=== PATIENT | female | born 1985 | race African-American/Black ===

== ENCOUNTER 2023-05-13 11:22 | Outpatient (OUT) | payer OTHER, SELFPAY ==
[2023-05-13 12:17] LABS: Estimated Average Glucose 189 mg/dL; Glycohemoglobin A1C 8.2 % (4.5-6.2)
== END 2023-05-13 11:23 ==
PROVIDERS: PCP Obstetrics & Gynecology; Visit Provider Obstetrics & Gynecology
DX: E11.628 Type 2 diabetes mellitus with other skin complications (principal)
CPT/HCPCS: 36415; 83036

== ENCOUNTER 2023-08-21 10:51 | Outpatient (OUT) | payer OTHER, SELFPAY ==
[2023-08-21 12:33] LABS: Hematocrit 37.4 % (36.0-48.0); Hemoglobin 12.4 g/dL (12.0-16.0); Mean Corpuscular HGB Conc 33.2 g/dL (29.9-35.2); Mean Corpuscular Volume 90.3 fL (81.0-99.0); Mean Platelet Volume 9.6 fL (9.5-13.5); Platelet Count 376 10^3/uL (150-450); Red Blood Count 4.14 10^6/uL (4.20-5.40); Red Cell Distribution Width 13.2 % (11.0-15.0); White Blood Count 11.2 10^3/uL (4.0-11.0)
[2023-08-21 12:39] LABS: Partial Thromboplastin Time 28.8 sec (22.3-36.2); Prothrombin Time 9.6 sec (9.0-11.6)
[2023-08-21 12:45] LABS: INR <0.93
[2023-08-21 12:52] LABS: Eosinophils Absolute Manual 0.11 10^3/uL (0.00-0.70); Monocytes Absolute Manual 0.89 10^3/uL (0.30-0.80); Segmented Neut Absolute Manual 6.16 10^3/uL (1.4-6.5)
[2023-08-21 12:53] LABS: Basophils Abs Manual 0.22 10^3/uL (0.00-0.10)
[2023-08-21 14:01] LABS: Estimated Average Glucose 177 mg/dL; Glycohemoglobin A1C 7.8 % (4.5-6.2)
[2023-08-21 14:11] LABS: Alanine Aminotransferase 25 U/L (14-59); Albumin Globulin Ratio 0.8; Albumin Level 3.4 g/dL (3.4-5.0); Alkaline Phosphatase 83 U/L (46-116); Anion Gap 16.6; Aspartate Amino Transferase 12 U/L (15-37); BUN Creatinine Ratio 18.8; Bilirubin Direct <0.1 mg/dL (0.0-0.2); Bilirubin Total <0.1 mg/dL (0.2-1.0); Carbon Dioxide 21.4 mmol/L (21.0-32.0); Chloride 103 mmol/L (98-107); Estimated GFR (African America >60 (>=60); Estimated GFR (Non-African Ame >60 (>=60); Globulin 4.1 g/dL; Glucose 140 mg/dL (74-106); Sodium 137 mmol/L (136-145); Total Protein 7.5 g/dL (6.4-8.2)
== END 2023-08-21 10:52 | disposition home or self-care (01) ==
PROVIDERS: PCP Physician Assistant; Visit Provider Obstetrics & Gynecology
DX: Z01.812 Encounter for preprocedural laboratory examination (principal); N92.1 Excessive and frequent menstruation with irregular cycle; R10.2 Pelvic and perineal pain; Z98.890 Other specified postprocedural states
CPT/HCPCS: 80048; 80076; 83036; 85027; 85610; 85730; 86850; 86900; 86901

== ENCOUNTER 2023-08-28 06:02 | Day surgery (SDC) | payer OTHER, SELFPAY ==
[2023-08-21 11:42] VITALS: BP 125/85; PULSE 87; RESP 16; TEMP 36.2; O2SAT 100; BMI 37.8
[2023-08-28] VITALS (21 sets, daily range): BP systolic 122–175; BP diastolic 67–140; PULSE 85–107; RESP 13–29; TEMP 36.2–37.1; O2SAT 92–98; BMI 36.1
[2023-08-28 06:14] LABS: Hematocrit 37.7 % (36.0-48.0); Hemoglobin 12.8 g/dL (12.0-16.0); Mean Corpuscular Volume 88.5 fL (81.0-99.0); Mean Platelet Volume 9.5 fL (9.5-13.5); Platelet Count 392 10^3/uL (150-450); Red Blood Count 4.26 10^6/uL (4.20-5.40); Red Cell Distribution Width 13.1 % (11.0-15.0); White Blood Count 11.3 10^3/uL (4.0-11.0)
[2023-08-28 06:26] LABS: Lymphocytes Absolute Manual 3.27 10^3/uL (1.20-3.80); Monocytes Absolute Manual 0.22 10^3/uL (0.30-0.80); Segmented Neut Absolute Manual 6.78 10^3/uL (1.4-6.5)
[2023-08-28 06:34] LABS: HCG Quantitative <1 mIU/mL
[2023-08-28 06:39] LABS: Glucometer 184 mg/dL (74-106)
[2023-08-28] MEDS: LACTATED RINGER'S SOLUTION 1,000 ML 50 ML IV (06:44)
[2023-08-28] MEDS: CEFAZOLIN SODIUM/DEXTROSE,ISO 2 GM/50 ML PIGGYBACK IV ×3 (07:28→19:59)
[2023-08-28] MEDS: LACTATED RINGER'S SOLUTION 1,000 ML 1000 ML IV (09:55)
--- NOTE | 2023-08-28 09:57 | P.ON_ITS ---
Brief Operative Note Date of procedure: 08/28/23 Pre-op diagnosis: menorrhagia, dysmenorrhea, dyspareunia, pelvic pain Post-op diagnosis: same as pre-op Procedure: NAME OF PROCEDURE: ? Robotic assisted laparoscopic hysterectomy with cystoscopy, bilateral salpingectomy PROCEDURE:? The patient was taken back to the operating room, where she was prepped and draped in the normal sterile fashion after being placed in the dorsal lithotomy position.? Patient?s anesthesia was found to be adequate.? Surgical timeout was performed using two patient identifiers.? SCDs were on and in place.? Two grams of Ancef were given prior to the surgery.? Sterile Weiss catheter was inserted.? Standard size VCare was secured to the uterine cervix and the surgeon changed gloves.? Attention then was turned to the patient's abdomen, where a supraumbilical incision was then made.? Two S retractors were used to identify the patient?s fascia.? The fascia was then tented up using Jorge clamps and the patient?s fascia was incised sharply.? Patient?s abdomen was identified and entered bluntly.? The patient had the trocar placed and a pneumoperitoneum was obtained.? Approximately 4 liters of CO2 gas was used.? The camera was then placed through the trocar.? At this time, two robot trocars were placed in the patient?s left and right side, two hand widths from the midline, and this was placed under direct visualization.? The patient?s tube on the right side was tented up and the vessel sealer was then used to come across the mesosalpinx, and this was carried down to the uterine ovarian ligament.? The vessel sealer was carried down serially to the broad ligament, to the area of the bladder flap, which was then created anteriorly, and the uterine arteries were skeletonized and sealed using the vessel sealer.? The colpotomy was made using the monopolar cautery on cut, and this was carried circumferentially, posteriorly to anteriorly, until the uterus was amputated.? The specimen was then removed intact through the vagina, without difficulty.? The vagina was then closed using two running V-Loc in a non-lock fashion.? The robot was undocked.? The abdomen was desufflated.? The skin defects were closed using 4-0 Vicryl.? Please note, the fascia was closed using 0 Vicryl.? Sponge, lap and needle counts were correct x2.? Patient was taken to recovery room in stable condition.? The patient was awakened by Anesthesia first.? Patient tolerated procedure well.?Please note cystoscopy was performed,with intact bladder and efflux from both ureters Anesthesia: ERIK Surgeon: Rigoberto Montano Dental Laboratory Manager: eYlena Duffy Estimated blood loss (mL): 200 Pathology: other (uterus and tubes) Condition: stable Disposition: PACU
--- NOTE | 2023-08-28 10:28 | PC.NURSE ---
Patient is snoring has to go to the bathtoom but refuses bedpan.
[2023-08-28] MEDS: HYDROMORPHONE HCL 0.5 MG/0.5 ML SYRINGE IV (10:32)
--- NOTE | 2023-08-28 10:45 | PC.NURSE ---
Anesthesia Dr. Valladares has checked on patient due to high blood pressure and is aware it remains high
--- NOTE | 2023-08-28 10:51 | PC.NURSE ---
147/10 best blood pressure so far post operation slowly inproving.
--- NOTE | 2023-08-28 12:07 | P.CN_ITS ---
Patient seen and examined. Reviewed chart, medical histroy and case d/w NELLIE Saenz. Agree with her treatment plan, documentation. Admitted for obs after hysterectomy. Drowsy and complaining of mild post op pain. BP erratic immediately post op but now fairly reasonable. She is Trulicity and Januvia for T2 DM. Will keep her on sliding scale insulin only. Hydralazine IV as needed for SBP > 160 Exam NAD, morbidly obese. CTA b/l , poor inspiratory effort. Neuro: AAOX 3, drowsy from anesthesia. non focal T2 DM : SSI while inpatient. Hold oral meds. Post op HTN : monitor, Hydralazine as needed. s/p hysterectomy: as per Primary team Consult Note: HPI Data of Consult Consult date: 08/28/23 (566) Requesting Physician: Rigoberto Montano DO Primary Care Provider: Asa Marques Consult Narrative Reason for consult: Post op medical management Narrative: This is a 38-year-old female patient with a past medical history as outlined below who was admitted to observation postoperatively by Dr. Montano after a robotic hysterectomy. We have been consulted for medical management of her diabetes and other chronic medical conditions. The patient is currently resting in bed having just returned from using the commode. She reports moderate abdominal discomfort, but otherwise denies chest pain, shortness of breath, nausea and vomiting or any other acute concerns. She is awake but somewhat somnolent postanesthesia. Vital signs are stable and she is on 1 L nasal cannula with nursing attempting to titrate O2 supplementation off postoperatively. cc:: CC: Rigoberto Montano DO Review of Systems ROS Status of ROS 10 or more systems reviewed and unremarkable except as noted in history and below [facility] Medical History (Updated 08/28/23 @ 13:59 by Letty Sanders NP) Bipolar disorder ?F31.9 - Bipolar disorder, unspecified (ICD-10) Carpal tunnel syndrome ?G56.00 - Carpal tunnel syndrome, unspecified upper limb (ICD-10) Diabetes ?E11.9 - Type 2 diabetes mellitus without complications (ICD-10) Fibromyalgia ?M79.7 - Fibromyalgia (ICD-10) GERD (gastroesophageal reflux disease) ?K21.9 - Gastro-esophageal reflux disease without esophagitis (ICD-10) High cholesterol ?E78.00 - Pure hypercholesterolemia, unspecified (ICD-10) Peripheral edema ?R60.9 - Edema, unspecified (ICD-10) Surgical History (Updated 08/28/23 @ 13:38 by Letty Sanders NP) History of cholecystectomy ?Z90.49 - Acquired absence of other specified parts of digestive tract (ICD- 10) History of colonoscopy ?Z98.890 - Other specified postprocedural states (ICD-10) History of dilation and curettage ?Z98.890 - Other specified postprocedural states (ICD-10) History of esophagogastroduodenoscopy (EGD) ?Z98.890 - Other specified postprocedural states (ICD-10) History of foot surgery ?Z98.890 - Other specified postprocedural states (ICD-10) History of laparoscopy ?Z98.890 - Other specified postprocedural states (ICD-10) History of tubal ligation ?Z98.51 - Tubal ligation status (ICD-10) Family History Other Family history of Alzheimer's disease Family history of COPD (chronic obstructive pulmonary disease) Family history of DVT Family history of Parkinson disease Family history of bleeding or clotting disorder Family history of brain cancer Family history of breast cancer Family history of diabetes mellitus Family history of heart disease Family history of hypertension Family history of lung cancer Social History Within the past year, how often did you have a drink containing alcohol: never Score interpretation: A score less than 3 is consistent with normal alcohol consumption. Smoking status: Current every day smoker What tobacco products do you use: cigarettes Pack-years instructions: Please document either packs per day or cigarettes per day in order for pack years to calculate correctly. If using both packs per day and cigarettes per day, please make sure that they denote the same thing. If they differ, pack- years will calculate based on packs per day. 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 Highest level of school completed/degree received: 9th grade Meds Home Medications and Allergies Home Medications Medication Instructions Recorded Confirmed Type acetaminophen 325 mg capsule 325 mg PO QID 08/21/23 08/28/23 History (Tylenol) albuterol sulfate 90 mcg/actuation 2 puff inhalation Q4H PRN 08/21/23 08/28/23 History aerosol inhaler bronchospasm atorvastatin 10 mg tablet 10 mg PO .evening 08/21/23 08/28/23 History dulaglutide 1.5 mg/0.5 mL 1.5 mg subcut QWEEK 08/21/23 08/28/23 History subcutaneous pen injector (Trulicity) fremanezumab-vfrm 225 mg/1.5 mL 225 mg subcut .monthly 08/21/23 08/28/23 History subcutaneous auto-injector (Ajovy) furosemide 20 mg tablet 20 mg PO QAM 08/21/23 08/28/23 History lidocaine 5 % topical patch 1 patch transdermal Q24H PRN back 08/21/23 08/28/23 History pain megestrol 20 mg tablet 20 mg PO .morning 08/21/23 08/28/23 History montelukast 10 mg tablet 10 mg PO .evening 08/21/23 08/28/23 History norethindrone (contraceptive) 0.35 0.35 mg PO DAILY 08/21/23 08/21/23 History mg tablet (Jencycla) omeprazole 40 mg capsule,delayed 40 mg PO BID 08/21/23 08/28/23 History release potassium chloride 20 mEq 20 meq PO DAILY 08/21/23 08/28/23 History tablet,extended release(part/cryst) risperidone 1 mg tablet 1 mg PO BID 08/21/23 08/28/23 History sitagliptin phosphate 25 mg tablet 25 mg PO DAILY 08/21/23 08/28/23 History (Januvia) sulfamethoxazole 400 1 tab PO BID 08/21/23 08/28/23 History mg-trimethoprim 80 mg tablet (Bactrim) Allergies Allergy/AdvReac Type Severity Reaction Status Date / Time ketorolac Allergy Intermediate Hives Verified 08/21/23 11:22 prednisone AdvReac Severe Irritable Verified 08/21/23 11:33 tramadol [From Ultram] AdvReac Severe Palpitation Verified 08/21/23 11:33 s Exam Constitutional Vital Signs, click to edit/add: Last Vital Signs Temp 98.4 F 08/28/23 11:10 Pulse 100 H 08/28/23 11:10 Resp 20 08/28/23 11:10 BP 122/67 08/28/23 11:10 Pulse Ox 94 L 08/28/23 11:10 O2 Del Method Room Air 08/28/23 11:10 O2 Flow Rate 3 08/28/23 11:02 Common normals: no apparent distress, oriented x3, alert and well nourished General appearance: cooperative Orientation/consciousness: Yes awake HENMT Common normals: normocephalic, head/scalp atraumatic, hearing grossly normal bilaterally, external ears normal, external nose normal and moist oral mucous membranes Head and scalp: normocephalic and atraumatic Face and sinus: normal facial exam Nose: external nose normal External ear: external ears normal Eye Common normals: PERRL, EOMs intact bilaterally, conjunctivae normal and no scleral icterus General eye: normal appearance of both eyes Alignment: alignment normal Eyelid: eyelids normal Conjunctiva: conjunctiva(e) normal Pupil: PERRL Neck & C-Spine Common normals: full ROM, supple and no JVD Chest Common normals: inspection of chest normal Chest: symmetrical chest wall rise Respiratory Common normals: normal respiratory effort, no retractions, no use of accessory muscles and clear to auscultation bilaterally Effort & inspection: able to speak in complete sentences Auscultation: clear to auscultation bilaterally Cardio Common normals: no JVD, regular rate, regular rhythm, S1 normal heart sound, S2 normal heart sound, no gallops, no clicks, no rub and peripheral pulses 2+ throughout Rate: regular rate Rhythm: regular rhythm Heart sounds: S1 normal, S2 normal and murmur (HSM 2/6) Peripheral pulses: pulses 2+ throughout GI Common normals: soft to palpation, no hepatosplenomegaly, no masses and no bruits Auscultation: hypoactive bowel sounds Palpation: soft, tender (Diffuse post-op tenderness) and no hepatosplenomegaly Bladder/kidney exam: bladder normal to palpation Bimanual exam- vagina & uterus: bladder normal to palpation Extremity Common normals: normal capillary refill General: normal exam except as noted and edema (Trace bilat insteps); no clubbing and no cyanosis Neuro [place] Coma Scale: GCS not evaluated Common normals: oriented x3, CN's II-XII intact bilaterally, moves all extremities, no focal motor deficits and no sensory deficits noted Sensorium/orientation: awake and alert Speech: speech normal Motor exam: strength 5/5 throughout Psych Common normals: mental status grossly normal, thought process normal, affect normal and activity/motor behavior normal Thought process: normal thought process Results Labs Labs: Short CBC 08/28/23 Range/Units 06:09 WBC 11.3 H (4.0-11.0) 10^3/uL Hgb 12.8 (12.0-16.0) g/dL Hct 37.7 (36.0-48.0) % Plt Count 392 (150-450) 10^3/uL Pulse Oximetry Attestation: I have reviewed the pertinent pulse oximetry results. Assessment and Plan Assessment and Plan (1) S/P hysterectomy: Assessment and Plan: ACUTE * Robotic assisted hysterectomy per Dr Montano earlier today * All post op orders including IVF, pain control, DVT prophylaxis, wound care deferred to the [facility] service * We have been consulted for medical management of the pt's chronic medical conditions * The pt is medically stable * If the pt is able to be weaned off of O2 supplementation and can urinate post operatively, she is medically stable for d/c once OK with the surgical team (2) Bipolar disorder: Assessment and Plan: CHRONIC * Continue home Risperidone BID and PRN Temazepam (3) Diabetes: Assessment and Plan: CHRONIC * Continue home Trulicity if injection is due while the pt is still in the hospital * ACHS glucometer checks w/ low dose SSI for glucose correction * CC diet, 1800kcal (4) GERD (gastroesophageal reflux disease): Assessment and Plan: CHRONIC * Continue home PPI (5) Peripheral edema: Assessment and Plan: CHRONIC * No known hx of CHF but pt takes lasix daily * Pt currently appears mildly dry in the post op setting * Hold home lasix and supplemental KCL replacement for now - plan to resume at d/c
[2023-08-28] MEDS: LACTATED RINGER'S SOLUTION 1,000 ML 125 ML IV ×2 (13:21→20:10)
[2023-08-28] MEDS: OMEPRAZOLE 40 MG CAPSULE.DR PO (15:02)
[2023-08-28] MEDS: OXYCODONE HCL/ACETAMINOPHEN 5MG/325MG 2 TAB PO ×2 (15:02→21:20)
[2023-08-28 17:29] LABS: Glucometer 291 mg/dL (74-106)
[2023-08-28] MEDS: INSULIN ASPART 300 UNIT/3 ML PEN SUBQ (17:31)
--- NOTE | 2023-08-28 20:22 | PC.NURSE ---
Pt refused all pm meds except for cefazolin, singulair and PRN pain meds. Pt agreed to have blood sugar checked but did not want any insulin coverage. Educated patient on importance of medications and insulin coverage if needed. Pt stated she will take all meds when she goes home tomorrow.
[2023-08-28] MEDS: MONTELUKAST SODIUM 10 MG TABLET PO (21:20)
[2023-08-28 21:33] LABS: Glucometer 232 mg/dL (74-106)
[2023-08-29 03:52] VITALS: O2SAT 100
[2023-08-29] MEDS: OXYCODONE HCL/ACETAMINOPHEN 5MG/325MG 2 TAB PO (04:28)
[2023-08-29 04:50] LABS: Basophils Percent Auto 0.2 % (0.2-2.0); Eosinophils Percent Auto 0.1 % (0.9-7.0); Hematocrit 33.8 % (36.0-48.0); Hemoglobin 11.2 g/dL (12.0-16.0); Immature Granulocytes Abs Auto 0.06 10^3/uL (0.00-0.03); Immature Granulocytes Pct Auto 0.4 % (0.0-0.5); Lymphocytes Absolute Auto 3.4 10^3/uL (1.2-3.8); Lymphocytes Percent Auto 21.8 % (20.5-60.0); Mean Corpuscular HGB Conc 33.1 g/dL (29.9-35.2); Mean Corpuscular Hemoglobin 29.6 pg (26.7-34.0); Mean Corpuscular Volume 89.4 fL (81.0-99.0); Mean Platelet Volume 9.8 fL (9.5-13.5); Monocytes Absolute Auto 0.8 10^3/uL (0.3-0.8); Monocytes Percent Auto 5.3 % (1.7-12.0); Neutrophils Absolute Auto 11.2 10^3/uL (1.4-6.5); Neutrophils Percent Auto 72.2 % (43.0-75.0); Platelet Count 341 10^3/uL (150-450); Red Blood Count 3.78 10^6/uL (4.20-5.40); Red Cell Distribution Width 12.7 % (11.0-15.0); White Blood Count 15.5 10^3/uL (4.0-11.0)
[2023-08-29 05:15] VITALS: BP 146/85; PULSE 95; RESP 18; TEMP 36.9; O2SAT 95
== END 2023-08-29 06:50 | disposition home or self-care (01) ==
LOC: SURGOUT 09:27 → MS 11:07
PROVIDERS: PCP Physician Assistant; Visit Provider Obstetrics & Gynecology
PROC: (CPT 00840; principal; 2023-08-28 07:30)
DX: N92.1 Excessive and frequent menstruation with irregular cycle (principal); R10.2 Pelvic and perineal pain; Z98.890 Other specified postprocedural states; F41.9 Anxiety disorder, unspecified; J45.909 Unspecified asthma, uncomplicated; F31.9 Bipolar disorder, unspecified; E11.42 Type 2 diabetes mellitus with diabetic polyneuropathy; E78.00 Pure hypercholesterolemia, unspecified; M79.7 Fibromyalgia; Z79.84 Long term (current) use of oral hypoglycemic drugs; Z79.899 Other long term (current) drug therapy; I10 Essential (primary) hypertension; E07.9 Disorder of thyroid, unspecified; F17.210 Nicotine dependence, cigarettes, uncomplicated; Z90.49 Acquired absence of other specified parts of digestive tract; Z98.51 Tubal ligation status; N93.9 Abnormal uterine and vaginal bleeding, unspecified; Z68.36 Body mass index [BMI] 36.0-36.9, adult; Z79.85 Long-term (current) use of injectable non-insulin antidiabetic drugs; E66.01 Morbid (severe) obesity due to excess calories; R60.0 Localized edema; N94.6 Dysmenorrhea, unspecified; N94.10 Unspecified dyspareunia; N80.03 Adenomyosis of the uterus; D25.9 Leiomyoma of uterus, unspecified
CPT/HCPCS: 00840; 58571; 36415; 82948; 84702; 85025; 85027; 88307; 94667; 94761; J1170; J2704

== ENCOUNTER 2024-07-02 08:29 | Outpatient (OUT) | payer OTHER, SELFPAY ==
--- NOTE | 2024-07-02 08:48 | ECG_ITS ---
[facility] Test Date: 2024-07-02 Pat Name: GARY VIGIL Department: Room: - Gender: Female Safety Aide: : 1985 Requested By: OMERO REAL Order Number: [id number] Reading MD: JESUS BAUGH Measurements Intervals [place] Rate: 73 P: 67 [place]: 176 QRS: 55 QRSD: 89 T: -18 QT: 362 QTc: 400 Interpretive Statements SINUS RHYTHM Chronic ST/T wave changes inferiorly Compared to ECG 08/05/2020 09:08:18 No significant change Electronically Signed On 07-02-2024 21:17:20 EDT by JESUS BAUGH
--- NOTE | 2024-07-02 09:36 | PM.PRESUREVA ---
History of Present Illness History of Present Illness Chief complaint: dermoid cyst Narrative: Patient presents for preadmission testing. The patient states she had a hysterectomy done in August last year, but has been having abdominal pain ever since. She had a pelvic ultrasound which demonstrated a right ovarian cyst. The patient states her episodes of pain wax and wane, and today she is not having any discomfort. Review of Systems ROS Narrative REVIEW OF SYSTEMS: Negative except as stated in HPI, ten or more systems reviewed. Constitutional: No fever, chills, weakness ENT: No sore throat or epistaxis Cardiovascular: No edema, chest pain, palpitations, or activity intolerance Respiratory: No shortness of breath, cough, or wheezing Musculoskeletal: No joint pain or swelling Genitourinary: No dysuria or hematuria Neurological: No numbness, tingling, weakness, or headache Psychiatric: No mood changes [facility] Medical History (Updated 07/02/24 @ 09:43 by Afshan Toscano NP) Neuropathy ?G62.9 - Polyneuropathy, unspecified (ICD-10) IBS (irritable bowel syndrome) ?K58.9 - Irritable bowel syndrome without diarrhea (ICD-10) Hypercholesteremia ?E78.00 - Pure hypercholesterolemia, unspecified (ICD-10) Migraine ?G43.909 - Migraine, unspecified, not intractable, without status migrainosus (ICD-10) Depression ?F32.A - Depression, unspecified (ICD-10) Anxiety ?F41.9 - Anxiety disorder, unspecified (ICD-10) Anemia ?D64.9 - Anemia, unspecified (ICD-10) Pelvic pain ?R10.2 - Pelvic and perineal pain (ICD-10) Dermoid cyst of right ovary (04/2024) ?D27.0 - Benign neoplasm of right ovary (ICD-10) Dermoid cyst ?D36.9 - Benign neoplasm, unspecified site (ICD-10) Hypokalemia ?E87.6 - Hypokalemia (ICD-10) Hypertension ?I10 - Essential (primary) hypertension (ICD-10) Dyspnea on exertion ?R06.09 - Other forms of dyspnea (ICD-10) Peripheral edema ?R60.9 - Edema, unspecified (ICD-10) Bipolar disorder ?F31.9 - Bipolar disorder, unspecified (ICD-10) Fibromyalgia ?M79.7 - Fibromyalgia (ICD-10) Carpal tunnel syndrome ?G56.00 - Carpal tunnel syndrome, unspecified upper limb (ICD-10) GERD (gastroesophageal reflux disease) ?K21.9 - Gastro-esophageal reflux disease without esophagitis (ICD-10) High cholesterol ?E78.00 - Pure hypercholesterolemia, unspecified (ICD-10) Diabetes ?E11.9 - Type 2 diabetes mellitus without complications (ICD-10) Surgical History (Updated 07/02/24 @ 09:22 by Afshan Toscano NP) H/O foot surgery (05/01/24) ?Z98.890 - Other specified postprocedural states (ICD-10) History of hysterectomy (08/28/23) ?Z90.710 - Acquired absence of both cervix and uterus (ICD-10) History of laparoscopy ?Z98.890 - Other specified postprocedural states (ICD-10) History of tubal ligation ?Z98.51 - Tubal ligation status (ICD-10) History of dilation and curettage ?Z98.890 - Other specified postprocedural states (ICD-10) History of foot surgery ?Z98.890 - Other specified postprocedural states (ICD-10) History of esophagogastroduodenoscopy (EGD) ?Z98.890 - Other specified postprocedural states (ICD-10) History of colonoscopy ?Z98.890 - Other specified postprocedural states (ICD-10) History of cholecystectomy ?Z90.49 - Acquired absence of other specified parts of digestive tract (ICD-10) Family History Other Family history of Alzheimer's disease Family history of COPD (chronic obstructive pulmonary disease) Family history of DVT Family history of Parkinson disease Family history of bleeding or clotting disorder Family history of brain cancer Family history of breast cancer Family history of diabetes mellitus Family history of heart disease Family history of hypertension Family history of lung cancer Social History Within the past year, how often did you have a drink containing alcohol: never Score interpretation: A score less than 3 is consistent with normal alcohol consumption. 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 Highest level of school completed/degree received: 9th grade Meds Home Medications and Allergies Home Medications ?Medication ?Instructions ?Recorded ?Confirmed ?Type acetaminophen 325 mg capsule 325 mg PO QID 08/21/23 07/02/24 History (Tylenol) albuterol sulfate 90 mcg/actuation 2 puff inhalation Q4H PRN 08/21/23 07/02/24 History aerosol inhaler bronchospasm atorvastatin 10 mg tablet 10 mg PO .evening 08/21/23 07/02/24 History fremanezumab-vfrm 225 mg/1.5 mL 225 mg subcut .monthly 08/21/23 07/02/24 History subcutaneous auto-injector (Ajovy) furosemide 20 mg tablet 20 mg PO QAM 08/21/23 07/02/24 History lidocaine 5 % topical patch 1 patch transdermal Q24H PRN back 08/21/23 07/02/24 History pain montelukast 10 mg tablet 10 mg PO .evening 08/21/23 07/02/24 History omeprazole 40 mg capsule,delayed 40 mg PO BID 08/21/23 07/02/24 History release potassium chloride 20 mEq 20 meq PO DAILY 08/21/23 07/02/24 History tablet,extended release(part/cryst) risperidone 1 mg tablet 1 mg PO BID 08/21/23 07/02/24 History cariprazine 3 mg capsule (Vraylar) 3 mg PO QPM 07/02/24 07/02/24 History duloxetine 60 mg capsule,delayed 60 mg PO QPM 07/02/24 07/02/24 History release fluticasone propionate 110 2 inh inhalation BID 07/02/24 07/02/24 History mcg/actuation HFA aerosol inhaler loratadine 10 mg tablet 10 mg PO DAILY 07/02/24 07/02/24 History semaglutide 0.25 mg or 0.5 mg (2 0.5 mg subcut QWEEK 07/02/24 07/02/24 History mg/3 mL) subcutaneous pen injector (Ozempic) sitagliptin phosphate 100 mg 100 mg PO DAILY 07/02/24 07/02/24 History tablet (Januvia) spironolactone 50 mg tablet 50 mg PO DAILY 07/02/24 07/02/24 History Allergies Allergy/AdvReac Type Severity Reaction Status Date / Time ketorolac Allergy Intermediate Hives Verified 07/02/24 09:12 prednisone AdvReac Severe Irritable Verified 07/02/24 09:12 tramadol [From Ultram] AdvReac Severe Palpitation Verified 07/02/24 09:12 s Exam Narrative Exam Narrative: Constitutional: Awake, alert, comfortable, well-appearing, nontoxic, interactive, vital signs as charted Head: Normocephalic, atraumatic Neck: Supple, normal appearance, normal range of motion, no meningeal signs, no lymphadenopathy Respiratory: No respiratory distress, breath sounds clear Cardiovascular: Regular rate and rhythm, strong and regular heart tones Abdomen: Nontender, normal bowel sounds, soft, no CVA tenderness Musculoskeletal: Normal gait, no swelling or edema Skin: No rashes or induration, no lesions, only visible skin inspected Neuro: No neurological deficits, normal sensation Psychiatric: Oriented ?3, normal affect Assessment and Plan Assessment and Plan (1) Dermoid cyst of right ovary: Onset Date: 04/2024 (2) Pelvic pain: Plan Robot assisted diagnostic laparoscopy, right oophorectomy, possible SACHIN, possible FOE, exploratory laparotomy, possible bilateral oophorectomy, cystoscopy, ureteral stent placement scheduled with Dr. Montano and Dr. Gonzalez July 16, 2024.
[2024-07-02 10:58] LABS: Anion Gap 17.1; BUN Creatinine Ratio 11.6; Calcium 9.1 mg/dL (8.5-10.1); Carbon Dioxide 20.2 mmol/L (21.0-32.0); Chloride 103 mmol/L (98-107); Estimated GFR (African America >60 (>=60); Estimated GFR (Non-African Ame >60 (>=60); Glucose 231 mg/dL (74-106); Potassium 3.3 mmol/L (3.5-5.1); Sodium 137 mmol/L (136-145)
== END 2024-07-02 08:30 | disposition home or self-care (01) ==
PROVIDERS: Visit Provider Obstetrics & Gynecology
DX: Z01.810 Encounter for preprocedural cardiovascular examination (principal); Z01.812 Encounter for preprocedural laboratory examination; Z01.818 Encounter for other preprocedural examination; D36.9 Benign neoplasm, unspecified site; R10.2 Pelvic and perineal pain
CPT/HCPCS: 36415; 80048; 93005; G0463

== ENCOUNTER 2024-07-16 06:06 | Day surgery (SDC) | payer OTHER, SELFPAY ==
[2024-07-02 09:32] VITALS: BP 127/80; PULSE 78; TEMP 36.1; O2SAT 100; BMI 36.5
[2024-07-16] VITALS (16 sets, daily range): BP systolic 122–149; BP diastolic 80–104; PULSE 80–93; TEMP 35.7–36.4; O2SAT 91–100; BMI 36.5
--- OUTSIDE RECORDS SUMMARY | 2024-07-16 06:13 | XMS_ITS | CCD ---
Author Organization [facility] Care Team Providers Care Wood Processing Worker Name Role Phone NON STAFF Primary Care Provider DO Robert Singh Emergency Provider IVONE Marques Primary Care Provider IVONE Andrews Emergency Provider Corrina Escalona MD, Jamia Bueno Unavailable Angelo, [facility]- Radha Seay Emergency Provider IVONE Marques Attending Provider [phone] MD Aleksandr Viera Attending Provider IVONE Marques Primary Care Provider DO Mk Parker Emergency Provider IVONE Marques Primary Care Provider Rigoberto Montano Attending Provider Corrina Escalona MD, [facility] Unavailable CASIE Rondon Emergency Provider IVONE Marques Attending Provider IVONE Andrews Emergency Provider IVONE Marques Primary Care Provider MD lAeksandr Viera Attending Provider IVONE Marques Primary Care Provider CASIE Laguna Emergency Provider IVONE Marques Primary Care Provider [facility], DO Isidoro M Emergency Provider [phone] IVONE Marques Primary Care Provider CASIE Laguna Emergency Provider Tuva, DO Isidoro M Emergency Provider Rigoberto Montano Attending Provider IVONE Marques Primary Care Provider [facility], DO Isidoro M Emergency Provider [phone] [facility] Provider DO Aron Trevino Emergency Provider Ga Moran Unavailable Unavailable Unavailable IVONE Marques Primary Care Provider [facility], DO Chaudhry M Emergency Provider [facility]oberto Montano [facility] Emergency Provider DO Aron Trevino Emergency Provider MD Krystal Keller Attending Provider Joe Meek Attending Unavailable Krystal Koehler Attending Unavailable Krystal Koehler Referring Unavailable FAMILY, HEALTH SERVICES Primary Care Unavaila ble ADDIE ., DR JAMIL Attending Unavailable ADDIE ., DR JAMIL Admitting Unavailable ADDIE ., DR JAMIL Consulting Unavailable FAMILY, HEALTH SERVICES Primary Care Unavaila ble ADDIE ., DR JAMIL Attending Unavailable ADDIE ., DR JAMIL Admitting Unavailable ADDIE ., DR JAMIL Admitting Unavailable FAMILY, HEALTH SERVICES Primary Care Unavaila ble ADDIE ., DR JAMIL Attending Unavailable ADDIE ., DR JAMIL Consulting Unavailable ADDIE ., DR JAMIL Consulting Unavailable FAMILY, HEALTH SERVICES Primary Care Unavaila ble ADDIE ., DR JAMIL Attending Unavailable ADDIE ., DR JAMIL Admitting Unavailable ADDIE ., DR JAMIL Consulting Unavailable FAMILY, HEALTH SERVICES Primary Care Unavaila ble ADDIE ., DR JAMIL Attending Unavailable ADDIE ., DR JAMIL Admitting Unavailable ADDIE ., DR JAMIL Admitting Unavailable MISC, DR SIFUENTES Primary Care Unavailable ADDIE ., DR JAMIL Attending Unavailable ADDIE ., DR JAMIL Admitting Unavailable MISC, DR SIFUENTES Primary Care Unavailable ADDIE ., DR JAMIL Attending Unavailable ADDIE ., DR JAMIL Admitting Unavailable ADDIE ., DR JAMIL Attending Unavailable MISC, DR SIFUENTES Primary Care Unavailable ADDIE ., DR JAMIL Attending Unavailable ADDIE ., DR JAMIL Admitting Unavailable FAMILY, HEALTH SERVICES Primary Care Unavaila ble FAMILY, HEALTH SERVICES Primary Care Unavaila ble GA MARQUES Consulting Unavailable SHELLI, GA Attending Unavailable GA MARQUES Admitting Unavailable ADDIE ., DR JAMIL Admitting Unavailable MISC, DR SIFUENTES Primary Care Unavailable ADDIE ., DR JAMIL Attending Unavailable ADDIE ., DR JAMIL Consulting Unavailable IVONE Marques Primary Care Provider IVONE Andrews Emergency Provider [phone] Rodo, Dr. Rice Attending Unavailable Rodo, Dr. Rice Referring Unavailable Koehler, Dr. Rice Attending Unavailable Koehler, Dr. Rice Attending Unavailable Koehler, Dr. Rice Attending Unavailable CASIE Rondon Emergency Provider IVONE Marques Primary Care Provider CASIE Rondon Emergency Provider DO Isidoro Moya Emergency Provider Jamia Johansen MD Unavailable [phone] IVONE Marques Primary Care Provider CASIE Rondon Emergency Provider [phone] IVONE Marques Attending Provider [phone] Ga Marques PA-C Primary Care Provider Rigoberto Montano DO Unavailable [phone] Rigoberto Montano Attending Provider NO FAMILY, PHYSICIAN Primary Care Provider Unava ilable IVONE Andrews Miquel J Emergency Provider [phone] NO FAMILY, PHYSICIAN Primary Care Provider Unava ilable Rigoberto Montano Attending Provider NON STAFF Primary Care Provider Unavailjenni e Ga Marques Primary Care Unavailable Miquel Andrews Admitting Unavailable Miquel Andrews Attending Unavailable Ga Marques Primary Care Unavailable Isidoro Moya Admitting Unavailable Isidoro Moya Attending Unavailable Hanane Rondon Admitting Unavailable Ga Marques Primary Care Unavailable SafdamioneHanane Attending Unavailable Safdamione, Hanane N Admitting Unavailable Ga Marques Primary Care Unavailable Alcon, Hanane Mathews Attending Unavailable Miquel Andrews Attending Unavailable Miquel Andrews Admitting Unavailable NO FAMILY, PHYSICIAN Primary Care Unavailable Ga Marques Attending Unavailable Ga Marques Admitting Unavailable Ga Marques Primary Care Unavailable NO FAMILY, PHYSICIAN Primary Care Unavailable Rigoberto Montano Attending Unavailable Rigoberto Montano Admitting Unavailable Rigoberto Montano Admitting Unavailable NON STAFF Primary Care Unavailable Rigoberto Montano Attending Unavailable Ga Marques Primary Care Unavailable Miquel Andrews Admitting Unavailable Miquel Andrews Attending Unavailable ARMIN CARBAJAL Primary Care Unavailable RIGOBERTO MONTANO Attending Unavailable ADDIE, RIGOBERTO Attending Unavailable RIGOBERTO MONTANO Attending Unavailable RIGOBERTO MONTANO Attending Unavailable KRYSTAL KOEHLER Attending Unavailable GA MARQUES Primary Care Unavailable KRYSTAL KOEHLER Attending Unavailable KRYSTAL KOEHLER Referring Unavailable GA MARQUES Primary Care Unavailable EULALIA FUENTES Attending Unavailable EULALIA FUENTES Referring Unavailable EULALIA FUENTES Attending Unavailable EULALIA FUENTES Attending Unavailable SELF Referring Unavailable EULALIA FUENTES Attending Unavailable EULALIA FUENTES Referring Unavailable EULALIA FUENTES Attending Unavailable KAVITHA CANTOR Referring Unavailable EULALIA FUENTES Attending Unavailable SELF Referring Unavailable EULALIA FUENTES Attending Unavailable SELF Referring Unavailable EULALIA FUENTES Attending Unavailable EULALIA FUENTES Referring Unavailable SEVERIANO VIRK Referring Unavailable EULALIA FUENTES Attending Unavailable Allergies Allergy Classification Reported Allergen(s) Allergy Type Date of Onset Reaction(s) Facility Corticosteroids (2 sources) predniSONE Drug Allergy 1 Other: See Comments [facility] NSAIDs (2 sources) Ketorolac Drug Allergy 0 Hives [facility] Opioid Agonists (2 sources) traMADol Drug Allergy 0 Other: See Comments [facility] (20 sources) Ketorolac; Translations: [ketorolac] Drug Allergy 0 Hives [facility] (20 sources) predniSONE; Translations: [prednisone] Drug Allergy 1 Other: See Comments, Hives, Other, Unknown [facility] (20 sources) traMADol; Translations: [tramadol] Drug Allergy 0 Other: See Comments, Anaphylaxis, Other, Unknown [facility] (1 source) Ketorolac Drug Allergy [facility] Medications Current Medications Medication Drug Class(es) Dates Sig (Normalized) Sig (Original) acetaminophen 500 mg oral tablet (20 sources) Start: 10-23-2023 take 500 mg by mouth every six hours Acetaminophen Active 500 MG PO Q6H October 23, 2023 1:00am Start: 01-09-2022 take 2 tablets by mo uth every eight hours acetaminophen (TYLENOL) 500 mg tablet take 2 tablets by mouth every 8 hours if needed 0 01/09/2022 Active Comment on above: take 2 tablets by mo uth every 8 hours if needed acetaminophen 325 mg / oxyCODONE hydrochloride 5 mg oral tablet (1 source) Opioid Agonist Start: 05-01-20 24 End: 05-06-20 24 take 1 tablet by mouth every six hours as needed for pain oxyCODONE-acetaminop hen (PERCOCET) 5-325 mg tablet Indications: pain Take 1 tablet by mouth every 6 hours as needed for pain for up to 5 days. 20 tablet 0 05/01/2024 05/06/2024 Active amitriptyline hydrochloride 50 mg oral tablet (20 sources) Tricyclic Antidepressant Start: 10-16-20 21 take 1 tablet by mouth once daily at bedtime amitriptyline (ELAVIL) 50 mg tablet Take 50 mg by mouth daily at bedtime. 0 10/16/2021 Active Comment on above: Take 50 mg by mouth daily at bedtime. atorvastatin (13 sources) HMG-CoA Reductase Inhibitor atorvastatin calcium (ATORVASTATIN ORAL) Take by mouth once daily. 0 Active cariprazine 4.5 mg oral capsule (20 sources) Atypical Antipsychotic Start: 10-17-20 21 take 1 capsule by mouth once daily VRAYLAR 4.5 mg capsule take 1 take by mouth once daily 0 10/17/2021 Active Comment on above: take 1 take by mouth once daily cefadroxil 500 mg oral capsule (3 sources) Cephalosporin Antibacterial Start: 03-17-20 End: 03-24-20 take 1 capsule by mouth twice daily cefADROxil (DURICEF) 500 mg capsule Take 1 capsule by mouth two times a day for 7 days. 14 capsule 0 03/17/2024 03/24/2024 Active cephalexin 500 mg oral capsule (20 sources) Cephalosporin Antibacterial Start: 10-23-20 take 500 mg by mouth three times daily Cephalexin Active 500 MG PO Three times daily 14 06October 23, 2023 1:00am Start: 07-01-2023 End: 10-23-2023 take 500 mg by mouth every eight hours Cephalexin Discontinued 500 MG PO Q8H 30 July 01, 2023 12:00am October 23, 2023 8:16pm Start: 08-03-2022 End: 01-04-2023 take 500 mg by mouth every eight hours Cephalexin Discontinued 500 MG PO Q8H 30 August 03, 2022 12:00am January 04, 2023 2:35pm citalopram 20 mg oral tablet (20 sources) Serotonin Reuptake Inhibitor Start: 10-16-2021 take 1 tablet by mouth once daily at bedtime citalopram (CELEXA) 20 mg tablet Take 20 mg by mouth daily at bedtime. 0 10/16/2021 Active Comment on above: Take 20 mg by mouth daily at bedtime. clindamycin 150 mg oral capsule (20 sources) Lincosamide Antibacterial Start: 04-05-2024 take 300 mg by mouth every six hours Clindamycin Hcl Active 300 MG PO Q6H 80 April 05, 2024 12:00am Start: 02-20-2022 End: 03-08-2022 take 300 mg by mouth every six hours Clindamycin Hcl Discontinued 300 MG PO Q6H 80 February 20, 2022 12:00am March 08, 2022 10:50am doxycycline hyclate 100 mg oral tablet (20 sources) Tetracycline-class Drug Start: 01-09-2022 take 1 tablet by mouth twice daily doxycycline (VIBRA-TABS) 100 mg tablet take 1 tablet by mouth twice a day for 10 days 0 01/09/2022 Active Comment on above: take 1 tablet by rach th twice a day for 10 days 0.5 ml dulaglutide 3 mg/ml auto-injector (20 sources) GLP-1 Receptor Agonist Start: 10-23-2023 dulaglutide (TRULICITY) 1.5 mg/0.5 mL pen injector Inject 1.5 mg subcutaneously. 0 10/23/2023 Active inject 1.5 mg by sub cutaneous injection every week dulaglutide (Trulicity) 1.5 mg/0.5 mL pe n injector injection Inject 1.5 mg under the skin 1 (one) time per week. Active inject 1 [IU] by sub cutaneous injection every week Trulicity 1.5 MG/0.5ML Subcutaneous Solution Pen-injector INJECT 1 UNIT Weekly Quantity: 0 Refills: 0 Ordered: 11-Feb-2023 DO Active 24 hr etodolac 500 mg extended release oral tablet (20 sources) Nonsteroidal Anti-inflammatory Drug Start: 10-20-2021 take 1 tablet by mouth once daily as needed for pain etodolac (LODINE-XL) 500 mg 24 hr tablet take 1 tablet by mouth once daily NEEDED FOR PAIN with food 0 10/20/2021 Active Comment on above: take 1 tablet by rach once daily NEEDED FOR PAIN with food 120 actuat fluticasone propionate 0.11 mg/actuat metered dose inhaler (20 sources) Corticosteroid Start: 01-11-2022 take 2 puff(s) by mouth twice daily FLOVENT HFA 110 mcg/actuation inhaler inhale 2 puffs by mouth and INTO THE LUNGS twice a day 0 01/11/2022 Active Start: 01-10-2022 take 1 spray(s) nasa l route twice daily fluticasone (FLONASE) 50 mcg/actuation nasal spray instill 1 spray into each nostril twice a day 0 01/10/2022 Active take 1 puff(s) by mo [facility] twice daily fluticasone (Flovent HFA) 110 mcg/actuation inhaler Inhale 1 puff 2 times a day. Rinse mouth with water after use to reduce aftertaste and incidence of candidiasis. Do not swallow. Active take 2 puff(s) by in halation twice daily Flovent HFA 110 MCG/ACT Inhalation Aerosol INHALE 2 PUFFS TWICE DAILY. Quantity: 0 Refills: 0 Ordered: 11-Feb-2023 DO Active Comment on above: inhale 2 puffs by mo [facility] and INTO THE LUNGS twice a day instill 1 spray into each nostril twice a day 1.5 ml fremanezumab-vfrm 150 mg/ml prefilled syringe (20 sources) Start: 03-08-2022 Fremanezumab-Vfrm (Ajovy Autoinjector) 225 mg/1.5 mL auto-injector Active MG SUBCUT March 08, 2022 10:50am Start: 03-08-2022 Fremanezumab-V frm (Ajovy Autoinjector) 225 mg/1.5 mL auto-injector Active 225 MG SUBCUT every month March 08, 2022 12:00am Start: 01-24-2022 AJOVY AUTOINJE CTOR 225 mg/1.5 mL auto-injector inject subcutaneously as directed 0 01/24/2022 Active fremanezumab (Aj ovy Autoinjector) 225 mg/1.5 mL auto-injector Inject 1 Pen (225 mg) under the skin every 30 (thirty) days. Active Ajovy 225 MG/1.5 ML Subcutaneous Solution Auto-injector once monthly Quantity: 0 Refills: 0 Ordered: 11-Feb-2023 DO Active Comment on above: inject subcutaneousl y as directed furosemide 20 mg oral tablet (20 sources) Loop Diuretic Start: 3 End: take 1 tablet by mouth once daily furosemide (Lasix) 20 mg tablet Indications: Primary hypertension Take 1 tablet (20 mg) by mouth once daily. 90 tablet 3 03/23/2024 03/23/2025 Active Start: 03-08-2022 Furosemide Act johnny MG TABLET March 08, 2022 10:50am Start: 01-10-2022 take 1 tablet by rach th once daily furosemide (LASIX) 40 mg tablet take 1 tablet by mouth once daily if needed for SWELLING 0 01/10/2022 Active Comment on above: take 1 tablet by rach th once daily if needed for SWELLING loratadine 10 mg oral tablet (20 sources) Start: 01-11-2022 take 1 tablet by mouth once daily loratadine (CLARITIN) 10 mg tablet Take 10 mg by mouth once daily. 0 01/11/2022 Active take 1 tablet by mouth once leti y loratadine (Claritin Reditabs) 10 mg disintegrating tablet Take 1 tablet (10 mg) by mouth once daily. Active take 1 capsule by mouth once ayah ly Claritin 10 MG Oral Capsule TAKE 1 CAPSULE Daily Quantity: 0 Refills: 0 Ordered: 11-Feb-2023 DO Active Comment on above: Take 10 mg by mouth once daily. metFORMIN hydrochloride 1000 mg oral tablet (20 sources) Biguanide Start: 03-08-2022 Metformin Active MG TABLET March 08, 2022 10:50am Start: 01-09-2022 End: 01-03-2024 take 1000 mg by mouth twice daily Metformin Discontinued 1000 MG PO Twice daily March 08, 2022 12:00am October 23, 2023 8:16pm take 1 tablet by rach th once daily metFORMIN HCl - 1000 MG Oral Tablet TAKE 1 TABLET EVERY 12 HOURS DAILY. Quantity: 0 Refills: 0 Ordered: 11-Feb-2023 DO Active Comment on above: Take 1,000 mg by rach th twice daily with meals. montelukast 10 mg oral tablet (20 sources) Leukotriene Receptor Antagonist Start: 03-08-2022 Montelukast Active MG TABLET March 08, 2022 10:50am Start: 04-13-2020 montelukast (S INGULAIR) 10 mg tablet Take 10 mg by mouth. 0 04/13/2020 Active Comment on above: Take 10 mg by mouth. mupirocin 0.02 mg/mg topical ointment (20 sources) RNA Synthetase Inhibitor Antibacterial Start: 4 mupirocin (BACTROBAN) 2 % ointment Apply 1 application to affected area two times a day. 22 g 3 05/20/2024 Active Comment on above: Apply 1 application to affected area two times a day. naproxen 500 mg oral tablet (20 sources) Nonsteroidal Anti-inflammatory Drug Start: 3 take 1 tablet by mouth twice daily Naproxen (Naprosyn) 500 mg tablet Active 500 MG PO Twice daily October 23, 2023 1:00am Start: 09-21-2022 End: 01-13-2023 take 1 tablet by mouth twice daily Naproxen (Naprosyn) 500 mg tablet Discontinued 500 MG PO Twice daily September 21, 2022 12:00am January 13, 2023 2:48am Start: 06-29-2022 End: 09-13-2022 take 1 tablet by mouth twice daily Naproxen (Naprosyn) 500 mg tablet Discontinued 500 MG PO Twice daily June 29, 2022 12:00am September 13, 2022 9:21am Start: 03-08-2022 End: 05-11-2022 take 500 mg by mouth twice daily at mealtime Naproxen Discontinued 500 MG PO Twice daily March 08, 2022 12:00am May 11, 2022 10:31am administer with food or milk omeprazole 20 mg delayed release oral capsule (20 sources) Proton Pump Inhibitor Start: 10-16-2021 take 1 capsule by mouth once daily omeprazole (PRILOSEC) 20 mg capsule Take 20 mg by mouth once daily. 0 10/16/2021 Active take 1 tablet by rach th once daily before mealtime omeprazole OTC (PriLOSEC OTC) 20 mg EC tablet Take 1 tablet (20 mg) by mouth once daily in the morning. Take before meals. Do not crush, chew, or split. Active Comment on above: Take 20 mg by mouth once daily. microencapsulated potassium chloride 20 meq extended release oral tablet (20 sources) Start: 01-10-2022 End: 03-23-2025 potassium chloride ER (K-DUR, KLOR-CON) 20 mEq tablet Take 20 mEq by mouth. 0 01/10/2022 Active take 1 tablet by mouth once leti y Potassium Chloride ER 20 MEQ Oral Tablet Extended Release Take 1 tablet daily Quantity: 90 Refills: 3 Ordered: 11-Feb-2023 DO Active Comment on above: Take 20 mEq by mouth . prazosin 5 mg oral capsule (20 sources) alpha-Adrenergic Emmett Start: 10-16-2021 take 1 capsule by mouth once daily prazosin (MINIPRESS) 5 mg cap Take 5 mg by mouth once daily. 0 10/16/2021 Active Comment on above: Take 5 mg by mouth o nce daily. rizatriptan 5 mg oral tablet (20 sources) Serotonin-1b and Serotonin-1d Receptor Agonist Start: 03-08-2022 Rizatriptan Active MG TABLET March 08, 2022 10:50am Start: 02-07-2022 rizatriptan (M AXALT) 5 mg tablet take 1 tablet by mouth AT ONSET OF HEADACHE MAY TAKE A SECOND TAB... (REFER TO PRESCRIPTION NOTES). 0 02/07/2022 Active rizatriptan (Max alt) 5 mg tablet Take 1 tablet (5 mg) by mouth 1 time if needed for migraine. May repeat in 2 hours if unresolved. Do not exceed 30 mg in 24 hours. Active Comment on above: take 1 tablet by rach th AT ONSET OF HEADACHE MAY TAKE A SECOND TAB... (REFER TO PRESCRIPTION NOTES). rOPINIRole 1 mg oral tablet (6 sources) Nonergot Dopamine Agonist take 1 tablet by mouth three times daily rOPINIRole (Requip) 1 mg tablet Take 1 tablet (1 mg) by mouth 3 times a day. Active take 2 tablets by mouth at bedti me rOPINIRole HCl - 1 MG Oral Tablet TAKE 2 TABLETS AT BEDTIME. Quantity: 0 Refills: 0 Ordered: 11-Feb-2023 DO Active semaglutide (Ozempic) 0.25 mg or 0.5 mg (2 mg/3 mL) pen injector (1 source) Start: 03-23-2024 End: 03-23-2025 semaglutide (Ozempic) 0.25 mg or 0.5 mg (2 mg/3 mL) pen injector Indications: Diabetes mellitus type II, non insulin dependent (Multi) , Hyperlipidemia, unspecified hyperlipidemia type Inject 0.5 mg under the skin every 7 days. 0.2 mL 1 03/23/2024 03/23/2025 Active SITagliptin (14 sources) Dipeptidyl Peptidase 4 Inhibitor take 1 tablet by mouth once daily SITagliptin phosphate (Januvia) 100 mg tablet Take 1 tablet (100 mg) by mouth once daily. Active sitagliptin phos phate (JANUVIA ORAL) Take by mouth once daily. 0 Active spironolactone 50 mg oral tablet (20 sources) Aldosterone Antagonist Start: 02-11-2023 End: 03-23-2025 spironolactone (ALDACTONE) 50 mg tablet Take 50 mg by mouth. 0 02/11/2023 Active traZODone hydrochloride 300 mg oral tablet (20 sources) Serotonin Reuptake Inhibitor Start: 10-16-2021 take 1 tablet by mouth once daily traZODone HCl 300 mg tablet Take 300 mg by mouth once daily. 0 10/16/2021 Active End: 03-23-2024 take 1 tablet by mouth once daily at bedtime traZODone (Desyrel) 100 mg tablet Take 1 tablet (100 mg) by mouth once daily at bedtime. 03/23/2024 Discontinued (Therapy completed) take 2 tablets by mo [facility] at bedtime traZODone HCl - 100 MG Oral Tablet TAKE 2 TABLETS AT BEDTIME. Quantity: 0 Refills: 0 Ordered: 11-Feb-2023 DO Active Comment on above: Take 300 mg by mouth once daily. Completed/Discontinued Medications Medication Drug Class(es) Dates Sig (Normalized) Sig (Original) acetaminophen 325 mg / HYDROcodone bitartrate 5 mg oral tablet (20 sources) Opioid Agonist Start: 05-23-2023 End: 10-23-2023 take 1 tablet by mouth every six hours Hydrocodone-Acetami nophen Discontinued 1 TAB PO Q6H 8 3 July 01, 2023 October 23, 2023 8:16pm Start: 05-21-2022 End: 09-13-2022 take 1 tablet by mouth every six hours Hydrocodone-Acetaminophen Discontinued 1 TAB PO Q6H 28 7 May 21, 2022 September 13, 2022 9:21am Start: 02-20-2022 End: 03-08-2022 take 1 tablet by mouth every six hours Hydrocodone-Acetaminophen Discontinued 1 TAB PO Q6H 12 3 February 20, 2022 March 08, 2022 10:50am [id number] actuat albuterol 0.09 mg/actuat metered dose inhaler (20 sources) beta2-Adrenergic Agonist Start: 02-07-2022 End: 03-20-2024 take 2 puff(s) by mouth every four hours VENTOLIN HFA 90 mcg/actuation inhaler inhale 2 puffs by mouth and INTO THE LUNGS every 4 hours if needed 0 02/07/2022 03/20/2024 Discontinued (Course of therapy completed) Start: 03-24-2020 take 2 puff(s) by in halation every six hours as needed albuterol HFA (PROVENTIL HFA, VENTOLIN HFA) 90 mcg/actuation inhaler Inhale 2 Puffs as instructed every 6 hours as needed. 0 03/24/2020 Active take 2 puff(s) by in halation every four hours albuterol 90 mcg/actuation aerosol powdr breath activated inhaler Inhale 2 puffs every 4 hours. Active take 1 puff(s) by in halation every four hours as needed Albuterol Sulfate HFA 108 (90 Base) MCG/ACT Inhalation Aerosol Solution INHALE 1 PUFF EVERY 4 HOURS NEEDED. Quantity: 0 Refills: 0 Ordered: 11-Feb-2023 DO Active Comment on above: inhale 2 puffs by mo ut and INTO THE LUNGS every 4 hours if needed Inhale 2 Puffs as in structed every 6 hours as needed. biotin 10 mg oral capsule (6 sources) Start: 11-29-19 End: 01-03-20 take 1 capsule by mouth once daily Biotin 10,000 mcg cap Take 1 capsule by mouth once daily. 0 11/29/2020 01/03/2024 Discontinued (Course of therapy completed) Comment on above: Take 1 capsule by mo [facility] once daily. cholecalciferol 1.25 mg oral capsule (6 sources) Vitamin D Start: 03-06-20 End: 01-03-20 24 cholecalciferol, Vitamin D3, (VITAMIN D3) 1,250 mcg (50,000 unit) cap capsule One capsule weekly for 8 weeks then q.month 0 03/06/2021 01/03/2024 Discontinued (Course of therapy completed) Comment on above: One capsule weekly f or 8 weeks then q.month cyclobenzaprine hydrochloride 10 mg oral tablet (20 sources) Muscle Relaxant Start: 03-08-20 End: 10-23-20 23 take 10 mg by mouth three times daily Cyclobenzaprine Discontinued 10 MG PO Three times daily March 08, 2022 12:00am October 23, 2023 8:16pm FLOWFLEX COVID-19 AG HOME TEST kit (16 sources) Start: 01-10-20 End: 03-20-20 24 FLOWFLEX COVID-19 AG HOME TEST kit Start: 01-10-2022 FLOWFLEX COVID -19 AG HOME TEST kit ibuprofen 800 mg oral tablet (14 sources) Nonsteroidal Anti-inflammatory Drug Start: 11-30-2022 End: 01-13-2023 take 800 mg by mouth three times daily Ibuprofen Discontinued 800 MG PO Three times daily November 30, 2022 1:00am January 13, 2023 2:48am lidocaine 0.05 mg/mg medicated patch (20 sources) Antiarrhythmic, Amide Local Anesthetic Start: 01-13-2023 End: 10-23-2023 apply 1 dose topically once daily Lidocaine (Lidoderm) 5 % adhesive patch,medicated Discontinued 1 PATCH TOPICAL Daily January 13, 2023 3:34am October 23, 2023 8:16pm leave on most painful area for up to 12 hrs Start: 06-24-2020 apply 1 dose transde rmal route every twenty-four hours lidocaine (SALONPAS) 4 % patch Apply 1 Patch as directed q 24 HR. 0 06/24/2020 Active Comment on above: Apply 1 Patch as dir ected q 24 HR. meloxicam 15 mg oral tablet (20 sources) Nonsteroidal Anti-inflammatory Drug Start: End: take 1 tablet by mouth once daily meloxicam (MOBIC) 15 mg tablet Take 15 mg by mouth once daily. 0 10/16/2021 03/20/2024 Discontinued (Course of therapy completed) End: 03-23-2024 take 1 capsule by mouth once daily meloxicam submicronized 5 mg capsule Take 5 mg by mouth once daily. 03/23/2024 Discontinued (Therapy completed) Comment on above: Take 15 mg by mouth once daily. norethindrone 0.35 mg oral tablet (20 sources) Start: End: take 0.35 mg by mouth once daily Norethindrone (Contraceptive) Discontinued 0.35 MG PO Daily May 11, 2022 12:00am October 23, 2023 8:16pm pregabalin 75 mg oral capsule (16 sources) Start: End: take 1 capsule by mouth twice daily pregabalin (LYRICA) 75 mg capsule Take 75 mg by mouth twice daily. 0 10/16/2021 03/20/2024 Discontinued (Course of therapy completed) Comment on above: Take 75 mg by mouth twice daily. 24 hr propranolol hydrochloride 80 mg extended release oral capsule (16 sources) beta-Adrenergic Emmett Start: End: take 1 capsule by mouth every twenty-four hours propranolol ER (INDERAL LA) 80 mg 24 hr capsule Take 80 mg by mouth. 0 02/27/2020 03/20/2024 Discontinued (Course of therapy completed) Comment on above: Take 80 mg by mouth. risperiDONE 1 mg oral tablet (16 sources) Atypical Antipsychotic Start: End: take 1 tablet by mouth twice daily risperiDONE (RISPERDAL) 1 mg tablet Take 1 mg by mouth twice daily. 0 10/16/2021 03/20/2024 Discontinued (Course of therapy completed) Comment on above: Take 1 mg by mouth t wice daily. sulfamethoxazole 800 mg / trimethoprim 160 mg oral tablet (20 sources) Dihydrofolate Reductase Inhibitor Antibacterial, Sulfonamide Antimicrobial Start: End: take 1 tablet by mouth twice daily Sulfamethoxazole-Tri methoprim (Bactrim Ds) 800-160 mg tablet Discontinued 1 TAB PO Twice daily 13 09August 20, 2023 12:00am October 23, 2023 8:17pm Start: 07-01-2023 End: 10-23-2023 take 1 tablet by mouth every twelve hours Sulfamethoxazole-Trimethoprim (Bactrim D s) 800-160 mg tablet Discontinued 1 TAB PO Q12H 13 09July 01, 2023 12:00am October 23, 2023 8:17pm Start: 08-03-2022 End: 09-13-2022 take 1 tablet by mouth every twelve hours Sulfamethoxazole-Trimethoprim (Bactrim D s) 800-160 mg tablet Discontinued 1 TAB PO Q12H 13 09August 03, 2022 12:00am September 13, 2022 9:22am Start: 01-10-2022 End: 03-08-2022 take 1 tablet by mouth twice daily Sulfamethoxazole-Trimethoprim (Bactrim D s) 800-160 mg tablet Discontinued 1 TAB PO Twice daily January 10, 2022 1:00am March 08, 2022 10:50am SUMAtriptan 100 mg oral tablet (20 sources) Serotonin-1b and Serotonin-1d Receptor Agonist Start: 03-08-2022 End: 05-11-2022 Sumatriptan Succinate Discontinued MG PO March 08, 2022 12:00am May 11, 2022 10:20am Start: 01-02-2022 take 1 tablet by rach th once daily SUMAtriptan (IMITREX) 100 mg tablet take 1 tablet by mouth if needed to ABORT MIGRAINE once daily 30 DAY SUPPLY 0 01/02/2022 Active Comment on above: take 1 tablet by rach th if needed to ABORT MIGRAINE once daily 30 DAY SUPPLY tiZANidine 4 mg oral tablet (16 sources) Central alpha-2 Adrenergic Agonist Start: 10-16-20 End: 03-20-20 take 1 tablet by mouth once daily tiZANidine (ZANAFLEX) 4 mg tablet take 1 tablet by mouth AT 8PM EVERY NIGHT 0 10/16/2021 03/20/2024 Discontinued (Course of therapy completed) Comment on above: take 1 tablet by rach th AT 8PM EVERY NIGHT triamcinolone acetonide 1 mg/ml topical cream (20 sources) Corticosteroid Start: 11-30-19 End: 10-23-20 Triamcinolone Acetonide Discontinued 1 APPLIC TOPICAL Daily November 30, 2022 1:00am October 23, 2023 8:17pm Start: 06-01-2020 triamcinolone acetonide (NASACORT AQ) 55 mcg nasal inhaler Use 2 Sprays in the nose. 0 06/01/2020 Active Comment on above: Use 2 Sprays in the nose. verapamil hydrochloride 180 mg extended release oral tablet (16 sources) Calcium Channel Emmett Start: End: take 1 tablet by mouth once daily verapamil SR (CALAN SR, ISOPTIN SR) 180 mg CR tablet Take 180 mg by mouth once daily. 0 10/21/2021 03/20/2024 Discontinued (Course of therapy completed) Comment on above: Take 180 mg by mouth once daily. Problems Active Problems Problem Classification Problem Date Documented Da te Episodic/Chronic Allergic reactions (14 sources) Eczema; Translations: [Dermatitis, unspecified] 11-30-2022 Episodic Asthma (20 sources) Mild intermittent asthma; Translations: [Mild intermittent asthma, uncomplicated] Onset: 1 02-12-2022 Chronic Deficiency and other anemia (7 sources) Anemia; Translations: [Anemia, unspecified] Onset: 4 03-23-2024 Episodic Diabetes mellitus with complications (20 sources) Disorder of nervous system due to type 2 diabetes mellitus; Translations: [Type 2 diabetes mellitus with other diabetic neurological complication] Onset: 1 Chronic Diabetes mellitus without complication (20 sources) Type 2 diabetes mellitus; Translations: [Type 2 diabetes mellitus without complications] Onset: 1 02-12-2022 Chronic Disorders of lipid metabolism (20 sources) Hyperlipidemia; Translations: [Hyperlipidemia, unspecified] Onset: 1 02-12-2022 Chronic Esophageal disorders (20 sources) Gastroesophageal reflux disease without esophagitis; Translations: [Gastro-esophageal reflux disease without esophagitis] Onset: 1 02-12-2022 Chronic Essential hypertension (9 sources) Essential hypertension; Translations: [Unspecified essential hypertension] Onset: 4 03-23-2024 Chronic Fluid and electrolyte disorders (15 sources) Acute hypokalemia; Translations: [Hypokalemia] 01-13-2023 Episodic Headache; including migraine (20 sources) Migraine; Translations: [Migraine, unspecified, without mention of intractable migraine without mention of status migrainosus] Onset: 4 03-20-2024 Chronic Inflammatory diseases of female pelvic organs (1 source) Inflammatory disease of cervix uteri; Translations: [INFLAMMATORY DISEASE CERVIX UTERI] Onset: 3 Episodic Menstrual disorders (20 sources) Menorrhagia; Translations: [Excessive and frequent menstruation with regular cycle] Onset: 1 02-12-2022 Chronic Mood disorders (5 sources) Bipolar disorder, most recent episode depression; Translations: [Bipolar I disorder, most recent episode (or current) depressed, unspecified] Chronic Nonspecific chest pain (20 sources) Chest wall pain; Translations: [Other chest pain] Onset: 3 09-21-2022 Episodic Other aftercare (2 sources) Treatment changed; Translations: [Other fci (current) drug therapy] Onset: 4 03-23-2024 Episodic Other connective tissue disease (14 sources) Flexor tenosynovitis of finger; Translations: [Synovitis and tenosynovitis, unspecified] 11-30-2022 Episodic Other female genital disorders (1 source) Abnormal uterine and vaginal bleeding, unspecified; Translations: [ABNORMAL UTERINE VAGINAL BLEED UNS] Onset: 3 Chronic Other female genital disorders (1 source) Other specified conditions associated with female genital organs and menstrual cycle; Translations: [Other specified conditions associated with female genital organs and menstrual cycle] Onset: 4 Episodic Other gastrointestinal disorders (20 sources) Irritable bowel syndrome; Translations: [Irritable bowel syndrome without diarrhea] Onset: 1 02-12-2022 Chronic Other lower respiratory disease (5 sources) Dyspnea on exertion; Translations: [Shortness of breath] Episodic Other lower respiratory disease (1 source) Dyspnea; Translations: [Shortness of breath] Onset: 4 12-30-2023 Episodic Other nervous system disorders (20 sources) Left tarsal tunnel syndrome; Translations: [Tarsal tunnel syndrome, left lower limb] Onset: 1 02-12-2022 Chronic Other nervous system disorders (20 sources) Neuropathy of lower limb; Translations: [Unspecified mononeuropathy of left lower limb] Onset: 2 Chronic Other nervous system disorders (20 sources) Difficulty walking; Translations: [Difficulty in walking, not elsewhere classified] Onset: 2 Chronic Other nervous system disorders (1 source) Difficulty in walking, not elsewhere classified; Translations: [Difficulty walking] Onset: 2 Chronic Other nervous system disorders (20 sources) Postoperative pain ; Translations: [Other acute postprocedural pain] 05-26-2022 Episodic Other nervous system disorders (19 sources) H/O: Disorder; Translations: [Personal history of other diseases of the nervous system and sense organs] 06-29-2022 Episodic Other non-traumatic joint disorders (19 sources) Pain in wrist; Translations: [Pain in left wrist] 06-29-2022 Episodic Other nutritional; endocrine; and metabolic disorders (20 sources) Body mass index 30+ - obesity; Translations: [Body mass index (BMI) 39.0-39.9, adult] Onset: 1 02-12-2022 Chronic Other nutritional; endocrine; and metabolic disorders (5 sources) Obesity; Translations: [Obesity, unspecified] Chronic Other nutritional; endocrine; and metabolic disorders (14 sources) Severe obesity; Translations: [Morbid (severe) obesity due to excess calories] Onset: 4 03-20-2024 Chronic Other nutritional; endocrine; and metabolic disorders (2 sources) Body mass index (BMI) 38.0-38.9, adult; Translations: [Body mass index (BMI) 38.0-38.9, adult] Onset: 4 Chronic Other nutritional; endocrine; and metabolic disorders (1 source) Body mass index (BMI) 39.0-39.9, adult; Translations: [BMI 39.0-39.9,adult] Onset: 2 Chronic Other screening for suspected conditions (not mental disorders or infectious disease) (14 sources) Electrocardiogram abnormal; Translations: [Nonspecific abnormal electrocardiogram [ECG] [EKG]] Onset: 3 Episodic Other skin disorders (11 sources) Sebaceous cyst of skin; Translations: [Sebaceous cyst] 01-04-2023 Episodic Other skin disorders (2 sources) Ingrowing toenail; Translations: [Ingrowing nail] 02-03-2024 Episodic Otitis media and related conditions (20 sources) Acute right otitis media; Translations: [Otitis media, unspecified, right ear] 02-20-2022 Episodic Ovarian cyst (4 sources) Cyst of ovary; Translations: [Unspecified ovarian cyst, unspecified side] 10-23-2023 Episodic Residual codes; unclassified (20 sources) Obstructive sleep apnea of adult; Translations: [Obstructive sleep apnea (adult) (pediatric)] Onset: 1 02-12-2022 Chronic Residual codes; unclassified (20 sources) Hypersomnia; Translations: [Other hypersomnia] Onset: 0 02-12-2022 Chronic Residual codes; unclassified (5 sources) Edema of lower extremity; Translations: [Edema] Episodic Residual codes; unclassified (1 source) Other specified postprocedural states; Translations: [OTH SPECIFIED POSTPROCEDURAL STATES] Onset: 3 Episodic Residual codes; unclassified (4 sources) Postoperative state; Translations: [Other specified postprocedural states] 05-07-2024 Episodic Skin and subcutaneous tissue infections (20 sources) Infected face; Translations: [Local infection of the skin and subcutaneous tissue, unspecified] Onset: 3 02-20-2022 Episodic Sprains and strains (20 sources) Low back strain; Translations: [Strain of muscle, fascia and tendon of lower back, initial encounter] 03-08-2022 Episodic Substance-related disorders (20 sources) Nicotine dependence; Translations: [Nicotine dependence, cigarettes, uncomplicated] Onset: 1 02-12-2022 Chronic Comment on above: 11-25; Unclassified (1 source) Encounter for screening mammogram for malignant neoplasm of breast; Translations: [Encounter for screening mammogram for malignant neoplasm of breast] Onset: 3 Unclassified (1 source) Cutaneous abscess of right lower limb; Translations: [Cutaneous abscess of right lower limb] Onset: 3 Unclassified (1 source) Contusion of right thigh, initial encounter; Translations: [Contusion of right thigh, initial encounter] Onset: 3 Urinary tract infections (4 sources) Urinary tract infectious disease; Translations: [Urinary tract infection, site not specified] 10-23-2023 Episodic Past or Other Problems Problem Classification Problem Date Documented Date Episodic/Chronic Abdominal pain (20 sources) Pain in female pelvis; Translations: [Pelvic and perineal pain] Onset: 11-01-2021 02-12-2022 Episodic Acquired foot deformities (20 sources) Abduction deformity of foot; Translations: [Valgus deformity, not elsewhere classified, left ankle] Onset: 11-01-2023 11-01-2023 Episodic Cancer of cervix (1 source) Low grade squamous intraepithelial lesion on cytologic smear of cervix (LGSIL); Translations: [LGSIL ON CYTOLOGIC SMEAR OF CERVIX] Onset: 12-06-2022 Episodic Complication of device; implant or graft (20 sources) Pain due to internal prosthetic device; Translations: [Pain due to internal orthopedic prosthetic devices, implants and grafts, initial encounter] Onset: 02-03-2021 02-12-2022 Episodic Deficiency and other anemia (3 sources) Anemia, unspecified; Translations: [ANEMIA UNSPECIFIED] Onset: 12-30-2022 Episodic Diabetes mellitus without complication (20 sources) Impaired fasting glycemia; Translations: [Impaired fasting glucose] Onset: 11-23-2020 02-12-2022 Episodic Immunizations and screening for infectious disease (20 sources) Patient encounter status; Translations: [Encounter for screening for human papillomavirus (HPV)] Onset: 10-28-2021 02-12-2022 Episodic Other aftercare (20 sources) Long-term current use of oral hypoglycemic medication; Translations: [terminal clerk (current) use of oral hypoglycemic drugs] Onset: 11-01-2021 02-12-2022 Episodic Other aftercare (2 sources) Other fci (current) drug therapy; Translations: [Other fci (current) drug therapy] Onset: 03-23-2024 Episodic Other circulatory disease (20 sources) Other specified symptoms and signs involving the circulatory and respiratory systems; Translations: [Other symptoms involving cardiovascular system] Onset: 01-06-2021 02-12-2022 Episodic Other connective tissue disease (20 sources) Fibromyalgia; Translations: [Fibromyalgia] Onset: 02-10-2021 02-12-2022 Episodic Other connective tissue disease (20 sources) Pain in left foot; Translations: [Pain in left foot] Onset: 02-03-2021 02-12-2022 Episodic Other connective tissue disease (20 sources) Pain in right foot; Translations: [Pain in right foot] Onset: 02-03-2021 02-12-2022 Episodic Other connective tissue disease (20 sources) Neuralgia of nerve of left lower limb; Translations: [Neuralgia and neuritis, unspecified] Onset: 04-30-2022 Episodic Other connective tissue disease (20 sources) Pain in both feet; Translations: [Pain in right foot] Onset: 01-22-2024 Episodic Other connective tissue disease (1 source) Pain in left foot; Translations: [Pain in left foot] Onset: 02-12-2022 Episodic Other hematologic conditions (20 sources) ESR raised; Translations: [Elevated erythrocyte sedimentation rate] Onset: 11-30-2020 02-12-2022 Episodic Other lower respiratory disease (4 sources) Shortness of breath; Translations: [Shortness of breath] Onset: 03-01-2023 Episodic Other nervous system disorders (20 sources) Acute postoperative pain; Translations: [Other acute postprocedural pain] Onset: 11-25-2020 02-12-2022 Episodic Other non-traumatic joint disorders (20 sources) Chronic ankle pain; Translations: [Pain in left ankle and joints of left foot] Onset: 07-09-2022 Episodic Other skin disorders (20 sources) Keratosis; Translations: [Epidermal thickening, unspecified] Onset: 04-30-2022 Episodic Other skin disorders (20 sources) Abnormality of nail of toe; Translations: [Other nail disorders] Onset: 07-09-2022 Episodic Other skin disorders (1 source) Scar conditions and fibrosis of skin; Translations: [Painful scar] Onset: 11-01-2023 Episodic Residual codes; unclassified (20 sources) Disorder of digestive tract; Translations: [Acquired absence of other specified parts of digestive tract] Onset: 02-03-2021 02-12-2022 Episodic Residual codes; unclassified (20 sources) Postprocedural state finding; Translations: [Other specified postprocedural states] Onset: 04-03-2021 02-12-2022 Episodic Residual codes; unclassified (20 sources) History of operative procedure on foot; Translations: [Other specified postprocedural states] Onset: 04-30-2022 Episodic Residual codes; unclassified (20 sources) Painful scar; Translations: [Pain, unspecified] Onset: 11-01-2023 11-01-2023 Episodic Residual codes; unclassified (1 source) Pain, unspecified; Translations: [Painful scar] Onset: 11-01-2023 Episodic Superficial injury; contusion (11 sources) Contusion of thigh; Translations: [Contusion of unspecified thigh, initial encounter] Onset: 05-23-2023 05-23-2023 Episodic Thyroid disorders (20 sources) Disorder of thyroid gland; Translations: [Disorder of thyroid, unspecified] Onset: 11-01-2021 02-12-2022 Episodic Unclassified (7 sources) Abdominal abscess; Translations: [Abdominal abscess] 07-01-2023 Results Test Name Value Interpretation Reference Range Facility [facility] 07-10-2024 NANCY Telephone (LOORR) GARY VIGIL ([id number]) 1985 F Date Time Provider Department 07/10/24 EULALIA FUENTES During your visit today, we recorded the following information about you: Heavenly Dao 07/10/2024 4:19 PM Signed Type of form: Short-term Disability Form received via fax When form is completed, Form has been forwarded to Dr. Fuentes's mail slot at [facility] check-out Heavenly Olya Grubbs [place], CHRIS 07/13/2024 9:30 AM Signed Patient calls once again States HR hasn't received paperwork and she will have to return to work STD was supposed to have her OFF Work till Jul 27 Paperwork needs to be submitted Prior to Please advise Margie Pa OCCA 07/13/2024 10:32 AM Signed Called patient and rescheduled her post op appointment. Completed her paperwork and will be faxing it now. Conformation will be scanned into patients chart. Allergies As of Date: 07/10/2024 Noted Allergy Reaction KETOROLAC 06/01/2020 4 - Hives PREDNISONE 06/28/2021 14 - Other: See Comments TRAMADOL 06/01/2020 14 - Other: See Comments Date Reviewed: 06/23/2024 Reviewed by: Margie Pa OCCA - Fully Assessed Reason for Visit: Disability [Other] Prescriptions as of 07/13/2024 - mupirocin (BACTROBAN) 2 % ointment Apply 1 application to affected area two times a day. - dulaglutide (TRULICITY) 1.5 mg/0.5 mL pen injector Inject 1.5 mg subcutaneously. - spironolactone (ALDACTONE) 50 mg tablet Take 50 mg by mouth. - atorvastatin calcium (ATORVASTATIN ORAL) Take by mouth once daily. - sitagliptin phosphate (JANUVIA ORAL) Take by mouth once daily. - mupirocin (BACTROBAN) 2 % ointment Apply 1 application to affected area two times a day. - acetaminophen (TYLENOL) 500 mg tablet take 2 tablets by mouth every 8 hours if needed - albuterol HFA (PROVENTIL HFA, VENTOLIN HFA) 90 mcg/actuation inhaler Inhale 2 Puffs as instructed every 6 hours as needed. - amitriptyline (ELAVIL) 50 mg tablet Take 50 mg by mouth daily at bedtime. - ONETOUCH ULTRA TEST test strip twice daily. TEST TWICE DAILY - VRAYLAR 4.5 mg capsule take 1 take by mouth once daily - citalopram (CELEXA) 20 mg tablet Take 20 mg by mouth daily at bedtime. - doxycycline (VIBRA-TABS) 100 mg tablet take 1 tablet by mouth twice a day for 10 days - etodolac (LODINE-XL) 500 mg 24 hr tablet take 1 tablet by mouth once daily NEEDED FOR PAIN with food - FLOVENT HFA 110 mcg/actuation inhaler inhale 2 puffs by mouth and INTO THE LUNGS twice a day - fluticasone (FLONASE) 50 mcg/actuation nasal spray instill 1 spray into each nostril twice a day - furosemide (LASIX) 40 mg tablet take 1 tablet by mouth once daily if needed for SWELLING - AJOVY AUTOINJECTOR 225 mg/1.5 mL auto-injector inject subcutaneously as directed - loratadine (CLARITIN) 10 mg tablet Take 10 mg by mouth once daily. - lidocaine (SALONPAS) 4 % patch Apply 1 Patch as directed q 24 HR. - montelukast (SINGULAIR) 10 mg tablet Take 10 mg by mouth. - omeprazole (PRILOSEC) 20 mg capsule Take 20 mg by mouth once daily. - potassium chloride ER (K-DUR, KLOR-CON) 20 mEq tablet Take 20 mEq by mouth. - prazosin (MINIPRESS) 5 mg cap Take 5 mg by mouth once daily. - rizatriptan (MAXALT) 5 mg tablet take 1 tablet by mouth AT ONSET OF HEADACHE MAY TAKE A SECOND TAB... (REFER TO PRESCRIPTION NOTES). - SUMAtriptan (IMITREX) 100 mg tablet take 1 tablet by mouth if needed to ABORT MIGRAINE once daily 30 DAY SUPPLY - traZODone HCl 300 mg tablet Take 300 mg by mouth once daily. - triamcinolone acetonide (NASACORT AQ) 55 mcg nasal inhaler Use 2 Sprays in the nose. Problem List As Of Date 07/10/2024 Noted Resolved Acquired absence of other specified parts of di*02/03/2021 Disorder of thyroid, unspecified [E07.9] 11/01/2021 ESR raised [R70.0] 11/30/2020 Encounter for screening for human papillomaviru*11/08/2021 Encounter for screening for malignant neoplasm *11/02/2021 Excessive and frequent menstruation with regula*10/27/2021 Hyperlipidemia, unspecified [E78.5] 02/03/2021 Gastro-esophageal reflux disease without esopha*11/01/2021 Irritable bowel syndrome without diarrhea [K58.*11/01/2021 Impaired fasting glucose [R73.01] 11/23/2020 Cigarette nicotine dependence without complicat*11/01/2021 terminal 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 Normal [facility] CNOVon 06-23-2024 CNOV Office Visit (PDAVON ) GARY VIGIL ([id number]) 1985 F Date Time Provider Department 06/23/24 11:30 AM EULALIA FUENTES During your visit today, we recorded the following information about you: Eulalia Fuentes DPM 06/23/2024 1:47 PM Signed This 39 year old female presents today for post-op visit. Gayr Vigil Date of service: June 23, 2024 Patient presents with: Left Foot - Established Patient, Post Op Pain Scales: Verbal (Numeric Rating or Visual Analog Scale) Pain Level: 10 Pain Location: Foot-Left Description: Aching, Cramping, Cutting, Incision, Numbness, Pressure, Sharp, Shooting, Sore, Spasm, Stabbing, Tenderness, Throbbing, Tightness, Tingling Duration Amount of Time: 6 Duration Units: Weeks (post op) Frequency: Continuous Intervention/Comfort measure: Medication, Reposition, Relaxation Comments: She is here for a 6 week post op of the left foot. Surgery performed on 05/01/24. HPI: Patient presents for postop follow up. Denies nausea, vomiting, fever, chills, sweats, shortness of breath. No new complaints. Pain controlled. Some difficulty walking O: Pleasant No acute distress Neuo Exam: Normal neurological exam, gross epicritic sensation intact Vascular Exam: Normal vascular exam, palpable pluses with brisk capillary fill Calf soft non tender, no evidence of Deep Venous Thrombosis. Hyperkeratosis plantar foot and medial great toe Surgical incisions healed A: Progressing well post operative Hyperkeratosis Post operative pain P: In order to perform a complete physical exam, hyperkeratosis removed with #15 scalpel blade was performed. This incidental service is integral to the evaluation and management visit in order to appropriately manage and treat the patient (for their complaint or for this visit). Continue protective measures. Return to the office as scheduled or sooner should problems arise. Call if any problems arise prior to next visit. Dispensed silipos silicone digital pad for great toe Recommend emollients CeraVe topical cream emollient twice daily or equivalent I gave out my personal mobile telephone number [phone] to call at anytime if needed. Instructed that if I am not available should contact the application security specialist shank skinner or go to the emergency room. Social : daughter is getting Aug 21 Eulalia Fuentes DPM Referring Provider: SELF [[id number]] Allergies As of Date: 06/23/2024 Noted Allergy Reaction KETOROLAC 06/01/2020 4 - Hives PREDNISONE 06/28/2021 14 - Other: See Comments TRAMADOL 06/01/2020 14 - Other: See Comments Date Reviewed: 06/23/2024 Reviewed by: Margie Pa OCCA - Fully Assessed Reason for Visit: Established Patient [175] Post Op [174] Primary Visit Diagnosis:Post-operative state [Z98.890] Prescriptions as of 06/23/2024 - mupirocin (BACTROBAN) 2 % ointment Apply 1 application to affected area two times a day. - dulaglutide (TRULICITY) 1.5 mg/0.5 mL pen injector Inject 1.5 mg subcutaneously. - spironolactone (ALDACTONE) 50 mg tablet Take 50 mg by mouth. - atorvastatin calcium (ATORVASTATIN ORAL) Take by mouth once daily. - sitagliptin phosphate (JANUVIA ORAL) Take by mouth once daily. - mupirocin (BACTROBAN) 2 % ointment Apply 1 application to affected area two times a day. - acetaminophen (TYLENOL) 500 mg tablet take 2 tablets by mouth every 8 hours if needed - albuterol HFA (PROVENTIL HFA, VENTOLIN HFA) 90 mcg/actuation inhaler Inhale 2 Puffs as instructed every 6 hours as needed. - amitriptyline (ELAVIL) 50 mg tablet Take 50 mg by mouth daily at bedtime. - Three RingsTOUCH ULTRA TEST test strip twice daily. TEST TWICE DAILY - VRAYLAR 4.5 mg capsule take 1 take by mouth once daily - citalopram (CELEXA) 20 mg tablet Take 20 mg by mouth daily at bedtime. - doxycycline (VIBRA-TABS) 100 mg tablet take 1 tablet by mouth twice a day for 10 days - etodolac (LODINE-XL) 500 mg 24 hr tablet take 1 tablet by mouth once daily NEEDED FOR PAIN with food - FLOVENT HFA 110 mcg/actuation inhaler inhale 2 puffs by mouth and INTO THE LUNGS twice a day - fluticasone (FLONASE) 50 mcg/actuation nasal spray instill 1 spray into each nostril twice a day - furosemide (LASIX) 40 mg tablet take 1 tablet by mouth once daily if needed for SWELLING - AJOVY AUTOINJECTOR 225 mg/1.5 mL auto-injector inject subcutaneously as directed - loratadine (CLARITIN) 10 mg tablet Take 10 mg by mouth once daily. - lidocaine (SALONPAS) 4 % patch Apply 1 Patch as directed q 24 HR. - montelukast (SINGULAIR) 10 mg tablet Take 10 mg by mouth. - omeprazole (PRILOSEC) 20 mg capsule Take 20 mg by mouth once daily. - potassium chloride ER (K-DUR, KLOR-CON) 20 mEq tablet Take 20 mEq by mouth. - prazosin (MINIPRESS) 5 mg cap Take 5 mg by mouth once daily. - rizatriptan (MAXALT) 5 mg tablet take 1 tablet by (more content not included)... Normal [facility]05[facility] GARY VIGIL ([id number]) 1985 F Date Time Provider Department 06/05/24 EULALIA FUENTES During your visit today, we recorded the following information about you: Alma Jimenez, RN 06/05/2024 1:31 PM Signed -Pt Verified by Name and Date of -pt calling to report has 'knot' under left pinkie toe that is sore to touch. Pt just noticed recently. -pt has OV 06/08/24 and will discuss with provider. -pt also thought she was able to do VV.--please advise when pt seen on 06/08/24. Margie Pa OCCA 06/05/2024 2:00 PM Signed Called and left a voicemail switched appointment to virtual. Allergies As of Date: 06/05/2024 Noted Allergy Reaction KETOROLAC 06/01/2020 4 - Hives PREDNISONE 06/28/2021 14 - Other: See Comments TRAMADOL 06/01/2020 14 - Other: See Comments Date Reviewed: 05/20/2024 Reviewed by: Margie Pa OCCA - Fully Assessed Reason for Visit: Patient Update [1234] Prescriptions as of 06/05/2024 - mupirocin (BACTROBAN) 2 % ointment Apply 1 application to affected area two times a day. - dulaglutide (TRULICITY) 1.5 mg/0.5 mL pen injector Inject 1.5 mg subcutaneously. - spironolactone (ALDACTONE) 50 mg tablet Take 50 mg by mouth. - atorvastatin calcium (ATORVASTATIN ORAL) Take by mouth once daily. - sitagliptin phosphate (JANUVIA ORAL) Take by mouth once daily. - mupirocin (BACTROBAN) 2 % ointment Apply 1 application to affected area two times a day. - acetaminophen (TYLENOL) 500 mg tablet take 2 tablets by mouth every 8 hours if needed - albuterol HFA (PROVENTIL HFA, VENTOLIN HFA) 90 mcg/actuation inhaler Inhale 2 Puffs as instructed every 6 hours as needed. - amitriptyline (ELAVIL) 50 mg tablet Take 50 mg by mouth daily at bedtime. - Green Is Good ULTRA TEST test strip twice daily. TEST TWICE DAILY - VRAYLAR 4.5 mg capsule take 1 take by mouth once daily - citalopram (CELEXA) 20 mg tablet Take 20 mg by mouth daily at bedtime. - doxycycline (VIBRA-TABS) 100 mg tablet take 1 tablet by mouth twice a day for 10 days - etodolac (LODINE-XL) 500 mg 24 hr tablet take 1 tablet by mouth once daily NEEDED FOR PAIN with food - FLOVENT HFA 110 mcg/actuation inhaler inhale 2 puffs by mouth and INTO THE LUNGS twice a day - fluticasone (FLONASE) 50 mcg/actuation nasal spray instill 1 spray into each nostril twice a day - furosemide (LASIX) 40 mg tablet take 1 tablet by mouth once daily if needed for SWELLING - AJOVY AUTOINJECTOR 225 mg/1.5 mL auto-injector inject subcutaneously as directed - loratadine (CLARITIN) 10 mg tablet Take 10 mg by mouth once daily. - lidocaine (SALONPAS) 4 % patch Apply 1 Patch as directed q 24 HR. - montelukast (SINGULAIR) 10 mg tablet Take 10 mg by mouth. - omeprazole (PRILOSEC) 20 mg capsule Take 20 mg by mouth once daily. - potassium chloride ER (K-DUR, KLOR-CON) 20 mEq tablet Take 20 mEq by mouth. - prazosin (MINIPRESS) 5 mg cap Take 5 mg by mouth once daily. - rizatriptan (MAXALT) 5 mg tablet take 1 tablet by mouth AT ONSET OF HEADACHE MAY TAKE A SECOND TAB... (REFER TO PRESCRIPTION NOTES). - SUMAtriptan (IMITREX) 100 mg tablet take 1 tablet by mouth if needed to ABORT MIGRAINE once daily 30 DAY SUPPLY - traZODone HCl 300 mg tablet Take 300 mg by mouth once daily. - triamcinolone acetonide (NASACORT AQ) 55 mcg nasal inhaler Use 2 Sprays in the nose. Problem List As Of Date 06/05/2024 Noted Resolved Acquired absence of other specified parts of di*02/03/2021 Disorder of thyroid, unspecified [E07.9] 11/01/2021 ESR raised [R70.0] 11/30/2020 Encounter for screening for human papillomaviru*11/08/2021 Encounter for screening for malignant neoplasm *11/02/2021 Excessive and frequent menstruation with regula*10/27/2021 Hyperlipidemia, unspecified [E78.5] 02/03/2021 Gastro-esophageal reflux disease without esopha*11/01/2021 Irritable bowel syndrome without diarrhea [K58.*11/01/2021 Impaired fasting glucose [R73.01] 11/23/2020 Cigarette nicotine dependence without complicat*11/01/2021 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*11/01/2021 Other specified postprocedural states [Z98.890] 04/03/2021 Other specified symptoms and signs involving th*01/06/2021 BMI 39.0-39.9,adult [Z68.39] 02/10/2021 Contact with and (suspected) exposure to covid-*10/28/2021 Fibromyalgia [M79.7] 02/10/2021 Type 2 diabetes mellitus with diabetic polyneur*02/03/2021 Mild intermittent asthma without complication [*11/01/2021 Combined pelvic and perineal pain in female [R1*11/01/2021 Type 2 diabetes mellitus (HCC) [E11.9] 01/04/2021 Tubal ligation status [Z98.51] 11/01/2021 Obstructive sleep apnea of adult [G47.33] 12/05/2020 Acute postoperative pain [G89.18] 11/25/2020 Other hypersomnia [G47.19] 11/15/2020 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 Normal [facility] CNOVon 05-20-2024 CNOV Office Visit (LOORRM ) GARY VIGIL ([id number]) 1985 F Date Time Provider Department 05/20/24 11:30 AM EULALIA FUENTES During your visit today, we recorded the following information about you: Eulalia Fuentes DPM 05/20/2024 4:15 PM Signed This 38 year old female presents today for post-op visit. Gary Vigil Date of service: May 20, 2024 Patient presents with: Left Foot - Established Patient, Post Op Pain Scales: Verbal (Numeric Rating or Visual Analog Scale) Pain Level: 10 Pain Location: Foot-Left Description: Aching, Cramping, Dressing Change, Incision, Itching, Numbness, Pressure, Sharp, Shooting, Sore, Stabbing, Throbbing, Tightness, Wound Duration Amount of Time: 3 Duration Units: Weeks Frequency: Continuous Intervention/Comfort measure: Medication, Pillow support Comments: She is here for a 3 week post op of the left foot. Surgery performed on 05/01/24. HPI: Patient presents for postop follow up. Denies nausea, vomiting, fever, chills, sweats, shortness of breath. No new complaints. Difficulty walking due to plantar incisions Post operative pain O: Pleasant No acute distress Neuo Exam: Normal neurological exam, gross epicritic sensation intact Vascular Exam: Normal vascular exam, palpable pluses with brisk capillary fill Calf soft non tender, no evidence of Deep Venous Thrombosis. Surgical site without signs of infection, no dehisence. Incisions well coapted. No pain out of proportion. Some hypertrophic skin A: Progressing well post op P: remaining sutures removed. Continue protective measures. Return to the office as scheduled or sooner should problems arise. Call if any problems arise prior to next visit. Rx Bactroban (mupirocin) topical ointment for next few weeks to reduce belinda Staphylococcus aureus colonization inflammation , reduce scar I gave out my personal mobile telephone number [phone] to call at anytime if needed. Instructed that if I am not available should contact the application security specialist shank skinner or go to the emergency room. Recommend off work for now due to delayed healing, post operative pain Diabetes related delayed healing Eulalia Fuentes DPM Referring Provider: SELF [200] Allergies As of Date: 05/20/2024 Noted Allergy Reaction KETOROLAC 06/01/2020 4 - Hives PREDNISONE 06/28/2021 14 - Other: See Comments TRAMADOL 06/01/2020 14 - Other: See Comments Date Reviewed: 05/20/2024 Reviewed by: Margie Pa OCCA - Fully Assessed Reason for Visit: Established Patient [175] Post Op [174] Primary Visit Diagnosis:Post-operative state [Z98.890] Order(s):mupirocin (BACTROBAN) 2 % ointmentApply 1 application to affected area two times a day.Disp: 22 gRfl: 3 Prescriptions as of 05/20/2024 - mupirocin (BACTROBAN) 2 % ointment Apply 1 application to affected area two times a day. - dulaglutide (TRULICITY) 1.5 mg/0.5 mL pen injector Inject 1.5 mg subcutaneously. - spironolactone (ALDACTONE) 50 mg tablet Take 50 mg by mouth. - atorvastatin calcium (ATORVASTATIN ORAL) Take by mouth once daily. - sitagliptin phosphate (JANUVIA ORAL) Take by mouth once daily. - mupirocin (BACTROBAN) 2 % ointment Apply 1 application to affected area two times a day. - acetaminophen (TYLENOL) 500 mg tablet take 2 tablets by mouth every 8 hours if needed - albuterol HFA (PROVENTIL HFA, VENTOLIN HFA) 90 mcg/actuation inhaler Inhale 2 Puffs as instructed every 6 hours as needed. - amitriptyline (ELAVIL) 50 mg tablet Take 50 mg by mouth daily at bedtime. - ONETOUCH ULTRA TEST test strip twice daily. TEST TWICE DAILY - VRAYLAR 4.5 mg capsule take 1 take by mouth once daily - citalopram (CELEXA) 20 mg tablet Take 20 mg by mouth daily at bedtime. - doxycycline (VIBRA-TABS) 100 mg tablet take 1 tablet by mouth twice a day for 10 days - etodolac (LODINE-XL) 500 mg 24 hr tablet take 1 tablet by mouth once daily NEEDED FOR PAIN with food - FLOVENT HFA 110 mcg/actuation inhaler inhale 2 puffs by mouth and INTO THE LUNGS twice a day - fluticasone (FLONASE) 50 mcg/actuation nasal spray instill 1 spray into each nostril twice a day - furosemide (LASIX) 40 mg tablet take 1 tablet by mouth once daily if needed for SWELLING - AJOVY AUTOINJECTOR 225 mg/1.5 mL auto-injector inject subcutaneously as directed - loratadine (CLARITIN) 10 mg tablet Take 10 mg by mouth once daily. - lidocaine (SALONPAS) 4 % patch Apply 1 Patch as directed q 24 HR. - montelukast (SINGULAIR) 10 mg tablet Take 10 mg by mouth. - omeprazole (PRILOSEC) 20 mg capsule Take 20 mg by mouth once daily. - potassium chloride ER (K-DUR, KLOR-CON) 20 mEq tablet Take 20 mEq by mouth. - prazosin (MINIPRESS) 5 mg cap Take 5 mg by mouth once daily. - rizatriptan (MAXALT) 5 mg tablet take 1 tablet by mouth AT ONSET OF HEADACHE MAY TAKE A SECOND TAB... (REFER (more content not included)... [facility] GARY VIGIL ([id number]) 1985 F Date Time Provider Department 05/11/24 EULALIA FUENTES During your visit today, we recorded the following information about you: Betsy Doty RN 05/11/2024 3:55 PM Signed Pt calls 6- foot surgery noted C/o Left foot swelling since 05-07 appt Has elevated all day / every day with some relief and returns after ambulation Hot to touch - great toe and next toe hot to touch Stuck together Toes numb/ tingling since two days ago Pain is throbbing for the past two days Red at stiches- 1.5 area Warm to touch like rest skin Denies fever Called office and office will transfer call to Dr Fuentes Call transferred to ortho to assist with above Margie Pa OCCA 05/12/2024 10:06 AM Signed spoke with the patient on the phone and provided guidance and treatment options. Instructed patient to go to the emergency room if symptoms worse and she is schedule to be seen by the provider next week. Allergies As of Date: 05/11/2024 Noted Allergy Reaction KETOROLAC 06/01/2020 4 - Hives PREDNISONE 06/28/2021 14 - Other: See Comments TRAMADOL 06/01/2020 14 - Other: See Comments Date Reviewed: 05/07/2024 Reviewed by: Margie Pa OCCA - Fully Assessed Prescriptions as of 05/12/2024 - dulaglutide (TRULICITY) 1.5 mg/0.5 mL pen injector Inject 1.5 mg subcutaneously. - spironolactone (ALDACTONE) 50 mg tablet Take 50 mg by mouth. - atorvastatin calcium (ATORVASTATIN ORAL) Take by mouth once daily. - sitagliptin phosphate (JANUVIA ORAL) Take by mouth once daily. - mupirocin (BACTROBAN) 2 % ointment Apply 1 application to affected area two times a day. - acetaminophen (TYLENOL) 500 mg tablet take 2 tablets by mouth every 8 hours if needed - albuterol HFA (PROVENTIL HFA, VENTOLIN HFA) 90 mcg/actuation inhaler Inhale 2 Puffs as instructed every 6 hours as needed. - amitriptyline (ELAVIL) 50 mg tablet Take 50 mg by mouth daily at bedtime. - ONETOUCH ULTRA TEST test strip twice daily. TEST TWICE DAILY - VRAYLAR 4.5 mg capsule take 1 take by mouth once daily - citalopram (CELEXA) 20 mg tablet Take 20 mg by mouth daily at bedtime. - doxycycline (VIBRA-TABS) 100 mg tablet take 1 tablet by mouth twice a day for 10 days - etodolac (LODINE-XL) 500 mg 24 hr tablet take 1 tablet by mouth once daily NEEDED FOR PAIN with food - FLOVENT HFA 110 mcg/actuation inhaler inhale 2 puffs by mouth and INTO THE LUNGS twice a day - fluticasone (FLONASE) 50 mcg/actuation nasal spray instill 1 spray into each nostril twice a day - furosemide (LASIX) 40 mg tablet take 1 tablet by mouth once daily if needed for SWELLING - AJOVY AUTOINJECTOR 225 mg/1.5 mL auto-injector inject subcutaneously as directed - loratadine (CLARITIN) 10 mg tablet Take 10 mg by mouth once daily. - lidocaine (SALONPAS) 4 % patch Apply 1 Patch as directed q 24 HR. - montelukast (SINGULAIR) 10 mg tablet Take 10 mg by mouth. - omeprazole (PRILOSEC) 20 mg capsule Take 20 mg by mouth once daily. - potassium chloride ER (K-DUR, KLOR-CON) 20 mEq tablet Take 20 mEq by mouth. - prazosin (MINIPRESS) 5 mg cap Take 5 mg by mouth once daily. - rizatriptan (MAXALT) 5 mg tablet take 1 tablet by mouth AT ONSET OF HEADACHE MAY TAKE A SECOND TAB... (REFER TO PRESCRIPTION NOTES). - SUMAtriptan (IMITREX) 100 mg tablet take 1 tablet by mouth if needed to ABORT MIGRAINE once daily 30 DAY SUPPLY - traZODone HCl 300 mg tablet Take 300 mg by mouth once daily. - triamcinolone acetonide (NASACORT AQ) 55 mcg nasal inhaler Use 2 Sprays in the nose. Problem List As Of Date 05/11/2024 Noted Resolved Acquired absence of other specified parts of di*02/03/2021 Disorder of thyroid, unspecified [E07.9] 11/01/2021 ESR raised [R70.0] 11/30/2020 Encounter for screening for human papillomaviru*11/08/2021 Encounter for screening for malignant neoplasm *11/02/2021 Excessive and frequent menstruation with regula*10/27/2021 Hyperlipidemia, unspecified [E78.5] 02/03/2021 Gastro-esophageal reflux disease without esopha*11/01/2021 Irritable bowel syndrome without diarrhea [K58.*11/01/2021 Impaired fasting glucose [R73.01] 11/23/2020 Cigarette nicotine dependence without complicat*11/01/2021 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 Normal [facility] CNOVon 05-07-2024 CNOV Office Visit (YANE ) GARY VIGIL ([id number]) 1985 F Date Time Provider Department 05/07/24 10:15 AM EULALIA FUENTES During your visit today, we recorded the following information about you: Eulalia Fuentes DPM 05/07/2024 11:01 PM Signed This 38 year old female presents today for post-op visit. Gary Vigil Date of service: May 07, 2024 Patient presents with: Left Foot - Established Patient, Post Op Pain Scales: Verbal (Numeric Rating or Visual Analog Scale) Pain Level: 10 Pain Location: Foot-Left Description: Aching, Incision, Itching, Numbness, Sharp, Shooting, Sore, Stabbing, Throbbing, Tightness, Tingling Duration Amount of Time: 1 Duration Units: Weeks (post op) Frequency: Continuous Intervention/Comfort measure: Pillow support, Medication Comments: She is here for a 1 week post op of the left foot. Surgery performed on 05/01/24. HPI: Patient presents for postop follow up. Denies nausea, vomiting, fever, chills, sweats, shortness of breath. No new complaints. Pain controlled. O: Pleasant No acute distress Neuo Exam: Normal neurological exam, gross epicritic sensation intact Vascular Exam: Normal vascular exam, palpable pluses with brisk capillary fill Calf soft non tender, no evidence of Deep Venous Thrombosis. Surgical site without signs of infection, no dehisence. Incisions well coapted. No pain out of proportion. A: Progressing well post op P: some of the prolene sutures removed. Continue protective measures. Return to the office as scheduled or sooner should problems arise. Call if any problems arise prior to next visit. NWB (Non Weight Bearing) recommended I gave out my personal mobile telephone number [phone] to call at anytime if needed. Instructed that if I am not available should contact the application security specialist shank skinner or go to the emergency room. Eulalia Fuentes DPM Referring Provider: SELF [200] Allergies As of Date: 05/07/2024 Noted Allergy Reaction KETOROLAC 06/01/2020 4 - Hives PREDNISONE 06/28/2021 14 - Other: See Comments TRAMADOL 06/01/2020 14 - Other: See Comments Date Reviewed: 05/07/2024 Reviewed by: Margie Pa OCCA - Fully Assessed Reason for Visit: Established Patient [175] Post Op [174] Primary Visit Diagnosis:Post-operative state [Z98.890] Prescriptions as of 05/07/2024 - dulaglutide (TRULICITY) 1.5 mg/0.5 mL pen injector Inject 1.5 mg subcutaneously. - spironolactone (ALDACTONE) 50 mg tablet Take 50 mg by mouth. - atorvastatin calcium (ATORVASTATIN ORAL) Take by mouth once daily. - sitagliptin phosphate (JANUVIA ORAL) Take by mouth once daily. - mupirocin (BACTROBAN) 2 % ointment Apply 1 application to affected area two times a day. - acetaminophen (TYLENOL) 500 mg tablet take 2 tablets by mouth every 8 hours if needed - albuterol HFA (PROVENTIL HFA, VENTOLIN HFA) 90 mcg/actuation inhaler Inhale 2 Puffs as instructed every 6 hours as needed. - amitriptyline (ELAVIL) 50 mg tablet Take 50 mg by mouth daily at bedtime. - Green Is Good ULTRA TEST test strip twice daily. TEST TWICE DAILY - VRAYLAR 4.5 mg capsule take 1 take by mouth once daily - citalopram (CELEXA) 20 mg tablet Take 20 mg by mouth daily at bedtime. - doxycycline (VIBRA-TABS) 100 mg tablet take 1 tablet by mouth twice a day for 10 days - etodolac (LODINE-XL) 500 mg 24 hr tablet take 1 tablet by mouth once daily NEEDED FOR PAIN with food - FLOVENT HFA 110 mcg/actuation inhaler inhale 2 puffs by mouth and INTO THE LUNGS twice a day - fluticasone (FLONASE) 50 mcg/actuation nasal spray instill 1 spray into each nostril twice a day - furosemide (LASIX) 40 mg tablet take 1 tablet by mouth once daily if needed for SWELLING - AJOVY AUTOINJECTOR 225 mg/1.5 mL auto-injector inject subcutaneously as directed - loratadine (CLARITIN) 10 mg tablet Take 10 mg by mouth once daily. - lidocaine (SALONPAS) 4 % patch Apply 1 Patch as directed q 24 HR. - montelukast (SINGULAIR) 10 mg tablet Take 10 mg by mouth. - omeprazole (PRILOSEC) 20 mg capsule Take 20 mg by mouth once daily. - potassium chloride ER (K-DUR, KLOR-CON) 20 mEq tablet Take 20 mEq by mouth. - prazosin (MINIPRESS) 5 mg cap Take 5 mg by mouth once daily. - rizatriptan (MAXALT) 5 mg tablet take 1 tablet by mouth AT ONSET OF HEADACHE MAY TAKE A SECOND TAB... (REFER TO PRESCRIPTION NOTES). - SUMAtriptan (IMITREX) 100 mg tablet take 1 tablet by mouth if needed to ABORT MIGRAINE once daily 30 DAY SUPPLY - traZODone HCl 300 mg tablet Take 300 mg by mouth once daily. - triamcinolone acetonide (NASACORT AQ) 55 mcg nasal inhaler Use 2 Sprays in the nose. Problem List As Of Date 05/07/2024 Noted Resolved Acquired absence of other specified parts of di*02/03/2021 Disorder of thyroid, unspecified [E07.9] 11/01/2021 ESR raised [R70.0] 11/30/2020 Encounter for (more content not included)... Normal [facility] 05-05-2024 CNPN Telephone (LOORR) GARY VIGIL ([id number]) 1985 F Date Time Provider Department 05/05/24 EULALIA FUENTES During your visit today, we recorded the following information about you: Jael Fernandez 05/05/2024 2:27 PM Aydin Cody is calling Eulalia Fuentes DPM today to request [facility] Paperwork to be updated and sent to her employer. Patient states her original surgery was cancelled and needs this done AGUS. Patient states she just had the surgery on 05/01/24. Patient has been identified by name and birthdate. Duration of symptoms: N/A Person calling: self Call patient at: on cell [phone] (home) [phone] (cell) Was an appointment scheduled: No Closing statement: Results or non-symptom based questions: Thank you for calling [facility], your call will be returned within the next business day. Jael EspinoMargie Gallagher OCCA 05/05/2024 3:16 PM Signed Called and spoke with patient new paperwork was suppose to be faxed over to the [place] office yesterday. Informed patient I will be in [place] tomorrow and will keep and eye out for the paperwork to be completed and sent out as soon as possible. Informed her we are allocated 7-10 business days to complete the forms. Margie Pa OCCA 05/06/2024 9:38 AM Addendum Paperwork received completed and faxed. Will be scanned into patients chart. Jael Fernandez 06/08/2024 9:10 AM Signed Patient states her employer is asking for FMLA paperwork for last office visit to be refaxed to her employer. Please advise patient. Margie Pa OCCA 06/08/2024 1:56 PM Signed Called and informed patient we have not received new paperwork. Will send the old documents and request new forms to complete an extension. Kathy Mcginnis, RN 06/10/2024 8:52 AM Signed Pt called and is requesting a call from Margie regarding her FMLA paperwork. Per patient, the new paperwork has already been sent and it needs to be sent to her work by Saturday. Pt requesting to be called at [phone] for an update. Margie Pa OCCA 06/10/2024 10:45 AM Signed Paperwork was re completed and faxed. Fax confirmation received 06/10/24 at 8:10. Will be scanned into patients chart. Patient was notified. Patient states they still said they never received the paperwork. Requested an alternative fax number patient did not have one to provide. Reassured patient it was faxed and we have confirmation it went through so if they still say they do not have it we can refax it or patient can pick it up to hand deliver. Srinivas Hugh Jael 07/09/2024 1:24 PM Signed Patient states her employer faxed over more paperwork and patient asking if office received paperwork and if this can be completed and faxed back? Please advise [phone]. Margie Pa OCCA 07/14/2024 10:36 AM Signed Spoke to patient. Paperwork faxed. Confirmation will be uploaded into patients chart. Allergies As of Date: 05/05/2024 Noted Allergy Reaction KETOROLAC 06/01/2020 4 - Hives PREDNISONE 06/28/2021 14 - Other: See Comments TRAMADOL 06/01/2020 14 - Other: See Comments Date Reviewed: 05/01/2024 Reviewed by: Judy Mills, RN - Fully Assessed Reason for Visit: [facility] Paperwork [[id number]] Prescriptions as of 07/14/2024 - mupirocin (BACTROBAN) 2 % ointment Apply 1 application to affected area two times a day. - dulaglutide (TRULICITY) 1.5 mg/0.5 mL pen injector Inject 1.5 mg subcutaneously. - spironolactone (ALDACTONE) 50 mg tablet Take 50 mg by mouth. - atorvastatin calcium (ATORVASTATIN ORAL) Take by mouth once daily. - sitagliptin phosphate (JANUVIA ORAL) Take by mouth once daily. - mupirocin (BACTROBAN) 2 % ointment Apply 1 application to affected area two times a day. - acetaminophen (TYLENOL) 500 mg tablet take 2 tablets by mouth every 8 hours if needed - albuterol HFA (PROVENTIL HFA, VENTOLIN HFA) 90 mcg/actuation inhaler Inhale 2 Puffs as instructed every 6 hours as needed. - amitriptyline (ELAVIL) 50 mg tablet Take 50 mg by mouth daily at bedtime. - Three RingsTOUCH ULTRA TEST test strip twice daily. TEST TWICE DAILY - VRAYLAR 4.5 mg capsule take 1 take by mouth once daily - citalopram (CELEXA) 20 mg tablet Take 20 mg by mouth daily at bedtime. - doxycycline (VIBRA-TABS) 100 mg tablet take 1 tablet by mouth twice a day for 10 days - etodolac (LODINE-XL) 500 mg 24 hr tablet take 1 tablet by mouth once daily NEEDED FOR PAIN with food - FLOVENT HFA 110 mcg/actuation inhaler inhale 2 puffs by mouth and INTO THE LUNGS twice a day - fluticasone (FLONASE) 50 mcg/actuation nasal spray instill 1 spray into each nostril twice a day - furosemide (LASIX) 40 mg tablet take 1 tablet by mouth once daily if needed for SWELLING - AJOVY AUTOINJECTOR 225 mg/1.5 mL auto-injector inject subcutaneously as directed - loratadine (CLARITIN) 10 mg tablet Take 10 mg by (more content not included)... [facility] ANES POSTPROC EVALon 024 ANES POSTPROC EVAL HNO ID: [id number] Author: SEJAL LAI MD Service: Anesthesiology Author Type: Anesthesiologist Type: Anesthesia Postprocedure Evaluation Filed: 05/01/2024 13:45 Note Text: POST ANESTHESIA EVALUATION NOTE : 1985 Procedure Summary Date: 05/01/24 Room / Location: [address] Anesthesia Start: 35 Anesthesia Stop: 839 Procedure: EXCISION BENIGN CYST/MASS LESION LOWER EXTREMITY < 0.5CM (Left: Foot) Diagnosis: History of foot surgery DM (diabetes mellitus), 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 (History of foot surgery [Z98.890]) (DM (diabetes mellitus), type 2 with neurological complications (HCC) [E11.49]) (Painful scar [R52, L90.5]) (Hyperkeratosis [L85.9]) Surgeons: Eulalia Fuentes DPM Responsible Provider: Sejal Lai MD Anesthesia Type: general ASA Status: 3 Anesthesia Type: general Airway Type: LMA Last Vitals Vitals Value Taken Time BP 154/79 05/01/24 0923 Temp 36.4 ?C (97.5 ?F) 05/01/24 0836 HR SpO2 89 05/01/24 0836 Resp 16 05/01/24 0920 SpO2 99 % 05/01/24 0930 Vitals shown include unfiled device data. Post Anesthesia Patient Status Patient Evaluation: PACU. PACU/ICU Patient Condition: stable. Anticipated Disposition: phase 2 then home. Neurological Status: aware and responsive. Pulmonary Status: breathing comfortably on room air Airway Control: returned to baseline unsupported. Cardiovascular Status: stable. Pain Management: clinically adequate - multimodal analgesia pain management approach Postoperative Hydration: acceptable. Intraoperative Events: no significant anesthesia events Post Operative Nausea/Vomiting Status: no significant post operative nausea or vomiting Recommendation: continue current plan of care and further care per PACU/ICU/floor team. Anesthesia Observations No Documentation SIGNATURE: Sejal Lai MD PATIENT NAME: Gary Vigil DATE: May 01, 2024 TIME: 1:44 PM CSN: [id number] [facility] ANES PRE-OPon 05-01-2024 ANES PRE-OP HNO ID: [id number] Author: SEJAL LAI MD Service: Anesthesiology Author Type: Anesthesiologist Type: Anesthesia Preprocedure Evaluation Filed: 05/01/2024 06:58 Note Text: ANESTHESIOLOGY DAY OF SURGERY NOTE : 1985 Procedure Information Date/Time: 05/01/24729 Procedure: EXCISION BENIGN CYST/MASS LESION LOWER EXTREMITY < 0.5CM (Left: Foot) Location: [facility] LR[facility] / [facility] Surgeons: Eulalia Fuentes DPM Estimated body mass index is 36.65 kg/m? as calculated from the following: Height as of 03/20/24: 167.6 cm (5' 6 ). Weight as of 03/20/24: 103 kg (227 lb 1.2 oz). Most recent hematocrit and potassium results: No results found for this basename: HCT,HEMATOCRIT,K,POTASSIUM Relevant Problems ANESTHESIA (+) Obstructive sleep apnea of adult CARDIO (+) Migraines ENDO (+) Type 2 diabetes mellitus (HCC) (+) Type 2 diabetes mellitus with diabetic polyneuropathy (HCC) GI (+) Gastro-esophageal reflux disease without esophagitis NEURO-PSYCH (+) Migraines PULMONARY (+) Mild intermittent asthma without complication (+) Obstructive sleep apnea of adult The patient is compliant with C-PAP for KADEN. She states that she has cut down to smoking 2 ppd. I - PHYSICAL EVALUATION AIRWAY Patient intubated: No. Tracheostomy tube not present Mallampati: II. TM distance: >3 FB. Neck ROM: full ROM without neurological symptoms. Mouth opening: adequate. Short neck: no. Thick neck: no DENTAL Dental findings: teeth intact. II - ANESTHESIA PLAN ASA Score: 3 Anesthetic Plan: general Airway type: LMA The patient is a current smoker. NPO Status: adequate Beta Emmett Monitoring Plan Monitoring plan: standard ASA. Post Procedure Analgesic Plan Postoperative analgesic plan: parenteral or oral opioids and multimodal analgesia. Informed Consent Anesthetic risks, benefits, alternatives, personnel and consent discussed: yes. Patient / Responsible [employer] Party agrees to proceed: yes Patient / Surrogate agrees to blood products: blood products not planned Significant changes in the patient condition since the History and Physical, not otherwise documented in primary service progress note: no. Potential Anesthesia issues that may suggest increased risk of complications or contraindication to planned procedure: none. Vitals Value Taken Time BP 151/89 05/01/24 0653 Pulse 95 06/07/24 0653 Resp 16 05/01/2453 Temp 36.7 ?C (98 ?F) 05/01/24652 SpO2 100 % 05/01/24652 Facility-Administered Medications as of 05/01/2024 Medication Dose Route Frequency lidocaine (PF) 10 mg/mL (1 %) 1-2 mg injection (XYLOCAINE) 0.1-0.2 mL INTRADERMAL PRN lactated ringers iv infusion 5-30 mL/hr INTRAVENOUS CONTINUOUS NaCl 0.9% iv flush bag 20 mL INTRAVENOUS PRN ceFAZolin 2 g in dextrose (iso-osmotic) 50 mL (ANCEF,KEFZOL) 2 g INTRAVENOUS Pre-Op Once acetaminophen 1,000 mg tab(s) (TYLENOL) 1,000 mg ORAL Pre-Op Once promethazine 12.5 mg tab(s) (PHENERGAN) 12.5 mg ORAL Pre-Op Once Outpatient Medications as of 05/01/2024 Medication Sig dulaglutide (TRULICITY) 1.5 mg/0.5 mL pen injector Inject 1.5 mg subcutaneously. spironolactone (ALDACTONE) 50 mg tablet Take 50 mg by mouth. mupirocin (BACTROBAN) 2 % ointment Apply 1 application to affected area two times a day. acetaminophen (TYLENOL) 500 mg tablet take 2 tablets by mouth every 8 hours if needed albuterol HFA (PROVENTIL HFA, VENTOLIN HFA) 90 mcg/actuation inhaler Inhale 2 Puffs as instructed every 6 hours as needed. amitriptyline (ELAVIL) 50 mg tablet Take 50 mg by mouth daily at bedtime. ONETOUCH ULTRA TEST test strip twice daily. TEST TWICE DAILY VRAYLAR 4.5 mg capsule take 1 take by mouth once daily citalopram (CELEXA) 20 mg tablet Take 20 mg by mouth daily at bedtime. doxycycline (VIBRA-TABS) 100 mg tablet take 1 tablet by mouth twice a day for 10 days etodolac (LODINE-XL) 500 mg 24 hr tablet take 1 tablet by mouth once daily NEEDED FOR PAIN with food FLOVENT HFA 110 mcg/actuation inhaler inhale 2 puffs by mouth and INTO THE LUNGS twice a day fluticasone (FLONASE) 50 mcg/actuation nasal spray instill 1 spray into each nostril twice a day furosemide (LASIX) 40 mg tablet take 1 tablet by mouth once daily if needed for SWELLING AJOVY AUTOINJECTOR 225 mg/1.5 mL auto-injector inject subcutaneously as directed loratadine (CLARITIN) 10 mg tablet Take 10 mg by mouth once daily. lidocaine (SALONPAS) 4 % patch Apply 1 Patch as directed q 24 HR. montelukast (SINGULAIR) 10 mg tablet Take 10 mg by mouth. omeprazole (PRILOSEC) 20 mg capsule Take 20 mg by mouth once daily. potassium chloride ER (K-DUR, KLOR-CON) 20 mEq tablet Take 20 mEq by mouth. prazosin (MINIPRESS) 5 mg cap Take 5 mg by mouth once daily. rizatriptan (MAXALT) 5 mg tablet take 1 tablet by mouth AT ONSET OF HEADACHE MAY TAKE A SECOND TAB... (REFER TO PRESCRIPTION NOTES). SUMAtriptan (IMITREX) 100 mg tablet take 1 tablet by mouth if needed (more content not included)... [facility] BRIEF OP NOTon 05-01-2024 BRIEF OP NOT HNO ID: [id number] Author: EULALIA FUENTES DPM Service: Podiatry Author Type: Physician Type: Brief Op Note Filed: 05/01/2024 08:32 Note Text: BRIEF OPERATIVE / PROCEDURE NOTE LOG ID: [id number] SURGERY/PROCEDURE DATE: 05/01/2024 INCISION/PROCEDURE START TIME: 8:00 AM INCISION CLOSE/PROCEDURE END TIME: 8:26 AM SURGEON(S)/PROCEDURALIST(S) AND BIOMETRIC TECHNICIAN(S): Surgeon(s) and Role: * Eulalia Fuentes DPM - Primary No Additional Staff SURGERY/PROCEDURE(S): LEFT FOOT Partial excision bone proximal phalanx great toe Excision plantar lateral hyperkeratotic hypertrophic scar ANESTHESIA: General FINDINGS: consistent with prominence of bone great toe , hypertrophic scar ESTIMATED BLOOD LOSS: minimal SPECIMENS: soft tissue plantar lateral LEFT FOOT scar COMPLICATIONS: None CLOSURE TECHNIQUE: Primary PRE-OP/PRE-PROCEDURE DIAGNOSIS: LEFT great toe prominence of bone exostosis with hyperkeratosis , Painful Hypertrophic scar plantar lateral LEFT FOOT POST-OP/POST-PROCEDURE DIAGNOSIS: Same as Preop SIGNATURE: Eulalia Fuentes DPM PATIENT NAME: Gary Vigil DATE: May 01, 2024 TIME: 8:29 AM [facility] OPERATIVE NOon 05-01-2024 OPERATIVE NO HNO ID: [id number] Author: EULALIA FUENTES DPM Service: Podiatry Author Type: Physician Type: Operative Report Filed: 05/01/2024 12:58 Note Text: OPERATIVE/PROCEDURE REPORT LOG ID: [id number] SURGERY/PROCEDURE DATE: 05/01/2024 INCISION/PROCEDURE START TIME: 8:00 AM INCISION CLOSE/PROCEDURE END TIME: 8:26 AM SURGEON(S)/PROCEDURALIST(S) AND BIOMETRIC TECHNICIAN(S): Surgeon(s) and Role: * Eulalia Fuentes DPM - Primary No Additional Staff SURGERY/PROCEDURE(S): LEFT FOOT Partial excision bone plantar proximal phalanx great toe Excision hypertrophic scar plantar lateral LEFT forefoot 4cm x 0.75cm ANESTHESIA: General SURGERY/PROCEDURE DETAILS: The patient was identified in the preoperative holding area. The correct operative site was marked and the consent was confirmed. A multidisciplinary huddle was completed to ensure preparedness for the upcoming procedure. The patient was brought to the operating room by anesthesia staff. All monitors were applied per anesthesia. All dependent bony prominences were carefully padded. After induction with general anesthesia the skin was formally prepped with Hibiclens scrub and the patient was draped in the standard sterile fashion. A local field block was performed to the LEFT foot utilizing approximately 19ccs of a 1:1 mix of 2% Lidocaine plain and 0.5% Marcaine plain. In addition 3ml of a 2:1 Lidocaine 2% plain and Dexamethasone Sodium Phosphate 4mg/ml was administered to reduce post operative inflammation and pain. Prophylaxis was obtained with IV antibiotic administered within 30 minutes prior to the incision. A multidisciplinary timeout was called to confirm the patient's name and date of , procedure to be performed, correct operative site and laterality, all necessary equipment in the room, proper radiographic images, and delivery of perioperative antibiotics/medications. Attention was directed to the left great toe. Prominence of bone was palpable on the plantar medial aspect of the distal proximal phalanx. There was an associated deep hyperkeratosis at this level. 1 cm incision was made with a #15 scalpel blade the medial aspect of the great toe just superior to the weightbearing surface. Soft tissue spread a mosquito hemostat. Great care was taken to prevent injury to underlying structures. Pastoral tissue was incised with 15 blade and reflected with periosteal elevator. Prominent underlying bone was reduced with a rotating bur. Wounds irrigated with sterile saline. This appeared to adequately reduce the prominence of bone and deformity. The wound was closed with 3-0 Prolene. Residual hyperkeratosis was shaved with #15 scalpel blade and removed. Attention then directed to lobulated hypertrophic scar on the plantar lateral aspect of the left foot at the plantar fourth intermetatarsal space. Local hypertrophic scar and hyperkeratosis identified. Utilizing #15 scalpel blade a 4 cm x 0.75 cm maximum width incision was performed ellipsing the hypertrophic scar and associated hyperkeratotic tissue. Dissection was carried deep into the subcutaneous tissue. Several minute dermal sensory nerves were identified these were carefully distracted and severed sharply. Wounds thoroughly irrigated soft tissue specimen which included hypertrophic skin and scar tissue along with subcutaneous tissue was removed from surgical field and sent to pathology for gross and micro exam. Wounds irrigated. Skin closed with 2-0 and 3-0 Prolene suture placed in such a fashion as to remove tension from the wound with retention sutures and meticulously placed horizontal and simple sutures to reapposed the dermis. Wound closure was further supplemented with Monocryl suture. Excellent apposition of skin margins appear to be achieved. All wounds were dressed with Betadine soaked Adaptic sterile fluff dressings Kerlix roll soft roll and gentle application of Dinesh wrap. Patient tolerated anesthesia procedure very well transferred to PACU with all vital signs stable brisk cap refill time noted to all toes.. PRE-OP/PRE-PROCEDURE DIAGNOSIS: LEFT FOOT exostosis great toe , hyperkeratosis , painful hypertrophic scar plantar lateral LEFT forefoot POST-OP/POST-PROCEDURE DIAGNOSIS: Same as Preop ESTIMATED BLOOD LOSS: minimal SPECIMENS: soft tissue scar LEFT FOOT IMPLANTABLE DEVICES: NONE DRAINS: None COMPLICATIONS: None CLOSURE TECHNIQUE: Primary PARTICIPATION IN SURGERY/PROCEDURE: I/primary surgeon/proceduralist performed the procedure with assistance. SIGNATURE: Eulalia Fuentes DPM PATIENT NAME: Gary Vigil DATE: May 01, 2024 TIME: 8:32 AM [facility] SURGICAL PATHOLOGYon 024 CASE REPORT [facility] Comment on above: Order Comment: Speci men Type: TISSUE SPECIMENOrdering Facility: [facility] Address: [address] [place] [address] Result Comment: Surg [facility] Pathology Report Case: [id number] Authorizing Provider: Eulalia Fuentes DPM Collected: 05/01/2024 08:12 AM Ordering Location: Ambulatory Surgery Received: 05/01/2024 12:46 PM Pathologist: Eulalia Ram MD Specimen: Soft Tissue, Mass, Biopsy, scar plantar left foot Performed By: #### S ####[facility] LABCLIA [id number] [address] [place] CLINICAL HISTORY Normal [facility] Comment on above: Order Comment: Speci men Type: TISSUE SPECIMENOrdering Facility: [facility] Address: [address] [place] [address] Result Comment: Pre- op diagnosis: History of foot surgery [Z98.890] DM (diabetes mellitus), type 2 with neurological complications (HCC) [E11.49] Painful scar [R52, L90.5] Hyperkeratosis [L85.9] Performed By: #### S ####[facility] LABCLIA [id number] [address] [place] FINAL DIAGNOSIS [facility] Comment on above: Order Comment: Speci men Type: TISSUE SPECIMENOrdering Facility: [facility] Address: [address] [place] [address] Result Comment: Soft tissue, left plantar foot, excision: - Hyperkeratosis and dermal fibrosis, consistent with scar. Performed By: #### S ####[facility] LABCLIA [id number] [address] [place] FINAL PERFORMING LAB Normal [facility] Comment on above: Order Comment: Speci men Type: TISSUE SPECIMENOrdering Facility: [facility] Address: [address] [place] [address] Result Comment: Diag nostic interpretation performed at [facility], [address] [place] [address] CLIA# [id number] Tucking Machine Operator: Sarthak Perez M.D. Performed By: #### S ####[facility] [id number] [address] STATES [facility] GROSS DESCRIPTION Normal [facility] Comment on above: Order Comment: Speci men Type: TISSUE SPECIMENOrdering Facility: [facility] Address: [address] [place] [address] Result Comment: A. S oft Tissue, Mass, Biopsy In formalin labeled as scar plantar left foot is an ellipse of granular bulging skin and tissue measuring 3.5 x 1.2 x 1.2 cm. On the skin surface is an ulcerative area measuring 0.5 x 0.5 cm. Sectioning reveals mcmullen-yellow firm cut surfaces with mcmullen-white areas of discoloration. [employer] Automatic sections are submitted in [address] [facility] May 04, 2024 11:50 AM [place] [address] Performed By: #### S ####[facility] [id number] [address] [place] HISTORY PHYSICALon HISTORY PHYSICAL HNO ID: [id number] Author: MC GONZALES APRN.CLINICAL PARTNER Service: ? Author Type: Nurse Practitioner Type: H&P Filed: 05/01/2024 07:09 Note Text: HISTORY AND PHYSICAL EXAMINATION SERVICE DATE: 05/01/2024 SERVICE TIME: 7:08 AM PRIMARY CARE PHYSICIAN: No primary care provider on file. REASON FOR VISIT: Gary Vigil is a 38 year old female who is scheduled for EXCISION BENIGN CYST/MASS LESION LOWER EXTREMITY < 0.5CM Left at the request of Dr. Fuentes for consultation. My final recommendation will be communicated back to the requesting physician by way of shared medical record or letter. 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 (Current) Use of Oral Hypoglycemic Drugs Other Specified Postprocedural States Other Specified Symptoms and Signs Involving The Circulatory and Respiratory Systems Bmi 39.0-39.9,Adult Contact With and (Suspected) Exposure to Covid-19 Fibromyalgia Type 2 Diabetes Mellitus With Diabetic Polyneuropathy ([facility]) Mild Intermittent Asthma Without Complication Combined Pelvic and Perineal Pain in Female Type 2 Diabetes Mellitus ([facility]) Tubal Ligation Status Obstructive Sleep Apnea of Adult Acute Postoperative Pain Other Hypersomnia Pain Due to Internal Orthopedic Prosthetic Devices, Implants and Grafts, Initial Encounter ([facility]) Pain in Left Foot Pain in Right Foot Tarsal Tunnel Syndrome of Left Side Diabetes Mellitus Type 2 With Neurological Manifestations ([facility]) History of Foot Surgery Hyperkeratosis Neuritis of Left Lower Extremity Neuralgia of Left Lower Extremity Chronic Pain of Left Ankle Acquired Dysmorphic Toenail Difficulty Walking Painful Scar Eversion Deformity of Foot, Left Pain in Both Feet Migraines Class 2 Severe Obesity Due to Excess Calories With Serious Comorbidity and Body Mass Index (Bmi) of 36.0 to 36.9 in Adult ([facility]) Subjective CHIEF COMPLAINT: Left foot pain HPI: 38 year old female with left foot pain that has been ongoing for 20 years. No past medical history on file. PAST SURGICAL HISTORY Procedure Laterality Date LIGATE FALLOPIAN TUBE PAST SURGICAL HISTORY OF Foot sx x2 TOTAL ABDOM HYSTERECTOMY No family history on file. SOCIAL HISTORY: Social History Tobacco Use Smoking status: Every Day Types: Cigarettes Start date: 1999 Smokeless tobacco: Never Tobacco comments: Patient states she was formerly smoking 6 packs per day until 2020. Has cut down to 1.5-2 packs per day now. Substance Use Topics Alcohol use: Not Currently Drug use: Not Currently Prior to Admission medications as of 04/27/24 1208 Medication Sig Last Dose Taking dulaglutide (TRULICITY) 1.5 mg/0.5 mL pen injector Inject 1.5 mg subcutaneously. Unknown Yes spironolactone (ALDACTONE) 50 mg tablet Take 50 mg by mouth. Unknown Yes atorvastatin calcium (ATORVASTATIN ORAL) Take by mouth once daily. Unknown Yes mupirocin (BACTROBAN) 2 % ointment Apply 1 application to affected area two times a day. Unknown Yes acetaminophen (TYLENOL) 500 mg tablet take 2 tablets by mouth every 8 hours if needed 03/30/2024 Yes albuterol HFA (PROVENTIL HFA, VENTOLIN HFA) 90 mcg/actuation inhaler Inhale 2 Puffs as instructed every 6 hours as needed. 03/30/2024 Yes amitriptyline (ELAVIL) 50 mg tablet Take 50 mg by mouth daily at bedtime. 03/30/2024 Yes ONETOUCH ULTRA TEST test strip twice daily. TEST TWICE DAILY Unknown Yes VRAYLAR 4.5 mg capsule take 1 take by mouth once daily Unknown Yes citalopram (CELEXA) 20 mg tablet Take 20 mg by mouth daily at bedtime. Unknown Yes doxycycline (VIBRA-TABS) 100 mg tablet take 1 tablet by mouth twice a day for 10 days Unknown Yes etodolac (LODINE-XL) 500 mg 24 hr tablet take 1 tablet by mouth once daily NEEDED FOR PAIN with food Unknown Yes FLOVENT HFA 110 mcg/actuation inhaler inhale 2 puffs by mouth and INTO THE LUNGS twice a day Unknown Yes fluticasone (FLONASE) 50 mcg/actuation nasal spray instill 1 spray into each nostril twice a day Unknown Yes furosemide (LASIX) 40 mg tablet take 1 tablet by mouth once daily if needed for SWELLING Unknown Yes AJOVY AUTOINJECTOR 225 mg/1.5 mL auto-injector inject subcutaneously as directed 03/30/2024 Yes loratadine (CLARITIN) 10 mg tablet Take 10 mg by mouth once daily. Unknown Yes lidocaine (SALONPAS) 4 % patch Apply 1 Patch as directed q 24 HR. Unknown Yes montelukast (SINGULAIR) 10 mg tablet Take 10 mg by mouth. Unknown Yes omeprazole (PRILOSEC) 20 mg capsu (more content not included)... [facility] CNOVon 04-27-2024 CNOV Office Visit (LOORRM ) GARY VIGIL ([id number]) 1985 F Date Time Provider Department 04/27/24 11:45 AM EULALIA FUENTES During your visit today, we recorded the following information about you: Eulalia Fuentes DPM 04/27/2024 2:17 PM Signed Patient Visit for Gary Vigil 1985 38 year old female Date of Service: April 27, 2024 SUBJECTIVE: Chief Complaint: Patient presents with: Left Foot - Established Patient, Pre-Op Visit /Pain Scales: Verbal (Numeric Rating or Visual Analog Scale) Pain Level: 9 Pain Location: Foot-Left Description: Aching, Pressure, Sharp, Sore, Stabbing, Stabbing/Not Incision Duration Amount of Time: 8 Duration Units: Weeks Frequency: Continuous Intervention/Comfort measure: Medication, Massage, Pillow support Comments: She is here for a pre op of the left foot surgery. 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 No past medical history on file. Current Outpatient Medications Medication Sig dulaglutide (TRULICITY) 1.5 mg/0.5 mL pen injector Inject 1.5 mg subcutaneously. spironolactone (ALDACTONE) 50 mg tablet Take 50 mg by mouth. atorvastatin calcium (ATORVASTATIN ORAL) Take by mouth once daily. sitagliptin phosphate (JANUVIA ORAL) Take by mouth once daily. mupirocin (BACTROBAN) 2 % ointment Apply 1 application to affected area two times a day. acetaminophen (TYLENOL) 500 mg tablet take 2 tablets by mouth every 8 hours if needed albuterol HFA (PROVENTIL HFA, VENTOLIN HFA) 90 mcg/actuation inhaler Inhale 2 Puffs as instructed every 6 hours as needed. amitriptyline (ELAVIL) 50 mg tablet Take 50 mg by mouth daily at bedtime. ONETOUCH ULTRA TEST test strip twice daily. TEST TWICE DAILY VRAYLAR 4.5 mg capsule take 1 take by mouth once daily citalopram (CELEXA) 20 mg tablet Take 20 mg by mouth daily at bedtime. doxycycline (VIBRA-TABS) 100 mg tablet take 1 tablet by mouth twice a day for 10 days etodolac (LODINE-XL) 500 mg 24 hr tablet take 1 tablet by mouth once daily NEEDED FOR PAIN with food FLOVENT HFA 110 mcg/actuation inhaler inhale 2 puffs by mouth and INTO THE LUNGS twice a day fluticasone (FLONASE) 50 mcg/actuation nasal spray instill 1 spray into each nostril twice a day furosemide (LASIX) 40 mg tablet take 1 tablet by mouth once daily if needed for SWELLING AJOVY AUTOINJECTOR 225 mg/1.5 mL auto-injector inject subcutaneously as directed loratadine (CLARITIN) 10 mg tablet Take 10 mg by mouth once daily. lidocaine (SALONPAS) 4 % patch Apply 1 Patch as directed q 24 HR. montelukast (SINGULAIR) 10 mg tablet Take 10 mg by mouth. omeprazole (PRILOSEC) 20 mg capsule Take 20 mg by mouth once daily. potassium chloride ER (K-DUR, KLOR-CON) 20 mEq tablet Take 20 mEq by mouth. prazosin (MINIPRESS) 5 mg cap Take 5 mg by mouth once daily. rizatriptan (MAXALT) 5 mg tablet take 1 tablet by mouth AT ONSET OF HEADACHE MAY TAKE A SECOND TAB... (REFER TO PRESCRIPTION NOTES). SUMAtriptan (IMITREX) 100 mg tablet take 1 tablet by mouth if needed to ABORT MIGRAINE once daily 30 DAY SUPPLY traZODone HCl 300 mg tablet Take 300 mg by mouth once daily. triamcinolone acetonide (NASACORT AQ) 55 mcg nasal inhaler Use 2 Sprays in the nose. No current facility-administered medications for this visit. ALLERGIES Allergen Reactions Ketorolac Hives Prednisone Other: See Comments Tramadol Other: See Comments PAST SURGICAL HISTORY Procedure Laterality Date LIGATE FALLOPIAN TUBE PAST SURGICAL HISTORY OF Foot sx x2 TOTAL ABDOM HYSTERECTOMY No family history on file. Social History Tobacco Use Smoking status: Every Day Types: Cigarettes Start date: 1999 Smokeless tobacco: Never Tobacco comments: Patient states she was formerly smoking 6 packs per day until 2020. Has cut down to 1.5-2 packs per day now. Substance Use Topics Alcohol use: Not Currently Drug use: Not Currently Tobacco Use: Not on file REVIEW OF SYSTEMS: The remainder of the ROS was reviewed with the patient and is negative except as noted. OBJECTIVE: General: Pleasant in no acute distress Lower extremity exam: Vascular exam: Normal vascular exam, palpable pluses with brisk capillary fill Neurological exam: Unchanged from previous exam Dermatological exam: LEFT FOOT Hyperkeratosis plantar lateral fourth inter metatarsal space with hypertrophic scar Hyperkeratosis and prominence of bone plantar medial LEFT great toe Ortho: Pes plano valgus deformity LEFT Depressed arch height with weight bearing LABS: Most recent labs reviewed LABORATORY STUDIES: Recent Labs 03/20/24 (more content not included)... Normal [facility] US pelvic completeon 024 US pelvic complete [facility] [place] [address] [place], [place] [id number] Ultrasound Report Signed Patient: Gary Vigil MR#: [id number] : 1985 Acct:[id number] Age/Sex: 38 / F ADM Date: 04/24/24 Loc: Room: Type: [facility] Attending Dr: Rigoberto Montano Ordering Provider: Rigoberto Montano Date of Service: 04/24/24 US/US transvaginal: R10.2 ([id number]) US/US pelvic complete: R10.2 Copies to: Rigoberto Montano Pelvic ultrasound. Reason for exam: Right ovarian abnormality, pelvic pain Comparison: Pelvic ultrasound 01/25/2024 Technique: Transabdominal imaging of the uterus and ovaries was performed. Transvaginal imaging of the uterus and ovaries was also obtained. Additional spectral Doppler analysis of the ovaries was also obtained. Findings: Uterus has been removed. Right ovary measures 4.7 x 3.2 x 3.5 cm. Left ovary measures 2.7 x 2.1 x 2.5 cm. Once again demonstrated is a dermoid involving the left ovary grossly unchanged from the prior study measuring 3.9 cm in greatest dimension. Normal arterial and venous Doppler waveforms are noted. US/US transvaginal Impression: Stable dermoid left ovary measuring 3.9 cm in greatest dimension. Impression dictated by: Raymon Ruelas Jr., D.O.04/24/2024 1:29 PM Dictation Location: [place] [address] Tech: Yelena Barrera Transcribed By: DESHAWN 04/24/24 1329 Dictated By: Raymon Ruelas Jr, DO 04/24/24 1322 Signed By: 04/24/24 1329 Normal [facility] Jorge 04-14-2024 NANCY Telephone ([place]OR[place]) GARY VIGIL ([id number]) 1985 F Date Time Provider Department 04/14/24 [facility] [place] [facility] [place] During your visit today, we recorded the following information about you: Elodia Cobb LPN 04/14/2024 8:52 AM Signed Patient had recent [facility] appt, 03/20. Per Elyse Bowden CNP, does not need to come in today and with be DOS update. Called and spoke with patient. She still has instructions given at [facility] appt. No changes to medications or recent illnesses to report. Reviewed instructions with patient and is aware that she is not to take trulicity within one week of procedure. Elodia Cobb LPN April 14, 2024 8:51 AM Allergies As of Date: 04/14/2024 Noted Allergy Reaction KETOROLAC 06/01/2020 4 - Hives PREDNISONE 06/28/2021 14 - Other: See Comments TRAMADOL 06/01/2020 14 - Other: See Comments Date Reviewed: 03/20/2024 Reviewed by: Severiano Virk APRN.CLINICAL PARTNER - Fully Assessed Prescriptions as of 04/14/2024 - dulaglutide (TRULICITY) 1.5 mg/0.5 mL pen injector Inject 1.5 mg subcutaneously. - spironolactone (ALDACTONE) 50 mg tablet Take 50 mg by mouth. - atorvastatin calcium (ATORVASTATIN ORAL) Take by mouth once daily. - sitagliptin phosphate (JANUVIA ORAL) Take by mouth once daily. - mupirocin (BACTROBAN) 2 % ointment Apply 1 application to affected area two times a day. - acetaminophen (TYLENOL) 500 mg tablet take 2 tablets by mouth every 8 hours if needed - albuterol HFA (PROVENTIL HFA, VENTOLIN HFA) 90 mcg/actuation inhaler Inhale 2 Puffs as instructed every 6 hours as needed. - amitriptyline (ELAVIL) 50 mg tablet Take 50 mg by mouth daily at bedtime. - ONETOUCH ULTRA TEST test strip twice daily. TEST TWICE DAILY - VRAYLAR 4.5 mg capsule take 1 take by mouth once daily - citalopram (CELEXA) 20 mg tablet Take 20 mg by mouth daily at bedtime. - doxycycline (VIBRA-TABS) 100 mg tablet take 1 tablet by mouth twice a day for 10 days - etodolac (LODINE-XL) 500 mg 24 hr tablet take 1 tablet by mouth once daily NEEDED FOR PAIN with food - FLOVENT HFA 110 mcg/actuation inhaler inhale 2 puffs by mouth and INTO THE LUNGS twice a day - fluticasone (FLONASE) 50 mcg/actuation nasal spray instill 1 spray into each nostril twice a day - furosemide (LASIX) 40 mg tablet take 1 tablet by mouth once daily if needed for SWELLING - PhoneGuardOVY AUTOINJECTOR 225 mg/1.5 mL auto-injector inject subcutaneously as directed - loratadine (CLARITIN) 10 mg tablet Take 10 mg by mouth once daily. - lidocaine (SALONPAS) 4 % patch Apply 1 Patch as directed q 24 HR. - montelukast (SINGULAIR) 10 mg tablet Take 10 mg by mouth. - omeprazole (PRILOSEC) 20 mg capsule Take 20 mg by mouth once daily. - potassium chloride ER (K-DUR, KLOR-CON) 20 mEq tablet Take 20 mEq by mouth. - prazosin (MINIPRESS) 5 mg cap Take 5 mg by mouth once daily. - rizatriptan (MAXALT) 5 mg tablet take 1 tablet by mouth AT ONSET OF HEADACHE MAY TAKE A SECOND TAB... (REFER TO PRESCRIPTION NOTES). - SUMAtriptan (IMITREX) 100 mg tablet take 1 tablet by mouth if needed to ABORT MIGRAINE once daily 30 DAY SUPPLY - traZODone HCl 300 mg tablet Take 300 mg by mouth once daily. - triamcinolone acetonide (NASACORT AQ) 55 mcg nasal inhaler Use 2 Sprays in the nose. Problem List As Of Date 04/14/2024 Noted Resolved Acquired absence of other specified parts of di*02/03/2021 Disorder of thyroid, unspecified [E07.9] 11/01/2021 ESR raised [R70.0] 11/30/2020 Encounter for screening for human papillomaviru*11/08/2021 Encounter for screening for malignant neoplasm *11/02/2021 Excessive and frequent menstruation with regula*10/27/2021 Hyperlipidemia, unspecified [E78.5] 02/03/2021 Gastro-esophageal reflux disease without esopha*11/01/2021 Irritable bowel syndrome without diarrhea [K58.*11/01/2021 Impaired fasting glucose [R73.01] 11/23/2020 Cigarette nicotine dependence without complicat*11/01/2021 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*11/01/2021 Other specified postprocedural states [Z98.890] 04/03/2021 Other specified symptoms and signs involving th*01/06/2021 BMI 39.0-39.9,adult [Z68.39] 02/10/2021 Contact with and (suspected) exposure to covid-*10/28/2021 Fibromyalgia [M79.7] 02/10/2021 Type 2 diabetes mellitus with diabetic polyneur*02/03/2021 Mild intermittent asthma without complication [*11/01/2021 Combined pelvic and perineal pain in female [R1*11/01/2021 Type 2 diabetes mellitus (HCC) [E11.9] 01/04/2021 Tubal ligation status [Z98.51] 11/01/2021 Obstructive sleep apnea of adult [G47.33] 12/05/2020 Acute postoperative pain [G89.18] 11/25/2020 Other hypersomnia [G47.19] 11/15/2020 Pain due to internal orthopedic prosthetic evangelist*02/03/2021 Pain in left foot [M79.672] 02/03/2021 Pain in right foot [M79.671] 02/03/2021 Tarsal tunnel syndrome of left side [G57.52] 02/03/2021 Diabetes (more content not included)... Normal [facility] Jorge 04-06-2024 CNPN Telephone (P[place]) GARY VIGIL ([id number]) 1985 F Date Time Provider Department 04/06/24 EULALIA FUENTES During your visit today, we recorded the following information about you: Nina Bernal, RN 04/06/2024 3:36 PM Signed The pt is calling, she just wanted to let you know that she went to [facility] yesterday and she has an infected right toe and is currently being treated with Clindamycin 300 mg 1 pill by mouth every 6 hours for 10 days. Pt is scheduled for surgery on her left foot on 04/10, She also wants to know if you can tell her what you will be doing during the surgery, she was under the impression she was having the callous removed and having an arch implant, she wants to make sure this is still the case. You may call her back at the number listed in contacts and may leave any message. Sugar Gibbs 04/08/2024 9:[address] Fuentes and Margie, I spoke to patient and she is rescheduled for surgery on 05/01/24, and has an appointment to see you in clinic on 04/27/24. Patient would like a call as soon as possible. She is quite upset that the surgery being performed is not for her arch, as she believed that was the whole purpose of the surgery and is counting on that. She is also upset about the toe infection and said this is something that is ongoing and you knew about it, so doesn't understand why her surgery for this Saturday had to be rescheduled. Thank you, Margie Hanson OCCA 04/09/2024 11:54 AM Signed Called patient and left a voicemail of why her surgery was rescheduled. Informed her will see her on 04/27/24 to go over everything prior to surgery. Allergies As of Date: 04/06/2024 Noted Allergy Reaction KETOROLAC 06/01/2020 4 - Hives PREDNISONE 06/28/2021 14 - Other: See Comments TRAMADOL 06/01/2020 14 - Other: See Comments Date Reviewed: 03/20/2024 Reviewed by: Severiano Virk APRN.CNP - Fully Assessed Reason for Visit: surgery question and infected toe [Other] Prescriptions as of 04/09/2024 - dulaglutide (TRULICITY) 1.5 mg/0.5 mL pen injector Inject 1.5 mg subcutaneously. - spironolactone (ALDACTONE) 50 mg tablet Take 50 mg by mouth. - atorvastatin calcium (ATORVASTATIN ORAL) Take by mouth once daily. - sitagliptin phosphate (JANUVIA ORAL) Take by mouth once daily. - mupirocin (BACTROBAN) 2 % ointment Apply 1 application to affected area two times a day. - acetaminophen (TYLENOL) 500 mg tablet take 2 tablets by mouth every 8 hours if needed - albuterol HFA (PROVENTIL HFA, VENTOLIN HFA) 90 mcg/actuation inhaler Inhale 2 Puffs as instructed every 6 hours as needed. - amitriptyline (ELAVIL) 50 mg tablet Take 50 mg by mouth daily at bedtime. - Three RingsTOUCH ULTRA TEST test strip twice daily. TEST TWICE DAILY - VRAYLAR 4.5 mg capsule take 1 take by mouth once daily - citalopram (CELEXA) 20 mg tablet Take 20 mg by mouth daily at bedtime. - doxycycline (VIBRA-TABS) 100 mg tablet take 1 tablet by mouth twice a day for 10 days - etodolac (LODINE-XL) 500 mg 24 hr tablet take 1 tablet by mouth once daily NEEDED FOR PAIN with food - FLOVENT HFA 110 mcg/actuation inhaler inhale 2 puffs by mouth and INTO THE LUNGS twice a day - fluticasone (FLONASE) 50 mcg/actuation nasal spray instill 1 spray into each nostril twice a day - furosemide (LASIX) 40 mg tablet take 1 tablet by mouth once daily if needed for SWELLING - AJOVY AUTOINJECTOR 225 mg/1.5 mL auto-injector inject subcutaneously as directed - loratadine (CLARITIN) 10 mg tablet Take 10 mg by mouth once daily. - lidocaine (SALONPAS) 4 % patch Apply 1 Patch as directed q 24 HR. - montelukast (SINGULAIR) 10 mg tablet Take 10 mg by mouth. - omeprazole (PRILOSEC) 20 mg capsule Take 20 mg by mouth once daily. - potassium chloride ER (K-DUR, KLOR-CON) 20 mEq tablet Take 20 mEq by mouth. - prazosin (MINIPRESS) 5 mg cap Take 5 mg by mouth once daily. - rizatriptan (MAXALT) 5 mg tablet take 1 tablet by mouth AT ONSET OF HEADACHE MAY TAKE A SECOND TAB... (REFER TO PRESCRIPTION NOTES). - SUMAtriptan (IMITREX) 100 mg tablet take 1 tablet by mouth if needed to ABORT MIGRAINE once daily 30 DAY SUPPLY - traZODone HCl 300 mg tablet Take 300 mg by mouth once daily. - triamcinolone acetonide (NASACORT AQ) 55 mcg nasal inhaler Use 2 Sprays in the nose. Problem List As Of Date 04/06/2024 Noted Resolved Acquired absence of other specified parts of di*02/03/2021 Disorder of thyroid, unspecified [E07.9] 11/01/2021 ESR raised [R70.0] 11/30/2020 Encounter for screening for human papillomaviru*11/08/2021 Encounter for screening for malignant neoplasm *11/02/2021 Excessive and frequent menstruation with regula*10/27/2021 Hyperlipidemia, unspecified [E78.5] 02/03/2021 Gastro-esophageal reflux disease without esopha*11/01/2021 Irritable bowel syndrome without diarrhea [K58.* (more content not included)... Normal [facility] Jorge 03-24-2024 NANCY Telephone (LOORRM) GARY VIGIL ([id number]) 1985 F Date Time Provider Department 03/24/24 EULALIA FUENTES During your visit today, we recorded the following information about you: Lissette Saleh 03/24/2024 9:47 AM Signed Type of form: FMLA Form received via fax When form is completed, Fax form to Form has been forwarded to [facility] Lissette Johnson 03/24/2024 9:49 AM Signed Faxed FMLA form to [employer] [phone] Received fax confirmation Spoke with patient Will have scanned into records. Allergies As of Date: 03/24/2024 Noted Allergy Reaction KETOROLAC 06/01/2020 4 - Hives PREDNISONE 06/28/2021 14 - Other: See Comments TRAMADOL 06/01/2020 14 - Other: See Comments Date Reviewed: 03/20/2024 Reviewed by: Severiano Virk APRN.CLINICAL PARTNER - Fully Assessed Prescriptions as of 03/24/2024 - dulaglutide (TRULICITY) 1.5 mg/0.5 mL pen injector Inject 1.5 mg subcutaneously. - spironolactone (ALDACTONE) 50 mg tablet Take 50 mg by mouth. - atorvastatin calcium (ATORVASTATIN ORAL) Take by mouth once daily. - sitagliptin phosphate (JANUVIA ORAL) Take by mouth once daily. - cefADROxil (DURICEF) 500 mg capsule Take 1 capsule by mouth two times a day for 7 days. - mupirocin (BACTROBAN) 2 % ointment Apply 1 application to affected area two times a day. - acetaminophen (TYLENOL) 500 mg tablet take 2 tablets by mouth every 8 hours if needed - albuterol HFA (PROVENTIL HFA, VENTOLIN HFA) 90 mcg/actuation inhaler Inhale 2 Puffs as instructed every 6 hours as needed. - amitriptyline (ELAVIL) 50 mg tablet Take 50 mg by mouth daily at bedtime. - ONETOUCH ULTRA TEST test strip twice daily. TEST TWICE DAILY - VRAYLAR 4.5 mg capsule take 1 take by mouth once daily - citalopram (CELEXA) 20 mg tablet Take 20 mg by mouth daily at bedtime. - doxycycline (VIBRA-TABS) 100 mg tablet take 1 tablet by mouth twice a day for 10 days - etodolac (LODINE-XL) 500 mg 24 hr tablet take 1 tablet by mouth once daily NEEDED FOR PAIN with food - FLOVENT HFA 110 mcg/actuation inhaler inhale 2 puffs by mouth and INTO THE LUNGS twice a day - fluticasone (FLONASE) 50 mcg/actuation nasal spray instill 1 spray into each nostril twice a day - furosemide (LASIX) 40 mg tablet take 1 tablet by mouth once daily if needed for SWELLING - AJOVY AUTOINJECTOR 225 mg/1.5 mL auto-injector inject subcutaneously as directed - loratadine (CLARITIN) 10 mg tablet Take 10 mg by mouth once daily. - lidocaine (SALONPAS) 4 % patch Apply 1 Patch as directed q 24 HR. - montelukast (SINGULAIR) 10 mg tablet Take 10 mg by mouth. - omeprazole (PRILOSEC) 20 mg capsule Take 20 mg by mouth once daily. - potassium chloride ER (K-DUR, KLOR-CON) 20 mEq tablet Take 20 mEq by mouth. - prazosin (MINIPRESS) 5 mg cap Take 5 mg by mouth once daily. - rizatriptan (MAXALT) 5 mg tablet take 1 tablet by mouth AT ONSET OF HEADACHE MAY TAKE A SECOND TAB... (REFER TO PRESCRIPTION NOTES). - SUMAtriptan (IMITREX) 100 mg tablet take 1 tablet by mouth if needed to ABORT MIGRAINE once daily 30 DAY SUPPLY - traZODone HCl 300 mg tablet Take 300 mg by mouth once daily. - triamcinolone acetonide (NASACORT AQ) 55 mcg nasal inhaler Use 2 Sprays in the nose. Problem List As Of Date 03/24/2024 Noted Resolved Acquired absence of other specified parts of di*02/03/2021 Disorder of thyroid, unspecified [E07.9] 11/01/2021 ESR raised [R70.0] 11/30/2020 Encounter for screening for human papillomaviru*11/08/2021 Encounter for screening for malignant neoplasm *11/02/2021 Excessive and frequent menstruation with regula*10/27/2021 Hyperlipidemia, unspecified [E78.5] 02/03/2021 Gastro-esophageal reflux disease without esopha*11/01/2021 Irritable bowel syndrome without diarrhea [K58.*11/01/2021 Impaired fasting glucose [R73.01] 11/23/2020 Cigarette nicotine dependence without complicat*11/01/2021 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*11/01/2021 Other specified postprocedural states [Z98.890] 04/03/2021 Other specified symptoms and signs involving th*01/06/2021 BMI 39.0-39.9,adult [Z68.39] 02/10/2021 Contact with and (suspected) exposure to covid-*10/28/2021 Fibromyalgia [M79.7] 02/10/2021 Type 2 diabetes mellitus with diabetic polyneur*02/03/2021 Mild intermittent asthma without complication [*11/01/2021 Combined pelvic and perineal pain in female [R1*11/01/2021 Type 2 diabetes mellitus (HCC) [E11.9] 01/04/2021 Tubal ligation status [Z98.51] 11/01/2021 Obstructive sleep apnea of adult [G47.33] 12/05/2020 Acute postoperative pain [G89.18] 11/25/2020 Other hypersomnia [G47.19] 11/15/2020 Pain due to internal orthopedic prosthetic evangelist*02/03/2021 Pain in left foot [M79.672] 02/03/2021 Pain in right foot [M79.671] 02/03/2021 Tarsal tunnel syndrome of left side [G57.52] 02/03/2021 Diabetes mellitus type 2 wi (more content not included)... Normal [facility] HISTORY PHYSICALon HISTORY PHYSICAL HNO ID: [id number] Author: SEVERIANO VIRK APRN.CLINICAL PARTNER Service: ? Author Type: Nurse Practitioner Type: H&P Filed: 03/23/2024 08:18 Note Text: HISTORY AND PHYSICAL EXAMINATION SERVICE DATE: 03/20/2024 SERVICE TIME: 10:03 AM PRIMARY CARE PHYSICIAN: No primary care provider on file. REASON FOR VISIT: Gary Vigil is a 38 year old female who is scheduled for Left - EXCISION BENIGN CYST/MASS LESION LOWER EXTREMITY < 0.5CM at the request of Dr. Eulalia Fuentes for consultation. My final recommendation will be communicated back to the requesting physician by way of shared medical record or letter. Assessment Patient has the following medical conditions which may affect farhat-operative course: Hyperlipidemia, unspecified Assessment: On Statin Follows with PCP Type 2 diabetes mellitus ([facility]) Assessment: On Trulicity (Sundays) to hold 7 days prior to procedure On Novuvia Follows with Family health services To get HGB A1C today Fibromyalgia Assessment: Controlled with Tylenol Migraines Assessment: Kali Monthly- Next Dose 03/24 Has rescue medication if needed Cigarette nicotine dependence without complication Assessment: Smokes 1.5-2 PPD Cut back from 6 PPD in 2020 Mild intermittent asthma without complication Assessment: Stable Albuterol if needed Follows with Family health services Obstructive sleep apnea of adult Assessment: Not currently using CPAP as hers was recalled and she has not gotten a new one yet Gastro-esophageal reflux disease without esophagitis Assessment: Controlled with PPI Class 2 severe obesity due to excess calories with serious comorbidity and body mass index (BMI) of 36.0 to 36.9 in adult ([facility]) Assessment: Body mass index is 36.65 kg/m?. [place] Activity Status Index: METS: Do moderate work around the house, such as vacuuming, sweeping floors, or carrying in groceries (3.50 METs) Climb a flight of stairs or walk up a hill (5.50 METs) DASI Score: 9 Patient denies any chest pain or undue shortness of breath with the above physical activity. ANESTHESIA FINDINGS: Intubation History: No history of difficult intubation Significant Anesthesia Considerations: none Airway History: No history of difficult airway I - PHYSICAL EVALUATION AIRWAY Patient intubated: No. Tracheostomy tube not present Mallampati: II. TM distance: >3 FB. Neck ROM: full ROM without neurological symptoms. Mouth opening: adequate. Short neck: no. Thick neck: no Lip Bite Test: II Microretrognathia/Micronagth ia/Recessed Chin: No DENTAL Dental findings: teeth intact. Prepared for surgery: This patient is optimally prepared for surgery CONSULTS: Patient does not require consults for optimization at this time. The Following Tests/Procedures Have Been Initiated: Labs not indicated per [facility] protocol, EKG not indicated per [facility] protocol Planned Anesthetic: Per anesthesia choice Subjective CHIEF COMPLAINT: Left foot pain HPI: 38 year old year old presents to [facility] for evaluation. Patient Has had foot pain > 20 years. Hx of foot sx x2. Has elected for surgical intervention. History reviewed. No pertinent past medical history. PAST SURGICAL HISTORY Procedure Laterality Date LIGATE FALLOPIAN TUBE PAST SURGICAL HISTORY OF Foot sx x2 TOTAL ABDOM HYSTERECTOMY History reviewed. No pertinent family history. SOCIAL HISTORY: Social History Tobacco Use Smoking status: Every Day Types: Cigarettes Start date: 1999 Smokeless tobacco: Never Tobacco comments: Patient states she was formerly smoking 6 packs per day until 2020. Has cut down to 1.5-2 packs per day now. Substance Use Topics Alcohol use: Not Currently Drug use: Not Currently Prior to Admission medications as of 03/20/24 1026 Medication Sig Last Dose Taking dulaglutide (TRULICITY) 1.5 mg/0.5 mL pen injector Inject 1.5 mg subcutaneously. Yes spironolactone (ALDACTONE) 50 mg tablet Take 50 mg by mouth. Yes atorvastatin calcium (ATORVASTATIN ORAL) Take by mouth once daily. Yes sitagliptin phosphate (JANUVIA ORAL) Take by mouth once daily. Yes cefADROxil (DURICEF) 500 mg capsule Take 1 capsule by mouth two times a day for 7 days. Yes mupirocin (BACTROBAN) 2 % ointment Apply 1 application to affected area two times a day. Yes acetaminophen (TYLENOL) 500 mg tablet take 2 tablets by mouth every 8 hours if needed Yes albuterol HFA (PROVENTIL HFA, VENTOLIN HFA) 90 mcg/actuation inhaler Inhale 2 Puffs as instructed every 6 hours as needed. Yes amitriptyline (ELAVIL) 50 mg tablet Take 50 mg by mouth daily at bedtime. Yes ONETOUCH ULTRA TEST test strip twice daily. TEST TWICE DAILY Yes VRAYLAR 4.5 mg capsule take 1 take by mouth once daily Yes citalopram (CELEXA) 20 mg tablet Take 20 mg by mouth daily at bedtime. Yes doxycycline (VIBRA-TABS) 100 mg tablet take 1 tablet by mouth twice a day for 10 days Yes etodolac (LODINE-XL) 500 mg 24 hr tablet take 1 tablet by mouth (more content not included)... Normal [facility] HbA1c (Bld)on 03-20-2024 Average glucose Estimated from glycated hemoglobin (Bld) [Mass/Vol] 189 mg/dL [facility] Comment on above: eAG: (Estimated aver age glucose) is a calculated value from HgbA1c and is patient service representative of the average blood glucose level in the last 2-3 month period. HbA1c (Bld) [Mass fraction] 8.2 % High 4.3 - 5.6 % [facility] Comment on above: [place] Diabetes As sociation guidelines indicate that patients with HgbA1c in the range 5.7-6.4% are at increased risk for development of diabetes, and intervention by lifestyle modification may be beneficial. HgbA1c greater or equal to 6.5% is considered diagnostic of diabetes. Interpretation and review of laboratory results Abnormal [facility] Average glucose Estimated from glycated hemoglobin (Bld) [Mass/Vol] 189 mg/dL Normal [facility] Comment on above: Order Comment: Marah randhawa Type: BLOOD SPECIMENOrdering Facility: [facility] Address: [address] [place] [address] Result Comment: eAG: (Estimated average glucose) is a calculated value from HgbA1c and is patient service representative of the average blood glucose level in the last 2-3 month period. Performed By: #### 5 5454-3 ####[facility] LABCLIA [id number] [place] [address] [place] [facility] HbA1c (Bld) [Mass fraction] 8.2 % High 4.3-5.6 [facility] Comment on above: Order Comment: Marah randhawa Type: BLOOD SPECIMENOrdering Facility: [facility] Address: [address] [place] [address] Result Comment: [place] Diabetes Association guidelines indicate that patients with HgbA1c in the range 5.7-6.4% are at increased risk for development of diabetes, and intervention by lifestyle modification may be beneficial. HgbA1c greater or equal to 6.5% is considered diagnostic of diabetes. Performed By: #### 5 5454-3 ####[facility] LABCLIA [id number] [place] [address] [facility] [id number] 03-17-2024 [id number] O ID: [id number] Author: SAMARA GRECO, PT, DPT Service: ? Author Type: Physical Therapist Type: [id number] Filed: 03/17/2024 15:42 Note Text: [facility] Physical Therapy Plan of Care Certification Patient Name: Gary Vigil : 1985 [facility] #: [id number] Date: 03/11/2024 To: Eulalia Fuentes DPM From Therapist: Samara Greco PT, DPT RE: Patient Certification/ Recertification Your review, approval and electronic signature are required in order to comply with Payor: [facility] MEDICAID / Plan: [facility] MEDICAID / Product Type: Medicaid / regulations. The identified Physical Therapy PLAN OF CARE for the patient is as follows: E11.42 Type 2 diabetes mellitus with diabetic polyneuropathy, unspecified whether fci insulin use (HCC) Z68.39 BMI 39.0-39.9,adult R26.2 Difficulty walking M21.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, left R52, L90.5 Painful scar PLAN OF CARE: Assessment: Gary Vigil presents pre-operatively for upcoming L ankle and foot reconstruction surgery 04/10/24 that interferes with walking, stair negotiation, physical activities . She presents with impairments in balance, gait, overall function, range of motion, and strength. PROMIS? (Patient-Reported Outcomes Measurement Information System) scores were reviewed and identified as a rehabilitation concern. Prognosis for therapy is Good due to: current objective clinical presentation . Reviewed gait training through B axillary crutches with NWB restrictions. Reviewed stair training and crutch fitting. Encouraged consistent practice to aid in confidence post-operatively. She will benefit from skilled therapy services to meet the goals established for this plan of care as noted below. Patient's symptoms are predicted to improve appropriately with physical therapy. Pt has no comorbidities or personal factors that will affect their course of recovery. Evaluation required low decision making. Goals for Episode of Care: created on 03/11/24 through 03/11/24 Patient will demonstrate proper technique for bed mobility based on expected procedure and precautions. (met) Patient will demonstrate proper sit to stand transfer technique with front wheeled walker. (met) Patient will demonstrate proper gait sequence with B axillary crutches or most appropriate assistive device. (met) Patient will demonstrate safe stair negotiation with most appropriate assistive device to simulate home setup. (met) Patient will demonstrate knowledge of ice and elevation and all applicable precautions. (met) Patient Goals: to learn how to walk after surgery Planned Interventions, Frequency, and Duration: Current Frequency: Discontinue Therapy Services Duration: 1 visit Total Number of Visits Planned: 1 Planned Treatment Interventions: Therapeutic exercise (56674), Neuromuscular re-education (03921), Manual therapy (43182), Therapeutic activities (02295), Self-fci management (27920), Patient/Family/Caregiver Education, Body Mechanics Training, Gait Training (57158) PLAN FOR NEXT VISIT: Discharge pre-operatively. Provided handouts with HEP regarding education components today. Patient demonstrates good understanding of plan of care and treatment. The above goals and plan of care were discussed and agreed upon by patient/family. For further details regarding this patient refer to the Physical Therapy electronically documented visit dated 03/11/2024. Provider Attestation I have reviewed the treatment plan for SAW Valdez# [id number] for the period of 03/11/24 -- 05/10/24, established on 03/11/2024. Signature certifies the need for therapy services. Normal [facility] Jorge 03-17-2024 CNPN Telephone (ORQ) GARY VIGIL ([id number]) 1985 F Date Time Provider Department 03/17/24 EULALIA FUENTES During your visit today, we recorded the following information about you: Darcie Henriquez 03/17/2024 12:37 PM Signed Gary is calling Eulalia Fuentes DPM today to request a knee scooter for after procedure. Pt also asking if office has submitted her SACH[employer]/ FMLA paperwork? Pt lastly wanting provider to know that one toe nail is healing nicely the other two still look to be infected. Pt states she will send photo in when able. Patient has been identified by name and birthdate. Duration of symptoms: N/A Person calling: self Call patient at: at home [phone] (home) [phone] (cell) Was an appointment scheduled: No Closing statement: Results or non-symptom based questions: Thank you for calling [facility], your call will be returned within the next business day. Eulalia Albert DPM 03/17/2024 1:47 PM Signed I discussed with the patient local topical wound care Recommend clean with sterile normal saline wound wash Use Honey (MEDIHONEY, HONEY,) 100 % paste topical Rx Cefadroxil (DURICEF) 500 mg capsule If not improved recommend follow up and further work up All questions were answered. Eulalia Fuentes DPM Allergies As of Date: 03/17/2024 Noted Allergy Reaction KETOROLAC 06/01/2020 4 - Hives PREDNISONE 06/28/2021 14 - Other: See Comments TRAMADOL 06/01/2020 14 - Other: See Comments Date Reviewed: 03/09/2024 Reviewed by: Margie Pa OCCA - Fully Assessed Reason for Visit: Patient Update [4774] Patient Question [3636] Order(s):cefADROxil (DURICEF) 500 mg capsuleTake 1 capsule by mouth two times a day for 7 days.Disp: 14 capsuleRfl: 0 Prescriptions as of 03/17/2024 - cefADROxil (DURICEF) 500 mg capsule Take 1 capsule by mouth two times a day for 7 days. - mupirocin (BACTROBAN) 2 % ointment Apply 1 application to affected area two times a day. - acetaminophen (TYLENOL) 500 mg tablet take 2 tablets by mouth every 8 hours if needed - VENTOLIN HFA 90 mcg/actuation inhaler inhale 2 puffs by mouth and INTO THE LUNGS every 4 hours if needed - albuterol HFA (PROVENTIL HFA, VENTOLIN HFA) 90 mcg/actuation inhaler Inhale 2 Puffs as instructed every 6 hours as needed. - amitriptyline (ELAVIL) 50 mg tablet Take 50 mg by mouth daily at bedtime. - ONETOUCH ULTRA TEST test strip twice daily. TEST TWICE DAILY - VRAYLAR 4.5 mg capsule take 1 take by mouth once daily - citalopram (CELEXA) 20 mg tablet Take 20 mg by mouth daily at bedtime. - FLOWFLEX COVID-19 AG HOME TEST kit - doxycycline (VIBRA-TABS) 100 mg tablet take 1 tablet by mouth twice a day for 10 days - etodolac (LODINE-XL) 500 mg 24 hr tablet take 1 tablet by mouth once daily NEEDED FOR PAIN with food - FLOVENT HFA 110 mcg/actuation inhaler inhale 2 puffs by mouth and INTO THE LUNGS twice a day - fluticasone (FLONASE) 50 mcg/actuation nasal spray instill 1 spray into each nostril twice a day - furosemide (LASIX) 40 mg tablet take 1 tablet by mouth once daily if needed for SWELLING - AJOVY AUTOINJECTOR 225 mg/1.5 mL auto-injector inject subcutaneously as directed - loratadine (CLARITIN) 10 mg tablet Take 10 mg by mouth once daily. - lidocaine (SALONPAS) 4 % patch Apply 1 Patch as directed q 24 HR. - meloxicam (MOBIC) 15 mg tablet Take 15 mg by mouth once daily. - montelukast (SINGULAIR) 10 mg tablet Take 10 mg by mouth. - omeprazole (PRILOSEC) 20 mg capsule Take 20 mg by mouth once daily. - potassium chloride ER (K-DUR, KLOR-CON) 20 mEq tablet Take 20 mEq by mouth. - prazosin (MINIPRESS) 5 mg cap Take 5 mg by mouth once daily. - pregabalin (LYRICA) 75 mg capsule Take 75 mg by mouth twice daily. - propranolol ER (INDERAL LA) 80 mg 24 hr capsule Take 80 mg by mouth. - risperiDONE (RISPERDAL) 1 mg tablet Take 1 mg by mouth twice daily. - rizatriptan (MAXALT) 5 mg tablet take 1 tablet by mouth AT ONSET OF HEADACHE MAY TAKE A SECOND TAB... (REFER TO PRESCRIPTION NOTES). - SUMAtriptan (IMITREX) 100 mg tablet take 1 tablet by mouth if needed to ABORT MIGRAINE once daily 30 DAY SUPPLY - tiZANidine (ZANAFLEX) 4 mg tablet take 1 tablet by mouth AT 8PM EVERY NIGHT - traZODone HCl 300 mg tablet Take 300 mg by mouth once daily. - triamcinolone acetonide (NASACORT AQ) 55 mcg nasal inhaler Use 2 Sprays in the nose. - verapamil SR (CALAN SR, ISOPTIN SR) 180 mg CR tablet Take 180 mg by mouth once daily. Problem List As Of Date 03/17/2024 Noted Resolved Acquired absence of other specified parts of di*02/03/2021 Disorder of thyroid, unspecified [E07.9] 11/01/2021 ESR raised [R70.0] 11/30/2020 Encounter for screening for human papillomaviru*11/08/2021 Encounter for screening for malignant neoplasm *11/02/2021 Excessive and frequent menstruation with regula*10/27/2021 (more content not included)... Normal [facility] CNTHERAPYon 03-11-2024 CNTHERAPY OT/PT/Speech Visit ( LOPTRM) GARY VIGIL ([id number]) 1985 F Date Time Provider Department 03/11/24 9:15 AM SAMARA GRECO Date Time Provider Department Center 03/11/2024 9:15 AM [id number] GRECO Reason for Visit: PT Eval [747] Patient Education [91] PT Discharge [752] Visit Diagnoses:Type 2 diabetes mellitus with diabetic polyneuropathy, unspecified whether fci insulin use (HCC) [E11.42] BMI 39.0-39.9,adult [Z68.39] Difficulty walking [R26.2] Eversion deformity of foot, left [M21.072] Painful scar [R52, L90.5] Allergies As of Date: 03/11/2024 Noted Allergy Reaction KETOROLAC 06/01/2020 4 - Hives PREDNISONE 06/28/2021 14 - Other: See Comments TRAMADOL 06/01/2020 14 - Other: See Comments Date Reviewed: 03/09/2024 Reviewed by: Margie Pa OCCA - Fully Assessed Prescriptions as of 03/17/2024 - cefADROxil (DURICEF) 500 mg capsule Take 1 capsule by mouth two times a day for 7 days. - mupirocin (BACTROBAN) 2 % ointment Apply 1 application to affected area two times a day. - acetaminophen (TYLENOL) 500 mg tablet take 2 tablets by mouth every 8 hours if needed - VENTOLIN HFA 90 mcg/actuation inhaler inhale 2 puffs by mouth and INTO THE LUNGS every 4 hours if needed - albuterol HFA (PROVENTIL HFA, VENTOLIN HFA) 90 mcg/actuation inhaler Inhale 2 Puffs as instructed every 6 hours as needed. - amitriptyline (ELAVIL) 50 mg tablet Take 50 mg by mouth daily at bedtime. - Green Is Good ULTRA TEST test strip twice daily. TEST TWICE DAILY - VRAYLAR 4.5 mg capsule take 1 take by mouth once daily - citalopram (CELEXA) 20 mg tablet Take 20 mg by mouth daily at bedtime. - FLOWFLEX COVID-19 AG HOME TEST kit - doxycycline (VIBRA-TABS) 100 mg tablet take 1 tablet by mouth twice a day for 10 days - etodolac (LODINE-XL) 500 mg 24 hr tablet take 1 tablet by mouth once daily NEEDED FOR PAIN with food - FLOVENT HFA 110 mcg/actuation inhaler inhale 2 puffs by mouth and INTO THE LUNGS twice a day - fluticasone (FLONASE) 50 mcg/actuation nasal spray instill 1 spray into each nostril twice a day - furosemide (LASIX) 40 mg tablet take 1 tablet by mouth once daily if needed for SWELLING - [employer] AUTOINJECTOR 225 mg/1.5 mL auto-injector inject subcutaneously as directed - loratadine (CLARITIN) 10 mg tablet Take 10 mg by mouth once daily. - lidocaine (SALONPAS) 4 % patch Apply 1 Patch as directed q 24 HR. - meloxicam (MOBIC) 15 mg tablet Take 15 mg by mouth once daily. - montelukast (SINGULAIR) 10 mg tablet Take 10 mg by mouth. - omeprazole (PRILOSEC) 20 mg capsule Take 20 mg by mouth once daily. - potassium chloride ER (K-DUR, KLOR-CON) 20 mEq tablet Take 20 mEq by mouth. - prazosin (MINIPRESS) 5 mg cap Take 5 mg by mouth once daily. - pregabalin (LYRICA) 75 mg capsule Take 75 mg by mouth twice daily. - propranolol ER (INDERAL LA) 80 mg 24 hr capsule Take 80 mg by mouth. - risperiDONE (RISPERDAL) 1 mg tablet Take 1 mg by mouth twice daily. - rizatriptan (MAXALT) 5 mg tablet take 1 tablet by mouth AT ONSET OF HEADACHE MAY TAKE A SECOND TAB... (REFER TO PRESCRIPTION NOTES). - SUMAtriptan (IMITREX) 100 mg tablet take 1 tablet by mouth if needed to ABORT MIGRAINE once daily 30 DAY SUPPLY - tiZANidine (ZANAFLEX) 4 mg tablet take 1 tablet by mouth AT 8PM EVERY NIGHT - traZODone HCl 300 mg tablet Take 300 mg by mouth once daily. - triamcinolone acetonide (NASACORT AQ) 55 mcg nasal inhaler Use 2 Sprays in the nose. - verapamil SR (CALAN SR, ISOPTIN SR) 180 mg CR tablet Take 180 mg by mouth once daily. Physical Fitness Trainer: Addendum Therapy (PT/OT/Speech/Resp) ID: [id number] 03/11/2024 9:34 AM Author: SAMARA GRECO Signed by SAMARA GRECO PT, DPT on 03/11/2024 at 9:34 AM * * * This document replaces document [id number] * * * Document text: Program_ID:[id number] Access Code: [email or web address] URL: [email or web address] Date: 03-11-2024 Prepared By: Samara Greco Program Notes Patient Education - Walking with Crutches: Non Weight-Bearing - Going Up and Down Stairs With Crutches ([id number]) - cc Gait Training Crutches Non Weight Bearing NWB - cc Gait Safety Crutch Fitting Sizing Normal [facility] THERAPY NTon 03-11-2024 THERAPY NT HNO ID: [id number] Author: SAMARA GRECO, PT, DPT Service: ? Author Type: Physical Therapist Type: Therapy (PT/OT/Speech/Resp) Filed: 03/11/2024 09:16 Note Text: Program_ID:[id number] Access Code: [email or web address] URL: [email or web address] Date: 03-11-2024 Prepared By: Samara Greco Program Notes Patient Education - Walking with Crutches: Non Weight-Bearing - Going Up and Down Stairs With Crutches ([id number]) - cc Gait Training Crutches Non Weight Bearing NWB Normal [facility] CNOVon 03-09-2024 CNOV Office Visit (LOORRM ) GARY VIGIL ([id number]) 1985 F Date Time Provider Department 03/09/24 8:00 AM EULALIA FUENTES During your visit today, we recorded the following information about you: Eulalia Fuentes DPM 03/09/2024 1:20 PM Signed Patient Visit for Gary Vigil 1985 38 year old female SUBJECTIVE: Chief Complaint: Patient presents with: Left Foot - Ingrown Toenail, Established Patient Right Foot - Ingrown Toenail, Established Patient Pain Scales: Verbal (Numeric Rating or Visual Analog Scale) Pain Level: 10 Pain Location: Foot-Left Description: Aching, Burning, Cramping, Cutting, Pressure, Sharp, Shooting, Sore, Stabbing, Throbbing, Tingling, Wound Duration Amount of Time: 10 Duration Units: Weeks Frequency: Continuous Intervention/Comfort measure: Medication, Massage, Support surface Comments: She is here for bilateral foot ingrown toe nail procedures. Additional HPI: Here today for ingrown toenail bilateral great toe medial and lateral border nail , RIGHT medial border nail third toe Additional Modifying factor: What makes better / worse: Chronic symptoms since teenager per patient PCP: No primary care provider on file. No past medical history on file. Current Outpatient Medications Medication Sig mupirocin (BACTROBAN) 2 % ointment Apply 1 application to affected area two times a day. acetaminophen (TYLENOL) 500 mg tablet take 2 tablets by mouth every 8 hours if needed VENTOLIN HFA 90 mcg/actuation inhaler inhale 2 puffs by mouth and INTO THE LUNGS every 4 hours if needed albuterol HFA (PROVENTIL HFA, VENTOLIN HFA) 90 mcg/actuation inhaler Inhale 2 Puffs as instructed every 6 hours as needed. amitriptyline (ELAVIL) 50 mg tablet Take 50 mg by mouth daily at bedtime. Green Is Good ULTRA TEST test strip twice daily. TEST TWICE DAILY VRAYLAR 4.5 mg capsule take 1 take by mouth once daily citalopram (CELEXA) 20 mg tablet Take 20 mg by mouth daily at bedtime. FLOWFLEX COVID-19 AG HOME TEST kit doxycycline (VIBRA-TABS) 100 mg tablet take 1 tablet by mouth twice a day for 10 days etodolac (LODINE-XL) 500 mg 24 hr tablet take 1 tablet by mouth once daily NEEDED FOR PAIN with food FLOVENT HFA 110 mcg/actuation inhaler inhale 2 puffs by mouth and INTO THE LUNGS twice a day fluticasone (FLONASE) 50 mcg/actuation nasal spray instill 1 spray into each nostril twice a day furosemide (LASIX) 40 mg tablet take 1 tablet by mouth once daily if needed for SWELLING AJOVY AUTOINJECTOR 225 mg/1.5 mL auto-injector inject subcutaneously as directed loratadine (CLARITIN) 10 mg tablet Take 10 mg by mouth once daily. lidocaine (SALONPAS) 4 % patch Apply 1 Patch as directed q 24 HR. meloxicam (MOBIC) 15 mg tablet Take 15 mg by mouth once daily. montelukast (SINGULAIR) 10 mg tablet Take 10 mg by mouth. omeprazole (PRILOSEC) 20 mg capsule Take 20 mg by mouth once daily. potassium chloride ER (K-DUR, KLOR-CON) 20 mEq tablet Take 20 mEq by mouth. prazosin (MINIPRESS) 5 mg cap Take 5 mg by mouth once daily. pregabalin (LYRICA) 75 mg capsule Take 75 mg by mouth twice daily. propranolol ER (INDERAL LA) 80 mg 24 hr capsule Take 80 mg by mouth. risperiDONE (RISPERDAL) 1 mg tablet Take 1 mg by mouth twice daily. rizatriptan (MAXALT) 5 mg tablet take 1 tablet by mouth AT ONSET OF HEADACHE MAY TAKE A SECOND TAB... (REFER TO PRESCRIPTION NOTES). SUMAtriptan (IMITREX) 100 mg tablet take 1 tablet by mouth if needed to ABORT MIGRAINE once daily 30 DAY SUPPLY tiZANidine (ZANAFLEX) 4 mg tablet take 1 tablet by mouth AT 8PM EVERY NIGHT traZODone HCl 300 mg tablet Take 300 mg by mouth once daily. triamcinolone acetonide (NASACORT AQ) 55 mcg nasal inhaler Use 2 Sprays in the nose. verapamil SR (CALAN SR, ISOPTIN SR) 180 mg CR tablet Take 180 mg by mouth once daily. No current facility-administered medications for this visit. ALLERGIES Allergen Reactions Ketorolac Hives Prednisone Other: See Comments Tramadol Other: See Comments No past surgical history on file. No family history on file. Tobacco Use: Not on file REVIEW OF SYSTEMS: The remainder of the ROS was reviewed with the patient and is negative except as noted. OBJECTIVE: General: Pleasant in no acute distress Lower extremity exam: Vascular exam: Normal vascular exam, palpable pluses with brisk capillary fill Neurological exam: Unchanged from previous exam Dermatological exam: Bilateral great toe ingrown toenail medial and lateral border nail Ingrown toenail medial border nail third toenail Dystrophic toenails especially second toenail RIGHT FOOT Other Normal exam without rashes or lesions of skin. No evidence of evidence of petechiae, purpura, telangiectasia Musculoskeletal exam: Unchanged from previous exam LABS: Most recent labs reviewed LABORATORY STUDIES: No results for input(s): HB , (more content not included)... [facility] Jorge 02-04-2024 [facility] Tele[facility] (LOORRM) GARY VIGIL ([id number]) 1985 F Date Time Provider Department 02/04/24 EULALIA FUENTES During your visit today, we recorded the following information about you: Lissette Saleh 02/04/2024 9:11 AM Signed Spoke with patient and scheduled surgery with Dr. Fuentes on 04/10/24. Patient stated she needed to be in the hospital for 24hrs. I explained to patient that [place] was an outpatient surgery center and advised her to discuss with Dr. Fuentes. Gave patient direct phone numbers. [phone] or [phone] Lissette Saleh 02/05/2024 9:40 AM Signed Patient was scheduled for NWB PT and I notified her that Dr. Fuentes stated that her procedure did not require and overnight stay. Sugar Gibbs 04/08/2024 9:01 AM Signed Left voice message for patient stating that Dr. Fuentes received her message about the active toe infection that she currently has, and because of this, her surgery for this 04/10/24, must be cancelled and rescheduled to a later date. I also let her know that Dr. Fuentes will need to see her in the office prior to surgery to make sure her current infection has cleared. I also let her know that Dr. Fuentes will discuss the surgical procedure he has planned with her at that time, as she wrote to him that she understands she is having an arch implant, and Dr. Fuentes's response to that was she is not scheduled for an arch repair. I provided my direct number in surgery scheduling and asked that she call me back when she can [phone]. Sugar Gibbs 04/08/2024 9:29 AM Signed Spoke to patient and she is rescheduled for surgery of left foot with Dr. Fuentes for 05/01/24. She is scheduled to see him in clinic on 04/27/24 so he may evaluate the toe infection and make sure it is healed. I will send a message to Dr. Fuentes and Margie asking that they call the patient as soon as possible, because she thought this surgery was to correct her arch issue, and per Dr. Fuentes, this is not an arch surgery. Allergies As of Date: 02/04/2024 Noted Allergy Reaction KETOROLAC 06/01/2020 4 - Hives PREDNISONE 06/28/2021 14 - Other: See Comments TRAMADOL 06/01/2020 14 - Other: See Comments Date Reviewed: 02/03/2024 Reviewed by: Margie Pa OCCA - Fully Assessed Reason for Visit: Surgical Followup [104] Prescriptions as of 04/08/2024 - dulaglutide (TRULICITY) 1.5 mg/0.5 mL pen injector Inject 1.5 mg subcutaneously. - spironolactone (ALDACTONE) 50 mg tablet Take 50 mg by mouth. - atorvastatin calcium (ATORVASTATIN ORAL) Take by mouth once daily. - sitagliptin phosphate (JANUVIA ORAL) Take by mouth once daily. - mupirocin (BACTROBAN) 2 % ointment Apply 1 application to affected area two times a day. - acetaminophen (TYLENOL) 500 mg tablet take 2 tablets by mouth every 8 hours if needed - albuterol HFA (PROVENTIL HFA, VENTOLIN HFA) 90 mcg/actuation inhaler Inhale 2 Puffs as instructed every 6 hours as needed. - amitriptyline (ELAVIL) 50 mg tablet Take 50 mg by mouth daily at bedtime. - ONETOUCH ULTRA TEST test strip twice daily. TEST TWICE DAILY - VRAYLAR 4.5 mg capsule take 1 take by mouth once daily - citalopram (CELEXA) 20 mg tablet Take 20 mg by mouth daily at bedtime. - doxycycline (VIBRA-TABS) 100 mg tablet take 1 tablet by mouth twice a day for 10 days - etodolac (LODINE-XL) 500 mg 24 hr tablet take 1 tablet by mouth once daily NEEDED FOR PAIN with food - FLOVENT HFA 110 mcg/actuation inhaler inhale 2 puffs by mouth and INTO THE LUNGS twice a day - fluticasone (FLONASE) 50 mcg/actuation nasal spray instill 1 spray into each nostril twice a day - furosemide (LASIX) 40 mg tablet take 1 tablet by mouth once daily if needed for SWELLING - AJOVY AUTOINJECTOR 225 mg/1.5 mL auto-injector inject subcutaneously as directed - loratadine (CLARITIN) 10 mg tablet Take 10 mg by mouth once daily. - lidocaine (SALONPAS) 4 % patch Apply 1 Patch as directed q 24 HR. - montelukast (SINGULAIR) 10 mg tablet Take 10 mg by mouth. - omeprazole (PRILOSEC) 20 mg capsule Take 20 mg by mouth once daily. - potassium chloride ER (K-DUR, KLOR-CON) 20 mEq tablet Take 20 mEq by mouth. - prazosin (MINIPRESS) 5 mg cap Take 5 mg by mouth once daily. - rizatriptan (MAXALT) 5 mg tablet take 1 tablet by mouth AT ONSET OF HEADACHE MAY TAKE A SECOND TAB... (REFER TO PRESCRIPTION NOTES). - SUMAtriptan (IMITREX) 100 mg tablet take 1 tablet by mouth if needed to ABORT MIGRAINE once daily 30 DAY SUPPLY - traZODone HCl 300 mg tablet Take 300 mg by mouth once daily. - triamcinolone acetonide (NASACORT AQ) 55 mcg nasal inhaler Use 2 Sprays in the nose. Problem List As Of Date 02/04/2024 Noted Resolved Acquired absence of other specified parts of di*02/03/2021 Disorder of thyroid, unspecified [E07.9] 11/01/2021 ESR raised [R70.0] 11/30/2020 Encounter for screening for human papillo (more content not included)... Normal [facility] CNOVon 02-03-2024 CNOV Office Visit (LOORRM ) GARY VIGIL ([id number]) 1985 F Date Time Provider Department 02/03/24 11:00 AM EULALIA FUENTES During your visit today, we recorded the following information about you: Eulalia Fuentes DPM 02/03/2024 2:11 PM Signed Patient Visit for Gary Vigil 1985 38 year old female Date of Service: February 03, 2024 SUBJECTIVE: Chief Complaint: Patient presents with: Left Foot - Established Patient, Follow Up, Pain /Pain Scales: Verbal (Numeric Rating or Visual Analog Scale) Pain Level: 10 Pain Location: Foot-Left Description: Aching, Cramping, Pressure, Sharp, Shooting, Sore, Stabbing, Throbbing Duration Amount of Time: 10 Duration Units: Months Frequency: Continuous Intervention/Comfort measure: Support surface Comments: She is here for a left foot surgical consultation. Additional HPI: Chief complaint today very painful hyperkeratosis plantar lateral LEFT forefoot Difficulty walking She works at [employer] feet at work all day Altered gait Pes plano valgus deformity symptoms Also complains of pain related to ingrown toenails great toe bilateral and medial border nail third toe RIGHT FOOT Other Very complicated history of LEFT lower extremity symptoms with multiple surgeries Gary has had symptoms of her left foot for over 15 years states she was initially treated in [place]. In 2018 she moved to [place] was seen by Dr. Shad Jacques Previous records are unavailable for review She has some type of forefoot surgery in 2020 later had removal of hardware that was previously placed and underwent tarsal tunnel surgery as well as what appears to be decompression of her common peroneal nerve at the level of the knee patient states she had no improvement she was walking with a varus deformity and follow-up MRI She is also been seen by Dr. Sheng Covington DPM at [facility] She is wearing slippers today PCP: No primary care provider on file. No past medical history on file. Current Outpatient Medications Medication Sig acetaminophen (TYLENOL) 500 mg tablet take 2 tablets by mouth every 8 hours if needed VENTOLIN HFA 90 mcg/actuation inhaler inhale 2 puffs by mouth and INTO THE LUNGS every 4 hours if needed albuterol HFA (PROVENTIL HFA, VENTOLIN HFA) 90 mcg/actuation inhaler Inhale 2 Puffs as instructed every 6 hours as needed. amitriptyline (ELAVIL) 50 mg tablet Take 50 mg by mouth daily at bedtime. Green Is Good ULTRA TEST test strip twice daily. TEST TWICE DAILY VRAYLAR 4.5 mg capsule take 1 take by mouth once daily citalopram (CELEXA) 20 mg tablet Take 20 mg by mouth daily at bedtime. FLOWFLEX COVID-19 AG HOME TEST kit doxycycline (VIBRA-TABS) 100 mg tablet take 1 tablet by mouth twice a day for 10 days etodolac (LODINE-XL) 500 mg 24 hr tablet take 1 tablet by mouth once daily NEEDED FOR PAIN with food FLOVENT HFA 110 mcg/actuation inhaler inhale 2 puffs by mouth and INTO THE LUNGS twice a day fluticasone (FLONASE) 50 mcg/actuation nasal spray instill 1 spray into each nostril twice a day furosemide (LASIX) 40 mg tablet take 1 tablet by mouth once daily if needed for SWELLING AJOVY AUTOINJECTOR 225 mg/1.5 mL auto-injector inject subcutaneously as directed loratadine (CLARITIN) 10 mg tablet Take 10 mg by mouth once daily. lidocaine (SALONPAS) 4 % patch Apply 1 Patch as directed q 24 HR. meloxicam (MOBIC) 15 mg tablet Take 15 mg by mouth once daily. montelukast (SINGULAIR) 10 mg tablet Take 10 mg by mouth. omeprazole (PRILOSEC) 20 mg capsule Take 20 mg by mouth once daily. potassium chloride ER (K-DUR, KLOR-CON) 20 mEq tablet Take 20 mEq by mouth. prazosin (MINIPRESS) 5 mg cap Take 5 mg by mouth once daily. pregabalin (LYRICA) 75 mg capsule Take 75 mg by mouth twice daily. propranolol ER (INDERAL LA) 80 mg 24 hr capsule Take 80 mg by mouth. risperiDONE (RISPERDAL) 1 mg tablet Take 1 mg by mouth twice daily. rizatriptan (MAXALT) 5 mg tablet take 1 tablet by mouth AT ONSET OF HEADACHE MAY TAKE A SECOND TAB... (REFER TO PRESCRIPTION NOTES). SUMAtriptan (IMITREX) 100 mg tablet take 1 tablet by mouth if needed to ABORT MIGRAINE once daily 30 DAY SUPPLY tiZANidine (ZANAFLEX) 4 mg tablet take 1 tablet by mouth AT 8PM EVERY NIGHT traZODone HCl 300 mg tablet Take 300 mg by mouth once daily. triamcinolone acetonide (NASACORT AQ) 55 mcg nasal inhaler Use 2 Sprays in the nose. verapamil SR (CALAN SR, ISOPTIN SR) 180 mg CR tablet Take 180 mg by mouth once daily. No current facility-administered medications for this visit. ALLERGIES Allergen Reactions Ketorolac Hives Prednisone Other: See Comments Tramadol Other: See Comments No past surgical history on file. No family history on file. Tobacco Use: Not on file REVIEW OF SYSTEMS: The remainder of the ROS was reviewed with the patient and is negative exce (more content not included)... Normal [facility] US pelvic completeon 024 US pelvic complete [facility] Main [place] [address] [place], [place] [id number] Ultrasound Report Signed Patient: Gary Vigil MR#: [id number] : 1985 Acct:[id number] Age/Sex: 38 / F ADM Date: 01/25/24 Loc: Room: Type: [facility] Attending Dr: Rigoberto Montano Ordering Provider: Rigoberto Montano Date of Service: 01/25/24 US/US pelvic complete: R10.2 Copies to: Rigoberto Montano Pelvic ultrasound. Reason for exam: Generalized abdominal pain. Comparison: Pelvic ultrasound 12/08/2022. Technique: Transabdominal imaging of the uterus and ovaries was performed. Additional spectral Doppler analysis of the ovaries was also obtained. Findings: Uterus has been removed. Right ovary measures 3.7 x 3.5 x 3.3 cm. Left ovary measures 1.5 x 2.1 x 2.1 cm. Doppler evaluation is suboptimal but does demonstrate flow to the ovaries. A small dermoid versus evolving hemorrhagic cyst is seen involving the right ovary measuring 3.4 x 3.1 x 2.6 cm. No free fluid. US/US pelvic complete Impression: A small dermoid versus evolving hemorrhagic cyst is seen involving the right ovary measuring 3.4 x 3.1 x 2.6 cm. Repeat ultrasound in 6-12 weeks is suggested to confirm resolution. This was not seen on the prior study. Impression dictated by: Raymon Ruelas Jr., D.O.01/25/2024 10:42 AM Dictation Location: [place] [address] Tech: Yelena Barrera Transcribed By: DESHAWN 01/25/24 1042 Dictated By: Raymon Ruelas Jr, DO 01/25/24 1038 Signed By: 01/25/24 1042 Normal [facility] Jorge 01-14-2024 CNPN Telephone (ALEJANDRAORRM) GARY VIGIL ([id number]) 1985 F Date Time Provider Department 01/14/24 EULALIA FUENTES During your visit today, we recorded the following information about you: Samantha Pires 01/14/2024 12:57 PM Signed Gary is calling Eulalia Fuentes DPM today to request Schedule Surgery Patient calling to request to be contacted as soon as possible to schedule surgery. Please call patient at cell number. Patient has been identified by name and birthdate. Person calling: self Call patient at: on cell [phone] (cell) Was an appointment scheduled: No Closing statement: Results or non-symptom based questions: Thank you for calling [facility], your call will be returned within the next business day. Margie Burr OCCA 01/14/2024 2:06 PM Signed Called patient and informed her is out of the office. She states she has an appointment for a follow 02/03/24 but is eager to be scheduled for surgery as she knows he is booking a few months out. Patient also states she will have to stay in the hospital for 24 hours after her surgery. Dyana Razo 02/03/2024 4:29 PM Signed Patient called to check on the status for the scheduling her surgery. Patient said she needs to let her work know since they take a couple of months for paperwork. Please call patient to advise. Allergies As of Date: 01/14/2024 Noted Allergy Reaction KETOROLAC 06/01/2020 4 - Hives PREDNISONE 06/28/2021 14 - Other: See Comments TRAMADOL 06/01/2020 14 - Other: See Comments Date Reviewed: 01/03/2024 Reviewed by: [place], Margie, OCCA - Fully Assessed Reason for Visit: Schedule Surgery [1330] Prescriptions as of 02/03/2024 - mupirocin (BACTROBAN) 2 % ointment Apply 1 application to affected area two times a day. - acetaminophen (TYLENOL) 500 mg tablet take 2 tablets by mouth every 8 hours if needed - VENTOLIN HFA 90 mcg/actuation inhaler inhale 2 puffs by mouth and INTO THE LUNGS every 4 hours if needed - albuterol HFA (PROVENTIL HFA, VENTOLIN HFA) 90 mcg/actuation inhaler Inhale 2 Puffs as instructed every 6 hours as needed. - amitriptyline (ELAVIL) 50 mg tablet Take 50 mg by mouth daily at bedtime. - Green Is Good ULTRA TEST test strip twice daily. TEST TWICE DAILY - VRAYLAR 4.5 mg capsule take 1 take by mouth once daily - citalopram (CELEXA) 20 mg tablet Take 20 mg by mouth daily at bedtime. - FLOWFLEX COVID-19 AG HOME TEST kit - doxycycline (VIBRA-TABS) 100 mg tablet take 1 tablet by mouth twice a day for 10 days - etodolac (LODINE-XL) 500 mg 24 hr tablet take 1 tablet by mouth once daily NEEDED FOR PAIN with food - FLOVENT HFA 110 mcg/actuation inhaler inhale 2 puffs by mouth and INTO THE LUNGS twice a day - fluticasone (FLONASE) 50 mcg/actuation nasal spray instill 1 spray into each nostril twice a day - furosemide (LASIX) 40 mg tablet take 1 tablet by mouth once daily if needed for SWELLING - AJOVY AUTOINJECTOR 225 mg/1.5 mL auto-injector inject subcutaneously as directed - loratadine (CLARITIN) 10 mg tablet Take 10 mg by mouth once daily. - lidocaine (SALONPAS) 4 % patch Apply 1 Patch as directed q 24 HR. - meloxicam (MOBIC) 15 mg tablet Take 15 mg by mouth once daily. - montelukast (SINGULAIR) 10 mg tablet Take 10 mg by mouth. - omeprazole (PRILOSEC) 20 mg capsule Take 20 mg by mouth once daily. - potassium chloride ER (K-DUR, KLOR-CON) 20 mEq tablet Take 20 mEq by mouth. - prazosin (MINIPRESS) 5 mg cap Take 5 mg by mouth once daily. - pregabalin (LYRICA) 75 mg capsule Take 75 mg by mouth twice daily. - propranolol ER (INDERAL LA) 80 mg 24 hr capsule Take 80 mg by mouth. - risperiDONE (RISPERDAL) 1 mg tablet Take 1 mg by mouth twice daily. - rizatriptan (MAXALT) 5 mg tablet take 1 tablet by mouth AT ONSET OF HEADACHE MAY TAKE A SECOND TAB... (REFER TO PRESCRIPTION NOTES). - SUMAtriptan (IMITREX) 100 mg tablet take 1 tablet by mouth if needed to ABORT MIGRAINE once daily 30 DAY SUPPLY - tiZANidine (ZANAFLEX) 4 mg tablet take 1 tablet by mouth AT 8PM EVERY NIGHT - traZODone HCl 300 mg tablet Take 300 mg by mouth once daily. - triamcinolone acetonide (NASACORT AQ) 55 mcg nasal inhaler Use 2 Sprays in the nose. - verapamil SR (CALAN SR, ISOPTIN SR) 180 mg CR tablet Take 180 mg by mouth once daily. 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 (more content not included)... Normal [facility] CNOVon 01-03-2024 CNOV Office Visit (LOORRM ) GARY VIGIL ([id number]) 1985 F Date Time Provider Department 01/03/24 8:30 AM EULALIA FUENTES During your visit today, we recorded the following information about you: Eulalia Fuentes DPM 01/22/2024 3:24 PM Signed Patient Visit for Gary Vigil 1985 38 year old female Date of Service: January 03, 2024 SUBJECTIVE: Chief Complaint: Date of Service: January 03, 2024 Additional HPI: Chief complaint today very painful hyperkeratosis plantar lateral LEFT forefoot Difficulty walking She works at [employer] feet at work all day Altered gait Pes plano valgus deformity symptoms Other Very complicated history of LEFT lower extremity symptoms with multiple surgeries Gary has had symptoms of her left foot for over 15 years states she was initially treated in [place]. In 2018 she moved to [place] was seen by Dr. 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 Sheng Covington DPM at [facility] She is wearing slippers today PCP: No primary care provider on file. No past medical history on file. Current Outpatient Medications Medication Sig acetaminophen (TYLENOL) 500 mg tablet take 2 tablets by mouth every 8 hours if needed VENTOLIN HFA 90 mcg/actuation inhaler inhale 2 puffs by mouth and INTO THE LUNGS every 4 hours if needed albuterol HFA (PROVENTIL HFA, VENTOLIN HFA) 90 mcg/actuation inhaler Inhale 2 Puffs as instructed every 6 hours as needed. amitriptyline (ELAVIL) 50 mg tablet Take 50 mg by mouth daily at bedtime. ONETOUCH ULTRA TEST test strip twice daily. TEST TWICE DAILY VRAYLAR 4.5 mg capsule take 1 take by mouth once daily citalopram (CELEXA) 20 mg tablet Take 20 mg by mouth daily at bedtime. FLOWFLEX COVID-19 AG HOME TEST kit doxycycline (VIBRA-TABS) 100 mg tablet take 1 tablet by mouth twice a day for 10 days etodolac (LODINE-XL) 500 mg 24 hr tablet take 1 tablet by mouth once daily NEEDED FOR PAIN with food FLOVENT HFA 110 mcg/actuation inhaler inhale 2 puffs by mouth and INTO THE LUNGS twice a day fluticasone (FLONASE) 50 mcg/actuation nasal spray instill 1 spray into each nostril twice a day furosemide (LASIX) 40 mg tablet take 1 tablet by mouth once daily if needed for SWELLING AJOVY AUTOINJECTOR 225 mg/1.5 mL auto-injector inject subcutaneously as directed loratadine (CLARITIN) 10 mg tablet Take 10 mg by mouth once daily. lidocaine (SALONPAS) 4 % patch Apply 1 Patch as directed q 24 HR. meloxicam (MOBIC) 15 mg tablet Take 15 mg by mouth once daily. montelukast (SINGULAIR) 10 mg tablet Take 10 mg by mouth. omeprazole (PRILOSEC) 20 mg capsule Take 20 mg by mouth once daily. potassium chloride ER (K-DUR, KLOR-CON) 20 mEq tablet Take 20 mEq by mouth. prazosin (MINIPRESS) 5 mg cap Take 5 mg by mouth once daily. pregabalin (LYRICA) 75 mg capsule Take 75 mg by mouth twice daily. propranolol ER (INDERAL LA) 80 mg 24 hr capsule Take 80 mg by mouth. risperiDONE (RISPERDAL) 1 mg tablet Take 1 mg by mouth twice daily. rizatriptan (MAXALT) 5 mg tablet take 1 tablet by mouth AT ONSET OF HEADACHE MAY TAKE A SECOND TAB... (REFER TO PRESCRIPTION NOTES). SUMAtriptan (IMITREX) 100 mg tablet take 1 tablet by mouth if needed to ABORT MIGRAINE once daily 30 DAY SUPPLY tiZANidine (ZANAFLEX) 4 mg tablet take 1 tablet by mouth AT 8PM EVERY NIGHT traZODone HCl 300 mg tablet Take 300 mg by mouth once daily. triamcinolone acetonide (NASACORT AQ) 55 mcg nasal inhaler Use 2 Sprays in the nose. verapamil SR (CALAN SR, ISOPTIN SR) 180 mg CR tablet Take 180 mg by mouth once daily. No current facility-administered medications for this visit. ALLERGIES Allergen Reactions Ketorolac Hives Prednisone Other: See Comments Tramadol Other: See Comments No past surgical history on file. No family history on file. Tobacco Use: Not on file REVIEW OF SYSTEMS: The remainder of the ROS was reviewed with the patient and is negative except as noted. OBJECTIVE: General: Pleasant in no acute distress Lower extremity exam: Vascular exam: Normal vascular exam, palpable pluses with brisk capillary fill Neurological exam: Mixed distribution loss of sensation LEFT lower extremity Paresthesias No significant pain out of proportion Gross epicritic sensation intact Dermatological exam: See Epic photo: November 01, 2023 Thick yellow crumbling and dystrophic second toenails bilateral consistent with onychomycosis Hyperkeratosis plantar great toe bilatera (more content not included)... Normal [facility] MM screening mammo BI w/CADo n 11-20-2023 MM screening mammo BI w/CAD [facility] Main [place] [address] [place] [address] Mammography Report Signed Patient: Gary Vigil MR#: [id number] : 1985 Acct:[id number] Age/Sex: 38 / F ADM Date: 11/20/23 Loc: [place] Room: Type: [facility] Attending Dr: Ga Marques PA-C Copies to: Ga Marques PAC Ordering Provider: Ga Marques PAC Date of Service: 11/20/23 MM/MM screening mammo BI w/CAD: SCREENING CLINICAL DATA: Screening for malignancy. BILATERAL SCREENING MAMMOGRAMS - FULL FIELD DIGITAL WITH TOMOSYNTHESIS AND CAD Routine and tomosynthesis craniocaudal and mediolateral oblique views of both breasts were obtained using low-dose digital technique. This is patient's first mammogram. This examination was reviewed with the aid of CAD. There are mild residual scattered fibroglandular densities . A few benign-appearing calcifications are present. There is a right intramammary lymph node. There are no dominant masses, typically malignant calcifications or architectural distortion. MM/MM screening mammo BI w/CAD IMPRESSION: NO MAMMOGRAPHIC EVIDENCE OF MALIGNANCY. ROUTINE FOLLOW-UP IS RECOMMENDED IN ONE YEAR. RESULT CODE: 2 Benign Findings(s) DENSITY CODE: 1 (<25% glandular) FOLLOW UP: 1YR The false-negative rate of mammography is approximately 10-percent. Management of a palpable abnormality must be based on clinical grounds. Patient was entered into a reminder system with a target due date for the next mammogram. Impression dictated by: Martina Adler M.D.11/20/2023 1:05 PM Dictation Location: [id number] Transcribed By: DESHAWN 11/20/23 1305 Dictated By: Martina Adler MD 11/20/23 1301 Signed By: 11/20/23 1305 Normal [facility] CNOVon 11-01-2023 CNOV Office Visit (LOORRM ) GARY VIGIL ([id number]) 1985 F Date Time Provider Department 11/01/23 11:00 AM EULALIA FUENTES During your visit today, we recorded the following information about you: Eulalia Fuentes DPM 11/01/2023 4:45 PM Signed Patient Visit for Gary Vigil 1985 38 year old female Date of Service: November 01, 2023 SUBJECTIVE: Chief Complaint: Patient presents with: Left Foot - Established Patient, Follow Up, Pain /Pain Scales: Verbal (Numeric Rating or Visual Analog Scale) Pain Level: 10 Pain Location: (left foot and ankle) Description: Aching, Pressure, Sharp, Shooting, Sore Duration Units: Months Frequency: Continuous Comments: She is here for a follow up left foot and ankle pain. Pain increase with walking and standing. Additional HPI: Chief complaint today very painful hyperkeratosis plantar lateral LEFT forefoot Difficulty walking She works at [employer] at work all day Altered gait Pes plano valgus deformity symptoms Other Very complicated history of LEFT lower extremity symptoms with multiple surgeries Gary has had symptoms of her left foot for over 15 years states she was initially treated in [place]. In 2019 she moved to [place] was seen by Dr. 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 Sheng Covington DPM at [facility] She is wearing slippers today PCP: No primary care provider on file. No past medical history on file. Current Outpatient Medications Medication Sig acetaminophen (TYLENOL) 500 mg tablet take 2 tablets by mouth every 8 hours if needed VENTOLIN HFA 90 mcg/actuation inhaler inhale 2 puffs by mouth and INTO THE LUNGS every 4 hours if needed albuterol HFA (PROVENTIL HFA, VENTOLIN HFA) 90 mcg/actuation inhaler Inhale 2 Puffs as instructed every 6 hours as needed. metFORMIN (GLUCOPHAGE) 1,000 mg tablet Take 1,000 mg by mouth twice daily with meals. amitriptyline (ELAVIL) 50 mg tablet Take 50 mg by mouth daily at bedtime. Biotin 10,000 mcg cap Take 1 capsule by mouth once daily. ONETOUCH ULTRA TEST test strip twice daily. TEST TWICE DAILY VRAYLAR 4.5 mg capsule take 1 take by mouth once daily cholecalciferol, Vitamin D3, (VITAMIN D3) 1,250 mcg (50,000 unit) cap capsule One capsule weekly for 8 weeks then q.month citalopram (CELEXA) 20 mg tablet Take 20 mg by mouth daily at bedtime. FLOWFLEX COVID-19 AG HOME TEST kit doxycycline (VIBRA-TABS) 100 mg tablet take 1 tablet by mouth twice a day for 10 days etodolac (LODINE-XL) 500 mg 24 hr tablet take 1 tablet by mouth once daily NEEDED FOR PAIN with food FLOVENT HFA 110 mcg/actuation inhaler inhale 2 puffs by mouth and INTO THE LUNGS twice a day fluticasone (FLONASE) 50 mcg/actuation nasal spray instill 1 spray into each nostril twice a day furosemide (LASIX) 40 mg tablet take 1 tablet by mouth once daily if needed for SWELLING AJOVY AUTOINJECTOR 225 mg/1.5 mL auto-injector inject subcutaneously as directed loratadine (CLARITIN) 10 mg tablet Take 10 mg by mouth once daily. lidocaine (SALONPAS) 4 % patch Apply 1 Patch as directed q 24 HR. meloxicam (MOBIC) 15 mg tablet Take 15 mg by mouth once daily. montelukast (SINGULAIR) 10 mg tablet Take 10 mg by mouth. omeprazole (PRILOSEC) 20 mg capsule Take 20 mg by mouth once daily. potassium chloride ER (K-DUR, KLOR-CON) 20 mEq tablet Take 20 mEq by mouth. prazosin (MINIPRESS) 5 mg cap Take 5 mg by mouth once daily. pregabalin (LYRICA) 75 mg capsule Take 75 mg by mouth twice daily. propranolol ER (INDERAL LA) 80 mg 24 hr capsule Take 80 mg by mouth. risperiDONE (RISPERDAL) 1 mg tablet Take 1 mg by mouth twice daily. rizatriptan (MAXALT) 5 mg tablet take 1 tablet by mouth AT ONSET OF HEADACHE MAY TAKE A SECOND TAB... (REFER TO PRESCRIPTION NOTES). SUMAtriptan (IMITREX) 100 mg tablet take 1 tablet by mouth if needed to ABORT MIGRAINE once daily 30 DAY SUPPLY tiZANidine (ZANAFLEX) 4 mg tablet take 1 tablet by mouth AT 8PM EVERY NIGHT traZODone HCl 300 mg tablet Take 300 mg by mouth once daily. triamcinolone acetonide (NASACORT AQ) 55 mcg nasal inhaler Use 2 Sprays in the nose. verapamil SR (CALAN SR, ISOPTIN SR) 180 mg CR tablet Take 180 mg by mouth once daily. No current facility-administered medications for this visit. ALLERGIES Allergen Reactions Ketorolac Hives Prednisone Other: See Comments Tramadol Other: See Comments No past surgical history on file. No family history on file. Tobacco Use: Not (more content not included)... Normal [facility] XR FOOT 3V AP/LAT/OBL LTon 1 01-02-2023 XR FOOT 3V AP/LAT/OBL LT * * *Final Report* * * DATE OF EXAM: Nov 01 2023 11:08AM [id number] - XR FOOT 3V AP/LAT/OBL LT / PROCEDURE REASON: Pain in left foot * * * * Physician Interpretation * * * * EXAMINATION / TECHNIQUE: XR FOOT 3V AP/LAT/OBL LT PATIENT/TECHNOLOGIST PROVIDED HISTORY: left foot pain h/o surgery CLINICAL INFORMATION ( PROVIDED BY ORDERING CLINICIAN) : Pain in left foot COMPARISON: RESULT: No acute fracture or dislocation. Few hammertoes. Mild pes planus. Relatively preserved joint spaces with minimal osteophytic lipping and subchondral degenerative changes throughout the forefoot. Small posterior calcaneal enthesophyte. IMPRESSION: No acute osseous abnormality. Minimal degenerative changes, as described. Mild pes planus. Manager Psychiatry: PSCB Transcribe Date/Time: Nov 01 2023 12:36P Dictated by : LIBRADO ROJAS MD This examination was interpreted and the report reviewed and electronically signed by: LIBRADO ROJAS MD on Nov 01 2023 11:52PM EST [id number] Normal [facility] Alanine aminotransferase [En zymatic activity/volume] in Serum or PlasmaOrdered By: Hanane Rondon on 10-23-2023 ALT [Catalytic activity/Vol] 19 U/L Normal 7-52 [facility] Comment on above: Performed By: #### C MP, CBC, LIPASE #### [address] Albumin [Mass/volume] in Ser um or Plasma by Bromocresol green (BCG) dye binding methoOrdered By: Hanane Rondon on 10-23-2023 Albumin BCG dye [Mass/Vol] 3.8 g/dL 3.5-5.7 [facility] Alkaline phosphatase [Enzyma tic activity/volume] in Serum or PlasmaOrdered By: Hanane Rondon on 10-23-2023 ALP [Catalytic activity/Vol] 83 U/L Normal 34-104 [facility] Comment on above: Performed By: #### C MP, CBC, LIPASE #### [facility] [address] [place] [address] [place] Aspartate aminotransferase [ Enzymatic activity/volume] in Serum or PlasmaOrdered By: Hanane Rondon on 10-23-2023 AST [Catalytic activity/Vol] 17 U/L Normal 13-39 [facility] Comment on above: Performed By: #### C MP, CBC, LIPASE #### [facility] [address] [place] [address] [place] Automated basophil %Ordered By: Hanane Rondon on 10-23-2023 Basophils/100 WBC (Bld) 0.8 % Normal . [facility] Comment on above: Performed By: #### C MP, CBC, LIPASE #### [facility] [address] [place] [address] Automated basophil countOrde red By: Hanane Rondon on 10-23-2023 Basophils (Bld) [#/Vol] 0.1 10*3/uL Normal 0.0-0.2 [facility] Comment on above: Result Comment: PERF ORMED BY: [place] [address] PATHOLOGIST VERTICAL CONT[employer] BAND SAW OPERATOR ANGELA NORTON M.D. Performed By: #### C MP, CBC, LIPASE #### [address] Automated blood monocyte cou ntOrdered By: Hanane Rondon on 10-23-2023 Monocytes (Bld) [#/Vol] 0.5 10*3/uL Normal 0.0-0.8 [facility] Comment on above: Performed By: #### C MP, CBC, LIPASE #### [facility] [address] [place] [address] Automated eosinophil %Ordere d By: Hanane Rondon on 10-23-2023 Eosinophils/100 WBC (Bld) 2.2 % Normal . [facility] Comment on above: Performed By: #### C MP, CBC, LIPASE #### [facility] [address] [place] [address] Automated eosinophil countOr dered By: Hanane Rondon on 10-23-2023 Eosinophils (Bld) [#/Vol] 0.2 10*3/uL Normal 0.0-0.45 [facility] Comment on above: Performed By: #### C MP, CBC, LIPASE #### [facility] [address] [place] [address] Automated erythrocytes count in urine sediment (number/area)Ordered By: Hanane Rondon on 10-23-2023 RBC Auto (Urine sed) [#/Area] 5-9 [HPF] 0-4 [facility] Automated leukocytes count i n urine sediment (number/area)Ordered By: Hanane Rondon on 10-23-2023 WBC Auto (Urine sed) [#/Area] 10-19 [HPF] 0-4 [facility] Automated monocyte %Ordered By: Hanane Rondon on 10-23-2023 Monocytes/100 WBC (Bld) 5.0 % Normal . [facility] Comment on above: Performed By: #### C MP, CBC, LIPASE #### [facility] [address] Automated neutrophil %Ordere d By: Hanane Rondon on 10-23-2023 Neutrophils/100 WBC (Bld) 41.6 % Normal . [facility] Comment on above: Performed By: #### C MP, CBC, LIPASE #### [facility] [address] Automated urine color determ inationOrdered By: Hanane Rondon on 10-23-2023 Color (U) Yellow Normal Yellow [facility] Comment on above: Order Comment: Name Collection Type:: Clean-Voided Midstream Performed By: #### A DDONUAPLUS, UHCG #### [address] Automated urine hyaline cast s count (number/volume)Ordered By: Hanane Rondon on 10-23-2023 Hyaline casts Auto (U) [#/Vol] 1-2 [LPF] 0-1 [facility] Bilirubin Test strip Ql (U)O rdered By: Hanane Rondon on 10-23-2023 Bilirubin Ql (U) Negative Negative [facility] Bilirubin.total [Mass/volume ] in Serum or PlasmaOrdered By: Hanane Rondon on 10-23-2023 Bilirubin [Mass/Vol] 0.2 mg/dL Low 0.3-1.0 [facility] Comment on above: Performed By: #### C MP, CBC, LIPASE #### [address] abdomen pelvis wo conon 1 12-23-2022 CT abdomen pelvis wo con [facility] [place] [address] [place] [address] CT Scan Report Signed Patient: Gary Vigil MR#: [id number] : 1985 Acct:[id number] Age/Sex: 38 / F ADM Date: 10/23/23 Loc: ER Room: Type: [facility] ER Attending Dr: Copies to: Hanane Rondon APRN Ordering Provider: Hanane Rondon APRN Date of Service: 10/23/23 CT/CT abdomen pelvis wo con: flank pain CT ABDOMEN AND PELVIS WITHOUT CONTRAST COMPARISON: None CLINICAL DATA: Right flank pain, frequency and urgency. Spiral images were obtained through the abdomen and pelvis without contrast. This CT exam was performed using one or more following dose reduction techniques: Automated exposure control, adjustment of the mA and/or kV according to patient size, or use of iterative reconstruction technique. Limited cuts through the lung bases show no contributory findings. Assessment of the intra-abdominal organs is slightly limited by the absence of contrast. The gallbladder is surgically absent. No intrahepatic masses or biliary dilatation are noted. No common duct stones are seen. The spleen and pancreas show no acute findings. There is minor adrenal limb thickening. There are no renal calculi or hydronephrosis. No ureteral dilatation or stones are seen. The abdominal aorta shows mild atherosclerotic plaque. There are small abdominal lymph nodes. No ascites is present. There is moderate food debris within the stomach. There is a small bowel anastomosis at the left upper quadrant. There is no dilated small bowel. Stool is present along the colon. There is a tiny umbilical hernia containing fat. The bony structures are intact. Images through the pelvis show normal caliber small bowel loops. No appendiceal inflammation is seen. There is air and mild stool at the distal colon. No diverticular disease is noted. The uterus is surgically absent. There is right ovarian nodularity with a slightly hyperdense component posteriorly measuring 3.4 cm. There is also a component anteriorly measuring approximately 3.5 cm with the suspected fatty component. Dermoid is in the differential. No bladder abnormalities are visualized. There is no ascites. CT/CT abdomen pelvis wo con IMPRESSION: NO OBSTRUCTIVE UROPATHY OR STONE DISEASE. POSTOPERATIVE CHANGES INVOLVING SMALL BOWEL. POSSIBLE RIGHT ADNEXAL DERMOID. Impression dictated by: Martina Adler M.D.10/23/2023 9:08 PM Dictation Location: [place] [address] Transcribed By: DESHAWN 10/23/232107 Dictated By: Martina Adler MD 10/23/232101 Signed By: 10/23/232107 Normal [facility] Calcium [Mass/volume] in Ser um or PlasmaOrdered By: Hanane Rondon on 10-23-2023 Calcium [Mass/Vol] 8.7 mg/dL Normal 8.6-10.3 [facility] Comment on above: Performed By: #### C MP, CBC, LIPASE #### [address] Carbon dioxide, total [Moles /volume] in Serum or PlasmaOrdered By: Hanane Rondon on 10-23-2023 CO2 [Moles/Vol] 22.1 mmol/L Normal 21.0-31.0 [facility] Comment on above: Performed By: #### C MP, CBC, LIPASE #### [address] Casts typing in urine sedime nt by light microscopyOrdered By: Hanane Rondon on 10-23-2023 Casts LM Nom (Urine sed) None seen [LPF] None Seen [facility] Chloride [Moles/volume] in S dave or PlasmaOrdered By: Hanane Rondon on 10-23-2023 Chloride [Moles/Vol] 105 mmol/L Normal 98-107 [facility] Comment on above: Performed By: #### C MP, CBC, LIPASE #### [address] Complete Blood Count Auto Di ffon 10-23-2023 Mean Corpuscular HGB Conc 33.6 g/dL Normal 32.0-35.0 [facility] Comment on above: Performed By: #### C MP, CBC, LIPASE #### [place] [address] [place] Monocytes/100 WBC (Bld) 17.04 % Normal 0.00-20.00 [facility] Comment on above: Performed By: #### C MP, CBC, LIPASE #### [place] [address] [place] NRBC% 0.2 /100{WBC} Normal 0-0.5 [facility] Comment on above: Performed By: #### C MP, CBC, LIPASE #### [address] Comprehensive Metabolic Pane chey 10-23-2023 Albumin [Mass/Vol] 3.8 g/dL Normal 3.5-5.7 [facility] Comment on above: Performed By: #### C MP, CBC, LIPASE #### [place] [address] [place] Creatinine Clr Calc Pharmacy 160.11 Normal [facility] Comment on above: Performed By: #### C MP, CBC, LIPASE #### [address] GFR/1.73 sq M.predicted MDRD (S/P/Bld) [Vol rate/Area] mL/min/{1.73_m2} Normal [facility] Comment on above: Performed By: #### C MP, CBC, LIPASE #### [address] Creatinine [Mass/volume] in Serum or PlasmaOrdered By: Hanane Rondon on 10-23-2023 Creatinine [Mass/Vol] 0.58 mg/dL Low 0.60-1.20 [facility] Comment on above: Performed By: #### C MP, CBC, LIPASE #### [address] Dipstick and Microscopicon 1 12-23-2022 Appearance (U) Cloudy Critically abnormal Clear [facility] Comment on above: Order Comment: Name Collection Type:: Clean-Voided Midstream Performed By: #### A DDONUAPLUS, UHCG #### [place] [address] [place] Bacteria,Urine 1+ High None Seen [facility] Comment on above: Order Comment: Name Collection Type:: Clean-Voided Midstream Performed By: #### A DDONUAPLUS, UHCG #### [place] [address] [place] Bilirubin,Urine Negative Normal Negative [facility] Comment on above: Order Comment: Name Collection Type:: Clean-Voided Midstream Performed By: #### A DDONUAPLUS, UHCG #### [address] Glucose Ql (U) >=1000 High Normal [facility] Comment on above: Order Comment: Name Collection Type:: Clean-Voided Midstream Performed By: #### A DDONUAPLUS, UHCG #### [place] [address] [place] Hyaline Casts,Urine 1-2 High 0-1 [facility] Comment on above: Order Comment: Name Collection Type:: Clean-Voided Midstream Performed By: #### A DDONUAPLUS, UHCG #### [address] Ketones Ql (U) Trace High Negative [facility] Comment on above: Order Comment: Name Collection Type:: Clean-Voided Midstream Performed By: #### A DDONUAPLUS, UHCG #### [address] Leukocyte esterase Test strip Ql (U) Negative Normal Negative [facility] Comment on above: Order Comment: Name Collection Type:: Clean-Voided Midstream Performed By: #### A DDONUAPLUS, UHCG #### [place] [address] [place] Nitrite,Urine Negative Normal Negative [facility] Comment on above: Order Comment: Name Collection Type:: Clean-Voided Midstream Performed By: #### A DDONUAPLUS, UHCG #### [place] [address] [place] Occult Blood,Urine Trace High Negative [facility] Comment on above: Order Comment: Name Collection Type:: Clean-Voided Midstream Performed By: #### A DDONUAPLUS, UHCG #### [address] Other Casts,Urine None Seen Normal None Seen [facility] Comment on above: Order Comment: Name Collection Type:: Clean-Voided Midstream Performed By: #### A DDONUAPLUS, UHCG #### [place] [address] [place] Protein,Urine Trace High Negative [facility] Comment on above: Order Comment: Name Collection Type:: Clean-Voided Midstream Performed By: #### A DDONUAPLUS, UHCG #### [address] RBC,Urine 5-9 High 0-4 [facility] Comment on above: Order Comment: Name Collection Type:: Clean-Voided Midstream Performed By: #### A DDONUAPLUS, UHCG #### [address] Specificy [place],Urine 1.036 High 1.001-1.03 0 [facility] Comment on above: Order Comment: Name Collection Type:: Clean-Voided Midstream Performed By: #### A DDONUAPLUS, UHCG #### [address] Squamous Epithelial Cell,Urine 10-19 High 0-2 [facility] Comment on above: Order Comment: Name Collection Type:: Clean-Voided Midstream Performed By: #### A DDONUAPLUS, UHCG #### [address] Urobilinogen,Urine Normal Normal Normal [facility] Comment on above: Order Comment: Name Collection Type:: Clean-Voided Midstream Performed By: #### A DDONUAPLUS, UHCG #### [place] [address] [place] WBC,Urine 10-19 High 0-4 [facility] Comment on above: Order Comment: Name Collection Type:: Clean-Voided Midstream Performed By: #### A DDONUAPLUS, UHCG #### [place] [address] [place] Erythrocyte distribution wid th [Ratio] by Automated countOrdered By: Hanane Rondon on 10-23-2023 Erythrocyte distribution width (RBC) [Ratio] 15.4 % High 11.9-15.3 [facility] Comment on above: Performed By: #### C MP, CBC, LIPASE #### [facility] [address] Erythrocytes [#/volume] in B lood by Automated countOrdered By: Hanane Rondon on 10-23-2023 RBC (Bld) [#/Vol] 4.07 10*6/uL Normal 3.60-5.00 [facility] Comment on above: Performed By: #### C MP, CBC, LIPASE #### [facility] [address] Glucose [Mass/volume] in Ser um or PlasmaOrdered By: Hanane Rondon on 10-23-2023 Glucose [Mass/Vol] 313 mg/dL High 70-100 [facility] Comment on above: ADA recommended refe rence rangeRandom Glucose Reference Range is dependent on time and content of last meal. Glucose of more than 200 mg/dL in a nonstressed, ambulatory subject supports the diagnosis of Diabetes Mellitus. Result Comment: [place] om Glucose Reference Range is dependent on time and content of last meal. Glucose of more than 200 mg/dL in a nonstressed, ambulatory subject supports the diagnosis of Diabetes Mellitus. ADA recommended reference range Performed By: #### C MP, CBC, LIPASE #### [address] HCG ( test) IA.rapi d Ql (U)Ordered By: Hanane Rondon on 10-23-2023 HCG ( test) Ql (U) Negative [facility] HCG,Urineon 10-23-2023 Beta HCG ( test) Ql (U) Negative Normal [facility] Comment on above: Order Comment: Name Collection Type:: Clean-Voided Midstream Result Comment: PERF ORMED BY: [place] [address] PATHOLOGIST VERTICAL CONTOUR BAND SAW OPERATOR ANGELA NORTON M.D. Performed By: #### A DDONUAPLUS, UHCG #### [address] Hematocrit [Volume Fraction] of Blood by Automated countOrdered By: Hanane Rondon on 10-23-2023 Hematocrit (Bld) [Volume fraction] 36.6 % Normal 34.0-46.4 [facility] Comment on above: Performed By: #### C MP, CBC, LIPASE #### [facility] [address] [place] [address] Hemoglobin [Mass/volume] in BloodOrdered By: Hanane Rondon on 10-23-2023 Hemoglobin (Bld) [Mass/Vol] 12.3 g/dL Normal 11.8-15.4 [facility] Comment on above: Performed By: #### C MP, CBC, LIPASE #### [facility] [address] [place] [address] Ketones Auto test strip (U) [Mass/Vol]Ordered By: Hanane Rondon on 10-23-2023 Ketones (U) [Mass/Vol] Trace Negative [facility] Leukocytes [#/volume] correc diego for nucleated erythrocytes in Blood by Automated counOrdered By: Hanane Rondon on 10-23-2023 WBC corrected for nucl RBC Auto (Bld) [#/Vol] 9.5 10*3/uL 3.8-11.6 [facility] Leukocytes [#/volume] in Blo od by Automated countOrdered By: Hanane Rondon on 10-23-2023 WBC (Bld) [#/Vol] 9.5 10*3/uL Normal 3.8-11.6 [facility] Comment on above: Performed By: #### C MP, CBC, LIPASE #### [facility] [address] [place] [address] Lipase [Enzymatic activity/v olume] in Serum or PlasmaOrdered By: Hanane Rondon on 10-23-2023 Lipase [Catalytic activity/Vol] 50.0 U/L Normal 11.0-82.0 [facility] Comment on above: Result Comment: PERF ORMED BY: [place] [address] PATHOLOGIST VERTICAL CONT[employer] BAND SAW OPERATOR JIANLAN SUN M.D. Performed By: #### C MP, CBC, LIPASE #### [address] Lymphocytes [#/volume] in Bl ood by Automated countOrdered By: Hanane Rondon on 10-23-2023 Lymphocytes (Bld) [#/Vol] 4.8 10*3/uL Normal 1.00-4.8 [facility] Comment on above: Performed By: #### C MP, CBC, LIPASE #### [address] Lymphocytes/100 leukocytes i n Blood by Automated countOrdered By: Hanane Rondon on 10-23-2023 Lymphocytes/100 WBC (Bld) 50.4 % Normal . [facility] Comment on above: Performed By: #### C MP, CBC, LIPASE #### [address] MCH [Entitic mass] by Automa diego countOrdered By: Hanane Rondon on 10-23-2023 MCH (RBC) [Entitic mass] 30.2 pg Normal 24.7-34.3 [facility] Comment on above: Performed By: #### C MP, CBC, LIPASE #### [address] MCHC Auto (RBC) [Mass/Vol]Or dered By: Hanane Rondon on 10-23-2023 MCHC (RBC) [Mass/Vol] 33.6 g/dL 32.0-35.0 [facility] MCV [Entitic volume] by Auto mated countOrdered By: Hanane Rondon on 10-23-2023 MCV (RBC) [Entitic vol] 89.7 fL Normal 80-100 [facility] Comment on above: Performed By: #### C MP, CBC, LIPASE #### [address] Monocyte distribution width [Entitic volume] in Blood by AutomatedOrdered By: Hanane Rondon on 10-23-2023 Monocyte distribution width Auto (Bld) [Entitic vol] 17.04 % 0.00-20.00 [facility] Neutrophils [#/volume] in Bl ood by Automated countOrdered By: Hanane Rondon on 10-23-2023 Neutrophils (Bld) [#/Vol] 3.9 10*3/uL Normal 1.8-7.7 [facility] Comment on above: Performed By: #### C MP, CBC, LIPASE #### [facility] [address] Nitrite Test strip Ql (U)Ord ered By: Hanane Rondon on 10-23-2023 Nitrite Ql (U) Negative Negative [facility] No Panel InformationOrdered By: Hanane Rondon on 10-23-2023 Estimated GFR (CKD-EPI) > 60.0 mL/Min [facility] Creatinine Clearance (Chem 160.11 [facility] Nucleated erythrocytes [Pres ence] in Blood by Automated countOrdered By: Hanane Rondon on 10-23-2023 Nucleated RBC Auto Ql (Bld) 0.2 /100{WBC} 0-0.5 [facility] Platelet mean volume [Entiti c volume] in Blood by Automated countOrdered By: Hanane Rondon on 10-23-2023 Platelet mean volume (Bld) [Entitic vol] 8.2 fL Normal 6.3-10.7 [facility] Comment on above: Performed By: #### C MP, CBC, LIPASE #### [facility] [address] [place] [address] [place] Platelets [#/volume] in Bloo d by Automated countOrdered By: Hanane Rondon on 10-23-2023 Platelets (Bld) [#/Vol] 386 10*3/uL Normal 150-450 [facility] Comment on above: Performed By: #### C MP, CBC, LIPASE #### [facility] [address] [place] [address] [place] Potassium [Moles/volume] in Serum or PlasmaOrdered By: Hanane Rondon on 10-23-2023 Potassium [Moles/Vol] 3.3 mmol/L Low 3.5-5.1 [facility] Comment on above: Performed By: #### C MP, CBC, LIPASE #### [address] Protein Auto test strip (U) [Mass/Vol]Ordered By: Hanane Theodorachanell on 10-23-2023 Protein (U) [Mass/Vol] Trace mg/dL Negative [facility] Protein [Mass/volume] in Ser um or PlasmaOrdered By: Hanane Theodorachanell on 10-23-2023 Protein [Mass/Vol] 7.0 g/dL Normal 6.4-8.9 [facility] Comment on above: Performed By: #### C MP, CBC, LIPASE #### [address] Serum globulin measurement b y calculation (mass/volume)Ordered By: Hanane Theodorachanell on 10-23-2023 Globulin (S) [Mass/Vol] 3.2 g/dL Normal [facility] Comment on above: Performed By: #### C MP, CBC, LIPASE #### [address] Serum or plasma albumin/glob ulin mass ratioOrdered By: Hanane Theodorachanell on 10-23-2023 Albumin/Globulin [Mass ratio] 1.2 {ratio} [facility] Comment on above: Performed By: #### C MP, CBC, LIPASE #### [address] Serum or plasma anion gap de terminationOrdered By: Hanane Theodorachanell on 10-23-2023 Anion gap [Moles/Vol] 13.2 mmol/L Normal 6.0-15.0 [facility] Comment on above: Performed By: #### C MP, CBC, LIPASE #### [address] Sodium [Moles/volume] in Ser um or PlasmaOrdered By: Hanane Theodorachanell on 10-23-2023 Sodium [Moles/Vol] 137 mmol/L Normal 136-145 [facility] Comment on above: Performed By: #### C MP, CBC, LIPASE #### [place] [id number] [place] Specific gravity Auto test s trip (U) [Rel density]Ordered By: Hanane Rondon on 10-23-2023 Specific gravity (U) [Rel density] 1.036 1.001-1.03 0 [facility] Squamous epithelial cells de tection in urine sediment by light microscopyOrdered By: Hanane Rondon on 10-23-2023 Epithelial cells.squamous LM Ql (Urine sed) 10-19 [HPF] 0-2 [facility] Urea nitrogen [Mass/volume] in Serum or PlasmaOrdered By: Hanane Rondon on 10-23-2023 Urea nitrogen [Mass/Vol] 10 mg/dL Normal 7-25 [facility] Comment on above: Performed By: #### C MP, CBC, LIPASE #### [facility] [address] [place] [address] Urine bacteria detection by automated methodOrdered By: Haanne Rondon on 10-23-2023 Bacteria Auto Ql (U) 1+ None Seen [facility] Urine clarity by refractomet ry automatedOrdered By: Hanane Rondon on 10-23-2023 Clarity Refractometry automated (U) Cloudy Clear [facility] Urine glucose measurement by automated test strip (mass/volume)Ordered By: Hanane Rondon on 10-23-2023 Glucose Auto test strip (U) [Mass/Vol] >=1000 mg/dL Normal [facility] Urine hemoglobin detection b y automated test stripOrdered By: Hanane Rondon on 10-23-2023 Hemoglobin Auto test strip Ql (U) Trace Negative [facility] Urine leukocyte esterase det ection by automated test stripOrdered By: Hanane Rondon on 10-23-2023 Leukocyte esterase Auto test strip Ql (U) Negative Negative [facility] Urine pH measurement by auto mated test stripOrdered By: Hanane Rondon on 10-23-2023 pH (U) 5.5 [pH] Normal 5.0-9.0 [facility] Comment on above: Order Comment: Name Collection Type:: Clean-Voided Midstream Performed By: #### A DDONUAPLUS, UHCG #### [facility] [address] [place] [address] [facility] Urobilinogen Auto test strip (U) [Mass/Vol]Ordered By: Hanane Rondon on 10-23-2023 Urobilinogen (U) [Mass/Vol] Normal mg/dL Normal [facility] XR femur BIon 05-24-2023 XR femur BI [facility] [place] [address] [place] [address] XRay Report Signed Patient: Gary Vigil MR#: [id number] : 1985 Acct:[id number] Age/Sex: 38 / F ADM Date: 05/23/23 Loc: ER Room: Type: [facility] ER Attending Dr: Copies to: Miquel Andrews PA-C Ordering Provider: iMquel Andrews PA-C Date of Service: 05/23/23 XR/XR femur BI: Extremity Injury, Lower Bilateral femur series, 2 views each Reason for exam: Ramp fell on to thighs. Bilateral pain right side is worse. COMPARISON: None. FINDINGS: Right femur demonstrates no focal soft tissue abnormality. No acute bony process is seen. Joint spaces appear maintained. Left femur demonstrate no focal soft tissue abnormality. No acute bony process is seen. Joint spaces appear maintained. XR/XR femur BI Impression: No acute bony process. Impression dictated by: Raymon Ruelas Jr., DJeyOJey05/24/2023 8:30 AM Dictation Location: [place] [address] Transcribed By: [facility] 05/24/23829 Dictated By: Raymon Ruelas Jr, DO 05/24/2328 Signed By: 05/24/23829 Normal [facility] CBC AUTO DIFFon 03-25-2023 BASO # 0.0 103/ul Normal 0.0-0.1 [facility] Comment on above: Performed By: #### P T, PTT #### [facility] [address] [place] [address] [address] Tati Reilly Basophils/100 WBC (Bld) 0.4 % Normal 0.2-2.0 [facility] Comment on above: Performed By: #### P T, PTT #### [facility] [address] [place] [address] Dr. Tati Reilly EO # 0.1 103/ul Normal 0.0-0.7 [facility] Comment on above: Performed By: #### P T, PTT #### [facility] [address] [place] [address] Dr. Tati Reilly Eosinophils/100 WBC (Bld) 1.5 % Normal 0.9-7.0 [facility] [facility] Comment on above: Performed By: #### P T, PTT #### [facility] [address] [place] [address] Dr. Tati Reilly Erythrocyte distribution width (RBC) [Ratio] 14.4 % Normal 11.0-15.0 [facility] Comment on above: Performed By: #### P T, PTT #### [facility] [address] [place] [address] Dr. Tati Reilly Hematocrit (Bld) [Volume fraction] 38.9 % Normal 36.0-48.0 [facility] Comment on above: Performed By: #### P T, PTT #### [facility] [address] [place] [address] Dr. Tati Reilly Hemoglobin (Bld) [Mass/Vol] 12.9 g/dL Normal 12.0-16.0 [facility] Comment on above: Performed By: #### P T, PTT #### [facility] [address] [place] [address] Dr. Tati Reilly IG # 0.03 10e3/ul Normal 0.00-0.03 [facility] Comment on above: Performed By: #### P T, PTT #### [facility] [address] [place] [address] Dr. Tati Reilly IG % 0.3 % Normal 0.0-0.5 [facility] Comment on above: Performed By: #### P T, PTT #### [facility] [address] [place] [address] Dr. Tati Reilly LYMPH # 4.3 103/ul Critically high 1.2-3.8 [facility] Comment on above: Performed By: #### P T, PTT #### [facility] [address] [place] [address] Dr. Tati Reilly Lymphocytes/100 WBC (Bld) 45.7 % Normal 20.5-60.0 [facility] Comment on above: Performed By: #### P T, PTT #### [facility] [address] [place] [address] Dr. Tati Reilly MANUAL DIFF REQ NO Normal [facility] Comment on above: Performed By: #### P T, PTT #### [facility] [address] [place] [address] Dr. Tati Reilly MCH (RBC) [Entitic mass] 28.9 pg Normal 26.7-34.0 [facility] Comment on above: Performed By: #### P T, PTT #### [facility] [address] [place] [address] Dr. Tati Reilly MCHC (RBC) [Mass/Vol] 33.2 g/dL Normal 29.9-35.2 [facility] Comment on above: Performed By: #### P T, PTT #### [facility] [address] [place] [address] Dr. Tati Reilly MCV (RBC) [Entitic vol] 87.0 fL Normal 81.0-99.0 [facility] Comment on above: Performed By: #### P T, PTT #### [facility] [address] [place] [address] Dr. Tati Reilly MONO # 0.4 103/ul Normal 0.3-0.8 [facility] Comment on above: Performed By: #### P T, PTT #### [facility] [address] [place] [address] Dr. Tati Reilly Monocytes/100 WBC (Bld) 4.6 % Normal 1.7-12.0 [facility] Comment on above: Performed By: #### P T, PTT #### [facility] [address] [place] [address] Dr. Tati Reilly NEUT # 4.5 103/ul Normal 1.4-6.5 [facility] Comment on above: Performed By: #### P T, PTT #### [facility] [address] [address] [address] Tati Reilly Neutrophils/100 WBC (Bld) 47.5 % Normal 43.0-75.0 [facility] Comment on above: Performed By: #### P T, PTT #### [facility] [address] [place] [address] Dr. Tati Reilly Platelet mean volume (Bld) [Entitic vol] 9.8 fL Normal 9.5-13.5 [facility] Comment on above: Performed By: #### P T, PTT #### [facility] [address] [place] [address] Dr. Tati Reilly PLT 405 103/ul Normal 150-450 [facility] Comment on above: Performed By: #### P T, PTT #### [facility] [address] [place] [address] Dr. Tati Reilly RBC 4.47 106/ul Normal 4.20-5.40 [facility] Comment on above: Performed By: #### P T, PTT #### [facility] [address] [place] [address] Dr. Tati Reilly WBC 9.4 103/ul Normal 4.0-11.0 [facility] Comment on above: Performed By: #### P T, PTT #### [facility] [address] [place] [address] Dr. Tati Reilly GLYCOHEMOGLOBIN A1Con 2022 ADA RECOMMENDATION SEE BELOW Normal [facility] Comment on above: Result Comment: ADA RECOMMENDED LIMIT 4.0 - 6.0 ADA THERAPEUTIC TARGET < 7.0 ACTION SUGGESTED > 7.0 Performed By: #### A 1C #### [facility] [address] [place] [address] Dr. Tati Reilly Glucose [Mass/Vol] 177 mg/dL Normal [facility] Comment on above: Performed By: #### A 1C #### [facility] [address] [place] [address] Dr. Tati Reilly HbA1c (Bld) [Mass fraction] 7.8 % Critically high 4.5-6.2 [facility] Comment on above: Performed By: #### A 1C #### [facility] [address] [address] [address] Tati Reilly LIPID PROFILEon 03-25-2023 CHOL-HDL RATIO NORM SEE BELOW Normal [facility] Comment on above: Result Comment: 3.3 - 4.4 LOW RISK 4.4 - 7.1 AVERAGE RISK 7.1 - 11.0 MODERATE RISK >11.0 HIGH RISK Performed By: #### L IPID, CMP #### [facility] [address] [address] [address] Tati Reilly Cholesterol [Mass/Vol] 188 mg/dL Normal <=200 [facility] Comment on above: Performed By: #### L IPID, CMP #### [facility] [address] [address] [address] Tati Reilly Cholesterol in HDL [Mass/Vol] 33 mg/dL Critically low 40-60 [facility] Comment on above: Performed By: #### L IPID, CMP #### [facility] [address] [address] [address] Tati Reilly Cholesterol in LDL [Mass/Vol] 140.4 mg/dL Normal [facility] Comment on above: Performed By: #### L IPID, CMP #### [facility] [address] [address] [address] Tati Reilly Cholesterol.total/Cho lesterol in HDL [Mass ratio] 5.7 {ratio} Normal [facility] Comment on above: Performed By: #### L IPID, CMP #### [facility] [address] [address] [address] Tati Reilly HDL NORMAL > or = 60 mg/dl - LO W CARDIOVASCULAR RISK <40 mg/dl - HIGH CARDIOVASCULAR RISK Normal [facility] Comment on above: Performed By: #### L IPID, CMP #### [facility] [address] [address] [address] Ttai Reilly LDL CALC NORMAL SEE BELOW Normal [facility] Comment on above: Result Comment: <100 mg/dl OPTIMAL 100 - 129 mg/dl NEAR OR ABOVE OPTIMAL 130 - 159 mg/dl BORDERLINE HIGH 160 - 189 mg/dl HIGH >190 mg/dl VERY HIGH Performed By: #### L IPID, CMP #### [facility] [address] [place] [address] Dr. Tati Reilly Triglyceride [Mass/Vol] 73 mg/dL Normal <=150 [facility] Comment on above: Performed By: #### L IPID, CMP #### [facility] [address] [address] [address] Tati Reilly VLDL CALC 14.6 mg/dL Normal [facility] Comment on above: Performed By: #### L IPID, CMP #### [facility] [address] [address] [address] Tati Reilly LIVER PROFILEon 03-25-2023 ALP [Catalytic activity/Vol] 79 U/L Normal 46-116 [facility] Comment on above: Performed By: #### L IVER #### [facility] [address] [place] [address] Dr. Tati Reilly ALT [Catalytic activity/Vol] 26 U/L Normal 14-59 [facility] Comment on above: Performed By: #### L IVER #### [facility] [address] [place] [address] Dr. Tati Reilly AST [Catalytic activity/Vol] 12 U/L Critically low 15-37 [facility] Comment on above: Performed By: #### L IVER #### [facility] [address] [place] [address] Dr. Tati Reilly BILI, CONJUGATED 0.1 mg/dL Normal 0.0-0.2 [facility] Comment on above: Performed By: #### L IVER #### [facility] [address] [place] [address] Dr. Tati Reilly Bilirubin [Mass/Vol] 0.2 mg/dL Normal 0.2-1.0 [facility] Comment on above: Performed By: #### L IVER #### [facility] [address] [place] [address] Dr. Tati Reilly PROF 14(COMP METB)on 05-01-2 023 Albumin [Mass/Vol] 3.5 g/dL Normal 3.4-5.0 [facility] Comment on above: Performed By: #### L IPID, CMP #### [facility] [address] [place] [address] Dr. Tati Reilly Performed By: #### L IVER #### [facility] [address] [place] [address] Dr. Tati Reilly Albumin/Globulin [Mass ratio] 0.7 {ratio} Normal [facility] Comment on above: Performed By: #### L IPID, CMP #### [facility] [address] [place] [address] Dr. Tati Reilly Performed By: #### L IVER #### [facility] [address] [place] [address] Dr. Tati Reilly ALP [Catalytic activity/Vol] 77 U/L Normal 46-116 [facility] Comment on above: Performed By: #### L IPID, CMP #### [facility] [address] [place] [address] Dr. Tati Reilly ALT [Catalytic activity/Vol] 27 U/L Normal 14-59 [facility] Comment on above: Performed By: #### L IPID, CMP #### [facility] [address] [place] [address] Dr. Tati Reilly Anion gap [Moles/Vol] 12.6 mmol/L Normal [facility] Comment on above: Performed By: #### L IPID, CMP #### [facility] [address] [place] [address] Dr. Tati Reilly AST [Catalytic activity/Vol] 11 U/L Critically low 15-37 [facility] Comment on above: Performed By: #### L IPID, CMP #### [facility] [address] [place] [address] Dr. Tati Reilly Bilirubin [Mass/Vol] 0.1 mg/dL Critically low 0.2-1.0 [facility] Comment on above: Performed By: #### L IPID, CMP #### [facility] [address] [place] [address] Dr. Tati Reilly Calcium [Mass/Vol] 9.3 mg/dL Normal 8.5-10.1 [facility] Comment on above: Performed By: #### L IPID, CMP #### [facility] [address] [place] [address] Dr. Tati Reilly Chloride [Moles/Vol] 105 mmol/L Normal 98-107 [facility] Comment on above: Performed By: #### L IPID, CMP #### [facility] [address] [place] [address] Dr. Tati Reilly CO2 [Moles/Vol] 22.3 mmol/L Normal 21.0-32.0 [facility] Comment on above: Performed By: #### L IPID, CMP #### [facility] [address] [place] [address] Dr. Tati Reilly Creatinine [Mass/Vol] 0.58 mg/dL Normal 0.55-1.02 [facility] Comment on above: Performed By: #### L IPID, CMP #### [facility] [address] [place] [address] Dr. Tati Reilly EGFR-AF BANGLADESHI >60 Normal >=60 [facility] Comment on above: Performed By: #### L IPID, CMP #### [facility] [address] [place] [address] Dr. Tati Reilly EGFR-NON AF BANGLADESHI >60 Normal >=60 [facility] Comment on above: Performed By: #### L IPID, CMP #### [facility] [address] [place] [address] Dr. Tati Reilly Globulin (S) [Mass/Vol] 4.8 g/dL Normal [facility] Comment on above: Performed By: #### L IPID, CMP #### [facility] [address] [place] [address] Dr. Tati Reilly Performed By: #### L IVER #### [facility] [address] [place] [address] Dr. Tati Reilly Glucose [Mass/Vol] 142 mg/dL Critically high 74-106 T [facility] Comment on above: Performed By: #### L IPID, CMP #### [facility] [address] [address] [address] Tati Reilly Potassium [Moles/Vol] 3.9 mmol/L Normal 3.5-5.1 [facility] Comment on above: Performed By: #### L IPID, CMP #### [facility] [address] [address] [address] Tati Reilly Protein [Mass/Vol] 8.3 g/dL Critically high 6.4-8.2 T [facility] Comment on above: Performed By: #### L IPID, CMP #### [facility] [address] [place] [address] Dr. Tati Reilly Performed By: #### L IVER #### [facility] [address] [place] [address] Dr. Tati Reilly Sodium [Moles/Vol] 136 mmol/L Normal 136-145 [facility] Comment on above: Performed By: #### L IPID, CMP #### [facility] [address] [address] [address] Tati Reilly Urea nitrogen [Mass/Vol] 10.0 mg/dL Normal 7.0-18.0 [facility] Comment on above: Performed By: #### L IPID, CMP #### [facility] [address] [place] [address] Dr. Tati Reilly Urea nitrogen/Creatinine [Mass ratio] 17.2 mg/mg Normal [facility] Comment on above: Performed By: #### L IPID, CMP #### [facility] [address] [place] [address] Dr. Tati Reilly PROTIMEon 03-25-2023 INR Coag (PPP) [Relative time] {INR} Normal [facility] Comment on above: Performed By: #### P T, PTT #### [facility] [address] [place] [address] Dr. Tati Reilly INR GUIDELINES SEE BELOW Normal [facility] Comment on above: Result Comment: KRISHNA RED INR: 2.0 - 3.0 CONDITIONS NOT LISTED BELOW 2.5 - 3.5 FOR PROSTHETIC HEART VALVE REPLACEMENT 2.5 - 3.5 RECURRENT THROMBOSIS Performed By: #### P T, PTT #### [facility] [address] [place] [address] Dr. Tati Reilly PT Coag (PPP) [Time] 9.8 s Normal 9.0-11.6 [facility] Comment on above: Performed By: #### P T, PTT #### [facility] [address] [place], [place] [id number] Dr. Tati Reilly PTTon 03-25-2023 aPTT Coag (Bld) [Time] 31.0 s Normal 22.3-36.2 [facility] Comment on above: Performed By: #### P T, PTT #### [facility] [address] [place] [address] Dr. Tati Reilly [facility] CARDIAC STRESS/REST INJE CTIONon 03-01-2023 [facility] CARDIAC STRESS/REST INJECTION Patient Name: GARY VIGIL STUDY: MYOCARDIAL PERFUSION STRESS TEST WITH EXERCISE Performing facility: [facility], [address] [place] [address], [address], [address] Provider: [facility] Koehler [facility], [facility] PCP: Dr. Alfonso MARQUES Supervising provider: Joe Meek MD INDICATION: R94.31: Abnormal EKG R07.89: Chest discomfort R06.02: Shortness of breath on exertion Pre-operative risk assessment for Hysterectomy scheduled at [place] on 04/12/23. HISTORY: Gender: F; Age: 37 y/o ; Height: 0 cm; Weight: 0 kg. High Cholesterol; Diabetes; Family HX CAD; Abnormal EKG; Chest Pain; SOB; Edema, Asthma Currently smoking. COMPARISON: No comparison. ACCESSION NUMBER(S): [id number]; [id number]; [id number] ORDERING CLINICIAN: KRYSTAL KOEHLER TECHNIQUE: TWO DAY protocol. Stress injection: Date:03/01/23, 33.5 mCi of Myoview IV at peak exercise. Rest injection: Date: 03/15/23, 33.4 mCi of Myoview IV at rest. Imaging was performed by gated tomographic technique. STRESS TEST DATA: Resting heart rate was 84 BPM. Resting blood pressure was 140/84 mmHg. The patient exercised using a Flash exercise protocol. 3:57 minutes exercised. 86 % of MPHR achieved for age. 5.8 METS achieved. Maximum heart rate was 157 BPM. Maximum blood pressure was 184/58 mmHg. DTS 3. TEST TERMINATED DUE TO: Dyspnea FINDINGS: STRESS TEST RESULTS: Resting electrocardiogram revealed normal sinus rhythm with nonspecific ST-T changes. The patient had no significant ECG changes with maximal stress. The patient did not have chest pains/symptoms during the procedure. There was a normal recovery phase. There were no significant dysrhythmias. IMAGING RESULTS: Image quality was fair. Rest and stress tomographic images were reviewed and revealed normal perfusion without evidence of ischemia, myocardial infarction, or left ventricular dilatation with stress. Overall left ventricular systolic function appeared to be normal without regional wall motion abnormalities. LV ejection fraction was 72 %. TID is 0.86 and is normal. There were no evidence of attenuation artifact. IMPRESSION: Normal exercise Myoview cardiac perfusion stress test. No evidence of ischemia or myocardial infarction by perfusion imaging. Normal left ventricular systolic function, ejection fraction 72%. No exercise provoked significant ischemic ECG changes or chest pain symptoms. Poor exercise tolerance. Patient was able to exercise for close to 4 minutes of the Flash protocol.. Electronically signed by: OJE MEEK MD Normal [facility] No Panel Informationon 03-01 Normal [place] [place] [address] DO Work Phone: Echocardiogramon 02-21-[address], [address] [place] [address] TRANSTHORACIC ECHOCARDIOGRAM REPORT Patient Name: GARY Nix [id number] Jonah Rodriguez MD Physician: Study Date: 02/21/2023 Referring KRYSTAL KOEHLER Physician: MRN/PID: [id number] PCP: Shay hadley Accession/Order#: [id number] [facility] Location: Date of : 1985 Fellow: Gender: F Nurse: Wendy Brown RN Admit Date: Newspaper Journalist: Smita Rincon RDCS, RVT Height: 167.64 cm CC Report to: Rigoberto Montano Weight: 104.33 kg Study Type: Echocardiogram BSA: 2.12 m2 Diagnosis/ICD: R07.89-Other chest pain; R94.31-Abnormal electrocardiogram [ECG] [EKG] Indication: Diabetes, Edema, HTN, POC-Hysterectomy with Dr. Erika Montano 04/03/2023, Tobacco Abuse, Bipolar Disorder, [place], Morbid Obesity, Hypokalemia, Anemia, Shortness of Breath Procedure/CPT: Echo Complete w Full [id number] Study Detail: The following Echo studies were performed: 2D, M-Mode, Doppler and color flow. Optison used as a contrast agent for endocardial border definition. Total contrast used for this procedure was 0.7 mL via IV push. PHYSICIAN INTERPRETATION: Left Ventricle: Left ventricular systolic function is normal, with an estimated ejection fraction of 60-65%. There are no regional wall motion abnormalities. The left ventricular cavity size is normal. Spectral Doppler shows a normal pattern of left ventricular diastolic filling. Left Atrium: The left atrium is normal in size. Right Ventricle: The right ventricle is normal in size. There is normal right ventricular global systolic function. Right Atrium: The right atrium is normal in size. Aortic Valve: The aortic valve is trileaflet. There is evidence of mildly elevated transaortic gradients consistent with sclerosis of the aortic valve. There is no evidence of aortic valve regurgitation. The peak instantaneous gradient of the aortic valve is 12.7 mmHg. The mean gradient of the aortic valve is 6.0 mmHg. Mitral Valve: The mitral valve is normal in structure. There is no evidence of mitral valve regurgitation. Tricuspid Valve: The tricuspid valve is structurally normal. No evidence of tricuspid regurgitation. Pulmonic Valve: The pulmonic valve is structurally normal. There is no indication of pulmonic valve regurgitation. Pericardium: There is no pericardial effusion noted. Aorta: The aortic root is normal. CONCLUSIONS: 1. Left ventricular systolic function is normal with a 60-65% estimated ejection fraction. 2. Aortic valve sclerosis. QUANTITATIVE DATA SUMMARY: 2D MEASUREMENTS: Normal Ranges: Ao Root d: 2.80 cm (2.0-3.7cm) LAs: 3.30 cm (2.7-4.0cm) RVIDd: 2.90 cm (0.9-3.6cm) IVSd: 1.10 cm (0.6-1.1cm) LVPWd: 0.90 cm (0.6-1.1cm) LVIDd: 4.60 cm (3.9-5.9cm) LVIDs: 2.40 cm LV Mass Index: 74.8 g/m2 LV % FS 47.8 % LV SYSTOLIC FUNCTION BY 2D PLANIMETRY (MOD): Normal Ranges: EF-A4C View: 62.9 % (>=55%) LV DIASTOLIC FUNCTION: Normal Ranges: MV Peak E: 1.13 m/s (0.7-1.2 m/s) MV Peak A: 0.78 m/s (0.42-0.7 m/s) E/A Ratio: 1.45 (1.0-2.2) MV lateral e' 0.11 m/s MV medial e' 0.09 m/s E/e' Ratio: 10.30 (<8.0) MITRAL VALVE: Normal Ranges: MV Vmax: 1.19 m/s (<=1.3m/s) MV peak P.7 mmHg (<5mmHg) MV mean P.0 mmHg (<48mmHg) AORTIC VALVE: Normal Ranges: AoV Vmax: 1.78 m/s (<=1.7m/s) AoV Peak P.7 mmHg (<20mmHg) AoV Mean P.0 mmHg (1.7-11.5mmHg) LVOT Max Jas: 1.02 m/s (<=1.1m/s) AoV VTI: 29.60 cm (18-25cm) LVOT VTI: 21.80 cm LVOT Diameter: 2.10 cm (1.8-2.4cm) AoV Area, VTI: 2.55 cm2 (2.5-5.5cm2) AoV Area,Vmax: 1.98 cm2 (2.5-4.5cm2) AoV Dimensionless Index: 0.74 PULMONIC VALVE: Normal Ranges: PV Max Jas: 0.8 m/s (0.6-0.9m/s) PV Max P.7 mmHg [id number] Jonah Rodriguez MD Electronically signed on 02/24/2023 at 2:03:49 PM Final Normal [facility] Calcium [Mass/volume] in Ser um or PlasmaOrdered By: Krystal Koehler on 02-18-2023 Calcium [Mass/Vol] 10.0 mg/dL 8.6-10.3 [facility] Carbon dioxide, total [Moles /volume] in Serum or PlasmaOrdered By: Krystal Koehler on 02-18-2023 CO2 [Moles/Vol] 23.9 mmol/L 21.0-31.0 [facility] Chloride [Moles/volume] in S dave or PlasmaOrdered By: Krystal Koehler on 02-18-2023 Chloride [Moles/Vol] 103 mmol/L 98-107 [facility] Creatinine [Mass/volume] in Serum or PlasmaOrdered By: Krystal Koehler on 02-18-2023 Creatinine [Mass/Vol] 0.63 mg/dL 0.60-1.20 [facility] Glucose [Mass/volume] in Ser um or PlasmaOrdered By: Krystal Koehler on 02-18-2023 Glucose [Mass/Vol] 155 mg/dL 70-100 [facility] Comment on above: ADA recommended refe rence rangeRandom Glucose Reference Range is dependent on time and content of last meal. Glucose of more than 200 mg/dL in a nonstressed, ambulatory subject supports the diagnosis of Diabetes Mellitus. Laboratory - Chemistry and C hemistry - challengeOrdered By: Krystal Koehler on 02-18-2023 GFR/1.73 sq M.predicted MDRD (S/P/Bld) [Vol rate/Area] mL/min/{1.73_m2} [facility] No Panel InformationOrdered By: Krystal Koehler on 02-18-2023 Pharmacy Creatinine Clearance (Chem N/A [facility] No Panel Informationon 02-18 > 60.0 Normal -[facility] [employer] 250 DO Work Phone: 14.2\S\14.2 Normal 6.0-15.0 [facility] [employer] 250 DO Work Phone: 10.0\S\10.0 Normal 8.6-10.3 [facility] [employer] 250 DO Work Phone: Comment on above: PERFORMED BY:[facility] [place] [id number] MEDICAL DIRECTORANGELA NORTON M.D. 23.9\S\23.9 Normal 21.0-31.0 [facility] 250 DO Work Phone: 103\S\103 Normal 98-107 [facility]-Mike [place] 250 DO Work Phone: 4.1\S\4.1 Normal 3.5-5.1 [facility]-Mike [place] 250 DO Work Phone: [phone] 137\S\137 Normal 136-145 [facility]-Mike [address] 250 DO Work Phone: [phone] 0.63\S\0.63 Normal 0.60-1.20 [facility] HeartSamra [address] 250 DO Work Phone: 13\S\13 Normal 7-25 [facility] HeartSamra garibay 250 DO Work Phone: [phone] 155\S\155 above high threshold 70-100 [facility] [address] 250 DO Work Phone: Comment on above: Random Glucose Refer ence Range is dependent on time and content of last meal. Glucose of more than 200 mg/dL in a nonstressed, ambulatory subject supports the diagnosis of Diabetes Mellitus. ADA recommended reference range Potassium [Moles/volume] in Serum or PlasmaOrdered By: Krystal Koehler on 02-18-2023 Potassium [Moles/Vol] 4.1 mmol/L 3.5-5.1 [facility] Serum or plasma anion gap de terminationOrdered By: Krystal Koehler on 02-18-2023 Anion gap [Moles/Vol] 14.2 mmol/L 6.0-15.0 [facility] Sodium [Moles/volume] in Ser um or PlasmaOrdered By: Krystal Koehler on 02-18-2023 Sodium [Moles/Vol] 137 mmol/L 136-145 [facility] Urea nitrogen [Mass/volume] in Serum or PlasmaOrdered By: Krystal Koehler on 02-18-2023 Urea nitrogen [Mass/Vol] 13 mg/dL 7- [facility] Office Visit (Cardiology)on 02-11-2023 Follow-up visit Diagnoses/Problems Assessed Abnormal EKG (794.31) (R94.31) Chest discomfort (786.59) (R07.89) Primary hypertension (401.9) (I10) Diabetes mellitus (250.00) (E11.9) Bipolar depression (296.50) (F31.9) Asthma (493.90) (J45.909) Migraine (346.90) (G43.909) Current smoker (305.1) (F17.200) 1-1 1/2 Hypokalemia (276.8) (E87.6) Class 2 obesity with body mass index (BMI) of 37.0 to 37.9 in adult (278.00,V85.37) (E66.9,Z68.37) Anemia (285.9) (D64.9) Lower extremity edema (782.3) (R60.0) Shortness of breath on exertion (786.05) (R06.02) Preoperative clearance (V72.84) (Z01.818) Orders Abnormal EKG, Chest discomfort Echocardiogram; Status:Hold For - Scheduling; Requested for:11Feb2023; Abnormal EKG, Chest discomfort, Shortness of breath on exertion NM Cardiac Stress/Rest Nuclear Med Order; Status:Hold For - Scheduling; Requested for:11Feb2023; Radiologist to Determine Optimal Study : Y What are the patient's signs and symptoms? : chest pain, abn ekg , ext sob Chest discomfort, Primary hypertension IO EKG Electrocardiogram- 12 Lead; Status:Complete; Done: 11Feb2023 Class 2 obesity with body mass index (BMI) of 37.0 to 37.9 in adult Healthy Weight Tips; Status:Complete; Done: 11Feb2023 Some eating tips that can help you lose weight.; Status:Complete; Done: 11Feb2023 Hypokalemia, Lower extremity edema, Primary hypertension Start: Furosemide 20 MG Oral Tablet; TAKE 1 TABLET DAILY DIRECTED Start: Spironolactone 50 MG Oral Tablet; TAKE 1 TABLET DAILY Lower extremity edema, Primary hypertension Basic Metabolic Panel; Status:Active; Requested for:18Feb2023; SocHx: Current smoker Stop: Furosemide 40 MG Oral Tablet You need to quit smoking.; Status:Complete; Done: [id number] Tobacco Use Screening; Status:Complete; Done: 11Feb2023 You need to stop smoking. Though it is not easy, more than half of all adult smokers have quit. We encourage you to write down all the reasons you should quit smoking and set a quit date for yourself. Ask us how we can help. You may also call 2-[employer] for free resources and assistance.; Status:Complete; Done: 11Feb2023 Patient Instructions Please bring all medicines, vitamins, and herbal supplements with you when you come to the office. Prescriptions will not be filled unless you are compliant with your follow up appointments or have a follow up appointment scheduled as per instruction of your physician. Refills should be requested at the time of your visit. Echo, cardiolyte stress Follow-up after testing completed Chief Complaint GARY VIGIL is being seen for a consultation for pre-operative clearance. History of Present Illness Patient is a 37-year-old female who is being seen in cardiology consultation regarding chest pain and shortness of breath. She has multiple cardiac risk factors. As the interview progressed, she tells us that she is here for preoperative cardiac risk assessment prior to hysterectomy for menorrhagia, she apparently had an ablation recently. Anesthesiologist saw abnormalities in her EKG and hence requested cardiology evaluation. She reports exertional shortness of breath functional class II. Activities such as going up a flight of stairs make her short of breath. She denies any orthopnea PND excessive snoring, she has lower extremity edema which is treated with diuretics, and has iatrogenic hypokalemia. I have reviewed details pertaining to her ER visit in December 2022 with chest pain. At that time her potassium was 3.0. She says that the chest discomfort is a pressure/tightness that comes and goes without provocation. It is not always related to activity, it is not related to meals, does not radiate to the neck arm or jaw, and does not wake her up from sleep at night. She denies palpitations lightheadedness presyncope syncope or falls. Her EKG is abnormal, unchanged compared to the previous EKG from December 2022. Laboratory data from the ER in December 2022 showed hemoglobin of 11.2 hematocrit 34.3 MCV 88.5 RDW 15.8 platelets 380 INR 1.0 sodium 134 potassium 3.0 GFR greater than 60 glucose 222 troponin less than 3 BNP 22 D-dimer less than 200 Assessment: 1. Hypertension 2. Hyperlipidemia 3. Diabetes mellitus 4. Nicotine dependence 5. Increased BMI 6. ER visit with chest discomfort December 2022 7. Abnormal EKG 8. Irregular menstrual period's, she denies being 9. Hypokalemia related to excessive potassium loss due to diuretics, she says that she needs the diuretics in order to prevent lower extremity edema 10. History of cholecystectomy 11. Hyperglycemia 12. Normocytic anemia 13. Migraine headaches It is recommended that she undergo further testing to evaluate her symptoms and also as preoperative cardiac risk assessment prior to hysterectomy. Recommendations: 1. Proceed with echocardiogram, treadmill perfusion imaging study, may switch to Lexiscan as needed. Due to baseline EKG abnormalities, perfusion (more content not included)... Normal [place] Tobacco Screening.on 023 Adult depression screening assessment No [facility] [employer] 250 DO Work Phone: Fall risk assessment c) Not medically indicated [facility] [employer] 250 DO Work Phone: Tobacco use status [facility] b) No [facility] [employer] 250 DO Work Phone: Activated partial thrombopla stin time (aPTT) in platelet poor plasma by coagulation aOrdered By: Aron Trevino on 01-13-2023 aPTT Coag (PPP) [Time] 34.2 s 25.1-36.5 [facility] Basophils Auto (Bld) [#/Vol] Ordered By: Aron Trevino on 01-13-2023 Basophils (Bld) [#/Vol] 0.1 10*3/uL 0.0-0.2 [facility] Basophils/100 WBC Auto (Bld) Ordered By: Aron Trevino on 01-13-2023 Basophils/100 WBC (Bld) 0.8 % . [facility] Creatine kinase.MB [Mass/vol ume] in Serum or PlasmaOrdered By: Aron Trevino on 01-13-2023 CK.MB [Mass/Vol] 1.3 ng/mL 0.6-6.3 [facility] Creatinine and Glomerular fi ltration rate.predicted panel (S/P/Bld)Ordered By: Aron Trevino on 01-13-2023 Creatinine [Mass/Vol] 0.66 mg/dL 0.44-1.03 [facility] Eosinophils Auto (Bld) [#/Vo l]Ordered By: Aron Trevino on 01-13-2023 Eosinophils (Bld) [#/Vol] 0.2 10*3/uL 0.0-0.45 [facility] Eosinophils/100 WBC Auto (Bl d)Ordered By: Aron Trevino on 01-13-2023 Eosinophils/100 WBC (Bld) 1.6 % . [facility] Erythrocyte distribution wid th Auto (RBC) [Ratio]Ordered By: Aron Trevino on 01-13-2023 Erythrocyte distribution width (RBC) [Ratio] 15.8 % 11.9-15.3 [facility] Estimated glomerular filtrat ion rate (GFR) non- AmericanOrdered By: Aron Trevino on 01-13-2023 GFR/1.73 sq M.predicted among non-blacks MDRD (S/P/Bld) [Vol rate/Area] > 60 mL/Min [facility] Hematocrit Auto (Bld) [Volum e fraction]Ordered By: Aron Trevino on 01-13-2023 Hematocrit (Bld) [Volume fraction] 34.3 % 34.0-46.4 [facility] Hemoglobin [Mass/volume] in BloodOrdered By: Aron Trevino on 01-13-2023 Hemoglobin (Bld) [Mass/Vol] 11.2 g/dL 11.8-15.4 [facility] - Chemistry and C hemistry - challengeOrdered By: Aron Trevino on 01-13-2023 Natriuretic peptide B (Bld) [Mass/Vol] 22.0 pg/mL 5-100 [facility] - CoagulationOrde red By: Aron Trevino on 01-13-2023 PT Coag (PPP) [Time] 11.4 s 9.0-12.9 [facility] Leukocytes [#/volume] correc diego for nucleated erythrocytes in Blood by Automated counOrdered By: Aron Trevino on 01-13-2023 WBC corrected for nucl RBC Auto (Bld) [#/Vol] 12.4 10*3/uL 3.8-11.6 [facility] Lymphocytes Auto (Bld) [#/Vo l]Ordered By: Aron Trevino on 01-13-2023 Lymphocytes (Bld) [#/Vol] 5.1 10*3/uL 1.00-4.8 [facility] Lymphocytes/100 WBC Auto (Bl d)Ordered By: Aron Trevino on 01-13-2023 Lymphocytes/100 WBC (Bld) 41.4 % . [facility] MCH Auto (RBC) [Entitic mass ]Ordered By: Aron Trevino on 01-13-2023 MCH (RBC) [Entitic mass] 29.0 pg 24.7-34.3 [facility] MCHC Auto (RBC) [Mass/Vol]Or dered By: Aron Trevino on 01-13-2023 MCHC (RBC) [Mass/Vol] 32.7 g/dL 32.0-35.0 [facility] MCV Auto (RBC) [Entitic vol] Ordered By: Aron Trevino on 01-13-2023 MCV (RBC) [Entitic vol] 88.5 fL 80-100 [facility] Monocyte distribution width [Entitic volume] in Blood by AutomatedOrdered By: Aron Trevino on 01-13-2023 Monocyte distribution width Auto (Bld) [Entitic vol] 18.05 % 0.00-20.00 [facility] Monocytes Auto (Bld) [#/Vol] Ordered By: Aron Trevino on 01-13-2023 Monocytes (Bld) [#/Vol] 0.6 10*3/uL 0.0-0.8 [facility] Monocytes/100 WBC Auto (Bld) Ordered By: Aron Trevino on 01-13-2023 Monocytes/100 WBC (Bld) 5.2 % . [facility] Neutrophils Auto (Bld) [#/Vo l]Ordered By: Aron Trevino on 01-13-2023 Neutrophils (Bld) [#/Vol] 6.3 10*3/uL 1.8-7.7 [facility] Neutrophils/100 WBC Auto (Bl d)Ordered By: Aron Trevino on 01-13-2023 Neutrophils/100 WBC (Bld) 51.0 % . [facility] No Panel InformationOrdered By: Aron Trevino on 01-13-2023 D-Dimer Quantitative (PE/DVT) < 200 ng/mL 0-243 [facility] Comment on above: The reference range for D-dimer is <243 ng/mL D-dimer units.D-dimer results must be used in conjunction with a clinicalpretest probability (PTP) assessment model for deep veinthrombosis (DVT) and pulmonary embolism (PE). Results <230ng/mL d-dimer units can be used as a negative predictor inpatients with low or moderate probability for DVT/PE.Results above the exclusion threshold of 230 ng/ml D-dimerunits for DVT/PE may indicate the need for furtherdiagnostic testing.D-Dimer can be increased in hospitalized patients due toco-morbid conditions. Estimated GFR () > 60 mL/Min [facility] Comment on above: GFR estimated refere nce range: According to KDOQI guidelines, <60 ml/min/1.73m2 is sufficient to diagnose a patient with chronic kidney disease. Pharmacy Creatinine Clearance (Chem 137.66 [facility] Nucleated erythrocytes [Pres ence] in Blood by Automated countOrdered By: Aron Trevino on 01-13-2023 Nucleated RBC Auto Ql (Bld) 0.1 /100{WBC} 0-0.5 [facility] Platelet mean volume Auto (B ld) [Entitic vol]Ordered By: Aron Trevino on 01-13-2023 Platelet mean volume (Bld) [Entitic vol] 7.4 fL 6.3-10.7 [facility] Platelet poor plasma interna tional normalized ratio (INR) by coagulation assay (relatOrdered By: Aron Trevino on 01-13-2023 INR Coag (PPP) [Relative time] 1.0 {INR} [facility] Comment on above: INR Therapeutic Rang e A) Pre- and Peroperative OAT started two weeks before surgery. NOT HIP SURGERY: 1.5 - 2.5 HIP SURGERY: 2 - 3B) Primary and secondary prevention of venous THROMBOSIS: 2 - 3C) Active venous thrombosis, pulmonary embolismand prevention of recurrent venous thrombosis: 2 - 3D) Prevention of arterial thromboembolismincluding patients with mechanical heart valves: 3 - 4.5 Platelets Auto (Bld) [#/Vol] Ordered By: Aron Trevino on 01-13-2023 Platelets (Bld) [#/Vol] 380 10*3/uL 150-450 [facility] RBC Auto (Bld) [#/Vol]Ordere d By: Aron Trevino on 01-13-2023 RBC (Bld) [#/Vol] 3.88 10*6/uL 3.60-5.00 [facility] Serum or plasma anion gap de terminationOrdered By: Aron Trevino on 01-13-2023 Anion gap [Moles/Vol] 11.4 mmol/L 6.0-15.0 [facility] Serum or plasma calcium buzz urement (mass/volume)Ordered By: Aron Trevino on 01-13-2023 Calcium [Mass/Vol] 8.7 mg/dL 8.2-10.2 [facility] Serum or plasma chloride celestino surement (moles/volume)Ordered By: Aron Trevino on 01-13-2023 Chloride [Moles/Vol] 104 mmol/L 95-114 [facility] Serum or plasma creatine kin ase MB (CKMB)/total creatine kinase (CK) ratio by calculaOrdered By: Aron Trevino on 01-13-2023 CK.MB Calc [Catalytic fraction] TNP [facility] Comment on above: Test not performed Serum or plasma glucose buzz urement (mass/volume)Ordered By: Aron Trevino on 01-13-2023 Glucose [Mass/Vol] 222 mg/dL 70-100 [facility] Comment on above: ADA recommended refe rence rangeRandom Glucose Reference Range is dependent on time and content of last meal. Glucose of more than 200 mg/dL in a nonstressed, ambulatory subject supports the diagnosis of Diabetes Mellitus. Serum or plasma potassium me asurement (moles/volume)Ordered By: Aron Trevino on 01-13-2023 Potassium [Moles/Vol] 3.0 mmol/L 3.5-5.1 [facility] Serum or plasma sodium measu rement (moles/volume)Ordered By: Aron Trevino on 01-13-2023 Sodium [Moles/Vol] 134 mmol/L 136-146 [facility] Serum or plasma total carbon dioxide measurement (moles/volume)Ordered By: Aron Trevino on 01-13-2023 CO2 [Moles/Vol] 21.6 mmol/L 22.0-30.0 [facility] Serum or plasma urea nitroge n measurement (mass/volume)Ordered By: Aron Trevino on 01-13-2023 Urea nitrogen [Mass/Vol] 5 mg/dL 9-23 [facility] Troponin I.cardiac [Mass/vol ume] in Serum or Plasma by High sensitivity methodOrdered By: Aron Trevino on 01-13-2023 Troponin I.cardiac High sensitivity method [Mass/Vol] < 3 pg/mL 0-15 [facility] WBC Auto (Bld) [#/Vol]Ordere d By: Aron Trevino on 01-13-2023 WBC (Bld) [#/Vol] 12.4 10*3/uL 3.8-11.6 [facility] CBC AUTO DIFFon 12-28-2022 BASO # 0.0 103/ul Normal 0.0-0.1 [facility] Comment on above: Performed By: #### P T, PTT #### [facility] [address] [address] [address] Tati Reilly Basophils/100 WBC (Bld) 0.3 % Normal 0.2-2.0 [facility] Comment on above: Performed By: #### P T, PTT #### [facility] [address] [address] [address] Tati Reilly EO # 0.1 103/ul Normal 0.0-0.7 [facility] Comment on above: Performed By: #### P T, PTT #### [facility] [address] [place] [address] Dr. Tati Reilly Eosinophils/100 WBC (Bld) 1.9 % Normal 0.9-7.0 [facility] Comment on above: Performed By: #### P T, PTT #### [facility] [address] [place] [address] Dr. Tati Reilly Erythrocyte distribution width (RBC) [Ratio] 14.3 % Normal 11.0-15.0 [facility] Comment on above: Performed By: #### P T, PTT #### [facility] [address] [place] [address] Dr. Tati Reilly Hematocrit (Bld) [Volume fraction] 32.8 % Critically low 36.0-48.0 [facility] Comment on above: Performed By: #### P T, PTT #### [facility] [address] [place] [address] Dr. Tati Reilly Hemoglobin (Bld) [Mass/Vol] 12.1 g/dL Normal 12.0-16.0 [facility] Comment on above: Performed By: #### P T, PTT #### [facility] [address] [place] [address] Dr. Tati Reilly IG # 0.01 10e3/ul Normal 0.00-0.03 [facility] Comment on above: Performed By: #### P T, PTT #### [facility] [address] [place] [address] Dr. Tati Reilly IG % 0.1 % Normal 0.0-0.5 [facility] Comment on above: Performed By: #### P T, PTT #### [facility] [address] [place] [address] Dr. Tati Reilly LYMPH # 2.7 103/ul Normal 1.2-3.8 [facility] Comment on above: Performed By: #### P T, PTT #### [facility] [address] [place] [address] Dr. Tati Reilly Lymphocytes/100 WBC (Bld) 39.6 % Normal 20.5-60.0 [facility] Comment on above: Performed By: #### P T, PTT #### [facility] [address] [place] [address] Dr. Tati Reilly MANUAL DIFF REQ NO Normal [facility] Comment on above: Performed By: #### P T, PTT #### [facility] [address] [place] [address] Dr. Tati Reilly MCH (RBC) [Entitic mass] 29.4 pg Normal 26.7-34.0 [facility] Comment on above: Performed By: #### P T, PTT #### [facility] [address] [place] [address] Dr. Tati Reilly MCHC (RBC) [Mass/Vol] 36.9 g/dL Critically high 29.9-35.2 [facility] Comment on above: Performed By: #### P T, PTT #### [facility] [address] [place] [address] Dr. Tati Reilly MCV (RBC) [Entitic vol] 79.6 fL Critically low 81.0-99.0 [facility] Comment on above: Performed By: #### P T, PTT #### [facility] [address] [place] [address] Dr. Tati Reilly MONO # 0.3 103/ul Normal 0.3-0.8 [facility] Comment on above: Performed By: #### P T, PTT #### [facility] [address] [place] [address] Dr. Tati Reilly Monocytes/100 WBC (Bld) 4.6 % Normal 1.7-12.0 [facility] Comment on above: Performed By: #### P T, PTT #### [facility] [address] [place] [address] Dr. Tati Reilly NEUT # 3.6 103/ul Normal 1.4-6.5 [facility] Comment on above: Performed By: #### P T, PTT #### [facility] [address] [place] [address] Dr. Tati Reilly Neutrophils/100 WBC (Bld) 53.5 % Normal 43.0-75.0 [facility] Comment on above: Performed By: #### P T, PTT #### [facility] [address] [place] [address] Dr. Tati Reilly Platelet mean volume (Bld) [Entitic vol] 8.8 fL Critically low 9.5-13.5 [facility] Comment on above: Performed By: #### P T, PTT #### [facility] [address] [place] [address] Dr. aTti Reilly PLT 357 103/ul Normal 150-450 [facility] Comment on above: Performed By: #### P T, PTT #### [facility] [address] [place] [address] Dr. Tati Reilly RBC 4.12 106/ul Critically low 4.20-5.40 [facility] Comment on above: Performed By: #### P T, PTT #### [facility] [address] [place] [address] Dr. Tati Reilly WBC 6.7 103/ul Normal 4.0-11.0 [facility] Comment on above: Performed By: #### P T, PTT #### [facility] [address] [place] [address] Dr. Tati Reilly LIVER PROFILEon 12-28-2022 Albumin [Mass/Vol] 3.5 g/dL Normal 3.4-5.0 [facility] Comment on above: Performed By: #### L IVER, BMP #### [facility] [address] [place] [address] Dr. Tati Reilly Albumin/Globulin [Mass ratio] 0.9 {ratio} Normal [facility] Comment on above: Performed By: #### L IVER, BMP #### [facility] [address] [place] [address] Dr. Tati Reilly ALP [Catalytic activity/Vol] 77 U/L Normal 46-116 [facility] Comment on above: Performed By: #### L IVER, BMP #### [facility] [address] [place] [address] Dr. Tati Reilly ALT [Catalytic activity/Vol] 22 U/L Normal 14-59 [facility] Comment on above: Performed By: #### L IVER, BMP #### [facility] [address] [place] [address] Dr. Tati Reilly AST [Catalytic activity/Vol] 18 U/L Normal 15-37 [facility] Comment on above: Performed By: #### L IVER, BMP #### [facility] [address] [place] [address] Dr. Tati Reilly BILI, CONJUGATED 0.1 mg/dL Normal 0.0-0.2 [facility] Comment on above: Performed By: #### L IVER, BMP #### [facility] [address] [place] [address] Dr. Tati Reilly Bilirubin [Mass/Vol] 0.2 mg/dL Normal 0.2-1.0 [facility] Comment on above: Performed By: #### L IVER, BMP #### [facility] [address] [place] [address] Dr. Tati Reilly Globulin (S) [Mass/Vol] 3.9 g/dL Normal [facility] Comment on above: Performed By: #### L IVER, BMP #### [facility] [address] [place] [address] Dr. Tati Reilly Protein [Mass/Vol] 7.4 g/dL Normal 6.4-8.2 [facility] Comment on above: Performed By: #### L IVER, BMP #### [facility] [address] [place] [address] Dr. Tati Reilly PROF CHEM 8 (BAS METB)on Anion gap [Moles/Vol] 14.4 mmol/L Normal [facility] Comment on above: Performed By: #### L IVER, BMP #### [facility] [address] [place] [address] Dr. Tati Reilly Calcium [Mass/Vol] 8.8 mg/dL Normal 8.5-10.1 [facility] Comment on above: Performed By: #### L IVER, BMP #### [facility] [address] [address] [address] Tati Reilly Chloride [Moles/Vol] 103 mmol/L Normal 98-107 [facility] Comment on above: Performed By: #### Bri GAITAN, BMP #### [facility] [address] [place] [address] Dr. Tati Reilly CO2 [Moles/Vol] 24.6 mmol/L Normal 21.0-32.0 [facility] Comment on above: Performed By: #### L KANDY, BMP #### [facility] [address] [place] [address] Dr. Tati Reilly Creatinine [Mass/Vol] 0.61 mg/dL Normal 0.55-1.02 [facility] Comment on above: Performed By: #### Bri GAITAN, BMP #### [facility] [address] [place] [address] Dr. Tati Reilly EGFR-AF BANGLADESHI >60 Normal >=60 [facility] Comment on above: Performed By: #### Bri GAITAN, BMP #### [facility] [address] [place] [address] Dr. Tati Reilly EGFR-NON AF BANGLADESHI >60 Normal >=60 [facility] Comment on above: Performed By: #### Bri GAITAN, BMP #### [facility] [address] [place] [address] Dr. Tati Reilly Glucose [Mass/Vol] 173 mg/dL Critically high 74-106 T [facility] Comment on above: Performed By: #### Bri GAITAN, BMP #### [facility] [address] [place] [address] Dr. Tati Reilly Potassium [Moles/Vol] 3.0 mmol/L Critically low 3.5-5.1 [facility] Comment on above: Performed By: #### L KANDY, BMP #### [facility] [address] [place] [address] Dr. Tati Reilly Sodium [Moles/Vol] 139 mmol/L Normal 136-145 [facility] Comment on above: Performed By: #### L KANDY, BMP #### [facility] [address] [place] [address] Dr. Tati Reilly Urea nitrogen [Mass/Vol] 7.0 mg/dL Normal 7.0-18.0 [facility] Comment on above: Performed By: #### L KANDY, BMP #### [facility] [address] [place] [address] Dr. Tati Reilly Urea nitrogen/Creatinine [Mass ratio] 11.5 mg/mg Normal [facility] Comment on above: Performed By: #### L KANDY, BMP #### [facility] [address] [place] [address] Dr. Tati Reilly PROTIMEon 12-28-2022 INR Coag (PPP) [Relative time] 0.97 {INR} Normal [facility] Comment on above: Performed By: #### P TT, PT #### [facility] [address] [place] [address] Dr. Tati Reilly INR GUIDELINES SEE BELOW Normal [facility] Comment on above: Result Comment: KRISHNA RED INR: 2.0 - 3.0 CONDITIONS NOT LISTED BELOW 2.5 - 3.5 FOR PROSTHETIC HEART VALVE REPLACEMENT 2.5 - 3.5 RECURRENT THROMBOSIS Performed By: #### P TT, PT #### [facility] [address] [place] [address] Dr. Tati Reilly PT Coag (PPP) [Time] 10.3 s Normal 9.0-11.6 [facility] Comment on above: Performed By: #### P TT, PT #### [facility] [address] [place] [address] Dr. Tati Reilly PTTon 12-28-2022 aPTT Coag (Bld) [Time] 29.1 s Normal 22.3-36.2 [facility] Comment on above: Performed By: #### P TT, PT #### [facility] [address] [place] [address] Dr. Tati Reilly Activated partial thrombopla stin time (aPTT) in platelet poor plasma by coagulation aOrdered By: Rigoberto Montano on 12-08-2022 aPTT Coag (PPP) [Time] 33.3 s 25.1-36.5 [facility] Basophils Auto (Bld) [#/Vol] Ordered By: Rigoberto Montano on 12-08-2022 Basophils (Bld) [#/Vol] 0.1 10*3/uL 0.0-0.2 [facility] Basophils/100 WBC Auto (Bld) Ordered By: Rigoberto Montano on 12-08-2022 Basophils/100 WBC (Bld) 0.8 % . [facility] Eosinophils Auto (Bld) [#/Vo l]Ordered By: Rigoberto Montano on 12-08-2022 Eosinophils (Bld) [#/Vol] 0.2 10*3/uL 0.0-0.45 [facility] Eosinophils/100 WBC Auto (Bl d)Ordered By: Rigoberto Montano on 12-08-2022 Eosinophils/100 WBC (Bld) 2.4 % . [facility] Erythrocyte distribution wid th Auto (RBC) [Ratio]Ordered By: Rigoberto Montano on 12-08-2022 Erythrocyte distribution width (RBC) [Ratio] 16.1 % 11.9-15.3 [facility] Hematocrit Auto (Bld) [Volum e fraction]Ordered By: Rigoberto Montano on 12-08-2022 Hematocrit (Bld) [Volume fraction] 34.8 % 34.0-46.4 [facility] Hemoglobin [Mass/volume] in BloodOrdered By: Rigoberto Montano on 12-08-2022 Hemoglobin (Bld) [Mass/Vol] 11.5 g/dL 11.8-15.4 [facility] - CoagulationOrde red By: Rigoberto Montano on 12-08-2022 PT Coag (PPP) [Time] 11.4 s 9.0-12.9 [facility] Leukocytes [#/volume] correc diego for nucleated erythrocytes in Blood by Automated counOrdered By: Rigoberto Montano on 12-08-2022 WBC corrected for nucl RBC Auto (Bld) [#/Vol] 9.8 10*3/uL 3.8-11.6 [facility] Lymphocytes Auto (Bld) [#/Vo l]Ordered By: Rigoberto Montano on 01-14-2023 Lymphocytes (Bld) [#/Vol] 3.7 10*3/uL 1.00-4.8 [facility] Lymphocytes/100 WBC Auto (Bl d)Ordered By: Rigoberto Montano on 12-08-2022 Lymphocytes/100 WBC (Bld) 38.1 % . [facility] MCH Auto (RBC) [Entitic mass ]Ordered By: Rigoberto Montano on 12-08-2022 MCH (RBC) [Entitic mass] 29.2 pg 24.7-34.3 [facility] MCHC Auto (RBC) [Mass/Vol]Or dered By: Rigoberto Montano on 12-08-2022 MCHC (RBC) [Mass/Vol] 33.0 g/dL 32.0-35.0 [facility] MCV Auto (RBC) [Entitic vol] Ordered By: Rigoberto Montano on 12-08-2022 MCV (RBC) [Entitic vol] 88.4 fL 80-100 [facility] Monocytes Auto (Bld) [#/Vol] Ordered By: Rigoberto Montano on 12-08-2022 Monocytes (Bld) [#/Vol] 0.5 10*3/uL 0.0-0.8 [facility] Monocytes/100 WBC Auto (Bld) Ordered By: Rigoberto Montano on 12-08-2022 Monocytes/100 WBC (Bld) 5.3 % . [facility] Neutrophils Auto (Bld) [#/Vo l]Ordered By: Rigoberto Montano on 12-08-2022 Neutrophils (Bld) [#/Vol] 5.2 10*3/uL 1.8-7.7 [facility] Neutrophils/100 WBC Auto (Bl d)Ordered By: Rigoberto Montano on 12-08-2022 Neutrophils/100 WBC (Bld) 53.4 % . [facility] Nucleated erythrocytes [Pres ence] in Blood by Automated countOrdered By: Rigoberto Montano on 12-08-2022 Nucleated RBC Auto Ql (Bld) 0.1 /100{WBC} 0-0.5 [facility] Platelet mean volume Auto (B ld) [Entitic vol]Ordered By: Rigoberto Montano on 12-08-2022 Platelet mean volume (Bld) [Entitic vol] 8.0 fL 6.3-10.7 [facility] Platelet poor plasma interna tional normalized ratio (INR) by coagulation assay (relatOrdered By: Rigoberto Montano on 12-08-2022 INR Coag (PPP) [Relative time] 1.0 {INR} [facility] Comment on above: INR Therapeutic Rang e A) Pre- and Peroperative OAT started two weeks before surgery. NOT HIP SURGERY: 1.5 - 2.5 HIP SURGERY: 2 - 3B) Primary and secondary prevention of venous THROMBOSIS: 2 - 3C) Active venous thrombosis, pulmonary embolismand prevention of recurrent venous thrombosis: 2 - 3D) Prevention of arterial thromboembolismincluding patients with mechanical heart valves: 3 - 4.5 Platelets Auto (Bld) [#/Vol] Ordered By: Rigoberto Montano on 12-08-2022 Platelets (Bld) [#/Vol] 362 10*3/uL 150-450 [facility] RBC Auto (Bld) [#/Vol]Ordere d By: Rigoberto Montano on 12-08-2022 RBC (Bld) [#/Vol] 3.94 10*6/uL 3.60-5.00 [facility] TSH DL <= 0.005 mIU/L QnOrde red By: Rigoberto Montano on 12-08-2022 TSH Qn 1.43 m[IU]/L 0.45-5.33 [facility] Thyroxine (T4) free [Mass/vo lume] in Serum or PlasmaOrdered By: Rigoberto Montano on 12-08-2022 Free T4 [Mass/Vol] 0.75 ng/dL 0.61-1.12 [facility] WBC Auto (Bld) [#/Vol]Ordere d By: Rigoberto Montano on 12-08-2022 WBC (Bld) [#/Vol] 9.8 10*3/uL 3.8-11.6 [facility] Pap IG,rfx Aptima HPV all pt hon 12-07-2022 . . Normal [facility] Comment on above: Performed By: #### P T, PTT #### [facility] [address] [address] [address] Tati Reilly DIAGNOSIS: Comment Normal [facility] Comment on above: Result Comment: NEGA TIVE FOR INTRAEPITHELIAL LESION OR MALIGNANCY. PREDOMINANCE OF COCCOBACILLI CONSISTENT WITH SHIFT IN VAGINAL PATRIC IS PRESENT. Performed By: #### P T, PTT #### [facility] [address] [place] [address] Dr. Tati Reilly Methodology: Comment Normal [facility] Comment on above: Result Comment: This liquid based ThinPrep(R) pap test was screened with the use of an image guided system. Performed By: #### P T, PTT #### [facility] [address] [place] [address] Dr. Tati Reilly Note: Comment Normal [facility] Comment on above: Result Comment: The Pap smear is a screening test designed to aid in the detection of premalignant and malignant conditions of the uterine cervix. It is not a diagnostic procedure and should not be used as the sole means of detecting cervical cancer. Both false-positive and false-negative reports do occur. . Performed By: #### P T, PTT #### [facility] [address] [place] [address] Dr. Tati Reilly Performed by: Comment Normal [facility] Comment on above: Result Comment: Mary Ellen Valerio, Carton Filler (ASCP) Performed By: #### P T, PTT #### [facility] [address] [place] [address] Dr. Tati Reilly Reflex Criteria: Comment Normal [facility] Comment on above: Result Comment: The HPV DNA reflex criteria were not met with this specimen result therefore, no HPV testing was performed. . Performed By: #### P T, PTT #### [facility] [address] [address] [address] Tati Reilly Specimen adequacy: Comment Normal [facility] Comment on above: Result Comment: Sati sfactory for evaluation. Endocervical and/or squamous metaplastic cells (endocervical component) are present. Performed By: #### P T, PTT #### [facility] [address] [place] [address] Dr. Tati Reilly Glucose mean value [Mass/vol ume] in Blood Estimated from glycated hemoglobinOrdered By: Rigoberto Montano on 12-01-2022 Average glucose Estimated from glycated hemoglobin (Bld) [Mass/Vol] 140 mg/dL [facility] Hemoglobin A1c percentageOrd ered By: Rigoberto Montano on 12-01-2022 HbA1c (Bld) [Mass fraction] 6.5 % 4.3-5.6 [facility] Comment on above: Increased risk for d iabetes: 5.7 - 6.4diabetes: >6.4glycemic control for adults with diabetes: <7.0 Activated partial thrombopla stin time (aPTT) in platelet poor plasma by coagulation aOrdered By: Hanane Rondon on 09-21-2022 aPTT Coag (PPP) [Time] 34.9 s 25.1-36.5 [facility] Anisocytosis LM Ql (Bld)Orde red By: Hanane Rondon on 09-21-2022 Anisocytosis Ql (Bld) Slight [facility] Basophils Auto (Bld) [#/Vol] Ordered By: Hanane Rondon on 09-21-2022 Basophils (Bld) [#/Vol] 0.1 10*3/uL 0.0-0.2 [facility] Basophils/100 WBC Auto (Bld) Ordered By: Hnaane Rondon on 09-21-2022 Basophils/100 WBC (Bld) 1.1 % . [facility] Creatine kinase [Enzymatic a ctivity/volume] in Serum or PlasmaOrdered By: Hanane Rondon on 09-21-2022 CK [Catalytic activity/Vol] 82 U/L 22-269 [facility] Creatinine and Glomerular fi ltration rate.predicted panel (S/P/Bld)Ordered By: Hanane Rondon on 09-21-2022 Creatinine [Mass/Vol] 0.63 mg/dL 0.44-1.03 [facility] Eosinophils Auto (Bld) [#/Vo l]Ordered By: Hanane Rondon on 09-21-2022 Eosinophils (Bld) [#/Vol] 0.2 10*3/uL 0.0-0.45 [facility] Eosinophils/100 WBC Auto (Bl d)Ordered By: Hanane Rondon on 09-21-2022 Eosinophils/100 WBC (Bld) 2.3 % . [facility] Erythrocyte distribution wid th Auto (RBC) [Ratio]Ordered By: Hanane Rondon on 09-21-2022 Erythrocyte distribution width (RBC) [Ratio] 15.4 % 11.9-15.3 [facility] Estimated glomerular filtrat ion rate (GFR) non- AmericanOrdered By: Hanane Rondon on 09-21-2022 GFR/1.73 sq M.predicted among non-blacks MDRD (S/P/Bld) [Vol rate/Area] > 60 mL/Min [facility] Hematocrit Auto (Bld) [Volum e fraction]Ordered By: Hanane Rondon on 09-21-2022 Hematocrit (Bld) [Volume fraction] 34.8 % 34.0-46.4 [facility] Hemoglobin [Mass/volume] in BloodOrdered By: Hanane Rondon on 09-21-2022 Hemoglobin (Bld) [Mass/Vol] 11.4 g/dL 11.8-15.4 [facility] - Chemistry and C hemistry - challengeOrdered By: Hanane Rondon on 09-21-2022 Natriuretic peptide B (Bld) [Mass/Vol] 5.0 pg/mL 5-100 [facility] - CoagulationOrde red By: Hanane Rondon on 09-21-2022 PT Coag (PPP) [Time] 11.6 s 9.0-12.9 [facility] - Hematology and Cell countsOrdered By: Hanane Rondon on 09-21-2022 Nucleated RBC/100 WBC (Bld) [Ratio] 0.1 % 0-0.5 [facility] Leukocytes [#/volume] in Blo od by Automated countOrdered By: Hanane Rondon on 09-21-2022 WBC (Bld) [#/Vol] 9.5 10*3/uL 4.5-11.0 [facility] Lymphocytes Auto (Bld) [#/Vo l]Ordered By: Hanane Rondon on 09-21-2022 Lymphocytes (Bld) [#/Vol] 4.1 10*3/uL 1.00-4.8 [facility] Lymphocytes/100 WBC Auto (Bl d)Ordered By: Hanane Rondon on 09-21-2022 Lymphocytes/100 WBC (Bld) 43.0 % . [facility] MCH Auto (RBC) [Entitic mass ]Ordered By: Hanane Rondon on 09-21-2022 MCH (RBC) [Entitic mass] 28.8 pg 24.7-34.3 [facility] MCHC Auto (RBC) [Mass/Vol]Or dered By: Hanane Rondon on 09-21-2022 MCHC (RBC) [Mass/Vol] 32.6 g/dL 32.0-35.0 [facility] MCV Auto (RBC) [Entitic vol] Ordered By: Hanane Rondon on 09-21-2022 MCV (RBC) [Entitic vol] 88.1 fL 80-100 [facility] Monocytes Auto (Bld) [#/Vol] Ordered By: Hanane Rondon on 09-21-2022 Monocytes (Bld) [#/Vol] 0.6 10*3/uL 0.0-0.8 [facility] Monocytes/100 WBC Auto (Bld) Ordered By: Hanane Rondon on 09-21-2022 Monocytes/100 WBC (Bld) 6.1 % . [facility] Neutrophils Auto (Bld) [#/Vo l]Ordered By: Hanane Rondon on 09-21-2022 Neutrophils (Bld) [#/Vol] 4.5 10*3/uL 1.8-7.7 [facility] Neutrophils/100 WBC Auto (Bl d)Ordered By: Hanane Rondon on 09-21-2022 Neutrophils/100 WBC (Bld) 47.5 % . [facility] No Panel InformationOrdered By: Hanane Rondon on 09-21-2022 Estimated GFR () > 60 mL/Min [facility] Comment on above: GFR estimated refere nce range: According to KDOQI guidelines, <60 ml/min/1.73m2 is sufficient to diagnose a patient with chronic kidney disease. Pharmacy Creatinine Clearance (Chem 145.43 [facility] Platelet adequacy [Presence] in Blood by Light microscopyOrdered By: Hanane Rondon on 09-21-2022 Platelets LM Ql (Bld) Normal Normal [facility] Platelet mean volume Auto (B ld) [Entitic vol]Ordered By: Hanane Rondon on 09-21-2022 Platelet mean volume (Bld) [Entitic vol] 8.3 fL 6.3-10.7 [facility] Platelet morphology finding [Identifier] in BloodOrdered By: Hanane Rondon on 09-21-2022 Platelet morphology finding Nom (Bld) Normal Normal [facility] Platelet poor plasma interna tional normalized ratio (INR) by coagulation assay (relatOrdered By: Hanane Rondon on 09-21-2022 INR Coag (PPP) [Relative time] 1.0 {INR} [facility] Comment on above: INR Therapeutic Rang e A) Pre- and Peroperative OAT started two weeks before surgery. NOT HIP SURGERY: 1.5 - 2.5 HIP SURGERY: 2 - 3B) Primary and secondary prevention of venous THROMBOSIS: 2 - 3C) Active venous thrombosis, pulmonary embolismand prevention of recurrent venous thrombosis: 2 - 3D) Prevention of arterial thromboembolismincluding patients with mechanical heart valves: 3 - 4.5 Platelets Auto (Bld) [#/Vol] Ordered By: Hanane Rondon on 09-21-2022 Platelets (Bld) [#/Vol] 393 10*3/uL 150-450 [facility] RBC Auto (Bld) [#/Vol]Ordere d By: Hanane Rondon on 09-21-2022 RBC (Bld) [#/Vol] 3.95 10*6/uL 3.60-5.00 [facility] RBC morphologyOrdered By: Dane Rondon on 09-21-2022 RBC morphology finding Nom (Bld) N/A [facility] Serum or plasma anion gap de terminationOrdered By: Hanane Rondon on 09-21-2022 Anion gap [Moles/Vol] 13.2 mmol/L 6.0-15.0 [facility] Serum or plasma calcium buzz urement (mass/volume)Ordered By: Hanane Rondon on 09-21-2022 Calcium [Mass/Vol] 9.1 mg/dL 8.2-10.2 [facility] Serum or plasma chloride celestino surement (moles/volume)Ordered By: Hanane Rondon on 09-21-2022 Chloride [Moles/Vol] 103 mmol/L 95-114 [facility] Serum or plasma creatine kin ase MB (CKMB)/total creatine kinase (CK) ratio by calculaOrdered By: Hanane Rondon on 09-21-2022 CK.MB Calc [Catalytic fraction] 1.2 % 0.00-2.50 [facility] Serum or plasma creatine kin ase MB measurement (mass/volume)Ordered By: Hanane Rondon on 09-21-2022 CK.MB [Mass/Vol] 1.0 ng/mL 0.6-6.3 [facility] Serum or plasma glucose buzz urement (mass/volume)Ordered By: Hanane Rondon on 09-21-2022 Glucose [Mass/Vol] 148 mg/dL 70-100 [facility] Comment on above: ADA recommended refe rence rangeRandom Glucose Reference Range is dependent on time and content of last meal. Glucose of more than 200 mg/dL in a nonstressed, ambulatory subject supports the diagnosis of Diabetes Mellitus. Serum or plasma potassium me asurement (moles/volume)Ordered By: Hanane Rondon on 09-21-2022 Potassium [Moles/Vol] 3.2 mmol/L 3.5-5.1 [facility] Serum or plasma sodium measu rement (moles/volume)Ordered By: Hanane Rondon on 09-21-2022 Sodium [Moles/Vol] 136 mmol/L 136-146 [facility] Serum or plasma total carbon dioxide measurement (moles/volume)Ordered By: Hanane Rondon on 09-21-2022 CO2 [Moles/Vol] 23.0 mmol/L 22.0-30.0 [facility] Serum or plasma urea nitroge n measurement (mass/volume)Ordered By: Hanane Rondon on 09-21-2022 Urea nitrogen [Mass/Vol] 9 mg/dL 9-23 [facility] Troponin I.cardiac [Mass/vol ume] in Serum or Plasma by High sensitivity methodOrdered By: Hanane Rondon on 09-21-2022 Troponin I.cardiac High sensitivity method [Mass/Vol] < 3 pg/mL 0-15 [facility] Urine culture routineOrdered By: Ga Marques on 08-17-2022 Bacteria identified Cx Nom (U) 2 Days [facility] Automated erythrocytes count in urine sediment (number/area)Ordered By: Ga Marques on 08-15-2022 RBC Auto (Urine sed) [#/Area] 3-4 [HPF] 0-4 [facility] Automated leukocytes count i n urine sediment (number/area)Ordered By: Ga Marques on 08-15-2022 WBC Auto (Urine sed) [#/Area] 3-4 [HPF] 0-4 [facility] Automated urine hyaline cast s count (number/volume)Ordered By: Ga Marques on 08-15-2022 Hyaline casts Auto (U) [#/Vol] None seen [LPF] 0-1 [facility] Bilirubin Test strip Ql (U)O rdered By: Ga Marques on 08-15-2022 Bilirubin Ql (U) Negative Negative [facility] Casts typing in urine sedime nt by light microscopyOrdered By: Ga Marques on 08-15-2022 Casts LM Nom (Urine sed) None seen [LPF] None Seen [facility] Color Auto (U)Ordered By: Loreta Marques on 08-15-2022 Color (U) Yellow Yellow [facility] Ketones Auto test strip (U) [Mass/Vol]Ordered By: Ga Marques on 08-15-2022 Ketones (U) [Mass/Vol] Trace Negative [facility] Nitrite Test strip Ql (U)Ord ered By: Ga Marques on 08-15-2022 Nitrite Ql (U) Negative Negative [facility] Protein Auto test strip (U) [Mass/Vol]Ordered By: Ga Marques on 08-15-2022 Protein (U) [Mass/Vol] Trace mg/dL Negative [facility] Specific gravity Auto test s trip (U) [Rel density]Ordered By: Ga Marques on 08-15-2022 Specific gravity (U) [Rel density] 1.025 1.001-1.03 0 [facility] Squamous epithelial cells de tection in urine sediment by light microscopyOrdered By: Ga Marques on 08-15-2022 Epithelial cells.squamous LM Ql (Urine sed) 5-9 [HPF] 0-2 [facility] Urine bacteria detection by automated methodOrdered By: Ga Marques on 08-15-2022 Bacteria Auto Ql (U) None seen None Seen [facility] Urine clarity by refractomet ry automatedOrdered By: Ga Marques on 08-15-2022 Clarity Refractometry automated (U) Clear Clear [facility] Urine glucose measurement by automated test strip (mass/volume)Ordered By: Ga Marques on 08-15-2022 Glucose Auto test strip (U) [Mass/Vol] Normal mg/dL Normal [facility] Urine hemoglobin detection b y automated test stripOrdered By: Ga Marques on 08-15-2022 Hemoglobin Auto test strip Ql (U) Negative Negative [facility] Urine leukocyte esterase det ection by automated test stripOrdered By: Ga Marques on 08-15-2022 Leukocyte esterase Auto test strip Ql (U) Negative Negative [facility] Urobilinogen Auto test strip (U) [Mass/Vol]Ordered By: Ga Marques on 08-15-2022 Urobilinogen (U) [Mass/Vol] Normal mg/dL Normal [facility] pH Auto test strip (U)Ordere d By: Ga Marques on 08-15-2022 pH (U) 5.5 [pH] 5.0-9.0 [facility] Albumin [Mass/volume] in Ser um or PlasmaOrdered By: Ga Marques on 07-21-2022 Albumin [Mass/Vol] 3.3 g/dL 3.2-5.5 [facility] Basophils Auto (Bld) [#/Vol] Ordered By: Ga Marques on 07-21-2022 Basophils (Bld) [#/Vol] 0.1 10*3/uL 0.0-0.2 [facility] Basophils/100 WBC Auto (Bld) Ordered By: Ga Marques on 07-21-2022 Basophils/100 WBC (Bld) 0.8 % . [facility] Blood hemoglobin measurement (mass/volume)Ordered By: Ga Marques on 07-21-2022 Hemoglobin (Bld) [Mass/Vol] 12.5 g/dL 11.8-15.4 [facility] Blood leukocytes automated c ount (number/volume)Ordered By: Ga Marques on 07-21-2022 WBC (Bld) [#/Vol] 9.3 10*3/uL 4.5-11.0 [facility] Cholesterol [Mass/volume] in Serum or PlasmaOrdered By: Ga Marques on 07-21-2022 Cholesterol [Mass/Vol] 189 mg/dL 140-200 [facility] Comment on above: Chol less than 200 m g/dl low risk Chol 201-239 mg/dl borderline risk Chol 240 mg/dl and greater high risk Chol less than 200 m g/dl low riskChol 201-239 mg/dl borderline riskChol 240 mg/dl and greater high risk Cholesterol in LDL Calc [Mas s/Vol]Ordered By: Ga Marques on 07-21-2022 Cholesterol in LDL [Mass/Vol] 143 mg/dL 0-100 [facility] Comment on above: LDL ATP III CLASSIFI CATION LDL less than 100 mg/dL Optimal LDL 100-129 mg/dL Near or above optimal LDL 130-159 mg/dL Borderline high LDL 160-189 mg/dL High LDL greater than 189 mg/dL Very high LDL ATP III CLASSIFI CATIONLDL less than 100 mg/dL OptimalLDL 100-129 mg/dL Near or above optimalLDL 130-159 mg/dL Borderline highLDL 160-189 mg/dL HighLDL greater than 189 mg/dL Very high Cholesterol in VLDL Calc [Ma ss/Vol]Ordered By: Ga Marques on 07-21-2022 Cholesterol in VLDL [Mass/Vol] 15 mg/dL [facility] Creatinine and Glomerular fi ltration rate.predicted panel (S/P/Bld)Ordered By: Ga Marques on 07-21-2022 Creatinine [Mass/Vol] 0.58 mg/dL 0.44-1.03 [facility] Eosinophils Auto (Bld) [#/Vo l]Ordered By: Ga Marques on 07-21-2022 Eosinophils (Bld) [#/Vol] 0.2 10*3/uL 0.0-0.45 [facility] Eosinophils/100 WBC Auto (Bl d)Ordered By: Ga Marques on 07-21-2022 Eosinophils/100 WBC (Bld) 2.1 % . [facility] Erythrocyte distribution wid th Auto (RBC) [Ratio]Ordered By: Ga Marques on 07-21-2022 Erythrocyte distribution width (RBC) [Ratio] 14.7 % 11.9-15.3 [facility] Estimated glomerular filtrat ion rate (GFR) non- AmericanOrdered By: Ga Marques on 07-21-2022 GFR/1.73 sq M.predicted among non-blacks MDRD (S/P/Bld) [Vol rate/Area] > 60 mL/Min [facility] Globulin Calc (S) [Mass/Vol] Ordered By: Ga Marques on 07-21-2022 Globulin (S) [Mass/Vol] 3.4 g/dL [facility] Hematocrit Auto (Bld) [Volum e fraction]Ordered By: Ga Marques on 07-21-2022 Hematocrit (Bld) [Volume fraction] 38.0 % 34.0-46.4 [facility] - Hematology and Cell countsOrdered By: Ga Marques on 07-21-2022 Nucleated RBC/100 WBC (Bld) [Ratio] 0.1 % 0-0.5 [facility] Lymphocytes Auto (Bld) [#/Vo l]Ordered By: Ga Marques on 07-21-2022 Lymphocytes (Bld) [#/Vol] 4.3 10*3/uL 1.00-4.8 [facility] Lymphocytes/100 WBC Auto (Bl d)Ordered By: Ga Marques on 07-21-2022 Lymphocytes/100 WBC (Bld) 46.6 % . [facility] MCH Auto (RBC) [Entitic mass ]Ordered By: Ga Marques on 07-21-2022 MCH (RBC) [Entitic mass] 29.3 pg 24.7-34.3 [facility] MCHC Auto (RBC) [Mass/Vol]Or dered By: Ga Marques on 07-21-2022 MCHC (RBC) [Mass/Vol] 32.9 g/dL 32.0-35.0 [facility] MCV Auto (RBC) [Entitic vol] Ordered By: Ga Marqeus on 07-21-2022 MCV (RBC) [Entitic vol] 89.1 fL 80-100 [facility] Monocytes Auto (Bld) [#/Vol] Ordered By: Ga Marques on 07-21-2022 Monocytes (Bld) [#/Vol] 0.6 10*3/uL 0.0-0.8 [facility] Monocytes/100 WBC Auto (Bld) Ordered By: Ga Marques on 07-21-2022 Monocytes/100 WBC (Bld) 6.1 % . [facility] Neutrophils Auto (Bld) [#/Vo l]Ordered By: Ga Marques on 07-21-2022 Neutrophils (Bld) [#/Vol] 4.1 10*3/uL 1.8-7.7 [facility] Neutrophils/100 WBC Auto (Bl d)Ordered By: Ga Marques on 07-21-2022 Neutrophils/100 WBC (Bld) 44.4 % . [facility] No Panel InformationOrdered By: Ga Marques on 07-21-2022 Estimated GFR () > 60 mL/Min [facility] Comment on above: GFR estimated refere nce range: According to KDOQI guidelines, <60 ml/min/1.73m2 is sufficient to diagnose a patient with chronic kidney disease. Pharmacy Creatinine Clearance (Chem N/A [facility] Platelet mean volume Auto (B ld) [Entitic vol]Ordered By: Ga Marques on 07-21-2022 Platelet mean volume (Bld) [Entitic vol] 8.3 fL 6.3-10.7 [facility] Platelets Auto (Bld) [#/Vol] Ordered By: Ga Marques on 07-21-2022 Platelets (Bld) [#/Vol] 414 10*3/uL 150-450 [facility] Protein [Mass/volume] in Ser um or PlasmaOrdered By: Ga Marques on 07-21-2022 Protein [Mass/Vol] 6.7 g/dL 6.1-7.9 [facility] RBC Auto (Bld) [#/Vol]Ordere d By: Ga Marques on 07-21-2022 RBC (Bld) [#/Vol] 4.27 10*6/uL 3.60-5.00 [facility] Serum or plasma alanine olivarez otransferase measurement without P-5'-P (enzymatic activiOrdered By: Ga Marques on 07-21-2022 ALT No additional P-5'-P [Catalytic activity/Vol] 20 U/L 10-60 [facility] Serum or plasma albumin/glob ulin mass ratioOrdered By: Ga Marques on 07-21-2022 Albumin/Globulin [Mass ratio] 1.0 {ratio} [facility] Serum or plasma alkaline luci sphatase measurement (enzymatic activity/volume)Ordered By: Ga Marques on 07-21-2022 ALP [Catalytic activity/Vol] 69 U/L 32-92 [facility] Serum or plasma aspartate am inotransferase measurement (enzymatic activity/volume)Ordered By: Ga Marques on 07-21-2022 AST [Catalytic activity/Vol] 20 U/L 10-42 [facility] Serum or plasma calcium bzuz urement (mass/volume)Ordered By: Ga Marques on 07-21-2022 Calcium [Mass/Vol] 8.8 mg/dL 8.2-10.2 [facility] Serum or plasma chloride celestino surement (moles/volume)Ordered By: Ga Marques on 07-21-2022 Chloride [Moles/Vol] 107 mmol/L 95-114 [facility] Serum or plasma glucose buzz urement (mass/volume)Ordered By: Ga Marques on 07-21-2022 Glucose [Mass/Vol] 95 mg/dL 70-100 [facility] Comment on above: ADA recommended refe rence range Random Glucose Reference Range is dependent on time and content of last meal. Glucose of more than 200 mg/dL in a nonstressed, ambulatory subject supports the diagnosis of Diabetes Mellitus. ADA recommended refe rence rangeRandom Glucose Reference Range is dependent on time and content of last meal. Glucose of more than 200 mg/dL in a nonstressed, ambulatory subject supports the diagnosis of Diabetes Mellitus. Serum or plasma high density lipoprotein (HDL) cholesterol measurementOrdered By: Ga Marques on 07-21-2022 Cholesterol in HDL [Mass/Vol] 31 mg/dL 35-85 [facility] Comment on above: HDL CHOL ATP-III CLA SSIFICATION Cardiovascular Risk HDL > or equal to 60 mg/dL LOW HDL < 40 mg/dL HIGH HDL CHOL ATP-III CLA SSIFICATION Cardiovascular RiskHDL > or equal to 60 mg/dL LOWHDL < 40 mg/dL HIGH Serum or plasma potassium me asurement (moles/volume)Ordered By: Ga Marques on 07-21-2022 Potassium [Moles/Vol] 3.2 mmol/L 3.5-5.1 [facility] Serum or plasma sodium measu rement (moles/volume)Ordered By: Ga Marques on 07-21-2022 Sodium [Moles/Vol] 139 mmol/L 136-146 [facility] Serum or plasma total biliru bin measurement (mass/volume)Ordered By: Ga Marques on 07-21-2022 Bilirubin [Mass/Vol] 0.3 mg/dL 0.3-1.2 [facility] Serum or plasma total carbon dioxide measurement (moles/volume)Ordered By: Ga Marques on 07-21-2022 CO2 [Moles/Vol] 23.3 mmol/L 22.0-30.0 [facility] Serum or plasma total choles terol/high density lipoprotein (HDL) cholesterol mass ratOrdered By: Ga Marques on 07-21-2022 Cholesterol.total/Cho lesterol in HDL [Mass ratio] 6.1 {ratio} <5.0 [facility] Serum or plasma urea nitroge n measurement (mass/volume)Ordered By: Ga Marques on 07-21-2022 Urea nitrogen [Mass/Vol] 5 mg/dL 9-23 [facility] TSH DL <= 0.005 mIU/L QnOrde red By: Ga Marques on 07-21-2022 TSH Qn 1.11 m[IU]/L 0.45-5.33 [facility] Triglyceride [Mass/volume] i n Serum or PlasmaOrdered By: Ga Marques on 07-21-2022 Triglyceride [Mass/Vol] 77 mg/dL 35-149 [facility] Comment on above: TRIG ATP III CLASSIF ICATION TRIG less than 150 mg/dL Normal TRIG 150-199 mg/dL Borderline high TRIG 200-500 mg/dL High TRIG greater than 500 mg/dL Very high Standard traceable to the Center for Disease Conrtrol and Prevention (CDC) test method. TRIG ATP III CLASSIF ICATIONTRIG less than 150 mg/dL NormalTRIG 150-199 mg/dL Borderline highTRIG 200-500 mg/dL High TRIG greater than 500 mg/dL Very highStandard traceable to the Center for Disease Conrtrol and Prevention (CDC) test method. Glucose mean value [Mass/vol ume] in Blood Estimated from glycated hemoglobinOrdered By: Rigoberto Montano on 06-15-2022 Average glucose Estimated from glycated hemoglobin (Bld) [Mass/Vol] 200 mg/dL [facility] Hemoglobin A1c percentageOrd ered By: Rigoberto Montano on 06-15-2022 HbA1c (Bld) [Mass fraction] 8.6 % 4.3-5.6 [facility] Comment on above: Increased risk for d iabetes: 5.7 - 6.4 diabetes: >6.4 glycemic control for adults with diabetes: <7.0 Increased risk for d iabetes: 5.7 - 6.4diabetes: >6.4glycemic control for adults with diabetes: <7.0 Glucose Glucometer (BldC) [M ass/Vol]Ordered By: Aleksandr Viera on 05-21-2022 Glucose [Mass/Vol] 129 mg/dL [facility] Comment on above: Random Glucose Refer ence Range is dependent on time and content of last meal. Glucose of more than 200 mg/dL in a nonstressed, ambulatory subject supports the diagnosis of Diabetes Mellitus. HCG ( test) IA.rapi d Ql (U)Ordered By: Prateek Lee on 05-21-2022 HCG ( test) Ql (U) Negative [facility] COVID-19 Positive/NegativeOr dered By: Aleksandr Viera on 05-17-2022 SARS-CoV-2 (COVID-19) N gene CODY+probe Ql (Resp) Negative Negative [facility] Comment on above: Testing for SARS-CoV -2 by RT-PCR This test was developed and its performance characteristics determined by [employer] ([email or web address]) and validated at the [facility]. This test has not been FDA cleared or approved. This test has been authorized by FDA under an Emergency Use Authorization (EUA). This test has been validated in accordance with the FDA's Guidance Document (Policy for Diagnostics Testing in Laboratories Certified to Perform High Complexity Testing under CLIA prior to Emergency Use Authorization for Coronavirus Disease-2019 during the Public Health Emergency) issued on February 25, 2020. This test is only authorized for the duration of time the declaration that circumstances exist justifying the authorization of the emergency use of in vitro diagnostic tests for detection of SARS-CoV-2 virus and/or diagnosis of COVID-19 infection under section 564(b)(1) of the Act, 21 U.S.C. 360bbb-3(b)(1), unless the authorization is terminated or revoked sooner. Basophils Auto (Bld) [#/Vol] Ordered By: Aleksandr Viera on 05-11-2022 Basophils (Bld) [#/Vol] 0.0 10*3/uL 0.0-0.2 [facility] Basophils/100 WBC Auto (Bld) Ordered By: Aleksandr Viera on 05-11-2022 Basophils/100 WBC (Bld) 0.7 % . [facility] Blood hemoglobin measurement (mass/volume)Ordered By: Aleksandr Viera on 05-11-2022 Hemoglobin (Bld) [Mass/Vol] 12.1 g/dL 11.8-15.4 [facility] Blood leukocytes automated c ount (number/volume)Ordered By: Aleksandr Viera on 05-11-2022 WBC (Bld) [#/Vol] 6.8 10*3/uL 4.5-11.0 [facility] Creatinine and Glomerular fi ltration rate.predicted panel (S/P/Bld)Ordered By: Aleksandr Viera on 05-11-2022 Creatinine [Mass/Vol] 0.62 mg/dL 0.44-1.03 [facility] Eosinophils Auto (Bld) [#/Vo l]Ordered By: Aleksandr Viera on 05-11-2022 Eosinophils (Bld) [#/Vol] 0.2 10*3/uL 0.0-0.45 [facility] Eosinophils/100 WBC Auto (Bl d)Ordered By: Aleksandr Viera on 05-11-2022 Eosinophils/100 WBC (Bld) 2.4 % . [facility] Erythrocyte distribution wid th Auto (RBC) [Ratio]Ordered By: Aleksandr Viera on 05-11-2022 Erythrocyte distribution width (RBC) [Ratio] 15.5 % 11.9-15.3 [facility] Estimated glomerular filtrat ion rate (GFR) non- AmericanOrdered By: Aleksandr Viera on 05-11-2022 GFR/1.73 sq M.predicted among non-blacks MDRD (S/P/Bld) [Vol rate/Area] > 60 mL/Min [facility] Hematocrit Auto (Bld) [Volum e fraction]Ordered By: Aleksandr Viera on 05-11-2022 Hematocrit (Bld) [Volume fraction] 36.4 % 34.0-46.4 [facility] Laboratory - Hematology and Cell countsOrdered By: Aleksandr Viera on 05-11-2022 Nucleated RBC/100 WBC (Bld) [Ratio] 0.1 % 0-0.5 [facility] Lymphocytes Auto (Bld) [#/Vo l]Ordered By: Aleksandr Viera on 05-11-2022 Lymphocytes (Bld) [#/Vol] 2.8 10*3/uL 1.00-4.8 [facility] Lymphocytes/100 WBC Auto (Bl d)Ordered By: Aleksandr Viera on 05-11-2022 Lymphocytes/100 WBC (Bld) 41.9 % . [facility] MCH Auto (RBC) [Entitic mass ]Ordered By: Aleksandr Viera on 05-11-2022 MCH (RBC) [Entitic mass] 29.5 pg 24.7-34.3 [facility] MCHC Auto (RBC) [Mass/Vol]Or dered By: Aleksandr Viera on 05-11-2022 MCHC (RBC) [Mass/Vol] 33.2 g/dL 32.0-35.0 [facility] MCV Auto (RBC) [Entitic vol] Ordered By: Aleksandr Viera on 05-11-2022 MCV (RBC) [Entitic vol] 88.8 fL 80-100 [facility] Monocytes Auto (Bld) [#/Vol] Ordered By: Aleksandr Viera on 05-11-2022 Monocytes (Bld) [#/Vol] 0.5 10*3/uL 0.0-0.8 [facility] Monocytes/100 WBC Auto (Bld) Ordered By: Aleksandr Viera on 05-11-2022 Monocytes/100 WBC (Bld) 7.7 % . [facility] Neutrophils Auto (Bld) [#/Vo l]Ordered By: Aleksandr Viera on 05-11-2022 Neutrophils (Bld) [#/Vol] 3.2 10*3/uL 1.8-7.7 [facility] Neutrophils/100 WBC Auto (Bl d)Ordered By: Aleksandr Viera on 05-11-2022 Neutrophils/100 WBC (Bld) 47.3 % . [facility] No Panel InformationOrdered By: Aleksandr Viera on 05-11-2022 Estimated GFR () > 60 mL/Min [facility] Comment on above: GFR estimated refere nce range: According to KDOQI guidelines, <60 ml/min/1.73m2 is sufficient to diagnose a patient with chronic kidney disease. Pharmacy Creatinine Clearance (Chem N/A [facility] Platelet mean volume Auto (B ld) [Entitic vol]Ordered By: Aleksandr Viera on 05-11-2022 Platelet mean volume (Bld) [Entitic vol] 8.2 fL 6.3-10.7 [facility] Platelets Auto (Bld) [#/Vol] Ordered By: Aleksandr Viera on 05-11-2022 Platelets (Bld) [#/Vol] 408 10*3/uL 150-450 [facility] RBC Auto (Bld) [#/Vol]Ordere d By: Aleksandr Viera on 05-11-2022 RBC (Bld) [#/Vol] 4.10 10*6/uL 3.60-5.00 [facility] Serum or plasma calcium buzz urement (mass/volume)Ordered By: Aleksandr Viera on 05-11-2022 Calcium [Mass/Vol] 9.4 mg/dL 8.2-10.2 [facility] Serum or plasma chloride celestino surement (moles/volume)Ordered By: Aleksandr Viera on 05-11-2022 Chloride [Moles/Vol] 104 mmol/L 95-114 [facility] Serum or plasma glucose buzz urement (mass/volume)Ordered By: Aleksandr Viera on 05-11-2022 Glucose [Mass/Vol] 148 mg/dL 70-100 [facility] Comment on above: ADA recommended refe rence range Random Glucose Reference Range is dependent on time and content of last meal. Glucose of more than 200 mg/dL in a nonstressed, ambulatory subject supports the diagnosis of Diabetes Mellitus. Serum or plasma potassium me asurement (moles/volume)Ordered By: Aleksandr Viera on 05-11-2022 Potassium [Moles/Vol] 4.0 mmol/L 3.5-5.1 [facility] Serum or plasma sodium measu rement (moles/volume)Ordered By: Aleksandr Viera on 05-11-2022 Sodium [Moles/Vol] 136 mmol/L 136-146 [facility] Serum or plasma total carbon dioxide measurement (moles/volume)Ordered By: Aleksandr Viera on 05-11-2022 CO2 [Moles/Vol] 19.6 mmol/L 22.0-30.0 [facility] Serum or plasma urea nitroge n measurement (mass/volume)Ordered By: Aleksandr Viera on 05-11-2022 Urea nitrogen [Mass/Vol] 5 mg/dL 08-17 [facility] Albumin [Mass/volume] in Ser um or PlasmaOrdered By: Ga Marques on 03-17-2022 Albumin [Mass/Vol] 3.4 g/dL 3.2-5.5 [facility] Basophils Auto (Bld) [#/Vol] Ordered By: Ga Marques on 03-17-2022 Basophils (Bld) [#/Vol] 0.2 10*3/uL 0.0-0.2 [facility] Basophils/100 WBC Auto (Bld) Ordered By: Ga Marques on 03-17-2022 Basophils/100 WBC (Bld) 1.6 % [facility] Blood hemoglobin measurement (mass/volume)Ordered By: Ga Marques on 03-17-2022 Hemoglobin (Bld) [Mass/Vol] 12.7 g/dL 11.8-15.4 [facility] Blood leukocytes automated c ount (number/volume)Ordered By: Ga Marques on 03-17-2022 WBC (Bld) [#/Vol] 10.9 10*3/uL 4.5-11.0 [facility] Cholesterol [Mass/volume] in Serum or PlasmaOrdered By: Ga Marques on 03-17-2022 Cholesterol [Mass/Vol] 194 mg/dL 140-200 [facility] Comment on above: Chol less than 200 m g/dl low riskChol 201-239 mg/dl borderline riskChol 240 mg/dl and greater high risk Chol less than 200 m g/dl low risk Chol 201-239 mg/dl borderline risk Chol 240 mg/dl and greater high risk Cholesterol in LDL Calc [Mas s/Vol]Ordered By: Ga Marques on 03-17-2022 Cholesterol in LDL [Mass/Vol] 132 mg/dL 0-100 [facility] Comment on above: LDL ATP III CLASSIFI CATIONLDL less than 100 mg/dL OptimalLDL 100-129 mg/dL Near or above optimalLDL 130-159 mg/dL Borderline highLDL 160-189 mg/dL HighLDL greater than 189 mg/dL Very high LDL ATP III CLASSIFI CATION LDL less than 100 mg/dL Optimal LDL 100-129 mg/dL Near or above optimal LDL 130-159 mg/dL Borderline high LDL 160-189 mg/dL High LDL greater than 189 mg/dL Very high Cholesterol in VLDL Calc [Ma ss/Vol]Ordered By: Ga Marques on 03-17-2022 Cholesterol in VLDL [Mass/Vol] 16 mg/dL [facility] Creatinine [Mass/volume] in UrineOrdered By: Ga Marques on 03-17-2022 Creatinine (U) [Mass/Vol] 122.2 mg/dL [facility] Comment on above: No reference range e stablished Creatinine and Glomerular fi ltration rate.predicted panel (S/P/Bld)Ordered By: Ga Marques on 03-17-2022 Creatinine [Mass/Vol] 0.59 mg/dL 0.44-1.03 [facility] Eosinophils Auto (Bld) [#/Vo l]Ordered By: Ga Marques on 03-17-2022 Eosinophils (Bld) [#/Vol] 0.2 10*3/uL 0.0-0.45 [facility] Eosinophils/100 WBC Auto (Bl d)Ordered By: Ga Marques on 03-17-2022 Eosinophils/100 WBC (Bld) 1.5 % [facility] Erythrocyte distribution wid th Auto (RBC) [Ratio]Ordered By: Ga Marques on 03-17-2022 Erythrocyte distribution width (RBC) [Ratio] 16.0 % 11.9-15.3 [facility] Estimated glomerular filtrat ion rate (GFR) non- AmericanOrdered By: Ga Marques on 03-17-2022 GFR/1.73 sq M.predicted among non-blacks MDRD (S/P/Bld) [Vol rate/Area] > 60 mL/Min [facility] Globulin Calc (S) [Mass/Vol] Ordered By: Ga Marques on 03-17-2022 Globulin (S) [Mass/Vol] 3.5 g/dL [facility] Glucose mean value [Mass/vol ume] in Blood Estimated from glycated hemoglobinOrdered By: Ga Marques on 03-17-2022 Average glucose Estimated from glycated hemoglobin (Bld) [Mass/Vol] 163 mg/dL [facility] Hematocrit Auto (Bld) [Volum e fraction]Ordered By: Ga Marques on 03-17-2022 Hematocrit (Bld) [Volume fraction] 38.4 % 34.0-46.4 [facility] Hemoglobin A1c percentageOrd ered By: Ga Marques on 03-17-2022 HbA1c (Bld) [Mass fraction] 7.3 % 4.3-5.6 [facility] Comment on above: Increased risk for d iabetes: 5.7 - 6.4 diabetes: >6.4 glycemic control for adults with diabetes: <7.0 Laboratory - Hematology and Cell countsOrdered By: Ga Marques on 03-17-2022 Nucleated RBC/100 WBC (Bld) [Ratio] 0.1 % 0-0.5 [facility] Lymphocytes Auto (Bld) [#/Vo l]Ordered By: Ga Marques on 03-17-2022 Lymphocytes (Bld) [#/Vol] 3.2 10*3/uL 1.00-4.8 [facility] Lymphocytes/100 WBC Auto (Bl d)Ordered By: Ga Marques on 03-17-2022 Lymphocytes/100 WBC (Bld) 29.6 % [facility] MCH Auto (RBC) [Entitic mass ]Ordered By: Ga Marques on 03-17-2022 MCH (RBC) [Entitic mass] 29.4 pg 24.7-34.3 [facility] MCHC Auto (RBC) [Mass/Vol]Or dered By: Ga Marques on 03-17-2022 MCHC (RBC) [Mass/Vol] 33.0 g/dL 32.0-35.0 [facility] MCV Auto (RBC) [Entitic vol] Ordered By: Ga Marques on 03-17-2022 MCV (RBC) [Entitic vol] 89.0 fL 80-100 [facility] Monocytes Auto (Bld) [#/Vol] Ordered By: Ga Marques on 03-17-2022 Monocytes (Bld) [#/Vol] 0.3 10*3/uL 0.0-0.8 [facility] Monocytes/100 WBC Auto (Bld) Ordered By: Ga Marques on 03-17-2022 Monocytes/100 WBC (Bld) 2.8 % [facility] Neutrophils Auto (Bld) [#/Vo l]Ordered By: Ga Marques on 03-17-2022 Neutrophils (Bld) [#/Vol] 7.0 10*3/uL 1.8-7.7 [facility] Neutrophils/100 WBC Auto (Bl d)Ordered By: Ga Marques on 03-17-2022 Neutrophils/100 WBC (Bld) 64.5 % [facility] No Panel InformationOrdered By: Ga Marques on 03-17-2022 Estimated GFR () > 60 mL/Min [facility] Comment on above: GFR estimated refere nce range: According to KDOQI guidelines, <60 ml/min/1.73m2 is sufficient to diagnose a patient with chronic kidney disease. Pharmacy Creatinine Clearance (Chem N/A [facility] Platelet mean volume Auto (B ld) [Entitic vol]Ordered By: Ga Marques on 03-17-2022 Platelet mean volume (Bld) [Entitic vol] 8.0 fL 6.3-10.7 [facility] Platelets Auto (Bld) [#/Vol] Ordered By: Ga Marques on 03-17-2022 Platelets (Bld) [#/Vol] 416 10*3/uL 150-450 [facility] Protein [Mass/volume] in Ser um or PlasmaOrdered By: Ga Marques on 03-17-2022 Protein [Mass/Vol] 6.9 g/dL 6.1-7.9 [facility] RBC Auto (Bld) [#/Vol]Ordere d By: Ga Marques on 03-17-2022 RBC (Bld) [#/Vol] 4.32 10*6/uL 3.60-5.00 [facility] Serum or plasma alanine olivarez otransferase measurement without P-5'-P (enzymatic activiOrdered By: Ga Marques on 03-17-2022 ALT No additional P-5'-P [Catalytic activity/Vol] 27 U/L 10-60 [facility] Serum or plasma albumin/glob ulin mass ratioOrdered By: Ga Marques on 03-17-2022 Albumin/Globulin [Mass ratio] 1.0 {ratio} [facility] Serum or plasma alkaline luci sphatase measurement (enzymatic activity/volume)Ordered By: Ga Marques on 03-17-2022 ALP [Catalytic activity/Vol] 78 U/L 32-92 [facility] Serum or plasma aspartate am inotransferase measurement (enzymatic activity/volume)Ordered By: Ga Marques on 03-17-2022 AST [Catalytic activity/Vol] 24 U/L 10-42 [facility] Serum or plasma calcium buzz urement (mass/volume)Ordered By: Ga Marques on 03-17-2022 Calcium [Mass/Vol] 8.7 mg/dL 8.2-10.2 [facility] Serum or plasma chloride celestino surement (moles/volume)Ordered By: Ga Marques on 03-17-2022 Chloride [Moles/Vol] 103 mmol/L 95-114 [facility] Serum or plasma glucose buzz urement (mass/volume)Ordered By: Ga Marques on 03-17-2022 Glucose [Mass/Vol] 139 mg/dL 70-100 [facility] Comment on above: ADA recommended refe rence rangeRandom Glucose Reference Range is dependent on time and content of last meal. Glucose of more than 200 mg/dL in a nonstressed, ambulatory subject supports the diagnosis of Diabetes Mellitus. ADA recommended refe rence range Random Glucose Reference Range is dependent on time and content of last meal. Glucose of more than 200 mg/dL in a nonstressed, ambulatory subject supports the diagnosis of Diabetes Mellitus. Serum or plasma high density lipoprotein (HDL) cholesterol measurementOrdered By: Ga Marques on 03-17-2022 Cholesterol in HDL [Mass/Vol] 45 mg/dL 35-85 [facility] Comment on above: HDL CHOL ATP-III CLA SSIFICATION Cardiovascular RiskHDL > or equal to 60 mg/dL LOWHDL < 40 mg/dL HIGH HDL CHOL ATP-III CLA SSIFICATION Cardiovascular Risk HDL > or equal to 60 mg/dL LOW HDL < 40 mg/dL HIGH Serum or plasma potassium me asurement (moles/volume)Ordered By: Ga Marques on 03-17-2022 Potassium [Moles/Vol] 3.5 mmol/L 3.5-5.1 [facility] Serum or plasma sodium measu rement (moles/volume)Ordered By: Ga Marques on 03-17-2022 Sodium [Moles/Vol] 135 mmol/L 136-146 [facility] Serum or plasma total biliru bin measurement (mass/volume)Ordered By: Ga Marques on 03-17-2022 Bilirubin [Mass/Vol] 0.4 mg/dL 0.3-1.2 [facility] Serum or plasma total carbon dioxide measurement (moles/volume)Ordered By: Ga Marques on 03-17-2022 CO2 [Moles/Vol] 20.7 mmol/L 22.0-30.0 [facility] Serum or plasma total choles terol/high density lipoprotein (HDL) cholesterol mass ratOrdered By: Ga Marques on 03-17-2022 Cholesterol.total/Cho lesterol in HDL [Mass ratio] 4.3 {ratio} [facility] Serum or plasma urea nitroge n measurement (mass/volume)Ordered By: Ga Marques on 03-17-2022 Urea nitrogen [Mass/Vol] 8 mg/dL 08-17 [facility] TSH DL <= 0.005 mIU/L QnOrde red By: Ga Marques on 03-17-2022 TSH Qn 1.19 m[IU]/L 0.45-5.33 [facility] Triglyceride [Mass/volume] i n Serum or PlasmaOrdered By: Ga Marques on 03-17-2022 Triglyceride [Mass/Vol] 84 mg/dL 35-149 [facility] Comment on above: TRIG ATP III CLASSIF ICATIONTRIG less than 150 mg/dL NormalTRIG 150-199 mg/dL Borderline highTRIG 200-500 mg/dL High TRIG greater than 500 mg/dL Very highStandard traceable to the Center for Disease Conrtrol and Prevention (CDC) test method. TRIG ATP III CLASSIF ICATION TRIG less than 150 mg/dL Normal TRIG 150-199 mg/dL Borderline high TRIG 200-500 mg/dL High TRIG greater than 500 mg/dL Very high Standard traceable to the Center for Disease Conrtrol and Prevention (CDC) test method. Urine microalbumin measureme nt with detection limit of 20 mg/L or less (mass/volume)Ordered By: Ga Marques on 03-17-2022 Albumin DL <= 20 mg/L (U) [Mass/Vol] 11.7 mg/dL 0.0-1.8 [facility] Urine microalbumin/creatinin e mass ratioOrdered By: Ga Marques on 03-17-2022 Albumin/Creatinine DL <= 20 mg/L (U) [Mass ratio] 95.0 mg/g 0.0-30.0 [facility] Comment on above: 30-300 mg/g indicate s an increased risk for diabetic nephropathy. Greater than 300 mg/g is consistent with clinical nephropathy. (Am. J. Kidney Disease 1995, 25:107) Vital Signs Date Time Vital Sign Value Performing Clinician Facility 04-05-2024 20:42-0400 Body height 165.1 cm PHYSICIAN NO [facility] 04-05-2024 20:42-0400 Body temperature 98 [degF] PHYSICIAN NO [facility] 04-05-2024 20:42-0400 Body weight 105.5 kg PHYSICIAN NO [facility] 04-05-2024 20:42-0400 Diastolic blood pressure 84 mm[Hg] PHYSICIAN NO [facility] 04-05-2024 20:42-0400 Heart rate 82 /min PHYSICIAN NO [facility] 04-05-2024 20:42-0400 Respiratory rate 18 /min PHYSICIAN NO [facility] 04-05-2024 20:42-0400 SaO2% (BldA) [Mass fraction] 99 % PHYSICIAN NO [facility] 04-05-2024 20:42-0400 Systolic blood pressure 126 mm[Hg] PHYSICIAN NO [facility] 03-23-2024 08:58-0400 Body height 165.1 cm Krystal Koehler MD Work Phone: [facility] 03-23-2024 08:58-0400 Body mass index (BMI) [Ratio] 38.61 kg/m2 Krystal Koehler MD Work Phone: [facility] 03-23-2024 08:58-0400 Body weight 105.23 kg Krystal Koehler MD Work Phone: [facility] 03-23-2024 08:58-0400 Diastolic blood pressure 72 mm[Hg] Krystal Koehler MD Work Phone: [facility] 03-23-2024 08:58-0400 Heart rate 82 /min Krytsal Koehler MD Work Phone: [facility] 03-23-2024 08:58-0400 Systolic blood pressure 112 mm[Hg] Krystal Koehler MD Work Phone: [facility] 03-20-2024 10:09-0400 Body height 167.6 cm Pacc 2 Work Phone: [facility] 03-20-2024 10:09-0400 Body mass index (BMI) [Ratio] 36.65 kg/m2 Pacc 2 Work Phone: [facility] 03-20-2024 10:09-0400 Body temperature 97.3 [degF] Pacc 2 Work Phone: [facility] 03-20-2024 10:09-0400 Body weight 103 kg Pacc 2 Work Phone: [facility] 03-20-2024 10:09-0400 Diastolic blood pressure 79 mm[Hg] Pacc 2 Work Phone: [facility] 03-20-2024 10:09-0400 Heart rate 97 /min Pacc 2 Work Phone: [facility] 03-20-2024 10:09-0400 Respiratory rate 16 /min Pacc 2 Work Phone: [facility] 03-20-2024 10:09-0400 SaO2% (BldA) [Mass fraction] 99 % Pacc 2 Work Phone: [facility] 03-20-2024 10:09-0400 Systolic blood pressure 127 mm[Hg] Pacc 2 Work Phone: [facility] 10-23-2023 21:18-0500 Diastolic blood pressure 76 mm[Hg] IVONE Marques Work Phone: [facility] 10-23-2023 21:18-0500 Heart rate 80 /min IVONE Marques Work Phone: [facility] 10-23-2023 21:18-0500 Respiratory rate 16 /min IVONE Marques Work Phone: [facility] 10-23-2023 21:18-0500 SaO2% (BldA) [Mass fraction] 99 % IVONE Marques Work Phone: [facility] 10-23-2023 21:18-0500 Systolic blood pressure 131 mm[Hg] IVONE Marques Work Phone: [facility] 10-23-2023 17:23-0500 Body height 167.64 cm IVONE Marques Work Phone: [facility] 10-23-2023 17:23-0500 Body temperature 98.2 [degF] IVONE Marques Work Phone: [facility] 10-23-2023 17:23-0500 Body weight 107.7 kg IVONE Marques Work Phone: [facility] 10-23-2023 15:07-0500 Body height 165.1 cm PA-C Ga Marques Work Phone: [facility] 10-23-2023 15:07-0500 Body temperature 97.8 [degF] PA-C Ga Marques Work Phone: [facility] 10-23-2023 15:07-0500 Body weight 106.65 kg PA-C Ga Marques Work Phone: [facility] 10-23-2023 15:07-0500 Diastolic blood pressure 84 mm[Hg] PA-C Ga Marques Work Phone: [facility] 10-23-2023 15:07-0500 Heart rate 84 /min CORIE-C Ga Marques Work Phone: [facility] 10-23-2023 15:07-0500 Respiratory rate 22 /min YOUNGC Ga Marques Work Phone: [facility] 10-23-2023 15:07-0500 SaO2% (BldA) [Mass fraction] 100 % PA-C Ga Marques Work Phone: [facility] 10-23-2023 15:07-0500 Systolic blood pressure 155 mm[Hg] PA-Johanna Marques Work Phone: [facility] 08-20-2023 12:55-0400 Body height 165.1 cm CORIE-Johanna Marques Work Phone: [facility] 08-20-2023 12:55-0400 Body temperature 98.5 [degF] PA-C Ga Marques Work Phone: [facility] 08-20-2023 12:55-0400 Body weight 101.2 kg IVONE Marques Work Phone: [facility] 08-20-2023 12:55-0400 Diastolic blood pressure 87 mm[Hg] PA-Johanna Marques Work Phone: [facility] 08-20-2023 12:55-0400 Heart rate 86 /min PAJosé Marques Work Phone: [facility] 08-20-2023 12:55-0400 Respiratory rate 20 /min IVONE Marques Work Phone: [facility] 08-20-2023 12:55-0400 SaO2% (BldA) [Mass fraction] 99 % PA-Johanna Marques Work Phone: [facility] 08-20-2023 12:55-0400 Systolic blood pressure 138 mm[Hg] PA-Johanna Marques Work Phone: [facility] 07-01-2023 18:06-0400 Body height 165.1 cm IVONE Marques Work Phone: [facility] 07-01-2023 18:06-0400 Body temperature 98.1 [degF] IVONE Marques Work Phone: [facility] 07-01-2023 18:06-0400 Body weight 102.15 kg IVONE Marques Work Phone: [facility] 07-01-2023 18:06-0400 Diastolic blood pressure 90 mm[Hg] IVONE Marques Work Phone: [facility] 07-01-2023 18:06-0400 Heart rate 96 /min IVONE Marques Work Phone: [facility] 07-01-2023 18:06-0400 Respiratory rate 18 /min IVONE Marques Work Phone: [facility] 07-01-2023 18:06-0400 SaO2% (BldA) [Mass fraction] 95 % IVONE Marques Work Phone: [facility] 07-01-2023 18:06-0400 Systolic blood pressure 142 mm[Hg] IVONE Marques Work Phone: [facility] 05-23-2023 21:28-0400 Body height 165.1 cm IVONE Marques Work Phone: [facility] 05-23-2023 21:28-0400 Body temperature 98.5 [degF] IVONE Marques Work Phone: [facility] 05-23-2023 21:28-0400 Body weight 102.7 kg IVONE Marques Work Phone: [facility] 05-23-2023 21:28-0400 Diastolic blood pressure 75 mm[Hg] IVONE Marques Work Phone: [facility] 05-23-2023 21:28-0400 Heart rate 96 /min IVONE Marques Work Phone: [facility] 05-23-2023 21:28-0400 Respiratory rate 20 /min IVONE Marques Work Phone: [facility] 05-23-2023 21:28-0400 SaO2% (BldA) [Mass fraction] 97 % IVONE Marques Work Phone: [facility] 05-23-2023 21:28-0400 Systolic blood pressure 139 mm[Hg] IVONE Marques Work Phone: [facility] 03-01-2023 10:00-0400 72 1 Ga Marques Work Phone: [facility] [address] [place] Work Phone: Comment on above: [place] [id number] 02-21-2023 14:30-0400 65 1 Ga Marques Work Phone: [facility] [address] [place] Work Phone: Comment on above: [id number] 02-11-2023 09:46-0400 Diastolic blood pressure 70 mm[Hg] Ga Marques Work Phone: [facility] [address] [place] Work Phone: 02-11-2023 09:46-0400 Systolic blood pressure 108 mm[Hg] Ga Marques Work Phone: [facility] [address] [place] Work Phone: 02-11-2023 09:45-0400 Body height 167.64 cm Ga Marques Work Phone: [facility] [address] [place] Work Phone: 02-11-2023 09:45-0400 Body mass index (BMI) [Ratio] 37.12 kg/m2 Ga Marques Work Phone: [facility] [address] Work Phone: 02-11-2023 09:45-0400 Body surface area Derived from formula 2.12 m2 Ga Marques Work Phone: [facility] [address] [place] Work Phone: 02-11-2023 09:45-0400 Body weight 104.33 kg Ga Marques Work Phone: [facility] [address] Work Phone: 02-11-2023 09:45-0400 Diastolic blood pressure 78 mm[Hg] Ga Marques Work Phone: [facility] [address] [place] Work Phone: 02-11-2023 09:45-0400 Heart rate 76 /min Ga Marques Work Phone: [facility] [address] Work Phone: 02-11-2023 09:45-0400 Systolic blood pressure 116 mm[Hg] Ga Marques Work Phone: [facility] [address] [place] Work Phone: 01-13-2023 03:00-0500 Diastolic blood pressure 79 mm[Hg] IVONE Marques Work Phone: [facility] 01-13-2023 03:00-0500 Heart rate 87 /min IVONE Marques Work Phone: [facility] 01-13-2023 03:00-0500 Respiratory rate 19 /min PA-C Ga Marques Work Phone: [facility] 01-13-2023 03:00-0500 SaO2% (BldA) [Mass fraction] 99 % PA-Johanna Marques Work Phone: [facility] 01-13-2023 03:00-0500 Systolic blood pressure 149 mm[Hg] PA-Johanna Marques Work Phone: [facility] 01-13-2023 01:05-0500 Body height 165.1 cm PA-C Ga Marques Work Phone: [facility] 01-13-2023 01:05-0500 Body temperature 98.3 [degF] CORIE-Johanna Marques Work Phone: [facility] 01-13-2023 01:05-0500 Body weight 105 kg CORIE-Johanna Marques Work Phone: [facility] 01-04-2023 13:35-0500 Body height 165.1 cm PA-Johanna Marques Work Phone: [facility] 01-04-2023 13:35-0500 Body temperature 98.3 [degF] CORIE-Johanna Marques Work Phone: [facility] 01-04-2023 13:35-0500 Body weight 104 kg IVONE Marques Work Phone: [facility] 01-04-2023 13:35-0500 Diastolic blood pressure 76 mm[Hg] PA-Johanna Marques Work Phone: [facility] 01-04-2023 13:35-0500 Heart rate 95 /min IVONE Marques Work Phone: [facility] 01-04-2023 13:35-0500 Respiratory rate 22 /min PAJosé Marques Work Phone: [facility] 01-04-2023 13:35-0500 SaO2% (BldA) [Mass fraction] 98 % IVONE Marques Work Phone: [facility] 01-04-2023 13:35-0500 Systolic blood pressure 141 mm[Hg] IVONE Marques Work Phone: [facility] 11-30-2022 02:15-0500 Body height 165.1 cm IVONE Marques Work Phone: [facility] 11-30-2022 02:15-0500 Body weight 104.05 kg CORIE-Johanna Marques Work Phone: [facility] 11-30-2022 02:14-0500 Body temperature 98.5 [degF] IVONE Marques Work Phone: [facility] 11-30-2022 02:14-0500 Diastolic blood pressure 88 mm[Hg] IVONE Marques Work Phone: [facility] 11-30-2022 02:14-0500 Heart rate 95 /min IVONE Marques Work Phone: [facility] 11-30-2022 02:14-0500 Respiratory rate 20 /min IVONE Marques Work Phone: [facility] 11-30-2022 02:14-0500 SaO2% (BldA) [Mass fraction] 99 % IVONE Marques Work Phone: [facility] 11-30-2022 02:14-0500 Systolic blood pressure 157 mm[Hg] IVONE Marques Work Phone: [facility] 09-21-2022 17:16-0400 Diastolic blood pressure 77 mm[Hg] IVONE Marques Work Phone: [facility] 09-21-2022 17:16-0400 Heart rate 72 /min IVONE Marques Work Phone: [facility] 09-21-2022 17:16-0400 Respiratory rate 18 /min IVONE Marques Work Phone: [facility] 09-21-2022 17:16-0400 SaO2% (BldA) [Mass fraction] 100 % IVONE Marques Work Phone: [facility] 09-21-2022 17:16-0400 Systolic blood pressure 126 mm[Hg] IVONE Marques Work Phone: [facility] 09-21-2022 15:58-0400 Body height 165.1 cm IVONE Marques Work Phone: [facility] 09-21-2022 15:58-0400 Body temperature 99.3 [degF] IVONE Marques Work Phone: [facility] 09-21-2022 15:58-0400 Body weight 106.59 kg IVONE Marques Work Phone: [facility] 09-13-2022 09:17-0400 Body height 167.64 cm IVONE Marques Work Phone: [facility] 09-13-2022 09:17-0400 Body temperature 98.6 [degF] IVONE Marques Work Phone: [facility] 09-13-2022 09:17-0400 Body weight 108.2 kg IVONE Marques Work Phone: [facility] 09-13-2022 09:17-0400 Diastolic blood pressure 92 mm[Hg] IVONE Marques Work Phone: [facility] 09-13-2022 09:17-0400 Heart rate 85 /min IVONE Marques Work Phone: [facility] 09-13-2022 09:17-0400 Respiratory rate 18 /min IVONE Marques Work Phone: [facility] 09-13-2022 09:17-0400 SaO2% (BldA) [Mass fraction] 99 % IVONE Marques Work Phone: [facility] 09-13-2022 09:17-0400 Systolic blood pressure 141 mm[Hg] PA-Johanna Marques Work Phone: [facility] 08-03-2022 19:16-0400 Body height 165.1 cm IVONE Marques Work Phone: [facility] 08-03-2022 19:16-0400 Body temperature 98.5 [degF] IVONE Marques Work Phone: [facility] 08-03-2022 19:16-0400 Body weight 109.25 kg PA-Johanna Marques Work Phone: [facility] 08-03-2022 19:16-0400 Diastolic blood pressure 83 mm[Hg] CORIE-Johanna Marques Work Phone: [facility] 08-03-2022 19:16-0400 Heart rate 80 /min IVONE Marques Work Phone: [facility] 08-03-2022 19:16-0400 Respiratory rate 18 /min IVONE Marques Work Phone: [facility] 08-03-2022 19:16-0400 SaO2% (BldA) [Mass fraction] 98 % IVONE Marques Work Phone: [facility] 08-03-2022 19:16-0400 Systolic blood pressure 131 mm[Hg] IVONE Marques Work Phone: [facility] 06-29-2022 19:16-0400 Body height 165.1 cm IVONE Marques Work Phone: [facility] 06-29-2022 19:16-0400 Body temperature 99.5 [degF] IVONE Marques Work Phone: [facility] 06-29-2022 19:16-0400 Body weight 108.8 kg IVONE Marques Work Phone: [facility] 06-29-2022 19:16-0400 Diastolic blood pressure 90 mm[Hg] IVONE Marques Work Phone: [facility] 06-29-2022 19:16-0400 Heart rate 81 /min IVONE Marques Work Phone: [facility] 06-29-2022 19:16-0400 Respiratory rate 18 /min PA-Johanna Marques Work Phone: [facility] 06-29-2022 19:16-0400 SaO2% (BldA) [Mass fraction] 100 % PA-Johanna Marques Work Phone: [facility] 06-29-2022 19:16-0400 Systolic blood pressure 134 mm[Hg] CORIE-Johanna Marques Work Phone: [facility] 05-26-2022 23:21-0400 Heart rate 82 /min IVONE Marques Work Phone: [facility] 05-26-2022 23:21-0400 Respiratory rate 18 /min PAJosé Marques Work Phone: [facility] 05-26-2022 23:21-0400 SaO2% (BldA) [Mass fraction] 99 % IVONE Marques Work Phone: [facility] 05-26-2022 21:17-0400 Body height 167.64 cm IVONE Marques Work Phone: [facility] 05-26-2022 21:17-0400 Body mass index (BMI) [Ratio] 39.5 kg/m2 IVONE Marques Work Phone: [facility] 05-26-2022 21:17-0400 Body temperature 99.2 [degF] IVONE Marques Work Phone: [facility] 05-26-2022 21:17-0400 Body weight 111.13 kg IVONE Marques Work Phone: [facility] 05-26-2022 21:17-0400 Diastolic blood pressure 105 mm[Hg] CORIE-Johanna Marques Work Phone: [facility] 05-26-2022 21:17-0400 Systolic blood pressure 155 mm[Hg] IVONE Marques Work Phone: [facility] 05-21-2022 14:45-0400 Diastolic blood pressure 90 mm[Hg] IVONE Marques Work Phone: [facility] 05-21-2022 14:45-0400 Heart rate 98 /min IVONE Marques Work Phone: [facility] 05-21-2022 14:45-0400 Respiratory rate 20 /min IVONE Marques Work Phone: [facility] 05-21-2022 14:45-0400 SaO2% (BldA) [Mass fraction] 96 % IVONE Marques Work Phone: [facility] 05-21-2022 14:45-0400 Systolic blood pressure 148 mm[Hg] IVONE Marques Work Phone: [facility] 05-21-2022 13:06-0400 Body height 167.64 cm IVONE Marques Work Phone: [facility] 05-21-2022 13:06-0400 Body mass index (BMI) [Ratio] 39.2 kg/m2 IVONE Marques Work Phone: [facility] 05-21-2022 13:06-0400 Body weight 110.4 kg IVONE Marques Work Phone: [facility] 05-21-2022 12:10-0400 Body temperature 98 [degF] IVONE Marques Work Phone: [facility] 03-08-2022 10:54-0400 Body temperature 98.6 [degF] [facility] 03-08-2022 10:54-0400 Diastolic blood pressure 79 mm[Hg] [facility] 03-08-2022 10:54-0400 Heart rate 86 /min [facility] 03-08-2022 10:54-0400 Respiratory rate 18 /min [facility] 03-08-2022 10:54-0400 SaO2% (BldA) [Mass fraction] 97 % [facility] 03-08-2022 10:54-0400 Systolic blood pressure 124 mm[Hg] [facility] 03-08-2022 10:48-0400 Body height 165.1 cm [facility] 03-08-2022 10:48-0400 Body mass index (BMI) [Ratio] 39.7 kg/m2 [facility] 03-08-2022 10:48-0400 Body weight 108.4 kg [facility] 02-20-2022 20:40-0400 Body temperature 98.1 [degF] [facility] 02-20-2022 20:40-0400 Diastolic blood pressure 75 mm[Hg] [facility] 02-20-2022 20:40-0400 Heart rate 87 /min [facility] 02-20-2022 20:40-0400 Respiratory rate 18 /min [facility] 02-20-2022 20:40-0400 SaO2% (BldA) [Mass fraction] 98 % [facility] 02-20-2022 20:40-0400 Systolic blood pressure 131 mm[Hg] [facility] 02-20-2022 20:38-0400 Body height 165.1 cm [facility] 02-20-2022 20:38-0400 Body mass index (BMI) [Ratio] 40.2 kg/m2 [facility] 02-20-2022 20:38-0400 Body weight 109.76 kg [facility] 01-09-2022 23:43-0500 Body height 165.1 cm [facility] 01-09-2022 23:43-0500 Body mass index (BMI) [Ratio] 39.6 kg/m2 [facility] 01-09-2022 23:43-0500 Body temperature 98 [degF] [facility] 01-09-2022 23:43-0500 Body weight 107.95 kg [facility] 01-09-2022 23:43-0500 Diastolic blood pressure 88 mm[Hg] [facility] 01-09-2022 23:43-0500 Heart rate 91 /min [facility] 01-09-2022 23:43-0500 Respiratory rate 18 /min [facility] 01-09-2022 23:43-0500 SaO2% (BldA) [Mass fraction] 100 % [facility] 01-09-2022 23:43-0500 Systolic blood pressure 153 mm[Hg] [facility] Encounters Encounter Date Encounter Type Care Provider Facility Start: 07-10-2024 Telephone encounter Eulalia Fuentes DPM Work Phone: Orthopaedics Comment on above: Disability Start: 07-06-2024 End: 07-06-2024 ambulatory [facility] Start: 07-06-2024 End: 07-06-2024 Encounter for preprocedural cardiovascular examination [facility] Start: 06-23-2024 End: 06-23-2024 ambulatory SELF Facility:[facility] Start: 06-23-2024 End: 06-23-2024 Patient encounter procedure Eulalia Fuentes DPM Work Phone: Podiatry Comment on above: Post-operative state (Primary Dx) Start: 06-11-2024 End: 06-11-2024 ambulatory RIGOBERTO MONTANO Not Available Start: 06-08-2024 End: 06-08-2024 ambulatory Eulalia Ruby DPM Work Phone: Orthopaedics Comment on above: Post-operative state (Primary Dx) Start: 06-08-2024 End: 06-08-2024 Telemedicine consultation with patient Eulalia Fuentes DPM Work Phone: Orthopaedics Start: 06-05-2024 Telephone encounter Eulalia Fuentes DPM Work Phone: Orthopaedics Comment on above: Patient Update Start: 05-26-2024 ambulatory ARMIN Eddy y:SARAH Patterson Start: 05-20-2024 End: 05-20-2024 ambulatory EULALIA FUENTES Facility:[facility] Start: 05-20-2024 End: 05-20-2024 Patient encounter procedure Eulalia Fuentes DPM Work Phone: Orthopaedics Comment on above: Post-operative state (Primary Dx) Start: 05-19-2024 End: 05-19-2024 ambulatory RIGOBERTO MONTANO Not Available Start: 05-11-2024 Telephone encounter Eulalia Fuentes DPM Work Phone: Orthopaedics Start: 05-07-2024 End: 05-07-2024 ambulatory EULALIA FUENTES Facility:[facility] Start: 05-07-2024 End: 05-07-2024 Patient encounter procedure Eulalia Ruby DPM Work Phone: Orthopaedics Comment on above: Post-operative state (Primary Dx) Start: 05-05-2024 Telephone encounter Eulalia Fuentes DPM Work Phone: Orthopaedics Comment on above: FMLA Paperwork Start: 04-27-2024 End: 04-27-2024 ambulatory EULALIA FUENTES Facility:[facility] Start: 04-27-2024 End: 04-27-2024 Patient encounter procedure Eulalia Ruby DPM Work Phone: Orthopaedics Comment on above: Difficulty walking ( Primary Dx); Right foot pain; Painful scar; Neuritis of left lower extremity; Fibromyalgia Start: 04-24-2024 End: 04-24-2024 Patient encounter procedure PHYSICIAN NO [facility]Ul[facility] [place] Work Phone: Start: 04-24-2024 End: 04-24-2024 ambulatory PHYSICIAN NO [facility] Work Phone: Start: 04-14-2024 Telephone encounter Pacc Lizzy n 1 Work Phone: Pre Anesthesia Start: 04-06-2024 Telephone encounter Eulalia Fuentes DPM Work Phone: Podiatry Comment on above: surgery question and infected toe Start: 04-05-2024 End: 04-05-2024 Emergency department patient visit PHYSICIAN NO [facility]-Emergency Room Work Phone: Start: 03-24-2024 Telephone encounter Eulalia Fuentes DPM Work Phone: Orthopaedics Start: 03-23-2024 End: 03-23-2024 Office outpatient visit 25 minutes Krystal Koehler MD Work Phone: [facility] Comment on above: Medication course ch anged (Primary Dx); Diabetes mellitus type II, non insulin dependent (Multi); Anemia, unspecified type; Primary hypertension; BMI 38.0-38.9,adult; Smoker; Hyperlipidemia, unspecified hyperlipidemia type Start: 03-23-2024 End: 03-23-2024 ambulatory [facility] Start: 03-20-2024 End: 03-20-2024 Admission to establishment [facility] [place] [facility] Work Phone: Pre Anesthesia Start: 03-20-2024 End: 03-20-2024 ambulatory [place] Facility:[facility] Start: 03-20-2024 End: 03-20-2024 Anesthesia consultation [facility] 2 Work Phone: Pre Anesthesia Comment on above: Pre-op evaluation (P rimary Dx); Hyperlipidemia, unspecified hyperlipidemia type; Type 2 diabetes mellitus with other specified complication, without long-term current use of insulin ([facility]); Fibromyalgia; Migraine without status migrainosus, not intractable, unspecified migraine type; Cigarette nicotine dependence without complication; Mild intermittent asthma without complication; Obstructive sleep apnea of adult; Gastro-esophageal reflux disease without esophagitis; Class 2 severe obesity due to excess calories with serious comorbidity and body mass index (BMI) of 36.0 to 36.9 in adult ([facility]) Start: 03-20-2024 Encounter for other preprocedural examination EULALIA FUENTES [facility] Start: 03-20-2024 End: 03-20-2024 Preprocedural examination done [facility] [place] 2 Work Phone: [facility] Work Phone: Start: 03-17-2024 ambulatory Eulalia Fuentes DPM Work Phone: Orthopaedics Comment on above: My toes look infecte d Start: 03-17-2024 Telephone encounter Eulalia Fuentes DPM Work Phone: [facility] Comment on above: Patient Update; Kelsie ent Question Start: 03-11-2024 End: 03-11-2024 ambulatory Samara Greco PT, DPT Work Phone: [facility] Comment on above: Type 2 diabetes karol itus with diabetic polyneuropathy, unspecified whether fci insulin use (HCC); BMI 39.0-39.9,adult; Difficulty walking; Eversion deformity of foot, left; Painful scar Start: 03-09-2024 End: 03-09-2024 ambulatory EULALIA FUENTES Facility:[facility] Start: 03-09-2024 End: 03-09-2024 Patient encounter procedure Eulalia Fuentes DPM Work Phone: Orthopaedics Comment on above: Ingrown toenail (Ivonne rola Dx); Pain in both feet; Acquired dysmorphic toenail; History of foot surgery; Diabetes mellitus type 2 with neurological manifestations (HCC); BMI 39.0-39.9,adult; Fibromyalgia; Eversion deformity of foot, left Start: 02-04-2024 ambulatory Eulalia Fuentes DPM Work Phone: Orthopaedics Start: 02-04-2024 Telephone encounter Eulalia Fuentes DPM Work Phone: Orthopaedics Comment on above: Surgical Followup Start: 02-03-2024 End: 02-03-2024 ambulatory EULALIA FUENTES Facility:[facility] Start: 02-03-2024 End: 02-03-2024 Patient encounter procedure Eulalia Fuentes DPM Work Phone: Orthopaedics Comment on above: Ingrown toenail (Ivonne rola Dx); History of foot surgery; Diabetes mellitus type 2 with neurological manifestations (HCC); Painful scar; Acquired dysmorphic toenail; Eversion deformity of foot, left; Hyperkeratosis Start: 01-25-2024 End: 01-25-2024 Patient encounter procedure PHYSICIAN NO FAMILY [facility]trasound [facility] [place] Work Phone: Start: 01-25-2024 End: 01-25-2024 ambulatory PHYSICIAN NO [facility] Facility:[facility] Start: 01-14-2024 Telephone encounter Eulalia Fuentes DPM Work Phone: Orthopaedics Comment on above: Schedule Surgery Start: 01-03-2024 End: 01-03-2024 ambulatory EULALIA FUENTES Facility:[facility] Start: 01-03-2024 End: 01-03-2024 Patient encounter procedure Eulalia Fuentes NAHIDMyles Work Phone: Orthopaedics Comment on above: History of foot surg dave (Primary Dx); Eversion deformity of foot, left; Hyperkeratosis; Neuritis of left lower extremity; Diabetes mellitus type 2 with neurological manifestations (HCC); Difficulty walking; Painful scar; Pain in both feet; Neuralgia of left lower extremity; Chronic pain of left ankle; Acquired dysmorphic toenail Start: 11-20-2023 End: 11-20-2023 Patient encounter procedure IVONE Marques Work Phone: [facility] Work Phone: Start: 11-20-2023 End: 11-20-2023 ambulatory IVONE Marques Work Phone: [facility] Work Phone: Start: 11-01-2023 End: 11-01-2023 ambulatory Julianna Pollard RT(R) Radiology Comment on above: Radiology XR Start: 11-01-2023 End: 11-01-2023 Patient encounter procedure uJlianna Pollard RT(R) [facility] [place] Comment on above: Eversion deformity o f foot, left (Primary Dx); Hyperkeratosis; Neuritis of left lower extremity; History of foot surgery; Diabetes mellitus type 2 with neurological manifestations (HCC); Difficulty walking; Painful scar Start: 10-30-2023 End: 10-30-2023 ambulatory RIGOBERTO ADDIE Not Available Start: 10-23-2023 End: 10-23-2023 Emergency department patient visit IVONE Marques Work Phone: [facility] Work Phone: Start: 10-23-2023 End: 10-23-2023 Emergency department patient visit IVONE Marques Work Phone: [facility] Work Phone: Start: 10-09-2023 End: 10-09-2023 ambulatory RIGOBERTO ADDIE Not Available Start: 08-20-2023 End: 08-20-2023 Emergency department patient visit IVONE Ga Marques Work Phone: [facility] Work Phone: Start: 07-01-2023 End: 07-01-2023 Emergency department patient visit IVONE Marques Work Phone: [facility] Work Phone: Start: 05-23-2023 End: 05-23-2023 Emergency department patient visit IVONE Marques Work Phone: [facility] Work Phone: Start: 03-28-2023 Encounter for preprocedural laboratory examination GA MARQUES [facility] Start: 03-25-2023 End: 03-26-2023 Encounter for preprocedural laboratory examination [facility] Facility: Start: 03-25-2023 End: 03-26-2023 ambulatory [facility] Facility: Start: 03-15-2023 Chart Update Ga Marques Work Phone: [facility] [address] DO Work Phone: Start: 03-15-[address] Krystal Paulino ty:[id number] Start: 03-01-2023 Patient encounter procedure Ga Marques Work Phone: [facility] [address] [place] Work Phone: Start: 03-01-[address] Krystal Paulino ty:[id number] Start: 02-21-2023 Patient encounter procedure Ga Marques Work Phone: [facility] [address] [place] Work Phone: Start: 02-21-[address] Krystal Paulino ty:[id number] Start: 02-18-2023 Chart Update Ga Marques Work Phone: [facility] 250 DO Work Phone: Start: 02-18-2023 End: 02-18-2023 ambulatory IVONE Marques Work Phone: [facility] Work Phone: Start: 02-18-2023 End: 02-18-2023 Patient encounter procedure IVONE Marquse Work Phone: [facility] [place] Work Phone: Start: 02-12-2023 ECHO, Provider: IRASEMA CHANEY ULTRASOUND 01,[id number], Status: Pen, Time: 10:45 AM Ga Marques Work Phone: [facility]-[place] 250 DO Work Phone: Start: 02-11-2023 Office consultation new/estab patient 60 min Ga Marques Work Phone: [facility]-[place] 250 DO Work Phone: Start: 02-11-2023 ambulatory Krystal Koehler Facility:[id number] Start: 02-07-2023 ambulatory Joe Meek Faci lity:[id number] Start: 01-13-2023 End: 01-13-2023 Emergency department patient visit IVONE Marques Work Phone: [facility] Work Phone: Start: 01-04-2023 ambulatory [facility] Facility:[facility] Start: 01-04-2023 End: 01-04-2023 Emergency department patient visit IVONE Marques Work Phone: [facility] Work Phone: Start: 01-02-[address] RIGOBERTO MONTANO . Facili ty:H1 Start: 12-28-2022 End: 12-29-[address] RIGOBERTO MONTANO . Facility: Start: 12-13-[address] RIGOBERTO MONTANO . Facili ty:H1 Start: 12-08-2022 End: 12-08-2022 ambulatory IVONE Marques Work Phone: [facility] Work Phone: Start: 12-08-2022 End: 12-08-2022 Patient encounter procedure IVONE Marques Work Phone: [facility] [place] Work Phone: Start: 12-04-2022 End: 12-04-[address] RIGOBERTO MONTANO . Facility:H1 Start: 12-01-2022 End: 12-01-2022 ambulatory IVONE Marques Work Phone: [facility] Work Phone: Start: 12-01-2022 End: 12-01-2022 Patient encounter procedure IVONE Marques Work Phone: [facility] [place] Work Phone: Start: 11-30-2022 End: 11-30-2022 Emergency department patient visit IVONE Marques Work Phone: [facility] Work Phone: Start: 10-04-[address] RIGOBERTO MONTANO . Facili ty:H1 Start: 09-21-2022 End: 09-21-2022 Emergency department patient visit IVONE Marques Work Phone: [facility] Start: 09-13-2022 End: 09-13-2022 Emergency department patient visit IVONE Marques Work Phone: [facility] Start: 08-15-2022 End: 08-15-2022 Patient encounter procedure IVONE Marques Work Phone: [facility] [place] Start: 08-03-2022 End: 08-03-2022 Emergency department patient visit IVONE Marques Work Phone: [facility] Start: 07-21-2022 End: 07-21-2022 Patient encounter procedure IVONE Marques Work Phone: [facility] Start: 07-09-2022 End: 07-09-2022 Patient encounter procedure Eulalia Fuentes DPM Work Phone: Orthopaedics Comment on above: Pain in both feet (P rimary Dx); Hyperkeratosis; Neuritis of left lower extremity; Neuralgia of left lower extremity; History of foot surgery; Diabetes mellitus type 2 with neurological manifestations (HCC); Chronic pain of left ankle; Acquired dysmorphic toenail; Difficulty walking Start: 06-29-2022 End: 06-29-2022 Emergency department patient visit IVONE Marques Work Phone: [facility]gency [facility] Start: 06-15-[address] RIGOBERTO MONTANO . Facili ty:H1 Start: 06-15-2022 End: 06-15-2022 Patient encounter procedure IVONE Marques Work Phone: [facility] Start: 05-26-2022 End: 05-26-2022 Emergency department patient visit IVONE Marques Work Phone: [facility]gency [facility] Start: 05-21-2022 End: 05-21-2022 Admission to same day surgery center IVONE Marques Work Phone: [facility] Start: 05-17-2022 End: 05-17-2022 Patient encounter procedure IVONE Marquse Work Phone: [facility]-Pre-Surgical Testing Start: 05-11-2022 End: 05-11-2022 Patient encounter procedure IVONE Marques Work Phone: [facility] Start: 04-30-2022 End: 04-30-2022 Patient encounter procedure Eulalia Fuentes DPM Work Phone: Orthopaedics Comment on above: Hyperkeratosis (Prim conor Dx); Neuritis of left lower extremity; Neuralgia of left lower extremity; History of foot surgery; Diabetes mellitus type 2 with neurological manifestations (HCC) Start: 03-17-2022 End: 03-17-2022 Patient encounter procedure [facility] Start: 03-08-2022 End: 03-08-2022 Emergency department patient visit [facility] Start: 02-23-2022 Telephone encounter Eulalia Fuentes DPMyles Work Phone: [address] [place] [address] Comment on above: Patient Question Start: 02-20-2022 End: 02-20-2022 Emergency department patient visit [facility] Start: 01-09-2022 End: 01-10-2022 Emergency department patient visit [facility] Preoperative state Ga mathews Work Phone: -[facility] 250 DO Work Phone: Procedures Date Procedure Procedure Detail Performing Clinician Start: 04-24-2024 Pelvic echography PHYSI JARED NO FAMILY Start: 04-24-2024 Transvaginal echography PHYSICIAN NO FAMILY Start: 01-25-2024 Pelvic echography PHYSI JARED NO FAMILY Start: 11-20-2023 Screening mammograph y of bilateral breasts PA-Johanna Marques Work Phone: Start: 10-23-2023 CT of abdomen and pe lvis without contrast PA-Johanna Marques Work Phone: Start: 05-23-2023 Plain X-ray of bilat eral femurs PA-Jhoanna Marques Work Phone: Start: 02-21-2023 Echocardiography Ga Marques Work Phone: Start: 01-13-2023 Plain chest X-ray CORIE-Johanna Marques Work Phone: Start: 12-08-2022 Pelvic echography PA-Johanna Marques Work Phone: Start: 11-30-2022 Plain X-ray of left hand PA-Johanna Marques Work Phone: Start: 09-21-2022 Plain chest X-ray PA-C Ga Marques Work Phone: Start: 09-13-2022 Plain X-ray of left shoulder PA-Johanna Marques Work Phone: Start: 06-29-2022 Plain X-ray of left wrist PA-Johanna Marques Work Phone: Start: 05-21-2022 OR Wound Debridement/I&D/Hydradenit is (Right) IVONE Marques Work Phone: Start: 03-08-2022 X-ray of lumbar spin e, four or more views Start: 11-01-2021 H/O: tubal ligation Tubal liga tion status Eulalia Fuentes DPM Work Phone: Excision of neoplasm Ga Marques Work Phone: Ligation of fallopian tube T homaspencer Rice Shelli Work Phone: Operation on gallbladder Tho sandra Rice Shelli Work Phone: Operative procedure on foot Ga Marques Work Phone: Procedure on abdomen Ga Marques Work Phone: Urine culture IVONE Storey Work Phone: NEGATED: Highlighted row has not occurred! Colonoscopy Ga Marques Work Phone: Plan of Treatment Date Care Activity Detail Author Start: 2033 Zoster Vaccines (1 o f 2) Zoster Vaccines (1 of 2) [facility] Start: 02-08-2032 DTaP/Tdap/Td Vaccine s (2 - Td or Tdap) DTaP/Tdap/Td Vaccines (2 - Td or Tdap) [facility] Start: 02-08-2032 Urine microalbumin profile DTaP,Tdap,Td Vaccine (2 - Td or Tdap) [facility] Start: 07-26-2024 Influenza vaccination C [place] Start: 07-13-2024 End: 07-13-2024 Patient encounter procedure Orthopaedics Comment on above: Post op 12 wks left foot, SX 05/01/24 Start: 07-06-2024 End: 07-06-2024 Patient encounter procedure 07/06/2024 10:00 AM EDT Office Visit [facility] [address] [facility] [address] [place] [address] Krystal Koehler MD [address] [facility] [address] [place] [address] [facility] Start: 06-29-2024 End: 06-29-2024 Patient encounter procedure 06/29/2024 1:15 PM EDT Office Visit Orthopaedics [address] [place] [address] Eulalia Fuentes DPM [address] [facility] [place] [address] Post Op 12 wks Left foot Sx 04/10/24 Orthopaedics Comment on above: Post Op 12 wks Left foot Sx 04/10/24 Start: 06-19-2024 Hemoglobin A1c measurement [facility] Start: 06-17-2024 End: 06-17-2024 Patient encounter procedure 06/17/2024 9:45 AM EDT Office Visit Orthopaedics [address] [facility] [place] [address] Eulalia Fuentes DPM [address] [place] [address] Post op 6 wks left foot, SX 05/01/24 Orthopaedics Comment on above: Post op 6 wks left f oot, SX 05/01/24 Start: 06-08-2024 End: 06-08-2024 Patient encounter procedure 06/08/2024 11:30 AM EDT Office Visit Orthopaedics [address] [facility] [place] [address] Eulalia Fuentes DPM [address] [place] [address] Post op 6 wks left foot, SX 05/01/24 Orthopaedics Comment on above: Post op 6 wks left f oot, SX 05/01/24 Start: 06-08-2024 End: 06-08-2024 ambulatory 06/08/2024 8:15 AM EDT [facility] Orthopaedics [address] [facility] [place] [address] Eulalia Fuentes DPM [address] [facility] [place] [address] Post op 6 wks left foot, SX 05/01/24 Orthopaedics Comment on above: Post op 6 wks left f oot, SX 05/01/24 Start: 06-08-2024 End: 06-08-2024 Patient encounter procedure 06/08/2024 8:15 AM EDT Office Visit Orthopaedics [address] [place] [address] Eulalia Fuentes DPM [address] [place] [address] Post op 6 wks left foot, SX 05/01/24 Orthopaedics Comment on above: Post op 6 wks left f oot, SX 05/01/24 Start: 05-21-2024 End: 05-21-2024 Patient encounter procedure 05/21/2024 1:15 PM EDT Office Visit Orthopaedics [address] [place] [address] Eulalia Fuentes DPM [address] [place] [address] Post Op 6 wks Left foot Sx 04/10/24 Orthopaedics Comment on above: Post Op 6 wks Left f oot Sx 04/10/24 Start: 05-20-2024 End: 05-20-2024 Patient encounter procedure 05/20/2024 11:30 AM EDT Office Visit Orthopaedics [address] [place] [address] Eulalia Fuentes DPM [address] [place] [address] Post op 3 wks left foot, SX 05/01/24 Orthopaedics Comment on above: Post op 3 wks left f oot, SX 05/01/24 Start: 05-07-2024 End: 05-07-2024 Patient encounter procedure 05/07/2024 10:15 AM EDT Office Visit Orthopaedics [address] [place] [address] Eulalia Fuentes DPM [address] [place] [address] Post op left foot, SX 05/01/24 Orthopaedics Comment on above: Post op left foot, S X 05/01/24 Start: 05-04-2024 End: 05-04-2024 Patient encounter procedure 05/04/2024 1:15 PM EDT Office Visit [facility]opaedics [address] [facility] [place] [address] Eulalia Fuentes DPM [address] [place] [address] Post Op 3 wks Left foot Sx 04/10/24 Orthopaedics Comment on above: Post Op 3 wks Left f oot Sx 04/10/24 Start: 05-01-2024 End: 05-01-2024 Admission to same day surgery center 05/01/2024 7:30 AM EDT - 05/01/2024 9:10 AM EDT Surgery Ambulatory Surgery [address] [facility] [place] [address] Eulalia Fuentes DPM [address] [place] [address] EXCISION BENIGN CYST/MASS LESION LOWER EXTREMITY < 0.5CM Ambulatory Surgery Comment on above: EXCISION BENIGN CYST /MASS LESION LOWER EXTREMITY < 0.5CM Start: 05-01-2024 End: 05-01-2024 Exc b9 lesion mrgn xcp sk tg t/a/l 0.5 cm/< EXCISION BENIGN CYST/MASS LESION LOWER EXTREMITY < 0.5CM History of foot surgery DM (diabetes mellitus), 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 05/01/2024 7:30 AM EDT [facility] Start: 05-01-2024 Subsequent hospital visit by physician 05/01/2024 7:30 AM EDT Hospital Encounter Ambulatory Surgery [address] [place] [address] Eulalia Fuentes DPM [address] [place] [address] History of foot surgery [Z98.890] Ambulatory Surgery Comment on above: History of foot surg dave [Z98.890] Start: 05-01-2024 End: 05-01-2024 Patient encounter procedure 05/01/2024 7:00 AM EDT Office Visit [facility] Testing [address] [facility] [address] Ruby- update Pre Admission Testing Comment on above: Ruby- update Start: 04-27-2024 End: 04-27-2024 Patient encounter procedure 04/27/2024 11:45 AM EDT Office Visit Orthopaedics [address] [place] [address] Eulalia Fuentes DPM [address] [place] [address] Pre-op per JOSSY Castellon on 05/01/24 Orthopaedics Comment on above: Pre-op per JOSSY Castellon on 05/01/24 Start: 04-15-2024 End: 04-15-2024 Patient encounter procedure 04/15/2024 1:30 PM EDT Office Visit Orthopaedics [address] [place] [address] Eulalia Fuentes DPM [address] [place] [address] Post Op Left foot Sx 04/10/24 Orthopaedics Comment on above: Post Op Left foot Sx 04/10/24 Start: 04-10-2024 End: 04-10-2024 Admission to same day surgery center 04/10/2024 2:20 PM EDT - 04/10/2024 4:05 PM EDT Surgery Ambulatory Surgery [address] [place] [address] Eulalia Fuentes DPM [address] [place] [address] EXCISION BENIGN CYST/MASS LESION LOWER EXTREMITY < 0.5CM Ambulatory Surgery Comment on above: EXCISION BENIGN CYST /MASS LESION LOWER EXTREMITY < 0.5CM Start: 04-10-2024 End: 04-10-2024 Exc b9 lesion mrgn xcp sk tg t/a/l 0.5 cm/< EXCISION BENIGN CYST/MASS LESION LOWER EXTREMITY < 0.5CM History of foot surgery DM (diabetes mellitus), 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 04/10/2024 2:20 PM EDT [facility] Start: 04-10-2024 Subsequent hospital visit by physician 04/10/2024 2:20 PM EDT Hospital Encounter Ambulatory Surgery [address] [facility] [place] [address] Eulalia Fuentes DPM [address] [facility] [place] [address] History of foot surgery [Z98.890] Ambulatory Surgery Comment on above: History of foot surg dave [Z98.890] Start: 03-23-2024 End: 03-23-2025 Lipid 1996 panel - Serum or Plasma Lipid Panel Lab Routine Diabetes mellitus type II, non insulin dependent (Multi) Hyperlipidemia, unspecified hyperlipidemia type Expected: 03/23/2024 (Approximate), Expires: 03/23/2025 [facility] Service Area Work Phone: Comment on above: Expected: 03/23/2024 (Approximate), Expires: 03/23/2025 Start: 03-20-2024 End: 03-20-2024 Anesthesia consultation 03/20/2024 10:20 AM EDT PAT Pre Anesthesia [address] [facility] [place] [address] 2, Pacc [place] [address] [facility] [place] [address] Pacc Left foot Sx 04/10/24 Pre Anesthesia Comment on above: Pacc Left foot Sx Start: 11-25-2023 Behavioral Health Screening Behavioral Health Screening [facility] Start: 11-25-2023 Depression Assessment Depression Ass essment [facility] Start: 07-26-2023 COVID-19 Vaccine ( season) COVID-19 Vaccine () [facility] Start: 07-26-2023 Covid-19 Vaccine ( season) Covid-19 Vaccine ( season) [facility] Start: 07-26-2023 Influenza vaccination Influenza Vacc ine (#1) [facility] Start: 05-23-2023 Plain X-ray of bilateral femurs XR femur BI [facility] Start: 05-23-2023 XR Femur - bilateral Views [facility] Start: 2023 Mammography Mammogram Screening [facility] Start: 2023 Screening for malignant neoplasm of breast [facility] Start: 04-15-2023 FUV, Provider: Krystal Koehler, Status: Pen, Time: 11:00 AM FUV, Provider: Krystal Koehler, Status: Pen, Time: 11:00 AM -[facility] 250 DO Work Phone: Start: 04-12-2023 Evaluation and management of inpatient Inpatient Encounter Facility: Start: 04-09-2023 ambulatory Ambulatory Facility:H 1 Start: 03-11-2023 FUV, Provider: Krystal Koehler, Status: Pen, Time: 11:00 AM FUV, Provider: Krystal Koehler, Status: Pen, Time: 11:00 AM -[facility] 250 DO Work Phone: Start: 03-04-2023 REST ONLY, Provider: TITUS [facility]VI NUCLEAR 01,[id number], Status: Pen, Time: 8:30 AM REST ONLY, Provider: [facility] NUCLEAR 01,[id number], Status: Pen, Time: 8:30 AM MP-[facility] 250 DO Work Phone: Start: 03-01-2023 STRESSNUC2, Provider : TITUS [facility] NUCLEAR 01,[id number], Status: Pen, Time: 10:00 AM STRESSNUC2, Provider: [facility] NUCLEAR 01,[id number], Status: Pen, Time: 10:00 AM [facility] 250 DO Work Phone: Start: 02-21-2023 ECHO, Provider: T[facility] ULTRASOUND 01,[id number], Status: Pen, Time: 2:30 PM ECHO, Provider: T[facility] ULTRASOUND 01,[id number], Status: Pen, Time: 2:30 PM -[facility] 250 DO Work Phone: Start: 01-13-2023 Plain chest X-ray XR chest 1V portab le [facility] Start: 01-13-2023 XR Chest Single view Fi [facility] Start: 11-30-2022 Plain X-ray of left hand XR hand LT min 3V* [facility] Start: 11-30-2022 XR Hand - left GE 3 Views [facility] Start: 11-25-2022 Depression Assessment Depression Ass essment [facility] Start: 07-26-2022 Influenza vaccination [facility] [place] Start: 07-21-2022 End: 07-21-2022 Patient encounter procedure Departed Clinical [facility] [place] Start: 07-10-2022 COVID-19 VACCINE (3 - Booster for Pfizer series) COVID-19 VACCINE (3 - Booster for Pfizer series) [facility] Start: 05-21-2022 [facility] Work Phone: Start: 05-21-2022 [facility] Work Phone: Start: 2013 HPV TESTING HPV TESTING [facility] Start: 2013 Screening for malignant neoplasm of cervix HPV Testing [facility] Start: 2004 PAP TESTING PAP TESTING [facility] Start: 2004 Screening for malignant neoplasm of cervix [facility] Start: 2002 HEPATITIS B (1 of 3 - Risk 3-dose series) HEPATITIS B (1 of 3 - Risk 3-dose series) [facility] Start: 2002 Hepatitis B Vaccine (1 of 3 - 19+ 3-dose series) Hepatitis B Vaccine (1 of 3 - 19+ 3-dose series) [facility] Start: 2002 Hepatitis B Vaccines (1 of 3 - 19+ 3-dose series) Hepatitis B Vaccines (1 of 3 - 19+ 3-dose series) [facility] Start: 2002 Urine microalbumin profile DTAP,TDAP,TD (1 - Tdap) [facility] Start: 2002 Urine screening for protein Diabetes: Urine Protein Screening [facility] Start: 2001 ANNUAL PCP TEAM CHRONIC DISEASE VISIT ANNUAL PCP TEAM CHRONIC DISEASE VISIT [facility] Start: 2001 Anxiety Screening Anxiety Screening [facility] Start: 2001 Depression Screening Depression Scre ening [facility] Start: 2001 Hepatitis B surface antibody level LDL CHOLESTEROL [facility] Start: 2001 HEPATITIS C [facility] Start: 2001 Hepatitis C screening Hepatitis C [facility] Start: 2001 HIV SCREENING HIV SCREENING [facility] Start: 2001 HIV screening HIV Screening [facility] Start: 2001 SPIROMETRY SPIROMETRY [facility] Start: 1999 ONE PNEUMOVAX PRIOR TO AGE 65 ONE PNEUMOVAX PRIOR TO AGE 65 [facility] Start: 1996 Varicella vaccination Varicell a Vaccines (1 of 2 - 13+ 2-dose series) [facility] Start: 1995 Adult depression screening assessment DEPRESSION SCREENING [facility] Start: 1993 3 comp foot exam completed DIABETIC FOOT EXAM [facility] Start: 1993 Diabetic foot examination [facility] Start: 1993 Glaucoma screening [facility] Start: 1993 Hepatitis B screening URINE AL BUMIN:CREATININE RATIO [facility] Start: 1993 Hepatitis C antibody , confirmatory test DILATED RETINAL EXAM [facility] Start: 1989 PNEUMOCOCCAL (1 - PCV) PNEUMOCOCCAL (1 - PCV) [facility] Start: 1989 Pneumococcal vaccination [facility] Start: 1989 Pneumococcal Vaccine : Pediatrics (0 to 5 Years) and At-Risk Patients (6 to 64 Years) (1 of 2 - PCV) Pneumococcal Vaccine: Pediatrics (0 to 5 Years) and At-Risk Patients (6 to 64 Years) (1 of 2 - PCV) [facility] Start: 1988 Hemoglobin A1c measurement HbA1C [facility] Start: 1988 Hemoglobin A1c/Hemoglobin.total in Blood HBA1C [facility] Start: 1984 MMR Vaccines (1 of 1 - Standard series) MMR Vaccines (1 of 1 - Standard series) [facility] Start: 1983 HEPATITIS B (1 of 3 - 3-dose series) HEPATITIS B (1 of 3 - 3-dose series) [facility] Start: 1983 Hepatitis B Vaccine (1 of 3 - 3-dose series) Hepatitis B Vaccine (1 of 3 - 3-dose series) [facility] Start: 1983 HIV screening HIV Screening [facility] Start: 1983 Lipid panel Lipid Panel [facility] Start: 1983 [facility] Bacteria identified in Urine by Culture [facility] Glucose measurement estimated from glycated hemoglobin [facility] Work Phone: Hemoglobin A1c/Hemoglobin.total in Blood [facility] Work Phone: Patient Education [facility] Work Phone: Patient referral [facility] Work Phone: [facility] Immunizations Immunization Date Immunization Notes Care Provider Fa cili 02-07-2022 Comirnaty 30 MCG/0.3 ML Intramuscular Suspension Ga Marques Work [facility] DO Work Phone: 02-07-2022 tetanus toxoid, redu elmer diphtheria toxoid, and acellular pertussis vaccine, adsorbed Ga Mraques Work Phone: [facility] Work Phone: 01-17-2022 Comirnaty 30 MCG/0.3 ML Intramuscular Suspension Ga Marques Work Phone: [facility] DO Work Phone: 02-07-2021 COVID-19 mRNA, Comir janine (Pfizer) IVONE Marques Work Phone: [facility] 01-17-2021 COVID-19 mRNA, Comir janine (Pfizer) IVONE Marques Work Phone: [facility] Payers Date Payer Category Payer Unknown [id number] 2021 Unknown 2020 Medicaid [employer] [id number] 2020-Present [phone] [address] [place] [address] Medicaid [id number] 2020 Medicaid [id number]. [id number] 1983 Unknown [id number] 2.16840.1.683948.3.579.2.356 1983 Unknown [id number] 2.16840.1.638101.3.579.2.356 1983 Unknown [id number] 2.16840.1.578118.3.579.2.356 1983 Unknown [id number] 2.840.1.295505.3.579.2.593 1983 Unknown [id number] 2.840.1.141560.3.579.2.593 1983 Unknown [id number] 2.840.1.719374.3.579.2.593 1983 Unknown [id number] 2.16840.1.029033.3.579.2.593 1983 Unknown [id number] 2.840.1.515873.3.579.2.593 1983 Unknown [id number] 2.16840.1.696171.3.579.2.593 1983 Unknown [id number] 2.16840.1.566651.3.579.2.593 1983 Unknown [id number] 2.16840.1.852748.3.579.2.593 1983 Unknown [id number] 2.16840.1.825501.3.579.2.593 1983 Unknown [id number] 2.16840.1.191032.3.579.2.593 1983 Unknown [id number] 2.16.840.1.280544.3.579.2.593 1983 Unknown [id number] 2.16.840.1.484781.3.579.2.1068 1983 Unknown [id number] 2.16.840.1.268547.3.579.2.8 1983 Unknown [id number] 2.16.840.1.380895.3.579.2.1068 1983 Unknown [id number] 2.16840.1.657235.3.579.2.1068 1983 Unknown [id number] 2.16840.1.046205.3.579.2.9 1983 Unknown [id number] 2.840.1.049279.3.579.2.9 1983 Unknown [id number] 2.16840.1.285352.3.579.2.9 1983 Unknown [id number] 2.16840.1.352962.3.579.2.9 1983 Unknown [id number] 2.16840.1.343820.3.579.2.4 1983 Unknown [id number] 2.840.1.944577.3.579.2.1244 1959 Medicaid [id number] Self-pay [id number] 1959 Unknown [id number] Unknown [id number] 2.16840.1.566522.3.579.2.531 Unknown [id number] 2.840.1.342096.3.579.2.531 Unknown [id number] 2.16.840.1.766303.3.579.2.531 Unknown [id number] 2.16.840.1.104368.3.579.2.531 Unknown [id number] 2.16.840.1.261899.3.579.2.531 Unknown [id number] 2.16.840.1.110564.3.579.2.531 Unknown [id number] 2.16.840.1.216916.3.579.2.531 Unknown [id number] 2.16.840.1.613449.3.579.2.531 Unknown [id number] 2.16.840.1.223778.3.579.2.531 Social History Date Type Detail Facility Start: 02-20-2022 End: 04-05-2024 Tobacco smoking status DCIS Smoker (finding) [facility] Start: 1985 Sex Assigned At Female F [facility] Tobacco smoking stat us [facility] Tobacco smoking consumption unknown [facility] Start: 1985 Sex Assigned At Not on file [facility] [place] Start: 02-02-2022 End: 03-23-2024 Exposure to SARS-CoV-2 (event) Not sure [facility] Start: 10-25-2023 End: 11-01-2023 No alcohol use No alcohol use [facility] Comment on above: 11-25; Start: 10-25-2023 End: 11-01-2023 Patient Health Questionnaire 2 item (PHQ-2) [Reported] [facility] Adult Depression Screening Assessment 3 [facility] Start: 11-25-1999 End: 03-20-2024 Tobacco smoking status DCIS Smokes tobacco daily [facility] Start: 11-25-1999 History of tobacco use Cigarette Smo ker [facility] Start: 03-20-2024 Tobacco use and exposure Smoke less tobacco non-user [facility] Start: 03-20-2024 Alcohol intake Ex-drinker (finding) [facility] Start: 03-20-2024 Tobacco Comment Patient states she was formerly smoking 6 packs per day until 2020. Has cut down to 1.5-2 packs per day now. 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 MAXWELL T TWICE DAILY [id number] Start: 10-16-2021 Comment on above: twice daily. TEST TW ICE DAILY Goals Date Patient Goal Desired Activity /State Clinical Notes 03-06-2022 to 07-10-2024 Telephone Encounter - Heavenly Dao - 07/10/2024 4:17 PM EDTTelephone Encounter - Heavenly Dao - 07/10/2024 4:17 PM EDTCEulalia benítez DPM - 06/23/2024 1:45 PM EDTPatient Instructions Note Date & Type Note Facility 07-10-2024 Telephone encounter Note Type of form: Short-term Disability Form received via fax When form is completed, Form has been forwarded to Dr. Fuentes's mail slot at [employer] [facility] check-out Heavenlyshanta Grubbs [facility] 07-10-2024 Miscellaneous Notes Type of form: Short-term Disability Form received via fax When form is completed, Form has been forwarded to Dr. Fuentes's mail slot at [employer] [facility] check-out Heavenly Dobson Grubbs documented in this encounter [facility] 06-23-2024 Note HNO ID: [id number] Author: EULALIA FUENTES DPM Service: ? Author Type: Physician Type: Progress Notes Filed: 06/23/2024 13:47 Note Text: This 39 year old female presents today for post-op visit. Gary Vigil Date of service: June 23, 2024 Patient presents with: Left Foot - Established Patient, Post Op Pain Scales: Verbal (Numeric Rating or Visual Analog Scale) Pain Level: 10 Pain Location: Foot-Left Description: Aching, Cramping, Cutting, Incision, Numbness, Pressure, Sharp, Shooting, Sore, Spasm, Stabbing, Tenderness, Throbbing, Tightness, Tingling Duration Amount of Time: 6 Duration Units: Weeks (post op) Frequency: Continuous Intervention/Comfort measure: Medication, Reposition, Relaxation Comments: She is here for a 6 week post op of the left foot. Surgery performed on 05/01/24. HPI: Patient presents for postop follow up. Denies nausea, vomiting, fever, chills, sweats, shortness of breath. No new complaints. Pain controlled. Some difficulty walking O: Pleasant No acute distress Neuo Exam: Normal neurological exam, gross epicritic sensation intact Vascular Exam: Normal vascular exam, palpable pluses with brisk capillary fill Calf soft non tender, no evidence of Deep Venous Thrombosis. Hyperkeratosis plantar foot and medial great toe Surgical incisions healed A: Progressing well post operative Hyperkeratosis Post operative pain P: In order to perform a complete physical exam, hyperkeratosis removed with #15 scalpel blade was performed. This incidental service is integral to the evaluation and management visit in order to appropriately manage and treat the patient (for their complaint or for this visit). Continue protective measures. Return to the office as scheduled or sooner should problems arise. Call if any problems arise prior to next visit. Dispensed silipos silicone digital pad for great toe Recommend emollients CeraVe topical cream emollient twice daily or equivalent I gave out my personal mobile telephone number [phone] to call at anytime if needed. Instructed that if I am not available should contact the application security specialist shank skinner or go to the emergency room. Social : daughter is getting Aug 21 Eulalia Fuentes DPM [facility] 06-23-2024 History of Presen t illness Narrative This 39 year old female presents today for post-op visit. Gary Vigil Date of service: June 23, 2024 Patient presents with: Left Foot - Established Patient, Post Op Pain Scales: Verbal (Numeric Rating or Visual Analog Scale) Pain Level: 10 Pain Location: Foot-Left Description: Aching, Cramping, Cutting, Incision, Numbness, Pressure, Sharp, Shooting, Sore, Spasm, Stabbing, Tenderness, Throbbing, Tightness, Tingling Duration Amount of Time: 6 Duration Units: Weeks (post op) Frequency: Continuous Intervention/Comfort measure: Medication, Reposition, Relaxation Comments: She is here for a 6 week post op of the left foot. Surgery performed on 05/01/24. HPI: Patient presents for postop follow up. Denies nausea, vomiting, fever, chills, sweats, shortness of breath. No new complaints. Pain controlled. Some difficulty walking O: Pleasant No acute distress Neuo Exam: Normal neurological exam, gross epicritic sensation intact Vascular Exam: Normal vascular exam, palpable pluses with brisk capillary fill Calf soft non tender, no evidence of Deep Venous Thrombosis. Hyperkeratosis plantar foot and medial great toe Surgical incisions healed A: Progressing well post operative Hyperkeratosis Post operative pain P: In order to perform a complete physical exam, hyperkeratosis removed with #15 scalpel blade was performed. This incidental service is integral to the evaluation and management visit in order to appropriately manage and treat the patient (for their complaint or for this visit). Continue protective measures. Return to the office as scheduled or sooner should problems arise. Call if any problems arise prior to next visit. Dispensed silipos silicone digital pad for great toe Recommend emollients CeraVe topical cream emollient twice daily or equivalent I gave out my personal mobile telephone number [phone] to call at anytime if needed. Instructed that if I am not available should contact the application security specialist shank skinner or go to the emergency room. Social : daughter is getting Aug 21 Eulalia Fuentes DPM documented in this encounter [facility] 06-08-2024 Note HNO ID: [id number] Author: EULALIA FUENTES DPM Service: ? Author Type: Physician Type: Progress Notes Filed: 06/08/2024 15:48 Note Text: Technical difficulty with virtual visit today. Virtual visit converted to telephone call. Follow up call to patient Still having symptoms plantar foot at site of surgery She will come in for in person visit as soon as possible. Eulalia Fuentes DPM [facility] 06-08-2024 History of Presen t illness Narrative Technical difficulty with virtual visit today. Virtual visit converted to telephone call. Follow up call to patient Still having symptoms plantar foot at site of surgery She will come in for in person visit as soon as possible. Eulalia Fuentes DPM documented in this encounter [facility] 06-05-2024 Telephone encounter Note Called and left a voicemail switched appointment to virtual. [facility] 06-05-2024 Miscellaneous Notes Called and left a voicemail switched appointment to virtual. -Pt Verified by Name and Date of -pt calling to report has 'knot' under left pinkie toe that is sore to touch. Pt just noticed recently. -pt has OV 06/08/24 and will discuss with provider. -pt also thought she was able to do VV.--please advise when pt seen on 06/08/24. documented in this encounter [facility] 06-05-2024 Telephone encounter Note -Pt Verified by Name and Date of -pt calling to report has 'knot' under left pinkie toe that is sore to touch. Pt just noticed recently. -pt has OV 06/08/24 and will discuss with provider. -pt also thought she was able to do VV.--please advise when pt seen on 06/08/24. [facility] 05-20-2024 Note HNO ID: [id number] Author: EULALIA FUENTES DPM Service: ? Author Type: Physician Type: Progress Notes Filed: 05/20/2024 16:15 Note Text: This 38 year old female presents today for post-op visit. Gary Vigil Date of service: May 20, 2024 Patient presents with: Left Foot - Established Patient, Post Op Pain Scales: Verbal (Numeric Rating or Visual Analog Scale) Pain Level: 10 Pain Location: Foot-Left Description: Aching, Cramping, Dressing Change, Incision, Itching, Numbness, Pressure, Sharp, Shooting, Sore, Stabbing, Throbbing, Tightness, Wound Duration Amount of Time: 3 Duration Units: Weeks Frequency: Continuous Intervention/Comfort measure: Medication, Pillow support Comments: She is here for a 3 week post op of the left foot. Surgery performed on 05/01/24. HPI: Patient presents for postop follow up. Denies nausea, vomiting, fever, chills, sweats, shortness of breath. No new complaints. Difficulty walking due to plantar incisions Post operative pain O: Pleasant No acute distress Neuo Exam: Normal neurological exam, gross epicritic sensation intact Vascular Exam: Normal vascular exam, palpable pluses with brisk capillary fill Calf soft non tender, no evidence of Deep Venous Thrombosis. Surgical site without signs of infection, no dehisence. Incisions well coapted. No pain out of proportion. Some hypertrophic skin A: Progressing well post op P: remaining sutures removed. Continue protective measures. Return to the office as scheduled or sooner should problems arise. Call if any problems arise prior to next visit. Rx Bactroban (mupirocin) topical ointment for next few weeks to reduce belinda Staphylococcus aureus colonization inflammation , reduce scar I gave out my personal mobile telephone number [phone] to call at anytime if needed. Instructed that if I am not available should contact the application security specialist shank skinner or go to the emergency room. Recommend off work for now due to delayed healing, post operative pain Diabetes related delayed healing Eulalia Fuentes DPM [facility] 05-20-2024 History of Presen t illness Narrative This 38 year old female presents today for post-op visit. Gary Vigil Date of service: May 20, 2024 Patient presents with: Left Foot - Established Patient, Post Op Pain Scales: Verbal (Numeric Rating or Visual Analog Scale) Pain Level: 10 Pain Location: Foot-Left Description: Aching, Cramping, Dressing Change, Incision, Itching, Numbness, Pressure, Sharp, Shooting, Sore, Stabbing, Throbbing, Tightness, Wound Duration Amount of Time: 3 Duration Units: Weeks Frequency: Continuous Intervention/Comfort measure: Medication, Pillow support Comments: She is here for a 3 week post op of the left foot. Surgery performed on 05/01/24. HPI: Patient presents for postop follow up. Denies nausea, vomiting, fever, chills, sweats, shortness of breath. No new complaints. Difficulty walking due to plantar incisions Post operative pain O: Pleasant No acute distress Neuo Exam: Normal neurological exam, gross epicritic sensation intact Vascular Exam: Normal vascular exam, palpable pluses with brisk capillary fill Calf soft non tender, no evidence of Deep Venous Thrombosis. Surgical site without signs of infection, no dehisence. Incisions well coapted. No pain out of proportion. Some hypertrophic skin A: Progressing well post op P: remaining sutures removed. Continue protective measures. Return to the office as scheduled or sooner should problems arise. Call if any problems arise prior to next visit. Rx Bactroban (mupirocin) topical ointment for next few weeks to reduce belinda Staphylococcus aureus colonization inflammation , reduce scar I gave out my personal mobile telephone number [phone] to call at anytime if needed. Instructed that if I am not available should contact the application security specialist shank skinner or go to the emergency room. Recommend off work for now due to delayed healing, post operative pain Diabetes related delayed healing Eulalia Fuentes DPM documented in this encounter [facility] 05-12-2024 Telephone encounter Note spoke with the patient on the phone and provided guidance and treatment options. Instructed patient to go to the emergency room if symptoms worse and she is schedule to be seen by the provider next week. [facility] 05-12-2024 Miscellaneous Notes spoke with the patient on the phone and provided guidance and treatment options. Instructed patient to go to the emergency room if symptoms worse and she is schedule to be seen by the provider next week. Pt calls -7 foot surgery noted C/o Left foot swelling since 05-07 appt Has elevated all day / every day with some relief and returns after ambulation Hot to touch - great toe and next toe hot to touch Stuck together Toes numb/ tingling since two days ago Pain is throbbing for the past two days Red at stiches- 1.5 area Warm to touch like rest skin Denies fever Called office and office will transfer call to Dr Fuentes Call transferred to ortho to assist with above documented in this encounter [facility] 05-11-2024 Telephone encounter Note Pt calls - foot surgery noted C/o Left foot swelling since 05-07 appt Has elevated all day / every day with some relief and returns after ambulation Hot to touch - great toe and next toe hot to touch Stuck together Toes numb/ tingling since two days ago Pain is throbbing for the past two days Red at stiches- 1.5 area Warm to touch like rest skin Denies fever Called office and office will transfer call to Dr Fuentes Call transferred to ortho to assist with above [facility] 05-07-2024 Note HNO ID: [id number] Author: EULALIA FUENTES DPM Service: ? Author Type: Physician Type: Progress Notes Filed: 05/07/2024 23:01 Note Text: This 38 year old female presents today for post-op visit. Gary Vigil Date of service: May 07, 2024 Patient presents with: Left Foot - Established Patient, Post Op Pain Scales: Verbal (Numeric Rating or Visual Analog Scale) Pain Level: 10 Pain Location: Foot-Left Description: Aching, Incision, Itching, Numbness, Sharp, Shooting, Sore, Stabbing, Throbbing, Tightness, Tingling Duration Amount of Time: 1 Duration Units: Weeks (post op) Frequency: Continuous Intervention/Comfort measure: Pillow support, Medication Comments: She is here for a 1 week post op of the left foot. Surgery performed on 05/01/24. HPI: Patient presents for postop follow up. Denies nausea, vomiting, fever, chills, sweats, shortness of breath. No new complaints. Pain controlled. O: Pleasant No acute distress Neuo Exam: Normal neurological exam, gross epicritic sensation intact Vascular Exam: Normal vascular exam, palpable pluses with brisk capillary fill Calf soft non tender, no evidence of Deep Venous Thrombosis. Surgical site without signs of infection, no dehisence. Incisions well coapted. No pain out of proportion. A: Progressing well post op P: some of the prolene sutures removed. Continue protective measures. Return to the office as scheduled or sooner should problems arise. Call if any problems arise prior to next visit. NWB (Non Weight Bearing) recommended I gave out my personal mobile telephone number [phone] to call at anytime if needed. Instructed that if I am not available should contact the application security specialist shank skinner or go to the emergency room. Eulalia Fuentes DPM [facility] 05-07-2024 History of Presen t illness Narrative This 38 year old female presents today for post-op visit. Gary Vigil Date of service: May 07, 2024 Patient presents with: Left Foot - Established Patient, Post Op Pain Scales: Verbal (Numeric Rating or Visual Analog Scale) Pain Level: 10 Pain Location: Foot-Left Description: Aching, Incision, Itching, Numbness, Sharp, Shooting, Sore, Stabbing, Throbbing, Tightness, Tingling Duration Amount of Time: 1 Duration Units: Weeks (post op) Frequency: Continuous Intervention/Comfort measure: Pillow support, Medication Comments: She is here for a 1 week post op of the left foot. Surgery performed on 05/01/24. HPI: Patient presents for postop follow up. Denies nausea, vomiting, fever, chills, sweats, shortness of breath. No new complaints. Pain controlled. O: Pleasant No acute distress Neuo Exam: Normal neurological exam, gross epicritic sensation intact Vascular Exam: Normal vascular exam, palpable pluses with brisk capillary fill Calf soft non tender, no evidence of Deep Venous Thrombosis. Surgical site without signs of infection, no dehisence. Incisions well coapted. No pain out of proportion. A: Progressing well post op P: some of the prolene sutures removed. Continue protective measures. Return to the office as scheduled or sooner should problems arise. Call if any problems arise prior to next visit. NWB (Non Weight Bearing) recommended I gave out my personal mobile telephone number [phone] to call at anytime if needed. Instructed that if I am not available should contact the application security specialist shank skinner or go to the emergency room. Eulalia Fuentes DPM documented in this encounter [facility] 05-05-2024 Telephone encounter Note Called and spoke with patient new paperwork was suppose to be faxed over to the [place] office yesterday. Informed patient I will be in [place] tomorrow and will keep and eye out for the paperwork to be completed and sent out as soon as possible. Informed her we are allocated 7-10 business days to complete the forms. [facility] 05-05-2024 Miscellaneous Notes Called and spoke with patient new paperwork was suppose to be faxed over to the [place] office yesterday. Informed patient I will be in [place] tomorrow and will keep and eye out for the paperwork to be completed and sent out as soon as possible. Informed her we are allocated 7-10 business days to complete the forms. Nandinistity is calling Eulalia Fuentes DPM today to request [facility] Paperwork to be updated and sent to her employer. Patient states her original surgery was cancelled and needs this done AGUS. Patient states she just had the surgery on 05/01/24. Patient has been identified by name and birthdate. Duration of symptoms: N/A Person calling: self Call patient at: on cell [phone] (home) [phone] (cell) Was an appointment scheduled: No Closing statement: Results or non-symptom based questions: Thank you for calling [facility], your call will be returned within the next business day. Jael Espino Pss documented in this encounter [facility] 05-05-2024 Telephone encounter Note Gary is calling Eulalia Fuentes DPM today to request [facility] Paperwork to be updated and sent to her employer. Patient states her original surgery was cancelled and needs this done AGUS. Patient states she just had the surgery on 05/01/24. Patient has been identified by name and birthdate. Duration of symptoms: N/A Person calling: self Call patient at: on cell [phone] (home) [phone] (cell) Was an appointment scheduled: No Closing statement: Results or non-symptom based questions: Thank you for calling [facility], your call will be returned within the next business day. Jael Espino Pss [facility] 05-01-2024 Note HNO ID: [id number] Author: SEJAL LAI MD Service: Anesthesiology Author Type: Anesthesiologist Type: Anesthesia Procedure Notes Filed: 05/01/2024 13:44 Note Text: ANESTHESIOLOGY PROCEDURE NOTE Airway General Information Procedure Start Time/Medication Administration: 05/01/2024 7:42 AM Procedure End Time: 05/01/2024 7:42 AM Patient location during procedure: OR Staffing Anesthesiologist: Sejal Lai MD FLIGHT OPERATIONS COORDINATOR: Angus Crenshaw APRN.FLIGHT OPERATIONS COORDINATOR Performed by: DERICK Indications and Patient Condition Indications for airway management: anesthesia Preoxygenated: yes anesthesia circuit Patient position: sniffing Method: asleep Difficult Mask: No Final Airway Details Final airway type: supraglottic airway Number of attempts at approach: 1 Final Supraglottic Airway: IGEL Size 4 Seal Adequate: yes Airway not difficult SIGNATURE: Angus Crenshaw APRN.CRNA PATIENT NAME: Gary Vigil DATE: May 01, 2024 TIME: 7:45 AM CSN: [id number] [facility] 04-27-2024 Note HNO ID: [id number] Author: EULALIA FUENTES DPM Service: ? Author Type: Physician Type: Progress Notes Filed: 04/27/2024 14:17 Note Text: Patient Visit for Gary Vigil 1985 38 year old female Date of Service: April 27, 2024 SUBJECTIVE: Chief Complaint: Patient presents with: Left Foot - Established Patient, Pre-Op Visit /Pain Scales: Verbal (Numeric Rating or Visual Analog Scale) Pain Level: 9 Pain Location: Foot-Left Description: Aching, Pressure, Sharp, Sore, Stabbing, Stabbing/Not Incision Duration Amount of Time: 8 Duration Units: Weeks Frequency: Continuous Intervention/Comfort measure: Medication, Massage, Pillow support Comments: She is here for a pre op of the left foot surgery. 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 No past medical history on file. Current Outpatient Medications Medication Sig dulaglutide (TRULICITY) 1.5 mg/0.5 mL pen injector Inject 1.5 mg subcutaneously. spironolactone (ALDACTONE) 50 mg tablet Take 50 mg by mouth. atorvastatin calcium (ATORVASTATIN ORAL) Take by mouth once daily. sitagliptin phosphate (JANUVIA ORAL) Take by mouth once daily. mupirocin (BACTROBAN) 2 % ointment Apply 1 application to affected area two times a day. acetaminophen (TYLENOL) 500 mg tablet take 2 tablets by mouth every 8 hours if needed albuterol HFA (PROVENTIL HFA, VENTOLIN HFA) 90 mcg/actuation inhaler Inhale 2 Puffs as instructed every 6 hours as needed. amitriptyline (ELAVIL) 50 mg tablet Take 50 mg by mouth daily at bedtime. Green Is Good ULTRA TEST test strip twice daily. TEST TWICE DAILY VRAYLAR 4.5 mg capsule take 1 take by mouth once daily citalopram (CELEXA) 20 mg tablet Take 20 mg by mouth daily at bedtime. doxycycline (VIBRA-TABS) 100 mg tablet take 1 tablet by mouth twice a day for 10 days etodolac (LODINE-XL) 500 mg 24 hr tablet take 1 tablet by mouth once daily NEEDED FOR PAIN with food FLOVENT HFA 110 mcg/actuation inhaler inhale 2 puffs by mouth and INTO THE LUNGS twice a day fluticasone (FLONASE) 50 mcg/actuation nasal spray instill 1 spray into each nostril twice a day furosemide (LASIX) 40 mg tablet take 1 tablet by mouth once daily if needed for SWELLING AJOVY AUTOINJECTOR 225 mg/1.5 mL auto-injector inject subcutaneously as directed loratadine (CLARITIN) 10 mg tablet Take 10 mg by mouth once daily. lidocaine (SALONPAS) 4 % patch Apply 1 Patch as directed q 24 HR. montelukast (SINGULAIR) 10 mg tablet Take 10 mg by mouth. omeprazole (PRILOSEC) 20 mg capsule Take 20 mg by mouth once daily. potassium chloride ER (K-DUR, KLOR-CON) 20 mEq tablet Take 20 mEq by mouth. prazosin (MINIPRESS) 5 mg cap Take 5 mg by mouth once daily. rizatriptan (MAXALT) 5 mg tablet take 1 tablet by mouth AT ONSET OF HEADACHE MAY TAKE A SECOND TAB... (REFER TO PRESCRIPTION NOTES). SUMAtriptan (IMITREX) 100 mg tablet take 1 tablet by mouth if needed to ABORT MIGRAINE once daily 30 DAY SUPPLY traZODone HCl 300 mg tablet Take 300 mg by mouth once daily. triamcinolone acetonide (NASACORT AQ) 55 mcg nasal inhaler Use 2 Sprays in the nose. No current facility-administered medications for this visit. ALLERGIES Allergen Reactions Ketorolac Hives Prednisone Other: See Comments Tramadol Other: See Comments PAST SURGICAL HISTORY Procedure Laterality Date LIGATE FALLOPIAN TUBE PAST SURGICAL HISTORY OF Foot sx x2 TOTAL ABDOM HYSTERECTOMY No family history on file. Social History Tobacco Use Smoking status: Every Day Types: Cigarettes Start date: 1999 Smokeless tobacco: Never Tobacco comments: Patient states she was formerly smoking 6 packs per day until 2020. Has cut down to 1.5-2 packs per day now. Substance Use Topics Alcohol use: Not Currently Drug use: Not Currently Tobacco Use: Not on file REVIEW OF SYSTEMS: The remainder of the ROS was reviewed with the patient and is negative except as noted. OBJECTIVE: General: Pleasant in no acute distress Lower extremity exam: Vascular exam: Normal vascular exam, palpable pluses with brisk capillary fill Neurological exam: Unchanged from previous exam Dermatological exam: LEFT FOOT Hyperkeratosis plantar lateral fourth inter metatarsal space with hypertrophic scar Hyperkeratosis and prominence of bone plantar medial LEFT great toe Ortho: Pes plano valgus deformity LEFT Depressed arch height with weight bearing LABS: Most recent labs reviewed LABORATORY STUDIES: Recent Labs 03/20/24 1053 HBA1C 8.2* ASSESSMENT: R26.2 Difficulty walking (primary encounter diagnosis) M79.671 Right foot pain R52, L90.5 Painful scar G57.92 Neuritis of left lower extremity (more content not included)... [facility] 04-27-2024 History of Presen t illness Narrative Patient Visit for Gary Vigil 1985 38 year old female Date of Service: April 27, 2024 SUBJECTIVE: Chief Complaint: Patient presents with: Left Foot - Established Patient, Pre-Op Visit /Pain Scales: Verbal (Numeric Rating or Visual Analog Scale) Pain Level: 9 Pain Location: Foot-Left Description: Aching, Pressure, Sharp, Sore, Stabbing, Stabbing/Not Incision Duration Amount of Time: 8 Duration Units: Weeks Frequency: Continuous Intervention/Comfort measure: Medication, Massage, Pillow support Comments: She is here for a pre op of the left foot surgery. 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 No past medical history on file. Current Outpatient Medications Medication Sig dulaglutide (TRULICITY) 1.5 mg/0.5 mL pen injector Inject 1.5 mg subcutaneously. spironolactone (ALDACTONE) 50 mg tablet Take 50 mg by mouth. atorvastatin calcium (ATORVASTATIN ORAL) Take by mouth once daily. sitagliptin phosphate (JANUVIA ORAL) Take by mouth once daily. mupirocin (BACTROBAN) 2 % ointment Apply 1 application to affected area two times a day. acetaminophen (TYLENOL) 500 mg tablet take 2 tablets by mouth every 8 hours if needed albuterol HFA (PROVENTIL HFA, VENTOLIN HFA) 90 mcg/actuation inhaler Inhale 2 Puffs as instructed every 6 hours as needed. amitriptyline (ELAVIL) 50 mg tablet Take 50 mg by mouth daily at bedtime. Three RingsTOUCH ULTRA TEST test strip twice daily. TEST TWICE DAILY VRAYLAR 4.5 mg capsule take 1 take by mouth once daily citalopram (CELEXA) 20 mg tablet Take 20 mg by mouth daily at bedtime. doxycycline (VIBRA-TABS) 100 mg tablet take 1 tablet by mouth twice a day for 10 days etodolac (LODINE-XL) 500 mg 24 hr tablet take 1 tablet by mouth once daily NEEDED FOR PAIN with food FLOVENT HFA 110 mcg/actuation inhaler inhale 2 puffs by mouth and INTO THE LUNGS twice a day fluticasone (FLONASE) 50 mcg/actuation nasal spray instill 1 spray into each nostril twice a day furosemide (LASIX) 40 mg tablet take 1 tablet by mouth once daily if needed for SWELLING AJOVY AUTOINJECTOR 225 mg/1.5 mL auto-injector inject subcutaneously as directed loratadine (CLARITIN) 10 mg tablet Take 10 mg by mouth once daily. lidocaine (SALONPAS) 4 % patch Apply 1 Patch as directed q 24 HR. montelukast (SINGULAIR) 10 mg tablet Take 10 mg by mouth. omeprazole (PRILOSEC) 20 mg capsule Take 20 mg by mouth once daily. potassium chloride ER (K-DUR, KLOR-CON) 20 mEq tablet Take 20 mEq by mouth. prazosin (MINIPRESS) 5 mg cap Take 5 mg by mouth once daily. rizatriptan (MAXALT) 5 mg tablet take 1 tablet by mouth AT ONSET OF HEADACHE MAY TAKE A SECOND TAB... (REFER TO PRESCRIPTION NOTES). SUMAtriptan (IMITREX) 100 mg tablet take 1 tablet by mouth if needed to ABORT MIGRAINE once daily 30 DAY SUPPLY traZODone HCl 300 mg tablet Take 300 mg by mouth once daily. triamcinolone acetonide (NASACORT AQ) 55 mcg nasal inhaler Use 2 Sprays in the nose. No current facility-administered medications for this visit. ALLERGIES Allergen Reactions Ketorolac Hives Prednisone Other: See Comments Tramadol Other: See Comments PAST SURGICAL HISTORY Procedure Laterality Date LIGATE FALLOPIAN TUBE PAST SURGICAL HISTORY OF Foot sx x2 TOTAL ABDOM HYSTERECTOMY No family history on file. Social History Tobacco Use Smoking status: Every Day Types: Cigarettes Start date: 1999 Smokeless tobacco: Never Tobacco comments: Patient states she was formerly smoking 6 packs per day until 2020. Has cut down to 1.5-2 packs per day now. Substance Use Topics Alcohol use: Not Currently Drug use: Not Currently Tobacco Use: Not on file REVIEW OF SYSTEMS: The remainder of the ROS was reviewed with the patient and is negative except as noted. OBJECTIVE: General: Pleasant in no acute distress Lower extremity exam: Vascular exam: Normal vascular exam, palpable pluses with brisk capillary fill Neurological exam: Unchanged from previous exam Dermatological exam: LEFT FOOT Hyperkeratosis plantar lateral fourth inter metatarsal space with hypertrophic scar Hyperkeratosis and prominence of bone plantar medial LEFT great toe Ortho: Pes plano valgus deformity LEFT Depressed arch height with weight bearing LABS: Most recent labs reviewed LABORATORY STUDIES: Recent Labs 03/20/24 1053 HBA1C 8.2* ASSESSMENT: R26.2 Difficulty walking (primary encounter diagnosis) M79.671 Right foot pain R52, L90.5 Painful scar G57.92 Neuritis of left lower extremity M79.7 Fibromyalgia PLAN: Explained to the patient etiology and treatment plan. Treatment options discussed at length Risks Benefits Alternatives relative to procedure discussed regarding excision painful scar plantar fourth inter metatarsal space LEFT FOOT and partial excision bone plantar medial great toe Patient understands the need for NWB (Non Weight Bearing) post operative All questions were answered. Gary Vgiil appeared to be well informed. Greater than 50% of the visit was spent face to face counseling and/or coordinating care for the patient. Eulalia Fuentes DPM documented in this encounter [facility] 04-14-2024 Telephone encounter Note Patient had recent [facility] appt, 03/20. Per Elyse Bowden CNP, does not need to come in today and with be DOS update. Called and spoke with patient. She still has instructions given at [facility] appt. No changes to medications or recent illnesses to report. Reviewed instructions with patient and is aware that she is not to take trulicity within one week of procedure. Elodia Cobb LPN April 14, 2024 8:51 AM [facility] 04-14-2024 Miscellaneous Notes Patient had recent [facility] appt, 03/20. Per Elyse Bowden CNP, does not need to come in today and with be DOS update. Called and spoke with patient. She still has instructions given at [facility] appt. No changes to medications or recent illnesses to report. Reviewed instructions with patient and is aware that she is not to take trulicity within one week of procedure. Elodia Cobb LPN April 14, 2024 8:51 AM documented in this encounter [facility] 04-08-[address] Kline, I spoke to patient and she is rescheduled for surgery on 05/01/24, and has an appointment to see you in clinic on 04/27/24. Patient would like a call as soon as possible. She is quite upset that the surgery being performed is not for her arch, as she believed that was the whole purpose of the surgery and is counting on that. She is also upset about the toe infection and said this is something that is ongoing and you knew about it, so doesn't understand why her surgery for this Saturday had to be rescheduled. Thank you, Sugar [facility] Work Phone: 04-08-[address] Kline, I spoke to patient and she is rescheduled for surgery on 05/01/24, and has an appointment to see you in clinic on 04/27/24. Patient would like a call as soon as possible. She is quite upset that the surgery being performed is not for her arch, as she believed that was the whole purpose of the surgery and is counting on that. She is also upset about the toe infection and said this is something that is ongoing and you knew about it, so doesn't understand why her surgery for this Saturday had to be rescheduled. Thank you, Sugar The pt is calling, she just wanted to let you know that she went to [facility] ED yesterday and she has an infected right toe and is currently being treated with Clindamycin 300 mg 1 pill by mouth every 6 hours for 10 days. Pt is scheduled for surgery on her left foot on 04/10, She also wants to know if you can tell her what you will be doing during the surgery, she was under the impression she was having the callous removed and having an arch implant, she wants to make sure this is still the case. You may call her back at the number listed in contacts and may leave any message. documented in this encounter [facility] 04-06-2024 Telephone encounter Note The pt is calling, she just wanted to let you know that she went to [facility] ED yesterday and she has an infected right toe and is currently being treated with Clindamycin 300 mg 1 pill by mouth every 6 hours for 10 days. Pt is scheduled for surgery on her left foot on 04/10, She also wants to know if you can tell her what you will be doing during the surgery, she was under the impression she was having the callous removed and having an arch implant, she wants to make sure this is still the case. You may call her back at the number listed in contacts and may leave any message. [facility] 03-24-2024 Telephone encounter Note Faxed FMLA form to [employer] [phone] Received fax confirmation Spoke with patient Will have scanned into records. [facility] 03-24-2024 Miscellaneous Notes Faxed FMLA form to [employer] [phone] Received fax confirmation Spoke with patient Will have scanned into records. Type of form: FMLA Form received via fax When form is completed, Fax form to Form has been forwarded to [facility] Lissette Saleh documented in this encounter [facility] 03-24-2024 Telephone encounter Note Type of form: FMLA Form received via fax When form is completed, Fax form to Form has been forwarded to [facility] Lissette Saleh [facility] 03-23-2024 History of Presen t illness Narrative This is a 1 year visit in patient with multiple risk factors as noted below. Interestingly at the last office visit I had suggested as needed follow-up. She presented at that time for preoperative cardiac risk assessment. Subjective : Interval review of systems is negative for chest discomfort pressure tightness heaviness palpitations lightheadedness orthopnea paroxysmal nocturnal dyspnea dependent edema or claudication TIA or CVA type symptoms or bleeding diathesis No symptoms of hypoglycemia Reports that recent hemoglobin A1c is 8.5. No symptoms of hypoglycemia. Anticipating foot surgery in the near future. Underwent hysterectomy since last visit without untoward effects Has been losing weight, however Trulicity is out of stock. Requesting any medicine that can help with weight loss History so Far : 1. Hypertension 2. Hyperlipidemia 3. Diabetes mellitus 4. Nicotine dependence 5. Increased BMI 6. ER visit with chest discomfort December 2022 7. Abnormal EKG 8. Irregular menstrual period's, she denies being 9. Hypokalemia related to excessive potassium loss due to diuretics, she says that she needs the diuretics in order to prevent lower extremity edema 10. History of cholecystectomy 11. Hyperglycemia 12. Normocytic anemia 13. Migraine headaches 14. Treadmill stress perfusion study February 2023-5.8 METS, 86% age-predicted maximum heart rate, maximum blood pressure 184/58 [place] treadmill score of 3 test terminated due to dyspnea LVEF 72% normal perfusion transient ischemic dilatation 0.86 15. Echocardiogram January 2023-LVEF 60 to 65% left atrial diameter 3.3 cm left ventricular end-systolic diameter 2.4 cm, no pericardial effusion Objective Wt Readings from Last 3 Encounters: 03/23/24 105 kg (232 lb) 04/15/23 102 kg (224 lb) 02/11/23 104 kg (230 lb) Vitals: 03/23/24 0858 BP: 112/72 BP Location: Right arm Patient Position: Sitting Pulse: 82 Weight: 105 kg (232 lb) Height: 1.651 m (5' 5 ) Physical Exam: GENERAL APPEARANCE: in no acute distress. CHEST: Symmetric and non-tender. INTEGUMENT: Skin warm and dry HEENT: No gross abnormalities identified.No pallor or scleral icterus. NECK: Supple, no JVD, no bruit. NEURO/PSHCY: Alert and oriented x3; appropriate behavior and responses and responses LUNGS: Clear to auscultation bilaterally; normal respiratory effort. HEART: Rate and rhythm regular with no evident murmur; no gallop appreciated. ABDOMEN: Soft, non tender. MUSCULOSKELETAL: No gross deformities. EXTREMITIES: Warm There is no edema noted. Meds: Current Outpatient Medications Medication Instructions Ajovy Autoinjector 225 mg, subcutaneous, Every 30 days albuterol 180 mcg, inhalation, Every 4 hours cariprazine (VRAYLAR) 4.5 mg, oral, Daily citalopram (CELEXA) 20 mg, oral, Daily fluticasone (Flovent HFA) 110 mcg/actuation inhaler 1 puff, inhalation, 2 times daily RT, Rinse mouth with water after use to reduce aftertaste and incidence of candidiasis. Do not swallow. furosemide (LASIX) 20 mg, oral, Daily loratadine (CLARITIN REDITABS) 10 mg, oral, Daily omeprazole OTC (PRILOSEC OTC) 20 mg, oral, Daily before breakfast, Do not crush, chew, or split. Ozempic 0.5 mg, subcutaneous, Every 7 days potassium chloride CR 20 mEq ER tablet 20 mEq, oral, Daily, Do not crush or chew. rizatriptan (MAXALT) 5 mg, oral, Once as needed, May repeat in 2 hours if unresolved. Do not exceed 30 mg in 24 hours. rOPINIRole (REQUIP) 1 mg, oral, 3 times daily SITagliptin phosphate (JANUVIA) 100 mg, oral, Daily spironolactone (ALDACTONE) 50 mg, oral, Daily Trulicity 1.5 mg, subcutaneous, Once Weekly Allergies Allergen Reactions Tramadol Anaphylaxis, Other and Unknown Other Reaction(s): Comments: Heart Stops Ketorolac Hives Other Reaction(s): Dermatitis Comments: Hives Prednisone Hives, Other and Unknown Other Reaction(s): angry rage LABS: Lab Results Component Value Date HGBA1C 8.2 (H) 03/20/2024 I have reviewed CBC and comprehensive profile from February 2024. Did not see lipid profile. Patient Active Problem List Diagnosis Date Noted BMI 38.0-38.9,adult 03/23/2024 Smoker 03/23/2024 Hyperlipidemia 03/23/2024 Abnormal EKG 12/30/2023 Anemia 12/30/2023 Diabetes mellitus type II, non insulin dependent (Multi) 12/30/2023 Shortness of breath 12/30/2023 Primary hypertension 12/30/2023 Migraine 12/30/2023 Assessment: 1. Diabetes mellitus type II, non insulin dependent (Multi) semaglutide (Ozempic) 0.25 mg or 0.5 mg (2 mg/3 mL) pen injector Lipid Panel 2. Anemia, unspecified type 3. Primary hypertension Follow Up In Cardiology furosemide (Lasix) 20 mg tablet potassium chloride CR 20 mEq ER tablet spironolactone (Aldactone) 50 mg tablet 4. BMI 38.0-38.9,adult 5. Smoker 6. Hyperlipidemia, unspecified hyperlipidemia type semaglutide (Ozempic) 0.25 mg or 0.5 mg (2 mg/3 mL) pen injector Lipid Panel Clinical decision makin. I prescribed Ozempic 0.25 mg subcutaneously once a week for 4 weeks and then 0.5 mg subcutaneously per week. 2. Lipid profile in the near future 3. Heart healthy lifestyle encouraged 4. Follow-up in 3 to 4 months sooner if interval problems arise 5. If Ozempic is not covered on her insurance, then I would add Jardiance or Farxiga if any of those are covered. 6. Consider metformin. Follow up : 3 months Provider Attestation - Scribe documentation All medical record entries made by the Scribe were at my direction and personally dictated by me. I have reviewed the chart and agree that the record accurately reflects my personal performance of the history, physical exam, discussion and plan. Scribe Attestation By signing my name below, I, Gillian Finley LPN attest that this documentation has been prepared under the direction and in the presence of Krystal Koehler MD. documented in this encounter [facility] Work Phone: 03-23-2024 Instructions Malia Valdivia LPN - 03/23/2024 9:00 AM EDT Please bring all medicines, vitamins, and herbal supplements with you when you come to the office. Prescriptions will not be filled unless you are compliant with your follow up appointments or have a follow up appointment scheduled as per instruction of your physician. Refills should be requested at the time of your visit. documented in this encounter [facility] Work Phone: 03-20-2024 History and physical note Images from the original note were not included. HISTORY AND PHYSICAL EXAMINATION SERVICE DATE: 03/20/2024 SERVICE TIME: 10:03 AM PRIMARY CARE PHYSICIAN: No primary care provider on file. REASON FOR VISIT: Gary Vigil is a 38 year old female who is scheduled for Left - EXCISION BENIGN CYST/MASS LESION LOWER EXTREMITY < 0.5CM at the request of Dr. Eulalia Fuentes for consultation. My final recommendation will be communicated back to the requesting physician by way of shared medical record or letter. Assessment Patient has the following medical conditions which may affect farhat-operative course: Hyperlipidemia, unspecified Assessment: On Statin Follows with PCP Type 2 diabetes mellitus (HCC) Assessment: On Trulicity (Sundays) to hold 7 days prior to procedure On Follows with [facility] services To get HGB A1C today Fibromyalgia Assessment: Controlled with Tylenol Migraines Assessment: Ajovy Monthly- Next Dose 03/24 Has rescue medication if needed Cigarette nicotine dependence without complication Assessment: Smokes 1.5-2 PPD Cut back from 6 PPD in 2020 Mild intermittent asthma without complication Assessment: Stable Albuterol if needed Follows with [facility] services Obstructive sleep apnea of adult Assessment: Not currently using CPAP as hers was recalled and she has not gotten a new one yet Gastro-esophageal reflux disease without esophagitis Assessment: Controlled with PPI Class 2 severe obesity due to excess calories with serious comorbidity and body mass index (BMI) of 36.0 to 36.9 in adult ([facility]) Assessment: Body mass index is 36.65 kg/m . [place] Activity Status Index: METS: Do moderate work around the house, such as vacuuming, sweeping floors, or carrying in groceries (3.50 METs) Climb a flight of stairs or walk up a hill (5.50 METs) DASI Score: 9 Patient denies any chest pain or undue shortness of breath with the above physical activity. ANESTHESIA FINDINGS: Intubation History: No history of difficult intubation Significant Anesthesia Considerations: none Airway History: No history of difficult airway I - PHYSICAL EVALUATION AIRWAY Patient intubated: No. Tracheostomy tube not present Mallampati: II. TM distance: >3 FB. Neck ROM: full ROM without neurological symptoms. Mouth opening: adequate. Short neck: no. Thick neck: no Lip Bite Test: II Microretrognathia/Micronagthia/ Recessed Chin: No DENTAL Dental findings: teeth intact. Prepared for surgery: This patient is optimally prepared for surgery Pending A1C result CONSULTS: Patient does not require consults for optimization at this time. The Following Tests/Procedures Have Been Initiated: Labs not indicated per [facility] protocol, EKG not indicated per [facility] protocol Planned Anesthetic: Per anesthesia choice Subjective CHIEF COMPLAINT: Left foot pain HPI: 38 year old year old presents to [facility] for evaluation. Patient Has had foot pain > 20 years. Hx of foot sx x2. Has elected for surgical intervention. History reviewed. No pertinent past medical history. PAST SURGICAL HISTORY Procedure Laterality Date LIGATE FALLOPIAN TUBE PAST SURGICAL HISTORY OF Foot sx x2 TOTAL ABDOM HYSTERECTOMY History reviewed. No pertinent family history. SOCIAL HISTORY: Social History Tobacco Use Smoking status: Every Day Types: Cigarettes Start date: 1999 Smokeless tobacco: Never Tobacco comments: Patient states she was formerly smoking 6 packs per day until 2020. Has cut down to 1.5-2 packs per day now. Substance Use Topics Alcohol use: Not Currently Drug use: Not Currently Prior to Admission medications as of 03/20/24 1026 Medication Sig Last Dose Taking dulaglutide (TRULICITY) 1.5 mg/0.5 mL pen injector Inject 1.5 mg subcutaneously. Yes spironolactone (ALDACTONE) 50 mg tablet Take 50 mg by mouth. Yes atorvastatin calcium (ATORVASTATIN ORAL) Take by mouth once daily. Yes sitagliptin phosphate (JANUVIA ORAL) Take by mouth once daily. Yes cefADROxil (DURICEF) 500 mg capsule Take 1 capsule by mouth two times a day for 7 days. Yes mupirocin (BACTROBAN) 2 % ointment Apply 1 application to affected area two times a day. Yes acetaminophen (TYLENOL) 500 mg tablet take 2 tablets by mouth every 8 hours if needed Yes albuterol HFA (PROVENTIL HFA, VENTOLIN HFA) 90 mcg/actuation inhaler Inhale 2 Puffs as instructed every 6 hours as needed. Yes amitriptyline (ELAVIL) 50 mg tablet Take 50 mg by mouth daily at bedtime. Yes ONETOUCH ULTRA TEST test strip twice daily. TEST TWICE DAILY Yes VRAYLAR 4.5 mg capsule take 1 take by mouth once daily Yes citalopram (CELEXA) 20 mg tablet Take 20 mg by mouth daily at bedtime. Yes doxycycline (VIBRA-TABS) 100 mg tablet take 1 tablet by mouth twice a day for 10 days Yes etodolac (LODINE-XL) 500 mg 24 hr tablet take 1 tablet by mouth once daily NEEDED FOR PAIN with food Yes FLOVENT HFA 110 mcg/actuation inhaler inhale 2 puffs by mouth and INTO THE LUNGS twice a day Yes fluticasone (FLONASE) 50 mcg/actuation nasal spray instill 1 spray into each nostril twice a day Yes furosemide (LASIX) 40 mg tablet take 1 tablet by mouth once daily if needed for SWELLING Yes AJOVY AUTOINJECTOR 225 mg/1.5 mL auto-injector inject subcutaneously as directed Yes loratadine (CLARITIN) 10 mg tablet Take 10 mg by mouth once daily. Yes lidocaine (SALONPAS) 4 % patch Apply 1 Patch as directed q 24 HR. Yes montelukast (SINGULAIR) 10 mg tablet Take 10 mg by mouth. Yes omeprazole (PRILOSEC) 20 mg capsule Take 20 mg by mouth once daily. Yes potassium chloride ER (K-DUR, KLOR-CON) 20 mEq tablet Take 20 mEq by mouth. Yes prazosin (MINIPRESS) 5 mg cap Take 5 mg by mouth once daily. Yes rizatriptan (MAXALT) 5 mg tablet take 1 tablet by mouth AT ONSET OF HEADACHE MAY TAKE A SECOND TAB... (REFER TO PRESCRIPTION NOTES). Yes SUMAtriptan (IMITREX) 100 mg tablet take 1 tablet by mouth if needed to ABORT MIGRAINE once daily 30 DAY SUPPLY Yes traZODone HCl 300 mg tablet Take 300 mg by mouth once daily. Yes triamcinolone acetonide (NASACORT AQ) 55 mcg nasal inhaler Use 2 Sprays in the nose. Yes No medication comments found. ALLERGIES Allergen Reactions Ketorolac Hives Prednisone Other: See Comments Tramadol Other: See Comments Covid Immunization Dates Overdue - Covid-19 Vaccine ( season) Overdue since 07/26/2023 02/07/2022 Imm Admin: COVID-19 original vaccine, age 12+ yr, monovalent ([employer] [facility]) 01/17/2022 Imm Admin: COVID-19 original vaccine, age 12+ yr, monovalent ([employer] [facility]) 02/07/2021 Outside Immunization: COVID-19 mRNA, Comirnaty ([employer]) 01/17/2021 Outside Immunization: COVID-19 mRNA, Comirnaty ([employer]) REVIEW OF SYSTEMS: PAIN ASSESSMENT: Pain Pain Level: 8 Pain Location: Foot-Left Description: Aching, Sharp Duration Units: Years Frequency: Continuous Intervention/Comfort measure: Medication, Positioning General: No weight loss, malaise or fevers. Neuro: No history of TIA's, stroke, THREADING MACHINE OPERATOR tumor, impaired sensorium, hemiplegia, paraplegia or quadraplegia. No neurological symptoms or problems. 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 : Denies, No LMP recorded. Patient has had a hysterectomy. Endocrine: +Trulicity and Januvia DM2 Hematology: No history of bleeding or clotting disorder. Pt is not taking anti-coagulation or platelet medications. No history of hematological symptoms or problems. Oncology: No history of CA metastasis, chemo within 30 days, or radiotherapy within 90 days. Has not lost 10% of body wt in 6 months. No history of oncological symptoms or problems. Psych: Anxiety, Depression, Bipolar disorder Musculoskeletal: Back pain and Joint pain +Fibromyalgia Skin: Negative for lesions, rash and itching. Objective PHYSICAL EXAM: VITALS: BP 127/79 Pulse 97 Temp (Src) 97.3 (Temporal) Resp 16 Ht 5' 6 (1.68m) Wt 227 lb 1.2 oz (103.0kg) SpO2 99% BMI 36.67 kg/(m^2). General: Alert and oriented Skin: Normal color, no rash, no lesions. HEENT: EOM, pupils equal, round and reactive. Cardiovascular: Normal S1 & S2, no rubs, murmurs or gallops. No JVD. Pulse regular. Lungs: Normal breath sounds, no wheezes or crackles. Abdomen: Soft, non-tender, no rigidity. Extremities: No deformity, no edema or tenderness, no joint swelling or clubbing. Neurological: Normal cognition and motor skills. Pulses: Carotid and radial pulses normal +2. Diagnostic tests reviewed for today's visit: No new labs or tests Instructions Given to Patient: Instructions located in the after visit summary. Patient given verbal and written preop instructions and voices comprehension and compliance. SIGNATURE: Severiano Virk APRN.CNP PATIENT NAME: Gary Vigil DATE: 03/20/2024 TIME: 10:18 AM [facility] 03-20-2024 History and physical note Images from the original note were not included. HISTORY AND PHYSICAL EXAMINATION SERVICE DATE: 03/20/2024 SERVICE TIME: 10:03 AM PRIMARY CARE PHYSICIAN: No primary care provider on file. REASON FOR VISIT: Gary Vigil is a 38 year old female who is scheduled for Left - EXCISION BENIGN CYST/MASS LESION LOWER EXTREMITY < 0.5CM at the request of Dr. Eulalia uFentes for consultation. My final recommendation will be communicated back to the requesting physician by way of shared medical record or letter. Assessment Patient has the following medical conditions which may affect farhat-operative course: Hyperlipidemia, unspecified Assessment: On Statin Follows with PCP Type 2 diabetes mellitus (HCC) Assessment: On Trulicity (Sundays) to hold 7 days prior to procedure On Novuvia Follows with Family health services To get HGB A1C today Fibromyalgia Assessment: Controlled with Tylenol Migraines Assessment: Ajovy Monthly- Next Dose 03/24 Has rescue medication if needed Cigarette nicotine dependence without complication Assessment: Smokes 1.5-2 PPD Cut back from 6 PPD in 2020 Mild intermittent asthma without complication Assessment: Stable Albuterol if needed Follows with Family health services Obstructive sleep apnea of adult Assessment: Not currently using CPAP as hers was recalled and she has not gotten a new one yet Gastro-esophageal reflux disease without esophagitis Assessment: Controlled with PPI Class 2 severe obesity due to excess calories with serious comorbidity and body mass index (BMI) of 36.0 to 36.9 in adult ([facility]) Assessment: Body mass index is 36.65 kg/m . [place] Activity Status Index: METS: Do moderate work around the house, such as vacuuming, sweeping floors, or carrying in groceries (3.50 METs) Climb a flight of stairs or walk up a hill (5.50 METs) DASI Score: 9 Patient denies any chest pain or undue shortness of breath with the above physical activity. ANESTHESIA FINDINGS: Intubation History: No history of difficult intubation Significant Anesthesia Considerations: none Airway History: No history of difficult airway I - PHYSICAL EVALUATION AIRWAY Patient intubated: No. Tracheostomy tube not present Mallampati: II. TM distance: >3 FB. Neck ROM: full ROM without neurological symptoms. Mouth opening: adequate. Short neck: no. Thick neck: no Lip Bite Test: II Microretrognathia/Micronagthia/ Recessed Chin: No DENTAL Dental findings: teeth intact. Prepared for surgery: This patient is optimally prepared for surgery Pending A1C result CONSULTS: Patient does not require consults for optimization at this time. The Following Tests/Procedures Have Been Initiated: Labs not indicated per [facility] protocol, EKG not indicated per [facility] protocol Planned Anesthetic: Per anesthesia choice Subjective CHIEF COMPLAINT: Left foot pain HPI: 38 year old year old presents to [facility] for evaluation. Patient Has had foot pain > 20 years. Hx of foot sx x2. Has elected for surgical intervention. History reviewed. No pertinent past medical history. PAST SURGICAL HISTORY Procedure Laterality Date LIGATE FALLOPIAN TUBE PAST SURGICAL HISTORY OF Foot sx x2 TOTAL ABDOM HYSTERECTOMY History reviewed. No pertinent family history. SOCIAL HISTORY: Social History Tobacco Use Smoking status: Every Day Types: Cigarettes Start date: 1999 Smokeless tobacco: Never Tobacco comments: Patient states she was formerly smoking 6 packs per day until 2020. Has cut down to 1.5-2 packs per day now. Substance Use Topics Alcohol use: Not Currently Drug use: Not Currently Prior to Admission medications as of 03/20/24 1026 Medication Sig Last Dose Taking dulaglutide (TRULICITY) 1.5 mg/0.5 mL pen injector Inject 1.5 mg subcutaneously. Yes spironolactone (ALDACTONE) 50 mg tablet Take 50 mg by mouth. Yes atorvastatin calcium (ATORVASTATIN ORAL) Take by mouth once daily. Yes sitagliptin phosphate (JANUVIA ORAL) Take by mouth once daily. Yes cefADROxil (DURICEF) 500 mg capsule Take 1 capsule by mouth two times a day for 7 days. Yes mupirocin (BACTROBAN) 2 % ointment Apply 1 application to affected area two times a day. Yes acetaminophen (TYLENOL) 500 mg tablet take 2 tablets by mouth every 8 hours if needed Yes albuterol HFA (PROVENTIL HFA, VENTOLIN HFA) 90 mcg/actuation inhaler Inhale 2 Puffs as instructed every 6 hours as needed. Yes amitriptyline (ELAVIL) 50 mg tablet Take 50 mg by mouth daily at bedtime. Yes ONETOUCH ULTRA TEST test strip twice daily. TEST TWICE DAILY Yes VRAYLAR 4.5 mg capsule take 1 take by mouth once daily Yes citalopram (CELEXA) 20 mg tablet Take 20 mg by mouth daily at bedtime. Yes doxycycline (VIBRA-TABS) 100 mg tablet take 1 tablet by mouth twice a day for 10 days Yes etodolac (LODINE-XL) 500 mg 24 hr tablet take 1 tablet by mouth once daily NEEDED FOR PAIN with food Yes FLOVENT HFA 110 mcg/actuation inhaler inhale 2 puffs by mouth and INTO THE LUNGS twice a day Yes fluticasone (FLONASE) 50 mcg/actuation nasal spray instill 1 spray into each nostril twice a day Yes furosemide (LASIX) 40 mg tablet take 1 tablet by mouth once daily if needed for SWELLING Yes AJOVY AUTOINJECTOR 225 mg/1.5 mL auto-injector inject subcutaneously as directed Yes loratadine (CLARITIN) 10 mg tablet Take 10 mg by mouth once daily. Yes lidocaine (SALONPAS) 4 % patch Apply 1 Patch as directed q 24 HR. Yes montelukast (SINGULAIR) 10 mg tablet Take 10 mg by mouth. Yes omeprazole (PRILOSEC) 20 mg capsule Take 20 mg by mouth once daily. Yes potassium chloride ER (K-DUR, KLOR-CON) 20 mEq tablet Take 20 mEq by mouth. Yes prazosin (MINIPRESS) 5 mg cap Take 5 mg by mouth once daily. Yes rizatriptan (MAXALT) 5 mg tablet take 1 tablet by mouth AT ONSET OF HEADACHE MAY TAKE A SECOND TAB... (REFER TO PRESCRIPTION NOTES). Yes SUMAtriptan (IMITREX) 100 mg tablet take 1 tablet by mouth if needed to ABORT MIGRAINE once daily 30 DAY SUPPLY Yes traZODone HCl 300 mg tablet Take 300 mg by mouth once daily. Yes triamcinolone acetonide (NASACORT AQ) 55 mcg nasal inhaler Use 2 Sprays in the nose. Yes No medication comments found. ALLERGIES Allergen Reactions Ketorolac Hives Prednisone Other: See Comments Tramadol Other: See Comments Covid Immunization Dates Overdue - Covid-19 Vaccine ( season) Overdue since 07/26/2023 02/07/2022 Imm Admin: COVID-19 original vaccine, age 12+ yr, monovalent ([employer] - [facility]) 01/17/2022 Imm Admin: COVID-19 original vaccine, age 12+ yr, monovalent ([employer] [facility]) 02/07/2021 Outside Immunization: COVID-19 mRNA, Comirnaty (Pf[employer]) 01/17/2021 Outside Immunization: COVID-19 mRNA, Comirnaty ([employer]) REVIEW OF SYSTEMS: PAIN ASSESSMENT: Pain Pain Level: 8 Pain Location: Foot-Left Description: Aching, Sharp Duration Units: Years Frequency: Continuous Intervention/Comfort measure: Medication, Positioning General: No weight loss, malaise or fevers. Neuro: No history of TIA's, stroke, THREADING MACHINE OPERATOR tumor, impaired sensorium, hemiplegia, paraplegia or quadraplegia. No neurological symptoms or problems. 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 : Denies, No LMP recorded. Patient has had a hysterectomy. Endocrine: +Trulicity and Januvia DM2 Hematology: No history of bleeding or clotting disorder. Pt is not taking anti-coagulation or platelet medications. No history of hematological symptoms or problems. Oncology: No history of CA metastasis, chemo within 30 days, or radiotherapy within 90 days. Has not lost 10% of body wt in 6 months. No history of oncological symptoms or problems. Psych: Anxiety, Depression, Bipolar disorder Musculoskeletal: Back pain and Joint pain +Fibromyalgia Skin: Negative for lesions, rash and itching. Objective PHYSICAL EXAM: VITALS: BP 127/79 Pulse 97 Temp (Src) 97.3 (Temporal) Resp 16 Ht 5' 6 (1.68m) Wt 227 lb 1.2 oz (103.0kg) SpO2 99% BMI 36.67 kg/(m^2). General: Alert and oriented Skin: Normal color, no rash, no lesions. HEENT: EOM, pupils equal, round and reactive. Cardiovascular: Normal S1 & S2, no rubs, murmurs or gallops. No JVD. Pulse regular. Lungs: Normal breath sounds, no wheezes or crackles. Abdomen: Soft, non-tender, no rigidity. Extremities: No deformity, no edema or tenderness, no joint swelling or clubbing. Neurological: Normal cognition and motor skills. Pulses: Carotid and radial pulses normal +2. Diagnostic tests reviewed for today's visit: No new labs or tests Instructions Given to Patient: Instructions located in the after visit summary. Patient given verbal and written preop instructions and voices comprehension and compliance. SIGNATURE: Severiano Virk APRN.CNP PATIENT NAME: Gary Vigil DATE: 03/20/2024 TIME: 10:18 AM documented in this encounter [facility] 03-19-2024 Instructions Severiano Virk APRN.CNP - 03/19/2024 1:16 PM EDT PATIENT PREOPERATIVE INSTRUCTIONS You Surgeon has scheduled you for your procedure at this surgery center: [facility]: [phone] --[address] [address]. Please read below carefully for your personalized instructions. Dietary Restrictions: - No solid food after midnight. - You may have 12 ounces of clear liquids (water, clear juices such as apple juice or gatorade, carbonated beverages, clear tea, black coffee, jello) until 2 hours before scheduled arrival at facility. Medications: Unless instructed differently below, stay on all of your medications until your surgery. Approved medications to take the morning of surgery with a sip of water: None since all medication is taken at night Preoperative Instructions for Patient's with Diabetes Mellitus/ Prediabetes Oral/ Injectable Medication Instructions - Januvia/Sitagliptin- - HOLD DAY OF SURGERY Dulaglutide (Trulicity) - please HOLD 7 DAYS PRIOR TO SURGERY LAST DOSE PRIOR TO PROCEDURE WILL BE: 03/29/2024 If you start any new medications after today's visit, please contact the surgeon's office. Blood Thinning Medications: - Stop NSAIDS (Ibuprofen, Advil, Aleve, Motrin, Celebrex, Mobic, etc.) 7 days before surgery, as directed by your surgeon. - Stop Aspirin 7 days before surgery, as directed by your surgeon. - Stop Vitamin E, ALL multi-vitamins, herbals and dietary supplements 7 days before surgery. - You may take Tylenol (Acetaminophen) or any of your pain medications that do not contain aspirin or NSAIDS as needed. Important Reminders: - If you are prescribed inhalers for breathing, continue using them. - Candy, mints, and tobacco products are NOT permitted the morning of surgery. - Hearing aids, dentures and glasses may be worn the morning of surgery. - NO jewelry, body piercings, makeup, hairpins or contacts are to be worn the day of surgery. If you develop symptoms such as a fever, cold, or flu, or have other changes to your health within TWO DAYS of scheduled surgery or the morning of surgery, please contact the surgery center above. Personal Belongings: -Please have photo ID and insurance cards. -If you do not have a copy of advance directives on file with us, please bring a copy with you on the day of surgery. - Leave ALL valuables and money at home or with family members. For Outpatient Procedures: - YOU MUST HAVE A RESPONSIBLE PEANUT CLEANER TAKE YOU HOME. A GEOSPATIAL DEVELOPER OR ICE CREAM CHEF CANNOT BE MADE A RESPONSIBLE PEANUT CLEANER. - We recommend that a responsible person stays with you overnight to take care of you. - You cannot stay in a hotel alone after outpatient surgery. You will not be permitted to have your surgery, if you do not have someone to take care of you. Arrival Time for Surgery: - The Surgery Center or hospital where you are having surgery will call the afternoon before surgery (or Saturday for Saturday surgery) with a scheduled arrival time. - If you have not heard by 4 pm, please contact the surgery center above. Please be aware that emergency situations arise, which may delay or change your surgical time. If this happens, we will notify you as soon as possible and regret any inconvenience. If you already have an Advance Directive, please fax a copy to [phone] or email to for it to be added to your chart. If you do not have an Advance Directive, you can find the appropriate form and more information at [email or web address]. We recommend that you complete the Advance Directive form found on the website and bring it with you the day of your surgery. It can be witnessed and scanned into your chart that day. Severiano Virk APRN.LILLY documented in this encounter [facility] 03-17-2024 Telephone encounter Note I discussed with the patient local topical wound care Recommend clean with sterile normal saline wound wash Use Honey (MEDIHONEY, HONEY,) 100 % paste topical Rx Cefadroxil (DURICEF) 500 mg capsule If not improved recommend follow up and further work up All questions were answered. Eulalia Fuentes DPM [facility] 03-17-2024 Miscellaneous Notes I discussed with the patient local topical wound care Recommend clean with sterile normal saline wound wash Use Honey (MEDIHONEY, HONEY,) 100 % paste topical Rx Cefadroxil (DURICEF) 500 mg capsule If not improved recommend follow up and further work up All questions were answered. Eulalia Fuentes DPM Gary is calling Eulalia Fuentes DPM today to request a knee scooter for after procedure. Pt also asking if office has submitted her SACHIN/ FMLA paperwork? Pt lastly wanting provider to know that one toe nail is healing nicely the other two still look to be infected. Pt states she will send photo in when able. Patient has been identified by name and birthdate. Duration of symptoms: N/A Person calling: self Call patient at: at home [phone] (home) [phone] (cell) Was an appointment scheduled: No Closing statement: Results or non-symptom based questions: Thank you for calling [facility], your call will be returned within the next business day. Darcie Henriquez documented in this encounter [facility] 03-17-2024 Telephone encounter Note Gary is calling Eulalia Fuentes DPM today to request a knee scooter for after procedure. Pt also asking if office has submitted her SACHIN/ FMLA paperwork? Pt lastly wanting provider to know that one toe nail is healing nicely the other two still look to be infected. Pt states she will send photo in when able. Patient has been identified by name and birthdate. Duration of symptoms: N/A Person calling: self Call patient at: at home [phone] (home) [phone] (cell) Was an appointment scheduled: No Closing statement: Results or non-symptom based questions: Thank you for calling [facility], your call will be returned within the next business day. Darcie Henriquez [facility] 03-11-2024 History of Presen t illness Narrative Program_ID:[id number] Access Code: [email or web address] URL: [email or web address] Date: 03-11-2024 Prepared By: Samara Greco Program Notes Patient Education - Walking with Crutches: Non Weight-Bearing - Going Up and Down Stairs With Crutches ([id number]) - cc Gait Training Crutches Non Weight Bearing NWB - cc Gait Safety Crutch Fitting Sizing Images from the original note were not included. Episode Visit Count: 1 Therapist That Will Accept/Oversee The Plan Of Care: Samara Greco Start of Care Date: 03/11/24 Onset Date: 03/11/20 Plan of Care Certification Date: 03/11/24 Next Certification Due Date: 05/10/24 Patient Identified by Name and Date of : Yes REHABILITATION AND SPORTS THERAPY PHYSICAL THERAPY EVALUATION PLAN OF CARE: Assessment: Gary Vigil presents pre-operatively for upcoming L ankle and foot reconstruction surgery 04/10/24 that interferes with walking, stair negotiation, physical activities . She presents with impairments in balance, gait, overall function, range of motion, and strength. PROMIS (Patient-Reported Outcomes Measurement Information System) scores were reviewed and identified as a rehabilitation concern. Prognosis for therapy is Good due to: current objective clinical presentation . Reviewed gait training through B axillary crutches with NWB restrictions. Reviewed stair training and crutch fitting. Encouraged consistent practice to aid in confidence post-operatively. She will benefit from skilled therapy services to meet the goals established for this plan of care as noted below. Patient's symptoms are predicted to improve appropriately with physical therapy. Pt has no comorbidities or personal factors that will affect their course of recovery. Evaluation required low decision making. Goals for Episode of Care: created on 03/11/24 through 03/11/24 Patient will demonstrate proper technique for bed mobility based on expected procedure and precautions. (met) Patient will demonstrate proper sit to stand transfer technique with front wheeled walker. (met) Patient will demonstrate proper gait sequence with B axillary crutches or most appropriate assistive device. (met) Patient will demonstrate safe stair negotiation with most appropriate assistive device to simulate home setup. (met) Patient will demonstrate knowledge of ice and elevation and all applicable precautions. (met) Patient Goals: to learn how to walk after surgery Planned Interventions, Frequency, and Duration: Current Frequency: Discontinue Therapy Services Duration: 1 visit Total Number of Visits Planned: 1 Planned Treatment Interventions: Therapeutic exercise (02684), Neuromuscular re-education (52269), Manual therapy (87072), Therapeutic activities (77681), Self-fci management (05555), Patient/Family/Caregiver Education, Body Mechanics Training, Gait Training (90741) PLAN FOR NEXT VISIT: Discharge pre-operatively. Provided handouts with HEP regarding education components today. Patient demonstrates good understanding of plan of care and treatment. The above goals and plan of care were discussed and agreed upon by patient/family. SUBJECTIVE: Pt presents today pre-operatively for ankle surgery on 04/07/24. She did have ankle surgery in 2019. She will be nonweightbearing initially following surgery. 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 Fuentes's office regarding script for equipment. Currently does not own any.) Intake Information: Prescription present Previous Treatment: None Falls Interview: No positive findings with falls interview Pain: Pain Pain Level: 7 Pain Location: Foot - Left Post Treatment Pain Post Treatment Pain Level: No Change PROMIS Scales 03/09/2024 03/02/2024 01/31/2024 Higher is Better Phys Func - Score 41 (mild dysfunction) 40 (mild dysfunction) Phys Func - Percentile 18 16 Self-Eff Symptom - Score 44 (Average) Self-Eff Symptom - Percentile 27 T-scores: mean of general population = 50. 5 points is clinically meaningfully difference Percentiles provide an indication of how the patient's score ranks in relation to the general population. Higher percentile rankings indicate better function/quality of life. 50th percentile is the average of the general population and indicates half of respondents had a worse score. OBJECTIVE MEASURES WITH LEVEL OF FUNCTION: LE AROM R Ankle Dorsiflexion: 10 Degrees R Ankle Plantar Flexion: 60 Degrees R Ankle Inversion: 35 R Ankle Eversion: 10 L Ankle Dorsiflexion: 10 Degrees L Ankle Plantar Flexion: 60 Degrees L Ankle Inversion: 35 L Ankle Eversion: 10 LE Strength R Hip Extension: 4/5 R Hip Flexion (L2): 4+/5 R Hip ABduction: 4/5 R Knee Extension (L3): 5/5 R Knee Flexion: 4+/5 R Ankle Dorsiflexion (L4): 4/5 R Ankle Plantar Flexion: 4/5 R Ankle Inversion: 4/5 R Ankle Eversion: 4/5 L Hip Extension: 4/5 L Hip Flexion (L2): 4/5 L Hip ABduction: 4/5 L Knee Extension (L3): 4/5 L Knee Flexion: 3+/5 L Ankle Dorsiflexion (L4): 4/5 L Ankle Plantar Flexion: 4/5 L Ankle Inversion: 4/5 L Ankle Eversion: 4/5 Gait Gait Observation: hip ER stance, WBOS, decreased heel strike and pushoff with ER stance Balance Static Standing Balance: Single Leg Stance Single Leg Stance: L: 3 seconds; R: 5 seconds Education: TREATMENT: PT Treatment Interventions: Gait Training, Self-Chcf Management Evaluation Evaluation Gait Training: Assistive Device: crutches, NWB Stair Training: ambulating NWB with crutches 1: gait practice ambulating NWB with B axillary crutches 2: discussed and reviewed appropriate AD setup Skilled Intervention: Facilitated proper gait cycle with the use of verbal and visual cues for correction of gait deviations identified in the objective section above. Skilled judgment used to assess selection, proper sizing, and proper use of assistive device. Education provided to patient regarding the proper sequence for stair negotiation. Provided written instruction for home program to facilitate proper performance and compliance. Self-Chcf Management: 1: reviewed precautions and NWB restrictions, home and AD setups Skilled Intervention: Skilled judgment in the selection of proper modification for activity of daily living/home management based on clinical presentation, deficits, and needs. Provided written instruction for activities of daily living techniques to facilitate proper performance and compliance. Reviewed patient specific diagnosis in relation to activities of daily living/home management. Billing * Evaluation Low Complexity: 1 Unit Self-Care/Home Management Treatment Minutes: 5 Gait Training Treatment Minutes: 20 Skilled Treatment Time Minutes (timed and untimed codes): 38 Total Session Time (minutes): 38 Session Start Time : 911 Session Stop Time : 0950 Samara Greco PT, DPT documented in this encounter [facility] 03-11-2024 Note HNO ID: [id number] Author: SAMARA GRECO PT, DPT Service: ? Author Type: Physical Therapist Type: Progress Notes Filed: 03/11/2024 09:54 Note Text: Episode Visit Count: 1 Therapist That Will Accept/Oversee The Plan Of Care: Samara Greco Start of Care Date: 03/11/24 Onset Date: 03/11/20 Plan of Care Certification Date: 03/11/24 Next Certification Due Date: 05/10/24 Patient Identified by Name and Date of : Yes REHABILITATION AND SPORTS THERAPY PHYSICAL THERAPY EVALUATION PLAN OF CARE: Assessment: Gary Vigil presents pre-operatively for upcoming L ankle and foot reconstruction surgery 04/10/24 that interferes with walking, stair negotiation, physical activities . She presents with impairments in balance, gait, overall function, range of motion, and strength. PROMIS? (Patient-Reported Outcomes Measurement Information System) scores were reviewed and identified as a rehabilitation concern. Prognosis for therapy is Good due to: current objective clinical presentation . Reviewed gait training through B axillary crutches with NWB restrictions. Reviewed stair training and crutch fitting. Encouraged consistent practice to aid in confidence post-operatively. She will benefit from skilled therapy services to meet the goals established for this plan of care as noted below. Patient's symptoms are predicted to improve appropriately with physical therapy. Pt has no comorbidities or personal factors that will affect their course of recovery. Evaluation required low decision making. Goals for Episode of Care: created on 03/11/24 through 03/11/24 Patient will demonstrate proper technique for bed mobility based on expected procedure and precautions. (met) Patient will demonstrate proper sit to stand transfer technique with front wheeled walker. (met) Patient will demonstrate proper gait sequence with B axillary crutches or most appropriate assistive device. (met) Patient will demonstrate safe stair negotiation with most appropriate assistive device to simulate home setup. (met) Patient will demonstrate knowledge of ice and elevation and all applicable precautions. (met) Patient Goals: to learn how to walk after surgery Planned Interventions, Frequency, and Duration: Current Frequency: Discontinue Therapy Services Duration: 1 visit Total Number of Visits Planned: 1 Planned Treatment Interventions: Therapeutic exercise (86956), Neuromuscular re-education (19325), Manual therapy (12968), Therapeutic activities (44866), Self-fci management (24418), Patient/Family/Caregiver Education, Body Mechanics Training, Gait Training (94776) PLAN FOR NEXT VISIT: Discharge pre-operatively. Provided handouts with HEP regarding education components today. Patient demonstrates good understanding of plan of care and treatment. The above goals and plan of care were discussed and agreed upon by patient/family. SUBJECTIVE: Pt presents today pre-operatively for ankle surgery on 04/07/24. She did have ankle surgery in 2019. She will be nonweightbearing initially following surgery. 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 Fuentes's office regarding script for equipment. Currently does not own any.) Intake Information: Prescription present Previous Treatment: None Falls Interview: No positive findings with falls interview Pain: Pain Pain Level: 7 Pain Location: Foot - Left Post Treatment Pain Post Treatment Pain Level: No Change PROMIS Scales 03/09/2024 03/02/2024 01/31/2024 Higher is Better Phys Func - Score 41 (mild dysfunction) 40 (mild dysfunction) Phys Func - Percentile 18 16 Self-Eff Symptom - Score 44 (Average) Self-Eff Symptom - Percentile 27 T-scores: mean of general population = 50. 5 points is clinically meaningfully difference Percentiles provide an indication of how the patient's score ranks in relation to the general population. Higher percentile rankings indicate better function/quality of life. 50th percentile is the average of the general population and indicates half of respondent (more content not included)... [facility] 03-09-2024 Note HNO ID: [id number] Author: EULALIA FUENTES DPM Service: ? Author Type: Physician Type: Progress Notes Filed: 03/09/2024 13:20 Note Text: Patient Visit for Gary Vigil 1985 38 year old female SUBJECTIVE: Chief Complaint: Patient presents with: Left Foot - Ingrown Toenail, Established Patient Right Foot - Ingrown Toenail, Established Patient Pain Scales: Verbal (Numeric Rating or Visual Analog Scale) Pain Level: 10 Pain Location: Foot-Left Description: Aching, Burning, Cramping, Cutting, Pressure, Sharp, Shooting, Sore, Stabbing, Throbbing, Tingling, Wound Duration Amount of Time: 10 Duration Units: Weeks Frequency: Continuous Intervention/Comfort measure: Medication, Massage, Support surface Comments: She is here for bilateral foot ingrown toe nail procedures. Additional HPI: Here today for ingrown toenail bilateral great toe medial and lateral border nail , RIGHT medial border nail third toe Additional Modifying factor: What makes better / worse: Chronic symptoms since teenager per patient PCP: No primary care provider on file. No past medical history on file. Current Outpatient Medications Medication Sig mupirocin (BACTROBAN) 2 % ointment Apply 1 application to affected area two times a day. acetaminophen (TYLENOL) 500 mg tablet take 2 tablets by mouth every 8 hours if needed VENTOLIN HFA 90 mcg/actuation inhaler inhale 2 puffs by mouth and INTO THE LUNGS every 4 hours if needed albuterol HFA (PROVENTIL HFA, VENTOLIN HFA) 90 mcg/actuation inhaler Inhale 2 Puffs as instructed every 6 hours as needed. amitriptyline (ELAVIL) 50 mg tablet Take 50 mg by mouth daily at bedtime. ONETOUCH ULTRA TEST test strip twice daily. TEST TWICE DAILY VRAYLAR 4.5 mg capsule take 1 take by mouth once daily citalopram (CELEXA) 20 mg tablet Take 20 mg by mouth daily at bedtime. FLOWFLEX COVID-19 AG HOME TEST kit doxycycline (VIBRA-TABS) 100 mg tablet take 1 tablet by mouth twice a day for 10 days etodolac (LODINE-XL) 500 mg 24 hr tablet take 1 tablet by mouth once daily NEEDED FOR PAIN with food FLOVENT HFA 110 mcg/actuation inhaler inhale 2 puffs by mouth and INTO THE LUNGS twice a day fluticasone (FLONASE) 50 mcg/actuation nasal spray instill 1 spray into each nostril twice a day furosemide (LASIX) 40 mg tablet take 1 tablet by mouth once daily if needed for SWELLING AJOVY AUTOINJECTOR 225 mg/1.5 mL auto-injector inject subcutaneously as directed loratadine (CLARITIN) 10 mg tablet Take 10 mg by mouth once daily. lidocaine (SALONPAS) 4 % patch Apply 1 Patch as directed q 24 HR. meloxicam (MOBIC) 15 mg tablet Take 15 mg by mouth once daily. montelukast (SINGULAIR) 10 mg tablet Take 10 mg by mouth. omeprazole (PRILOSEC) 20 mg capsule Take 20 mg by mouth once daily. potassium chloride ER (K-DUR, KLOR-CON) 20 mEq tablet Take 20 mEq by mouth. prazosin (MINIPRESS) 5 mg cap Take 5 mg by mouth once daily. pregabalin (LYRICA) 75 mg capsule Take 75 mg by mouth twice daily. propranolol ER (INDERAL LA) 80 mg 24 hr capsule Take 80 mg by mouth. risperiDONE (RISPERDAL) 1 mg tablet Take 1 mg by mouth twice daily. rizatriptan (MAXALT) 5 mg tablet take 1 tablet by mouth AT ONSET OF HEADACHE MAY TAKE A SECOND TAB... (REFER TO PRESCRIPTION NOTES). SUMAtriptan (IMITREX) 100 mg tablet take 1 tablet by mouth if needed to ABORT MIGRAINE once daily 30 DAY SUPPLY tiZANidine (ZANAFLEX) 4 mg tablet take 1 tablet by mouth AT 8PM EVERY NIGHT traZODone HCl 300 mg tablet Take 300 mg by mouth once daily. triamcinolone acetonide (NASACORT AQ) 55 mcg nasal inhaler Use 2 Sprays in the nose. verapamil SR (CALAN SR, ISOPTIN SR) 180 mg CR tablet Take 180 mg by mouth once daily. No current facility-administered medications for this visit. ALLERGIES Allergen Reactions Ketorolac Hives Prednisone Other: See Comments Tramadol Other: See Comments No past surgical history on file. No family history on file. Tobacco Use: Not on file REVIEW OF SYSTEMS: The remainder of the ROS was reviewed with the patient and is negative except as noted. OBJECTIVE: General: Pleasant in no acute distress Lower extremity exam: Vascular exam: Normal vascular exam, palpable pluses with brisk capillary fill Neurological exam: Unchanged from previous exam Dermatological exam: Bilateral great toe ingrown toenail medial and lateral border nail Ingrown toenail medial border nail third toenail Dystrophic toenails especially second toenail RIGHT FOOT Other Normal exam without rashes or lesions of skin. No evidence of evidence of petechiae, purpura, telangiectasia Musculoskeletal exam: Unchanged from previous exam LABS: Most recent labs reviewed LABORATORY STUDIES: No results for input(s): HB , WBC , PLT , WSR , CRP , CCPABG , RF , INR , CREATININE , ALB , PROT , URICACID , HBA1C , VITD25 in the last 19998 hours. ASSESSMENT: L60.0 Ingrown toenail (primary en (more content not included)... [facility] 03-09-2024 History of Presen t illness Narrative Patient Visit for Gary Vigil 1985 38 year old female SUBJECTIVE: Chief Complaint: Patient presents with: Left Foot - Ingrown Toenail, Established Patient Right Foot - Ingrown Toenail, Established Patient Pain Scales: Verbal (Numeric Rating or Visual Analog Scale) Pain Level: 10 Pain Location: Foot-Left Description: Aching, Burning, Cramping, Cutting, Pressure, Sharp, Shooting, Sore, Stabbing, Throbbing, Tingling, Wound Duration Amount of Time: 10 Duration Units: Weeks Frequency: Continuous Intervention/Comfort measure: Medication, Massage, Support surface Comments: She is here for bilateral foot ingrown toe nail procedures. Additional HPI: Here today for ingrown toenail bilateral great toe medial and lateral border nail , RIGHT medial border nail third toe Additional Modifying factor: What makes better / worse: Chronic symptoms since teenager per patient PCP: No primary care provider on file. No past medical history on file. Current Outpatient Medications Medication Sig mupirocin (BACTROBAN) 2 % ointment Apply 1 application to affected area two times a day. acetaminophen (TYLENOL) 500 mg tablet take 2 tablets by mouth every 8 hours if needed VENTOLIN HFA 90 mcg/actuation inhaler inhale 2 puffs by mouth and INTO THE LUNGS every 4 hours if needed albuterol HFA (PROVENTIL HFA, VENTOLIN HFA) 90 mcg/actuation inhaler Inhale 2 Puffs as instructed every 6 hours as needed. amitriptyline (ELAVIL) 50 mg tablet Take 50 mg by mouth daily at bedtime. ONETOUCH ULTRA TEST test strip twice daily. TEST TWICE DAILY VRAYLAR 4.5 mg capsule take 1 take by mouth once daily citalopram (CELEXA) 20 mg tablet Take 20 mg by mouth daily at bedtime. FLOWFLEX COVID-19 AG HOME TEST kit doxycycline (VIBRA-TABS) 100 mg tablet take 1 tablet by mouth twice a day for 10 days etodolac (LODINE-XL) 500 mg 24 hr tablet take 1 tablet by mouth once daily NEEDED FOR PAIN with food FLOVENT HFA 110 mcg/actuation inhaler inhale 2 puffs by mouth and INTO THE LUNGS twice a day fluticasone (FLONASE) 50 mcg/actuation nasal spray instill 1 spray into each nostril twice a day furosemide (LASIX) 40 mg tablet take 1 tablet by mouth once daily if needed for SWELLING [employer]OV[employer]OINJECTOR 225 mg/1.5 mL auto-injector inject subcutaneously as directed loratadine (CLARITIN) 10 mg tablet Take 10 mg by mouth once daily. lidocaine (SALONPAS) 4 % patch Apply 1 Patch as directed q 24 HR. meloxicam (MOBIC) 15 mg tablet Take 15 mg by mouth once daily. montelukast (SINGULAIR) 10 mg tablet Take 10 mg by mouth. omeprazole (PRILOSEC) 20 mg capsule Take 20 mg by mouth once daily. potassium chloride ER (K-DUR, KLOR-CON) 20 mEq tablet Take 20 mEq by mouth. prazosin (MINIPRESS) 5 mg cap Take 5 mg by mouth once daily. pregabalin (LYRICA) 75 mg capsule Take 75 mg by mouth twice daily. propranolol ER (INDERAL LA) 80 mg 24 hr capsule Take 80 mg by mouth. risperiDONE (RISPERDAL) 1 mg tablet Take 1 mg by mouth twice daily. rizatriptan (MAXALT) 5 mg tablet take 1 tablet by mouth AT ONSET OF HEADACHE MAY TAKE A SECOND TAB... (REFER TO PRESCRIPTION NOTES). SUMAtriptan (IMITREX) 100 mg tablet take 1 tablet by mouth if needed to ABORT MIGRAINE once daily 30 DAY SUPPLY tiZANidine (ZANAFLEX) 4 mg tablet take 1 tablet by mouth AT 8PM EVERY NIGHT traZODone HCl 300 mg tablet Take 300 mg by mouth once daily. triamcinolone acetonide (NASACORT AQ) 55 mcg nasal inhaler Use 2 Sprays in the nose. verapamil SR (CALAN SR, ISOPTIN SR) 180 mg CR tablet Take 180 mg by mouth once daily. No current facility-administered medications for this visit. ALLERGIES Allergen Reactions Ketorolac Hives Prednisone Other: See Comments Tramadol Other: See Comments No past surgical history on file. No family history on file. Tobacco Use: Not on file REVIEW OF SYSTEMS: The remainder of the ROS was reviewed with the patient and is negative except as noted. OBJECTIVE: General: Pleasant in no acute distress Lower extremity exam: Vascular exam: Normal vascular exam, palpable pluses with brisk capillary fill Neurological exam: Unchanged from previous exam Dermatological exam: Bilateral great toe ingrown toenail medial and lateral border nail Ingrown toenail medial border nail third toenail Dystrophic toenails especially second toenail RIGHT FOOT Other Normal exam without rashes or lesions of skin. No evidence of evidence of petechiae, purpura, telangiectasia Musculoskeletal exam: Unchanged from previous exam LABS: Most recent labs reviewed LABORATORY STUDIES: No results for input(s): HB , WBC , PLT , WSR , CRP , CCPABG , RF , INR , CREATININE , ALB , PROT , URICACID , HBA1C , VITD25 in the last 12496 hours. 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 After a discussion of the options, the patient elects to proceed with a total permanent partial nail procedure today under local digital block. Planned procedure discussed with the patient at length including risks benefits and alternatives relative to procedure. All questions were answered. Patient requests to proceed and gave verbal consent. A digital block was performed to offending toes using a total of 10ccs of 2% Lidocaine plain. After a betadine prep, a digital tourniquet was applied. Attention was directed to the LEFT great toenail , RIGHT great toenail , lateral border nail third toenail where the patient has noted complaints. A blunt elevator was used to free the nail from the underlying nail bed. The offending nail borders were then surgically excised. A curette was used further remove any additional local nail plate spicules. The nail matrix was also debrided with a currette. Surrounding hypertrophic dermal tissue was removed with a tissue nipper. A phenol swab was applied to the nail matrix area and nail border for 3 applications of 30 seconds each toenail border. The tourniquet was released and capillary refill returned to the digit immediately. Irrigation was then performed using copious amounts of sterile saline. Wound dressed with sterile normal saline dressing and Coban self-adherent wrap Home going instructions were dispensed. Patient is to RTC: 2 weeks. All questions were answered. Gary Vigil appeared to be well informed. Greater than 50% of the visit was spent face to face counseling and/or coordinating care for the patient. Eulalia Fuentes DPM documented in this encounter [facility] 02-04-2024 Note HNO ID: [id number] Author: EULALIA FUENTES DPM Service: ? Author Type: Physician Type: Progress Notes Filed: 02/04/2024 17:18 Note Text: Patient called Requests overnight stay Not indicated at this time - should be out patient Recommend physical therapy for NWB (Non Weight Bearing) gait training Order placed Eulalia Fuentes DPM [facility] 02-04-2024 History of Presen t illness Narrative Patient called Requests overnight stay \ Not indicated at this time - should be out patient Recommend physical therapy for NWB (Non Weight Bearing) gait training Order placed Eulalia Fuentes DPM documented in this encounter [facility] 02-04-2024 Miscellaneous Notes Spoke with patient and scheduled surgery with Dr. Fuentes on 04/10/24. Patient stated she needed to be in the hospital for 24hrs. I explained to patient that [place] was an outpatient surgery center and advised her to discuss with Dr. Fuentes. Gave patient direct phone numbers. [phone] or [phone] documented in this encounter [facility] 02-03-2024 Note HNO ID: [id number] Author: EULALIA FUENTES DPM Service: ? Author Type: Physician Type: Progress Notes Filed: 02/03/2024 14:11 Note Text: Patient Visit for Gary Vigil 1985 38 year old female Date of Service: February 03, 2024 SUBJECTIVE: Chief Complaint: Patient presents with: Left Foot - Established Patient, Follow Up, Pain /Pain Scales: Verbal (Numeric Rating or Visual Analog Scale) Pain Level: 10 Pain Location: Foot-Left Description: Aching, Cramping, Pressure, Sharp, Shooting, Sore, Stabbing, Throbbing Duration Amount of Time: 10 Duration Units: Months Frequency: Continuous Intervention/Comfort measure: Support surface Comments: She is here for a left foot surgical consultation. Additional HPI: Chief complaint today very painful hyperkeratosis plantar lateral LEFT forefoot Difficulty walking She works at [employer] on feet at work all day Altered gait Pes plano valgus deformity symptoms Also complains of pain related to ingrown toenails great toe bilateral and medial border nail third toe RIGHT FOOT Other Very complicated history of LEFT lower extremity symptoms with multiple surgeries Gary has had symptoms of her left foot for over 15 years states she was initially treated in [place]. In 2018 she moved to [place] was seen by Dr. Shad Jacques Previous records are unavailable for review She has some type of forefoot surgery in 2020 later had removal of hardware that was previously placed and underwent tarsal tunnel surgery as well as what appears to be decompression of her common peroneal nerve at the level of the knee patient states she had no improvement she was walking with a varus deformity and follow-up MRI She is also been seen by Dr. Sheng Covington DPM at [facility] She is wearing slippers today PCP: No primary care provider on file. No past medical history on file. Current Outpatient Medications Medication Sig acetaminophen (TYLENOL) 500 mg tablet take 2 tablets by mouth every 8 hours if needed VENTOLIN HFA 90 mcg/actuation inhaler inhale 2 puffs by mouth and INTO THE LUNGS every 4 hours if needed albuterol HFA (PROVENTIL HFA, VENTOLIN HFA) 90 mcg/actuation inhaler Inhale 2 Puffs as instructed every 6 hours as needed. amitriptyline (ELAVIL) 50 mg tablet Take 50 mg by mouth daily at bedtime. Three RingsTOUCH ULTRA TEST test strip twice daily. TEST TWICE DAILY VRAYLAR 4.5 mg capsule take 1 take by mouth once daily citalopram (CELEXA) 20 mg tablet Take 20 mg by mouth daily at bedtime. FLOWFLEX COVID-19 AG HOME TEST kit doxycycline (VIBRA-TABS) 100 mg tablet take 1 tablet by mouth twice a day for 10 days etodolac (LODINE-XL) 500 mg 24 hr tablet take 1 tablet by mouth once daily NEEDED FOR PAIN with food FLOVENT HFA 110 mcg/actuation inhaler inhale 2 puffs by mouth and INTO THE LUNGS twice a day fluticasone (FLONASE) 50 mcg/actuation nasal spray instill 1 spray into each nostril twice a day furosemide (LASIX) 40 mg tablet take 1 tablet by mouth once daily if needed for SWELLING [employer]OV[employer]OINJECTOR 225 mg/1.5 mL auto-injector inject subcutaneously as directed loratadine (CLARITIN) 10 mg tablet Take 10 mg by mouth once daily. lidocaine (SALONPAS) 4 % patch Apply 1 Patch as directed q 24 HR. meloxicam (MOBIC) 15 mg tablet Take 15 mg by mouth once daily. montelukast (SINGULAIR) 10 mg tablet Take 10 mg by mouth. omeprazole (PRILOSEC) 20 mg capsule Take 20 mg by mouth once daily. potassium chloride ER (K-DUR, KLOR-CON) 20 mEq tablet Take 20 mEq by mouth. prazosin (MINIPRESS) 5 mg cap Take 5 mg by mouth once daily. pregabalin (LYRICA) 75 mg capsule Take 75 mg by mouth twice daily. propranolol ER (INDERAL LA) 80 mg 24 hr capsule Take 80 mg by mouth. risperiDONE (RISPERDAL) 1 mg tablet Take 1 mg by mouth twice daily. rizatriptan (MAXALT) 5 mg tablet take 1 tablet by mouth AT ONSET OF HEADACHE MAY TAKE A SECOND TAB... (REFER TO PRESCRIPTION NOTES). SUMAtriptan (IMITREX) 100 mg tablet take 1 tablet by mouth if needed to ABORT MIGRAINE once daily 30 DAY SUPPLY tiZANidine (ZANAFLEX) 4 mg tablet take 1 tablet by mouth AT 8PM EVERY NIGHT traZODone HCl 300 mg tablet Take 300 mg by mouth once daily. triamcinolone acetonide (NASACORT AQ) 55 mcg nasal inhaler Use 2 Sprays in the nose. verapamil SR (CALAN SR, ISOPTIN SR) 180 mg CR tablet Take 180 mg by mouth once daily. No current facility-administered medications for this visit. ALLERGIES Allergen Reactions Ketorolac Hives Prednisone Other: See Comments Tramadol Other: See Comments No past surgical history on file. No family history on file. Tobacco Use: Not on file REVIEW OF SYSTEMS: The remainder of the ROS was reviewed with the patient and is negative except as noted. OBJECTIVE: General: Pleasant in no acute distress Lower extremity exam: Vascular exam: Normal vascular exam, palpable pluses with brisk capillary fill Neurological (more content not included)... [facility] 02-03-2024 History of Presen t illness Narrative Patient Visit for Gary Vigil 1985 38 year old female Date of Service: February 03, 2024 SUBJECTIVE: Chief Complaint: Patient presents with: Left Foot - Established Patient, Follow Up, Pain /Pain Scales: Verbal (Numeric Rating or Visual Analog Scale) Pain Level: 10 Pain Location: Foot-Left Description: Aching, Cramping, Pressure, Sharp, Shooting, Sore, Stabbing, Throbbing Duration Amount of Time: 10 Duration Units: Months Frequency: Continuous Intervention/Comfort measure: Support surface Comments: She is here for a left foot surgical consultation. Additional HPI: Chief complaint today very painful hyperkeratosis plantar lateral LEFT forefoot Difficulty walking She works at [employer] at work all day Altered gait Pes plano valgus deformity symptoms Also complains of pain related to ingrown toenails great toe bilateral and medial border nail third toe RIGHT FOOT Other Very complicated history of LEFT lower extremity symptoms with multiple surgeries Gary has had symptoms of her left foot for over 15 years states she was initially treated in [place]. In 2018 she moved to [place] was seen by Dr. Shad Jacques Previous records are unavailable for review She has some type of forefoot surgery in 2020 later had removal of hardware that was previously placed and underwent tarsal tunnel surgery as well as what appears to be decompression of her common peroneal nerve at the level of the knee patient states she had no improvement she was walking with a varus deformity and follow-up MRI She is also been seen by Dr. Sheng Covington DPM at [facility] She is wearing slippers today PCP: No primary care provider on file. No past medical history on file. Current Outpatient Medications Medication Sig acetaminophen (TYLENOL) 500 mg tablet take 2 tablets by mouth every 8 hours if needed VENTOLIN HFA 90 mcg/actuation inhaler inhale 2 puffs by mouth and INTO THE LUNGS every 4 hours if needed albuterol HFA (PROVENTIL HFA, VENTOLIN HFA) 90 mcg/actuation inhaler Inhale 2 Puffs as instructed every 6 hours as needed. amitriptyline (ELAVIL) 50 mg tablet Take 50 mg by mouth daily at bedtime. Green Is Good ULTRA TEST test strip twice daily. TEST TWICE DAILY VRAYLAR 4.5 mg capsule take 1 take by mouth once daily citalopram (CELEXA) 20 mg tablet Take 20 mg by mouth daily at bedtime. FLOWFLEX COVID-19 AG HOME TEST kit doxycycline (VIBRA-TABS) 100 mg tablet take 1 tablet by mouth twice a day for 10 days etodolac (LODINE-XL) 500 mg 24 hr tablet take 1 tablet by mouth once daily NEEDED FOR PAIN with food FLOVENT HFA 110 mcg/actuation inhaler inhale 2 puffs by mouth and INTO THE LUNGS twice a day fluticasone (FLONASE) 50 mcg/actuation nasal spray instill 1 spray into each nostril twice a day furosemide (LASIX) 40 mg tablet take 1 tablet by mouth once daily if needed for SWELLING AJOVY AUTOINJECTOR 225 mg/1.5 mL auto-injector inject subcutaneously as directed loratadine (CLARITIN) 10 mg tablet Take 10 mg by mouth once daily. lidocaine (SALONPAS) 4 % patch Apply 1 Patch as directed q 24 HR. meloxicam (MOBIC) 15 mg tablet Take 15 mg by mouth once daily. montelukast (SINGULAIR) 10 mg tablet Take 10 mg by mouth. omeprazole (PRILOSEC) 20 mg capsule Take 20 mg by mouth once daily. potassium chloride ER (K-DUR, KLOR-CON) 20 mEq tablet Take 20 mEq by mouth. prazosin (MINIPRESS) 5 mg cap Take 5 mg by mouth once daily. pregabalin (LYRICA) 75 mg capsule Take 75 mg by mouth twice daily. propranolol ER (INDERAL LA) 80 mg 24 hr capsule Take 80 mg by mouth. risperiDONE (RISPERDAL) 1 mg tablet Take 1 mg by mouth twice daily. rizatriptan (MAXALT) 5 mg tablet take 1 tablet by mouth AT ONSET OF HEADACHE MAY TAKE A SECOND TAB... (REFER TO PRESCRIPTION NOTES). SUMAtriptan (IMITREX) 100 mg tablet take 1 tablet by mouth if needed to ABORT MIGRAINE once daily 30 DAY SUPPLY tiZANidine (ZANAFLEX) 4 mg tablet take 1 tablet by mouth AT 8PM EVERY NIGHT traZODone HCl 300 mg tablet Take 300 mg by mouth once daily. triamcinolone acetonide (NASACORT AQ) 55 mcg nasal inhaler Use 2 Sprays in the nose. verapamil SR (CALAN SR, ISOPTIN SR) 180 mg CR tablet Take 180 mg by mouth once daily. No current facility-administered medications for this visit. ALLERGIES Allergen Reactions Ketorolac Hives Prednisone Other: See Comments Tramadol Other: See Comments No past surgical history on file. No family history on file. Tobacco Use: Not on file REVIEW OF SYSTEMS: The remainder of the ROS was reviewed with the patient and is negative except as noted. OBJECTIVE: General: Pleasant in no acute distress Lower extremity exam: Vascular exam: Normal vascular exam, palpable pluses with brisk capillary fill Neurological exam: Mixed distribution loss of sensation LEFT lower extremity Paresthesias No significant pain out of proportion Gross epicritic sensation intact Dermatological exam: See Epic photo: November 01, 2023 / similar to photo recurrent unchanged Tenderness to palpation at site of hyperkeratosis plantar lateral LEFT FOOT Deep Hyperkeratosis plantar fourth metatarsal head area with evidence of previous surgical scars significant tenderness to palpation Well healed scars from previous surgery forefoot and near common peroneal nerve LEFT near fibular neck Other Normal exam without rashes or lesions of skin. 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 Hyperkeratosis plantar great toe and lateral LEFT forefoot removed with scalpel blade In order to perform a complete physical exam, limited shaving of above areas area was performed. This incidental service is integral to the evaluation and management visit in order to appropriately manage and treat the patient (for their complaint or for this visit). 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 Gary Vigil appeared to be well informed. Greater than 50% of the visit was spent face to face counseling and/or coordinating care for the patient. Eulalia Fuentes DPM documented in this encounter [facility] 01-14-2024 Miscellaneous Notes Called patient and informed her is out of the office. She states she has an appointment for a follow 02/03/24 but is eager to be scheduled for surgery as she knows he is booking a few months out. Patient also states she will have to stay in the hospital for 24 hours after her surgery. Gary is calling Eulalia Fuentes DPM today to request Schedule Surgery Patient calling to request to be contacted as soon as possible to schedule surgery. Please call patient at cell number. Patient has been identified by name and birthdate. Person calling: self Call patient at: on cell [phone] (cell) Was an appointment scheduled: No Closing statement: Results or non-symptom based questions: Thank you for calling [facility], your call will be returned within the next business day. Samantha Pires documented in this encounter [facility] 01-03-2024 Note HNO ID: [id number] Author: EULALIA FUENTES DPM Service: ? Author Type: Physician Type: Progress Notes Filed: 01/22/2024 15:24 Note Text: Patient Visit for Gary Mathews Vigil 1985 38 year old female Date of Service: January 03, 2024 SUBJECTIVE: Chief Complaint: Date of Service: January 03, 2024 Additional HPI: Chief complaint today very painful hyperkeratosis plantar lateral LEFT forefoot Difficulty walking She works at [employer] at work all day Altered gait Pes plano valgus deformity symptoms Other Very complicated history of LEFT lower extremity symptoms with multiple surgeries Gary has had symptoms of her left foot for over 15 years states she was initially treated in [place]. In 2018 she moved to [place] was seen by Dr. Shad Jacques Previous records are unavailable for review She has some type of forefoot surgery in 2020 later had removal of hardware that was previously placed and underwent tarsal tunnel surgery as well as what appears to be decompression of her common peroneal nerve at the level of the knee patient states she had no improvement she was walking with a varus deformity and follow-up MRI She is also been seen by Dr. Sheng Covington DPM at [facility] She is wearing slippers today PCP: No primary care provider on file. No past medical history on file. Current Outpatient Medications Medication Sig acetaminophen (TYLENOL) 500 mg tablet take 2 tablets by mouth every 8 hours if needed VENTOLIN HFA 90 mcg/actuation inhaler inhale 2 puffs by mouth and INTO THE LUNGS every 4 hours if needed albuterol HFA (PROVENTIL HFA, VENTOLIN HFA) 90 mcg/actuation inhaler Inhale 2 Puffs as instructed every 6 hours as needed. amitriptyline (ELAVIL) 50 mg tablet Take 50 mg by mouth daily at bedtime. ONETOUCH ULTRA TEST test strip twice daily. TEST TWICE DAILY VRAYLAR 4.5 mg capsule take 1 take by mouth once daily citalopram (CELEXA) 20 mg tablet Take 20 mg by mouth daily at bedtime. FLOWFLEX COVID-19 AG HOME TEST kit doxycycline (VIBRA-TABS) 100 mg tablet take 1 tablet by mouth twice a day for 10 days etodolac (LODINE-XL) 500 mg 24 hr tablet take 1 tablet by mouth once daily NEEDED FOR PAIN with food FLOVENT HFA 110 mcg/actuation inhaler inhale 2 puffs by mouth and INTO THE LUNGS twice a day fluticasone (FLONASE) 50 mcg/actuation nasal spray instill 1 spray into each nostril twice a day furosemide (LASIX) 40 mg tablet take 1 tablet by mouth once daily if needed for SWELLING [employer]OVY AUTOINJECTOR 225 mg/1.5 mL auto-injector inject subcutaneously as directed loratadine (CLARITIN) 10 mg tablet Take 10 mg by mouth once daily. lidocaine (SALONPAS) 4 % patch Apply 1 Patch as directed q 24 HR. meloxicam (MOBIC) 15 mg tablet Take 15 mg by mouth once daily. montelukast (SINGULAIR) 10 mg tablet Take 10 mg by mouth. omeprazole (PRILOSEC) 20 mg capsule Take 20 mg by mouth once daily. potassium chloride ER (K-DUR, KLOR-CON) 20 mEq tablet Take 20 mEq by mouth. prazosin (MINIPRESS) 5 mg cap Take 5 mg by mouth once daily. pregabalin (LYRICA) 75 mg capsule Take 75 mg by mouth twice daily. propranolol ER (INDERAL LA) 80 mg 24 hr capsule Take 80 mg by mouth. risperiDONE (RISPERDAL) 1 mg tablet Take 1 mg by mouth twice daily. rizatriptan (MAXALT) 5 mg tablet take 1 tablet by mouth AT ONSET OF HEADACHE MAY TAKE A SECOND TAB... (REFER TO PRESCRIPTION NOTES). SUMAtriptan (IMITREX) 100 mg tablet take 1 tablet by mouth if needed to ABORT MIGRAINE once daily 30 DAY SUPPLY tiZANidine (ZANAFLEX) 4 mg tablet take 1 tablet by mouth AT 8PM EVERY NIGHT traZODone HCl 300 mg tablet Take 300 mg by mouth once daily. triamcinolone acetonide (NASACORT AQ) 55 mcg nasal inhaler Use 2 Sprays in the nose. verapamil SR (CALAN SR, ISOPTIN SR) 180 mg CR tablet Take 180 mg by mouth once daily. No current facility-administered medications for this visit. ALLERGIES Allergen Reactions Ketorolac Hives Prednisone Other: See Comments Tramadol Other: See Comments No past surgical history on file. No family history on file. Tobacco Use: Not on file REVIEW OF SYSTEMS: The remainder of the ROS was reviewed with the patient and is negative except as noted. OBJECTIVE: General: Pleasant in no acute distress Lower extremity exam: Vascular exam: Normal vascular exam, palpable pluses with brisk capillary fill Neurological exam: Mixed distribution loss of sensation LEFT lower extremity Paresthesias No significant pain out of proportion Gross epicritic sensation intact Dermatological exam: See Epic photo: November 01, 2023 Thick yellow crumbling and dystrophic second toenails bilateral consistent with onychomycosis Hyperkeratosis plantar great toe bilateral with tenderness to palpation Deep Hyperkeratosis plantar fourth metatarsal head area with evidence of previous surgical scars significant tenderness to palpation Well healed scars (more content not included)... [facility] 01-03-2024 History of Presen t illness Narrative Patient Visit for Gary Vigil 1985 38 year old female Date of Service: January 03, 2024 SUBJECTIVE: Chief Complaint: Date of Service: January 03, 2024 Additional HPI: Chief complaint today very painful hyperkeratosis plantar lateral LEFT forefoot Difficulty walking She works at [employer] at work all day Altered gait Pes plano valgus deformity symptoms Other Very complicated history of LEFT lower extremity symptoms with multiple surgeries Gary has had symptoms of her left foot for over 15 years states she was initially treated in [place]. In 2018 she moved to [place] was seen by Dr. 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 Sheng Covington DPM at [facility] She is wearing slippers today PCP: No primary care provider on file. No past medical history on file. Current Outpatient Medications Medication Sig acetaminophen (TYLENOL) 500 mg tablet take 2 tablets by mouth every 8 hours if needed VENTOLIN HFA 90 mcg/actuation inhaler inhale 2 puffs by mouth and INTO THE LUNGS every 4 hours if needed albuterol HFA (PROVENTIL HFA, VENTOLIN HFA) 90 mcg/actuation inhaler Inhale 2 Puffs as instructed every 6 hours as needed. amitriptyline (ELAVIL) 50 mg tablet Take 50 mg by mouth daily at bedtime. Green Is Good ULTRA TEST test strip twice daily. TEST TWICE DAILY VRAYLAR 4.5 mg capsule take 1 take by mouth once daily citalopram (CELEXA) 20 mg tablet Take 20 mg by mouth daily at bedtime. FLOWFLEX COVID-19 AG HOME TEST kit doxycycline (VIBRA-TABS) 100 mg tablet take 1 tablet by mouth twice a day for 10 days etodolac (LODINE-XL) 500 mg 24 hr tablet take 1 tablet by mouth once daily NEEDED FOR PAIN with food FLOVENT HFA 110 mcg/actuation inhaler inhale 2 puffs by mouth and INTO THE LUNGS twice a day fluticasone (FLONASE) 50 mcg/actuation nasal spray instill 1 spray into each nostril twice a day furosemide (LASIX) 40 mg tablet take 1 tablet by mouth once daily if needed for SWELLING [employer]OV[employer]OINJECTOR 225 mg/1.5 mL auto-injector inject subcutaneously as directed loratadine (CLARITIN) 10 mg tablet Take 10 mg by mouth once daily. lidocaine (SALONPAS) 4 % patch Apply 1 Patch as directed q 24 HR. meloxicam (MOBIC) 15 mg tablet Take 15 mg by mouth once daily. montelukast (SINGULAIR) 10 mg tablet Take 10 mg by mouth. omeprazole (PRILOSEC) 20 mg capsule Take 20 mg by mouth once daily. potassium chloride ER (K-DUR, KLOR-CON) 20 mEq tablet Take 20 mEq by mouth. prazosin (MINIPRESS) 5 mg cap Take 5 mg by mouth once daily. pregabalin (LYRICA) 75 mg capsule Take 75 mg by mouth twice daily. propranolol ER (INDERAL LA) 80 mg 24 hr capsule Take 80 mg by mouth. risperiDONE (RISPERDAL) 1 mg tablet Take 1 mg by mouth twice daily. rizatriptan (MAXALT) 5 mg tablet take 1 tablet by mouth AT ONSET OF HEADACHE MAY TAKE A SECOND TAB... (REFER TO PRESCRIPTION NOTES). SUMAtriptan (IMITREX) 100 mg tablet take 1 tablet by mouth if needed to ABORT MIGRAINE once daily 30 DAY SUPPLY tiZANidine (ZANAFLEX) 4 mg tablet take 1 tablet by mouth AT 8PM EVERY NIGHT traZODone HCl 300 mg tablet Take 300 mg by mouth once daily. triamcinolone acetonide (NASACORT AQ) 55 mcg nasal inhaler Use 2 Sprays in the nose. verapamil SR (CALAN SR, ISOPTIN SR) 180 mg CR tablet Take 180 mg by mouth once daily. No current facility-administered medications for this visit. ALLERGIES Allergen Reactions Ketorolac Hives Prednisone Other: See Comments Tramadol Other: See Comments No past surgical history on file. No family history on file. Tobacco Use: Not on file REVIEW OF SYSTEMS: The remainder of the ROS was reviewed with the patient and is negative except as noted. OBJECTIVE: General: Pleasant in no acute distress Lower extremity exam: Vascular exam: Normal vascular exam, palpable pluses with brisk capillary fill Neurological exam: Mixed distribution loss of sensation LEFT lower extremity Paresthesias No significant pain out of proportion Gross epicritic sensation intact Dermatological exam: See Epic photo: November 01, 2023 Thick yellow crumbling and dystrophic second toenails bilateral consistent with onychomycosis Hyperkeratosis plantar great toe bilateral with tenderness to palpation Deep Hyperkeratosis plantar fourth metatarsal head area with evidence of previous surgical scars significant tenderness to palpation Well healed scars from previous surgery forefoot and near common peroneal nerve LEFT near fibular neck Other Normal exam without rashes or lesions of skin. 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 Hyperkeratosis plantar great toe and lateral LEFT forefoot removed with scalpel blade In order to perform a complete physical exam, limited shaving of above areas area was performed. This incidental service is integral to the evaluation and management visit in order to appropriately manage and treat the patient (for their complaint or for this visit). Also hyperkeratosis great toe RIGHT FOOT medial CeraVe topical diabetic cream emollient twice daily recommended Or equivalent All questions were answered. Gary Vigil appeared to be well informed. Greater than 50% of the visit was spent face to face counseling and/or coordinating care for the patient. Eulalia Fuentes DPM documented in this encounter [facility] 11-01-2023 Note HNO ID: [id number] Author: Eulalia Fuentes DPM Service: ? Author Type: Physician Type: Progress Notes Filed: 11/01/2023 4:45 PM Note Text: Patient Visit for Gary Vigil 1985 38 year old female Date of Service: November 01, 2023 SUBJECTIVE: Chief Complaint: Patient presents with: Left Foot - Established Patient, Follow Up, Pain /Pain Scales: Verbal (Numeric Rating or Visual Analog Scale) Pain Level: 10 Pain Location: (left foot and ankle) Description: Aching, Pressure, Sharp, Shooting, Sore Duration Units: Months Frequency: Continuous Comments: She is here for a follow up left foot and ankle pain. Pain increase with walking and standing. Additional HPI: Chief complaint today very painful hyperkeratosis plantar lateral LEFT forefoot Difficulty walking She works at [employer] at work all day Altered gait Pes plano valgus deformity symptoms Other Very complicated history of LEFT lower extremity symptoms with multiple surgeries Gary has had symptoms of her left foot for over 15 years states she was initially treated in [place]. In 2018 she moved to [place] was seen by Dr. 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 Sheng Covington DPM at [facility] She is wearing slippers today PCP: No primary care provider on file. No past medical history on file. Current Outpatient Medications Medication Sig acetaminophen (TYLENOL) 500 mg tablet take 2 tablets by mouth every 8 hours if needed VENTOLIN HFA 90 mcg/actuation inhaler inhale 2 puffs by mouth and INTO THE LUNGS every 4 hours if needed albuterol HFA (PROVENTIL HFA, VENTOLIN HFA) 90 mcg/actuation inhaler Inhale 2 Puffs as instructed every 6 hours as needed. metFORMIN (GLUCOPHAGE) 1,000 mg tablet Take 1,000 mg by mouth twice daily with meals. amitriptyline (ELAVIL) 50 mg tablet Take 50 mg by mouth daily at bedtime. Biotin 10,000 mcg cap Take 1 capsule by mouth once daily. ONETOUCH ULTRA TEST test strip twice daily. TEST TWICE DAILY VRAYLAR 4.5 mg capsule take 1 take by mouth once daily cholecalciferol, Vitamin D3, (VITAMIN D3) 1,250 mcg (50,000 unit) cap capsule One capsule weekly for 8 weeks then q.month citalopram (CELEXA) 20 mg tablet Take 20 mg by mouth daily at bedtime. FLOWFLEX COVID-19 AG HOME TEST kit doxycycline (VIBRA-TABS) 100 mg tablet take 1 tablet by mouth twice a day for 10 days etodolac (LODINE-XL) 500 mg 24 hr tablet take 1 tablet by mouth once daily NEEDED FOR PAIN with food FLOVENT HFA 110 mcg/actuation inhaler inhale 2 puffs by mouth and INTO THE LUNGS twice a day fluticasone (FLONASE) 50 mcg/actuation nasal spray instill 1 spray into each nostril twice a day furosemide (LASIX) 40 mg tablet take 1 tablet by mouth once daily if needed for SWELLING [employer]OV[employer]OINJECTOR 225 mg/1.5 mL auto-injector inject subcutaneously as directed loratadine (CLARITIN) 10 mg tablet Take 10 mg by mouth once daily. lidocaine (SALONPAS) 4 % patch Apply 1 Patch as directed q 24 HR. meloxicam (MOBIC) 15 mg tablet Take 15 mg by mouth once daily. montelukast (SINGULAIR) 10 mg tablet Take 10 mg by mouth. omeprazole (PRILOSEC) 20 mg capsule Take 20 mg by mouth once daily. potassium chloride ER (K-DUR, KLOR-CON) 20 mEq tablet Take 20 mEq by mouth. prazosin (MINIPRESS) 5 mg cap Take 5 mg by mouth once daily. pregabalin (LYRICA) 75 mg capsule Take 75 mg by mouth twice daily. propranolol ER (INDERAL LA) 80 mg 24 hr capsule Take 80 mg by mouth. risperiDONE (RISPERDAL) 1 mg tablet Take 1 mg by mouth twice daily. rizatriptan (MAXALT) 5 mg tablet take 1 tablet by mouth AT ONSET OF HEADACHE MAY TAKE A SECOND TAB... (REFER TO PRESCRIPTION NOTES). SUMAtriptan (IMITREX) 100 mg tablet take 1 tablet by mouth if needed to ABORT MIGRAINE once daily 30 DAY SUPPLY tiZANidine (ZANAFLEX) 4 mg tablet take 1 tablet by mouth AT 8PM EVERY NIGHT traZODone HCl 300 mg tablet Take 300 mg by mouth once daily. triamcinolone acetonide (NASACORT AQ) 55 mcg nasal inhaler Use 2 Sprays in the nose. verapamil SR (CALAN SR, ISOPTIN SR) 180 mg CR tablet Take 180 mg by mouth once daily. No current facility-administered medications for this visit. ALLERGIES Allergen Reactions Ketorolac Hives Prednisone Other: See Comments Tramadol Other: See Comments No past surgical history on file. No family history on file. Tobacco Use: Not on file REVIEW OF SYSTEMS: The remainder of the ROS was reviewed with the patient and is negative except as noted. GENERAL: denies fever or chills CARDIOVASCULAR: Denies cur (more content not included)... [facility] 11-01-2023 History of Presen t illness Narrative Patient Visit for Gary Vigil 1985 38 year old female Date of Service: November 01, 2023 SUBJECTIVE: Chief Complaint: Patient presents with: Left Foot - Established Patient, Follow Up, Pain /Pain Scales: Verbal (Numeric Rating or Visual Analog Scale) Pain Level: 10 Pain Location: (left foot and ankle) Description: Aching, Pressure, Sharp, Shooting, Sore Duration Units: Months Frequency: Continuous Comments: She is here for a follow up left foot and ankle pain. Pain increase with walking and standing. Additional HPI: Chief complaint today very painful hyperkeratosis plantar lateral LEFT forefoot Difficulty walking She works at [employer] at work all day Altered gait Pes plano valgus deformity symptoms Other Very complicated history of LEFT lower extremity symptoms with multiple surgeries Gary has had symptoms of her left foot for over 15 years states she was initially treated in [place]. In 2018 she moved to [place] was seen by Dr. 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 Sheng Covington DPM at [facility] She is wearing slippers today PCP: No primary care provider on file. No past medical history on file. Current Outpatient Medications Medication Sig acetaminophen (TYLENOL) 500 mg tablet take 2 tablets by mouth every 8 hours if needed VENTOLIN HFA 90 mcg/actuation inhaler inhale 2 puffs by mouth and INTO THE LUNGS every 4 hours if needed albuterol HFA (PROVENTIL HFA, VENTOLIN HFA) 90 mcg/actuation inhaler Inhale 2 Puffs as instructed every 6 hours as needed. metFORMIN (GLUCOPHAGE) 1,000 mg tablet Take 1,000 mg by mouth twice daily with meals. amitriptyline (ELAVIL) 50 mg tablet Take 50 mg by mouth daily at bedtime. Biotin 10,000 mcg cap Take 1 capsule by mouth once daily. Three RingsTOUCH ULTRA TEST test strip twice daily. TEST TWICE DAILY VRAYLAR 4.5 mg capsule take 1 take by mouth once daily cholecalciferol, Vitamin D3, (VITAMIN D3) 1,250 mcg (50,000 unit) cap capsule One capsule weekly for 8 weeks then q.month citalopram (CELEXA) 20 mg tablet Take 20 mg by mouth daily at bedtime. FLOWFLEX COVID-19 AG HOME TEST kit doxycycline (VIBRA-TABS) 100 mg tablet take 1 tablet by mouth twice a day for 10 days etodolac (LODINE-XL) 500 mg 24 hr tablet take 1 tablet by mouth once daily NEEDED FOR PAIN with food FLOVENT HFA 110 mcg/actuation inhaler inhale 2 puffs by mouth and INTO THE LUNGS twice a day fluticasone (FLONASE) 50 mcg/actuation nasal spray instill 1 spray into each nostril twice a day furosemide (LASIX) 40 mg tablet take 1 tablet by mouth once daily if needed for SWELLING [employer]OV[employer]OINJECTOR 225 mg/1.5 mL auto-injector inject subcutaneously as directed loratadine (CLARITIN) 10 mg tablet Take 10 mg by mouth once daily. lidocaine (SALONPAS) 4 % patch Apply 1 Patch as directed q 24 HR. meloxicam (MOBIC) 15 mg tablet Take 15 mg by mouth once daily. montelukast (SINGULAIR) 10 mg tablet Take 10 mg by mouth. omeprazole (PRILOSEC) 20 mg capsule Take 20 mg by mouth once daily. potassium chloride ER (K-DUR, KLOR-CON) 20 mEq tablet Take 20 mEq by mouth. prazosin (MINIPRESS) 5 mg cap Take 5 mg by mouth once daily. pregabalin (LYRICA) 75 mg capsule Take 75 mg by mouth twice daily. propranolol ER (INDERAL LA) 80 mg 24 hr capsule Take 80 mg by mouth. risperiDONE (RISPERDAL) 1 mg tablet Take 1 mg by mouth twice daily. rizatriptan (MAXALT) 5 mg tablet take 1 tablet by mouth AT ONSET OF HEADACHE MAY TAKE A SECOND TAB... (REFER TO PRESCRIPTION NOTES). SUMAtriptan (IMITREX) 100 mg tablet take 1 tablet by mouth if needed to ABORT MIGRAINE once daily 30 DAY SUPPLY tiZANidine (ZANAFLEX) 4 mg tablet take 1 tablet by mouth AT 8PM EVERY NIGHT traZODone HCl 300 mg tablet Take 300 mg by mouth once daily. triamcinolone acetonide (NASACORT AQ) 55 mcg nasal inhaler Use 2 Sprays in the nose. verapamil SR (CALAN SR, ISOPTIN SR) 180 mg CR tablet Take 180 mg by mouth once daily. No current facility-administered medications for this visit. ALLERGIES Allergen Reactions Ketorolac Hives Prednisone Other: See Comments Tramadol Other: See Comments No past surgical history on file. No family history on file. Tobacco Use: Not on file REVIEW OF SYSTEMS: The remainder of the ROS was reviewed with the patient and is negative except as noted. GENERAL: denies fever or chills CARDIOVASCULAR: Denies current chest pain or SOB (shortness of breath) OBJECTIVE: General: Pleasant in no acute distress Lower extremity exam: Vascular exam: Normal vascular exam, palpable pluses with brisk capillary fill Neurological exam: Mixed distribution loss of sensation LEFT lower extremity Paresthesias No significant pain out of proportion Gross epicritic sensation intact Dermatological exam: See Epic photo uploaded today: November 01, 2023 Thick yellow crumbling and dystrophic second toenails bilateral consistent with onychomycosis Hyperkeratosis plantar great toe bilateral with tenderness to palpation Deep Hyperkeratosis plantar fourth metatarsal head area with evidence of previous surgical scars significant tenderness to palpation Well healed scars from previous surgery forefoot and near common peroneal nerve LEFT near fibular neck Other Normal exam without rashes or lesions of skin. No evidence of evidence of petechiae, purpura, telangiectasia Musculoskeletal exam: Depressed arch height with weight bearing Gross overall Manual muscle strength evaluation relatively intact RIGHT lower extremity with pes plano valgus deformity Gross range of motion appears to be intact to ankle and foot Gross overall Manual muscle strength evaluation relatively intact LABS: Most recent labs reviewed LABORATORY STUDIES: No results for input(s): HB , WBC , PLT , WSR , CRP , CCPABG , RF , INR , CREATININE , ALB , PROT , URICACID , HBA1C , VITD25 in the last 75501 hours. 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 Hyperkeratosis plantar great toe and lateral LEFT forefoot removed with scalpel blade In order to perform a complete physical exam, limited shaving of above areas area was performed. This incidental service is integral to the evaluation and management visit in order to appropriately manage and treat the patient (for their complaint or for this visit). CeraVe topical diabetic cream emollient twice daily recommended Or equivalent Fitted and dispensed [place] accommodative orthosis today. Patient was asked to actively ambulate in the orthosis and demonstrated today that symptoms were significantly improved with the use of the orthosis. Size 4 All questions were answered. Gary Vigil appeared to be well informed. Greater than 50% of the visit was spent face to face counseling and/or coordinating care for the patient. Eulalia Fuentes DPM documented in this encounter [facility] 11-01-2023 Note HNO ID: [id number] Author: Julianna Pollard RT(Joseph) Service: ? Author Type: Technologist Type: Progress Notes Filed: 11/01/2023 11:07 AM Note Text: Radiology Service Progress Note PATIENT NAME: Gary Vigil DATE OF SERVICE: November 01, 2023 TIME: 11:07 AM PATIENT IDENTITY VERIFICATION COMPLETED USING TWO (2) IDENTIFIERS: Name and Date of confirmed by patient verbally. FALL SCREENING: Has the patient had 2 falls in the last year or 1 fall with injury or currently using an Ambulatory Assistive Device (Walker, Cane, Wheelchair, Crutches, etc.)? No PATIENT GENDER DATA: Female. status: : No status: N/A PATIENT RELEVANT IMPLANT DATA REVIEWED: Not Applicable RADIOLOGY DEPARTMENT: General X-ray: Exam(s) Completed: Lower Extremity X-Ray(s): Foot, Left and Wt. Bearing PERIPHERAL IV DATA: Not applicable SIGNED BY: RT Gi(R) November 01, 2023 11:07 AM [facility] 11-01-2023 History of Presen t illness Narrative Radiology Service Progress Note PATIENT NAME: Gary Vigil DATE OF SERVICE: November 01, 2023 TIME: 11:07 AM PATIENT IDENTITY VERIFICATION COMPLETED USING TWO (2) IDENTIFIERS: Name and Date of confirmed by patient verbally. FALL SCREENING: Has the patient had 2 falls in the last year or 1 fall with injury or currently using an Ambulatory Assistive Device (Walker, Cane, Wheelchair, Crutches, etc.)? No PATIENT GENDER DATA: Female. status: : No status: N/A PATIENT RELEVANT IMPLANT DATA REVIEWED: Not Applicable RADIOLOGY DEPARTMENT: General X-ray: Exam(s) Completed: Lower Extremity X-Ray(s): Foot, Left and Wt. Bearing PERIPHERAL IV DATA: Not applicable SIGNED BY: RT Gi(R) November 01, 2023 11:07 AM documented in this encounter [facility] 07-09-2022 History of Presen t illness Narrative Patient Visit for Gary Vigil 1985 37 year old female July 09, 2022 SUBJECTIVE: Chief Complaint: Patient presents with: Left Ankle - Established Patient, Pain, Swelling Left Foot - Established Patient, Pain, Swelling /Pain Scales: Verbal (Numeric Rating or Visual Analog Scale) Pain Level: 10 Pain Location: (Left ankle and foot) Description: Aching, Burning, Sharp, Throbbing Duration Amount of Time: 5 Duration Units: Months Frequency: Intermittent Intervention/Comfort measure: Relaxation Comments: She is here for a follow up of left foot and ankle pain and swelling. No known injury. Pain increases with walking and standing. 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 In 2018 she moved to [place] was seen by Dr. 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 Sheng Covington DPM at [facility] PCP: No primary care provider on file. No past medical history on file. Current Outpatient Medications Medication Sig acetaminophen (TYLENOL) 500 mg tablet take 2 tablets by mouth every 8 hours if needed VENTOLIN HFA 90 mcg/actuation inhaler inhale 2 puffs by mouth and INTO THE LUNGS every 4 hours if needed albuterol HFA (PROVENTIL HFA, VENTOLIN HFA) 90 mcg/actuation inhaler Inhale 2 Puffs as instructed every 6 hours as needed. metFORMIN (GLUCOPHAGE) 1,000 mg tablet Take 1,000 mg by mouth twice daily with meals. amitriptyline (ELAVIL) 50 mg tablet Take 50 mg by mouth daily at bedtime. Biotin 10,000 mcg cap Take 1 capsule by mouth once daily. ONETOUCH ULTRA TEST test strip twice daily. TEST TWICE DAILY VRAYLAR 4.5 mg capsule take 1 take by mouth once daily cholecalciferol, Vitamin D3, (VITAMIN D3) 1,250 mcg (50,000 unit) cap capsule One capsule weekly for 8 weeks then q.month citalopram (CELEXA) 20 mg tablet Take 20 mg by mouth daily at bedtime. FLOWFLEX COVID-19 AG HOME TEST kit doxycycline (VIBRA-TABS) 100 mg tablet take 1 tablet by mouth twice a day for 10 days etodolac (LODINE-XL) 500 mg 24 hr tablet take 1 tablet by mouth once daily NEEDED FOR PAIN with food FLOVENT HFA 110 mcg/actuation inhaler inhale 2 puffs by mouth and INTO THE LUNGS twice a day fluticasone (FLONASE) 50 mcg/actuation nasal spray instill 1 spray into each nostril twice a day furosemide (LASIX) 40 mg tablet take 1 tablet by mouth once daily if needed for SWELLING AJOVY AUTOINJECTOR 225 mg/1.5 mL auto-injector inject subcutaneously as directed loratadine (CLARITIN) 10 mg tablet Take 10 mg by mouth once daily. lidocaine (SALONPAS) 4 % patch Apply 1 Patch as directed q 24 HR. meloxicam (MOBIC) 15 mg tablet Take 15 mg by mouth once daily. montelukast (SINGULAIR) 10 mg tablet Take 10 mg by mouth. omeprazole (PRILOSEC) 20 mg capsule Take 20 mg by mouth once daily. potassium chloride ER (K-DUR, KLOR-CON) 20 mEq tablet Take 20 mEq by mouth. prazosin (MINIPRESS) 5 mg cap Take 5 mg by mouth once daily. pregabalin (LYRICA) 75 mg capsule Take 75 mg by mouth twice daily. propranolol ER (INDERAL LA) 80 mg 24 hr capsule Take 80 mg by mouth. risperiDONE (RISPERDAL) 1 mg tablet Take 1 mg by mouth twice daily. rizatriptan (MAXALT) 5 mg tablet take 1 tablet by mouth AT ONSET OF HEADACHE MAY TAKE A SECOND TAB... (REFER TO PRESCRIPTION NOTES). SUMAtriptan (IMITREX) 100 mg tablet take 1 tablet by mouth if needed to ABORT MIGRAINE once daily 30 DAY SUPPLY tiZANidine (ZANAFLEX) 4 mg tablet take 1 tablet by mouth AT 8PM EVERY NIGHT traZODone HCl 300 mg tablet Take 300 mg by mouth once daily. triamcinolone acetonide (NASACORT AQ) 55 mcg nasal inhaler Use 2 Sprays in the nose. verapamil SR (CALAN SR, ISOPTIN SR) 180 mg CR tablet Take 180 mg by mouth once daily. No current facility-administered medications for this visit. ALLERGIES Allergen Reactions Ketorolac Hives Prednisone Other: See Comments Tramadol Other: See Comments No past surgical history on file. No family history on file. Tobacco Use: Not on file REVIEW OF SYSTEMS: The remainder of the ROS was reviewed with the patient and is negative except as noted. GENERAL: denies fever or chills CARDIOVASCULAR: Denies current chest pain or SOB (shortness of breath) OBJECTIVE: General: Pleasant in no acute distress Lower extremity exam: Vascular exam: Normal vascular exam, palpable pluses with brisk capillary fill Neurological exam: Mixed distribution loss of sensation LEFT lower extremity Paresthesias No significant pain out of proportion Gross epicritic sensation intact Dermatological exam: Thick yellow crumbling and dystrophic second toenails bilateral consistent with onychomycosis Hyperkeratosis plantar great toe bilateral with tenderness to palpation Hyperkeratosis plantar fourth metatarsal head area with evidence of previous surgical scars Well healed scars from previous surgery forefoot and near common peroneal nerve LEFT near fibular neck Other Normal exam without rashes or lesions of skin. No evidence of evidence of petechiae, purpura, telangiectasia Musculoskeletal exam: Patient tends to hold her left foot and ankle into varus position although can be reduced to normal she states is quite uncomfortable Altered gait due to Antalgic gait Gross overall Manual muscle strength evaluation relatively intact RIGHT lower extremity with pes plano valgus deformity Gross range of motion appears to be intact to ankle and foot Gross overall Manual muscle strength evaluation relatively intact LABS: Most recent labs reviewed LABORATORY STUDIES: No results for input(s): HB, WBC, PLT, WSR, CRP, CCPABG, RF, INR, CREATININE, ALB, PROT, URICACID, HBA1C, VITD25 in the last 66292 hours. ASSESSMENT: M79.671, M79.672 Pain in both feet (primary encounter diagnosis) L85.9 Hyperkeratosis G57.92 Neuritis of left lower extremity M79.2 Neuralgia of left lower extremity Z98.890 History of foot surgery E11.49 Diabetes mellitus type 2 with neurological manifestations (HCC) M25.572, G89.29 Chronic pain of left ankle L60.8 Acquired dysmorphic toenail R26.2 Difficulty walking PLAN: Explained to the patient etiology and treatment plan. Hyperkeratosis plantar great toe and lateral LEFT forefoot removed with #15 scalpel blade In order to perform a complete physical exam, limited shaving of above areas area was performed. This incidental service is integral to the evaluation and management visit in order to appropriately manage and treat the patient (for their complaint or for this visit). CeraVe topical diabetic cream emollient twice daily recommended Or equivalent I discussed with the patient silicone Silipos type sole socks Additional Silipos silicone padding fitted and dispensed to use on toes, instructed on use and warned of risks of ulceration, irritation and potential vascular compromise. Additional Padding for fourth metatarsal head Refer to orthotics prosthetics for custom molded Foot Orthosis [facility] [phone] [facility] [phone] [facility] phone : [phone] Medically necessary for custom molded Foot Orthosis Type of brace or insert requested: Multilaminate custom molded Foot Orthosis How it will help with ADL (activities of daily living) : custom molded Foot Orthosis will provide mechanical support and assist with ambulation and ADL (activities of daily living) specifically will help patient to community ambulate Increase function Decrease pain Length of time needed for durable medical equipment device : Medically necessary Duration of Need for custom molded Foot Orthosis : LIFETIME Diagnosis codes that support the medically necessity of brace: M79.671, M79.672 Pain in both feet (primary encounter diagnosis) L85.9 Hyperkeratosis G57.92 Neuritis of left lower extremity M79.2 Neuralgia of left lower extremity Z98.890 History of foot surgery 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 Gary Vigil appeared to be well informed. Greater than 50% of the visit was spent face to face counseling and/or coordinating care for the patient. Eulalia Fuentes DPM documented in this encounter [facility] 04-30-2022 History of Presen t illness Narrative Patient Visit for Gary Vigil 1985 36 year old female SUBJECTIVE: Chief Complaint: Patient presents with: Left Foot - Established Patient, Follow Up, Pain Left Ankle - Established Patient, Follow Up, Pain Right Foot - Established Patient, Follow Up, Pain Pain Scales: Verbal (Numeric Rating or Visual Analog Scale) Pain Location: (Bilateral Foot) Additional HPI: Very complicated history of LEFT lower extremity symptoms with multiple surgeries Gary has had symptoms of her left foot for over 15 years states she was initially treated in [place]. In 2018 she moved to [place] was seen by Dr. Shad Jacques Previous records are unavailable for review She has some type of forefoot surgery in 2020 later had removal of hardware that was previously placed and underwent tarsal tunnel surgery as well as what appears to be decompression of her common peroneal nerve at the level of the knee patient states she had no improvement she was walking with a varus deformity and follow-up MRI She is also been seen by Dr. 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 No past medical history on file. Current Outpatient Medications Medication Sig acetaminophen (TYLENOL) 500 mg tablet take 2 tablets by mouth every 8 hours if needed VENTOLIN HFA 90 mcg/actuation inhaler inhale 2 puffs by mouth and INTO THE LUNGS every 4 hours if needed albuterol HFA (PROVENTIL HFA, VENTOLIN HFA) 90 mcg/actuation inhaler Inhale 2 Puffs as instructed every 6 hours as needed. metFORMIN (GLUCOPHAGE) 1,000 mg tablet Take 1,000 mg by mouth twice daily with meals. amitriptyline (ELAVIL) 50 mg tablet Take 50 mg by mouth daily at bedtime. Biotin 10,000 mcg cap Take 1 capsule by mouth once daily. ONETOUCH ULTRA TEST test strip twice daily. TEST TWICE DAILY VRAYLAR 4.5 mg capsule take 1 take by mouth once daily cholecalciferol, Vitamin D3, (VITAMIN D3) 1,250 mcg (50,000 unit) cap capsule One capsule weekly for 8 weeks then q.month citalopram (CELEXA) 20 mg tablet Take 20 mg by mouth daily at bedtime. FLOWFLEX COVID-19 AG HOME TEST kit doxycycline (VIBRA-TABS) 100 mg tablet take 1 tablet by mouth twice a day for 10 days etodolac (LODINE-XL) 500 mg 24 hr tablet take 1 tablet by mouth once daily NEEDED FOR PAIN with food FLOVENT HFA 110 mcg/actuation inhaler inhale 2 puffs by mouth and INTO THE LUNGS twice a day fluticasone (FLONASE) 50 mcg/actuation nasal spray instill 1 spray into each nostril twice a day furosemide (LASIX) 40 mg tablet take 1 tablet by mouth once daily if needed for SWELLING AJOVY AUTOINJECTOR 225 mg/1.5 mL auto-injector inject subcutaneously as directed loratadine (CLARITIN) 10 mg tablet Take 10 mg by mouth once daily. lidocaine (SALONPAS) 4 % patch Apply 1 Patch as directed q 24 HR. meloxicam (MOBIC) 15 mg tablet Take 15 mg by mouth once daily. montelukast (SINGULAIR) 10 mg tablet Take 10 mg by mouth. omeprazole (PRILOSEC) 20 mg capsule Take 20 mg by mouth once daily. potassium chloride ER (K-DUR, KLOR-CON) 20 mEq tablet Take 20 mEq by mouth. prazosin (MINIPRESS) 5 mg cap Take 5 mg by mouth once daily. pregabalin (LYRICA) 75 mg capsule Take 75 mg by mouth twice daily. propranolol ER (INDERAL LA) 80 mg 24 hr capsule Take 80 mg by mouth. risperiDONE (RISPERDAL) 1 mg tablet Take 1 mg by mouth twice daily. rizatriptan (MAXALT) 5 mg tablet take 1 tablet by mouth AT ONSET OF HEADACHE MAY TAKE A SECOND TAB... (REFER TO PRESCRIPTION NOTES). SUMAtriptan (IMITREX) 100 mg tablet take 1 tablet by mouth if needed to ABORT MIGRAINE once daily 30 DAY SUPPLY tiZANidine (ZANAFLEX) 4 mg tablet take 1 tablet by mouth AT 8PM EVERY NIGHT traZODone HCl 300 mg tablet Take 300 mg by mouth once daily. triamcinolone acetonide (NASACORT AQ) 55 mcg nasal inhaler Use 2 Sprays in the nose. verapamil SR (CALAN SR, ISOPTIN SR) 180 mg CR tablet Take 180 mg by mouth once daily. No current facility-administered medications for this visit. ALLERGIES Allergen Reactions Ketorolac Hives Prednisone Other: See Comments Tramadol Other: See Comments No past surgical history on file. No family history on file. Social History Tobacco Use Smoking status: Not on file Smokeless tobacco: Not on file Substance Use Topics Alcohol use: Not on file Drug use: Not on file Tobacco Use: Not on file REVIEW OF SYSTEMS: The remainder of the ROS was reviewed with the patient and is negative except as noted. GENERAL: denies fever or chills CARDIOVASCULAR: Denies current chest pain or SOB (shortness of breath) OBJECTIVE: General: Pleasant in no acute distress Lower extremity exam: Vascular exam: Normal vascular exam, palpable pluses with brisk capillary fill Neurological exam: Mixed distribution loss of sensation LEFT lower extremity Paresthesias No significant pain out of proportion Dermatological exam: Hyperkeratosis plantar great toe bilateral with tenderness to palpation Hyperkeratosis plantar fourth metatarsal head area with evidence of previous surgical scar Well healed scars from previous surgery forefoot and near common peroneal nerve LEFT near fibular neck Other Normal exam without rashes or lesions of skin. No evidence of evidence of petechiae, purpura, telangiectasia Musculoskeletal exam: Patient tends to hold her left foot and ankle into varus position although can be reduced to normal she states is quite uncomfortable Altered gait due to Antalgic gait Gross overall Manual muscle strength evaluation relatively intact RIGHT lower extremity with mild pes plano valgus deformity Gross range of motion appears to be intact to ankle and foot Gross overall Manual muscle strength evaluation relatively intact LABS: Most recent labs reviewed LABORATORY STUDIES: No results for input(s): HB, WBC, PLT, WSR, CRP, CCPABG, RF, INR, CREATININE, ALB, PROT, URICACID, HBA1C, VITD25 in the last 84186 hours. 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 Previous records of previous surgeries reviewed today Hyperkeratosis plantar great toe and lateral LEFT forefoot removed with #15 scalpel blade In order to perform a complete physical exam, limited shaving of above areas area was performed. This incidental service is integral to the evaluation and management visit in order to appropriately manage and treat the patient (for their complaint or for this visit). CeraVe topical diabetic cream emollient twice daily recommended Or equivalent Silipos silicone padding fitted and dispensed to use on toes, instructed on use and warned of risks of ulceration, irritation and potential vascular compromise. Additional Padding for fourth metatarsal head All questions were answered. Gary Vigil appeared to be well informed. Greater than 50% of the visit was spent face to face counseling and/or coordinating care for the patient. Eulalia Fuentes DPM documented in this encounter [facility] 03-06-2022 Miscellaneous Notes Left a message. We have received the paperwork at the [place] office and it will be here when Dr Fuentes returns to the office. Patient calling to see if [facility] ever sent over her records. Please call patient to inform. [phone] documented in this encounter [facility] Evaluation note No assessment inform ation available [facility] Work Phone: Evaluation note Diagnosis Hyperkeratosis- Primary Acquired keratoderma Neuritis of left lower extremity Neuralgia of left lower extremity History of foot surgery Personal history of surgery to other organs Diabetes mellitus type 2 with neurological manifestations (HCC) Type II or unspecified type diabetes mellitus with neurological manifestations, not stated as uncontrolled [facility] Pain in both feet- Primary Pain in limb Hyperkeratosis Acquired keratoderma Neuritis of left lower extremity Neuralgia of left lower extremity History of foot surgery Personal history of surgery to other organs Diabetes mellitus type 2 with neurological manifestations (HCC) Type II or unspecified type diabetes mellitus with neurological manifestations, not stated as uncontrolled Chronic pain of left ankle Acquired dysmorphic toenail Other specified disease of nail Difficulty walking Difficulty in walking [facility] Eversion deformity of foot, left- Primary Hyperkeratosis Acquired keratoderma Neuritis of left lower extremity History of foot surgery Personal history of surgery to other organs Diabetes mellitus type 2 with neurological manifestations (HCC) Type II or unspecified type diabetes mellitus with neurological manifestations, not stated as uncontrolled Difficulty walking Difficulty in walking Painful scar Scar condition and fibrosis of skin [facility] History of foot surgery- Primary Personal history of surgery to other organs Eversion deformity of foot, left Hyperkeratosis Acquired keratoderma Neuritis of left lower extremity Diabetes mellitus type 2 with neurological manifestations (HCC) Type II or unspecified type diabetes mellitus with neurological manifestations, not stated as uncontrolled Difficulty walking Difficulty in walking Painful scar Scar condition and fibrosis of skin Pain in both feet Pain in limb Neuralgia of left lower extremity Chronic pain of left ankle Acquired dysmorphic toenail Other specified disease of nail [facility] Diagnosis Ingrown toenail- Primary Ingrowing nail History of foot surgery Personal history of surgery to other organs Diabetes mellitus type 2 with neurological manifestations (HCC) Type II or unspecified type diabetes mellitus with neurological manifestations, not stated as uncontrolled Painful scar Scar condition and fibrosis of skin Acquired dysmorphic toenail Other specified disease of nail Eversion deformity of foot, left Hyperkeratosis Acquired keratoderma [facility] Diagnosis History of foot surgery- Primary Personal history of surgery to other organs DM (diabetes mellitus), type 2 with neurological complications (HCC) Type II or unspecified type diabetes mellitus with neurological manifestations, not stated as uncontrolled Painful scar Scar condition and fibrosis of skin Hyperkeratosis Acquired keratoderma History of foot surgery Personal history of surgery to other organs DM (diabetes mellitus), type 2 with neurological complications (HCC) Type II or unspecified type diabetes mellitus with neurological manifestations, not stated as uncontrolled Painful scar Scar condition and fibrosis of skin Hyperkeratosis Acquired keratoderma [facility] Diagnosis Type 2 diabetes mellitus with diabetic polyneuropathy, unspecified whether terminal manager insulin use (HCC)- Primary BMI 39.0-39.9,adult Body Mass Index 39.0-39.9, adult Difficulty walking Difficulty in walking Eversion deformity of foot, left Painful scar Scar condition and fibrosis of skin History of foot surgery Personal history of surgery to other organs DM (diabetes mellitus), type 2 with neurological complications (HCC) Type II or unspecified type diabetes mellitus with neurological manifestations, not stated as uncontrolled Painful scar Scar condition and fibrosis of skin Hyperkeratosis Acquired keratoderma [facility] Diagnosis Ingrown toenail- Primary Ingrowing nail Pain in both feet Pain in limb Acquired dysmorphic toenail Other specified disease of nail History of foot surgery Personal history of surgery to other organs Diabetes mellitus type 2 with neurological manifestations (HCC) Type II or unspecified type diabetes mellitus with neurological manifestations, not stated as uncontrolled BMI 39.0-39.9,adult Body Mass Index 39.0-39.9, adult Fibromyalgia Mylagia and myositis, unspecified Eversion deformity of foot, left History of foot surgery Personal history of surgery to other organs DM (diabetes mellitus), type 2 with neurological complications (HCC) Type II or unspecified type diabetes mellitus with neurological manifestations, not stated as uncontrolled Painful scar Scar condition and fibrosis of skin Hyperkeratosis Acquired keratoderma [facility] Diagnosis Type 2 diabetes mellitus with diabetic polyneuropathy, unspecified whether terminal manager insulin use (HCC) BMI 39.0-39.9,adult Body Mass Index 39.0-39.9, adult Difficulty walking Difficulty in walking Eversion deformity of foot, left Painful scar Scar condition and fibrosis of skin History of foot surgery Personal history of surgery to other organs DM (diabetes mellitus), type 2 with neurological complications (HCC) Type II or unspecified type diabetes mellitus with neurological manifestations, not stated as uncontrolled Painful scar Scar condition and fibrosis of skin Hyperkeratosis Acquired keratoderma [facility] Diagnosis Pre-op evaluation- Primary Preoperative examination, unspecified Hyperlipidemia, unspecified hyperlipidemia type Type 2 diabetes mellitus with other specified complication, without long-term current use of insulin ([facility]) Fibromyalgia Mylagia and myositis, unspecified Migraine without status migrainosus, not intractable, unspecified migraine type Cigarette nicotine dependence without complication Tobacco use disorder Mild intermittent asthma without complication Unspecified asthma Obstructive sleep apnea of adult Obstructive sleep apnea (adult) (pediatric) Gastro-esophageal reflux disease without esophagitis Esophageal reflux Class 2 severe obesity due to excess calories with serious comorbidity and body mass index (BMI) of 36.0 to 36.9 in adult ([facility]) History of foot surgery Personal history of surgery to other organs DM (diabetes mellitus), type 2 with neurological complications (HCC) Type II or unspecified type diabetes mellitus with neurological manifestations, not stated as uncontrolled Painful scar Scar condition and fibrosis of skin Hyperkeratosis Acquired keratoderma * Assessment & Plan Note - Severiano Virk APRN.CNP - 03/20/2024 10:47 AM EDT Associated Problem(s): Class 2 severe obesity due to excess calories with serious comorbidity and body mass index (BMI) of 36.0 to 36.9 in adult ([facility]) Assessment: Body mass index is 36.65 kg/m . * Assessment & Plan Note - Severiano Virk APRN.CNP - 03/20/2024 10:45 AM EDT Associated Problem(s): Gastro-esophageal reflux disease without esophagitis Assessment: Controlled with PPI * Assessment & Plan Note - Severiano Virk APRN.CNP - 03/20/2024 10:44 AM EDT Associated Problem(s): Obstructive sleep apnea of adult Assessment: Not currently using CPAP as hers was recalled and she has not gotten a new one yet * Assessment & Plan Note - Severiano Virk APRN.CNP - 03/20/2024 10:44 AM EDT Associated Problem(s): Mild intermittent asthma without complication Assessment: Stable Albuterol if needed Follows with Family health services * Assessment & Plan Note - Severiano Virk APRN.CNP - 03/20/2024 10:43 AM EDT Associated Problem(s): Cigarette nicotine dependence without complication Assessment: Smokes 1.5-2 PPD Cut back from 6 PPD in 2020 * Assessment & Plan Note - Severiano Virk APRN.CNP - 03/20/2024 10:42 AM EDT Associated Problem(s): Migraines Assessment: Ajovy Monthly- Next Dose 03/24 Has rescue medication if needed * Assessment & Plan Note - Severiano Virk APRN.CNP - 03/20/2024 10:42 AM EDT Associated Problem(s): Fibromyalgia Assessment: Controlled with Tylenol * Assessment & Plan Note - Severiano Virk APRN.CNP - 03/20/2024 10:40 AM EDT Associated Problem(s): Type 2 diabetes mellitus (HCC) Assessment: On Trulicity (Sundays) to hold 7 days prior to procedure On Januvia Follows with Family health services To get HGB A1C today * Assessment & Plan Note - Severiano Virk APRN.CNP - 03/20/2024 10:28 AM EDT Associated Problem(s): Hyperlipidemia, unspecified Assessment: On Statin Follows with PCP [facility] Diagnosis Medication course changed- Primary Diabetes mellitus type II, non insulin dependent (Multi) Type II or unspecified type diabetes mellitus without mention of complication, not stated as uncontrolled Anemia, unspecified type Primary hypertension Unspecified essential hypertension BMI 38.0-38.9,adult Smoker Tobacco use disorder Hyperlipidemia, unspecified hyperlipidemia type documented in this encounter [facility] Work Phone: Evaluation note* Diagnosis Difficulty walking- Primary Difficulty in walking Right foot pain Pain in limb Painful scar Scar condition and fibrosis of skin Neuritis of left lower extremity Fibromyalgia Mylagia and myositis, unspecified History of foot surgery Personal history of surgery to other organs DM (diabetes mellitus), type 2 with neurological complications (HCC) Type II or unspecified type diabetes mellitus with neurological manifestations, not stated as uncontrolled Painful scar Scar condition and fibrosis of skin Hyperkeratosis Acquired keratoderma [facility]* Diagnosis Post-operative state- Primary Other postprocedural status [facility] Diagnosis Post-operative state- Primary Other postprocedural status [facility] Hospital Discharge instructions Additional Instructions Ice to sore areas May take the naproxen twice a day for pain take with food May take the muscle relaxer cyclobenzaprine up to 3 times a day as needed for pain may make you sleepy Gentle stretching Follow-up with your family doctor for recheck as neededN[facility] Work Phone: [facility] instructions[facility] Work Phone: Hospital Discharge instructions Additional Instructions Follow-up with your surgeon Return to the ED if develop worsening symptoms or concernsNationwide [facility] Work Phone: Hospital Discharge instructions Additional Instructions Avoid smoking Rest Tylenol or Naprosyn if needed for pain Warm compresses to area affected Avoid heavy lifting for the next 2 days Return here if any problems persist or worsen including increased chest pain, shortness of breath, or any other concerns as needed discussedNationwide Children'S Hospital Work Phone: Hospital Discharge instructions Additional Instructions Take [id number] ibuprofen or Tylenol for discomfort May apply warm compresses however that does not usually help sebaceous cyst Follow-up with dermatology for removal of the cyst Return to the ER if suddenly red warm pustule or any other concernsNationwide [facility] Hospital Work Phone: Hospital Discharge instructions Additional Instructions Use the Lidoderm pain patch as prescribed for your chest pain. Take Tylenol as needed for chest pain. Follow-up with your PCP for reevaluation in 5 to 7 days regarding your chest pain and also your abnormal EKG possible need for further outpatient cardiac testing.[facility] Work Phone: Hospital Discharge instructions Additional Instructions Warm compresses several times a day Take antibiotic as instructed until gone Avoid picking, poking, popping area affected Good hand hygiene Return here if any problems persist or worsenNationwide Children'[facility] Hospital Work Phone: Hospital Discharge instructions Additional Instructions Push fluids Rest Tylenol if needed for pain Apply warm compresses to your abdomen is uncomfortable Take antibiotic as instructed until gone Follow-up with your [facility]NNation[facility] Work Phone: Chief Complaint and Reason for Visit Chief Complaint bump under rt arm pi t rt side facial/mouth pain Chief Complaint bump under rt arm pi t rt side facial/mouth pain Lower back injury_[employer] Chief Complaint bump under rt arm pi t rt side facial/mouth pain Lower back injury_[employer] E11.9 Chief Complaint rt side facial/mouth pain Lower back injury_[employer] E11.9 Right Axillary Abscess Chief Complaint rt side facial/mouth pain Lower back injury_[employer] E11.9 Right Axillary Abscess Right Axillary Abscess Chief Complaint rt side facial/mouth pain Lower back injury_[employer] E11.9 Right Axillary Abscess Right Axillary Abscess Right Axillary Abscess Chief Complaint Lower back injury_[employer] E11.9 Right Axillary Abscess Right Axillary Abscess Right Axillary Abscess post surgical issues Chief Complaint Right Axillary Absce ss Right Axillary Abscess Right Axillary Abscess post surgical issues E11.9 Chief Complaint Right Axillary Absce ss Right Axillary Abscess Right Axillary Abscess post surgical issues E11.9 L Wrist Swelling, NKI E11.9 Chief Complaint Right Axillary Absce ss Right Axillary Abscess Right Axillary Abscess post surgical issues E11.9 L Wrist Swelling, NKI E11.9 poss abcess under lt arm Chief Complaint Right Axillary Absce ss post surgical issues E11.9 L Wrist Swelling, NKI E11.9 poss abcess under lt arm labs Chief Complaint E11.9 L Wrist Swelling, NKI E11.9 poss abcess under lt arm labs left arm pain Chief Complaint L Wrist Swelling, NK I E11.9 poss abcess under lt arm labs left arm pain chest pain Chief Complaint left arm pain chest pain left thumb inkury/rash Chief Complaint left arm pain chest pain left thumb inkury/rash E11.628 Chief Complaint left arm pain chest pain left thumb inkury/rash E11.628 r10.2;N92.1;Pre-surgical testing Chief Complaint left thumb inkury/ra sh E11.628 r10.2;N92.1;Pre-surgical testing lump on neck Chief Complaint left thumb inkury/ra sh E11.628 r10.2;N92.1;Pre-surgical testing lump on neck Chest pain Chief Complaint left thumb inkury/ra sh E11.628 r10.2;N92.1;Pre-surgical testing lump on neck Chest pain i10 r60.0 Chief Complaint Bilat leg injury Chief Complaint Bilat leg injury 2 lumps on her stomach Chief Complaint Bilat leg injury 2 lumps on her stomach personal Chief Complaint personal lower abd apin Chief Complaint personal lower abd apin abd pain Chief Complaint lower abd apin abd pain Z12.31 Chief Complaint r10.2 n94.89 R foot pain Chief Complaint R foot pain r10.2 n94.89 Advance Directives No Advanced Directives Records Found Advance Directive Response Recorded Date/ Time Advance Directives No July 3:09pm Advance Directive Response Recorded Date/ Time Advance Directives No July 2:09pm Family History No Family History Records Found Relationship Condition Age at Onset Recorded Date/T belgica Not Specified Diabetes mellitus Unknown Hypertension Unknown Hyperlipidemia Unknown Chronic obstructive pulmonary disease Unk nown Asthma Unknown Unknown Family Member Name Dates Details Family history of cardiac di sorder: Mother(V17.49, Z82.49) Status:Active Family history of hypertensi on: Mother(V17.49, Z82.49) Status:Active Family history of diabetes m ellitus: Mother(V18.0, Z83.3) Status:Active Family history of hyperlipid emia: Mother(V18.19, Z83.438) Status:Active Unknown Family Member Name Dates Details Family history of cardiac di sorder: Mother(V17.49, Z82.49) Status:Active Family history of hypertensi on: Mother(V17.49, Z82.49) Status:Active Family history of diabetes m ellitus: Mother(V18.0, Z83.3) Status:Active Family history of hyperlipid emia: Mother(V18.19, Z83.438) Status:Active Unknown Family Member Name Dates Details Family history of cardiac di sorder: Mother(V17.49, Z82.49) Status:Active Family history of hypertensi on: Mother(V17.49, Z82.49) Status:Active Family history of diabetes m ellitus: Mother(V18.0, Z83.3) Status:Active Family history of hyperlipid emia: Mother(V18.19, Z83.438) Status:Active Unknown Family Member Name Dates Details Family history of hyperlipid emia: Mother(V18.19, Z83.438) Status:Active Family history of diabetes m ellitus: Mother(V18.0, Z83.3) Status:Active Family history of hypertensi on: Mother(V17.49, Z82.49) Status:Active Family history of cardiac di sorder: Mother(V17.49, Z82.49) Status:Active Unknown Family Member Name Dates Details Family history of cardiac di sorder: Mother(V17.49, Z82.49) Status:Active Family history of hypertensi on: Mother(V17.49, Z82.49) Status:Active Family history of diabetes m ellitus: Mother(V18.0, Z83.3) Status:Active Family history of hyperlipid emia: Mother(V18.19, Z83.438) Status:Active Summary Purpose Reason for Referral Specialty Diagnoses / Procedures Referred By Amnaac t Referred To Contact [facility] Diagnoses Type 2 diabetes mellitus with diabetic polyneuropathy, unspecified whether terminal manager insulin use (HCC) BMI 39.0-39.9,adult Difficulty walking Eversion deformity of foot, left Painful scar Procedures CONSULT TO PHYSICAL THERAPY PHYSICAL THERAPY EVALUATION HIGH COMPLEX 45 MINS Eulalia Fuentes DPM [address] [place] [address] [facility] [place] [address] [place] [address] Referral ID Status Reason Start Date Expiration Date Visits Requested Visits Authorized [id number] Pending Review Auto-Generat ed Referral 02/04/2024 02/03/2025 1 1 Specialty Diagnoses / Procedures Referred By Kristy mcpherson Referred To Contact Diagnoses Primary hypertension Krystal Koehler MD [address] [place] [id number] Referral ID Status Reason Start Date Expiration Date V isits Requested Visits Authorized [id number] Pending Review 1 1 Specialty Diagnoses / Procedures Referred By Kristy t Referred To Contact Diagnoses Diabetes mellitus type II, non insulin dependent (Multi) Hyperlipidemia, unspecified hyperlipidemia type Krystal Koehler MD [address] [place] [id number] Referral ID Status Reason Start Date Expiration Date V isits Requested Visits Authorized [id number] Pending Review 1 1 Specialty Diagnoses / Procedures Referred By Kristy t Referred To Contact Cardiology Diagnoses Primary hypertension Procedures Follow Up In Cardiology Krystal Koehler MD [address] [address] Krystal Koehler MD [address] [place] [address] [address] [place] [address] Referral ID Status Reason Start Date Expiration Date V isits Requested Visits Authorized [id number] Authorized 03/23/2024 03/23/2025 1 1 Additional Source Comments Care Teams (unrecognized sec tion and content) Team Status: Active Member Role Status Dates Ga Marques PA-C Primary Care Provider Activ e Team Status: Inactive Member Role Status Dates Ga Marques PA-C Primary Care Provider Activ e Aron Trevino DO Emergency Provider Active Team Status: Inactive Member Role Status Dates Ga Marques PA-C Primary Care Provider Activ e Isidoro Moya DO Emergency Provider Active Team Status: Inactive Member Role Status Dates Ga Marques PA-C Primary Care Provider Activ e Rigoberto Montano Attending Provider Active Team Status: Inactive Member Role Status Dates Ga Marques PA-C Primary Care Provider Activ e Radha Stephens , [facility]- Emergency Provider Active Team Status: Inactive Member Role Status Dates Ga Marques PA-C Primary Care Provider Activ e Krystal Koehler MD Attending Provider Active Team Status: Inactive Member Role Status Dates Ga Marques PA-C Primary Care Provider Activ e Miquel Andrews PA-C Emergency Provider Active Team Status: Inactive Member Role Status Dates NON STAFF Primary Care Provider Active Robert Vazquez DO Emergency Provider Active Wood Processing Worker Relationship Specialty Start Date End Date O Jamia Escalona MD [address] [place] [address] Referring BEAUTY CULTURIST 01/12/20 Team Status: Inactive Member Role Status Dates Ga Marques PA-C Primary Care Provider, Atte nding Provider Active Wood Processing Worker Relationship Specialty Start Date End Date Jamia Johansen MD [address] [place] [address] Referring BEAUTY CULTURIST 01/12/20 Team Status: Inactive Member Role Status Dates Ga Marques PA-C Primary Care Provider Activ e Aleksandr Viera MD Attending Provider Active Team Status: Inactive Member Role Status Dates Ga Marques PA-C Primary Care Provider Activ e Mk Parker , DO Emergency Provider Active Wood Processing Worker Relationship Specialty Start Date End Date O Jamia Escalona MD Referring BEAUTY CULTURIST 01/12/20 Team Status: Inactive Member Role Status Dates Ga Marques PA-C Primary Care Provider Activ e Hanane Rondon , POINTER HELPER Emergency Provider Active Team Status: Inactive Member Role Status Dates Ga Marques PA-C Primary Care Provider Activ e Be Laguna , POINTER HELPER Emergency Provider Active Wood Processing Worker Relationship Specialty Start Date End Date O Jamia Escalona MD Referring BEAUTY CULTURIST 01/12/20 Wood Processing Worker Relationship Specialty Start Date End Date O Jamia Escalona MD Referring BEAUTY CULTURIST 01/12/20 Wood Processing Worker Relationship Specialty Start Date End Date O Jamia Escalona MD Referring Nonprofit Manager 01/12/20 Wood Processing Worker Relationship Specialty Start Date End Date O Jamia Escalona MD Referring Nonprofit Manager 01/12/20 Wood Processing Worker Relationship Specialty Start Date End Date O Jamia Escalona MD Referring Nonprofit Manager 01/12/20 Wood Processing Worker Relationship Specialty Start Date End Date O Jamia Escalona MD Referring Nonprofit Manager 01/12/20 Wood Processing Worker Relationship Specialty Start Date End Date O Jamia Escalona MD Referring Nonprofit Manager 01/12/20 Wood Processing Worker Relationship Specialty Start Date End Date O Jamia Escalona MD Referring Nonprofit Manager 01/12/20 Wood Processing Worker Relationship Specialty Start Date End Date O Jamia Escalona MD Referring Nonprofit Manager 01/12/20 Wood Processing Worker Relationship Specialty Start Date End Date O Jamia Escalona MD Referring Nonprofit Manager 01/12/20 Wood Processing Worker Relationship Specialty Start Date End Date O Jamia Escalona MD Referring Nonprofit Manager 01/12/20 Wood Processing Worker Relationship Specialty Start Date End Date Ga Marques PA-C [address] [place] [address] PCP - General 02/11/23 Rigoberto Montano DO [address] [facility] [address], [place] [address] Referring Physician Obstetrics and Gynecology 03/23/24 Wood Processing Worker Relationship Specialty Start Date End Date O Jamia Escalona MD Referring Nonprofit Manager 01/12/20 Team Status: Active Member Role Status Dates PHYSICIAN NO FAMILY Primary Care Provider Active Team Status: Inactive Member Role Status Dates Rigoberto Montano Attending Provider Active Start: [place] [facility] 2023 End: January 25, 2024 PHYSICIAN NO FAMILY Primary Care Provider Active Start: January 25, 2024 End: January 25, 2024 Team Status: Inactive Member Role Status Dates PHYSICIAN NO FAMILY Primary Care Provider Active Start: April 05, 2024 End: April 05, 2024 Miquel Andrews PA-C Emergency Provider Active Start: April 05, 2024 End: April 05, 2024 Wood Processing Worker Relationship Specialty Start Date End Date O Jamia Escalona MD Referring Nonprofit Manager 01/12/20 Team Status: Active Member Role Status Dates NON STAFF Primary Care Provider Active Team Status: Inactive Member Role Status Dates Rigoberto Montano Attending Provider Active Start: [place] 2023 End: April 24, 2024 NON STAFF Primary Care Provider Active Start: April 24, 2024 End: April 24, 2024 Wood Processing Worker Relationship Specialty Start Date End Date O Jamia Escalona MD Referring Nonprofit Manager 01/12/20 Wood Processing Worker Relationship Specialty Start Date End Date O Jamia Escalona MD Referring Nonprofit Manager 01/12/20 Wood Processing Worker Relationship Specialty Start Date End Date O Jamia Escalona MD Referring Nonprofit Manager 01/12/20 Wood Processing Worker Relationship Specialty Start Date End Date O Jamia Escalona MD Referring Nonprofit Manager 01/12/20 Goals (unrecognized section and content) Goals may be documented in a n alternate sectionGoals may be documented in an alternate sectionGoals may be documented in an alternate sectionGoals may be documented in an alternate sectionGoals may be documented in an alternate sectionGoals may be documented in an alternate sectionGoals may be documented in an alternate sectionGoals may be documented in an alternate sectionGoals may be documented in an alternate sectionGoals may be documented in an alternate sectionGoals may be documented in an alternate sectionGoals may be documented in an alternate sectionGoals may be documented in an alternate sectionGoals may be documented in an alternate sectionGoals may be documented in an alternate sectionGoals may be documented in an alternate sectionGoals may be documented in an alternate sectionGoals may be documented in an alternate sectionGoals may be documented in an alternate sectionGoals may be documented in an alternate sectionGoals may be documented in an alternate section Source Comments (unrecognize d section and content) In the event this informatio n is protected by the Federal Confidentiality of Alcohol and Drug Abuse Patient Records regulations: The Federal rules restrict any use of the information to criminally investigate or prosecute any alcohol or drug abuse patient.[facility] the event this information is protected by the Federal Confidentiality of Alcohol and Drug Abuse Patient Records regulations: The Federal rules restrict any use of the information to criminally investigate or prosecute any alcohol or drug abuse patient.[facility] HospitalIn the event this information is protected by the Federal Confidentiality of Alcohol and Drug Abuse Patient Records regulations: The Federal rules restrict any use of the information to criminally investigate or prosecute any alcohol or drug abuse patient.[facility] Hospital[facility] the event this information is protected by the Federal Confidentiality of Alcohol and Drug Abuse Patient Records regulations: The Federal rules restrict any use of the information to criminally investigate or prosecute any alcohol or drug abuse patient.[facility] HospitalIn the event this information is protected by the Federal Confidentiality of Alcohol and Drug Abuse Patient Records regulations: The Federal rules restrict any use of the information to criminally investigate or prosecute any alcohol or drug abuse patient.[facility] Hospital[facility] the event this information is protected by the Federal Confidentiality of Alcohol and Drug Abuse Patient Records regulations: The Federal rules restrict any use of the information to criminally investigate or prosecute any alcohol or drug abuse patient.[facility] HospitalIn the event this information is protected by the Federal Confidentiality of Alcohol and Drug Abuse Patient Records regulations: The Federal rules restrict any use of the information to criminally investigate or prosecute any alcohol or drug abuse patient.[facility] HospitalIn the event this information is protected by the Federal Confidentiality of Alcohol and Drug Abuse Patient Records regulations: The Federal rules restrict any use of the information to criminally investigate or prosecute any alcohol or drug abuse patient.[facility] HospitalIn the event this information is protected by the Federal Confidentiality of Alcohol and Drug Abuse Patient Records regulations: The Federal rules restrict any use of the information to criminally investigate or prosecute any alcohol or drug abuse patient.[facility] HospitalIn the event this information is protected by the Federal Confidentiality of Alcohol and Drug Abuse Patient Records regulations: The Federal rules restrict any use of the information to criminally investigate or prosecute any alcohol or drug abuse patient.[facility] HospitalIn the event this information is protected by the Federal Confidentiality of Alcohol and Drug Abuse Patient Records regulations: The Federal rules restrict any use of the information to criminally investigate or prosecute any alcohol or drug abuse patient.[facility] HospitalIn the event this information is protected by the Federal Confidentiality of Alcohol and Drug Abuse Patient Records regulations: The Federal rules restrict any use of the information to criminally investigate or prosecute any alcohol or drug abuse patient.[facility] HospitalIn the event this information is protected by the Federal Confidentiality of Alcohol and Drug Abuse Patient Records regulations: The Federal rules restrict any use of the information to criminally investigate or prosecute any alcohol or drug abuse patient.[facility] HospitalIn the event this information is protected by the Federal Confidentiality of Alcohol and Drug Abuse Patient Records regulations: The Federal rules restrict any use of the information to criminally investigate or prosecute any alcohol or drug abuse patient.[facility] HospitalIn the event this information is protected by the Federal Confidentiality of Alcohol and Drug Abuse Patient Records regulations: The Federal rules restrict any use of the information to criminally investigate or prosecute any alcohol or drug abuse patient.[facility] HospitalIn the event this information is protected by the Federal Confidentiality of Alcohol and Drug Abuse Patient Records regulations: The Federal rules restrict any use of the information to criminally investigate or prosecute any alcohol or drug abuse patient.[facility] HospitalIn the event this information is protected by the Federal Confidentiality of Alcohol and Drug Abuse Patient Records regulations: The Federal rules restrict any use of the information to criminally investigate or prosecute any alcohol or drug abuse patient.[facility] HospitalIn the event this information is protected by the Federal Confidentiality of Alcohol and Drug Abuse Patient Records regulations: The Federal rules restrict any use of the information to criminally investigate or prosecute any alcohol or drug abuse patient.[facility] HospitalIn the event this information is protected by the Federal Confidentiality of Alcohol and Drug Abuse Patient Records regulations: The Federal rules restrict any use of the information to criminally investigate or prosecute any alcohol or drug abuse patient.[facility] HospitalIn the event this information is protected by the Federal Confidentiality of Alcohol and Drug Abuse Patient Records regulations: The Federal rules restrict any use of the information to criminally investigate or prosecute any alcohol or drug abuse patient.[facility] HospitalIn the event this information is protected by the Federal Confidentiality of Alcohol and Drug Abuse Patient Records regulations: The Federal rules restrict any use of the information to criminally investigate or prosecute any alcohol or drug abuse patient.[facility] HospitalIn the event this information is protected by the Federal Confidentiality of Alcohol and Drug Abuse Patient Records regulations: The Federal rules restrict any use of the information to criminally investigate or prosecute any alcohol or drug abuse patient.[facility] HospitalIn the event this information is protected by the Federal Confidentiality of Alcohol and Drug Abuse Patient Records regulations: The Federal rules restrict any use of the information to criminally investigate or prosecute any alcohol or drug abuse patient.[facility] HospitalIn the event this information is protected by the Federal Confidentiality of Alcohol and Drug Abuse Patient Records regulations: The Federal rules restrict any use of the information to criminally investigate or prosecute any alcohol or drug abuse patient.[facility] HospitalIn the event this information is protected by the Federal Confidentiality of Alcohol and Drug Abuse Patient Records regulations: The Federal rules restrict any use of the information to criminally investigate or prosecute any alcohol or drug abuse patient.[facility] HospitalIn the event this information is protected by the Federal Confidentiality of Alcohol and Drug Abuse Patient Records regulations: The Federal rules restrict any use of the information to criminally investigate or prosecute any alcohol or drug abuse patient.[facility] HospitalIn the event this information is protected by the Federal Confidentiality of Alcohol and Drug Abuse Patient Records regulations: The Federal rules restrict any use of the information to criminally investigate or prosecute any alcohol or drug abuse patient.[facility] HospitalIn the event this information is protected by the Federal Confidentiality of Alcohol and Drug Abuse Patient Records regulations: The Federal rules restrict any use of the information to criminally investigate or prosecute any alcohol or drug abuse patient.[facility] Reason for Visit (unrecogniz ed section and content) Reason Comments Patient Question Reason Comments Established Patient Follow Up Pain Reason Comments Established Patient Pain Swelling Reason Comments Radiology XR Reason Comments Schedule Surgery Reason Comments Surgical Followup Reason Comments Ingrown Toenail Established Patient Reason Comments PT Eval Patient Education PT Discharge Specialty Diagnoses / Procedures Referred By Kristy mcpherson Referred To Contact [facility] Diagnoses Type 2 diabetes mellitus with diabetic polyneuropathy, unspecified whether terminal manager insulin use (HCC) BMI 39.0-39.9,adult Difficulty walking Eversion deformity of foot, left Painful scar Procedures CONSULT TO PHYSICAL THERAPY PHYSICAL THERAPY EVALUATION HIGH COMPLEX 45 MINS Eulalia Fuentes DPM [address] [place] [address] [facility] [place] [address] Referral ID Status Reason Start Date Expiration Date V isits Requested Visits Authorized [id number] Closed Auto-Generate d Referral 11/25/2023 11/24/2024 1 1 Reason Comments Patient Update Patient Question Reason Comments Anesthesia Consult Reason Comments Annual Exam Reason Comments surgery question and infected toe Reason Comments Established Patient Pre-Op Visit Reason Comments FMLA Paperwork Reason Comments Established Patient Post Op Reason Comments Patient Update Reason Comments Post Op Reason Comments Disability INFORMATION SOURCE (unrecogn ized section and content) DATE CREATED AUTHOR 02/12/2023 [employer] DATE CREATED AUTHOR AUTHOR'S ORGANIZ ATION 03/19/2023 [facility] DATE CREATED AUTHOR AUTHOR'S ORGANIZ ATION 03/29/2023 [facility] DATE CREATED AUTHOR AUTHOR'S ORGANIZ ATION 06/14/2023 [facility] DATE CREATED AUTHOR AUTHOR'S ORGANIZ ATION 05/06/2024 [facility] DATE CREATED AUTHOR AUTHOR'S ORGANIZ ATION 05/27/2024 [facility] DATE CREATED AUTHOR AUTHOR'S ORGANIZ ATION 06/15/2024 [facility] DATE CREATED AUTHOR AUTHOR'S ORGANIZ ATION 07/07/2024 [facility] DATE CREATED AUTHOR AUTHOR'S ORGANIZ ATION 07/15/2024 [facility] FOR RECORDS PERTAINING TO PATIENTS WHO ARE OR HAVE BEEN ENROLLED IN A CHEMICAL DEPENDENCY/SUBSTANCEABUSE PROGRAM, SOME INFORMATION MAY BE OMITTED. This clinical summary was aggregated from multiple sources. Caution should be exercised in using it in the provision of clinical care. This summary normalizes information from multiple sources, and as a consequence, information in this document may materially change the coding, format and clinical context of patient data. In addition, data may be omitted in some cases. CLINICAL DECISIONS SHOULD BE BASED ON THE PRIMARY CLINICAL RECORDS. [facility] provides no warranty or guarantee of the accuracy or completeness of information in this document.
[2024-07-16 06:41] LABS: Basophils Absolute Auto 0.1 10^3/uL (0.0-0.1); Basophils Percent Auto 0.5 % (0.2-2.0); Eosinophils Absolute Auto 0.2 10^3/uL (0.0-0.7); Eosinophils Percent Auto 1.5 % (0.9-7.0); Immature Granulocytes Abs Auto 0.03 10^3/uL (0.00-0.03); Immature Granulocytes Pct Auto 0.2 % (0.0-0.5); Lymphocytes Absolute Auto 4.3 10^3/uL (1.2-3.8); Lymphocytes Percent Auto 34.8 % (20.5-60.0); Mean Corpuscular HGB Conc 33.3 g/dL (29.9-35.2); Mean Corpuscular Hemoglobin 30.2 pg (26.7-34.0); Mean Corpuscular Volume 90.7 fL (81.0-99.0); Mean Platelet Volume 10.2 fL (9.5-13.5); Monocytes Absolute Auto 0.7 10^3/uL (0.3-0.8); Monocytes Percent Auto 5.9 % (1.7-12.0); Neutrophils Percent Auto 57.1 % (43.0-75.0); Platelet Count 366 10^3/uL (150-450); Red Cell Distribution Width 13.4 % (11.0-15.0); White Blood Count 12.2 10^3/uL (4.0-11.0)
[2024-07-16] MEDS: LACTATED RINGER'S SOLUTION 1,000 ML 50 ML IV (07:01)
--- NOTE | 2024-07-16 08:30 | P.ON_ITS ---
Brief Operative Note Date of procedure: 07/16/24 Pre-op diagnosis general: pelvic pain, rt ovarian cyst, omental adhesions Post-op diagnosis: same as pre-op Procedure: NAME OF PROCEDURE: robotic assisted rt oopherectomy and lysis of omental adhesions PROCEDURE: The patient was taken back to the Operating Room where she was given general anesthesia without difficulty. She was then prepped and draped in the normal sterile fashion after being placed in a dorsal lithotomy position. A wet sponge stick was placed into the patient's vagina. Attention was then turned to the patient's abdomen, where a scalpel was used to make a small infraumbilical incision. The S retractors were then used to dissect the underlying layers until the fascia could be seen. The fascia was then grasped with Jorge clamps and tented up. A knife was then used to make a small incision to the fascia. The muscle was identified, at that time two sutures of #0 Vicryl on a GI needle was then used and placed through the fascia. the peritoneum was then identified and entered bluntly. The 10-4 Irma was then placed into the patient's abdomen. This was confirmed with direct visualization of the bowel, using the laparoscope. The patient's abdomen was then insufflated using approximately 4 liters of CO2 gas. Survey of the patient's abdomen demonstrated ovaries were normal in appearance as well as both tubes and uterus. A second and third rt and lt lateral robotic ports which were 8 mm in size, was then placed after the skin incision was made under direct visualization . the robotic arms were engaged. The patient's rt ovary was identified and was appeared to be torsed, normal appearing lt ovary that was attached to epicloic fat, absent uterus. the vessel sealer was used to perform rt oopherectomy. excellent hemostasis, lysis of omental adhesions from the anterior abdominal wall, The endocatch was used to remove the ovary from the abdomen throught the port Excellent hemostasis was noted. The lateral ports were then moved under direct visualization with excellent hemostasis. All instruments were removed from the patient's abdomen. The fascia was closed using the #0 Vicryl on GI needle. The skin was closed using 4-0 Vicryl subcuticularly. All instruments were removed from the patient's vagina as well. The patient was taken out of the dorsal lithotomy position and placed in the supine position and taken to recovery in stable condition. Sponge, lap and needle counts were correct x2. Anesthesia: ERIK Surgeon: Rigoberto Montano Sample Maker Original: Meena Roa Estimated blood loss (mL): 5 Pathology: other (rt ovary) Condition: stable Disposition: PACU
[2024-07-16] MEDS: CLINDAMYCIN PHOS 900 MG/50 ML D5W PREMIX 100 MG IV (08:51)
[2024-07-16] MEDS: HYDROMORPHONE HCL 0.5 MG/0.5 ML SYRINGE IV ×2 (09:17→09:31)
[2024-07-16] MEDS: HYDROCODONE/ACET 5-325 MG TABLET 1 TAB PO (09:45)
== END 2024-07-16 11:02 | disposition home or self-care (01) ==
PROVIDERS: Visit Provider Obstetrics & Gynecology
PROC: (CPT 840; principal; 2024-07-16 07:30)
DX: D27.0 Benign neoplasm of right ovary (principal); R10.2 Pelvic and perineal pain; K66.0 Peritoneal adhesions (postprocedural) (postinfection); Z90.710 Acquired absence of both cervix and uterus; Z98.51 Tubal ligation status; Z90.49 Acquired absence of other specified parts of digestive tract; F17.210 Nicotine dependence, cigarettes, uncomplicated; J45.909 Unspecified asthma, uncomplicated; E11.9 Type 2 diabetes mellitus without complications; M79.7 Fibromyalgia; I25.10 Atherosclerotic heart disease of native coronary artery without angina pectoris; I10 Essential (primary) hypertension; E78.00 Pure hypercholesterolemia, unspecified; N28.9 Disorder of kidney and ureter, unspecified; Z79.85 Long-term (current) use of injectable non-insulin antidiabetic drugs; K21.9 Gastro-esophageal reflux disease without esophagitis
CPT/HCPCS: 58661; 36415; 85025; 88305; J0131; J0736; J1100; J1170; J2001; J2250; J2405; J2704; J3010

== ENCOUNTER 2025-05-24 22:16 | Outpatient (REF) | payer OTHER, SELFPAY ==
--- OUTSIDE RECORDS SUMMARY | 2025-05-24 22:38 | XMS_ITS | CCD ---
Author Organization [facility] Care Team Providers Care Ecology Professor Name Role Phone NON STAFF Primary Care Provider DO Robert Singh Emergency Provider IVONE Marques Primary Care Provider IVONE Andrews Emergency Provider [phone] Corrina Escalona MD, Jamia Bueno Unavailable [phone] Angelo, [facility]- Radha Seay Emergency Provider IVONE Marques Attending Provider [phone] MD Aleksandr Viera Attending Provider IVONE Marques Primary Care Provider DO Mk Parker Emergency Provider [phone] IVONE Marques Primary Care Provider Rigoberto Montano Attending Provider [phone] Corrina Escalona MD, [facility] Unavailable [phone] CASIE Rondon Emergency Provider IVONE Marques Attending Provider IVONE Andrews Emergency Provider IVONE Marques Primary Care Provider MD Aleksandr Viera Attending Provider IVONE Marques Primary Care Provider CASIE Laguna Emergency Provider IVONE Marques Primary Care Provider [facility], DO Isidoro M Emergency Provider IVONE Marques Primary Care Provider CASIE Laguna Emergency Provider [phone] Tude, DO Isidoro M Emergency Provider Rigoberto Montano Attending Provider IVONE Marques Primary Care Provider [facility], DO Isidoro M Emergency Provider [phone] [facility] Provider DO Aron Trevino Emergency Provider Ga Moran Unavailable Unavailable Unavailable IVONE Marques Primary Care Provider [facility], DO Chaudhry M Emergency Provider [phone] Rigoberto Montano Attending [facility] Radha E Emergency Provider DO Aron Trevino Emergency Provider MD Krystal Keller Attending Provider [phone] Joe Meek Attending Unavailable Krystal Koehler Attending Unavailable Krystal Koehler Referring Unavailable FAMILY, HEALTH SERVICES Primary Care Unavaila ble DUSTY ., DR FRANKLIN Attending Unavailable DUSTY ., DR FRANKLIN Admitting Unavailable DUSTY ., DR FRANKLIN Consulting Unavailable FAMILY, HEALTH SERVICES Primary Care Unavaila ble DUSTY ., DR FRANKLIN Attending Unavailable DUSTY ., DR FRANKLIN Admitting Unavailable DUSTY ., DR FRANKLIN Admitting Unavailable FAMILY, HEALTH SERVICES Primary Care Unavaila ble DUSTY ., DR FRANKLIN Attending Unavailable DUSTY ., DR FRANKLIN Consulting Unavailable DUSTY ., DR FRANKLIN Consulting Unavailable FAMILY, HEALTH SERVICES Primary Care Unavaila ble DUSTY ., DR FRANKLIN Attending Unavailable DUSTY ., DR FRANKLIN Admitting Unavailable DUSTY ., DR FRANKLIN Consulting Unavailable FAMILY, HEALTH SERVICES Primary Care Unavaila ble DUSTY ., DR FRANKLIN Attending Unavailable DUSTY ., DR FRANKLIN Admitting Unavailable DUSTY ., DR FRANKLIN Admitting Unavailable MISC, DR SIFUENTES Primary Care Unavailable DUSTY ., DR FRANKLIN Attending Unavailable DUSTY ., DR FRANKLIN Admitting Unavailable MISC, DR SIFUENTES Primary Care Unavailable DUSTY ., DR FRANKLIN Attending Unavailable DUSTY ., DR FRANKLIN Admitting Unavailable DUSTY ., DR FRANKLIN Attending Unavailable MISC, DR SIFUENTES Primary Care Unavailable DUSTY ., DR FRANKLIN Attending Unavailable DUSTY ., DR FRANKLIN Admitting Unavailable FAMILY, HEALTH SERVICES Primary Care Unavaila ble FAMILY, HEALTH SERVICES Primary Care Unavaila ble GA MARQUES Consulting Unavailable SHELLI, GA Attending Unavailable GA MARQUES Admitting Unavailable DUSTY ., DR FRANKLIN Admitting Unavailable MISC, DR SIFUENTES Primary Care Unavailable DUSTY ., DR FRANKLIN Attending Unavailable DUSTY ., DR FRANKLIN Consulting Unavailable IVONE Marques Primary Care Provider IVONE Andrews Emergency Provider [phone] Rodo, Dr. Rice Attending Unavailable Rodo, Dr. Rice Referring Unavailable Koehler, Dr. Rice Attending Unavailable Koehler, Dr. Rice Attending Unavailable Koehler, Dr. Rice Attending Unavailable CASIE Rondon Emergency Provider IVONE Marques Primary Care Provider CASIE Rondon Emergency Provider DO Isidoro Moya Emergency Provider [phone] Jamia Johansen MD Unavailable IVONE Marques Primary Care Provider CASIE Rondon Emergency Provider IVONE Marques Attending Provider Ga Marques PA-C Primary Care Provider Rigoberto Montano DO Unavailable Rigoberto Montano Attending Provider NO FAMILY, PHYSICIAN Primary Care Provider Unava ilable IVONE Andrews Emergency Provider NO FAMILY, PHYSICIAN Primary Care Provider Unava ilable Rigoberto Montano Attending Provider NON STAFF Primary Care Provider Unavailabl e SUKHKATINAARMIN JESSICA Primary Care Unavailable DustyDO Franklin Attending Provider Rigoberto Montano DO Attending Provider NON STAFF Primary Care Provider Unavailabl e Mk Parker DO Emergency Provider Unavailable Primary Care Provider Unavailabl e SEVERIANO VIRK Referring Unavailable GINA, EULALIA Attending Unavailable GINA, EULALIA Attending Unavailable GINA, EULALIA Attending Unavailable GINA, EULALIA Attending Unavailable SELF Referring Unavailable GINA, EULALIA Attending Unavailable GINA, EULALIA Attending Unavailable GINA, EULALIA Attending Unavailable GINA, EULALIA Attending Unavailable SELF Referring Unavailable GINA, EULALIA Attending Unavailable GINA, EULALIA Referring Unavailable GINA, EULALIA Attending Unavailable GINA, EULALIA Attending Unavailable GINA, EULALIA Attending Unavailable GINA, EULALIA Referring Unavailable DustyRigoberto owen DO Sejal Unavailable NON STAFF Primary Care Provider UnavailEulalia Marshall MD Emergency Provider [phone] Be Laguna APRN Emergency Provider Miquel Andrews PA-C Emergency Provider NON STAFF Primary Care Provider Unavailabl e NO FAMILY, PHYSICIAN Primary Care Provider Unava ilable Ga Bolanos MD Emergency Provider Aron Trevino DO Emergency Provider Unavai KRYSTAL Castro Attending Unavailable KRYSTAL KOEHLER Referring Unavailable GA MARQUES Primary Care Unavailable KRYSTAL KOEHLER Attending Unavailable KRYSTAL KOEHLER Referring Unavailable Momo York PA-C Emergency Provider Lynn Montano DOy Unavailable RIGOBERTO MONTANO Attending Unavailable RIGOBERTO MONTANO Attending Unavailable RIGOBERTO MONTANO Attending Unavailable IRIS SAMSON Attending Unavailable Ga Bolanos Jr Attending Unavailable NO FAMILY, PHYSICIAN Primary Care Unavailable Ga Bolanos Jr Admitting Unavailable NO FAMILY, PHYSICIAN Primary Care Unavailable Aron Trevino Admitting Unavailable Aron Trevino Attending Unavailable NO FAMILY, PHYSICIAN Primary Care Unavailable Momo York Attending Unavailable Momo York Admitting Unavailable NON STAFF Primary Care Unavailable Mk Parker Admitting Unavailable Mk Parker Attending Unavailable Eulalia Cobb Admitting Unavailable Eulalia Cobb Attending Unavailable NON STAFF Primary Care Unavailable NON STAFF Primary Care Unavailable Be Laguna Admitting Unavailable Be Laguna Attending Unavailable Rigoberto Montano Admitting Unavailable Rigoberto Montano Attending Unavailable NO FAMILY, PHYSICIAN Primary Care Unavailable Rosita Joseph Admitting Unavailable Rosita Joseph Attending Unavailable Miquel Andrews Admitting Unavailable Miquel Andrews Attending Unavailable NON STAFF Primary Care Unavailable Allergies Allergy Classification Reported Allergen(s) Allergy Type Date of Onset Reaction(s) Facility Corticosteroids (2 sources) predniSONE Drug Allergy 1 Other: See Comments [facility] NSAIDs (2 sources) Ketorolac Drug Allergy 0 [facility] Opioid Agonists (2 sources) traMADol Drug Allergy 0 Other: See Comments [facility] (20 sources) Ketorolac; Translations: [KETOROLAC] Drug Allergy 0 [facility] (20 sources) predniSONE; Translations: [prednisone] Drug Allergy 1 Other: [facility], [facility] Comment on above: MAKES ME CRAZY (20 sources) traMADol; Translations: [tramadol] Drug Allergy 0 Other: See Comments, Anaphylaxis, Other, [facility] Comment on above: STOPS HEART (1 source) Ketorolac Drug Allergy [facility] Medications Current Medications Medication Drug Class(es) Dates Sig (Normalized) Sig (Original) acetaminophen 500 mg oral tablet (20 sources) Start: 02-10-2025 take 2 tablets by mouth three times daily Acetaminophen 500 mg tablet Active 1000 MG PO Three times daily February 10, 2025 12:00am Start: 06-06-2023 End: 11-22-2024 Acetaminophen Extra Strength 500 MG tablet 06/06/2023 Active Start: 01-09-2022 take 2 tablets by mo ut every eight hours acetaminophen (TYLENOL) 500 mg tablet take 2 tablets by mouth every 8 hours if needed 01/09/2022 Active Comment on above: take 2 tablets by mo uth every 8 hours if needed acetaminophen 325 mg / HYDROcodone bitartrate 5 mg oral tablet (20 sources) Opioid Agonist Start: 04-15-2025 take 1 tablet by mouth every four to six hours as needed for pain Hydrocodone-Acet aminophen 5-325 mg tablet Active 1 TAB PO EVERY 4-6 HOURS as needed for pain 7 3 April 15, 2025 Start: 02-10-2025 take 1 tablet by rach every six hours as needed for pain Hydrocodone-Acetaminophen 5-325 mg table t Active 1 - 2 TAB PO Q6H as needed for pain 15 3 March 20, 2025 Start: 05-23-2023 End: 10-23-2023 take 1 tablet by mouth every six hours as needed for pain Hydrocodone-Acetaminophen 5-325 mg table t Discontinued 1 TAB PO Q6H as needed for pain 8 3 July 01, 2023 October 23, 2023 8:16pm Start: 05-21-2022 End: 09-13-2022 take 1 tablet by mouth every six hours as needed for pain Hydrocodone-Acetaminophen 5-325 mg table t Discontinued 1 TAB PO Q6H as needed for pain 28 7 May 21, 2022 September 13, 2022 9:21am Start: 02-20-2022 End: 03-08-2022 take 1 tablet by mouth every six hours as needed for pain Hydrocodone-Acetaminophen 5-325 mg table t Discontinued 1 TAB PO Q6H as needed for pain 12 3 February 20, 2022 March 08, 2022 10:50am acetaminophen 325 mg / oxyCODONE hydrochloride 5 mg oral tablet (1 source) Opioid Agonist Start: 05-01-2024 End: 05-06-2024 take 1 tablet by mouth every six hours as needed for pain oxyCODONE-acetaminophen (PERCOCET) 5-325 mg tablet Indications: pain Take 1 tablet by mouth every 6 hours as needed for pain for up to 5 days. 20 tablet 0 05/01/2024 05/06/2024 Active [id number] 200 actuat albuterol 0.09 mg/actuat metered dose inhaler (20 sources) beta2-Adrene rgic Agonist Start: 06-02-2023 Ventolin HFA 108 (90 Base) MCG/ACT inhaler 06/02/2023 Active Start: 02-07-2022 End: 03-20-2024 take 2 puff(s) [...] as instructed every 6 hours as needed. 03/24/2020 Active take 2 puff(s) by in [...] on above: inhale 2 puffs by mo uth and INTO THE LUNGS every 4 hours if needed Inhale 2 Puffs as in structed every 6 hours as needed. amitriptyline hydrochloride 50 mg oral tablet (20 sources) Tricyclic Antidepressant Start: 10-16-20 take 1 tablet by mouth once daily at bedtime amitriptyline (ELAVIL) 50 mg tablet Take 50 mg by mouth daily at bedtime. 10/16/2021 Active Comment on above: Take 50 mg by mouth daily at bedtime. amoxicillin 875 mg / clavulanate 125 mg oral tablet (3 sources) Penicillin-class Antibacterial Start: 03-20-20 take 1 tablet by mouth twice daily Amoxicillin-Pot Clavulanate 875-125 mg tablet Active 1 TAB PO Twice daily 14 March 20, 2025 12:00am atorvastatin (20 sources) HMG-CoA Reductase Inhibitor atorvastatin calcium (ATORVASTATIN ORAL) Take by mouth once daily. Active atorvastatin sudhir cium (ATORVASTATIN ORAL) Take by mouth once daily. 0 Active Boric Acid 600 MG suppository (3 sources) Start: 05-06-2025 Boric Acid 600 MG suppository Indications: Yeast infection Insert 600 mg into the vagina Daily 14 suppository 05/06/2025 Active cariprazine 4.5 mg oral capsule (20 sources) Atypical Antipsychotic Start: 10-17-2021 take 1 capsule by mouth once daily VRAYLAR 4.5 mg capsule take 1 take by mouth once daily 10/17/2021 Active Comment on above: take 1 take by mouth once daily cefadroxil 500 mg oral capsule (3 sources) Cephalosporin Antibacterial Start: 03-17-2024 End: 03-24-2024 take 1 capsule by mouth twice daily cefADROxil (DURICEF) 500 mg capsule Take 1 capsule by mouth two times a day for 7 days. 14 capsule 0 03/17/2024 03/24/2024 Active cephalexin 500 mg oral capsule (20 sources) Cephalosporin Antibacterial Start: 04-15-2025 take 2 capsules by mouth twice daily Cephalexin 500 mg capsule Active 1000 MG PO Twice daily 21 06April 15, 2025 12:00am Start: 10-23-2023 End: 11-22-2024 take 1 capsule by mouth three times daily Cephalexin 500 mg capsule Discontinued 500 MG PO Three times daily 14 06October 23, 2023 1:00am November 22, 2024 1:52pm Start: 07-01-2023 End: 10-23-2023 take 1 capsule by mouth every eight hours Cephalexin 500 mg capsule Discontinued 500 MG PO Q8H 30 July 01, 2023 12:00am October 23, 2023 8:16pm Start: 08-03-2022 End: 01-04-2023 take 1 capsule by mouth every eight hours Cephalexin 500 mg capsule Discontinued 500 MG PO Q8H 30 August 03, 2022 12:00am January 04, 2023 2:35pm cetirizine hydrochloride 10 mg oral tablet (4 sources) Histamine-1 Receptor Antagonist Start: 02-10-2025 take 1 tablet by mouth once daily Cetirizine (All Day Allergy (Cetirizine)) 10 mg tablet Active 10 MG PO Daily February 10, 2025 12:00am citalopram 20 mg oral tablet (20 sources) Serotonin Reuptake Inhibitor Start: 10-16-2021 take 1 tablet by mouth once daily at bedtime citalopram (CELEXA) 20 mg tablet Take 20 mg by mouth daily at bedtime. 10/16/2021 Active Comment on above: Take 20 mg by mouth daily at bedtime. clindamycin 300 mg oral capsule (20 sources) Lincosamide Antibacterial Start: 04-15-2025 take 1 capsule by mouth every eight hours Clindamycin Hcl 300 mg capsule Active 300 MG PO Every 8 hours 14 06April 15, 2025 12:00am Start: 04-05-2024 End: 11-22-2024 take 2 capsules by mouth every six hours Clindamycin Hcl 150 mg capsule Discontinued 300 MG PO Q6H 80 April 05, 2024 12:00am November 22, 2024 1:52pm Start: 04-05-2024 take 300 mg by mouth every six hours Clindamycin Hcl Active 300 MG PO Q6H 80 April 05, 2024 12:00am Start: 02-20-2022 End: 03-08-2022 take 2 capsules by mouth every six hours Clindamycin Hcl 150 mg capsule Discontinued 300 MG PO Q6H 80 February 20, 2022 12:00am March 08, 2022 10:50am Start: 02-20-2022 End: 03-08-2022 take 300 mg by mouth every six hours Clindamycin Hcl Discontinued 300 MG PO Q6H 80 February 20, 2022 12:00am March 08, 2022 10:50am cyclobenzaprine hydrochloride 10 mg oral tablet (20 sources) Muscle Relaxant Start: 10-04-2022 take 1 tablet by mouth twice daily cyclobenzaprine (Flexeril) 10 MG tablet take 1 tablet by mouth twice a day if needed for 15 DAYS 10/04/2022 Active Start: 03-08-2022 End: 10-23-2023 take 1 tablet by mouth three times daily as needed for muscle spasms Cyclobenzaprine 10 mg tablet Discontinued 10 MG PO Three times daily as needed for muscle spasm March 08, 2022 12:00am October 23, 2023 8:16pm doxycycline hyclate 100 mg oral capsule (20 sources) Tetracycline-class Drug Start: 03-20-2025 take 1 capsule by mouth twice daily Doxycycline Hyclate 100 mg capsule Active 100 MG PO Twice daily 14 March 20, 2025 12:00am Start: 01-09-2022 take 1 tablet by rach th twice daily doxycycline (VIBRA-TABS) 100 mg tablet take 1 tablet by mouth twice a day for 10 days 01/09/2022 Active Comment on above: take 1 tablet by rach th twice a day for 10 days empagliflozin 25 mg oral tablet (8 sources) Sodium-Glucose Cotransporter 2 Inhibitor Start: 11-22-20 take 1 tablet by mouth once daily Empagliflozin (Jardiance) 25 mg tablet Active 25 MG PO Daily November 22, 2024 1:00am 24 hr etodolac 500 mg extended release oral tablet (20 sources) Nonsteroidal Anti-inflammatory Drug Start: 10-20-20 take 1 tablet by mouth once daily as needed for pain etodolac (LODINE-XL) 500 mg 24 hr tablet take 1 tablet by mouth once daily NEEDED FOR PAIN with food 10/20/2021 Active Comment on above: take 1 tablet by rach th once daily NEEDED FOR PAIN with food fluconazole 150 mg oral tablet (2 sources) Azole Antifungal Start: 05-03-20 End: 05-03-20 take 1 tablet by mouth once, then take 1 tablet by mouth once fluconazole (Diflucan) 150 MG tablet Indications: Yeast infection Take 1 tablet (150 mg) by mouth 1 (one) time for 1 dose This is a 1 time dose, take single tablet by mouth. 1 tablet 1 05/03/2025 05/03/2025 Active 120 actuat fluticasone propionate 0.11 mg/actuat metered dose inhaler (20 sources) Corticosteroid Start: 01-11-20 take 2 puff(s) by mouth twice daily FLOVENT HFA 110 mcg/actuation inhaler inhale 2 puffs by mouth and INTO THE LUNGS twice a day 01/11/2022 Active Start: 01-10-2022 take 1 spray(s) nasa l route twice daily fluticasone (FLONASE) 50 mcg/actuation nasal spray instill 1 spray into each nostril twice a day 01/10/2022 Active take 1 puff(s) by mo uth twice daily fluticasone (Flovent HFA) 110 mcg/actuation [...] on above: inhale 2 puffs by mo [facility] and INTO THE LUNGS twice a day instill 1 spray into each nostril twice a day 1.5 ml fremanezumab-vfrm 150 mg/ml auto-injector (20 sources) Start: 03-08-2022 Fremanezumab-Vfrm (Ajovy Autoinjector) 225 mg/1.5 mL auto-injector Active MG SUBCUT March 08, 2022 10:50am Start: 03-08-2022 End: 02-10-2025 Fremanezumab-Vfrm (Ajovy Aut oinjector) 225 mg/1.5 mL auto-injector Discontinued 225 MG SUBCUT every month March 08, 2022 12:00am February 10, 2025 2:58pm Start: 01-24-2022 Ajovy 225 MG/1 .5ML auto-injector 06/02/2023 Active fremanezumab (Aj ovy Autoinjector) 225 mg/1.5 mL auto-injector Inject 1 Pen (225 mg) under the skin every 30 (thirty) days. Active Ajovy 225 MG/1.5 ML Subcutaneous Solution Auto-injector once monthly Quantity: 0 Refills: 0 Ordered: 11-Feb-2023 DO Active Comment on above: inject subcutaneousl y as directed furosemide 20 mg oral tablet (20 sources) Loop Diuretic Start: 02-11-2023 End: 01-11-2026 furosemide (Lasix) 20 MG tablet 06/02/2023 Active Start: 03-08-2022 Furosemide Act johnny MG TABLET March 08, 2022 10:50am Start: 01-10-2022 take 1 tablet by rach th once daily Furosemide 40 mg tablet Active 40 MG PO Daily March 08, 2022 12:00am Comment on above: take 1 tablet by rach th once daily if needed for SWELLING lidocaine 0.05 mg/mg medicated patch (20 sources) Antiarrhythmic, Amide Local Anesthetic Start: 02-10-2025 apply 1 dose topically every twenty-four hours Lidocaine 5 % adhesive patch,medicated Active 1 PATCH TOPICAL Q24H February 10, 2025 12:00am leave on most painful area for up to 12 hrs Start: 01-13-2023 End: 10-23-2023 apply 1 dose topically once daily as needed for pain Lidocaine (Lidoderm) 5 % adhesive patch,medicated Discontinued 1 PATCH TOPICAL Daily as needed for chest pain January 13, 2023 3:34am October 23, 2023 8:16pm leave on most painful area for up to 12 hrs Start: 06-24-2020 apply 1 dose transde rmal route every twenty-four hours lidocaine (SALONPAS) 4 % patch Apply 1 Patch as directed q 24 HR. 06/24/2020 Active Comment on above: Apply 1 Patch as dir ected q 24 HR. loratadine 10 mg oral tablet (20 sources) Start: 01-11-2022 take 1 tablet by mouth once daily loratadine (CLARITIN) 10 mg tablet Take 10 mg by mouth once daily. 01/11/2022 Active take 1 tablet by mouth once leti y loratadine (Claritin Reditabs) 10 mg disintegrating tablet Dissolve 1 tablet (10 mg) in the mouth once daily. Active take 1 capsule by mouth once ayah ly Claritin 10 MG Oral Capsule TAKE 1 CAPSULE Daily Quantity: 0 Refills: 0 Ordered: 11-Feb-2023 DO Active Comment on above: Take 10 mg by mouth once daily. metFORMIN hydrochloride 1000 mg oral tablet (20 sources) Biguanide Start: 03-08-2022 Metformin Active MG TABLET March 08, 2022 10:50am Start: 01-09-2022 End: 01-03-2024 take 1 tablet by mouth twice daily Metformin 1,000 mg tablet Discontinued 1000 MG PO Twice daily March 08, 2022 12:00am October 23, 2023 8:16pm take 1 tablet by rach th once daily metFORMIN HCl - 1000 MG Oral Tablet TAKE 1 TABLET EVERY 12 HOURS DAILY. Quantity: 0 Refills: 0 Ordered: 11-Feb-2023 DO Active Comment on above: Take 1,000 mg by rach th twice daily with meals. methocarbamol 750 mg oral tablet (4 sources) Muscle Relaxant Start: 02-11-20 take 1 tablet by mouth three times daily Methocarbamol 750 mg tablet Active 750 MG PO Three times daily February 10, 2025 12:00am montelukast 10 mg oral tablet (20 sources) Leukotriene Receptor Antagonist Start: 03-08-20 Montelukast Active MG TABLET March 08, 2022 10:50am Start: 04-13-2020 take 1 tablet by rach th in the morning montelukast (Singulair) 10 MG tablet Take 10 mg by mouth in the morning. 04/04/2023 Active Comment on above: Take 10 mg by mouth. mupirocin 0.02 mg/mg topical ointment (20 sources) RNA Synthetase Inhibitor Antibacterial Start: 4 mupirocin (BACTROBAN) 2 % ointment Apply 1 application to affected area two times a day. 22 g 3 05/20/2024 Active Comment on above: Apply 1 application to affected area two times a day. omeprazole 20 mg delayed release oral capsule (20 sources) Proton Pump Inhibitor Start: 1 take 1 capsule by mouth once daily omeprazole (PRILOSEC) 20 mg capsule Take 20 mg by mouth once daily. 10/16/2021 Active omeprazole (PriL OSEC) [address] capsule 1 (one) time each day at the same time. Active take 1 tablet by rach th once daily before mealtime omeprazole OTC (PriLOSEC OTC) 20 mg EC tablet Take 1 tablet (20 mg) by mouth once daily in the morning. Take before meals. Do not crush, chew, or split. Active Comment on above: Take 20 mg by mouth once daily. Ozempic 0.25 mg or 0.5 mg (2 mg/3 mL) pen injector (1 source) Start: 4 End: 4 inject 0.5 mg by subcutaneous injection every week Ozempic 0.25 mg or 0.5 mg (2 mg/3 mL) pen injector Indications: Diabetes mellitus type II, non insulin dependent (Multi) , Hyperlipidemia, unspecified hyperlipidemia type DIAL AND INJECT UNDER THE SKIN 0.5 MG WEEKLY 3 mL 3 05/21/2024 07/06/2024 Discontinued Ozempic, 0.25 or 0.5 MG/DOSE, 2 MG/3ML solution pen-injector (10 sources) Start: 4 inject 0.5 mg by subcutaneous injection every week Ozempic, 0.25 or 0.5 MG/DOSE, 2 MG/3ML solution pen-injector Inject 0.5 mg under the skin once a week 03/23/2024 Active Start: 03-23-2024 End: 03-23-2025 inject 0.5 mg by subcutaneous injection every week Ozempic, 0.25 or 0.5 MG/DOSE, 2 MG/3ML solution pen-injector Inject 0.5 mg under the skin once a week 03/23/2024 03/23/2025 Active microencapsulated potassium chloride 20 meq extended release oral tablet (20 sources) Start: 03-15-2023 take 1 tablet by mouth three times daily at mealtime potassium chloride CR (Klor-Con M20) 20 MEQ ER tablet take 1 tablet by mouth three times a day with food 03/15/2023 Active Start: 01-10-2022 End: 03-23-2025 take 1 tablet by mouth once daily Potassium Chloride 20 mEq tablet,ER particles/crystals Active 20 MEQ PO Daily March 08, 2022 12:00am take 1 tablet by rach once daily Potassium Chloride ER 20 MEQ Oral Tablet Extended Release Take 1 tablet daily Quantity: 90 Refills: 3 Ordered: 11-Feb-2023 DO Active Comment on above: Take 20 mEq by mouth . prazosin 5 mg oral capsule (20 sources) alpha-Adrenergic Emmett Start: 10-16-2021 take 1 capsule by mouth once daily prazosin (MINIPRESS) 5 mg cap Take 5 mg by mouth once daily. 10/16/2021 Active Comment on above: Take 5 mg by mouth o nce daily. rizatriptan 5 mg oral tablet (20 sources) Serotonin-1b and Serotonin-1d Receptor Agonist Start: 03-08-2022 Rizatriptan Active MG TABLET March 08, 2022 10:50am Start: 02-07-2022 End: 11-22-2024 Rizatriptan 5 mg tablet Disc ontinued 5 MG PO As Directed as needed for Migraine Headache March 08, 2022 12:00am November 22, 2024 1:52pm rizatriptan (Max alt) 5 mg tablet Take 1 tablet (5 mg) by mouth 1 time if needed for migraine. May repeat in 2 hours if unresolved. Do not exceed 30 mg in 24 hours. Active Comment on above: take 1 tablet by rach th AT ONSET OF HEADACHE MAY TAKE A SECOND TAB... (REFER TO PRESCRIPTION NOTES). rOPINIRole 1 mg oral tablet (8 sources) Nonergot Dopamine Agonist take 1 tablet by mouth three times daily rOPINIRole (Requip) 1 mg tablet Take 1 tablet (1 mg) by mouth 3 times a day. Active take 2 tablets by mouth at bedti me rOPINIRole HCl - 1 MG Oral Tablet TAKE 2 TABLETS AT BEDTIME. Quantity: 0 Refills: 0 Ordered: 11-Feb-2023 DO Active 0.25 mg, 0.5 mg dose 1.5 ml semaglutide 1.34 mg/ml pen injector (1 source) semaglutide (Oze [facility]) 0.25 mg or 0.5 mg(2 mg/1.5 mL) pen injector Inject under the skin 1 (one) time per week. Active Semaglutide (4 sources) Start: 11-22-2024 inject 1 mg by subcutaneous injection once Semaglutide (Ozempic) 1 mg/dose (4 mg/3 mL) pen injector Active 1 MG SUBCUT .week November 22, 2024 1:00am semaglutide (Ozempic) 0.25 mg or 0.5 mg (2 mg/3 mL) pen injector (2 sources) Start: 07-12-2024 End: 11-01-2024 semaglutide (Ozempic) 0.25 mg or 0.5 mg (2 mg/3 mL) pen injector Indications: Diabetes mellitus type II, non insulin dependent (Multi) Inject 1 mg under the skin 1 (one) time per week. 6 mL 3 07/12/2024 11/01/2024 Active Start: 03-23-2024 End: 03-23-2025 semaglutide (Ozempic) 0.25 m g or 0.5 mg (2 mg/3 mL) pen injector Indications: Diabetes mellitus type II, non insulin dependent (Multi) , Hyperlipidemia, unspecified hyperlipidemia type Inject 0.5 mg under the skin every 7 days. 0.2 mL 1 03/23/2024 03/23/2025 Active semaglutide (OZEMPIC) 1 mg/dose (4 mg/3 mL) pen (3 sources) Start: 10-05-2024 inject 1 mg by subcutaneous injection every week semaglutide (OZEMPIC) 1 mg/dose (4 mg/3 mL) pen Inject 1 mg subcutaneously one time a week. 10/05/2024 Active SITagliptin 100 mg oral tablet (20 sources) Dipeptidyl Peptidase 4 Inhibitor Start: 11-22-2024 take 1 tablet by mouth once daily Sitagliptin Phosphate (Januvia) 100 mg tablet Active 100 MG PO Daily November 22, 2024 1:00am sitagliptin phos phate (JANUVIA ORAL) Take by mouth once daily. Active sitagliptin phos phate (JANUVIA ORAL) Take by mouth once daily. 0 Active spironolactone 50 mg oral tablet (20 sources) Aldosterone Antagonist Start: 02-11-2023 End: 01-11-2026 take 1 tablet by mouth once daily Spironolactone 50 mg tablet Active 50 MG PO Daily October 23, 2023 1:00am terconazole 4 mg/ml vaginal cream (3 sources) Azole Antifungal Start: 05-03-2025 End: 05-10-2025 terconazole (Terazol 7) 0.4 % vaginal cream Indications: Yeast infection Insert 1 applicator into the vagina at bedtime for 7 days 45 g 1 05/03/2025 05/10/2025 Active traZODone hydrochloride 300 mg oral tablet (20 sources) Serotonin Reuptake Inhibitor Start: 10-16-2021 take 1 tablet by mouth once daily traZODone HCl 300 mg tablet Take 300 mg by mouth once daily. 10/16/2021 Active End: 03-23-2024 take 1 tablet by mouth once daily at bedtime traZODone (Desyrel) 100 mg tablet Take 1 tablet (100 mg) by mouth once daily at bedtime. 03/23/2024 Discontinued (Therapy completed) take 2 tablets by [facility] [place] at bedtime traZODone HCl - 100 MG Oral Tablet TAKE 2 TABLETS AT BEDTIME. Quantity: 0 Refills: 0 Ordered: 11-Feb-2023 DO Active Comment on above: Take 300 mg by mouth once daily. Completed/Discontinued Medications Medication Drug Class(es) Dates Sig (Normalized) Sig (Original) biotin 10 mg oral capsule (6 sources) Start: 11-29-2020 End: 01-03-2024 take 1 capsule by mouth once daily Biotin 10,000 mcg cap Take 1 capsule by mouth once daily. 0 11/29/2020 01/03/2024 Discontinued (Course of therapy completed) Comment on above: Take 1 capsule by [place] once daily. cholecalciferol 1.25 mg oral capsule (6 sources) Vitamin D Start: 03-06-2021 End: 01-03-2024 cholecalciferol, Vitamin D3, (VITAMIN D3) 1,250 mcg (50,000 unit) cap capsule One capsule weekly for 8 weeks then q.month 0 03/06/2021 01/03/2024 Discontinued (Course of therapy completed) Comment on above: One capsule weekly f or 8 weeks then q.month 0.5 ml dulaglutide 3 mg/ml auto-injector (20 sources) GLP-1 Receptor Agonist Start: 10-23-2023 End: 10-05-2024 dulaglutide (TRULICITY) 1.5 mg/0.5 mL pen injector Inject 1.5 mg subcutaneously. 10/23/2023 10/05/2024 Discontinued (Course of therapy completed) inject 1.5 mg by sub cutaneous injection every week dulaglutide (Trulicity) 1.5 mg/0.5 mL pe n injector injection Inject 1.5 mg under the skin 1 (one) time per week. Active inject 1 [IU] by sub cutaneous injection every week Trulicity 1.5 MG/0.5ML Subcutaneous Solution Pen-injector INJECT 1 UNIT Weekly Quantity: 0 Refills: 0 Ordered: 11-Feb-2023 DO Active FLOWFLEX COVID-[address] kit (16 sources) Start: 01-10-2022 End: 03-20-2024 FLOWFLEX COVID-[address] kit Start: 01-10-2022 FLOWFLEX COVID -19 AG HOME TEST kit ibuprofen 800 mg oral tablet (20 sources) Nonsteroidal Anti-inflammatory Drug Start: 11-30-2022 End: 01-13-2023 take 1 tablet by mouth three times daily as needed for pain Ibuprofen 800 mg tablet Discontinued 800 MG PO Three times daily as needed for Pain November 30, 2022 1:00am January 13, 2023 2:48am meloxicam 15 mg oral tablet (20 sources) Nonsteroidal Anti-inflammatory Drug Start: 10-16-2021 End: 03-20-2024 take 1 tablet by mouth once daily meloxicam (MOBIC) 15 mg tablet Take 15 mg by mouth once daily. 0 10/16/2021 03/20/2024 Discontinued (Course of therapy completed) End: 03-23-2024 take 1 capsule by mouth once daily meloxicam submicronized 5 mg capsule Take 5 mg by mouth once daily. 03/23/2024 Discontinued (Therapy completed) Comment on above: Take 15 mg by mouth once daily. naproxen 500 mg oral tablet (20 sources) Nonsteroidal Anti-inflammatory Drug Start: End: take 1 tablet by mouth twice daily Naproxen (Naprosyn) 500 mg tablet Discontinued 500 MG PO Twice daily November 22, 2024 1:00am February 10, 2025 2:58pm Start: 09-21-2022 End: 01-13-2023 take 1 tablet by mouth twice daily as needed for pain Naproxen (Naprosyn) 500 mg tablet Discontinued 500 MG PO Twice daily as needed for pain September 21, 2022 12:00am January 13, 2023 2:48am Start: 06-29-2022 End: 09-13-2022 take 1 tablet by mouth twice daily as needed for pain Naproxen (Naprosyn) 500 mg tablet Discontinued 500 MG PO Twice daily as needed for pain June 29, 2022 12:00am September 13, 2022 9:21am Start: 03-08-2022 End: 05-11-2022 take 1 tablet by mouth twice daily as needed for pain Naproxen 500 mg tablet Discontinued 500 MG PO Twice daily as needed for pain March 08, 2022 12:00am May 11, 2022 10:31am administer with food or milk norethindrone 0.35 mg oral tablet (20 sources) Start: 05-11-2022 End: 03-23-2024 take 1 tablet by mouth once daily Norethindrone (Contraceptive) 0.35 mg tablet Discontinued 0.35 MG PO Daily May 11, 2022 12:00am October 23, 2023 8:16pm pregabalin 75 mg oral capsule (16 sources) Start: 10-16-2021 End: 03-20-2024 take 1 capsule by mouth twice daily pregabalin (LYRICA) 75 mg capsule Take 75 mg by mouth twice daily. 0 10/16/2021 03/20/2024 Discontinued (Course of therapy completed) Comment on above: Take 75 mg by mouth twice daily. 24 hr propranolol hydrochloride 80 mg extended release oral capsule (16 sources) beta-Adrenergic Emmett Start: 02-27-2020 End: 03-20-2024 take 1 capsule by mouth every twenty-four hours propranolol ER (INDERAL LA) 80 mg 24 hr capsule Take 80 mg by mouth. 0 02/27/2020 03/20/2024 Discontinued (Course of therapy completed) Comment on above: Take 80 mg by mouth. risperiDONE 1 mg oral tablet (16 sources) Atypical Antipsychotic Start: 10-16-2021 End: 03-20-2024 take 1 tablet by mouth twice daily risperiDONE (RISPERDAL) 1 mg tablet Take 1 mg by mouth twice daily. 0 10/16/2021 03/20/2024 Discontinued (Course of therapy completed) Comment on above: Take 1 mg by mouth t wice daily. semaglutide, weight loss, (WEGOVY) 0.25 mg/0.5 mL pen injector (1 source) Start: 07-23-2024 End: 01-23-2025 semaglutide, weight loss, (WEGOVY) 0.25 mg/0.5 mL pen injector Indications: Diabetes mellitus type II, non insulin dependent (Multi) , BMI 38.0-38.9,adult Inject 0.25 mg under the skin every 7 days. 6 mL 1 07/23/2024 01/23/2025 Discontinued (Therapy completed) sulfamethoxazole 800 mg / trimethoprim 160 mg oral tablet (20 sources) Dihydrofolate Reductase Inhibitor Antibacterial, Sulfonamide Antimicrobial Start: 11-17-2024 End: 02-10-2025 take 1 tablet by mouth twice daily Sulfamethoxazole-Tr imethoprim (Bactrim Ds) 800-160 mg tablet Discontinued 1 TAB PO Twice daily November 17, 2024 1:00am February 10, 2025 2:59pm Start: 08-20-2023 End: 10-23-2023 take 1 tablet by mouth twice daily Sulfamethoxazole-Trimethoprim (Bactrim D s) 800-160 mg tablet Discontinued 1 TAB PO Twice daily 13 09August 20, 2023 12:00am October 23, 2023 8:17pm Start: 07-01-2023 End: 10-23-2023 take 1 tablet by mouth every twelve hours Sulfamethoxazole-Trimethoprim (Bactrim D s) 800-160 mg tablet Discontinued 1 TAB PO Q12H 20 July 01, 2023 12:00am October 23, 2023 8:17pm Start: 08-03-2022 End: 09-13-2022 take 1 tablet by mouth every twelve hours Sulfamethoxazole-Trimethoprim (Bactrim D s) 800-160 mg tablet Discontinued 1 TAB PO Q12H 20 August 03, 2022 12:00am September 13, 2022 9:22am [...] 12:00am May 11, 2022 10:20am Start: 01-02-2022 End: 05-11-2022 Sumatriptan Succinate 100 mg tablet Discontinued MG PO March 08, 2022 12:00am May 11, 2022 10:20am Comment on above: take 1 tablet by rach if needed to ABORT MIGRAINE once daily [...] Corticosteroid Start: 11-30-19 End: 10-23-20 Triamcinolone Acetonide 0.1 % cream Discontinued 1 APPLIC TOPICAL Daily November 30, 2022 1:00am October 23, 2023 8:17pm Start: 06-01-2020 triamcinolone acetonide (NASACORT AQ) 55 mcg nasal inhaler Use 2 Sprays in the nose. 06/01/2020 Active Comment on above: Use 2 Sprays in the nose. verapamil hydrochloride 180 mg extended release oral tablet (16 sources) Calcium Channel Emmett Start: 1 End: 4 take 1 tablet by mouth once daily verapamil SR (CALAN SR, ISOPTIN SR) 180 mg CR tablet Take 180 mg by mouth once daily. 0 10/21/2021 03/20/2024 Discontinued (Course of therapy completed) Comment on above: Take 180 mg by mouth once daily. Problems Active Problems Problem Classification Problem Date Documented Da te Episodic/Chronic Allergic reactions (20 sources) Eczema; Translations: [Dermatitis, unspecified] 11-30-2022 Episodic Asthma (20 sources) Mild intermittent asthma; Translations: [Mild intermittent asthma, uncomplicated] Onset: 1 02-12-2022 Chronic Deficiency and other anemia (1 source) Anemia, unspecified; Translations: [ANEMIA UNSPECIFIED] Onset: 3 Episodic Diabetes mellitus with complications (20 sources) [...] esophagitis] Onset: 1 02-12-2022 Chronic Essential hypertension (14 sources) Essential hypertension; Translations: [Unspecified essential hypertension] Onset: 4 03-23-2024 Chronic Fluid and electrolyte disorders (20 sources) Acute hypokalemia; Translations: [Hypokalemia] Onset: 5 01-13-2023 Episodic Headache; including migraine (20 sources) Migraine; Translations: [Migraine, unspecified, without mention of intractable migraine without mention of status migrainosus] Onset: 4 03-20-2024 Chronic Immunizations and screening for infectious disease (20 sources) Patient encounter status; Translations: [Encounter for screening for human papillomavirus (HPV)] Onset: 1 Resolved: 5 02-12-2022 Episodic Inflammatory diseases of female pelvic organs (1 source) Inflammatory disease of cervix uteri; Translations: [INFLAMMATORY DISEASE CERVIX UTERI] Onset: 3 Episodic Menstrual disorders (20 sources) Menorrhagia; Translations: [Excessive and frequent menstruation with regular cycle] Onset: 1 02-12-2022 Chronic Mood disorders (5 sources) Bipolar disorder, most recent episode depression; Translations: [Bipolar I disorder, most recent episode (or current) depressed, unspecified] Chronic Mycoses (2 sources) Mycosis; Translations: [Candidiasis, unspecified] 05-03-2025 Episodic Nonmalignant breast conditions (2 sources) Breast tenderness; Translations: [Mastodynia] 05-24-2025 Episodic Nonspecific chest pain (20 sources) Chest wall pain; Translations: [Other chest pain] Onset: 3 09-21-2022 Episodic Osteoarthritis (4 sources) Disorder of joint of foot; Translations: [Primary osteoarthritis, unspecified ankle and foot] 11-30-2024 Chronic Other aftercare (2 sources) Abscess; Translations: [Encounter for follow-up examination after completed treatment for conditions other than malignant neoplasm] 03-23-2025 Episodic Other aftercare (1 source) Encounter for change or removal of surgical wound dressing; Translations: [Encounter for change or removal of surgical wound dressing] Onset: 5 Episodic Other connective tissue disease (20 sources) Pain in both feet; Translations: [Pain in right foot] Onset: 4 Episodic Other connective tissue disease (20 sources) Flexor tenosynovitis of finger; Translations: [Synovitis and tenosynovitis, unspecified] 11-30-2022 Episodic Other female genital disorders (1 source) Abnormal uterine and vaginal bleeding, unspecified; Translations: [ABNORMAL UTERINE VAGINAL BLEED UNS] Onset: 3 Chronic Other gastrointestinal disorders (20 sources) Irritable bowel syndrome; Translations: [Irritable bowel syndrome without diarrhea] Onset: 1 02-12-2022 Chronic Other lower respiratory disease (5 sources) Dyspnea on exertion; Translations: [Shortness of breath] Episodic Other nervous system disorders (20 sources) [...] Chronic Other nervous system disorders (20 sources) Acute postoperative pain; Translations: [Other acute postprocedural pain] Onset: 1 02-12-2022 Episodic Other nervous system disorders (20 sources) Postoperative pain ; Translations: [Other acute postprocedural pain] 05-26-2022 Episodic Other nervous system disorders (20 sources) H/O: Disorder; Translations: [Personal history of other diseases of the nervous system and sense organs] 06-29-2022 Episodic Other non-traumatic joint disorders (20 sources) Pain in wrist; Translations: [Pain in left wrist] 06-29-2022 Episodic Other nutritional; endocrine; and metabolic disorders (20 sources) Body mass index 30+ - obesity; Translations: [Body mass index (BMI) 39.0-39.9, adult] Onset: 1 02-12-2022 Chronic Other nutritional; endocrine; and metabolic disorders (5 sources) Obesity; Translations: [Obesity, unspecified] Chronic Other nutritional; endocrine; and metabolic disorders (20 sources) Severe obesity; Translations: [Morbid (severe) obesity due to excess calories] Onset: 4 03-20-2024 Chronic Other nutritional; endocrine; and metabolic disorders (1 source) Body mass index (BMI) 39.0-39.9, adult; Translations: [BMI 39.0-39.9,adult] Onset: 2 Chronic Other nutritional; endocrine; and metabolic disorders (2 sources) Body mass index (BMI) 33.0-33.9, adult; Translations: [Body mass index (BMI) 33.0-33.9, adult] Onset: 5 Chronic Other skin disorders (20 sources) Keratosis; Translations: [Epidermal thickening, unspecified] Onset: 2 Episodic Other skin disorders (20 sources) Abnormality of nail of toe; Translations: [Other nail disorders] Onset: 2 Episodic Other skin disorders (17 sources) Sebaceous cyst of skin; Translations: [Sebaceous cyst] 01-04-2023 Episodic Other skin disorders (2 sources) Ingrowing toenail; Translations: [Ingrowing nail] 02-03-2024 Episodic Other skin disorders (3 sources) Hidradenitis suppurativa; Translations: [Hidradenitis suppurativa] 03-20-2025 Episodic Otitis media and related conditions (20 sources) Acute right otitis media; Translations: [Otitis media, unspecified, right ear] 02-20-2022 Episodic Ovarian cyst (10 sources) Cyst of ovary; Translations: [Unspecified ovarian cyst, unspecified side] 10-23-2023 Episodic Peritonitis and intestinal abscess (4 sources) Abdominal abscess 07-09-2023 Episodic Residual codes; unclassified (20 sources) Obstructive [...] STATES] Onset: 3 Episodic Residual codes; unclassified (6 sources) Postoperative state; Translations: [Other specified postprocedural states] 05-07-2024 Episodic Residual codes; unclassified (5 sources) Dependent edema; Translations: [Edema, unspecified] 10-03-2024 Episodic Skin and subcutaneous tissue infections (20 sources) Infected face; Translations: [Local infection of the skin and subcutaneous tissue, unspecified] Onset: 02-20-2022 Episodic Sprains and strains (20 sources) Low back strain; Translations: [Strain of muscle, fascia and tendon of lower back, initial encounter] 03-08-2022 Episodic Substance-related disorders (20 sources) Nicotine dependence; Translations: [Nicotine dependence, cigarettes, uncomplicated] Onset: 02-12-2022 Chronic Comment on above: 11-25; Superficial injury; contusion (20 sources) Contusion of thigh; Translations: [Contusion of unspecified thigh, initial encounter] 05-23-2023 Episodic Urinary tract infections (10 sources) Urinary tract infectious disease; Translations: [Urinary [...] 02-03-2021 02-12-2022 Episodic Deficiency and other anemia (9 sources) Anemia; Translations: [Anemia, unspecified] Onset: 12-30-2023 03-23-2024 Episodic Diabetes mellitus without complication (20 sources) Impaired fasting glycemia; Translations: [Impaired fasting glucose] Onset: 11-23-2020 02-12-2022 Episodic Other aftercare (20 sources) Long-term current use of oral hypoglycemic medication; Translations: [long term acute care registered nurse (current) use of oral hypoglycemic drugs] Onset: 11-01-2021 02-12-2022 Episodic Other aftercare (5 sources) Treatment changed; Translations: [Other long goods drier (current) drug therapy] Onset: 03-23-2024 03-23-2024 Episodic Other aftercare (2 sources) Surgical follow-up; Translations: [Encounter for follow-up examination after completed treatment for conditions other than malignant neoplasm] 07-30-2024 Episodic Other aftercare (2 sources) Other [facility]p (current) drug therapy; Translations: [Other [facility]p (current) drug therapy] Onset: 03-23-2024 Episodic Other [...] Onset: 04-30-2022 Episodic Other connective tissue disease (1 source) Pain in right foot; Translations: [Pain in right foot] Onset: 11-22-2024 Episodic Other hematologic conditions (20 sources) ESR raised; Translations: [Elevated erythrocyte sedimentation rate] Onset: 11-30-2020 02-12-2022 Episodic Other lower respiratory disease (4 sources) Shortness of breath; Translations: [Shortness of breath] Onset: 03-01-2023 Episodic Other lower respiratory disease (3 sources) Dyspnea; Translations: [Shortness of breath] Onset: 12-30-2023 12-30-2023 Episodic Other non-traumatic joint disorders (20 sources) Chronic ankle pain; Translations: [Pain in left ankle and joints of left foot] Onset: 07-09-2022 Episodic Other screening for suspected conditions (not mental disorders or infectious disease) (16 sources) Electrocardiogram abnormal; Translations: [Nonspecific abnormal electrocardiogram [ECG] [EKG]] Onset: 12-04-2022 Episodic Other skin disorders (1 source) Scar [...] unspecified; Translations: [Painful scar] Onset: 11-01-2023 Episodic Residual codes; unclassified (1 source) Localized edema; Translations: [Localized edema] Onset: 10-03-2024 Episodic Thyroid disorders (20 sources) Disorder of thyroid gland; Translations: [Disorder of thyroid, unspecified] Onset: 11-01-2021 02-12-2022 Episodic Unclassified (9 sources) Abdominal abscess; Translations: [Abdominal abscess] 07-01-2023 Unclassified (2 sources) Onset: 07-06-2024 07-06-2024 Results Test Name Value Interpretation Reference Range Facility A1C with Estimated Average G donna 05-06-2025 Glucose [Mass/Vol] 137 mg/dL Normal [facility] Comment on above: Order Comment: DR JOSE JOSEPH Result Comment: PERF ORMED BY: [facility] [address] [place] [address] PATHOLOGIST OLIVE BRINE TESTER ARIE AZEVEDO M.D. Performed By: #### A 1C [facility] ####[facility] [place] [address] [facility] HbA1c (Bld) [Mass fraction] 6.4 % High 4.3-5.6 [facility] Comment on above: Order Comment: DR KR ISTINA JAHAIRA Result Comment: Incr eased risk for diabetes: 5.7 - 6.4 diabetes: >6.4 glycemic control for adults with diabetes: <7.0 Performed By: #### A 1C [facility] ####[facility] [id number] [place] [address] [facility] RECURRENT VAGINITIS (HTRX)on 05-06-2025 ATOPOBIUM VAGINAE 0 [facility] Healthcare ATOPOBIUM VAGINAE Not detected [facility] 2,3 (BACTERIAL VAGINOSIS ASSOCIATED BACTERIA 2, 3); MOBILUNCUS SPP 0 [facility] BVAB 2,3 (BACTERIAL VAGINOSIS ASSOCIATED BACTERIA 2, 3); MOBILUNCUS SPP Not detected [facility] Healthcare SERENITY ALBICANS, PARAPSILOSIS, TROPICALIS 0 [facility] SERENITY ALBICANS, PARAPSILOSIS, TROPICALIS Not detected [facility] SERENITY GLABRATA 26.172 Abnormal [facility] SERENITY GLABRATA Detected Abnormal [facility] SERENITY KRUSEI 0 [facility] SERENITY KRUSEI Not detected [facility] CHLAMYDIA TRACHOMATIS 0 [facility] CHLAMYDIA TRACHOMATIS Not detected N [facility] ERMB, C; MEFA 14.817 Abnormal [facility] ERMB, C; MEFA Detected Abnormal [facility] GARDNERELLA VAGINALIS 26.857 Abnormal [facility] GARDNERELLA VAGINALIS Detected Abnormal [facility] Interpretation and review of laboratory results Abnormal [facility] MEGASPHAERA (TYPES 1, 2) 0 [facility] MEGASPHAERA (TYPES 1, 2) Not detected [facility] MYCOPLASMA GENITALIUM 0 [facility] MYCOPLASMA GENITALIUM Not detected N S [facility] NEISSERIA GONORRHOEAE 0 [facility] NEISSERIA GONORRHOEAE Not detected N [facility] TET B, TET M 15.141 Abnormal [facility] TET B, TET M Detected Abnormal [facility] TRICHOMONAS VAGINALIS 17.644 Abnormal [facility] TRICHOMONAS VAGINALIS Detected Abnormal [facility] Urinalysis macro (dipstick) panel (U)on 05-03-2025 Bilirubin, UA Negative Negative - 4(70) +++ mg/dL [facility] Blood, UA Negative Negative - 50 Slade/mcL [facility] Clarity, UA Clear [facility] Color, UA Yellow [facility] Glucose, UA Negative Negative - 2000(110) ++++ mg/dL [facility] Interpretation and review of laboratory results Normal [facility] Ketones, UA Negative Negative - 160(16) ++++ mg/dL [facility] Leukocytes, UA Negative Negative - 500+++ Sadie/mcL [facility] Nitrite, UA Negative Negative - Positive [facility] pH, UA 7 5 - 9 [facility] Protein, UA Negative Negative - 2000(20) ++++ mg/dL [facility] Spec Grav, UA 1.015 1 - 1.03 [facility] Urobilinogen, UA 0.2 0.2 - 12 mg/dL [facility] Alanine aminotransferase [En zymatic activity/volume] in Serum or PlasmaOrdered By: Miquel Andrews on 02-10-2025 ALT [Catalytic activity/Vol] Alanine aminotransferase [Enzymatic activity/volume] in Serum or Plasma 7-52 [facility] Albumin [Mass/volume] in Ser um or Plasma by Bromocresol green (BCG) dye binding methoOrdered By: Miquel Andrews on 02-10-2025 Albumin BCG dye [Mass/Vol] Albumin [Mass/volume] in Serum or Plasma by Bromocresol green (BCG) dye binding metho 3.5-5.7 [facility] Alkaline phosphatase [Enzyma tic activity/volume] in Serum or PlasmaOrdered By: Miquel Andrews on 02-10-2025 ALP [Catalytic activity/Vol] Alkaline phosphatase [Enzymatic activity/volume] in Serum or Plasma 34-104 [facility] Appearance of UrineOrdered B y: Miquel Andrews on 02-10-2025 Appearance (U) Urine appearance Clear [facility] Aspartate aminotransferase [ Enzymatic activity/volume] in Serum or PlasmaOrdered By: Miquel Andrews on 02-10-2025 AST [Catalytic activity/Vol] Aspartate aminotransferase [Enzymatic activity/volume] in Serum or Plasma Low 13-39 [facility] Bacteria [Presence] in Urine by AutomatedOrdered By: Miquel Andrews on 02-10-2025 Bacteria Auto Ql (U) Bacteria [Presence] in Urine by Automated None Seen [facility] Basophils Auto (Bld) [#/Vol] Ordered By: Miquel Andrews on 02-10-2025 Basophils (Bld) [#/Vol] Automated basophil count 0.0-0.2 [facility] Basophils/100 WBC Auto (Bld) Ordered By: Miquel Andrews on 02-10-2025 Basophils/100 WBC (Bld) Automated basophil % . [facility] Bilirubin Test strip Ql (U)O rdered By: Miquel Andrews on 02-10-2025 Bilirubin Ql (U) Bilirubin.total [Pre sence] in Urine by Test strip Negative [facility] Bilirubin.total [Mass/volume ] in Serum or PlasmaOrdered By: Miquel Andrews on 02-10-2025 Bilirubin [Mass/Vol] Bilirubin.total [Mass/volume] in Serum or Plasma 0.3-1.[address] [facility] [address] abdomen pelvis wo conon 0 02-10-2025 CT abdomen pelvis wo con [facility] [place] [place] [address] CT Scan Report Signed Patient: Gary Vigil MR#: [id number] : 1985 Acct:[id number] Age/Sex: 39 / F ADM Date: 02/10/25 Loc: ER Room: Type: PRE ER Attending Dr: Copies to: Miquel Andrews PA-C Ordering Provider: Miquel Andrews PA-C Date of Service: 02/10/25 CT/CT abdomen pelvis wo con: right side pain CT ABDOMEN AND PELVIS WITHOUT INTRAVENOUS CONTRAST: CLINICAL HISTORY: Right-sided abdominal pain COMPARISON: 10/23/2023 TECHNIQUE: Spiral images were obtained through the abdomen and pelvis without intravenous contrast. This CT exam was performed using one or more following dose reduction techniques: Automated exposure control, adjustment of the mA and/or kV according to patient size, or use of iterative reconstruction technique. FINDINGS: Lung Bases: [Minor atelectasis.] Organs:Gallbladder absent. Otherwise liver, spleen, adrenal glands, kidneys, pancreas unremarkable.[ GI: Postsurgical changes left upper quadrant small bowel loops. No evidence of bowel obstruction. Mild colonic diverticulosis. No CT findings acute appendicitis.[ Pelvis:[Bladder is mostly collapsed. Uterus absent. No adnexal mass.] Peritoneum/Retroperitoneum:M ild to moderate aortic vascular disease. Aorta is not aneurysmal. No facet up. No free air or free fluid.[ Abd wall/Bones:Postsurgical changes ventral abdominal wall. No suspicious osseous lesion.[Degenerative changes involving the facet joints. CT/CT abdomen pelvis wo con IMPRESSION: Negative acute inflammatory process or bowel obstruction Impression dictated by: Jan Maddox M.D.02/10/2025 3:41 PM Dictation Location: [place] [address] Transcribed By: DESHAWN 02/10/25 1541 Dictated By: Jan Maddox MD 02/10/25 1538 Signed By: 02/10/25 1541 Normal [facility] Calcium [Mass/volume] in Ser um or PlasmaOrdered By: Miquel Andrews on 02-10-2025 Calcium [Mass/Vol] Calcium [Mass/volume ] in Serum or Plasma 8.6-10.3 [facility] Carbon dioxide, total [Moles /volume] in Serum or PlasmaOrdered By: Miquel Andrews on 02-10-2025 CO2 [Moles/Vol] Carbon dioxide, tota l [Moles/volume] in Serum or Plasma 21.0-31.0 [facility] Chloride [Moles/volume] in S dave or PlasmaOrdered By: Miquel Andrews on 02-10-2025 Chloride [Moles/Vol] Chloride [Moles/vol ume] in Serum or Plasma 98-107 [facility] Color Auto (U)Ordered By: Tarik Andrews on 02-10-2025 Color (U) Color of Urine by Auto [facility] Blood Count Auto Di ffon 02-10-2025 Basophils (Bld) [#/Vol] 0.1 10*3/uL Normal 0.0-0.2 [facility] Comment on above: Result Comment: PERF ORMED BY: [place] [address] PATHOLOGIST OLIVE BRINE TESTER RICARDO CHAU M.D. Performed By: #### C MP, CBC #### [facility] [address] [place] [address] [place] Basophils/100 WBC (Bld) 1.3 % Normal . [facility] Comment on above: Performed By: #### C MP, CBC #### [facility] [address] [place] [address] [place] Eosinophils (Bld) [#/Vol] 0.1 10*3/uL Normal 0.0-0.45 [facility] Comment on above: Performed By: #### C MP, CBC #### [address] Eosinophils/100 WBC (Bld) 0.9 % Normal . [facility] Comment on above: Performed By: #### C MP, CBC #### [address] Erythrocyte distribution width (RBC) [Ratio] 15.2 % Normal 11.9-15.3 [facility] Comment on above: Performed By: #### C MP, CBC #### [address] Hematocrit (Bld) [Volume fraction] 38.8 % Normal 34.0-46.4 [facility] Comment on above: Performed By: #### C MP, CBC #### [address] Hemoglobin (Bld) [Mass/Vol] 13.2 g/dL Normal 11.8-15.4 [facility] Comment on above: Performed By: #### C MP, CBC #### [address] Lymphocytes (Bld) [#/Vol] 4.0 10*3/uL Normal 1.00-4.8 [facility] Comment on above: Performed By: #### C MP, CBC #### [place] [address] [place] Lymphocytes/100 WBC (Bld) 41.5 % Normal . [facility] Comment on above: Performed By: #### C MP, CBC #### [place] [address] [place] MCH (RBC) [Entitic mass] 30.5 pg Normal 24.7-34.3 [facility] Comment on above: Performed By: #### C MP, CBC #### [address] MCV (RBC) [Entitic vol] 89.7 fL Normal 80-100 [facility] Comment on above: Performed By: #### C MP, CBC #### [facility] [address] Mean Corpuscular HGB Conc 34.0 g/dL Normal 32.0-35.0 [facility] Comment on above: Performed By: #### C MP, CBC #### [place] [address] [place] Monocytes (Bld) [#/Vol] 0.5 10*3/uL Normal 0.0-0.8 [facility] Comment on above: Performed By: #### C MP, CBC #### [place] [address] [place] Monocytes/100 WBC (Bld) 19.83 % Normal 0.00-20.00 [facility] Comment on above: Performed By: #### C MP, CBC #### [place] [address] [place] Monocytes/100 WBC (Bld) 5.2 % Normal . [facility] Comment on above: Performed By: #### C MP, CBC #### [place] [address] [place] Neutrophils (Bld) [#/Vol] 4.9 10*3/uL Normal 1.8-7.7 [facility] Comment on above: Performed By: #### C MP, CBC #### [place] [address] [place] Neutrophils/100 WBC (Bld) 51.1 % Normal . [facility] Comment on above: Performed By: #### C MP, CBC #### [place] [address] [place] NRBC% 0.1 /100{WBC} Normal 0-0.5 [facility] Comment on above: Performed By: #### C MP, CBC #### [address] Platelet mean volume (Bld) [Entitic vol] 8.3 fL Normal 6.3-10.7 [facility] Comment on above: Performed By: #### C MP, CBC #### [address] Platelets (Bld) [#/Vol] 324 10*3/uL Normal 150-450 [facility] Comment on above: Performed By: #### C MP, CBC #### [address] RBC (Bld) [#/Vol] 4.32 10*6/uL Normal 3.60-5.00 [facility] Comment on above: Performed By: #### C MP, CBC #### [address] WBC (Bld) [#/Vol] 9.7 10*3/uL Normal 3.8-11.6 [facility] Comment on above: Performed By: #### C MP, CBC #### [address] Comprehensive Metabolic Pane benjamin 02-10-2025 Albumin [Mass/Vol] 3.9 g/dL Normal 3.5-5.7 [facility] Comment on above: Performed By: #### C MP, CBC #### [address] Albumin/Globulin [Mass ratio] 1.1 {ratio} Normal [facility] Comment on above: Performed By: #### C MP, CBC #### [address] ALP [Catalytic activity/Vol] 71 U/L Normal 34-104 [facility] Comment on above: Performed By: #### C MP, CBC #### [address] ALT [Catalytic activity/Vol] 9 U/L Normal 7-52 [facility] Comment on above: Performed By: #### C MP, CBC #### [address] Anion gap [Moles/Vol] 10.2 mmol/L Normal 6.0-15.[address] [facility] Comment on above: Performed By: #### C MP, CBC #### [address] AST [Catalytic activity/Vol] 10 U/L Low 13-39 [facility] Comment on above: Performed By: #### C MP, CBC #### [address] Bilirubin [Mass/Vol] 0.4 mg/dL Normal 0.3-1.0 [facility] Comment on above: Performed By: #### C MP, CBC #### [address] Calcium [Mass/Vol] 8.7 mg/dL Normal 8.6-10.3 [facility] Comment on above: Performed By: #### C MP, CBC #### [address] Chloride [Moles/Vol] 107 mmol/L Normal 98-107 [facility] Comment on above: Performed By: #### C MP, CBC #### [address] CO2 [Moles/Vol] 25.1 mmol/L Normal 21.0-31.0 [facility] Comment on above: Performed By: #### C MP, CBC #### [address] Creatinine [Mass/Vol] 0.60 mg/dL Normal 0.60-1.20 [facility] Comment on above: Performed By: #### C MP, CBC #### [address] Creatinine Clr Calc Pharmacy 139.08 Normal [facility] Comment on above: Result Comment: PERF ORMED BY: [place] [address] PATHOLOGIST OLIVE BRINE TESTER RICARDO CHAU M.D. Performed By: #### C MP, CBC #### [place] [address] [place] GFR/1.73 sq M.predicted MDRD (S/P/Bld) [Vol rate/Area] mL/min/{1.73_m2} Normal [facility] Comment on above: Performed By: #### C MP, CBC #### [facility] [address] Globulin (S) [Mass/Vol] 3.4 g/dL Normal [facility] Comment on above: Performed By: #### C MP, CBC #### [address] Glucose [Mass/Vol] 91 mg/dL Normal 70-100 [facility] Comment on above: Result Comment: [facility] Glucose Reference Range is dependent on time and content of last meal. Glucose of more than 200 mg/dL in a nonstressed, ambulatory subject supports the diagnosis of Diabetes Mellitus. ADA recommended reference range Performed By: #### C MP, CBC #### [address] Potassium [Moles/Vol] 3.3 mmol/L Low 3.5-5.1 [facility] Comment on above: Performed By: #### C MP, CBC #### [address] Protein [Mass/Vol] 7.3 g/dL Normal 6.4-8.9 [facility] Comment on above: Performed By: #### C MP, CBC #### [place] [id number] [place] Sodium [Moles/Vol] 139 mmol/L Normal 136-145 [facility] Comment on above: Performed By: #### C MP, CBC #### [place] [address] [place] Urea nitrogen [Mass/Vol] 6 mg/dL Low 7-25 [facility] Comment on above: Performed By: #### C MP, CBC #### [place] [address] [place] Creatinine [Mass/volume] in Serum or PlasmaOrdered By: Miquel Andrews on 02-10-2025 Creatinine [Mass/Vol] Creatinine [Mass/v olume] in Serum or Plasma 0.60-1.20 [facility] Dipstick and Microscopicon 0 02-10-2025 Appearance (U) Clear Normal Clear [facility] Comment on above: Order Comment: Name Collection Type:: Voided Performed By: #### A DDONUAPLUS ####[address] [address] [facility] Bacteria,Urine Rare Normal None Seen [facility] Comment on above: Order Comment: Name Collection Type:: Voided Performed By: #### A DDONUAPLUS ####[address] [address] [facility] Bilirubin,Urine Negative Normal Negative [facility] Comment on above: Order Comment: Name Collection Type:: Voided Performed By: #### A DDONUAPLUS ####[address] [address] [facility] Color (U) Yellow Normal Yellow [facility] Comment on above: Order Comment: Name Collection Type:: Voided Performed By: #### A DDONUAPLUS ####[address] [address] [facility] Glucose Ql (U) >= High Normal [facility] Comment on above: Order Comment: Name Collection Type:: Voided Performed By: #### A DDONUAPLUS ####[address] [address] [facility] Hyaline Casts,Urine None Normal 0-8 [facility] Comment on above: Order Comment: Name Collection Type:: Voided Performed By: #### A DDONUAPLUS ####[address] [address] [facility] Ketones Ql (U) Negative Normal Negative [facility] Comment on above: Order Comment: Name Collection Type:: Voided Performed By: #### A DDONUAPLUS ####[address] [address] [facility] Leukocyte esterase Test strip Ql (U) Negative Normal Negative [facility] Comment on above: Order Comment: Name Collection Type:: Voided Performed By: #### A DDONUAPLUS ####[address] [address] [facility] Mucus,Urine Rare Normal [facility] Comment on above: Order Comment: Name Collection Type:: Voided Result Comment: PERF ORMED BY: [address] [place] [address] PATHOLOGIST OLIVE BRINE TESTER RICARDO CHAU M.D. Performed By: #### A DDONUAPLUS ####[place] [id number] [facility] Nitrite,Urine Negative Normal Negative [facility] Comment on above: Order Comment: Name Collection Type:: Voided Performed By: #### A DDONUAPLUS ####[place] [id number] [facility] Occult Blood,Urine Trace High Negative [facility] Comment on above: Order Comment: Name Collection Type:: Voided Result Comment: PERF ORMED BY: [address] [place] [address] PATHOLOGIST OLIVE BRINE TESTER RICARDO CHAU M.D. Performed By: #### A DDONUAPLUS ####[address] [address] [facility] pH (U) 6.0 [pH] Normal 5.0-9.0 [facility] Comment on above: Order Comment: Name Collection Type:: Voided Performed By: #### A DDONUAPLUS ####[address] [address] [facility] Protein,Urine Trace High Negative [facility] Comment on above: Order Comment: Name Collection Type:: Voided Performed By: #### A DDONUAPLUS ####[address] [address] [facility] RBC,Urine 5-9 High 0-4 [facility] Comment on above: Order Comment: Name Collection Type:: Voided Performed By: #### A DDONUAPLUS ####[address] [address] [facility] Specificy Silver,Urine 1.044 High 1.001-1.03 0 [facility] Comment on above: Order Comment: Name Collection Type:: Voided Performed By: #### A DDONUAPLUS ####[facility] [id number] [address] Squamous Epithelial Cell,Urine 5-9 High 0-2 [facility] Comment on above: Order Comment: Name Collection Type:: Voided Performed By: #### A DDONUAPLUS ####[facility] [address] [address] Urobilinogen,Urine Normal Normal Normal [facility] Comment on above: Order Comment: Name Collection Type:: Voided Performed By: #### A DDONUAPLUS ####[place] [address] WBC,Urine 3-4 Normal 0-4 [facility] Comment on above: Order Comment: Name Collection Type:: Voided Performed By: #### A DDONUAPLUS ####[address] Eosinophils Auto (Bld) [#/Vo l]Ordered By: Miquel Andrews on 02-10-2025 Eosinophils (Bld) [#/Vol] Automated eosinophil count 0.0-0.45 [facility] Eosinophils/100 WBC Auto (Bl d)Ordered By: Miquel Andrews on 02-10-2025 Eosinophils/100 WBC (Bld) Automated eosinophil % . [facility] Epithelial cells.squamous [# /area] in Urine sediment by Automated countOrdered By: Miquel Andrews on 02-10-2025 Epithelial cells.squamous Auto (Urine sed) [#/Area] Epithelial cells.squamous [#/area] in Urine sediment by Automated count High 0-2 [facility] Erythrocyte distribution wid th Auto (RBC) [Ratio]Ordered By: Miquel Andrews on 02-10-2025 Erythrocyte distribution width (RBC) [Ratio] Erythrocyte distribution width [Ratio] by Automated count 11.9-15.3 [facility] Erythrocytes [#/area] in Uri ne sediment by Automated countOrdered By: Miquel Andrews on 02-10-2025 RBC Auto (Urine sed) [#/Area] Erythrocytes [#/area] in Urine sediment by Automated count High 0-4 [facility] Globulin Calc (S) [Mass/Vol] Ordered By: Miquel Andrews on 02-10-2025 Globulin (S) [Mass/Vol] Serum globulin measurement by calculation (mass/volume) [facility] Glucose [Mass/volume] in Ser um or PlasmaOrdered By: Miquel Andrews on 02-10-2025 Glucose [Mass/Vol] Glucose [Mass/volume ] in Serum or Plasma 70-100 [facility] Comment on above: ADA recommended refe rence rangeRandom Glucose Reference Range is dependent on time and content of last meal. Glucose of more than 200 mg/dL in a nonstressed, ambulatory subject supports the diagnosis of Diabetes Mellitus. Glucose [Mass/volume] in Uri ne by Test stripOrdered By: Miquel Andrews on 02-10-2025 Glucose Test strip (U) [Mass/Vol] Glucose [Mass/volume] in Urine by Test strip High Normal [facility] Hematocrit Auto (Bld) [Volum e fraction]Ordered By: Miquel Andrews on 02-10-2025 Hematocrit (Bld) [Volume fraction] Hematocrit [Volume Fraction] of Blood by Automated count 34.0-46.4 [facility] Hemoglobin Test strip Ql (U) Ordered By: Miquel Andrews on 02-10-2025 Hemoglobin Ql (U) Hemoglobin [Presence ] in Urine by Test strip High Negative [facility] Hemoglobin [Mass/volume] in BloodOrdered By: Miquel Andrews 02-10-2025 Hemoglobin (Bld) [Mass/Vol] Hemoglobin [Mass/volume] in Blood 11.8-15.4 [facility] Hyaline casts [#/area] in Ur ine sediment by Automated countOrdered By: Miquel Andrews 02-10-2025 Hyaline casts Auto (Urine sed) [#/Area] Hyaline casts [#/area] in Urine sediment by Automated count 0-8 [facility] Ketones Test strip Ql (U)Ord ered By: Miquel Andrews on 02-10-2025 Ketones Ql (U) Ketones [Presence] i n Urine by Test strip Negative [facility] Leukocyte esterase [Presence ] in Urine by Test stripOrdered By: Miquel Andrews on 02-10-2025 Leukocyte esterase Test strip Ql (U) Leukocyte esterase [Presence] in Urine by Test strip Negative [facility] Leukocytes [#/area] in Urine sediment by Automated countOrdered By: Miquel Andrews on 02-10-2025 WBC Auto (Urine sed) [#/Area] Leukocytes [#/area] in Urine sediment by Automated count 0-4 [facility] Leukocytes [#/volume] correc diego for nucleated erythrocytes in Blood by Automated counOrdered By: Miquel Andrews on 02-10-2025 WBC corrected for nucl RBC Auto (Bld) [#/Vol] Leukocytes [#/volume] corrected for nucleated erythrocytes in Blood by Automated coun 3.8-11.6 [facility] Lymphocytes Auto (Bld) [#/Vo l]Ordered By: Miquel Andrews on 02-10-2025 Lymphocytes (Bld) [#/Vol] Lymphocytes [#/volume] in Blood by Automated count 1.00-4.8 [facility] Lymphocytes/100 WBC Auto (Bl d)Ordered By: Miquel Andrews on 02-10-2025 Lymphocytes/100 WBC (Bld) Lymphocytes/100 leukocytes in Blood by Automated count . [facility] MCH Auto (RBC) [Entitic mass ]Ordered By: Miquel Andrews on 02-10-2025 MCH (RBC) [Entitic mass] MCH [Entitic mass] by Automated count 24.7-34.3 [facility] MCHC Auto (RBC) [Mass/Vol]Or dered By: Miquel Andrews on 02-10-2025 MCHC (RBC) [Mass/Vol] MCHC [Mass/volume] by Automated count 32.0-35.0 [facility] MCV Auto (RBC) [Entitic vol] Ordered By: Miquel Andrews on 02-10-2025 MCV (RBC) [Entitic vol] MCV [Entitic volume] by Automated count 80-100 [facility] Monocyte distribution width [Entitic volume] in Blood by AutomatedOrdered By: Miquel Andrews on 02-10-2025 Monocyte distribution width Auto (Bld) [Entitic vol] Monocyte distribution width [Entitic volume] in Blood by Automated 0.00-20.00 [facility] Monocytes Auto (Bld) [#/Vol] Ordered By: Miquel Andrews on 02-10-2025 Monocytes (Bld) [#/Vol] Automated blood monocyte count 0.0-0.8 [facility] Monocytes/100 WBC Auto (Bld) Ordered By: Miquel Andrews on 02-10-2025 Monocytes/100 WBC (Bld) Automated monocyte % . [facility] Mucus [Presence] in Urine by AutomatedOrdered By: Miquel Andrews on 02-10-2025 Mucus Auto Ql (U) Mucus [Presence] in Urine by Automated [facility] Neutrophils Auto (Bld) [#/Vo l]Ordered By: Miquel Andrews on 02-10-2025 Neutrophils (Bld) [#/Vol] Neutrophils [#/volume] in Blood by Automated count 1.8-7.7 [facility] Neutrophils/100 WBC Auto (Bl d)Ordered By: Miquel Andrews on 02-10-2025 Neutrophils/100 WBC (Bld) Automated neutrophil % . [facility] Nitrite Test strip Ql (U)Ord ered By: Miquel Andrews on 02-10-2025 Nitrite Ql (U) Nitrite [Presence] i n Urine by Test strip Negative [facility] No Panel InformationOrdered By: Miquel Andrews on 02-10-2025 Estimated GFR (CKD-EPI) > 60.0 mL/Min [facility] Creatinine Clearance (Chem 139.08 [facility] Nucleated erythrocytes [Pres ence] in Blood by Automated countOrdered By: Miquel Andrews on 02-10-2025 Nucleated RBC Auto Ql (Bld) Nucleated erythrocytes [Presence] in Blood by Automated count 0-0.5 [facility] Platelet mean volume Auto (B ld) [Entitic vol]Ordered By: Miquel Andrews on 02-10-2025 Platelet mean volume (Bld) [Entitic vol] Platelet mean volume [Entitic volume] in Blood by Automated count 6.3-10.7 [facility] Platelets Auto (Bld) [#/Vol] Ordered By: Miquel Andrews on 02-10-2025 Platelets (Bld) [#/Vol] Platelets [#/volume] in Blood by Automated count 150-450 [facility] Potassium [Moles/volume] in Serum or PlasmaOrdered By: Miquel Andrews on 02-10-2025 Potassium [Moles/Vol] Potassium [Moles/v olume] in Serum or Plasma Low 3.5-5.1 [facility] Protein Test strip (U) [Mass /Vol]Ordered By: Miquel Andrews on 02-10-2025 Protein (U) [Mass/Vol] Protein [Mass/volume] in Urine by Test strip High Negative [facility] Protein [Mass/volume] in Ser um or PlasmaOrdered By: Miquel Andrews on 02-10-2025 Protein [Mass/Vol] Protein [Mass/volume ] in Serum or Plasma 6.4-8.9 [facility] RBC Auto (Bld) [#/Vol]Ordere d By: Miquel Andrews on 02-10-2025 RBC (Bld) [#/Vol] Erythrocytes [#/volu me] in Blood by Automated count 3.60-5.00 [facility] Serum or plasma albumin/glob ulin mass ratioOrdered By: Miquel Andrews on 02-10-2025 Albumin/Globulin [Mass ratio] Serum or plasma albumin/globulin mass ratio [facility] Serum or plasma anion gap de terminationOrdered By: Miquel Andrews on 02-10-2025 Anion gap [Moles/Vol] Serum or plasma an ion gap determination 6.0-15.0 [facility] Sodium [Moles/volume] in Ser um or PlasmaOrdered By: Miquel Andrews on 02-10-2025 Sodium [Moles/Vol] Sodium [Moles/volume ] in Serum or Plasma 136-145 [facility] Specific gravity Test strip (U) [Rel density]Ordered By: Miquel Andrews on 02-10-2025 Specific gravity (U) [Rel density] Specific gravity of Urine by Test strip High 1.001-1.03 0 [facility] Urea nitrogen [Mass/volume] in Serum or PlasmaOrdered By: Miquel Andrews on 02-10-2025 Urea nitrogen [Mass/Vol] Urea nitrogen [Mass/volume] in Serum or Plasma Low 7-25 [facility] Urobilinogen Test strip (U) [Mass/Vol]Ordered By: Miquel Andrews on 02-10-2025 Urobilinogen (U) [Mass/Vol] Urobilinogen [Mass/volume] in Urine by Test strip Normal [facility] WBC Auto (Bld) [#/Vol]Ordere d By: Miquel Andrews on 02-10-2025 WBC (Bld) [#/Vol] Leukocytes [#/volume ] in Blood by Automated count 3.8-11.6 [facility] pH Test strip (U)Ordered By: Miquel Andrews on 02-10-2025 pH (U) pH of Urine by Test strip 5.0-9.0 [facility] CNOVon 01-04-2025 CNOV Office Visit (LOORRM ) GARY VIGIL ([id number]) 1985 F Date Time Provider Department 01/04/25 9:30 AM EULALIA FUENTES During your visit today, we recorded the following information about you: Eulalia Fuentes DPM 01/04/2025 10:38 AM Signed Patient Visit for Gary Vigil 1985 39 year old female Date of Service: January 04, 2025 SUBJECTIVE: Chief Complaint: Patient presents with: Left Foot - Established Patient, Follow Up, Pain Left Ankle - New, Pain, Established Patient /Pain Scales: Verbal (Numeric Rating or Visual Analog Scale) Pain Level: 10 Pain Location: (left foot and ankle) Description: Aching, Burning, Cramping, Numbness, Pressure, Sharp, Shooting, Sore, Stabbing, Tenderness, Tightness Duration Units: Years Frequency: Continuous Intervention/Comfort measure: Relaxation, Massage Comments: She is here for a follow up of left foot and ankle pain. No new or recent injury. Pain increases with activity. Additional HPI: Painful hyperkeratosis plantar lateral LEFT FOOT Medial great toe bilateral Dystrophic toenails especially third toe LEFT FOOT and second toe RIGHT FOOT with pain PCP: No primary care provider on file. No past medical history on file. Current Outpatient Medications Medication Sig semaglutide (OZEMPIC) 1 mg/dose (4 mg/3 mL) pen Inject 1 mg subcutaneously one time a week. empagliflozin (JARDIANCE) 25 mg tablet Take 25 mg by mouth daily with breakfast. mupirocin (BACTROBAN) 2 % ointment Apply 1 application to affected area two times a day. spironolactone (ALDACTONE) 50 mg tablet Take 50 [...] Currently Drug use: Not Currently Tobacco Use: Types: Cigarettes REVIEW OF SYSTEMS: The remainder of the ROS was reviewed with the patient and is negative except as noted. OBJECTIVE: General: Pleasant in no acute distress Lower extremity exam: Vascular exam: Normal vascular exam, palpable pluses with brisk capillary fill Neurological exam: Unchanged No pain out of proportion Dermatological exam: Hyperkeratosis plantar medial LEFT great toe with tenderness to palpation Hyperkeratosis plantar lateral LE (more content not included)... Normal [facility] CNOVon 12-04-2024 CNOV Office Visit (ALEJANDRAORRM ) GARY VIGIL ([id number]) 1985 F Date Time Provider Department 12/04/24 11:00 AM EULALIA FUENTES During your visit today, we recorded the following information about you: Eulalia Fuentes DPM 12/04/2024 12:01 PM Signed Patient Visit for Gary Vigil 1985 39 year old female Date of Service: December 04, 2024 SUBJECTIVE: Chief Complaint: Patient presents with: Left Foot - Established Patient, Follow Up, Pain Right Foot - Established Patient, Follow Up, Pain /Pain Scales: Verbal (Numeric Rating or Visual Analog Scale) Pain Level: 10 Pain Location: Foot-Left Description: Aching, Burning, Contraction, Cramping, Crushing, Numbness, Raw, Sharp, Shooting, Sore, Spasm, Stabbing, Stiffness, Throbbing, Tingling Duration Amount of Time: 24 Duration Units: Months Frequency: Continuous Intervention/Comfort measure: Pillow support Comments: She is here for a follow up of bilateral foot callouses. Surgery performed 05/01/24. Additional HPI: Painful hyperkeratosis plantar lateral LEFT FOOT Medial great toe bilateral Dystrophic toenails She brought in a CD X-ray of feet from [facility] PCP: No primary care provider on file. No past medical history on file. Current Outpatient Medications Medication Sig semaglutide (OZEMPIC) 1 mg/dose (4 mg/3 mL) pen Inject 1 mg subcutaneously one time a week. empagliflozin (JARDIANCE) 25 mg tablet Take 25 mg by mouth daily with breakfast. mupirocin (BACTROBAN) 2 % ointment Apply 1 application to affected area two times a day. spironolactone (ALDACTONE) 50 mg tablet Take 50 [...] Currently Drug use: Not Currently Tobacco Use: Types: Cigarettes REVIEW OF SYSTEMS: The remainder of the ROS was reviewed with the patient and is negative except as noted. OBJECTIVE: General: Pleasant in no acute distress Lower extremity exam: Vascular exam: Normal vascular exam, palpable pluses with brisk capillary fill Neurological exam: Unchanged No pain out of proportion Dermatological exam: Hyperkeratosis plantar medial LEFT great toe with tenderness to palpation Hy (more content not included)... Normal [facility] XR foot RT min 3V*on 024 XR foot RT min 3V* [facility] Main [place] [address] [place] [address] XRay Report Signed Patient: Gary Vigil MR#: [id number] : 1985 Acct:[id number] Age/Sex: 39 / F ADM Date: 11/22/24 Loc: ER Room: Type: [facility] ER Attending Dr: Copies to: Be Laguna APRN Ordering Provider: Be Laguna APRN Date of Service: 11/22/24 XR/XR foot RT min 3V*: Extremity Injury, Lower 3 views right foot plain film COMPARISON:None HISTORY: Right lateral foot pain ACUTE FINDINGS: None DEGENERATIVE CHANGE: Unremarkable SOFT TISSUE FINDINGS: Unremarkable JOINT EFFUSION: None POSTOP CHANGES: None BONE MINERALIZATION: Adequate XR/XR foot RT min 3V* IMPRESSION: No acute findings. Impression dictated by: Michael Montalvo M.D.11/22/2024 1:56 PM Dictation Location[facility] Transcribed By: [facility] 11/22/24 [facility]6 Dictated By: Michael Montalvo DO 11/22/24 1353 Signed By: 11/22/24 [facility] Normal [facility] CNCOon 10-05-2024 CNCO Letter Text Normal [facility] CNOVon 10-05-2024 CNOV Office Visit (LOORRM ) GARY VIGIL ([id number]) 1985 F Date Time Provider Department 10/05/24 1:00 PM EULALIA FUENTESORRMyles During your visit today, we recorded the following information about you: Eulalia Fuentes DPM 10/05/2024 1:40 PM Signed Patient Visit for Gary Vigil 1985 39 year old female Date of Service: October 05, 2024 SUBJECTIVE: Chief Complaint: Patient presents with: Left Foot - Established Patient, Post Op /Pain Scales: Verbal (Numeric Rating or Visual Analog Scale) Pain Level: 8 Pain Location: Foot-Left Description: Aching, Sharp, Sore, Throbbing, Numbness Duration Amount of Time: 5 Duration Units: Months Frequency: Continuous Comments: She is here for a follow up of the left foot. Surgery performed on 05/01/24. Additional HPI: LEFT plantar foot pain Recurrent hyperkeratosis Pain 1st metatarsal phalangeal joint Pain plantar hallux interphalangeal joint Worse with activity Pain with standing PCP: No primary care provider on file. No past medical history on file. Current Outpatient Medications Medication Sig semaglutide (OZEMPIC) 1 mg/dose (4 mg/3 mL) pen Inject 1 mg subcutaneously one time a week. empagliflozin (JARDIANCE) 25 mg tablet Take 25 mg by mouth daily with breakfast. mupirocin (BACTROBAN) 2 % ointment Apply 1 application to affected area two times a day. spironolactone (ALDACTONE) 50 mg tablet Take 50 [...] Currently Drug use: Not Currently Tobacco Use: Types: Cigarettes REVIEW OF SYSTEMS: The remainder of the ROS was reviewed with the patient and is negative except as noted. OBJECTIVE: General: Pleasant in no acute distress Lower extremity exam: Vascular exam: Normal vascular exam, palpable pluses with brisk capillary fill Neurological exam: Unchanged No pain out of proportion Dermatological exam: Hyperkeratosis plantar medial LEFT great toe with tenderness to palpation Hyperkeratosis plantar lateral LEFT forefoot with tenderness to palpation Other Normal exam without rashes or lesions of skin. No evidence of evidence of petechiae, purpura, telangiectasia Musculoskeletal e (more content not included)... Normal [facility] X-ray reportOrdered By: Evaristo Easley on 10-04-2024 Study report [facility] Main [address] [address] XRay Report Signed Patient: Gary Vigil MR#: [id number] : 1985 Acct:[id number] Age/Sex: 39 / F ADM Date: 4 Loc: ER Room: Type: [facility] ER Attending Dr: Copies to: Mk Parker DO~ Ordering Provider: Mk Parker DO Date of Service: 10/03/24 XR/XR chest 1V portable: Extremity Problem, Nontraumatic XR chest 1V portable 10/03/2024 10:54 PM SIGNS AND SYMPTOMS: Bilateral lower extremity swelling with shortness breath PROTOCOL: Frontal radiograph the chest COMPARISON: 01/13/2023 FINDINGS: The trachea is midline. The heart and mediastinal structures are within normal limits. The lung parenchyma is clear. The bony thorax is intact. XR/XR chest 1V portable IMPRESSION: No acute cardiopulmonary pathology. Impression dictated by: Evaristo Easley M.D.10/04/2024 11:15 AM Dictation Location: [place] [address] Transcribed By: [facility] 10/04/241114 Dictated By: Evaristo Easley II, MD 10/04/241113 Signed By: 10/04/241114 [facility] Work Phone: XR chest 1V portableon 10-04 XR chest 1V portable [facility] Main [address] [address] XRay Report Signed Patient: Gary Vigil MR#: [id number] : 1985 Acct:[id number] Age/Sex: 39 / F ADM Date: 10/03/24 Loc: ER Room: Type: [facility] ER Attending Dr: Copies to: Mk Parker DO Ordering Provider: Mk Parker DO Date of Service: 10/03/24 XR/XR chest 1V portable: Extremity Problem, Nontraumatic XR chest 1V portable 10/03/2024 10:54 PM SIGNS AND SYMPTOMS: Bilateral lower extremity swelling with shortness breath PROTOCOL: Frontal radiograph the chest COMPARISON: 01/13/2023 FINDINGS: The trachea is midline. The heart and mediastinal structures are within normal limits. The lung parenchyma is clear. The bony thorax is intact. XR/XR chest 1V portable IMPRESSION: No acute cardiopulmonary pathology. Impression dictated by: Evaristo Easley M.D.10/04/2024 11:15 AM Dictation Location: [facility]- Transcribed By: [facility] 10/04/24 1115 Dictated By: Evaristo Easley II, MD 10/04/24 1114 Signed By: 10/04/24 1115 Normal [facility] Alanine aminotransferase [En zymatic activity/volume] in Serum or PlasmaOrdered By: Mk Parker on 10-03-2024 ALT [Catalytic activity/Vol] Alanine aminotransferase [Enzymatic activity/volume] in Serum or Plasma 7-52 [facility] Albumin [Mass/volume] in Ser um or Plasma by Bromocresol green (BCG) dye binding methoOrdered By: Mk Parker on 10-03-2024 Albumin BCG dye [Mass/Vol] Albumin [Mass/volume] in Serum or Plasma by Bromocresol green (BCG) dye binding metho 3.5-5.7 [facility] Alkaline phosphatase [Enzyma tic activity/volume] in Serum or PlasmaOrdered By: Mk Parker on 10-03-2024 ALP [Catalytic activity/Vol] Alkaline phosphatase [Enzymatic activity/volume] in Serum or Plasma 34-104 [facility] Aspartate aminotransferase [ Enzymatic activity/volume] in Serum or PlasmaOrdered By: Mk Parker on 10-03-2024 AST [Catalytic activity/Vol] Aspartate aminotransferase [Enzymatic activity/volume] in Serum or Plasma Low 13-39 [facility] B-Type Natriuretic Peptideon 10-03-2024 Natriuretic peptide B (Bld) [Mass/Vol] 10.0 pg/mL Normal 5-100 [facility] Comment on above: Result Comment: PERF ORMED BY: [place] [address] PATHOLOGIST OLIVE BRINE TESTER ANGELA NORTON M.D. Performed By: #### H S TROP, CBC, PT, CK, BMP, HEPATIC, BNP #### [address] Basic Metabolic Panelon Anion gap [Moles/Vol] 12.6 mmol/L Normal 6.0-15.0 [facility] Comment on above: Performed By: #### H S TROP, CBC, PT, CK, BMP, HEPATIC, BNP #### [address] Calcium [Mass/Vol] 9.3 mg/dL Normal 8.6-10.3 [facility] Comment on above: Performed By: #### H S TROP, CBC, PT, CK, BMP, HEPATIC, BNP #### [address] Chloride [Moles/Vol] 106 mmol/L Normal 98-107 [facility] Comment on above: Performed By: #### H S TROP, CBC, PT, CK, BMP, HEPATIC, BNP #### [address] CO2 [Moles/Vol] 22.7 mmol/L Normal 21.0-31.0 [facility] Comment on above: Performed By: #### H S TROP, CBC, PT, CK, BMP, HEPATIC, BNP #### [address] Creatinine [Mass/Vol] 0.50 mg/dL Low 0.60-1.20 [facility] Comment on above: Performed By: #### H S TROP, CBC, PT, CK, BMP, HEPATIC, BNP #### [place] [address] [place] Creatinine Clr Calc Pharmacy 180.64 Normal [facility] Comment on above: Result Comment: PERF ORMED BY: [place] [address] PATHOLOGIST OLIVE BRINE TESTER ANGELA NORTON M.D. Performed By: #### H S TROP, CBC, PT, CK, BMP, HEPATIC, BNP #### [place] [address] [place] GFR/1.73 sq M.predicted MDRD (S/P/Bld) [Vol rate/Area] mL/min/{1.73_m2} Normal [facility] Comment on above: Performed By: #### H S TROP, CBC, PT, CK, BMP, HEPATIC, BNP #### [address] Glucose [Mass/Vol] 133 mg/dL High 70-100 [facility] Comment on above: Result Comment: [place] Glucose Reference Range is dependent on time and content of last meal. Glucose of more than 200 mg/dL in a nonstressed, ambulatory subject supports the diagnosis of Diabetes Mellitus. ADA recommended reference range Performed By: #### H S TROP, CBC, PT, CK, BMP, HEPATIC, BNP #### [address] Potassium [Moles/Vol] 3.3 mmol/L Low 3.5-5.1 [facility] Comment on above: Performed By: #### H S TROP, CBC, PT, CK, BMP, HEPATIC, BNP #### [place] [address] [place] Sodium [Moles/Vol] 138 mmol/L Normal 136-145 [facility] Comment on above: Performed By: #### H S TROP, CBC, PT, CK, BMP, HEPATIC, BNP #### [place] [address] [place] Urea nitrogen [Mass/Vol] 12 mg/dL Normal 7-25 [facility] Comment on above: Performed By: #### H S TROP, CBC, PT, CK, BMP, HEPATIC, BNP #### [facility] [address] Basophils Auto (Bld) [#/Vol] Ordered By: Mk Parker on 10-03-2024 Basophils (Bld) [#/Vol] Automated basophil count 0.0-0.2 [facility] Basophils/100 WBC Auto (Bld) Ordered By: Mk Parker on 10-03-2024 Basophils/100 WBC (Bld) Automated basophil % . [facility] Bilirubin.direct [Mass/volum e] in Serum or PlasmaOrdered By: Mk Parker on 10-03-2024 Bilirubin.direct [Mass/Vol] Bilirubin.direct [Mass/volume] in Serum or Plasma Low 0.03-0.18 [facility] Comment on above: If the DBIL is less than 0.1, IBIL is not able to becalculated. Bilirubin.total [Mass/volume ] in Serum or PlasmaOrdered By: Mk Parker on 10-03-2024 Bilirubin [Mass/Vol] Bilirubin.total [Mass/volume] in Serum or Plasma Low 0.3-1.0 [facility] Calcium [Mass/volume] in Ser um or PlasmaOrdered By: Mk Parker on 10-03-2024 Calcium [Mass/Vol] Calcium [Mass/volume ] in Serum or Plasma 8.6-10.3 [facility] Carbon dioxide, total [Moles /volume] in Serum or PlasmaOrdered By: Mk Parker on 10-03-2024 CO2 [Moles/Vol] Carbon dioxide, tota l [Moles/volume] in Serum or Plasma 21.0-31.0 [facility] Chloride [Moles/volume] in S dave or PlasmaOrdered By: Mk Parker on 10-03-2024 Chloride [Moles/Vol] Chloride [Moles/vol ume] in Serum or Plasma 98-107 [facility] Complete Blood Count Auto Di ffon 10-03-2024 Basophils (Bld) [#/Vol] 0.1 10*3/uL Normal 0.0-0.2 [facility] Comment on above: Result Comment: PERF ORMED BY: [place] [address] PATHOLOGIST OLIVE BRINE TESTER ANGELA NORTON M.D. Performed By: #### H S TROP, CBC, PT, CK, BMP, HEPATIC, BNP #### [address] Basophils/100 WBC (Bld) 1.3 % Normal . [facility] Comment on above: Performed By: #### H S TROP, CBC, PT, CK, BMP, HEPATIC, BNP #### [address] Eosinophils (Bld) [#/Vol] 0.2 10*3/uL Normal 0.0-0.45 [facility] Comment on above: Performed By: #### H S TROP, CBC, PT, CK, BMP, HEPATIC, BNP #### [address] Eosinophils/100 WBC (Bld) 1.8 % Normal . [facility] Comment on above: Performed By: #### H S TROP, CBC, PT, CK, BMP, HEPATIC, BNP #### [address] Erythrocyte distribution width (RBC) [Ratio] 13.6 % Normal 11.9-15.3 [facility] Comment on above: Performed By: #### H S TROP, CBC, PT, CK, BMP, HEPATIC, BNP #### [address] Hematocrit (Bld) [Volume fraction] 37.1 % Normal 34.0-46.4 [facility] Comment on above: Performed By: #### H S TROP, CBC, PT, CK, BMP, HEPATIC, BNP #### [address] Hemoglobin (Bld) [Mass/Vol] 12.7 g/dL Normal 11.8-15.4 [facility] Comment on above: Performed By: #### H S TROP, CBC, PT, CK, BMP, HEPATIC, BNP #### [address] Lymphocytes (Bld) [#/Vol] 5.7 10*3/uL High 1.00-4.8 [facility] Comment on above: Performed By: #### H S TROP, CBC, PT, CK, BMP, HEPATIC, BNP #### [address] Lymphocytes/100 WBC (Bld) 47.3 % Normal . [facility] Comment on above: Performed By: #### H S TROP, CBC, PT, CK, BMP, HEPATIC, BNP #### [address] MCH (RBC) [Entitic mass] 30.8 pg Normal 24.7-34.3 [facility] Comment on above: Performed By: #### H S TROP, CBC, PT, CK, BMP, HEPATIC, BNP #### [address] MCV (RBC) [Entitic vol] 89.9 fL Normal 80-100 [facility] Comment on above: Performed By: #### H S TROP, CBC, PT, CK, BMP, HEPATIC, BNP #### [address] Mean Corpuscular HGB Conc 34.2 g/dL Normal 32.0-35.0 [facility] Comment on above: Performed By: #### H S TROP, CBC, PT, CK, BMP, HEPATIC, BNP #### [address] Monocytes (Bld) [#/Vol] 0.5 10*3/uL Normal 0.0-0.8 [facility] Comment on above: Performed By: #### H S TROP, CBC, PT, CK, BMP, HEPATIC, BNP #### [address] Monocytes/100 WBC (Bld) 18.55 % Normal 0.00-20.00 [facility] Comment on above: Performed By: #### H S TROP, CBC, PT, CK, BMP, HEPATIC, BNP #### [address] Monocytes/100 WBC (Bld) 4.5 % Normal . [facility] Comment on above: Performed By: #### H S TROP, CBC, PT, CK, BMP, HEPATIC, BNP #### [address] Neutrophils (Bld) [#/Vol] 5.4 10*3/uL Normal 1.8-7.7 [facility] Comment on above: Performed By: #### H S TROP, CBC, PT, CK, BMP, HEPATIC, BNP #### [address] Neutrophils/100 WBC (Bld) 45.1 % Normal . [facility] Comment on above: Performed By: #### H S TROP, CBC, PT, CK, BMP, HEPATIC, BNP #### [address] NRBC% 0.1 /100{WBC} Normal 0-0.5 [facility] Comment on above: Performed By: #### H S TROP, CBC, PT, CK, BMP, HEPATIC, BNP #### [address] Platelet mean volume (Bld) [Entitic vol] 8.3 fL Normal 6.3-10.7 [facility] Comment on above: Performed By: #### H S TROP, CBC, PT, CK, BMP, HEPATIC, BNP #### [address] Platelets (Bld) [#/Vol] 348 10*3/uL Normal 150-450 [facility] Comment on above: Performed By: #### H S TROP, CBC, PT, CK, BMP, HEPATIC, BNP #### [address] RBC (Bld) [#/Vol] 4.12 10*6/uL Normal 3.60-5.00 [facility] Comment on above: Performed By: #### H S TROP, CBC, PT, CK, BMP, HEPATIC, BNP #### [facility] [address] WBC (Bld) [#/Vol] 12.0 10*3/uL High 3.8-11.6 [facility] Comment on above: Performed By: #### H S TROP, CBC, PT, CK, BMP, HEPATIC, BNP #### [facility] [address] [place] [id number] [place] Creatine Kinaseon 10-03-2024 CK [Catalytic activity/Vol] 79 U/L Normal 30-223 [facility] Comment on above: Performed By: #### H S TROP, CBC, PT, CK, BMP, HEPATIC, BNP ####[facility] [id number] Creatine kinase [Enzymatic a ctivity/volume] in Serum or PlasmaOrdered By: Mk Parker on 10-03-2024 CK [Catalytic activity/Vol] Creatine kinase [Enzymatic activity/volume] in Serum or Plasma 30-223 [facility] Creatinine [Mass/volume] in Serum or PlasmaOrdered By: Mk Parker on 10-03-2024 Creatinine [Mass/Vol] Creatinine [Mass/v olume] in Serum or Plasma Low 0.60-1.20 [facility] ECG 12 lead ECGon 10-03-2024 ECG 12 lead ECG [facility] [place] [address] Electrocardiograph Report Signed Patient: Gary Vigil MR#: [id number] : 1985 Acct:[id number] Age/Sex: 39 / F ADM Date: 10/03/24 Loc: ER Room: Type: [facility] ER Attending Dr: Ordering Provider: Mk Parker DO Date of Service: 10/03/2408/18/2253 ECG/ECG 12 lead ECG: Extremity Problem, Nontraumatic Copies to: Test Reason : Blood Pressure : */* mmHG Vent. Rate : 77 BPM Atrial Rate : 77 BPM P-R Int : 182 ms QRS Dur : 82 ms QT Int : 356 ms P-R-T Axes : 58 54 -21 degrees QTcB Int : 402 ms Normal sinus rhythm T wave abnormality, consider inferior ischemia Abnormal ECG When compared with ECG of 13-Jan-2023 01:03, No significant change was found Confirmed by JOE MEEK MD ([id number]) on 10/05/2024 7:15:08 PM Referred By: Electronically Signed By: JOE MEEK MD Transcribed By: [facility] Signed By Joe Meek MD 1 12/05/23 1915 Normal [facility] Eosinophils Auto (Bld) [#/Vo l]Ordered By: Mk Parker on 10-03-2024 Eosinophils (Bld) [#/Vol] Automated eosinophil count 0.0-0.45 [facility] Eosinophils/100 WBC Auto (Bl d)Ordered By: Mk Parker on 10-03-2024 Eosinophils/100 WBC (Bld) Automated eosinophil % . [facility] Erythrocyte distribution wid th Auto (RBC) [Ratio]Ordered By: Mk Parker on 10-03-2024 Erythrocyte distribution width (RBC) [Ratio] Erythrocyte distribution width [Ratio] by Automated count 11.9-15.3 [facility] Globulin Calc (S) [Mass/Vol] Ordered By: Mk Parker on 10-03-2024 Globulin (S) [Mass/Vol] Serum globulin measurement by calculation (mass/volume) [facility] Glucose [Mass/volume] in Ser um or PlasmaOrdered By: Mk Parker on 10-03-2024 Glucose [Mass/Vol] Glucose [Mass/volume ] in Serum or Plasma High 70-100 [facility] Comment on above: ADA recommended refe rence rangeRandom Glucose Reference Range is dependent on time and content of last meal. Glucose of more than 200 mg/dL in a nonstressed, ambulatory subject supports the diagnosis of Diabetes Mellitus. Hematocrit Auto (Bld) [Volum e fraction]Ordered By: Mk Parker on 10-03-2024 Hematocrit (Bld) [Volume fraction] Hematocrit [Volume Fraction] of Blood by Automated count 34.0-46.4 [facility] Hemoglobin [Mass/volume] in BloodOrdered By: Mk Parker on 10-03-2024 Hemoglobin (Bld) [Mass/Vol] Hemoglobin [Mass/volume] in Blood 11.8-15.4 [facility] Hepatic Panelon 10-03-2024 Albumin [Mass/Vol] 4.0 g/dL Normal 3.5-5.7 [facility] Comment on above: Performed By: #### H S TROP, CBC, PT, CK, BMP, HEPATIC, BNP #### [facility] [address] Albumin/Globulin [Mass ratio] 1.3 {ratio} Normal [facility] Comment on above: Performed By: #### H S TROP, CBC, PT, CK, BMP, HEPATIC, BNP #### [address] ALP [Catalytic activity/Vol] 69 U/L Normal 34-104 [facility] Comment on above: Performed By: #### H S TROP, CBC, PT, CK, BMP, HEPATIC, BNP #### [address] ALT [Catalytic activity/Vol] 10 U/L Normal 7-52 [facility] Comment on above: Performed By: #### H S TROP, CBC, PT, CK, BMP, HEPATIC, BNP #### [address] AST [Catalytic activity/Vol] 11 U/L Low 13-39 [facility] Comment on above: Performed By: #### H S TROP, CBC, PT, CK, BMP, HEPATIC, BNP #### [place] [address] [place] Bilirubin [Mass/Vol] 0.2 mg/dL Low 0.3-1.0 [facility] Comment on above: Performed By: #### H S TROP, CBC, PT, CK, BMP, HEPATIC, BNP #### [place] [address] [place] Bilirubin,Indirect 0.2 mg/dL Normal [facility] Comment on above: Performed By: #### H S TROP, CBC, PT, CK, BMP, HEPATIC, BNP #### [address] Bilirubin.indirect [Mass/Vol] 0.00 mg/dL Low 0.03-0.18 [facility] Comment on above: Result Comment: If t he DBIL is less than 0.1, IBIL is not able to be calculated. Performed By: #### H S TROP, CBC, PT, CK, BMP, HEPATIC, BNP #### [facility] [address] Globulin (S) [Mass/Vol] 3.1 g/dL Normal [facility] Comment on above: Performed By: #### H S TROP, CBC, PT, CK, BMP, HEPATIC, BNP #### [facility] [address] Protein [Mass/Vol] 7.1 g/dL Normal 6.4-8.9 [facility] Comment on above: Performed By: #### H S TROP, CBC, PT, CK, BMP, HEPATIC, BNP #### [facility] [address] INR in Platelet poor plasma by Coagulation assayOrdered By: Mk Parker on 10-03-2024 INR Coag (PPP) [Relative time] INR in Platelet poor plasma by Coagulation assay [facility] Comment on above: INR Therapeutic Rang [...] with mechanical heart valves: 3 - 4.5 Leukocytes [#/volume] correc diego for nucleated erythrocytes in Blood by Automated counOrdered By: Mk Parker on 10-03-2024 WBC corrected for nucl RBC Auto (Bld) [#/Vol] Leukocytes [#/volume] corrected for nucleated erythrocytes in Blood by Automated coun High 3.8-11.6 [facility] Lymphocytes Auto (Bld) [#/Vo l]Ordered By: Mk Parker on 10-03-2024 Lymphocytes (Bld) [#/Vol] Lymphocytes [#/volume] in Blood by Automated count High 1.00-4.8 [facility] Lymphocytes/100 WBC Auto (Bl d)Ordered By: Mk Parker on 10-03-2024 Lymphocytes/100 WBC (Bld) Lymphocytes/100 leukocytes in Blood by Automated count . [facility] MCH Auto (RBC) [Entitic mass ]Ordered By: Mk Parker on 10-03-2024 MCH (RBC) [Entitic mass] MCH [Entitic mass] by Automated count 24.7-34.3 [facility] MCHC Auto (RBC) [Mass/Vol]Or dered By: Mk Parker on 10-03-2024 MCHC (RBC) [Mass/Vol] MCHC [Mass/volume] by Automated count 32.0-35.0 [facility] MCV Auto (RBC) [Entitic vol] Ordered By: Mk Parker on 10-03-2024 MCV (RBC) [Entitic vol] MCV [Entitic volume] by Automated count 80-100 [facility] Monocyte distribution width [Entitic volume] in Blood by AutomatedOrdered By: Mk Parker on 10-03-2024 Monocyte distribution width Auto (Bld) [Entitic vol] Monocyte distribution width [Entitic volume] in Blood by Automated 0.00-20.00 [facility] Monocytes Auto (Bld) [#/Vol] Ordered By: Mk Parker on 10-03-2024 Monocytes (Bld) [#/Vol] Automated blood monocyte count 0.0-0.8 [facility] Monocytes/100 WBC Auto (Bld) Ordered By: Mk Parker on 10-03-2024 Monocytes/100 WBC (Bld) Automated monocyte % . [facility] Natriuretic peptide B [Mass/ Vol]Ordered By: Mk Parker on 10-03-2024 Natriuretic peptide B (Bld) [Mass/Vol] BNP ser/plas 5-100 [facility] Neutrophils Auto (Bld) [#/Vo l]Ordered By: Mk Parker on 10-03-2024 Neutrophils (Bld) [#/Vol] Neutrophils [#/volume] in Blood by Automated count 1.8-7.7 [facility] Neutrophils/100 WBC Auto (Bl d)Ordered By: Mk Parker on 10-03-2024 Neutrophils/100 WBC (Bld) Automated neutrophil % . [facility] No Panel InformationOrdered By: Mk Parker on 10-03-2024 Estimated GFR (CKD-EPI) > 60.0 mL/Min [facility] Creatinine Clearance (Chem 180.64 [facility] Nucleated erythrocytes [Pres ence] in Blood by Automated countOrdered By: Mk Parker on 10-03-2024 Nucleated RBC Auto Ql (Bld) Nucleated erythrocytes [Presence] in Blood by Automated count 0-0.5 [facility] Platelet mean volume Auto (B ld) [Entitic vol]Ordered By: Mk Parker on 10-03-2024 Platelet mean volume (Bld) [Entitic vol] Platelet mean volume [Entitic volume] in Blood by Automated count 6.3-10.7 [facility] Platelets Auto (Bld) [#/Vol] Ordered By: Mk Parker on 10-03-2024 Platelets (Bld) [#/Vol] Platelets [#/volume] in Blood by Automated count 150-450 [facility] Potassium [Moles/volume] in Serum or PlasmaOrdered By: Mk Parker on 10-03-2024 Potassium [Moles/Vol] Potassium [Moles/v olume] in Serum or Plasma Low 3.5-5.1 [facility] Protein [Mass/volume] in Ser um or PlasmaOrdered By: Mk Parker on 10-03-2024 Protein [Mass/Vol] Protein [Mass/volume ] in Serum or Plasma 6.4-8.9 [facility] Prothrombin Time INRon 10-03 INR Coag (PPP) [Relative time] 1.0 {INR} Normal [facility] Comment on above: Result Comment: INR Therapeutic Range A) Pre- and Peroperative OAT started two weeks before surgery. NOT HIP SURGERY: 1.5 - 2.5 HIP SURGERY: 2 - 3 B) Primary and secondary prevention of venous THROMBOSIS: 2 - 3 C) Active venous thrombosis, pulmonary embolism and prevention of recurrent venous thrombosis: 2 - 3 D) Prevention of arterial thromboembolism including patients with mechanical heart valves: 3 - 4.5 PERFORMED BY: [place] [address] [place] [address] PATHOLOGIST OLIVE BRINE TESTER ANGELA NORTON M.D. Performed By: #### H S TROP, CBC, PT, CK, BMP, HEPATIC, BNP ####[facility] [address] [place] [address] [facility] PT Coag (PPP) [Time] 11.6 s Normal 9.0-12.9 [facility] Comment on above: Result Comment: A he matocrit value greater than 55% may lead to inaccurate results in coagulation testing. Patients having hematocrit values >55% require a special collection tube for coagulation studies. Please contact the laboratory at [phone] for redraw instructions. Performed By: #### H S TROP, CBC, PT, CK, BMP, HEPATIC, BNP ####[facility] [address] [place] [address] [facility] Prothrombin time (PT)Ordered By: Mk Parker on 10-03-2024 PT Coag (PPP) [Time] Prothrombin time (PT) 9.0- 12.9 [facility] Comment on above: A hematocrit value g reater than 55% may lead to inaccurate results in coagulation testing. Patients having hematocrit values >55% require a special collection tube for coagulation studies. Please contact the laboratory at [phone] for redraw instructions. RBC Auto (Bld) [#/Vol]Ordere d By: Mk Parker on 10-03-2024 RBC (Bld) [#/Vol] Erythrocytes [#/volu me] in Blood by Automated count 3.60-5.00 [facility] Serum or plasma albumin/glob ulin mass ratioOrdered By: Mk Parker on 10-03-2024 Albumin/Globulin [Mass ratio] Serum or plasma albumin/globulin mass ratio [facility] Serum or plasma anion gap de terminationOrdered By: Mk Parker on 10-03-2024 Anion gap [Moles/Vol] Serum or plasma an ion gap determination 6.0-15.0 [facility] Serum or plasma non-glucuron idated bilirubin measurement (mass/volume)Ordered By: Mk Parker on 10-03-2024 Bilirubin.indirect [Mass/Vol] Serum or plasma non-glucuronidated bilirubin measurement (mass/volume) [facility] Sodium [Moles/volume] in Ser um or PlasmaOrdered By: Mk Parker on 10-03-2024 Sodium [Moles/Vol] Sodium [Moles/volume ] in Serum or Plasma 136-145 [facility] Troponin I High Sensitivityo n 10-03-2024 Troponin I High Sensitivity 4.4 pg/mL Normal 0.0-15.0 [facility] Comment on above: Result Comment: PERF ORMED BY: [facility] [address] [place] [id number] PATHOLOGIST OLIVE BRINE TESTER ANGELA NORTON M.D. Performed By: #### H S TROP, CBC, PT, CK, BMP, HEPATIC, BNP ####[facility] [address] Troponin I.cardiac [Mass/vol ume] in Serum or Plasma by Detection limit <= 0.01 ng/Ordered By: Mk Parker on 10-03-2024 Troponin I.cardiac DL <= 0.01 ng/mL [Mass/Vol] Troponin I.cardiac [Mass/volume] in Serum or Plasma by Detection limit <= 0.01 ng/ 0.0-15.0 [facility] Urea nitrogen [Mass/volume] in Serum or PlasmaOrdered By: Mk Parker on 10-03-2024 Urea nitrogen [Mass/Vol] Urea nitrogen [Mass/volume] in Serum or Plasma 7-25 [facility] WBC Auto (Bld) [#/Vol]Ordere d By: Mk Parker on 10-03-2024 WBC (Bld) [#/Vol] Leukocytes [#/volume ] in Blood by Automated count High 3.8-11.6 [facility] CNCOon 08-31-2024 CNCO Letter Text Normal [facility] CNOVon 08-31-2024 CNOV Office Visit (LOORRM ) GARY VIGIL ([id number]) 1985 F Date Time Provider Department 08/31/24 10:00 AM EULALIA FUENTESORRMyles During your visit today, we recorded the following information about you: Eulalia Fuentes DPM 08/31/2024 10:46 AM Signed Patient Visit for Gary Vigil 1985 39 year old female SUBJECTIVE: Chief Complaint: Patient presents with: Left Foot - Established Patient, Post Op Pain Scales: Verbal (Numeric Rating or Visual Analog Scale) Pain Level: 9 Pain Location: Foot-Left Description: Aching, Cramping, Incision, Numbness, Pressure, Sharp, Shooting, Sore, Spasm, Stabbing, Stiffness, Throbbing Duration Amount of Time: 12 Duration Units: Weeks (post op) Frequency: Continuous Intervention/Comfort measure: Relaxation, Massage, Pillow support, Positioning Comments: She is here for a 12 week post op of the left foot. Surgery performed on 05/01/24. Additional HPI: LEFT plantar foot pain Recurrent hyperkeratosis Pain 1st metatarsal phalangeal joint Pain plantar hallux interphalangeal joint Worse with activity Pain with standing PCP: No primary care provider on file. No past medical history on file. Current Outpatient Medications Medication Sig mupirocin (BACTROBAN) 2 % ointment Apply 1 application to affected area two times a day. dulaglutide (TRULICITY) 1.5 mg/0.5 mL pen injector [...] Currently Drug use: Not Currently Tobacco Use: Types: Cigarettes REVIEW OF SYSTEMS: The remainder of the ROS was reviewed with the patient and is negative except as noted. OBJECTIVE: General: Pleasant in no acute distress Lower extremity exam: Vascular exam: Normal vascular exam, palpable pluses with brisk capillary fill Neurological exam: Unchanged No pain out of proportion Dermatological exam: Hyperkeratosis plantar medial LEFT great toe with tenderness to palpation Hyperkeratosis plantar lateral LEFT forefoot with tenderness to palpation Other Normal exam without rashes or lesions of skin. No evidence of evidence of petechiae, purpura, t (more content not included)... Normal [facility]20[facility] GARY VIGIL ([id number]) 1985 F Date Time Provider Department 08/07/24 EULALIA FUENTES During your visit today, we recorded the following information about you: Heavenly Dao 08/07/2024 8:54 AM Signed Type of form: Short-term Disability Form received via walk in When form is completed, Form has been forwarded to handing off form directly to Margie Grubbs Allergies As of Date: 08/07/2024 Noted Allergy Reaction KETOROLAC 06/01/2020 4 - Hives PREDNISONE 06/28/2021 14 - Other: See Comments TRAMADOL 06/01/2020 14 - Other: See Comments Date Reviewed: 07/22/2024 Reviewed by: Margie Pa OCCA - Fully Assessed Reason for Visit: [facility] Paperwork [0182] Prescriptions as of 08/07/2024 - mupirocin (BACTROBAN) 2 % ointment Apply [...] mg by mouth daily at bedtime. - [employer] ULTRA TEST test strip twice daily. TEST [...] the nose. 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 Normal [facility] CNPNon 07-30-2024 CNPN Telephone (LOORRM) GARY VIGIL ([id number]) 1985 F Date Time Provider Department 07/30/24 EULALIA FUENTES During your visit today, we recorded the following information about you: Sera Bynum 07/30/2024 2:43 PM Aydin Cody is calling Eulalia Fuentes DPM today with concern regarding dropping off paperwork tomorrow to office AND have it filled out right away States this is Medical paperwork for her current workplace Please advise [phone] Patient has been identified by name and birthdate. Duration of symptoms: N/A Person calling: self Call patient at: on cell [phone] (home) [phone] (cell) Was an appointment scheduled: No Closing statement: Results or non-symptom based questions: Thank you for calling [facility], your call will be returned within the next business day. Marley Dahl 08/03/2024 10:29 AM Signed Patient calling again, advising that she is faxing in paperwork today that she needs filled out for her workplace [employer]. She is including the return fax # with that as well. She is also requesting most recent office notes from 07/22 to be faxed to [place]. Please advise Yelena Momin 08/03/2024 3:00 PM Signed Patient is calling again asking if you received the fax she sent today as mentioned below. Patient is asking for a call back today as she has not heard back since early last week. Please advise. Margie Pa OCCA 08/03/2024 4:54 PM Signed Called and informed patient we have not received a new fax from [employer]. She informed me they sent one 2 days ago and she sent one from her local library today. Informed patient I will reach out and see if this paperwork was obtained. Margie Pa OCCA 08/03/2024 4:59 PM Signed Form was obtained in [place]. It is being scanned into the chart and will be completed and faxed out tomorrow. 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 [email or web address] Margie Pa OCCA 08/06/2024 2:12 PM Signed Paperwork sent Allergies As of Date: 07/30/2024 Noted Allergy Reaction KETOROLAC 06/01/2020 4 - Hives PREDNISONE 06/28/2021 14 - Other: See Comments TRAMADOL 06/01/2020 14 - Other: See Comments Date Reviewed: 07/22/2024 Reviewed by: Margie Pa OCCA - Fully Assessed Reason for Visit: Patient Question [1477] Prescriptions as of 08/06/2024 - mupirocin (BACTROBAN) 2 % ointment Apply [...] once daily if needed for [employer] - [employer] 225 mg/1.5 mL auto-injector inject subcutaneously [...] 1 tablet by mouth if needed to (more content not included)... Normal [facility] CNOVon 07-22-2024 CNOV Office Visit (LOORRM ) GARY VIGIL ([id number]) 1985 F Date Time Provider Department 07/22/24 11:45 AM EULALIA FUENTESORRMyles During your visit today, we recorded the following information about you: Eulalia Fuentes DPM 07/22/2024 11:51 AM Signed Gary Vigil 1985 July 22, 2024 HPI: Patient presents for postop follow up. Still having pain at site of hyperkeratosis plantar medial great toe and plantar forefoot Perception of numbness and tingling great toe O: Neurovascular status is grossly intact. Surgical site well healed. Calf soft non tender, no evidence of Deep Venous Thrombosis. Toes in good alignment. No pain with ROM (Range of Motion) joints. Manual muscle strength evaluation intact Hyperkeratosis plantar lateral forefoot and medial great toe with tenderness to palpation A: Progressing well post op P: In order to perform a complete physical exam, Utilizing a #15 scalpel blade hyperkeratosis reduction was performed. This incidental service is integral to the evaluation and management visit in order to appropriately manage and treat the patient (for their complaint or for this visit). Bi laminent PPT insoles custom fabricated and dispensed Home care education and instructions discussed CeraVe topical cream emollient twice daily or equivalent Follow up 1 month Eulalia Fuentes DPM Allergies As of Date: 07/22/2024 Noted Allergy Reaction KETOROLAC 06/01/2020 4 - Hives PREDNISONE 06/28/2021 14 - Other: See Comments TRAMADOL 06/01/2020 14 - Other: See Comments Date Reviewed: 07/22/2024 Reviewed by: Margie Pa OCCA - Fully Assessed Reason for Visit: Established Patient [175] Post Op [174] Primary Visit Diagnosis:Post-operative state [Z98.890] Prescriptions as of 07/22/2024 - mupirocin (BACTROBAN) 2 % ointment Apply [...] mg by mouth daily at bedtime. - [employer] ULTRA TEST test strip twice daily. TEST [...] the nose. 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 Normal [facility] ALL CBC WITH AUTO DIFFon BASOPHILS ABSOLUTE AUTO 0.1 [facility] Basophils/100 WBC (Bld) 0.5 % 0.2 - 2.0 % [facility] Eosinophils/100 WBC (Bld) 1.5 % 0.9 - 7.0 % [facility] Erythrocyte distribution width (RBC) [Ratio] 13.4 % 11.0 - 15.0 % [facility] Hematocrit (Bld) [Volume fraction] 39.0 % 36.0 - 48.0 % [facility] Hemoglobin (Bld) [Mass/Vol] 13.0 g/dL 12.0 - 16.0 g/dL [facility] IMMATURE GRANULOCYTES ABS AUTO 0.03 [facility] Immature granulocytes/100 WBC (Bld) 0.2 % 0.0 - 0.5 % [facility] Interpretation and review of laboratory results Abnormal [facility] LYMPHOCYTES ABSOLUTE AUTO 4.3 High [facility] Lymphocytes/100 WBC (Bld) 34.8 % 20.5 - 60.0 % [facility] MCH (RBC) [Entitic mass] 30.2 pg 26.7 - 34.0 pg [facility] MCHC (RBC) [Mass/Vol] 33.3 g/dL 29.9 - 35.2 g/dL [facility] MCV (RBC) [Entitic vol] 90.7 fL 81.0 - 99.0 fL [facility] MONOCYTES ABSOLUTE AUTO 0.7 [facility] Monocytes/100 WBC (Bld) 5.9 % 1.7 - 12.0 % [facility] NEUTROPHILS ABSOLUTE AUTO 7.0 High [facility] Neutrophils/100 WBC (Bld) 57.1 % 43.0 - 75.0 % [facility] Platelet mean volume (Bld) [Entitic vol] 10.2 fL 9.5 - 13.5 fL [facility] EO # 0.2 [facility] PLT [address] [facility] RBC 4.30 [facility] WBC 12.2 High [facility] Bejnamin 07-16-2024 L Specimen: [id number] R eceived: 07/16/24 Status: HILARY Shane Num: [id number] Spec Type: Surgical Subm Dr: Rigoberto Montano Tissues: A Ovary - Cyst, Non-Neoplastic (OVARY, DERMOID CYST) Procedures: HE/3, Gross/Micro L4 Age/ Patient Sex Location Account Attending Physician Gary Vigil 39/F [place] [id number] Rigoberto Montano SPEC NUM: [id number] RECD: 07/16/24 [facility] [id number] ZHENG: 07/16/[address]: Rigoberto Montano ENTERED: 07/16/24 [facility] DR: SPEC TYPE: Surgical DEPT: GRISEL GELLER ENTERED BY: [id number] RECV BY: [id number] ORDERED: HE/3, Gross/Micro L4 ORDERED: HE/3, Gross/Micro L4 Pathological Diagnosis Ovarian cyst, excision: Mature cystic teratoma (dermoid cyst). Clinical Information Pelvic pain, dermoid cyst path pending Gross Description The specimen was received in formalin with the patient's name and ovary, dermoid cyst is a disrupted pink ovary measuring 4.5 x 3.3 x 2.5 cm. The exterior surface is mcmullen-pink nodular the specimen is serially sectioned revealing multiple cystic structures ranging in size from 0.1 to 3.0 cm in greatest dimension. The largest cyst is filled with a white cystic debris, fatty tissue, calcified material and hair. Director Of Pupil Personnel Program sections are submitted in cassettes A1-A3. CPT Codes 68088 -------- -------- Specimen: [id number] Received: 07/16/24 Status: HILARY Shane Num: [id number] Spec Type: Surgical Subm Dr: Rigoberto Montano Tissues: A Ovary - Cyst, Non-Neoplastic (OVARY, DERMOID CYST) Procedures: HE/3, Gross/Micro L4 -------- Patient: Gary Vigil [id number] (Continued) -------- Signed (signature on file) Ricardo Chau MD 07/21/24 1413 Normal [facility] CNPMary 07-10-2024 CNPN Telephone (LOORR) GARY VIGIL ([id number]) 1985 F Date Time Provider Department 07/10/24 EULALIA FUENTES During your visit today, we recorded the following information about you: Heavenly Dao 07/10/2024 4:19 PM Signed Type of form: Short-term Disability Form received via fax When form is completed, Form has been forwarded to Dr. Fuentes's mail slot at [facility] check-out [place], CHRIS 07/13/2024 9:30 AM Signed Patient calls [...] Conformation will be scanned into patients chart. Sera Bynum 07/31/2024 9:36 AM Signed Patient states Libby never received std paperwork for 07/22 Please advise Margie Pa OCCA 08/03/2024 5:03 PM Signed Called and spoke to patient. Paperwork is obtained and will be completed and sent out tomorrow. Allergies As of Date: 07/10/2024 Noted Allergy Reaction KETOROLAC 06/01/2020 4 - Hives PREDNISONE 06/28/2021 14 - Other: See Comments TRAMADOL 06/01/2020 14 - Other: See Comments Date Reviewed: 06/23/2024 Reviewed by: Margie Pa OCCA - Fully Assessed Reason for Visit: Disability [Other] Prescriptions as of 08/03/2024 - mupirocin (BACTROBAN) 2 % ointment Apply [...] [R73.01] 11/23/2020 Cigarette nicotine dependence without complicat*11/01/2021 jail (current) use of oral hypoglycemic dr*11/01/2021 Other specified postprocedural states [Z98.890] 04/03/2021 Other specified symptoms and signs involving th*01/06/2021 BMI 39.0-39.9,adult [Z68.39] 02/10/2021 Contact with and (suspected) exposure to covid-*10/28/2021 Fibromyalgia (more content not included)... Normal [facility] CNOVon 06-23-2024 CNOV Office Visit (PDAVON ) GARY VIGIL ([id number]) 1985 F Date Time Provider Department 06/23/24 [...] gave out my personal mobile telephone number [phone] to call at anytime if needed. Instructed that if I am not available should contact the reconciling clerk supervisor pairing and inspecting or go to the emergency room. Social [...] tablet by (more content not included)... 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 Normal [facility] CNOVon 05-20-2024 CNOV Office Visit (LOORRM ) GARY VIGIL ([id number]) 1985 F Date Time Provider Department 05/20/24 11:30 AM EULALIA FUENTES During your visit today, we recorded the following information about you: Eulalia uFentes DPM 05/20/2024 4:15 PM Signed This 40 [...] gave out my personal mobile telephone number [phone] to call at anytime if needed. Instructed that if I am not available should contact the reconciling clerk supervisor pairing and inspecting or go to the emergency room. Recommend [...] mg by mouth daily at bedtime. - [employer] ULTRA TEST test strip twice daily. TEST [...] TAB... (REFER (more content not included)... Normal [facility] CNPNon 05-11-2024 CNPN Telephone (LOORR) GARY VIGIL ([id number]) 1985 F Date Time Provider Department 05/11/24 EULALIA FUENTES During your visit today, we recorded the following information about you: Betsy Doty, RN 05/11/2024 3:55 PM Signed Pt calls - foot surgery noted C/o [...] mg by mouth daily at bedtime. - [employer] ULTRA TEST test strip twice daily. TEST [...] [R73.01] 11/23/2020 Cigarette nicotine dependence without complicat*11/01/2021 jail (current) use of oral hypoglycemic dr*11/01/2021 Other [...] 11/01/2021 O (more content not included)... Normal [facility] CNOVon 05-07-2024 CNOV Office Visit ([facility] ) GARY VIGIL ([id number]) 1985 F Date Time Provider Department 05/07/24 [...] gave out my personal mobile telephone number [phone] to call at anytime if needed. Instructed that if I am not available should contact the reconciling clerk supervisor pairing and inspecting or go to the emergency room. Eulalia [...] Encounter for (more content not included)... [facility] Tele[facility] (ALEJANDRAORR) GARY VIGIL ([id number]) 1985 F Date Time Provider Department 05/05/24 EULALIA FUENTES During your visit today, we recorded the following information about you: Srinivas Jael Reese 05/05/2024 2:27 PM Adyin Cody is calling Eulalia Fuentes DPM today to request [facility] Paperwork to be updated and sent to her employer. Patient states her original surgery was cancelled and needs this done AGUS. Patient states she just had the surgery on 05/01/24. Patient has been identified by name and birthdate. Duration of symptoms: N/A Person calling: self Call patient at: on cell [phone] (home) [phone] (cell) Was an appointment scheduled: No Closing statement: Results or non-symptom based questions: Thank you for calling [facility], your call will be returned within the next business day. Margie Guzman OCCA 05/05/2024 3:16 PM Signed Called and spoke with patient new paperwork was suppose to be faxed over to the [place] office yesterday. Informed patient I will be in [place] tomorrow and will keep and eye out for the paperwork to be completed and sent out as soon as possible. Informed her we are allocated 7-10 business days to complete the forms. Margie Pa OCCA 05/06/2024 9:38 AM Addendum Paperwork received completed and faxed. Will be scanned into patients chart. Jael Fernandez 06/08/2024 9:10 AM Signed Patient states her employer is asking for [place] paperwork for last office visit to be refaxed to her employer. Please advise patient. Margie Pa OCCA 06/08/2024 1:56 PM Signed Called and informed patient we have not received new paperwork. Will send the old documents and request new forms to complete an extension. Kathy Mcginnis, RN 06/10/2024 8:52 AM Signed Pt called and is requesting a call from Margie regarding her [facility] paperwork. Per patient, the new paperwork has already been sent and it needs to be sent to her work by Saturday. Pt requesting to be called at [phone] for an update. Margie Pa OCCA 06/10/2024 [...] be completed and faxed back? Please advise [phone]. Margie Pa OCCA 07/14/2024 10:36 AM Signed Spoke to patient. Paperwork faxed. Confirmation will be uploaded into patients chart. Allergies As of Date: 05/05/2024 Noted Allergy Reaction KETOROLAC 06/01/2020 4 - Hives PREDNISONE 06/28/2021 14 - Other: See Comments TRAMADOL 06/01/2020 14 - Other: See Comments Date Reviewed: 05/01/2024 Reviewed by: Judy Mills RN - Fully Assessed Reason for Visit: [facility] Paperwork [5] Prescriptions as of 07/14/2024 - mupirocin (BACTROBAN) [...] mg by (more content not included)... Normal [facility] ANES POSTPROC EVALon 024 ANES POSTPROC EVAL HNO ID: [id number] Author: SEJAL LAI MD Service: Anesthesiology Author Type: Anesthesiologist Type: Anesthesia Postprocedure Evaluation Filed: 05/01/2024 13:45 Note Text: POST ANESTHESIA EVALUATION NOTE : 1985 Procedure Summary Date: 05/01/24 Room / Location: [address] Anesthesia Start: 734 Anesthesia Stop: 839 Procedure: EXCISION BENIGN CYST/MASS [...] May 01, 2024 TIME: 1:44 PM CSN: [id number] Normal [facility] ANES PRE-OPon 05-01-2024 ANES PRE-OP HNO ID: [id number] Author: SEJAL LAI MD Service: Anesthesiology Author Type: Anesthesiologist Type: Anesthesia Preprocedure Evaluation Filed: 05/01/2024 06:58 Note Text: ANESTHESIOLOGY DAY OF SURGERY NOTE : 1985 Procedure Information Date/Time: 05/01/24729 Procedure: EXCISION BENIGN CYST/MASS LESION LOWER EXTREMITY < 0.5CM (Left: Foot) Location: [place] [address] / [facility] Surgeons: Eulalia Fuentes DPM Estimated body mass [...] and consent discussed: yes. Patient / Responsible Republican agrees to proceed: yes Patient / Surrogate agrees to blood products: blood products not planned Significant changes in the patient condition since the History and Physical, not otherwise documented in primary service progress note: no. Potential Anesthesia issues that may suggest increased risk of complications or contraindication to planned procedure: none. Vitals Value Taken Time BP 151/89 05/01/24652 Pulse 95 05/01/24652 Resp 16 05/01/24652 Temp 36.7 ?C (98 ?F) 05/01/24652 SpO2 [...] if needed (more content not included)... Normal [facility] BRIEF OP NOTon 05-01-2024 BRIEF OP NOT HNO ID: [id number] Author: EULALIA FUENTES DPM Service: Podiatry Author Type: Physician Type: Brief Op Note Filed: 05/01/2024 08:32 Note Text: BRIEF OPERATIVE / PROCEDURE NOTE LOG ID: [id number] SURGERY/PROCEDURE DATE: 05/01/2024 INCISION/PROCEDURE START TIME: 8:00 AM INCISION CLOSE/PROCEDURE END TIME: 8:26 AM SURGEON(S)/PROCEDURALIST(S) AND DRAWSTRING KNOTTER(S): Surgeon(s) and Role: * Eulalia Fuentes DPM [...] May 01, 2024 TIME: 8:29 AM Normal [facility] OPERATIVE NOon 05-01-2024 OPERATIVE NO HNO ID: [id number] Author: EULALIA FUENTES DPM Service: Podiatry Author Type: Physician Type: Operative Report Filed: 05/01/2024 12:58 Note Text: OPERATIVE/PROCEDURE REPORT LOG ID: [id number] SURGERY/PROCEDURE DATE: 05/01/2024 INCISION/PROCEDURE START TIME: 8:00 AM INCISION CLOSE/PROCEDURE END TIME: 8:26 AM SURGEON(S)/PROCEDURALIST(S) AND DRAWSTRING KNOTTER(S): Surgeon(s) and Role: * Eulalia Fuentes DPM [...] surgeon/proceduralist performed the procedure with assistance. SIGNATURE: Euallia Fuentes DPM PATIENT NAME: Gary Vigil DATE: May 01, 2024 TIME: 8:32 AM Normal [facility] SURGICAL PATHOLOGYon 024 CASE REPORT Normal [facility] Comment on above: Order Comment: Marah randhawa Type: TISSUE SPECIMENOrdering Facility: [facility] Address: [address] [place] [address] Result Comment: Surg [facility] Pathology Report Case: [id number] Authorizing Provider: Eulalia Fuentes DPM Collected: 05/01/2024 08:12 AM Ordering Location: Ambulatory Surgery Received: 05/01/2024 12:46 PM Pathologist: Eulalia Ram MD Specimen: Soft Tissue, Mass, Biopsy, scar plantar left foot Performed By: #### S ####[facility] LABCLIA [id number] [address] [place] CLINICAL HISTORY Normal [facility] Comment on above: Order Comment: Marah randhawa Type: TISSUE SPECIMENOrdering Facility: [facility] Address: [address] [place] [address] Result Comment: Pre- op diagnosis: History of foot surgery [Z98.890] DM (diabetes mellitus), type 2 with neurological complications (HCC) [E11.49] Painful scar [R52, L90.5] Hyperkeratosis [L85.9] Performed By: #### S ####[facility] LABIA [id number] [address] [place] FINAL DIAGNOSIS Normal [facility] Comment on above: Order Comment: Marah randhawa Type: TISSUE SPECIMENOrdering Facility: [facility] Address: [address] [place] [address] Result Comment: Soft tissue, left plantar foot, excision: - Hyperkeratosis and dermal fibrosis, consistent with scar. Performed By: #### S ####[facility] LABCLIA [id number] [address] OF [facility] FINAL PERFORMING LAB Normal [facility] Comment on above: Order Comment: Speci men Type: TISSUE SPECIMENOrdering Facility: [facility] Address: [address] [place] [address] Result Comment: Diag nostic interpretation performed at [facility], [address] [place] [address] CLIA# [id number] Help Desk Engineer: Sarthak Perez M.D. Performed By: #### S ####[facility] LABIA [id number] [address] OF [facility] GROSS DESCRIPTION Normal [facility] Comment on above: Order Comment: Speci men Type: TISSUE SPECIMENOrdering Facility: [facility] Address: [address] [place] [address] Result Comment: A. S oft Tissue, Mass, Biopsy In formalin labeled as scar plantar left foot is an ellipse of granular bulging skin and tissue measuring 3.5 x 1.2 x 1.2 cm. On the skin surface is an ulcerative area measuring 0.5 x 0.5 cm. Sectioning reveals mcmullen-yellow firm cut surfaces with mcmullen-white areas of discoloration. Director Of Pupil Personnel Program sections are submitted in 1 cassette. ML May 04, 2024 11:50 AM Gross examination performed at [facility], [address] [place] [address] Performed By: #### S ####[facility] LABIA [id number] [address] [place] HISTORY PHYSICALon HISTORY PHYSICAL HNO ID: [id number] Author: MC GONZALES APRN.PRODUCTION SUPERVISOR Service: ? 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 Other Specified Postprocedural States Other Specified Symptoms and Signs Involving The Circulatory and Respiratory Systems Bmi 39.0-39.9,Adult Contact With and (Suspected) Exposure to Covid-19 Fibromyalgia Type 2 Diabetes Mellitus With Diabetic Polyneuropathy ([facility]) Mild Intermittent Asthma Without Complication Combined Pelvic and Perineal Pain in Female Type 2 Diabetes Mellitus ([facility]) Tubal Ligation Status Obstructive Sleep Apnea of Adult Acute Postoperative Pain Other Hypersomnia Pain Due to Internal Orthopedic Prosthetic Devices, Implants and Grafts, Initial Encounter ([facility]) Pain in Left Foot Pain in Right Foot Tarsal Tunnel Syndrome of Left Side Diabetes Mellitus Type 2 With Neurological Manifestations ([facility]) History of Foot Surgery Hyperkeratosis Neuritis of Left Lower Extremity Neuralgia of Left Lower Extremity Chronic Pain of Left Ankle Acquired Dysmorphic Toenail Difficulty Walking Painful Scar Eversion Deformity of Foot, Left Pain in Both Feet Migraines Class 2 Severe Obesity Due to Excess Calories With Serious Comorbidity and Body Mass Index (Bmi) of 36.0 to 36.9 in Adult ([facility]) Subjective CHIEF COMPLAINT: Left foot pain HPI: [...] mg capsu (more content not included)... Normal [facility] CNOVon 04-27-2024 CNOV Office Visit (LOORRM ) GARY VIGIL ([id number]) 1985 F Date Time Provider Department 04/27/24 [...] 50 mg by mouth daily at bedtime. [employer] LabsTOUCH ULTRA TEST test strip twice daily. TEST [...] Labs 03/20/24 (more content not included)... 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 Normal [facility] CNPNon 04-06-2024 CNPN Telephone (PDAVON) GARY VIGIL ([id number]) 1985 F Date Time Provider Department 04/06/24 EULALIA FUENTES PDAVON During your visit today, we recorded the following information about you: Nina Bernal, CHRIS 04/06/2024 3:36 PM Signed The pt is calling, she just wanted to let you know that she went to [facility] ED yesterday and she has an infected [...] in contacts and may leave any message. SaiSoumyan 04/08/2024 9:[address] Fuentes and [...] Date Reviewed: 03/20/2024 Reviewed by: Severiano Virk APRN.PRODUCTION SUPERVISOR - Fully Assessed Reason for Visit: surgery [...] diarrhea [K58.* (more content not included)... [facility] (LOORRM) GARY VIGIL ([id number]) 1985 F Date Time Provider Department 03/24/24 EULALIA FUENTES During your visit today, we recorded the following information about you: Lissette Saleh 03/24/2024 9:47 AM Signed Type of form: FMLA Form received via fax When form is completed, Fax form to Form has been forwarded to [facility] Lissette Johnson 03/24/2024 9:49 AM Signed Faxed FMLA form to [employer] [phone] Received fax confirmation Spoke with patient Will have scanned into records. Allergies As of Date: 03/24/2024 Noted Allergy Reaction KETOROLAC 06/01/2020 4 - Hives PREDNISONE 06/28/2021 14 - Other: See Comments TRAMADOL 06/01/2020 14 - Other: See Comments Date Reviewed: 03/20/2024 Reviewed by: Severiano Virk APRN.PRODUCTION SUPERVISOR - Fully Assessed Prescriptions as of 03/24/2024 [...] mg by mouth daily at bedtime. - [employer] ULTRA TEST test strip twice daily. TEST [...] once daily if needed for SWELLING - [employer] AUTOINJECTOR 225 mg/1.5 mL auto-injector inject subcutaneously [...] [R73.01] 11/23/2020 Cigarette nicotine dependence without complicat*11/01/2021 jail (current) use of oral hypoglycemic dr*11/01/2021 Other [...] 2 wi (more content not included)... Normal [facility] HISTORY PHYSICALon HISTORY PHYSICAL HNO ID: [id number] Author: SEVERIANO VIRK APRN.LILLY Service: ? Author Type: Nurse Practitioner Type: [...] days prior to procedure On Follows with Family health services To get [...] (BMI) of 36.0 to 36.9 in adult ([facility]) Assessment: Body mass index is 36.65 kg/m?. [...] by mouth (more content not included)... Normal [facility] HbA1c (Bld)on 03-20-2024 Average glucose Estimated from glycated hemoglobin (Bld) [Mass/Vol] 189 mg/dL [facility] Comment on above: eAG: (Estimated aver age glucose) is a calculated value from HgbA1c and is brand representative of the average blood glucose level in the last 2-3 month period. HbA1c (Bld) [Mass fraction] 8.2 % High 4.3 - 5.6 % [facility] Comment on above: [place] Diabetes As sociation guidelines indicate that patients with HgbA1c in the range 5.7-6.4% are at increased risk for development of diabetes, and intervention by lifestyle modification may be beneficial. HgbA1c greater or equal to 6.5% is considered diagnostic of diabetes. Interpretation and review of laboratory results Abnormal [facility] Average glucose Estimated from glycated hemoglobin (Bld) [Mass/Vol] 189 mg/dL Normal [facility] Comment on above: Order Comment: Speci men Type: BLOOD SPECIMENOrdering Facility: [facility] Address: [address] [place] [address] Result Comment: eAG: (Estimated average glucose) is a calculated value from HgbA1c and is brand representative of the average blood glucose level in the last 2-3 month period. Performed By: #### 5 5454-3 ####[facility] LABCLIA [id number] [facility] [id number] [place] [address] [place] HbA1c (Bld) [Mass fraction] 8.2 % High 4.3-5.6 [facility] Comment on above: Order Comment: Speci men Type: BLOOD SPECIMENOrdering Facility: [facility] Address: [address] [place] [address] Result Comment: [place] Diabetes Association guidelines indicate that patients with HgbA1c in the range 5.7-6.4% are at increased risk for development of diabetes, and intervention by lifestyle modification may be beneficial. HgbA1c greater or equal to 6.5% is considered diagnostic of diabetes. Performed By: #### 5 5454-3 ####[facility] LABCLIA [id number] [facility] [id number] [id number] [facility] [id number] 03-17-2024 [id number] HNO ID: [id number] Author: SAMARA GRECO PT, NAHIDT Service: ? Author Type: Physical Therapist Type: [id number] Filed: 03/17/2024 15:42 Note Text: [facility] Physical Therapy Plan of Care Certification Patient Name: Gary Vigil : 1985 CCF #: [id number] Date: 03/11/2024 To: Eulalia Fuentes DPM From Therapist: Samara Greco PT, DPT RE: Patient Certification/ Recertification Your review, approval and electronic signature are required in order to comply with Payor: [facility] MEDICAID / Plan: [facility] MEDICAID / Product Type: Medicaid / regulations. The identified Physical Therapy PLAN OF CARE for the patient is as follows: E11.42 Type 2 diabetes mellitus with diabetic polyneuropathy, unspecified whether mcfp insulin use (HCC) Z68.39 BMI 39.0-39.9,adult R26.2 [...] Planned: 1 Planned Treatment Interventions: Therapeutic exercise (07434), Neuromuscular re-education (66664), Manual therapy (85684), Therapeutic activities (28872), Self-prison management (55123), Patient/Family/Caregiver Education, Body Mechanics Training, Gait Training (41561) PLAN FOR NEXT VISIT: Discharge pre-operatively. Provided handouts with HEP regarding education components today. Patient demonstrates good understanding of plan of care and treatment. The above goals and plan of care were discussed and agreed upon by patient/family. For further details regarding this patient refer to the Physical Therapy electronically documented visit dated 03/11/2024. Provider Attestation I have reviewed the treatment plan for Nandiniroxann Angeles Vigil, CCF# [id number] for the period of 03/11/24 -- 05/10/24, established on 03/11/2024. Signature certifies the need for therapy services. Normal [facility] Jorge 03-17-2024 LILLYN Telephone (ORQ) GARY VIGIL ([id number]) 1985 F Date Time Provider Department 03/17/24 EULALIA FUENTES ORFrida During your visit today, we recorded the [...] calling: self Call patient at: at home [phone] (home) [phone] (cell) Was an appointment scheduled: No Closing statement: Results or non-symptom based questions: Thank you for calling [facility], your call will be returned within [...] Fully Assessed Reason for Visit: Patient Update [2924] Patient Question [4137] Order(s):cefADROxil (DURICEF) 500 mg capsuleTake 1 capsule [...] mg by mouth daily at bedtime. - [employer] ULTRA TEST test strip twice daily. TEST [...] with regula*10/27/2021 (more content not included)... Normal [facility] CNTHERAPYon 03-11-2024 CNTHERAPY OT/PT/Speech Visit ( LOPTRM) GARY VIGIL ([id number]) 1985 F Date Time Provider Department 03/11/24 9:15 AM SAMARA GRECO LOPTRM Date Time Provider Department Center 03/11/2024 9:15 AM [id number] Reason for Visit: PT Eval [747] Patient Education [91] PT Discharge [752] Visit Diagnoses:Type 2 diabetes mellitus with diabetic polyneuropathy, unspecified whether mcfp insulin use (HCC) [E11.42] BMI 39.0-39.9,adult [Z68.39] [...] Take 180 mg by mouth once daily. Sales Representative Meats: Addendum Therapy (PT/OT/Speech/Resp) ID: [id number] 03/11/2024 9:34 AM Author: SAMARA GRECO Signed by SAMARA GRECO PT, DPT on 03/11/2024 at 9:34 AM * * * This document replaces document [id number] * * * Document text: Program_ID:[id number] Access Code: [email or web address] URL: [email or web address] Date: 03-11-2024 Prepared By: Samara Greco Program Notes Patient Education - Walking with Crutches: Non Weight-Bearing - Going Up and Down Stairs With Crutches (Zvd-Jubwns-Gowkwri) - cc Gait Training Crutches Non Weight Bearing NWB - cc Gait Safety Crutch Fitting Sizing Normal [facility] THERAPY NTon 03-11-2024 THERAPY NT HNO ID: [id number] Author: SAMARA GRECO, PT, DPT Service: ? Author Type: Physical Therapist Type: Therapy (PT/OT/Speech/Resp) Filed: 03/11/2024 09:16 Note Text: Program_ID:[id number] Access Code: [email or web address] URL: [email or web address] Date: 03-11-2024 Prepared By: Samara Greco Program Notes Patient Education - Walking with Crutches: Non Weight-Bearing - Going Up and Down Stairs With Crutches (Oks-Mzdfmy-Ftkedpr) - cc Gait Training Crutches Non Weight Bearing NWB Normal [facility] CNOVon 03-09-2024 CNOV Office Visit (LOORRM ) GARY VIGIL ([id number]) 1985 F Date Time Provider Department 03/09/24 [...] 50 mg by mouth daily at bedtime. [employer] ULTRA TEST test strip twice daily. TEST [...] HB , (more content not included)... Normal [facility] Jorge 02-04-2024 NANCY Telephone (ALEJANDRAORR) GARY VIGIL ([id number]) 1985 F Date Time Provider Department 02/04/24 EULALIA FUENTES During your visit today, we recorded the following information about you: Lissette Saleh 02/04/2024 9:11 AM Signed Spoke with patient and scheduled surgery with Dr. Fuentes on 04/10/24. Patient stated she needed to be in the hospital for 24hrs. I explained to patient that [place] was an outpatient surgery center and advised her to discuss with Dr. Fuentes. Gave patient direct phone numbers. [phone] or [phone] Lissette Saleh 02/05/2024 9:40 AM Signed Patient [...] she call me back when she can [phone]. Sugar Gibbs 04/08/2024 9:29 AM Signed Spoke [...] once daily if needed for SWELLING - [employer] AUTOINJECTOR 225 mg/1.5 mL auto-injector inject subcutaneously [...] human papillo (more content not included)... Normal [facility] CNOVon 02-03-2024 CNOV Office Visit (LOORRM ) GARY VIGIL ([id number]) 1985 F Date Time Provider Department 02/03/24 [...] LEFT forefoot Difficulty walking She works at [employer] on feet at work all day Altered gait Pes plano valgus deformity symptoms Also complains of pain related to ingrown toenails great toe bilateral and medial border nail third toe RIGHT FOOT Other Very complicated history of LEFT lower extremity symptoms with multiple surgeries Gary has had symptoms of her left foot for over 15 years states she was initially treated in [place]. In 2018 she moved to [place] was seen by Dr. Shad Jacques Previous [...] seen by Dr. Sheng Covington DPM at [facility] She is wearing slippers today PCP: No [...] 50 mg by mouth daily at bedtime. [employer] ULTRA TEST test strip twice daily. TEST [...] negative exce (more content not included)... [facility] NANCY [facility] (ALEJANDRAORRM) GARY VIGIL ([id number]) 1985 F Date Time Provider Department 01/14/24 EULALIA FUENTES During your visit today, we recorded the following information about you: ZiebachSamantha 01/14/2024 12:57 PM Signed Gary is calling Eulalia E Gina, DPM today to request Schedule Surgery Patient calling to request to be contacted as soon as possible to schedule surgery. Please call patient at cell number. Patient has been identified by name and birthdate. Person calling: self Call patient at: on cell [phone] (cell) Was an appointment scheduled: No Closing statement: Results or non-symptom based questions: Thank you for calling [facility], your call will be returned within [...] See Comments Date Reviewed: 01/03/2024 Reviewed by: Margie Pa OCCA - Fully [...] diarrhea [K58. (more content not included)... Normal [facility] XR Foot - left AP and Latera l and obliqueon 11-01-2023 IMPRESSION: No acute osseous abnormality. Minimal degenerative changes, as described. Mild pes planus. Concert [facility] Lecture [employer] Manager: ANTOLIN Transcribe Date/Time: Nov 01 2023 12:36P Dictated by : LIBRADO ROJAS MD This examination was interpreted and the report reviewed and electronically signed by: LIBRADO ROJAS MD on Nov 01 2023 11:52PM [facility] DIVISION OF RADIOLOGY * * *Final Report* * * DATE [...] throughout the forefoot. Small posterior calcaneal enthesophyte. DIVISION OF RADIOLOGY Provider, [facility] Shannen Mata - 11/01/2023 * * *Final Report* * * DATE [...] throughout the forefoot. Small posterior calcaneal enthesophyte. IMPRESSION IMPRESSION: No acute osseous abnormality. Minimal degenerative changes, as described. Mild pes planus. [facility] Lecture [facility] Manager: PSCB Transcribe Date/Time: Nov 01 2023 12:36P Dictated by : LIBRADO ROJAS MD This examination was interpreted and the report reviewed and electronically signed by: LIBRADO ROJAS MD on Nov 01 2023 11:52PM EST [facility] Radiology Study observation (narrative) [facility] XR Foot - left AP and Latera l and obliqueOrdered By: Ccf Provider on 11-01-2023 [facility] Alanine aminotransferase [En zymatic activity/volume] in Serum or PlasmaOrdered By: Hanane Rondon on 10-23-2023 ALT [Catalytic activity/Vol] 19 U/L 7-52 [facility] Albumin [Mass/volume] in Ser um or Plasma by Bromocresol green (BCG) dye binding methoOrdered By: Hanane Rondon on 10-23-2023 Albumin BCG dye [Mass/Vol] 3.8 g/dL 3.5-5.7 [facility] Alkaline phosphatase [Enzyma tic activity/volume] in Serum or PlasmaOrdered By: Hanane Rondon on 10-23-2023 ALP [Catalytic activity/Vol] 83 U/L 34-104 [facility] Aspartate aminotransferase [ Enzymatic activity/volume] in Serum or PlasmaOrdered By: Hanane Rondon on 10-23-2023 AST [Catalytic activity/Vol] 17 U/L 13-39 [facility] Automated erythrocytes count in urine sediment (number/area)Ordered By: Hanane Rondon on 10-23-2023 RBC Auto (Urine sed) [#/Area] 5-9 [HPF] 0-4 [facility] Automated leukocytes count i n urine sediment (number/area)Ordered By: Hanane Rondon on 10-23-2023 WBC Auto (Urine sed) [#/Area] 10-19 [HPF] 0-4 [facility] Automated urine hyaline cast s count (number/volume)Ordered By: Hanane Rondon on 10-23-2023 Hyaline casts Auto (U) [#/Vol] 1-2 [LPF] 0-1 [facility] Basophils Auto (Bld) [#/Vol] Ordered By: Hanane Safargeena on 10-23-2023 Basophils (Bld) [#/Vol] 0.1 10*3/uL 0.0-0.2 [facility] Basophils/100 WBC Auto (Bld) Ordered By: Hanane [facility] on 10-23-2023 Basophils/100 WBC (Bld) 0.8 % . [facility] Bilirubin Test strip Ql (U)O rdered By: Hanane Rondon on 10-23-2023 Bilirubin Ql (U) Negative Negative [facility] Bilirubin.total [Mass/volume ] in Serum or PlasmaOrdered By: Hanane Rondon on 10-23-2023 Bilirubin [Mass/Vol] 0.2 mg/dL 0.3-1.0 [facility] Calcium [Mass/volume] in Ser um or PlasmaOrdered By: Hanane Yipargeena on 10-23-2023 Calcium [Mass/Vol] 8.7 mg/dL 8.6-10.3 [facility] Carbon dioxide, total [Moles /volume] in Serum or PlasmaOrdered By: Hanane Rondon on 10-23-2023 CO2 [Moles/Vol] 22.1 mmol/L 21.0-31.0 [facility] Casts typing in urine sedime nt by light microscopyOrdered By: Hanane Rondon on 10-23-2023 Casts LM Nom (Urine sed) None seen [LPF] None Seen [facility] Chloride [Moles/volume] in S dave or PlasmaOrdered By: Hanane Rondon on 10-23-2023 Chloride [Moles/Vol] 105 mmol/L 98-107 [facility] Color Auto (U)Ordered By: Co abdiazizrhina Rondon on 10-23-2023 Color (U) Yellow Yellow [facility] Creatinine [Mass/volume] in Serum or PlasmaOrdered By: Hanane Rondon on 10-23-2023 Creatinine [Mass/Vol] 0.58 mg/dL 0.60-1.20 [facility] Eosinophils Auto (Bld) [#/Vo l]Ordered By: Hanane Rondon on 10-23-2023 Eosinophils (Bld) [#/Vol] 0.2 10*3/uL 0.0-0.45 [facility] Eosinophils/100 WBC Auto (Bl d)Ordered By: Hanane Rondon on 10-23-2023 Eosinophils/100 WBC (Bld) 2.2 % . [facility] Erythrocyte distribution wid th Auto (RBC) [Ratio]Ordered By: Hanane Rondon on 10-23-2023 Erythrocyte distribution width (RBC) [Ratio] 15.4 % 11.9-15.3 [facility] Globulin Calc (S) [Mass/Vol] Ordered By: Hanane Rondon on 10-23-2023 Globulin (S) [Mass/Vol] 3.2 g/dL [facility] Glucose [Mass/volume] in Ser um or PlasmaOrdered By: Hanane Rondon on 10-23-2023 Glucose [Mass/Vol] 313 mg/dL 70-100 [facility] Comment on above: ADA recommended refe rence rangeRandom Glucose Reference Range is dependent on time and content of last meal. Glucose of more than 200 mg/dL in a nonstressed, ambulatory subject supports the diagnosis of Diabetes Mellitus. HCG ( test) IA.rapi d Ql (U)Ordered By: Hanane Rondon on 10-23-2023 HCG ( test) Ql (U) Negative [facility] Hematocrit Auto (Bld) [Volum e fraction]Ordered By: Hanane Rondon on 10-23-2023 Hematocrit (Bld) [Volume fraction] 36.6 % 34.0-46.4 [facility] Hemoglobin [Mass/volume] in BloodOrdered By: Hanane Rondon on 10-23-2023 Hemoglobin (Bld) [Mass/Vol] 12.3 g/dL 11.8-15.4 [facility] Ketones Auto test strip (U) [Mass/Vol]Ordered By: Hanane Rondon on 10-23-2023 Ketones (U) [Mass/Vol] Trace Negative [facility] Leukocytes [#/volume] correc diego for nucleated erythrocytes in Blood by Automated counOrdered By: Hanane Rondon on 10-23-2023 WBC corrected for nucl RBC Auto (Bld) [#/Vol] 9.5 10*3/uL 3.8-11.6 [facility] Lipase [Enzymatic activity/v olume] in Serum or PlasmaOrdered By: Hanane Rnodon on 10-23-2023 Lipase [Catalytic activity/Vol] 50.0 U/L 11.0-82.0 [facility] Lymphocytes Auto (Bld) [#/Vo l]Ordered By: Hanane Rodnon on 10-23-2023 Lymphocytes (Bld) [#/Vol] 4.8 10*3/uL 1.00-4.8 [facility] Lymphocytes/100 WBC Auto (Bl d)Ordered By: Hanane Rondon on 10-23-2023 Lymphocytes/100 WBC (Bld) 50.4 % . [facility] MCH Auto (RBC) [Entitic mass ]Ordered By: Hanane Rondon on 10-23-2023 MCH (RBC) [Entitic mass] 30.2 pg 24.7-34.3 [facility] MCHC Auto (RBC) [Mass/Vol]Or dered By: Hanane Rondon on 10-23-2023 MCHC (RBC) [Mass/Vol] 33.6 g/dL 32.0-35.0 [facility] MCV Auto (RBC) [Entitic vol] Ordered By: Hanane Rondon on 10-23-2023 MCV (RBC) [Entitic vol] 89.7 fL 80-100 [facility] Monocyte distribution width [Entitic volume] in Blood by AutomatedOrdered By: Hanane Rondon on 10-23-2023 Monocyte distribution width Auto (Bld) [Entitic vol] 17.04 % 0.00-20.00 [facility] Monocytes Auto (Bld) [#/Vol] Ordered By: Hanane Rondon on 10-23-2023 Monocytes (Bld) [#/Vol] 0.5 10*3/uL 0.0-0.8 [facility] Monocytes/100 WBC Auto (Bld) Ordered By: Hanane Rondon on 10-23-2023 Monocytes/100 WBC (Bld) 5.0 % . [facility] Neutrophils Auto (Bld) [#/Vo l]Ordered By: Hanane Rondon on 10-23-2023 Neutrophils (Bld) [#/Vol] 3.9 10*3/uL 1.8-7.7 [facility] Neutrophils/100 WBC Auto (Bl d)Ordered By: Hanane Rondon on 10-23-2023 Neutrophils/100 WBC (Bld) 41.6 % . [facility] Nitrite Test strip Ql (U)Ord ered By: Hanane Rondon on 10-23-2023 Nitrite Ql (U) Negative Negative [facility] No Panel InformationOrdered By: Hanane Rondon on 10-23-2023 Estimated GFR (CKD-EPI) > 60.0 mL/Min [facility] Creatinine Clearance (Chem 160.11 [facility] Nucleated erythrocytes [Pres ence] in Blood by Automated countOrdered By: Hanane Rondon on 10-23-2023 Nucleated RBC Auto Ql (Bld) 0.2 /100{WBC} 0-0.5 [facility] Platelet mean volume Auto (B ld) [Entitic vol]Ordered By: Hanane Rondon on 10-23-2023 Platelet mean volume (Bld) [Entitic vol] 8.2 fL 6.3-10.7 [facility] Platelets Auto (Bld) [#/Vol] Ordered By: Hanane Rondon on 10-23-2023 Platelets (Bld) [#/Vol] 386 10*3/uL 150-450 [facility] Potassium [Moles/volume] in Serum or PlasmaOrdered By: Hanane Rondon on 10-23-2023 Potassium [Moles/Vol] 3.3 mmol/L 3.5-5.1 [facility] Protein Auto test strip (U) [Mass/Vol]Ordered By: Hanane Rondon on 10-23-2023 Protein (U) [Mass/Vol] Trace mg/dL Negative [facility] Protein [Mass/volume] in Ser um or PlasmaOrdered By: Hanane Rondon on 10-23-2023 Protein [Mass/Vol] 7.0 g/dL 6.4-8.9 [facility] RBC Auto (Bld) [#/Vol]Ordere d By: Hanane Rondon on 10-23-2023 RBC (Bld) [#/Vol] 4.07 10*6/uL 3.60-5.00 [facility] Serum or plasma albumin/glob ulin mass ratioOrdered By: Hanane Rondon on 10-23-2023 Albumin/Globulin [Mass ratio] 1.2 {ratio} [facility] Serum or plasma anion gap de terminationOrdered By: Hanane Rondon on 10-23-2023 Anion gap [Moles/Vol] 13.2 mmol/L 6.0-15.0 [facility] Sodium [Moles/volume] in Ser um or PlasmaOrdered By: Hanane Rondon on 10-23-2023 Sodium [Moles/Vol] 137 mmol/L 136-145 [facility] Specific gravity Auto test s trip (U) [Rel density]Ordered By: Hanane Rondon on 10-23-2023 Specific gravity (U) [Rel density] 1.036 1.001-1.03 0 [facility] Squamous epithelial cells de tection in urine sediment by light microscopyOrdered By: Hanane Rondon on 10-23-2023 Epithelial cells.squamous LM Ql (Urine sed) 10-19 [HPF] 0-2 [facility] Urea nitrogen [Mass/volume] in Serum or PlasmaOrdered By: Hanane Rondon on 10-23-2023 Urea nitrogen [Mass/Vol] 10 mg/dL 7-25 [facility] Urine bacteria detection by automated methodOrdered By: Hanane Rondon on 10-23-2023 Bacteria Auto Ql (U) 1+ None Seen [facility] Urine clarity by refractomet ry automatedOrdered By: Hanane Rondon on 10-23-2023 Clarity Refractometry automated (U) Cloudy Clear [facility] Urine glucose measurement by automated test strip (mass/volume)Ordered By: Hanane Rondon on 10-23-2023 Glucose Auto test strip (U) [Mass/Vol] >=1000 mg/dL Normal [facility] Urine hemoglobin detection b y automated test stripOrdered By: Hanane Rondon on 10-23-2023 Hemoglobin Auto test strip Ql (U) Trace Negative [facility] Urine leukocyte esterase det ection by automated test stripOrdered By: Hanane Rondon on 10-23-2023 Leukocyte esterase Auto test strip Ql (U) Negative Negative [facility] Urobilinogen Auto test strip (U) [Mass/Vol]Ordered By: Hanane Rondon on 10-23-2023 Urobilinogen (U) [Mass/Vol] Normal mg/dL Normal [facility] WBC Auto (Bld) [#/Vol]Ordere d By: Hanane Rondon on 10-23-2023 WBC (Bld) [#/Vol] 9.5 10*3/uL 3.8-11.6 [facility] pH Auto test strip (U)Ordere d By: Hanane Rondon on 10-23-2023 pH (U) 5.5 [pH] 5.0-9.0 [facility] CBC AUTO DIFFon 03-25-2023 BASO # 0.0 103/ul Normal 0.0-0.[address] [facility] Comment on above: Performed By: #### P T, PTT #### [facility] [address] [address] [address] Tati Reilly Basophils/100 WBC (Bld) 0.4 % Normal 0.2-2.0 [facility] Comment on above: Performed By: #### P T, PTT #### [facility] [address] [address] [address] Tati Reilly EO # 0.1 103/ul Normal 0.0-0.[address] [facility] Comment on above: Performed By: #### P T, PTT #### [facility] [address] [place] [address] Dr. Tati Reilly Eosinophils/100 WBC (Bld) 1.5 % Normal 0.9-7.[address] [facility] Comment on above: Performed By: #### P T, PTT #### [facility] [address] [place] [address] Dr. Tati Reilly Erythrocyte distribution width (RBC) [Ratio] 14.4 % Normal 11.0-15.[address] [facility] Comment on above: Performed By: #### P T, PTT #### [facility] [address] [place] [address] Dr. Tati Reilly Hematocrit (Bld) [Volume fraction] 38.9 % Normal 36.0-48.[address] [facility] Comment on above: Performed By: #### P T, PTT #### [facility] [address] [place] [address] Dr. Tati Reilly Hemoglobin (Bld) [Mass/Vol] 12.9 g/dL Normal 12.0-16.[address] [facility] Comment on above: Performed By: #### P T, PTT #### [facility] [address] [place] [address] Dr. Tati Reilly IG # 0.03 10e3/ul Normal 0.00-0.[address] [facility] Comment on above: Performed By: #### P T, PTT #### [facility] [address] [place] [address] Dr. Tati Reilly IG % 0.3 % Normal 0.0-0.5 [facility] Comment on above: Performed By: #### P T, PTT #### [facility] [address] [place] [address] Dr. Tati Reilly LYMPH # 4.3 103/ul Critically high 1.2-3.[address] [facility] Comment on above: Performed By: #### P T, PTT #### [facility] [address] [place] [address] Dr. Tati Reilly Lymphocytes/100 WBC (Bld) 45.7 % Normal 20.5-60.[address] [facility] Comment on above: Performed By: #### P T, PTT #### [facility] [address] [place] [address] Dr. Tati Reilly MANUAL DIFF REQ NO Normal [facility] Comment on above: Performed By: #### P T, PTT #### [facility] [address] [place] [address] Dr. Tati Reilly MCH (RBC) [Entitic mass] 28.9 pg Normal 26.7-34.[address] [facility] Comment on above: Performed By: #### P T, PTT #### [facility] [address] [place] [address] Dr. Tati Reilly MCHC (RBC) [Mass/Vol] 33.2 g/dL Normal 29.9-35.[address] [facility] Comment on above: Performed By: #### P T, PTT #### [facility] [address] [place] [address] Dr. Tati Reilly MCV (RBC) [Entitic vol] 87.0 fL Normal 81.0-99.[address] [facility] Comment on above: Performed By: #### P T, PTT #### [facility] [address] [place] [address] Dr. Ttai Reilly MONO # 0.4 103/ul Normal 0.3-0.[address] [facility] Comment on above: Performed By: #### P T, PTT #### [facility] [address] [place] [address] Dr. Tati Reilly Monocytes/100 WBC (Bld) 4.6 % Normal 1.7-12.[address] [facility] Comment on above: Performed By: #### P T, PTT #### [facility] [address] [place] [address] Dr. Tati Reilly NEUT # 4.5 103/ul Normal 1.4-6.[address] [facility] Comment on above: Performed By: #### P T, PTT #### [facility] [address] [place] [address] Dr. Tati Reilly Neutrophils/100 WBC (Bld) 47.5 % Normal 43.0-75.[address] [facility] Comment on above: Performed By: #### P T, PTT #### [facility] [address] [address] [address] Tati Reilyl Platelet mean volume (Bld) [Entitic vol] 9.8 fL Normal 9.5-13.[address] [facility] Comment on above: Performed By: #### P T, PTT #### [facility] [address] [address] [address] Tati Reilly PLT 405 103/ul Normal 150-450 [facility] Comment on above: Performed By: #### P T, PTT #### [facility] [address] [address] [address] Tati Reilly RBC 4.47 106/ul Normal 4.20-5.[address] [facility] Comment on above: Performed By: #### P T, PTT #### [facility] [address] [place] [address] Dr. Tati Reilly WBC 9.4 103/ul Normal 4.0-11.[address] [facility] Comment on above: Performed By: #### P T, PTT #### [facility] [address] [address] [address] Tati Reilly GLYCOHEMOGLOBIN A1Con 2022 ADA RECOMMENDATION SEE BELOW Normal [facility] Comment on above: Result Comment: ADA RECOMMENDED LIMIT 4.0 - 6.0 ADA THERAPEUTIC TARGET < 7.0 ACTION SUGGESTED > 7.0 Performed By: #### A 1C #### [facility] [address] [address] [address] Tati Reilly Glucose [Mass/Vol] 177 mg/dL Normal [facility] Comment on above: Performed By: #### A 1C #### [facility] [address] [address] [address] Tati Reilly HbA1c (Bld) [Mass fraction] 7.8 % Critically high 4.5-6.[address] [facility] Comment on above: Performed By: #### A 1C #### [facility] [address] [place] [address] Dr. Tati Reilly LIPID PROFILEon 03-25-2023 CHOL-HDL RATIO NORM SEE BELOW Normal [facility] Comment on above: Result Comment: 3.3 - 4.4 LOW RISK 4.4 - 7.1 AVERAGE RISK 7.1 - 11.0 MODERATE RISK >11.0 HIGH RISK Performed By: #### L IPID, CMP #### [facility] [address] [address] [address] Tati Reilly Cholesterol [Mass/Vol] 188 mg/dL Normal <=200 [facility] Comment on above: Performed By: #### L IPID, CMP #### [facility] [address] [address] [address] Tati Reilly Cholesterol in HDL [Mass/Vol] 33 mg/dL Critically low 40-[address] [facility] Comment on above: Performed By: #### L IPID, CMP #### [facility] [address] [place] [address] Dr. Tati Reilly Cholesterol in LDL [Mass/Vol] 140.4 mg/dL Normal [facility] Comment on above: Performed By: #### L IPID, CMP #### [facility] [address] [address] [address] Tati Reilly Cholesterol.total/Cho lesterol in HDL [Mass ratio] 5.7 {ratio} Normal [facility] Comment on above: Performed By: #### L IPID, CMP #### [facility] [address] [place] [address] Dr. Tati Reilly HDL NORMAL > or = 60 mg/dl - LO W CARDIOVASCULAR RISK <40 mg/dl - HIGH CARDIOVASCULAR RISK Normal [facility] Comment on above: Performed By: #### L IPID, CMP #### [facility] [address] [address] [address] Tati Reilly LDL CALC NORMAL SEE BELOW Normal [facility] Comment on above: Result Comment: <100 mg/dl OPTIMAL 100 - 129 mg/dl NEAR OR ABOVE OPTIMAL 130 - 159 mg/dl BORDERLINE HIGH 160 - 189 mg/dl HIGH >190 mg/dl VERY HIGH Performed By: #### L IPID, CMP #### [facility] [address] [address] [address] Tati Reilly Triglyceride [Mass/Vol] 73 mg/dL Normal <=150 [facility] Comment on above: Performed By: #### L IPID, CMP #### [facility] [address] [place] [address] Dr. Tati Reilly VLDL CALC 14.6 mg/dL Normal [facility] Comment on above: Performed By: #### L IPID, CMP #### [facility] [address] [place] [address] Dr. Tati Reilly LIVER PROFILEon 03-25-2023 ALP [Catalytic activity/Vol] 79 U/L Normal 46-[address] [facility] Comment on above: Performed By: #### L IVER #### [facility] [address] [place] [address] Dr. Tati Reilly ALT [Catalytic activity/Vol] 26 U/L Normal 14-[address] [facility] Comment on above: Performed By: #### L IVER #### [facility] [address] [place] [address] Dr. Tati Reilly AST [Catalytic activity/Vol] 12 U/L Critically low 15-[address] [facility] Comment on above: Performed By: #### L IVER #### [facility] [address] [place] [address] Dr. Tati Reilly BILI, CONJUGATED 0.1 mg/dL Normal 0.0-0.[address] [facility] Comment on above: Performed By: #### L IVER #### [facility] [address] [place] [address] Dr. Tati Reilly Bilirubin [Mass/Vol] 0.2 mg/dL Normal 0.2-1.[address] [facility] Comment on above: Performed By: #### L IVER #### [facility] [address] [place] [address] Dr. Tati Reilly PROF 14(COMP METB)on 023 Albumin [Mass/Vol] 3.5 g/dL Normal 3.4-5.[address] [facility] Comment on above: Performed By: #### L IPID, CMP #### [facility] [address] [place] [address] Dr. Tati Reilly Performed By: #### L IVER #### [facility] [address] [address] [address] Tati Reilly Albumin/Globulin [Mass ratio] 0.7 {ratio} Normal [facility] Comment on above: Performed By: #### L IPID, CMP #### [facility] [address] [place] [address] Dr. Tati Reilly Performed By: #### L IVER #### [facility] [address] [place] [address] Dr. Tati Reilly ALP [Catalytic activity/Vol] 77 U/L Normal 46-[address] [facility] Comment on above: Performed By: #### L IPID, CMP #### [facility] [address] [place] [address] Dr. Tati Reilly ALT [Catalytic activity/Vol] 27 U/L Normal 14-[address] [facility] Comment on above: Performed By: #### L IPID, CMP #### [facility] [address] [place] [address] Dr. Tati Reilly Anion gap [Moles/Vol] 12.6 mmol/L Normal [facility] Comment on above: Performed By: #### L IPID, CMP #### [facility] [address] [place] [address] Dr. Tati Reilly AST [Catalytic activity/Vol] 11 U/L Critically low 15-[address] [facility] Comment on above: Performed By: #### L IPID, CMP #### [facility] [address] [place] [address] Dr. Tati Reilly Bilirubin [Mass/Vol] 0.1 mg/dL Critically low 0.2-1.[address] [facility] Comment on above: Performed By: #### L IPID, CMP #### [facility] [address] [place] [address] Dr. Tati Reilly Calcium [Mass/Vol] 9.3 mg/dL Normal 8.5-10.[address] [facility] Comment on above: Performed By: #### L IPID, CMP #### [facility] [address] [address] [address] Tati Reilly Chloride [Moles/Vol] 105 mmol/L Normal 98-[address] [facility] Comment on above: Performed By: #### L IPID, CMP #### [facility] [address] [place] [address] Dr. Tati Reilly CO2 [Moles/Vol] 22.3 mmol/L Normal 21.0-32.[address] [facility] Comment on above: Performed By: #### L IPID, CMP #### [facility] [address] [address] [address] Tati Reilly Creatinine [Mass/Vol] 0.58 mg/dL Normal 0.55-1.[address] [facility] Comment on above: Performed By: #### L IPID, CMP #### [facility] [address] [place] [address] Dr. Tati Reilly EGFR-AF SWEDISH >60 Normal >=[address] [facility] Comment on above: Performed By: #### L IPID, CMP #### [facility] [address] [place] [address] Dr. Tati Reilly EGFR-NON AF SWEDISH >60 Normal >=[address] [facility] Comment on above: Performed By: #### L IPID, CMP #### [facility] [address] [place] [address] Dr. Tati Reilly Globulin (S) [Mass/Vol] 4.8 g/dL Normal [facility] Comment on above: Performed By: #### L IPID, CMP #### [facility] [address] [place] [address] Dr. Tati Reilly Performed By: #### L IVER #### [facility] [address] [address] [address] Tati Reilly Glucose [Mass/Vol] 142 mg/dL Critically high 74-106 [facility] Comment on above: Performed By: #### L IPID, CMP #### [facility] [address] [place] [address] Dr. Tati Reilly Potassium [Moles/Vol] 3.9 mmol/L Normal 3.5-5.[address] [facility] Comment on above: Performed By: #### L IPID, CMP #### [facility] [address] [place] [address] Dr. Tati Reilly Protein [Mass/Vol] 8.3 g/dL Critically high 6.4-8.2 [facility] Comment on above: Performed By: #### L IPID, CMP #### [facility] [address] [place] [address] Dr. Tati Reilly Performed By: #### L IVER #### [facility] [address] [place] [address] Dr. Tati Reilly Sodium [Moles/Vol] 136 mmol/L Normal 136-[address] [facility] Comment on above: Performed By: #### L IPID, CMP #### [facility] [address] [place] [address] Dr. Tati Reilly Urea nitrogen [Mass/Vol] 10.0 mg/dL Normal 7.0-18.[address] [facility] Comment on above: Performed By: #### L IPID, CMP #### [facility] [address] [place] [address] Dr. Tati Reilly Urea nitrogen/Creatinine [Mass ratio] 17.2 mg/mg Normal [facility] Comment on above: Performed By: #### L IPID, CMP #### [facility] [address] [place] [address] Dr. Tati Reilly PROTIMEon 03-25-2023 INR Coag (PPP) [Relative time] {INR} Normal [facility] Comment on above: Performed By: #### P T, PTT #### [facility] [address] [place] [address] Dr. Ttai Reilly INR GUIDELINES SEE BELOW Normal [facility] Comment on above: Result Comment: KRISHNA RED INR: 2.0 - 3.0 CONDITIONS NOT LISTED BELOW 2.5 - 3.5 FOR PROSTHETIC HEART VALVE REPLACEMENT 2.5 - 3.5 RECURRENT THROMBOSIS Performed By: #### P T, PTT #### [facility] [address] [place] [address] Dr. Tati Reilly PT Coag (PPP) [Time] 9.8 s Normal 9.0-11.[address] [facility] Comment on above: Performed By: #### P T, PTT #### [facility] [address] [place], [place] [address] Dr. Tati Reilly PTTon 03-25-2023 aPTT Coag (Bld) [Time] 31.0 s Normal 22.3-36.[address] [facility] Comment on above: Performed By: #### P T, PTT #### [facility] [address] [place], [place] [address] Dr. Tati Reilly [facility] CARDIAC STRESS/REST INJE CTIONon 03-01-2023 [facility] CARDIAC STRESS/REST INJECTION Patient Name: GARY VIGIL STUDY: MYOCARDIAL PERFUSION STRESS TEST WITH EXERCISE Performing facility: [facility], [address] [place] [address], [address], [address] Provider: Krystal Koehler MD, FACC PCP: Dr. Alfonso MARQUES Supervising provider: Joe Meek MD INDICATION: R94.31: Abnormal EKG R07.89: Chest discomfort R06.02: Shortness of breath on exertion Pre-operative risk assessment for Hysterectomy scheduled at [facility] on 04/12/23. HISTORY: Gender: F; Age: 37 y/o ; Height: 0 cm; Weight: 0 kg. High Cholesterol; Diabetes; Family HX CAD; Abnormal EKG; Chest Pain; SOB; Edema, Asthma Currently smoking. COMPARISON: No comparison. ACCESSION NUMBER(S): [id number]; [id number]; [id number] ORDERING CLINICIAN: KRYSTAL KOEHLER TECHNIQUE: TWO DAY [...] of the Flash protocol.. Electronically signed by: JOE MEEK MD Normal [facility] No Panel Informationon 03-01 Normal [address] [address] DO Work Phone: Echocardiogramon 02-21-[address], [address] [place] [address] TRANSTHORACIC ECHOCARDIOGRAM REPORT Patient Name: GARY Nix [id number] Jonah Rodriguez MD Physician: Study Date: 02/21/2023 Referring KRYSTAL KOEHLER Physician: MRN/PID: [id number] PCP: Shay hadley Accession/Order#: [id number] [facility] Location: Date of : 1985 Fellow: Gender: F Nurse: Wendy Brown RN Admit Date: Pier Master: Smita Rincon RDCS, T Height: 167.64 cm CC Report to: Rigoberto Morenoo Weight: 104.33 kg Study Type: Echocardiogram BSA: 2.12 m2 Diagnosis/ICD: R07.89-Other chest pain; R94.31-Abnormal electrocardiogram [ECG] [EKG] Indication: Diabetes, Edema, HTN, POC-Hysterectomy with Dr. Erika Montano 04/03/2023, Tobacco Abuse, Bipolar Disorder, [place], Morbid Obesity, Hypokalemia, Anemia, Shortness of Breath Procedure/CPT: Echo Complete w Full [id number] Study Detail: The following Echo studies were [...] 0.8 m/s (0.6-0.9m/s) PV Max P.7 mmHg [id number] Jonah Rodriguez MD Electronically signed on 02/24/2023 at 2:03:49 PM Final Normal [facility] Calcium [Mass/volume] in Ser um or PlasmaOrdered By: Krystal Koehler on 02-18-2023 Calcium [Mass/Vol] 10.0 mg/dL 8.6-10.3 [facility] Carbon dioxide, total [Moles /volume] in Serum or PlasmaOrdered By: Krystal Koehler on 02-18-2023 CO2 [Moles/Vol] 23.9 mmol/L 21.0-31.0 [facility] Chloride [Moles/volume] in S dave or PlasmaOrdered By: Krystal Koehler on 02-18-2023 Chloride [Moles/Vol] 103 mmol/L 98-107 [facility] Creatinine [Mass/volume] in Serum or PlasmaOrdered By: Krystal Koehler on 02-18-2023 Creatinine [Mass/Vol] 0.63 mg/dL 0.60-1.20 [facility] Glucose [Mass/volume] in Ser um or PlasmaOrdered By: Krystal Koehler on 02-18-2023 Glucose [Mass/Vol] 155 mg/dL 70-100 [facility] Comment on above: ADA recommended refe rence rangeRandom Glucose Reference Range is dependent on time and content of last meal. Glucose of more than 200 mg/dL in a nonstressed, ambulatory subject supports the diagnosis of Diabetes Mellitus. Laboratory - Chemistry and C hemistry - challengeOrdered By: Krystal Koehler on 02-18-2023 GFR/1.73 sq M.predicted MDRD (S/P/Bld) [Vol rate/Area] mL/min/{1.73_m2} [facility] No Panel InformationOrdered By: Krystal Koehler on 02-18-2023 Pharmacy Creatinine Clearance (Chem N/A [facility] No Panel Informationon 02-18 > 60.0 Normal [facility] [place] [address] DO Work Phone: 14.2\S\14.2 Normal 6.0-15.0 [facility] 250 DO Work Phone: 10.0\S\10.0 Normal 8.6-10.3 [facility] [place] 250 DO Work Phone: Comment on above: PERFORMED BY:[address] [address] [address] [place], [place] [id number] MEDICAL DIRECTORANGELA NORTON M.D. 23.9\S\23.9 Normal 21.0-31.0 -[facility] [place] 250 DO Work Phone: 103\S\103 Normal 98-107 -[facility] [place] 250 DO Work Phone: 4.1\S\4.1 Normal 3.5-5.1 -[facility] ve[place] 250 DO Work Phone: 137\S\137 Normal 136-145 [facility] garibay 250 DO Work Phone: 0.63\S\0.63 Normal 0.60-1.20 [facility] [place] 250 DO Work Phone: 13\S\13 Normal 7-25 -[facility] [place] 250 DO Work Phone: 155\S\155 above high threshold 70-100 [facility] [place] 250 DO Work Phone: Comment on above: Random Glucose Refer ence Range is dependent on time and content of last meal. Glucose of more than 200 mg/dL in a nonstressed, ambulatory subject supports the diagnosis of Diabetes Mellitus. ADA recommended reference range Potassium [Moles/volume] in Serum or PlasmaOrdered By: Krystal Koehler on 02-18-2023 Potassium [Moles/Vol] 4.1 mmol/L 3.5-5.1 [facility] Serum or plasma anion gap de terminationOrdered By: Krystal Koehler on 02-18-2023 Anion gap [Moles/Vol] 14.2 mmol/L 6.0-15.0 [facility] Sodium [Moles/volume] in Ser um or PlasmaOrdered By: Krystal Koehler on 02-18-2023 Sodium [Moles/Vol] 137 mmol/L 136-145 [facility] Urea nitrogen [Mass/volume] in Serum or PlasmaOrdered By: Krystal Koehler on 02-18-2023 Urea nitrogen [Mass/Vol] 13 mg/dL 7-25 [facility] Office Visit (Cardiology)on 02-11-2023 Follow-up visit [...] You need to quit smoking.; Status:Complete; Done: [id number] Tobacco Use Screening; Status:Complete; Done: [id number] You need to stop smoking. Though it is not easy, more than half of all adult smokers have quit. We encourage you to write down all the reasons you should quit smoking and set a quit date for yourself. Ask us how we can help. You may also call 4-800-UOET-NOW for free resources and assistance.; Status:Complete; Done: [id number] Patient Instructions Please bring all medicines, vitamins, [...] abnormalities, perfusion (more content not included)... Normal [facility] Tobacco Screening.on 023 Adult depression screening assessment No [facility] [employer] 250 DO Work Phone: Fall risk assessment c) Not medically indicated [facility] [employer] 250 DO Work Phone: Tobacco use status [facility] b) No [facility] [place] 250 DO Work Phone: Activated partial thrombopla stin time (aPTT) in platelet poor plasma by coagulation aOrdered By: Aron Trevino on 01-13-2023 aPTT Coag (PPP) [Time] 34.2 s 25.1-36.5 [facility] Basophils Auto (Bld) [#/Vol] Ordered By: Aron Trevino on 01-13-2023 Basophils (Bld) [#/Vol] 0.1 10*3/uL 0.0-0.2 [facility] Basophils/100 WBC Auto (Bld) Ordered By: Aron Trevino on 01-13-2023 Basophils/100 WBC (Bld) 0.8 % . [facility] Creatine kinase.MB [Mass/vol ume] in Serum or PlasmaOrdered By: Aron Trevino on 01-13-2023 CK.MB [Mass/Vol] 1.3 ng/mL 0.6-6.3 [facility] Creatinine and Glomerular fi ltration rate.predicted panel (S/P/Bld)Ordered By: Aron Trevino on 01-13-2023 Creatinine [Mass/Vol] 0.66 mg/dL 0.44-1.03 [facility] Eosinophils Auto (Bld) [#/Vo l]Ordered By: Aron Trevino on 01-13-2023 Eosinophils (Bld) [#/Vol] 0.2 10*3/uL 0.0-0.45 [facility] Eosinophils/100 WBC Auto (Bl d)Ordered By: Aron Trevino on 01-13-2023 Eosinophils/100 WBC (Bld) 1.6 % . [facility] Erythrocyte distribution wid th Auto (RBC) [Ratio]Ordered By: Aron Trevino on 01-13-2023 Erythrocyte distribution width (RBC) [Ratio] 15.8 % 11.9-15.3 [facility] Estimated glomerular filtrat ion rate (GFR) non- AmericanOrdered By: Aron Trevino on 01-13-2023 GFR/1.73 sq M.predicted among non-blacks MDRD (S/P/Bld) [Vol rate/Area] > 60 mL/Min [facility] Hematocrit Auto (Bld) [Volum e fraction]Ordered By: Aron Trevino on 01-13-2023 Hematocrit (Bld) [Volume fraction] 34.3 % 34.0-46.4 [facility] Hemoglobin [Mass/volume] in BloodOrdered By: Aron Trevino on 01-13-2023 Hemoglobin (Bld) [Mass/Vol] 11.2 g/dL 11.8-15.4 [facility] - Chemistry and C hemistry - challengeOrdered By: Aron Trevino on 01-13-2023 Natriuretic peptide B (Bld) [Mass/Vol] 22.0 pg/mL 5-100 [facility] - CoagulationOrde red By: Aron Trevino on 01-13-2023 PT Coag (PPP) [Time] 11.4 s 9.0-12.9 [facility] Leukocytes [#/volume] correc diego for nucleated erythrocytes in Blood by Automated counOrdered By: Aron Trevino on 01-13-2023 WBC corrected for nucl RBC Auto (Bld) [#/Vol] 12.4 10*3/uL 3.8-11.6 [facility] Lymphocytes Auto (Bld) [#/Vo l]Ordered By: Aron Trevino on 01-13-2023 Lymphocytes (Bld) [#/Vol] 5.1 10*3/uL 1.00-4.8 [facility] Lymphocytes/100 WBC Auto (Bl d)Ordered By: Aron Trevino on 01-13-2023 Lymphocytes/100 WBC (Bld) 41.4 % . [facility] MCH Auto (RBC) [Entitic mass ]Ordered By: Aron Trevino on 01-13-2023 MCH (RBC) [Entitic mass] 29.0 pg 24.7-34.3 [facility] MCHC Auto (RBC) [Mass/Vol]Or dered By: Aron Trevino on 01-13-2023 MCHC (RBC) [Mass/Vol] 32.7 g/dL 32.0-35.0 [facility] MCV Auto (RBC) [Entitic vol] Ordered By: Aron Trevino on 01-13-2023 MCV (RBC) [Entitic vol] 88.5 fL 80-100 [facility] Monocyte distribution width [Entitic volume] in Blood by AutomatedOrdered By: Aron Trevino on 01-13-2023 Monocyte distribution width Auto (Bld) [Entitic vol] 18.05 % 0.00-20.00 [facility] Monocytes Auto (Bld) [#/Vol] Ordered By: Aron Trevino on 01-13-2023 Monocytes (Bld) [#/Vol] 0.6 10*3/uL 0.0-0.8 [facility] Monocytes/100 WBC Auto (Bld) Ordered By: Aron Trevino on 01-13-2023 Monocytes/100 WBC (Bld) 5.2 % . [facility] Neutrophils Auto (Bld) [#/Vo l]Ordered By: Aron Trevino on 01-13-2023 Neutrophils (Bld) [#/Vol] 6.3 10*3/uL 1.8-7.7 [facility] Neutrophils/100 WBC Auto (Bl d)Ordered By: Aron Trevino on 01-13-2023 Neutrophils/100 WBC (Bld) 51.0 % . [facility] No Panel InformationOrdered By: Aron Trevino on 01-13-2023 D-Dimer Quantitative (PE/DVT) < 200 ng/mL 0-243 [facility] Comment on above: The reference range [...] conditions. Estimated GFR () > 60 mL/Min [facility] Comment on above: GFR estimated refere nce range: According to KDOQI guidelines, <60 ml/min/1.73m2 is sufficient to diagnose a patient with chronic kidney disease. Pharmacy Creatinine Clearance (Chem 137.66 [facility] Nucleated erythrocytes [Pres ence] in Blood by Automated countOrdered By: Aron Trevino on 01-13-2023 Nucleated RBC Auto Ql (Bld) 0.1 /100{WBC} 0-0.5 [facility] Platelet mean volume Auto (B ld) [Entitic vol]Ordered By: Aron Trevino on 01-13-2023 Platelet mean volume (Bld) [Entitic vol] 7.4 fL 6.3-10.7 [facility] Platelet poor plasma interna tional normalized ratio (INR) by coagulation assay (relatOrdered By: Aron Trevino on 01-13-2023 INR Coag (PPP) [Relative time] 1.0 {INR} [facility] Comment on above: INR Therapeutic Rang [...] 01-13-2023 Platelets (Bld) [#/Vol] 380 10*3/uL 150-450 [facility] RBC Auto (Bld) [#/Vol]Ordere d By: Aron Trevino on 01-13-2023 RBC (Bld) [#/Vol] 3.88 10*6/uL 3.60-5.00 [facility] Serum or plasma anion gap de terminationOrdered By: Aron Trevino on 01-13-2023 Anion gap [Moles/Vol] 11.4 mmol/L 6.0-15.0 [facility] Serum or plasma calcium buzz urement (mass/volume)Ordered By: Aron Trevino on 01-13-2023 Calcium [Mass/Vol] 8.7 mg/dL 8.2-10.2 [facility] Serum or plasma chloride celestino surement (moles/volume)Ordered By: Aron Trevino on 01-13-2023 Chloride [Moles/Vol] 104 mmol/L 95-114 [facility] Serum or plasma creatine kin ase MB (CKMB)/total creatine kinase (CK) ratio by calculaOrdered By: Aron Trevino on 01-13-2023 CK.MB Calc [Catalytic fraction] TNP [facility] Comment on above: Test not performed Serum or plasma glucose buzz urement (mass/volume)Ordered By: Aron Trevino on 01-13-2023 Glucose [Mass/Vol] 222 mg/dL 70-100 [facility] Comment on above: ADA recommended refe rence rangeRandom Glucose Reference Range is dependent on time and content of last meal. Glucose of more than 200 mg/dL in a nonstressed, ambulatory subject supports the diagnosis of Diabetes Mellitus. Serum or plasma potassium me asurement (moles/volume)Ordered By: Aron Trevino on 01-13-2023 Potassium [Moles/Vol] 3.0 mmol/L 3.5-5.1 [facility] Serum or plasma sodium measu rement (moles/volume)Ordered By: Aron Trevino on 01-13-2023 Sodium [Moles/Vol] 134 mmol/L 136-146 [facility] Serum or plasma total carbon dioxide measurement (moles/volume)Ordered By: Aron Trevino on 01-13-2023 CO2 [Moles/Vol] 21.6 mmol/L 22.0-30.0 [facility] Serum or plasma urea nitroge n measurement (mass/volume)Ordered By: Aron Trevino on 01-13-2023 Urea nitrogen [Mass/Vol] 5 mg/dL 9- [facility] Troponin I.cardiac [Mass/vol ume] in Serum or Plasma by High sensitivity methodOrdered By: Aron Trevino on 01-13-2023 Troponin I.cardiac High sensitivity method [Mass/Vol] < 3 pg/mL 0-15 [facility] WBC Auto (Bld) [#/Vol]Ordere d By: Aron Trevino on 01-13-2023 WBC (Bld) [#/Vol] 12.4 10*3/uL 3.8-11.6 [facility] CBC AUTO DIFFon 12-28-2022 BASO # 0.0 103/ul Normal 0.0-0.[address] [facility] Comment on above: Performed By: #### P T, PTT #### [facility] [address] [address] [address] Tati Reilly Basophils/100 WBC (Bld) 0.3 % Normal 0.2-2.0 [facility] Comment on above: Performed By: #### P T, PTT #### [facility] [address] [address] [address] Tati Reilly EO # 0.1 103/ul Normal 0.0-0.7 [facility] Comment on above: Performed By: #### P T, PTT #### [facility] [address] [address] [address] Tati Reilly Eosinophils/100 WBC (Bld) 1.9 % Normal 0.9-7.[address] [facility] Comment on above: Performed By: #### P T, PTT #### [facility] [address] [place] [address] Dr. Tati Reilly Erythrocyte distribution width (RBC) [Ratio] 14.3 % Normal 11.0-15.[address] [facility] Comment on above: Performed By: #### P T, PTT #### [facility] [address] [place] [address] Dr. Tati Reilly Hematocrit (Bld) [Volume fraction] 32.8 % Critically low 36.0-48.[address] [facility] Comment on above: Performed By: #### P T, PTT #### [facility] [address] [place] [address] Dr. Tati Reilly Hemoglobin (Bld) [Mass/Vol] 12.1 g/dL Normal 12.0-16.[address] [facility] Comment on above: Performed By: #### P T, PTT #### [facility] [address] [place] [address] Dr. Tati Reilly IG # 0.01 10e3/ul Normal 0.00-0.[address] [facility] Comment on above: Performed By: #### P T, PTT #### [facility] [address] [place] [address] Dr. Tati Reilly IG % 0.1 % Normal 0.0-0.[address] [facility] Comment on above: Performed By: #### P T, PTT #### [facility] [address] [place] [address] Dr. Tati Reilly LYMPH # 2.7 103/ul Normal 1.2-3.8 [facility] Comment on above: Performed By: #### P T, PTT #### [facility] [address] [place] [address] Dr. Tati Reilly Lymphocytes/100 WBC (Bld) 39.6 % Normal 20.5-60.[address] [facility] Comment on above: Performed By: #### P T, PTT #### [facility] [address] [place] [address] Dr. Tati Reilly MANUAL DIFF REQ NO Normal [facility] Comment on above: Performed By: #### P T, PTT #### [facility] [address] [place] [address] Dr. Tati Reilly MCH (RBC) [Entitic mass] 29.4 pg Normal 26.7-34.[address] [facility] Comment on above: Performed By: #### P T, PTT #### [facility] [address] [place] [address] Dr. Tati Reilly MCHC (RBC) [Mass/Vol] 36.9 g/dL Critically high 29.9-35.[address] [facility] Comment on above: Performed By: #### P T, PTT #### [facility] [address] [place] [address] Dr. Tati Reilly MCV (RBC) [Entitic vol] 79.6 fL Critically low 81.0-99.[address] [facility] Comment on above: Performed By: #### P T, PTT #### [facility] [address] [place] [address] Dr. Tati Reilly MONO # 0.3 103/ul Normal 0.3-0.8 [facility] Comment on above: Performed By: #### P T, PTT #### [facility] [address] [place] [address] Dr. Tati Reilly Monocytes/100 WBC (Bld) 4.6 % Normal 1.7-12.[address] [facility] Comment on above: Performed By: #### P T, PTT #### [facility] [address] [place] [address] Dr. Tati Reilly NEUT # 3.6 103/ul Normal 1.4-6.5 [facility] Comment on above: Performed By: #### P T, PTT #### [facility] [address] [place] [address] Dr. Tati Reilly Neutrophils/100 WBC (Bld) 53.5 % Normal 43.0-75.0 [facility] Comment on above: Performed By: #### P T, PTT #### [facility] [address] [place] [address] Dr. Tati Reilly Platelet mean volume (Bld) [Entitic vol] 8.8 fL Critically low 9.5-13.[address] [facility] Comment on above: Performed By: #### P T, PTT #### [facility] [address] [place] [address] Dr. Tati Reilly PLT 357 103/ul Normal 150-450 [facility] Comment on above: Performed By: #### P T, PTT #### [facility] [address] [place] [address] Dr. Tati Reilly RBC 4.12 106/ul Critically low 4.20-5.40 [facility] Comment on above: Performed By: #### P T, PTT #### [facility] [address] [place] [address] Dr. Tati Reilly WBC 6.7 103/ul Normal 4.0-11.[address] [facility] Comment on above: Performed By: #### P T, PTT #### [facility] [address] [place] [address] Dr. Tati Reilly LIVER PROFILEon 12-28-2022 Albumin [Mass/Vol] 3.5 g/dL Normal 3.4-5.[address] [facility] Comment on above: Performed By: #### L IVMANDIE, BMP #### [facility] [address] [place] [address] Dr. Tati Reilly Albumin/Globulin [Mass ratio] 0.9 {ratio} Normal [facility] Comment on above: Performed By: #### L IVMANDIE, BMP #### [facility] [address] [place] [address] Dr. Tati Reilly ALP [Catalytic activity/Vol] 77 U/L Normal 46-116 [facility] Comment on above: Performed By: #### L IVMANDIE, BMP #### [facility] [address] [place] [address] Dr. Tati Reilly ALT [Catalytic activity/Vol] 22 U/L Normal 14-59 [facility] Comment on above: Performed By: #### L IVMANDIE, BMP #### [facility] [address] [place] [address] Dr. Tati Reilly AST [Catalytic activity/Vol] 18 U/L Normal 15-[address] [facility] Comment on above: Performed By: #### L IVMANDIE, BMP #### [facility] [address] [place] [address] Dr. Tati Reilly BILI, CONJUGATED 0.1 mg/dL Normal 0.0-0.[address] [facility] Comment on above: Performed By: #### L IVMANDIE, BMP #### [facility] [address] [place] [address] Dr. Tati Reilly Bilirubin [Mass/Vol] 0.2 mg/dL Normal 0.2-1.[address] [facility] Comment on above: Performed By: #### L IVMANDIE, BMP #### [facility] [address] [place] [address] Dr. Tati Reilly Globulin (S) [Mass/Vol] 3.9 g/dL Normal [facility] Comment on above: Performed By: #### L IVMANDIE, BMP #### [facility] [address] [place] [address] Dr. Tati Reilly Protein [Mass/Vol] 7.4 g/dL Normal 6.4-8.[address] [facility] Comment on above: Performed By: #### L KANDY, BMP #### [facility] [address] [place] [address] Dr. Tati Reilly PROF CHEM 8 (BAS METB)on Anion gap [Moles/Vol] 14.4 mmol/L Normal [facility] Comment on above: Performed By: #### L IVMANDIE, BMP #### [facility] [address] [place] [address] Dr. Tati Reilly Calcium [Mass/Vol] 8.8 mg/dL Normal 8.5-10.1 [facility] Comment on above: Performed By: #### L IVMANDIE, BMP #### [facility] [address] [place] [address] Dr. Tati Reilly Chloride [Moles/Vol] 103 mmol/L Normal 98-[address] [facility] Comment on above: Performed By: #### L IVMANDIE, BMP #### [facility] [address] [address] [address] Tati Reilly CO2 [Moles/Vol] 24.6 mmol/L Normal 21.0-32.[address] [facility] Comment on above: Performed By: #### L IVER, BMP #### [facility] [address] [address] [address] Tati Reilly Creatinine [Mass/Vol] 0.61 mg/dL Normal 0.55-1.[address] [facility] Comment on above: Performed By: #### L IVER, BMP #### [facility] [address] [address] [address] Tati Reilly EGFR-AF SWEDISH >60 Normal >=[address] [facility] Comment on above: Performed By: #### L IVER, BMP #### [facility] [address] [place] [address] Dr. Tati Reilly EGFR-NON AF SWEDISH >60 Normal >=[address] [facility] Comment on above: Performed By: #### L IVER, BMP #### [facility] [address] [place] [address] Dr. Tati Reilly Glucose [Mass/Vol] 173 mg/dL Critically high 74-106 [facility] Comment on above: Performed By: #### L IVER, BMP #### [facility] [address] [address] [address] Tati Reilly Potassium [Moles/Vol] 3.0 mmol/L Critically low 3.5-5.[address] [facility] Comment on above: Performed By: #### L IVER, BMP #### [facility] [address] [address] [address] Tati Reilly Sodium [Moles/Vol] 139 mmol/L Normal 136-[address] [facility] Comment on above: Performed By: #### L IVER, BMP #### [facility] [address] [address] [address] Tati Reilly Urea nitrogen [Mass/Vol] 7.0 mg/dL Normal 7.0-18.[address] [facility] Comment on above: Performed By: #### L IVER, BMP #### [facility] [address] [place] [address] Dr. Tati Reilly Urea nitrogen/Creatinine [Mass ratio] 11.5 mg/mg Normal [facility] Comment on above: Performed By: #### Bri GAITAN BMP #### [facility] [address] [place] [address] Dr. Tati Reilly PROTIMEon 12-28-2022 INR Coag (PPP) [Relative time] 0.97 {INR} Normal [facility] Comment on above: Performed By: #### P TT, PT #### [facility] [address] [place] [address] Dr. Tati Reilly INR GUIDELINES SEE BELOW Normal [facility] Comment on above: Result Comment: KRISHNA RED INR: 2.0 - 3.0 CONDITIONS NOT LISTED BELOW 2.5 - 3.5 FOR PROSTHETIC HEART VALVE REPLACEMENT 2.5 - 3.5 RECURRENT THROMBOSIS Performed By: #### P TT, PT #### [facility] [address] [place] [address] Dr. Tati Reilly PT Coag (PPP) [Time] 10.3 s Normal 9.0-11.6 [facility] Comment on above: Performed By: #### P TT, PT #### [facility] [address] [place] [address] Dr. Tati Reilly PTTon 12-28-2022 aPTT Coag (Bld) [Time] 29.1 s Normal 22.3-36.[address] [facility] Comment on above: Performed By: #### P TT, PT #### [facility] [address] [place] [address] Dr. Tati Reilly Activated partial thrombopla stin time (aPTT) in platelet poor plasma by coagulation aOrdered By: Rigoberto Montano on 12-08-2022 aPTT Coag (PPP) [Time] 33.3 s 25.1-36.5 [facility] Basophils Auto (Bld) [#/Vol] Ordered By: Rigoberto Montano on 12-08-2022 Basophils (Bld) [#/Vol] 0.1 10*3/uL 0.0-0.2 [facility] Basophils/100 WBC Auto (Bld) Ordered By: Rigoberto Montano on 12-08-2022 Basophils/100 WBC (Bld) 0.8 % . [facility] Eosinophils Auto (Bld) [#/Vo l]Ordered By: Rigoberto Montano on 12-08-2022 Eosinophils (Bld) [#/Vol] 0.2 10*3/uL 0.0-0.45 [facility] Eosinophils/100 WBC Auto (Bl d)Ordered By: Rigoberto Montano on 12-08-2022 Eosinophils/100 WBC (Bld) 2.4 % . [facility] Erythrocyte distribution wid th Auto (RBC) [Ratio]Ordered By: Rigoberto Montano on 12-08-2022 Erythrocyte distribution width (RBC) [Ratio] 16.1 % 11.9-15.3 [facility] Hematocrit Auto (Bld) [Volum e fraction]Ordered By: Rigoberto Montano on 12-08-2022 Hematocrit (Bld) [Volume fraction] 34.8 % 34.0-46.4 [facility] Hemoglobin [Mass/volume] in BloodOrdered By: Rigoberto Montano on 12-08-2022 Hemoglobin (Bld) [Mass/Vol] 11.5 g/dL 11.8-15.4 [facility] - CoagulationOrde red By: Rigoberto Montano on 12-08-2022 PT Coag (PPP) [Time] 11.4 s 9.0-12.9 [facility] Leukocytes [#/volume] correc diego for nucleated erythrocytes in Blood by Automated counOrdered By: Rigoberto Montano on 12-08-2022 WBC corrected for nucl RBC Auto (Bld) [#/Vol] 9.8 10*3/uL 3.8-11.6 [facility] Lymphocytes Auto (Bld) [#/Vo l]Ordered By: Rigoberto Montano on 12-08-2022 Lymphocytes (Bld) [#/Vol] 3.7 10*3/uL 1.00-4.8 [facility] Lymphocytes/100 WBC Auto (Bl d)Ordered By: Rigoberto Montano on 01-14-2023 Lymphocytes/100 WBC (Bld) 38.1 % . [facility] MCH Auto (RBC) [Entitic mass ]Ordered By: Rigoberto Montano on 12-08-2022 MCH (RBC) [Entitic mass] 29.2 pg 24.7-34.3 [facility] MCHC Auto (RBC) [Mass/Vol]Or dered By: Rigoberto Montano on 12-08-2022 MCHC (RBC) [Mass/Vol] 33.0 g/dL 32.0-35.0 [facility] MCV Auto (RBC) [Entitic vol] Ordered By: Rigoberto Montano on 12-08-2022 MCV (RBC) [Entitic vol] 88.4 fL 80-100 [facility] Monocytes Auto (Bld) [#/Vol] Ordered By: Rigoberto Montano on 12-08-2022 Monocytes (Bld) [#/Vol] 0.5 10*3/uL 0.0-0.8 [facility] Monocytes/100 WBC Auto (Bld) Ordered By: Rigoberto Montano on 12-08-2022 Monocytes/100 WBC (Bld) 5.3 % . [facility] Neutrophils Auto (Bld) [#/Vo l]Ordered By: Rigoberto Montano on 12-08-2022 Neutrophils (Bld) [#/Vol] 5.2 10*3/uL 1.8-7.7 [facility] Neutrophils/100 WBC Auto (Bl d)Ordered By: Rigoberto Montano on 12-08-2022 Neutrophils/100 WBC (Bld) 53.4 % . [facility] Nucleated erythrocytes [Pres ence] in Blood by Automated countOrdered By: Rigoberto Montano on 12-08-2022 Nucleated RBC Auto Ql (Bld) 0.1 /100{WBC} 0-0.5 [facility] Platelet mean volume Auto (B ld) [Entitic vol]Ordered By: Rigoberto Montano on 12-08-2022 Platelet mean volume (Bld) [Entitic vol] 8.0 fL 6.3-10.7 [facility] Platelet poor plasma interna tional normalized ratio (INR) by coagulation assay (relatOrdered By: Rigoberto Montano on 12-08-2022 INR Coag (PPP) [Relative time] 1.0 {INR} [facility] Comment on above: INR Therapeutic Rang [...] 12-08-2022 Platelets (Bld) [#/Vol] 362 10*3/uL 150-450 [facility] RBC Auto (Bld) [#/Vol]Ordere d By: Rigoberto Montano on 12-08-2022 RBC (Bld) [#/Vol] 3.94 10*6/uL 3.60-5.00 [facility] TSH DL <= 0.005 mIU/L QnOrde red By: Rigoberto Montano on 12-08-2022 TSH Qn 1.43 m[IU]/L 0.45-5.33 [facility] Thyroxine (T4) free [Mass/vo lume] in Serum or PlasmaOrdered By: Rigoberto Montano on 12-08-2022 Free T4 [Mass/Vol] 0.75 ng/dL 0.61-1.12 [facility] WBC Auto (Bld) [#/Vol]Ordere d By: Rigoberto Montano on 12-08-2022 WBC (Bld) [#/Vol] 9.8 10*3/uL 3.8-11.6 [facility] Pap IG,rfx Aptima HPV all pt hon 12-07-2022 . . Normal [facility] Comment on above: Performed By: #### P T, PTT #### [facility] [address] [place], [place] [address] Dr. Tati Reilly DIAGNOSIS: Comment Normal [facility] Comment on above: Result Comment: NEGA TIVE FOR INTRAEPITHELIAL LESION OR MALIGNANCY. PREDOMINANCE OF COCCOBACILLI CONSISTENT WITH SHIFT IN VAGINAL PATRIC IS PRESENT. Performed By: #### P T, PTT #### [facility] [address] [place] [address] Dr. Tati Reilly Methodology: Comment [facility] Comment on above: Result Comment: This liquid based ThinPrep(R) pap test was screened with the use of an image guided system. Performed By: #### P T, PTT #### [facility] [address] [place] [address] Dr. Tati Reilly Note: Comment Normal [facility] Comment on above: Result Comment: The Pap smear is a screening test designed to aid in the detection of premalignant and malignant conditions of the uterine cervix. It is not a diagnostic procedure and should not be used as the sole means of detecting cervical cancer. Both false-positive and false-negative reports do occur. . Performed By: #### P T, PTT #### [facility] [address] [place] [address] Dr. Tati Reilly Performed by: Comment Normal [facility] Comment on above: Result Comment: Mary Ellen Valerio, Boat Pilot (ASCP) Performed By: #### P T, PTT #### [facility] [address] [place] [address] Dr. Tati Reilly Reflex Criteria: Comment [facility] Comment on above: Result Comment: The HPV DNA reflex criteria were not met with this specimen result therefore, no HPV testing was performed. . Performed By: #### P T, PTT #### [facility] [address] [place] [address] Dr. Tati Reilly Specimen adequacy: Comment Normal [facility] Comment on above: Result Comment: Sati sfactory for evaluation. Endocervical and/or squamous metaplastic cells (endocervical component) are present. Performed By: #### P T, PTT #### [facility] [address] [place] [address] Dr. Tati Reilly Glucose mean value [Mass/vol ume] in Blood Estimated from glycated hemoglobinOrdered By: Rigoberto Montano on 12-01-2022 Average glucose Estimated from glycated hemoglobin (Bld) [Mass/Vol] 140 mg/dL [facility] Hemoglobin A1c percentageOrd ered By: Rigoberto Montano on 12-01-2022 HbA1c (Bld) [Mass fraction] 6.5 % 4.3-5.6 [facility] Comment on above: Increased risk for d iabetes: 5.7 - 6.4diabetes: >6.4glycemic control for adults with diabetes: <7.0 Activated partial thrombopla stin time (aPTT) in platelet poor plasma by coagulation aOrdered By: Hanane Rondon on 09-21-2022 aPTT Coag (PPP) [Time] 34.9 s 25.1-36.5 [facility] Anisocytosis LM Ql (Bld)Orde red By: Hanane Rondon on 09-21-2022 Anisocytosis Ql (Bld) Slight [facility] Basophils Auto (Bld) [#/Vol] Ordered By: Hanane Rondon on 09-21-2022 Basophils (Bld) [#/Vol] 0.1 10*3/uL 0.0-0.2 [facility] Basophils/100 WBC Auto (Bld) Ordered By: Hanane Rondon on 09-21-2022 Basophils/100 WBC (Bld) 1.1 % . [facility] Creatine kinase [Enzymatic a ctivity/volume] in Serum or PlasmaOrdered By: Hanane Rondon on 09-21-2022 CK [Catalytic activity/Vol] 82 U/L 22-269 [facility] Creatinine and Glomerular fi ltration rate.predicted panel (S/P/Bld)Ordered By: Hanane Rondon on 09-21-2022 Creatinine [Mass/Vol] 0.63 mg/dL 0.44-1.03 [facility] Eosinophils Auto (Bld) [#/Vo l]Ordered By: Hanane Rondon on 09-21-2022 Eosinophils (Bld) [#/Vol] 0.2 10*3/uL 0.0-0.45 [facility] Eosinophils/100 WBC Auto (Bl d)Ordered By: Hanane Rondon on 09-21-2022 Eosinophils/100 WBC (Bld) 2.3 % . [facility] Erythrocyte distribution wid th Auto (RBC) [Ratio]Ordered By: Hanane Rondon on 09-21-2022 Erythrocyte distribution width (RBC) [Ratio] 15.4 % 11.9-15.3 [facility] Estimated glomerular filtrat ion rate (GFR) non- AmericanOrdered By: Hanane Rondon on 09-21-2022 GFR/1.73 sq M.predicted among non-blacks MDRD (S/P/Bld) [Vol rate/Area] > 60 mL/Min [facility] Hematocrit Auto (Bld) [Volum e fraction]Ordered By: Hanane Rondon on 09-21-2022 Hematocrit (Bld) [Volume fraction] 34.8 % 34.0-46.4 [facility] Hemoglobin [Mass/volume] in BloodOrdered By: Hanane Rondon on 09-21-2022 Hemoglobin (Bld) [Mass/Vol] 11.4 g/dL 11.8-15.4 [facility] - Chemistry and C hemistry - challengeOrdered By: Hanane Rondon on 09-21-2022 Natriuretic peptide B (Bld) [Mass/Vol] 5.0 pg/mL 5-100 [facility] - CoagulationOrde red By: Hanane Rondon on 09-21-2022 PT Coag (PPP) [Time] 11.6 s 9.0-12.9 [facility] - Hematology and Cell countsOrdered By: Hanane Rondon on 09-21-2022 Nucleated RBC/100 WBC (Bld) [Ratio] 0.1 % 0-0.5 [facility] Leukocytes [#/volume] in Blo od by Automated countOrdered By: Hanane Rondon on 09-21-2022 WBC (Bld) [#/Vol] 9.5 10*3/uL 4.5-11.0 [facility] Lymphocytes Auto (Bld) [#/Vo l]Ordered By: Hanaen Rondon on 09-21-2022 Lymphocytes (Bld) [#/Vol] 4.1 10*3/uL 1.00-4.8 [facility] Lymphocytes/100 WBC Auto (Bl d)Ordered By: Hanane Rondon on 09-21-2022 Lymphocytes/100 WBC (Bld) 43.0 % . [facility] MCH Auto (RBC) [Entitic mass ]Ordered By: Hanane Rondon on 09-21-2022 MCH (RBC) [Entitic mass] 28.8 pg 24.7-34.3 [facility] MCHC Auto (RBC) [Mass/Vol]Or dered By: Hanane Rondon on 09-21-2022 MCHC (RBC) [Mass/Vol] 32.6 g/dL 32.0-35.0 [facility] MCV Auto (RBC) [Entitic vol] Ordered By: Hanane Rondon on 09-21-2022 MCV (RBC) [Entitic vol] 88.1 fL 80-100 [facility] Monocytes Auto (Bld) [#/Vol] Ordered By: Hanane Rondon on 09-21-2022 Monocytes (Bld) [#/Vol] 0.6 10*3/uL 0.0-0.8 [facility] Monocytes/100 WBC Auto (Bld) Ordered By: Hanane Rondon on 09-21-2022 Monocytes/100 WBC (Bld) 6.1 % . [facility] Neutrophils Auto (Bld) [#/Vo l]Ordered By: Hanane Rondon on 09-21-2022 Neutrophils (Bld) [#/Vol] 4.5 10*3/uL 1.8-7.7 [facility] Neutrophils/100 WBC Auto (Bl d)Ordered By: Hanane Rondon on 09-21-2022 Neutrophils/100 WBC (Bld) 47.5 % . [facility] No Panel InformationOrdered By: Hanane Rondon on 09-21-2022 Estimated GFR () > 60 mL/Min [facility] Comment on above: GFR estimated refere nce range: According to KDOQI guidelines, <60 ml/min/1.73m2 is sufficient to diagnose a patient with chronic kidney disease. Pharmacy Creatinine Clearance (Chem 145.43 [facility] Platelet adequacy [Presence] in Blood by Light microscopyOrdered By: Hanane Rondon on 09-21-2022 Platelets LM Ql (Bld) Normal Normal [facility] Platelet mean volume Auto (B ld) [Entitic vol]Ordered By: Hanane Rondon on 09-21-2022 Platelet mean volume (Bld) [Entitic vol] 8.3 fL 6.3-10.7 [facility] Platelet morphology finding [Identifier] in BloodOrdered By: Hanane Rondon on 09-21-2022 Platelet morphology finding Nom (Bld) Normal Normal [facility] Platelet poor plasma interna tional normalized ratio (INR) by coagulation assay (relatOrdered By: Hanane Rondon on 09-21-2022 INR Coag (PPP) [Relative time] 1.0 {INR} [facility] Comment on above: INR Therapeutic Rang [...] 09-21-2022 Platelets (Bld) [#/Vol] 393 10*3/uL 150-450 [facility] RBC Auto (Bld) [#/Vol]Ordere d By: Hanane Rondon on 09-21-2022 RBC (Bld) [#/Vol] 3.95 10*6/uL 3.60-5.00 [facility] RBC morphologyOrdered By: Dane Rondon on 09-21-2022 RBC morphology finding Nom (Bld) N/A [facility] Serum or plasma anion gap de terminationOrdered By: Hanane Rondon on 09-21-2022 Anion gap [Moles/Vol] 13.2 mmol/L 6.0-15.0 [facility] Serum or plasma calcium buzz urement (mass/volume)Ordered By: Hanane Rondon on 09-21-2022 Calcium [Mass/Vol] 9.1 mg/dL 8.2-10.2 [facility] Serum or plasma chloride celestino surement (moles/volume)Ordered By: Hanane Rondon on 09-21-2022 Chloride [Moles/Vol] 103 mmol/L 95-114 [facility] Serum or plasma creatine kin ase MB (CKMB)/total creatine kinase (CK) ratio by calculaOrdered By: Hanane Rondon on 09-21-2022 CK.MB Calc [Catalytic fraction] 1.2 % 0.00-2.50 [facility] Serum or plasma creatine kin ase MB measurement (mass/volume)Ordered By: Hanane Rondon on 09-21-2022 CK.MB [Mass/Vol] 1.0 ng/mL 0.6-6.3 [facility] Serum or plasma glucose buzz urement (mass/volume)Ordered By: Hanane Rondon on 09-21-2022 Glucose [Mass/Vol] 148 mg/dL 70-100 [facility] Comment on above: ADA recommended refe rence rangeRandom Glucose Reference Range is dependent on time and content of last meal. Glucose of more than 200 mg/dL in a nonstressed, ambulatory subject supports the diagnosis of Diabetes Mellitus. Serum or plasma potassium me asurement (moles/volume)Ordered By: Hanane Rondon on 09-21-2022 Potassium [Moles/Vol] 3.2 mmol/L 3.5-5.1 [facility] Serum or plasma sodium measu rement (moles/volume)Ordered By: Hanane Rondon on 09-21-2022 Sodium [Moles/Vol] 136 mmol/L 136-146 [facility] Serum or plasma total carbon dioxide measurement (moles/volume)Ordered By: Hanane Rondon on 09-21-2022 CO2 [Moles/Vol] 23.0 mmol/L 22.0-30.0 [facility] Serum or plasma urea nitroge n measurement (mass/volume)Ordered By: Hanane Rondon 09-21-2022 Urea nitrogen [Mass/Vol] 9 mg/dL 08-17 [facility] Troponin I.cardiac [Mass/vol ume] in Serum or Plasma by High sensitivity methodOrdered By: Hanane Rondon 09-21-2022 Troponin I.cardiac High sensitivity method [Mass/Vol] < 3 pg/mL 0-15 [facility] Urine culture routineOrdered By: Ga Marques on 08-17-2022 Bacteria identified Cx Nom (U) 2 Days [facility] Automated erythrocytes count in urine sediment (number/area)Ordered By: Ga Marques on 08-15-2022 RBC Auto (Urine sed) [#/Area] 3-4 [HPF] 0-4 [facility] Automated leukocytes count i n urine sediment (number/area)Ordered By: Ga Marques on 08-15-2022 WBC Auto (Urine sed) [#/Area] 3-4 [HPF] 0-4 [facility] Automated urine hyaline cast s count (number/volume)Ordered By: Ga Marques on 08-15-2022 Hyaline casts Auto (U) [#/Vol] None seen [LPF] 0-1 [facility] Bilirubin Test strip Ql (U)O rdered By: Ga Marques on 08-15-2022 Bilirubin Ql (U) Negative Negative [facility] Casts typing in urine sedime nt by light microscopyOrdered By: Ga Marques on 08-15-2022 Casts LM Nom (Urine sed) None seen [LPF] None Seen [facility] Color Auto (U)Ordered By: Loreta Marques on 08-15-2022 Color (U) Yellow Yellow [facility] Ketones Auto test strip (U) [Mass/Vol]Ordered By: Ga Marques on 08-15-2022 Ketones (U) [Mass/Vol] Trace Negative [facility] Nitrite Test strip Ql (U)Ord ered By: Ga Marques on 08-15-2022 Nitrite Ql (U) Negative Negative [facility] Protein Auto test strip (U) [Mass/Vol]Ordered By: Ga Marques on 08-15-2022 Protein (U) [Mass/Vol] Trace mg/dL Negative [facility] Specific gravity Auto test s trip (U) [Rel density]Ordered By: Ga Marques on 08-15-2022 Specific gravity (U) [Rel density] 1.025 1.001-1.03 0 [facility] Squamous epithelial cells de tection in urine sediment by light microscopyOrdered By: Ga Marques on 08-15-2022 Epithelial cells.squamous LM Ql (Urine sed) 5-9 [HPF] 0-2 [facility] Urine bacteria detection by automated methodOrdered By: Ga Marques on 08-15-2022 Bacteria Auto Ql (U) None seen None Seen [facility] Urine clarity by refractomet ry automatedOrdered By: Ga Marques on 08-15-2022 Clarity Refractometry automated (U) Clear Clear [facility] Urine glucose measurement by automated test strip (mass/volume)Ordered By: Ga Marques on 08-15-2022 Glucose Auto test strip (U) [Mass/Vol] Normal mg/dL Normal [facility] Urine hemoglobin detection b y automated test stripOrdered By: Ga Marques on 08-15-2022 Hemoglobin Auto test strip Ql (U) Negative Negative [facility] Urine leukocyte esterase det ection by automated test stripOrdered By: Ga Marques on 08-15-2022 Leukocyte esterase Auto test strip Ql (U) Negative Negative [facility] Urobilinogen Auto test strip (U) [Mass/Vol]Ordered By: Ga Marques on 08-15-2022 Urobilinogen (U) [Mass/Vol] Normal mg/dL Normal [facility] pH Auto test strip (U)Ordere d By: Ga Marques on 08-15-2022 pH (U) 5.5 [pH] 5.0-9.0 [facility] Albumin [Mass/volume] in Ser um or PlasmaOrdered By: Ga Marques on 07-21-2022 Albumin [Mass/Vol] 3.3 g/dL 3.2-5.5 [facility] Basophils Auto (Bld) [#/Vol] Ordered By: Ga Marques on 07-21-2022 Basophils (Bld) [#/Vol] 0.1 10*3/uL 0.0-0.2 [facility] Basophils/100 WBC Auto (Bld) Ordered By: Ga Marques on 07-21-2022 Basophils/100 WBC (Bld) 0.8 % . [facility] Blood hemoglobin measurement (mass/volume)Ordered By: Ga Marques on 07-21-2022 Hemoglobin (Bld) [Mass/Vol] 12.5 g/dL 11.8-15.4 [facility] Blood leukocytes automated c ount (number/volume)Ordered By: Ga Marques on 07-21-2022 WBC (Bld) [#/Vol] 9.3 10*3/uL 4.5-11.0 [facility] Cholesterol [Mass/volume] in Serum or PlasmaOrdered By: Ga Marques on 07-21-2022 Cholesterol [Mass/Vol] 189 mg/dL 140-200 [facility] Comment on above: Chol less than 200 m g/dl low risk Chol 201-239 mg/dl borderline risk Chol 240 mg/dl and greater high risk Chol less than 200 m g/dl low riskChol 201-239 mg/dl borderline riskChol 240 mg/dl and greater high risk Cholesterol in LDL Calc [Mas s/Vol]Ordered By: Ga Marques on 07-21-2022 Cholesterol in LDL [Mass/Vol] 143 mg/dL 0-100 [facility] Comment on above: LDL ATP III [...] 07-21-2022 Cholesterol in VLDL [Mass/Vol] 15 mg/dL [facility] Creatinine and Glomerular fi ltration rate.predicted panel (S/P/Bld)Ordered By: Ga Marques on 07-21-2022 Creatinine [Mass/Vol] 0.58 mg/dL 0.44-1.03 [facility] Eosinophils Auto (Bld) [#/Vo l]Ordered By: Ga Marques on 07-21-2022 Eosinophils (Bld) [#/Vol] 0.2 10*3/uL 0.0-0.45 [facility] Eosinophils/100 WBC Auto (Bl d)Ordered By: aG Marques on 07-21-2022 Eosinophils/100 WBC (Bld) 2.1 % . [facility] [facility] Erythrocyte distribution wid th Auto (RBC) [Ratio]Ordered By: Ga Marques on 07-21-2022 Erythrocyte distribution width (RBC) [Ratio] 14.7 % 11.9-15.3 [facility] Estimated glomerular filtrat ion rate (GFR) non- AmericanOrdered By: Ga Marques on 07-21-2022 GFR/1.73 sq M.predicted among non-blacks MDRD (S/P/Bld) [Vol rate/Area] > 60 mL/Min [facility] Globulin Calc (S) [Mass/Vol] Ordered By: Ga Marques on 07-21-2022 Globulin (S) [Mass/Vol] 3.4 g/dL [facility] Hematocrit Auto (Bld) [Volum e fraction]Ordered By: Ga Marques on 07-21-2022 Hematocrit (Bld) [Volume fraction] 38.0 % 34.0-46.4 [facility] Laboratory - Hematology and Cell countsOrdered By: Ga Marques on 07-21-2022 Nucleated RBC/100 WBC (Bld) [Ratio] 0.1 % 0-0.5 [facility] Lymphocytes Auto (Bld) [#/Vo l]Ordered By: Ga Marques on 07-21-2022 Lymphocytes (Bld) [#/Vol] 4.3 10*3/uL 1.00-4.8 [facility] Lymphocytes/100 WBC Auto (Bl d)Ordered By: Ga Marques on 07-21-2022 Lymphocytes/100 WBC (Bld) 46.6 % . [facility] MCH Auto (RBC) [Entitic mass ]Ordered By: Ga Marques on 07-21-2022 MCH (RBC) [Entitic mass] 29.3 pg 24.7-34.3 [facility] MCHC Auto (RBC) [Mass/Vol]Or dered By: Ga Marques on 07-21-2022 MCHC (RBC) [Mass/Vol] 32.9 g/dL 32.0-35.0 [facility] MCV Auto (RBC) [Entitic vol] Ordered By: Ga Marques on 07-21-2022 MCV (RBC) [Entitic vol] 89.1 fL 80-100 [facility] Monocytes Auto (Bld) [#/Vol] Ordered By: Ga Marques on 07-21-2022 Monocytes (Bld) [#/Vol] 0.6 10*3/uL 0.0-0.8 [facility] Monocytes/100 WBC Auto (Bld) Ordered By: Ga Marques on 07-21-2022 Monocytes/100 WBC (Bld) 6.1 % . [facility] Neutrophils Auto (Bld) [#/Vo l]Ordered By: Ga Marques on 07-21-2022 Neutrophils (Bld) [#/Vol] 4.1 10*3/uL 1.8-7.7 [facility] Neutrophils/100 WBC Auto (Bl d)Ordered By: Ga Marques on 07-21-2022 Neutrophils/100 WBC (Bld) 44.4 % . [facility] No Panel InformationOrdered By: Ga Marques on 07-21-2022 Estimated GFR () > 60 mL/Min [facility] Comment on above: GFR estimated refere nce range: According to KDOQI guidelines, <60 ml/min/1.73m2 is sufficient to diagnose a patient with chronic kidney disease. Pharmacy Creatinine Clearance (Chem N/A [facility] Platelet mean volume Auto (B ld) [Entitic vol]Ordered By: Ga Marques on 07-21-2022 Platelet mean volume (Bld) [Entitic vol] 8.3 fL 6.3-10.7 [facility] Platelets Auto (Bld) [#/Vol] Ordered By: Ga Marques on 07-21-2022 Platelets (Bld) [#/Vol] 414 10*3/uL 150-450 [facility] Protein [Mass/volume] in Ser um or PlasmaOrdered By: Ga Marques on 07-21-2022 Protein [Mass/Vol] 6.7 g/dL 6.1-7.9 [facility] RBC Auto (Bld) [#/Vol]Ordere d By: Ga Marques on 07-21-2022 RBC (Bld) [#/Vol] 4.27 10*6/uL 3.60-5.00 [facility] Serum or plasma alanine olivarez otransferase measurement without P-5'-P (enzymatic activiOrdered By: Ga Marques on 07-21-2022 ALT No additional P-5'-P [Catalytic activity/Vol] 20 U/L 10-60 [facility] Serum or plasma albumin/glob ulin mass ratioOrdered By: Ga Marques on 07-21-2022 Albumin/Globulin [Mass ratio] 1.0 {ratio} [facility] Serum or plasma alkaline luci sphatase measurement (enzymatic activity/volume)Ordered By: Ga Marques on 07-21-2022 ALP [Catalytic activity/Vol] 69 U/L 32-92 [facility] Serum or plasma aspartate am inotransferase measurement (enzymatic activity/volume)Ordered By: Ga Marques on 07-21-2022 AST [Catalytic activity/Vol] 20 U/L 10-42 [facility] Serum or plasma calcium buzz urement (mass/volume)Ordered By: Ga Marques on 07-21-2022 Calcium [Mass/Vol] 8.8 mg/dL 8.2-10.2 [facility] Serum or plasma chloride celestino surement (moles/volume)Ordered By: Ga Marques on 07-21-2022 Chloride [Moles/Vol] 107 mmol/L 95-114 [facility] Serum or plasma glucose buzz urement (mass/volume)Ordered By: Ga Marques on 07-21-2022 Glucose [Mass/Vol] 95 mg/dL 70-100 [facility] Comment on above: ADA recommended refe rence [...] Cholesterol in HDL [Mass/Vol] 31 mg/dL 35-85 [facility] Comment on above: HDL CHOL ATP-III CLA SSIFICATION Cardiovascular Risk HDL > or equal to 60 mg/dL LOW HDL < 40 mg/dL HIGH HDL CHOL ATP-III CLA SSIFICATION Cardiovascular RiskHDL > or equal to 60 mg/dL LOWHDL < 40 mg/dL HIGH Serum or plasma potassium me asurement (moles/volume)Ordered By: Ga Marques on 07-21-2022 Potassium [Moles/Vol] 3.2 mmol/L 3.5-5.1 [facility] Serum or plasma sodium measu rement (moles/volume)Ordered By: Ga Marques on 07-21-2022 Sodium [Moles/Vol] 139 mmol/L 136-146 [facility] Serum or plasma total biliru bin measurement (mass/volume)Ordered By: Ga Marques on 07-21-2022 Bilirubin [Mass/Vol] 0.3 mg/dL 0.3-1.2 [facility] Serum or plasma total carbon dioxide measurement (moles/volume)Ordered By: Ga Marques on 07-21-2022 CO2 [Moles/Vol] 23.3 mmol/L 22.0-30.0 [facility] Serum or plasma total choles terol/high density lipoprotein (HDL) cholesterol mass ratOrdered By: Ga Marques on 07-21-2022 Cholesterol.total/Cho lesterol in HDL [Mass ratio] 6.1 {ratio} <5.0 [facility] Serum or plasma urea nitroge n measurement (mass/volume)Ordered By: Ga Marques on 07-21-2022 Urea nitrogen [Mass/Vol] 5 mg/dL 9-23 [facility] TSH DL <= 0.005 mIU/L QnOrde red By: Ga Marques on 07-21-2022 TSH Qn 1.11 m[IU]/L 0.45-5.33 [facility] Triglyceride [Mass/volume] i n Serum or PlasmaOrdered By: Ga Marques on 07-21-2022 Triglyceride [Mass/Vol] 77 mg/dL 35-149 [facility] Comment on above: TRIG ATP III [...] from glycated hemoglobin (Bld) [Mass/Vol] 200 mg/dL [facility] Hemoglobin A1c percentageOrd ered By: Rigoberto Montano on 06-15-2022 HbA1c (Bld) [Mass fraction] 8.6 % 4.3-5.6 [facility] Comment on above: Increased risk for d iabetes: 5.7 - 6.4 diabetes: >6.4 glycemic control for adults with diabetes: <7.0 Increased risk for d iabetes: 5.7 - 6.4diabetes: >6.4glycemic control for adults with diabetes: <7.0 Glucose Glucometer (BldC) [M ass/Vol]Ordered By: Aleksandr Viera on 05-21-2022 Glucose [Mass/Vol] 129 mg/dL [facility] Comment on above: Random Glucose Refer ence Range is dependent on time and content of last meal. Glucose of more than 200 mg/dL in a nonstressed, ambulatory subject supports the diagnosis of Diabetes Mellitus. HCG ( test) IA.rapi d Ql (U)Ordered By: Prateek Lee on 05-21-2022 HCG ( test) Ql (U) Negative [facility] COVID-19 Positive/NegativeOr dered By: Aleksandr Viera on 05-17-2022 SARS-CoV-2 (COVID-19) N gene CODY+probe Ql (Resp) Negative Negative [facility] Comment on above: Testing for SARS-CoV -2 by RT-PCR This test was developed and its performance characteristics determined by [employer] and validated at the [facility]. This test has not been FDA [...] 05-11-2022 Basophils (Bld) [#/Vol] 0.0 10*3/uL 0.0-0.2 [facility] Basophils/100 WBC Auto (Bld) Ordered By: Aleksandr Viera on 05-11-2022 Basophils/100 WBC (Bld) 0.7 % . [facility] Blood hemoglobin measurement (mass/volume)Ordered By: Aleksandr Viera on 05-11-2022 Hemoglobin (Bld) [Mass/Vol] 12.1 g/dL 11.8-15.4 [facility] Blood leukocytes automated c ount (number/volume)Ordered By: Aleksandr Viera on 05-11-2022 WBC (Bld) [#/Vol] 6.8 10*3/uL 4.5-11.0 [facility] Creatinine and Glomerular fi ltration rate.predicted panel (S/P/Bld)Ordered By: Aleksandr Viera on 05-11-2022 Creatinine [Mass/Vol] 0.62 mg/dL 0.44-1.03 [facility] Eosinophils Auto (Bld) [#/Vo l]Ordered By: Aleksandr Viera on 05-11-2022 Eosinophils (Bld) [#/Vol] 0.2 10*3/uL 0.0-0.45 [facility] Eosinophils/100 WBC Auto (Bl d)Ordered By: Aleksandr Viera on 05-11-2022 Eosinophils/100 WBC (Bld) 2.4 % . [facility] Erythrocyte distribution wid th Auto (RBC) [Ratio]Ordered By: Aleksandr Viera on 05-11-2022 Erythrocyte distribution width (RBC) [Ratio] 15.5 % 11.9-15.3 [facility] Estimated glomerular filtrat ion rate (GFR) non- AmericanOrdered By: Aleksandr Viera on 05-11-2022 GFR/1.73 sq M.predicted among non-blacks MDRD (S/P/Bld) [Vol rate/Area] > 60 mL/Min [facility] Hematocrit Auto (Bld) [Volum e fraction]Ordered By: Aleksandr Viera on 05-11-2022 Hematocrit (Bld) [Volume fraction] 36.4 % 34.0-46.4 [facility] Laboratory - Hematology and Cell countsOrdered By: Aleksandr Viera on 05-11-2022 Nucleated RBC/100 WBC (Bld) [Ratio] 0.1 % 0-0.5 [facility] Lymphocytes Auto (Bld) [#/Vo l]Ordered By: Aleksandr Viera on 05-11-2022 Lymphocytes (Bld) [#/Vol] 2.8 10*3/uL 1.00-4.8 [facility] Lymphocytes/100 WBC Auto (Bl d)Ordered By: Aleksandr Viera on 05-11-2022 Lymphocytes/100 WBC (Bld) 41.9 % . [facility] MCH Auto (RBC) [Entitic mass ]Ordered By: Aleksandr Viera on 05-11-2022 MCH (RBC) [Entitic mass] 29.5 pg 24.7-34.3 [facility] MCHC Auto (RBC) [Mass/Vol]Or dered By: Aleksandr Viera on 05-11-2022 MCHC (RBC) [Mass/Vol] 33.2 g/dL 32.0-35.0 [facility] MCV Auto (RBC) [Entitic vol] Ordered By: Aleksandr Viera on 05-11-2022 MCV (RBC) [Entitic vol] 88.8 fL 80-100 [facility] Monocytes Auto (Bld) [#/Vol] Ordered By: Aleksandr Viera on 05-11-2022 Monocytes (Bld) [#/Vol] 0.5 10*3/uL 0.0-0.8 [facility] Monocytes/100 WBC Auto (Bld) Ordered By: Aleksandr Viera on 05-11-2022 Monocytes/100 WBC (Bld) 7.7 % . [facility] Neutrophils Auto (Bld) [#/Vo l]Ordered By: Aleksandr Viera on 05-11-2022 Neutrophils (Bld) [#/Vol] 3.2 10*3/uL 1.8-7.7 [facility] Neutrophils/100 WBC Auto (Bl d)Ordered By: Aleksandr Viera on 05-11-2022 Neutrophils/100 WBC (Bld) 47.3 % . [facility] No Panel InformationOrdered By: Aleksandr Viera on 05-11-2022 Estimated GFR () > 60 mL/Min [facility] Comment on above: GFR estimated refere nce range: According to KDOQI guidelines, <60 ml/min/1.73m2 is sufficient to diagnose a patient with chronic kidney disease. Pharmacy Creatinine Clearance (Chem N/A [facility] Platelet mean volume Auto (B ld) [Entitic vol]Ordered By: Aleksandr Viera on 05-11-2022 Platelet mean volume (Bld) [Entitic vol] 8.2 fL 6.3-10.7 [facility] Platelets Auto (Bld) [#/Vol] Ordered By: Aleksandr Viera on 05-11-2022 Platelets (Bld) [#/Vol] 408 10*3/uL 150-450 [facility] RBC Auto (Bld) [#/Vol]Ordere d By: Aleksandr Viera on 05-11-2022 RBC (Bld) [#/Vol] 4.10 10*6/uL 3.60-5.00 [facility] Serum or plasma calcium buzz urement (mass/volume)Ordered By: Aleksandr Viera on 05-11-2022 Calcium [Mass/Vol] 9.4 mg/dL 8.2-10.2 [facility] Serum or plasma chloride celestino surement (moles/volume)Ordered By: Aleksandr Viera on 05-11-2022 Chloride [Moles/Vol] 104 mmol/L 95-114 [facility] Serum or plasma glucose buzz urement (mass/volume)Ordered By: Aleksandr Viera on 05-11-2022 Glucose [Mass/Vol] 148 mg/dL 70-100 [facility] Comment on above: ADA recommended refe rence range Random Glucose Reference Range is dependent on time and content of last meal. Glucose of more than 200 mg/dL in a nonstressed, ambulatory subject supports the diagnosis of Diabetes Mellitus. Serum or plasma potassium me asurement (moles/volume)Ordered By: Aleksandr Viera on 05-11-2022 Potassium [Moles/Vol] 4.0 mmol/L 3.5-5.1 [facility] Serum or plasma sodium measu rement (moles/volume)Ordered By: Aleksandr Viera on 05-11-2022 Sodium [Moles/Vol] 136 mmol/L 136-146 [facility] Serum or plasma total carbon dioxide measurement (moles/volume)Ordered By: Aleksandr Viera on 05-11-2022 CO2 [Moles/Vol] 19.6 mmol/L 22.0-30.0 [facility] Serum or plasma urea nitroge n measurement (mass/volume)Ordered By: Aleksandr Viera on 05-11-2022 Urea nitrogen [Mass/Vol] 5 mg/dL 08-17 [facility] Albumin [Mass/volume] in Ser um or PlasmaOrdered By: Ga Marques on 03-17-2022 Albumin [Mass/Vol] 3.4 g/dL 3.2-5.5 [facility] Basophils Auto (Bld) [#/Vol] Ordered By: Ga Marques on 03-17-2022 Basophils (Bld) [#/Vol] 0.2 10*3/uL 0.0-0.2 [facility] Basophils/100 WBC Auto (Bld) Ordered By: Ga Marques on 03-17-2022 Basophils/100 WBC (Bld) 1.6 % [facility] Blood hemoglobin measurement (mass/volume)Ordered By: Ga Marques on 03-17-2022 Hemoglobin (Bld) [Mass/Vol] 12.7 g/dL 11.8-15.4 [facility] Blood leukocytes automated c ount (number/volume)Ordered By: Ga Marques on 03-17-2022 WBC (Bld) [#/Vol] 10.9 10*3/uL 4.5-11.0 [facility] Cholesterol [Mass/volume] in Serum or PlasmaOrdered By: Ga Marques on 03-17-2022 Cholesterol [Mass/Vol] 194 mg/dL 140-200 [facility] Comment on above: Chol less than 200 m g/dl low riskChol 201-239 mg/dl borderline riskChol 240 mg/dl and greater high risk Chol less than 200 m g/dl low risk Chol 201-239 mg/dl borderline risk Chol 240 mg/dl and greater high risk Cholesterol in LDL Calc [Mas s/Vol]Ordered By: Ga Marques on 03-17-2022 Cholesterol in LDL [Mass/Vol] 132 mg/dL 0-100 [facility] Comment on above: LDL ATP III [...] 03-17-2022 Cholesterol in VLDL [Mass/Vol] 16 mg/dL [facility] Creatinine [Mass/volume] in UrineOrdered By: Ga Marques on 03-17-2022 Creatinine (U) [Mass/Vol] 122.2 mg/dL [facility] Comment on above: No reference range e stablished Creatinine and Glomerular fi ltration rate.predicted panel (S/P/Bld)Ordered By: Ga Marques on 03-17-2022 Creatinine [Mass/Vol] 0.59 mg/dL 0.44-1.03 [facility] Eosinophils Auto (Bld) [#/Vo l]Ordered By: Ga Marques on 03-17-2022 Eosinophils (Bld) [#/Vol] 0.2 10*3/uL 0.0-0.45 [facility] Eosinophils/100 WBC Auto (Bl d)Ordered By: Ga Marques on 03-17-2022 Eosinophils/100 WBC (Bld) 1.5 % [facility] Erythrocyte distribution wid th Auto (RBC) [Ratio]Ordered By: Ga Marques on 03-17-2022 Erythrocyte distribution width (RBC) [Ratio] 16.0 % 11.9-15.3 [facility] Estimated glomerular filtrat ion rate (GFR) non- AmericanOrdered By: Ga Marques on 03-17-2022 GFR/1.73 sq M.predicted among non-blacks MDRD (S/P/Bld) [Vol rate/Area] > 60 mL/Min [facility] Globulin Calc (S) [Mass/Vol] Ordered By: Ga Marques on 03-17-2022 Globulin (S) [Mass/Vol] 3.5 g/dL [facility] Glucose mean value [Mass/vol ume] in Blood Estimated from glycated hemoglobinOrdered By: Ga Marques on 03-17-2022 Average glucose Estimated from glycated hemoglobin (Bld) [Mass/Vol] 163 mg/dL [facility] Hematocrit Auto (Bld) [Volum e fraction]Ordered By: Ga Marques on 03-17-2022 Hematocrit (Bld) [Volume fraction] 38.4 % 34.0-46.4 [facility] Hemoglobin A1c percentageOrd ered By: Ga Marques on 03-17-2022 HbA1c (Bld) [Mass fraction] 7.3 % 4.3-5.6 [facility] Comment on above: Increased risk for d iabetes: 5.7 - 6.4 diabetes: >6.4 glycemic control for adults with diabetes: <7.0 Laboratory - Hematology and Cell countsOrdered By: Ga Marques on 03-17-2022 Nucleated RBC/100 WBC (Bld) [Ratio] 0.1 % 0-0.5 [facility] Lymphocytes Auto (Bld) [#/Vo l]Ordered By: Ga Marques on 03-17-2022 Lymphocytes (Bld) [#/Vol] 3.2 10*3/uL 1.00-4.8 [facility] Lymphocytes/100 WBC Auto (Bl d)Ordered By: Ga Marques on 03-17-2022 Lymphocytes/100 WBC (Bld) 29.6 % [facility] MCH Auto (RBC) [Entitic mass ]Ordered By: Ga Marques on 03-17-2022 MCH (RBC) [Entitic mass] 29.4 pg 24.7-34.3 [facility] MCHC Auto (RBC) [Mass/Vol]Or dered By: Ga Marques on 03-17-2022 MCHC (RBC) [Mass/Vol] 33.0 g/dL 32.0-35.0 [facility] MCV Auto (RBC) [Entitic vol] Ordered By: Ga Marques on 03-17-2022 MCV (RBC) [Entitic vol] 89.0 fL 80-100 [facility] Monocytes Auto (Bld) [#/Vol] Ordered By: Ga Marques on 03-17-2022 Monocytes (Bld) [#/Vol] 0.3 10*3/uL 0.0-0.8 [facility] Monocytes/100 WBC Auto (Bld) Ordered By: Ga Marques on 03-17-2022 Monocytes/100 WBC (Bld) 2.8 % [facility] Neutrophils Auto (Bld) [#/Vo l]Ordered By: Ga Marques on 03-17-2022 Neutrophils (Bld) [#/Vol] 7.0 10*3/uL 1.8-7.7 [facility] Neutrophils/100 WBC Auto (Bl d)Ordered By: Ga Marques on 03-17-2022 Neutrophils/100 WBC (Bld) 64.5 % [facility] No Panel InformationOrdered By: Ga Marques on 03-17-2022 Estimated GFR () > 60 mL/Min [facility] Comment on above: GFR estimated refere nce range: According to KDOQI guidelines, <60 ml/min/1.73m2 is sufficient to diagnose a patient with chronic kidney disease. Pharmacy Creatinine Clearance (Chem N/A [facility] Platelet mean volume Auto (B ld) [Entitic vol]Ordered By: Ga Marques on 03-17-2022 Platelet mean volume (Bld) [Entitic vol] 8.0 fL 6.3-10.7 [facility] Platelets Auto (Bld) [#/Vol] Ordered By: Ga Marques on 03-17-2022 Platelets (Bld) [#/Vol] 416 10*3/uL 150-450 [facility] Protein [Mass/volume] in Ser um or PlasmaOrdered By: Ga Marques on 03-17-2022 Protein [Mass/Vol] 6.9 g/dL 6.1-7.9 [facility] RBC Auto (Bld) [#/Vol]Ordere d By: Ga Marques on 03-17-2022 RBC (Bld) [#/Vol] 4.32 10*6/uL 3.60-5.00 [facility] Serum or plasma alanine olivarez otransferase measurement without P-5'-P (enzymatic activiOrdered By: Ga Marques on 03-17-2022 ALT No additional P-5'-P [Catalytic activity/Vol] 27 U/L 10-60 [facility] Serum or plasma albumin/glob ulin mass ratioOrdered By: Ga Marques on 03-17-2022 Albumin/Globulin [Mass ratio] 1.0 {ratio} [facility] Serum or plasma alkaline luci sphatase measurement (enzymatic activity/volume)Ordered By: Ga Marques on 03-17-2022 ALP [Catalytic activity/Vol] 78 U/L 32-92 [facility] Serum or plasma aspartate am inotransferase measurement (enzymatic activity/volume)Ordered By: Ga Marques on 03-17-2022 AST [Catalytic activity/Vol] 24 U/L 10-42 [facility] Serum or plasma calcium buzz urement (mass/volume)Ordered By: Ga Marques on 03-17-2022 Calcium [Mass/Vol] 8.7 mg/dL 8.2-10.2 [facility] Serum or plasma chloride celestino surement (moles/volume)Ordered By: Ga Marques on 03-17-2022 Chloride [Moles/Vol] 103 mmol/L 95-114 [facility] Serum or plasma glucose buzz urement (mass/volume)Ordered By: Ga Marques on 03-17-2022 Glucose [Mass/Vol] 139 mg/dL 70-100 [facility] Comment on above: ADA recommended refe rence [...] Cholesterol in HDL [Mass/Vol] 45 mg/dL 35-85 [facility] Comment on above: HDL CHOL ATP-III CLA SSIFICATION Cardiovascular RiskHDL > or equal to 60 mg/dL LOWHDL < 40 mg/dL HIGH HDL CHOL ATP-III CLA SSIFICATION Cardiovascular Risk HDL > or equal to 60 mg/dL LOW HDL < 40 mg/dL HIGH Serum or plasma potassium me asurement (moles/volume)Ordered By: Ga Marques on 03-17-2022 Potassium [Moles/Vol] 3.5 mmol/L 3.5-5.1 [facility] Serum or plasma sodium measu rement (moles/volume)Ordered By: Ga Marques on 03-17-2022 Sodium [Moles/Vol] 135 mmol/L 136-146 [facility] Serum or plasma total biliru bin measurement (mass/volume)Ordered By: Ga Marques on 03-17-2022 Bilirubin [Mass/Vol] 0.4 mg/dL 0.3-1.2 [facility] Serum or plasma total carbon dioxide measurement (moles/volume)Ordered By: Ga Marques on 03-17-2022 CO2 [Moles/Vol] 20.7 mmol/L 22.0-30.0 [facility] Serum or plasma total choles terol/high density lipoprotein (HDL) cholesterol mass ratOrdered By: Ga Marques on 03-17-2022 Cholesterol.total/Cho lesterol in HDL [Mass ratio] 4.3 {ratio} [facility] Serum or plasma urea nitroge n measurement (mass/volume)Ordered By: Ga Marques on 03-17-2022 Urea nitrogen [Mass/Vol] 8 mg/dL 9-23 [facility] TSH DL <= 0.005 mIU/L QnOrde red By: Ga Marques on 03-17-2022 TSH Qn 1.19 m[IU]/L 0.45-5.33 [facility] Triglyceride [Mass/volume] i n Serum or PlasmaOrdered By: Ga Marques on 03-17-2022 Triglyceride [Mass/Vol] 84 mg/dL 35-149 [facility] Comment on above: TRIG ATP III [...] 20 mg/L (U) [Mass/Vol] 11.7 mg/dL 0.0-1.8 [facility] Urine microalbumin/creatinin e mass ratioOrdered By: Ga Marques on 03-17-2022 Albumin/Creatinine DL <= 20 mg/L (U) [Mass ratio] 95.0 mg/g 0.0-30.0 [facility] Comment on above: 30-300 mg/g indicate s an increased risk for diabetic nephropathy. Greater than 300 mg/g is consistent with clinical nephropathy. (Am. J. Kidney Disease 1995, 25:107) Vital Signs Date Time Vital Sign Value Performing Clinician Facility 05-24-2025 11:08-0400 Body mass index (BMI) [Ratio] 32.2 kg/m2 Iris FONTENOT Work Phone: [facility] 05-24-2025 11:08-0400 Body weight 90.49 kg Iris FONTENOT Work Phone: [facility] 05-24-2025 11:08-0400 Diastolic blood pressure 82 mm[Hg] Iris FONTENOT Work Phone: [facility] 05-24-2025 11:08-0400 Systolic blood pressure 112 mm[Hg] Iris FONTENOT Work Phone: [facility] 05-03-2025 11:38-0400 Body mass index (BMI) [Ratio] 32.44 kg/m2 Rigoberto Montano DO Work Phone: [facility] 05-03-2025 11:38-0400 Body weight 91.17 kg Rigoberto Dusty DO Work Phone: [facility] 05-03-2025 11:38-0400 Diastolic blood pressure 74 mm[Hg] Rigoberto Dusty DO Work Phone: [facility] 05-03-2025 11:38-0400 Systolic blood pressure 118 mm[Hg] Rigoberto Dusty DO Work Phone: [facility] 04-15-2025 12:13-0400 Body height 165.1 cm [facility] 04-15-2025 12:13-0400 Body weight 92.6 kg [facility] 04-15-2025 12:11-0400 Body temperature 98.4 [degF] [facility] 04-15-2025 12:11-0400 Diastolic blood pressure 90 mm[Hg] [facility] 04-15-2025 12:11-0400 Heart rate 83 /min [facility] 04-15-2025 12:11-0400 Respiratory rate 18 /min [facility] 04-15-2025 12:11-0400 SaO2% (BldA) [Mass fraction] 100 % [facility] 04-15-2025 12:11-0400 Systolic blood pressure 147 mm[Hg] [facility] 03-23-2025 08:24-0400 Body temperature 97.9 [degF] [facility] 03-23-2025 08:24-0400 Diastolic blood pressure 70 mm[Hg] [facility] 03-23-2025 08:24-0400 Heart rate 80 /min [facility] 03-23-2025 08:24-0400 Respiratory rate 16 /min [facility] 03-23-2025 08:24-0400 SaO2% (BldA) [Mass fraction] 99 % [facility] 03-23-2025 08:24-0400 Systolic blood pressure 133 mm[Hg] [facility] 03-20-2025 02:33-0400 Diastolic blood pressure 66 mm[Hg] [facility] 03-20-2025 02:33-0400 Heart rate 86 /min [facility] 03-20-2025 02:33-0400 Respiratory rate 20 /min [facility] 03-20-2025 02:33-0400 SaO2% (BldA) [Mass fraction] 99 % [facility] 03-20-2025 02:33-0400 Systolic blood pressure 128 mm[Hg] [facility] 03-20-2025 00:28-0400 Body height 167.64 cm [facility] 03-20-2025 00:28-0400 Body temperature 98.2 [degF] [facility] 03-20-2025 00:28-0400 Body weight 90 kg [facility] 02-10-2025 14:07-0400 Body height 165.1 cm [facility] 02-10-2025 14:07-0400 Body temperature 98.7 [degF] [facility] 02-10-2025 14:07-0400 Body weight 93 kg [facility] 02-10-2025 14:07-0400 Diastolic blood pressure 82 mm[Hg] [facility] 02-10-2025 14:07-0400 Heart rate 89 /min [facility] 02-10-2025 14:07-0400 Respiratory rate 18 /min [facility] 02-10-2025 14:07-0400 SaO2% (BldA) [Mass fraction] 100 % [facility] 02-10-2025 14:07-0400 Systolic blood pressure 132 mm[Hg] [facility] 01-11-2025 09:38-0500 Body height 167.6 cm Krystal Koehler MD Work Phone: [facility] 01-11-2025 09:38-0500 Body mass index (BMI) [Ratio] 33.57 kg/m2 Krystal Koehler MD Work Phone: [facility] 01-11-2025 09:38-0500 Body weight 94.35 kg Krystal Koehler MD Work Phone: [facility] 01-11-2025 09:38-0500 Diastolic blood pressure 84 mm[Hg] Krystal Koehler MD Work Phone: [facility] 01-11-2025 09:38-0500 Heart rate 84 /min Krystal Koehler MD Work Phone: [facility] 01-11-2025 09:38-0500 Systolic blood pressure 118 mm[Hg] Krystal Koehler MD Work Phone: [facility] 11-22-2024 13:01-0500 Body temperature 98.4 [degF] [facility] 11-22-2024 13:01-0500 Diastolic blood pressure 87 mm[Hg] [facility] 11-22-2024 13:01-0500 Heart rate 93 /min [facility] 11-22-2024 13:01-0500 Respiratory rate 20 /min [facility] 11-22-2024 13:01-0500 SaO2% (BldA) [Mass fraction] 99 % [facility] 11-22-2024 13:01-0500 Systolic blood pressure 136 mm[Hg] [facility] 11-22-2024 12:51-0500 Body height 166.37 cm [facility] 11-22-2024 12:51-0500 Body weight 99 kg [facility] 11-17-2024 00:47-0500 Body height 165.1 cm [facility] 11-17-2024 00:47-0500 Body temperature 97.9 [degF] [facility] 11-17-2024 00:47-0500 Body weight 100.1 kg [facility] 11-17-2024 00:47-0500 Diastolic blood pressure 80 mm[Hg] [facility] 11-17-2024 00:47-0500 Heart rate 80 /min [facility] 11-17-2024 00:47-0500 Respiratory rate 18 /min [facility] 11-17-2024 00:47-0500 SaO2% (BldA) [Mass fraction] 100 % [facility] 11-17-2024 00:47-0500 Systolic blood pressure 132 mm[Hg] [facility] 10-04-2024 00:30-0500 Diastolic blood pressure 73 mm[Hg] Rigoberto Dusty DO Work Phone: [facility] 10-04-2024 00:30-0500 Heart rate 81 /min Rigoberto Dusty DO Work Phone: [facility] 10-04-2024 00:30-0500 Respiratory rate 18 /min Rigoberto Dusty DO Work Phone: [facility] 10-04-2024 00:30-0500 SaO2% (BldA) [Mass fraction] 98 % Rigoberto Dusty DO Work Phone: [facility] 10-04-2024 00:30-0500 Systolic blood pressure 121 mm[Hg] Rigoberto Dusty DO Work Phone: [facility] 10-03-2024 22:50-0500 Body height 167.64 cm Rigoberto Dusty DO Work Phone: [facility] 10-03-2024 22:50-0500 Body temperature 98.5 [degF] Rigoberto Dusty DO Work Phone: [facility] 10-03-2024 22:50-0500 Body weight 104.25 kg Rigoberto Dusty DO Work Phone: [facility] 07-30-2024 11:24-0400 Body mass index (BMI) [Ratio] 37.57 kg/m2 Iris FONTENOT Work Phone: [facility] 07-30-2024 11:24-0400 Body weight 105.6 kg Iris FONTENOT Work Phone: [facility] 07-30-2024 11:24-0400 Diastolic blood pressure 82 mm[Hg] Iris FONTENOT Work Phone: [facility] 07-30-2024 11:24-0400 Systolic blood pressure 120 mm[Hg] Iris FONTENOT Work Phone: [facility] 07-06-2024 10:08-0400 Body height 167.6 cm Krystal Koehler MD Work Phone: [facility] 07-06-2024 10:08-0400 Body mass index (BMI) [Ratio] 36.15 kg/m2 Krystal Koehler MD Work Phone: [facility] 07-06-2024 10:08-0400 Body weight 101.61 kg Krystal Koehler MD Work Phone: [facility] 07-06-2024 10:08-0400 Diastolic blood pressure 72 mm[Hg] Krystal Koehler MD Work Phone: [facility] 07-06-2024 10:08-0400 Heart rate 80 /min Krystal Koehler MD Work Phone: [facility] 07-06-2024 10:08-0400 Systolic blood pressure 120 mm[Hg] Krystal Koehler MD Work Phone: [facility] 04-05-2024 20:42-0400 Body height 165.1 cm PHYSICIAN NO [facility] 04-05-2024 20:42-0400 Body temperature 98 [degF] PHYSICIAN NO [facility] 04-05-2024 20:42-0400 Body weight 105.5 kg PHYSICIAN NO [facility] 04-05-2024 20:42-0400 Diastolic blood pressure 84 mm[Hg] PHYSICIAN NO [facility] 04-05-2024 20:42-0400 Heart rate 82 /min PHYSICIAN NO [facility] 04-05-2024 20:42-0400 Respiratory rate 18 /min PHYSICIAN NO [facility] 04-05-2024 20:42-0400 SaO2% (BldA) [Mass fraction] 99 % PHYSICIAN NO [facility] 04-05-2024 20:42-0400 Systolic blood pressure 126 mm[Hg] PHYSICIAN NO [facility] 03-23-2024 08:58-0400 Body height 165.1 cm Krystal Koehler MD Work Phone: [facility] 03-23-2024 08:58-0400 Body mass index (BMI) [Ratio] 38.61 kg/m2 Krystal Koehler MD Work Phone: [facility] 03-23-2024 08:58-0400 Body weight 105.23 kg Krystal Koehler MD Work Phone: [facility] 03-23-2024 08:58-0400 Diastolic blood pressure 72 mm[Hg] Krystal Koehler MD Work Phone: [facility] 03-23-2024 08:58-0400 Heart rate 82 /min Krystal Koehler MD Work Phone: [facility] 03-23-2024 08:58-0400 Systolic blood pressure 112 mm[Hg] Krystal Koehler MD Work Phone: [facility] 03-20-2024 10:09-0400 Body height 167.6 cm Pacc 2 Work Phone: [facility] 03-20-2024 10:09-0400 Body mass index (BMI) [Ratio] 36.65 kg/m2 Pacc 2 Work Phone: [facility] 03-20-2024 10:09-0400 Body temperature 97.3 [degF] Pacc 2 Work Phone: [facility] 03-20-2024 10:09-0400 Body weight 103 kg Pacc 2 Work Phone: [facility] 03-20-2024 10:09-0400 Diastolic blood pressure 79 mm[Hg] Pacc 2 Work Phone: [facility] 03-20-2024 10:09-0400 Heart rate 97 /min Pacc 2 Work Phone: [facility] 03-20-2024 10:09-0400 Respiratory rate 16 /min Pacc 2 Work Phone: [facility] 03-20-2024 10:09-0400 SaO2% (BldA) [Mass fraction] 99 % Pacc 2 Work Phone: [facility] 03-20-2024 10:09-0400 Systolic blood pressure 127 mm[Hg] Pacc 2 Work Phone: [facility] 10-23-2023 21:18-0500 Diastolic blood pressure 76 mm[Hg] IVONE Marques Work Phone: [facility] 10-23-2023 21:18-0500 Heart rate 80 /min IVONE Marques Work Phone: [facility] 10-23-2023 21:18-0500 Respiratory rate 16 /min IVONE Marques Work Phone: [facility] 10-23-2023 21:18-0500 SaO2% (BldA) [Mass fraction] 99 % IVONE Marques Work Phone: [facility] 10-23-2023 21:18-0500 Systolic blood pressure 131 mm[Hg] IVONE Marques Work Phone: [facility] 10-23-2023 17:23-0500 Body height 167.64 cm IVONE Marques Work Phone: [facility] 10-23-2023 17:23-0500 Body temperature 98.2 [degF] IVONE Marques Work Phone: [facility] 10-23-2023 17:23-0500 Body weight 107.7 kg IVONE Marques Work Phone: [facility] 10-23-2023 15:07-0500 Body height 165.1 cm IVONE Marques Work Phone: [facility] 10-23-2023 15:07-0500 Body temperature 97.8 [degF] IVONE Marques Work Phone: [facility] 10-23-2023 15:07-0500 Body weight 106.65 kg PA-C Ga Marques Work Phone: [facility] 10-23-2023 15:07-0500 Diastolic blood pressure 84 mm[Hg] PA-Johanna Marques Work Phone: [facility] 10-23-2023 15:07-0500 Heart rate 84 /min CORIE-Johanna Marques Work Phone: [facility] 10-23-2023 15:07-0500 Respiratory rate 22 /min PA-C Ga Marques Work Phone: [facility] 10-23-2023 15:07-0500 SaO2% (BldA) [Mass fraction] 100 % IVONE Marques Work Phone: [facility] 10-23-2023 15:07-0500 Systolic blood pressure 155 mm[Hg] CORIE-Johanna Marques Work Phone: [facility] 08-20-2023 12:55-0400 Body height 165.1 cm PA-Johanna Marques Work Phone: [facility] 08-20-2023 12:55-0400 Body temperature 98.5 [degF] IVONE Marques Work Phone: [facility] 08-20-2023 12:55-0400 Body weight 101.2 kg IVONE Marques Work Phone: [facility] 08-20-2023 12:55-0400 Diastolic blood pressure 87 mm[Hg] CORIE-Johanna Marques Work Phone: [facility] 08-20-2023 12:55-0400 Heart rate 86 /min IVONE Marques Work Phone: [facility] 08-20-2023 12:55-0400 Respiratory rate 20 /min IVONE Marques Work Phone: [facility] 08-20-2023 12:55-0400 SaO2% (BldA) [Mass fraction] 99 % PA-C Ga Marques Work Phone: [facility] 08-20-2023 12:55-0400 Systolic blood pressure 138 mm[Hg] PA-C Ga Marques Work Phone: [facility] 07-01-2023 18:06-0400 Body height 165.1 cm PA-Johanna Marques Work Phone: [facility] 07-01-2023 18:06-0400 Body temperature 98.1 [degF] PA-C Ga Marques Work Phone: [facility] 07-01-2023 18:06-0400 Body weight 102.15 kg PA-Johanna Marques Work Phone: [facility] 07-01-2023 18:06-0400 Diastolic blood pressure 90 mm[Hg] PA-Johanna Marques Work Phone: [facility] 07-01-2023 18:06-0400 Heart rate 96 /min PA-Johanna Marques Work Phone: [facility] 07-01-2023 18:06-0400 Respiratory rate 18 /min CORIE-Johanna Marques Work Phone: [facility] 07-01-2023 18:06-0400 SaO2% (BldA) [Mass fraction] 95 % PA-Johanna Marques Work Phone: [facility] 07-01-2023 18:06-0400 Systolic blood pressure 142 mm[Hg] PA-Johanna Marques Work Phone: [facility] 05-23-2023 21:28-0400 Body height 165.1 cm IVONE Marques Work Phone: [facility] 05-23-2023 21:28-0400 Body temperature 98.5 [degF] CORIE-C Ga Marques Work Phone: [facility] 05-23-2023 21:28-0400 Body weight 102.7 kg IVONE Marques Work Phone: [facility] 05-23-2023 21:28-0400 Diastolic blood pressure 75 mm[Hg] IVONE Marques Work Phone: [facility] 05-23-2023 21:28-0400 Heart rate 96 /min IVONE Marques Work Phone: [facility] 05-23-2023 21:28-0400 Respiratory rate 20 /min IVONE Marques Work Phone: [facility] 05-23-2023 21:28-0400 SaO2% (BldA) [Mass fraction] 97 % IVONE Marques Work Phone: [facility] 05-23-2023 21:28-0400 Systolic blood pressure 139 mm[Hg] IVONE Marques Work Phone: [facility] 03-01-2023 10:00-0400 72 1 Ga Marques Work Phone: [facility] [address] [place] Work Phone: Comment on above: [id number] 02-21-2023 14:30-0400 65 1 Ga Marques Work Phone: [facility] [address] [place] Work Phone: Comment on above: [id number] 02-11-2023 09:46-0400 Diastolic blood pressure 70 mm[Hg] Ga Marques Work Phone: [facility] [address] [place] Work Phone: 02-11-2023 09:46-0400 Systolic blood pressure 108 mm[Hg] Ga Marques Work Phone: [facility] [address] DO Work Phone: 02-11-2023 09:45-0400 Body height 167.64 cm Ga Marques Work Phone: [facility] [address] DO Work Phone: 02-11-2023 09:45-0400 Body mass index (BMI) [Ratio] 37.12 kg/m2 Ga Marques Work Phone: [facility] [address] DO Work Phone: 02-11-2023 09:45-0400 Body surface area Derived from formula 2.12 m2 Ga Marques Work Phone: [facility] [address] DO Work Phone: 02-11-2023 09:45-0400 Body weight 104.33 kg Ga Marques Work Phone: [facility] [address] DO Work Phone: 02-11-2023 09:45-0400 Diastolic blood pressure 78 mm[Hg] Ga Marques Work Phone: [facility] [address] DO Work Phone: 02-11-2023 09:45-0400 Heart rate 76 /min Ga Marques Work Phone: [facility] [address] DO Work Phone: 02-11-2023 09:45-0400 Systolic blood pressure 116 mm[Hg] Ga Marques Work Phone: [facility] [address] DO Work Phone: 01-13-2023 03:00-0500 Diastolic blood pressure 79 mm[Hg] IVONE Marques Work Phone: [facility] 01-13-2023 03:00-0500 Heart rate 87 /min PAJosé Marques Work Phone: [facility] 01-13-2023 03:00-0500 Respiratory rate 19 /min IVONE Marques Work Phone: [facility] 01-13-2023 03:00-0500 SaO2% (BldA) [Mass fraction] 99 % IVONE Marques Work Phone: [facility] 01-13-2023 03:00-0500 Systolic blood pressure 149 mm[Hg] PA-Johanna Marques Work Phone: [facility] 01-13-2023 01:05-0500 Body height 165.1 cm IVONE Marques Work Phone: [facility] 01-13-2023 01:05-0500 Body temperature 98.3 [degF] CORIE-Johanna Marques Work Phone: [facility] 01-13-2023 01:05-0500 Body weight 105 kg PA-Johanna Marques Work Phone: [facility] 01-04-2023 13:35-0500 Body height 165.1 cm PAJosé Marques Work Phone: [facility] 01-04-2023 13:35-0500 Body temperature 98.3 [degF] CORIE-Johanna Marques Work Phone: [facility] 01-04-2023 13:35-0500 Body weight 104 kg PA-Johanna Marques Work Phone: [facility] 01-04-2023 13:35-0500 Diastolic blood pressure 76 mm[Hg] IVONE Marques Work Phone: [facility] 01-04-2023 13:35-0500 Heart rate 95 /min IVONE Marques Work Phone: [facility] 01-04-2023 13:35-0500 Respiratory rate 22 /min IVONE Marques Work Phone: [facility] 01-04-2023 13:35-0500 SaO2% (BldA) [Mass fraction] 98 % IVONE Marques Work Phone: [facility] 01-04-2023 13:35-0500 Systolic blood pressure 141 mm[Hg] IVONE Marques Work Phone: [facility] 11-30-2022 02:15-0500 Body height 165.1 cm IVONE Marques Work Phone: [facility] 11-30-2022 02:15-0500 Body weight 104.05 kg IVONE Marques Work Phone: [facility] 11-30-2022 02:14-0500 Body temperature 98.5 [degF] IVONE Marques Work Phone: [facility] 11-30-2022 02:14-0500 Diastolic blood pressure 88 mm[Hg] CORIE-Johanna Marques Work Phone: [facility] 11-30-2022 02:14-0500 Heart rate 95 /min IVONE Marques Work Phone: [facility] 11-30-2022 02:14-0500 Respiratory rate 20 /min IVONE Marques Work Phone: [facility] 11-30-2022 02:14-0500 SaO2% (BldA) [Mass fraction] 99 % PAJosé Marques Work Phone: [facility] 11-30-2022 02:14-0500 Systolic blood pressure 157 mm[Hg] CORIE-Johanna Marques Work Phone: [facility] 09-21-2022 17:16-0400 Diastolic blood pressure 77 mm[Hg] IVONE Marques Work Phone: [facility] 09-21-2022 17:16-0400 Heart rate 72 /min IVONE Marques Work Phone: [facility] 09-21-2022 17:16-0400 Respiratory rate 18 /min IVONE Marques Work Phone: [facility] 09-21-2022 17:16-0400 SaO2% (BldA) [Mass fraction] 100 % IVONE Marques Work Phone: [facility] 09-21-2022 17:16-0400 Systolic blood pressure 126 mm[Hg] CORIE-Johanna Marques Work Phone: [facility] 09-21-2022 15:58-0400 Body height 165.1 cm PA-C Ga Marques Work Phone: [facility] 09-21-2022 15:58-0400 Body temperature 99.3 [degF] PA-Johanna Marques Work Phone: [facility] 09-21-2022 15:58-0400 Body weight 106.59 kg PA-C Ga Marques Work Phone: [facility] 09-13-2022 09:17-0400 Body height 167.64 cm PA-C Ga Marques Work Phone: [facility] 09-13-2022 09:17-0400 Body temperature 98.6 [degF] CORIE-Johanna Marques Work Phone: [facility] 09-13-2022 09:17-0400 Body weight 108.2 kg PA-Johanna Marques Work Phone: [facility] 09-13-2022 09:17-0400 Diastolic blood pressure 92 mm[Hg] PA-Johanna Marques Work Phone: [facility] 09-13-2022 09:17-0400 Heart rate 85 /min IVONE Marques Work Phone: [facility] 09-13-2022 09:17-0400 Respiratory rate 18 /min IVONE Marques Work Phone: [facility] 09-13-2022 09:17-0400 SaO2% (BldA) [Mass fraction] 99 % CORIE-Johanna Marques Work Phone: [facility] 09-13-2022 09:17-0400 Systolic blood pressure 141 mm[Hg] IVONE Marques Work Phone: [facility] 08-03-2022 19:16-0400 Body height 165.1 cm PAJosé Marques Work Phone: [facility] 08-03-2022 19:16-0400 Body temperature 98.5 [degF] PA-C Ga Marques Work Phone: [facility] 08-03-2022 19:16-0400 Body weight 109.25 kg PA-C Ga Marques Work Phone: [facility] 08-03-2022 19:16-0400 Diastolic blood pressure 83 mm[Hg] PA-C Ga Marques Work Phone: [facility] 08-03-2022 19:16-0400 Heart rate 80 /min PA-C Ga Marques Work Phone: [facility] 08-03-2022 19:16-0400 Respiratory rate 18 /min PA-C Ga Marques Work Phone: [facility] 08-03-2022 19:16-0400 SaO2% (BldA) [Mass fraction] 98 % PA-C Ga Marques Work Phone: [facility] 08-03-2022 19:16-0400 Systolic blood pressure 131 mm[Hg] PA-C Ga Marques Work Phone: [facility] 06-29-2022 19:16-0400 Body height 165.1 cm PA-C Ga Marques Work Phone: [facility] 06-29-2022 19:16-0400 Body temperature 99.5 [degF] CORIE-C Ga Marques Work Phone: [facility] 06-29-2022 19:16-0400 Body weight 108.8 kg PA-C Ga Marques Work Phone: [facility] 06-29-2022 19:16-0400 Diastolic blood pressure 90 mm[Hg] PA-C Ga Marques Work Phone: [facility] 06-29-2022 19:16-0400 Heart rate 81 /min CORIE-Johanna Marques Work Phone: [facility] 06-29-2022 19:16-0400 Respiratory rate 18 /min PA-C Ga Marques Work Phone: [facility] 06-29-2022 19:16-0400 SaO2% (BldA) [Mass fraction] 100 % IVONE Marques Work Phone: [facility] 06-29-2022 19:16-0400 Systolic blood pressure 134 mm[Hg] IVONE Marques Work Phone: [facility] 05-26-2022 23:21-0400 Heart rate 82 /min IVONE Marques Work Phone: [facility] 05-26-2022 23:21-0400 Respiratory rate 18 /min IVONE Marques Work Phone: [facility] 05-26-2022 23:21-0400 SaO2% (BldA) [Mass fraction] 99 % IVONE Marques Work Phone: [facility] 05-26-2022 21:17-0400 Body height 167.64 cm IVONE Marques Work Phone: [facility] 05-26-2022 21:17-0400 Body mass index (BMI) [Ratio] 39.5 kg/m2 IVONE Marques Work Phone: [facility] 05-26-2022 21:17-0400 Body temperature 99.2 [degF] IVONE Marques Work Phone: [facility] 05-26-2022 21:17-0400 Body weight 111.13 kg IVONE Marques Work Phone: [facility] 05-26-2022 21:17-0400 Diastolic blood pressure 105 mm[Hg] IVONE Marques Work Phone: [facility] 05-26-2022 21:17-0400 Systolic blood pressure 155 mm[Hg] IVONE Marques Work Phone: [facility] 05-21-2022 14:45-0400 Diastolic blood pressure 90 mm[Hg] IVONE Marques Work Phone: [facility] 05-21-2022 14:45-0400 Heart rate 98 /min IVONE Marques Work Phone: [facility] 05-21-2022 14:45-0400 Respiratory rate 20 /min IVONE Marques Work Phone: [facility] 05-21-2022 14:45-0400 SaO2% (BldA) [Mass fraction] 96 % IVONE Marques Work Phone: [facility] 05-21-2022 14:45-0400 Systolic blood pressure 148 mm[Hg] IVONE Marques Work Phone: [facility] 05-21-2022 13:06-0400 Body height 167.64 cm IVONE Marques Work Phone: [facility] 05-21-2022 13:06-0400 Body mass index (BMI) [Ratio] 39.2 kg/m2 IVONE Marques Work Phone: [facility] 05-21-2022 13:06-0400 Body weight 110.4 kg IVONE Marques Work Phone: [facility] 05-21-2022 12:10-0400 Body temperature 98 [degF] IVONE Marques Work Phone: [facility] 03-08-2022 10:54-0400 Body temperature 98.6 [degF] [facility] 03-08-2022 10:54-0400 Diastolic blood pressure 79 mm[Hg] [facility] 03-08-2022 10:54-0400 Heart rate 86 /min [facility] 03-08-2022 10:54-0400 Respiratory rate 18 /min [facility] 03-08-2022 10:54-0400 SaO2% (BldA) [Mass fraction] 97 % [facility] 03-08-2022 10:54-0400 Systolic blood pressure 124 mm[Hg] [facility] 03-08-2022 10:48-0400 Body height 165.1 cm [facility] 03-08-2022 10:48-0400 Body mass index (BMI) [Ratio] 39.7 kg/m2 [facility] 03-08-2022 10:48-0400 Body weight 108.4 kg [facility] 02-20-2022 20:40-0400 Body temperature 98.1 [degF] [facility] 02-20-2022 20:40-0400 Diastolic blood pressure 75 mm[Hg] [facility] 02-20-2022 20:40-0400 Heart rate 87 /min [facility] 02-20-2022 20:40-0400 Respiratory rate 18 /min [facility] 02-20-2022 20:40-0400 SaO2% (BldA) [Mass fraction] 98 % [facility] 02-20-2022 20:40-0400 Systolic blood pressure 131 mm[Hg] [facility] 02-20-2022 20:38-0400 Body height 165.1 cm [facility] 02-20-2022 20:38-0400 Body mass index (BMI) [Ratio] 40.2 kg/m2 [facility] 02-20-2022 20:38-0400 Body weight 109.76 kg [facility] 01-09-2022 23:43-0500 Body height 165.1 cm [facility] 01-09-2022 23:43-0500 Body mass index (BMI) [Ratio] 39.6 kg/m2 [facility] 01-09-2022 23:43-0500 Body temperature 98 [degF] [facility] 01-09-2022 23:43-0500 Body weight 107.95 kg [facility] 01-09-2022 23:43-0500 Diastolic blood pressure 88 mm[Hg] [facility] 01-09-2022 23:43-0500 Heart rate 91 /min [facility] 01-09-2022 23:43-0500 Respiratory rate 18 /min [facility] 01-09-2022 23:43-0500 SaO2% (BldA) [Mass fraction] 100 % [facility] 01-09-2022 23:43-0500 Systolic blood pressure 153 mm[Hg] [facility] Encounters Encounter Date Encounter Type Care Provider Facility Start: 05-24-2025 End: 05-24-2025 Bamboo flowsheet Iris FONTENOT Work Phone: [facility] Start: 05-24-2025 End: 05-24-2025 Bamboo flowsheet Iris FONTENOT Work Phone: [facility] Start: 05-24-2025 End: 05-24-2025 Patient encounter procedure Iris FONTENOT Work Phone: [facility] Start: 05-24-2025 End: 05-24-2025 Periodic preventive med est patient 40-64yrs Iris FONTENOT Work Phone: [facility] Comment on above: Breast tenderness in female (Primary Dx); Well woman exam with routine gynecological exam; Encounter for screening mammogram for malignant neoplasm of breast Start: 05-06-2025 End: 05-06-2025 ambulatory PHYSICIAN NO FAMILY Facility:[facility] Start: 05-03-2025 End: 05-03-2025 Bamboo flowsheet Rigoberto Dusty DO Work Phone: [facility] Start: 05-03-2025 End: 05-06-2025 Bamboo flowsheet Rigoberto Dusty DO Work Phone: [facility] Start: 05-03-2025 End: 05-06-2025 External Result Encounter Rigoberto Dusty DO Work Phone: [facility] External Department Unsolicited Start: 05-03-2025 End: 05-03-2025 Office outpatient visit 15 minutes Rigoberto Dusty DO Work Phone: [facility] Comment on above: Type 2 diabetes karol itus with other skin complications (Primary Dx); Pelvic pain in female; Yeast infection Start: 05-03-2025 End: 05-03-2025 ambulatory RIGOBERTO DUSTY Not Available Start: 04-15-2025 End: 04-15-2025 Emergency department patient visit [facility] Work Phone: Start: 03-23-2025 End: 03-23-2025 Emergency department patient visit [facility] Work Phone: Start: 03-20-2025 End: 03-20-2025 Emergency department patient visit [facility] Work Phone: Start: 02-10-2025 End: 02-10-2025 Emergency department patient visit [facility] Work Phone: Start: 01-11-2025 End: 01-11-2025 Office outpatient visit 25 minutes Krystal Koehler MD Work Phone: [facility] Comment on above: Primary hypertension ; Diabetes mellitus type II, non insulin dependent (Multi); Mixed hyperlipidemia; Hypokalemia; BMI 33.0-33.9,adult; Smoker Start: 01-11-2025 End: 01-11-2025 ambulatory [facility] Start: 01-04-2025 End: 01-04-2025 ambulatory [facility] Facility:[facility] Start: 01-04-2025 End: 01-04-2025 Patient encounter procedure Eulalia Fuentes DPM Work Phone: Orthopaedics Comment on above: DM (diabetes mellitu s), type 2 with neurological complications (HCC) (Primary Dx); Hyperkeratosis; Pain in both feet; Eversion deformity of foot, left; Acquired dysmorphic toenail Start: 12-04-2024 End: 12-04-2024 ambulatory EULALIA FUENTES Facility:[facility] Start: 12-04-2024 End: 12-04-2024 Patient encounter procedure Eulalia Fuentes DPMyles Work Phone: Orthopaedics Comment on above: Eversion deformity o f foot, left (Primary Dx); Pain in both feet; Diabetes mellitus type 2 with neurological manifestations (HCC); Difficulty walking; Fibromyalgia; History of foot surgery; Hyperkeratosis; Chronic pain of left ankle; Neuralgia of left lower extremity; DM (diabetes mellitus), type 2 with neurological complications (HCC) Start: 11-22-2024 End: 11-22-2024 Emergency department patient visit [facility] Work Phone: Start: 11-17-2024 End: 11-17-2024 Emergency department patient visit [facility] Work Phone: Start: 10-05-2024 End: 10-05-2024 ambulatory EULALIA GINA Facility:[facility] Start: 10-05-2024 End: 10-05-2024 Patient encounter procedure Eulalia Fuentes DPM Work Phone: Orthopaedics Comment on above: Painful scar (Primar y Dx); DM (diabetes mellitus), type 2 with neurological complications (HCC); Neuralgia of left lower extremity; Chronic pain of left ankle; Hyperkeratosis; History of foot surgery; Fibromyalgia Start: 10-03-2024 End: 10-04-2024 Emergency department patient visit Rigoberto Marinalexie HILLS Work Phone: [facility] Work Phone: Start: 08-31-2024 End: 08-31-2024 ambulatory [facility] Facility:[facility] Start: 08-31-2024 End: 08-31-2024 Patient encounter procedure Eulalia Fuentes DPM Work Phone: Orthopaedics Comment on above: Left foot pain (Prim cnoor Dx); Post-operative state; Difficulty walking; Painful scar; Diabetes mellitus type 2 with neurological manifestations (HCC) Start: 08-20-2024 End: 08-20-2024 ambulatory RIGOBERTO MONTANO Not Available Start: 08-07-2024 End: 08-07-2024 Telephone encounter Eulalia Fuentes DPM Work Phone: Orthopaedics Comment on above: FMLA Paperwork Start: 07-30-2024 End: 07-30-2024 Bamboo flowsheet Iris FONTENOT Work Phone: [facility] Start: 07-30-2024 End: 07-30-2024 Bamboo flowsheet Iris FONTENOT Work Phone: [facility] Start: 07-30-2024 End: 08-03-2024 Telephone encounter Eulalia Gina DPM Work Phone: Orthopaedics Comment on above: Patient Question Start: 07-30-2024 End: 07-30-2024 Postop follow up visit related to original px Iris Mali PA Work Phone: [facility] Comment on above: Postoperative examin ation Start: 07-30-2024 End: 07-30-2024 ambulatory IRIS SAMSON Not Available Start: 07-22-2024 End: 07-22-2024 ambulatory EULALIA FUENTES Facility:[facility] Start: 07-22-2024 End: 07-22-2024 Patient encounter procedure Eulalia Fuentes DPM Work Phone: Orthopaedics Comment on above: Post-operative state (Primary Dx) Start: 07-16-2024 End: 07-16-2024 Clinisync Result Encounter Rigoberto Dusty DO Work Phone: [facility] External Department Unsolicited Start: 07-16-2024 End: 07-16-2024 Clinisync Result Encounter Rigoberto Dusty DO Work Phone: [facility] External [facility] Unsolicited Start: 07-16-2024 End: 07-16-2024 ambulatory NON STAFF [facility] Work Phone: Start: 07-16-2024 End: 07-16-2024 Departed Referred DO Rigoberto Dusty Work Phone: [facility] Start: 07-10-2024 Telephone encounter Eulalia Fuentes DPM Work Phone: Orthopaedics Comment on above: Disability Start: 07-06-2024 End: 07-06-2024 Office outpatient visit 25 minutes Krystal Koehler MD Work Phone: [facility] Comment on above: Medication course ch anged (Primary Dx); Primary hypertension; Diabetes mellitus type II, non insulin dependent (Multi); Hyperlipidemia, unspecified hyperlipidemia type; Smoker; Preop cardiovascular exam Start: 07-06-2024 End: 07-06-2024 Patient encounter status Krystal Koehler MD Work Phone: [facility] Work Phone: Start: 07-06-2024 End: 07-06-2024 ambulatory [facility] Start: 07-06-2024 End: 07-06-2024 Encounter for preprocedural cardiovascular examination [facility] Start: 06-23-2024 End: 06-23-2024 ambulatory EULALIA FUENTES Facility:[facility] Start: 06-23-2024 End: 06-23-2024 Patient encounter procedure Eulalia Fuentes DPM Work Phone: Podiatry Comment on above: Post-operative state (Primary Dx) Start: 06-11-2024 End: 06-11-2024 ambulatory RIGOBERTO DUSTY Not Available Start: 06-08-2024 End: 06-08-2024 ambulatory Eulalia Feuntes DPM Work Phone: Orthopaedics Comment on above: Post-operative state (Primary Dx) Start: 06-08-2024 End: 06-08-2024 Telemedicine consultation with patient Eulalia Fuentes DPM Work Phone: Orthopaedics Start: 06-05-2024 Telephone encounter Eulalia Fuentes DPM Work Phone: Orthopaedics Comment on above: Patient Update Start: 05-26-2024 ambulatory ARMIN LUZJOSEBren Facilit y:EU Yesenia Start: 05-20-2024 End: 05-20-2024 ambulatory EULALIA FUENTES Facility:[facility] Start: 05-20-2024 End: 05-20-2024 Patient encounter procedure Eulalia Fuentes DPM Work Phone: Orthopaedics Comment on above: Post-operative state (Primary Dx) Start: 05-19-2024 End: 05-19-2024 ambulatory RIGOBERTO DUSTY Not Available Start: 05-11-2024 Telephone encounter Eulalia Fuentes DPM Work Phone: Orthopaedics Start: 05-07-2024 End: 05-07-2024 ambulatory EULALIA FUENTES Facility:[facility] Start: 05-07-2024 End: 05-07-2024 Patient encounter procedure Eulalia Fuentes DPM Work Phone: Orthopaedics Comment on above: Post-operative state (Primary Dx) Start: 05-05-2024 Telephone encounter Eulalia Fuentes DPM Work Phone: Orthopaedics Comment on above: FMLA Paperwork Start: 04-27-2024 End: 04-27-2024 ambulatory EULALIA FUENTES Facility:[facility] Start: 04-27-2024 End: 04-27-2024 Patient encounter procedure Eulalia Fuentes DPMyles Work Phone: Orthopaedics Comment on above: Difficulty walking ( Primary Dx); Right foot pain; Painful scar; Neuritis of left lower extremity; Fibromyalgia Start: 04-24-2024 End: 04-24-2024 ambulatory PHYSICIAN NO [facility] Work Phone: Start: 04-24-2024 End: 04-24-2024 Patient encounter procedure PHYSICIAN NO [facility] [place] Work Phone: Start: 04-14-2024 Telephone encounter [facility] Lizzy mathews 1 Work Phone: Pre Anesthesia Start: 04-06-2024 Telephone encounter Eulalia Fuentes DPM Work Phone: Podiatry Comment on above: surgery question and infected toe Start: 04-05-2024 End: 04-05-2024 Emergency department patient visit PHYSICIAN NO [facility]-Emergency Room Work Phone: Start: 03-24-2024 Telephone encounter Eulalia Fuentes DPM Work Phone: Orthopaedics Start: 03-23-2024 End: 03-23-2024 Office outpatient visit 25 minutes Krystal Koehler MD Work Phone: [facility] Comment on above: Medication course ch anged (Primary Dx); Diabetes mellitus type II, non insulin dependent (Multi); Anemia, unspecified type; Primary hypertension; BMI 38.0-38.9,adult; Smoker; Hyperlipidemia, unspecified hyperlipidemia type Start: 03-20-2024 Encounter for other preprocedural examination SEVERIANO VIRK [facility] Start: 03-20-2024 End: 03-20-2024 Admission to [facility] 2 Work Phone: Pre Anesthesia Start: 03-20-2024 End: 03-20-2024 ambulatory SEVERIANO VIRK Facility:[facility] Start: 03-20-2024 End: 03-20-2024 Anesthesia consultation [facility] Be[facility]semeli Barajas Work Phone: Pre Anesthesia Comment on above: Pre-op evaluation (P rimary Dx); Hyperlipidemia, unspecified hyperlipidemia type; Type 2 diabetes mellitus with other specified complication, without long-term current use of insulin ([facility]); Fibromyalgia; Migraine without status migrainosus, not intractable, unspecified migraine type; Cigarette nicotine dependence without complication; Mild intermittent asthma without complication; Obstructive sleep apnea of adult; Gastro-esophageal reflux disease without esophagitis; Class 2 severe obesity due to excess calories with serious comorbidity and body mass index (BMI) of 36.0 to 36.9 in adult ([facility]) Start: 03-20-2024 End: 03-20-2024 Preprocedural examination done [place] [id number] Work Phone: [facility] Work Phone: Start: 03-17-2024 ambulatory Eulalia Fuentes DPM Work Phone: Orthopaedics Comment on above: My toes look infecte d Start: 03-17-2024 Telephone encounter Eulalia WHITFIELDM Work Phone: [facility] Comment on above: Patient Update; Kelsie ent Question Start: 03-11-2024 End: 03-11-2024 ambulatory Samara Greco PT, DPT Work Phone: [facility] Comment on above: Type 2 diabetes karol itus with diabetic polyneuropathy, unspecified whether mcfp insulin use ([facility]); BMI 39.0-39.9,adult; Difficulty walking; Eversion deformity of foot, left; Painful scar Start: 03-09-2024 End: 03-09-2024 ambulatory EULALIA FUENTES Facility:[facility] Start: 03-09-2024 End: 03-09-2024 Patient encounter procedure Eulalia WHITFIELDM Work Phone: Orthopaedics Comment on above: Ingrown toenail (Ivonne rola Dx); Pain in both feet; Acquired dysmorphic toenail; History of foot surgery; Diabetes mellitus type 2 with neurological manifestations (HCC); BMI 39.0-39.9,adult; Fibromyalgia; Eversion deformity of foot, left Start: 02-04-2024 ambulatory Eulalia Gina WILL Work Phone: Orthopaedics Start: 02-04-2024 Telephone encounter Eulalia Fuentes WILL Work Phone: Orthopaedics Comment on above: Surgical Followup Start: 02-03-2024 End: 02-03-2024 ambulatory EULALIA FUENTES Facility:[facility] Start: 02-03-2024 End: 02-03-2024 Patient encounter procedure Eulalia Fuentes NAHIDM Work Phone: Orthopaedics Comment on above: Ingrown toenail (Ivonne rola Dx); History of foot surgery; Diabetes mellitus type 2 with neurological manifestations (HCC); Painful scar; Acquired dysmorphic toenail; Eversion deformity of foot, left; Hyperkeratosis Start: 01-25-2024 End: 01-25-2024 Patient encounter procedure PHYSICIAN TREY DEVLIN [facility] [place] Work Phone: Start: 01-14-2024 Telephone encounter Eulalia Fuentes NAHIDM Work Phone: Orthopaedics Comment on above: Schedule Surgery Start: 01-03-2024 End: 01-03-2024 Patient encounter procedure Eulalia Fuentes NAHIDM Work Phone: Orthopaedics Comment on above: History of foot surg slade (Primary Dx); Eversion deformity of foot, left; Hyperkeratosis; Neuritis of left lower extremity; Diabetes mellitus type 2 with neurological manifestations (HCC); Difficulty walking; Painful scar; Pain in both feet; Neuralgia of left lower extremity; Chronic pain of left ankle; Acquired dysmorphic toenail Start: 11-20-2023 End: 11-20-2023 ambulatory IVONE Marques Work Phone: [facility] Work Phone: Start: 11-20-2023 End: 11-20-2023 Patient encounter procedure IVONE Marques Work Phone: [facility] Work Phone: Start: 11-01-2023 ambulatory Julianna Rice Clair mathews RT(R) Radiology Comment on above: Radiology XR Start: 11-01-2023 End: 11-01-2023 Patient encounter procedure Julianna Pollard RT(R) [facility] [place] Comment on above: Eversion deformity o f foot, left (Primary Dx); Hyperkeratosis; Neuritis of left lower extremity; History of foot surgery; Diabetes mellitus type 2 with neurological manifestations (HCC); Difficulty walking; Painful scar Start: 11-01-2023 End: 11-01-2023 Subsequent hospital visit by physician Torrie Lama Work Phone: Radiology Comment on above: Pain in left foot [M 79.672] Start: 10-23-2023 End: 10-23-2023 Emergency department patient visit IVONE Marques Work Phone: [facility] Work Phone: Start: 10-23-2023 End: 10-23-2023 Emergency department patient visit IVONE Marques Work Phone: [facility] Work Phone: Start: 08-20-2023 End: 08-20-2023 Emergency department patient visit IVONE Marques Work Phone: [facility] Work Phone: Start: 07-01-2023 End: 07-01-2023 Emergency department patient visit IVONE Marques Work Phone: [facility] Work Phone: Start: 05-23-2023 End: 05-23-2023 Emergency department patient visit IVONE Marques Work Phone: [facility] Work Phone: Start: 03-28-2023 Encounter for preprocedural laboratory examination GA MARQUES [facility] Start: 03-25-2023 End: 03-26-2023 Encounter for preprocedural laboratory examination [facility] Facility:H1 Start: 03-25-2023 End: 03-26-2023 ambulatory [facility] Facility:H1 Start: 03-15-2023 Chart Update Ga Marques Work Phone: [facility] [address] DO Work Phone: Start: 03-15-[address] Krystal Paulino ty:[id number] Start: 03-01-2023 Patient encounter procedure Ga Marques Work Phone: [facility] [address] [place] Work Phone: Start: 03-01-[address] Krystal Paulino ty:[id number] Start: 02-21-2023 Patient encounter procedure Ga Marques Work Phone: [facility] [address] [place] Work Phone: Start: 02-21-[address] Krystal Paulino ty:[id number] Start: 02-18-2023 Chart Update Ga Marques Work Phone: [facility] 250 DO Work Phone: Start: 02-18-2023 End: 02-18-2023 ambulatory IVONE Marques Work Phone: [facility] Work Phone: Start: 02-18-2023 End: 02-18-2023 Patient encounter procedure IVONE Marques Work Phone: [facility] [place] Work Phone: Start: 02-12-2023 ECHO, Provider: RADHA CHANEY ULTRASOUND 01,[id number], Status: Pen, Time: 10:45 AM Ga Marques Work Phone: [facility] 250 DO Work Phone: Start: 02-11-2023 Office consultation new/estab patient 60 min Ga Marques Work Phone: [facility] 250 DO Work Phone: Start: 02-11-2023 ambulatory Krystal Koehler Facility:1 [id number] Start: 02-07-2023 ambulatory Joe Meek Faci lity:[id number] Start: 01-13-2023 End: 01-13-2023 Emergency department patient visit IVONE Marques Work Phone: [facility] Work Phone: Start: 01-04-2023 ambulatory [facility] Facility:[facility] Start: 01-04-2023 End: 01-04-2023 Emergency department patient visit IVONE Marques Work Phone: [facility] Work Phone: Start: 01-02-[address] RIGOBERTO MONTANO . Facili ty:H1 Start: 12-28-2022 End: 12-29-[address] RIGOBERTO MONTANO . Facility:H1 Start: 12-13-[address] RIGOBERTO MONTANO . Facili ty:H1 Start: 12-08-2022 End: 12-08-2022 ambulatory IVONE Marques Work Phone: [facility] Work Phone: Start: 12-08-2022 End: 12-08-2022 Patient encounter procedure IVONE Marques Work Phone: [facility] [place] Work Phone: Start: 12-04-2022 End: 12-04-[address] RIGOBERTO MONTANO . Facility:H1 Start: 12-01-2022 End: 12-01-2022 ambulatory IVONE Marques Work Phone: [facility] Work Phone: Start: 12-01-2022 End: 12-01-2022 Patient encounter procedure IVONE Marques Work Phone: [facility] [place] Work Phone: Start: 11-30-2022 End: 11-30-2022 Emergency department patient visit IVONE Marques Work Phone: [facility] Work Phone: Start: 10-04-[address] RIGOBERTO MONTANO . Facili ty:H1 Start: 09-21-2022 End: 09-21-2022 Emergency department patient visit IVONE Marques Work Phone: [facility] Start: 09-13-2022 End: 09-13-2022 Emergency department patient visit IVONE Marques Work Phone: [facility] Start: 08-15-2022 End: 08-15-2022 Patient encounter [facility]ques [facility] Start: 08-03-2022 End: 08-03-2022 Emergency department patient visit IVONE Marques Work Phone: [facility] Start: 07-21-2022 End: 07-21-2022 Patient encounter procedure IVONE Marques [facility] Start: 07-09-2022 End: 07-09-2022 Patient encounter procedure [...] department patient visit IVONE Marques Work Phone: [facility] Start: 06-15-[address] RIGOBERTO MONTANO . Facili ty:H1 Start: 06-15-2022 End: 06-15-2022 Patient encounter procedure IVONE Marques [facility] [place] Start: 05-26-2022 End: 05-26-2022 Emergency department patient visit IVONE Marques Work Phone: [facility] Start: 05-21-2022 End: 05-21-2022 Admission to same day surgery center IVONE Marques Work Phone: [facility]gery [facility] Start: 05-17-2022 End: 05-17-2022 Patient encounter procedure IVONE Marques Work Phone: [facility]Pre-Surgical Testing Start: 05-11-2022 End: 05-11-2022 Patient encounter procedure IVONE Marques Work Phone: [facility] Start: 04-30-2022 End: 04-30-2022 Patient encounter procedure Eulalia Fuentes DPM Work Phone: Orthopaedics Comment on above: Hyperkeratosis (Prim conor Dx); Neuritis of left lower extremity; Neuralgia of left lower extremity; History of foot surgery; Diabetes mellitus type 2 with neurological manifestations (HCC) Start: 03-17-2022 End: 03-17-2022 Patient encounter procedure [facility] Start: 03-08-2022 End: 03-08-2022 Emergency department patient visit [facility] Start: 02-23-2022 Telephone encounter Eulalia Gina DPMyles Work Phone: [address] [place] [address] Comment on above: Patient Question Start: 02-20-2022 End: 02-20-2022 Emergency department patient visit [facility] Start: 01-09-2022 End: 01-10-2022 Emergency department patient visit [facility] Preoperative state Ga mathews Work Phone: -[facility] [address] DO Work Phone: Procedures Date Procedure Procedure Detail Performing Clinician Start: 05-03-2025 RECURRENT VAGINITIS (HTRX) Rigoberto Montano DO Work Phone: Start: 05-03-2025 Urnls dip stick/tabl et rgnt non-auto w/o micrscp Rigoberto Dusty DO Work Phone: Start: 02-10-2025 CT of abdomen and pe lvis without contrast Start: 11-22-2024 X-ray of right foot Start: 07-16-2024 ALL CBC WITH AUTO DIFF Rigoberto Dusty DO Work Phone: Start: 04-24-2024 Pelvic echography PHYSI JARED NO FAMILY Start: 04-24-2024 Transvaginal echography PHYSICIAN NO FAMILY Start: 01-25-2024 Pelvic echography PHYSI JARED NO FAMILY Start: 11-20-2023 Screening mammograph y of bilateral breasts PA-Johanna Marques Work Phone: Start: 11-01-2023 Radex foot complete minimum 3 views Eulalia Fuentes DPM Work Phone: Start: 10-23-2023 CT of abdomen and pe lvis without contrast PAJosé Marques Work Phone: Start: 05-23-2023 Plain X-ray of bilat eral femurs PA-Johanna Marques Work Phone: Start: 02-21-2023 Echocardiography Ga Marques Work Phone: Start: 01-13-2023 Plain chest X-ray CORIE-Johanna Marques Work Phone: Start: 12-08-2022 Pelvic echography IVONE Marques Work Phone: Start: 12-04-2022 Microscopic observat ion [Identifier] in Cervix by Cyto stain Krystal Koehler MD Work Phone: Start: 11-30-2022 Plain X-ray of left hand PA-Johanna Marques Work Phone: Start: 09-21-2022 Plain chest X-ray PA-Johanna Marques Work Phone: Start: 09-13-2022 Plain X-ray of left shoulder PAJosé Marques Work Phone: Start: 06-29-2022 Plain X-ray of left wrist PA-Johanna Marques Work Phone: Start: 05-21-2022 OR Wound Debridement/I&D/Hydradenit is (Right) IVONE Marques Work Phone: Start: 03-08-2022 X-ray of lumbar spin e, four or more views Start: 11-01-2021 H/O: tubal ligation Tubal liga tion status Eulalia Fuentes DPM Work Phone: Excision of neoplasm Ga Marques Work Phone: Ligation of fallopian tube T homas Krystal Shelli Work Phone: Operation on gallbladder Tho sandra Rice Shelli Work Phone: Operative procedure on foot Ga Marques Work Phone: Procedure on abdomen Ga Marques Work Phone: Urine culture IVONE Storey Work Phone: NEGATED: Highlighted row has not occurred! Colonoscopy Ga Krystal Shelli Work Phone: Plan of Treatment Date Care Activity Detail Author Start: 2033 Zoster Vaccines (1 o f 2) Zoster Vaccines (1 of 2) [facility] Start: 02-08-2032 DTaP/Tdap/Td Vaccine s (2 - Td or Tdap) DTaP/Tdap/Td Vaccines (2 - Td or Tdap) [facility] Start: 02-08-2032 Urine microalbumin profile DTaP,Tdap,Td Vaccine (2 - Td or Tdap) [facility] Start: 12-04-2027 Screening for malign ant neoplasm of cervix [facility] Start: 12-27-2025 End: 12-27-2025 Patient encounter procedure 12/27/2025 10:00 AM EST Office Visit [facility] [address] [facility] [address] [place] [address] Krystal Koehler MD [address] [facility] [address] [place], [place] [id number] [facility] Start: 12-04-2025 Screening for malign ant neoplasm of cervix [facility] Start: 07-26-2025 Influenza vaccination Influenz a Vaccine (Season Ended) [facility] Start: 06-01-2025 End: 06-01-2025 Patient encounter procedure 06/01/2025 10:50 AM EDT Office Visit [facility] [address] [place] [phone] Rigoberto Montano, DO [address] [place] [address] [facility] Start: 05-24-2025 End: 07-24-2026 MG Breast - bilateral Diagnostic Bilateral diagnostic mammogram Imaging Routine Breast tenderness in female Expected: 05/24/2025 (Approximate), Expires: 07/24/2026 [facility] Work Phone: Comment on above: Expected: 05/24/2025 (Approximate), Expires: 07/24/2026 Start: 05-24-2025 End: 05-24-2025 Patient encounter procedure [facility] Comment on above: Arrived Start: 05-03-2025 End: 05-03-2026 Hemoglobin A1c/Hemoglobin.total in Blood Hemoglobin A1c Lab Routine Type 2 diabetes mellitus with other skin complications Expected: 05/03/2025 (Approximate), Expires: 05/03/2026 [facility] Comment on above: Expected: 05/03/2025 (Approximate), Expires: 05/03/2026 Start: 05-03-2025 End: 11-02-2025 US Pelvis US Pelvis w/ TV Imaging Routine Pelvic pain in female Expected: 05/03/2025, Expires: 11/02/2025 [facility] Work Phone: Comment on above: Expected: 05/03/2025 , Expires: 11/02/2025 Start: 05-03-2025 End: 05-03-2025 Patient encounter procedure 05/03/2025 11:10 AM EDT Office Visit [facility] [address] [place] [phone] Rigoberto Montano, DO [address] [place], [place] [id number] Arrived [facility] Comment on above: Arrived Start: 02-08-2025 End: 02-08-2025 Patient encounter procedure 02/08/2025 9:30 AM EDT Office Visit Orthopaedics [address] [place] [address] Eulalia Fuentes DPM [address] [place] [address] Left foot follow up Orthopaedics Comment on above: Left foot follow up Start: 01-11-2025 End: 01-11-2026 Basic metabolic 2000 panel - Serum or Plasma Basic Metabolic Panel Lab Routine Primary hypertension Diabetes mellitus type II, non insulin dependent (Multi) Mixed hyperlipidemia Hypokalemia Expected: 01/11/2025, Expires: 01/11/2026 [facility] Work Phone: Comment on above: Expected: 01/11/2025 , Expires: 01/11/2026 Start: 01-11-2025 End: 01-11-2026 Comprehensive metabolic 2000 panel - Serum or Plasma Comprehensive Metabolic Panel Lab Routine Primary hypertension Diabetes mellitus type II, non insulin dependent (Multi) Mixed hyperlipidemia Hypokalemia Expected: 01/11/2025, Expires: 01/11/2026 [facility] Work Phone: Comment on above: Expected: 01/11/2025 , Expires: 01/11/2026 Start: 01-11-2025 End: 01-11-2026 Lipid 1996 panel - Serum or Plasma Lipid Panel Lab Routine Mixed hyperlipidemia Expected: 01/11/2025, Expires: 01/11/2026 [facility] Service Area Work Phone: Comment on above: Expected: 01/11/2025 , Expires: 01/11/2026 Start: 01-11-2025 End: 01-11-2025 Patient encounter procedure 01/11/2025 10:00 AM EST Office Visit [facility] [address] [facility] [address] [place] [address] Krystal Koehler MD [address] [facility] [address] [place] [address] [facility] Start: 01-04-2025 End: 01-04-2025 Patient encounter procedure 01/04/2025 9:30 AM EST Office Visit Orthopaedics [address] [place] [address] Eulalia Fuentes DPM [address] [facility] [place] [address] Left foot follow up Orthopaedics Comment on above: Left foot follow up Start: 11-30-2024 End: 11-30-2024 Patient encounter procedure 11/30/2024 9:20 AM EST Office Visit [facility] [address] [place] [id number] Rigoberto Montano DO [address] [facility] [place] [address] [facility] Start: 11-06-2024 End: 11-06-2024 Patient encounter procedure 11/06/2024 10:45 AM EST Office Visit Orthopaedics [address] [place] [address] Eulalia Fuentes DPM [address] [place] [address] Left foot follow up Orthopaedics Comment on above: Left foot follow up Start: 10-03-2024 Plain chest X-ray XR chest 1V portab [facility] Start: 10-03-2024 XR Chest Single view [facility] Start: 08-31-2024 End: 08-31-2024 Patient encounter procedure 08/31/2024 10:00 AM EDT Office Visit Orthopaedics [address] [place] [address] Eulalia Fuentes DPM [address] [place] [address] Post op 12 wks left foot, SX 05/01/24 Orthopaedics Comment on above: Post op 12 wks left foot, SX 05/01/24 Start: 07-30-2024 End: 07-30-2024 Patient encounter procedure 07/30/2024 10:40 AM EDT Office Visit [facility] [address] [place] [address] Iris Samson PA [address] [facility] [address] [place] [address] Arrived [facility] Comment on above: Arrived Start: 07-26-2024 COVID-19 Vaccine ( season) COVID-19 Vaccine ( season) [facility] Start: 07-26-2024 Covid-19 Vaccine ( season) Covid-19 Vaccine ( season) [facility] Start: 07-26-2024 Covid-19 Vaccine () Covid-19 Vaccine () [facility] Start: 07-26-2024 Influenza vaccination [facility] Start: 07-13-2024 End: 07-13-2024 Patient encounter procedure Orthopaedics Comment on above: Post op 12 wks left foot, SX 05/01/24 Start: 07-06-2024 End: 07-06-2025 Comprehensive metabolic 2000 panel - Serum or Plasma Comprehensive Metabolic Panel Lab Routine Primary hypertension Expected: 07/06/2024 (Approximate), Expires: 07/06/2025 [facility] Service Area Work Phone: Comment on above: Expected: 07/06/2024 (Approximate), Expires: 07/06/2025 Start: 07-06-2024 End: 07-06-2025 Lipid 1996 panel - Serum or Plasma Lipid Panel Lab Routine Hyperlipidemia, unspecified hyperlipidemia type Expected: 07/06/2024 (Approximate), Expires: 07/06/2025 [facility] Work Phone: Comment on above: Expected: 07/06/2024 (Approximate), Expires: 07/06/2025 Start: 07-06-2024 End: 07-06-2024 Patient encounter procedure 07/06/2024 10:00 AM EDT Office Visit [facility] [address] [place] [address] [address] [place] [address] Krystal Koehler MD [address] [facility] [address] [place] [address] [facility] Start: 06-29-2024 End: 06-29-2024 Patient encounter procedure 06/29/2024 1:15 PM EDT Office Visit Orthopaedics [address] [place] [address] Eulalia Fuentes DPM [address] [place] [address] Post Op 12 wks Left foot Sx 04/10/24 Orthopaedics Comment on above: Post Op 12 wks Left foot Sx 04/10/24 Start: 06-19-2024 Hemoglobin A1c measurement [facility] Start: 06-17-2024 End: 06-17-2024 Patient encounter procedure 06/17/2024 9:45 AM EDT Office Visit Orthopaedics [address] [place] [address] Eulalia Fuentes DPM [address] [place] [address] Post op 6 wks left foot, SX 05/01/24 Orthopaedics Comment on above: Post op 6 wks left f oot, SX 05/01/24 Start: 06-08-2024 End: 06-08-2024 Patient encounter procedure 06/08/2024 11:30 AM EDT Office Visit Orthopaedics [address] [place] [address] Eulalia Fuentes DPM [address] [place] [address] Post op 6 wks left foot, SX 05/01/24 Orthopaedics Comment on above: Post op 6 wks left f oot, SX 05/01/24 Start: 06-08-2024 End: 06-08-2024 ambulatory 06/08/2024 8:15 AM EDT [facility] Orthopaedics [address] [place] [address] Eulalia Fuentes DPM [address] [place] [address] Post op 6 wks left foot, SX 05/01/24 Orthopaedics Comment on above: Post op 6 wks left f oot, SX 05/01/24 Start: 06-08-2024 End: 06-08-2024 Patient encounter procedure 06/08/2024 8:15 AM EDT Office Visit Orthopaedics [address] [place] [address] Eulalia Fuentes DPM [address] [place] [address] Post op 6 wks left foot, SX 05/01/24 Orthopaedics Comment on above: Post op 6 wks left f oot, SX 05/01/24 Start: 05-21-2024 End: 05-21-2024 Patient encounter procedure 05/21/2024 1:15 PM EDT Office Visit Orthopaedics [address] [place] [address] Eulalia Fuentes DPM [address] [place] [address] Post Op 6 wks Left foot Sx 04/10/24 Orthopaedics Comment on above: Post Op 6 wks Left f oot Sx 04/10/24 Start: 05-20-2024 End: 05-20-2024 Patient encounter procedure 05/20/2024 11:30 AM EDT Office Visit Orthopaedics [address] [place] [address] Eulalia Fuentes DPM [address] [place] [address] Post op 3 wks left foot, SX 05/01/24 Orthopaedics Comment on above: Post op 3 wks left f oot, SX 05/01/24 Start: 05-07-2024 End: 05-07-2024 Patient encounter procedure 05/07/2024 10:15 AM EDT Office Visit Orthopaedics [address] [place] [address] Eulalia Fuentes DPM [address] [place] [address] Post op left foot, SX 05/01/24 Orthopaedics Comment on above: Post op left foot, S X 05/01/24 Start: 05-04-2024 End: 05-04-2024 Patient encounter procedure 05/04/2024 1:15 PM EDT Office Visit Orthopaedics [address] [place] [address] Eulalia Fuentes DPM [address] [place], [place] [id number] Post Op 3 wks Left foot Sx 04/10/24 Orthopaedics Comment on above: Post Op 3 wks Left f oot Sx 04/10/24 Start: 05-01-2024 End: 05-01-2024 Admission to same day surgery center 05/01/2024 7:30 AM EDT - 05/01/2024 9:10 AM EDT Surgery Ambulatory Surgery [address] [place] [address] Eulalia Fuentes DPM [address] [place] [address] EXCISION BENIGN CYST/MASS LESION LOWER EXTREMITY < [...] Painful scar Hyperkeratosis 05/01/2024 7:30 AM EDT [facility] Start: 05-01-2024 Subsequent hospital visit by physician 05/01/2024 7:30 AM EDT Hospital Encounter Ambulatory Surgery [address] [place] [address] Eulalia Fuentes DPM [address] [place] [address] History of foot surgery [Z98.890] Ambulatory Surgery Comment on above: History of foot surg slade [Z98.890] Start: 05-01-2024 End: 05-01-2024 Patient encounter procedure 05/01/2024 7:00 AM EDT Office Visit Pre Admission Testing [address] [place] [address] Gina- update Pre Admission Testing Comment on above: Gina- update Start: 04-27-2024 End: 04-27-2024 Patient encounter procedure 04/27/2024 11:45 AM EDT Office Visit Orthopaedics [address] [facility] [place] [place] [address] Eulalia Fuentes DPM [address] [facility] [place] [address] Pre-op per JOSSY Castellon on 05/01/24 Orthopaedics Comment on above: Pre-op per JOSSY Castellon on 05/01/24 Start: 04-15-2024 End: 04-15-2024 Patient encounter procedure 04/15/2024 1:30 PM EDT Office Visit Orthopaedics [address] [place] [address] Eulalia Fuentes DPM [address] [facility] [place] [address] Post Op Left foot Sx 04/10/24 Orthopaedics Comment on above: Post Op Left foot Sx 04/10/24 Start: 04-10-2024 End: 04-10-2024 Admission to same day surgery center 04/10/2024 2:20 PM EDT - 04/10/2024 4:05 PM EDT Surgery Ambulatory Surgery [address] [facility] [address] Eulalia Fuentes DPM [address] [facility] [place] [address] EXCISION BENIGN CYST/MASS LESION LOWER EXTREMITY < [...] Painful scar Hyperkeratosis 04/10/2024 2:20 PM EDT [facility] Start: 04-10-2024 Subsequent hospital visit by physician 04/10/2024 2:20 PM EDT Hospital Encounter Ambulatory Surgery [address] [place] [address] Eulalia Fuentes DPM [address] [place] [address] History of foot surgery [Z98.890] Ambulatory Surgery Comment on above: History of foot surg slade [Z98.890] Start: 03-23-2024 End: 03-23-2025 Lipid 1996 panel - Serum or Plasma Lipid Panel Lab Routine Diabetes mellitus type II, non insulin dependent (Multi) Hyperlipidemia, unspecified hyperlipidemia type Expected: 03/23/2024 (Approximate), Expires: 03/23/2025 [facility] Service Area Work Phone: Comment on above: Expected: 03/23/2024 (Approximate), Expires: 03/23/2025 Start: 03-20-2024 End: 03-20-2024 Anesthesia consultation 03/20/2024 10:20 AM EDT PAT Pre Anesthesia [address] [place] [address] 2, Pacc [place] [address] [place] [address] Pacc Left foot Sx 04/10/24 Pre Anesthesia Comment on above: Pacc Left foot Sx Start: 11-25-2023 Behavioral Health Screening Behavioral Health Screening [facility] Start: 11-25-2023 Depression Assessment Depression Ass essment [facility] Start: 07-26-2023 COVID-19 Vaccine ( season) COVID-19 Vaccine () [facility] Start: 07-26-2023 Covid-19 Vaccine () Covid-19 Vaccine (2022- season) [facility] Start: 07-26-2023 Influenza vaccination Influenza Vacc ine (#1) [facility] Start: 05-23-2023 Plain X-ray of bilateral femurs XR femur BI [facility] Start: 05-23-2023 XR Femur - bilateral Views [facility] Start: 2023 Mammography Mammogram Screening [facility] Start: 2023 Screening for malign ant neoplasm of breast [facility] Start: 04-15-2023 FUV, Provider: Krystal Koehler, Status: Pen, Time: 11:00 AM FUV, Provider: Krystal Koehler, Status: Pen, Time: 11:00 AM [facility] [place] [address] DO Work Phone: Start: 04-12-2023 Evaluation and management of inpatient Inpatient Encounter Facility: Start: 04-09-2023 ambulatory Ambulatory Facility:[facility] Start: 03-11-2023 FUV, Provider: Krystal Koehler, Status: Pen, Time: 11:00 AM FUV, Provider: Krsytal Koehler, Status: Pen, Time: 11:00 AM [facility] [place] [address] DO Work Phone: Start: 03-04-2023 REST ONLY, Provider: TITUS HHVI NUCLEAR 01,[id number], Status: Pen, Time: 8:30 AM REST ONLY, Provider: TITUS HHVI NUCLEAR 01,[id number], Status: Pen, Time: 8:30 AM [facility] [place] 250 DO Work Phone: Start: 03-01-2023 STRESSNUC2, Provider : TITUS HHVI NUCLEAR 01,[id number], Status: Pen, Time: 10:00 AM STRESSNUC2, Provider: TITUS HHVI NUCLEAR 01,[id number], Status: Pen, Time: 10:00 AM -[facility] 250 DO Work Phone: Start: 02-21-2023 ECHO, Provider: TITUS ROWEI ULTRASOUND 01,[id number], Status: Pen, Time: 2:30 PM ECHO, Provider: TITUS ROWEI ULTRASOUND 01,[id number], Status: Pen, Time: 2:30 PM -[facility] 250 DO Work Phone: Start: 01-13-2023 Plain chest X-ray XR chest 1V portab le [facility] Start: 01-13-2023 XR Chest Single view [facility] Start: 11-30-2022 Plain X-ray of left hand XR hand LT min 3V* [facility] Start: 11-30-2022 XR Hand - left GE 3 Views [facility] Start: 11-25-2022 Depression Assessment Depression Ass essment [facility] Start: 07-26-2022 Influenza vaccination C [facility] Start: 07-21-2022 End: 07-21-2022 Patient encounter procedure Departed Clinical [facility] [place] Start: 07-10-2022 COVID-19 VACCINE (3 - Booster for Pfizer series) COVID-19 VACCINE (3 - Booster for Pfizer series) [facility] Start: 05-21-2022 [facility] Work Phone: Start: 05-21-2022 [facility] Work Phone: Start: 2013 HPV TESTING HPV TESTING [facility] Start: 2013 Screening for malign ant neoplasm of cervix HPV Testing [facility] Start: 2004 PAP TESTING PAP TESTING [facility] Start: 2004 Screening for malign ant neoplasm of cervix [facility] Start: 2002 HEPATITIS B (1 of 3 - Risk 3-dose series) HEPATITIS B (1 of 3 - Risk 3-dose series) [facility] Start: 2002 Hepatitis B Vaccine (1 of 3 - 19+ 3-dose series) Hepatitis B Vaccine (1 of 3 - 19+ 3-dose series) [facility] Start: 2002 Hepatitis B Vaccines (1 of 3 - 19+ 3-dose series) Hepatitis B Vaccines (1 of 3 - 19+ 3-dose series) [facility] Start: 2002 Pneumococcal vaccination Pneumococcal Vaccine (1 of 2 - PCV) [facility] Start: 2002 Pneumococcal Vaccine : Pediatrics and At-Risk Adult Patients (1 of 2 - PCV) Pneumococcal Vaccine: Pediatrics and At-Risk Adult Patients (1 of 2 - PCV) [facility] Start: 2002 Urine microalbumin profile DTAP,TDAP,TD (1 - Tdap) [facility] Start: 2002 Urine screening for protein Diabetes: Urine Protein Screening [facility] Start: 2001 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 ANNUAL PCP TEAM CHRONIC DISEASE VISIT [facility] Start: 2001 Anxiety Screening Anxiety Screening [facility] Start: 2001 Depression Screening Depression Scre ening [facility] Start: 2001 Hepatitis B surface antibody level LDL CHOLESTEROL [facility] Start: 2001 HEPATITIS C SCREENING HEPATITIS C [facility] Start: 2001 Hepatitis C screening Hepatitis C [facility] Start: 2001 HIV SCREENING HIV SCREENING [facility] Start: 2001 HIV screening HIV Screening [facility] Start: 2001 SPIROMETRY SPIROMETRY [facility] Start: 1999 ONE PNEUMOVAX PRIOR TO AGE 65 ONE PNEUMOVAX PRIOR TO AGE 65 [facility] Start: 1996 Varicella vaccination Varicell a Vaccines (1 of 2 - 13+ 2-dose series) [facility] Start: 1995 Adult depression screening assessment DEPRESSION SCREENING [facility] Start: 1993 3 comp foot exam completed DIABETIC FOOT EXAM [facility] Start: 1993 Diabetic foot examination [facility] Start: 1993 Glaucoma screening [facility] Start: 1993 Hepatitis B screening URINE AL BUMIN:CREATININE RATIO [facility] Start: 1993 Hepatitis C antibody , confirmatory test DILATED RETINAL EXAM [facility] Start: 1989 PNEUMOCOCCAL (1 - PCV) PNEUMOCOCCAL (1 - PCV) [facility] Start: 1989 Pneumococcal vaccination [facility] Start: 1989 Pneumococcal Vaccine : Pediatrics (0 to 5 Years) and At-Risk Patients (6 to 64 Years) (1 of 2 - PCV) Pneumococcal Vaccine: Pediatrics (0 to 5 Years) and At-Risk Patients (6 to 64 Years) (1 of 2 - PCV) [facility] Start: 1988 Hemoglobin A1c measurement HbA1C [facility] Start: 1988 Hemoglobin A1c/Hemoglobin.total in Blood HBA1C [facility] Start: 1984 MMR Vaccines (1 of 1 - Standard series) MMR Vaccines (1 of 1 - Standard series) [facility] Start: 1983 HEPATITIS B (1 of 3 - 3-dose series) HEPATITIS B (1 of 3 - 3-dose series) [facility] Start: 1983 Hepatitis B Vaccine (1 of 3 - 3-dose series) Hepatitis B Vaccine (1 of 3 - 3-dose series) [facility] Start: 1983 HIV screening HIV Screening [facility] Start: 1983 Lipid panel Lipid Panel [facility] Start: 1983 Urine screening for protein Diabetes: Urine Protein Screening [facility] Start: 1983 Yearly Adult Physical Yearly Adult P hysical [facility] Bacteria identified in Urine by Culture [facility] CHLAMYDIA TRACHOMATI S (GENITO/STI) CHLAMYDIA TRACHOMATIS (GENITO/STI) Lab Routine Pelvic pain in female Ordered: 05/03/2025 [facility] [employer] Comment on above: Ordered: 05/03/2025 Glucose measurement estimated from glycated hemoglobin [facility] Work Phone: Hemoglobin A1c/Hemoglobin.total in Blood [facility] Work Phone: Neisseria gonorrhoea e DNA [Presence] in Unspecified specimen by CODY with probe detection Neisseria gonorrhea DNA probe, direct Lab Routine Pelvic pain in female Ordered: 05/03/2025 [facility] Comment on above: Ordered: 05/03/2025 Patient Education [facility] Work Phone: Patient referral [facility] Work Phone: SURESWAB(R) ADVANCED VAGINITIS PLUS, TMA SURESWAB(R) ADVANCED VAGINITIS PLUS, TMA Pathology and Cytology Routine Pelvic pain in female Ordered: 05/03/2025 [facility] [employer] Work Phone: Comment on above: Ordered: 05/03/2025 THIN PREP TIS PAP AN D HR HPV DNA THIN PREP TIS PAP AND HR HPV DNA Pathology and Cytology Routine Well woman exam with routine gynecological exam Ordered: 05/24/2025 [facility] Work Phone: Comment on above: Ordered: 05/24/2025 [facility] Immunizations Immunization Date Immunization Notes Care Provider Fa cility 02-07-2022 Comirnaty 30 MCG/0.3 ML Intramuscular Suspension Ga [facility] Work Phone: 02-07-2022 tetanus toxoid, redu elmer diphtheria toxoid, and acellular pertussis vaccine, adsorbed Ga Marques Work Phone: [facility] 01-17-2022 Comirnaty 30 MCG/0.3 ML Intramuscular Suspension Ga Marques Work [facility]: [facility] Work Phone: 02-07-2021 COVID-19 mRNA, Comirnaty (Pfizer) IVONE Marques Work Phone: [facility] 01-17-2021 COVID-19 mRNA, Comirnaty (Pfizer) IVONE Marques Work Phone: [facility] Payers Date Payer Category Payer Unknown [id number] 2021 Medicaid (Managed Care) [facility] [id number] 2021 Private Health Insurance [facility] MEDICAID [id number] 2021 Unknown 2020 Medicaid [facility] MEDIC [facility] MEDICA[facility] [id number] 2020-Present [phone] [address] [place] [address] Medicaid [id number] 2020 Medicaid [id number] [id number]. [id number] 1983 Unknown [id number] 2.16840.1.330797.3.579.2. 356 1983 Unknown [id number] 2.16840.1.191982.3.579.2. 356 1983 Unknown [id number] 2.16840.1.514549.3.579.2. 356 1983 Unknown [id number] 2.16840.1.345329.3.579.2. 593 1983 Unknown [id number] 2.16840.1.619529.3.579.2. 593 1983 Unknown [id number] 2.16840.1.042973.3.579.2. 593 1983 Unknown [id number] 2.16840.1.871728.3.579.2. 593 1983 Unknown [id number] 2.16840.1.818965.3.579.2. 593 1983 Unknown [id number] 2.840.1.968951.3.579.2. 593 1983 Unknown [id number] 2.840.1.575048.3.579.2. 593 1983 Unknown [id number] 2.840.1.628403.3.579.2. 593 1983 Unknown [id number] 2.840.1.068575.3.579.2. 593 1983 Unknown [id number] 2.840.1.438981.3.579.2. 593 1983 Unknown [id number] 840.1.946360.3.579.2. 593 1983 Unknown [id number] 01.10.840.1.153110.3.579.2. 1068 1983 Unknown [id number] 20.1.346605.3.579.2. 1068 1983 Unknown [id number] 01.10.840.1.877967.3.579.2. 106 1983 Unknown [id number] 840.1.948994.3.579.2. 1067 1983 Unknown [id number] 840.1.434665.3.579.2. 1244 1983 Unknown [id number] 840.1.084254.3.579.2. 1244 1983 Unknown [id number] 840.1.985322.3.579.2. 1258 1983 Unknown [id number] 2840.1.241710.3.579.2. 1258 1983 Unknown [id number] 2840.1.967075.3.579.2. 1259 1983 Unknown [id number] 840.1.736063.3.579.2. 1259 1983 Unknown [id number] 2.16.840.1.603232.3.579.2. 1259 1959 Medicaid [id number] 1959 Self-pay [id number] 1959 Unknown [id number] Unknown [id number] 2.16.840.1.580974.3.579.2. 531 Unknown [id number] 2.16.840.1.403247.3.579.2. 531 Unknown [id number] 2.16.840.1.680529.3.579.2. 531 Unknown [id number] 2.16.840.1.986753.3.579.2. 531 Unknown [id number] 2.16.840.1.603705.3.579.2. 531 Unknown [id number] 2.16.840.1.968845.3.579.2. 531 Unknown [id number] 2.16.840.1.973214.3.579.2. 531 Unknown [id number] 2.16.840.1.295588.3.579.2. 531 Unknown [id number] 2.16.840.1.439897.3.579.2. 531 Social History Date Type Detail Facility Start: 02-20-2022 End: 02-10-2025 Tobacco smoking status NHIS Smoker (finding) [facility] Start: 1985 Sex Assigned At Female F [facility] Tobacco smoking stat [facility] Tobacco smoking consumption unknown [facility] Start: 1983 Sex Assigned At Not on file [facility] Start: 02-02-2022 End: 01-11-2025 Exposure to SARS-CoV-2 (event) Not sure [facility] Start: 10-25-2023 End: 07-24-2024 No alcohol use No alcohol use [facility] Comment on above: 11-25; Start: 10-25-2023 End: 07-24-2024 Patient Health Questionnaire 2 item (PHQ-2) [Reported] [facility] Adult Depression Screening Assessment 3 [facility] Start: 03-20-2024 End: 05-19-2024 Tobacco smoking status NHIS Smokes tobacco daily [facility] Start: 11-25-1999 History of tobacco use Cigarette Smo ker [facility] Start: 03-20-2024 End: 05-19-2024 Tobacco use and exposure Smokeless tobacco non-user [facility] Start: 03-20-2024 Alcohol intake Ex-drinker (finding) [facility] Start: 03-20-2024 Tobacco Comment Patient states she was formerly smoking 6 packs per day until 2020. Has cut down to 1.5-2 packs per day now. [facility] Start: 03-23-2024 End: 05-24-2025 Alcoholic beverage intake Lifetime non-drinker (finding) [facility] Work Phone: Start: 10-04-2024 End: 04-15-2025 Sex Female (finding) [facility] Start: 02-06-2023 Gender identity Identifies as female gender (finding) [facility] Start: 04-16-2023 Sexual orientation Heterosexual (fin ding) [facility] Start: 01-11-2025 Tobacco smoking stat us NHIS Occasional tobacco smoker [facility] Work Phone: Start: 03-20-2025 End: 04-15-2025 Tobacco smoking status NHIS Never smoked tobacco (finding) [facility] NEGATED: Highlighted row [facility] Medical Equipment Procedure Code Equipment Code Equipment Origin al Text Equipment Identifier Dates twice daily. MAXWELL T TWICE DAILY [id number] Start: 10-16-2021 Comment on above: twice daily. TEST TW ICE DAILY Goals Date Patient Goal Desired Activity /State Clinical Notes 03-06-2022 to 05-24-2025 Rosita Joseph NP - 05/24/2025 11:00 AM Donato Joseph NP - 05/03/2025 11:10 AM Timothy Koehler MD - 01/11/2025 10:00 AM ESTPatient Eulalia Hernandez DPM - 01/04/2025 10:28 AM EST Note Date & Type Note Facility 05-24-2025 History of Presen t illness Narrative Reason for Appointment: Patient ID: Gary Vigil is a 40 y.o. female who presents for Well Women Visit Patient presents today for Annual Exam. MEDICATIONS Current Outpatient Medications Medication Instructions Acetaminophen Extra Strength 500 MG tablet Ajovy 225 MG/1.5ML auto-injector Boric Acid 600 mg, Vaginal, Daily citalopram (CeleXA) 20 MG tablet Every 24 hours cyclobenzaprine (Flexeril) 10 MG tablet take 1 tablet by mouth twice a day if needed for 15 DAYS furosemide (Lasix) 20 MG tablet montelukast (SINGULAIR) 10 mg, Oral, Daily omeprazole (PriLOSEC) [address] capsule Every 24 hours Ozempic (0.25 or 0.5 MG/DOSE) 0.5 mg, Subcutaneous, Weekly potassium chloride CR (Klor-Con M20) 20 MEQ ER tablet take 1 tablet by mouth three times a day with food Ventolin HFA 108 (90 Base) MCG/ACT inhaler ALLERGIES Allergies Allergen Reactions Tramadol Anaphylaxis and Unknown Other Reaction(s): Comments: Heart Stops Other Reaction(s): Other, Unknown Other Reaction(s): Anaphylaxis STOPS HEART Ketorolac Hives Other Reaction(s): Dermatitis Comments: Hives Other Reaction(s): Anaphylaxis Prednisone Hives and Unknown Other Reaction(s): angry rage Other Reaction(s): Agitation, extreme somnolence, Other, Unknown Other Reaction(s): Agitation, extreme somnolence MAKES ME CRAZY PROBLEMS Active Ambulatory Problems Diagnosis Date Noted No Active Ambulatory Problems Resolved Ambulatory Problems Diagnosis Date Noted No Resolved Ambulatory Problems Past Medical History: Diagnosis Date Abdominal cramping Abnormal uterine bleeding Anemia Anxiety Asthma (HCC) Bipolar disorder (HCC) Cervicitis Depression Depression Diabetes (HCC) Diabetic peripheral neuropathy associated with type 2 diabetes mellitus (HCC) Fibromyalgia H/O psychiatric care Heart disease History of high blood pressure History of migraine headaches Hypercholesterolemia Hyperkalemia Hyperlipidemia Hypertension IBS (irritable bowel syndrome) Kidney disease Liver disease Menorrhagia Mood disorder Neuritis Obesity (HHS-HCC) Smoker Thyroid disease Trichimoniasis Vaginal itching HISTORY PAST MEDICAL HISTORY SOCIAL HISTORY Past Medical History: Diagnosis Date Abdominal cramping Abnormal uterine bleeding Anemia Anxiety Asthma (HCC) Bipolar disorder (HCC) Cervicitis Depression Depression Diabetes (HCC) Diabetic peripheral neuropathy associated with type 2 diabetes mellitus (HCC) Fibromyalgia H/O psychiatric care Heart disease History of high blood pressure History of migraine headaches Hypercholesterolemia Hyperkalemia Hyperlipidemia Hypertension IBS (irritable bowel syndrome) Kidney disease Liver disease Menorrhagia Mood disorder Neuritis Obesity (HHS-HCC) Smoker Thyroid disease Trichimoniasis Vaginal itching Social History Tobacco Use Smoking status: Every Day Current packs/day: 1.50 Average packs/day: 1.5 packs/day for 23.0 years (34.5 ttl pk-yrs) Types: Cigarettes Smokeless tobacco: Never Substance Use Topics Alcohol use: Never Drug use: Never FAMILY HISTORY Family History Problem Relation Name Age of Onset Diabetes Mother Amanda Vigil Heart disease Mother Amanda Vigil Rheum arthritis Mother Amanda Vigil Asthma Mother Amanda Vigil Migraines Mother Amanda Vigil No Known Problems Sister 2 sisters No Known Problems Brother Cancer Other Family history Diabetes Other Family history Hypertension Other Family history Coronary artery disease Other Family history No Known Problems Daughter 3 daughters No Known Problems Son SURGICAL HISTORY Past Surgical History: Procedure Laterality Date ABLATION A-FIB 10/27/2021 CHEILECTOMY 07/2020 gastroc recession, dominga osteotomy 4th and bi lobe skin plasty to left plantar foot. Dr Jacques D.P.M. CHOLECYSTECTOMY 06/17/2016 CYSTOSCOPY 08/28/2023 DILATION AND CURETTAGE 2020 with hysteroscopy DILATION AND CURETTAGE 11/07/2020 diagnostic laparoscopy HYSTERECTOMY 08/28/2023 INCISE AND DRAIN ABSCESS 05/21/2022 Excision and drain of right axillary abscess- AVV LAPAROSCOPY DIAGNOSTIC / BIOPSY / ASPIRATION / LYSIS 07/16/2024 LAPAROSCOPY DIAGNOSTIC / BIOPSY / ASPIRATION / LYSIS 07/16/2024 OTHER SURGICAL HISTORY 01/2021 removal of painful hardware, peroneal nerve release to LLE Dr Jacques D.P.M. ROBOTIC ASSISTED HYSTERECTOMY 08/28/2023 SALPINGECTOMY Bilateral 08/28/2023 TUBAL LIGATION Bilateral 2010 division of fallopian tubes TUMOR REMOVAL 2016 abdominal REVIEW OF SYSTEMS Review of Systems: Review of Systems Constitutional: Negative. HENT: Negative. Eyes: Negative. Respiratory: Negative. Cardiovascular: Negative. Gastrointestinal: Negative. Genitourinary: Negative. Musculoskeletal: Negative. Skin: Negative. Neurological: Negative. All other systems reviewed and are negative. Hematological: Negative. Endocrine: Negative. Allergic/Immunologic: Negative. OBJECTIVE Objective: Physical Exam Constitutional: Appearance: Normal appearance. She is well-developed. Genitourinary: Vulva normal. Genitourinary Comments: 4'Oclock 4 cm from areola Breasts: Breasts are soft. Right: Normal. Left: Tenderness present. Cardiovascular: Rate and Rhythm: Normal rate and regular rhythm. Pulmonary: Effort: Pulmonary effort is normal. Breath sounds: Normal breath sounds. Abdominal: General: Bowel sounds are normal. There is no distension. Palpations: Abdomen is soft. Tenderness: There is no abdominal tenderness. There is no guarding or rebound. Musculoskeletal: General: No swelling. Normal range of motion. Right lower leg: No edema. Left lower leg: No edema. Neurological: Mental Status: She is alert and oriented to person, place, and time. Skin: General: Skin is warm and dry. Psychiatric: Mood and Affect: Mood normal. Behavior: Behavior normal. Vitals and nursing note reviewed. Exam conducted with a sampler radioactive waste present. Vitals: Estimated body mass index is 32.2 kg/m as calculated from the following: Height as of 06/11/24: 5' 6 . Weight as of this encounter: 199 lb 8 oz. BP: 112/82 No LMP recorded (lmp unknown). Patient has had a hysterectomy. ASSESSMENT & PLAN ICD-10-CM 1. Well woman exam with routine gynecological exam Z01.419 THIN PREP TIS PAP AND HR HPV DNA 2. Encounter for screening mammogram for malignant neoplasm of breast Z12.31 Bilateral screening mammogram Bilateral screening mammogram Annual Exam: Patient presents today for an annual exam. Patient states she is doing well and has no complaints. Pap was obtained without difficulty. Orders Placed This Encounter Procedures Bilateral screening mammogram Follow Up: Patient to return for test of cure after + STI culture. Patient is to return in one year for annual unless needed otherwise. Documented by Rosita Joseph NP on behalf of: CORIE Chu documented in this encounter [facility] 05-03-2025 History of Presen t illness Narrative Reason for Appointment: Patient ID: Gary Vigil is a 39 y.o. female who presents for Pelvic Pain (Pt present today for pelvic and lower back pain. Pt complains of having frequent yeast infections. (Itching)) Patient presents today for Acute Visit. MEDICATIONS Current Outpatient Medications Medication Instructions Acetaminophen Extra Strength 500 MG tablet Ajovy 225 MG/1.5ML auto-injector citalopram (CeleXA) 20 MG tablet Every 24 hours cyclobenzaprine (Flexeril) 10 MG tablet take 1 tablet by mouth twice a day if needed for 15 DAYS furosemide (Lasix) 20 MG tablet montelukast (SINGULAIR) 10 mg, Oral, Daily omeprazole (PriLOSEC) [address] capsule Every 24 hours Ozempic (0.25 or 0.5 MG/DOSE) 0.5 mg, Subcutaneous, Weekly potassium chloride CR (Klor-Con M20) 20 MEQ ER tablet take 1 tablet by mouth three times a day with food Ventolin HFA 108 (90 Base) MCG/ACT inhaler ALLERGIES Allergies Allergen Reactions Tramadol Anaphylaxis and Unknown Other Reaction(s): Comments: Heart Stops Other Reaction(s): Other, Unknown Other Reaction(s): Anaphylaxis STOPS HEART Ketorolac Hives Other Reaction(s): Dermatitis Comments: Hives Other Reaction(s): Anaphylaxis Prednisone Hives and Unknown Other Reaction(s): angry rage Other Reaction(s): Agitation, extreme somnolence, Other, Unknown Other Reaction(s): Agitation, extreme somnolence MAKES ME CRAZY PROBLEMS Active Ambulatory Problems Diagnosis Date Noted No Active Ambulatory Problems Resolved Ambulatory Problems Diagnosis Date Noted No Resolved Ambulatory Problems Past Medical History: Diagnosis Date Abdominal cramping Abnormal uterine bleeding Anemia Anxiety Asthma Bipolar disorder Cervicitis Depression (CMS/HCC) Depression (CMS/HCC) Diabetes (CMS/[facility]) Diabetic peripheral neuropathy associated with type 2 diabetes mellitus ([facility]/HCC) Fibromyalgia H/O psychiatric care Heart disease History of high blood pressure History of migraine headaches Hypercholesterolemia (CMS/HCC) Hyperkalemia Hyperlipidemia (CMS/HCC) Hypertension (CMS/HCC) IBS (irritable bowel syndrome) Kidney disease Liver disease Menorrhagia Mood disorder (CMS/HCC) Neuritis Obesity Smoker Thyroid disease (CMS/HCC) Trichimoniasis Vaginal itching HISTORY PAST MEDICAL HISTORY SOCIAL HISTORY Past Medical History: Diagnosis Date Abdominal cramping Abnormal uterine bleeding Anemia Anxiety Asthma Bipolar disorder Cervicitis Depression (CMS/HCC) Depression (CMS/HCC) Diabetes (CMS/HCC) Diabetic peripheral neuropathy associated with type 2 diabetes mellitus (CMS/HCC) Fibromyalgia H/O psychiatric care Heart disease History of high blood pressure History of migraine headaches Hypercholesterolemia (CMS/HCC) Hyperkalemia Hyperlipidemia (CMS/HCC) Hypertension (CMS/HCC) IBS (irritable bowel syndrome) Kidney disease Liver disease Menorrhagia Mood disorder (CMS/HCC) Neuritis Obesity Smoker Thyroid disease (CMS/HCC) Trichimoniasis Vaginal itching Social History Tobacco Use Smoking status: Every Day Current packs/day: 1.50 Average packs/day: 1.5 packs/day for 23.0 years (34.5 ttl pk-yrs) Types: Cigarettes Smokeless tobacco: Never Substance Use Topics Alcohol use: Never Drug use: Never FAMILY HISTORY Family History Problem Relation Name Age of Onset Diabetes Mother Amanda Vigil Heart disease Mother Amanda Vigil Rheum arthritis Mother Amanda Vigil Asthma Mother Amanda Vigil Migraines Mother Amanda Vigil No Known Problems Sister 2 sisters No Known Problems Brother Cancer Other Family history Diabetes Other Family history Hypertension Other Family history Coronary artery disease Other Family history No Known Problems Daughter 3 daughters No Known Problems Son SURGICAL HISTORY Past Surgical History: Procedure Laterality Date ABLATION A-FIB 10/27/2021 CHEILECTOMY 07/2020 gastroc recession, dominga osteotomy 4th and bi lobe skin plasty to left plantar foot. Dr Jacques D.P.M. CHOLECYSTECTOMY 06/17/2016 CYSTOSCOPY 08/28/2023 DILATION AND CURETTAGE 2020 with hysteroscopy DILATION AND CURETTAGE 11/07/2020 diagnostic laparoscopy HYSTERECTOMY 08/28/2023 INCISE AND DRAIN ABSCESS 05/21/2022 Excision and drain of right axillary abscess- AVV LAPAROSCOPY DIAGNOSTIC / BIOPSY / ASPIRATION / LYSIS 07/16/2024 LAPAROSCOPY DIAGNOSTIC / BIOPSY / ASPIRATION / LYSIS 07/16/2024 OTHER SURGICAL HISTORY 01/2021 removal of painful hardware, peroneal nerve release to LLE Dr Jacques D.P.M. ROBOTIC ASSISTED HYSTERECTOMY 08/28/2023 SALPINGECTOMY Bilateral 08/28/2023 TUBAL LIGATION Bilateral 2009 division of fallopian tubes TUMOR REMOVAL 2016 abdominal REVIEW OF SYSTEMS Review of Systems: Review of Systems Constitutional: Negative. HENT: Negative. Eyes: Negative. Respiratory: Negative. Cardiovascular: Negative. Gastrointestinal: Negative. Genitourinary: Positive for pelvic pain and vaginal discharge. Musculoskeletal: Negative. Skin: Negative. Neurological: Negative. All other systems reviewed and are negative. Hematological: Negative. Endocrine: Negative. Allergic/Immunologic: Negative. OBJECTIVE Objective: Physical Exam Constitutional: Appearance: Normal appearance. She is well-developed. Cardiovascular: Rate and Rhythm: Normal rate and regular rhythm. Pulmonary: Effort: Pulmonary effort is normal. Breath sounds: Normal breath sounds. Abdominal: General: Bowel sounds are normal. There is no distension. Palpations: Abdomen is soft. Tenderness: There is no abdominal tenderness. There is no guarding or rebound. Musculoskeletal: General: No swelling. Normal range of motion. Right lower leg: No edema. Left lower leg: No edema. Neurological: Mental Status: She is alert and oriented to person, place, and time. Skin: General: Skin is warm and dry. Psychiatric: Mood and Affect: Mood normal. Behavior: Behavior normal. Vitals and nursing note reviewed. Exam conducted with a sampler radioactive waste present. Vitals: Estimated body mass index is 32.44 kg/m as calculated from the following: Height as of 06/11/24: 5' 6 . Weight as of this encounter: 201 lb. BP: 118/74 No LMP recorded (lmp unknown). Patient has had a hysterectomy. ASSESSMENT & PLAN ICD-10-CM 1. Pelvic pain in female R10.2 SURESWAB(R) ADVANCED VAGINITIS PLUS, TMA CHLAMYDIA TRACHOMATIS (GENITO/STI) Neisseria gonorrhea DNA probe, direct POCT urinalysis dipstick manually resulted 2. Yeast infection B37.9 Patient with complaints of symptoms of yeast infection with discharge and itching. Patient also with complaint of intermittent pelvic pain left sided and seems cyclical which she feels is her ovary. She has a history of partial hysterectomy, but reports the pain has been so severe that it affects her daily life at times and she has even had to leave work because of the pain. Will obtain pelvic ultrasound. Given her Type II DM and recurrent yeast infections cultures were obtained today and A1C is ordered. Antifungal vaginal and oral is sent to her pharmacy. Documented by Rosita Joseph NP on behalf of: Rigoberto Dusty, DO documented in this encounter [facility] 02-10-2025 Radiology Diagnostic study note [facility] Main [place] [address] [place] [address] CT Scan Report Signed Patient: Gary Vigil MR#: [id number] : 1985 Acct:[id number] Age/Sex: 39 / F ADM Date: 5 Loc: ER Room: Type: PRE ER Attending Dr: Copies to: Miquel Andrews PA-C~ Ordering Provider: Miquel Andrews PA-C Date of Service: 02/10/25 CT/CT abdomen pelvis wo con: right side pain CT ABDOMEN AND PELVIS WITHOUT INTRAVENOUS CONTRAST: CLINICAL HISTORY: Right-sided abdominal pain COMPARISON: 10/23/2023 TECHNIQUE: Spiral images were obtained through the abdomen and pelvis without intravenous contrast. This CT exam was performed using one or more following dose reduction techniques: Automated exposure control, adjustment of the mA and/or kV according to patient size, or use of iterative reconstruction technique. FINDINGS: Lung Bases: [Minor atelectasis.] Organs:Gallbladder absent. Otherwise liver, spleen, adrenal glands, kidneys, pancreas unremarkable.[ GI: Postsurgical changes left upper quadrant small bowel loops. No evidence of bowel obstruction. Mild colonic diverticulosis. No CT findings acute appendicitis.[ Pelvis:[Bladder is mostly collapsed. Uterus absent. No adnexal mass.] Peritoneum/Retroperitoneum:Mild to moderate aortic vascular disease. Aorta is not aneurysmal. No facet up. No free air or free fluid.[ Abd wall/Bones:Postsurgical changes ventral abdominal wall. No suspicious osseous lesion.[Degenerative changes involving the facet joints. CT/CT abdomen pelvis wo con IMPRESSION: Negative acute inflammatory process or bowel obstruction Impression dictated by: Jan Maddox M.D.02/10/2025 3:41 PM Dictation Location: [place] [address] Transcribed By: [facility] 02/10/25 1545 Dictated By: Jan Maddox MD 02/10/25 1538 Signed By: 02/10/25 1545 [facility] Work Phone: 01-11-2025 History of Presen t illness Narrative This is a 6-month follow-up visit. Patient with multiple cardiac risk factors to include hypertension mixed hyperlipidemia and diabetes, migraine headaches, preserved LV systolic function, no documented coronary artery disease. I saw her initially for chest discomfort. No symptoms of hypoglycemia Subjective : Lost 16 pounds since last visit I had prescribed Wegovy. She feels great Interval review of systems is negative for chest discomfort pressure tightness heaviness palpitations lightheadedness orthopnea paroxysmal nocturnal dyspnea dependent edema or claudication TIA or CVA type symptoms or bleeding diathesis she is now on Ozempic. 12 point ROS is negative or non contributory except as noted. History so Far : 1. Hypertension 2. [...] Objective Wt Readings from Last 3 Encounters: 01/11/25 94.3 kg (208 lb) 07/06/24 102 kg (224 lb) 03/23/24 105 kg (232 lb) Vitals: 01/11/25 0938 BP: 118/84 BP Location: Left arm Patient Position: Sitting Pulse: 84 Weight: 94.3 kg (208 lb) Height: 1.676 m (5' 6 ) Physical Exam: GENERAL APPEARANCE: in no [...] Medications Medication Instructions Ajovy Autoinjector 225 mg, Every 30 days albuterol 180 mcg, Every 4 hours cariprazine (VRAYLAR) 4.5 mg, Daily citalopram (CELEXA) 20 mg, Daily empagliflozin (JARDIANCE) 25 mg, Daily fluticasone (Flovent HFA) 110 mcg/actuation inhaler 1 puff, 2 times daily RT furosemide (LASIX) 20 mg, oral, Daily loratadine (CLARITIN REDITABS) 10 mg, Daily omeprazole OTC (PRILOSEC OTC) 20 mg, Daily before breakfast potassium chloride CR 20 mEq ER tablet 20 mEq, oral, Daily, Do not crush or chew. rizatriptan (MAXALT) 5 mg, Once as needed rOPINIRole (REQUIP) 1 mg, 3 times daily semaglutide (Ozempic) 0.25 mg or 0.5 mg(2 mg/1.5 mL) pen injector Weekly semaglutide (weight loss) (WEGOVY) 0.25 mg, subcutaneous, Every 7 days SITagliptin phosphate (JANUVIA) 100 mg, Daily spironolactone (ALDACTONE) 50 mg, oral, Daily Allergies Allergen Reactions Tramadol Anaphylaxis, Other and Unknown Other Reaction(s): Comments: Heart Stops Ketorolac Hives Other Reaction(s): Dermatitis Comments: Hives Prednisone Hives, Other and Unknown Other Reaction(s): angry rage LABS: September 2024-hemoglobin 12.7 hematocrit 37 platelet count 348 sodium 138 potassium 3.3 BUN 12 creatinine 0.5 GFR greater than 60 liver enzymes normal Patient Active Problem List Diagnosis Date Noted Hypokalemia 01/11/2025 Preop cardiovascular exam 07/06/2024 BMI 33.0-33.9,adult 03/23/2024 Smoker 03/23/2024 Hyperlipidemia 03/23/2024 Medication course changed 03/23/2024 Abnormal EKG 12/30/2023 Anemia 12/30/2023 Diabetes mellitus type II, non insulin dependent (Multi) 12/30/2023 Shortness of breath 12/30/2023 Primary hypertension 12/30/2023 Migraine 12/30/2023 Assessment: 1. Primary hypertension Follow Up In Cardiology 2. Diabetes mellitus type II, non insulin dependent (Multi) 3. Mixed hyperlipidemia 4. Hypokalemia 5. BMI 33.0-33.9,adult 6. Smoker Clinical decision making: Primary hypertension-at target Losing weight on semaglutide, much more active, overall doing well, no symptoms of hypoglycemia Most recent blood work we have is from September, she remains hypokalemic Her hypokalemia is due to excessive renal loss of potassium because of diuretics. She says if he stopped diuretics she will develop significant leg edema. She is working on nicotine cessation, she tries to not smoke every day. Will continue to encourage. With continued weight loss we may be able to down titrate her cardiac medications. Will repeat valuate. Obtain basic metabolic profile and lipid profile in the near future Adding Aldactone for potassium supplementation may be needed Did not bring medications, I have reiterated to her that she needs to bring in an accurate medication list or her medications themselves at every visit. Follow up : 6 months Provider Attestation - Scribe documentation All medical record entries made by the Scribe were at my direction and personally dictated by me. I have reviewed the chart and agree that the record accurately reflects my personal performance of the history, physical exam, discussion and plan. Scribe Attestation By signing my name below, I, Gillian Roman LPN attest that this documentation has been prepared under the direction and in the presence of Krystal Koehler MD. documented in this encounter [facility] Work Phone: 01-11-2025 Instructions Malia Valdivia LPN - 01/11/2025 10:00 AM EST Please bring all medicines, vitamins, and herbal supplements with you when you come to the office. Prescriptions will not be filled unless you are compliant with your follow up appointments or have a follow up appointment scheduled as per instruction of your physician. Refills should be requested at the time of your visit. BMI was above normal measurement. Current weight: 94.3 kg (208 lb) Weight change since last visit (-) denotes wt loss -16 lbs Weight loss needed to achieve BMI 25: 53.4 Lbs Weight loss needed to achieve BMI 30: 22.5 Lbs Provided instructions on dietary changes Provided instructions on exercise. documented in this encounter [facility] Work Phone: 01-04-2025 Note HNO ID: [id number] Author: EULALIA FUENTES DPM Service: ? Author Type: Physician Type: Progress Notes Filed: 01/04/2025 10:38 Note Text: Patient Visit for Gary Vigil 1985 39 year old female Date of Service: January 04, 2025 SUBJECTIVE: Chief Complaint: Patient presents with: Left Foot - Established Patient, Follow Up, Pain Left Ankle - New, Pain, Established Patient /Pain Scales: Verbal (Numeric Rating or Visual Analog Scale) Pain Level: 10 Pain Location: (left foot and ankle) Description: Aching, Burning, Cramping, Numbness, Pressure, Sharp, Shooting, Sore, Stabbing, Tenderness, Tightness Duration Units: Years Frequency: Continuous Intervention/Comfort measure: Relaxation, Massage Comments: She is here for a follow up of left foot and ankle pain. No new or recent injury. Pain increases with activity. Additional HPI: Painful hyperkeratosis plantar lateral LEFT FOOT Medial great toe bilateral Dystrophic toenails especially third toe LEFT FOOT and second toe RIGHT FOOT with pain PCP: No primary care provider on file. No past medical history on file. Current Outpatient Medications Medication Sig semaglutide (OZEMPIC) 1 mg/dose (4 mg/3 mL) pen Inject 1 mg subcutaneously one time a week. empagliflozin (JARDIANCE) 25 mg tablet Take 25 mg by mouth daily with breakfast. mupirocin (BACTROBAN) 2 % ointment Apply 1 application to affected area two times a day. spironolactone (ALDACTONE) 50 mg tablet Take 50 mg by mouth. atorvastatin calcium (ATORVASTATIN ORAL) Take by mouth once daily. sitagliptin phosphate (NOVUVIA ORAL) Take by mouth once daily. mupirocin [...] 50 mg by mouth daily at bedtime. [employer] LabsTOUCH ULTRA TEST test strip twice daily. TEST [...] Currently Drug use: Not Currently Tobacco Use: Types: Cigarettes REVIEW OF SYSTEMS: The remainder of the ROS was reviewed with the patient and is negative except as noted. OBJECTIVE: General: Pleasant in no acute distress Lower extremity exam: Vascular exam: Normal vascular exam, palpable pluses with brisk capillary fill Neurological exam: Unchanged No pain out of proportion Dermatological exam: Hyperkeratosis plantar medial LEFT great toe with tenderness to palpation Hyperkeratosis plantar lateral LEFT forefoot with tenderness to palpation Hyperkeratosis medial RIGHT great toe with tenderness to palpation bilateral at site of multiple deep hyperkeratosis Dystrophic toenails bilate (more content not included)... [facility] 01-04-2025 History of Presen t illness Narrative Patient Visit for Gary Vigil 1985 39 year old female Date of Service: January 04, 2025 SUBJECTIVE: Chief Complaint: Patient presents with: Left Foot - Established Patient, Follow Up, Pain Left Ankle - New, Pain, Established Patient /Pain Scales: Verbal (Numeric Rating or Visual Analog Scale) Pain Level: 10 Pain Location: (left foot and ankle) Description: Aching, Burning, Cramping, Numbness, Pressure, Sharp, Shooting, Sore, Stabbing, Tenderness, Tightness Duration Units: Years Frequency: Continuous Intervention/Comfort measure: Relaxation, Massage Comments: She is here for a follow up of left foot and ankle pain. No new or recent injury. Pain increases with activity. Additional HPI: Painful hyperkeratosis plantar lateral LEFT FOOT Medial great toe bilateral Dystrophic toenails especially third toe LEFT FOOT and second toe RIGHT FOOT with pain PCP: No primary care provider on file. No past medical history on file. Current Outpatient Medications Medication Sig semaglutide (OZEMPIC) 1 mg/dose (4 mg/3 mL) pen Inject 1 mg subcutaneously one time a week. empagliflozin (JARDIANCE) 25 mg tablet Take 25 mg by mouth daily with breakfast. mupirocin (BACTROBAN) 2 % ointment Apply 1 application to affected area two times a day. spironolactone (ALDACTONE) 50 mg tablet Take 50 [...] 50 mg by mouth daily at bedtime. [employer] ULTRA TEST test strip twice daily. TEST [...] Currently Drug use: Not Currently Tobacco Use: Types: Cigarettes REVIEW OF SYSTEMS: The remainder of the ROS was reviewed with the patient and is negative except as noted. OBJECTIVE: General: Pleasant in no acute distress Lower extremity exam: Vascular exam: Normal vascular exam, palpable pluses with brisk capillary fill Neurological exam: Unchanged No pain out of proportion Dermatological exam: Hyperkeratosis plantar medial LEFT great toe with tenderness to palpation Hyperkeratosis plantar lateral LEFT forefoot with tenderness to palpation Hyperkeratosis medial RIGHT great toe with tenderness to palpation bilateral at site of multiple deep hyperkeratosis Dystrophic toenails bilateral Other Normal exam without rashes or lesions of skin. No evidence of evidence of petechiae, purpura, telangiectasia Musculoskeletal exam: LEFT FOOT Tenderness to palpation plantar hallux interphalangeal joint Limited range of motion 1st metatarsal phalangeal joint at site of previous hallux valgus surgery Depressed arch height with weight bearing Other Gross range of motion appears to be intact to ankle and foot Other Gross overall Manual muscle strength evaluation relatively intact LABS: Most recent labs reviewed LABORATORY STUDIES: Recent Labs 03/20/24 1053 HBA1C 8.2* ASSESSMENT: E11.49 DM (diabetes mellitus), type 2 with neurological complications (HCC) (primary encounter diagnosis) L85.9 Hyperkeratosis M79.671, M79.672 Pain in both feet 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 In order to perform a complete physical exam, hyperkeratosis LEFT FOOT reduced with #15 scalpel blade was performed. This incidental service is integral to the evaluation and management visit in order to appropriately manage and treat the patient (for their complaint or for this visit). Education regarding wearing appropriate shoes Recommend CeraVe topical cream emollient twice daily or equivalent She has returned to work Activity as tolerated if no or limited symptoms All questions were answered. Gary Vigil appeared to be well informed. Greater than 50% of the visit was spent face to face counseling and/or coordinating care for the patient. Eulalia Fuentes DPM documented in this encounter [facility] 12-04-2024 Note HNO ID: [id number] Author: EULALIA FUENTES DPM Service: ? Author Type: Physician Type: Progress Notes Filed: 12/04/2024 12:01 Note Text: Patient Visit for Nandiniroxann Angeles Alden 1985 39 year old female Date of Service: December 04, 2024 SUBJECTIVE: Chief Complaint: Patient presents with: Left Foot - Established Patient, Follow Up, Pain Right Foot - Established Patient, Follow Up, Pain /Pain Scales: Verbal (Numeric Rating or Visual Analog Scale) Pain Level: 10 Pain Location: Foot-Left Description: Aching, Burning, Contraction, Cramping, Crushing, Numbness, Raw, Sharp, Shooting, Sore, Spasm, Stabbing, Stiffness, Throbbing, Tingling Duration Amount of Time: 24 Duration Units: Months Frequency: Continuous Intervention/Comfort measure: Pillow support Comments: She is here for a follow up of bilateral foot callouses. Surgery performed 05/01/24. Additional HPI: Painful hyperkeratosis plantar lateral LEFT FOOT Medial great toe bilateral Dystrophic toenails She brought in a CD X-ray of feet from [facility] PCP: No primary care provider on file. No past medical history on file. Current Outpatient Medications Medication Sig semaglutide (OZEMPIC) 1 mg/dose (4 mg/3 mL) pen Inject 1 mg subcutaneously one time a week. empagliflozin (JARDIANCE) 25 mg tablet Take 25 mg by mouth daily with breakfast. mupirocin (BACTROBAN) 2 % ointment Apply 1 application to affected area two times a day. spironolactone (ALDACTONE) 50 mg tablet Take 50 [...] 50 mg by mouth daily at bedtime. [employer] ULTRA TEST test strip twice daily. TEST [...] Currently Drug use: Not Currently Tobacco Use: Types: Cigarettes REVIEW OF SYSTEMS: The remainder of the ROS was reviewed with the patient and is negative except as noted. OBJECTIVE: General: Pleasant in no acute distress Lower extremity exam: Vascular exam: Normal vascular exam, palpable pluses with brisk capillary fill Neurological exam: Unchanged No pain out of proportion Dermatological exam: Hyperkeratosis plantar medial LEFT great toe with tenderness to palpation Hyperkeratosis plantar lateral LEFT forefoot with tenderness to palpation Hyperkeratosis medial RIGHT great toe with tenderness to palpation bilateral at site of multiple deep hyperkeratosi (more content not included)... [facility] 12-04-2024 History of Presen t illness Narrative Patient Visit for Gary Vigil 1985 39 year old female Date of Service: December 04, 2024 SUBJECTIVE: Chief Complaint: Patient presents with: Left Foot - Established Patient, Follow Up, Pain Right Foot - Established Patient, Follow Up, Pain /Pain Scales: Verbal (Numeric Rating or Visual Analog Scale) Pain Level: 10 Pain Location: Foot-Left Description: Aching, Burning, Contraction, Cramping, Crushing, Numbness, Raw, Sharp, Shooting, Sore, Spasm, Stabbing, Stiffness, Throbbing, Tingling Duration Amount of Time: 24 Duration Units: Months Frequency: Continuous Intervention/Comfort measure: Pillow support Comments: She is here for a follow up of bilateral foot callouses. Surgery performed 05/01/24. Additional HPI: Painful hyperkeratosis plantar lateral LEFT FOOT Medial great toe bilateral Dystrophic toenails She brought in a CD X-ray of feet from [facility] PCP: No primary care provider on file. No past medical history on file. Current Outpatient Medications Medication Sig semaglutide (OZEMPIC) 1 mg/dose (4 mg/3 mL) pen Inject 1 mg subcutaneously one time a week. empagliflozin (JARDIANCE) 25 mg tablet Take 25 mg by mouth daily with breakfast. mupirocin (BACTROBAN) 2 % ointment Apply 1 application to affected area two times a day. spironolactone (ALDACTONE) 50 mg tablet Take 50 [...] Currently Drug use: Not Currently Tobacco Use: Types: Cigarettes REVIEW OF SYSTEMS: The remainder of the ROS was reviewed with the patient and is negative except as noted. OBJECTIVE: General: Pleasant in no acute distress Lower extremity exam: Vascular exam: Normal vascular exam, palpable pluses with brisk capillary fill Neurological exam: Unchanged No pain out of proportion Dermatological exam: Hyperkeratosis plantar medial LEFT great toe with tenderness to palpation Hyperkeratosis plantar lateral LEFT forefoot with tenderness to palpation Hyperkeratosis medial RIGHT great toe with tenderness to palpation bilateral at site of multiple deep hyperkeratosis Dystrophic toenails bilateral Other Normal exam without rashes or lesions of skin. 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 In order to perform a complete physical exam, hyperkeratosis LEFT FOOT reduced with #15 scalpel blade was performed. This incidental service is integral to the evaluation and management visit in order to appropriately manage and treat the patient (for their complaint or for this visit). Education regarding wearing appropriate shoes Recommend CeraVe topical cream emollient twice daily or equivalent She has returned to work Activity as tolerated if no or limited symptoms All questions were answered. Gary Vigil appeared to be well informed. Greater than 50% of the visit was spent face to face counseling and/or coordinating care for the patient. Eulalia Fuentes DPM documented in this encounter [facility] 10-05-2024 Note HNO ID: [id number] Author: EULALIA FUENTES DPM Service: ? Author Type: Physician Type: Progress Notes Filed: 10/05/2024 13:40 Note Text: Patient Visit for Gary Vigil 1985 39 year old female Date of Service: October 05, 2024 SUBJECTIVE: Chief Complaint: Patient presents with: Left Foot - Established Patient, Post Op /Pain Scales: Verbal (Numeric Rating or Visual Analog Scale) Pain Level: 8 Pain Location: Foot-Left Description: Aching, Sharp, Sore, Throbbing, Numbness Duration Amount of Time: 5 Duration Units: Months Frequency: Continuous Comments: She is here for a follow up of the left foot. Surgery performed on 05/01/24. Additional HPI: LEFT plantar foot pain Recurrent hyperkeratosis Pain 1st metatarsal phalangeal joint Pain plantar hallux interphalangeal joint Worse with activity Pain with standing PCP: No primary care provider on file. No past medical history on file. Current Outpatient Medications Medication Sig semaglutide (OZEMPIC) 1 mg/dose (4 mg/3 mL) pen Inject 1 mg subcutaneously one time a week. empagliflozin (JARDIANCE) 25 mg tablet Take 25 mg by mouth daily with breakfast. mupirocin (BACTROBAN) 2 % ointment Apply 1 application to affected area two times a day. spironolactone (ALDACTONE) 50 mg tablet Take 50 [...] Currently Drug use: Not Currently Tobacco Use: Types: Cigarettes REVIEW OF SYSTEMS: The remainder of the ROS was reviewed with the patient and is negative except as noted. OBJECTIVE: General: Pleasant in no acute distress Lower extremity exam: Vascular exam: Normal vascular exam, palpable pluses with brisk capillary fill Neurological exam: Unchanged No pain out of proportion Dermatological exam: Hyperkeratosis plantar medial LEFT great toe with tenderness to palpation Hyperkeratosis plantar lateral LEFT forefoot with tenderness to palpation Other Normal exam without rashes or lesions of skin. No evidence of evidence of petechiae, purpura, telangiectasia Musculoskeletal exam: LEFT FOOT Tenderness to palpation plantar hallux interphalangeal joint Limited range of motion 1st metatarsal phalangeal joint at site of previous hallux valgus surgery Depress (more content not included)... [facility] 10-05-2024 History of Presen t illness Narrative Patient Visit for Gary Vigil 1985 39 year old female Date of Service: October 05, 2024 SUBJECTIVE: Chief Complaint: Patient presents with: Left Foot - Established Patient, Post Op /Pain Scales: Verbal (Numeric Rating or Visual Analog Scale) Pain Level: 8 Pain Location: Foot-Left Description: Aching, Sharp, Sore, Throbbing, Numbness Duration Amount of Time: 5 Duration Units: Months Frequency: Continuous Comments: She is here for a follow up of the left foot. Surgery performed on 05/01/24. Additional HPI: LEFT plantar foot pain Recurrent hyperkeratosis Pain 1st metatarsal phalangeal joint Pain plantar hallux interphalangeal joint Worse with activity Pain with standing PCP: No primary care provider on file. No past medical history on file. Current Outpatient Medications Medication Sig semaglutide (OZEMPIC) 1 mg/dose (4 mg/3 mL) pen Inject 1 mg subcutaneously one time a week. empagliflozin (JARDIANCE) 25 mg tablet Take 25 mg by mouth daily with breakfast. mupirocin (BACTROBAN) 2 % ointment Apply 1 application to affected area two times a day. spironolactone (ALDACTONE) 50 mg tablet Take 50 [...] 50 mg by mouth daily at bedtime. [employer] TEST test strip twice daily. TEST TWICE [...] Currently Drug use: Not Currently Tobacco Use: Types: Cigarettes REVIEW OF SYSTEMS: The remainder of the ROS was reviewed with the patient and is negative except as noted. OBJECTIVE: General: Pleasant in no acute distress Lower extremity exam: Vascular exam: Normal vascular exam, palpable pluses with brisk capillary fill Neurological exam: Unchanged No pain out of proportion Dermatological exam: Hyperkeratosis plantar medial LEFT great toe with tenderness to palpation Hyperkeratosis plantar lateral LEFT forefoot with tenderness to palpation Other Normal exam without rashes or lesions of skin. No evidence of evidence of petechiae, purpura, telangiectasia Musculoskeletal exam: LEFT FOOT Tenderness to palpation plantar hallux interphalangeal joint Limited range of motion 1st metatarsal phalangeal joint at site of previous hallux valgus surgery Depressed arch height with weight bearing Other Gross range of motion appears to be intact to ankle and foot Other Gross overall Manual muscle strength evaluation relatively intact LABS: Most recent labs reviewed LABORATORY STUDIES: Recent Labs 03/20/24 1053 HBA1C 8.2* ASSESSMENT: R52, L90.5 Painful scar (primary encounter diagnosis) E11.49 DM (diabetes mellitus), type 2 with neurological complications ([facility]) M79.2 Neuralgia of left lower extremity M25.572, G89.29 Chronic pain of left ankle L85.9 Hyperkeratosis Z98.890 History of foot surgery M79.7 Fibromyalgia PLAN: Explained to the patient etiology and treatment plan. In order to perform a complete physical exam, hyperkeratosis LEFT FOOT reduced with #15 scalpel blade was performed. This incidental service is integral to the evaluation and management visit in order to appropriately manage and treat the patient (for their complaint or for this visit). Education regarding wearing appropriate shoes Recommend CeraVe topical cream emollient twice daily or equivalent She has returned to work Activity as tolerated if no or limited symptoms All questions were answered. Gary Vigil appeared to be well informed. Greater than 50% of the visit was spent face to face counseling and/or coordinating care for the patient. Eulalia Fuentes DPM documented in this encounter [facility] 08-31-2024 Note HNO ID: [id number] Author: EULALIA FUENTES DPM Service: ? Author Type: Physician Type: Progress Notes Filed: 08/31/2024 10:46 Note Text: Patient Visit for Gary Vigil 1985 39 year old female SUBJECTIVE: Chief Complaint: Patient presents with: Left Foot - Established Patient, Post Op Pain Scales: Verbal (Numeric Rating or Visual Analog Scale) Pain Level: 9 Pain Location: Foot-Left Description: Aching, Cramping, Incision, Numbness, Pressure, Sharp, Shooting, Sore, Spasm, Stabbing, Stiffness, Throbbing Duration Amount of Time: 12 Duration Units: Weeks (post op) Frequency: Continuous Intervention/Comfort measure: Relaxation, Massage, Pillow support, Positioning Comments: She is here for a 12 week post op of the left foot. Surgery performed on 05/01/24. Additional HPI: LEFT plantar foot pain Recurrent hyperkeratosis Pain 1st metatarsal phalangeal joint Pain plantar hallux interphalangeal joint Worse with activity Pain with standing PCP: No primary care provider on file. No past medical history on file. Current Outpatient Medications Medication Sig mupirocin (BACTROBAN) 2 % ointment Apply 1 application to affected area two times a day. dulaglutide (TRULICITY) 1.5 mg/0.5 mL pen injector [...] Currently Drug use: Not Currently Tobacco Use: Types: Cigarettes REVIEW OF SYSTEMS: The remainder of the ROS was reviewed with the patient and is negative except as noted. OBJECTIVE: General: Pleasant in no acute distress Lower extremity exam: Vascular exam: Normal vascular exam, palpable pluses with brisk capillary fill Neurological exam: Unchanged No pain out of proportion Dermatological exam: Hyperkeratosis plantar medial LEFT great toe with tenderness to palpation Hyperkeratosis plantar lateral LEFT forefoot with tenderness to palpation Other Normal exam without rashes or lesions of skin. No evidence of evidence of petechiae, purpura, telangiectasia Musculoskeletal exam: LEFT FOOT Tenderness to palpation plantar hallux interphalangeal joint Limited range of motion 1st metatarsal phalangeal joint at site of previous (more content not included)... [facility] 08-31-2024 History of Presen t illness Narrative Patient Visit for Gary Vigil 1985 39 year old female SUBJECTIVE: Chief Complaint: Patient presents with: Left Foot - Established Patient, Post Op Pain Scales: Verbal (Numeric Rating or Visual Analog Scale) Pain Level: 9 Pain Location: Foot-Left Description: Aching, Cramping, Incision, Numbness, Pressure, Sharp, Shooting, Sore, Spasm, Stabbing, Stiffness, Throbbing Duration Amount of Time: 12 Duration Units: Weeks (post op) Frequency: Continuous Intervention/Comfort measure: Relaxation, Massage, Pillow support, Positioning Comments: She is here for a 12 week post op of the left foot. Surgery performed on 05/01/24. Additional HPI: LEFT plantar foot pain Recurrent hyperkeratosis Pain 1st metatarsal phalangeal joint Pain plantar hallux interphalangeal joint Worse with activity Pain with standing PCP: No primary care provider on file. No past medical history on file. Current Outpatient Medications Medication Sig mupirocin (BACTROBAN) 2 % ointment Apply 1 application to affected area two times a day. dulaglutide (TRULICITY) 1.5 mg/0.5 mL pen injector [...] Currently Drug use: Not Currently Tobacco Use: Types: Cigarettes REVIEW OF SYSTEMS: The remainder of the ROS was reviewed with the patient and is negative except as noted. OBJECTIVE: General: Pleasant in no acute distress Lower extremity exam: Vascular exam: Normal vascular exam, palpable pluses with brisk capillary fill Neurological exam: Unchanged No pain out of proportion Dermatological exam: Hyperkeratosis plantar medial LEFT great toe with tenderness to palpation Hyperkeratosis plantar lateral LEFT forefoot with tenderness to palpation Other Normal exam without rashes or lesions of skin. No evidence of evidence of petechiae, purpura, telangiectasia Musculoskeletal exam: LEFT FOOT Tenderness to palpation plantar hallux interphalangeal joint Limited range of motion 1st metatarsal phalangeal joint at site of previous hallux valgus surgery Depressed arch height with weight bearing Other Gross range of motion appears to be intact to ankle and foot Other Gross overall Manual muscle strength evaluation relatively intact LABS: Most recent labs reviewed LABORATORY STUDIES: Recent Labs 03/20/24 1053 HBA1C 8.2* ASSESSMENT: M79.672 Left foot pain (primary encounter diagnosis) Z98.890 Post-operative state R26.2 Difficulty walking R52, L90.5 Painful scar 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 In order to perform a complete physical exam, hyperkeratosis LEFT FOOT reduced with #15 scalpel blade was performed. This incidental service is integral to the evaluation and management visit in order to appropriately manage and treat the patient (for their complaint or for this visit). Education regarding wearing appropriate shoes Return to work September 08 Activity as tolerated if no or limited symptoms All questions were answered. Gary Vigil appeared to be well informed. Greater than 50% of the visit was spent face to face counseling and/or coordinating care for the patient. Eulalia Fuentes DPM documented in this encounter [facility] 08-07-2024 Telephone encounter Note Type of form: Short-term Disability Form received via walk in When form is completed, Form has been forwarded to handing off form directly to Margie Grubbs [facility] 08-07-2024 Miscellaneous Notes Type of form: Short-term Disability Form received via walk in When form is completed, Form has been forwarded to handing off form directly to Margie Grubbs documented in this encounter [facility] 08-03-2024 Telephone encounter Note Form was obtained in [place]. It is being scanned into the chart and will be completed and faxed out tomorrow. [facility] 08-03-2024 Miscellaneous Notes Form was obtained in [place]. It is being scanned into the chart and will be completed and faxed out tomorrow. Called and informed patient we have not received a new fax from [employer]. She informed me they sent one 2 days ago and she sent one from her local library today. Informed patient I will reach out and see if this paperwork was obtained. Patient is calling again asking if you received the fax she sent today as mentioned below. Patient is asking for a call back today as she has not heard back since early last week. Please advise. Patient calling again, advising that she is faxing in paperwork today that she needs filled out for her workplace [employer]. She is including the return fax # with that as well. She is also requesting most recent office notes from 07/22 to be faxed to [employer]. Please advise Gary is calling Eulalia Fuentes DPM today with concern regarding dropping off paperwork tomorrow to office & have it filled out right away States this is Medical paperwork for her current workplace Please advise [phone] Patient has been identified by name and birthdate. Duration of symptoms: N/A Person calling: self Call patient at: on cell [phone] (home) [phone] (cell) Was an appointment scheduled: No Closing statement: Results or non-symptom based questions: Thank you for calling [facility], your call will be returned within the next business day. Sera Bynum documented in this encounter [facility] 08-03-2024 Telephone encounter Note Called and informed patient we have not received a new fax from [employer]. She informed me they sent one 2 days ago and she sent one from her local library today. Informed patient I will reach out and see if this paperwork was obtained. [facility] 08-03-2024 Telephone encounter Note Patient is calling again asking if you received the fax she sent today as mentioned below. Patient is asking for a call back today as she has not heard back since early last week. Please advise. [facility] 08-03-2024 Telephone encounter Note Patient calling again, advising that she is faxing in paperwork today that she needs filled out for her workplace [employer]. She is including the return fax # with that as well. She is also requesting most recent office notes from 07/22 to be faxed to [facility]. Please advise [facility] 07-30-2024 Telephone encounter Note Gary is calling Eulalia Fuentes DPM today with concern regarding dropping off paperwork tomorrow to office & have it filled out right away States this is Medical paperwork for her current workplace Please advise [phone] Patient has been identified by name and birthdate. Duration of symptoms: N/A Person calling: self Call patient at: on cell [phone] (home) [phone] (cell) Was an appointment scheduled: No Closing statement: Results or non-symptom based questions: Thank you for calling [facility], your call will be returned within the next business day. Sera Bynum [facility] 07-30-2024 History of Presen t illness Narrative Reason for Appointment: Patient ID: Gary Vigil is a 39 y.o. female who presents for Post-op Visit Patient presents today for 1 Week Post Op Follow Up appointment. MEDICATIONS Current Outpatient Medications Medication Instructions Acetaminophen Extra Strength 500 MG tablet Ajovy 225 MG/1.5ML auto-injector citalopram (CeleXA) 20 MG tablet Every 24 hours cyclobenzaprine (Flexeril) 10 MG tablet take 1 tablet by mouth twice a day if needed for 15 DAYS furosemide (Lasix) 20 MG tablet montelukast (SINGULAIR) 10 mg, Oral, Daily omeprazole (PriLOSEC) [address] capsule Every 24 hours Ozempic (0.25 or 0.5 MG/DOSE) 0.5 mg, Subcutaneous, Weekly potassium chloride CR (Klor-Con M20) 20 MEQ ER tablet take 1 tablet by mouth three times a day with food Ventolin HFA 108 (90 Base) MCG/ACT inhaler ALLERGIES Allergies Allergen Reactions Tramadol Anaphylaxis and Unknown Other Reaction(s): Comments: Heart Stops Ketorolac Hives Other Reaction(s): Dermatitis Comments: Hives Prednisone Hives and Unknown Other Reaction(s): angry rage PROBLEMS Active Ambulatory Problems Diagnosis Date Noted No Active Ambulatory Problems Resolved Ambulatory Problems Diagnosis Date Noted No Resolved Ambulatory Problems Past Medical History: Diagnosis Date Abdominal cramping Abnormal uterine bleeding Anemia Anxiety Asthma (CMS/HCC) Bipolar disorder ([facility]/HCC) Cervicitis Depression ([facility]/HCC) Depression (CMS/HCC) Diabetes ([facility]) Diabetic peripheral neuropathy associated with type 2 diabetes mellitus ([facility]/HCC) Fibromyalgia H/O psychiatric care Heart disease History of high blood pressure History of migraine headaches Hypercholesterolemia ([facility]/HCC) Hyperkalemia Hyperlipidemia ([facility]/HCC) Hypertension ([facility]/HCC) IBS (irritable bowel syndrome) Kidney disease Liver disease Menorrhagia Mood disorder ([facility]/HCC) Neuritis Obesity Smoker Thyroid disease ([facility]/HCC) Trichimoniasis Vaginal itching HISTORY PAST MEDICAL HISTORY SOCIAL HISTORY Past Medical History: Diagnosis Date Abdominal cramping Abnormal uterine bleeding Anemia Anxiety Asthma ([facility]/HCC) Bipolar disorder ([facility]/HCC) Cervicitis Depression ([facility]/HCC) Depression (CMS/HCC) Diabetes ([facility]/HCC) Diabetic peripheral neuropathy associated with type 2 diabetes mellitus ([facility]/HCC) Fibromyalgia H/O psychiatric care Heart disease History of high blood pressure History of migraine headaches Hypercholesterolemia ([facility]/HCC) Hyperkalemia Hyperlipidemia ([facility]/HCC) Hypertension ([facility]/HCC) IBS (irritable bowel syndrome) Kidney disease Liver disease Menorrhagia Mood disorder ([facility]/HCC) Neuritis Obesity Smoker Thyroid disease ([facility]) Trichimoniasis Vaginal itching Social History Tobacco Use Smoking status: Every Day Current packs/day: 1.50 Average packs/day: 1.5 packs/day for 23.0 years (34.5 ttl pk-yrs) Types: Cigarettes Smokeless tobacco: Never Substance Use Topics Alcohol use: Never Drug use: Never FAMILY HISTORY Family History Problem Relation Name Age of Onset Diabetes Mother Amanda Vigil Heart disease Mother Amanda Vigil Rheum arthritis Mother Amanda Vigil Asthma Mother Amanda Vigil Migraines Mother Amanda Vigil No Known Problems Sister 2 sisters No Known Problems Brother Cancer Other Family history Diabetes Other Family history Hypertension Other Family history Coronary artery disease Other Family history No Known Problems Daughter 3 daughters No Known Problems Son SURGICAL HISTORY Past Surgical History: Procedure Laterality Date ABLATION A-FIB 10/27/2021 CHEILECTOMY 07/2020 gastroc recession, dominga osteotomy 4th and bi lobe skin plasty to left plantar foot. Dr Sawyer GrjaedaP.M. CHOLECYSTECTOMY 06/17/2016 CYSTOSCOPY 08/28/2023 DILATION AND CURETTAGE 2020 with hysteroscopy DILATION AND CURETTAGE 11/07/2020 diagnostic laparoscopy HYSTERECTOMY 08/28/2023 INCISE AND DRAIN ABSCESS 05/21/2022 Excision and drain of right axillary abscess- [facility] LAPAROSCOPY DIAGNOSTIC / BIOPSY / ASPIRATION / LYSIS 07/16/2024 LAPAROSCOPY DIAGNOSTIC / BIOPSY / ASPIRATION / LYSIS 07/16/2024 OTHER SURGICAL HISTORY 01/2021 removal of painful hardware, peroneal nerve release to LLE Dr Sawyer GrajedaP.M. ROBOTIC ASSISTED HYSTERECTOMY 08/28/2023 SALPINGECTOMY Bilateral 08/28/2023 TUBAL LIGATION Bilateral 2009 division of fallopian tubes TUMOR REMOVAL 2015 abdominal REVIEW OF SYSTEMS Review of Systems: Review of Systems Constitutional: Negative. HENT: Negative. Eyes: Negative. Respiratory: Negative. Cardiovascular: Negative. Gastrointestinal: Negative. Genitourinary: Negative. Musculoskeletal: Negative. Skin: Negative. Neurological: Negative. All other systems reviewed and are negative. Hematological: Negative. Endocrine: Negative. Allergic/Immunologic: Negative. OBJECTIVE Objective: Physical Exam Constitutional: Appearance: Normal appearance. She is normal weight. HENT: Head: Normocephalic. Cardiovascular: Rate and Rhythm: Normal rate. Pulses: Normal pulses. Pulmonary: Effort: Pulmonary effort is normal. Breath sounds: Normal breath sounds. Abdominal: General: Bowel sounds are normal. Palpations: Abdomen is soft. Comments: Incisions healing well Musculoskeletal: General: Normal range of motion. Neurological: General: No focal deficit present. Mental Status: She is alert and oriented to person, place, and time. Psychiatric: Mood and Affect: Mood normal. Behavior: Behavior normal. Thought Content: Thought content normal. Judgment: Judgment normal. Vitals and nursing note reviewed. Vitals: Estimated body mass index is 37.57 kg/m as calculated from the following: Height as of 06/11/24: 5' 6 . Weight as of this encounter: 232 lb 12.8 oz. BP: 120/82 No LMP recorded (lmp unknown). Patient has had a hysterectomy. ASSESSMENT & PLAN ICD-10-CM 1. Postoperative examination Z09 Pt states she has left side post op pains/p diagnostic lap, exam benign. Pt incisions healing well, abdomen soft. We will send in deer for pain. Pathology not yet returned, we will follow up as needed Documented by CORIE Chu on behalf of: CORIE Chu documented in this encounter [facility] 07-22-2024 Note HNO ID: [id number] Author: EULALIA FUENTES DPM Service: ? Author Type: Physician Type: Progress Notes Filed: 07/22/2024 11:51 Note Text: Gary Vigil 1985 July 22, 2024 HPI: Patient presents for postop follow up. Still having pain at site of hyperkeratosis plantar medial great toe and plantar forefoot Perception of numbness and tingling great toe O: Neurovascular status is grossly intact. Surgical site well healed. Calf soft non tender, no evidence of Deep Venous Thrombosis. Toes in good alignment. No pain with ROM (Range of Motion) joints. Manual muscle strength evaluation intact Hyperkeratosis plantar lateral forefoot and medial great toe with tenderness to palpation A: Progressing well post op P: In order to perform a complete physical exam, Utilizing a #15 scalpel blade hyperkeratosis reduction was performed. This incidental service is integral to the evaluation and management visit in order to appropriately manage and treat the patient (for their complaint or for this visit). Bi laminent PPT insoles custom fabricated and dispensed Home care education and instructions discussed CeraVe topical cream emollient twice daily or equivalent Follow up 1 month Eulalia Fuentes DPM [facility] 07-22-2024 History of Presen t illness Narrative Gary Vigil 1985 July 22, 2024 HPI: Patient presents for postop follow up. Still having pain at site of hyperkeratosis plantar medial great toe and plantar forefoot Perception of numbness and tingling great toe O: Neurovascular status is grossly intact. Surgical site well healed. Calf soft non tender, no evidence of Deep Venous Thrombosis. Toes in good alignment. No pain with ROM (Range of Motion) joints. Manual muscle strength evaluation intact Hyperkeratosis plantar lateral forefoot and medial great toe with tenderness to palpation A: Progressing well post op P: In order to perform a complete physical exam, Utilizing a #15 scalpel blade hyperkeratosis reduction was performed. This incidental service is integral to the evaluation and management visit in order to appropriately manage and treat the patient (for their complaint or for this visit). Bi laminent PPT insoles custom fabricated and dispensed Home care education and instructions discussed CeraVe topical cream emollient twice daily or equivalent Follow up 1 month Eulalia Fuentes DPM documented in this encounter [facility] 07-10-2024 Telephone encounter Note Type of form: Short-term Disability Form received via fax When form is completed, Form has been forwarded to Dr. Fuentes's mail slot at [place] [employer] [facility] 07-10-2024 Miscellaneous Notes Type of form: Short-term Disability Form received via fax When form is completed, Form has been forwarded to Dr. Fuentes's mail slot at [employer] [facility] documented in this encounter [facility] 07-06-2024 History of Presen t illness Narrative Most recently seen February 2024. Subjective : Lost 10 pounds since last office visit Planning oophorectomy on the right side near future. History so Far : 1. Hypertension 2. [...] Objective Wt Readings from Last 3 Encounters: 07/06/24 102 kg (224 lb) 03/23/24 105 kg (232 lb) 04/15/23 102 kg (224 lb) Vitals: 07/06/24 1008 BP: 120/72 BP Location: Left arm Patient Position: Sitting Pulse: 80 Weight: 102 kg (224 lb) Height: 1.676 m (5' 6 ) Physical Exam: GENERAL APPEARANCE: in no [...] Do not crush, chew, or split. Ozempic 0.25 mg or 0.5 mg (2 mg/3 mL) pen injector DIAL AND INJECT UNDER THE SKIN 0.5 MG WEEKLY potassium chloride CR 20 mEq ER tablet 20 mEq, oral, Daily, Do not crush or chew. rizatriptan (MAXALT) 5 mg, oral, Once as needed, May repeat in 2 hours if unresolved. Do not exceed 30 mg in 24 hours. rOPINIRole (REQUIP) 1 mg, oral, 3 times daily SITagliptin phosphate (JANUVIA) 100 mg, oral, Daily spironolactone (ALDACTONE) 50 mg, oral, Daily Allergies Allergen Reactions Tramadol Anaphylaxis, Other and Unknown Other Reaction(s): Comments: Heart Stops Ketorolac Hives Other Reaction(s): Dermatitis Comments: Hives Prednisone Hives, Other and Unknown Other Reaction(s): angry rage LABS: Lab Results Component Value Date HGBA1C 8.2 (H) 03/20/2024 No other laboratory data available. Patient Active Problem List Diagnosis Date Noted BMI 38.0-38.9,adult 03/23/2024 Smoker 03/23/2024 Hyperlipidemia 03/23/2024 Medication course changed 03/23/2024 Abnormal EKG 12/30/2023 Anemia 12/30/2023 Diabetes mellitus type II, non insulin dependent (Multi) 12/30/2023 Shortness of breath 12/30/2023 Primary hypertension 12/30/2023 Migraine 12/30/2023 Assessment: 1. Medication course changed 2. Primary hypertension Follow Up In Cardiology 3. Diabetes mellitus type II, non insulin dependent (Multi) 4. Hyperlipidemia, unspecified hyperlipidemia type Cardiac risk for ovarian surgery is considered acceptable and may proceed as planned. Patient is losing weight on Ozempic, she would like to increase the dose, no untoward effects, overall diabetes management is per primary MD, and patient has upcoming appointment. Talked about healthy lifestyle choices. Dose of Ozempic will be increased to 1 mg subcu every week. Comprehensive profile lipid profile near future Follow up : 6 months Provider Attestation - Scribe documentation All medical record entries made by the Scribe were at my direction and personally dictated by me. I have reviewed the chart and agree that the record accurately reflects my personal performance of the history, physical exam, discussion and plan. documented in this encounter [facility] Work Phone: 07-06-2024 Instructions Marlys Mari LPN - 07/06/2024 10:00 AM EDT Please bring all medicines, vitamins, and herbal supplements with you when you come to the office. Prescriptions will not be filled unless you are compliant with your follow up appointments or have a follow up appointment scheduled as per instruction of your physician. Refills should be requested at the time of your visit. BMI was above normal measurement. Current weight: 102 kg (224 lb) Weight change since last visit (-) denotes wt loss -8 lbs Weight loss needed to achieve BMI 25: 69.4 Lbs Weight loss needed to achieve BMI 30: 38.5 Lbs Provided instructions on dietary changes Provided instructions on exercise. Gary Vigil is clear for surgery from a cardiac standpoint documented in this encounter [facility] Work Phone: 06-23-2024 Note HNO ID: [id number] Author: EULALIA FUENTES DPM Service: ? Author [...] gave out my personal mobile telephone number [phone] to call at anytime if needed. Instructed that if I am not available should contact the reconciling clerk supervisor pairing and inspecting or go to the emergency room. Social : daughter is getting Aug 21 Eulalia Fuentes DPM [facility] 06-23-2024 History of Presen t illness Narrative [...] gave out my personal mobile telephone number [phone] to call at anytime if needed. Instructed that if I am not available should contact the reconciling clerk supervisor pairing and inspecting or go to the emergency room. Social : daughter is getting Aug 21 Eulalia Fuentes DPM documented in this encounter [facility] 06-08-2024 Note HNO ID: [id number] Author: EULALIA FUENTES DPM Service: ? Author Type: Physician Type: Progress Notes Filed: 06/08/2024 15:48 Note Text: Technical difficulty with virtual visit today. Virtual visit converted to telephone call. Follow up call to patient Still having symptoms plantar foot at site of surgery She will come in for in person visit as soon as possible. Eulalia Fuentes DPM [facility] 06-08-2024 History of Presen t illness Narrative Technical difficulty with virtual visit today. Virtual visit converted to telephone call. Follow up call to patient Still having symptoms plantar foot at site of surgery She will come in for in person visit as soon as possible. Eulalia Fuentes DPM documented in this encounter [facility] 06-05-2024 Telephone encounter Note Called and left a voicemail switched appointment to virtual. [facility] 06-05-2024 Miscellaneous Notes Called and left [...] seen on 06/08/24. documented in this encounter [facility] 06-05-2024 Telephone encounter Note -Pt Verified by Name and Date of -pt calling to report has 'knot' under left pinkie toe that is sore to touch. Pt just noticed recently. -pt has OV 06/08/24 and will discuss with provider. -pt also thought she was able to do VV.--please advise when pt seen on 06/08/24. [facility] 05-20-2024 Note HNO ID: [id number] Author: EULALIA FUENTES DPM Service: ? Author [...] gave out my personal mobile telephone number [phone] to call at anytime if needed. Instructed that if I am not available should contact the reconciling clerk supervisor pairing and inspecting or go to the emergency room. Recommend off work for now due to delayed healing, post operative pain Diabetes related delayed healing Eulalia Fuentes DPM [facility] 05-20-2024 History of Presen t illness Narrative [...] gave out my personal mobile telephone number [phone] to call at anytime if needed. Instructed that if I am not available should contact the reconciling clerk supervisor pairing and inspecting or go to the emergency room. Recommend off work for now due to delayed healing, post operative pain Diabetes related delayed healing Eulalia Fuentes DPM documented in this encounter [facility] 05-12-2024 Telephone encounter Note spoke with the patient on the phone and provided guidance and treatment options. Instructed patient to go to the emergency room if symptoms worse and she is schedule to be seen by the provider next week. [facility] 05-12-2024 Miscellaneous Notes spoke with the patient on the phone and provided guidance and treatment options. Instructed patient to go to the emergency room if symptoms worse and she is schedule to be seen by the provider next week. Pt calls 6-7 foot surgery noted C/o Left foot swelling [...] assist with above documented in this encounter [facility] 05-11-2024 Telephone encounter Note Pt calls [...] transferred to ortho to assist with above [facility] 05-07-2024 Note HNO ID: [id number] Author: EULALIA FUENTES DPM Service: ? Author [...] gave out my personal mobile telephone number [phone] to call at anytime if needed. Instructed that if I am not available should contact the reconciling clerk supervisor pairing and inspecting or go to the emergency room. Eulalia Fuentes DPM [facility] 05-07-2024 History of Presen t illness Narrative [...] gave out my personal mobile telephone number [phone] to call at anytime if needed. Instructed that if I am not available should contact the reconciling clerk supervisor pairing and inspecting or go to the emergency room. Eulalia Fuentes DPM documented in this encounter [facility] 05-05-2024 Telephone encounter Note Called and spoke with patient new paperwork was suppose to be faxed over to the [place] office yesterday. Informed patient I will be in [place] tomorrow and will keep and eye out for the paperwork to be completed and sent out as soon as possible. Informed her we are allocated 7-10 business days to complete the forms. [facility] 05-05-2024 Miscellaneous Notes Called and spoke with patient new paperwork was suppose to be faxed over to the [place] office yesterday. Informed patient I will be in [place] tomorrow and will keep and eye out for the paperwork to be completed and sent out as soon as possible. Informed her we are allocated 7-10 business days to complete the forms. [facility] Eulalia Fuentes DPM today to request FMLA Paperwork to be updated and sent to her employer. Patient states her original surgery was cancelled and needs this done AGUS. Patient states she just had the surgery on 05/01/24. Patient has been identified by name and birthdate. Duration of symptoms: N/A Person calling: self Call patient at: on cell [phone] (home) [phone] (cell) Was an appointment scheduled: No Closing statement: Results or non-symptom based questions: Thank you for calling [facility], your call will be returned within the next business day. Jael Reese documented in this encounter [facility] 05-05-2024 Telephone encounter Note Gary is calling Eulalia Fuentes DPM today to request FMLA Paperwork to be updated and sent to her employer. Patient states her original surgery was cancelled and needs this done AGUS. Patient states she just had the surgery on 05/01/24. Patient has been identified by name and birthdate. Duration of symptoms: N/A Person calling: self Call patient at: on cell [phone] (home) [phone] (cell) Was an appointment scheduled: No Closing statement: Results or non-symptom based questions: Thank you for calling [facility], your call will be returned within the next business day. Jael Reese [facility] 05-01-2024 Note HNO ID: [id number] Author: SEJAL LAI MD Service: Anesthesiology Author Type: Anesthesiologist Type: Anesthesia Procedure Notes Filed: 05/01/2024 13:44 Note Text: ANESTHESIOLOGY PROCEDURE NOTE Airway General Information Procedure Start Time/Medication Administration: 05/01/2024 7:42 AM Procedure End Time: 05/01/2024 7:42 AM Patient location during procedure: OR Staffing Anesthesiologist: Sejal Lai MD ERP DEVELOPER: Angus Crenshaw APRN.ERP DEVELOPER Performed by: ERP DEVELOPER Indications and Patient Condition Indications for airway management: anesthesia Preoxygenated: yes anesthesia circuit Patient position: sniffing Method: asleep Difficult Mask: No Final Airway Details Final airway type: supraglottic airway Number of attempts at approach: 1 Final Supraglottic Airway: IGEL Size 4 Seal Adequate: yes Airway not difficult SIGNATURE: Angus Crenshaw APRN.ERP DEVELOPER PATIENT NAME: Gary Vigil DATE: May 01, 2024 TIME: 7:45 AM CSN: [id number] [facility] 04-27-2024 Note HNO ID: [id number] Author: EULALIA FUENTES DPM Service: ? Author [...] left lower extremity (more content not included)... [facility] 04-27-2024 History of Presen t illness Narrative [...] Eulalia Fuentes DPM documented in this encounter [facility] 04-14-2024 Telephone encounter Note Patient had [...] Cobb LPN April 14, 2024 8:51 AM [facility] 04-14-2024 Miscellaneous Notes Patient had recent [...] 2024 8:51 AM documented in this encounter [facility] 04-08-[address] Kline, [...] had to be rescheduled. Thank you, Sugar [facility] Work Phone: 04-08-[address] [...] let you know that she went to [facility] ED yesterday and she has an infected [...] leave any message. documented in this encounter [facility] 04-06-2024 Telephone encounter Note The pt is calling, she just wanted to let you know that she went to [facility] ED yesterday and she has an infected [...] in contacts and may leave any message. [facility] 03-24-2024 Telephone encounter Note Faxed FMLA form to [email or web address] Received fax confirmation Spoke with patient Will have scanned into records. [facility] 03-24-2024 Miscellaneous Notes Faxed FMLA form to [email or web address] Received fax confirmation Spoke with patient Will have scanned into records. Type of form: FMLA Form received via fax When form is completed, Fax form to Form has been forwarded to [facility] Lissette Saleh documented in this encounter [facility] 03-24-2024 Telephone encounter Note Type of form: FMLA Form received via fax When form is completed, Fax form to Form has been forwarded to [facility] Lissette Saleh [facility] 03-23-2024 History of Presen t illness [...] Krystal Koehler MD. documented in this encounter [facility] Work Phone: 03-23-2024 Instructions Malia Valdivia LPN [...] of your visit. documented in this encounter [facility] Work Phone: 03-20-2024 History and physical note [...] (BMI) of 36.0 to 36.9 in adult ([facility]) Assessment: Body mass index is 36.65 kg/m [...] COVID-19 original vaccine, age 12+ yr, monovalent ([employer]) 01/17/2022 Imm Admin: COVID-19 original vaccine, age 12+ yr, monovalent ([employer]) 02/07/2021 Outside Immunization: COVID-19 mRNA, Comirnaty ([employer]ida) 01/17/2021 Outside Immunization: COVID-19 mRNA, Comirnaty (Aspida) REVIEW OF SYSTEMS: PAIN ASSESSMENT: Pain Pain Level: 8 Pain Location: Foot-Left Description: Aching, Sharp Duration Units: Years Frequency: Continuous Intervention/Comfort measure: Medication, Positioning General: No weight loss, malaise or fevers. Neuro: No history of TIA's, stroke, EDUCATIONAL ADMINISTRATOR tumor, impaired sensorium, hemiplegia, paraplegia or quadraplegia. No neurological symptoms or problems. +Migraines Respiratory: Negative for Bronchitis, COPD, Current cough, Home O2 +Tobacco Use +KADEN +Asthma Cardiovascular: Negative for Recent [place], Angina, Chest Pain, PVD, DVT/PE +HLD GI: Negative for Nausea, Vomiting, Abdominal pain +GERD : Negative for dysuria, incontinence, hematuria, and hesitancy SUPERINTENDENT MENAGERIE: Negative for abnormal vaginal bleeding, abnormal vaginal [...] and voices comprehension and compliance. SIGNATURE: Severiano Vrik APRN.CNP PATIENT NAME: Gary Vigil DATE: 03/20/2024 TIME: 10:18 AM T [facility] 03-20-2024 History and physical note Images [...] days prior to procedure On Follows with Family health services To get [...] (BMI) of 36.0 to 36.9 in adult ([facility]) Assessment: Body mass index is 36.65 kg/m [...] Covid Immunization Dates Overdue - Covid-19 Vaccine (2022- season) Overdue since 07/26/2023 02/07/2022 Imm Admin: COVID-19 original vaccine, age 12+ yr, monovalent ([employer] [facility]) 01/17/2022 Imm Admin: COVID-19 original vaccine, age 12+ yr, monovalent ([employer] [facility]) 02/07/2021 Outside Immunization: COVID-19 mRNA, Comirnaty (Aspida) 01/17/2021 Outside Immunization: COVID-19 mRNA, Comirnaty (Aspida) REVIEW OF SYSTEMS: PAIN ASSESSMENT: Pain Pain Level: 8 Pain Location: Foot-Left Description: Aching, Sharp Duration Units: Years Frequency: Continuous Intervention/Comfort measure: Medication, Positioning General: No weight loss, malaise or fevers. Neuro: No history of TIA's, stroke, EDUCATIONAL ADMINISTRATOR tumor, impaired sensorium, hemiplegia, paraplegia or quadraplegia. No neurological symptoms or problems. +Migraines Respiratory: Negative for Bronchitis, COPD, Current cough, Home O2 +Tobacco Use +KADEN +Asthma Cardiovascular: Negative for Recent IL, Angina, Chest Pain, PVD, DVT/PE +HLD GI: Negative for Nausea, Vomiting, Abdominal pain +GERD : Negative for dysuria, incontinence, hematuria, and hesitancy SUPERINTENDENT MENAGERIE: Negative for abnormal vaginal bleeding, abnormal vaginal [...] TIME: 10:18 AM documented in this encounter [facility] 03-19-2024 Instructions Severiano Virk APRN.CNP - 03/19/2024 1:16 PM EDT PATIENT PREOPERATIVE INSTRUCTIONS You Surgeon has scheduled you for your procedure at this surgery center: [facility]: [phone] --[address] [place] [address]. Please read below carefully for your personalized [...] Procedures: - YOU MUST HAVE A RESPONSIBLE AUTOMOTIVE SERVICE WRITER TAKE YOU HOME. A UTILITY WORKER DRIVER OR RESORT HOST CANNOT BE MADE A RESPONSIBLE AUTOMOTIVE SERVICE WRITER. - We recommend that a responsible person [...] Advance Directive, please fax a copy to [phone] or email to for it to be [...] Severiano Virk APRN.LILLY documented in this encounter [facility] 03-17-2024 Telephone encounter Note I discussed with the patient local topical wound care Recommend clean with sterile normal saline wound wash Use Honey (MEDIHONEY, HONEY,) 100 % paste topical Rx Cefadroxil (DURICEF) 500 mg capsule If not improved recommend follow up and further work up All questions were answered. Eulalia Fuentes DPM [facility] 03-17-2024 Miscellaneous Notes I discussed with [...] calling: self Call patient at: at home [phone] (home) [phone] (cell) Was an appointment scheduled: No Closing statement: Results or non-symptom based questions: Thank you for calling [facility], your call will be returned within the next business day. Darcie Henriquez documented in this encounter [facility] 03-17-2024 Telephone encounter Note [facility] Eulalia Fuentes DPM today to [...] calling: self Call patient at: at home [phone] (home) [phone] (cell) Was an appointment scheduled: No Closing statement: Results or non-symptom based questions: Thank you for calling [facility], your call will be returned within the next business day. Darcie Henriquez [facility] 03-11-2024 History of Presen t illness Narrative Program_ID:[id number] Access Code: [email or web address] URL: [email or web address] Date: 03-11-2024 Prepared By: Samara Greco Program Notes Patient Education - Walking with Crutches: Non Weight-Bearing - Going Up and Down Stairs With Crutches (Evl-Nkrwud-Mykklpt) - cc Gait Training Crutches Non Weight [...] Planned: 1 Planned Treatment Interventions: Therapeutic exercise (88873), Neuromuscular re-education (16888), Manual therapy (27326), Therapeutic activities (82345), Self-prison management (67792), Patient/Family/Caregiver Education, Body Mechanics Training, Gait Training (55086) PLAN FOR NEXT VISIT: Discharge pre-operatively. 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 Self-Long Term Management: 1: reviewed precautions and NWB restrictions, [...] Time : 911 Session Stop Time : 949 Samara Greco PT, DPT documented in this encounter [facility] 03-11-2024 Note HNO ID: [id number] Author: SAMARA GRECO PT, DPT Service: ? [...] Planned: 1 Planned Treatment Interventions: Therapeutic exercise (53325), Neuromuscular re-education (39785), Manual therapy (49160), Therapeutic activities (84744), Self-prison management (82443), Patient/Family/Caregiver Education, Body Mechanics Training, Gait Training (96783) PLAN FOR NEXT VISIT: Discharge pre-operatively. 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 Gina's office regarding script for equipment. Currently does [...] half of respondent (more content not included)... [facility] 03-09-2024 Note HNO ID: [id number] Author: EULALIA FUENTES DPM Service: ? Author [...] 50 mg by mouth daily at bedtime. [employer] Dan[employer] LabsTOUCH ULTRA TEST test strip twice daily. TEST [...] , HBA1C , VITD25 in the last 51767 hours. ASSESSMENT: L60.0 Ingrown toenail (primary en (more content not included)... [facility] 03-09-2024 History of Presen t illness Narrative [...] , HBA1C , VITD25 in the last 19455 hours. ASSESSMENT: L60.0 Ingrown toenail (primary encounter [...] Eulalia Fuentes DPM documented in this encounter [facility] 02-04-2024 Note HNO ID: [id number] Author: EULALIA FUENTES DPM Service: ? Author Type: Physician Type: Progress Notes Filed: 02/04/2024 17:18 Note Text: Patient called Requests overnight stay Not indicated at this time - should be out patient Recommend physical therapy for NWB (Non Weight Bearing) gait training Order placed Eulalia Fuentes DPM [facility] 02-04-2024 History of Presen t illness Narrative Patient called Requests overnight stay \ Not indicated at this time - should be out patient Recommend physical therapy for NWB (Non Weight Bearing) gait training Order placed Eulalia Fuentes DPM documented in this encounter [facility] 02-04-2024 Miscellaneous Notes Spoke with patient and scheduled surgery with Dr. Fuentes on 04/10/24. Patient stated she needed to be in the hospital for 24hrs. I explained to patient that [place] was an outpatient surgery center and advised her to discuss with Dr. Fuentes. Gave patient direct phone numbers. [phone] or [phone] documented in this encounter [facility] 02-03-2024 Note HNO ID: [id number] Author: EULLAIA FUENTES DPM Service: ? Author Type: Physician [...] LEFT forefoot Difficulty walking She works at [employer] on feet at work all day Altered gait Pes plano valgus deformity symptoms Also complains of pain related to ingrown toenails great toe bilateral and medial border nail third toe RIGHT FOOT Other Very complicated history of LEFT lower extremity symptoms with multiple surgeries Gary has had symptoms of her left foot for over 15 years states she was initially treated in [place]. In 2019 she moved to [place] was seen by Dr. Shad Jacques Previous [...] seen by Dr. Sheng Covington DPM at [facility] She is wearing slippers today PCP: No [...] capillary fill Neurological (more content not included)... [facility] 02-03-2024 History of Presen t illness Narrative [...] LEFT forefoot Difficulty walking She works at [employer] on feet at work all day Altered gait Pes plano valgus deformity symptoms Also complains of pain related to ingrown toenails great toe bilateral and medial border nail third toe RIGHT FOOT Other Very complicated history of LEFT lower extremity symptoms with multiple surgeries Gary has had symptoms of her left foot for over 15 years states she was initially treated in [place]. In 2018 she moved to [place] was seen by Dr. Shad Jacques Previous [...] seen by Dr. Sheng Covington DPM at [facility] She is wearing slippers today PCP: No [...] , HBA1C , VITD25 in the last 14240 hours. ASSESSMENT: L60.0 Ingrown toenail (primary encounter [...] Excision painful scar, hyperkeratosis plantar LEFT forefoot 16786 General anesthesia 1.5 hour No special equipment [...] Eulalia Fuentes DPM documented in this encounter [facility] 01-14-2024 Miscellaneous Notes Called patient and informed her is out of the office. She states she has an appointment for a follow 02/03/24 but is eager to be scheduled for surgery as she knows he is booking a few months out. Patient also states she will have to stay in the hospital for 24 hours after her surgery. [facility] is calling Eulalia Fuentes DPM today to request Schedule Surgery Patient calling to request to be contacted as soon as possible to schedule surgery. Please call patient at cell number. Patient has been identified by name and birthdate. Person calling: self Call patient at: on cell [phone] (cell) Was an appointment scheduled: No Closing statement: Results or non-symptom based questions: Thank you for calling [facility], your call will be returned within the next business day. Samantha Pires documented in this encounter [facility] 01-03-2024 History of Presen t illness Narrative Patient Visit for Gary Vigil 1985 38 year old female Date of Service: January 03, 2024 SUBJECTIVE: Chief Complaint: Date of Service: January 03, 2024 Additional HPI: Chief complaint today very painful hyperkeratosis plantar lateral LEFT forefoot Difficulty walking She works at [employer] on feet at work all day Altered gait Pes plano valgus deformity symptoms Other Very complicated history of LEFT lower extremity symptoms with multiple surgeries Gary has had symptoms of her left foot for over 15 years states she was initially treated in [place]. In 2018 she moved to [place] was seen by Dr. Shad Jacques Previous [...] seen by Dr. Sheng Covington DPM at [facility] She is wearing slippers today PCP: No [...] , HBA1C , VITD25 in the last 60431 hours. ASSESSMENT: Z98.890 History of foot surgery [...] Eulalia Fuentes DPM documented in this encounter [facility] 11-01-2023 History of Presen t illness [...] LEFT forefoot Difficulty walking She works at [employer] on feet at work all day Altered gait Pes plano valgus deformity symptoms Other Very complicated history of LEFT lower extremity symptoms with multiple surgeries Gary has had symptoms of her left foot for over 15 years states she was initially treated in [place]. In 2018 she moved to [place] was seen by Dr. Shad Jacques Previous [...] seen by Dr. Sheng Covington DPM at [facility] She is wearing slippers today PCP: No [...] , HBA1C , VITD25 in the last 22762 hours. 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 In 2018 she moved to [place] was seen by Dr. Shad Jacques Previous [...] seen by Dr. Sheng Covington DPM at [facility] PCP: No primary care provider on file. [...] PROT, URICACID, HBA1C, VITD25 in the last 28946 hours. ASSESSMENT: M79.671, M79.672 Pain in both [...] orthotics prosthetics for custom molded Foot Orthosis [facility] orthotic [facility] prosthetic center [phone] [facility] [phone] [facility] phone : [phone] Medically necessary for custom molded Foot Orthosis [...] Diabetes mellitus type 2 with neurological manifestations ([facility]) M25.572, G89.29 Chronic pain of left ankle L60.8 Acquired dysmorphic toenail R26.2 Difficulty walking All questions were answered. Gary Vigil appeared to be well informed. Greater than 50% of the visit was spent face to face counseling and/or coordinating care for the patient. Eulalia Fuentes DPM documented in this encounter [facility] 04-30-2022 History of Presen t illness [...] years states she was initially treated in [place]. In 2018 she moved to [place] was seen by Dr. Shad Jacques Previous [...] seen by Dr. 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 ASSESSMENT: L85.9 Hyperkeratosis (primary encounter diagnosis) [...] Eulalia Fuentes DPM documented in this encounter [facility] 03-06-2022 Miscellaneous Notes Left a message. We have received the paperwork at the [place] office and it will be here when Dr Fuentes returns to the office. Patient calling to see if [facility] ever sent over her records. Please call patient to inform. [phone] documented in this encounter [facility] Evaluation note No assessment inform ation available [facility] Work Phone: Evaluation note Diagnosis Hyperkeratosis- Primary Acquired keratoderma Neuritis of left lower extremity Neuralgia of left lower extremity History of foot surgery Personal history of surgery to other organs Diabetes mellitus type 2 with neurological manifestations (HCC) Type II or unspecified type diabetes mellitus with neurological manifestations, not stated as uncontrolled [facility] Diagnosis Pain in both feet- [...] Difficulty in walking [facility]* Diagnosis Eversion deformity of foot, left- [...] fibrosis of skin [facility]* Diagnosis History of foot surgery- Primary [...] disease of nail [facility] Diagnosis Ingrown toenail- Primary Ingrowing nail [...] Hyperkeratosis Acquired keratoderma [facility]* Diagnosis History of foot surgery- Primary [...] Hyperkeratosis Acquired keratoderma documented in this encounter [facility] note* Diagnosis Type 2 diabetes mellitus with diabetic polyneuropathy, unspecified whether long goods drier insulin use (HCC)- Primary BMI 39.0-39.9,adult Body [...] Hyperkeratosis Acquired keratoderma [facility]* Diagnosis Ingrown toenail- Primary Ingrowing nail [...] Hyperkeratosis Acquired keratoderma [facility]* Diagnosis Type 2 diabetes mellitus with diabetic polyneuropathy, unspecified whether long goods drier insulin use ([facility]) BMI 39.0-39.9,adult Body Mass Index 39.0-39.9, adult [...] Hyperkeratosis Acquired keratoderma [facility]* Diagnosis Pre-op evaluation- Primary Preoperative examination, unspecified Hyperlipidemia, unspecified hyperlipidemia type Type 2 diabetes mellitus with other specified complication, without long-term current use of insulin ([facility]) Fibromyalgia Mylagia and myositis, unspecified Migraine without [...] (BMI) of 36.0 to 36.9 in adult ([facility]) History of foot surgery Personal history of surgery to other organs DM (diabetes mellitus), type 2 with neurological complications ([facility]) Type II or unspecified type diabetes mellitus with neurological manifestations, not stated as uncontrolled Painful scar Scar condition and fibrosis of skin Hyperkeratosis Acquired keratoderma * Assessment & Plan Note - Severiano Virk APRN.CNP - 03/20/2024 10:47 AM EDT Associated Problem(s): Class 2 severe obesity due to excess calories with serious comorbidity and body mass index (BMI) of 36.0 to 36.9 in adult ([facility]) Assessment: Body mass index is 36.65 kg/m [...] 10:42 AM EDT Associated Problem(s): Migraines Assessment: Kali Monthly- Next Dose 03/24 Has rescue medication if needed * Assessment & Plan Note - Severiano Virk APRN.CNP - 03/20/2024 10:42 AM EDT Associated Problem(s): Fibromyalgia Assessment: Controlled with Tylenol * Assessment & Plan Note - Severiano Virk APRN.CNP - 03/20/2024 10:40 AM EDT Associated Problem(s): Type 2 diabetes mellitus (HCC) Assessment: On Trity (Sundays) to hold 7 days prior to procedure On Januvia Follows with [facility] To get HGB A1C today * Assessment & Plan Note - Severiano Virk APRN.CNP - 03/20/2024 10:28 AM EDT Associated Problem(s): Hyperlipidemia, unspecified Assessment: On Statin Follows with PCP [facility] Diagnosis Medication course changed- Primary Diabetes mellitus type II, non insulin dependent (Multi) Type II or unspecified type diabetes mellitus without mention of complication, not stated as uncontrolled Anemia, unspecified type Primary hypertension Unspecified essential hypertension BMI 38.0-38.9,adult Smoker Tobacco use disorder Hyperlipidemia, unspecified hyperlipidemia type documented in this encounter [facility] Work Phone: Evaluation note* Diagnosis Difficulty walking- Primary Difficulty in walking Right foot pain Pain in limb Painful scar Scar condition and fibrosis of skin Neuritis of left lower extremity Fibromyalgia Mylagia and myositis, unspecified History of foot surgery Personal history of surgery to other organs DM (diabetes mellitus), type 2 with neurological complications ([facility]) Type II or unspecified type diabetes mellitus with neurological manifestations, not stated as uncontrolled Painful scar Scar condition and fibrosis of skin Hyperkeratosis Acquired keratoderma [facility]* Diagnosis Post-operative state- Primary Other postprocedural status documented [facility]* Diagnosis Post-operative state- Primary Other postprocedural status documented [facility]* Diagnosis Pre-op evaluation- Primary Preoperative examination, unspecified Hyperlipidemia, unspecified hyperlipidemia type Type 2 diabetes mellitus with other specified complication, without long-term current use of insulin (HCC) Fibromyalgia Mylagia and myositis, unspecified Migraine without [...] (BMI) of 36.0 to 36.9 in adult ([facility]) Post-operative state- Primary Other postprocedural status documented [facility]* Diagnosis Pain in left foot Pain in limb Pre-op evaluation- Primary Preoperative examination, unspecified Hyperlipidemia, unspecified hyperlipidemia type Type 2 diabetes mellitus with other specified complication, without long-term current use of insulin (HCC) Fibromyalgia Mylagia and myositis, unspecified Migraine without [...] (BMI) of 36.0 to 36.9 in adult ([facility]) documented [facility]* Diagnosis Pre-op evaluation- Primary Preoperative examination, unspecified Hyperlipidemia, unspecified hyperlipidemia type Type 2 diabetes mellitus with other specified complication, without long-term current use of insulin (HCC) Fibromyalgia Mylagia and myositis, unspecified Migraine without [...] (BMI) of 36.0 to 36.9 in adult ([facility]) Left foot pain- Primary Pain in limb Post-operative state Other postprocedural status Difficulty walking Difficulty in walking Painful scar Scar condition and fibrosis of skin Diabetes mellitus type 2 with neurological manifestations ([facility]) Type II or unspecified type diabetes mellitus with neurological manifestations, not stated as uncontrolled [facility] Diagnosis Pre-op evaluation- Primary Preoperative examination, unspecified Hyperlipidemia, unspecified hyperlipidemia type Type 2 diabetes mellitus with other specified complication, without long-term current use of insulin (HCC) Fibromyalgia Mylagia and myositis, unspecified Migraine without [...] (BMI) of 36.0 to 36.9 in adult ([facility]) Painful scar- Primary Scar condition and fibrosis of skin DM (diabetes mellitus), type 2 with neurological complications ([facility]) Type II or unspecified type diabetes mellitus with neurological manifestations, not stated as uncontrolled Neuralgia of left lower extremity Chronic pain of left ankle Hyperkeratosis Acquired keratoderma History of foot surgery Personal history of surgery to other organs Fibromyalgia Mylagia and myositis, unspecified [facility]* Diagnosis Medication course changed- Primary Primary hypertension Unspecified essential hypertension Diabetes mellitus type II, non insulin dependent (Multi) Type II or unspecified type diabetes mellitus without mention of complication, not stated as uncontrolled Hyperlipidemia, unspecified hyperlipidemia type Smoker Tobacco use disorder Preop cardiovascular exam Pre-operative cardiovascular examination documented in this encounter [facility] Work Phone: Evaluation note* Diagnosis Postoperative examination Follow-up examination, following unspecified surgery [facility]* Diagnosis Pre-op evaluation- Primary Preoperative examination, unspecified Hyperlipidemia, unspecified hyperlipidemia type Type 2 diabetes mellitus with other specified complication, without long-term current use of insulin (HCC) Fibromyalgia Mylagia and myositis, unspecified Migraine without [...] (BMI) of 36.0 to 36.9 in adult ([facility]) Eversion deformity of foot, left- Primary Pain in both feet Pain in limb Diabetes mellitus type 2 with neurological manifestations ([facility]) Type II or unspecified type diabetes mellitus with neurological manifestations, not stated as uncontrolled Difficulty walking Difficulty in walking Fibromyalgia Mylagia and myositis, unspecified History of foot surgery Personal history of surgery to other organs Hyperkeratosis Acquired keratoderma Chronic pain of left ankle Neuralgia of left lower extremity DM (diabetes mellitus), type 2 with neurological complications ([facility]) Type II or unspecified type diabetes mellitus with neurological manifestations, not stated as uncontrolled documented in this encounter [facility] note* Diagnosis Pre-op evaluation- Primary Preoperative examination, unspecified Hyperlipidemia, unspecified hyperlipidemia type Type 2 diabetes mellitus with other specified complication, without long-term current use of insulin (HCC) Fibromyalgia Mylagia and myositis, unspecified Migraine without [...] (BMI) of 36.0 to 36.9 in adult ([facility]) DM (diabetes mellitus), type 2 with neurological complications ([facility])- Primary Type II or unspecified type diabetes mellitus with neurological manifestations, not stated as uncontrolled Hyperkeratosis Acquired keratoderma Pain in both feet Pain in limb Eversion deformity of foot, left Acquired dysmorphic toenail Other specified disease of nail [facility] Primary hypertension Unspecified essential hypertension Diabetes mellitus type II, non insulin dependent (Multi) Type II or unspecified type diabetes mellitus without mention of complication, not stated as uncontrolled Mixed hyperlipidemia Hypokalemia Hypopotassemia BMI 33.0-33.9,adult Smoker Tobacco use disorder documented in this encounter [facility] Work Phone: Evaluation note* Diagnosis Type 2 diabetes mellitus with other skin complications- Primary Pelvic pain in female Unspecified symptom associated with female genital organs Yeast infection documented in this encounter [facility] HealthcareEvaluation [facility]* Diagnosis Breast tenderness in female- Primary Well woman exam with routine gynecological exam Routine gynecological examination Encounter for screening mammogram for malignant neoplasm of breast [facility] Dis[facility] instructions Additional Instructions Ice to sore areas May take the naproxen twice a day for pain take with food May take the muscle relaxer cyclobenzaprine up to 3 times a day as needed for pain may make you sleepy Gentle stretching Follow-up with your family doctor for recheck as [facility] Hospital Discharge instructions Additional Instructions Follow-up with your surgeon Return to the ED if develop worsening symptoms or concernsAk[facility] Work Phone: Hospital Discharge instructions Additional Instructions Avoid smoking Rest Tylenol or Naprosyn if needed for pain Warm compresses to area affected Avoid heavy lifting for the next 2 days Return here if any problems persist or worsen including increased chest pain, shortness of breath, or any other concerns as needed discussedAkron [facility] Work Phone: Hospital Discharge instructions Additional Instructions Take pvjf-kof-fibmqzv ibuprofen or Tylenol for discomfort May apply warm compresses however that does not usually help sebaceous cyst Follow-up with dermatology for removal of the cyst Return to the ER if suddenly red warm pustule or any other concernsAkron [facility]'S [facility] Work Phone: Hospital Discharge instructions Additional Instructions Use the Lidoderm pain patch as prescribed for your chest pain. Take Tylenol as needed for chest pain. Follow-up with your PCP for reevaluation in 5 to 7 days regarding your chest pain and also your abnormal EKG possible need for further outpatient cardiac testing.[facility] Work Phone: Hospital Discharge instructions Additional Instructions Warm compresses several times a day Take antibiotic as instructed until gone Avoid picking, poking, popping area affected Good hand hygiene Return here if any problems persist or worsenAk[facility] Work Phone: Hospital Discharge instructions Additional Instructions Push fluids Rest Tylenol if needed for pain Apply warm compresses to your abdomen is uncomfortable Take antibiotic as instructed until gone [facility] Work Phone: Hospital Discharge instructions Additional Instructions Follow-up with your primary care doctor Return to ED if develop worsening symptoms or concerns Double your dose of lasix for the next couple of days to help with your swelling, you will need to follow with your primary care doctor in the next week to monitor how your swelling is doing and your kidney functionAkron Children'S Hospital Work Phone: Hospital Discharge instructions Additional Instructions You have a loop drain in your abscess. You should gently clean around the wound and move the loop 1-2 times a day to ensure that the abscess continues to drain. The loop may be cut and removed once the drainage has resolved. This should be in 3-5 days. You may cut and remove the loop, you may see your doctor, or you may return here to have it removed. You do have some gauze packing in the smaller abscess. This will be removed when you return.[facility] Work Phone: Hospital Discharge instructions Additional Instructions Begin taking antibiotic as prescribed, it is recommended you follow-up with your primary care provider within the next 3 to 5 days for a wound evaluation. At this time there is no clear evidence of an abscess formation, if symptoms do not continue to improve with antibiotic use, it is recommended you follow-up with a general surgeon for further evaluation. It is very important that you follow up with your primary care provider in the next 2-3 days unless instructed to do otherwise. If you do not have a primary care provider, you can contact [facility] and ask about being established for primary care services. If you require specialist follow up, such as with an orthopedic physician, sales and service consultant, urologist, or other medical specialty, you should contact the specialty clinic as soon as possible to schedule a follow up appointment. If you are established with a specialist, you can contact your preferred physician for follow up. If you are not already established with the specialist you need, you may have contact information provided to you with these discharge instructions. If you are being prescribed medications, take exactly as prescribed. Antibiotics, if prescribed, should be taken until the entire course is completed. You should not have left over antibiotics. Continue to take any previously prescribed home medications unless instructed otherwise. If you are experiencing fever or mild to moderate pain, you should first take Tylenol or ibuprofen available kgxy-[id number]-[id number]. Medications, if prescribed to treat pain from the emergency department, are intended to provide relief for severe pain that is not relieved by other methods of pain relief, you should use these medications cautiously as many are known to cause sedation/sleepiness, increased risk for falls, and other effects such as constipation. If your symptoms worsen please return to the ED or if you have any other concernsOhio[facility] Work Phone: Reason for referral (narrative)* Diagnostic Procedure Only (Routine) - Closed Specialty Diagnoses / Procedures Referred By Kristy mcpherson Referred To Contact XR IMAGING Diagnoses Pain in left foot Procedures XR FOOT GENERAL 3V AP/LAT/OBL LEFT RADEX FOOT COMPLETE MINIMUM 3 VIEWS Eulalia Fuentes DPM [address] [place] [address] [place] [id number] Referral ID Status Reason Start Date Expiration Date V isits Requested Visits Authorized [id number] Closed Auto-Generate d Referral 10/28/2023 11/26/2024 1 1 [facility] for referral (narrative)* Consultation (Routine) - Authorized Specialty Diagnoses / Procedures Referred By Contjeanne mcpherson Referred To Contact Cardiology Diagnoses Primary hypertension Procedures Follow Up In Cardiology Krystal Koehler MD [address] [address] Krystal Koehler MD [address] [facility] [address] [place] [address] Referral ID Status Reason Start Date Expiration Date V isits Requested Visits Authorized [id number] Authorized 07/06/2024 07/06/2025 1 1 [facility] Work Phone: Reason for visit Narrative* Diagnostic Procedure Only (Routine) - Closed Specialty Diagnoses / Procedures Referred By Contac t Referred To Contact XR IMAGING Diagnoses Pain in left foot Procedures XR FOOT GENERAL 3V AP/LAT/OBL LEFT RADEX FOOT COMPLETE MINIMUM 3 VIEWS Eulalia Fuentes DPM [address] [place] [address] [place] [id number] Referral ID Status Reason Start Date Expiration Date V isits Requested Visits Authorized [id number] Closed Auto-Generate d Referral 10/28/2023 11/26/2024 1 1 [facility] Chief Complaint and Reason for Visit Chief Complaint bump under rt arm pi t rt side facial/mouth pain Chief Complaint bump under rt arm pi t rt side facial/mouth pain Lower back injury_[facility] [place] Chief Complaint bump under rt arm pi t rt side facial/mouth pain Lower back injury_[facility] [place] E11.9 Chief Complaint rt side facial/mouth pain Lower back injury_[facility] [place] E11.9 Right Axillary Abscess Chief Complaint rt side facial/mouth pain Lower back injury_[facility] [place] E11.9 Right Axillary Abscess Right Axillary Abscess Chief Complaint rt side facial/mouth pain Lower back injury_[facility] [place] E11.9 Right Axillary Abscess Right Axillary Abscess Right Axillary Abscess Chief Complaint Lower back injury_IC [facility] [place] E11.9 Right Axillary Abscess Right Axillary Abscess [...] Chief Complaint R foot pain r10.2 n94.89 Chief Complaint r10.2 n94.89 Unknown Chief Complaint Admit Date Unknown July 16, 2024 8: 54am both leg swelling October 03, 2024 1 0:43pm Chief Complaint Admit Date Lump L Armpit November 17, 2024 12:30am R foot pain November 22, 2024 12:41pm rt side pain February 10, 2025 1:5 7pm Chief Complaint Admit Date rt side pain February 10, 2025 1:5 7pm lump on lt arm pit, painful March 20, 2025 12:23am Chief Complaint Admit Date rt side pain February 10, 2025 1:5 7pm lump on lt arm pit, painful March 20, 2025 12:23am suture removal March 23, 2025 8:2 0am Chief Complaint Admit Date rt side pain February 10, 2025 1:5 7pm lump on lt arm pit, painful March 20, 2025 12:23am suture removal March 23, 2025 8:2 0am personal April 15, 2025 12:08 pm Advance Directives Advance Directive Response Recorded Date/ Time Advance Directives No July 3:09pm Advance Directive Response Recorded Date/ Time Advance Directives No July 2:09pm Family History Relationship Condition Age at Onset Recorded Date/T [...] history of hyperlipid emia: Mother(V18.19, Z83.438) Status:Active Relationship Condition Age at Onset Recorded Date/T belgica mother Diabetes mellitus Unknown Hypertension Unknown Hyperlipidemia Unknown Chronic obstructive pulmonary disease Unk nown Asthma Unknown Summary Purpose Reason for Referral Specialty Diagnoses / Procedures Referred By Kristy mcpherson Referred To Contact [facility] Diagnoses Type 2 diabetes mellitus with diabetic polyneuropathy, unspecified whether mcfp insulin use (HCC) BMI 39.0-39.9,adult Difficulty walking Eversion deformity of foot, left Painful scar Procedures CONSULT TO PHYSICAL THERAPY PHYSICAL THERAPY EVALUATION HIGH COMPLEX 45 MINS Eulalia Fuentes DPM [address] [place] [address] [facility] [address] [place] [address] Referral ID Status Reason Start Date Expiration Date Visits Requested Visits Authorized [id number] Pending Review Auto-Generat ed Referral 02/04/2024 02/03/2025 1 1 Specialty Diagnoses / Procedures Referred By Kristy mcpherson Referred To Contact Diagnoses Primary hypertension Krystal Koehler MD [address] [place] [id number] Referral ID Status Reason Start Date Expiration Date V isits Requested Visits Authorized [id number] Pending Review 1 1 Specialty Diagnoses / Procedures Referred By Kristy mcpherson Referred To Contact Diagnoses Diabetes mellitus type II, non insulin dependent (Multi) Hyperlipidemia, unspecified hyperlipidemia type Krystal Koehler MD [address] [address] Referral ID Status Reason Start Date Expiration Date V isits Requested Visits Authorized [id number] Pending Review 1 1 Specialty Diagnoses / Procedures Referred By Contac t Referred To Contact Cardiology Diagnoses Primary hypertension Procedures Follow Up In Cardiology Krystal Koehler MD 254 [facility] [address] [place] [address] Krystal Koehler MD 254 [facility] [address] [place] [address] Referral ID Status Reason Start Date Expiration Date V isits Requested Visits Authorized [id number] Authorized 03/23/2024 03/23/2025 1 1 Additional Source [...] Primary Care Provider Activ e Radha Stephens [facility]- Emergency Provider Active Team Status: Inactive Member [...] Active Robert Vazquez DO Emergency Provider Active Ecology Professor Relationship Specialty Start Date End Date Jamia Johansen MD [address] [place], [place] [id number] Referring AIRPORT OPERATIONS SPECIALIST 01/12/20 Team Status: Inactive Member Role Status Dates Ga Marques PA-C Primary Care Provider, Atte nding Provider Active Ecology Professor Relationship Specialty Start Date End Date Jamia Johansen MD [address] [facility] [place] [place] [id number] Referring AIRPORT OPERATIONS SPECIALIST 01/12/20 Team Status: Inactive Member Role Status Dates Ga Marques PA-C Primary Care Provider Activ geena Viera MD Attending Provider Active Team Status: Inactive Member Role Status Dates Ga Marques PA-C Primary Care Provider Activ geena Parker , DO Emergency Provider Active Ecology Professor Relationship Specialty Start Date End Date O Jamia Escalona MD Referring AIRPORT OPERATIONS SPECIALIST 01/12/20 Team Status: Inactive Member Role Status Dates Ga Marques PA-C Primary Care Provider Activ geena Rondon , CASIE Emergency Provider Active Team Status: Inactive Member Role Status Dates Ga Marques PA-C Primary Care Provider Activ geena Laguna APRN Emergency Provider Active Ecology Professor Relationship Specialty Start Date End Date O Jamia Escalona MD Referring AIRPORT OPERATIONS SPECIALIST 01/12/20 Ecology Professor Relationship Specialty Start Date End Date O Jamia Escalona MD Referring AIRPORT OPERATIONS SPECIALIST 01/12/20 Ecology Professor Relationship Specialty Start Date End Date O Jamia Escalona MD Referring Gameplay Engineer 01/12/20 Ecology Professor Relationship Specialty Start Date End Date O Jamia Escalona MD Referring Gameplay Engineer 01/12/20 Ecology Professor Relationship Specialty Start Date End Date O Jamia Escalona MD Referring Gameplay Engineer 01/12/20 Ecology Professor Relationship Specialty Start Date End Date O Jamia Escalona MD Referring Gameplay Engineer 01/12/20 Ecology Professor Relationship Specialty Start Date End Date O Jamia Escalona MD Referring Gameplay Engineer 01/12/20 Ecology Professor Relationship Specialty Start Date End Date O Jamia Escalona MD Referring Gameplay Engineer 01/12/20 Ecology Professor Relationship Specialty Start Date End Date O Jamia Escalona MD Referring Gameplay Engineer 01/12/20 Ecology Professor Relationship Specialty Start Date End Date O Jamia Escalona MD Referring Gameplay Engineer 01/12/20 Ecology Professor Relationship Specialty Start Date End Date O Jamia Escalona MD Referring Gameplay Engineer 01/12/20 Ecology Professor Relationship Specialty Start Date End Date Ga Marques PA-C [address] [place] [address] PCP - General 02/11/23 Rigoberto Montano DO [address] [place] [address] [address], [place] [address] Referring Physician Obstetrics and Gynecology 03/23/24 Ecology Professor Relationship Specialty Start Date End Date O Jamia Escalona MD Referring Gameplay Engineer 01/12/20 Team Status: Active Member Role Status Dates PHYSICIAN NO FAMILY Primary Care Provider Active Team Status: Inactive Member Role Status Dates Rigoberto Montano Attending Provider Active Start: [facility] 2023 End: January 25, 2024 PHYSICIAN NO FAMILY Primary Care Provider Active Start: January 25, 2024 End: January 25, 2024 Team Status: Inactive Member Role Status Dates PHYSICIAN NO FAMILY Primary Care Provider Active Start: April 05, 2024 End: April 05, 2024 Miquel Andrews PA-C Emergency Provider Active Start: April 05, 2024 End: April 05, 2024 Ecology Professor Relationship Specialty Start Date End Date O Jamia Escalona MD Referring Gameplay Engineer 218/20 Team Status: Active Member Role Status Dates NON STAFF Primary Care Provider Active Team Status: Inactive Member Role Status Dates Rigoberto Montano Attending Provider Active Start: [facility] 2023 End: April 24, 2024 NON STAFF Primary Care Provider Active Start: April 24, 2024 End: April 24, 2024 Ecology Professor Relationship Specialty Start Date End Date O Jamia Escalona MD Referring Gameplay Engineer 18/20 Ecology Professor Relationship Specialty Start Date End Date O Jamia Escalona MD Referring Gameplay Engineer 2/18/20 Ecology Professor Relationship Specialty Start Date End Date O Jamia Escalona MD Referring Gameplay Engineer 2/18/20 Ecology Professor Relationship Specialty Start Date End Date O Jamia Escalona MD Referring Gameplay Engineer 2/18/20 Team Status: Inactive Member Role Status Dates Rigoberto Montano DO Attending Provider Active Start : April 24, 2024 End: April 24, 2024 NON STAFF Primary Care Provider Active Start: April 24, 2024 End: April 24, 2024 Team Status: Inactive Member Role Status Dates Rigoberto Montano DO Attending Provider Active Start : July 16, 2024 End: July 16, 2024 Ecology Professor Relationship Specialty Start Date End Date O Jamia Escalona MD Referring Gameplay Engineer 01/12/20 Ecology Professor Relationship Specialty Start Date End Date O Jamia Escalona MD Referring Gameplay Engineer 01/12/20 Ecology Professor Relationship Specialty Start Date End Date O Jamia Escalona MD Referring Gameplay Engineer 01/12/20 Ecology Professor Relationship Specialty Start Date End Date O Jamia Escalona MD Referring Gameplay Engineer 01/12/20 Ecology Professor Relationship Specialty Start Date End Date O Jamia Escalona MD Referring Gameplay Engineer 01/12/20 Ecology Professor Relationship Specialty Start Date End Date O Jamia Escalona MD Referring Gameplay Engineer 01/12/20 Team Status: Inactive Member Role Status Dates NON STAFF Primary Care Provider Active Start: October 03, 2024 End: October 04, 2024 German Garcia DO RES Active Sta rt: October 03, 2024 End: October 04, 2024 Mk Parker DO Emergency Provider Active Sta rt: October 03, 2024 End: October 04, 2024 Ecology Professor Relationship Specialty Start Date End Date Rigoberto Montano DO [address] [facility] [address], [place] [address] Referring Physician Obstetrics and Gynecology 03/23/24 Ecology Professor Relationship Specialty Start Date End Date Ga Marques PA-C [address] [place] [address] Primary Care Provider Family Medicine 11/25/22 Ecology Professor Relationship Specialty Start Date End Date Ga Marques PA-C [address] [place] [address] Primary Care Provider Family Medicine 11/25/22 Ecology Professor Relationship Specialty Start Date End Date Ga Marques PA-C [address] [place] [address] Primary Care Provider Family Medicine 11/25/22 Ecology Professor Relationship Specialty Start Date End Date Jamia Johansen MD Referring Gameplay Engineer 01/12/20 Ecology Professor Relationship Specialty Start Date End Date Jamia Johansen MD Referring Gameplay Engineer 01/12/20 Ecology Professor Relationship Specialty Start Date End Date Rigoberto Montano DO [address] [facility] [address], [place] [address] Referring Physician Obstetrics and Gynecology 03/23/24 Team Status: Inactive Member Role Status Dates NON STAFF Primary Care Provider Active Start: November 17, 2024 End: November 17, 2024 Eulalia Cobb MD Emergency Provider Active Star t: November 17, 2024 End: November 17, 2024 Team Status: Inactive Member Role Status Dates NON STAFF Primary Care Provider Active Start: November 22, 2024 End: November 22, 2024 Be Laguna APRN Emergency Provider Active Start: November 22, 2024 End: November 22, 2024 Team Status: Inactive Member Role Status Dates NON STAFF Primary Care Provider Active Start: February 10, 2025 End: February 10, 2025 Miquel Andrews PA-C Emergency Provider Active Start: February 10, 2025 End: February 10, 2025 Team Status: Inactive Member Role Status Dates PHYSICIAN NO FAMILY Primary Care Provider Active Start: March 20, 2025 End: March 20, 2025 Ga Bolanos Jr, MD Emergency Provider Active Start: March 20, 2025 End: March 20, 2025 Team Status: Inactive Member Role Status Dates PHYSICIAN NO FAMILY Primary Care Provider Active Start: March 23, 2025 End: March 23, 2025 Aron Trevino DO Emergency Provider Active Start: March 23, 2025 End: March 23, 2025 Team Status: Inactive Member Role Status Dates PHYSICIAN NO FAMILY Primary Care Provider Active Start: April 15, 2025 End: April 15, 2025 Momo York PA-C Emergency Provider Active Start: April 15, 2025 End: April 15, 2025 Ecology Professor Relationship Specialty Start Date End Date Rigoberto Montano, [address] [place] [address] [facility] 11/25/24 Ga Marques PA-C [address] [place] [id number] Primary Care Provider [facility] 11/25/22 Ecology Professor Relationship Specialty Start Date End Date Rigoberto Montano, [address] [place] [address] PCP [facility] 11/25/24 Ga Marques PA-C [address] [place] [address] Primary Care Provider [facility] 11/25/22 Ecology Professor Relationship Specialty Start Date End Date Rigoberto Montano, [address] [place] [address] PCP [facility] 11/25/24 Ga Marques PA-C [address] [place] [address] [place] [id number] Primary Care Provider Family Medicine 11/25/22 Ecology Professor Relationship Specialty Start Date End Date Lynn MontanoyDO [address] [facility] [place] [address] PCP - [facility] 11/25/24 Ga Marques PA-C [address] [place] [address] Primary Care Provider Family Medicine 11/25/22 Goals (unrecognized section and content) Goals may [...] or prosecute any alcohol or drug abuse patient.[facility] the event this information is protected by the Federal Confidentiality of Alcohol and Drug Abuse Patient Records regulations: The Federal rules restrict any use of the information to criminally investigate or prosecute any alcohol or drug abuse patient.[facility] Hospital[facility] the event this information is protected by the Federal Confidentiality of Alcohol and Drug Abuse Patient Records regulations: The Federal rules restrict any use of the information to criminally investigate or prosecute any alcohol or drug abuse patient.[facility] Hospital[facility] the event this information is protected by the Federal Confidentiality of Alcohol and Drug Abuse Patient Records regulations: The Federal rules restrict any use of the information to criminally investigate or prosecute any alcohol or drug abuse patient.[facility] Hospital[facility] the event this information is protected by the Federal Confidentiality of Alcohol and Drug Abuse Patient Records regulations: The Federal rules restrict any use of the information to criminally investigate or prosecute any alcohol or drug abuse patient.[facility] Hospital[facility] the event this information is protected by the Federal Confidentiality of Alcohol and Drug Abuse Patient Records regulations: The Federal rules restrict any use of the information to criminally investigate or prosecute any alcohol or drug abuse patient.[facility] Hospital[facility] the event this information is protected by the Federal Confidentiality of Alcohol and Drug Abuse Patient Records regulations: The Federal rules restrict any use of the information to criminally investigate or prosecute any alcohol or drug abuse patient.[facility] HospitalIn the event this information is protected by the Federal Confidentiality of Alcohol and Drug Abuse Patient Records regulations: The Federal rules restrict any use of the information to criminally investigate or prosecute any alcohol or drug abuse patient.[facility] HospitalIn the event this information is protected by the Federal Confidentiality of Alcohol and Drug Abuse Patient Records regulations: The Federal rules restrict any use of the information to criminally investigate or prosecute any alcohol or drug abuse patient.[facility] HospitalIn the event this information is protected by the Federal Confidentiality of Alcohol and Drug Abuse Patient Records regulations: The Federal rules restrict any use of the information to criminally investigate or prosecute any alcohol or drug abuse patient.[facility] HospitalIn the event this information is protected by the Federal Confidentiality of Alcohol and Drug Abuse Patient Records regulations: The Federal rules restrict any use of the information to criminally investigate or prosecute any alcohol or drug abuse patient.[facility] HospitalIn the event this information is protected by the Federal Confidentiality of Alcohol and Drug Abuse Patient Records regulations: The Federal rules restrict any use of the information to criminally investigate or prosecute any alcohol or drug abuse patient.[facility] HospitalIn the event this information is protected by the Federal Confidentiality of Alcohol and Drug Abuse Patient Records regulations: The Federal rules restrict any use of the information to criminally investigate or prosecute any alcohol or drug abuse patient.[facility] HospitalIn the event this information is protected by the Federal Confidentiality of Alcohol and Drug Abuse Patient Records regulations: The Federal rules restrict any use of the information to criminally investigate or prosecute any alcohol or drug abuse patient.[facility] HospitalIn the event this information is protected by the Federal Confidentiality of Alcohol and Drug Abuse Patient Records regulations: The Federal rules restrict any use of the information to criminally investigate or prosecute any alcohol or drug abuse patient.[facility] HospitalIn the event this information is protected by the Federal Confidentiality of Alcohol and Drug Abuse Patient Records regulations: The Federal rules restrict any use of the information to criminally investigate or prosecute any alcohol or drug abuse patient.[facility] HospitalIn the event this information is protected by the Federal Confidentiality of Alcohol and Drug Abuse Patient Records regulations: The Federal rules restrict any use of the information to criminally investigate or prosecute any alcohol or drug abuse patient.[facility] HospitalIn the event this information is protected by the Federal Confidentiality of Alcohol and Drug Abuse Patient Records regulations: The Federal rules restrict any use of the information to criminally investigate or prosecute any alcohol or drug abuse patient.[facility] HospitalIn the event this information is protected by the Federal Confidentiality of Alcohol and Drug Abuse Patient Records regulations: The Federal rules restrict any use of the information to criminally investigate or prosecute any alcohol or drug abuse patient.[facility] HospitalIn the event this information is protected by the Federal Confidentiality of Alcohol and Drug Abuse Patient Records regulations: The Federal rules restrict any use of the information to criminally investigate or prosecute any alcohol or drug abuse patient.[facility] HospitalIn the event this information is protected by the Federal Confidentiality of Alcohol and Drug Abuse Patient Records regulations: The Federal rules restrict any use of the information to criminally investigate or prosecute any alcohol or drug abuse patient.[facility] HospitalIn the event this information is protected by the Federal Confidentiality of Alcohol and Drug Abuse Patient Records regulations: The Federal rules restrict any use of the information to criminally investigate or prosecute any alcohol or drug abuse patient.[facility] HospitalIn the event this information is protected by the Federal Confidentiality of Alcohol and Drug Abuse Patient Records regulations: The Federal rules restrict any use of the information to criminally investigate or prosecute any alcohol or drug abuse patient.[facility] HospitalIn the event this information is protected by the Federal Confidentiality of Alcohol and Drug Abuse Patient Records regulations: The Federal rules restrict any use of the information to criminally investigate or prosecute any alcohol or drug abuse patient.[facility] HospitalIn the event this information is protected by the Federal Confidentiality of Alcohol and Drug Abuse Patient Records regulations: The Federal rules restrict any use of the information to criminally investigate or prosecute any alcohol or drug abuse patient.[facility] HospitalIn the event this information is protected by the Federal Confidentiality of Alcohol and Drug Abuse Patient Records regulations: The Federal rules restrict any use of the information to criminally investigate or prosecute any alcohol or drug abuse patient.[facility] HospitalIn the event this information is protected by the Federal Confidentiality of Alcohol and Drug Abuse Patient Records regulations: The Federal rules restrict any use of the information to criminally investigate or prosecute any alcohol or drug abuse patient.[facility] HospitalIn the event this information is protected by the Federal Confidentiality of Alcohol and Drug Abuse Patient Records regulations: The Federal rules restrict any use of the information to criminally investigate or prosecute any alcohol or drug abuse patient.[facility] HospitalIn the event this information is protected by the Federal Confidentiality of Alcohol and Drug Abuse Patient Records regulations: The Federal rules restrict any use of the information to criminally investigate or prosecute any alcohol or drug abuse patient.[facility] HospitalIn the event this information is protected by the Federal Confidentiality of Alcohol and Drug Abuse Patient Records regulations: The Federal rules restrict any use of the information to criminally investigate or prosecute any alcohol or drug abuse patient.[facility] HospitalIn the event this information is protected by the Federal Confidentiality of Alcohol and Drug Abuse Patient Records regulations: The Federal rules restrict any use of the information to criminally investigate or prosecute any alcohol or drug abuse patient.[facility] HospitalIn the event this information is protected by the Federal Confidentiality of Alcohol and Drug Abuse Patient Records regulations: The Federal rules restrict any use of the information to criminally investigate or prosecute any alcohol or drug abuse patient.[facility] HospitalIn the event this information is protected by the Federal Confidentiality of Alcohol and Drug Abuse Patient Records regulations: The Federal rules restrict any use of the information to criminally investigate or prosecute any alcohol or drug abuse patient.[facility] HospitalIn the event this information is protected by the Federal Confidentiality of Alcohol and Drug Abuse Patient Records regulations: The Federal rules restrict any use of the information to criminally investigate or prosecute any alcohol or drug abuse patient.[facility] HospitalIn the event this information is protected by the Federal Confidentiality of Alcohol and Drug Abuse Patient Records regulations: The Federal rules restrict any use of the information to criminally investigate or prosecute any alcohol or drug abuse patient.[facility] HospitalIn the event this information is protected by the Federal Confidentiality of Alcohol and Drug Abuse Patient Records regulations: The Federal rules restrict any use of the information to criminally investigate or prosecute any alcohol or drug abuse patient.[facility] Reason for Visit (unrecogniz ed section [...] diabetes mellitus with diabetic polyneuropathy, unspecified whether mcfp insulin use (HCC) BMI 39.0-39.9,adult Difficulty walking Eversion deformity of foot, left Painful scar Procedures CONSULT TO PHYSICAL THERAPY PHYSICAL THERAPY EVALUATION HIGH COMPLEX 45 MINS Eulalia Fuentes DPM [address] [place] [address] [facility] [address] [place] [address] Referral ID Status Reason Start Date Expiration Date V isits Requested Visits Authorized [id number] Closed Auto-Generate d Referral 11/25/2023 11/24/2024 1 1 Reason Comments Patient Update Patient Question Reason Comments Anesthesia Consult Reason Comments Annual Exam Reason Comments surgery question and infected toe Reason Comments Established Patient Pre-Op Visit Reason Comments FMLA Paperwork Reason Comments Established Patient Post Op Reason Comments Patient Update Reason Comments Post Op Reason Comments Disability Reason Comments Follow-up 3-4 Specialty Diagnoses / Procedures Referred By Kristy mcpherson Referred To Contact Cardiology Diagnoses Primary hypertension Procedures Follow Up In Cardiology Krystal Koehler MD [address] [address] Krystal Koehler MD [address] [address] Referral ID Status Reason Start Date Expiration Date V isits Requested Visits Authorized [id number] Authorized 03/23/2024 03/23/2025 1 1 Reason Comments Post-op Visit Reason Comments Established Patient Follow Up Pain New Reason Comments Follow-up 6 months Specialty Diagnoses / Procedures Referred By Kristy mcpherson Referred To Contact Cardiology Diagnoses Primary hypertension Procedures Follow Up In Cardiology Krystal Koehler MD [address] [address] Phone: tel: fax: Krystal Koehler MD [address] [address] Phone: tel: fax: Referral ID Status Reason Start Date Expiration Date V isits Requested Visits Authorized [id number] Authorized 07/06/2024 07/06/2025 1 1 Reason Comments Pelvic Pain Pt present today for pelvic and lower back pain. Pt complains of having frequent yeast infections. (Itching) Reason Comments [facility] INFORMATION SOURCE (unrecogn ized section and content) DATE CREATED AUTHOR 02/12/2023 [employer] DATE CREATED AUTHOR AUTHOR'S ORGANIZ ATION 03/19/2023 [facility] DATE CREATED AUTHOR AUTHOR'S ORGANIZ ATION 03/29/2023 [facility] DATE CREATED AUTHOR AUTHOR'S ORGANIZ ATION 06/14/2023 [facility] DATE CREATED AUTHOR AUTHOR'S ORGANIZ ATION 05/27/2024 [facility] DATE CREATED AUTHOR AUTHOR'S ORGANIZ ATION 01/05/2025 [facility] DATE CREATED AUTHOR AUTHOR'S ORGANIZ ATION 03/23/2025 [facility] DATE CREATED AUTHOR AUTHOR'S ORGANIZ ATION 05/04/2025 [facility] EPIC DATE CREATED AUTHOR AUTHOR'S ORGANIZ ATION 2025 [facility] y[facility] FOR RECORDS PERTAINING TO PATIENTS WHO ARE [...] BE BASED ON THE PRIMARY CLINICAL RECORDS. [facility]. provides no warranty or guarantee of the accuracy or completeness of information in this document.
[2025-05-27 16:09] LABS: Age Gdln ACOG Testing Note (.); HPV Aptima Negative (Negative); IGP, Aptima HPV, rfx 16/18,45 Note (.)
== END 2025-05-24 22:17 | disposition home or self-care (01) ==
LOC: LAB 22:16
PROVIDERS: Visit Provider Physician Assistant
DX: Z01.419 Encounter for gynecological examination (general) (routine) without abnormal findings (principal)
CPT/HCPCS: 87624; 88175

== ENCOUNTER 2025-10-19 12:53 | Outpatient (OUT) | payer OTHER, SELFPAY ==
--- OUTSIDE RECORDS SUMMARY | 2025-10-06 17:35 | XMS_ITS | Encounter Summary ---
Author Organization [facility] Address [address] [place] [address] Phone Care Team Providers Care [employer] Polisher Operator Name Role Phone Rigoberto Montano DO Unavailable [phone] Krystal Koehler MD Unavailable Krystal Koehler MD Primary Care Provider [phone] Reason for Visit * Auth/CertSpecialtyDiagnoses / ProceduresReferred By ContactReferred To Contact Diagnoses Osteomyelitis of right foot, unspecified type (Multi) [place] [address] [place] [address] Phone: tel: fax: [facility] [address] [place] [address] Phone: tel: fax: Referral IDStatusReasonStart DateExpiration DateVisits RequestedVisits [id number] Encounter Details DateTypeDepartmentCare Team (Latest Contact Info)Emrocpbmzbq37/12/2025 5:[address] [facility] [address] [place] [address] Social History Tobacco UseTypesPacks/DayYears UsedDateSmoking Tobacco: Some DaysCigarettes Smokeless Tobacco: NeverAlcohol UseStandard Drinks/WeekCommentsNever0 (1 standard drink = 0.6 oz pure alcohol)CommentsUnknownSex and Gender InformationValueDate RecordedSex Assigned at BirthNot on fileLegal SexFemale 01/04/2023 12:55 PM ESTGender IdentityNot on fileSexual OrientationNot on file documented as of this encounter Functional Status * QuestionAnswerDate of JtkmsfvsavHkjzfhOO672/7610/07/2025 5:33 AM Zunilda Parham RNPulse6510/07/2025 5:33 AM Zunilda Parham RN * QuestionAnswerDate of AssessmentAuthorHistory of Falling, Immediate or Within 3 Ocjzyd959/12/2025 7:21 PM Eusebia Sanon RNMorse Fall Risk Score30 10/06/2025 7:21 PM Eusebia Sanon RN * QuestionAnswerDate of AssessmentAuthorBraden Scale Kmwep8862/13/2025 7:30 AM Dianne Garcia RN * DVT Score Indicates Low RiskAnswerDate of NdryfezwmaNxvbxqXxf99/12/2025 10:06 PM Marcelo Gaxiola MD * Calculated C-SSRS Risk Score (Lifetime/Recent)AnswerDate of AssessmentAuthorNo Risk Gulkbfgzt99/12/2025 5:27 PM Asa Caballero RN * [place] Suicide Severity Rating Scale (Screener/Recent Self-Report)Question AnswerDate of AssessmentAuthor1. Wish to be (Past 1 Month)No10/06/2025 5:27 PM Asa Caballero RN2. Non-Specific Active Suicidal Thoughts (Past 1 Month)No10/06/2025 5:27 PM Asa Cabalelro RN6. Suicidal Behavior (Lifetime)No10/06/2025 5:27 PM Asa Caballero RN documented as of this encounter Plan of Treatment DateTypeDepartmentCare Team (Latest Contact Info)Ttjmreoxlgv75/02/2026 10:00 AM ESTOffice Visit [facility] [address] [facility] [address] [place] [address] Krystal Koehler MD [address] [facility] [address] [place], [place] [id number] documented as of this encounter Procedures Procedure NamePriorityDate/TimeAssociated DiagnosisCommentsECG 12-LEADSTAT 10/06/2025 5:33 PM EST documented in this encounter Results * ECG 12 lead (10/06/2025 5:33 PM EST)ComponentValueRef RangeTest MethodAnalysis TimePerformed AtPathologist SignatureVentricular Kefo27UWXUQTWOngfcd Fuqi44KGT MUSEPR Etnphrwh034cgMLSBEKZ Yqiapthp81cfIWXRHQ Wxqudsro439keVYHJAYR Calculation(Bazett)445msMUSEP Jmaq55aafqngbUFOCE Mwej86lkmvtwgLIWHW [place]-9 degreesMUSEQRS Yfvai49haqkbYBGKQ Uofzj091fiIMFHF Tnlfv467uzANPBF Dasthn775tn MUSET Hpfvhs493fgWSWNETA Lxmtjtbuyb720enVPIUMyhyskav (Source)Anatomical Location / LateralityCollection Method / VolumeCollection TimeReceived Time 10/06/2025 5:32 PM EST10/07/2025 3:01 AM EST Narrative MUSE - 10/07/2025 3:01 AM EST Normal sinus rhythm Septal infarct (cited on or before 28-JUL-2025) T wave abnormality, consider inferior ischemia Abnormal ECG When compared with ECG of 28-JUL-2025 14:54, No significant change was found See ED provider note for full interpretation and clinical correlation Confirmed by Karli Chino ([id number]) on 10/07/2025 3:01:06 AM Procedure Note Karli Chino PA-C - 10/07/2025 Normal sinus rhythm Septal infarct (cited on or before 28-JUL-2025) T wave abnormality, consider inferior ischemia Abnormal ECG When compared with ECG of 28-JUL-2025 14:54, No significant change was found See ED provider note for full interpretation and clinical correlation Confirmed by Karli Chino ([id number]) on 10/07/2025 3:01:06 AM Authorizing ProviderResult TypeResult StatusHolly Viera MDECG ORDERABLES Final ResultPerforming OrganizationAddressCity/State/ZIP CodePhone Number MUSE documented in this encounter Visit Diagnoses Not on filedocumented in this encounter Additional Health Concerns AssessmentNoted TimeA fall risk assessment has been completed for the patient 07/06/2024 10:09 AM EDTdocumented as of this encounter Care Teams Team MemberRelationshipSpecialtyStart DateEnd Date Krystal Koehler MD [address] [facility] [address] [place] [address] [facility] [place] [facility]25 Krystal Koehler MD [address] [facility] [address] [place] [address] PCP - GeneralCardiology07/28/25 Rigoberto Montano DO [address] [facility] [address] [place], [place] [id number] Referring PhysicianObstetrics and Gynecology03/23/24documented as of this encounter
--- OUTSIDE RECORDS SUMMARY | 2025-10-06 17:42 | XMS_ITS | Encounter Summary ---
Author Organization [facility] Address [address] 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 Off Name Role Phone Rigoberto Montano DO Unavailable [phone] Krystal Koehler MD Unavailable Krystal Koehler MD Primary Care Provider [phone] Reason for Visit * ReasonCommentsToe Pain * Auth/CertSpecialtyDiagnoses / ProceduresReferred By ContactReferred To Contact Diagnoses Osteomyelitis of right foot, unspecified type (Multi) [place] [address] [place] [address] Phone: tel: fax: [facility] Emergency Medicine [address] [place] [address] Phone: tel: fax: Referral IDStatusReasonStart DateExpiration DateVisits RequestedVisits [id number] Encounter Details DateTypeDepartmentCare Team (Latest Contact Info)Meacyxwwlrg67/12/2025 5:42 PM EST - 10/07/2025 1:23 PM ESTHospital Encounter [facility] Emergency Medicine [address] [place] [phone] [place] [address] [facility] Department [place] [address] [place] [address] [place] [address] Yohan Burton MD MPH [address] [facility] [place] [address] [place] [address] [facility] Department [place] [address] Osteomyelitis of right foot, unspecified type (Multi) (Primary Dx); Pain in toes of both feet Discharge Disposition: Against Medical Advice Social History Tobacco UseTypesPacks/DayYears UsedDateSmoking Tobacco: Some DaysCigarettes Smokeless Tobacco: NeverAlcohol UseStandard Drinks/WeekCommentsNever0 (1 standard drink = 0.6 oz pure alcohol)CommentsUnknownSex and Gender InformationValueDate RecordedSex Assigned at BirthNot on fileLegal SexFemale 01/04/2023 12:55 PM ESTGender IdentityNot on fileSexual OrientationNot on file documented as of this encounter Last Filed Vital Signs Vital SignReadingTime TakenCommentsBlood Kahcozih663 5:33 AM EST Crwwb5584 5:33 AM LALBbzximlcfxi95.6 ??C (97.9 ??F)10/07/2025 5:33 AM ESTRespiratory Oijz787812/07/2024 5:33 AM ESTOxygen Hqdzoeotot00%10/07/2025 5:33 AM ESTInhaled Oxygen Concentration--Cpgaef42.3 kg (210 lb)10/06/2025 5:26 PM EST Umqkna319.1 cm (5' 5 )10/06/2025 5:26 PM ESTBody Mass Index34.9510/06/2025 5:26 PM ESTdocumented in this encounter Functional Status * QuestionAnswerDate of DstlanwpvwYlhwylQM257/ 5:33 AM ESTZunilda Petersen, TRAswav9466/13/2025 5:33 AM Zunilda Parham RN * QuestionAnswerDate of AssessmentAuthorHistory of Falling, Immediate or Within 3 Xyhhcm285/12/2025 7:21 PM Eusebia Sanon RNMorse Fall Risk Score30 10/06/2025 7:21 PM Eusebia Sanon RN * QuestionAnswerDate of AssessmentAuthorBraden Scale Jnlyq7881/13/2025 7:30 AM Dianne Garcia RN * DVT Score Indicates Low RiskAnswerDate of RgphoxdzzsKgzoemGqi81/12/2025 10:06 PM Marcelo Gaxiola MD * Calculated C-SSRS Risk Score (Lifetime/Recent)AnswerDate of AssessmentAuthorNo Risk Voemavklf35/12/2025 5:27 PM Asa Caballero RN * Fellows Suicide Severity Rating Scale (Screener/Recent Self-Report)Question AnswerDate of AssessmentAuthor1. Wish to be (Past 1 Month)No10/06/2025 5:27 PM Asa Caballero RN2. Non-Specific Active Suicidal Thoughts (Past 1 Month)No10/06/2025 5:27 PM Asa Caballero RN6. Suicidal Behavior (Lifetime)No10/06/2025 5:27 PM Asa Caabllero RN documented as of this encounter Discharge Summaries * Joao Leone MD - 10/07/2025 1:23 PM EST Discharge Diagnosis Osteomyelitis of right foot, unspecified type (Multi) Issues Requiring Follow-Up Patient requires further treatment and management of suspected bilateral foot osteomyelitis. This includes podiatry, advanced imaging with MRI, and likely broad spectrum antibiotics as appropriate. Discharge Meds Medication List START taking these medications acetaminophen 325 mg tablet; Commonly known as: Tylenol; Take 3 tablets (975 mg) by mouth every 8 hours if needed for mild pain (1 - 3). CONTINUE taking these medications * albuterol 90 mcg/actuation aerosol powdr breath activated inhaler * albuterol 90 mcg/actuation inhaler; Inhale 2 puffs every 4 hours if needed for wheezing. Flovent HFA 110 mcg/actuation inhaler; Generic drug: fluticasone * This list has 2 medication(s) that are the same as other medications prescribed for you. Read the directions carefully, and ask your doctor or other care provider to review them with you. ASK your doctor about these medications furosemide 20 mg tablet; Commonly known as: Lasix; Take 1 tablet (20 mg) by mouth once daily. sodium chloride 0.65 % nasal spray; Commonly known as: [address]; Administer 1 spray into each nostril if needed for congestion. spironolactone 50 mg tablet; Commonly known as: Aldactone; Take 1 tablet (50 mg) by mouth once daily. Test Results Pending At Discharge Pending Labs No current pending labs. Hospital Course Presented at after 2 weeks of worsening bilateral foot pain following suture removal for distal phalanx amputation. On arrival patient was afebrile and hemodynamically stable with leukocytosis with elevated CRP, normal ESR. X-ray of both feet concerning for osteomyelitis. Primary team intended for advanced imaging with MRI with podiatry consulted. Due to prolonged wait time in the ED before bed was available, patient became frustrated and expressed desire to leave AGAINST MEDICAL ADVICE. The primary team counseled the patient about her current situation including the concern for osteomyelitisand advised her to stay for treatment. The patient understood her situation and still expressed desire to leave AGAINST MEDICAL ADVICE, stating she would present to [facility]. She was prescribed acetaminophen for pain management prior to discharge. Pertinent Physical Exam At Time of Discharge Refer to progress note from date of discharge Outpatient Follow-Up Future Appointments Date Time Provider Department Center 12/27/2025 10:00 AM Krystal Koehler MD [id number] [place] Joao Leone MD Department of Medicine - PGY1 [facility] Cosigned by Christian Pham MD at 10/08/2025 10:21 AM EST Associated attestation - Christian Pham MD - 10/08/2025 10:21 AM EST I saw and evaluated the patient. I personally obtained the ventura and critical portions of the historyand physical exam or was physically present for ventura and critical portions performed by the resident/fellow. I reviewed the resident/fellow's documentation and discussed the patient with the resident/karl penn. I agree with the resident/fellow's medical decision making as documented in the note. documented in this encounter Discharge Instructions * Discharge Instructions* Joao Leone MD - 10/07/2025 12:13 PM EST Dear Ms Ruano, You were recently admitted to [facility]. After evaluating you, there was concern that you presently have an infection of your bone. It was recommended that you be admitted for management of suspected osteomyelitis (infection of the bone). It is recommended that you undergo MRI of both feet to workup this infection and help plan for future medical or surgical intervention. We intended to have our podiatry team evaluate you. Prior to their evaluation of you, you expressed desireto leave AGAINST MEDICAL ADVICE. It will be important for you to seek medical care for your condition, as you may need antibiotics for treatment of acute infection. We have provided acetaminophen to the pharmacy you requested for pain control as you seek further treatment. If you experience any worsening pain, drainage from your feet, fevers or chills, or any worsening of your condition, please return to the hospital of your choice. Sincerely, Your Care Team documented in this encounter Medications at Time of Discharge MedicationSigDispense QuantityRefillsLast FilledStart DateEnd Date albuterol 90 mcg/actuation aerosol powdr breath activated inhaler Inhale 2 puffs every 4 hours. fluticasone (Flovent HFA) 110 mcg/actuation inhaler Inhale 1 puff 2 times a day. Rinse mouth with water after use to reduce aftertaste and incidence ofcandidiasis. Do not swallow. acetaminophen (Tylenol) 325 mg tablet Indications:Pain in toes of both feetTake 3 tablets (975 mg) by mouth every 8 hours if needed for mild pain (1 - 3). 30 tablet furosemide (Lasix) 20 mg tablet Indications:Primary hypertensionTake 1 tablet (20 mg) by mouth once daily. 90 tablet sodium chloride ([address]) 0.65 % nasal spray Indications:Exacerbation of asthma, unspecified asthma severity, unspecified whether persistent ([facility])Administer 1 spray into each nostril if needed for congestion. 30 mL spironolactone (Aldactone) 50 mg tablet Indications:Primary hypertensionTake 1 tablet (50 mg) by mouth once daily. 90 tablet documented as of this encounter Progress Notes * Portillo Alfredo - 10/07/2025 11:23 AM EST Pharmacy Medication History Review Glo Ruano is a 40 y.o. female admitted for Osteomyelitis of right foot, unspecified type (Multi). Pharmacy reviewed the patient's yizoo-pn-ucprxhbrh medications and allergies for accuracy. Medications ADDED: None Medications CHANGED: None Medications REMOVED: Vraylar Celexa Jardiance Ajovy Injection Claritin Prilosec Maxalt Requip Ozempic Januvia The list below reflects the updated [employer] list. Prior to Admission Medications Prescriptions Last Dose Informant Patient Reported? Taking? albuterol 90 mcg/actuation aerosol powdr breath activated inhaler Self Yes No Sig: Inhale 2 puffs every 4 hours. albuterol 90 mcg/actuation inhaler No No Sig: Inhale 2 puffs every 4 hours if needed for wheezing. fluticasone (Flovent HFA) 110 mcg/actuation inhaler Self Yes No Sig: Inhale 1 puff 2 times a day. Rinse mouth with water after use to reduce aftertaste and incidence of candidiasis. Do not swallow. furosemide (Lasix) 20 mg tablet Not Taking Self No No Sig: Take 1 tablet (20 mg) by mouth once daily. Patient not taking: Reported on 10/07/2025 sodium chloride ([address]) 0.65 % nasal spray Not Taking Self No No Sig: Administer 1 spray into each nostril if needed for congestion. Patient not taking: Reported on 10/07/2025 spironolactone (Aldactone) 50 mg tablet Not Taking Self No No Sig: Take 1 tablet (50 mg) by mouth once daily. Patient not taking: Reported on 10/07/2025 Facility-Administered Medications: None The list below reflects the updated allergy list. Please review each documented allergy for additional clarification and justification. Allergies Reviewed by Portillo Alfredo on 10/07/2025 Severity Reactions Comments Tramadol High Anaphylaxis, Other, Unknown Other Reaction(s): Comments: Heart Stops Ketorolac Not Specified Hives Other Reaction(s): Dermatitis Comments: Hives Prednisone Not Specified Hives, Other, Unknown Other Reaction(s): angry rage Patient accepts M2B at discharge. Sources: [facility] Pharmacy dispense history Patient Interview Poor historian Chart Review Care Everywhere [facility] Pharmacy [phone] Additional Comments: Patient was able to name some medications that were outdated Spoke with [facility] to obtain medication fill history but they were unable to provide any details and stated that medication were not filled for over 2 years Contacted [facility] and spoke with Demarco Escobar CPhT to obtain medication fill history but patient hasn't had any medications filled in over a year Patient stated taking Jardiance and Januvia but LF was in November for a 90 day supply that the patient states having medication left over and is still taking these medications Patient states still taking Ozempic but stating that its been over a month since last dose PORTILLO ALFREDO Specifications Checker 10/07/25 Secure Chat preferred If no response call [phone] or [employer] Med Rec Cosigned by Ronna Cruz PharmD at 10/07/2025 3:28 PM EST Associated attestation - Ronna Cruz PharmD - 10/07/2025 3:28 PM EST Images from the original note were not included. Verified all information represents best possible medication history Ronna Cruz PharmD, Transitions of Care Pharmacist Transitions of Care Pharmacist Medication reconciliation complete Please reach out via [employer] secure chat for questions, or if no response call [phone] or [employer] [facility] * Claritza Benitez - 10/07/2025 8:01 AM EST Internal Medicine Progress Note Glo Ruano is a 40 y.o. female on day 1 of admission presenting with Osteomyelitis of right foot, unspecified type (Multi). Subjective Glo Ruano is a 40 y.o. female with a past medical history of HTN, HLD, migraines, non insulin dependent T2DM, and chronic hyperkeratosis of bilateral second toes who presents for increased bilateral second toe pain and swelling after undergoing bilateral distal second toe amputation by podiatry on 09/09/2025. She initially visited an urgent care for toe pain and was told to come to the ED. Ms. Ruano has noticed increased pain around the surgical wound of both her toes and discoloration of her toe to black. She endorses numbness in first toe on right foot as well. Patient denies any fever, chills, dizziness, shortness of breath, chest pain, abdominal pain, nausea, vomiting 10 point ROS performed and negative unless stated above. Patient is irritable and states she will leave unless she gets a bed by 10 AM. Objective Vitals: I/O: Vitals: 10/07/25 0533 BP: 116/76 Pulse: 65 Resp: 16 Temp: 36.6 ??C (97.9 ??F) SpO2: 97% 24hr Min/Max: Temp Min: 36.6 ??C (97.9 ??F) Max: 36.7 ??C (98 ??F) Pulse Min: 65 Max: 88 BP Min: 116/76 Max: 120/84 Resp Min: 16 Max: 18 SpO2 Min: 97 % Max: 98 % No intake or output data in the 24 hours ending 10/07/25 0802 Weight: 95.3 kg (210 lb) (10/06/25 1726) Daily Weight 10/06/25 : 95.3 kg (210 lb) Relevant Results Results from last 7 days Lab Units 10/07/25 0530 10/06/25 1755 WBC AUTO x10*3/uL 10.0 12.0* HEMOGLOBIN g/dL 12.3 13.2 HEMATOCRIT % 35.6* 38.2 PLATELETS AUTO x10*3/uL 350 367 Results from last 7 days Lab Units 10/07/25 0530 10/06/25 1755 SODIUM mmol/L 144 141 POTASSIUM mmol/L 3.2* 3.3* CO2 mmol/L 24 21 ANION GAP mmol/L 12 14 BUN mg/dL 6 5* CREATININE mg/dL 0.46* 0.37* GLUCOSE mg/dL 121* 78 EGFR mL/min/1.73m*2 >90 >90 MAGNESIUM mg/dL 1.73 1.92 PHOSPHORUS mg/dL 3.3 -- Results from last 7 days Lab Units 10/06/25 1755 ALT U/L 5* AST U/L 10 ALK PHOS U/L 60 No lab exists for component: PT Results from last 7 days Lab Units 10/06/251927 FIO2 % 21 Results from last 7 days Lab Units 10/06/251927 POCT PH, VENOUS pH 7.45* POCT PCO2, VENOUS mm Hg 40* Results from last 7 days Lab Units 10/06/25192710/06/251754 [facility] ng/L <3 <3 Physical Exam HENT: Head: Normocephalic and atraumatic. Cardiovascular: Rate and Rhythm: Normal rate and regular rhythm. Pulses: Normal pulses. Heart sounds: Normal heart sounds. Pulmonary: Effort: Pulmonary effort is normal. Breath sounds: Normal breath sounds. Abdominal: General: Abdomen is flat. Palpations: Abdomen is soft. Musculoskeletal: General: Tenderness present. Cervical back: Normal range of motion and neck supple. Comments: Tenderness to palpation of 2nd toes bilaterally Skin: General: Skin is warm and dry. Neurological: General: No focal deficit present. Mental Status: She is alert and oriented to person, place, and time. Medications Scheduled Medications[1] Continuous Medications[2] PRN Medications[3] Assessment/Plan Glo Ruano is a 40 y.o. female with a past medical history of HTN, HLD, migraines, non insulin dependent T2DM, and chronic hyperkeratosis of bilateral second toes who presents for increased bilateral second toe pain and swelling after undergoing bilateral distal second toe amputation by podiatry on 09/09/2025. Patient will need podiatry evaluation and is pending MRI. May need debridement pending podiatry recommendations. We will hold off on starting antibiotics until bone cultures are obtained. Patient is HDS and there is no concern for systemic infection. #c/f bilateral foot osteomyelitis of 2nd great toes #recent distal amputation by podiatry on 09/09 -Bilateral xrays showing c/f acute OM -Patient is HDS -Leukocytosis resolved (WBC 12 --> 10) 10/07 AM -Bilateral toes with dark discoloration, swelling and tenderness Plan -Consult to podiatry placed -Obtain MRI -Wound consulted -Antibiotics pending podiatry debridement recommendations and possible bone culture; if empiric started will likely consider Vancomycin and Zosyn - Tylenol scheduled for pain control, will consider additional breakthrough if needed #Hypokalemia #Hypomagnesemia -K+ 3.2 10/07 AM s/p 20 mEq KCl -Mag 1.73 10/07 AM Plan -Replete K+ 20 mEq PO -Replete Mag 2g IV #HTN #HLD #Migraines #T2DM #Mental Health -Hold Empagliflozn 10 for infection concern -Continue triptan PRN for migraines -Continue daily Lasix 20 PO -Continue Spirolactone 50 mg daily -SSI #1, Continue Sitagliptin 100 mg tablet, hold Semaglutide -Continue Citalopram and Cariprazine Medical Check List FEN -Fluids: PRN -Electrolytes: PRN, with goals of Mg >2, K>4 -Nutrition: NPO Diet; Effective midnight Prophylaxis: -DVT ppx: Lovenox subq -GI ppx/Bowel care: None -Abx: Pending podiatry recs/bone culture -Pain regimen: Tylenol 975 scheduled Hardware: -Drains: None -Lines: PIV Social: -Code: Full Code -NOK/Surrogate Decision Maker: Daughter ([phone] ) Patient assessment and plan staffed with the attending physician on service, Dr. Christian Pham. Claritza Benitez MS3 [1] cariprazine, 4.5 mg, oral, Daily cetirizine, 10 mg, oral, Daily citalopram, 20 mg, oral, Daily empagliflozin, 25 mg, oral, Daily furosemide, 20 mg, oral, Daily insulin lispro, 0-5 Units, subcutaneous, TID AC magnesium sulfate, 2 g, intravenous, Once mometasone, 1 puff, inhalation, Daily polyethylene glycol, 17 g, oral, Daily potassium chloride, 40 mEq, oral, Once rOPINIRole, 1 mg, oral, TID SITagliptin phosphate, 100 mg, oral, Daily spironolactone, 50 mg, oral, Daily [2] [3] PRN medications: acetaminophen, albuterol, albuterol, dextrose, dextrose, glucagon, glucagon, sodium chloride, SUMAtriptan Cosigned by Christian Pham MD at 10/07/2025 10:38 AM EST Associated attestation - Christian Pham MD - 10/07/2025 10:38 AM EST I saw and evaluated the patient. I personally obtained the ventura and critical portions of the historyand physical exam or was physically present for ventura and critical portions performed by the resident/fellow. I reviewed the resident/fellow's documentation and discussed the patient with the resident/f isamar. I agree with the resident/fellow's medical decision making as documented in the note. documented in this encounter H&P Notes * Marcelo Durbin MD - 10/07/2025 10:35 AM EST History Of Present Illness Glo Ruano is a 40 y.o. female with a past medical history of HTN, HLD, migraines, non insulin dependent T2DM, and chronic hyperkeratosis of bilateral second toes who presents for increased bilateral second toe pain and swelling after undergoing bilateral distal second toe amputation by podiatry on 09/09/2025. Ms. Ruano has noticed increased pain around the surgical wound of both her toes anddiscoloration of her toe to black. She was last seen by podiatry on 09/27 where her sutures were removed and healing was documented as progressing well. Over the last few days however, the patient hashad increased tenderness on both of her second toes as well as increased swelling. She presented tot ED, where foot x rays were taken and demonstrated concern for osteomyelitis. Patient is HDS, afebrile, resting comfortably on presentation and in no acute distress. Labs are unremarkable except for mild leukocytosis. She denies any fevers, chills, dysuria, abdominal pain, shortness of breath, chest pain, or any other symptoms. Past Medical History She has no past medical history on file. Surgical History She has a past surgical history that includes Abdominal surgery; Colonoscopy; Foot surgery; Gallbladder surgery; Tubal ligation; Tumor excision; Partial hysterectomy; and Foot surgery (Left). Social History She reports that she has been smoking cigarettes. She has never used smokeless tobacco. She reportsthat she does not drink alcohol and does not use drugs. Family History Family History[1] Allergies Tramadol, Ketorolac, and Prednisone Review of Systems Constitutional: Negative for chills and fever. Respiratory: Negative for cough, chest tightness and shortness of breath. Cardiovascular: Negative for chest pain, palpitations and leg swelling. Gastrointestinal: Negative for abdominal pain, nausea and vomiting. Genitourinary: Negative for dysuria. Physical Exam HENT: Head: Normocephalic and atraumatic. Cardiovascular: Rate and Rhythm: Normal rate and regular rhythm. Pulses: Normal pulses. Heart sounds: Normal heart sounds. Pulmonary: Effort: Pulmonary effort is normal. Breath sounds: Normal breath sounds. Abdominal: General: Abdomen is flat. Palpations: Abdomen is soft. Musculoskeletal: General: Tenderness present. Cervical back: Normal range of motion and neck supple. Comments: Tenderness to palpation of 2nd toes bilaterally Skin: General: Skin is warm and dry. Neurological: General: No focal deficit present. Mental Status: She is alert and oriented to person, place, and time. Last Recorded Vitals BP 120/84 Pulse 88 Temp 36.7 ??C (98 ??F) Resp 18 Wt 95.3 kg (210 lb) SpO2 98% Relevant Results Labs Results from last 7 days Lab Units 10/06/25 1755 WBC AUTO x10*3/uL 12.0* HEMOGLOBIN g/dL 13.2 HEMATOCRIT % 38.2 PLATELETS AUTO x10*3/uL 367 Results from last 7 days Lab Units 10/06/25 1755 SODIUM mmol/L 141 POTASSIUM mmol/L 3.3* CHLORIDE mmol/L 109* CO2 mmol/L 21 BUN mg/dL 5* CREATININE mg/dL 0.37* CALCIUM mg/dL 8.6 MAGNESIUM mg/dL 1.92 Results from last 7 days Lab Units 10/06/25 1755 ALK PHOS U/L 60 BILIRUBIN TOTAL mg/dL 0.3 PROTEIN TOTAL g/dL 6.9 ALT U/L 5* AST U/L 10 Imaging XR toe left 2+ views Final Result 1. Either previous amputation or chronic erosion of the 2nd toe distal phalanges, as detailed above. The remnant of the right distal phalanx demonstrates slight cortical irregularity which could indicate acute osteomyelitis in the appropriate clinical setting. MRI is more sensitive for early changes of osteomyelitis and may be considered if clinically indicated. Soft tissue swelling of both 2nd toes with either skin irregularity or small amount of superficial gas in the region of the nail bed. No radiopaque foreign body. I have reviewed the images/study and I agree with the findings as stated by Rafael Rivera MD (PGY-3). MACRO: None Signed by: Audra Badillo 10/06/2025 8:05 PM Dictation workstation: [id number] XR toe right 2+ views Final Result 1. Either previous amputation or chronic erosion of the 2nd toe distal phalanges, as detailed above. The remnant of the right distal phalanx demonstrates slight cortical irregularity which could indicate acute osteomyelitis in the appropriate clinical setting. MRI is more sensitive for early changes of osteomyelitis and may be considered if clinically indicated. Soft tissue swelling of both 2nd toes with either skin irregularity or small amount of superficial gas in the region of the nail bed. No radiopaque foreign body. I have reviewed the images/study and I agree with the findings as stated by Rafael Rivera MD (PGY-3). MACRO: None Signed by: Audra Badillo 10/06/2025 8:05 PM Dictation workstation: [id number] Assessment/Plan Assessment & Plan Osteomyelitis of right foot, unspecified type (Multi) Pain in toes of both feet Glo Ruano is a 40 y.o. female with a past medical history of HTN, HLD, migraines, non insulin dependent T2DM, and chronic hyperkeratosis of bilateral second toes who presents for increased bilateral second toe pain and swelling after undergoing bilateral distal second toe amputation by podiatry on 09/09/2025. Patient will need podiatry evaluation. Will order wound cultures and hold off on starting antibiotics until cultures from the bone are obtained as patient is HDS and there is no concern for systemic infection. #c/f bilateral foot osteomyelitis of 2nd great toes #recent distal amputation by podiatry on 09/09 -Bilateral xrays showing c/f acute OM -Patient is HDS -Mild leukocytosis but consisted from previous labs in 07/2025 -Bilateral toes with discoloration, swelling and tenderness Plan -Consult to podiatry placed; page in the morning -Obtain MRI in the AM if deemed necessary -Will make NPO at VT for possible procedure -Wound consulted -Will hold off starting abx until wound cultures are drawn #HTN #HLD #Migraines #T2DM #Mental Health -Continue triptan PRN for migraines -Continue empagliflozn 10 -Continue daily lasix 20 PO -Continue spirolactone 50 mg daily -SSI #1, Continue sitagliptin 100 mg tablet, hold semaglutide -Continue citalopram and cariprazine F: PRN E: PRN N: Regular A: PIV DVT: Lovenox Code Status: Full NOK: Daughter ([phone] ) Patient to be seen and staffed by an attending physician in the AM Marcelo Durbin MD Internal Medicine PGY2 [1] Family History Problem Relation Name Age of Onset Hypertension Mother Hyperlipidemia Mother Diabetes type I Mother Other (cardiac disoeder) Mother Cosigned by Christian Pham MD at 10/07/2025 10:35 AM EST Associated attestation - Christian Pham MD - 10/07/2025 10:35 AM EST I saw and evaluated the patient. I personally obtained the ventura and critical portions of the historyand physical exam or was physically present for ventura and critical portions performed by the resident/fellow. I reviewed the resident/fellow's documentation and discussed the patient with the resident/f isamar. I agree with the resident/fellow's medical decision making as documented in the note. documented in this encounter ED Notes * Krzysztof Rae MD - 10/06/2025 6:03 PM EST History of Present Illness History provided by: Patient Limitations to History: None External Records Reviewed with Brief Summary: None HPI: Glo Ruano is a 40 y.o. female with medical history notable for history of diabetes, she has had prior toe infections and required bilateral second toe bone removal with flap which was performed in August around the middle of the month. She presents today with worsening pain in the 2 recently operated on toes without pain through the rest of the foot. She notes that she is concerned about infection and the general quality of the wound noting that it appears black around her sutures but denies purulence or seepage. Also complaining of right sided chest pain without shortness of breath, worse with deep inspirationbut also worse when moving her neck and shoulder. Pain is in the right side of the chest and radiates to the back and up the right side of the neck. Notes that this is consistent with prior pain thatshe has had chronic cervical injury. Denies nausea, vomiting, fevers, chills, sweats Physical Exam Triage vitals: T 36.7 ??C (98 ??F) HR 88 BP 120/84 RR 18 O2 98 % None (Room air) General: Awake, alert, in no acute distress Eyes: Gaze conjugate. No scleral icterus or injection, PERRL HENT: Normo-cephalic, atraumatic. No stridor CV: Regular rate, regular rhythm. Radial and DP pulses 2+ bilaterally. Heart sounds are normal Resp: Breathing non-labored, speaking in full sentences. Clear to auscultation bilaterally Chest: non-tender GI: Soft, non-distended, non-tender. No rebound or guarding. MSK/Extremities: No gross bony deformities. Moving all extremities. There is pain through palpationof the cervical region worse on the right side than the midline, no step-offs throughout the spine and the C, T, L spines. Large muscle spasm noted in the upper portions of the right sided trapezius muscles. The bilateral lower extremities are nonerythematous, nonedematous throughout the legs. There is severe tenderness to the toes bilaterally R >L only in the second toe, no other toes are tender. Surgical wound is present on the anterior most portions of the second toes bilaterally consistent with the reported surgery Skin: Warm. Appropriate color Neuro: Alert. Orientedx4. Face symmetric. Speech is fluent. Gross strength and sensation intact in b/l UE and LEs Psych: Appropriate mood and affect Medical Decision Making & ED Course Medical Decision Makin y.o. female with 2 disparate complaints, she has no abdominal symptoms and palpable pulses in the bilateral DPs of the feet. I have no suspicion at this time for aortic dissection leading to patient having both of these symptoms with a singular cause. She does have reproducible tenderness in thearea of the muscle spasm in the right sided upper and middle trapezius which is consistent with prior episodes of pain. Will plan for treatment with Robaxin and did not obtain imaging as patient doesnot report trauma in the area and has strong history of prior symptoms in the same area. Obtain bilateral x-rays of the feet to screen for osteomyelitis, did not initially feel that it wasnecessary to obtain ESR/CRP as the wounds appeared reassuring, patient thoroughly neurovascularly intact. The right foot did have an appearance consistent with osteomyelitis, will not start empiric antibiotics as patient has stable at this time, does have a mild white count but no other SIRS criteria to imply sepsis. Will not give empiric antibiotics in order to preserve potential wound culture or intraoperative culture but I suspect patient will require during a presumed debridement if osteomyelitis is confirmed on MRI or by other means. Patient does not require emergent surgery so she will be admitted to medicine service and will not obtain stat consult with podiatry ED Course: ED Course as of 10/07/25 001SatOct 06, 20252027 Blood Gas Venous Full Panel(!) [CJ] 2054 I independently reviewed the12 lead ECG completed at 1732 showing normal sinus rhythm at a rate of 85 bpm. [place] is normal. R wave progressions across precordium is good. There are no ST elevations, there are t wave inversions in the inferolateral leads. NC, QRS, and QT intervals are appropriate. [KV] ED Course User Index [CJ] Krzysztof Rae MD [KV] Holly Rowe MD Diagnoses as of 10/07/25 0010 Pain in toes of both feet Osteomyelitis of right foot, unspecified type (Multi) --- Social Determinants of Health which Significantly Impact Care: None identified EKG Independent Interpretation: EKG interpreted by myself. Please see ED Course for full interpretation. The patient was discussed with the following consultants/services: Admission Coordinator who accepted the patient for admission Independent Result Review and Interpretation: Relevant laboratory and radiographic results were reviewed and independently interpreted by myself. As necessary, they are commented on in the ED Course. Chronic conditions affecting the patient's care: As documented above in MDM Care Considerations: As documented above in MDM Disposition As a result of their workup, the patient will require admission to the hospital. The patient was informed of her diagnosis. The patient was given the opportunity to ask questions and I answered them.The patient agreed to be admitted to the hospital. Procedures Procedures This was a shared visit with an ED attending. The patient was seen and discussed with the ED attending Krzysztof Rae MD Emergency Medicine Krzysztof Rae MD Resident 10/07/25 0029 Cosigned by Holly Roew MD at 10/09/2025 7:10 AM EST Associated attestation - Holly Rowe MD - 10/09/2025 7:10 AM EST I reviewed the resident/fellow's documentation and discussed the patient with the resident/fellow. I agree with the resident/fellow's medical decision making as documented in the note. Holly Rowe MD * Asa Adler RN - 10/06/2025 5:25 PM EST Patient presents to the Emergency department with a chief complaint of bilateral 2nd toe infection.Patient states she had surgery on the second. Patient also endorses right sided chest pain that radiates to the back and neck. Patient states the pain is crushing and constant. Patient states deep betty athing/coughing/sneezing makes the pain worse. documented in this encounter Miscellaneous Notes * Hospital Course - Joao Leone MD - 10/07/2025 12:10 PM EST Presented at after 2 weeks of worsening bilateral foot pain following suture removal for distal phalanx amputation. On arrival patient was afebrile and hemodynamically stable with leukocytosis with elevated CRP, normal ESR. X-ray of both feet concerning for osteomyelitis. Primary team intended for advanced imaging with MRI with podiatry consulted. Due to prolonged wait time in the ED before bed was available, patient became frustrated and expressed desire to leave AGAINST MEDICAL ADVICE. The primary team counseled the patient about her current situation including the concern for osteomyelitisand advised her to stay for treatment. The patient understood her situation and still expressed desire to leave AGAINST MEDICAL ADVICE, stating she would present to [facility]. She was prescribed acetaminophen for pain management prior to discharge. * Significant Event - Tex Boone DPM - 10/07/2025 12:05 PM EST Attempted to see the patient twice. She was not in her bed. Spoke with ED provider about ordering MRI and starting broad spectrum antibiotics for concern for osteomyelitis. Also recommend ordering MILIND/PVR to assess blood flow. Will attempt to see the patient again tomorrow when admitted. * Significant Event - Joao Leone MD - 10/07/2025 12:03 PM EST Capacity Assessment Tool Capacity is the ability to make a decision. The decision in question must be specific (one decision), relevant to a patient's current condition (appropriate), and timely (neither prospective nor retrospective). Capacity varies based on knowledge base (explanation/understanding of clinical information), cognitive processing, acute psychiatric illness, and other clinical conditions. In order to be deemed capacitated to make a single decision at one point in time, a patient must demonstrate all 4 of the following elements: *Ability to consistently communicate a choice (consistent over time with adequate information) *Ability to understand the relevant information (accurate knowledge of condition) *Ability to appreciate the situation and its consequences (risks/benefits, pros/cons) *Ability to reason about treatment options (without undue influence of a person or condition, eg. suicidality or acute psychosis) Current Decision Clinical issue: Suspect osteomyelitis Did the appropriate team address relevant information with the patient: Yes Date: 10/07 If NO is selected for appropriate team, then please discuss with the appropriate team. The appropriate team should be encouraged to address relevant information with the patient AND reevaluate capacity when appropriate. Capacity Evaluation Patient demonstrates ability to consistently communicate choice: Yes Patient has made her wishes clear that she would like to be discharged despite medical advice to stay. Patient demonstrates ability to understand the relevant information: Yes patient understands that she has concerns for infection in her feet that may become worse or result in permanent dysfunction or . Patient demonstrates ability to appreciate the situation and its consequences: Yes. Understood that condition may worsen if proper care is not received. Patient demonstrates ability to reason about treatment options: Yes. Patient would like to discharged to [facility]. If ANY of the above items are answered NO, the patient LACKS CAPACITY for that specific decision at hand, at that specific time. Further capacity evaluations can be done as needed. Joao Leone MD Department of Medicine - PGY1 [facility] Cosigned by Christian Pham MD at 10/07/2025 3:19 PM EST Associated attestation - Christian Pham MD - 10/07/2025 3:19 PM EST The patient was seen and examined this morning. She decided to leave [facility] despite explaining to her the need to proceed with the work up for likely osteomyelitis and the likelihood that her condition may worsen without appropriate medical care. * Significant Event - Joao Leone MD - 10/07/2025 11:46 AM EST Significant Event: Patient leaving AGAINST MEDICAL ADVICE The patient is clinically not intoxicated, free from distracting pain, appears to have intact insight, judgment and reason and in my medical opinion has the capacity to make decisions. The patient isalso not under any duress to leave the hospital. In this scenario, it would be battery to subject apatient to treatment against his/her will. I have voiced my concerns for the patient's health giventhat a full evaluation and treatment had not occurred. I have discussed the need for continued evaluation for a suspected infection in the bones of her feet which includes admission, MRI, and podiatry evaluation, along with potentially starting antibiotics pending imaging results to determine if their symptoms are caused by a condition that present risk of or morbidity. Risks including but not limited to or permanent disability were discussed. I discussed the importance of additional treatment in hopes that the patient might be amenable to remaining admitted for any treatment which would be medically beneficial to the patient. However, the patient declined my options and insisted on leaving. Because I have been unable to convince the patient to stay, I answered all of their questions about their condition and asked them to return for evaluation to the medical treatment facility of their choosing as soon as possible to complete their evaluation, especially if their symptoms worsen or do not improve. Joao Leone MD Department of Medicine - PGY1 [facility] Cosigned by Christian Pham MD at 10/07/2025 3:21 PM EST Associated attestation - Christian Pham MD - 10/07/2025 3:21 PM EST The patient was seen and examined. The concern for osteomyelitis was explained to her as well as the need for further diagnostic work up. She decided that she wanted to leave against medical advice. documented in this encounter Plan of Treatment DateTypeDepartmentCare Team (Latest Contact Info)Omochkbgymd32/02/2026 10:00 AM ESTOffice Visit [facility] [address] [facility] [address] [place] [address] Krystal Koehler MD [address] [facility] [address] [place], [place] [id number] NameTypePriorityAssociated DiagnosesOrder ScheduleTissue/Wound Culture/Smear MicrobiologyRoutineOnce (Lab) for 1 Occurrences starting 10/06/2025 until 10/06/2025documented as of this encounter Procedures Procedure NamePriorityDate/TimeAssociated DiagnosisCommentsPOCT GLUCOSERoutine 10/07/2025 6:41 AM EST CBC WITH AUTO VXGUDAHWGMAKRosaoab89/13/2025 5:30 AM EST MANUAL JOOUSIGACIQKZvfivtm27/13/2025 5:30 AM EST SEDIMENTATION RATE, AUTOMATEDAdd-On10/07/2025 5:30 AM EST C-REACTIVE PROTEINAdd-On10/07/2025 5:30 AM EST OIVZLAWDVXhrzwtz93/13/2025 5:30 AM EST RENAL FUNCTION OLULAThqbmpr44/13/2025 5:30 AM EST SERIAL TROPONIN, 1 UFHBQNKI88/12/2025 7:28 PM EST BLOOD GAS VENOUS FULL VILDMHZGW54/12/2025 7:28 PM EST XR TOE LEFT 2+ TKVXCYSPN57/12/2025 7:14 PM EST XR TOE RIGHT 2+ EFMHVXRBJ13/12/2025 7:14 PM EST TROPONIN SERIES- (INITIAL, 1 HR)STAT112/06/2024 5:55 PM EST CBC WITH AUTO WLVXXGEJCUUQVWAR45/12/2025 5:55 PM EST SERIAL TROPONIN-LIMBVGZGHCD99/12/2025 5:55 PM EST ZDPRVPGAPEWFKV24/12/2025 5:55 PM EST MAGNESIUMAdd-On10/06/2025 5:55 PM EST COMPREHENSIVE METABOLIC IEGPHGBIK81/12/2025 5:55 PM EST ECG 12-DQKOKDPP72/12/2025 5:33 PM EST documented in this encounter Results * POCT GLUCOSE (10/07/2025 6:41 AM EST)ComponentValueRef RangeTest Method Analysis TimePerformed AtPathologist SignaturePOCT Tyvzdmn5723 - 99 mg/dL 10/07/2025 6:42 AM [facility] LABSpecimen (Source)Anatomical Location / LateralityCollection Method / VolumeCollection TimeReceived TimeBloodCapillary blood specimen / Khvwoob4810/07/2025 6:41 AM EST10/07/2025 6:42 AM EST Narrative Authorizing ProviderResult TypeResult StatusYohan Burton MD [facility] TEST DOCKED DEVICE UNSOLICITED RESULTSFinal ResultPerforming Organization AddressCity/State/ZIP CodePhone Number [facility] [address] [place] [phone] * (ABNORMAL) C-reactive protein (10/07/2025 5:30 AM EST)ComponentValueRef Range Test MethodAnalysis TimePerformed AtPathologist SignatureC-Reactive Protein 1.37(H)<1.00 mg/dL LAB CHEMISTRY METHOD 10/07/2025 7:29 AM [facility] LABSpecimen (Source)Anatomical Location / Laterality Collection Method / VolumeCollection TimeReceived TimeBloodVenous blood specimen / UnknownVenipuncture / Mfmodac8710/07/2025 5:30 AM EST10/07/2025 5:44 AM EST Narrative Authorizing ProviderResult TypeResult StatusHolly Rowe MDLAB BLOOD ORDERABLESFinal ResultPerforming OrganizationAddressCity/State/ZIP CodePhone Number [facility] [address] [place] [phone] * Sedimentation Rate (10/07/2025 5:30 AM EST)ComponentValueRef RangeTest Method Analysis TimePerformed AtPathologist SignatureSedimentation Rwjv612 - 20 mm/h LAB HEMATOLOGY METHOD 10/07/2025 8:34 AM [facility] LABSpecimen (Source)Anatomical Location / Laterality Collection Method / VolumeCollection TimeReceived TimeBloodVenous blood specimen / UnknownVenipuncture / Fbjsnzy9310/07/2025 5:30 AM EST10/07/2025 5:44 AM EST Narrative Authorizing ProviderResult TypeResult StatusHolly BEGUM BLOOD ORDERABLESFinal ResultPerforming OrganizationAddressCity/State/ZIP CodePhone Number [facility] [address] [address] [place] [address] * (ABNORMAL) Manual Differential (10/07/2025 5:30 AM EST)ComponentValueRef Range Test MethodAnalysis TimePerformed AtPathologist SignatureNeutrophils %, Manual 36.240.0 - 80.0 %10/07/2025 6:12 AM [facility] LABComment:Percent differential counts (%) should be interpreted in the context of the absolute cell counts (cells/uL).Bands %, Manual0.00.0 - 5.0 %10/07/2025 6:12 AM [facility] Lymphocytes %, Ordtrv58.613.0 - 44.0 %10/07/2025 6:12 AM ESTGE[facility] LABMonocytes %, Manual4.32.0 - 10.0 %10/07/2025 6:12 AM [facility] LABEosinophils %, Manual 0.90.0 - 6.0 %10/07/2025 6:12 AM ESTGE[facility] LABBasophils %, Manual0.00.0 - 2.0 % 10/07/2025 6:12 AM EST[facility] LABAtypical Lymphocytes %, Manual0.00.0 - 2.0 % 10/07/2025 6:12 AM [facility] LABMetamyelocytes %, Manual0.00.0 - 0.0 % 10/07/2025 6:12 AM [facility] LABMyelocytes %, Manual0.00.0 - 0.0 %10/07/2025 6:12 AM EST[facility] LABPlasma Cells %, Manual0.00.00 - 0.00 %10/07/2025 6:12 AM [facility] LABPromyelocytes %, Manual0.00.0 - 0.0 %10/07/2025 6:12 AM [facility] LABBlasts %, Manual0.00.0 - 0.0 %10/07/2025 6:12 AM ESTGE[facility] LABOthers %, Manual0.0%10/07/2025 6:12 AM [facility] LABSeg Neutrophils Absolute, Manual3.62 1.20 - 7.00 x10*3/uL10/07/2025 6:12 AM [facility] LABBands Absolute, Manual0.00 0.00 - 0.70 x10*3/uL10/07/2025 6:12 AM [facility] LABLymphocytes Absolute, Manual5.86(H)1.20 - 4.80 x10*3/uL10/07/2025 6:12 AM [facility] LABMonocytes Absolute, Manual0.430.10 - 1.00 x10*3/uL10/07/2025 6:12 AM [facility] LAB Eosinophils Absolute, Manual0.090.00 - 0.70 x10*3/uL10/07/2025 6:[address] [facility] LABBasophils Absolute, Manual0.000.00 - 0.10 x10*3/uL10/07/2025 6:12 AM [facility] LABAtypical Lymphs Absolute, Manual0.000.00 - 0.50 x10*3/uL10/07/2025 6:12 AM [facility] LABMetamyelocytes Absolute, Manual0.000.00 - 0.00 x10*3/uL 10/07/2025 6:12 AM [facility] LABMyelocytes Absolute, Manual0.000.00 - 0.00 x10*3/uL10/07/2025 6:12 AM [facility] LABPlasma Cells Absolute, Manual0.000.00 - 0.00 x10*3/uL10/07/2025 6:12 AM [facility] LABPromyelocytes Absolute, Manual 0.000.00 - 0.00 x10*3/uL10/07/2025 6:12 AM [facility] LABBlasts Absolute, Manual 0.000.00 - 0.00 x10*3/uL10/07/2025 6:12 AM [facility] LABOthers Absolute, Manual 0.00x10*3/uL10/07/2025 6:12 AM [facility] LABTotal Cells Imoysih67822/13/2025 6:12 AM [facility] LABNeutrophils Absolute, Manual3.621.20 - 7.70 x10*3/uL 10/07/2025 6:12 AM [facility] LABManual nRBC per 100 Cells0.00.0 - 0.0 % 10/07/2025 6:12 AM [facility] LABRBC MorphologySee Below10/07/2025 6:12 AM EST [facility] BCUJwvrzlbtyhxjtRbhb60/13/2025 6:12 AM [facility] LABTarget CellsFew 10/07/2025 6:12 AM [facility] LABSpecimen (Source)Anatomical Location / LateralityCollection Method / VolumeCollection TimeReceived TimeBloodVenous blood specimen / UnknownVenipuncture / Cgbxonw5710/07/2025 5:30 AM EST10/07/2025 5:44 AM EST Narrative Authorizing ProviderResult TypeResult StatusHolly BEGUM BLOOD ORDERABLESFinal ResultPerforming OrganizationAddressCity/State/ZIP CodePhone Number [facility] [address] [facility] [address] [place] [phone] * (ABNORMAL) CBC and Auto Differential (10/07/2025 5:30 AM EST)ComponentValueRef RangeTest MethodAnalysis TimePerformed AtPathologist QcpeikloiSFQ99.04.4 - 11.3 x10*3/uL LAB HEMATOLOGY METHOD 10/07/2025 6:12 AM [facility] LABnRBC0.00.0 - 0.0 /100 WBCs LAB HEMATOLOGY METHOD 10/07/2025 6:12 AM [facility] LABRBC3.99(L)4.00 - 5.20 x10*6/uL LAB HEMATOLOGY METHOD 10/07/2025 6:12 AM [facility] SWGDjdrabfcda43.312.0 - 16.0 g/dL LAB HEMATOLOGY METHOD 10/07/2025 6:12 AM [facility] CLHNgjqbzmpnp65.6(L)36.0 - 46.0 % LAB HEMATOLOGY METHOD 10/07/2025 6:12 AM [facility] fL LAB HEMATOLOGY METHOD 10/07/2025 6:12 AM [facility] RCUCOF90.826.0 - 34.0 pg LAB HEMATOLOGY METHOD 10/07/2025 6:12 AM [facility] CPQBWMR67.632.0 - 36.0 g/dL LAB HEMATOLOGY METHOD 10/07/2025 6:12 AM [facility] AHABXH41.811.5 - 14.5 % LAB HEMATOLOGY METHOD 10/07/2025 6:12 AM [facility] EWKDnruujsqj173293 - 450 x10*3/uL LAB HEMATOLOGY METHOD 10/07/2025 6:12 AM [facility] LABImmature Granulocytes %, Automated0.10.0 - 0.9 % LAB HEMATOLOGY METHOD 10/07/2025 6:12 AM [facility] LABComment:Immature Granulocyte Count (IG) includes promyelocytes, myelocytes and metamyelocytes but does not include bands. Percent differential counts (%) should be interpreted in the context of the absolute c ell counts (cells/UL).Immature Granulocytes Absolute, Automated0.010.00 - 0.70 x10*3/uL LAB HEMATOLOGY METHOD 10/07/2025 6:12 AM [facility] LABSpecimen (Source)Anatomical Location / LateralityCollection Method / VolumeCollection TimeReceived TimeBloodVenous blood specimen / UnknownVenipuncture / Whteiog1210/07/2025 5:30 AM EST10/07/2025 5:44 AM EST Narrative [facility] - 10/07/2025 6:12 AM EST The previously reported component Neutrophils % is no longer being reported.The previously reported component Lymphocytes % is no longer being reported.The previously reported component Monocytes % is no longer being reported.The previously reported component Eosinophils % is no longer being reported.The previously reported component Basophils % is no longer being reported.The previously reported component Absolute Neutrophils is no longer being reported.The previously reported component Absolute Lymphocytes is no longer being reported.The previously reported component Absolute Monocytes is no longer being reported.The previously reported component Absolute Eosinophils is no longer being reported.The previously reported component Absolute Basophils is no longer being reported. Authorizing ProviderResult TypeResult StatusHolly BEGUM BLOOD ORDERABLESFinal ResultPerforming OrganizationAddressCity/State/ZIP CodePhone Number [facility] [address] [place] [phone] * Magnesium (10/07/2025 5:30 AM EST)ComponentValueRef RangeTest MethodAnalysis TimePerformed AtPathologist SignatureMagnesium1.731.60 - 2.40 mg/dL LAB CHEMISTRY METHOD 10/07/2025 6:16 AM [facility] LABSpecimen (Source)Anatomical Location / Laterality Collection Method / VolumeCollection TimeReceived TimeBloodVenous blood specimen / UnknownVenipuncture / Djrmnfj5310/07/2025 5:30 AM EST10/07/2025 5:44 AM EST Narrative Authorizing ProviderResult TypeResult StatusHolly Rowe [facility] BLOOD ORDERABLESFinal ResultPerforming OrganizationAddressCity/State/[place] [address] * (ABNORMAL) Renal Function Panel (10/07/2025 5:30 AM EST)ComponentValueRef RangeTest MethodAnalysis TimePerformed AtPathologist OjhjwlsipOfedgmk817(H)74 - 99 mg/dL LAB CHEMISTRY METHOD 10/07/2025 6:16 AM [facility] ATUBulsng695417 - 145 mmol/L LAB CHEMISTRY METHOD 10/07/2025 6:16 AM [facility] LABPotassium3.2(L)3.5 - 5.3 mmol/L LAB CHEMISTRY METHOD 10/07/2025 6:16 AM [facility] CKATqufrftm250(H)98 - 107 mmol/L LAB CHEMISTRY METHOD 10/07/2025 6:16 AM [facility] EJVGjoqxmjfhdg7566 - 32 mmol/L LAB CHEMISTRY METHOD 10/07/2025 6:16 AM [facility] LABComment:Bicarbonate results may be falsely elevated when Lactate Dehydrogenase (LDH) concentrations exceed 2,000 U/L due to a temporary reagent manufacturing issue. If significantly elevated LDH levels are suspected, interpret bicarbonate results with caution, correlate with the patient???s clinical status, and consider confirming CO2 values using a blood gas analyzer.Anion Phy1542 - 20 mmol/L LAB CHEMISTRY METHOD 10/07/2025 6:16 AM [facility] LABUrea Nezjwhqr84 - 23 mg/dL LAB CHEMISTRY METHOD 10/07/2025 6:16 AM [facility] LABCreatinine0.46(L)0.50 - 1.05 mg/dL LAB CHEMISTRY METHOD 10/07/2025 6:16 AM [facility] LABeGFR>90>60 mL/min/1.73m*2 LAB CHEMISTRY METHOD 10/07/2025 6:16 AM [facility] LABComment: Calculations of estimated GFR are performed using the 2020 CKD-EPI Study Refit equation without therace variable for the IDMS-Traceable creatinine methods. https://jasn.asnjournals.org/content/early//ASN.0026344396 Calcium8.4(L)8.6 - 10.6 mg/dL LAB CHEMISTRY METHOD 10/07/2025 6:16 AM [facility] LABPhosphorus3.32.5 - 4.9 mg/dL LAB CHEMISTRY METHOD 10/07/2025 6:16 AM [facility] LABAlbumin3.63.4 - 5.0 g/dL LAB CHEMISTRY METHOD 10/07/2025 6:16 AM [facility] LABSpecimen (Source)Anatomical Location / Laterality Collection Method / VolumeCollection TimeReceived TimeBloodVenous blood specimen / UnknownVenipuncture / Afrwnqi2610/07/2025 5:30 AM EST10/07/2025 5:44 AM EST Narrative Authorizing ProviderResult TypeResult StatusHolly BEGUM BLOOD ORDERABLESFinal ResultPerforming OrganizationAddressCity/State/ZIP CodePhone Number [facility] [id number] [place], [place] [phone] * (ABNORMAL) Blood Gas Venous Full Panel (10/06/2025 7:28 PM EST)ComponentValue Ref RangeTest MethodAnalysis TimePerformed AtPathologist SignaturePOCT pH, Venous7.45(H)7.33 - 7.43 pH10/06/2025 7:31 PM [facility] LABPOCT pCO2, Oiaplz26 (L)41 - 51 mm Hg10/06/2025 7:31 PM [facility] LABPOCT pO2, Cwlzjg7753 - 45 mm Hg 10/06/2025 7:31 PM [facility] LABPOCT SO2, Ofyfnx1951 - 75 %10/06/2025 7:[facility] Oxy Hemoglobin, Rqujaw28.545.0 - 75.0 %10/06/2025 7:31 PM EST [facility] LABPOCT Hematocrit Calculated, Fkthjs37.036.0 - 46.0 %10/06/2025 7:31 PM [facility] Sodium, Ufoiuh587407 - 145 mmol/L112/06/2024 7:31 PM [facility] Potassium, Venous3.3(L)3.5 - 5.3 mmol/L112/06/2024 7:31 PM [facility] LABPOCT Chloride, Sdnfbv296(H)98 - 107 mmol/L112/06/2024 7:31 PM [facility] POCT Ionized Calicum, Venous1.111.10 - 1.33 mmol/L112/06/2024 7:31 PM [facility] LABPOCT Glucose, Ehlnpk5607 - 99 mg/dL10/06/2025 7:31 PM [facility] LAB[facility]CT Lactate, Venous1.60.4 - 2.0 mmol/L112/06/2024 7:31 [facility] Base Excess, Venous3.5(H)-2.0 - 3.0 mmol/L112/06/2024 7:31 PM [facility] HCO3 Calculated, Yifnus24.8(H)22.0 - 26.0 mmol/L112/06/2024 7:31 PM [facility] LABPOCT Hemoglobin, Abhhms77.912.0 - 16.0 g/dL10/06/2025 7:31 PM [facility] LABPOCT Anion Gap, Venous7.0(L)10.0 - 25.0 mmol/L112/06/2024 7:31 PM [facility] Patient Isyedartwgt03.0degrees Ifqvgol9110/06/2025 7:31 PM [facility] LABComment: NOTE: Patient Results are Not Corrected for VpflvwbyliiJgU953%10/06/2025 7:31 PM [facility] LABSpecimen (Source)Anatomical Location / LateralityCollection Method / VolumeCollection TimeReceived TimeBloodVenous blood specimen / UnknownVenipuncture / Kebytri1010/06/2025 7:28 PM EST10/06/2025 7:28 PM EST Narrative Authorizing ProviderResult TypeResult StatusHolly Rowe [facility] BLOOD ORDERABLESFinal ResultPerforming OrganizationAddressCity/State/ZIP CodePhone Number [facility] [address] [address] * Troponin, High Sensitivity, 1 Hour (10/06/2025 7:28 PM EST)ComponentValueRef RangeTest MethodAnalysis TimePerformed AtPathologist SignatureTroponin I, High Sensitivity (CMC)<30 - 34 ng/L LAB IMMUNOASSAY METHOD 10/06/2025 8:09 PM [facility] LABSpecimen (Source)Anatomical Location / Laterality Collection Method / VolumeCollection TimeReceived TimeBloodVenous blood specimen / UnknownVenipuncture / Vjuogqu4910/06/2025 7:28 PM EST10/06/2025 7:52 PM EST Narrative [facility] - 10/06/2025 8:09 PM EST Less than 99th percentile of normal range cutoff- Female and children under 18 years old <35 ng/L; Male <54 ng/L: Negative Repeat testing should be performed if clinically indicated. Female and children under 18 years old 35-120 ng/L; Male 54-120 ng/L: Consistent with possible cardiac damage and possible increased clinical risk. Serial measurements may help to assess extent of myocardial damage. >120 ng/L: Consistent with cardiac damage, increased clinical risk and myocardial infarction. Serial measurements may help assess extent of myocardial damage. NOTE: Children less than 1 year old may have higher baseline troponin levels and results should be interpreted in conjunction with the overall clinical context. NOTE: Troponin I testing is performed using a different testing methodology at [facility] than at other [facility]. Direct result comparisons should only be made within the same method. Authorizing ProviderResult TypeResult StatusHolly Rowe [facility] BLOOD ORDERABLESFinal ResultPerforming OrganizationAddressCity/State/ZIP CodePhone Number [facility] [address] [address] * XR toe right 2+ views (10/06/2025 7:14 PM EST)Anatomical RegionLaterality ModalityMusculoskeletalRightComputed RadiographySpecimen (Source)Anatomical Location / LateralityCollection Method / VolumeCollection TimeReceived Time 10/06/2025 7:47 PM EST10/06/2025 8:06 PM EST Impressions 10/06/2025 8:05 PM EST 1. Either previous amputation or chronic erosion of the 2nd toe distal phalanges, as detailed above. The remnant of the right distal phalanx demonstrates slight cortical irregularity which could indicate acute osteomyelitis in the appropriate clinical setting. MRI is more sensitive for early changes of osteomyelitis and may be considered if clinically indicated. ?? Soft tissue swelling of both 2nd toes with either skin irregularity or small amount of superficial gas in the region of the nail bed. No radiopaque foreign body. ? I have reviewed the images/study and I agree with the findings as stated by Rafael Rivera MD (PGY-3). ?? MACRO: None ?? Signed by: Audra Badillo 10/06/2025 8:05 PM Dictation workstation: ?? [id number] Narrative 10/06/2025 8:05 PM EST Interpreted By: Audra Badillo and Mercado Amiel STUDY: XR TOE LEFT 2+ VIEWS; XR TOE RIGHT 2+ VIEWS; ; ??10/06/2025 7:14 pm ?? INDICATION: Signs/Symptoms:second toe. ? COMPARISON: None. ?? ACCESSION NUMBER(S): [id number]; [id number] ?? ORDERING CLINICIAN: HOLLY ROWE ?? FINDINGS: Three views left 2nd toe: In place of the distal phalanx, there is a 4 mm corticated appearing os ossific density. The remainder of the 2nd toe is unremarkable. No destructive changes are seen. No acute fracture or joint malalignment. There is soft tissue swelling of the 2nd toe. Small amount of superficial soft tissue gas versus skin irregularity in the nail bed. No radiopaque foreign body. ?? Three views right 2nd toe: Most of the distal phalanx is absent, with a remnant including the articular surface present. There is slight cortical regularity of the distal aspect of the remnant. No acute fracture or malalignment. ??There is soft tissue swelling of the 2nd toe. Small amount of superficial soft tissue gas versus skin irregularity in the nail bed. No radiopaque foreign body. ?? Procedure Note Audra Badillo MD - 10/06/2025 Interpreted By: Audra Badillo and Mercado Amiel STUDY: XR TOE LEFT 2+ VIEWS; XR TOE RIGHT 2+ VIEWS; ; 10/06/2025 7:14 pm INDICATION: Signs/Symptoms:second toe. COMPARISON: None. ACCESSION NUMBER(S): [id number]; [id number] ORDERING CLINICIAN: HOLLY ROWE FINDINGS: Three views left 2nd toe: In place of the distal phalanx, there is a 4 mm corticated appearing os ossific density. The remainder of the 2nd toe is unremarkable. No destructive changes are seen. No acute fracture or joint malalignment. There is soft tissue swelling of the 2nd toe. Small amount of superficial soft tissue gas versus skin irregularity in the nail bed. No radiopaque foreign body. Three views right 2nd toe: Most of the distal phalanx is absent, with a remnant including the articular surface present. There is slight cortical regularity of the distal aspect of the remnant. No acute fracture or malalignment. There is soft tissue swelling of the 2nd toe. Small amount of superficial soft tissue gas versus skin irregularity in the nail bed. No radiopaque foreign body. IMPRESSION: 1. Either previous amputation or chronic erosion of the 2nd toe distal phalanges, as detailed above. The remnant of the right distal phalanx demonstrates slight cortical irregularity which could indicate acute osteomyelitis in the appropriate clinical setting. MRI is more sensitive for early changes of osteomyelitis and may be considered if clinically indicated. Soft tissue swelling of both 2nd toes with either skin irregularity or small amount of superficial gas in the region of the nail bed. No radiopaque foreign body. I have reviewed the images/study and I agree with the findings as stated by Rafael Rivera MD (PGY-3). MACRO: None Signed by: Audra Badillo 10/06/2025 8:05 PM Dictation workstation: [id number] Authorizing ProviderResult TypeResult StatusHolly Rowe MDIMG XR PROCEDURES Final Result * XR toe left 2+ views (10/06/2025 7:14 PM EST)Anatomical RegionLaterality ModalityMusculoskeletalLeftComputed RadiographySpecimen (Source)Anatomical Location / LateralityCollection Method / VolumeCollection TimeReceived Time 10/06/2025 7:47 PM EST10/06/2025 8:06 PM EST Impressions 10/06/2025 8:05 PM EST 1. Either previous amputation or chronic erosion of the 2nd toe distal phalanges, as detailed above. The remnant of the right distal phalanx demonstrates slight cortical irregularity which could indicate acute osteomyelitis in the appropriate clinical setting. MRI is more sensitive for early changes of osteomyelitis and may be considered if clinically indicated. ?? Soft tissue swelling of both 2nd toes with either skin irregularity or small amount of superficial gas in the region of the nail bed. No radiopaque foreign body. ? I have reviewed the images/study and I agree with the findings as stated by aRfael Rivera MD (PGY-3). ?? MACRO: None ?? Signed by: Audra Badillo 10/06/2025 8:05 PM Dictation workstation: ?? [id number] Narrative 10/06/2025 8:05 PM EST Interpreted By: Audra Badillo and Mercado Amiel STUDY: XR TOE LEFT 2+ VIEWS; XR TOE RIGHT 2+ VIEWS; ; ??10/06/2025 7:14 pm ?? INDICATION: Signs/Symptoms:second toe. ? COMPARISON: None. ?? ACCESSION NUMBER(S): [id number]; [id number] ?? ORDERING CLINICIAN: HOLLY ROWE ?? FINDINGS: Three views left 2nd toe: In place of the distal phalanx, there is a 4 mm corticated appearing os ossific density. The remainder of the 2nd toe is unremarkable. No destructive changes are seen. No acute fracture or joint malalignment. There is soft tissue swelling of the 2nd toe. Small amount of superficial soft tissue gas versus skin irregularity in the nail bed. No radiopaque foreign body. ?? Three views right 2nd toe: Most of the distal phalanx is absent, with a remnant including the articular surface present. There is slight cortical regularity of the distal aspect of the remnant. No acute fracture or malalignment. ??There is soft tissue swelling of the 2nd toe. Small amount of superficial soft tissue gas versus skin irregularity in the nail bed. No radiopaque foreign body. ?? Procedure Note Audra Badillo MD - 10/06/2025 Interpreted By: Audra Badillo and Mercado Amiel STUDY: XR TOE LEFT 2+ VIEWS; XR TOE RIGHT 2+ VIEWS; ; 10/06/2025 7:14 pm INDICATION: Signs/Symptoms:second toe. COMPARISON: None. ACCESSION NUMBER(S): [id number]; [id number] ORDERING CLINICIAN: HOLLY ROWE FINDINGS: Three views left 2nd toe: In place of the distal phalanx, there is a 4 mm corticated appearing os ossific density. The remainder of the 2nd toe is unremarkable. No destructive changes are seen. No acute fracture or joint malalignment. There is soft tissue swelling of the 2nd toe. Small amount of superficial soft tissue gas versus skin irregularity in the nail bed. No radiopaque foreign body. Three views right 2nd toe: Most of the distal phalanx is absent, with a remnant including the articular surface present. There is slight cortical regularity of the distal aspect of the remnant. No acute fracture or malalignment. There is soft tissue swelling of the 2nd toe. Small amount of superficial soft tissue gas versus skin irregularity in the nail bed. No radiopaque foreign body. IMPRESSION: 1. Either previous amputation or chronic erosion of the 2nd toe distal phalanges, as detailed above. The remnant of the right distal phalanx demonstrates slight cortical irregularity which could indicate acute osteomyelitis in the appropriate clinical setting. MRI is more sensitive for early changes of osteomyelitis and may be considered if clinically indicated. Soft tissue swelling of both 2nd toes with either skin irregularity or small amount of superficial gas in the region of the nail bed. No radiopaque foreign body. I have reviewed the images/study and I agree with the findings as stated by Rafael Rivera MD (PGY-3). MACRO: None Signed by: Audra Badillo 10/06/2025 8:05 PM Dictation workstation: [id number] Authorizing ProviderResult TypeResult StatusHolly Rowe MDIMG XR PROCEDURES Final Result * Magnesium (10/06/2025 5:55 PM EST)ComponentValueRef RangeTest MethodAnalysis TimePerformed AtPathologist SignatureMagnesium1.921.60 - 2.40 mg/dL LAB CHEMISTRY METHOD 10/06/2025 7:39 PM [facility] LABSpecimen (Source)Anatomical Location / Laterality Collection Method / VolumeCollection TimeReceived TimeBloodVenous blood specimen / UnknownVenipuncture / Eemqhic4310/06/2025 5:55 PM EST10/06/2025 6:02 PM EST Narrative Authorizing ProviderResult TypeResult StatusHolly Rowe [facility] BLOOD ORDERABLESFinal ResultPerforming OrganizationAddressCity/State/ZIP CodePhone Number [facility] [address] [place] [phone] * Morphology (10/06/2025 5:55 PM EST)ComponentValueRef RangeTest MethodAnalysis TimePerformed AtPathologist SignatureRBC MorphologySee Below10/06/2025 6:29 PM [facility] LABTarget LajvmIve83/12/2025 6:29 PM [facility] LABSpecimen (Source) Anatomical Location / LateralityCollection Method / VolumeCollection Time Received TimeBloodVenous blood specimen / UnknownVenipuncture / Unknown 10/06/2025 5:55 PM EST10/06/2025 6:02 PM EST Narrative Authorizing ProviderResult TypeResult StatusHolly Rowe [facility] BLOOD ORDERABLESFinal ResultPerforming OrganizationAddressty/State/ZIP CodePhone Number [facility] [address] [place] [phone] * Troponin I, High Sensitivity, Initial (10/06/2025 5:55 PM EST)ComponentValue Ref RangeTest MethodAnalysis TimePerformed AtPathologist SignatureTroponin I, High Sensitivity (CMC)<30 - 34 ng/L LAB IMMUNOASSAY METHOD 10/06/2025 6:32 PM [facility] LABSpecimen (Source)Anatomical Location / Laterality Collection Method / VolumeCollection TimeReceived TimeBloodVenous blood specimen / UnknownVenipuncture / Poivusz3110/06/2025 5:55 PM EST10/06/2025 6:02 PM EST Narrative [facility] - 10/06/2025 6:32 PM EST Less than 99th percentile of normal range cutoff- Female and children under 18 years old <35 ng/L; Male <54 ng/L: Negative Repeat testing should be performed if clinically indicated. Female and children under 18 years old 35-120 ng/L; Male 54-120 ng/L: Consistent with possible cardiac damage and possible increased clinical risk. Serial measurements may help to assess extent of myocardial damage. >120 ng/L: Consistent with cardiac damage, increased clinical risk and myocardial infarction. Serial measurements may help assess extent of myocardial damage. NOTE: Children less than 1 year old may have higher baseline troponin levels and results should be interpreted in conjunction with the overall clinical context. NOTE: Troponin I testing is performed using a different testing methodology at [facility] than at other [facility]. Direct result comparisons should only be made within the same method. Authorizing ProviderResult TypeResult StatusHolly BEGUM BLOOD ORDERABLESFinal ResultPerforming OrganizationAddressCity/State/ZIP CodePhone Number [facility] [address] [place] [phone] * (ABNORMAL) Comprehensive Metabolic Panel (10/06/2025 5:55 PM EST)Component ValueRef RangeTest MethodAnalysis TimePerformed AtPathologist SignatureGlucose 7874 - 99 mg/dL LAB CHEMISTRY METHOD 10/06/2025 6:48 PM [facility] ABUOqbvbq365851 - 145 mmol/L LAB CHEMISTRY METHOD 10/06/2025 6:48 PM [facility] LABPotassium3.3(L)3.5 - 5.3 mmol/L LAB CHEMISTRY METHOD 10/06/2025 6:48 PM [facility] FYJEnzocceo982(H)98 - 107 mmol/L LAB CHEMISTRY METHOD 10/06/2025 6:48 PM [facility] RRWFnyhewlggup7168 - 32 mmol/L LAB CHEMISTRY METHOD 10/06/2025 6:48 PM [facility] LABComment:Bicarbonate results may be falsely elevated when Lactate Dehydrogenase (LDH) concentrations exceed 2,000 U/L due to a temporary reagent manufacturing issue. If significantly elevated LDH levels are suspected, interpret bicarbonate results with caution, correlate with the patient???s clinical status, and consider confirming CO2 values using a blood gas analyzer.Anion Nnq5069 - 20 mmol/L LAB CHEMISTRY METHOD 10/06/2025 6:48 PM [facility] LABUrea Nitrogen5(L)6 - 23 mg/dL LAB CHEMISTRY METHOD 10/06/2025 6:48 PM [facility] LABCreatinine0.37(L)0.50 - 1.05 mg/dL LAB CHEMISTRY METHOD 10/06/2025 6:48 PM [facility] LABeGFR>90>60 mL/min/1.73m*2 LAB CHEMISTRY METHOD 10/06/2025 6:48 PM [facility] LABComment: Calculations of estimated GFR are performed using the 2020 CKD-EPI Study Refit equation without therace variable for the IDMS-Traceable creatinine methods. https://jasn.asnjournals.org/content/early//ASN.4886358174 Calcium8.68.6 - 10.6 mg/dL LAB CHEMISTRY METHOD 10/06/2025 6:48 PM [facility] LABAlbumin3.93.4 - 5.0 g/dL LAB CHEMISTRY METHOD 10/06/2025 6:48 PM [facility] LABAlkaline Cvjcmjsilph4566 - 110 U/L LAB CHEMISTRY METHOD 10/06/2025 6:48 PM [facility] LABTotal Protein6.96.4 - 8.2 g/dL LAB CHEMISTRY METHOD 10/06/2025 6:48 PM [facility] OVVTCP376 - 39 U/L LAB CHEMISTRY METHOD 10/06/2025 6:48 PM [facility] LABBilirubin, Total0.30.0 - 1.2 mg/dL LAB CHEMISTRY METHOD 10/06/2025 6:48 PM [facility] LABALT5(L)7 - 45 U/L LAB CHEMISTRY METHOD 10/06/2025 6:48 PM [facility] LABComment:Patients treated with Sulfasalazine may generate falsely decreased results for ALT.Specimen (Source)Anatomical Location / LateralityCollection Method / VolumeCollection TimeReceived TimeBloodVenous blood specimen / UnknownVenipuncture / Gczcycq9810/06/2025 5:55 PM EST10/06/2025 6:02 PM EST Narrative Authorizing ProviderResult TypeResult StatusHolly BEGUM BLOOD ORDERABLESFinal ResultPerforming OrganizationAddressCity/State/ZIP CodePhone Number [facility] [address] [address] [place] [phone] * (ABNORMAL) CBC with Differential (10/06/2025 5:55 PM EST)ComponentValueRef RangeTest MethodAnalysis TimePerformed AtPathologist RtrdeorleVKZ37.0(H)4.4 - 11.3 x10*3/uL LAB HEMATOLOGY METHOD 10/06/2025 6:29 PM [facility] LABnRBC0.00.0 - 0.0 /100 WBCs LAB HEMATOLOGY METHOD 10/06/2025 6:29 PM [facility] LABRBC4.314.00 - 5.20 x10*6/uL LAB HEMATOLOGY METHOD 10/06/2025 6:29 PM [facility] ORVHjmkfpmarx46.212.0 - 16.0 g/dL LAB HEMATOLOGY METHOD 10/06/2025 6:29 PM [facility] VSXIxfpolarmm71.236.0 - 46.0 % LAB HEMATOLOGY METHOD 10/06/2025 6:29 PM [facility] UKITGA8940 - 100 fL LAB HEMATOLOGY METHOD 10/06/2025 6:29 PM [facility] WQYMKZ25.626.0 - 34.0 pg LAB HEMATOLOGY METHOD 10/06/2025 6:29 PM [facility].632.0 - 36.0 g/dL LAB HEMATOLOGY METHOD 10/06/2025 6:29 PM [facility] GNPJMZ11.611.5 - 14.5 % LAB HEMATOLOGY METHOD 10/06/2025 6:29 PM [facility] YXOHrgbpbfjf886853 - 450 x10*3/uL LAB HEMATOLOGY METHOD 10/06/2025 6:29 PM [facility] LABNeutrophils %54.640.0 - 80.0 % LAB HEMATOLOGY METHOD 10/06/2025 6:29 PM [facility] LABImmature Granulocytes %, Automated0.30.0 - 0.9 % LAB HEMATOLOGY METHOD 10/06/2025 6:29 PM [facility] LABComment:Immature Granulocyte Count (IG) includes promyelocytes, myelocytes and metamyelocytes but does not include bands. Percent differential counts (%) should be interpreted in the context of the absolute c ell counts (cells/UL).Lymphocytes %38.013.0 - 44.0 % LAB HEMATOLOGY METHOD 10/06/2025 6:29 PM [facility] LABMonocytes %5.42.0 - 10.0 % LAB HEMATOLOGY METHOD 10/06/2025 6:29 PM [facility] LABEosinophils %1.20.0 - 6.0 % LAB HEMATOLOGY METHOD 10/06/2025 6:29 PM [facility] LABBasophils %0.50.0 - 2.0 % LAB HEMATOLOGY METHOD 10/06/2025 6:29 PM [facility] LABNeutrophils Absolute6.561.20 - 7.70 x10*3/uL LAB HEMATOLOGY METHOD 10/06/2025 6:29 PM [facility] LABComment:Percent differential counts (%) should be interpreted in the context of the absolute cell counts (cells/uL).Immature Granulocytes Absolute, Automated0.040.00 - 0.70 x10*3/uL LAB HEMATOLOGY METHOD 10/06/2025 6:29 PM [facility] LABLymphocytes Absolute4.561.20 - 4.80 x10*3/uL LAB HEMATOLOGY METHOD 10/06/2025 6:29 PM [facility] LABMonocytes Absolute0.650.10 - 1.00 x10*3/uL LAB HEMATOLOGY METHOD 10/06/2025 6:29 PM [facility] LABEosinophils Absolute0.140.00 - 0.70 x10*3/uL LAB HEMATOLOGY METHOD 10/06/2025 6:29 PM [facility] LABBasophils Absolute0.060.00 - 0.10 x10*3/uL LAB HEMATOLOGY METHOD 10/06/2025 6:29 PM [facility] [facility] LABSpecimen (Source)Anatomical Location / Laterality Collection Method / VolumeCollection TimeReceived TimeBloodVenous blood specimen / UnknownVenipuncture / Vwisxsx7910/06/2025 5:55 PM EST10/06/2025 6:02 PM EST Narrative Authorizing ProviderResult TypeResult StatusHolly Rowe MDMORT[facility] BLOOD ORDERABLESFinal ResultPerforming OrganizationAddressCity/State/ZIP CodePhone Number [facility] [address] [place] [phone] * ECG 12 lead (10/06/2025 5:33 PM EST)ComponentValueRef RangeTest MethodAnalysis TimePerformed AtPathologist SignatureVentricular Keqh52FLDMOADYdgepl Rate85 BPMMUSEPR Btwzxhhj583woKOFRCJE Ncsrseje63ejIFLRFI Dndpolul356taCBZHAZW Calculation(Bazett)445msMUSEP Ymvh92wqrbjieLEQRJ Stqq33ngzkuppVPNDD [place]-9 degreesMUSEQRS Ifomj94pqgqiCIYBR Uqtyq049ucDSALI Owinf336ryRLHHK Vfdocs466ng MUSET Ewzsgw337isJBWXCCU Vnyppgskor067acMVHSMiijmdip (Source)Anatomical Location / LateralityCollection Method / VolumeCollection [...] and clinical correlation Confirmed by Karli Chino ([id number]) on 10/07/2025 3:01:06 AM Procedure Note Karli Chino PA-C - 10/07/2025 Normal sinus rhythm Septal infarct (cited on or before 28-JUL-2025) T wave abnormality, consider inferior ischemia Abnormal ECG When compared with ECG of 28-JUL-2025 14:54, No significant change was found See ED provider note for full interpretation and clinical correlation Confirmed by Karli Chino ([id number]) on 10/07/2025 3:01:06 AM Authorizing ProviderResult TypeResult Jovita SILVERMAN ORDERABLES Final ResultPerforming OrganizationAddressCity/State/ZIP CodePhone Number MUSE documented in this encounter Visit Diagnoses Diagnosis Osteomyelitis of right foot, unspecified type (Multi)- Primary Pain in toes of both feet Osteomyelitis of right foot, unspecified type (Multi) Pain in toes of both feet documented in this encounter Admitting Diagnoses Diagnosis Osteomyelitis of right foot, unspecified type (Multi) Pain in toes of both feet documented in this encounter Administered Medications Medication OrderMAR ActionAction DateDoseRateSite acetaminophen (Tylenol) tablet 975 mg 975 mg, oral, Every 8 hours, First dose (after last modification) on Sat10/07/25 at 1005, If ordered PRN for pain, nurse is permitted to administer this medication for higher pain scores based on patient preference? Yes Given10/07/2025 10:30 AM XVT897 mg cariprazine (Vraylar) capsule 4.5 mg 4.5 mg, oral, Daily, First dose on Sat10/07/25 at 0900 Given10/07/2025 8:35 AM EST4.5 mg cetirizine (ZyrTEC) tablet 10 mg 10 mg, oral, Daily, First dose on Sat10/07/25 at 0900 Given10/07/2025 9:26 AM EST10 mg citalopram (CeleXA) tablet 20 mg 20 mg, oral, Daily, First dose on Sat10/07/25 at 0900 Given10/07/2025 8:39 AM EST20 mg dextrose 50 % injection 12.5 g 12.5 g, intravenous, Every 15 min PRN, For blood glucose 41 to 70 mg/dL, Starting on Sat10/06/25 at 2305, May repeat until blood glucose level reaches 100 mg/dL or greater. Push 2 - 3 mL/minute if patient has secure IV access. dextrose 50 % injection 25 g 25 g, intravenous, Every 15 min PRN, For blood glucose less than or equal to 40 mg/dL, Starting on Sat10/06/25 at 2305, May repeat until blood glucose level reaches 100 mg/dL or greater. Push 2 - 3 mL/minute if patient has secure IV access. empagliflozin (Jardiance) tablet 25 mg 25 mg, oral, Daily, First dose on Sat10/07/25 at 0900, Please hold this med 72 hours prior to an NPO event in duration of 12 hours or more. Given10/07/2025 8:39 AM EST25 mg furosemide (Lasix) tablet 20 mg 20 mg, oral, Daily, First dose on Sat10/07/25 at 0900 Given10/07/2025 8:39 AM EST20 mg glucagon (Glucagen) injection 1 mg 1 mg, intramuscular, Every 15 min PRN, blood glucose less than or equal to 40 mg/dL - see comments,For blood glucose less than or equal to 40 mg/dL and no IV access, Starting on Sat10/06/25 at 2305, Give until blood glucose is 100 mg/dL or greater. If patient DOES NOT HAVE secure IV access & patient is unconscious, NPO or is unable to eat or drink. glucagon (Glucagen) injection 1 mg 1 mg, intramuscular, Every 15 min PRN, low blood sugar - see comments, For blood glucose less than or equal to 70 mg/dL and no IV access, Starting on Sat10/06/25 at 2305, Give until blood glucose is100 mg/dL or greater. If patient DOES NOT HAVE secure IV access & patient is unconscious, NPO or is unable to eat or drink. insulin lispro injection 0-5 Units 0-5 Units, subcutaneous, 3 times daily before meals, First dose on Sat10/07/25 at 0700, Do not hold when patient is not eating, continue order as scheduled for hyperglycemia management. Insulin Lispro Corrective Scale #1 Hypoglycemia protocol Call LIP unit(s) if Blood Glucose is between 0 - 70 mg/dL 0 unit(s) if Blood glucose is between 71-150 1 unit(s) if Blood glucose is between 151-200 2 unit(s) if Blood glucose is between 201-250 3 unit(s) if Bloodglucose is between 251-300 4 unit(s) if Blood glucose is between 301-350 5 unit(s) if Blood glucose is between 351-400 If blood glucose is greater than 400 mg/dL, give max insulin per sliding scale AND then contact provider. magnesium sulfate 2 g in sterile water for injection 50 mL 2 g, intravenous, at 25 mL/hr, Administer over 2 Hours, Once, On Sat10/07/25 at 0715, For 1 dose New 10/07/2025 8:34 AM EST2 g25 mL/hr methocarbamol (Robaxin) injection 1,000 mg 1,000 mg, intravenous, Administer over 5 Minutes, Once, On Sat10/06/25 at 1955, For 1 dose Given10/06/2025 8:23 PM EST1,000 mg mometasone (Asmanex) 220 mcg/ actuation (14) inhaler 1 puff 1 puff, inhalation, Daily RT, First dose on Sat10/07/25 at 0700, Rinse mouth with water after use to reduce aftertaste and incidence of candidiasis. Do not swallow. Given10/07/2025 8:38 AM EST1 puff potassium chloride 20 mEq in sterile water for injection 100 mL 20 mEq, intravenous, at 50 mL/hr, Administer over 2 Hours, Every 2 hours, First dose on Sat10/06/25 at 2305, For 2 doses, Total dose is 40 mEq via peripheral line. New Bag10/07/2025 2:25 AM EST20 mEq50 mL/hrNew Bag10/06/2025 11:32 PM EST20 mEq 50 mL/hr potassium chloride CR (Klor-Con M20) ER tablet 20 mEq 20 mEq, oral, Once, On Sat10/07/25 at 0910, For 1 dose, Best given with food and plenty of water to minimize gastric irritation. Do not crush or chew. Given10/07/2025 9:26 AM EST20 mEq rOPINIRole (Requip) tablet 1 mg 1 mg, oral, 3 times daily, First dose on Sat10/06/25 at 2215 Given10/07/2025 8:39 AM EST1 soYcrda8010/06/2025 10:47 PM EST1 mg SITagliptin phosphate (Januvia) tablet 100 mg 100 mg, oral, Daily, First dose on Sat10/07/25 at 0900 Given10/07/2025 8:39 AM DEZ374 mg spironolactone (Aldactone) tablet 50 mg 50 mg, oral, Daily, First dose on Sat10/07/25 at 0900 Given10/07/2025 8:39 AM EST50 mg SUMAtriptan (Imitrex) tablet 25 mg 25 mg, oral, Once as needed, migraine, Starting on Sat10/06/25 at 2222, For 1 dose, May repeat dose once in 2 hours if no relief. Do not exceed 200 mg in 24 hours. documented in this encounter Active and Recently Administered Medications Times are shown in EST.Medication Order/ acetaminophen (Tylenol) tablet 975 mg 975 mg, oral, Every 8 hours, First dose (after last modification) on Sat10/07/25 at 1005, If ordered PRN for pain, nurse is permitted to administer this medication for higher pain scores based on patient preference? Yes * 1030 (Given - Provider: Dianne Goss RN) cariprazine (Vraylar) capsule 4.5 mg 4.5 mg, oral, Daily, First dose on Sat10/07/25 at 0900 * 0835 (Given - Provider: Dianne Goss RN) cetirizine (ZyrTEC) tablet 10 mg 10 mg, oral, Daily, First dose on Sat10/07/25 at 0900 * 0926 (Given - Provider: Dianne Goss RN) citalopram (CeleXA) tablet 20 mg 20 mg, oral, Daily, First dose on Sat10/07/25 at 0900 * 0839 (Given - Provider: Dianne Goss RN) empagliflozin (Jardiance) tablet 25 mg 25 mg, oral, Daily, First dose on Sat10/07/25 at 0900, Please hold this med 72 hours prior to an NPO event in duration of 12 hours or more. * 0839 (Given - Provider: Dianne Goss RN) * 1021 (Held by provider - Provider: Joao Leone MD - Reason: Other) * 1216 (Unheld by provider - Provider: Joao Leone MD) furosemide (Lasix) tablet 20 mg 20 mg, oral, Daily, First dose on Sat10/07/25 at 0900 * 0839 (Given - Provider: Dianne Goss RN) insulin lispro injection 0-5 Units 0-5 Units, subcutaneous, 3 times daily before meals, First dose on Sat10/07/25 at 0700, Do not hold when patient is not eating, continue order as scheduled for hyperglycemia management. Insulin Lispro Corrective Scale #1 Hypoglycemia protocol Call LIP unit(s) if Blood Glucose is between 0 - 70 mg/dL 0 unit(s) if Blood glucose is between 71-150 1 unit(s) if Blood glucose is between 151-200 2 unit(s) if Blood glucose is between 201-250 3 unit(s) if Bloodglucose is between 251-300 4 unit(s) if Blood glucose is between 301-350 5 unit(s) if Blood glucose is between 351-400 If blood glucose is greater than 400 mg/dL, give max insulin per sliding scale AND then contact provider. * 0642 (Not Given - Provider: Zunilda Petersen RN - Reason: Order parameters not met - Comment: POCT Glucose 91) * 1208 (Not Given - Provider: Dianne Goss RN - Reason: Other) magnesium sulfate 2 g in sterile water for injection 50 mL (COMPLETED) 2 g, intravenous, at 25 mL/hr, Administer over 2 Hours, Once, On Sat10/07/25 at 0715, For 1 dose * 0834 (New Bag - Provider: Dianne Goss RN) * 1034 (Stopped - Provider: Dianne Goss RN) methocarbamol (Robaxin) injection 1,000 mg (COMPLETED) 1,000 mg, intravenous, Administer over 5 Minutes, Once, On Sat10/06/25 at 1955, For 1 dose * 2022 (Given - Provider: Zunilda Petersen RN) mometasone (Asmanex) 220 mcg/ actuation (14) inhaler 1 puff 1 puff, inhalation, Daily RT, First dose on Sat10/07/25 at 0700, Rinse mouth with water after use to reduce aftertaste and incidence of candidiasis. Do not swallow. * 0838 (Given - Provider: Dianne Goss RN) polyethylene glycol (Glycolax, Miralax) packet 17 g 17 g, oral, Daily, First dose on Sat10/07/25 at 0900, Bowel Regimen - for prevention of constipation. * 0906 (Not Given - Provider: Dianne Goss RN - Reason: Patient/family refused) potassium chloride 20 mEq in sterile water for injection 100 mL (COMPLETED) 20 mEq, intravenous, at 50 mL/hr, Administer over 2 Hours, Every 2 hours, First dose on Sat10/06/25 at 2305, For 2 doses, Total dose is 40 mEq via peripheral line. * 2332 (New Bag - Provider: Zunilda Petersen RN) * 0132 (Stopped - Provider: Zunilda Petersen RN) * 0225 (New Bag - Provider: Zunilda Petersen RN) * 0425 (Stopped - Provider: Zunilda Petersen RN) potassium chloride CR (Klor-Con M20) ER tablet 20 mEq (COMPLETED) 20 mEq, oral, Once, On Sat10/07/25 at 0910, For 1 dose, Best given with food and plenty of water to minimize gastric irritation. Do not crush or chew. * 0926 (Given - Provider: Dianne Goss RN) rOPINIRole (Requip) tablet 1 mg 1 mg, oral, 3 times daily, First dose on Sat10/06/25 at 2215 * 2247 (Given - Provider: Zunilda Petersen RN) * 0839 (Given - Provider: Dianne Goss RN) * 1500 (Canceled Entry - Provider: Automatic Discharge Provider - Comment: Automatically canceled at discontinue of medication order) SITagliptin phosphate (Januvia) tablet 100 mg 100 mg, oral, Daily, First dose on Sat10/07/25 at 0900 * 0839 (Given - Provider: Dianne Goss RN) spironolactone (Aldactone) tablet 50 mg 50 mg, oral, Daily, First dose on Sat10/07/25 at 0900 * 0839 (Given - Provider: Dianne Goss RN) Medication Order// albuterol 2.5 mg /3 mL (0.083 %) nebulizer solution 2.5 mg 2.5 mg, nebulization, Every 4 hours PRN, wheezing, Starting on Sat10/06/25 at 2211 albuterol 90 mcg/actuation inhaler 2 puff 2 puff, inhalation, Every 4 hours PRN, wheezing, Starting on Sat10/06/25 at 2211, Shake well before use. dextrose 50 % injection 12.5 g 12.5 g, intravenous, Every 15 min PRN, For blood glucose 41 to 70 mg/dL, Starting on Sat10/06/25 at 2305, May repeat until blood glucose level reaches 100 mg/dL or greater. Push 2 - 3 mL/minute if patient has secure IV access. dextrose 50 % injection 25 g 25 g, intravenous, Every 15 min PRN, For blood glucose less than or equal to 40 mg/dL, Starting on Sat10/06/25 at 2305, May repeat until blood glucose level reaches 100 mg/dL or greater. Push 2 - 3 mL/minute if patient has secure IV access. glucagon (Glucagen) injection 1 mg 1 mg, intramuscular, Every 15 min PRN, blood glucose less than or equal to 40 mg/dL - see comments,For blood glucose less than or equal to 40 mg/dL and no IV access, Starting on Sat10/06/25 at 2305, Give until blood glucose is 100 mg/dL or greater. If patient DOES NOT HAVE secure IV access & patient is unconscious, NPO or is unable to eat or drink. glucagon (Glucagen) injection 1 mg 1 mg, intramuscular, Every 15 min PRN, low blood sugar - see comments, For blood glucose less than or equal to 70 mg/dL and no IV access, Starting on Sat10/06/25 at 2305, Give until blood glucose is100 mg/dL or greater. If patient DOES NOT HAVE secure IV access & patient is unconscious, NPO or is unable to eat or drink. sodium chloride ([address]) 0.65 % nasal spray 1 spray 1 spray, Each Nostril, As needed, congestion, Starting on Sat10/06/25 at 2211 SUMAtriptan (Imitrex) tablet 25 mg 25 mg, oral, Once as needed, migraine, Starting on Sat10/06/25 at 2222, For 1 dose, May repeat dose once in 2 hours if no relief. Do not exceed 200 mg in 24 hours. documented in this encounter Additional Health Concerns AssessmentNoted TimeA fall risk assessment has been completed for the patient 07/06/2024 10:09 AM EDTdocumented as of this encounter Care Teams Team MemberRelationshipSpecialtyStart DateEnd Date Krystal Koehler MD [address] [facility] [address] [place], [place] [id number] PCP - [facility] PCP03/25/25 Krystal Koehler MD [address] [facility] [address] [place] [address] PCP - GeneralCardiology07/28/25 Rigoberto Montano DO [address] [facility] [address], [place] [address] Referring PhysicianObstetrics and Gynecology03/23/24documented as of this encounter
--- OUTSIDE RECORDS SUMMARY | 2025-10-08 09:03 | XMS_ITS | Encounter Summary ---
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 Name Role Phone Jamia Johansen MD Unavailable [phone] Source Comments In the event this information is protected by the Federal Confidentiality of Alcohol and Drug AbusePatient Records regulations: The Federal rules restrict any use of the information to criminally investigate or prosecute any alcohol or drug abuse patient.[facility] Reason for Visit * ReasonCommentsPost Op DrainagePain (foot) * Auth/Cert (Routine)SpecialtyDiagnoses / ProceduresReferred By ContactReferred To Contact Diagnoses Other acute osteomyelitis of right foot (HCC) Osteomyelitis (HCC) Procedures Jmhjjfhyc-8C-Bfpdt/Vascular [address] [facility] [place] [address] Phone: tel: fax: Referral IDStatusReasonStart DateExpiration DateVisits RequestedVisits [id number] Encounter Details DateTypeDepartmentCare Team (Latest Contact Info)Blnaszyxezb85/14/2025 9:03 AM EST - 10/11/2025 3:33 PM ESTHospital Encounter Nvdmzpfik-7Z-Crgxv/Vascular [address] [place], [place] [id number] Caesar Sheppard DO [address] [place], [place] [id number] Anuja Pichardo MD [address] [place], [place] [id number] Other acute osteomyelitis of right foot (HCC) [M86.171] Discharge Disposition: Home Social History Tobacco UseTypesPacks/DayYears UsedDateSmoking Tobacco: Every DayCigarettes3.7 25.9Started: 2000Smokeless Tobacco: Never Comments: Alcohol UseStandard Drinks/WeekCommentsNot Currently0 (1 standard drink = 0.6 oz pure alcohol)PHQ-2AnswerDate RecordedPHQ-2 mpbif735UDIT-CAnswerDate RecordedQ1: How often do you have a drink containing alcohol?Never08/26/2025Q2: How many drinks containing alcohol do you have on a typical day when you are drinking?Patient does not drink08/26/2025Q3: How often do you have six or more drinks on one occasion?Never08/26/2025Hunger Vital SignAnswerDate RecordedWithin the past 12 months, you worried that your food would run out before you got the money to buymore.Never true10/08/2025Within the past 12 months, the food you bought just didn't last and you didn't have money to get more.Never true 10/08/2025PRAPARE - TransportationAnswerDate RecordedIn the past 12 months, has lack of transportation kept you from medical appointments or from getting medications?No10/08/2025In the past 12 months, has lack of transportation kept you from meetings, work, or from getting things needed for daily living?No 10/08/2025Housing Stability Vital SignAnswerDate RecordedIn the last 12 months, was there a time when you were not able to pay the mortgage or rent on time?No 10/08/2025In the past 12 months, how many times have you moved where you were living?t any time in the past 12 months, were you homeless or living in a correction (including now)?No10/08/2025HC UtilitiesAnswerDate RecordedIn the past 12 months has the electric, gas, oil, or water company threatened to shut off services in your home?No10/08/2025rea Deprivation IndexAnswerDate Recorded National Score (1-100), lower number is lower qlln361109/14/2025State Score (1- 10), lower number is lower nhsr739Data from: https://www.neighborhoodatlas.medicine.[facility].edu/. Last address used for [id number] [facility] [address] CommentsNoSex and Gender InformationValueDate RecordedSex Assigned at BirthNot on fileLegal SexFemale 01/12/2020 11:36 AM ESTGender IdentityNot on fileSexual OrientationNot on file documented as of this encounter Last Filed Vital Signs Vital SignReadingTime TakenCommentsBlood Kretwmdi447/7410/11/2025 7:10 AM EST Xnzou932010/11/2025 7:10 AM ZBYHumwfuhpfer32.8 ??C (98.2 ??F)10/11/2025 7:10 AM ESTRespiratory Bbyk254112/11/2024 7:10 AM ESTOxygen Tdnbtbkcbz75%10/11/2025 7:10 AM ESTInhaled Oxygen Concentration--Hvxoyl21.9 kg (207 lb)10/08/2025 8:48 AM EST Pucfvo527.1 cm (5' 5 )10/08/2025 8:48 AM ESTBody Mass Index34.45112/08/2024 8:48 AM ESTdocumented in this encounter Functional Status * Are you deaf or do you have serious difficulty hearing?AnswerDate of EksyqvnlbiBgkjumSs79/17/2025 3:05 PM Gladys Zurita RN * Are you blind or do you have serious difficulty seeing, even when wearing glasses?AnswerDate of MkjoadqlvzRelrglTy00/17/2025 3:05 PM Gladys Zurita RN * Do you have serious difficulty walking or climbing stairs?AnswerDate of VzpnkzrjktAmulgaHc92/17/2025 3:05 PM Gladys Zurita RN * Do you have difficulty dressing or bathing?AnswerDate of AssessmentAuthorNo 10/11/2025 3:05 PM Gladys Zurita RN * Because of a physical, mental, or emotional condition, do you have difficulty doing errands alone such as visiting a doctor's office or shopping?AnswerDate of PczyngqjluMplyceSg93/17/2025 3:05 PM Gladys Zurita RN documented as of this encounter Mental Status * Because of a physical, mental, or emotional condition, do you have serious difficulty concentrating, remembering, or making decisions?AnswerEntry Date NuhediUb94/17/2025 3:05 PM Gladys Zurita RN documented in this encounter Discharge Summaries * Anuja Pichardo MD - 10/11/2025 2:49 PM EST Images from the original note were not included. DISCHARGE SUMMARY PATIENT NAME: Glo Vigil ADMISSION DATE: 10/08/2025 DISCHARGE DATE: 10/11/2025 ATTENDING PHYSICIAN: Anuja Pichardo MD Code Status: Not on file Highest Readmission Risk Score: 11 The 30 day readmissions risk score is derived from an internally validated risk model which evaluates patient level characteristics, utilization history, medication orders and lab results up until the day of discharge. Patients with a score of 39 or above are considered highest risk for readmission. Specific patient level drivers will be listed at the bottom of the summary. CONSULTING TEAMS DURING HOSPITALIZATION: ID , podiatry Treatment Team: Attending Provider: Anuja Pichardo MD Consulting: Manolo Chauhan DPM Nurse Practitioner: Nu Rosa APRN.CNP REASON FOR HOSPITALIZATION: pain 2 nd toes feet FINAL DIAGNOSIS: soft tissue infection b/l 2 nd toes Active Hospital Problems Diagnosis POA Osteomyelitis (HCC) Yes Resolved Hospital Problems No resolved problems to display. OPERATIONS DURING HOSPITALIZATION: None PROCEDURES DURING HOSPITALIZATION: MRI HOSPITAL COURSE: Principal Problem: Osteomyelitis (HCC) Resolved Problems: * No resolved hospital problems. * Transitions of Care Critical Issues: LABS AND PROCEDURES PENDING AT DISCHARGE: No pending results. PATIENT CONDITION AT DISCHARGE: Stable DISCHARGE DISPOSITION: Home with Self Mcfp with Self Care INFORMATION PROVIDED TO PATIENT: WOUND/SURGICAL SITE CARE: None DIET: Resume your pre-hospital diet ACTIVITY: Resume pre-hospital activity ALLERGIES Allergen Reactions Ketorolac Hives Prednisone Other: See Comments Tramadol Anaphylaxis DISCHARGE MEDICATION: Medication List START taking these medications doxycycline hyclate 100 mg capsule Commonly known as: VIBRAMYCIN Take 1 capsule by mouth two times a day for 5 days. Replaces: doxycycline 100 mg tablet CONTINUE taking these medications acetaminophen 500 mg tablet Commonly known as: TYLENOL AJOVY AUTOINJECTOR 225 mg/1.5 mL auto-injector Generic drug: fremanezumab-vfrm albuterol HFA 90 mcg/actuation inhaler Commonly known as: PROVENTIL HFA, VENTOLIN HFA amitriptyline 50 mg tablet Commonly known as: ELAVIL ATORVASTATIN PO etodolac 500 mg 24 hr tablet Commonly known as: LODINE-XL * fluticasone 50 mcg/actuation nasal spray Commonly known as: FLONASE * FLOVENT HFA 110 mcg/actuation inhaler Generic drug: fluticasone furosemide 40 mg tablet Commonly known as: LASIX JANUVIA PO lidocaine 4 % patch Commonly known as: SALONPAS loratadine 10 mg tablet Commonly known as: CLARITIN montelukast 10 mg tablet Commonly known as: SINGULAIR omeprazole 20 mg capsule Commonly known as: PriLOSEC * This list has 2 medication(s) that are the same as other medications prescribed for you. Read thedirections carefully, and ask your doctor or other care provider to review them with you. STOP taking these medications doxycycline 100 mg tablet Commonly known as: vibra-tabs Replaced by: doxycycline hyclate 100 mg capsule ASK your doctor about these medications citalopram 20 mg tablet Commonly known as: CeleXA JARDIANCE 25 mg tablet Generic drug: empagliflozin ondansetron 8 mg tablet Commonly known as: ZOFRAN Take 1 tablet by mouth every 8 hours as needed for nausea/vomiting (take 30 minutes prior to narcotic pain medication). [employer] ULTRA TEST test strip Generic drug: blood sugar diagnostic OZEMPIC 1 mg/dose (4 mg/3 mL) pen Generic drug: semaglutide potassium chloride ER 20 mEq tablet Commonly known as: KLOR-CON prazosin 5 mg Cap Commonly known as: MINIPRESS rizatriptan 5 mg tablet Commonly known as: MAXALT spironolactone 50 mg tablet Commonly known as: ALDACTONE SUMAtriptan 100 mg tablet Commonly known as: IMITREX traZODone HCl 300 mg tablet Commonly known as: DESYREL triamcinolone acetonide 55 mcg nasal inhaler Commonly known as: NASACORT AQ VRAYLAR 4.5 mg capsule Generic drug: cariprazine Where to Get Your Medications These medications were sent to e- [id number] [place] [address] [facility] - [phone] [place] [address] [facility] [id number] doxycycline hyclate 100 mg capsule FUTURE APPOINTMENTS: Follow Up with PCP: No primary care provider on file. Discharge Information Row Name ED to Hosp-Admission (Current) from 10/08/2025 in Ihupnilfc-0A-Cwkbb/Vascular Medical Follow-Up Appointment Specialty Primary Care Provider Name Dolores Physician Referral Additional Instructions please call to arrange primary care within [facility] The patient's risk for 30-day readmission is determined using the following contributing factors: Predictive Model Details 9% (Low) Factor Value Calculated 10/11/2025 05:26 -16% Admissions (90d) 0 [facility] READMISSION RISK Model -16% Admissions (365d) 0 11% diagnosis count 31 -11% Admissions (60d) 0 -9% ED visits (365d) 0 -8% RDW (Max) 13.2 7% Observations (365d) 1 -6% Hospital Unit -4A-ORTHO/VASCULAR -5% Malnutrition 0 5% Length of Stay (d) 0 I have performed the gcnd-zr-hoax and relevant services for a total of 45 minutes. SIGNATURE: Anuja Pichardo MD DATE: October 11, 2025 TIME: 2:49 PM documented in this encounter Medications at Time of Discharge MedicationSigDispense QuantityRefillsLast FilledStart DateEnd Date ondansetron (ZOFRAN) 8 mg tablet Take 1 tablet by mouth every 8 hours as needed for nausea/vomiting (take 30 minutes prior to narcotic pain medication). 20 tablet semaglutide (OZEMPIC) 1 mg/dose (4 mg/3 mL) pen Inject 1 mg subcutaneously one time a week.10/05/2024 empagliflozin (JARDIANCE) 25 mg tablet Take 25 mg by mouth daily with breakfast. spironolactone (ALDACTONE) 50 mg tablet Take 50 mg by mouth.02/11/2023 atorvastatin calcium (ATORVASTATIN ORAL) Take by mouth once daily. sitagliptin phosphate (JANUVIA ORAL) Take by mouth once daily. acetaminophen (TYLENOL) 500 mg tablet take 2 tablets by mouth every 8 hours if ttsdmc6001/09/2022 albuterol HFA (PROVENTIL HFA, VENTOLIN HFA) 90 mcg/actuation inhaler Inhale 2 Puffs as instructed every 6 hours as needed.03/24/2020 amitriptyline (ELAVIL) 50 mg tablet Take 50 mg by mouth daily at bedtime.10/16/2021 Lowfoot ULTRA TEST test strip twice daily. TEST TWICE DAILY10/16/2021 VRAYLAR 4.5 mg capsule take 1 take by mouth once daily10/17/2021 citalopram (CELEXA) 20 mg tablet Take 20 mg by mouth daily at bedtime.10/16/2021 FLOVENT HFA 110 mcg/actuation inhaler inhale 2 puffs by mouth and INTO THE LUNGS twice a day01/11/2022 fluticasone (FLONASE) 50 mcg/actuation nasal spray instill 1 spray into each nostril twice a day01/10/2022 furosemide (LASIX) 40 mg tablet take 1 tablet by mouth once daily if needed for ILIJVCOC19/16/2022 AJOVY AUTOINJECTOR 225 mg/1.5 mL auto-injector inject subcutaneously as vsevcvxi12/02/2022 loratadine (CLARITIN) 10 mg tablet Take 10 mg by mouth once daily.01/11/2022 lidocaine (SALONPAS) 4 % patch Apply 1 Patch as directed q 24 HR.06/24/2020 montelukast (SINGULAIR) 10 mg tablet Take 10 mg by mouth.04/13/2020 omeprazole (PRILOSEC) 20 mg capsule Take 20 mg by mouth once daily.10/16/2021 potassium chloride ER (K-DUR, KLOR-CON) 20 mEq tablet Take 20 mEq by mouth.01/10/2022 prazosin (MINIPRESS) 5 mg cap Take 5 mg by mouth once daily.10/16/2021 rizatriptan (MAXALT) 5 mg tablet take 1 tablet by mouth AT ONSET OF HEADACHE MAY TAKE A SECOND TAB... (REFER TO PRESCRIPTION NOTES).02/07/2022 SUMAtriptan (IMITREX) 100 mg tablet take 1 tablet by mouth if needed to ABORT MIGRAINE once daily 30 DAY SUPPLY 01/02/2022 triamcinolone acetonide (NASACORT AQ) 55 mcg nasal inhaler Use 2 Sprays in the nose.06/01/2020 doxycycline hyclate (VIBRAMYCIN) 100 mg capsule Take 1 capsule by mouth two times a day for 5 days. 10 capsule 5112/16/2024documented as of this encounter Progress Notes * Nu Rosa APRN.CNP - 10/11/2025 2:58 PM EST Images from the original note were not included. Progress Note PATIENT NAME: Glo Vigil Code Status: Not on file Highest Readmission Risk Score: 11 The 30 day readmissions risk score is derived from an internally validated risk model which evaluates patient level characteristics, utilization history, medication orders and lab results up until the day of discharge. Patients with a score of 39 or above are considered highest risk for readmission. Specific patient level drivers will be listed at the bottom of the summary. Admission Information Admission Information ADMIT DATE: 10/08/2025 DISCHARGE DATE: 10/11/25 MY DOCTORS AND MEDICAL TEAM: My Main Hospital Doctor: Anuja Pichardo MD Primary Care Provider: No primary care provider on file. My Medical Team Members: Treatment Team: Attending Provider: Anuja Pichardo MD Consulting: Manolo Chauhan DPM Nurse Practitioner: Nu Rosa APRN.CNP MY CONDITION AT DISCHARGE: Stable REASON I WAS IN THE HOSPITAL: foot pain SUMMARY OF WHAT HAPPENED WHILE I WAS IN THE HOSPITAL: You were seen in the hospital for evaluation of bilateral foot pain after recent bilateral distal toe amputation.Due to recent x-ray imaging of your foot that was obtained and was indicative of osteomyelitis you were started on IV antibiotics and admitted for further podiatry and infectious disease evaluation.Further MRI imaging obtained of your foot and toes showed postoperative changes of recent partial resection of the second toe but without any MRI findings of osteomyelitis or soft tissue abscess. No surgical intervention was needed and you are able to discharge on 5 more days of oral antibiotics.Please follow-up with orthopedics as scheduled for further outpatient management. You were cleared to discharge home in stable condition. OTHER PROBLEMS/DIAGNOSIS: Principal Problem: Osteomyelitis (HCC) Resolved Problems: * No resolved hospital problems. * OPERATIONS PERFORMED WHILE IN THE HOSPITAL: None IMPORTANT TEST/PROCEDURES: MRI foot/toes TEST RESULTS NOT AVAILABLE AT THIS TIME: No pending results Discharge Disposition Discharge Disposition: Home With Self Care Activity When You Leave the Hospital Resume pre-hospital activity As tolerated-weightbearing as tolerated Diet Instructions Resume your pre-hospital diet Call Your Doctor If You have a severe headache You have lightheadedness, fainting, or confusion You have persistent nausea/vomiting over 24 hours You have persistent or heavy bleeding You have swollen glands or cold and clammy skin Your temperature is greater than 101F Follow Up Appointments Follow-Up Appointment Appointments for Next 60 Days Date Time Provider Location Dept Phone 10/25/2025 9:30 AM EULALIA FUENTES [phone] 11/29/2025 9:30 AM EULALIA FUENTES [phone] With: Scheduled orthopedic follow-up When: In 2 weeks Patient/Parents to call for appointment?: Scheduled Hospital Follow Up Appointment - PODIATRY Hospital discharge wjiqgg-rn-njxym outpatient PVRs If this patient is at moderate or high risk for readmission, please identify and request the followup needed within 7 days: No Schedule follow up appointment within: less than 2 weeks Follow Up Reason: Hospital discharge cmzqqe-vu-shysi outpatient PVRs Hospital/ED Follow Up Appointment - ADULT/PEDS PRIMARY CARE hospital follow up If this patient is at moderate or high risk for readmission, please identify and request the followup needed within 7 days: No Schedule follow up appointment within: 1 week Follow Up Reason: hospital follow up [facility] Additional Provider to Provider Information: No notes on file Treatment Team: Attending Provider: Anuja Pichardo MD Consulting: Manolo Chauhan DPM Nurse Practitioner: GunNu ortiz APRN.CNP FINAL DIAGNOSIS: Active Hospital Problems Diagnosis POA Osteomyelitis (HCC) Yes Resolved Hospital Problems No resolved problems to display. Transitions of Care Critical Issues: NEW BASELINE FOR PATIENT: stable LABS AND PROCEDURES PENDING AT DISCHARGE: No pending results. FOLLOW-UP APPOINTMENTS ALREADY SCHEDULED WITH A [facility] PROVIDER: Future Appointments Date Time Provider Department Center 10/25/2025 9:30 AM Eulalia Fuentes DPM [facility] 11/29/2025 9:30 AM Eulalia Fuentes DPM [facility] Discharge Information Row Name ED to Hosp-Admission (Current) from 10/08/2025 in Tviphnrfs-6S-Mnhkl/Vascular Medical Follow-Up Appointment Specialty Primary Care Provider Name Dolores Physician Referral Additional Instructions please call to arrange primary care within [facility] ALLERGIES Allergen Reactions Ketorolac Hives Prednisone Other: See Comments Tramadol Anaphylaxis DISCHARGE MEDICATION: Medication List START taking these medications doxycycline hyclate 100 mg capsule Commonly known as: VIBRAMYCIN Take 1 capsule by mouth two times a day for 5 days. Replaces: doxycycline 100 mg tablet CONTINUE taking these medications acetaminophen 500 mg tablet Commonly known as: TYLENOL AJOVY AUTOINJECTOR 225 mg/1.5 mL auto-injector Generic drug: fremanezumab-vfrm albuterol HFA 90 mcg/actuation inhaler Commonly known as: PROVENTIL HFA, VENTOLIN HFA amitriptyline 50 mg tablet Commonly known as: ELAVIL ATORVASTATIN PO citalopram 20 mg tablet Commonly known as: CeleXA * fluticasone 50 mcg/actuation nasal spray Commonly known as: FLONASE * FLOVENT HFA 110 mcg/actuation inhaler Generic drug: fluticasone furosemide 40 mg tablet Commonly known as: LASIX JANUVIA PO JARDIANCE 25 mg tablet Generic drug: empagliflozin lidocaine 4 % patch Commonly known as: SALONPAS loratadine 10 mg tablet Commonly known as: CLARITIN montelukast 10 mg tablet Commonly known as: SINGULAIR omeprazole 20 mg capsule Commonly known as: PriLOSEC ondansetron 8 mg tablet Commonly known as: ZOFRAN Take 1 tablet by mouth every 8 hours as needed for nausea/vomiting (take 30 minutes prior to narcotic pain medication). Lowfoot ULTRA TEST test strip Generic drug: blood sugar diagnostic OZEMPIC 1 mg/dose (4 mg/3 mL) pen Generic drug: semaglutide potassium chloride ER 20 mEq tablet Commonly known as: KLOR-CON prazosin 5 mg Cap Commonly known as: MINIPRESS rizatriptan 5 mg tablet Commonly known as: MAXALT spironolactone 50 mg tablet Commonly known as: ALDACTONE SUMAtriptan 100 mg tablet Commonly known as: IMITREX triamcinolone acetonide 55 mcg nasal inhaler Commonly known as: NASACORT AQ VRAYLAR 4.5 mg capsule Generic drug: cariprazine * This list has 2 medication(s) that are the same as other medications prescribed for you. Read thedirections carefully, and ask your doctor or other care provider to review them with you. STOP taking these medications doxycycline 100 mg tablet Commonly known as: vibra-tabs Replaced by: doxycycline hyclate 100 mg capsule etodolac 500 mg 24 hr tablet Commonly known as: LODINE-XL traZODone HCl 300 mg tablet Commonly known as: DESYREL Where to Get Your Medications These medications were sent to e- [id number] - [place] [address] [facility] - [phone] [place] [id number] [place] [id number] doxycycline hyclate 100 mg capsule Discharge Physical Exam: VITAL SIGNS: BP 119/74 Pulse 85 Temp 36.8 ??C (98.2 ??F) (Oral) Resp 16 Ht 165.1 cm (5' 5 ) Wt 93.9 kg (207 lb) SpO2 99% BMI 34.45 kg/m?? GENERAL: Alert, no distress, cooperative LUNGS: Lungs clear to auscultation CARDIAC: Normal S1 and S2 ABDOMEN: Abdomen soft, non-tender, BS normal EXTREMITIES: Extremities normal, no deformities, edema NEURO: Gait normal.A&Ox3 Additional Information Additional Health Information I Need to Know After I Leave the Hospital How to Protect Yourself & Others from COVID-19 In addition to basic health and hygiene practices, like handwashing, CDC recommends some preventionactions at all COVID-19 hospital admission levels, which include: Staying Up to Date with COVID-19 Vaccines COVID-19 vaccines help your body develop protection from the virus that causes COVID-19. Although vaccinated people sometimes get infected with the virus that causes COVID-19, staying up to date on COVID-19 vaccines significantly lowers the risk of getting very sick, being hospitalized, or dying from COVID-19. CDC recommends that everyone stay up to date on their COVID-19 vaccines, especially people with weakened immune systems. Improving Ventilation and Spending Time Outdoors Improving ventilation (moving air into, out of, or within a room) and filtration (trapping particles on a filter to remove them from the air) can help prevent virus particles from accumulating in indoor air. Improving ventilation and filtration can help protect you from getting infected with and spreading the virus that causes COVID-19. Spending time outside when possible instead of inside can also help: Viral particles spread between people more readily indoors than outdoors. Getting Tested for COVID-19 Get tested if you have COVID-19 symptoms. A viral test tells you if you are infected with the virusthat causes COVID-19. If you have COVID-19 symptoms, you should get tested for COVID-19 immediately. There are some additional prevention actions that may be done at any level, but CDC especially recommends considering in certain circumstances or at medium or high COVID-19 hospital admission levels: Wearing Masks or Respirators Masks are made to contain droplets and particles that you breathe, cough, or sneeze out. A variety of masks are available. Some masks provide a higher level of protection than others. Respirators (for example, N95) are made to protect you by fitting closely on the face to filter outparticles, including the virus that causes COVID-19. They can also block droplets and particles youbreathe, cough, or sneeze out so you do not spread them to others. Respirators (for example, N95) provide higher protection than masks. Increasing Space and Distance Small particles that people breathe out can contain virus particles. The closer you are to a greater number of people, the more likely you are to be exposed to the virus that causes COVID-19. To avoid this possible exposure, you may want to avoid crowded areas, or keep distance between yourself andothers. These actions also protect people who are at high risk for getting very sick from COVID-19 in settings where there are multiple risks for exposure. Refer to the CDC for full guidance: https://www.cdc.gov/respiratory-viruses/index.html The patient's risk for 30-day readmission is determined using the following contributing factors: Predictive Model Details 9% (Low) Factor Value Calculated 10/11/2025 05:26 -16% Admissions (90d) 0 [facility] READMISSION RISK Model -16% Admissions (365d) 0 11% diagnosis count 31 -11% Admissions (60d) 0 -9% ED visits (365d) 0 -8% RDW (Max) 13.2 7% Observations (365d) 1 -6% Hospital Unit HL-4A-ORTHO/VASCULAR -5% Malnutrition 0 5% Length of Stay (d) 0 Plan of care discussed with Provider, RN, Patient I have performed the znpx-gt-hjkz and relevant services for a total of >30 minutes. SIGNATURE: Nu Rosa APRN.CNP DATE: October 11, 2025 TIME: 2:58 PM * Geraldine Hill RN - 10/11/2025 2:14 PM EST CARE MANAGEMENT DISCHARGE NOTE SERVICE DATE: October 11, 2025 SERVICE TIME: 1430pm Admission Date: 10/08/2025 LOS: 0 days Discharge Arrangement Discharge Arrangement: Home with Self Care Caregiver Assessment Caregiver is ready, willing and able to meet the patient's needs as recommended by the inter-professional team: No Caregiver needed Transportation Arrangements Transportation Arrangements: Car Discharge Information Row Name ED to Hosp-Admission (Current) from 10/08/2025 in [id number] Medical Follow-Up Appointment Specialty Primary Care Provider Name Medline Physician Referral Additional Instructions please call to arrange primary care within [facility] Patient cleared for discharge home, no skilled needs. SIGNATURE: Geraldine Hill RN PATIENT NAME: Glo Vigil DATE: October 11, 2025 TIME: 2:14 PM * Althea Aguilar MD - 10/11/2025 11:28 AM EST INFECTIOUS DISEASE PROGRESS NOTE ID service following patient for recent osteomyelitis Interval History/Subjective: Afebrile Wants to go home MR without osteomyelitis ROS: Denies cough, chest pain, shortness of breath, nasal congestion, headache, sore throat, abdominal pain, diarrhea Current Facility-Administered Medications Medication Dose Route Frequency NaCl 0.9% iv flush bag 20 mL INTRAVENOUS PRN heparin 5,000 Units injection 5,000 Units SUBCUTANEOUS q 12 H piperacillin-tazobactam iv piggyback 3.375 g in dextrose (iso-osmotic) 50 mL (ZOSYN) 3.375 g INTRAVENOUS q 6 H oxyCODONE IR 5 mg tab(s) (ROXICODONE) 5 mg ORAL q 6 H PRN acetaminophen 650 mg tab(s) (TYLENOL) 650 mg ORAL q 4 H PRN DAPTOmycin 700 mg iv piggyback in NaCl 0.9% 100 mL (CUBICIN) 700 mg INTRAVENOUS q 24 HR SITagliptin phosphate 100 mg tab(s) (JANUVIA) 100 mg ORAL DAILY Objective: Physical Exam: Patient Vitals for the past 24 hrs: BP Temp Temp src Pulse Resp SpO2 10/11/25 0710 119/74 36.8 ??C (98.2 ??F) Oral 85 16 99 % 10/11/25 0308 119/71 37 ??C (98.6 ??F) Oral 83 16 100 % 10/10/25 2315 123/69 37.1 ??C (98.8 ??F) Oral 88 17 100 % 10/10/25 1939 137/75 36.8 ??C (98.2 ??F) Oral 70 17 100 % 10/10/25 1551 137/79 37 ??C (98.6 ??F) -- 79 18 99 % General: Awake, alert, no distress Cardiovascular: Regular rate and rhythm, no murmur Lungs: Clear to auscultation, normal respiratory effort Abdomen: Soft, nontender, nondistended Extremities: No rash Labs: WBC Date Value Ref Range Status 10/09/2025 8.54 3.70 - 11.00 k/uL Final Creatinine Date Value Ref Range Status 10/11/2025 0.55 (L) 0.58 - 0.96 mg/dL Final 10/09/2025 0.53 (L) 0.58 - 0.96 mg/dL Final 10/08/2025 0.51 (L) 0.58 - 0.96 mg/dL Final Micro: None Imaging reviewed: 10/10 MR right foot: Postoperative changes of recent partial resection of the second toe distal phalanx without MRI findings to suggest osteomyelitis or soft tissue abscess. 10/10 MR left foot: Postoperative changes of recent partial second toe resection without MRI findings to suggest osteomyelitis or soft tissue abscess. 10/06 XR feet [facility]: Either previous amputation or chronic erosion of [...] the nail bed. No radiopaque foreign body. Assessment: Soft tissue infection without residual osteomyelitis bilateral second toes. Had distal phalanx amputations 09/09 Type 2 DM Plan: Stop daptomycin and zosyn Start doxycycline 100mg PO BID for 5d Okay for d/c from my standpoint Will sign off. Please don't hesitate to call with any questions or concerns. Althea Aguilar MD [facility] Contact#: [phone] * Manolo Chauhan DPM - 10/11/2025 7:50 AM EST ASSESSMENT: Previous partial amputation 2nd digit B/L PAD DM type 2 PLAN: A full foot evaluation and examination was performed on the patient.await mri read. Clincallytoes look ok today w/out sign of infection. Fine to leave sites open to air. Ok for full wb. Abx per ID. Will continue to follow. I am ok with discharge at any point and she can follow up with her surgeon. She already has f/u arranged in the upcoming weeks SUBJECTIVE: (Interval HPI) Patient seen for continued care of b/lf eet. Doing well. Eager for discharge. Mri done. No read yet. . No other new pedal complaints today. PMH:SocHX: FamHX:MEDS: Reviewed in the chart ALLERGIES Allergen Reactions Ketorolac Hives Prednisone Other: See Comments Tramadol Anaphylaxis PERTINENT ROS: Positive appetite, numbness and tingling in the feet, swelling in the legs, difficulty walking, remainder of 14 system review negative today. OBJECTIVE: Blood pressure 119/74, pulse 85, temperature 36.8 ??C (98.2 ??F), temperature source Oral, resp. rate 16, height 165.1 cm (5' 5 ), weight 93.9 kg (207 lb), SpO2 99%. Neurovascular and musculoskeletal exam: is unchanged from initial consult. Dermatologic exam: Previous incisional sites appear well coapted. No signs of dehiscence. Color ok today. No edema. . Mild hyperpigmentation. Reviewed most recent diagnostic findings in [facility] Hemoglobin A1C (%) Date Value 10/09/2025 7.2 CBC: No results for input(s): WBC , RBC , HB , HCT , PLT , MCV , MCH , MPV , RDW in the last 24 hours. Coags: No results for input(s): PT , INR , APTT in the last 24 hours. BMP: No results for input(s): NA , K , CHLOR , CO2 , BUN , CREAT , GLUC in the last 24 hours. Manolo Chauhan DPM Podiatry [facility] [phone] 10/11/2025 7:51 AM * Anuja Pichardo MD - 10/10/2025 3:43 PM EST INPATIENT PROGRESS NOTE SERVICE DATE: 10/10/2025 SERVICE TIME: 3 pm INTERVAL HPI: no new complains Current Facility-Administered Medications Medication Dose Route Frequency NaCl 0.9% iv flush bag 20 mL INTRAVENOUS PRN heparin 5,000 Units injection 5,000 Units SUBCUTANEOUS q 12 H piperacillin-tazobactam iv piggyback 3.375 g in dextrose (iso-osmotic) 50 mL (ZOSYN) 3.375 g INTRAVENOUS q 6 H oxyCODONE IR 5 mg tab(s) (ROXICODONE) 5 mg ORAL q 6 H PRN acetaminophen 650 mg tab(s) (TYLENOL) 650 mg ORAL q 4 H PRN DAPTOmycin 700 mg iv piggyback in NaCl 0.9% 100 mL (CUBICIN) 700 mg INTRAVENOUS q 24 HR SITagliptin phosphate 100 mg tab(s) (JANUVIA) 100 mg ORAL DAILY Objective PHYSICAL EXAM: BP 124/92 Pulse 87 Temp (Src) 98.2 (Oral) Resp 15 Ht 5' 5 (1.65m) Wt 207 lb (93.9kg) SpO2 100% BMI 34.45 kg/(m^2). O2 Therapy: Room Air Physical Exam Performed GENERAL: Obese, Alert, No Distress LUNGS: CTA CARDIAC: Rate: normal, S1: normal intensity, S2: normal intensity ABDOMEN: Soft, nontender and obese EXTREMITIES: mild tenderness and swelling 2 nd toes b/l DATA: Diagnostic tests reviewed for today's visit: Most recent labs and imaging results. Assessment & Plan Osteomyelitis (HCC) Present on Admission: Yes DM type 2 Plan IV antibiotics per ID MRI R foot Vascular arterial studies Monitor BG Restart januvia DVT prophylaxis Medication and Non-Pharmacologic VTE Prophylaxis/Anticoagulants Anticoagulant & Antiplatelet Medications (From admission, onward) Start Dose Route Frequency Last Action Ordered Stop 10/08/25 1630 heparin 5,000 Units injection 5,000 Units SQ EVERY 12 HOURS Given, 10/10 0749 10/08/25 1608 -- VTE Prophylaxis: VTE prophylaxis appropriate SIGNATURE: Anuja Pichardo MD PATIENT NAME: Glo Vigil DATE: October 10, 2025 TIME: 3:44 PM * Good Duran DPM - 10/10/2025 12:12 PM EST Images from the original note were not included. PODIATRIC SURGERY ASSESSMENT: Previous partial amputation 2nd digit B/L PAD DM type 2 PLAN: - MRI already ordered - PVRs added long smoking history and dysvascular changes to amputation sites. - Wound care: no open wound currently. - Weightbearing Status: weightbearing as tolerated - DVT ppx: can continue - Abx: Per ID - Surgical plan: Pending MRI and PVRs HPI: Patient resting in bed. Awaiting PVRs and MRIs. PAST MEDICAL HISTORY Diagnosis Date Diabetes mellitus (HCC) GERD (gastroesophageal reflux disease) Mixed hyperlipidemia Sleep apnea PAST SURGICAL HISTORY Procedure Laterality Date LIGATE FALLOPIAN TUBE PAST SURGICAL HISTORY OF Foot sx x2 TOTAL ABDOM HYSTERECTOMY Current Facility-Administered Medications Medication Dose Route Frequency NaCl 0.9% iv flush bag 20 mL INTRAVENOUS PRN heparin 5,000 Units injection 5,000 Units SUBCUTANEOUS q 12 H piperacillin-tazobactam iv piggyback 3.375 g in dextrose (iso-osmotic) 50 mL (ZOSYN) 3.375 g INTRAVENOUS q 6 H oxyCODONE IR 5 mg tab(s) (ROXICODONE) 5 mg ORAL q 6 H PRN acetaminophen 650 mg tab(s) (TYLENOL) 650 mg ORAL q 4 H PRN DAPTOmycin 700 mg iv piggyback in NaCl 0.9% 100 mL (CUBICIN) 700 mg INTRAVENOUS q 24 HR SITagliptin phosphate 100 mg tab(s) (JANUVIA) 100 mg ORAL DAILY ALLERGIES Allergen Reactions Ketorolac Hives Prednisone Other: See Comments Tramadol Anaphylaxis No family history on file. SOCIAL HISTORY[1] REVIEW OF SYSTEMS: All other systems reviewed. No pertinent positive findings other than noted in HPI. OBJECTIVE: BP 124/92 Pulse 87 Temp 36.8 ??C (98.2 ??F) (Oral) Resp 15 Ht 165.1 cm (5' 5 ) Wt 93.9 kg(207 lb) SpO2 100% BMI 34.45 kg/m?? Alert and oriented to person, place, and time. No acute distress. Normal mood and affect Vasc: DP and PT pulses are nonpalpable. CFT brisk to the toes. Skin temperature is warm to warm from proximal to distal. Hair growth is absent . Mild edema to the digits. Neuro: Light touch intact in the foot. Derm: Previous incisional sites appear well coapted. No signs of dehiscence. There is a dusky color to the distal amputations site. There is no drainage noted to the area. MSK: Partial digital amputations to the 2nd Digit B/L Pain with palpation of the distal aspect of the amputation site. No fluctuance noted. LABS: Recent Labs 10/09/25 0425 10/08/25 0922 WBC 8.54 10.38 HB 13.3 13.4 HCT 40.1 40.4 PLT 355 367 NA 138 139 K 4.0 3.6* CHLOR 103 105 CO2 21* 21* CREAT 0.53* 0.51* BUN 6* 3* GLUC 98 96 TPROT -- 7.0 ALB -- 3.9 CA 9.4 9.0 ALKPHOS -- 71 TBILI -- 0.3 AST -- 15 ALT -- 13 CRP Date Value Ref Range Status 10/08/2025 1.1 (H) <0.9 mg/dL Final No results found for: WSR No results found for: INR No results found for: APTT Hemoglobin A1C (%) Date Value 10/09/2025 7.2 08/26/2025 8.1 03/20/2024 8.2 MICROBIOLOGY: Positive Micro-30 Days No results found for the last 720 hours. IMAGING: Last XR Foot - Impression Only XR FOOT GENERAL 3V AP/LAT/OBL LEFT Exam End: 11/01/2023 11:08 AM (Final result) Impression: IMPRESSION: No acute osseous abnormality. Minimal degenerative changes, as described. Mild pes planus. ... Last XR Ankle - Impression Only No resulted procedures found. Last MRI Foot - Impression Only No resulted procedures found. Last MRI Ankle - Impression Only MRI ANKLE WO IVCON LEFT Exam End: 08/08/2021 9:27 AM (Final result) Good Duran DPM 10/10/2025 12:12 PM [facility] [phone] [1] Social History Tobacco Use Smoking status: Every Day Current packs/day: 1.75 Average packs/day: 3.7 packs/day for 25.9 years (96.0 ttl pk-yrs) Types: Cigarettes Start date: 1999 Smokeless tobacco: Never Tobacco comments: Substance Use Topics Alcohol use: Not Currently Drug use: Not Currently * Anuja Pichardo MD - 10/09/2025 1:00 PM EST INPATIENT PROGRESS NOTE SERVICE DATE: 10/09/2025 SERVICE TIME: 1 pm INTERVAL HPI: feeling better , denies pain Current Facility-Administered Medications Medication Dose Route Frequency NaCl 0.9% iv flush bag 20 mL INTRAVENOUS PRN heparin 5,000 Units injection 5,000 Units SUBCUTANEOUS q 12 H piperacillin-tazobactam iv piggyback 3.375 g in dextrose (iso-osmotic) 50 mL (ZOSYN) 3.375 g INTRAVENOUS q 6 H oxyCODONE IR 5 mg tab(s) (ROXICODONE) 5 mg ORAL q 6 H PRN acetaminophen 650 mg tab(s) (TYLENOL) 650 mg ORAL q 4 H PRN iv contrast (radiology procedure) INTRAVENOUS DIRECTED PRN iv contrast (radiology procedure) INTRAVENOUS DIRECTED PRN DAPTOmycin 700 mg iv piggyback in NaCl 0.9% 100 mL (CUBICIN) 700 mg INTRAVENOUS q 24 HR SITagliptin phosphate 100 mg tab(s) (JANUVIA) 100 mg ORAL DAILY Objective PHYSICAL EXAM: BP 119/73 Pulse 67 Temp (Src) 98.8 (Oral) Resp 17 Ht 5' 5 (1.65m) Wt 207 lb (93.9kg) SpO2 98% BMI 34.45 kg/(m^2). O2 Therapy: Room Air Physical Exam Performed GENERAL: Obese, Alert, No Distress LUNGS: CTA CARDIAC: Normal S1 and S2; no rubs, murmurs, or gallops ABDOMEN: Abdomen soft, non-tender, BS normal, No masses or organomegaly EXTREMITIES: 2 nd toes b/l mild swelling and tenderness, the rest of the feet appear normal DATA: Diagnostic tests reviewed for today's visit: Most recent labs and imaging results. Assessment & Plan Osteomyelitis (HCC) Present on Admission: Yes DM type 2 Plan IV antibiotics per ID MRI R foot Vascular arterial studies Monitor BG Restart januvia DVT prophylaxis Medication and Non-Pharmacologic VTE Prophylaxis/Anticoagulants Anticoagulant & Antiplatelet Medications (From admission, onward) Start Dose Route Frequency Last Action Ordered Stop 10/08/25 1630 heparin 5,000 Units injection 5,000 Units SQ EVERY 12 HOURS Given, 10/09 92010/08/25 1608 -- VTE Prophylaxis: VTE prophylaxis appropriate SIGNATURE: Anuja Pichardo MD PATIENT NAME: Glo Vigil DATE: October 09, 2025 TIME: 2:36 PM * Shawna Garcia RN - 10/08/2025 2:26 PM EST CARE MANAGEMENT: ASSESSMENT AND DISCHARGE PLAN SERVICE DATE: October 08, 2025 SERVICE TIME: 2:27 PM PCP: No primary care provider on file. Primary Contact: Extended Emergency Contact Information Primary Emergency Contact: carlos vigil Mobile Relation: Daughter Secondary Emergency Contact: MARTINEZ VIGIL Mobile Relation: Mother Admission Status: Emergency [facility] Discharge Planning requested by: Per Department Practice Potential Transition Plans Home Care, Home OT/PT, Home Care Pharmacy Advance Directives Current Advance Directive: None Data Entry Technician Attempted to Assist with AD Completion: Yes Action: Education Provided Current Living Arrangements and Support Lives with: Children Type of Residence: Private Residence (Apartment or Condo) (Apartment) Does the patient have to climb stairs at home?: No Support: Children, Family members How do you manage to accomplish the following: Independent: Ambulation, Bathe/Shower, Dress, Meals/Meal Prep, Going to the bathroom, Medication Management, Transportation to appointments/community Current Services/Equipment Current Post-Acute Service(s): None Discharge Planning Patient Goal(s): General wellness [place] of [place] Explained: [place] of [place] Given: Yes Level of Care Discussed: Home Care Are you interested in bedside delivery of your medications? No Discharge Planning Participant(s): Patient Caregiver Assessment: Caregiver is ready, willing and able to meet the patient's needs as recommended by the inter-professional team: No Caregiver needed Transport at Discharge: Transportation Arrangements: Car Needs Prior to Discharge: Needs Prior to Discharge: Discharge Prescriptions Post-Acute Discharge Plan: NCM spoke with patient at bedside. Patient admitted with acute osteomyelitis of right foot. IV Vancomycin. Medical work up in progress. Patient lives independently in an apartment with her daughter. Patient does not use any DME at baseline. Patient drove herself to the hospital and plans to drive herself home. Patient advises that she is not established with a PCP. Patient is agreeable to a referral to [facility] for PCP establishment at discharge. CM to continue to follow. SIGNATURE: Shawna Garcia RN PATIENT NAME: Glo Vigil DATE: October 08, 2025 TIME: 2:27 PM documented in this encounter H&P Notes * Anuja Pichardo MD - 10/08/2025 4:19 PM EST HISTORY AND PHYSICAL EXAMINATION SERVICE DATE: 10/08/2025 SERVICE TIME: 4 pm PRIMARY CARE PHYSICIAN: No primary care provider on file. Subjective CHIEF COMPLAINT: feet pain HPI: This is a 40 year old female who presents with swelling and pain 2 nd toes b/l , s/p nail removal surgery 09/09/25, went to ER few days ago that showed possible osteomyelitis, left AMA , paingot worse , came to ER today The following problems are present on admission at this time: Chronic pulmonary disease Diabetes mellitus Obesity Continue current outpatient treatment plan and current medications for these conditions, except where otherwise noted. FUNCTIONAL STATUS: Independent PAST MEDICAL HISTORY Diagnosis Date Diabetes mellitus (HCC) GERD (gastroesophageal reflux disease) Mixed hyperlipidemia Sleep apnea PAST SURGICAL HISTORY Procedure Laterality Date LIGATE FALLOPIAN TUBE PAST SURGICAL HISTORY OF Foot sx x2 TOTAL ABDOM HYSTERECTOMY No family history on file. SOCIAL HISTORY[1] Prior to Admission Medications Prescriptions Last Dose Informant Patient Reported? Taking? AJOVY AUTOINJECTOR 225 mg/1.5 mL auto-injector Yes No Sig: inject subcutaneously as directed FLOVENT HFA 110 mcg/actuation inhaler Yes No Sig: inhale 2 puffs by mouth and INTO THE LUNGS twice a day ONETOUCH ULTRA TEST test strip Yes No Sig: twice daily. TEST TWICE DAILY SUMAtriptan (IMITREX) 100 mg tablet Yes No Sig: take 1 tablet by mouth if needed to ABORT MIGRAINE once daily 30 DAY SUPPLY VRAYLAR 4.5 mg capsule Yes No Sig: take 1 take by mouth once daily acetaminophen (TYLENOL) 500 mg tablet Yes No Sig: take 2 tablets by mouth every 8 hours if needed albuterol HFA (PROVENTIL HFA, VENTOLIN HFA) 90 mcg/actuation inhaler Yes No Sig: Inhale 2 Puffs as instructed every 6 hours as needed. amitriptyline (ELAVIL) 50 mg tablet Yes No Sig: Take 50 mg by mouth daily at bedtime. atorvastatin calcium (ATORVASTATIN ORAL) Yes No Sig: Take by mouth once daily. citalopram (CELEXA) 20 mg tablet Yes No Sig: Take 20 mg by mouth daily at bedtime. doxycycline (VIBRA-TABS) 100 mg tablet Yes No Sig: take 1 tablet by mouth twice a day for 10 days Patient not taking: Reported on 08/26/2025 empagliflozin (JARDIANCE) 25 mg tablet Yes No Sig: Take 25 mg by mouth daily with breakfast. etodolac (LODINE-XL) 500 mg 24 hr tablet Yes No Sig: take 1 tablet by mouth once daily NEEDED FOR PAIN with food fluticasone (FLONASE) 50 mcg/actuation nasal spray Yes No Sig: instill 1 spray into each nostril twice a day furosemide (LASIX) 40 mg tablet Yes No Sig: take 1 tablet by mouth once daily if needed for SWELLING lidocaine (SALONPAS) 4 % patch Yes No Sig: Apply 1 Patch as directed q 24 HR. loratadine (CLARITIN) 10 mg tablet Yes No Sig: Take 10 mg by mouth once daily. montelukast (SINGULAIR) 10 mg tablet Yes No Sig: Take 10 mg by mouth. omeprazole (PRILOSEC) 20 mg capsule Yes No Sig: Take 20 mg by mouth once daily. ondansetron (ZOFRAN) 8 mg tablet No No Sig: Take 1 tablet by mouth every 8 hours as needed for nausea/vomiting (take 30 minutes prior to narcotic pain medication). potassium chloride ER (K-DUR, KLOR-CON) 20 mEq tablet Yes No Sig: Take 20 mEq by mouth. prazosin (MINIPRESS) 5 mg cap Yes No Sig: Take 5 mg by mouth once daily. rizatriptan (MAXALT) 5 mg tablet Yes No Sig: take 1 tablet by mouth AT ONSET OF HEADACHE MAY TAKE A SECOND TAB... (REFER TO PRESCRIPTION NOTES). semaglutide (OZEMPIC) 1 mg/dose (4 mg/3 mL) pen Yes No Sig: Inject 1 mg subcutaneously one time a week. sitagliptin phosphate (JANUVIA ORAL) Yes No Sig: Take by mouth once daily. spironolactone (ALDACTONE) 50 mg tablet Yes No Sig: Take 50 mg by mouth. traZODone HCl 300 mg tablet Yes No Sig: Take 300 mg by mouth once daily. Patient not taking: No sig reported triamcinolone acetonide (NASACORT AQ) 55 mcg nasal inhaler Yes No Sig: Use 2 Sprays in the nose. Facility-Administered Medications: None ALLERGIES Allergen Reactions Ketorolac Hives Prednisone Other: See Comments Tramadol Other: See Comments COMPLETE REVIEW OF SYSTEMS: Pain and swelling 2 nd toes b/l , worse with ambulation No fever, chills or Shortness of Breath Denies chest pain , nausea, vomiting Objective PHYSICAL EXAM: Physical Exam Performed: GENERAL: Obese, Alert, No Distress SKIN: no rash HEAD/SINUSES: No significant findings EYES: PERRLA, EOMI NECK: No jugulovenous distention, No carotid bruits, Supple BACK: No CVAT. LUNGS: Lungs clear to auscultation, Good diaphragmatic excursion CARDIAC: Normal S1 and S2; no rubs, murmurs, or gallops ABDOMEN: Abdomen soft, non-tender, BS normal, No masses or organomegaly EXTREMITIES: b/l 2 nd toes swelling and tenderness R > L, the remaing feet no swelling or tenderness NEURO: Grossly normal cognition, motor function, and cranial nerves III-XII PULSES: 2+ radial, 2+ posterial tibial, 2+ popliteal, 2+ dorsalis pedis, 2+ carotid BP 137/74 Pulse 63 Temp (Src) 98.6 (Oral) Resp 17 Ht 5' 5 (1.65m) Wt 207 lb (93.9kg) SpO2 100% BMI 34.45 kg/(m^2). O2 Therapy: Room Air DATA: Diagnostic tests reviewed for today's visit: Most recent labs and imaging results. Assessment & Plan Osteomyelitis (HCC) Present on Admission: Yes DM type 2 Plan IV antibiotics MRI R foot ID consult Monitor BG DVT prophylaxis Exogenous Class 1 Obesity Medication and Non-Pharmacologic VTE Prophylaxis/Anticoagulants Anticoagulant & Antiplatelet Medications (From admission, onward) Start Dose Route Frequency Last Action Ordered Stop 10/08/25 1630 heparin 5,000 Units injection 5,000 Units SQ EVERY 12 HOURS Ordered 10/08/25 1608 -- VTE Prophylaxis: VTE prophylaxis appropriate SIGNATURE: Anuja Pichardo MD PATIENT NAME: Glo Vigil DATE: October 08, 2025 TIME: 4:19 PM [1] Social History Tobacco Use Smoking status: Every Day Current packs/day: 1.75 Average packs/day: 3.7 packs/day for 25.9 years (96.0 ttl pk-yrs) Types: Cigarettes Start date: 1999 Smokeless tobacco: Never Tobacco comments: Substance Use Topics Alcohol use: Not Currently Drug use: Not Currently documented in this encounter Consult Notes * Good Duran DPM - 10/09/2025 11:30 AM ESTAssociated Order(s): PHYSICIAN CONSULT (AK,AV,EU,FV,HL,IR,DANISHA,MH,MM,MO,MR,SP,UN) Images from the original note were not included. PODIATRIC SURGERY ASSESSMENT: Previous partial amputation 2nd digit B/L PAD DM type 2 PLAN: - MRI already ordered - PVRs added long smoking history and dysvascular changes to amputation sites. - Wound care: no open wound currently. - Weightbearing Status: weightbearing as tolerated - DVT ppx: can continue - Abx: Per ID - Surgical plan: Pending MRI and PVRs HPI: Patient is a 40 year old female who was admitted for B/L amputation site pain of the 2nd digit. Podiatric consultation was requested for this issue. Patient underwent B//L partial 2nd digit amputations on 09/09/25, due to concern of OM. Patient had pretty uneventful recovery until increased pain and discoloration to the amputation sites. CRP mildly elevated. Long smoking history previous 6 pack aday since decreased. Denies nausea, vomiting, fever, chills, chest pain, shortness of breath, and diarrhea. PAST MEDICAL HISTORY Diagnosis Date Diabetes mellitus (HCC) GERD (gastroesophageal reflux disease) Mixed hyperlipidemia Sleep apnea PAST SURGICAL HISTORY Procedure Laterality Date LIGATE FALLOPIAN TUBE PAST SURGICAL HISTORY OF Foot sx x2 TOTAL ABDOM HYSTERECTOMY Current Facility-Administered Medications Medication Dose Route Frequency NaCl 0.9% iv flush bag 20 mL INTRAVENOUS PRN heparin 5,000 Units injection 5,000 Units SUBCUTANEOUS q 12 H piperacillin-tazobactam iv piggyback 3.375 g in dextrose (iso-osmotic) 50 mL (ZOSYN) 3.375 g INTRAVENOUS q 6 H oxyCODONE IR 5 mg tab(s) (ROXICODONE) 5 mg ORAL q 6 H PRN acetaminophen 650 mg tab(s) (TYLENOL) 650 mg ORAL q 4 H PRN iv contrast (radiology procedure) INTRAVENOUS DIRECTED PRN iv contrast (radiology procedure) INTRAVENOUS DIRECTED PRN DAPTOmycin 700 mg iv piggyback in NaCl 0.9% 100 mL (CUBICIN) 700 mg INTRAVENOUS q 24 HR ALLERGIES Allergen Reactions Ketorolac Hives Prednisone Other: See Comments Tramadol Anaphylaxis No family history on file. SOCIAL HISTORY[1] REVIEW OF SYSTEMS: All other systems reviewed. No pertinent positive findings other than noted in HPI. OBJECTIVE: BP 119/73 Pulse 67 Temp 37.1 ??C (98.8 ??F) (Oral) Resp 17 Ht 165.1 cm (5' 5 ) Wt 93.9 kg(207 lb) SpO2 98% BMI 34.45 kg/m?? Alert and oriented to person, place, and time. No acute distress. Normal mood and affect Vasc: DP and PT pulses are nonpalpable. CFT brisk to the toes. Skin temperature is warm to warm from proximal to distal. Hair growth is absent . Mild edema to the digits. Neuro: Light touch intact in the foot. Derm: Previous incisional sites appear well coapted. No signs of dehiscence. There is a dusky color to the distal amputations site. There is no drainage noted to the area. MSK: Partial digital amputations to the 2nd Digit B/L Pain with palpation of the distal aspect of the amputation site. No fluctuance noted. LABS: Recent Labs 10/09/25 0425 10/08/25 0922 WBC 8.54 10.38 HB 13.3 13.4 HCT 40.1 40.4 PLT 355 367 NA 138 139 K 4.0 3.6* CHLOR 103 105 CO2 21* 21* CREAT 0.53* 0.51* BUN 6* 3* GLUC 98 96 TPROT -- 7.0 ALB -- 3.9 CA 9.4 9.0 ALKPHOS -- 71 TBILI -- 0.3 AST -- 15 ALT -- 13 CRP Date Value Ref Range Status 10/08/2025 1.1 (H) <0.9 mg/dL Final No results found for: WSR No results found for: INR No results found for: APTT Hemoglobin A1C (%) Date Value 08/26/2025 8.1 03/20/2024 8.2 MICROBIOLOGY: Positive Micro-30 Days No results found for the last 720 hours. IMAGING: Last XR Foot - Impression Only XR FOOT GENERAL 3V AP/LAT/OBL LEFT Exam End: 11/01/2023 11:08 AM (Final result) Impression: IMPRESSION: No acute osseous abnormality. Minimal degenerative changes, as described. Mild pes planus. ... Last XR Ankle - Impression Only No resulted procedures found. Last MRI Foot - Impression Only No resulted procedures found. Last MRI Ankle - Impression Only MRI ANKLE WO IVCON LEFT Exam End: 08/08/2021 9:27 AM (Final result) Good Duran DPM 10/09/2025 11:30 AM [facility] [phone] [1] Social History Tobacco Use Smoking status: Every Day Current packs/day: 1.75 Average packs/day: 3.7 packs/day for 25.9 years (96.0 ttl pk-yrs) Types: Cigarettes Start date: 1999 Smokeless tobacco: Never Tobacco comments: Substance Use Topics Alcohol use: Not Currently Drug use: Not Currently * Althea Aguilar MD - 10/09/2025 9:58 AM ESTAssociated Order(s): PHYSICIAN CONSULT (AK,AV,EU,FV,HL,IR,DANISHA,MH,MM,MO,MR,SP,UN) INFECTIOUS DISEASE INITIAL CONSULT PATIENT NAME: Glo Vigil SERVICE DATE: 10/09/2025 SERVICE TIME: 9:58 AM REASON FOR CONSULT: Concern for foot osteomyelitis REQUESTING PHYSICIAN: Anuja Pichardo PRIMARY CARE PHYSICIAN: No primary care provider on file. HPI Ms. Vigil is a very pleasant, 40 year old female with PMH of type 2 DM who recently underwent amputation of bilateral distal phalanx both 2nd toes on 09/09/25. Patient reports increasing pain at surgical sites, especially on right side. She reports dark discoloration both surgical sites. No fevers. Denies cough, chest pain, shortness of breath, nasal congestion, headache, sore throat, abdominal pain, diarrhea, or dysuria. ROS: As per HPI. Otherwise 14 system review is negative. PAST MEDICAL HISTORY Diagnosis Date Diabetes mellitus (HCC) GERD (gastroesophageal reflux disease) Mixed hyperlipidemia Sleep apnea PAST SURGICAL HISTORY Procedure Laterality Date LIGATE FALLOPIAN TUBE PAST SURGICAL HISTORY OF Foot sx x2 TOTAL ABDOM HYSTERECTOMY No family history on file. SOCIAL HISTORY[1] MEDICATIONS: Prior to Admission Medications: Prescriptions Prior to Admission[2] Current Facility-Administered Medications Medication Dose Route Frequency NaCl 0.9% iv flush bag 20 mL INTRAVENOUS PRN heparin 5,000 Units injection 5,000 Units SUBCUTANEOUS q 12 H piperacillin-tazobactam iv piggyback 3.375 g in dextrose (iso-osmotic) 50 mL (ZOSYN) 3.375 g INTRAVENOUS q 6 H oxyCODONE IR 5 mg tab(s) (ROXICODONE) 5 mg ORAL q 6 H PRN acetaminophen 650 mg tab(s) (TYLENOL) 650 mg ORAL q 4 H PRN iv contrast (radiology procedure) INTRAVENOUS DIRECTED PRN iv contrast (radiology procedure) INTRAVENOUS DIRECTED PRN CURRENT ALLERGIES: Allergies As of Date: 10/08/2025 Allergen Noted Reaction KETOROLAC 06/01/2020 Hives PREDNISONE 06/28/2021 Other: See Comments TRAMADOL 06/01/2020 Anaphylaxis Fully Assessed 10/08/2025 OBJECTIVE Patient Vitals for the past 24 hrs: BP Temp Temp src Pulse Resp SpO2 10/09/25 0704 119/73 37.1 ??C (98.8 ??F) Oral 67 17 98 % 10/08/25 2331 122/75 37.1 ??C (98.7 ??F) Oral 69 19 97 % 10/08/25 1854 120/71 37 ??C (98.6 ??F) Oral 67 18 96 % 10/08/25 1539 137/74 37 ??C (98.6 ??F) Oral 63 17 100 % 10/08/25 1454 147/77 -- -- 73 14 96 % 10/08/25 1344 139/71 -- -- 70 -- 95 % 10/08/25 1223 157/87 -- -- 68 16 98 % 10/08/25 1113 145/83 -- -- 66 -- 98 % PHYSICAL EXAM: Gen - awake, alert, no distress Eyes - PERRL, conjunctiva clear bilaterally ENT - no pharyngeal erythema, no oral thrush/lesions Heart - RRR Lungs - CTAB, normal respiratory effort Abd - soft, nontender, nondistended Ext - surgical sites both 2nd toes appear intact, no drainage or cellulitis DATA: Diagnostic tests reviewed for today's visit below. Labs reviewed: WBC Date Value Ref Range Status 10/09/2025 8.54 3.70 - 11.00 k/uL Final Creatinine Date Value Ref Range Status 10/09/2025 0.53 (L) 0.58 - 0.96 mg/dL Final 10/08/2025 0.51 (L) 0.58 - 0.96 mg/dL Final Micro: None Imaging reviewed: 10/06 XR feet [facility]: Either previous amputation or chronic erosion of [...] the nail bed. No radiopaque foreign body. Assessment: Concern for residual osteomyelitis of the 2nd toes. Had distal phalanx amputations 09/09 Type 2 DM Plan: Continue empiric zosyn - monitor for diarrhea, rash Stop doxycycline Start empiric IV daptomycin - check baseline CK MR feet Consult podiatry Will monitor for ongoing therapeutic and potential untoward effects of antibiotic therapy. Althea Aguilar MD [facility] Contact#: [phone] [1] Social History Tobacco Use Smoking status: Every Day Current packs/day: 1.75 Average packs/day: 3.7 packs/day for 25.9 years (96.0 ttl pk-yrs) Types: Cigarettes Start date: 1999 Smokeless tobacco: Never Tobacco comments: Substance Use Topics Alcohol use: Not Currently Drug use: Not Currently [2] ondansetron (ZOFRAN) 8 mg tablet, Take 1 tablet by mouth every 8 hours as needed for nausea/vomiting (take 30 minutes prior to narcotic pain medication)., Disp: 20 tablet, Rfl: 1 semaglutide (OZEMPIC) 1 mg/dose (4 mg/3 mL) pen, Inject 1 mg subcutaneously one time a week., Disp:, Rfl: empagliflozin (JARDIANCE) 25 mg tablet, Take 25 mg by mouth daily with breakfast., Disp: , Rfl: spironolactone (ALDACTONE) 50 mg tablet, Take 50 mg by mouth., Disp: , Rfl: atorvastatin calcium (ATORVASTATIN ORAL), Take by mouth once daily., Disp: , Rfl: sitagliptin phosphate (JANUVIA ORAL), Take by mouth once daily., Disp: , Rfl: acetaminophen (TYLENOL) 500 mg tablet, take 2 tablets by mouth every 8 hours if needed, Disp: , Rfl: albuterol HFA (PROVENTIL HFA, VENTOLIN HFA) 90 mcg/actuation inhaler, Inhale 2 Puffs as instructed every 6 hours as needed., Disp: , Rfl: amitriptyline (ELAVIL) 50 mg tablet, Take 50 mg by mouth daily at bedtime., Disp: , Rfl: ONETOUCH ULTRA TEST test strip, twice daily. TEST TWICE DAILY, Disp: , Rfl: VRAYLAR 4.5 mg capsule, take 1 take by mouth once daily, Disp: , Rfl: citalopram (CELEXA) 20 mg tablet, Take 20 mg by mouth daily at bedtime., Disp: , Rfl: doxycycline (VIBRA-TABS) 100 mg tablet, take 1 tablet by mouth twice a day for 10 days (Patient nottaking: Reported on 08/26/2025), Disp: , Rfl: etodolac (LODINE-XL) 500 mg 24 hr tablet, take 1 tablet by mouth once daily NEEDED FOR PAIN withfood, Disp: , Rfl: FLOVENT HFA 110 mcg/actuation inhaler, inhale 2 puffs by mouth and INTO THE LUNGS twice a day, Disp: , Rfl: fluticasone (FLONASE) 50 mcg/actuation nasal spray, instill 1 spray into each nostril twice a day, Disp: , Rfl: furosemide (LASIX) 40 mg tablet, take 1 tablet by mouth once daily if needed for SWELLING, Disp: , Rfl: AJOVY AUTOINJECTOR 225 mg/1.5 mL auto-injector, inject subcutaneously as directed, Disp: , Rfl: loratadine (CLARITIN) 10 mg tablet, Take 10 mg by mouth once daily., Disp: , Rfl: lidocaine (SALONPAS) 4 % patch, Apply 1 Patch as directed q 24 HR., Disp: , Rfl: montelukast (SINGULAIR) 10 mg tablet, Take 10 mg by mouth., Disp: , Rfl: omeprazole (PRILOSEC) 20 mg capsule, Take 20 mg by mouth once daily., Disp: , Rfl: potassium chloride ER (K-DUR, KLOR-CON) 20 mEq tablet, Take 20 mEq by mouth., Disp: , Rfl: prazosin (MINIPRESS) 5 mg cap, Take 5 mg by mouth once daily., Disp: , Rfl: rizatriptan (MAXALT) 5 mg tablet, take 1 tablet by mouth AT ONSET OF HEADACHE MAY TAKE A SECOND TAB... (REFER TO PRESCRIPTION NOTES)., Disp: , Rfl: SUMAtriptan (IMITREX) 100 mg tablet, take 1 tablet by mouth if needed to ABORT MIGRAINE once daily 30 DAY SUPPLY, Disp: , Rfl: traZODone HCl 300 mg tablet, Take 300 mg by mouth once daily. (Patient not taking: No sig reported), Disp: , Rfl: triamcinolone acetonide (NASACORT AQ) 55 mcg nasal inhaler, Use 2 Sprays in the nose., Disp: , Rfl: * Cherise Pope RPh - 10/08/2025 9:47 AM EST PHARMACY VANCOMYCIN DOSING NOTE Patient Name: Glo Vigil Admission Date: 10/08/2025 Patient weight 93.9 kg, Vancomycin 1.5 g x1 ED dose appropriate. Will need new orders on admission if continuing treatment. If you have any questions[place] [phone]. Cherise Pope RPh documented in this encounter Nursing Notes * Gladys Scott RN - 10/11/2025 3:27 PM EST Other: 1516 IV removed. Discharge instructions discussed with, and given to patient. documented in this encounter ED Notes * Chanda Srinivasan RN - 10/08/2025 12:20 PM EST Patient lunch tray delivered to bedside. * Caesar Sheppard, DO - 10/08/2025 9:20 AM EST ED Provider Note Patient Name: Glo Vigil : 1985 SERVICE DATE: 10/08/25 History Patient presents with: Post Op Drainage Pain (foot) HPI 40-year-old female presents emergency department complaining of bilateral foot pain. Patient has a recent distal toe amputation bilaterally on 09/09 with podiatry. Was initially doing well postoperatively and started having worsening pain in the last week. Also noted a change in the color of her skin. Was seen at outside hospital and went underwent x-ray imaging concerning for osteomyelitis. Patient was in the waiting room for prolonged period of time and left prior to admission and remained. Denies any fevers, chills, abdominal pain, nausea, vomiting. PAST MEDICAL HISTORY Diagnosis Date Diabetes mellitus (HCC) GERD (gastroesophageal reflux disease) Mixed hyperlipidemia Sleep apnea PAST SURGICAL HISTORY Procedure Laterality Date LIGATE FALLOPIAN TUBE PAST SURGICAL HISTORY OF Foot sx x2 TOTAL ABDOM HYSTERECTOMY No family history on file. Social History[1] ALLERGIES Allergen Reactions Ketorolac Hives Prednisone Other: See Comments Tramadol Other: See Comments Review of Systems Physical Exam Vitals [10/08/25 0848] BP Pulse Temp Temp src Resp SpO2 Weight Height 135/81 85 36.3 ??C (97.4 ??F) Temporal 18 100 % 93.9 kg (207 lb) 1.651 m (5' 5 ) Physical Exam Constitutional: General: She is not in acute distress. HENT: Head: Normocephalic and atraumatic. Eyes: Extraocular Movements: Extraocular movements intact. Conjunctiva/sclera: Conjunctivae normal. Cardiovascular: Rate and Rhythm: Normal rate and regular rhythm. Pulmonary: Effort: Pulmonary effort is normal. No respiratory distress. Breath sounds: Normal breath sounds. Abdominal: General: There is no distension. Palpations: Abdomen is soft. Tenderness: There is no abdominal tenderness. Musculoskeletal: General: No swelling, tenderness or deformity. Cervical back: Normal range of motion and neck supple. Comments: Patient with distal amputation of bilateral second toes. Incisions are clean, dry, intact. Darkening of the skin bilaterally. Tender to palpation bilaterally. No discharge. Skin: General: Skin is warm and dry. Neurological: General: No focal deficit present. Mental Status: She is alert and oriented to person, place, and time. Mental status is at baseline. Psychiatric: Mood and Affect: Mood normal. Behavior: Behavior normal. Diagnostic Testing ED Labs Ordered and Reviewed GLUCOSE, BLOOD (POC) COMPLETE BLOOD COUNT AND DIFFERENTIAL COMPREHENSIVE METABOLIC PANEL C-REACTIVE PROTEIN GLUCOSE - ED(POC) Procedures ED Course / Clinical Impression ED Course as of 10/08/25 1039 Caesar Sheppard's Documentation SatOct 08, 2025 0917 Left and Right Foot XR 10/06: 1. Either previous amputation or chronic erosion [...] of the nail bed. No radiopaque foreign body 1038 Discussed patient presentation, management, care with on-call medicine physician who accepts patient to their service at this time. 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 On arrival patient vital signs within acceptable limits. On physical examination patient overall well-appearing no acute distress. Patient does have darkening of the skin of the bilateral second toes which she states is new. Incisions appear clean, dry, intact. No purulent drainage noted. Patient history and physical examination concerning for new osteomyelitis. Differential diagnosis also includes cellulitis, musculoskeletal pain. Given patient had prior x-rays from 10/06 suggesting osteomyelitis of the right second digit will not repeat at this time. Labs ordered in triage for further evaluation. Patient given morphine for pain control. Will initiate antibiotics and plan for admission for continued management for osteomyelitis. History and Record Review External record(s) reviewed: prior labs/imaging. Findings from review of prior labs/imaging: X-ray imaging from 10/06 Management Management of the patient was discussed with:admitting team Disposition The patient was admitted. SIGNATURE: Caesar Sheppard DO - [1] Social History Tobacco Use Smoking status: Every Day Current packs/day: 1.75 Average packs/day: 3.7 packs/day for 25.9 years (96.0 ttl pk-yrs) Types: Cigarettes Start date: 1999 Smokeless tobacco: Never Tobacco comments: Substance and Sexual Activity Alcohol use: Not Currently Drug use: Not Currently Sexual activity: Not on file CAESAR SHEPPARD 10/08/25 1039 * Muna Pena RN - 10/08/2025 9:03 AM EST Bed: ED-[facility] Expected date: Expected time: Means of arrival: Comments: triage * Yelena Vera DO - 10/08/2025 8:53 AM EST ED INTAKE NOTE Patient Name: Glo Vigil Service Date: 10/08/25 BRIEF HPI: This is a 40 year old female who presents to the ED with: recent surgery for bilateral second toes--- 09/09/25 toenails removed karissa patient Was diagnosed with osteomyelitis in both feet at and left AMA +DM BRIEF EXAM: Vitals [10/08/25 0848] BP Pulse Temp Temp src Resp SpO2 Weight Height 135/81 85 36.3 ??C (97.4 ??F) Temporal 18 100 % 93.9 kg (207 lb) 1.651 m (5' 5 ) NAD Awake and Alert Non labored breathing INITIAL WORKUP AND DECISION MAKING: Orders Placed This Encounter CBC w Diff CMP CRP GLUCOSE (POC) From 10/06/25 1. Either previous amputation or chronic erosion [...] the nail bed. No radiopaque foreign body. Provider examination performed via virtual platform with as1. Either previous amputation or chronicerosion of the 2nd toe distal phalanges, as [...] the nail bed. No radiopaque foreign body. sistance from bedside clinician. SIGNATURE: Yelena Vera DO * Camryn Funes RN - 10/08/2025 8:49 AM EST Pt came in from home complaining of bilateral foot pain due to an infection in the bone of both of her second toes after her toe nails removed 09/09/25. Pt stated she left [facility] due to not having a room and advised she had not been seen. Pt stated she came here today after going home to get some rest. documented in this encounter Miscellaneous Notes * [facility] - Emiliano Wang RT(R) - 10/10/2025 8:58 PM EST Radiology Service Progress Note PATIENT NAME: Glo Vigil DATE OF SERVICE: October 10, 2025 TIME: 8:59 PM PATIENT IDENTITY VERIFICATION COMPLETED USING TWO (2) IDENTIFIERS: Name and Date of confirmedby patient verbally and Name and Date of confirmed by identification band FALL SCREENING: Has the patient had 2 falls in the last year or 1 fall with injury or currently using an Ambulatory Assistive Device (Walker, Cane, Wheelchair, Crutches, etc.)? [facility] GENDER DATA: Assigned female at . status: : No status:N/A PATIENT RELEVANT IMPLANT DATA REVIEWED: Yes PATIENT PRESENTS WITH AN IMPLANTABLE OR ATTACHED EXHIBIT ARTIST: No RADIOLOGY DEPARTMENT: MR; Exam(s) Completed: Lower MSK: Forefoot/Midfoot, bilateral PERIPHERAL IV DATA: Inpatient: see LDA documentation SIGNED BY: RT Onel(R) October 10, 2025 8:59 PM documented in this encounter Plan of Treatment DateTypeDepartmentCare Team (Latest Contact Info)Mghhsbgfrfb40/01/2025 9:30 AM ESTOffice Visit Orthopaedics [address] [place] [address] Eulalia Fuentes DPM [address] [place] [address] Post op 6 wks bilateral toes, SX 09/09/2501 9:30 AM ESTOffice Visit Orthopaedics [address] [place] [address] Eulalia Fuentes DPM [address] [place] [address] Post op 12 wks bilateral toes, SX 09/09/25documented as of this encounter Procedures Procedure NamePriorityDate/TimeAssociated DiagnosisCommentsGLUCOSE, BLOOD (POC) Sfzkojh1210/11/2025 11:34 AM EST CREATININE AHWUtaoefz72/17/2025 8:54 AM EST GLUCOSE, BLOOD (POC)Nxhqglq1210/11/2025 8:11 AM EST GLUCOSE, BLOOD (POC)Exzlkyt0910/10/2025 9:11 PM EST MRI FOOT/TOES WO/W IVCON LXISQQaqssuv41/16/2025 8:58 PM EST MRI FOOT/TOES WO/W IVCON TPWQGmmuinq10/16/2025 8:58 PM EST GLUCOSE, BLOOD (POC)Ibzxldp2410/10/2025 12:10 PM EST GLUCOSE, BLOOD (POC)Jvggthn6510/10/2025 9:02 AM EST GLUCOSE, BLOOD (POC)Dgnqdnd9410/09/2025 9:16 PM EST GLUCOSE, BLOOD (POC)Bcxbddm6410/09/2025 5:29 PM EST GLUCOSE, BLOOD (POC)Zwnpoyh4610/09/2025 11:47 AM EST GLUCOSE, BLOOD (POC)Mrdreky9510/09/2025 7:51 AM EST HEMOGLOBIN O4RBrbuefx71/15/2025 4:25 AM EST CK CREATINE KINASEAdd-on10/09/2025 4:25 AM EST COMPLETE BLOOD KAXLQTctgqge45/15/2025 4:25 AM EST BASIC METABOLIC NKOKZMpghtlx93/15/2025 4:25 AM EST GLUCOSE, BLOOD (POC)Xxnympz6610/08/2025 5:34 PM EST COMPREHENSIVE METABOLIC TPYJWMQYO89/14/2025 9:22 AM EST CBC + BAFHXCBL53/14/2025 9:22 AM EST C-REACTIVE PROTEIN (CRP)STAT112/08/2024 9:22 AM EST GLUCOSE, BLOOD (POC)Ufxudgt9410/08/2025 9:17 AM EST documented in this encounter Results * (ABNORMAL) GLUCOSE, BLOOD (POC) (10/11/2025 11:34 AM EST)ComponentValueRef RangeTest MethodAnalysis TimePerformed AtPathologist SignatureGlucose, Point of Damk361(A)74 - 99 mg/dLHolyoke Medical CenterComment: Location:[facility], [address], [place], [address] The Accu-Chek Inform II glucose meter has not been approved for testing on patients receiving intensive medical intervention or therapy and results from this point of care glucose test should not be used for patient management decisions in these cases. ??Inaccurate results may also occur from other interfering factors, such as N-acetylcysteine (blood concentrations of greater than 5mg/dL), galactose, extremes of hematocrit (<10 or >65), or high doses of ascorbic acid (vitamin C) greater than 3mg/dL. ??Consider alternate testing mechanisms (e.g. core lab, blood gas instrument) in the above situations. Specimen (Source)Anatomical Location / LateralityCollection Method / Volume Collection TimeReceived Time10/11/2025 11:34 AM EST Narrative Authorizing ProviderResult TypeResult StatusInjean paul Pichardo [facility] TESTINGFinal ResultPerforming OrganizationAddressCity/State/ZIP CodePhone Number [facility] POINT OF CARE [facility] [address] [place] [address] * (ABNORMAL) CREATININE BLD (10/11/2025 8:54 AM EST)ComponentValueRef RangeTest MethodAnalysis TimePerformed AtPathologist SignatureCreatinine0.55(L)0.58 - 0.96 mg/dL10/11/2025 10:13 AM ESTHILLCREST LABORATORYEstimated Glomerular Filtration Iemk740>=60 mL/min/1.73m 10/11/2025 10:13 AM ESTHILLCREST LABORATORYComment:Estimated Glomerular Filtration Rate (eGFR) is calculated using the 2020 CKD-EPI creatinine equation. This equation utilizes serum creatinine, sex, and age as parameters. The creatinine assay has traceable calibration to isotope dilution-mass spectrometry. Refer to KDIGO guidelines for clinical interpretation. In patients with unstable renal function, e.g. those with acute kidney injury, the eGFRmay not accurately reflect actual GFR.Specimen (Source)Anatomical Location / LateralityCollection Method / VolumeCollection TimeReceived TimeBloodBLOOD SPECIMEN / UnknownVenipuncture / Krjosja1610/11/2025 8:54 AM EST10/11/2025 9:39 AM EST Narrative Authorizing ProviderResult TypeResult StatusAnuja Pichardo MDLABORATORYFinal ResultPerforming OrganizationAddressCity/State/ZIP CodePhone Number [facility] [address] [place] [address], * (ABNORMAL) GLUCOSE, BLOOD (POC) (10/11/2025 8:11 AM EST)ComponentValueRef RangeTest MethodAnalysis TimePerformed AtPathologist SignatureGlucose, Point of Yyjq367(A)74 - 99 mg/dLHolyoke Medical CenterComment: Location:[place] [address] The Accu-Chek Inform II glucose meter has not been approved for testing on patients receiving intensive medical intervention or therapy and results from this point of care glucose test should not be used for patient management decisions in these cases. ??Inaccurate results may also occur from other interfering factors, such as N-acetylcysteine (blood concentrations of greater than 5mg/dL), galactose, extremes of hematocrit (<10 or >65), or high doses of ascorbic acid (vitamin C) greater than 3mg/dL. ??Consider alternate testing mechanisms (e.g. core lab, blood gas instrument) in the above situations. Specimen (Source)Anatomical Location / LateralityCollection Method / Volume Collection TimeReceived Time10/11/2025 8:11 AM EST Narrative Authorizing ProviderResult TypeResult Petar Pichardo [facility] TESTINGFinal ResultPerforming OrganizationAddressCity/State/ZIP CodePhone Number [facility] POINT OF CARE [address] * (ABNORMAL) GLUCOSE, BLOOD (POC) (10/10/2025 9:11 PM EST)ComponentValueRef RangeTest MethodAnalysis TimePerformed AtPathologist SignatureGlucose, Point of Uyps302(A)74 - 99 mg/dLHolyoke Medical CenterComment: Location:[facility], [address] [place] [address] The Accu-Chek Inform II glucose meter has not been approved for testing on patients receiving intensive medical intervention or therapy and results from this point of care glucose test should not be used for patient management decisions in these cases. ??Inaccurate results may also occur from other interfering factors, such as N-acetylcysteine (blood concentrations of greater than 5mg/dL), galactose, extremes of hematocrit (<10 or >65), or high doses of ascorbic acid (vitamin C) greater than 3mg/dL. ??Consider alternate testing mechanisms (e.g. core lab, blood gas instrument) in the above situations. Specimen (Source)Anatomical Location / LateralityCollection Method / Volume Collection TimeReceived Time10/10/2025 9:11 PM EST Narrative Authorizing ProviderResult TypeResult StatusInjean paul Samuelsjay [facility] TESTINGFinal ResultPerforming OrganizationAddressCity/State/ZIP CodePhone Number [facility] [address] [place], [place] * MRI FOOT/TOES WO/W IVCON RIGHT (10/10/2025 8:58 PM EST)Anatomical Region LateralityModalityFoot, ToesMagnetic ResonanceSpecimen (Source)Anatomical Location / LateralityCollection Method / VolumeCollection TimeReceived Time 10/10/2025 8:58 PM EST Impressions 10/11/2025 10:41 AM EST IMPRESSION: Postoperative changes of recent partial resection of the second toe distal phalanx without MRI findings to suggest osteomyelitis or soft tissue abscess. Transcribed Using Voice Recognition Transcribe Date/Time: Oct 11 2025 10:32A Dictated by: LENO GALARZA MD This examination was interpreted and the report reviewed and electronically signed by: LENO GALARZA MD on Oct 11 2025 10:39AM ??EST Narrative 10/11/2025 10:41 AM EST * * *Final Report* * * DATE OF EXAM: Oct 10 2025 ??8:58PM ?? HCM ?? [id number] ??- ??MRI FOOT/TOES WO/W IVCON RT ??/ PROCEDURE REASON: Osteomyelitis, foot ? * * * * Physician Interpretation * * * * RESULT: EXAMINATION: ??MRI FOOT/TOES WO/W IVCON RT HISTORY: Osteomyelitis, foot TECHNIQUE: MRI of the right foot without and with contrast; was performed to evaluate for infection.9 Elucirem IV COMPARISON: 11/22/2024 radiographs RESULT: Postoperative changes of partial resection of the second toe distal phalanx. ??There is mild edema like signal and enhancement within the operative bed which is nonspecific and may be reactive/postoperative in etiology. ??No organized, drainable fluid collection is identified. Bone marrow signal in the remnant distal phalanx, middle phalanx, and remaining imaged osseous structures of the right foot is within normal limits. Mild degenerative subchondral marrow reactive/cystic changes are noted in the navicular bone and first metatarsal head reflecting areas of overlying cartilage loss. The subcutaneous tissues are otherwise unremarkable. The muscles are normal in signal and bulk. There is no acute fracture or suspicious marrow replacing lesion. No significant joint effusion. Localizer images: No additional findings. Procedure Note Provider, [facility] [place] - 10/11/2025 * * *Final Report* * * DATE OF EXAM: Oct 10 2025 8:58PM [facility] 0197 - MRI FOOT/TOES WO/W IVCON RT / PROCEDURE REASON: Osteomyelitis, foot * * * * Physician Interpretation * * * * RESULT: EXAMINATION: MRI FOOT/TOES WO/W IVCON RT HISTORY: Osteomyelitis, foot TECHNIQUE: MRI of the right foot without and with contrast; was performed to evaluate for infection.9 Elucirem IV COMPARISON: 11/22/2024 radiographs RESULT: Postoperative changes of partial resection of the second toe distal phalanx. There is mild edema like signal and enhancement within the operative bed which is nonspecific and may be reactive/postoperative in etiology. No organized, drainable fluid collection is identified. Bone marrow signal in the remnant distal phalanx, middle phalanx, and remaining imaged osseous structures of the right foot is within normal limits. Mild degenerative subchondral marrow reactive/cystic changes are noted in the navicular bone and first metatarsal head reflecting areas of overlying cartilage loss. The subcutaneous tissues are otherwise unremarkable. The muscles are normal in signal and bulk. There is no acute fracture or suspicious marrow replacing lesion. No significant joint effusion. Localizer images: No additional findings. IMPRESSION IMPRESSION: Postoperative changes of recent partial resection of the second toe distal phalanx without MRI findings to suggest osteomyelitis or soft tissue abscess. Transcribed Using Voice Recognition Transcribe Date/Time: Oct 11 2025 10:32A Dictated by: LENO GALARZA MD This examination was interpreted and the report reviewed and electronically signed by: LENO GALARZA MD on Oct 11 2025 10:39AM EST Authorizing ProviderResult TypeResult StatusHilary eJff MDMRI-PAMAFinal Result * MRI FOOT/TOES WO/W IVCON LEFT (10/10/2025 8:58 PM EST)Anatomical Region LateralityModalityFoot, ToesMagnetic ResonanceSpecimen (Source)Anatomical Location / LateralityCollection Method / VolumeCollection TimeReceived Time 10/10/2025 8:58 PM EST Impressions 10/11/2025 10:47 AM EST IMPRESSION: Postoperative changes of recent partial second toe resection without MRI findings to suggest osteomyelitis or soft tissue abscess. Transcribed Using Voice Recognition Transcribe Date/Time: Oct 11 2025 10:40A Dictated by: LENO GALARZA MD This examination was interpreted and the report reviewed and electronically signed by: LENO GALARZA MD on Oct 11 2025 10:45AM ??EST Narrative 10/11/2025 10:47 AM EST * * *Final Report* * * DATE OF EXAM: Oct 10 2025 ??8:58PM ?? [facility] ?? 0196 ??- ??MRI FOOT/TOES WO/W IVCON LT ??/ PROCEDURE REASON: Osteomyelitis, foot ? * * * * Physician Interpretation * * * * RESULT: EXAMINATION: ??MRI FOOT/TOES WO/W IVCON LT HISTORY: Osteomyelitis, foot TECHNIQUE: MRI of the left foot without and with contrast; was performed to evaluate for infection.9 Elucirem IV COMPARISON: 11/01/2023 radiographs RESULT: Postoperative changes of partial second toe resection at the level of the DIP joint. ??There is a mild edema like signal and enhancement within the operative bed which is nonspecific and likely reactive/postoperative in etiology. ??No organized, drainable fluid collection is identified. Bone marrow signal in the subjacent second middle phalanx and remaining imaged osseous structures of the left foot is within normal limits. ??No evidence of fracture or suspicious marrow replacing process. No significant joint effusion. Small focus of susceptibility artifact along the dorsal medial aspect of the first metatarsal head may be postoperative or reflect small retained foreign body. ??Notably, no radiographic correlate is identified on 11/01/2023 comparison radiographs. The subcutaneous tissues are otherwise unremarkable. The muscles are normal in signal and bulk. Localizer images: No additional findings. Procedure Note Provider, [facility] [place] - 10/11/2025 * * *Final Report* * * DATE OF EXAM: Oct 10 2025 8:58PM [facility] 0196 - MRI FOOT/TOES WO/W IVCON LT / PROCEDURE REASON: Osteomyelitis, foot * * * * Physician Interpretation * * * * RESULT: EXAMINATION: MRI FOOT/TOES WO/W IVCON LT HISTORY: Osteomyelitis, foot TECHNIQUE: MRI of the left foot without and with contrast; was performed to evaluate for infection.9 Elucirem IV COMPARISON: 11/01/2023 radiographs RESULT: Postoperative changes of partial second toe resection at the level of the DIP joint. There is a mild edema like signal and enhancement within the operative bed which is nonspecific and likely reactive/postoperative in etiology. No organized, drainable fluid collection is identified. Bone marrow signal in the subjacent second middle phalanx and remaining imaged osseous structures of the left foot is within normal limits. No evidence of fracture or suspicious marrow replacing process. No significant joint effusion. Small focus of susceptibility artifact along the dorsal medial aspect of the first metatarsal head may be postoperative or reflect small retained foreign body. Notably, no radiographic correlate is identified on 11/01/2023 comparison radiographs. The subcutaneous tissues are otherwise unremarkable. The muscles are normal in signal and bulk. Localizer images: No additional findings. IMPRESSION IMPRESSION: Postoperative changes of recent partial second toe resection without MRI findings to suggest osteomyelitis or soft tissue abscess. Transcribed Using Voice Recognition Transcribe Date/Time: Oct 11 2025 10:40A Dictated by: LENO GALARZA MD This examination was interpreted and the report reviewed and electronically signed by: LENO GALARZA MD on Oct 11 2025 10:45AM EST Authorizing ProviderResult TypeResult StatusHilary Aguilar MDMRI-PAMAFinal Result * (ABNORMAL) GLUCOSE, BLOOD (POC) (10/10/2025 12:10 PM EST)ComponentValueRef RangeTest MethodAnalysis TimePerformed AtPathologist SignatureGlucose, Point of Jgkw655(A)74 - 99 mg/dLHiMount Auburn HospitalComment: Location:[facility], [address] [place] [address], [facility] The Accu-Chek Inform II glucose meter has not been approved for testing on patients receiving intensive medical intervention or therapy and results from this point of care glucose test should not be used for patient management decisions in these cases. ??Inaccurate results may also occur from other interfering factors, such as N-acetylcysteine (blood concentrations of greater than 5mg/dL), galactose, extremes of hematocrit (<10 or >65), or high doses of ascorbic acid (vitamin C) greater than 3mg/dL. ??Consider alternate testing mechanisms (e.g. core lab, blood gas instrument) in the above situations. Specimen (Source)Anatomical Location / LateralityCollection Method / Volume Collection TimeReceived Time10/10/2025 12:10 PM EST Narrative Authorizing ProviderResult TypeResult StatusAnuja Pichardo MDP TESTINGFinal ResultPerforming OrganizationAddressCity/State/ZIP CodePhone Number [facility] [address] [place], [place] * GLUCOSE, BLOOD (POC) (10/10/2025 9:02 AM EST)ComponentValueRef RangeTest MethodAnalysis TimePerformed AtPathologist SignatureGlucose, Point of Lymk3686 - 99 mg/dLHolyoke Medical CenterComment: Location:[facility], [address] [place] [address], [place], [place], [facility] The Accu-Chek Inform II glucose meter has not been approved for testing on patients receiving intensive medical intervention or therapy and results from this point of care glucose test should not be used for patient management decisions in these cases. ??Inaccurate results may also occur from other interfering factors, such as N-acetylcysteine (blood concentrations of greater than 5mg/dL), galactose, extremes of hematocrit (<10 or >65), or high doses of ascorbic acid (vitamin C) greater than 3mg/dL. ??Consider alternate testing mechanisms (e.g. core lab, blood gas instrument) in the above situations. Specimen (Source)Anatomical Location / LateralityCollection Method / Volume Collection TimeReceived Time10/10/2025 9:02 AM EST Narrative Authorizing ProviderResult TypeResult StatusAnuja Pichardo MDPOC TESTINGFinal ResultPerforming OrganizationAddressCity/State/ZIP CodePhone Number [facility] [address] [place] [address] * (ABNORMAL) GLUCOSE, BLOOD (POC) (10/09/2025 9:16 PM EST)ComponentValueRef RangeTest MethodAnalysis TimePerformed AtPathologist SignatureGlucose, Point of Pshw503(A)74 - 99 mg/dLHolyoke Medical CenterComment: Location:[address], [facility] The Accu-Chek Inform II glucose meter has not been approved for testing on patients receiving intensive medical intervention or therapy and results from this point of care glucose test should not be used for patient management decisions in these cases. ??Inaccurate results may also occur from other interfering factors, such as N-acetylcysteine (blood concentrations of greater than 5mg/dL), galactose, extremes of hematocrit (<10 or >65), or high doses of ascorbic acid (vitamin C) greater than 3mg/dL. ??Consider alternate testing mechanisms (e.g. core lab, blood gas instrument) in the above situations. Specimen (Source)Anatomical Location / LateralityCollection Method / Volume Collection TimeReceived Time10/09/2025 9:16 PM EST Narrative Authorizing ProviderResult TypeResult StatusInjean paul Pichardo [facility] TESTINGFinal ResultPerforming OrganizationAddressCity/State/ZIP CodePhone Number [facility] [address] * (ABNORMAL) GLUCOSE, BLOOD (POC) (10/09/2025 5:29 PM EST)ComponentValueRef RangeTest MethodAnalysis TimePerformed AtPathologist SignatureGlucose, Point of Udnj777(A)74 - 99 mg/dLHolyoke Medical CenterComment: Location:[facility], [address] [place] [address], [facility] The Accu-Chek Inform II glucose meter has not been approved for testing on patients receiving intensive medical intervention or therapy and results from this point of care glucose test should not be used for patient management decisions in these cases. ??Inaccurate results may also occur from other interfering factors, such as N-acetylcysteine (blood concentrations of greater than 5mg/dL), galactose, extremes of hematocrit (<10 or >65), or high doses of ascorbic acid (vitamin C) greater than 3mg/dL. ??Consider alternate testing mechanisms (e.g. core lab, blood gas instrument) in the above situations. Specimen (Source)Anatomical Location / LateralityCollection Method / Volume Collection TimeReceived Time10/09/2025 5:29 PM EST Narrative Authorizing ProviderResult TypeResult StatusAnuja Pichardo MDPOC TESTINGFinal ResultPerforming OrganizationAddressCity/State/ZIP CodePhone Number [facility] [address] [place], [place] * (ABNORMAL) GLUCOSE, BLOOD (POC) (10/09/2025 11:47 AM EST)ComponentValueRef RangeTest MethodAnalysis TimePerformed AtPathologist SignatureGlucose, Point of Gftm986(A)74 - 99 mg/dLHolyoke Medical CenterComment: Location:[address], [facility] The Accu-Chek Inform II glucose meter has not been approved for testing on patients receiving intensive medical intervention or therapy and results from this point of care glucose test should not be used for patient management decisions in these cases. ??Inaccurate results may also occur from other interfering factors, such as N-acetylcysteine (blood concentrations of greater than 5mg/dL), galactose, extremes of hematocrit (<10 or >65), or high doses of ascorbic acid (vitamin C) greater than 3mg/dL. ??Consider alternate testing mechanisms (e.g. core lab, blood gas instrument) in the above situations. Specimen (Source)Anatomical Location / LateralityCollection Method / Volume Collection TimeReceived Time10/09/2025 11:47 AM EST Narrative Authorizing ProviderResult TypeResult Petar Pichardo [facility] TESTINGFinal ResultPerforming OrganizationAddressCity/State/ZIP CodePhone Number [facility] [address] [place], [place] * (ABNORMAL) GLUCOSE, BLOOD (POC) (10/09/2025 7:51 AM EST)ComponentValueRef RangeTest MethodAnalysis TimePerformed AtPathologist SignatureGlucose, Point of Ufhn655(A)74 - 99 mg/dLHolyoke Medical CenterComment: Location:[address], [facility] The Accu-Chek Inform II glucose meter has not been approved for testing on patients receiving intensive medical intervention or therapy and results from this point of care glucose test should not be used for patient management decisions in these cases. ??Inaccurate results may also occur from other interfering factors, such as N-acetylcysteine (blood concentrations of greater than 5mg/dL), galactose, extremes of hematocrit (<10 or >65), or high doses of ascorbic acid (vitamin C) greater than 3mg/dL. ??Consider alternate testing mechanisms (e.g. core lab, blood gas instrument) in the above situations. Specimen (Source)Anatomical Location / LateralityCollection Method / Volume Collection TimeReceived Time10/09/2025 7:51 AM EST Narrative Authorizing ProviderResult TypeResult StatusAnuja Pichardo MDPOC TESTINGFinal ResultPerforming OrganizationAddressCity/State/ZIP CodePhone Number [facility] [address] [place], [place] * CREATINE KINASE/CK (10/09/2025 4:25 AM EST)ComponentValueRef RangeTest Method Analysis TimePerformed AtPathologist IcuqptnvjUJ4565 - 196 U/L112/09/2024 11:06 AM [facility] LABORATORYSpecimen (Source)Anatomical Location / Laterality Collection Method / VolumeCollection TimeReceived TimeBloodBLOOD SPECIMEN / UnknownVenipuncture / Qderbjh1810/09/2025 4:25 AM EST10/09/2025 4:57 AM EST Narrative Authorizing ProviderResult TypeResult StatusHilaisha Aguilar MDLABORATORYFinal ResultPerforming OrganizationAddressCity/State/ZIP CodePhone Number [facility] [address] [place] [address] * (ABNORMAL) BASIC METABOLIC PANEL (10/09/2025 4:25 AM EST)ComponentValueRef RangeTest MethodAnalysis TimePerformed AtPathologist VrhcummzxEsrpwdg2954 - 99 mg/dL10/09/2025 6:31 AM ESTHILLCREST LABORATORYComment: The Citizen [place] Diabetes Association (ADA) provides guidance for cutoff values for fasting glucose andrandom glucose. The ADA defines fasting as no caloric intake for at least 8 hours. Fasting plasma glucose results between 100 to 125 mg/dL indicate increased risk for diabetes (prediabetes). Fasting plasma glucose results greater than or equal to 126 mg/dL meet the criteria for diagnosis of diabetes. In the absence of unequivocal hyperglycemia, results should be confirmed by repeat testing. In a patient with classic symptoms of hyperglycemia or hyperglycemic crisis, random plasma glucose results greater than or equal to 200 mg/dL meet the criteria for diagnosis of diabetes. Reference: Standards of Medical Care in Diabetes 2016, [place] Diabetes Association. Diabetes Care. 2016.39(Suppl 1). BUN6(L)7 - 21 mg/dL10/09/2025 6:31 AM [facility] LABORATORYCreatinine0.53(L) 0.58 - 0.96 mg/dL10/09/2025 6:31 AM [facility] FGONEVIGKTXoziqr332803 - 144 mmol/L112/09/2024 6:31 AM [facility] LABORATORYPotassium4.03.7 - 5.1 mmol/L 10/09/2025 6:31 AM [facility] XWXBRZIWIYDqmpeufh49760 - 107 mmol/L112/09/2024 6:31 AM [facility] FNODWFSXCKNO297(L)22 - 30 mmol/L112/09/2024 6:31 AM EST [facility] LABORATORYAnion Xlr783 - 15 mmol/L112/09/2024 6:31 AM [facility] LABORATORYCalcium, Total9.48.5 - 10.2 mg/dL10/09/2025 6:31 AM [facility] LABORATORYEstimated Glomerular Filtration Szxo424>=60 mL/min/1.73m 10/09/2025 6:31 AM EST[facility]ST LABORATORYComment:Estimated Glomerular Filtration Rate (eGFR) is calculated using the 2020 CKD-EPI creatinine equation. This equation utilizes serum creatinine, sex, and age as parameters. The creatinine assay has traceable calibration to isotope dilution-mass spectrometry. Refer to KDIGO guidelines for clinical interpretation. In patients with unstable renal function, e.g. those with acute kidney injury, the eGFRmay not accurately reflect actual GFR.Specimen (Source)Anatomical Location / LateralityCollection Method / VolumeCollection TimeReceived TimeBloodBLOOD SPECIMEN / UnknownVenipuncture / Rcrkzzk3110/09/2025 4:25 AM EST10/09/2025 4:57 AM EST Narrative Authorizing ProviderResult TypeResult StatusInna Krasnyansky MDLABORATORYFinal ResultPerforming OrganizationAddressCity/State/ZIP CodePhone Number [facility] [address] * COMPLETE BLOOD COUNT (10/09/2025 4:25 AM EST)ComponentValueRef RangeTest MethodAnalysis TimePerformed AtPathologist SignatureWBC8.543.70 - 11.00 k/uL 10/09/2025 4:48 AM [facility] LABORATORYRBC4.303.90 - 5.20 m/uL10/09/2025 4:48 AM [facility] GFDUFSOPZJRtopicinkw26.311.5 - 15.5 g/dL10/09/2025 4:48 AM [facility] MAQHQNKIWLAbctlmnpbx33.136.0 - 46.0 %10/09/2025 4:48 AM EST [facility] KIYSVCOSONSEP04.380.0 - 100.0 fL10/09/2025 4:48 AM [facility] UAINXOOAMCPFO88.926.0 - 34.0 pg10/09/2025 4:48 AM [facility] LABORATORYMCHC 33.230.5 - 36.0 g/dL10/09/2025 4:48 AM [facility] LABORATORYRDW-CV13.111.5 - 15.0 %10/09/2025 4:48 AM [facility] LABORATORYPlatelet Bqsuh866256 - 400 k/uL10/09/2025 4:48 AM [facility] LABORATORYMPV9.69.0 - 12.7 fL10/09/2025 4:48 AM [facility] LABORATORYAbsolute nRBC<0.01<0.01 k/uL10/09/2025 4:48 AM [facility] LABORATORYSpecimen (Source)Anatomical Location / Laterality Collection Method / VolumeCollection TimeReceived TimeBloodBLOOD SPECIMEN / UnknownVenipuncture / Gnteqrp2310/09/2025 4:25 AM EST10/09/2025 4:36 AM EST Narrative Authorizing ProviderResult TypeResult StatusAnuja Pichardo MDLABORATORYFinal ResultPerforming OrganizationAddressCity/State/ZIP CodePhone Number [facility] [address] [place] [address], * (ABNORMAL) HEMOGLOBIN A1C (10/09/2025 4:25 AM EST)ComponentValueRef RangeTest MethodAnalysis TimePerformed AtPathologist SignatureHemoglobin A1C7.2(H)4.3 - 5.6 %10/09/2025 7:15 PM [facility] LABComment:[place]izen [place] Diabetes Association guidelines indicate that patients with HgbA1c in the range 5.7- 6.4% are at increased risk for development of diabetes, and intervention by lifestyle modification may be beneficial. HgbA1c greater or equal to 6.5% is considered diagnostic of diabetes.Estimated Average Usyfvwg091lz/dL10/09/2025 7:15 PM [facility] LABComment:eAG: (Estimated average glucose) is a calculated value from HgbA1c and is sales representative supervisor of the average blood glucose level in the last 2-3 month period.Specimen (Source)Anatomical Location / LateralityCollection Method / VolumeCollection TimeReceived Time BloodBLOOD SPECIMEN / UnknownVenipuncture / Qrfnwvy2310/09/2025 4:25 AM EST 10/09/2025 4:36 AM EST Narrative Authorizing ProviderResult TypeResult StatusInjean paul Pichardo MDLABORATORYFinal ResultPerforming OrganizationAddressCity/State/ZIP CodePhone Number [facility] [address] [place] [address], * (ABNORMAL) GLUCOSE, BLOOD (POC) (10/08/2025 5:34 PM EST)ComponentValueRef RangeTest MethodAnalysis TimePerformed AtPathologist SignatureGlucose, Point of Ovot574(A)74 - 99 mg/dLHolyoke Medical CenterComment: Location:[facility], [address] [place] [address], [facility] The Accu-Chek Inform II glucose meter has not been approved for testing on patients receiving intensive medical intervention or therapy and results from this point of care glucose test should not be used for patient management decisions in these cases. ??Inaccurate results may also occur from other interfering factors, such as N-acetylcysteine (blood concentrations of greater than 5mg/dL), galactose, extremes of hematocrit (<10 or >65), or high doses of ascorbic acid (vitamin C) greater than 3mg/dL. ??Consider alternate testing mechanisms (e.g. core lab, blood gas instrument) in the above situations. Specimen (Source)Anatomical Location / LateralityCollection Method / Volume Collection TimeReceived Time10/08/2025 5:34 PM EST Narrative Authorizing ProviderResult TypeResult StatusAnuja Pichardo MDPOC TESTINGFinal ResultPerforming OrganizationAddressCity/State/ZIP CodePhone Number [facility] [address] [place], [place] * (ABNORMAL) C-REACTIVE PROTEIN (10/08/2025 9:22 AM EST)ComponentValueRef Range Test MethodAnalysis TimePerformed AtPathologist SignatureCRP1.1(H)<0.9 mg/dL 10/08/2025 10:14 AM [facility] LABORATORYSpecimen (Source)Anatomical Location / LateralityCollection Method / VolumeCollection TimeReceived Time BloodBLOOD SPECIMEN / UnknownVenipuncture / Yswagjz4310/08/2025 9:22 AM EST 10/08/2025 9:39 AM EST Narrative Authorizing ProviderResult TypeResult StatusJennifer Donze-Filiatraut DO LABORATORYFinal ResultPerforming OrganizationAddressCity/State/ZIP CodePhone Number [facility] [address] * (ABNORMAL) COMPREHENSIVE METABOLIC PANEL (10/08/2025 9:22 AM EST)Component ValueRef RangeTest MethodAnalysis TimePerformed AtPathologist Signature Protein, Total7.06.3 - 8.0 g/dL10/08/2025 10:14 AM [facility] Albumin3.93.9 - 4.9 g/dL10/08/2025 10:14 AM [facility] LABORATORYCalcium, Total9.08.5 - 10.2 mg/dL10/08/2025 10:14 AM [facility] LABORATORYBilirubin, Total0.30.2 - 1.3 mg/dL10/08/2025 10:14 AM [facility] LABORATORYAlkaline Haseprpyrci4551 - 123 U/L112/08/2024 10:14 AM [facility] WPHBFXNPBUFAN4329 - 35 U/L112/08/2024 10:14 AM [facility] WJQBJSHQICVOX478 - 38 U/L112/08/2024 10:14 AM [facility] ACZCCLHTWCTfkokzn5300 - 99 mg/dL10/08/2025 10:14 AM EST [facility]ORATORYComment: The Citizen [place] Diabetes Association (ADA) provides guidance for cutoff values for fasting glucose andrandom glucose. The ADA defines fasting as no caloric intake for at least 8 hours. Fasting plasma glucose results between 100 to 125 mg/dL indicate increased risk for diabetes (prediabetes). Fasting plasma glucose results greater than or equal to 126 mg/dL meet the criteria for diagnosis of diabetes. In the absence of unequivocal hyperglycemia, results should be confirmed by repeat testing. In a patient with classic symptoms of hyperglycemia or hyperglycemic crisis, random plasma glucose results greater than or equal to 200 mg/dL meet the criteria for diagnosis of diabetes. Reference: Standards of Medical Care in Diabetes 2016, [place] Diabetes Association. Diabetes Care. 2016.39(Suppl 1). BUN3(L)7 - 21 mg/dL10/08/2025 10:14 AM [facility] LABORATORYCreatinine0.51(L) 0.58 - 0.96 mg/dL10/08/2025 10:14 AM [facility] UHYVOILVQQCoggaw968946 - 144 mmol/L112/08/2024 10:14 AM [facility] LABORATORYPotassium3.6(L)3.7 - 5.1 mmol/L 10/08/2025 10:14 AM [facility] WHANRCMBALFxjlmywl35789 - 107 mmol/L112/08/2024 10:14 AM [facility] NGMHZQPDSQJY715(L)22 - 30 mmol/L112/08/2024 10:14 AM [facility] LABORATORYAnion Ijs338 - 15 mmol/L112/08/2024 10:14 AM [facility] LABORATORYEstimated Glomerular Filtration Yfrj827>=60 mL/min/1.73m 10/08/2025 10:14 AM [facility] LABORATORYComment:Estimated Glomerular Filtration Rate (eGFR) is calculated using the 2020 CKD-EPI creatinine equation. This equation utilizes serum creatinine, sex, and age as parameters. The creatinine assay has traceable calibration to isotope dilution-mass spectrometry. Refer to KDIGO guidelines for clinical interpretation. In patients with unstable renal function, e.g. those with acute kidney injury, the eGFRmay not accurately reflect actual GFR.Specimen (Source)Anatomical Location / LateralityCollection Method / VolumeCollection TimeReceived TimeBloodBLOOD SPECIMEN / UnknownVenipuncture / Ywhikof9310/08/2025 9:22 AM EST10/08/2025 9:39 AM EST Narrative Authorizing ProviderResult TypeResult StatusJennifer Donze-Filiatraut DO LABORATORYFinal ResultPerforming OrganizationAddressCity/State/ZIP CodePhone Number [facility] [address] * COMPLETE BLOOD COUNT AND DIFFERENTIAL (10/08/2025 9:22 AM EST)ComponentValue Ref RangeTest MethodAnalysis TimePerformed AtPathologist [id number] - 11.00 k/uL10/08/2025 9:31 AM ESTHILLCREST LABORATORYRBC4.293.90 - 5.20 m/uL 10/08/2025 9:31 AM ESTHILLCREST UIOEBZAZVUBhcqkacyxq22.411.5 - 15.5 g/dL 10/08/2025 9:31 AM ESTHILLCREST FBBQYYZYNSPbvshczzoj50.436.0 - 46.0 % 10/08/2025 9:31 AM ESTHILLCREST ZYYBNAQRYYJJU72.280.0 - 100.0 fL10/08/2025 9:31 AM ESTHILLCREST WZRLXVXCIZXCX11.226.0 - 34.0 pg10/08/2025 9:31 AM EST [facility] GRMESJLRFCITAO48.230.5 - 36.0 g/dL10/08/2025 9:31 AM ESTHILLCREST LABORATORYRDW-CV13.211.5 - 15.0 %10/08/2025 9:31 AM EST[facility]ORY Platelet Dlfnt475433 - 400 k/uL10/08/2025 9:31 AM ESTHILLCREST LABORATORYMPV 9.79.0 - 12.7 fL10/08/2025 9:31 AM ESTHILLCREST LABORATORYNeutrophils %54.0% 10/08/2025 9:31 AM ESTHILLCREST LABORATORYAbs Neut5.601.45 - 7.50 k/uL 10/08/2025 9:31 AM ESTHILLCREST LABORATORYLymphocytes %38.3%10/08/2025 9:31 AM ESTHILLCREST LABORATORYAbs Lymph3.981.00 - 4.00 k/uL10/08/2025 9:31 AM EST [facility]ORYMonocytes %5.3%10/08/2025 9:31 AM EST[facility] Abs Mono0.55<0.87 k/uL10/08/2025 9:31 AM ESTHILLCREST LABORATORYEosinophils % 1.6%10/08/2025 9:31 AM ESTHILLCREST LABORATORYAbs Eosin0.17<0.46 k/uL 10/08/2025 9:31 AM ESTH[facility]CREST LABORATORYBasophils %0.4%10/08/2025 9:31 AM ESTHILLCREST LABORATORYAbs Baso0.04<0.11 k/uL10/08/2025 9:31 AM ESTHILLCREST LABORATORYImmature Granulocytes %0.4%10/08/2025 9:31 AM ESTHILLCREST LABORATORYAbs Immature Gran0.04<0.10 k/uL10/08/2025 9:31 AM ESTHILLCREST LABORATORYNRBC0.0/100 WBC10/08/2025 9:31 AM ESTHILLCREST LABORATORYAbsolute nRBC<0.01<0.01 k/uL10/08/2025 9:31 AM ESTHILLCREST LABORATORYDiff TypeAuto 10/08/2025 9:31 AM ESTHILLCREST LABORATORYSpecimen (Source)Anatomical Location / LateralityCollection Method / VolumeCollection TimeReceived TimeBloodBLOOD SPECIMEN / UnknownVenipuncture / Xlsziok4210/08/2025 9:22 AM EST10/08/2025 9:26 AM EST Narrative Authorizing ProviderResult TypeResult StatusJennifer Donze-Filiatraut DO LABORATORYFinal ResultPerforming OrganizationAddressCity/State/ZIP CodePhone Number [facility] [address] [place] [address], * GLUCOSE, BLOOD (POC) (10/08/2025 9:17 AM EST)ComponentValueRef RangeTest MethodAnalysis TimePerformed AtPathologist SignatureGlucose, Point of Eptz4283 - 99 mg/dLFOSTORIA CITY H[facility]PITAL POINT OF CAREComment: The Accu-Chek Inform II glucose meter has not been approved for testing on patients receiving intensive medical intervention or therapy and results from this point of care glucose test should not be used for patient management decisions in these cases. ??Inaccurate results may also occur from other interfering factors, such as N-acetylcysteine (blood concentrations of greater than 5mg/dL), galactose, extremes of hematocrit (<10 or >65), or high doses of ascorbic acid (vitamin C) greater than 3mg/dL. ??Consider alternate testing mechanisms (e.g. core lab, blood gas instrument) in the above situations. Specimen (Source)Anatomical Location / LateralityCollection Method / Volume Collection TimeReceived Time10/08/2025 9:17 AM EST Narrative Authorizing ProviderResult TypeResult StatusDylan Sheppard DOPOC TESTINGFinal ResultPerforming OrganizationAddressCity/State/ZIP CodePhone Number [facility] PO[facility] documented in this encounter Visit Diagnoses Diagnosis Osteomyelitis (HCC)- Primary Unspecified osteomyelitis, site unspecified Other acute osteomyelitis of right foot (HCC) Pain in both feet Pain in limb Type 2 diabetes mellitus without complications, unspecified whether assisted insulin use (HCC) * Assessment & Plan Note - Anuja Pichardo MD - 10/10/2025 3:44 PM EST Associated Problem(s): Osteomyelitis (HCC) DM type 2 Plan IV antibiotics per ID MRI R foot Vascular arterial studies Monitor BG Restart januvia DVT prophylaxis * Assessment & Plan Note - Anuja Pichardo MD - 10/09/2025 2:39 PM EST Associated Problem(s): Osteomyelitis (HCC) DM type 2 Plan IV antibiotics per ID MRI R foot Vascular arterial studies Monitor BG Restart januvia DVT prophylaxis * Assessment & Plan Note - Anuja Pichardo MD - 10/08/2025 6:13 PM EST Associated Problem(s): Osteomyelitis (HCC) DM type 2 Plan IV antibiotics MRI R foot ID consult Monitor BG DVT prophylaxis documented in this encounter Admitting Diagnoses Diagnosis Osteomyelitis (HCC) Unspecified osteomyelitis, site unspecified documented in this encounter Administered Medications Medication OrderMAR ActionAction DateDoseRateSite acetaminophen 650 mg tab(s) (TYLENOL) 650 mg, ORAL, EVERY 4 HOURS NEEDED, Starting on Sat10/08/25 at 1616, Until Sat10/08/25 at 2111, Moderate Pain (4-6) - Enteral, Patient/guardian may elect to receive this medication for higher pain levels INSTEAD of the opioid, if preferred: Yes Given10/08/2025 5:40 PM YPU644 mg acetaminophen 650 mg tab(s) (TYLENOL) 650 mg, ORAL, EVERY 4 HOURS NEEDED, Starting on Sat10/08/25 at 2111, Until Sat10/11/25 at 1733, Mild Pain (1-3) - Enteral, Patient/guardian may elect to receive this medication for higher pain levels INSTEAD of the opioid, if preferred: Yes Given10/11/2025 11:43 AM WCJ899 upKqjkh2510/11/2025 5:19 AM VFG748 mgGiven 10/10/2025 9:09 PM JOR150 mg DAPTOmycin 700 mg iv piggyback in NaCl 0.9% 100 mL (CUBICIN) 700 mg, INTRAVENOUS, at 200 mL/hr, Administer over 30 Minutes, EVERY 24 HOURS, First dose on Sat10/09/25 at 1030, Until Discontinued, Refrigerate, Antimicrobial indication: Empiric, Infectious source(s): Skin/soft tissue, Pharmacist may modify dose per [facility] dose optimization consult agreement: Yes New Bag/Syringe/Wbxweq6010/10/2025 1:11 PM ESC459 mg200 mL/hrNew Bag/Syringe/Nsmjpn6410/09/2025 2:36 PM GWM239 mg200 mL/hr doxycycline hyclate 100 mg cap(s) (VIBRAMYCIN) 100 mg, ORAL, EVERY 12 HOURS 6AM/6PM, First dose on Sat10/08/25 at 1630, Until Discontinued, Administer at least two hours before or after antacids, calcium, iron, magnesium, aluminum or foods containing these items. Administration via GI feeding tube: doxycycline absorption is dependent on the site of drug release in the gastrointestinal (GI) tract (gastric versus small intestine). When administ ering doxycycline via a feeding tube, confirm gastric placement of the tube., Antimicrobial indication: Empiric, Infectious source(s): Skin/soft tissue, Pharmacist may modify dose per [facility] dose optimization consult agreement: Yes Given10/09/2025 5:34 AM XAX537 vqBojiq1110/08/2025 5:40 PM SEE721 mg doxycycline hyclate 100 mg cap(s) (VIBRAMYCIN) 100 mg, ORAL, EVERY 12 HRS AT 7AM/7PM, 10 doses, First dose on Sat10/11/25 at 1200, Last dose on Sat10/15/25 at 1900, Administer at least two hours before or after antacids, calcium, iron, magnesium, aluminum or foods containing these items. Administration via GI feeding tube: doxycycline absorption is dependent on the site of drug release in the gastrointestinal (GI) tract (gastric versus small intestine). When administering doxycycline via a feeding tube, confirm gastric placement of the tube., Antimicrobial indication: Empiric, Infectious source(s): Skin/soft tissue, Pharmacist may modify dose per [facility] dose optimization consult agreement: Yes Given10/11/2025 11:43 AM YLD875 mg heparin 5,000 Units injection 5,000 Units, SUBCUTANEOUS, EVERY 12 HOURS, First dose on Sat10/08/25 at 1630, Until Discontinued Given10/11/2025 9:48 AM EST5,000 UnitsAbdomen, IIBNscqe06/16/2025 9:03 PM EST 5,000 UnitsAbdominal KrcyitQuixr22/16/2025 7:49 AM EST5,000 UnitsAbdominal Tissue morphine 4 mg injection 4 mg, INTRAVENOUS, ONCE, 1 dose, On Sat10/08/25 at 0930 Given10/08/2025 9:34 AM EST4 mg NaCl 0.9% iv flush bag 20 mL, INTRAVENOUS, NEEDED, Starting on Sat10/08/25 at 0942, Until Sat10/11/25 at 1733, See admin instructions, If no compatible primary is already running, infuse NaCl 0.9% as primary to flush tubing after non-chemotherapy, non-immunotherapy intermittent infusions. Administer at the same rateas intermittent infusion. Select the Flush Bag file on smart pump. oxyCODONE IR 5 mg tab(s) (ROXICODONE) 5 mg, ORAL, EVERY 6 HOURS NEEDED, Starting on Sat10/08/25 at 2109, Until Sat10/11/25 at 1733, Moderate Pain (4-6) - Enteral, Severe Pain (>/=7) - Enteral Given10/11/2025 11:43 AM EST5 awIgmgy7310/11/2025 5:19 AM EST5 laEggyo3610/10/2025 9:09 PM EST[address] 20 mg tab(s) (PROTONIX) 20 mg, ORAL, 2 TIMES DAILY BEFORE MEALS (0600/1600), First dose (after last modification) on Sat10/11/25 at 1200, Until Discontinued, omeprazole tab/cap(s) (PRILOSEC) substituted to pantoprazole tab(s) (PROTONIX) per Pharmacy and Therapeutics Committee Swallow whole; DO NOT crush or chew. Given10/11/2025 1:15 PM EST20 mg piperacillin-tazobactam iv piggyback 3.375 g in dextrose (iso-osmotic) 50 mL (ZOSYN) 3.375 g, INTRAVENOUS, at 100 mL/hr, Administer over 30 Minutes, EVERY 6 HOURS, First dose on Sat10/08/25 at 1630, Until Discontinued, Refrigerate, Antimicrobial indication: Empiric, Infectious source(s): Bone and joint, Pharmacist may modify dose per [facility] dose optimization consult agreement: Yes New Bag/Syringe/Uaonrs4910/11/2025 5:21 AM EST3.375 g100 mL/hrNew Bag/Syringe/Enapkw4710/10/2025 11:14 PM EST3.375 g100 mL/hrNew Bag/Syringe/Bottle 10/10/2025 5:18 PM EST3.375 g100 mL/hr potassium chloride 40 mEq tablet (K-TAB) 40 mEq, ORAL, ONCE, 1 dose, On Sat10/08/25 at 1630, Swallow whole; DO NOT crush or chew. Given10/08/2025 5:40 PM EST40 mEq SITagliptin phosphate 100 mg tab(s) (JANUVIA) 100 mg, ORAL, DAILY, First dose on Sat10/09/25 at 1500, Until Discontinued, Pharmacist may modify dose per [facility] dose optimization consult agreement: Yes Given10/11/2025 9:48 AM BOS378 uhYgfpp6710/10/2025 7:49 AM RED018 mgGiven 10/09/2025 3:40 PM LFJ569 mg vancomycin iv piggyback 1.5 g in D5W 300 mL (VANCOCIN) 1.5 g (rounded from 1.4085 g = 0.015 g/kg/dose ?? 93.9 kg), INTRAVENOUS, at 200 mL/hr, Administer over 1.5 Hours, ONCE, 1 dose, On Sat10/08/25 at 1000, REFRIGERATE - NONCYTOTOXIC IRRITANT WITH VESICANT POTENTIAL, Antimicrobial indication: Empiric, Infectious source(s): Bone and joint New Bag/Syringe/Uhsbhw2710/08/2025 10:05 AM EST1.5 g200 mL/hrdocumented in this encounter Active and Recently Administered Medications Times are shown in EST.Medication Order/ DAPTOmycin 700 mg iv piggyback in NaCl 0.9% 100 mL (CUBICIN) (CANCELED) 700 mg, INTRAVENOUS, at 200 mL/hr, Administer over 30 Minutes, EVERY 24 HOURS, First dose on Sat10/09/25 at 1030, Until Discontinued, Refrigerate, Antimicrobial indication: Empiric, Infectious source(s): Skin/soft tissue, Pharmacist may modify dose per [facility] dose optimization consult agreement: Yes * 1436 (New Bag/Syringe/Bottle - Provider: Jaclyn Ambrocio RN) * 1506 (Infusion Complete - Provider: Jaclyn Ambrocio RN) * 1311 (New Bag/Syringe/Bottle - Provider: Jaclyn Ambrocio, RN) * 1341 (Infusion Complete - Provider: Jaclyn Ambrocoi, RN) doxycycline hyclate 100 mg cap(s) (VIBRAMYCIN) (CANCELED) 100 mg, ORAL, EVERY 12 HOURS 6AM/6PM, First dose on Sat10/08/25 at 1630, Until Discontinued, Administer at least two hours before or after antacids, calcium, iron, magnesium, aluminum or foods containing these items. Administration via GI feeding tube: doxycycline absorption is dependent on the site of drug release in the gastrointestinal (GI) tract (gastric versus small intestine). When administ ering doxycycline via a feeding tube, confirm gastric placement of the tube., Antimicrobial indication: Empiric, Infectious source(s): Skin/soft tissue, Pharmacist may modify dose per [facility] dose optimization consult agreement: Yes * 9836 (Given - Provider: Albino Marques RN) doxycycline hyclate 100 mg cap(s) (VIBRAMYCIN) 100 mg, ORAL, EVERY 12 HRS AT 7AM/7PM, 10 doses, First dose on Sat10/11/25 at 1200, Last dose on Sat10/15/25 at 1900, Administer at least two hours before or after antacids, calcium, iron, magnesium, aluminum or foods containing these items. Administration via GI feeding tube: doxycycline absorption is dependent on the site of drug release in the gastrointestinal (GI) tract (gastric versus small intestine). When administering doxycycline via a feeding tube, confirm gastric placement of the tube., Antimicrobial indication: Empiric, Infectious source(s): Skin/soft tissue, Pharmacist may modify dose per [facility] dose optimization consult agreement: Yes * 1143 (Given - Provider: Lashawn Fisher RN) heparin 5,000 Units injection 5,000 Units, SUBCUTANEOUS, EVERY 12 HOURS, First dose on Sat10/08/25 at 1630, Until Discontinued * 0920 (Given - Provider: Jaclyn Ambrocio RN - Comment: Pt self-admin w/me watching per her request, did great) * 1950 (Given - Provider: Albino Marques RN) * 0749 (Given - Provider: Jaclyn Ambrocio, CHRIS) * 2103 (Given - Provider: Teri Lyon RN) * 0948 (Given - Provider: Lashawn Fisher, CHRIS) pantoprazole DR 20 mg tab(s) (PROTONIX) 20 mg, ORAL, 2 TIMES DAILY BEFORE MEALS (0600/1600), First dose (after last modification) on Sat10/11/25 at 1200, Until Discontinued, omeprazole tab/cap(s) (PRILOSEC) substituted to pantoprazole tab(s) (PROTONIX) per Pharmacy and Therapeutics Committee Swallow whole; DO NOT crush or chew. * 1315 (Given - Provider: Lashawn Fisher RN) piperacillin-tazobactam iv piggyback 3.375 g in dextrose (iso-osmotic) 50 mL (ZOSYN) (CANCELED) 3.375 g, INTRAVENOUS, at 100 mL/hr, Administer over 30 Minutes, EVERY 6 HOURS, First dose on Sat10/08/25 at 1630, Until Discontinued, Refrigerate, Antimicrobial indication: Empiric, Infectious source(s): Bone and joint, Pharmacist may modify dose per [facility] dose optimization consult agreement: Yes * 0017 (Infusion Complete - Provider: Albino Marques, CHRIS) * 0534 (New Bag/Syringe/Bottle - Provider: Albino Marques RN) * 0604 (Infusion Complete - Provider: Albino Marques RN) * 1145 (New Bag/Syringe/Bottle - Provider: Jaclyn Ambrocio RN) * 1215 (Infusion Complete - Provider: Jaclyn Ambrocio, CHRIS) * 1843 (New Bag/Syringe/Bottle - Provider: Jaclyn Ambrocio, CHRIS) * 1913 (Infusion Complete - Provider: Albino Marques, CHRIS) * 0009 (New Bag/Syringe/Bottle - Provider: Albino Marques, CHRIS) * 0039 (Infusion Complete - Provider: Albino Marques RN) * 0552 (New Bag/Syringe/Bottle - Provider: Albino Maruqes RN) * 0622 (Infusion Complete - Provider: Albino Marques RN) * 1203 (New Bag/Syringe/Bottle - Provider: Jaclyn Ambrocio, CHRIS) * 1233 (Infusion Complete - Provider: Jaclyn Ambrocio, CHRIS) * 1718 (New Bag/Syringe/Bottle - Provider: Jaclyn Ambrocio, CHRIS) * 1748 (Infusion Complete - Provider: Jaclyn Ambrocio, RN) * 2314 (New Bag/Syringe/Bottle - Provider: Teri Lyon RN) * 2344 (Infusion Complete - Provider: Teri Lyon, RN) * 0521 (New Bag/Syringe/Bottle - Provider: Teri Lyon, RN) * 0551 (Infusion Complete - Provider: Teri Lyon, RN) SITagliptin phosphate 100 mg tab(s) (JANUVIA) 100 mg, ORAL, DAILY, First dose on Sat10/09/25 at 1500, Until Discontinued, Pharmacist may modify dose per [facility] dose optimization consult agreement: Yes * 1540 (Given - Provider: Jaclyn Ambrocio, RN) * 0749 (Given - Provider: Jaclyn Ambrocio, RN) * 0948 (Given - Provider: Lashawn Fisher RN) Medication Order11/15/ acetaminophen 650 mg tab(s) (TYLENOL) 650 mg, ORAL, EVERY 4 HOURS NEEDED, Starting on Sat10/08/25 at 2111, Until Sat10/11/25 at 1733, Mild Pain (1-3) - Enteral, Patient/guardian may elect to receive this medication for higher pain levels INSTEAD of the opioid, if preferred: Yes * 2108 (Given - Provider: Teri Lyon RN) * 05 (Given - Provider: Teri Lyon RN) * 1143 (Given - Provider: Lashawn Fisher, RN) NaCl 0.9% iv flush bag 20 mL, INTRAVENOUS, NEEDED, Starting on Sat10/08/25 at 0942, Until Sat10/11/25 at 1733, See admin instructions, If no compatible primary is already running, infuse NaCl 0.9% as primary to flush tubing after non-chemotherapy, non-immunotherapy intermittent infusions. Administer at the same rateas intermittent infusion. Select the Flush Bag file on smart pump. oxyCODONE IR 5 mg tab(s) (ROXICODONE) 5 mg, ORAL, EVERY 6 HOURS NEEDED, Starting on Sat10/08/25 at 2109, Until Sat10/11/25 at 1733, Moderate Pain (4-6) - Enteral, Severe Pain (>/=7) - Enteral * 0920 (Given - Provider: Jaclyn Ambrocio RN) * 1540 (Given - Provider: Jaclyn Ambrocio, CHRIS) * 2226 (Given - Provider: Albino Marques, CHRIS) * 0748 (Given - Provider: Jaclyn Ambrocio RN) * 1405 (Given - Provider: Jaclyn Ambrocio RN) * 2108 (Given - Provider: Teri Lyon, CHRIS) * 0519 (Given - Provider: Teri Lyon, CHRIS) * 1143 (Given - Provider: Lashawn Fisher, RN) documented in this encounter Care Teams Team MemberRelationshipSpecialtyStart DateEnd Date Jamia Johansen MD ReferringOb/Gyn2/documented as of this encounter
--- OUTSIDE RECORDS SUMMARY | 2025-10-12 10:30 | XMS_ITS | Encounter Summary ---
Author Organization [facility] Address [address] [place] [address] Care Team Providers Care Tour Counselor Name Role Phone Rigoberto Montano DO Unavailable Unallocated, Noms Provider Primary Care Provi christopher Reason for Visit * ReasonCommentsPre-op Visit Encounter Details DateTypeDepartmentCare Team (Latest Contact Info)Pwxokvdrdwz66/18/2025 10:30 AM ESTConsult [facility] [address] [address] Rigoberto Montano DO [address] [place] [place], [place] [phone] Pelvic pain in female; Pre-op examination; Pain of ovary Social History Tobacco UseTypesPacks/DayYears UsedDateSmoking Tobacco: Every DayCigarettes1.523 Smokeless Tobacco: Never Tobacco Cessation:Ready to Q uit: Not Asked; Counseling Given: Not Answered Alcohol UseStandard Drinks/WeekCommentsNever0 (1 standard drink = 0.6 oz pure alcohol)CommentsNoSex and Gender InformationValueDate RecordedSex Assigned at WwownVuklzp68/23/2023 11:22 PM EDTLegal YcnNwsmhv03/15/2023 11:18 PM EDTGender PhsmznmkKmdxmh69/15/2023 11:18 PM EDTSexual OrientationStraight 04/16/2023 11:22 PM EDTdocumented as of this encounter Last Filed Vital Signs Vital SignReadingTime TakenCommentsBlood Rmnfxazd893/7811 11:12 AM EST Pulse--Temperature--Respiratory Rate--Oxygen Saturation--Inhaled Oxygen Concentration--Kmpkxm52.2 kg (201 lb)10/12/2025 11:12 AM ESTHeight--Body Mass Index32.4407 9:50 AM EDTdocumented in this encounter Progress Notes * Lissette Mercer LPN - 10/12/2025 10:30 AM EST Reason for Appointment: Patient ID: Glo Ruano is a 40 y.o. female who presents for No chief complaint on file. Patient presents today for pre-op for DaVinci Assisted Diagnostic Laparoscopic Left Oophorectomy, possible Exploratory Laparotomy. MEDICATIONS Current Outpatient Medications Medication Instructions Acetaminophen Extra Strength 500 MG tablet Ajovy 225 MG/1.5ML auto-injector Boric Acid 600 mg, Vaginal, Daily citalopram (CeleXA) 20 MG tablet Every 24 hours cyclobenzaprine (Flexeril) 10 MG tablet furosemide (Lasix) 20 MG tablet montelukast (SINGULAIR) 10 mg, Daily omeprazole (PriLOSEC) [address] capsule Every 24 hours potassium chloride CR (Klor-Con M20) 20 MEQ ER tablet semaglutide (Ozempic) 2 MG/1.5ML solution pen-injector .week Ventolin HFA 108 (90 Base) MCG/ACT inhaler [...] PROBLEMS Active Ambulatory Problems Diagnosis Date Noted Left breast abscess 06/18/2025 Mass of upper inner quadrant of left breast 06/18/2025 Mass of buttock 06/18/2025 Neoplasm of uncertain behavior of skin of back 06/18/2025 Type 2 diabetes mellitus without complication, without long-term current use of insulin (HCC) 06/18/2025 Epidermal inclusion cyst 07/12/2025 Left buttock abscess 07/12/2025 Pain of ovary 10/12/2025 Resolved Ambulatory Problems Diagnosis Date Noted No [...] Name Age of Onset Diabetes Mother Amanda Ruano Heart disease Mother Amanda Ruano Rheum arthritis Mother Amanda Ruano Asthma Mother Amanda Ruaon Migraines Mother Amanda Ruano No Known Problems Sister 2 sisters No Known Problems Brother Cancer Other Family history Diabetes Other Family history Hypertension Other Family history Coronary artery disease Other Family history No Known Problems Daughter 3 daughters No Known Problems Son SURGICAL HISTORY Past Surgical History: Procedure Laterality Date ABLATION A-FIB 10/27/2021 BREAST MASS EXCISION Bilateral 06/28/2025 Excision of Lt lateral and Lt medial breast mass, and Rt breast skin mass- AVV BUTTOCK MASS EXCISION 06/28/2025 Excision of Rt Buttock skin lesion and Lt buttock mass- AVV CHEILECTOMY 07/2020 gastroc recession, dominga osteotomy 4th and bi lobe skin plasty to left plantar foot. Dr Sawyer GrajedaP.M. CHOLECYSTECTOMY 06/17/2016 CYSTOSCOPY 08/28/2023 DILATION AND CURETTAGE [...] Negative. Gastrointestinal: Negative. Genitourinary: Positive for pelvic pain. Musculoskeletal: Negative. Skin: Negative. Neurological: Negative. All [...] nursing note reviewed. Exam conducted with a data officer present. Vitals: Estimated body mass index is 34.06 kg/m?? as calculated from the following: Height as of 06/18/25: 5' 6 . Weight as of 08/04/25: 211 lb. BP: No LMP recorded (lmp unknown). Patient has had a hysterectomy. Assessment/Plan ICD-10-CM 1. Pelvic pain in female R10.20 2. Pre-op examination Z01.818 3. Pain of ovary N94.89 Left Ovary Pain Assessment/Plan Pre Op: Patient is doing well but has complaints of left ovarian pain. I have discussed conservative management vs. surgical management with the patient in detail and patient desires surgical management at this time. Patient will undergo on DaVinci Assisted Laparoscopic Left Oophorectomy, possible Exploratory Laparotomy on 10/29/2025. Surgical consents were signed, mmc was reviewed, and patient is to proceed to [facility] OR. Follow Up: Patient is to follow up between 1-2 weeks post operative to assess proper healing and recovery fromprocedure. Documented by Martina Castro LPN on behalf of: Rigoberto Montano DO documented in this encounter Plan of Treatment Not on file documented as of this encounter Visit Diagnoses Diagnosis Pelvic pain in female Unspecified symptom associated with female genital organs Pre-op examination Pain of ovary documented in this encounter Care Teams Team MemberRelationshipSpecialtyStart DateEnd Date Rigoberto Montano DO [address] [place], [place] [address]katherine [place] [address] PCP - [facility]11/25/24 Unallocated, Noms Provider, MD [place], [place] [id number] PCP - GeneralFamily Medicine06/18/25 Asa Marques PA-C [address] [place] [address] [phone] Primary Care ProviderFamily Medicine11/25/22documented as of this encounter
--- OUTSIDE RECORDS SUMMARY | 2025-10-19 12:59 | XMS_ITS | Encounter Summary ---
Author Organization [facility] Address [address] [place], [place] [id number] Care Team Providers Care Bin Filler Name Role Phone Jamia Johansen MD Unavailable [phone] Source Comments In the event this information is protected by the Federal Confidentiality of Alcohol and Drug AbusePatient Records regulations: The Federal rules restrict any use of the information to criminally investigate or prosecute any alcohol or drug abuse patient.[facility] Encounter Details DateTypeDepartmentCare Team (Latest Contact Info)Nkuhkefwxne65/14/2025Travel Social History Tobacco UseTypesPacks/DayYears UsedDateSmoking Tobacco: Every DayCigarettes3.7 25.9Started: 2000Smokeless Tobacco: Never Comments: Alcohol UseStandard Drinks/WeekCommentsNot Currently0 (1 standard drink = 0.6 oz pure alcohol)PHQ-2AnswerDate RecordedPHQ-2 [id number] RecordedQ1: How often do you have a [...] were you homeless or living in a [place] (including now)?No10/08/2025HC UtilitiesAnswerDate RecordedIn the past 12 months has the electric, gas, oil, or water [employer] threatened to shut off services in your home?No10/08/2025rea Deprivation IndexAnswerDate Recorded National Score (1-100), lower number is lower icnk530909/14/2025State Score (1- 10), lower number is lower [id number] from: https://www.neighborhoodatlas.medicine.[facility].edu/. Last address used for [address] [facility] [address] CommentsNoSex and Gender InformationValueDate RecordedSex Assigned at BirthNot on fileLegal SexFemale 01/12/2020 11:36 AM ESTGender IdentityNot on fileSexual OrientationNot on file documented as of this encounter Plan of Treatment DateTypeDepartmentCare Team (Latest Contact Info)Vpsbrimmcdf92/01/2025 9:30 AM ESTOffice Visit Orthopaedics [address] [place] [address] Reji Beltran DPM [address] [place] [address] Post op 6 wks bilateral toes, SX 09/09/2501 9:30 AM ESTOffice Visit Orthopaedics [address] [place] [address] Reji Beltran DPM [address] [place] [address] Post op 12 wks bilateral toes, SX 09/09/25documented as of this encounter Visit Diagnoses Not on filedocumented in this encounter Care Teams Team MemberRelationshipSpecialtyStart DateEnd Date O Jamia Escalona MD ReferringOb/Gyn01/12/20documented as of this encounter
--- OUTSIDE RECORDS SUMMARY | 2025-10-19 12:59 | XMS_ITS | Clinical Summary ---
Author Organization [facility] Address [address] [place], [place] [id number] Care Team Providers Care Mainframe Analyst Name Role Phone Jamia Johansen MD Unavailable [phone] Allergies Active AllergyReactionsCriticalityNoted NmujKvpqfcqhOmsztlhmsJxwcv13/08/2020 PrednisoneOther: See Vbpvbqls32/04/6427QxekxkcwUsashbbncou86/08/2020 Medications MedicationSigDispense QuantityRefillsLast FilledStart DateEnd DateStatus acetaminophen (TYLENOL) 500 mg tablet take 2 tablets by mouth every 8 hours if hkfbcr1301/09/2022ctive albuterol HFA (PROVENTIL HFA, VENTOLIN HFA) 90 mcg/actuation inhaler Inhale 2 Puffs as instructed every 6 hours as needed.03/24/2020Active amitriptyline (ELAVIL) 50 mg tablet Take 50 mg by mouth daily at bedtime.10/16/2021ctive ONETOUCH ULTRA TEST test strip twice daily. TEST TWICE DAILY10/16/2021ctive VRAYLAR 4.5 mg capsule take 1 take by mouth once daily10/17/2021ctive citalopram (CELEXA) 20 mg tablet Take 20 mg by mouth daily at bedtime.10/16/2021ctive FLOVENT HFA 110 mcg/actuation inhaler inhale 2 puffs by mouth and INTO THE LUNGS twice a day01/11/2022ctive fluticasone (FLONASE) 50 mcg/actuation nasal spray instill 1 spray into each nostril twice a day01/10/2022ctive furosemide (LASIX) 40 mg tablet take 1 tablet by mouth once daily if needed for MSLFGGNP76/16/2022ctive AJOVY AUTOINJECTOR 225 mg/1.5 mL auto-injector inject subcutaneously as yvbhiigd63/02/2022ctive loratadine (CLARITIN) 10 mg tablet Take 10 mg by mouth once daily.01/11/2022ctive lidocaine (SALONPAS) 4 % patch Apply 1 Patch as directed q 24 HR.06/24/2020Active montelukast (SINGULAIR) 10 mg tablet Take 10 mg by mouth.04/13/2020Active omeprazole (PRILOSEC) 20 mg capsule Take 20 mg by mouth once daily.10/16/2021ctive potassium chloride ER (K-DUR, KLOR-CON) 20 mEq tablet Take 20 mEq by mouth.01/10/2022ctive prazosin (MINIPRESS) 5 mg cap Take 5 mg by mouth once daily.10/16/2021ctive rizatriptan (MAXALT) 5 mg tablet take 1 tablet by mouth AT ONSET OF HEADACHE MAY TAKE A SECOND TAB... (REFER TO PRESCRIPTION NOTES).02/07/2022ctive SUMAtriptan (IMITREX) 100 mg tablet take 1 tablet by mouth if needed to ABORT MIGRAINE once daily 30 DAY SUPPLY 01/02/2022ctive triamcinolone acetonide (NASACORT AQ) 55 mcg nasal inhaler Use 2 Sprays in the nose.06/01/2020Active spironolactone (ALDACTONE) 50 mg tablet Take 50 mg by mouth.02/11/2023ctive atorvastatin calcium (ATORVASTATIN ORAL) Take by mouth once daily.Active sitagliptin phosphate (JANUVIA ORAL) Take by mouth once daily.Active semaglutide (OZEMPIC) 1 mg/dose (4 mg/3 mL) pen Inject 1 mg subcutaneously one time a week.10/05/2024ctive empagliflozin (JARDIANCE) 25 mg tablet Take 25 mg by mouth daily with breakfast.Active ondansetron (ZOFRAN) 8 mg tablet Take 1 tablet by mouth every 8 hours as needed for nausea/vomiting (take 30 minutes prior to narcotic pain medication). 20 tablet tive doxycycline (VIBRA-TABS) 100 mg tablet take 1 tablet by mouth twice a day for 10 days/Discontinued etodolac (LODINE-XL) 500 mg 24 hr tablet take 1 tablet by mouth once daily NEEDED FOR PAIN with food10/20/2021 10/11/2025Discontinued(Course of therapy completed) traZODone HCl 300 mg tablet Take 300 mg by mouth once daily.Discontinued(Discontinued by another Health Care Provider) doxycycline hyclate (VIBRAMYCIN) 100 mg capsule Take 1 capsule by mouth two times a day for 5 days. 10 capsule Expired Active Problems ProblemNoted DateDiagnosed KeqrBvgjjdksfmmyi70/14/2025 Assessment & Plan (10/10/2025 3:44 PM EST): DM type 2 Plan IV antibiotics per ID MRI R foot Vascular arterial studies Monitor BG Restart januvia DVT prophylaxis Assessment & Plan (10/09/2025 2:39 PM EST): DM type 2 Plan IV antibiotics per ID MRI R foot Vascular arterial studies Monitor BG Restart januvia DVT prophylaxis Assessment & Plan (10/08/2025 6:13 PM EST): DM type 2 Plan IV antibiotics MRI R foot ID consult Monitor BG DVT prophylaxis Obesity, Class I, BMI 30-34.91Pain in toes of both feet08/10/2025 Gkbgbdftw15/26/2024 Assessment & Plan (03/20/2024 10:43 AM EDT): Assessment: Ajovy Monthly- Next Dose 03/24 Has rescue medication if needed Class 2 severe obesity due to excess calories with serious comorbidity and body mass index (BMI) of36.0 to 36.9 in adult03/20/2024 Assessment & Plan (03/20/2024 10:47 AM EDT): Assessment: Body mass index is 36.65 kg/m??. Pain in both feet01/22/2024ainful scar11/01/2023Eversion deformity of foot, left3Chronic pain of left ankle07/09/2022cquired dysmorphic toenail 2Difficulty twstwez18/15/2022Diabetes mellitus type 2 with neurological wxgffcvcnkfoaf53/06/2022History of foot vbzlgvx1904/30/2022Hyperkeratosis 04/30/2022Neuritis of left lower blxjyozea30/06/2022Neuralgia of left lower tdtiruecy12/06/2022Encounter for screening for human papillomavirus (HPV) 11/08/2021ncounter for screening for malignant neoplasm of cgyuzp5811/02/2021 Disorder of thyroid, gyrlgetdtgs56/08/2021Gastro-esophageal reflux disease without egksyvotzsd88/08/2021 Assessment & Plan (03/20/2024 10:45 AM EDT): Assessment: Controlled with PPI Irritable bowel syndrome without osfohcsb41/08/2021igarette nicotine dependence without lcthlivpcain54/08/2021 Assessment & Plan (03/20/2024 10:44 AM EDT): Assessment: Smokes 1.5-2 PPD Cut back from 6 PPD in 2020 longterm (current) use of oral hypoglycemic drugs11/01/2021Mild intermittent asthma without drznlymxpeaq96/08/2021 Assessment & Plan (03/20/2024 10:44 AM EDT): Assessment: Stable Albuterol if needed Follows with Family health services Combined pelvic and perineal pain in kwspvv4411/01/2021Tubal ligation status 11/01/2021ontact with and (suspected) exposure to covid-19112/29/2020xcessive and frequent menstruation with regular cycle10/27/2021Other specified postprocedural tcemgq7404/03/2021MI 39.0-39.9,adult02/10/2021Fibromyalgia 02/10/2021 Assessment & Plan (03/20/2024 10:42 AM EDT): Assessment: Controlled with Tylenol Acquired absence of other specified parts of digestive tract02/03/2021 Hyperlipidemia, nbdtspfhxxo87/12/2021 Assessment & Plan (03/20/2024 10:29 AM EDT): Assessment: On Statin Follows with PCP Type 2 diabetes mellitus with diabetic /12/2021ain due to internal orthopedic prosthetic devices, implants and grafts, initial encounter 02/03/2021ain in left foot02/03/2021ain in right foot02/03/2021Tarsal tunnel syndrome of left side02/03/2021Other specified symptoms and signs involving the circulatory and respiratory rhbfzws2601/06/2021Type 2 diabetes /10/2021 Assessment & Plan (03/20/2024 10:41 AM EDT): Assessment: On Trulicity (Sundays) to hold 7 days prior to procedure On Januvia Follows with Family health services To get HGB A1C today Obstructive sleep apnea of adult12/05/2020 Assessment & Plan (03/20/2024 10:45 AM EDT): Assessment: Not currently using CPAP as hers was recalled and she has not gotten a new one yet ESR wseiwq2811/30/2020cute postoperative pain11/25/2020Impaired fasting glucose 11/23/2020Other oernjqagonv20/22/2020 Encounters DateTypeDepartmentCare SjciFmgzwifjfih37/14/2025 9:03 AM EST - 10/11/2025 3:33 PM ESTHospital Encounter Hgdkuuxnh-7E-Njsot/Vascular [address] [facility] [place] [address] Caesar Garzon DO Krasnyansky, Inna, MD Other acute osteomyelitis of right foot (HCC) [M86.171] Discharge Disposition: Home10/08/20257067Pzkyta73/03/2025 9:30 AM ESTOffice Visit Orthopaedics [address] [place] [address] Reji Beltran DPM Post-operative state (Primary Dx)09/27/20256064Cbtnyz93/21/2025 10:15 AM EDTOffice Visit Podiatry [address] [place] [address] Reji Beltran DPM Post-operative state (Primary Dx)09/13/20255212Nvgfqo47/16/2025 9:49 AM EDT Anesthesia Event Ambulatory Surgery [address] [place] [address] P[place] II, 09/09/2025 9:30 AM EDT - 09/09/2025 10:45 AM EDTSurgery Ambulatory Surgery [address] [place] [address] Reji Beltran DPM EXCISION OF NAIL & MATRIX FOR PERMANENT NWHWDHT4309/09/2025 8:18 AM EDT - 09/09/2025 12:09 PM EDTHospital Encounter Ambulatory Surgery [address] [place] [address] Reji Beltran DPM 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], Pain in toes of both feet [M79.674, M79.675], Difficulty walking [R26.2], Pain of toes of both feet [M79.674, M79.675] Discharge Disposition: Home09/09/20254917Nzqqwp13/02/2025 12:40 PM EDTPAT Pre Anesthesia [address] [place] [address] Pre-op evaluation (Primary Dx); Class 2 severe obesity due to excess calories with serious comorbidity and body mass index (BMI) of36.0 to 36.9 in adult; Cigarette nicotine dependence without complication; Mild intermittent asthma without complication ([facility]); Obstructive sleep apnea of adult; Hyperlipidemia, unspecified hyperlipidemia type; Gastro-esophageal reflux disease without esophagitis; Type 2 diabetes mellitus with other specified complication, without long-term current use of insulin (HCC)08/26/20258791Zccxkw66/25/2025 Patient Msg Pre Anesthesia [address] [place] [address] Provider, [facility] appt check in08/11/2025Orders Only Orthopaedics [address] [place] [address] Reji Beltran DPM Acquired dysmorphic toenail (Primary Dx); Pain in toes of both feet; Difficulty walking; Pain of toes of both feet08/10/2025 10:00 AM EDTOffice Visit Podiatry [address] [place] [address] Reji Beltran DPM Type 2 diabetes mellitus with diabetic polyneuropathy, unspecified whether group home insulin use (HCC) (Primary Dx); Difficulty walking; BMI 39.0-39.9,adult; Eversion deformity of foot, left; Painful scar; Acquired dysmorphic toenail; Pain in toes of both feet08/10/2025Telephone Orthopaedics [address] [place] [address] Reji Beltran DPM Surgical Uoatfiku89/16/3689Nyevdl09/13/2025Travelfrom Last 3 Months Social History Tobacco UseTypesPacks/DayYears UsedDateSmoking Tobacco: Every DayCigarettes3.7 25.9Started: 2000Smokeless Tobacco: Never Tobacco Cessation:Ready to Q uit: Not Asked; Counseling Given: Not Answered Comments: Alcohol UseStandard Drinks/WeekCommentsNot Currently0 (1 standard drink = 0.6 oz pure alcohol)PHQ-2AnswerDate RecordedPHQ-2 muupv807UDIT-CAnswerDate RecordedQ1: How often do you have a [...] from getting things needed for daily living?No 11/14/2025Housing Stability Vital SignAnswerDate RecordedIn the last 12 months, was there a time when you were not able to pay the mortgage or rent on time?No 10/08/2025In the past 12 months, how many times have you moved where you were living?t any time in the past 12 months, were you homeless or living in a mcc (including now)?No10/08/2025HC UtilitiesAnswerDate RecordedIn the past 12 months has the [employer], gas, oil, or water [employer] threatened to shut off services in your home?No10/08/2025rea Deprivation IndexAnswerDate Recorded National Score (1-100), lower number is lower rham098509/14/2025State Score (1- 10), lower number is lower xlof215Data from: https://www.neighborhoodatlas.[facility].edu/. Last address used for [address]/14/2025CommentsNoSex and Gender InformationValueDate RecordedSex Assigned at BirthNot on fileLegal SexFemale 01/12/2020 11:36 AM ESTGender IdentityNot on fileSexual OrientationNot on file Last Filed Vital Signs Vital SignReadingTime TakenCommentsBlood Nwckfouo026/7410/11/2025 7:10 AM EST Ttlbb811010/11/2025 7:10 AM KDOKbmdkvcsrkc32.8 ??C (98.2 ??F)10/11/2025 7:10 AM ESTRespiratory Xfva782012/11/2024 7:10 AM ESTOxygen Ltzrztewqf90%10/11/2025 7:10 AM ESTInhaled Oxygen Concentration--Zzduts00.9 kg (207 lb)10/08/2025 8:48 AM EST Bvhndo215.1 cm (5' 5 )10/08/2025 8:48 AM ESTBody Mass Index34.45112/08/2024 8:48 AM EST Plan of Treatment DateTypeDepartmentCare Team (Latest Contact Info)Slesnexizje52/01/2025 9:30 AM ESTOffice Visit Orthopaedics [address] [facility] [address] Reji Beltran DPM [address] [place] [address] Post op 6 wks bilateral toes, SX 09/09/2501 9:30 AM ESTOffice Visit Orthopaedics [address] [place], [place] [id number] Ruby Reji, DPM [address] [place], [place] [id number] Post op 12 wks bilateral toes, SX 09/09/25Health MaintenanceDue DateLast Done CommentsDiabetic Foot Exam1993Dilated Retinal Exam1993Urine Albumin:Creatinine Ratio1993Annual PCP Team Chronic Disease Visit 2001Anxiety Bswkfebta55/28/2001Depression Lcbqaypst25/28/2001HIV Screening 2001Hepatitis C Zzfcpsosi86/28/2001LDL Yqtzmnqnakp60/28/2001Hepatitis B Vaccine (1 of 3 - 19+ 3-dose series)2002Pneumococcal Vaccine (1 of 2 - PCV)2002Cervical Cancer Fpmbhukyt61/28/2004HPV Vaccine (1 - 3-dose SCDM series)2010Covid-19 Vaccine ( - season), 01/17/2022, 02/07/2021, Additional history existsInfluenza Vaccine (#1) 07/26/20257702RrK2U89/15/29874512/09/2024, 08/26/2025, 03/20/2024, Additional history existsMammogram Krwpqctwg19, 06/16/2025DTaP,Tdap,Td Vaccine (2 - Td or Tdap) Procedures Procedure NamePriorityDate/TimeAssociated DiagnosisCommentsGLUCOSE, BLOOD (POC) Bravakz7610/11/2025 11:34 AM EST CREATININE JRSXkbcwqt86/17/2025 8:54 AM EST GLUCOSE, BLOOD (POC)Zswvlye9210/11/2025 8:11 AM EST GLUCOSE, BLOOD (POC)Yeeavvo3710/10/2025 9:11 PM EST MRI FOOT/TOES WO/W IVCON VNKFKXrdqgah08/16/2025 8:58 PM EST MRI FOOT/TOES WO/W IVCON FDIIBmflnod84/16/2025 8:58 PM EST GLUCOSE, BLOOD (POC)Bphwsxy4610/10/2025 12:10 PM EST GLUCOSE, BLOOD (POC)Nzqzzqk3010/10/2025 9:02 AM EST GLUCOSE, BLOOD (POC)Dnpocex4810/09/2025 9:16 PM EST GLUCOSE, BLOOD (POC)Mcgwttb4410/09/2025 5:29 PM EST GLUCOSE, BLOOD (POC)Hgxslww6310/09/2025 11:47 AM EST GLUCOSE, BLOOD (POC)Hlbrohl4710/09/2025 7:51 AM EST CK CREATINE KINASEAdd-on10/09/2025 4:25 AM EST BASIC METABOLIC ZXOGGQqzzvlw77/15/2025 4:25 AM EST COMPLETE BLOOD TCRBFAtdakof51/15/2025 4:25 AM EST HEMOGLOBIN M9PPhvohdf93/15/2025 4:25 AM EST GLUCOSE, BLOOD (POC)Ahzrtxv9410/08/2025 5:34 PM EST C-REACTIVE PROTEIN (CRP)STAT112/08/2024 9:22 AM EST COMPREHENSIVE METABOLIC ODQRASRDM63/ 9:22 AM EST CBC + UUKUMCMX02/14/2025 9:22 AM EST GLUCOSE, BLOOD (POC)Ajhwjxw4510/08/2025 9:17 AM EST SURGICAL DASSECWURQsfksdn78/16/2025 10:25 AM EDT Acquired dysmorphic toenail Pain in toes of both feet Difficulty walking Pain of toes of both feet EXCISION NAIL MATRIX PERMANENT PSEPZWF4909/09/2025 9:44 AM EDT Acquired dysmorphic toenail Pain in toes of both feet Difficulty walking Pain of toes of both feet GLUCOSE, BLOOD (POC)Msqopyq6609/09/2025 8:56 AM EDT HEMOGLOBIN G2GUbvelsu37/02/2025 1:02 PM EDT from Last 3 Months Results * (ABNORMAL) GLUCOSE, BLOOD (POC) (10/11/2025 11:34 AM EST) Only the most recent of12 resultswithin the time period is included. ComponentValueRef RangeTest MethodAnalysis TimePerformed AtPathologist Signature Glucose, Point of Xooa599(A)74 - 99 mg/dLCharles River HospitalComment: Location:[facility], [address] [place] [address], [address] The Accu-Chek Inform II glucose meter has [...] 11:34 AM EST Narrative Authorizing ProviderResult TypeResult StatusInna Kylee MDPOC TESTINGFinal ResultPerforming OrganizationAddressCity/State/ZIP CodePhone Number [facility] PO[facility] [address] [place], [place] * (ABNORMAL) CREATININE BLD (10/11/2025 8:54 AM EST)ComponentValueRef RangeTest MethodAnalysis TimePerformed AtPathologist SignatureCreatinine0.55(L)0.58 - 0.96 mg/dL10/11/2025 10:13 AM ESTHILLCREST LABORATORYEstimated Glomerular Filtration Ajko929>=60 mL/min/1.73m 10/11/2025 10:13 AM ESTHILLCREST LABORATORYComment:Estimated Glomerular [...] VolumeCollection TimeReceived TimeBloodBLOOD SPECIMEN / UnknownVenipuncture / Jxkceac3410/11/2025 8:54 AM EST10/11/2025 9:39 AM EST Narrative Authorizing ProviderResult TypeResult StatusAnuja Pichardo MDLABORATORYFinal ResultPerforming OrganizationAddressCity/State/ZIP CodePhone Number [facility] [address] * MRI FOOT/TOES WO/W IVCON RIGHT (10/10/2025 [...] images: No additional findings. Procedure Note Provider, [facility] [place] - 10/11/2025 * * *Final Report* * * DATE OF EXAM: Oct 10 2025 8:58PM [facility] 0197 - MRI FOOT/TOES WO/W IVCON RT [...] 2025 10:39AM EST Authorizing ProviderResult TypeResult StatusHilary Aguilar MDMRI-PAMAFinal Result * MRI FOOT/TOES WO/W IVCON [...] images: No additional findings. Procedure Note Provider, [facility] - 10/11/2025 * * *Final Report* * * DATE OF EXAM: Oct 10 2025 8:58PM [facility] 0196 - MRI FOOT/TOES WO/W IVCON LT [...] 11 2025 10:45AM EST Authorizing ProviderResult TypeResult StatusAlthea Jeff MDMRI-PAMAFinal Result * (ABNORMAL) HEMOGLOBIN A1C (10/09/2025 4:25 AM EST) Only the most recent of2 resultswithin the time period is included. ComponentValueRef RangeTest MethodAnalysis TimePerformed AtPathologist Signature Hemoglobin A1C7.2(H)4.3 - 5.6 %10/09/2025 7:15 PM [facility] Comment:[place] [employer] Association guidelines indicate that patients with HgbA1c in the range 5.7-6.4% are at increased risk for development of diabetes, and intervention by lifestyle modification may be beneficial. HgbA1c greater or equal to 6.5% is considered diagnostic of diabetes.Estimated Average Xgdqmpg060 mg/dL10/09/2025 7:15 PM [facility] MAIN LABComment:eAG: (Estimated average glucose) is a calculated value from HgbA1c and is community relations representative of the average blood glucose level in the last 2-3 month period.Specimen (Source) Anatomical Location / LateralityCollection Method / VolumeCollection Time Received TimeBloodBLOOD SPECIMEN / UnknownVenipuncture / Dacdycx2810/09/2025 4:25 AM EST10/09/2025 4:36 AM EST Narrative Authorizing ProviderResult TypeResult Petar Pichardo MDLABORATORYFinal ResultPerforming OrganizationAddressCity/State/ZIP CodePhone Number [facility] [address] * CREATINE KINASE/CK (10/09/2025 4:25 AM EST)ComponentValueRef RangeTest Method Analysis TimePerformed AtPathologist BihtfaephUV6882 - 196 U/L112/09/2024 11:06 AM ESTHILLCREST LABORATORYSpecimen (Source)Anatomical Location / Laterality Collection Method / VolumeCollection TimeReceived TimeBloodBLOOD SPECIMEN / UnknownVenipuncture / Bvhyzpm6710/09/2025 4:25 AM EST10/09/2025 4:57 AM EST Narrative Authorizing ProviderResult TypeResult StatusHilaisha Aguilar MDLABORATORYFinal ResultPerforming OrganizationAddressCity/State/ZIP CodePhone Number [facility] [address] * COMPLETE BLOOD COUNT (10/09/2025 4:25 AM EST)ComponentValueRef RangeTest MethodAnalysis TimePerformed AtPathologist SignatureWBC8.543.70 - 11.00 k/uL 10/09/2025 4:48 AM ESTHILLCREST LABORATORYRBC4.303.90 - 5.20 m/uL10/09/2025 4:48 AM ESTHILLCREST YTPMJWFJNHTsanxemjst55.311.5 - 15.5 g/dL10/09/2025 4:48 AM ESTHILLCREST WPKOEGDBBLAexiivmyzp20.136.0 - 46.0 %10/09/2025 4:48 AM EST [facility] FPSUZFKSDDFXX34.380.0 - 100.0 fL10/09/2025 4:48 AM ESTHILLCREST EGVXVPGKFJHXP15.926.0 - 34.0 pg10/09/2025 4:48 AM ESTHILLCREST LABORATORYMCHC 33.230.5 - 36.0 g/dL10/09/2025 4:48 AM ESTHILLCREST LABORATORYRDW-CV13.111.5 - 15.0 %10/09/2025 4:48 AM ESTHILLCREST LABORATORYPlatelet Gflft243508 - 400 k/uL10/09/2025 4:48 AM ESTHILLCREST LABORATORYMPV9.69.0 - 12.7 fL10/09/2025 4:48 AM ESTHILLCREST LABORATORYAbsolute nRBC<0.01<0.01 k/uL10/09/2025 4:48 AM ESTHILLCREST LABORATORYSpecimen (Source)Anatomical Location / Laterality Collection Method / VolumeCollection TimeReceived TimeBloodBLOOD SPECIMEN / UnknownVenipuncture / Bgoecup2210/09/2025 4:25 AM EST10/09/2025 4:36 AM EST Narrative Authorizing ProviderResult TypeResult StatusAnuja Pichardo MDLABORATORYFinal ResultPerforming OrganizationAddressCity/State/ZIP CodePhone Number [facility] [address] [place] [phone], * (ABNORMAL) BASIC METABOLIC PANEL (10/09/2025 4:25 AM EST)ComponentValueRef RangeTest MethodAnalysis TimePerformed AtPathologist XddetucnhBlcdkoq1945 - 99 mg/dL10/09/2025 6:31 AM ESTHILLCREST LABORATORYComment: The [place] Diabetes Association (ADA) provides guidance for cutoff [...] Standards of Medical Care in Diabetes 2016, [place] Diabetes Association. Diabetes Care. 2016.39(Suppl 1). BUN6(L)7 - 21 mg/dL10/09/2025 6:31 AM ESTHILLCREST LABORATORYCreatinine0.53(L) 0.58 - 0.96 mg/dL10/09/2025 6:31 AM [facility] RSPALYCPLAAnumhu931902 - 144 mmol/L112/09/2024 6:31 AM ESTHILLCREST LABORATORYPotassium4.03.7 - 5.1 mmol/L 10/09/2025 6:31 AM [facility] BVWULQBVFFHpytrewu54724 - 107 mmol/L112/09/2024 6:31 AM [facility] IWNBDTPJOMKJ892(L)22 - 30 mmol/L112/09/2024 6:31 AM EST [facility] LABORATORYAnion Sti328 - 15 mmol/L112/09/2024 6:31 AM ESTH[facility]CREST LABORATORYCalcium, Total9.48.5 - 10.2 mg/dL10/09/2025 6:31 AM ESTHILLCREST LABORATORYEstimated Glomerular Filtration Rowb651>=60 mL/min/1.73m 10/09/2025 6:31 AM ESTHILLCREST LABORATORYComment:Estimated Glomerular [...] VolumeCollection TimeReceived TimeBloodBLOOD SPECIMEN / UnknownVenipuncture / Sugmont6410/09/2025 4:25 AM EST10/09/2025 4:57 AM EST Narrative Authorizing ProviderResult TypeResult StatusInjean paul Pichardo MDLABORATORYFinal ResultPerforming OrganizationAddressCity/State/ZIP CodePhone Number [facility] [address] * (ABNORMAL) COMPREHENSIVE METABOLIC PANEL (10/08/2025 9:22 AM EST)Component ValueRef RangeTest MethodAnalysis TimePerformed AtPathologist Signature Protein, Total7.06.3 - 8.0 g/dL10/08/2025 10:14 AM EST[facility] Albumin3.93.9 - 4.9 g/dL10/08/2025 10:14 AM ESTH[facility]CREST LABORATORYCalcium, Total9.08.5 - 10.2 mg/dL10/08/2025 10:14 AM ESTH[facility]CREST LABORATORYBilirubin, Total0.30.2 - 1.3 mg/dL10/08/2025 10:14 AM ESTH[facility]CREST LABORATORYAlkaline Ygmhhrbznrf6612 - 123 U/L112/08/2024 10:14 AM [facility] WXTBVKEPYFPST5340 - 35 U/L112/08/2024 10:14 AM [facility] DFPYCPWJJMXYS898 - 38 U/L112/08/2024 10:14 AM [facility] WIUIBIPRXRPncegti1007 - 99 mg/dL10/08/2025 10:14 AM EST [facility]ORATORYComment: The [place] Diabetes Association (ADA) provides guidance for cutoff [...] Standards of Medical Care in Diabetes 2016, [place] Diabetes Association. Diabetes Care. 2016.39(Suppl 1). BUN3(L)7 - 21 mg/dL10/08/2025 10:14 AM EST[facility]CREST LABORATORYCreatinine0.51(L) 0.58 - 0.96 mg/dL10/08/2025 10:14 AM [facility] PQIRQYVVWUNpopdq297909 - 144 mmol/L112/08/2024 10:14 AM EST[facility] LABORATORYPotassium3.6(L)3.7 - 5.1 mmol/L 10/08/2025 10:14 AM [facility] RYIPCTWGAPDkbyoffm93834 - 107 mmol/L112/08/2024 10:14 AM [facility] FSPOHVFYLVOS429(L)22 - 30 mmol/L112/08/2024 10:14 AM EST [facility] LABORATORYAnion Sxa407 - 15 mmol/L112/08/2024 10:14 AM EST[facility] LABORATORYEstimated Glomerular Filtration Wkqs906>=60 mL/min/1.73m 10/08/2025 10:14 AM EST[facility] LABORATORYComment:Estimated Glomerular [...] VolumeCollection TimeReceived TimeBloodBLOOD SPECIMEN / UnknownVenipuncture / Nicixfg4510/08/2025 9:22 AM EST10/08/2025 9:39 AM EST Narrative Authorizing ProviderResult TypeResult StatusJennifer Donze-Filiatraut DO LABORATORYFinal ResultPerforming OrganizationAddressCity/State/ZIP CodePhone Number [facility] [address] [place] [address], * COMPLETE BLOOD COUNT AND DIFFERENTIAL (10/08/2025 9:22 AM EST)ComponentValue Ref RangeTest MethodAnalysis TimePerformed AtPathologist DxeouwrddIHS92.383.70 - 11.00 k/uL10/08/2025 9:31 AM ESTH[facility]CREST LABORATORYRBC4.293.90 - 5.20 m/uL 10/08/2025 9:31 AM [facility] PKAVQSHCAREnydvfwjqa29.411.5 - 15.5 g/dL 10/08/2025 9:31 AM [facility] XPTEUXXNZDPmgwwxonbm55.436.0 - 46.0 % 10/08/2025 9:31 AM [facility] LPXHYJJDONOAX66.280.0 - 100.0 fL10/08/2025 9:31 AM [facility] OKRRGPUZFLTXS72.226.0 - 34.0 pg10/08/2025 9:31 AM EST [facility] ZCLXTORVABIMAE90.230.5 - 36.0 g/dL10/08/2025 9:31 AM [facility] LABORATORYRDW-CV13.211.5 - 15.0 %10/08/2025 9:31 AM [facility] Platelet [id number] - 400 k/uL10/08/2025 9:31 AM [facility]ORATORYMPV [...] VolumeCollection TimeReceived TimeBloodBLOOD SPECIMEN / UnknownVenipuncture / Rqffuic9110/08/2025 9:22 AM EST10/08/2025 9:26 AM EST Narrative Authorizing ProviderResult TypeResult StatusJennifer Donze-Filiatraut DO LABORATORYFinal ResultPerforming OrganizationAddressCity/State/ZIP CodePhone Number [facility] [address] [place] [address], * (ABNORMAL) C-REACTIVE PROTEIN (10/08/2025 9:22 AM EST)ComponentValueRef Range Test MethodAnalysis TimePerformed AtPathologist SignatureCRP1.1(H)<0.9 mg/dL 10/08/2025 10:14 AM ESTHILLCREST LABORATORYSpecimen (Source)Anatomical Location / LateralityCollection Method / VolumeCollection TimeReceived Time BloodBLOOD SPECIMEN / UnknownVenipuncture / Woqrqcx0510/08/2025 9:22 AM EST 10/08/2025 9:39 AM EST Narrative Authorizing ProviderResult TypeResult StatusJennifer Donze-Filiatraut DO LABORATORYFinal ResultPerforming OrganizationAddressCity/State/ZIP CodePhone Number [facility] [address] [place] [address], * SURGICAL PATHOLOGY (09/09/2025 10:25 AM EDT)ComponentValueRef RangeTest Method Analysis TimePerformed AtPathologist SignatureCase ReportSurgical Pathology Report ? Case: [id number] ? Authorizing Provider: ??Reji Beltran DPM ?Collected: ? 09/09/2025 10:25AM ? Ordering Location: ? Ambulatory Surgery ? Received: ?09/09/2025 01:52PM ? Pathologist: ? Martina Handy MD ? Specimens: ?? A) - Digit, Left Foot, Second, partial ? B) - Digit, Right Foot, Second, partial ? 09/16/2025 12:04 PM [facility] MA[facility] LABFINAL DIAGNOSISA. Digit, second, left foot, partial excision: - Bone and soft tissue with degenerative and reactive changes. B. Digit, second, right foot, partial excision: - Bone and soft tissue with degenerative and reactive changes.09/16/2025 12:04 PM [facility] at [address] EDTGross DescriptionA. Digit, Left Foot, Second Received in formalin labeled digit, left foot, second, partial consist of a portion of distal digit (2.0x 1.5 x 1.4 cm). The segment contains pink rubbery skin, and a thickened brown nail. Sectioning reveals firm yellow-mcmullen bone, and yellow-mcmullen soft tissue. Draw Bench Operator sections are submitted in cassette A1, following decalcification in formic acid. B. Digit, Right Foot, Second Received in formalin labeled Digit, right foot, second of a portion of distal digit (1.9 x 1.5 x 2 cm). The segment contains pink rubbery skin, and thickened brown nail. Sectioning reveals firm yellow bone and yellow-mcmullen soft tissue. Draw Bench Operator sections are submitted in cassette B1, followingdecalcification in formic acid MBB/MLBren 09/10/25 11:24 AM Gross examination at [facility], [address] [place] [address], [id number] 09/16/2025 12:[address] [facility] LABClinical HistoryPre-op diagnosis: 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] Pain in toes of both feet [M79.674, M79.675] Difficulty walking [R26.2] Pain of toes of both feet [M79.674, M79.675] Associated Diagnoses: L60.8 - Acquired dysmorphic toenail M79.674, M79.675 - Pain in toes of both feet R26.2 - Difficulty walking M79.674, M79.675 - Pain of toes of both feet 09/16/2025 12:[address] [facility] LABPerforming LabDiagnostic interpretation performed at: [facility], [address] [place] [address] [id number] CLIA# [id number] Calciner Operator: Sarthak Perez MD 09/16/2025 12:[address] [facility] LABDisclaimerLaboratory Developed Test (LDT) Disclaimer: Performance characteristics of immunohistochemical, immunofluorescent, and chromogenic in-situ hybridization tests have been determined by the performing laboratory within the [facility] Department of Pathology and Laboratory Medicine ([facility], [facility], [facility], [facility], [facility], [facility], or [facility]) in a manner consistent with CLIA requirements. One or more of these tests may not have been cleared or approved by the FDA. The [facility] Department of Pathology and Laboratory Medicineis regulated under CLIA as qualified to perform high-complexity testing. These tests are used for clinical purposes. These should not be regarded as investigational or for research. Positive and negative controls stain appropriately.09/16/2025 12:04 PM EDT [facility] LABSpecimen (Source)Anatomical Location / Laterality Collection Method / VolumeCollection TimeReceived TimeTissueAMPUTATED TOE / Tuxwmlh5009/09/2025 10:25 AM EDT1 1:52 PM EDTComment:Pre-op diagnosis: 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] Pain in toes of both feet [M79.674, M79.675] Difficulty walking [R26.2] Pain of toes of both feet [M79.674, M79.675]Tissue specimen (specimen)AMPUTATED TOE / Oathzxg1709/09/2025 10:25 AM EDT1 1:52 PM EDTComment:Pre-op diagnosis: 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] Pain in toes of both feet [M79.674, M79.675] Difficulty walking [R26.2] Pain of toes of both feet [M79.674, M79.675] Narrative Authorizing ProviderResult TypeResult StatusJohn Ruby DPMSURGICAL PATHOLOGYFinal ResultPerforming OrganizationAddressCity/State/ZIP CodePhone Number [facility] LAB [address] [place] [address], from Last 3 Months Insurance * Guarantor: Glo Ruano NAccount TypeRelation to PatientDate of BirthPhone Billing AddressPersonal/NyrfqrEsxm1985 [id number] [address] Care Teams Team MemberRelationshipSpecialtyStart DateEnd Date O Jamia Escalona MD ReferringOb/Gyn01/12/20
--- OUTSIDE RECORDS SUMMARY | 2025-10-19 12:59 | XMS_ITS ---
Author Name Good Duran Address Unknown Organization [facility] Care Team Providers Care Investor Relations Associate Name Role Phone Unavailable Primary Care Physician Unavailab le History Of Present Illness No Data Medications No data Problems Problem Code Type Status Date of Diagnosis Da te of Resolution Acute osteomyelitis of ankle and/or foot (disorder) 507128767(SN OMED) Diagnosis active 10/09/2025 Acute osteomyelitis of ankle and/or foot (disorder)865995466(SNOMED)Diagnosis xcmawv4310/09/2025 Results No data Encounters Service provided at [facility], [address] [place] [phone]. Office phone number is [phone]. Encounter Diagnosis Location Date / Time Type Acute Osteomyelitis Foot, Bilateral (M86.172,M86.171) [facility] 10/09/2025 14:51:41 [facility] [id number] Reason For Referral No data Procedures Procedure Date Patient encounter procedure (procedure) 10/09/2025 12:00 am [facility] Review Of Systems No Data Assessment 1.Acute Osteomyelitis Foot, BilateralCPT lucerne farmer Plan of Care No data Instructions No Data Social History Code Activity Start Date End Date 136987250 (SNOMED) Unknown if ever smoked SexfemaleSexual orientationDon't KnowGender identityUnspecified Vital Signs No data
--- OUTSIDE RECORDS SUMMARY | 2025-10-19 13:00 | XMS_ITS | Encounter Summary ---
Author Organization [facility] Address [address] [place] [address] Care Team Providers Care Spring Fitter Helper Name Role Phone Rigoberto Montano DO Unavailable Unallocated, Noms Provider Primary Care Provi christopher Encounter Details DateTypeDepartmentCare Team (Latest Contact Info)Iesfmmhaubv62/18/2025Bamboo flowsheet [facility]UD[facility] [address] [place] [address] Rigoberto Montano DO [address] Ramandeep Patterson, [facility] Social History Tobacco UseTypesPacks/DayYears UsedDateSmoking Tobacco: Every DayCigarettes1.523 Smokeless Tobacco: NeverAlcohol UseStandard Drinks/WeekCommentsNever0 (1 standard drink = 0.6 oz pure alcohol)CommentsNoSex and Gender InformationValueDate RecordedSex Assigned at HvzbtCplrtm99/23/2023 11:22 PM EDT Legal UehEfjeqw17/15/2023 11:18 PM EDTGender ExaloslkRbiruy61/15/2023 11:18 PM EDTSexual BrcpzpnyshtYeoczmvy93/23/2023 11:22 PM EDTdocumented as of this encounter Plan of Treatment Not on file documented as of this encounter Visit Diagnoses Not on filedocumented in this encounter Care Teams Team MemberRelationshipSpecialtyStart DateEnd Date Rigoberto Montano DO [address] [place] [address] PCP - [facility]11/25/24 Unallocated, Noms Provider, MD Ethan [address] [place], [place] [id number] PCP - GeneralFamily Medicine06/18/25 Asa Marques PA-C [address] [place] [address] Primary Care ProviderFamily Medicine11/25/22documented as of this encounter
--- OUTSIDE RECORDS SUMMARY | 2025-10-19 13:00 | XMS_ITS | Clinical Summary ---
Author Organization [employer] [facility] tem Address [id number] [place] [address] Care Team Providers Care Crate Maker Name Role Phone Services, [facility] Primary Care Provider Allergies Active AllergyReactionsCriticalityNoted KuarUpequzyaOqizicwkuv71/04/2021 Fezniwsgh32/08/1291Xvegzjrm53/08/2020 Medications MedicationSigDispense QuantityRefillsLast FilledStart DateEnd DateStatus albuterol (PROVENTIL HFA;VENTOLIN HFA) 90 mcg/actuation inhaler Inhale 2 puffs every 6 (six) hours as needed.03/24/2020Active loratadine (CLARITIN) 10 mg tablet Take 10 mg by mouth daily.04/13/2020Active montelukast (SINGULAIR) 10 mg tablet Take 10 mg by mouth daily.04/13/2020Active prazosin (MINIPRESS) 1 mg capsule Take 1 mg by mouth daily.04/05/2020Active propranolol LA (INDERAL LA) 80 mg 24 hr capsule Take 80 mg by mouth daily.02/27/2020Active risperiDONE (RisperDAL) 0.5 mg tablet Take 1 mg by mouth 2 (two) times a day. 04/05/2020Active topiramate (TOPAMAX) 25 mg tablet Take 100 mg by mouth daily. At night 04/27/2020Active traZODone (DESYREL) 100 mg tablet Take 200 mg by mouth nightly.04/05/2020Active triamcinolone (NASACORT) 55 mcg nasal inhaler Administer 2 sprays into each nostril daily. 16.5 g 06/01/2020Active lidocaine (SALONPAS) 4 % Place 1 patch on the skin daily. 10 patch 06/24/2020Active acetaminophen (TylenoL) 325 mg tablet Take 3 tablets (975 mg total) by mouth every 6 (six) hours as needed for pain. 30 tablet 06/24/2020Active metFORMIN (GLUCOPHAGE) 1000 mg tablet Take 1,000 mg by mouth 2 (two) times a day with meals.Active biotin 10,000 mcg capsule Take 1 capsule by mouth daily.11/29/2020ctive SmalldealsTOKAI Pharmaceuticals ULTRA2 METER misc USE DIRECTED to TEST BLOOD SUGAR once daily12/07/2020ctive doxycycline (VIBRAMYCIN) 100 mg capsule Take 100 mg by mouth 2 (two) times a day.01/16/2021ctive cholecalciferol (VITAMIN D3) 50,000 units capsule One capsule weekly for 8 weeks then q.month 12 capsule 03/06/2021ctive omeprazole (PriLOSEC) 20 mg capsule Indications:FibromyalgiaTake 1 capsule (20 mg total) by mouth daily. 30 capsule ctive amitriptyline (ELAVIL) 50 mg tablet Indications:FibromyalgiaOne capsule abed time 90 tablet ctive etodolac (LODINE XL) 500 MG 24 hr tablet Indications:FibromyalgiaOne tablet daily for pain as needed with food 90 tablet ctive pregabalin (LYRICA) 75 mg capsule Indications:FibromyalgiaOne capsule twice daily 180 capsule ctive tiZANidine (ZANAFLEX) 4 mg tablet Indications:FibromyalgiaOne tab at 8:00 p.m.each night 90 tablet ctive Active Problems ProblemNoted DateDiagnosed OsqtWpzlobtkzjbw84/19/2021MI 39.0-39.9,adult 02/10/2021 Family History RelationNameStatusCommentsFatherAliveMotherAlive Social History Tobacco UseTypesPacks/DayYears UsedDateSmoking Tobacco: Every DayCigarettes Smokeless Tobacco: Never Tobacco Cessation:Ready to Q uit: No Alcohol UseStandard Drinks/WeekCommentsNot Currently0 (1 standard drink = 0.6 oz pure alcohol)ChildcareAnswerDate LxccdnhkDjxeovjkyNfqnbbn14/18/2019Employment AnswerDate HbpgrwtcBtaaczbakdBzleczj10/18/2019Purpose - LifeAnswerDate Recorded Purpose and direction in ucazShkfgsr42/13/2021CommentsNoSex and Gender InformationValueDate RecordedSex Assigned at VcqlcUzdqgq11/01/2021 11:23 AM EDT Legal UmmBawtid36/18/2019 12:30 PM ESTGender GogrukuwLoeaoe34/01/2021 11:23 AM EDTSexual EmwfeaagppbYskewvrk10/01/2021 11:23 AM EDT Last Filed Vital Signs Vital SignReadingTime TakenCommentsBlood Hbotzhfi134/7808 8:31 AM EDT Erjxf983406/28/2021 8:31 AM DVIAslqufdfeoo75.2 ??C (97.1 ??F)06/28/2021 8:31 AM EDTRespiratory Tjvz054206/28/2021 8:31 AM EDTOxygen Trujvewcgj949%06/03/2021 2:57 AM EDTInhaled Oxygen Concentration--Tkvwfq908.5 kg (248 lb)08/08/2021 8:39 AM SAHBejuos326.6 cm (5' 6 )06/28/2021 8:31 AM EDTBody Mass Index40.0308 8:31 AM EDT Plan of Treatment Health MaintenanceDue DateLast DoneCommentsDepression Axpwqzqin66/28/1995Tobacco Rnumaweip79/28/1995Adult BMI Lgxrzjqhp57/28/2001DTaP,Tdap and Td Vaccines (1 - Tdap)2002Pap Smear2004Influenza Dpsihqy0407/26/2025 Medical Devices Not on file Insurance Care Teams Team MemberRelationshipSpecialtyStart DateEnd Date Services, [facility] [address] [place], [place] PCP - GeneralFamily Medicine05/05/20
--- OUTSIDE RECORDS SUMMARY | 2025-10-19 13:00 | XMS_ITS | Clinical Summary ---
Author Organization [facility] Address [address] [place] [address] Care Team Providers Care Large Engine Assembler Name Role Phone Rigoberto Montano DO Unavailable Unallocated, Noms Provider MD Primary Care Provi christopher Allergies Active AllergyReactionsCriticalityNoted GanrXsmiaormCmoqhjgkbBlxhm58/08/2020 Other Reaction(s): Dermatitis ??Comments: Hives Other Reaction(s): Anaphylaxis PrednisoneHives,Zitvdgg2606/28/2021 Other Reaction(s): angry rage Other Reaction(s): Agitation, extreme somnolence, Other, Unknown Other Reaction(s): Agitation, extreme somnolence MAKES ME CRAZY TramadolAnaphylaxis,DoyhhorVfnj13/08/2020 Other Reaction(s): Comments: Heart Stops Other Reaction(s): Other, Unknown Other Reaction(s): Anaphylaxis STOPS HEART Medications MedicationSigDispense QuantityRefillsLast FilledStart DateEnd DateStatus cyclobenzaprine (Flexeril) 10 MG tablet 10/04/2022ctive Ajovy 225 MG/1.5ML auto-injector 06/02/2023ctive furosemide (Lasix) 20 MG tablet 06/02/2023ctive citalopram (CeleXA) 20 MG tablet 1 (one) time each day at the same timeActive Ventolin HFA 108 (90 Base) MCG/ACT inhaler 06/02/2023ctive Acetaminophen Extra Strength 500 MG tablet 06/06/2023ctive potassium chloride CR (Klor-Con M20) 20 MEQ ER tablet 03/15/2023ctive omeprazole (PriLOSEC) [address] capsule 1 (one) time each day at the same timeActive montelukast (Singulair) 10 MG tablet Take 10 mg by mouth Daily04/04/2023ctive Boric Acid 600 MG suppository Indications:Yeast infectionInsert 600 mg into the vagina Daily 14 suppository 05/06/2025tive semaglutide (Ozempic) 2 MG/1.5ML solution pen-injector .week11/22/2024ctive Active Problems ProblemNoted DateDiagnosed DatePain of ovary10/12/2025Epidermal inclusion cyst 07/12/2025Left buttock ewxgcvj8607/12/2025Left breast aosxvmx0906/18/2025Mass of upper inner quadrant of left gzvgvy3506/18/2025Mass of ipewhrm2506/18/2025Neoplasm of uncertain behavior of skin of back06/18/2025Type 2 diabetes mellitus without complication, without long-term current use of crlwbqs2806/18/2025 Encounters DateTypeDepartmentCare OktfHxcldzebrwh45/18/2025 10:30 AM ESTConsult [facility] [address] [place] [address] Rigoberto Montano DO Pelvic pain in female; Pre-op examination; Pain of ovary10/12/2025amboo flowsheet [facility] [address] [facility] [place] [address] Rigoberto Montano DO 09/27/20250550Mznojw48/10/2025 2:40 PM EDTOffice Visit [facility] [address] [facility] [place] [address] Iris Samson PA Encounter for egznmuidjhtd68/10/2025amb flowsheet [facility] [address] [facility] [place] [address] Iris Samson PA from Last 3 Months Family History Medical HistoryRelationNameCommentsNo Known ProblemsBrotherNo Known Problems Daughter3 daughtersAsthmaMotherBillie JonesDiabetesMotherBillie JonesHeart diseaseMotherBillie JonesMigrainesMotherBillie JonesRheum arthritisMotherBillie JonesCancerOtherFamily historyCoronary artery diseaseOtherFamily historyDiabetes OtherFamily historyHypertensionOtherFamily historyNo Known ProblemsSister2 sistersNo Known ProblemsSonRelationNameStatusCommentsBrotherDaughterFatherAlive MotherBillie JonesAliveOtherFamily historySisterSon Social History Tobacco UseTypesPacks/DayYears UsedDateSmoking Tobacco: Every DayCigarettes1.523 Smokeless Tobacco: Never Tobacco Cessation:Ready to Q uit: Not Asked; Counseling Given: Not Answered Alcohol UseStandard Drinks/WeekCommentsNever0 (1 standard drink = 0.6 oz pure alcohol)CommentsNoSex and Gender InformationValueDate RecordedSex Assigned at DhuptJbsjtn50/23/2023 11:22 PM EDTLegal FfkOnsidt54/15/2023 11:18 PM EDTGender VcuapkirKvrgat75/15/2023 11:18 PM EDTSexual OrientationStraight 04/16/2023 11:22 PM EDT Last Filed Vital Signs Vital SignReadingTime TakenCommentsBlood Plusnzyn848/7810/12/2025 11:12 AM EST Pulse--Temperature--Respiratory Rate--Oxygen Saturation--Inhaled Oxygen Concentration--Vsovwa51.2 kg (201 lb)10/12/2025 11:12 AM OYOAqhzpc431.6 cm (5' 6 )06/18/2025 9:50 AM EDTBody Mass Index32.44006/18/2025 9:50 AM EDT Plan of Treatment Health MaintenanceDue DateLast DoneCommentsDiabetes: Retinopathy Screening 1993Diabetes: Urine Protein Fclwtwttt89/28/2002Pneumococcal Vaccine: Pediatrics (0 to 5 Years) and At-Risk Patients (6 to 64 Years) (1 of 2 - PCV) 2002COVID-19 Vaccine (2024- season)5002/07/2022, 01/17/2022, 02/07/2021, Additional history existsInfluenza Vaccine (#1)07/26/2025Diabetes: Hemoglobin A1C6112/09/2024, 08/26/2025, 03/20/2024, Additional history vcyfifVytdjmwdu05, 06/16/2025ervical Cancer Screening DiscontinuedPap BrahlKeyxlepgzwir06/30/2025, 12/04/2022HPV/CotestDiscontinued Procedures Procedure NamePriorityDate/TimeAssociated DiagnosisCommentsBI MAMMOGRAM DIAGNOSTIC TOMOSYNTHESIS TZGNJJTBW67/23/2025 2:23 PM EDT PAP GIYVPPkpqaeu71/30/2025 12:00 AM EDTHEMOGLOBIN V7NGdbhgnw99/28/2023 2:08 PM EDT Type 2 diabetes mellitus with other skin complications (HCC) from Last 3 Months or Most Recently Relevant to Health Maintenance Results * Bilateral diagnostic mammogram with tomosynthesis (06/16/2025 2:23 PM EDT) Anatomical RegionLateralityModalityBreastBilateralMammographySpecimen (Source) Anatomical Location / LateralityCollection Method / VolumeCollection Time Received Time06/16/2025 2:23 PM EDT Impressions 06/16/2025 2:28 PM EDT CUTANEOUS THICKENING LEFT BREAST 7:00 QUESTION DUE TO CELLULITIS OR SUBCUTANEOUS PROCESS. RECOMMEND 3 MONTH FOLLOW-UP FOLLOWING WITH ANTIBIOTIC THERAPY. DERMATOLOGICAL CONSULTATION COULD ALSO BE CONSIDERED. ? RESULT CODE: 3 ?Probably Benign Finding Short Term Follow-Up ? DENSITY CODE: 2 (approximately 25-50% glandular) There are scattered areas of fibroglandular density. ? FOLLOW UP: 3M ? The false-negative rate of mammography is approximately 10-percent. ? Management of a palpable abnormality must be based on clinical grounds. ? Impression dictated by: Jan Maddox M.D. ??06/16/2025 2:25 PM ? Dictation Location: [facility] ? Tech: Paola Putnam; Nannette Martin ? Transcribed By: ? PWS ?06/16/25 1425 ? Dictated By: ?Jan Maddox MD ?06/16/25 1423 ? Signed By: <Electronically signed by Jan Maddox MD in OV> ? 06/16/25 1425 Narrative 06/16/2025 2:28 PM EDT [facility] ?[facility] [place] ?[address] ? [place] [address] ? Ultrasound Report ? Signed ? Patient: Glo Ruano N ?MR#: [id number] ?? [id number] ? : 1985 ?Acct:[id number] ? Age/Sex: 40 / F ?ADM Date: 06/16/25 ? Loc: [place] ?Room: ?Type: REG CLI ?? Attending Dr: KIRSTIE Nuno APRN ? Ordering Provider: Rosita Joseph APRN, CNP ?? Date of Service: 06/16/25 ?? MM/MM diagnostic mammo BI w/CAD: N64.4 ?? ([id number]) US/US breast LT limited: ABNORMAL MAMM LEFT ? Copies to: Rosita Joseph APRN, CNP ? DIAGNOSTIC BILATERAL MAMMOGRAM - FULL FIELD DIGITAL WITH TOMOSYNTHESIS ? CLINICAL DATA: ??Pain ? Craniocaudal and mediolateral oblique views of the () breast were obtained using low-dose digital technique. ??Comparison is made to prior studies from 2022. ??This examination was reviewed with the aid of CAD. ? Scattered fibroglandular densities. There are no dominant masses, typically malignant calcifications or architectural distortion. Focal skin asymmetry identified ?? Left breast approximately 12 cm from the nipple. ? Targeted ultrasound was performed which demonstrates ill-defined cutaneous thickening and/or edema worrisome for possible cellulitis ? US/US breast LT limited ?? Procedure Note Radiology, Radiologist, MD - 06/16/2025 [facility] [place] [address] [place] [address] Ultrasound Report Signed Patient: Glo Ruano NMR#: [id number] : 1985Acct:[id number] Age/Sex: 40 / FADM Date: 06/16/25 Loc: [place] Room:Type: [facility] Attending Dr: Rosita Joseph APRN, NP-C Ordering Provider: Rosita Joseph APRN, CNP Date of Service: 06/16/25 MM/MM diagnostic mammo BI w/CAD: N64.4 ([id number]) US/US breast LT limited: ABNORMAL MAMM LEFT Copies to: Rosita Joseph APRN, CNP DIAGNOSTIC BILATERAL MAMMOGRAM - FULL FIELD DIGITAL WITH TOMOSYNTHESIS CLINICAL DATA: Pain Craniocaudal and mediolateral oblique views of the () breast wereobtained using low-dose digital technique. Comparison is made to prior studies from 2022. Thisexamination was reviewed with the aid of CAD. Scattered fibroglandular densities. There are no dominant masses,typically malignant calcifications or architectural distortion. Focal skin asymmetry identified Left breast approximately 12 cm from the nipple. Targeted ultrasound was performed which demonstrates ill-defined cutaneous thickening and/or edema worrisome for possible cellulitis US/US breast LT limited IMPRESSION: CUTANEOUS THICKENING LEFT BREAST 7:00 QUESTION DUE TO CELLULITIS ORSUBCUTANEOUS PROCESS. RECOMMEND 3 MONTH FOLLOW-UP FOLLOWING WITH ANTIBIOTIC THERAPY. DERMATOLOGICALCONSULTATION COULD ALSO BE CONSIDERED. RESULT CODE: 3 Probably Benign Finding Short Term Follow-Up DENSITY CODE: 2 (approximately 25-50% glandular) There are scattered areasof fibroglandular density. FOLLOW UP: 3M The false-negative rate of mammography is approximately 10-percent. Management of a palpable abnormality must be based on clinical grounds. Impression dictated by: Jan Maddox M.D. 06/16/2025 2:25 PM Dictation Location: [facility] Tech: Paola Putnam; Nannette Lordjania Transcribed By: DESHAWN 06/16/25 1425 Dictated By: Jan Maddox MD 06/16/25 1423 Signed By: <Electronically signed by Jan Maddox MD in OV> 06/16/25 1425 Authorizing ProviderResult TypeResult StatusKrjossue Jake NPIMG BI PROCEDURES Final Result * Pap Smear (05/24/2025 12:00 AM EDT)Specimen (Source)Anatomical Location / LateralityCollection Method / VolumeCollection TimeReceived TimeSwabCervical swab / Unknown Narrative Authorizing ProviderResult TypeResult StatusAmy Mali PAL CYTOLOGY ORDERABLES Final ResultPerforming OrganizationAddressCity/State/ZIP CodePhone Number EXTERNAL LAB from Last 3 Months or Most Recently Relevant to Health Maintenance Insurance Care Teams Team MemberRelationshipSpecialtyStart DateEnd Date Rigoberto Montano DO [address] [place] [address] [place] [address] PCP - [facility]11/25/24 Unallocated, Noms Provider, [address] [place], [place] [id number] [facility] - [facility]25 Asa Marques PA-C [address] [place] [address] Primary Care ProviderFamalden hospital Medicine11/25/22
--- OUTSIDE RECORDS SUMMARY | 2025-10-19 13:00 | XMS_ITS | Clinical Summary ---
Author Organization [facility] Address [address] 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 Role Phone Rigoberto Montano DO Unavailable [phone] Krystal Koehler MD Unavailable Krystal Koehler MD Primary Care Provider [phone] Allergies Active AllergyReactionsCriticalityNoted CwhxMazxqjvcYtumddfenIpakd41/08/2020 Other Reaction(s): Dermatitis Comments: Hives PrednisoneHives,Other,Kndcgqa5806/28/2021 Other Reaction(s): angry rage TramadolAnaphylaxis,Other,UnpifqgGfbh95/08/2020 Other Reaction(s): Comments: Heart Stops Medications MedicationSigDispense QuantityRefillsLast FilledStart DateEnd DateStatus albuterol 90 mcg/actuation aerosol powdr breath activated inhaler Inhale 2 puffs every 4 hours.Active fluticasone (Flovent HFA) 110 mcg/actuation inhaler Inhale 1 puff 2 times a day. Rinse mouth with water after use to reduce aftertaste and incidence ofcandidiasis. Do not swallow.Active furosemide (Lasix) 20 mg tablet Indications:Primary hypertensionTake 1 tablet (20 mg) by mouth once daily. 90 tablet ctive Additional Information Patient not taking.Informant: Self, Reported on 10/07/2025 spironolactone (Aldactone) 50 mg tablet Indications:Primary hypertensionTake 1 tablet (50 mg) by mouth once daily. 90 tablet /6Active Additional Information Patient not taking.Informant: Self, Reported on 10/07/2025 albuterol 90 mcg/actuation inhaler Indications:Exacerbation of asthma, unspecified asthma severity, unspecified whether persistent (HHS-HCC)Inhale 2 puffs every 4 hours if needed for wheezing. 18 g 5Active sodium chloride (Cameron) 0.65 % nasal spray Indications:Exacerbation of asthma, unspecified asthma severity, unspecified whether persistent (HHS-HCC)Administer 1 spray into each nostril if needed for congestion. 30 mL /6Active Additional Information Patient not taking.Informant: Self, Reported on 10/07/2025 acetaminophen (Tylenol) 325 mg tablet Indications:Pain in toes of both feetTake 3 tablets (975 mg) by mouth every 8 hours if needed for mild pain (1 - 3). 30 tablet /5Active fremanezumab (Ajovy Autoinjector) 225 mg/1.5 mL auto-injector Inject 1 Pen (225 mg) under the skin every 30 (thirty) days.10/07/2025 Discontinued(Entered in Error) citalopram (CeleXA) 20 mg tablet Take 1 tablet (20 mg) by mouth once daily.10/07/2025Discontinued(Entered in Error) loratadine (Claritin Reditabs) 10 mg disintegrating tablet Dissolve 1 tablet (10 mg) in the mouth once daily.10/07/2025Discontinued(Entered in Error) SITagliptin phosphate (Januvia) 100 mg tablet Take 1 tablet (100 mg) by mouth once daily.10/07/2025Discontinued(Entered in Error) omeprazole OTC (PriLOSEC OTC) 20 mg EC tablet Take 1 tablet (20 mg) by mouth once daily in the morning. Take before meals. Do not crush, chew, orsplit.10/07/2025Discontinued(Entered in Error) rizatriptan (Maxalt) 5 mg tablet Take 1 tablet (5 mg) by mouth 1 time if needed for migraine. May repeat in 2 hours if unresolved. Do not exceed 30 mg in 24 hours.10/07/2025Discontinued (Entered in Error) rOPINIRole (Requip) 1 mg tablet Take 1 tablet (1 mg) by mouth 3 times a day.10/07/2025Discontinued(Entered in Error) cariprazine (Vraylar) 4.5 mg capsule Take 1 capsule (4.5 mg) by mouth once daily.10/07/2025Discontinued(Entered in Error) empagliflozin (Jardiance) 25 mg Take 1 tablet (25 mg) by mouth once daily.10/07/2025Discontinued(Entered in Error) semaglutide (Ozempic) 0.25 mg or 0.5 mg(2 mg/1.5 mL) pen injector Inject under the skin 1 (one) time per week.10/07/2025Discontinued(Entered in Error) Active Problems ProblemNoted DateDiagnosed DateOsteomyelitis of right foot, unspecified type 10/06/2025Pain in toes of both feet10/06/20259491Bfaxhzympuf03/17/2025Preop cardiovascular exam07/06/2024MI 33.0-33.9,adult03/23/20243124Iglhms99/29/2024 Mpmdtgqqapsxte73/29/2024Medication course zvccplk4703/23/2024bnormal EKG 12/30/20238433Sqnfeq17/05/2024iabetes mellitus type II, non insulin dependent 12/30/2023Shortness of vcweao8312/30/2023rimary xiuwzwwlaazi02/05/2024Migraine 12/30/2023 Resolved Problems ProblemNoted DateDiagnosed DateResolved DateLipid nfsuygiow70/17/94452601/11/2025 Encounters DateTypeDepartmentCare TeitKxkwmbrujko68/13/7217Johlbn48/12/2025 5:42 PM EST - 10/07/2025 1:23 PM ESTHospital Encounter [facility] Emergency Medicine [address] [place] [address] [facility] Josephine Martell Kiran A, MD MPH Bonilla, MD Arlene Osteomyelitis of right foot, unspecified type (Multi) (Primary Dx); Pain in toes of both feet Discharge Disposition: Against Medical Iduxay0410/06/2025 5:35 PM ESTClinical Support [facility] Medicine [address] [place] [address] 09/28/2025Patient Risk Score ACO Care Management [address] [place] [address] 08/28/2025Patient Risk Score ACO Care Management [address] [place] [address] 07/29/2025Patient Risk Score ACO Care Management [address] [place] [address] 07/28/2025 3:50 PM EDTClinical Support [facility] Emergency Medicine [address] [place] [address] 07/28/2025 3:23 PM EDT - 07/28/2025 6:52 PM EDTEmergency [facility] [address] [place] [address] Shortness of breath (Primary Dx); Exacerbation of asthma, unspecified asthma severity, unspecified whether persistent ([facility]); Upper respiratory tract infection, unspecified type Discharge Disposition: Home07/28/2025 3:00 PM EDTClinical Support [facility] Medicine [address] [place] [address] 07/28/2025Travelfrom Last 3 Months Immunizations ImmunizationAdministration DatesNext DueTdap vaccine, age 7 year and older (BOOSTRIX, ADACEL)02/07/2022 Family History Medical HistoryRelationNameCommentsDiabetes type IMotherHyperlipidemiaMother HypertensionMothercardiac disoederMotherRelationNameStatusCommentsMother Social History Tobacco UseTypesPacks/DayYears UsedDateSmoking Tobacco: Some DaysCigarettes Smokeless Tobacco: Never Tobacco Cessation:Ready to Q uit: Not Asked; Counseling Given: Not Answered Alcohol UseStandard Drinks/WeekCommentsNever0 (1 standard drink = 0.6 oz pure alcohol)CommentsUnknownSex and Gender InformationValueDate RecordedSex Assigned at BirthNot on fileLegal TvgPxxnsh27/10/2023 12:55 PM ESTGender IdentityNot on fileSexual OrientationNot on file Last Filed Vital Signs Vital SignReadingTime TakenCommentsBlood Pdpabycn061/7610/07/2025 5:33 AM EST Mauel500410/07/2025 5:33 AM EOQVcsngwebass84.6 ??C (97.9 ??F)10/07/2025 5:33 AM ESTRespiratory Eado767112/07/2024 5:33 AM ESTOxygen Otltpjxgyo41%10/07/2025 5:33 AM ESTInhaled Oxygen Concentration--Lyzkzo35.3 kg (210 lb)10/06/2025 5:26 PM EST Aptgrw836.1 cm (5' 5 )10/06/2025 5:26 PM ESTBody Mass Index34.9510/06/2025 5:26 PM EST Plan of Treatment DateTypeDepartmentCare Team (Latest Contact Info)Hmqmygfsfpo61/02/2026 10:00 AM ESTOffice Visit [facility] [address] [facility] [address] [place] [address] Krystal Koehler MD [address] [facility] [address] [place], [place] [phone] Health MaintenanceDue DateLast DoneCommentsDiabetes: Urine Protein Screening 1983HIV Mmbwjuggl1983Lipid Panel1983MMR Vaccines (1 of 1 - Standard series)1984Diabetes: Retinopathy Jnirprxvz47/28/1993Hepatitis C Umfhjbkas59/28/2001Hepatitis B Vaccines (1 of 3 - 19+ 3-dose series)2002 Pneumococcal Vaccine: Pediatrics and At-Risk Adult Patients (1 of 2 - PCV) 2002HPV/Tirsnv4905/22/2004HPV Vaccines (1 - 3-dose standard series) 2010Influenza Vaccine (#1)5COVID-19 Vaccine ( - season) 503/, 2Diabetes: Hemoglobin A1C01/610/12/2024, 03/20/2024Yearly Adult Fudbexti93/6005/24/20256326Pgnacifvu83/23/2026 06/16/2025, 06/16/2025, 06/16/2025ervical Cancer Jrmcpfpfd67/30/2028Pap Smear 8005/24/2025, 3DTaP/Tdap/Td Vaccines (2 - Td or Tdap)02/08/2032 02/07/2022Zoster Vaccines (1 of 2)2033HIB VaccinesAged OutNo longer eligible based on patient's age to complete this topicHepatitis A VaccinesAged OutNo longer eligible based on patient's age to complete this topicIPV Vaccines Aged OutNo longer eligible based on patient's age to complete this topic Meningococcal VaccineAged OutNo longer eligible based on patient's age to complete this topicRotavirus VaccinesAged OutNo longer eligible based on patient's age to complete this topic Procedures Procedure NamePriorityDate/TimeAssociated DiagnosisCommentsPOCT GLUCOSERoutine 10/07/2025 6:41 AM EST MANUAL PSTXXOGGPQTOKgjlfwf68/13/2025 5:30 AM EST C-REACTIVE PROTEINAdd-On10/07/2025 5:30 AM EST SEDIMENTATION RATE, AUTOMATEDAdd-On10/07/2025 5:30 AM EST CBC WITH AUTO JIISYVAZAWSSQtqgqbj51/13/2025 5:30 AM EST FDVPBGRUMMsrpdza22/13/2025 5:30 AM EST RENAL FUNCTION DOHRDSdeepyx38/13/2025 5:30 AM EST BLOOD GAS VENOUS FULL YNCYYFWIQ11/12/2025 7:28 PM EST SERIAL TROPONIN, 1 JGABIAHU66/10/2025 7:28 PM EST XR TOE RIGHT 2+ ATZBVCHNK38/12/2025 7:14 PM EST XR TOE LEFT 2+ PQLDDEAPE49/12/2025 7:14 PM EST FYRPKAELWBXMYC57/12/2025 5:55 PM EST MAGNESIUMAdd-On10/06/2025 5:55 PM EST SERIAL TROPONIN-KNMDEMXGEPY93/12/2025 5:55 PM EST TROPONIN SERIES- (INITIAL, 1 HR)STAT112/06/2024 5:55 PM EST COMPREHENSIVE METABOLIC WYFKGQAOS64/12/2025 5:55 PM EST CBC WITH AUTO XYWMQARELHYLOGAD35/12/2025 5:55 PM EST ECG 12-HDXFLDDM19/12/2025 5:33 PM EST XR CHEST 2 PBBWXRXJQ66/03/2025 5:21 PM EDT MANUAL ZRMBRTIWVXPIERPQ17/03/2025 4:43 PM EDT PATH REVIEW-CBC XLZIRJKTTRRAWglouea97/03/2025 4:43 PM EDT BLOOD GAS HDBTOVKMOJ44/03/2025 4:43 PM EDT COMPREHENSIVE METABOLIC TFHPNXCOT80/03/2025 4:43 PM EDT CBC WITH AUTO USWNRJXPTAOAJCVH97/03/2025 4:43 PM EDT D-DIMER, VTE QFJHFPFWOIDUG27/03/2025 4:43 PM EDT POCT TFDMHPWXsnbdhl59/03/2025 3:50 PM EDT SARS-COV-2 AND INFLUENZA A/B RAJPRJX7507/28/2025 3:50 PM EDT ECG 12-BYRBRDIW62/03/2025 3:48 PM EDT from Last 3 Months Results * POCT GLUCOSE (10/07/2025 6:41 AM EST)ComponentValueRef RangeTest Method Analysis TimePerformed AtPathologist SignaturePOCT Rxvfmik9764 - 99 mg/dL 10/07/2025 6:42 AM [facility] LABSpecimen (Source)Anatomical Location / LateralityCollection Method / VolumeCollection TimeReceived TimeBloodCapillary blood specimen / Rhylvtx6110/07/2025 6:41 AM EST10/07/2025 6:42 AM EST Narrative Authorizing ProviderResult TypeResult StatusYohan Burton MD MPHLAB POINT OF CARE TEST DOCKED DEVICE UNSOLICITED RESULTSFinal ResultPerforming Organization AddressCity/State/[place] [address] * (ABNORMAL) CBC and Auto Differential (10/07/2025 5:30 AM EST) Only the most recent of3 resultswithin the time period is included. ComponentValueRef RangeTest MethodAnalysis TimePerformed AtPathologist Signature WBC10.04.4 - 11.3 x10*3/uL LAB HEMATOLOGY METHOD 10/07/2025 6:12 AM [facility] LABnRBC0.00.0 - 0.0 /100 WBCs LAB HEMATOLOGY METHOD 10/07/2025 6:12 AM [facility] LABRBC3.99(L)4.00 - 5.20 x10*6/uL LAB HEMATOLOGY METHOD 10/07/2025 6:12 AM [facility] YNOYoofkjakqh46.312.0 - 16.0 g/dL LAB HEMATOLOGY METHOD 10/07/2025 6:12 AM [facility] QISIghyyprjil50.6(L)36.0 - 46.0 % LAB HEMATOLOGY METHOD 10/07/2025 6:12 AM [facility] MHEHNN4031 - 100 fL LAB HEMATOLOGY METHOD 10/07/2025 6:12 AM [facility] WTSHEL43.826.0 - 34.0 pg LAB HEMATOLOGY METHOD 10/07/2025 6:12 AM [facility] UQYCYOF44.632.0 - 36.0 g/dL LAB HEMATOLOGY METHOD 10/07/2025 6:12 AM [facility] RWOERG70.811.5 - 14.5 % LAB HEMATOLOGY METHOD 10/07/2025 6:12 AM [facility] RZFHiujhaqkg149721 - 450 x10*3/uL LAB HEMATOLOGY METHOD 10/07/2025 6:12 AM [facility] LABImmature Granulocytes %, Automated0.10.0 - 0.9 % LAB HEMATOLOGY METHOD 10/07/2025 6:12 AM [facility] LABComment:Immature Granulocyte Count (IG) includes promyelocytes, myelocytes and metamyelocytes but does not include bands. Percent differential counts (%) should be interpreted in the context of the absolute c ell counts (cells/UL).Immature Granulocytes Absolute, Automated0.010.00 - 0.70 x10*3/uL LAB HEMATOLOGY METHOD 10/07/2025 6:12 AM [facility] LABSpecimen (Source)Anatomical Location / Laterality Collection Method / VolumeCollection TimeReceived TimeBloodVenous blood specimen / UnknownVenipuncture / Ifijdzd2710/07/2025 5:30 AM EST10/07/2025 5:44 AM EST Narrative [facility] - 10/07/2025 6:12 AM EST The [...] BEGUM BLOOD ORDERABLESFinal ResultPerforming OrganizationAddressCity/State/ZIP CodePhone Number [facility] [address] [phone] * (ABNORMAL) Manual Differential (10/07/2025 5:30 AM EST) Only the most recent of2 resultswithin the time period is included. ComponentValueRef RangeTest MethodAnalysis TimePerformed AtPathologist Signature Neutrophils %, Fmfvvn15.240.0 - 80.0 %10/07/2025 6:12 AM ESTGUTHRIE CLINIC LABComment: Percent differential counts (%) should be interpreted in the context of the absolute cell counts (cells/uL).Bands %, Manual0.00.0 - 5.0 %10/07/2025 6:12 AM [facility] LABLymphocytes %, Krewag91.613.0 - 44.0 %10/07/2025 6:12 AM [facility] LABMonocytes %, Manual4.32.0 - 10.0 %10/07/2025 6:12 AM [facility] LABEosinophils %, Manual0.90.0 - 6.0 %10/07/2025 6:12 AM [facility] LABBasophils %, Manual0.00.0 - 2.0 %10/07/2025 6:12 AM [facility] LABAtypical Lymphocytes %, Manual0.00.0 - 2.0 %10/07/2025 6:12 AM [facility] LABMetamyelocytes %, Manual0.00.0 - 0.0 %10/07/2025 6:12 AM [facility] LABMyelocytes %, Manual0.00.0 - 0.0 %10/07/2025 6:12 AM EST [facility] LABPlasma Cells %, Manual0.00.00 - 0.00 %10/07/2025 6:12 AM [facility] LAB Promyelocytes %, Manual0.00.0 - 0.0 %10/07/2025 6:12 AM [facility] LABBlasts %, Manual0.00.0 - 0.0 %10/07/2025 6:12 AM [facility] LABOthers %, Manual0.0% 10/07/2025 6:12 AM [facility] LABSeg Neutrophils Absolute, Manual3.621.20 - 7.00 x10*3/uL11/ 6:12 AM [facility] LABBands Absolute, Manual0.000.00 - 0.70 x10*3/10/07/2025 6:12 AM [facility] LABLymphocytes Absolute, Manual5.86(H)1.20 - 4.80 x10*3/10/07/2025 6:12 AM [facility] LABMonocytes Absolute, Manual0.430.10 - 1.00 x10*3/10/07/2025 6:12 AM [facility] LABEosinophils Absolute, Manual0.090.00 - 0.70 x10*3/10/07/2025 6:12 AM [facility] LABBasophils Absolute, Manual0.000.00 - 0.10 x10*3/10/07/2025 6:12 AM [facility] LABAtypical Lymphs Absolute, Manual 0.000.00 - 0.50 x10*3/10/07/2025 6:12 AM [facility] LABMetamyelocytes Absolute, Manual0.000.00 - 0.00 x10*3/10/07/2025 6:12 AM [facility] LABMyelocytes Absolute, Manual0.000.00 - 0.00 x10*3/10/07/2025 6:12 AM [facility] LABPlasma Cells Absolute, Manual0.000.00 - 0.00 x10*3/10/07/2025 6:12 AM [facility] LAB Promyelocytes Absolute, Manual0.000.00 - 0.00 x10*3/10/07/2025 6:[address] [facility] LABBlasts Absolute, Manual0.000.00 - 0.00 x10*3/10/07/2025 6:[address] [facility] LABOthers Absolute, Manual0.00x10*3/10/07/2025 6:12 AM [facility] LABTotal Cells Bhwaatc15529 6:12 AM [facility] LABNeutrophils Absolute, Manual3.62 1.20 - 7.70 x10*3/10/07/2025 6:12 AM [facility] LABManual nRBC per 100 Cells0.0 0.0 - 0.0 %10/07/2025 6:12 AM [facility] LABRBC MorphologySee Below10/07/2025 6:12 AM [facility] EBUCxjoxudzflmhkXqmu55/13/2025 6:12 AM [facility] LABTarget CellsFew 10/07/2025 6:12 AM [facility] LABSpecimen (Source)Anatomical Location / Laterality Collection Method / VolumeCollection TimeReceived TimeBloodVenous blood specimen / UnknownVenipuncture / Ounpxbj1710/07/2025 5:30 AM EST10/07/2025 5:44 AM EST Narrative Authorizing ProviderResult TypeResult StatusHolly BEGUM BLOOD ORDERABLESFinal ResultPerforming OrganizationAddressCity/State/ZIP CodePhone Number [facility] [phone] [place] [phone] * Sedimentation Rate (10/07/2025 5:30 AM EST)ComponentValueRef RangeTest Method Analysis TimePerformed AtPathologist SignatureSedimentation Dmrl374 - 20 mm/h LAB HEMATOLOGY METHOD 10/07/2025 8:34 AM [facility] LABSpecimen (Source)Anatomical Location / Laterality Collection Method / VolumeCollection TimeReceived TimeBloodVenous blood specimen / UnknownVenipuncture / Zmhppjn4710/07/2025 5:30 AM EST10/07/2025 5:44 AM EST Narrative Authorizing ProviderResult TypeResult StatusHolly BEGUM BLOOD ORDERABLESFinal ResultPerforming OrganizationAddressty/State/ZIP CodePhone Number [facility] [phone] [place] [phone] * (ABNORMAL) C-reactive protein (10/07/2025 5:30 AM EST)ComponentValueRef Range Test MethodAnalysis TimePerformed AtPathologist SignatureC-Reactive Protein 1.37(H)<1.00 mg/dL LAB CHEMISTRY METHOD 10/07/2025 7:29 AM [facility] LABSpecimen (Source)Anatomical Location / Laterality Collection Method / VolumeCollection TimeReceived TimeBloodVenous blood specimen / UnknownVenipuncture / Seqpnou8110/07/2025 5:30 AM EST10/07/2025 5:44 AM EST Narrative Authorizing ProviderResult TypeResult StatusHolly Rowe MDNESS [facility] BLOOD ORDERABLESFinal ResultPerforming OrganizationAddressCity/State/ZIP CodePhone Number [facility] [address] [place] [phone] * Magnesium (10/07/2025 5:30 AM EST) Only the most recent of2 resultswithin the time period is included. ComponentValueRef RangeTest MethodAnalysis TimePerformed AtPathologist Signature Magnesium1.731.60 - 2.40 mg/dL LAB CHEMISTRY METHOD 10/07/2025 6:16 AM [facility] LABSpecimen (Source)Anatomical Location / Laterality Collection Method / VolumeCollection TimeReceived TimeBloodVenous blood specimen / UnknownVenipuncture / Udptixs4110/07/2025 5:30 AM EST10/07/2025 5:44 AM EST Narrative Authorizing ProviderResult TypeResult StatusHolly Rowe MDNESS [facility] BLOOD ORDERABLESFinal ResultPerforming OrganizationAddressCity/State/ZIP CodePhone Number [facility] [address] [place] [phone] * (ABNORMAL) Renal Function Panel (10/07/2025 5:30 AM EST)ComponentValueRef RangeTest MethodAnalysis TimePerformed AtPathologist GqypqjnihMbpiyuj402(H)74 - 99 mg/dL LAB CHEMISTRY METHOD 10/07/2025 6:16 AM [facility] QKSMkzxrv697429 - 145 mmol/L LAB CHEMISTRY METHOD 10/07/2025 6:16 AM [facility] LABPotassium3.2(L)3.5 - 5.3 mmol/L LAB CHEMISTRY METHOD 10/07/2025 6:16 AM [facility] JOIMidjyoys648(H)98 - 107 mmol/L LAB CHEMISTRY METHOD 10/07/2025 6:16 AM [facility] QRKKzcssipkxqy2932 - 32 mmol/L LAB CHEMISTRY METHOD 10/07/2025 6:16 AM [facility] LABComment:Bicarbonate results may be falsely elevated when Lactate Dehydrogenase (LDH) concentrations exceed 2,000 U/L due to a temporary reagent manufacturing issue. If significantly elevated LDH levels are suspected, interpret bicarbonate results with caution, correlate with the patient???s clinical status, and consider confirming CO2 values using a blood gas analyzer.Anion Vkv2399 - 20 mmol/L LAB CHEMISTRY METHOD 10/07/2025 6:16 AM [facility] LABUrea Vvzhcken53 - 23 mg/dL LAB CHEMISTRY METHOD 10/07/2025 6:16 AM [facility] LABCreatinine0.46(L)0.50 - 1.05 mg/dL LAB CHEMISTRY METHOD 10/07/2025 6:16 AM [facility] LABeGFR>90>60 mL/min/1.73m*2 LAB CHEMISTRY METHOD 10/07/2025 6:16 AM [facility] LABComment: Calculations of estimated GFR are performed using the 2020 CKD-EPI Study Refit equation without therace variable for the IDMS-Traceable creatinine methods. https://jasn.asnjournals.org/content/early//ASN.1464633486 Calcium8.4(L)8.6 - 10.6 mg/dL LAB CHEMISTRY METHOD 10/07/2025 6:16 AM [facility] LABPhosphorus3.32.5 - 4.9 mg/dL LAB CHEMISTRY METHOD 10/07/2025 6:16 AM [facility] LABAlbumin3.63.4 - 5.0 g/dL LAB CHEMISTRY METHOD 10/07/2025 6:16 AM [facility] LABSpecimen (Source)Anatomical Location / Laterality Collection Method / VolumeCollection TimeReceived TimeBloodVenous blood specimen / UnknownVenipuncture / Cbxxknj2410/07/2025 5:30 AM EST10/07/2025 5:44 AM EST Narrative Authorizing ProviderResult TypeResult StatusHolly BEGUM BLOOD ORDERABLESFinal ResultPerforming OrganizationAddressCity/State/ZIP CodePhone Number [facility] [address] [phone] * Troponin, High Sensitivity, 1 Hour (10/06/2025 7:28 PM EST)ComponentValueRef RangeTest MethodAnalysis TimePerformed AtPathologist SignatureTroponin I, High Sensitivity (CMC)<30 - 34 ng/L LAB IMMUNOASSAY METHOD 10/06/2025 8:09 PM [facility] LABSpecimen (Source)Anatomical Location / Laterality Collection Method / VolumeCollection TimeReceived TimeBloodVenous blood specimen / UnknownVenipuncture / Jeagekx6610/06/2025 7:28 PM EST10/06/2025 7:52 PM EST Narrative [facility] - 10/06/2025 8:09 PM EST Less [...] performed using a different testing methodology at [facility] than at other legacy [facility]. Direct result comparisons should only be made within the same method. Authorizing ProviderResult TypeResult StatusHolly Rowe MDNESS [facility] BLOOD ORDERABLESFinal ResultPerforming OrganizationAddressCity/State/ZIP CodePhone Number [facility] [address] [phone] * (ABNORMAL) Blood Gas Venous Full Panel (10/06/2025 7:28 PM EST)ComponentValue Ref RangeTest MethodAnalysis TimePerformed AtPathologist SignaturePOCT pH, Venous7.45(H)7.33 - 7.43 pH10/06/2025 7:31 PM ESTGUTHRIE CLINIC LABPOCT pCO2, Tvandn10 (L)41 - 51 mm Hg10/06/2025 7:31 PM [facility] LABPOCT pO2, Zozzat2141 - 45 mm Hg 10/06/2025 7:31 PM [facility] LABPOCT SO2, Ecfacg6276 - 75 %10/06/2025 7:31 PM [facility] LABPOCT Oxy Hemoglobin, Gnaaen01.545.0 - 75.0 %10/06/2025 7:31 PM EST [facility] LABPOCT Hematocrit Calculated, Vydcnz08.036.0 - 46.0 %10/06/2025 7:31 PM [facility] LABPOCT Sodium, Yiqlsq325833 - 145 mmol/L112/06/2024 7:31 PM [facility] LABPOCT Potassium, Venous3.3(L)3.5 - 5.3 mmol/L112/06/2024 7:31 PM [facility] LAB POCT Chloride, Oartup163(H)98 - 107 mmol/L112/06/2024 7:31 PM [facility] LABPOCT Ionized Calicum, Venous1.111.10 - 1.33 mmol/L112/06/2024 7:31 PM [facility] LAB POCT Glucose, Aeqmtf0559 - 99 mg/dL10/06/2025 7:31 PM [facility] LABPOCT Lactate, Venous1.60.4 - 2.0 mmol/L112/06/2024 7:31 PM [facility] LABPOCT Base Excess, Venous3.5(H)-2.0 - 3.0 mmol/L112/06/2024 7:31 PM [facility] LABCT HCO3 Calculated, Xgsugy62.8(H)22.0 - 26.0 mmol/L112/06/2024 7:31 PM [facility] LABCT Hemoglobin, Psnbqy12.912.0 - 16.0 g/dL10/06/2025 7:31 PM [facility] LABPOCT Anion Gap, Venous7.0(L)10.0 - 25.0 mmol/L112/06/2024 7:31 PM [facility] LAB Patient Beznwcoqicu48.0degrees Wtrzrqy1410/06/2025 7:31 PM [facility] LABComment: NOTE: Patient Results are Not Corrected for BfrrphoscuzDjS369%10/06/2025 7:31 PM [facility] LABSpecimen (Source)Anatomical Location / LateralityCollection Method / VolumeCollection TimeReceived TimeBloodVenous blood specimen / UnknownVenipuncture / Tcqtozg2610/06/2025 7:28 PM EST10/06/2025 7:28 PM EST Narrative Authorizing ProviderResult TypeResult StatusHolly BEGUM BLOOD ORDERABLESFinal ResultPerforming OrganizationAddressCity/State/ZIP CodePhone Number [facility] [address] [address] * XR toe left 2+ views (10/06/2025 [...] Badillo 10/06/2025 8:05 PM Dictation workstation: ?? [id number] Narrative 10/06/2025 8:05 PM EST Interpreted By: Audra Badillo and Mercado Amiel STUDY: XR TOE LEFT 2+ VIEWS; XR TOE RIGHT 2+ VIEWS; ; ??10/06/2025 7:14 pm ?? INDICATION: Signs/Symptoms:second toe. ? COMPARISON: None. ?? ACCESSION NUMBER(S): [id number]; [id number] ?? ORDERING CLINICIAN: HOLLY ROWE ?? FINDINGS: [...] INDICATION: Signs/Symptoms:second toe. COMPARISON: None. ACCESSION NUMBER(S): [id number]; [id number] ORDERING CLINICIAN: HOLLY ROWE FINDINGS: Three views [...] Audra Badillo 10/06/2025 8:05 PM Dictation workstation: [id number] Authorizing ProviderResult TypeResult StatusHolly Rowe MDIMG XR PROCEDURES Final Result * XR toe right 2+ views (10/06/2025 [...] Badillo 10/06/2025 8:05 PM Dictation workstation: ?? [id number] Narrative 10/06/2025 8:05 PM EST Interpreted By: Audra Badillo and Mercado Amiel STUDY: XR TOE LEFT 2+ VIEWS; XR TOE RIGHT 2+ VIEWS; ; ??10/06/2025 7:14 pm ?? INDICATION: Signs/Symptoms:second toe. ? COMPARISON: None. ?? ACCESSION NUMBER(S): [id number]; [id number] ?? ORDERING CLINICIAN: HOLLY ROWE ?? FINDINGS: [...] INDICATION: Signs/Symptoms:second toe. COMPARISON: None. ACCESSION NUMBER(S): [id number]; [id number] ORDERING CLINICIAN: HOLLY ROWE FINDINGS: Three views [...] MD (PGY-3). MACRO: None Signed by: Audra Aby 10/06/2025 8:05 PM Dictation workstation: [id number] Authorizing ProviderResult TypeResult StatusHolly Rowe MDIMG XR PROCEDURES Final Result * Troponin I, High Sensitivity, Initial (10/06/2025 5:55 PM EST)ComponentValue Ref RangeTest MethodAnalysis TimePerformed AtPathologist SignatureTroponin I, High Sensitivity (CMC)<30 - 34 ng/L LAB IMMUNOASSAY METHOD 10/06/2025 6:32 PM ESTGUTHRIE CLINIC LABSpecimen (Source)Anatomical Location / Laterality Collection Method / VolumeCollection TimeReceived TimeBloodVenous blood specimen / UnknownVenipuncture / Pfsiavg3210/06/2025 5:55 PM EST10/06/2025 6:02 PM EST Narrative [facility] - 10/06/2025 6:32 PM EST Less [...] performed using a different testing methodology at [facility] than at other legacy [facility]. Direct result comparisons should only be made within the same method. Authorizing ProviderResult TypeResult Jovita Rowe [facility] BLOOD ORDERABLESFinal ResultPerforming OrganizationAddressCity/State/ZIP CodePhone Number [facility] [address] [address] * Morphology (10/06/2025 5:55 PM EST)ComponentValueRef RangeTest MethodAnalysis TimePerformed AtPathologist [facility] MorphologySee Below10/06/2025 6:29 PM [facility] LABTarget QblrsQmg12/12/2025 6:29 PM [facility] LABSpecimen (Source) Anatomical Location / LateralityCollection Method / VolumeCollection Time Received TimeBloodVenous blood specimen / UnknownVenipuncture / Unknown 10/06/2025 5:55 PM EST10/06/2025 6:02 PM EST Narrative Authorizing ProviderResult TypeResult StatusHolly BEGUM BLOOD ORDERABLESFinal ResultPerforming OrganizationAddressCity/State/ZIP CodePhone Number [facility] [address] [facility] [address] [phone] * (ABNORMAL) Comprehensive Metabolic Panel (10/06/2025 5:55 PM EST) Only the most recent of2 resultswithin the time period is included. ComponentValueRef RangeTest MethodAnalysis TimePerformed AtPathologist Signature Gwsubzy8660 - 99 mg/dL LAB CHEMISTRY METHOD 10/06/2025 6:48 PM [facility] KGVJdisnv895184 - 145 mmol/L LAB CHEMISTRY METHOD 10/06/2025 6:48 PM [facility] LABPotassium3.3(L)3.5 - 5.3 mmol/L LAB CHEMISTRY METHOD 10/06/2025 6:48 PM [facility] DHJUkjlsdcz918(H)98 - 107 mmol/L LAB CHEMISTRY METHOD 10/06/2025 6:48 PM [facility] FNNLapktaifjup8684 - 32 mmol/L LAB CHEMISTRY METHOD 10/06/2025 6:48 PM [facility] LABComment:Bicarbonate results may be falsely elevated when Lactate Dehydrogenase (LDH) concentrations exceed 2,000 U/L due to a temporary reagent manufacturing issue. If significantly elevated LDH levels are suspected, interpret bicarbonate results with caution, correlate with the patient???s clinical status, and consider confirming CO2 values using a blood gas analyzer.Anion Iqd5106 - 20 mmol/L LAB CHEMISTRY METHOD 10/06/2025 6:48 PM [facility] LABUrea Nitrogen5(L)6 - 23 mg/dL LAB CHEMISTRY METHOD 10/06/2025 6:48 PM [facility] LABCreatinine0.37(L)0.50 - 1.05 mg/dL LAB CHEMISTRY METHOD 10/06/2025 6:48 PM [facility] LABeGFR>90>60 mL/min/1.73m*2 LAB CHEMISTRY METHOD 10/06/2025 6:48 PM [facility] LABComment: Calculations of estimated GFR are performed using the 2020 CKD-EPI Study Refit equation without therace variable for the IDMS-Traceable creatinine methods. https://jasn.asnjournals.org/content/early/ASN.0346206727 Calcium8.68.6 - 10.6 mg/dL LAB CHEMISTRY METHOD 10/06/2025 6:48 PM [facility] LABAlbumin3.93.4 - 5.0 g/dL LAB CHEMISTRY METHOD 10/06/2025 6:48 PM [facility] LABAlkaline Mrquppwkwcn4132 - 110 U/L LAB CHEMISTRY METHOD 10/06/2025 6:48 PM [facility] LABTotal Protein6.96.4 - 8.2 g/dL LAB CHEMISTRY METHOD 10/06/2025 6:48 PM [facility] DWAIWG654 - 39 U/L LAB CHEMISTRY METHOD 10/06/2025 6:48 PM [facility] LABBilirubin, Total0.30.0 - 1.2 mg/dL LAB CHEMISTRY METHOD 10/06/2025 6:48 PM [facility] LABALT5(L)7 - 45 U/L LAB CHEMISTRY METHOD 10/06/2025 6:48 PM [facility] LABComment:Patients treated with Sulfasalazine may generate falsely decreased results for ALT.Specimen (Source)Anatomical Location / LateralityCollection Method / VolumeCollection TimeReceived TimeBloodVenous blood specimen / UnknownVenipuncture / Tslghqx4410/06/2025 5:55 PM EST10/06/2025 6:02 PM EST Narrative Authorizing ProviderResult TypeResult StatusHolly BEGUM BLOOD ORDERABLESFinal ResultPerforming OrganizationAddressCity/State/ZIP CodePhone Number [facility] [address] [address] * ECG 12 lead (10/06/2025 5:33 PM EST) Only the most recent of2 resultswithin the time period is included. ComponentValueRef RangeTest MethodAnalysis TimePerformed AtPathologist Signature Ventricular Zdtr45PAAPUEJBkzxrv Anxq21CLSAFESXS Meewcneu362odYVWZZZC Ofogmdod79 msMUSEQT Hydtrakb207mzPLDRZOU Calculation(Bazett)445msMUSEP Fgtj49abtrfifKJWOT Jkgm23itbzrflDQGBL [place]-9degreesMUSEQRS Zedxt24eyjcqNCGBW Bschu157ddDWZGT Onset 140msMUSEP Jwykdu523ibNMIJG Nhkpbm744djBRTPLJE Urnbkshdxk123ftTRABAmiidbxd (Source)Anatomical Location / LateralityCollection Method / VolumeCollection TimeReceived Time10/06/2025 5:32 PM EST10/07/2025 3:01 AM EST Narrative MUSE - 10/07/2025 3:01 AM EST Normal sinus rhythm Septal infarct (cited on or before 28-JUL-2025) T wave abnormality, consider inferior ischemia Abnormal ECG When compared with ECG of 28-JUL-2025 14:54, No significant change was found See ED provider note for full interpretation and clinical correlation Confirmed by Karli Chino ([id number]) on 10/07/2025 3:01:06 AM Procedure Note Karli Chino PA-C - 10/07/2025 Normal sinus rhythm Septal infarct (cited on or before 28-JUL-2025) T wave abnormality, consider inferior ischemia Abnormal ECG When compared with ECG of 28-JUL-2025 14:54, No significant change was found See ED provider note for full interpretation and clinical correlation Confirmed by Karli Chino ([id number]) on 10/07/2025 3:01:06 AM Authorizing ProviderResult TypeResult StatusHolly Rowe MDECG ORDERABLES Final ResultPerforming OrganizationAddressCity/State/ZIP CodePhone Number MUSE * XR chest 2 views (07/28/2025 5:21 PM EDT)Anatomical RegionLateralityModality Thoracic, ChestComputed RadiographySpecimen (Source)Anatomical Location / LateralityCollection Method / VolumeCollection TimeReceived Time07/28/2025 5:28 PM EDT07/28/2025 5:28 PM EDT Impressions 07/28/2025 6:36 PM EDT No focal regions of airspace consolidation. Signed by Evaristo Bales MD Narrative 07/28/2025 6:36 PM EDT STUDY: Chest Radiographs; ??07/28/2025 5:22PM INDICATION: Shortness of breath and congestion. COMPARISON: None Available ACCESSION NUMBER(S): [id number] ORDERING CLINICIAN: COLEMAN CID TECHNIQUE: ??Frontal and lateral chest. FINDINGS: CARDIOMEDIASTINAL SILHOUETTE: Cardiomediastinal silhouette is normal in size and configuration. LUNGS: Lungs are clear. ABDOMEN: No remarkable upper abdominal findings. BONES: No acute osseous changes. Procedure Note Evaristo Bales MD - 07/28/2025 STUDY: Chest Radiographs; 07/28/2025 5:22PM INDICATION: Shortness of breath and congestion. COMPARISON: None Available ACCESSION NUMBER(S): [id number] ORDERING CLINICIAN: COLEMAN CID TECHNIQUE: Frontal and lateral chest. FINDINGS: CARDIOMEDIASTINAL SILHOUETTE: Cardiomediastinal silhouette is normal in size and configuration. LUNGS: Lungs are clear. ABDOMEN: No remarkable upper abdominal findings. BONES: No acute osseous changes. IMPRESSION: No focal regions of airspace consolidation. Signed by Evaristo Bales MD Authorizing ProviderResult TypeResult StatusCharaileen Cid PA-CIMG XR PROCEDURESFinal Result * (ABNORMAL) Blood Gas Venous (07/28/2025 4:43 PM EDT)ComponentValueRef Range Test MethodAnalysis TimePerformed AtPathologist SignaturePOCT pH, Venous7.42 7.33 - 7.43 pH07/28/2025 5:23 PM EDTGUTHRIE [facility] LABPOCT pCO2, Ppgpyy35(L)41 - 51 mm Hg07/28/2025 5:23 PM EDTGUTHRIE [facility]INIC LABPOCT pO2, Ikmyzu84(H)35 - 45 mm Hg07/28/2025 5:23 PM EDTGUTHRIE CLINIC LABPOCT SO2, Ccuawn73(H)45 - 75 %07/28/2025 5:23 PM EDTGUTHRIE CLINIC LABPOCT Oxy Hemoglobin, Cjtuth16.745.0 - 75.0 %07/28/2025 5:23 PM [facility] POCT Base Excess, Venous-1.2-2.0 - 3.0 mmol/L07/28/2025 5:23 PM [facility] POCT HCO3 Calculated, Llesso15.722.0 - 26.0 mmol/L07/28/2025 5:23 PM [facility] LABPatient Pzwtaylpqre42.0degrees Yhtosfj6507/28/2025 5:23 PM [facility] Comment:NOTE: Patient Results are Not Corrected for AplkpktnclpGgG467% 07/28/2025 5:23 PM [facility] LABSpecimen (Source)Anatomical Location / LateralityCollection Method / VolumeCollection TimeReceived TimeBloodVenous blood specimen / UnknownVenipuncture / Umodjys0807/28/2025 4:43 PM EDT07/28/2025 4:45 PM EDT Narrative Authorizing ProviderResult TypeResult StatusCharaileen FONTENOT-ALEXIS BLOOD ORDERABLESFinal ResultPerforming OrganizationAddressCity/State/ZIP CodePhone Number [facility] [address] [phone] * D-Dimer, VTE Exclusion (07/28/2025 4:43 PM EDT)ComponentValueRef RangeTest MethodAnalysis TimePerformed AtPathologist SignatureD-Dimer, Quantitative VTE Ghgduduvf984<=500 ng/mL FEU LAB COAGULATION METHOD 07/28/2025 5:30 PM [facility] LABSpecimen (Source)Anatomical Location / Laterality Collection Method / VolumeCollection TimeReceived TimeBloodVenous blood specimen / UnknownVenipuncture / Lfhwdtk1107/28/2025 4:43 PM EDT07/28/2025 5:01 PM EDT Narrative [facility] - 07/28/2025 5:30 PM EDT The VTE Exclusion D-Dimer assay is reported in ng/mL Fibrinogen Equivalent Units (FEU). Per systems architect's instructions for use, a value of less than 500 ng/mL (FEU) may help to exclude DVT or PE in outpatients when the assay is used with a clinical pretest probability assessment.(AEMR must utilize and document eCalc 'Wells Score Deep Vein Thrombosis Risk' for DVT exclusion only. Emergency Department should utilize Guidelines for Emergency Department Use of the VTE Exclusion D-Dimer and Clinical Pretest probability assessment model for DVT or PE exclusion.) Authorizing ProviderResult TypeResult StatusChabyron Spencer Cid PA-CLAB BLOOD ORDERABLESFinal ResultPerforming OrganizationAddressCity/State/ZIP CodePhone Number [facility] [address] [address] * Pathologist Review-CBC Differential (07/28/2025 4:43 PM EDT)ComponentValueRef RangeTest MethodAnalysis TimePerformed AtPathologist SignaturePathologist Review-CBC DifferentialMild lymphocytosis with frequent lymphocytes with moderately abundant granular cytoplasm, indented/convoluted nuclei with condensed chromatin. If lymphocytosis is persistent and otherwise unexplained (such as viral infection), consider flow cytometry.07/29/2025 11:13 AM EDT [facility] LABComment: . By the signature on this report, the individual or group listed as making the Final Interpretation/Diagnosis certifies that they have reviewed this case. Specimen (Source)Anatomical Location / LateralityCollection Method / Volume Collection TimeReceived TimeBloodVenous blood specimen / UnknownVenipuncture / Exgbtjt7907/28/2025 4:43 PM EDT07/28/2025 5:01 PM EDT Narrative Authorizing ProviderResult TypeResult StatusCharaileen Johanna Cid PA-CLAB BLOOD ORDERABLESFinal ResultPerforming OrganizationAddressCity/State/ZIP CodePhone Number [facility] [address] [address] * (ABNORMAL) POCT GLUCOSE (07/28/2025 3:50 PM EDT)ComponentValueRef RangeTest MethodAnalysis TimePerformed AtPathologist SignaturePOCT Xhmzzge178(H)74 - 99 mg/dL07/28/2025 3:52 PM EDTGUTHRIE CLINIC LABSpecimen (Source)Anatomical Location / LateralityCollection Method / VolumeCollection TimeReceived TimeBloodCapillary blood specimen / Bgvtbjm0707/28/2025 3:50 PM EDT07/28/2025 3:52 PM EDT Narrative Authorizing ProviderResult TypeResult StatusInterface UnspecifiedproviderLAB POINT OF CARE TEST DOCKED DEVICE UNSOLICITED RESULTSFinal ResultPerforming OrganizationAddressCity/State/ZIP CodePhone Number [facility] [address] [address] * Sars-CoV-2 and Influenza A/B PCR (07/28/2025 3:50 PM EDT)ComponentValueRef RangeTest MethodAnalysis TimePerformed AtPathologist SignatureFlu A ResultNot DetectedNot Detected X_PERT XPRESS SARS-COV2_CEPHEID_EUA 07/28/2025 5:16 PM EDTGUTHRIE CLINIC LABFlu B ResultNot DetectedNot Detected X_PERT XPRESS SARS-COV2_CEPHEID_EUA 07/28/2025 5:16 PM [facility] LABCoronavirus 2019, PCRNot DetectedNot Detected X_PERT XPRESS SARS-COV2_CEPHEID_EUA 07/28/2025 5:16 PM [facility] LABSpecimen (Source)Anatomical Location / Laterality Collection Method / VolumeCollection TimeReceived TimeSwabNasopharyngeal swab / Hzgccto9207/28/2025 3:50 PM EDT07/28/2025 4:18 PM EDT Narrative [facility] - 07/28/2025 5:16 PM EDT This assay is an FDA-cleared, in vitro diagnostic nucleic acid amplification test for the qualitative detection and differentiation of SARS CoV-2/ Influenza A/B from nasopharyngeal specimens collected from individuals with signs and symptoms of respiratory tract infections, and has been validated for use at [facility]. Negative results do not preclude COVID-19/ Influenza A/B infections and should not be used as the sole basis for diagnosis, treatment, or other management decisions. Testing for SARS CoV-2 is recommended only for patients who meet current clinical and/or epidemiological criteria defined by federal, state, or local public health directives. Authorizing ProviderResult TypeResult StatusChabyron [facility] ORDERABLESFinal ResultPerforming OrganizationAddressCity/State/ZIP CodePhone Number [facility] [address] [address] from Last 3 Months Insurance * Guarantor: Alden NandiniClotilde TypeRelation to PatientDate of BirthPhone Billing AddressPersonal/PvunuoXosu1985 [address] [phone] Advance Directives For more information, please contact: [phone] (Available ) * Full Code (Latest Code Status on File) Date ActivatedDate KnvmwdwbapaZxunveak57/12/2025 10:11 PMQuestionAnswerComments Plan of Care:* Code Status Discussion Completed Decision Maker:* Patient Care Teams Team MemberRelationshipSpecialtyStart DateEnd Date Krystal Koehler MD [address] [facility] [address] [place] [address] PCP - [employer] PCP03/25/25 Krystal Koehler MD [address] [facility] [address] [place] [address] PCP - GeneralCardiology07/28/25 Rigoberto Montano DO [address] [facility] [address], [place] [address] Referring PhysicianObstetrics and Gynecology03/23/24
--- OUTSIDE RECORDS SUMMARY | 2025-10-19 13:00 | XMS_ITS | Encounter Summary ---
Author Organization [facility] Address [address] [place] [address] Phone Care Team Providers Care Rust Proofer Name Role Phone DustyRigoberto DO Unavailable [phone] Krystal Koehler MD Unavailable Krystal Koehler MD Primary Care Provider [phone] Encounter Details DateTypeDepartmentCare Team (Latest Contact Info)Yhzxcrfypkk88/13/2025Travel Social History Tobacco UseTypesPacks/DayYears UsedDateSmoking Tobacco: Some DaysCigarettes Smokeless Tobacco: NeverAlcohol UseStandard Drinks/WeekCommentsNever0 (1 standard drink = 0.6 oz pure alcohol)CommentsUnknownSex and Gender InformationValueDate RecordedSex Assigned at BirthNot on fileLegal SexFemale 01/04/2023 12:55 PM ESTGender IdentityNot on fileSexual OrientationNot on file documented as of this encounter Functional Status documented as of this encounter Plan of Treatment DateTypeDepartmentCare Team (Latest Contact Info)Peiwoacgryz46/02/2026 10:00 AM ESTOffice Visit [facility] [address] [facility] [address] [place] [address] Krystal Koehler MD [address] [facility] [address] [place] [address] documented as of this encounter Visit Diagnoses Not on filedocumented in this encounter Additional Health Concerns AssessmentNoted TimeA fall risk assessment has been completed for the patient 07/06/2024 10:09 AM EDTdocumented as of this encounter Care Teams Team MemberRelationshipSpecialtyStart DateEnd Date Krystal Koehler MD [address] [facility] [address] [place] [address] PCP - Jenelle DUENASO PCP03/25/25 Krystal Koehler MD [address] [facility] [address], [address] [place], [place] [phone] PCP - GeneralCardiology07/28/25 Rigoberto Montano DO [address] [facility] [address], [place] [address] Referring PhysicianObstetrics and Gynecology03/23/24documented as of this encounter
--- OUTSIDE RECORDS SUMMARY | 2025-10-19 13:00 | XMS_ITS ---
Author Name Good Duran Address Unknown Organization [facility] Care Team Providers Care Nail Specialist Name Role Phone Unavailable Primary Care Physician Unavailab le History Of Present Illness No Data Medications No data Problems Problem Code Type Status Date of Diagnosis Da te of Resolution Acute osteomyelitis of ankle and/or foot (disorder) 991616595(SN OMED) Diagnosis active 10/10/2025 Acute osteomyelitis of ankle and/or foot (disorder)311975044(SNOMED)Diagnosis xlkfhv485Acute osteomyelitis of ankle and/or foot (disorder) 378989738(SNOMED)Mipifmhlvvmlbtc00/15/2025Acute osteomyelitis of ankle and/or foot (disorder)707684628(SNOMED)Iyjrymunmcvcwox26/15/2025 Results No data Encounters Service provided at [facility] [[email or web address]], [address] [place] [phone]. Office phone number is [phone]. Encounter Diagnosis Location Date / Time Type Acute Osteomyelitis Foot, Bilateral (M86.172,M86.171) [facility] 10/10/2025 14:53:08 [facility] [address] Reason For Referral No data Procedures Procedure Date Patient encounter procedure (procedure) 10/10/2025 12:00 am [facility] Patient encounter procedure (procedure) 10/09/2025 12:00 am [facility] Review Of Systems No Data Assessment 1.Acute Osteomyelitis Foot, BilateralCPT alfred Plan of Care No data Instructions No Data Social History Code Activity Start Date End Date 029590174 (SNOMED) Unknown if ever smoked SexfemaleSexual orientationDon't KnowGender identityUnspecified Vital Signs No data
--- OUTSIDE RECORDS SUMMARY | 2025-10-19 13:00 | XMS_ITS ---
Author Name Gissel Manolo Address Unknown Organization [facility] Care Team Providers Care Water Supervisor Name Role Phone Unavailable Primary Care Physician Unavailab le History Of Present Illness No Data Medications No data Problems Problem Code Type Status Date of Diagnosis Da te of Resolution Acute osteomyelitis of ankle and/or foot (disorder) 391740506(SN OMED) Diagnosis active 10/11/2025 Acute osteomyelitis of ankle and/or foot (disorder)214282663(SNOMED)Diagnosis gkolof345Acute osteomyelitis of ankle and/or foot (disorder) 515254141(SNOMED)Xbxsaceukxqytkm40/16/2025Acute osteomyelitis of ankle and/or foot (disorder)767871688(SNOMED)Naqcykxottytkoh43/16/2025Acute osteomyelitis of ankle and/or foot (disorder)400812216(SNOMED)Lwsljbxfbpqddck49/15/2025Acute osteomyelitis of ankle and/or foot (disorder)941743468(SNOMED)Diagnosisactive 10/09/2025 Results No data Encounters Service provided at [facility], [address] [place] [phone]. Office phone number is [phone]. Encounter Diagnosis Location Date / Time Type Acute Osteomyelitis Foot, Bilateral (M86.172,M86.171) [facility] 10/11/2025 17:49:57 [facility] [place] [address] Reason For Referral No data Procedures Procedure Date Patient encounter procedure (procedure) 10/11/2025 12:00 am [facility] Patient encounter procedure (procedure) 10/10/2025 12:00 am [facility] Patient encounter procedure (procedure) 10/09/2025 12:00 am [facility] Review Of Systems No Data Assessment 1.Acute Osteomyelitis Foot, BilateralCPT bottom loader Plan of Care No data Instructions No Data Social History Code Activity Start Date End Date 611697217 (SNOMED) Unknown if ever smoked SexfemaleSexual orientationDon't KnowGender identityUnspecified Vital Signs No data
--- OUTSIDE RECORDS SUMMARY | 2025-10-19 13:07 | XMS_ITS | CCD ---
Author Organization [facility] Care Team Providers Care Solid Waste Collector Name Role Phone NON STAFF Primary Care Provider DO Robert Singh Emergency Provider IVONE Marques Primary Care Provider IVONE Andrews Emergency Provider Corrina Escalona MD, Jamia Bueno Unavailable Angelo [facility] Radha Seay Emergency Provider IVONE Marques Attending Provider [phone] MD Derek Viera Attending Provider IVONE Marques Primary Care Provider DO Mk Parker Emergency Provider [phone] IVONE Marques Primary Care Provider Rigoberto Montano Attending Provider Corrina Escalona MD, [facility] Unavailable [phone] CASIE Rondon Emergency Provider IVONE Marques Attending Provider [phone] IVONE Andrews Emergency Provider IVONE Marques Primary Care Provider MD Derek Viera Attending Provider [phone] IVONE Marques Primary Care Provider CASIE Laguna Emergency Provider IVONE Marques Primary Care Provider Nita, DO Isidoro M Emergency Provider IVONE Marques Primary Care Provider CASIE Laguna Emergency Provider [phone] Tuia, DO Isidoro M Emergency Provider Rigoberto Montano Attending Provider [phone] IVONE Marques Primary Care Provider [facility], DO PortilloIsidoro M Emergency Provider [phone] [facility] DO Aron Trevino Emergency Provider Ga Moran Unavailable Unavailable Unavailable IVONE Marques Primary Care Provider [facility], DO Isidoro Bueno Emergency Provider Rigoberto Montano Attending Provider [phone] [facility] Emergency Provider DO Aron Trevino Emergency Provider Govind Koehler MD Krystal Attending Provider [facility], [facility] Primary Care Unavaila ble DUSTY ., DR JAMIL Attending Unavailable DUSTY ., DR JAMIL Admitting Unavailable DUSTY ., DR JAMIL Consulting Unavailable [facility], [facility] Primary Care Unavaila ble DUSTY ., DR JAMIL Attending Unavailable DUSTY ., DR JAMIL Admitting Unavailable DUSTY ., DR JAMIL Admitting Unavailable [facility], [facility] Primary Care Unavaila ble DUSTY ., DR JAMIL Attending Unavailable DUSTY ., DR JAMIL Consulting Unavailable DUSTY ., DR JAMIL Consulting Unavailable [facility], [facility] Primary Care Unavaila ble DUSTY ., DR JAMIL Attending Unavailable DUSTY ., DR JAMIL Admitting Unavailable DUSTY ., DR JAMIL Consulting Unavailable [facility], [facility] Primary Care Unavaila ble DUSTY ., DR JAMIL Attending Unavailable DUSTY ., DR JAMIL Admitting Unavailable DUSTY ., DR JAMIL Admitting Unavailable MISC, DR SIFUENTES Primary Care Unavailable DUSTY ., DR JAMIL Attending Unavailable DUSTY ., DR JAMIL Admitting Unavailable MISC, DR SIFUENTES Primary Care Unavailable DUSTY ., DR JAMIL Attending Unavailable DUSTY ., DR JAMIL Admitting Unavailable DUSTY ., DR JAMIL Attending Unavailable MISC, DR SIFUENTES Primary Care Unavailable DUSTY ., DR JAMIL Attending Unavailable DUSTY ., DR JAMIL Admitting Unavailable FAMILY, HEALTH SERVICES Primary Care Unavaila ble FAMILY, HEALTH SERVICES Primary Care Unavaila ble GA MARQUES Consulting Unavailable GA MARQUES Attending Unavailable GA MARQUES Admitting Unavailable DUSTY ., DR JAMIL Admitting Unavailable MISC, DR SIFUENTES Primary Care Unavailable DUSTY ., DR JAMIL Attending Unavailable DUSTY ., DR JAMIL Consulting Unavailable IVONE Marques Primary Care Provider IVONE Andrews Emergency Provider Rodo, Dr. Rice Attending Unavailable Rodo, Dr. Rice Referring Unavailable Koehler, Dr. Rice Attending Unavailable Koehler, Dr. Rice Attending Unavailable Koehler, Dr. Rice Attending Unavailable Safiae, CASIE Reynoso Emergency Provider IVONE Marques Primary Care Provider Alcon GLASS BENDERAngeles ChristineHanane N Emergency Provider [phone] DO Isidoro Moya Emergency Provider Jamia Johansen MD Unavailable [phone] IVONE Marques Primary Care Provider CASIE Rondon Emergency Provider IVONE Marques Attending Provider Ga Marques PA-C Primary Care Provider Rigoberto Montano DO Unavailable [phone] Rigoberto Montano Attending Provider NO FAMILY, PHYSICIAN Primary Care Provider Unava ilable IVONE Andrews Emergency Provider NO FAMILY, PHYSICIAN Primary Care Provider Unava ilable Dusty, Rigoberto Attending Provider NON STAFF Primary Care Provider Unavailabl e ARMIN CARBAJAL Primary Care Unavailable Dusty, DO Rigoberto Attending Provider Dusty DO, Rigoberto Attending Provider [phone] NON STAFF Primary Care Provider Unavailabl e Mk Parker DO Emergency Provider Unavailable Primary Care Provider Unavailabl e Dusty DOLynny Steffen Unavailable [phone] NON STAFF Primary Care Provider Unavailabl e Eulalia Cobb MD Emergency Provider [phone] Be Laguna APRN Emergency Provider [phone] Miquel Andrews PA-C Emergency Provider NON STAFF Primary Care Provider Unavailabl e NO FAMILY, PHYSICIAN Primary Care Provider Unava ilable Luis Miguel SANCHEZ, Ga Burris Emergency Provider Aron Trevino DO Emergency Provider Unavai KRYSTAL Castro Attending Unavailable KRYSTAL KOEHLER Referring Unavailable GA MARQUES Primary Care Unavailable KRYSTAL KOEHLER Attending Unavailable KRYSTAL KOEHLER Referring Unavailable Momo York PA-C Emergency Provider Dusty DO Rigoberto Unavailable Aron Trevino DO Emergency Provider UnavaKelsea Villeda APRN Attending Provider Hanane Rondon APRN Emergency Provider Unallocated Dudley SANCHEZ Provider Primary Care Provi christopher NO FAMILY, PHYSICIAN Primary Care Provider Unava ilDerek Leblanc MD Attending Provider Hanane Rondon Admitting Unavailable Hanane Rondon Attending Unavailable NO FAMILY, PHYSICIAN Primary Care Unavailable NON STAFF Primary Care Unavailable Mk Parker Admitting Unavailable Mk Parker Attending Unavailable Dusty, Rigoberto Admitting Unavailable Lynn Montanoy Attending Unavailable Kelsea Joseph Attending Unavailable Kelsea Joseph Admitting Unavailable NO FAMILY, PHYSICIAN Primary Care Unavailable Jake, Kelsea Attending Unavailable Betzy Josepha Admitting Unavailable NO FAMILY, PHYSICIAN Primary Care Unavailable Betzy Josepha Attending Unavailable Jake, Kelsea Admitting Unavailable NO FAMILY, PHYSICIAN Primary Care Unavailable Derek Viera Admitting Unavailable Karl Vierat Attending Unavailable NO FAMILY, PHYSICIAN Primary Care Unavailable Eulalia Cobb Admitting Unavailable Eulalia Cobb Attending Unavailable NON STAFF Primary Care Unavailable NON STAFF Primary Care Unavailable Be Laguna Admitting Unavailable Be Laguna Attending Unavailable Ga Bolanos Jr Admitting Unavailable Ga Bolanos Jr Attending Unavailable NO FAMILY, PHYSICIAN Primary Care Unavailable NO FAMILY, PHYSICIAN Primary Care Unavailable Aron Trevino Admitting Unavailable Aron Trevino Attending Unavailable Momo York Admitting Unavailable Momo York Attending Unavailable NO FAMILY, PHYSICIAN Primary Care Unavailable Hanane Rondon Admitting Unavailable SafHanane lua N Attending Unavailable NO FAMILY, PHYSICIAN Primary Care Unavailable Miquel Andrews Admitting Unavailable Miquel Andrews Attending Unavailable NON STAFF Primary Care Unavailable [facility] Unavailable Rodo [facility] Krystal Primary Care Provider [phone] KOEHLER, KRYSTAL Primary Care Unavailable LORI LION Referring Unavailable [facility] Primary Care Unavailable LORI LION Referring Unavailable [facility] Primary Care Unavailable RIGOBERTO MONTANO Attending Unavailable IRIS SAMSON Attending Unavailable DEREK ALEJANDRE Attending Unavailable DEREK ALEJANDRE Attending Unavailable IRIS SAMSON Attending Unavailable EULALIA FUENTES Referring Unavailable SEFERINO GOLD Referring Unavailable Rigoberto Montano DO Unavailable EULALIA FUENTES Attending Unavailable EULALIA FUENTES Attending Unavailable SELF Referring Unavailable EULALIA FUENTES Admitting Unavailable EULALIA FUENTES Attending Unavailable EULALIA FUENTES Referring Unavailable EULALIA FUENTES Attending Unavailable SELF Referring Unavailable EULALIA FUENTES Attending Unavailable EULALIA FUENTES Attending Unavailable EULALIA FUENTES Attending Unavailable Allergies Allergy ClassificationReported Allergen(s)Allergy TypeDate of OnsetReaction(s) FacilityCorticosteroids (2 sources)predniSONEDrug Cdlnvdf63-17-9159Xznzj: See CommentsMagruder Hospital NSAIDs (2 sources)KetorolacDrug Syygthh82-27-1609HegbkXxybtaizr ClinicOpioid Agonists (2 sources)traMADolDrug Brxbvpg28-33-9345Qlqxp: See CommentsMagruder Hospital (20 sources)Ketorolac; Translations: [KETOROLAC]Drug Btsnzam59-60-3837PwghkPaulding [facility] Hospital (20 sources)predniSONE; Translations: [prednisone]Drug Qjennck52-64-8320Jmxom: See Comments, Hives, Other, [facility] HospitalComment on above:MAKES ME CRAZY (20 sources)traMADol; Translations: [tramadol]Drug Nkfamwv14-67-4639Llqpj: See Comments, Anaphylaxis, Other, [facility] HospitalComment on above:STOPS HEART (1 source)KetorolacDrug AllergyThe [facility] Medications Current Medications MedicationDrug Class(es)DatesSig (Normalized)Sig (Original)acetaminophen 325 mg / HYDROcodone bitartrate 5 mg oral tablet (20 sources)Opioid AgonistStart: 23-40-4244rvmz 1 tablet by mouth every six hours as needed for painStart: 04-15-2025 End: 93-97-7446ucdi 1 tablet by mouth every four to six hours as needed for pain Hydrocodone-Acetaminophen 5-325 mg tablet Discontinued 1 TAB PO EVERY 4-6 HOURS as needed for pain 7 3 April 15, 2025 June 12, 2025 5:27pmStart: 02-10-2025 End: 86-35-7575bxsz 1 tablet by mouth every six hours as needed for pain Hydrocodone-Acetaminophen 5-325 mg tablet Discontinued 1 - 2 TAB PO Q6H as needed for pain 15 3 March 20, 2025 June 12, 2025 5:27pmStart: 05-23-2023 End: 75-03-8073eoqd 1 tablet by mouth every six hours as needed for pain Hydrocodone-Acetaminophen 5-325 mg tablet Discontinued 1 TAB PO Q6H as needed for pain 8 3 July 01, 2023 October 23, 2023 8:16pmStart: 05-21-2022 End: 29-11-7549uidh 1 tablet by mouth every six hours as needed for pain Hydrocodone-Acetaminophen 5-325 mg tablet Discontinued 1 TAB PO Q6H as needed for pain 28 May 21, 2022 September 13, 2022 9:21amStart: 02-20-2022 End: 02-98-0857daha 1 tablet by mouth every six hours as needed for pain Hydrocodone-Acetaminophen 5-325 mg tablet Discontinued 1 TAB PO Q6H as needed for pain 12 3 February 20, 2022 March 08, 2022 10:50amacetaminophen 325 mg / oxyCODONE hydrochloride 5 mg oral tablet (1 source)Opioid AgonistStart: 05-01-2024 End: 15-65-2382ivau 1 tablet by mouth every six hours as needed for pain oxyCODONE-acetaminophen (PERCOCET) 5-325 mg tablet Indications: pain Take 1 tablet by mouth every 6hours as needed for pain for up to 5 days. 20 tablet 0 05/01/2024 05/06/2024 [id number] 200 actuat albuterol 0.09 mg/actuat metered dose inhaler (20 sources)beta2-Adrenergic AgonistStart: 07-28-2025 End: 87-64-0674ywpc 2 puff(s) by inhalation every four hours for wheezing albuterol 90 mcg/actuation inhaler Indications: Exacerbation of asthma, unspecified asthma severity, unspecified whether persistent ([facility]) Inhale 2 puffs every 4 hours if needed for wheezing. 18 g007/28/2025 08/27/2025 Active Start: 53-35-6736Bomwoipp HFA 108 (90 Base) MCG/ACT inhaler 06/02/2023 Active Start: 02-07-2022 End: 20-61-9704awkl 2 puff(s) by mouth every four hoursVENTOLIN HFA 90 mcg/actuation inhaler inhale 2 puffs by mouth and INTO THE LUNGS every 4 hours if needed 0 02/07/2022 03/20/2024 Discontinued (Course of therapy completed) Start: 12-90-0905brri 2 puff(s) by inhalation every six hours as neededalbuterol HFA (PROVENTIL HFA, VENTOLIN HFA) 90 mcg/actuation inhaler Inhale 2 Puffs as instructed every 6 hours as needed. 03/24/2020 Activetake 2 puff(s) by inhalation every four hoursalbuterol 90 mcg/actuation aerosol powdr breath activated inhaler Inhale 2 puffs every 4 hours. Activetake 1 puff(s) by inhalation every four hours as neededAlbuterol Sulfate HFA 108 (90 Base) MCG/ACT Inhalation Aerosol Solution INHALE 1 PUFF EVERY 4 HOURSAS NEEDED. Quantity: 0 Refills: 0 Ordered: 11-Feb-2023 DO ActiveComment on above:inhale 2 puffs by mouth and INTO THE LUNGS every 4 hours if neededInhale 2 Puffs as instructed every 6 hours as needed.amitriptyline hydrochloride 50 mg oral tablet (20 sources)Tricyclic AntidepressantStart: 20-00-4545zlpi 1 tablet by mouth once daily at bedtimeamitriptyline (ELAVIL) 50 mg tablet Take 50 mg by mouth daily at bedtime. 10/16/2021 ActiveComment on above:Take 50 mg by mouth daily at bedtime.atorvastatin (20 sources)HMG-CoA Reductase Inhibitoratorvastatin calcium (ATORVASTATIN ORAL) Take by mouth once daily. Activeatorvastatin calcium (ATORVASTATIN ORAL) Take by mouth once daily. 0 ActiveBoric Acid 600 MG suppository (12 sources)Start: 10-82-5602Razva Acid 600 MG suppository Indications: Yeast infection Insert 600 mg into the vagina Daily 14 suppository 05/06/2025 Active cariprazine 4.5 mg oral capsule (20 sources)Atypical AntipsychoticStart: 62-19-3958oepk 1 capsule by mouth once dailyVRAYLAR 4.5 mg capsule take 1 take by mouth once daily 10/17/2021 Active Comment on above:take 1 take by mouth once dailycefadroxil 500 mg oral capsule (3 sources)Cephalosporin AntibacterialStart: 03-17-2024 End: 80-53-1766ddlj 1 capsule by mouth twice dailycefADROxil (DURICEF) 500 mg capsule Take 1 capsule by mouth two times a day for 7 days. 14 capsule 0 03/17/2024 03/24/2024 Activecephalexin 500 mg oral capsule (20 sources)Cephalosporin AntibacterialStart: 07-12-2025 End: 21-06-0750feen 1 capsule by mouth every eight hourscephalexin (Keflex) 500 MG capsule Indications: Left buttock abscess Take 1 capsule (500 mg) by mouth every 8 (eight) hours for 7 days 21 capsule 07/12/2025 07/19/2025 ActiveStart: 04-15-2025 End: 86-10-3161hlol 2 capsules by mouth twice dailyCephalexin 500 mg capsule Discontinued 1000 MG PO Twice daily 21 06April 15, 2025 12:00am June 12, 2025 5:26pmStart: 10-23-2023 End: 49-95-6773jwdu 1 capsule by mouth three times dailyCephalexin 500 mg capsule Discontinued 500 MG PO Three times daily 14 06October 23, 2023 1:00am November 22, 2024 1:52pmStart: 07-01-2023 End: 08-23-4508jgha 1 capsule by mouth every eight hoursCephalexin 500 mg capsule Discontinued 500 MG PO Q8H 30 July 01, 2023 12:00am October 23, 2023 8:16pmStart: 08-03-2022 End: 70-48-3865diin 1 capsule by mouth every eight hoursCephalexin 500 mg capsule Discontinued 500 MG PO Q8H 23 09August 03, 2022 12:00am January 04, 2023 2:35pmcetirizine hydrochloride 10 mg oral tablet (9 sources)Histamine-1 Receptor AntagonistStart: 70-75-0782eaqs 1 tablet by mouth once dailycitalopram 20 mg oral tablet (20 sources)Serotonin Reuptake InhibitorStart: 64-38-4060ttet 1 tablet by mouth once daily at bedtimecitalopram (CELEXA) 20 mg tablet Take 20 mg by mouth daily at bedtime. 10/16/2021 ActiveComment on above:Take 20 mg by mouth daily at bedtime.cyclobenzaprine hydrochloride 10 mg oral tablet (20 sources)Muscle RelaxantStart: 94-88-8025imdmzkkvulxatse (Flexeril) 10 MG tablet 10/04/2022 ActiveStart: 03-08-2022 End: 91-74-7612lmyx 1 tablet by mouth three times daily as needed for muscle spasmsCyclobenzaprine 10 mg tablet Discontinued 10 MG PO Three times daily as needed for muscle spasm June 02, 2025 12:00am June 12, 2025 5:27pm empagliflozin 25 mg oral tablet (17 sources)Sodium-Glucose Cotransporter 2 InhibitorStart: 84-97-7063wgoz 1 tablet by mouth once daily24 hr etodolac 500 mg extended release oral tablet (20 sources)Nonsteroidal Anti-inflammatory DrugStart: 25-44-8630tkfe 1 tablet by mouth once daily as needed for painetodolac (LODINE-XL) 500 mg 24 hr tablet take 1 tablet by mouth once daily NEEDED FOR PAIN with food 10/20/2021 Active Comment on above:take 1 tablet by mouth once daily NEEDED FOR PAIN with food fluconazole 150 mg oral tablet (2 sources)Azole AntifungalStart: 05-03-2025 End: 15-48-2841ywns 1 tablet by mouth once, then take 1 tablet by mouth once fluconazole (Diflucan) 150 MG tablet Indications: Yeast infection Take 1 tablet (150 mg) by mouth 1(one) time for 1 dose This is a 1 time dose, take single tablet by mouth. 1 tablet 1 05/03/2025 05/03/2025 Fynrkj386 actuat fluticasone propionate 0.11 mg/actuat metered dose inhaler (20 sources)CorticosteroidStart: 94-74-4730aoji 2 puff(s) by mouth twice daily FLOVENT HFA 110 mcg/actuation inhaler inhale 2 puffs by mouth and INTO THE LUNGS twice a day 01/11/2022 ActiveStart: 40-51-3883sgrh 1 spray(s) nasal route twice dailyfluticasone (FLONASE) 50 mcg/actuation nasal spray instill 1 spray into each nostril twice a day 01/10/2022 Activetake 1 puff(s) by mouth twice daily fluticasone (Flovent HFA) 110 mcg/actuation inhaler Inhale 1 puff 2 times a day. Rinse mouth with water after use to reduce aftertaste and incidence of candidiasis. Do not swallow. Activetake 2 puff(s) by inhalation twice daily Flovent HFA 110 MCG/ACT Inhalation Aerosol INHALE 2 PUFFS TWICE DAILY. Quantity: 0 Refills: 0 Ordered: 11-Feb-2023 DO ActiveComment on above:inhale 2 puffs by mouth and INTO THE LUNGS twice a dayinstill 1 spray into each nostril twice a day1.5 ml fremanezumab-vfrm 150 mg/ml auto-injector (20 sources)Start: 67-06-9840Skvxtmssljqx-Vfrm (Ajovy Autoinjector) 225 mg/1.5 mL auto-injector Active MG SUBCUT March 08, 2022 10:50amStart: 03-08-2022 End: 97-72-0129Qovitkpyphlm-Vfrm (Ajovy Autoinjector) 225 mg/1.5 mL auto- injector Discontinued 225 MG SUBCUT everymonth March 08, 2022 12:00am February 10, 2025 2:58pmStart: 03-21-6795Tztwn 225 MG/1.5ML auto-injector 06/02/2023 Activefremanezumab (Ajovy Autoinjector) 225 mg/1.5 mL auto-injector Inject 1 Pen (225 mg) under the skin every 30 (thirty) days. ActiveAjovy 225 MG/1.5ML Subcutaneous Solution Auto-injector once monthly Quantity: 0 Refills: 0 Ordered: 11-Feb-2023 DO ActiveComment on above:inject subcutaneously as directed furosemide 20 mg oral tablet (20 sources)Loop DiureticStart: 02-11-2023 End: 83-99-0279jqzdzlqzrx (Lasix) 20 MG tablet 06/02/2023 ActiveStart: 92-55-9760Ggrgwhajzd Active MG TABLET March 08, 2022 10:50amStart: 01-10-2022 take 1 tablet by mouth once dailyfurosemide (LASIX) 40 mg tablet take 1 tablet by mouth once daily if needed for SWELLING 01/10/2022ctiveComment on above:take 1 tablet by mouth once daily if needed for SWELLINGlidocaine 0.04 mg/mg medicated patch (20 sources)Antiarrhythmic, Amide Local AnestheticStart: 68-01-6535dnemy 1 dose topically once daily as needed for painStart: 02-10-2025 End: 40-05-6523gunyg 1 dose topically every twenty-four hoursLidocaine 5 % adhesive patch,medicated Discontinued 1 PATCH TOPICAL Q24H February 10, 2025 12:00am June 12, 2025 5:27pm leave on most painful area for up to 12 hrsStart: 01-13-2023 End: 25-37-0750frlrz 1 dose topically once daily as needed for painLidocaine (Lidoderm) 5 % adhesive patch,medicated Discontinued 1 PATCH TOPICAL Daily as needed for chest pain January 13, 2023 3:34am October 23, 2023 8:16pm leave on most painful area for up to 12 hrsStart: 01-75-7939bxjen 1 dose transdermal route every twenty-four hourslidocaine (SALONPAS) 4 % patch Apply 1 Patch as directed q 24 HR. 06/24/2020 ActiveComment on above:Apply 1 Patch as directed q 24 HR.loratadine 10 mg oral tablet (20 sources)Start: 70-13-8885vzob 1 tablet by mouth once dailyloratadine (CLARITIN) 10 mg tablet Take 10 mg by mouth once daily. 01/11/2022 Activetake 1 tablet by mouth once dailyloratadine (Claritin Reditabs) 10 mg disintegrating tablet Dissolve 1 tablet (10 mg) in the mouth once daily. Activetake 1 capsule by mouth once dailyClaritin 10 MG Oral Capsule TAKE 1 CAPSULE Daily Quantity: 0 Refills: 0 Ordered: 11-Feb-2023 DO ActiveComment on above:Take 10 mg by mouth once daily.metFORMIN hydrochloride 1000 mg oral tablet (20 sources)BiguanideStart: 17-05-6535Uzvrmmxzj Active MG TABLET March 08, 2022 10:50amStart: 01-09-2022 End: 82-16-8354hzsz 1 tablet by mouth twice dailyMetformin 1,000 mg tablet Discontinued 1000 MG PO Twice daily March 08, 2022 12:00am October 23, 2023 8:16pmtake 1 tablet by mouth once dailymetFORMIN HCl - 1000 MG Oral Tablet TAKE 1 TABLET EVERY 12 HOURS DAILY. Quantity: 0 Refills: 0 Ordered: 11-Feb-2023 DO ActiveComment on above:Take 1,000 mg by mouth twice daily with meals.montelukast 10 mg oral tablet (20 sources)Leukotriene Receptor AntagonistStart: 32-92-6988Jaiubnhnzui Active MG TABLET March 08, 2022 10:50amStart: 14-12-6804cdkc 1 tablet by mouth once dailymontelukast (Singulair) 10 MG tablet Take 10 mg by mouth Daily 04/04/2023 ActiveComment on above:Take 10 mg by mouth.mupirocin 0.02 mg/mg topical ointment (20 sources)RNA Synthetase Inhibitor AntibacterialStart: 81-53-5866dmhmtcude (BACTROBAN) 2 % ointment Apply 1 application to affected area two times a day. 22 g 3 05/20/2024 ActiveComment on above:Apply 1 application to affected area two times a day.omeprazole 20 mg delayed release oral capsule (20 sources)Proton Pump InhibitorStart: 75-51-4583wbkx 1 capsule by mouth once dailyomeprazole (PRILOSEC) 20 mg capsule Take 20 mg by mouth once daily. 10/16/2021 Activeomeprazole (PriLOSEC) [address] capsule 1 (one) time each day at the same time Activetake 1 tablet by mouth once daily before mealtimeomeprazole OTC (PriLOSEC OTC) 20 mg EC tablet Take 1 tablet (20 mg) by mouth once daily in the morning. Take before meals. Do not crush, chew, or split. ActiveComment on above:Take 20 mg by mouth once daily.Ozempic 0.25 mg or 0.5 mg (2 mg/3 mL) pen injector (1 source)Start: 05-21-2024 End: 64-79-6826jhgthi 0.5 mg by subcutaneous injection every weekOzempic 0.25 mg or 0.5 mg (2 mg/3 mL) pen injector Indications: Diabetes mellitus type II, non insulin dependent (Multi) , Hyperlipidemia, unspecified hyperlipidemia type DIAL AND INJECT UNDER THE SKIN 0.5 MG WEEKLY 3 mL 3 05/21/2024 07/06/2024 DiscontinuedOzempic, 0.25 or 0.5 MG/DOSE, 2 MG/3ML solution pen-injector (12 sources)Start: 03-23-2024 End: 73-55-2589fdrixu 0.5 mg by subcutaneous injection every weekOzempic, 0.25 or 0.5 MG/DOSE, 2 MG/3ML solution pen-injector Inject 0.5 mg under the skin once a week 03/23/2024 06/18/2025 Discontinued (Therapy completed)Start: 03-23-2024 inject 0.5 mg by subcutaneous injection every weekOzempic, 0.25 or 0.5 MG/DOSE, 2 MG/3ML solution pen-injector Inject 0.5 mg under the skin once a week 03/23/2024 ActiveStart: 03-23-2024 End: 88-39-4757pyppge 0.5 mg by subcutaneous injection every weekOzempic, 0.25 or 0.5 MG/DOSE, 2 MG/3ML solution pen-injector Inject 0.5 mg under the skin once a week 03/23/2024 03/23/2025 Activemicroencapsulated potassium chloride 20 meq extended release oral tablet (20 sources)Start: 49-06-7523rgcj 1 tablet by mouth three times daily at mealtimepotassium chloride CR (Klor-Con M20) 20 MEQ ER tablet take 1 tablet by mouth three times a day withfood 03/15/2023 ActiveStart: 01-10-2022 End: 66-90-6050ajbpjxcdy chloride CR (Klor-Con M20) 20 MEQ ER tablet 03/15/2023 Activetake 1 tablet by mouth once dailyPotassium Chloride ER 20 MEQ Oral Tablet Extended Release Take 1 tablet daily Quantity: 90 Refills:3 Ordered: 11-Feb-2023 DO ActiveComment on above:Take 20 mEq by mouth.prazosin 5 mg oral capsule (20 sources)alpha-Adrenergic BlockerStart: 67-31-5279rcch 1 capsule by mouth once dailyprazosin (MINIPRESS) 5 mg cap Take 5 mg by mouth once daily. 10/16/2021 ActiveComment on above:Take 5 mg by mouth once daily.rizatriptan 5 mg oral tablet (20 sources)Serotonin-1b and Serotonin-1d Receptor AgonistStart: 03-08-2022 Rizatriptan Active MG TABLET March 08, 2022 10:50amStart: 02-07-2022 End: 89-74-4495zprxxnvfppk (MAXALT) 5 mg tablet take 1 tablet by mouth AT ONSET OF HEADACHE MAY TAKE A SECOND TAB... (REFER TO PRESCRIPTION NOTES). 02/07/2022 Activerizatriptan (Maxalt) 5 mg tablet Take 1 tablet (5 mg) by mouth 1 time if needed for migraine. May repeat in 2 hours if unresolved. Do not exceed 30 mg in 24 hours. ActiveComment on above:take 1 tablet by mouth AT ONSET OF HEADACHE MAY TAKE A SECOND TAB... (REFER TO PRESCRIPTION NOTES).rOPINIRole 1 mg oral tablet (9 sources)Nonergot Dopamine Agonisttake 1 tablet by mouth three times daily rOPINIRole (Requip) 1 mg tablet Take 1 tablet (1 mg) by mouth 3 times a day. Activetake 2 tablets by mouth at bedtimerOPINIRole HCl - 1 MG Oral Tablet TAKE 2 TABLETS AT BEDTIME. Quantity: 0 Refills: 0 Ordered: 11-Feb-2023 DO Active1 mg dose 1.5 ml semaglutide 1.34 mg/ml pen injector (10 sources)Start: 78-89-6271oxihqcefdkr (Ozempic) 2 MG/1.5ML solution pen- injector .week 11/22/2024 Activesemaglutide (Ozempic) 0.25 mg or 0.5 mg(2 mg/1.5 mL) pen injector Inject under the skin 1 (one) time per week. ActiveSemaglutide (9 sources)Start: 43-36-2728xljjee 1 mg by subcutaneous injection once Semaglutide (Ozempic) 1 mg/dose (4 mg/3 mL) pen injector Active 1 MG SUBCUT .week November 22, 2024 1:00am Complies with drug therapyStart: 11-22-2024 inject 1 mg by subcutaneous injection onceStart: 86-46-4432xvvbng 1 mg by subcutaneous injection onceSemaglutide (Ozempic) 1 mg/dose (4 mg/3 mL) pen injector Active 1 MG SUBCUT .week November 22, 2024 1:00amsemaglutide (Ozempic) 0.25 mg or 0.5 mg (2 mg/3 mL) pen injector (2 sources)Start: 07-12-2024 End: 95-70-7397leokhwlanma (Ozempic) 0.25 mg or 0.5 mg (2 mg/3 mL) pen injector Indications: Diabetes mellitus type II, non insulin dependent (Multi) Inject 1 mg under the skin 1 (one) time per week. 6 mL 3 07/12/2024 11/01/2024 Active Start: 03-23-2024 End: 29-94-7729xngmonwqwct (Ozempic) 0.25 mg or 0.5 mg (2 mg/3 mL) pen injector Indications: Diabetes mellitus type II, non insulin dependent (Multi) , Hyperlipidemia, unspecified hyperlipidemia type Inject 0.5 mg under the skin every 7 days. 0.2 mL 1 03/23/2024 03/23/2025 Activesemaglutide (OZEMPIC) 1 mg/dose (4 mg/3 mL) pen (6 sources)Start: 80-54-4965aupiez 1 mg by subcutaneous injection every week semaglutide (OZEMPIC) 1 mg/dose (4 mg/3 mL) pen Inject 1 mg subcutaneously one time a week. 10/05/2024 ActiveSITagliptin 100 mg oral tablet (20 sources)Dipeptidyl Peptidase 4 InhibitorStart: 99-96-4107cbre 1 tablet by mouth once dailysitagliptin phosphate (JANUVIA ORAL) Take by mouth once daily. Activesitagliptin phosphate (JANUVIA ORAL) Take by mouth once daily. 0 Active sodium chloride 0.111 meq/ml nasal spray (2 sources)Start: 07-28-2025 End: 21-10-6512pocxsc chloride (Ashley) 0.65 % nasal spray Indications: Exacerbation of asthma, unspecified asthma severity, unspecified whether persistent ([facility]) Administer 1 spray into each nostril if needed for congestion. 30 mL 07/28/2025 07/28/2026 Activespironolactone 50 mg oral tablet (20 sources)Aldosterone AntagonistStart: 02-11-2023 End: 99-34-8686ajapidxklbewrh (ALDACTONE) 50 mg tablet Take 50 mg by mouth. 02/11/2023 Activeterconazole 4 mg/ml vaginal cream (3 sources)Azole AntifungalStart: 05-03-2025 End: 39-63-8515qblprgzdypv (Terazol 7) 0.4 % vaginal cream Indications: Yeast infection Insert 1 applicator into the vagina at bedtime for 7 days 45 g 1 05/03/2025 05/10/2025 ActivetraZODone hydrochloride 300 mg oral tablet (20 sources)Serotonin Reuptake InhibitorStart: 44-38-7500qtjb 1 tablet by mouth once dailytraZODone HCl 300 mg tablet Take 300 mg by mouth once daily. 10/16/2021 Active End: 27-03-2715xwol 1 tablet by mouth once daily at bedtimetraZODone (Desyrel) 100 mg tablet Take 1 tablet (100 mg) by mouth once daily at bedtime. 03/23/2024 Discontinued (Therapy completed)take 2 tablets by mouth at bedtimetraZODone HCl - 100 MG Oral Tablet TAKE 2 TABLETS AT BEDTIME. Quantity: 0 Refills: 0 Ordered: 11-Feb-2023 DO ActiveComment on above:Take 300 mg by mouth once daily. Completed/Discontinued Medications MedicationDrug Class(es)DatesSig (Normalized)Sig (Original)acetaminophen 325 mg oral tablet (20 sources)Start: 07-28-2025 End: 29-24-3827yvul 650 mg by mouth once as needed for qbfg210 mg, oral, Once, On Sat07/28/25 at 1545, For 1 dose, If ordered PRN for pain, nurse is permitted t o administer this medication for higher pain scores based on patient preference? YesStart: 07-28-2025 End: 59-54-6452eogq 2 tablets by mouth every six hours for painacetaminophen (Tylenol) 500 mg tablet Indications: Exacerbation of asthma, unspecified asthma severity, unspecified whether persistent ([facility]) Take 2 tablets (1,000 mg) by mouth every 6 hours if needed for mild pain (1 - 3) for up to 10 days. 30 tablet 07/28/2025 08/07/2025 ActiveStart: 02-10-2025 End: 15-02-9561hssh 2 tablets by mouth three times dailyAcetaminophen 500 mg tablet Discontinued 1000 MG PO Three times daily February 10, 2025 12:00am June 12, 2025 5:26pmStart: 06-06-2023 End: 10-07-7276Gkomuusmeubea Extra Strength 500 MG tablet 06/06/2023 Active Start: 51-49-5891abis 2 tablets by mouth every eight hoursacetaminophen (TYLENOL) 500 mg tablet take 2 tablets by mouth every 8 hours if needed 01/09/2022 ActiveComment on above:take 2 tablets by mouth every 8 hours if neededalbuterol 0.833 mg/ml / ipratropium bromide 0.167 mg/ml inhalation solution (1 source)Anticholinergic, beta2-Adrenergic AgonistStart: 07-28-2025 End: mL, nebulization, Every 20 min, First dose on Sat07/28/25 at 1545, For 3 dosesamoxicillin 875 mg / clavulanate 125 mg oral tablet (8 sources)Penicillin-class AntibacterialStart: 03-20-2025 End: 19-87-1343ixvm 1 tablet by mouth twice dailyAmoxicillin-Pot Clavulanate 875-125 mg tablet Discontinued 1 TAB PO Twice daily 14 7 March 20, 2025 12:00am June 12, 2025 5:26pmbiotin 10 mg oral capsule (6 sources)Start: 11-29-2020 End: 31-16-1749tvyw 1 capsule by mouth once dailyBiotin 10,000 mcg cap Take 1 capsule by mouth once daily. 0 11/29/2020 01/03/2024 Discontinued (Course of therapy completed)Comment on above:Take 1 capsule by mouth once daily. cholecalciferol 1.25 mg oral capsule (6 sources)Vitamin DStart: 03-06-2021 End: 18-05-3653euzsyxfuagqxktr, Vitamin D3, (VITAMIN D3) 1,250 mcg (50,000 unit) cap capsule One capsule weekly for 8 weeks then q.month 0 03/06/2021 01/03/2024 Discontinued (Course of therapy completed)Comment on above:One capsule weekly for 8 weeks then q.monthclindamycin 300 mg oral capsule (20 sources)Lincosamide AntibacterialStart: 04-15-2025 End: 11-36-9104gmvf 1 capsule by mouth every eight hoursClindamycin Hcl 300 mg capsule Discontinued 300 MG PO Every 8 hours 14 06April 15, 2025 12:00am June 12, 2025 5:27pmStart: 04-05-2024 End: 42-80-0253bpkv 2 capsules by mouth every six hoursClindamycin Hcl 150 mg capsule Discontinued 300 MG PO Q6H 80 April 05, 2024 12:00am November 22, 2024 1:52pmStart: 22-98-8055fxso 300 mg by mouth every six hoursClindamycin Hcl Active 300 MG PO Q6H 80 April 05, 2024 12:00amStart: 02-20-2022 End: 13-05-3973dhxr 2 capsules by mouth every six hoursClindamycin Hcl 150 mg capsule Discontinued 300 MG PO Q6H 80 February 20, 2022 12:00am March 08, 2022 10:50amStart: 02-20-2022 End: 97-53-8381qolb 300 mg by mouth every six hoursClindamycin Hcl Discontinued 300 MG PO Q6H 80 February 20, 2022 12:00am March 08, 2022 10:50amdoxycycline hyclate 100 mg oral tablet (20 sources)Tetracycline-class DrugStart: 03-20-2025 End: 20-73-9818uouz 1 capsule by mouth twice dailyDoxycycline Hyclate 100 mg capsule Discontinued 100 MG PO Twice daily 14 March 20, 2025 12:00amJuly 2024 5:27pmStart: 01-09-2022 End: 22-25-5018nnju 1 tablet by mouth twice dailydoxycycline (VIBRA-TABS) 100 mg tablet take 1 tablet by mouth twice a day for 10 days 01/09/2022 ActiveComment on above:take 1 tablet by mouth twice a day for 10 days0.5 ml dulaglutide 3 mg/ml auto-injector (20 sources)GLP-1 Receptor AgonistStart: 10-23-2023 End: 07-82-9944ppgrdbiyyyt (TRULICITY) 1.5 mg/0.5 mL pen injector Inject 1.5 mg subcutaneously. 10/23/2023 10/05/2024 Discontinued (Course of therapy completed) inject 1.5 mg by subcutaneous injection every weekdulaglutide (Trulicity) 1.5 mg/0.5 mL pen injector injection Inject 1.5 mg under the skin 1 (one) time per week. Activeinject 1 [IU] by subcutaneous injection every weekTrulicity 1.5 MG/0.5ML Subcutaneous Solution Pen-injector INJECT 1 UNIT Weekly Quantity: 0 Refills:0 Ordered: 11-Feb-2023 DO ActiveFLOWFLEX COVID-19 AG HOME TEST kit (16 sources)Start: 01-10-2022 End: 35-63-9797XEBYJYBB COVID-19 AG HOME TEST kitStart: 76-04-7164AUXPQFAI COVID-19 AG HOME TEST kitguaiFENesin 20 mg/ml oral solution (1 source)Start: 07-28-2025 End: 51-51-9239gooj 200 mg by mouth hvst029 mg, oral, Once, On Sat07/28/25 at 1545, For 1 doseibuprofen 800 mg oral tablet (20 sources)Nonsteroidal Anti-inflammatory DrugStart: 11-30-2022 End: 96-96-2889juyl 1 tablet by mouth three times daily as needed for pain Ibuprofen 800 mg tablet Discontinued 800 MG PO Three times daily as needed for Pain November 1:00am January 13, 2023 2:48am50 ml magnesium sulfate 40 mg/ml injection (1 source)Start: 07-28-2025 End: g, intravenous, at 150 mL/hr, Administer over 20 Minutes, Once, On Sat07/28/25 at 1640, For 1 dose, Indication for rapid magnesium sulfate IV infusion: Asthmameloxicam 15 mg oral tablet (20 sources)Nonsteroidal Anti-inflammatory DrugStart: 10-16-2021 End: 22-14-0549tbun 1 tablet by mouth once dailymeloxicam (MOBIC) 15 mg tablet Take 15 mg by mouth once daily. 0 10/16/2021 03/20/2024 Discontinued(Course of therapy completed) End: 00-27-7800ledm 1 capsule by mouth once dailymeloxicam submicronized 5 mg capsule Take 5 mg by mouth once daily. 03/23/2024 Discontinued (Therapy completed)Comment on above:Take 15 mg by mouth once daily.methocarbamol 750 mg oral tablet (9 sources)Muscle RelaxantStart: 02-10-2025 End: 90-26-1788eiew 1 tablet by mouth three times dailyMethocarbamol 750 mg tablet Discontinued 750 MG PO Three times daily February 10, 2025 12:00am June 02, 2025 10:08pmnaproxen 500 mg oral tablet (20 sources)Nonsteroidal Anti-inflammatory DrugStart: 10-23-2023 End: 24-36-3430jesq 1 tablet by mouth twice dailyNaproxen (Naprosyn) 500 mg tablet Discontinued 500 MG PO Twice daily November 22, 2024 1:00am February 10, 2025 2:58pmStart: 09-21-2022 End: 51-30-4541ndmt 1 tablet by mouth twice daily as needed for painNaproxen (Naprosyn) 500 mg tablet Discontinued 500 MG PO Twice daily as needed for pain September 21, 2022 12:00am January 13, 2023 2:48amStart: 06-29-2022 End: 68-78-2959quhg 1 tablet by mouth twice daily as needed for painNaproxen (Naprosyn) 500 mg tablet Discontinued 500 MG PO Twice daily as needed for pain June 29, 2022 12:00am September 13, 2022 9:21amStart: 03-08-2022 End: 32-30-9468ltif 1 tablet by mouth twice daily as needed for painNaproxen 500 mg tablet Discontinued 500 MG PO Twice daily as needed for pain March 08, 2022 12:00am May 11, 2022 10:31am administer with food or milknorethindrone 0.35 mg oral tablet (20 sources)Start: 05-11-2022 End: 16-79-1003infw 1 tablet by mouth once dailyNorethindrone (Contraceptive) 0.35 mg tablet Discontinued 0.35 MG PO Daily May 11, 2022 12:00am October 23, 2023 8:16pmpregabalin 75 mg oral capsule (16 sources)Start: 10-16-2021 End: 54-18-8426waih 1 capsule by mouth twice dailypregabalin (LYRICA) 75 mg capsule Take 75 mg by mouth twice daily. 0 10/16/2021 03/20/2024 Discontinued (Course of therapy completed)Comment on above:Take 75 mg by mouth twice daily.24 hr propranolol hydrochloride 80 mg extended release oral capsule (16 sources)beta-Adrenergic BlockerStart: 02-27-2020 End: 99-05-2145drdp 1 capsule by mouth every twenty-four hourspropranolol ER (INDERAL LA) 80 mg 24 hr capsule Take 80 mg by mouth. 0 02/27/2020 03/20/2024 Discontinued (Course of therapy completed)Comment on above:Take 80 mg by mouth. risperiDONE 1 mg oral tablet (16 sources)Atypical AntipsychoticStart: 10-16-2021 End: 68-80-8568glie 1 tablet by mouth twice dailyrisperiDONE (RISPERDAL) 1 mg tablet Take 1 mg by mouth twice daily. 0 10/16/2021 03/20/2024 Discontinued (Course of therapy completed)Comment on above:Take 1 mg by mouth twice daily. semaglutide, weight loss, (WEGOVY) 0.25 mg/0.5 mL pen injector (1 source)Start: 07-23-2024 End: 60-79-6803cptblblhqsi, weight loss, (WEGOVY) 0.25 mg/0.5 mL pen injector Indications: Diabetes mellitus type II, non insulin dependent (Multi) , BMI 38.0-38.9,adult Inject 0.25 mg under the skin every 7 days. 6 mL 1 07/23/2024 01/23/2025 Discontinued (Therapy completed)sulfamethoxazole 800 mg / trimethoprim 160 mg oral tablet (20 sources)Dihydrofolate Reductase Inhibitor Antibacterial, Sulfonamide AntimicrobialStart: 11-17-2024 End: 26-88-7304ckgc 1 tablet by mouth twice dailySulfamethoxazole-Trimethoprim (Bactrim Ds) 800-160 mg tablet Discontinued 1 TAB PO Twice daily November 17, 2024 1:00am February 10, 2025 2:59pmStart: 08-20-2023 End: 77-14-5953swtr 1 tablet by mouth twice dailySulfamethoxazole-Trimethoprim (Bactrim Ds) 800-160 mg tablet Discontinued 1 TAB PO Twice daily 13 09August 20, 2023 12:00am October 23, 2023 8:17pmStart: 07-01-2023 End: 66-12-5008acgv 1 tablet by mouth every twelve hoursSulfamethoxazole- Trimethoprim (Bactrim Ds) 800-160 mg tablet Discontinued 1 TAB PO Q12H 13 09July 01, 2023 12:00am October 23, 2023 8:17pmStart: 08-03-2022 End: 84-55-4636bdxx 1 tablet by mouth every twelve hoursSulfamethoxazole- Trimethoprim (Bactrim Ds) 800-160 mg tablet Discontinued 1 TAB PO Q12H 13 09August 03, 2022 12:00am September 13, 2022 9:22amStart: 01-10-2022 End: 64-66-0894nzyq 1 tablet by mouth twice dailySulfamethoxazole-Trimethoprim (Bactrim Ds) 800-160 mg tablet Discontinued 1 TAB PO Twice daily January 10, 2022 1:00am March 08, 2022 10:50amSUMAtriptan 100 mg oral tablet (20 sources)Serotonin-1b and Serotonin-1d Receptor AgonistStart: 03-08-2022 End: 71-91-3145Xryuwreqoqf Succinate Discontinued MG PO March 08, 2022 12:00am May 11, 2022 10:20amStart: 01-02-2022 End: 34-52-8823qztc 1 tablet by mouth once dailySUMAtriptan (IMITREX) 100 mg tablet take 1 tablet by mouth if needed to ABORT MIGRAINE once daily 30 DAY SUPPLY 01/02/2022 ActiveComment on above:take 1 tablet by mouth if needed to ABORT MIGRAINE once daily 30 DAY SUPPLYtiZANidine 4 mg oral tablet (16 sources)Central alpha-2 Adrenergic AgonistStart: 10-16-2021 End: 51-68-0541hbdu 1 tablet by mouth once dailytiZANidine (ZANAFLEX) 4 mg tablet take 1 tablet by mouth AT 8PM EVERY NIGHT 0 10/16/2021 03/20/2024 Discontinued (Course of therapy completed)Comment on above:take 1 tablet by mouth AT 8PM EVERY NIGHTtriamcinolone acetonide 1 mg/ml topical cream (20 sources)CorticosteroidStart: 11-30-2022 End: 09-18-3845Tojdtyqdhftry Acetonide 0.1 % cream Discontinued 1 APPLIC TOPICAL Daily November 30, 2022 1:00amNove2022 8:17pmStart: 06-01-2020 triamcinolone acetonide (NASACORT AQ) 55 mcg nasal inhaler Use 2 Sprays in the nose. 06/01/2020 ActiveComment on above:Use 2 Sprays in the nose.verapamil hydrochloride 180 mg extended release oral tablet (16 sources)Calcium Channel BlockerStart: 10-21-2021 End: 24-96-8436xmmy 1 tablet by mouth once dailyverapamil SR (CALAN SR, ISOPTIN SR) 180 mg CR tablet Take 180 mg by mouth once daily. 0 10/21/2021 03/20/2024 Discontinued (Course of therapy completed)Comment on above:Take 180 mg by mouth once daily. Problems Active Problems Problem ClassificationProblemDateDocumented DateEpisodic/ChronicAllergic reactions (20 sources)Eczema; Translations: [Dermatitis, unspecified]42-47-0447Hhsytobb Asthma (20 sources)Mild intermittent asthma; Translations: [Mild intermittent asthma, uncomplicated]Onset: 558233-66-7347IkxhbpcFtjmnrzdvp and other anemia (1 source)Anemia, unspecified; Translations: [ANEMIA UNSPECIFIED]Onset: 61-09-6813YdzvagbbOxwwyruw mellitus with complications (20 sources)Disorder of nervous system due to type 2 diabetes mellitus; Translations: [Type 2 diabetes mellituswith other diabetic neurological complication]Onset: 93-52-2704GezyxqcQqdydnje mellitus without complication (20 sources)Type 2 diabetes mellitus; Translations: [Type 2 diabetes mellitus without complications]Onset: 495464-06-7845AywphkeHhdumcrkl of lipid metabolism (20 sources)Hyperlipidemia; Translations: [Hyperlipidemia, unspecified]Onset: 425991-49-7408FqthyudOggokvlnxf disorders (20 sources)Gastroesophageal reflux disease without esophagitis; Translations: [Gastro-esophageal reflux disease without esophagitis]Onset: 11-01-2021 53-17-5308GxezrbhCmpelkeyx hypertension (15 sources)Essential hypertension; Translations: [Unspecified essential hypertension]Onset: 950760-77-1662ElmgtwxWkyxzets; including migraine (20 sources)Migraine; Translations: [Migraine, unspecified, without mention of intractable migraine without mention of status migrainosus]Onset: 12-30-2023 10-02-5170FhlygfrNrlnlwzibgpx diseases of female pelvic organs (1 source)Inflammatory disease of cervix uteri; Translations: [INFLAMMATORY DISEASE CERVIX UTERI]Onset: 47-28-6596LpggbsnkWteynnoww disorders (20 sources)Menorrhagia; Translations: [Excessive and frequent menstruation with regular cycle]Onset: 916733-81-6424AxqgsjoHjnk disorders (5 sources)Bipolar disorder, most recent episode depression; Translations: [Bipolar I disorder, most recent episode (or current) depressed, unspecified] ChronicMycoses (2 sources)Mycosis; Translations: [Candidiasis, unspecified]69-79-3864Qquaycto Nonspecific chest pain (20 sources)Chest wall pain; Translations: [Other chest pain]Onset: 03-01-2023 98-57-5395JjzridonVittnexnifhekn (9 sources)Disorder of joint of foot; Translations: [Primary osteoarthritis, unspecified ankle and foot]65-52-4482EuudvbwIaugp aftercare (7 sources)Abscess; Translations: [Encounter for follow-up examination after completed treatment for conditions other than malignant neoplasm]03-23-2025 EpisodicOther connective tissue disease (20 sources)Flexor tenosynovitis of finger; Translations: [Synovitis and tenosynovitis, unspecified]58-44-1196XhvahozaPvcxw connective tissue disease (6 sources)Pain of toes of bilateral feet; Translations: [Pain in right toe(s)] Onset: 391939-32-6707QlevrimsFudoq connective tissue disease (2 sources)Pain in right toe(s); Translations: [Pain of toes of both feet]Onset: 52-21-4894YgsfgccpEqmwx connective tissue disease (2 sources)Pain in left toe(s); Translations: [Pain of toes of both feet]Onset: 81-55-3488VsaxvanmAuhwe female genital disorders (1 source)Abnormal uterine and vaginal bleeding, unspecified; Translations: [ABNORMAL UTERINE VAGINAL BLEED UNS]Onset: 04-10-2409QbgmusnNujzh gastrointestinal disorders (20 sources)Irritable bowel syndrome; Translations: [Irritable bowel syndrome without diarrhea]Onset: 421213-51-5089CehzctqMmuah lower respiratory disease (5 sources)Dyspnea on exertion; Translations: [Shortness of breath]EpisodicOther lower respiratory disease (6 sources)Shortness of breath; Translations: [Shortness of breath]Onset: 81-42-7581NterjkjyPjpeu lower respiratory disease (5 sources)Dyspnea; Translations: [Shortness of breath]Onset: 12-30-2023 23-04-8328UugwktaqJsesu nervous system disorders (20 sources)Left tarsal tunnel syndrome; Translations: [Tarsal tunnel syndrome, left lower limb]Onset: 988859-89-2458UhyviqrKdunk nervous system disorders (20 sources)Neuropathy of lower limb; Translations: [Unspecified mononeuropathy of left lower limb]Onset: 98-61-8279IdaelvdAudyv nervous system disorders (20 sources)Difficulty walking; Translations: [Difficulty in walking, not elsewhere classified]Onset: 55-15-5114HszhptuMtvlq nervous system disorders (1 source)Difficulty in walking, not elsewhere classified; Translations: [Difficulty walking]Onset: 30-99-6720LtxprawYzalg nervous system disorders (20 sources)Postoperative pain ; Translations: [Other acute postprocedural pain] 33-81-5031CvkbqffxXzqjv nervous system disorders (20 sources)H/O: Disorder; Translations: [Personal history of other diseases of the nervous system and sense organs]02-81-1990DnvgqyhmIvipo nervous system disorders (2 sources)Other acute postprocedural pain; Translations: [Other acute postprocedural pain]Onset: 60-24-7626IsijgnxhNmybw non-traumatic joint disorders (20 sources)Pain in wrist; Translations: [Pain in left wrist]28-79-3115Pldqkozq Other non-traumatic joint disorders (5 sources)Pain of left wrist; Translations: [Pain in left wrist]06-29-2022 EpisodicOther nutritional; endocrine; and metabolic disorders (20 sources)Body mass index 30+ - obesity; Translations: [Body mass index (BMI) 39.0-39.9, adult]Onset: 668647-62-8515SxheagoXotqy nutritional; endocrine; and metabolic disorders (5 sources)Obesity; Translations: [Obesity, unspecified]ChronicOther nutritional; endocrine; and metabolic disorders (20 sources)Severe obesity; Translations: [Morbid (severe) obesity due to excess calories]Onset: 194432-29-0107UujsynoSbskb nutritional; endocrine; and metabolic disorders (2 sources)Body mass index (BMI) 33.0-33.9, adult; Translations: [Body mass index (BMI) 33.0-33.9, adult]Onset: 79-60-2677TvsbsyeFybgw nutritional; endocrine; and metabolic disorders (1 source)Body mass index (BMI) 36.0-36.9, adult; Translations: [Class 2 severe obesity due to excess calories with serious comorbidity and body mass index (BMI) of 36.0 to 36.9 in adult]Onset: 39-98-9421FypdkuzNdknh nutritional; endocrine; and metabolic disorders (1 source)Body mass index (BMI) 39.0-39.9, adult; Translations: [BMI 39.0-39.9,adult]Onset: 16-86-0211MkrtoykDrwtj skin disorders (20 sources)Abnormality of nail of toe; Translations: [Other nail disorders] Onset: 23-51-1046DfzltfzmDzhar skin disorders (20 sources)Sebaceous cyst of skin; Translations: [Sebaceous cyst]01-04-2023 EpisodicOther skin disorders (2 sources)Ingrowing toenail; Translations: [Ingrowing nail]79-16-3417Kanyknof Other skin disorders (8 sources)Hidradenitis suppurativa; Translations: [Hidradenitis suppurativa] 51-17-0163ZfjcoedoJtowh skin disorders (8 sources)Epidermoid cyst; Translations: [Epidermal cyst]Onset: 07-12-2025 98-57-3504FosdacokAtzcc upper respiratory infections (3 sources)Upper respiratory infection; Translations: [Acute upper respiratory infection, unspecified]Onset: 387060-91-3710SvjwlawjPvteeq media and related conditions (20 sources)Acute right otitis media; Translations: [Otitis media, unspecified, right ear]03-78-2300VciiyazjXtxcida cyst (15 sources)Cyst of ovary; Translations: [Unspecified ovarian cyst, unspecified side]59-87-0426JobuuzigFxeidfutdfx and intestinal abscess (9 sources)Abdominal ovtnldq26-95-2757RitxvhdsQyduvcdi codes; unclassified (20 sources)Obstructive sleep apnea of adult; Translations: [Obstructive sleep apnea (adult) (pediatric)]Onset: 512736-87-9811JwhznqjWyhdbsen codes; unclassified (20 sources)Hypersomnia; Translations: [Other hypersomnia]Onset: 11-15-2020 16-57-0073KaworlwGbpwlldo codes; unclassified (1 source)Obstructive sleep apnea (adult) (pediatric); Translations: [Obstructive sleep apnea of adult]Onset: 38-27-2451WkjpkfiNkbdxjhw codes; unclassified (5 sources)Edema of lower extremity; Translations: [Edema]EpisodicResidual codes; unclassified (2 sources)Other specified postprocedural states; Translations: [OTH SPECIFIED POSTPROCEDURAL STATES]Onset: 55-17-4659UgpqcuwyDomjjspx codes; unclassified (6 sources)Postoperative state; Translations: [Other specified postprocedural states]60-95-0852NfyniovgAvoxywen codes; unclassified (10 sources)Dependent edema; Translations: [Edema, unspecified]10-03-2024 EpisodicSkin and subcutaneous tissue infections (20 sources)Infected face; Translations: [Local infection of the skin and subcutaneous tissue, unspecified]Onset: 932152-57-8113LyklszzlKztosivhmnx; intervertebral disc disorders; other back problems (11 sources)Torticollis; Translations: [Torticollis]Onset: EpisodicSprains and strains (20 sources)Low back strain; Translations: [Strain of muscle, fascia and tendon of lower back, initial encounter]34-38-9781IgcyjgicEpswnbuiy-related disorders (20 sources)Nicotine dependence; Translations: [Nicotine dependence, cigarettes, uncomplicated]Onset: 493967-06-2381PckhpraMhkbrgi on above:11-25; Superficial injury; contusion (20 sources)Contusion of thigh; Translations: [Contusion of unspecified thigh, initial encounter]22-31-3142ViufrktjPlexedqivhdx (6 sources)drain removalUnclassified (1 source)Autogenerated ProblemOnset: 014766-54-5259Cstoozkecpnt (1 source)Class 2 severe obesity due to excess calories with serious comorbidity and body mass index (BMI) of36.0 to 36.9 in adult; Translations: [Class 2 severe obesity due to excess calories with serious comorbidity and body mass index (BMI) of 36.0 to 36.9 in adult]Onset: 13-67-1693Hyntkmjgfibo (1 source)Established PatientOnset: 58-11-5728Xmvutaw tract infections (15 sources)Urinary tract infectious disease; Translations: [Urinary tract infection, site not specified]21-94-3266Cmejoqbf Past or Other Problems Problem ClassificationProblemDateDocumented DateEpisodic/ChronicAbdominal pain (20 sources)Pain in female pelvis; Translations: [Pelvic and perineal pain] Onset: 040530-58-2835JbsloqumZbnhzroe foot deformities (20 sources)Abduction deformity of foot; Translations: [Valgus deformity, not elsewhere classified, left ankle]Onset: 084580-99-1577QqsfgnnkJanuzm of cervix (1 source)Low grade squamous intraepithelial lesion on cytologic smear of cervix (LGSIL); Translations: [LGSIL ON CYTOLOGIC SMEAR OF CERVIX]Onset: 12-06-2022 EpisodicComplication of device; implant or graft (20 sources)Pain due to internal prosthetic device; Translations: [Pain due to internal orthopedic prosthetic devices, implants and grafts, initial encounter] Onset: 420149-96-9530YfpulzmcDmwrndpwrq and other anemia (10 sources)Anemia; Translations: [Anemia, unspecified]Onset: 12-30-2023 47-19-5636SegdpdcmVdrxdtyu mellitus without complication (20 sources)Impaired fasting glycemia; Translations: [Impaired fasting glucose] Onset: 490796-11-7360TbdwvykvEqouq and electrolyte disorders (20 sources)Acute hypokalemia; Translations: [Hypokalemia]Onset: 01-11-2025 60-25-8022HibjpgcoGvcobgwnvvdif and screening for infectious disease (20 sources)Patient encounter status; Translations: [Encounter for screening for human papillomavirus (HPV)]Onset: 10-28-2021 Resolved: 000971-02-3464QixukdmbIvkwziivw of unspecified nature or uncertain behavior (11 sources)Neoplasm of uncertain behavior of skin of back; Translations: [Neoplasm of uncertain behavior of skin]Onset: 193714-50-0082Eqbgsqtk Nonmalignant breast conditions (20 sources)Breast tenderness; Translations: [Mastodynia]Onset: 06-12-2025 68-86-2533WbdieekcHtthx aftercare (20 sources)Long-term current use of oral hypoglycemic medication; Translations: [[facility] (current) use of oral hypoglycemic drugs]Onset: 321211-83-7884 EpisodicOther aftercare (6 sources)Treatment changed; Translations: [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]Onset: 532310-18-8926HhjzkeplLaojj aftercare (2 sources)Surgical follow-up; Translations: [Encounter for follow-up examination after completed treatment for conditions other than malignant neoplasm]94-28-7120ZqgqtmjvFwtvs aftercare (2 sources)Other half-way (current) drug therapy; Translations: [Other half-way (current) drug therapy]Onset: 04-52-2309KyustjnnNowdq aftercare (1 source)Encounter for change or removal of surgical wound dressing; Translations: [Encounter for change or removal of surgical wound dressing]Onset: 19-22-9587BksjqxceQqvgo circulatory disease (20 sources)Other specified symptoms and signs involving the circulatory and respiratory systems; Translations:[Other symptoms involving cardiovascular system]Onset: 192133-90-4124ZmrqlthgTwale connective tissue disease (20 sources)Fibromyalgia; Translations: [Fibromyalgia]Onset: 02-10-2021 38-16-5388CxdazzpmTcysq connective tissue disease (20 sources)Pain in left foot; Translations: [Pain in left foot]Onset: 145556-83-9827AfuoxbytVpmen connective tissue disease (20 sources)Pain in right foot; Translations: [Pain in right foot]Onset: 399676-32-8481NuubmxixArjxy connective tissue disease (20 sources)Neuralgia of nerve of left lower limb; Translations: [Neuralgia and neuritis, unspecified]Onset: 69-04-5513EcdabahaWdapk connective tissue disease (20 sources)Pain in both feet; Translations: [Pain in right foot]Onset: 80-74-8361OffgfutgHrjic connective tissue disease (1 source)Pain in right foot; Translations: [Pain in right foot]Onset: 73-37-3975OnimeohxQstgu hematologic conditions (20 sources)ESR raised; Translations: [Elevated erythrocyte sedimentation rate] Onset: 909179-48-5450XudwlgflEesbw nervous system disorders (20 sources)Acute postoperative pain; Translations: [Other acute postprocedural pain]Onset: 531366-49-0886TxvlpbldVuwtd non-traumatic joint disorders (20 sources)Chronic ankle pain; Translations: [Pain in left ankle and joints of left foot]Onset: 98-13-0986GaiampxzKdcrz screening for suspected conditions (not mental disorders or infectious disease) (17 sources)Electrocardiogram abnormal; Translations: [Nonspecific abnormal electrocardiogram [ECG] [EKG]]Onset: 22-10-6579OnqnjvoaHkzsk skin disorders (20 sources)Keratosis; Translations: [Epidermal thickening, unspecified]Onset: 20-69-1765QdkhgyqzViaua skin disorders (12 sources)Localized swelling, mass and lump, trunk; Translations: [Localized superficial swelling, mass, or lump]Onset: 785659-67-8199VtmkltzwYeric skin disorders (1 source)Scar conditions and fibrosis of skin; Translations: [Painful scar] Onset: 56-03-3172NeuwgvfvThwfi skin disorders (1 source)Other nail disorders; Translations: [Acquired dysmorphic toenail] Onset: 31-05-0235KuvddhubWntbldio codes; unclassified (20 sources)Disorder of digestive tract; Translations: [Acquired absence of other specified parts of digestive tract]Onset: 865418-42-5733Xdnvthhi Residual codes; unclassified (20 sources)Postprocedural state finding; Translations: [Other specified postprocedural states]Onset: 918464-37-7626MckiehfeUijbhqoj codes; unclassified (20 sources)History of operative procedure on foot; Translations: [Other specified postprocedural states]Onset: 55-25-5543FcxzyjwpIjqcgnvy codes; unclassified (20 sources)Painful scar; Translations: [Pain, unspecified]Onset: 11-01-2023 23-30-8809WujqzkrqVtsiqvca codes; unclassified (1 source)Localized edema; Translations: [Localized edema]Onset: 10-03-2024 EpisodicResidual codes; unclassified (1 source)Pain, unspecified; Translations: [Painful scar]Onset: 11-01-2023 EpisodicThyroid disorders (20 sources)Disorder of thyroid gland; Translations: [Disorder of thyroid, unspecified]Onset: 403002-59-7790NbeddtynFlofqsqnspru (9 sources)Abdominal abscess; Translations: [Abdominal abscess]07-01-2023 Unclassified (3 sources)Onset: 568621-00-5379 Results Test NameValueInterpretationReference RangeFacilityCNOVon 42-35-3046JIRXEkwmal Visit (LOORRM) GARY VIGIL ([id number]) 1985 F Date Time Provider Department 09/27/25 9:30 AM EULALIA FUENTES During your visit today, we recorded the following information about you: Eulalia Fuentes DPM 09/27/2025 10:10 AM Signed This 40 year old female presents today for post-op visit. Gary Vigil Date of service: September 27, 2025 Pain Scales: Verbal (Numeric Rating or Visual Analog Scale) Pain Level: 10 Pain Location: Toe Description: Aching, Contraction, Cramping, Cutting, Incision, Itching, Numbness, Sharp, Shooting, Sore, Spasm, Stabbing, Stiffness, Tenderness, Throbbing, Tightness Duration Amount of Time: 3 Duration Units: Weeks (post op) Frequency: Continuous Intervention/Comfort measure: Cold, Massage, Pillow support, Positioning, Rocking/holding Comments: She is here for a 3 week post op of bilateral foot. Surgery performed on 09/09/25. HPI: Patient presents for postop follow up. Denies nausea, vomiting, fever, chills, sweats, shortness of breath. No new complaints. Pain controlled. Some pain at second toe amputation RIGHT FOOT O: Neurovascular status is grossly intact. Surgical site without signs of infection, no dehisence. Incisions well coapted. No pain out of proportion. Calf soft non tender, no evidence of Deep Venous Thrombosis. A: Progressing well post op P: Sutures removed. Continue protective measures for the next several days until complete healing and resolution of all symptoms. Plan return to work this SaturdaySeptember 29 Activity as tolerated if no symptoms Return to the office PRN. I gave out my personal mobile telephone number [phone] to call at anytime if needed. Eulalia Fuentes DPM Referring Provider: SELF [200] Allergies As of Date: 09/27/2025 Noted Allergy Reaction KETOROLAC 06/01/2020 4 - Hives PREDNISONE 06/28/2021 14 - Other: See Comments TRAMADOL 06/01/2020 14 - Other: See Comments Date Reviewed: 09/27/2025 Reviewed by: Margie Pa OCCA - Fully Assessed Reason for Visit: Established Patient [175] Post Op [174] Established Patient [175] Post Op [174] Primary Visit Diagnosis:Post-operative state [Z98.890] Prescriptions as of 09/27/2025 - ondansetron (ZOFRAN) 8 mg tablet Take 1 tablet by mouth every 8 hours as needed for nausea/vomiting (take 30 minutes prior to narcotic pain medication). - semaglutide (OZEMPIC) 1 mg/dose (4 mg/3 mL) pen Inject 1 mg subcutaneously one time a week. - empagliflozin (JARDIANCE) 25 mg tablet Take 25 mg by mouth daily with breakfast. - spironolactone (ALDACTONE) 50 mg tablet Take 50 mg by mouth. - atorvastatin calcium (ATORVASTATIN ORAL) Take by mouth once daily. - sitagliptin phosphate (JANUVIA ORAL) Take by mouth once daily. - acetaminophen (TYLENOL) 500 mg tablet take [...] the nose. Problem List As Of Date 09/27/2025 Noted Resolved Acquired absence of other specified parts of di*02/03/2021 Disorder of thyroid, unspecified [E07.9] 11/01/2021 ESR (more content not included)...[facility] [id number] Visit (PDAVON) GARY VIGIL ([id number]) 1985 F Date Time Provider Department 09/14/25 10:15 AM EULALIA FUENTES PDAVON During your visit today, we recorded the following information about you: Eulalia Fuentes DPM 09/14/2025 11:25 AM Signed This 40 year old female presents today for post-op visit. Date of service: September 14, 2025 Patient presents with: Left Foot - Established Patient, Post Op Right Foot - Established Patient, Post Op /Pain Scales: Verbal (Numeric Rating or Visual Analog Scale) Pain Level: 10 Pain Location: (leeroy foot) Description: /, Aching, Contraction, Cramping, Cutting, Dressing Change, Incision, Itching, Numbness, Sharp, Shooting, Sore, Spasm, Stabbing, Stiffness, Tenderness, Throbbing, Tightness, Tingling, Wound Duration Amount of Time: 1 Duration Units: Weeks (post op) Frequency: Continuous Intervention/Comfort measure: Medication, Cold Comments: She is here for a 1 week post op of bilateral foot. Surgery performed on 09/09/25. HPI: Patient presents for postop follow up. Patient has been doing well with minimal discomfort. Denies nausea, vomiting, fever, chills, sweats, shortness of breath. No new complaints. O: Neurovascular status is grossly intact. Surgical site without signs of infection, no dehisence. Moderate residual edema consistent with surgical intervention. Incisions well coapted. No pain out of proportion. Alignment good. ROM as expected. Calf soft nontender, no signs of Deep Venous thrombosis. A: Progressing well post op P: Continue protective measures with support. New sterile dressings applied, post op shoe to allow very limited weight bearing. Return to the office in 2 weeks for reevaluation or sooner should problems arise. Call if any problems arise prior to next visit. I gave out my personal mobile telephone number [phone] to call at anytime if needed. 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 Taras FerroPMich. Referring Provider: SELF [200] Allergies As of Date: 09/14/2025 Noted Allergy Reaction KETOROLAC 06/01/2020 4 - Hives PREDNISONE 06/28/2021 14 - Other: See Comments TRAMADOL 06/01/2020 14 - Other: See Comments Date Reviewed: 09/14/2025 Reviewed by: Margie Pa OCCA - Fully Assessed Reason for Visit: Established Patient [175] Post Op [174] Established Patient [175] Post Op [174] Primary Visit Diagnosis:Post-operative state [Z98.890] Prescriptions as of 09/14/2025 - oxyCODONE-acetaminophen (PERCOCET) 5-325 mg tablet Take 1 tablet by mouth every 6 hours as needed for pain for up to 7 days. - ondansetron (ZOFRAN) 8 mg tablet Take 1 tablet by mouth every 8 hours as needed for nausea/vomiting (take 30 minutes prior to narcotic pain medication). - semaglutide (OZEMPIC) 1 mg/dose (4 mg/3 mL) pen Inject 1 mg subcutaneously one time a week. - empagliflozin (JARDIANCE) 25 mg tablet Take 25 mg by mouth daily with breakfast. - spironolactone (ALDACTONE) 50 mg tablet Take 50 mg by mouth. - atorvastatin calcium (ATORVASTATIN ORAL) Take by mouth once daily. - sitagliptin phosphate (JANUVIA ORAL) Take by mouth once daily. - acetaminophen (TYLENOL) 500 mg tablet take [...] TAKE A SECOND TAB... (REFER TO PRESCRIPTION NOTES) (more content not included)...[facility] POSTPROC EVALon [id number] POSTPROC EVALHNO ID: [id number] Author: PASCUAL MAIN II, DO Service: Anesthesiology Author Type: Anesthesiologist Type: Anesthesia Postprocedure Evaluation Filed: 09/09/2025 11:58 Note Text: POST ANESTHESIA EVALUATION NOTE : 1985 Procedure Summary Date: 09/09/25 Room / Location: [address] Anesthesia Start: 948 Anesthesia Stop: 1050 Procedure: EXCISION OF NAIL AND MATRIX FOR PERMANENT REMOVAL (Bilateral: Toe second ) Diagnosis: Acquired dysmorphic toenail Pain in toes of both feet Difficulty walking Pain of toes of both feet (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]) (Pain in toes of both feet [M79.674, M79.675]) (Difficulty walking [R26.2]) (Pain of toes of both feet [M79.674, M79.675]) Surgeons: Eulalia Fuentes DPM Responsible Provider: Pascual Mani II, DO Anesthesia Type: MAC ASA Status: 3 Anesthesia Type: MAC Last Vitals Vitals Value Taken Time BP 144/89 09/09/25 11:40 Temp 36.3 ?C (97.3 ?F) 09/09/25 11:10 Pulse 81 09/09/25 11:40 Resp 16 09/09/25 11:40 SpO2 99 % 09/09/25 11:40 Post Anesthesia Patient Status Patient Evaluation: PACU. PACU/ICU Patient Condition: stable. Neurological Status: aware and responsive. Pulmonary Status: breathing comfortably on room air Airway Control: returned to baseline unsupported. Cardiovascular Status: stable. Pain Management: clinically adequate Postoperative Hydration: acceptable. Intraoperative Events: no significant anesthesia events Post Operative Nausea/Vomiting Status: no significant post operative nausea or vomiting Recommendation: continue current plan of care. Anesthesia Observations No Documentation SIGNATURE: Pascual Main II, DO PATIENT NAME: Gary Vigil DATE: September 09, 2025 TIME: 11:58 AM CSN: [id number] PRE[facility]OPon [id number] PRE-OPHNO ID: [id number] Author: PASCUAL MAIN II, DO Service: Anesthesiology Author Type: Anesthesiologist Type: Anesthesia Preprocedure Evaluation Filed: 09/09/2025 09:18 Note Text: ANESTHESIOLOGY DAY OF SURGERY NOTE : 1985 Procedure Information Date/Time: 09/09/25929 Procedure: EXCISION OF NAIL AND MATRIX FOR PERMANENT REMOVAL (Bilateral: Toe second ) Location: [place] [address] / [facility] Surgeons: Eulalia Fuentes DPM Estimated body mass index is 34.95 kg/m? as calculated from the following: Height as of 08/26/25: 164 cm (5' 4.57 ). Weight as of 08/26/25: 94 kg (207 lb 3.7 oz). Most recent hematocrit and potassium results: No results found for this basename: HCT,HEMATOCRIT,K,POTASSIUM Relevant Problems ANESTHESIA (+) Obstructive sleep apnea of adult CARDIO (+) Migraines ENDO (+) Type 2 diabetes mellitus (HCC) (+) Type 2 diabetes mellitus with diabetic polyneuropathy (HCC) GI (+) Gastro-esophageal reflux disease without esophagitis NEURO-PSYCH (+) Migraines PULMONARY (+) Mild intermittent asthma without complication (HCC) (+) Obstructive sleep apnea of adult I - PHYSICAL EVALUATION AIRWAY Patient intubated: No. Tracheostomy tube not present Mallampati: III. TM distance: >3 FB. Neck ROM: limited extension. Mouth openin FB. Short neck: no. Thick neck: yes DENTAL Dental findings: teeth intact. Additional exam findings: yes. CARDIOVASCULAR Rhythm: regular Rate: normal PULMONARY Breath sounds clear to auscultation. II - ANESTHESIA PLAN ASA Score: 3 Anesthetic Plan: MAC The patient is a current smoker. NPO Status: adequate Monitoring Plan Monitoring plan: standard ASA. Post Procedure Analgesic Plan Postoperative analgesic plan: parenteral or oral opioids. Informed Consent Anesthetic risks, benefits, alternatives, personnel and consent discussed: yes. Patient / Responsible Republican agrees to proceed: yes Patient / Surrogate agrees to blood products: Yes Vitals Value Taken Time BP 157/92 09/09/25 08:49 Pulse Resp 18 09/09/25 08:49 Temp 36.4 ?C (97.5 ?F) 09/09/25 08:49 SpO2 100 % 09/09/25 08:49 Facility-Administered Medications as of 09/09/2025 Medication Dose Route Frequency dextrose 10% iv bolus 12.5 g INTRAVENOUS PRN Or glucagon 0.5-1 mg injection (GLUCAGEN) 0.5-1 mg INTRAMUSCULAR PRN lidocaine (PF) 10 mg/mL (1 %) 1-2 mg injection (XYLOCAINE) 0.1-0.2 mL INTRADERMAL PRN lactated ringers iv infusion 5-30 mL/hr INTRAVENOUS CONTINUOUS NaCl 0.9% iv flush bag 20 mL INTRAVENOUS PRN ceFAZolin 2 g in dextrose (iso-osmotic) 50 mL (ANCEF,KEFZOL) 2 g INTRAVENOUS Pre-Op Once ondansetron (PF) 4 mg injection (ZOFRAN) 4 mg INTRAVENOUS Pre-Op Once famotidine 20 mg injection (PEPCID) 20 mg INTRAVENOUS Pre-Op Once Outpatient Medications as of 09/09/2025 Medication Sig semaglutide (OZEMPIC) 1 mg/dose (4 mg/3 mL) pen Inject 1 mg subcutaneously one time a week. sitagliptin phosphate (JANUVIA ORAL) Take by mouth once daily. albuterol HFA (PROVENTIL HFA, VENTOLIN HFA) 90 mcg/actuation inhaler Inhale 2 Puffs as instructed every 6 hours as needed. FLOVENT HFA 110 mcg/actuation inhaler inhale 2 puffs by mouth and INTO THE LUNGS twice a day fluticasone (FLONASE) 50 mcg/actuation nasal spray instill 1 spray into each nostril twice a day omeprazole (PRILOSEC) 20 mg capsule Take 20 mg by mouth once daily. empagliflozin (JARDIANCE) 25 mg tablet Take 25 mg by mouth daily with breakfast. mupirocin (BACTROBAN) 2 % ointment Apply 1 application to affected area two times a day. (Patient not taking: Reported on 08/26/2025) spironolactone (ALDACTONE) 50 mg tablet Take 50 mg by mouth. atorvastatin calcium (ATORVASTATIN ORAL) Take by mouth once daily. mupirocin (BACTROBAN) 2 % ointment Apply 1 application to affected area two times a day. (Patient not taking: No sig reported) acetaminophen (TYLENOL) 500 mg tablet take 2 tablets by mouth every 8 hours if needed amitriptyline (ELAVIL) 50 mg tablet Take 50 mg by mouth daily at bedtime. built.ioTOUCH ULTRA TEST test strip twice daily. TEST TWICE DAILY VRAYLAR 4.5 mg capsule take 1 take by mouth once daily citalopram (CELEXA) 20 mg tablet Take 20 mg by mouth daily at bedtime. doxycycline (VIBRA-TABS) 100 mg tablet take 1 tablet by mouth twice a day for 10 days (Patient not taking: Reported on 08/26/2025) etodolac (LODINE-XL) 500 mg 24 hr tablet take 1 tablet by mouth once daily NEEDED FOR PAIN with food furosemide (LASIX) 40 mg tablet take 1 tablet by mouth once daily if needed for SWELLING AJOVY AUTOINJECTOR 225 mg/1.5 mL auto-injector inject subcutaneously as directed loratadine (CLARITIN) 10 mg tablet Take 10 mg by mouth once daily. lidocaine (SALONPAS) 4 % patch Apply 1 Patch as directed q 24 HR. montelukast (SINGULAIR) 10 mg tablet Take 10 mg by mouth. potassium chloride ER (K-DUR, KLOR-CON) 20 mEq tablet Take 20 mEq by mouth. prazosin (MINIPRESS) 5 mg cap Take 5 mg by (more content not included)...Normal [facility] Winifred Snowden [id number] OP RAMOS ID: [id number] Author: EULALIA FUENTES DPM Service: Podiatry Author Type: Physician Type: Brief Op Note Filed: 09/10/2025 14:51 Note Text: OPERATIVE/PROCEDURE REPORT LOG ID: [id number] SURGERY/PROCEDURE DATE: 09/09/2025 INCISION/PROCEDURE START TIME: 10:13 AM INCISION CLOSE/PROCEDURE END TIME: 10:41 AM SURGEON(S)/PROCEDURALIST(S) AND SCIENCE CENTER DISPLAY BUILDER(S): Surgeons and Role: * Eulalia Fuentes DPM - Primary * Jolene Valderrama DPM - Resident - Assisting * Ursula Gastelum DPM - Resident - Assisting No Additional Staff SURGERY/PROCEDURE(S): RIGHT FOOT Amputation distal second toe distal phalanx with head intermediate phalanx and entire toenail Excision hyperkeratosis medial great toe LEFT FOOT Amputation distal second toe distal phalanx with head intermediate phalanx and entire toenail Slant back prodecure lateral border nail LEFT third toenail Excision hyperkeratosis plantar foot great toe medial and plantar lateral chronic intractable plantar keratosis ANESTHESIA: Monitored Anesthesia Care SURGERY/PROCEDURE DETAILS: The patient was identified in the preoperative holding area. The correct operative site was marked and the consent was confirmed. A multidisciplinary huddle was completed to ensure preparedness for the upcoming procedure. The patient was brought to the operating room by anesthesia staff. All monitors were applied per anesthesia. All dependent bony prominences were carefully padded. After induction with monitored anesthesia a local field block was performed to the second toe RIGHT and LEFT foot utilizing approximately 7ccs total of a 1:1 mix of 2% Lidocaine plain and 0.5% Marcaine plain. Prophylaxis was obtained with IV antibiotic administered within 30 minutes prior to the incision. The skin was formally prepped was draped in the standard sterile fashion. A multidisciplinary timeout was called to confirm the patient's name and date of , procedure to be performed, correct operative site and laterality, all necessary equipment in the room, proper radiographic images, and delivery of perioperative antibiotics/medications. Attention directed to the right and left foot. Tourni-cot digital tourniquet was applied to the base of the second toe right and left foot. Utilized #15 scalpel blade 2 converging similar incisions were performed just proximal to the proximal phalanx on the dorsal aspect of the second toe transversely curving distally to create a plantar flap. Great care was taken prevent injury to the underlying structures. Sagittal bone saw was used to transversely resect the head of the intermediate phalanx and the head of the intermittent phalanx along with the distal phalanx entire toenail matrix and adjacent soft tissues were removed from surgical field preserving distal plantar flap. Tourni-cot was removed adequate hemostasis was achieved with electrocautery. Wounds thoroughly irrigated digital flap was reapproximated with 3-0 Prolene. Right foot hyperkeratosis medial aspect great toe was removed with a #15 scalpel blade. In summary I performed an non excisional debridement RIGHT foot medial aspect right great toe with removal of nonviable hyperkeratotic tissue to the level of the dermis.. Instrumentation utilized included #15 scalpel blade. Tissue removed included thick hyperkeratosis medial aspect right great toe. Attention was then directed to the left foot Ingrown lateral margin left third toenail was noted. Slant back procedure was performed removing the distal lateral nail portion as well as small portions of the hyperkeratosis as needed to relieve pressure from the nail. No bleeding was noted. In order to perform a complete physical exam, one nail slant back was performed. This incidental service is integral to the evaluation and management visit in order to appropriately manage and treat the patient (for their complaint or for this visit). Attention directed to the left foot medial left great toe and plantar lateral deep hyperkeratosis left forefoot plantar to the 4th and 5th metatarsal head area. Utilized #15 scalpel blade thick hyperkeratosis and intractable plantar keratosis was removed to healthy dermal tissue. In summary I performed an non excisional debridement LEFT foot medial aspect LEFT great toe and plantar chronic intractable plantar keratosis with removal of nonviable hyperkeratotic tissue to the level of the dermis.. Instrumentation utilized included #15 scalpel blade. Tissue removed included thick hyperkeratosis medial aspect right great toe and chronic intractable plantar keratosis plantar LEFT forefoot. Wounds second toe bilateral were dressed with Adaptic, sterile dressings, Kerlix roll and Dinesh wrap. The patient tolerated the anesthesia and procedure very well, was transferred to PACU with all vital signs stable and brisk cap refill time noted to all toes. Patient's intraoperative and postoperative disposition w (more content not included)...[facility] NOTHNO ID: [id number] Author: EULALIA FUENTES DPM Service: Podiatry Author Type: Physician Type: Brief Op Note Filed: 09/09/2025 10:43 Note Text: BRIEF OPERATIVE / PROCEDURE NOTE LOG ID: [id number] SURGERY/PROCEDURE DATE: 09/09/2025 INCISION/PROCEDURE START TIME: 10:13 AM INCISION CLOSE/PROCEDURE END TIME: 10:41 AM SURGEON(S)/PROCEDURALIST(S) AND SCIENCE CENTER DISPLAY BUILDER(S): Surgeons and Role: * Eulalia Fuentes DPM - Primary * Jolene Valderrama DPM - Resident - Assisting * Ursula Gastelum DPM - Resident - Assisting No Additional Staff SURGERY/PROCEDURE(S): RIGHT FOOT Amputation distal second toe distal phalanx with head intermediate phalanx and entire toenail Excision hyperkeratosis medial great toe LEFT FOOT Amputation distal second toe distal phalanx with head intermediate phalanx and entire toenail Slant back prodecure lateral border nail LEFT third toenail Excision hyperkeratosis plantar foot great toe medial and plantar lateral chronic intractable plantar keratosis ANESTHESIA: Monitored Anesthesia Care FINDINGS: consistent with dystrophic toenail, ingrown toenail second toe bilateral , ingrown toenail lateral border nail third toe LEFT FOOT , hyperkeratosis bilateral ESTIMATED BLOOD LOSS: minimal SPECIMENS: second toe RIGHT and LEFT FOOT CLOSURE TECHNIQUE: Primary PRE-OP/PRE-PROCEDURE DIAGNOSIS: RIGHT FOOT dystrophic toenail second toe ingrown toenail , hyperkeratosis medial great toe LEFT FOOT dystrophic toenail second toe ingrown toenail , hyperkeratosis medial great toe , ingrown toenail lateral border nail third toe , hyperkeratosis chronic intractable plantar keratosis plantar lateral LEFT forefoot POST-OP/POST-PROCEDURE DIAGNOSIS: Same as Preop SIGNATURE: Eulalia Fuentes DPM PATIENT NAME: Gary Vigil DATE: September 09, 2025 TIME: 10:39 AMNormalJ.W. Ruby [facility] NOon [id number] NOHNO ID: [id number] Author: EULALIA FUENTES DPM Service: Podiatry Author Type: Physician Type: Operative Report Filed: 09/17/2025 18:20 Note Text: OPERATIVE/PROCEDURE REPORT LOG ID: [id number] SURGERY/PROCEDURE DATE: 09/09/2025 INCISION/PROCEDURE START TIME: 10:13 AM INCISION CLOSE/PROCEDURE END TIME: 10:41 AM SURGEON(S)/PROCEDURALIST(S) AND SCIENCE CENTER DISPLAY BUILDER(S): Surgeons and Role: * Eulalia Fuentes DPM - Primary * Jolene Valderrama DPM - Resident - Assisting * Ursula Gastelum DPM - Resident - Assisting No Additional Staff SURGERY/PROCEDURE(S): RIGHT FOOT Amputation distal second toe distal phalanx with head intermediate phalanx and entire toenail Excision hyperkeratosis medial great toe LEFT FOOT Amputation distal second toe distal phalanx with head intermediate phalanx and entire toenail Slant back prodecure lateral border nail LEFT third toenail Excision hyperkeratosis plantar foot great toe medial and plantar lateral chronic intractable plantar keratosis ANESTHESIA: Monitored Anesthesia Care SURGERY/PROCEDURE DETAILS: The patient was identified in the preoperative holding area. The correct operative site was marked and the consent was confirmed. A multidisciplinary huddle was completed to ensure preparedness for the upcoming procedure. The patient was brought to the operating room by anesthesia staff. All monitors were applied per anesthesia. All dependent bony prominences were carefully padded. After induction with monitored anesthesia a local field block was performed to the second toe RIGHT and LEFT foot utilizing approximately 7ccs total of a 1:1 mix of 2% Lidocaine plain and 0.5% Marcaine plain. Prophylaxis was obtained with IV antibiotic administered within 30 minutes prior to the incision. The skin was formally prepped was draped in the standard sterile fashion. A multidisciplinary timeout was called to confirm the patient's name and date of , procedure to be performed, correct operative site and laterality, all necessary equipment in the room, proper radiographic images, and delivery of perioperative antibiotics/medications. Attention directed to the right and left foot. Tourni-cot digital tourniquet was applied to the base of the second toe right and left foot. Utilized #15 scalpel blade 2 converging similar incisions were performed just proximal to the proximal phalanx on the dorsal aspect of the second toe transversely curving distally to create a plantar flap. Great care was taken prevent injury to the underlying structures. Sagittal bone saw was used to transversely resect the head of the intermediate phalanx and the head of the intermittent phalanx along with the distal phalanx entire toenail matrix and adjacent soft tissues were removed from surgical field preserving distal plantar flap. Tourni-cot was removed adequate hemostasis was achieved with electrocautery. Wounds thoroughly irrigated digital flap was reapproximated with 3-0 Prolene. Right foot hyperkeratosis medial aspect great toe was removed with a #15 scalpel blade. In summary I performed an non excisional debridement RIGHT foot medial aspect right great toe with removal of nonviable hyperkeratotic tissue to the level of the dermis.. Instrumentation utilized included #15 scalpel blade. Tissue removed included thick hyperkeratosis medial aspect right great toe. Attention was then directed to the left foot Ingrown lateral margin left third toenail was noted. Slant back procedure was performed removing the distal lateral nail portion as well as small portions of the hyperkeratosis as needed to relieve pressure from the nail. No bleeding was noted. In order to perform a complete physical exam, one nail slant back was performed. This incidental service is integral to the evaluation and management visit in order to appropriately manage and treat the patient (for their complaint or for this visit). Attention directed to the left foot medial left great toe and plantar lateral deep hyperkeratosis left forefoot plantar to the 4th and 5th metatarsal head area. Utilized #15 scalpel blade thick hyperkeratosis and intractable plantar keratosis was removed to healthy dermal tissue. In summary I performed an non excisional debridement LEFT foot medial aspect LEFT great toe and plantar chronic intractable plantar keratosis with removal of nonviable hyperkeratotic tissue to the level of the dermis.. Instrumentation utilized included #15 scalpel blade. Tissue removed included thick hyperkeratosis medial aspect right great toe and chronic intractable plantar keratosis plantar LEFT forefoot. Wounds second toe bilateral were dressed with Adaptic, sterile dressings, Kerlix roll and Dinesh wrap. The patient tolerated the anesthesia and procedure very well, was transferred to PACU with all vital signs stable and brisk cap refill time noted to all toes. Patient's intraoperative and postoperative dispositio (more content not included)...NormalPromedica Toledo HospitalPathology biopsy report Paul (Tiss)on [id number] DISCLAIMERNormalCOhioHealth O'Bleness HospitalComment on above:Order Comment: Specimen Type: TISSUE SPECIMENOrdering Facility: [facility] Address: [address] [place], [place] [address]Result Comment: Laboratory Developed Test (LDT) Disclaimer: Performance characteristics of immunohistochemical, immunofluorescent, and chromogenic in-situ hybridization tests have been determined by the performing laboratory within the [facility] Department of Pathology and Laboratory Medicine ([facility], [facility], [facility], [facility], [facility], [facility], or [facility]) in a manner consistent with CLIA requirements. One or more of these tests may not have been cleared or approved by the FDA. The [facility] Department of Pathology and Laboratory Medicineis regulated under CLIA as qualified to perform high-complexity testing. These tests are used for clinical purposes. These should not be regarded as investigational or for research. Positive and negative controls stain appropriately.Performed By: #### 48414-5 ####[facility] LABIA [id number] [place] [id number] [facility]OSPITALCASE REPORTNormMarion HospitalComment on above:Order Comment: Specimen Type: TISSUE SPECIMENOrdering Facility: [facility] Address: [address] [place], [place] [address]Result Comment: Surgical Pathology Report Case: [id number] Authorizing Provider: Eulalia Fuentes DPM Collected: 09/09/2025 10:25 AM Ordering Location: Ambulatory Surgery Received: 09/09/2025 01:52 PM Pathologist: Martina Handy MD Specimens: A) - Digit, Left Foot, Second, partial B) - Digit, Right Foot, Second, partialPerformed By: #### 02415-9 ####[facility] LABIA [id number] [address] OF [facility] HOSPITALCLINICAL HISTORYNoSalem City Hospital on above:Order Comment: Specimen Type: TISSUE SPECIMENOrdering Facility: [facility] Address: [address] [place], [place] [address]Nlgryo Comment: Pre-op diagnosis: 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] Pain in toes of both feet [M79.674, M79.675] Difficulty walking [R26.2] Pain of toes of both feet [M79.674, M79.675] Associated Diagnoses: L60.8 - Acquired dysmorphic toenail M79.674, M79.675 - Pain in toes of both feet R26.2 - Difficulty walking M79.674, M79.675 - Pain of toes of both feetPerformed By: #### 56471-4 ####[facility] LABCLIA [id number] [place] [id number] [facility] on above:Order Comment: Specimen Type: TISSUE SPECIMENOrdering Facility: [facility] Address: [address] [place], [place] [address]Result Comment: A. Digit, second, left foot, partial excision: - Bone and soft tissue with degenerative and reactive changes. B. Digit, second, right foot, partial excision: - Bone and soft tissue with degenerative and reactive changes. at 1204 EDTPerformed By: #### 77584-5 ####[facility] LABCLIA [id number] [place] [id number] [facility] PERFORMING LABNormal [facility] on above:Order Comment: Specimen Type: TISSUE SPECIMENOrdering Facility: [facility] Address: [address] [place], [place] [address]Result Comment: Diagnostic interpretation performed at: [facility], [address] [place] [address] CLIA# [id number] Loader: ADINA Barneserformed By: #### 06041-5 ####[facility] LABIA [id number] [address] DESCRIPTIONShelby [facility] on above: Order Comment: Specimen Type: TISSUE SPECIMENOrdering Facility: [facility] Address: [address] [place], [place] [address]Result Comment: A. Digit, Left Foot, Second Received in formalin labeled digit, left foot, second, partial consist of a portion of distal digit (2.0x 1.5 x 1.4 cm). The segment contains pink rubbery skin, and a thickened brown nail. Sectioning reveals firm yellow-mcmullen bone, and yellow-mcmullen soft tissue. Bag Sealer sections are submitted in cassette A1, following decalcification in formic acid. B. Digit, Right Foot, Second Received in formalin labeled Digit, right foot, second of a portion of distal digit (1.9 x 1.5 x 2 cm). The segment contains pink rubbery skin, and thickened brown nail. Sectioning reveals firm yellow bone and yellow-mcmullen soft tissue. Bag Sealer sections are submitted in cassette B1, followingdecalcification in formic acid MBB/MLG 09/10/25 11:24 AM Gross examination at [facility], [address] [place], [place], [address]Cyyhlhxdv By: #### 98071-7 ####[facility] LABCLIA [id number] [address]ETHISTORY PHYSICALon [id number] PHYSICALHNO ID: [id number] Author: SEFERINO GOLD PA-C Service: ? Author Type: Physician Countersinker Balance Screw Hole Type: H&P Filed: 08/27/2025 07:09 Note Text: [facility] HISTORY AND PHYSICAL EXAMINATION SERVICE DATE: 08/26/2025 SERVICE TIME: 12:26 PM PRIMARY CARE PHYSICIAN: No primary care provider on file. REASON FOR VISIT: Gary Vigil is a 40 year old female who is scheduled for Bilateral - EXCISION OF NAIL AND MATRIX FOR PERMANENT REMOVAL at the request of Dr. Eulalia Fuentes for consultation. My final recommendation will be communicated back to the requesting physician by way of shared medical record or letter. Assessment Patient has the following medical conditions which may affect farhat-operative course: 1. Pre-op evaluation (Primary) Surgery scheduled for 09/09/2025 ordered A1c Message sent to surgeon asking what range of A1C is he wiling to proceed with. surgeon reply for toenail probably not as critical so below 9 should be OK Addendum August 27, 2025 7:09 AM A1c 8.1 as of 08/26/2025 - ok to proceed. 2. Class 2 severe obesity due to excess calories with serious comorbidity and body mass index (BMI) of 36.0 to 36.9 in adult Body mass index is 34.95 kg/m?. Encouraged lifestyle modifications. 3. Cigarette nicotine dependence without complication advised to not smoke the day of surgery advised cessation 4. Mild intermittent asthma without complication (HCC) Chronic and stable continue medications Triggered by changes in season Last required albuterol few times last month Denies SOB or wheezing Today: SpO2: 94 % on RA 5. Obstructive sleep apnea of adult not compliant with machine due to recall 6. Hyperlipidemia, unspecified hyperlipidemia type Denies Hx of [place], chest pain, carotid disease, or peripheral vascular disease 7. Gastro-esophageal reflux disease without esophagitis Chronic and stable and compliant with medications 8. Type 2 diabetes mellitus with other specified complication, without long-term current use of insulin (HCC) uncontrolled, patient reports fasting am gluclose 200-300 Advised patient that A1C is recommended to be below 9.0 in order to proceed with surgery per PACC guidelines. Fasting blood sugars will be checked day of surgery and recommended to be under 300 in order to proceed with surgery. Message sent to surgeon asking what range of A1C is he wiling to proceed with. Continue medications. Repeat blood work ordered today - HEMOGLOBIN A1C; Future Encouraged lifestyle modifications. Hemoglobin A1C (%) Date Value 08/26/2025 8.1 03/20/2024 8.2 Preoperative Instructions for Patient's with Diabetes Mellitus/ Prediabetes Oral Medication Instructions: DO NOT TAKE THE MORNING OF SURGERY: Metagliptin (Sitagliptin/Metformin) please HOLD 3 DAYS PRIOR TO SURGERY: Empagliflozin/Jardiance Injectable Medication Instructions: advised clear liquid diet the day before surgery please HOLD THE DAY OF SURGERY - HOLD THE DAY OF SURGERY Semaglutide (Ozempic)/(WEGOVY) (Rybelsus) ANESTHESIA FINDINGS: Intubation History: No history of difficult intubation. No abnormal airway history Significant Anesthesia Considerations: none Airway History: No history of difficult airway No abnormal airway history [place] Activity Status Index: METS: Walk indoors, such as around the house (1.75 METs) Do light work around the house, such as dusting or washing dishes (2.70 METs) Take care of self; that is eating, dressing, bathing, using the toilet (2.75 METs) Walk a block or two on level ground (2.75 METs) Do moderate work around the house, such as vacuuming, sweeping floors, or carrying in groceries (3.50 METs) Climb a flight of stairs or walk up a hill (5.50 METs) DASI Score: 18.95 Patient denies any chest pain or undue shortness of breath with the above physical activity. Clinical Frailty Scale: 3. Well, with treated comorbid disease STOP-Bang Score: STOP-Bang Score: (Positive for KADEN and not compliant with machine) most recent airway history - 05/01/2024, EXCISION BENIGN CYST/MASS LESION LOWER EXTREMITY < 0.5CM (Left: Foot) Final Airway Details Final airway type: supraglottic airway Number of attempts at approach: 1 Final Supraglottic Airway: IGEL Size 4 Seal Adequate: yes Airway not difficult I - PHYSICAL EVALUATION AIRWAY Patient intubated: No. Tracheostomy tube not present Mallampati: II. TM distance: >3 FB. Neck ROM: full ROM without neurological symptoms. Mouth openin FB. Short neck: no. Additional comments: large tongue . Thick neck: no Lip Bite Test: I Microretrognathia/Micronagthia/Recessed Chin: No DENTAL Dental findings: teeth intact. II - ANESTHESIA PLAN Informed Consent Prepared for surgery: This patient is optimally prepared for surgery. CONSULTS: Patient does not require consults for optimization at this time. The Followi (more content not included)...NormalTimpanogos Regional HospitalHbA1c (Bld)on [id number] glucose Estimated from glycated hemoglobin (Bld) [Mass/Vol]186 mg/dLRaritan Bay Medical Center HospitalComment on above:Order Comment: Specimen Type: BLOOD SPECIMEN Ordering Facility: [facility] Address: [address] [place], [place] [address]Result Comment: eAG: (Estimated average glucose) is a calculated value from HgbA1c and is food service representative of the average blood glucose level in the last 2-3 month period.Performed By: #### 05242-4 #### [facility] CLIA [id number] [address] [place] [address] [place] OAOCCDIOaZ3j (Bld) [Mass fraction] 8.1 %High4.3-5.6ARiverton HospitalComment on above:Order Comment: Specimen Type: BLOOD SPECIMEN Ordering Facility: [facility] Address: [address] [place], [place] [address]Result Comment: [place] [employer] guidelines indicate that patients with HgbA1c in the range 5.7-6.4% are at increased risk for development of diabetes, and intervention by lifestyle modification may be beneficial. HgbA1c greater or equal to 6.5% is considered diagnostic of diabetes.Performed By: #### 26096-8 #### [facility] CLIA [id number] [address] [place] [address] OF [facility]CY HOSPITALCNOVon [id number] Visit (PDAVON) GARY VIGIL ([id number]) 1985 F Date Time Provider Department 08/10/25 10:00 AM EULALIA FUENTES PDAVITO During your visit today, we recorded the following information about you: Eulalia Fuentes DPM 08/10/2025 10:45 AM Signed Patient Visit for Gary Vigil 1985 40 year old female SUBJECTIVE: Chief Complaint: Patient presents with: Left Foot - Established Patient, Follow Up Right Foot - Established Patient, Follow Up Pain Scales: Verbal (Numeric Rating or Visual Analog Scale) Pain Level: 10 Pain Location: Foot-Left Description: Aching, Burning, Cramping, Crushing, Numbness, Pressure, Raw, Sharp, Shooting, Sore, Spasm, Stabbing, Stabbing/Not Incision, Throbbing, Tightness Duration Units: Months Frequency: Continuous Intervention/Comfort measure: Massage, Pillow support, Positioning Comments: She is here for a follow up of bilateral foot. Additional HPI: Complains of chronic painful second toenails bilateral Complains of recurrent hyperkeratosis plantar LEFT forefoot Stands on feet at work all day now at [employer] PCP: No primary care provider on file. [...] 50 mg by mouth daily at bedtime. built.ioTOUCH ULTRA TEST test strip twice daily. TEST [...] No family history on file. SOCIAL HISTORY[1] Tobacco Use: Types: Cigarettes REVIEW OF SYSTEMS: The remainder of the ROS was reviewed with the patient and is negative except as noted. OBJECTIVE: General: Pleasant in no acute distress Lower extremity exam: Vascular exam: Normal vascular exam, palpable pluses with brisk capillary fill Neurological exam: Normal neurological exam, gross epicritic sensation intact Dermatological exam: Dystrophic toenails second toe bilateral hypertrophic Deep hyperkeratosis with tenderness to palpation plantar fourth metatarsal head LEFT FOOT Normal exam without rashes or lesions of skin. No evidence of evidence of petechiae, purpura, telangiectasia Musculoskeletal exam: Pes plano valgus deformity Gross overall Manual muscle strength evaluation relatively intact LABS: Most recent labs reviewed LABORATORY STUDIES: Recent Labs 03/20/24 1053 (more content not included)...NormalPromedica Toledo HospitalCNPNon [id number] (FLAVIO) GARY VIGIL ([id number]) 1985 F Date Time Provider Department 08/10/25 EULALIA FUENTES During your visit today, we recorded the following information about you: Sugar Gibbs 08/10/2025 11:13 AM Signed ----- Message from Eulalia Fuentes DPM sent at 08/10/2025 10:44 AM EDT ----- Surgical Plan: RIGHT and LEFT FOOT Phenol partial matrixectomy of toenail second toe [address]32[address] MAC (Monitored Anesthesia Care - IV sedation) 1 hour Special equipment needed Phenol E11.42 Type 2 diabetes mellitus with diabetic polyneuropathy, unspecified whether half-way insulin use (HCC) (primary encounter diagnosis) R26.2 Difficulty walking Z68.39 BMI 39.0-39.9,adult M21.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, left R52, L90.5 Painful scar L60.8 Acquired dysmorphic toenail M79.674, M79.675 Pain in toes of both feet Sugar Gibbs 08/11/2025 12:39 PM Signed Spoke to patient who elected to schedule surgery for bilateral phenol partial toenail matrixectomy of 2nd toes with Dr. Fuentes for 09/09/25. Allergies As of Date: 08/10/2025 Noted Allergy Reaction KETOROLAC 06/01/2020 4 - Hives PREDNISONE 06/28/2021 14 - Other: See Comments TRAMADOL 06/01/2020 14 - Other: See Comments Date Reviewed: 08/10/2025 Reviewed by: Margie Pa OCCA - Fully Assessed Reason for Visit: Surgical Followup [104] Prescriptions as of 08/11/2025 - semaglutide (OZEMPIC) 1 mg/dose (4 mg/3 mL) pen Inject 1 mg subcutaneously one time a week. - empagliflozin (JARDIANCE) 25 mg tablet Take 25 mg by mouth daily with breakfast. - mupirocin (BACTROBAN) 2 % ointment Apply 1 application to affected area two times a day. - spironolactone (ALDACTONE) 50 mg tablet Take [...] the nose. Problem List As Of Date 08/10/2025 Noted Resolved Acquired absence of other specified [...] [R73.01] 11/23/2020 Cigarette nicotine dependence without complicat*11/01/2021 [facility] (current) use of oral hypoglycemic dr*11/01/2021 Other specified postprocedural states [Z98.890] 04/03/2021 Other specified symptoms and signs involving th*01/06/2021 BMI 39.0-39.9,adult [Z68.39] 02/10/2021 Contact with and (suspected) exposure to covid-*10/28/2021 Fibromyalgia [M79.7] 02/10/2021 Type 2 diabetes karol (more content not included)...NormalAshtabula County Medical Center W Auto Differential panel (Bld)on 72-81-5031Wghmhpyuaux distribution width (RBC) [Ratio]13.2 %11.5 - 14.5 %[facility]orial Health SystemHematocrit (Bld) [Volume fraction]39.3 %36.0 - 46.0 %[facility] SystemHemoglobin (Bld) [Mass/Vol]13.9 g/dL12.0 - 16.0 g/dL [facility] SystemImmid [facility] granulocytes (Bld) [#/Vol]0.04 10*3/uL [facility] granulocytes/100 WBC (Bld)0.3 %0.0 - 0.9 %[facility] Health SystemComment on above:Immature Granulocyte Count (IG) includes promyelocytes, myelocytes and metamyelocytes but does not i nclude bands. Percent differential counts (%) should be interpreted in the context of the absolute cell counts (cells/UL).MCH (RBC) [Entitic mass]31.2 pg 26.0 - 34.0 pgUnTriHealth McCullough-Hyde Memorial HospitalMCHC (RBC) [Mass/Vol]35.4 g/dL 32.0 - 36.0 g/dLUnTriHealth McCullough-Hyde Memorial HospitalMCV (RBC) [Entitic vol]88 fL80 - 100 fLUniKettering Health Behavioral Medical CenterPlatelets (d) [#/Vol]343 10*3/uL [facility] Health SystemRB (d) [#/Vol]4.45 10*6/uLMemorial Health SystemWBC (Bld) [#/Vol]13.6 10*3/uLBarnesville HospitalThe previously reported component Neutrophils % is no longer being reported.The previously reportedcomponent Lymphocytes % is no longer being reported.The [...] component Absolute Basophils is no longer being reported.[facility] Health SystemErythrocyte distribution width (RBC) [Ratio]13.2 %Apynfg58.5-14.5 [facility] SystemComment on above:Order Comment: The previously reported component Neutrophils % is no longer being reported. The previously reported component Lymphocytes % is no longer being reported. The previously reported component Monocytes % is no longer being reported. The previously reported component Eosinophils % is no longer being reported. The previously reported component Basophils % is no longer being reported. The previously reported component Absolute Neutrophils is no longer being reported. The previously reported component Absolute Lymphocytes is no longer being reported. The previously reported component Absolute Monocytes is no longer being reported. The previously reported component Absolute Eosinophils is no longer being reported. The previously reported component Absolute Basophils is no longer being reported.Performed By: #### 37873-0 #### LIAT Gregory ([id number]) [facility] ([facility]) [id number] [place] [address] 18188Jjlvtjkqeq (Bld) [Volume fraction]39.3 %Fabenk34.0-46.0 [facility] Health SystemComment on above:Order Comment: The previously reported component Neutrophils % is no longer being reported. The previously reported component Lymphocytes % is no longer being reported. The previously reported component Monocytes % is no longer being reported. The previously reported component Eosinophils % is no longer being reported. The previously reported component Basophils % is no longer being reported. The previously reported component Absolute Neutrophils is no longer being reported. The previously reported component Absolute Lymphocytes is no longer being reported. The previously reported component Absolute Monocytes is no longer being reported. The previously reported component Absolute Eosinophils is no longer being reported. The previously reported component Absolute Basophils is no longer being reported.Performed By: #### 41443-2 #### LIAT Gregory ([id number]) [facility] ([facility]) [address] [place] [address] 06349Gxidwgdavw (Bld) [Mass/Vol]13.9 g/qPGmkzpt29.0-16.0[facility] Health SystemComment on above:Order Comment: The previously reported component Neutrophils % is no longer being reported. The previously reported component Lymphocytes % is no longer being reported. The previously reported component Monocytes % is no longer being reported. The previously reported component Eosinophils % is no longer being reported. The previously reported component Basophils % is no longer being reported. The previously reported component Absolute Neutrophils is no longer being reported. The previously reported component Absolute Lymphocytes is no longer being reported. The previously reported component Absolute Monocytes is no longer being reported. The previously reported component Absolute Eosinophils is no longer being reported. The previously reported component Absolute Basophils is no longer being reported.Performed By: #### 73893-3 #### LIAT Gregory ([id number]) [facility] ([facility]) [address] [place] [address] 67724Mcwktzve granulocytes (Bld) [#/Vol]0.04 x10*3/uLNormal 0.00-0.70[facility] Health SystemComment on above:Order Comment: The previously reported component Neutrophils % is no longer being reported. The previously reported component Lymphocytes % is no longer being reported. The previously reported component Monocytes % is no longer being reported. The previously reported component Eosinophils % is no longer being reported. The previously reported component Basophils % is no longer being reported. The previously reported component Absolute Neutrophils is no longer being reported. The previously reported component Absolute Lymphocytes is no longer being reported. The previously reported component Absolute Monocytes is no longer being reported. The previously reported component Absolute Eosinophils is no longer being reported. The previously reported component Absolute Basophils is no longer being reported.Performed By: #### 01387-9 #### LIAT Gregory ([id number]) [facility] ([facility]) [address] [place] [address] 84833Yddvbhnl granulocytes/100 WBC (Bld)0.3 %Normal0.0-0.9 [facility] Health SystemComment on above:Order Comment: The previously reported component Neutrophils % is no longer being reported. The previously reported component Lymphocytes % is no longer being reported. The previously reported component Monocytes % is no longer being reported. The previously reported component Eosinophils % is no longer being reported. The previously reported component Basophils % is no longer being reported. The previously reported component Absolute Neutrophils is no longer being reported. The previously reported component Absolute Lymphocytes is no longer being reported. The previously reported component Absolute Monocytes is no longer being reported. The previously reported component Absolute Eosinophils is no longer being reported. The previously reported component Absolute Basophils is no longer being reported.Result Comment: Immature Granulocyte Count (IG) includes promyelocytes, myelocytes and metamyelocytes but does not include bands. Percent differential counts (%) should be interpreted in the context of the absolute cell counts (cells/UL).Performed By: #### 43387-6 #### LIAT Gregory ([id number]) [facility] ([facility]) [address] [place] [address] 73241JSS (RBC) [Entitic mass]31.2 yeCcyhlr76.0-34.0Av[facility] Health SystemComment on above:Order Comment: The previously reported component Neutrophils % is no longer being reported. The previously reported component Lymphocytes % is no longer being reported. The previously reported component Monocytes % is no longer being reported. The previously reported component Eosinophils % is no longer being reported. The previously reported component Basophils % is no longer being reported. The previously reported component Absolute Neutrophils is no longer being reported. The previously reported component Absolute Lymphocytes is no longer being reported. The previously reported component Absolute Monocytes is no longer being reported. The previously reported component Absolute Eosinophils is no longer being reported. The previously reported component Absolute Basophils is no longer being reported.Performed By: #### 18364-5 #### LIAT Gregory ([id number]) [facility] ([facility]) [address] [place], [place] [address]SKUN (RBC) [Mass/Vol]35.4 g/nZAmnmel65.0-36.0UnOhioHealth Southeastern Medical CenterComment on above:Order Comment: The previously reported component Neutrophils % is no longer being reported. The previously reported component Lymphocytes % is no longer being reported. The previously reported component Monocytes % is no longer being reported. The previously reported component Eosinophils % is no longer being reported. The previously reported component Basophils % is no longer being reported. The previously reported component Absolute Neutrophils is no longer being reported. The previously reported component Absolute Lymphocytes is no longer being reported. The previously reported component Absolute Monocytes is no longer being reported. The previously reported component Absolute Eosinophils is no longer being reported. The previously reported component Absolute Basophils is no longer being reported.Performed By: #### 11974-5 #### LIAT Gregory ([id number]) [facility] ([facility]) [address] [place] [address] 05028GJO (RBC) [Entitic vol]88 cHKhpbgi78-179GjudqokrazOhioHealth Southeastern Medical CenterComment on above:Order Comment: The previously reported component Neutrophils % is no longer being reported. The previously reported component Lymphocytes % is no longer being reported. The previously reported component Monocytes % is no longer being reported. The previously reported component Eosinophils % is no longer being reported. The previously reported component Basophils % is no longer being reported. The previously reported component Absolute Neutrophils is no longer being reported. The previously reported component Absolute Lymphocytes is no longer being reported. The previously reported component Absolute Monocytes is no longer being reported. The previously reported component Absolute Eosinophils is no longer being reported. The previously reported component Absolute Basophils is no longer being reported.Performed By: #### 80022-0 #### LIAT Gregory ([id number]) [facility] ([facility]) [address] [place], [place] [address]Vojnfnnms RBC/100 WBC (Bld) [Ratio]0.0 /100 WBCsNormal0.0-0.0 [facility] Health SystemComment on above:Order Comment: The previously reported component Neutrophils % is no longer being reported. The previously reported component Lymphocytes % is no longer being reported. The previously reported component Monocytes % is no longer being reported. The previously reported component Eosinophils % is no longer being reported. The previously reported component Basophils % is no longer being reported. The previously reported component Absolute Neutrophils is no longer being reported. The previously reported component Absolute Lymphocytes is no longer being reported. The previously reported component Absolute Monocytes is no longer being reported. The previously reported component Absolute Eosinophils is no longer being reported. The previously reported component Absolute Basophils is no longer being reported.Performed By: #### 10024-6 #### LIAT HARITHATZER L ([id number]) [facility] ([facility]) [id number] [place] [address] 14135Dkksgyevj (Bld) [#/Vol]343 x10*3/oBWbcaeh592-053AimgdbpsaaOhioHealth Southeastern Medical CenterComment on above:Order Comment: The previously reported component Neutrophils % is no longer being reported. The previously reported component Lymphocytes % is no longer being reported. The previously reported component Monocytes % is no longer being reported. The previously reported component Eosinophils % is no longer being reported. The previously reported component Basophils % is no longer being reported. The previously reported component Absolute Neutrophils is no longer being reported. The previously reported component Absolute Lymphocytes is no longer being reported. The previously reported component Absolute Monocytes is no longer being reported. The previously reported component Absolute Eosinophils is no longer being reported. The previously reported component Absolute Basophils is no longer being reported.Performed By: #### 95411-4 #### LIAT HARITHATZER L ([id number]) [facility] ([facility]) [address] [place] [address] 97185AVM (Bld) [#/Vol]4.45 x10*6/uLNormal4.00-5.20[facility] Health SystemComment on above:Order Comment: The previously reported component Neutrophils % is no longer being reported. The previously reported component Lymphocytes % is no longer being reported. The previously reported component Monocytes % is no longer being reported. The previously reported component Eosinophils % is no longer being reported. The previously reported component Basophils % is no longer being reported. The previously reported component Absolute Neutrophils is no longer being reported. The previously reported component Absolute Lymphocytes is no longer being reported. The previously reported component Absolute Monocytes is no longer being reported. The previously reported component Absolute Eosinophils is no longer being reported. The previously reported component Absolute Basophils is no longer being reported.Performed By: #### 93622-6 #### LIAT Gregory ([id number]) [facility] ([facility]) [address] [place] [address] 38621CSK (Bld) [#/Vol]13.6 x10*3/uLHigh4.4-11.3UnOhioHealth Southeastern Medical CenterComment on above:Order Comment: The previously reported component Neutrophils % is no longer being reported. The previously reported component Lymphocytes % is no longer being reported. The previously reported component Monocytes % is no longer being reported. The previously reported component Eosinophils % is no longer being reported. The previously reported component Basophils % is no longer being reported. The previously reported component Absolute Neutrophils is no longer being reported. The previously reported component Absolute Lymphocytes is no longer being reported. The previously reported component Absolute Monocytes is no longer being reported. The previously reported component Absolute Eosinophils is no longer being reported. The previously reported component Absolute Basophils is no longer being reported.Performed By: #### 36018-8 #### LIAT Gregory ([id number]) [facility] ([facility]) [address] [place], [place] [address]Owsrzgewntfwj metabolic 2000 panelon 77-29-7753Dxfdfit BCP dye [Mass/Vol]4.1 g/dL3.4 - 5.0 g/dLUnTriHealth McCullough-Hyde Memorial HospitalALP [Catalytic activity/Vol]85 U/L33 - 110 U/[facility] CenterALT With P-5'-P [Catalytic activity/Vol]13 U/L7 - 45 U/[facility] CenterComment on above:Patients treated with Sulfasalazine may generate falsely decreased results for ALT.Anion gap [Moles/Vol]15 mmol/L10 - 20 mmol/L [facility] SystemAST With P-5'-P [Catalytic activity/Vol]11 U/L9 - 39 U/[facility] CenterBilirubin [Mass/Vol]0.2 mg/dL0.0 - 1.2 mg/dLUnTriHealth McCullough-Hyde Memorial HospitalCalcium [Mass/Vol]9.5 mg/dL8.6 - 10.6 mg/dLUniversity Hospitals of ClevelandChloride [Moles/Vol]101 mmol/L98 - 107 mmol/[facility] CenterCO2 [Moles/Vol]23 mmol/L21 - 32 mmol/L [facility] SystemCreatinine [Mass/Vol]0.48 mg/dLLow0.50 - 1.05 mg/dLUnTriHealth McCullough-Hyde Memorial HospitaleGFR- PINFUniKettering Health Behavioral Medical CenterComment on above:Calculations of estimated GFR are performed using the 2020 CKD-EPI Study Refit equation without therace variable for the IDMS- Traceable creatinine methods. https://jasn.asnjournals.org/content/early/ASN.7568300800 Glucose [Mass/Vol]313 mg/nORnye83 - 99 mg/dLUnTriHealth McCullough-Hyde Memorial Hospital Interpretation and review of laboratory resultsAbnoSalem City HospitalPotassium [Moles/Vol]3.9 mmol/L3.5 - 5.3 mmol/[facility] CenterProtein [Mass/Vol]7.5 g/dL6.4 - 8.2 g/dLUnTriHealth McCullough-Hyde Memorial HospitalSodium [Moles/Vol]135 mmol/QEvr544 - 145 mmol/[facility] Medical CenterUrea nitrogen [Mass/Vol]8 mg/dL6 - 23 mg/dLUnTriHealth McCullough-Hyde Memorial HospitalUnTriHealth McCullough-Hyde Memorial HospitalAlbumin BCP dye [Mass/Vol]4.1 g/dL Normal3.4-5.0UnOhioHealth Southeastern Medical CenterComment on above: Performed By: #### 07647-3 #### LIAT Gregory ([id number]) [facility] ([facility]) [address] [place] [address] 49848IPD [Catalytic activity/Vol]85 U/UGlikqt24-443LzdzkjkdivOhioHealth Southeastern Medical CenterComment on above:Performed By: #### 97097-5 #### LIAT Gregory ([id number]) [facility] ([facility]) [address] [place] [address] 85692YYO With P-5'-P [Catalytic activity/Vol]13 U/LNormal7-45 [facility] SystemComment on above:Result Comment: Patients treated with Sulfasalazine may generate falsely decreased results for ALT.Performed By: #### 87984-7 #### LIAT Greogry ([id number]) [facility] ([facility]) [address] [place] [address] 82037Uqtvz gap [Moles/Vol]15 mmol/VVuqwkp66-26FujqzbbowsOhioHealth Southeastern Medical CenterComment on above:Performed By: #### 47391-3 #### LIAT Gregory ([id number]) [facility] ([facility]) [address] [place] [address] 73033UGW With P-5'-P [Catalytic activity/Vol]11 U/LNormal9-39 [facility] SystemComment on above:Performed By: #### 07241-3 #### LIAT Gregory ([id number]) [facility] ([facility]) [address] [place] [address] 43201Otsnjnran [Mass/Vol]0.2 mg/dLNormal0.0-1.2Av[facility] Health SystemComment on above:Performed By: #### 95684-3 #### LIAT Gregory ([id number]) [facility] ([facility]) [address] [place] [address] 83056Lbthwem [Mass/Vol]9.5 mg/dLNormal8.6-10.6Av[facility] Health SystemComment on above:Performed By: #### 58039-9 #### LIAT Gregory ([id number]) [facility] ([facility]) [address] [place] [address] 46569Mygodfpu [Moles/Vol]101 mmol/YGemkmd12-063CjprilibwnOhioHealth Southeastern Medical CenterComment on above:Performed By: #### 52115-7 #### LIAT Gregory ([id number]) [facility] ([facility]) [address] [place] [address] 04547TC2 [Moles/Vol]23 mmol/HRdyioj17-41RiylnqkmlqOhioHealth Southeastern Medical CenterComment on above:Performed By: #### 26058-3 #### LIAT Gregory ([id number]) [facility] ([facility]) [address] [place], [place] [address]Reiddnjuga [Mass/Vol]0.48 mg/dLLow0.50-1.05[facility] Health SystemComment on above:Performed By: #### 41483-2 #### LIAT Gregory ([id number]) [facility] ([facility]) [address] [place] [address] 54738Mvwufdflqg filtration rate>90Normal>60UnOhioHealth Southeastern Medical CenterComment on above:Result Comment: Calculations of estimated GFR are performed using the 2020 CKD-EPI Study Refit equation without the race variable for the IDMS-Traceable creatinine methods. https://jasn.asnjournals.org/content/early/ASN.5569881709Cwqmytdsn By: #### 06871-9 #### LIAT Gregory ([id number]) [facility] ([facility]) [address] [place] [address] 85558Lmvfsxa [Mass/Vol]313 mg/oYLafn70-38UsntgatubhOhioHealth Southeastern Medical CenterComment on above:Performed By: #### 11461-3 #### LIAT Gregory ([id number]) [facility] ([facility]) [address] [place] [address] 69782Lapbvnusq [Moles/Vol]3.9 mmol/LNormal3.5-5.3Av[facility] Health SystemComment on above:Performed By: #### 64899-1 #### LIAT Gregory ([id number]) [facility] ([facility]) [address] [place] [address] 37493Ccpnkpy [Mass/Vol]7.5 g/dLNormal6.4-8.2UnOhioHealth Southeastern Medical CenterComment on above:Performed By: #### 62452-5 #### LIAT Gregory ([id number]) [facility] ([facility]) [address] [place] [address] 79550Vnnfps [Moles/Vol]135 mmol/UMzx258-570FeudmvbzvdOhioHealth Southeastern Medical CenterComment on above:Performed By: #### 21654-2 #### LIAT Gregory ([id number]) [facility] ([facility]) [address] [place], [place] [address]Pvyh nitrogen [Mass/Vol]8 mg/dLNormal6-23[facility] Health SystemComment on above:Performed By: #### 76281-1 #### LIAT Gregory ([id number]) [facility] ([facility]) [address] [place], [place] [address]C-Wdkwz, VTE Exclusionon 07-36-6905Iizeri D-dimer FEU (PPP) [Mass/Vol]272NINFMemorial Health SystemECG 12-LEADon 37-29-8870LNL 12-LEADVentricular Rate 112 Atrial Rate 112 P-R Interval 148 QRS Duration 72 Q-T Interval 320 QTC Calculation(Bazett) 436 P [place] 31 R [place] 14 T [place] -25 QRS Count 18 Q Onset 225 P Onset 151 P Offset 219 T Offset 385 QTC Fredericia 394 Diagnosis Sinus tachycardia Septal infarct , age undetermined T wave abnormality, consider inferior ischemia Abnormal ECG No previous ECGs available See ED provider note for full interpretation and clinical correlation Confirmed by Karli Chino ([id number]) on 07/29/2025 1:01:42 AMNormalAstra Health CenterFibrin D-dimeron 16-60-7976Zezxub D-dimer FEU (PPP) [Mass/Vol]272 ng/mL FEUNormal<=500Av[facility] Health SystemComment on above:Order Comment: The VTE Exclusion D-Dimer assay is reported in ng/mL Fibrinogen Equivalent Units (FEU). Per entry level buyer's instructions for use, a value of less [...] probability assessment model for DVT or PE exclusion.)Performed By: #### 34145-5 #### LIAT Gregory ([id number]) [facility] ([facility]) [address] [place], [place] [address]Znyjms D-dimer FEU (PPP) [Mass/Vol]on 07-28-2025 Interpretation and review of laboratory resultsNoSalem City HospitalThe VTE Exclusion D-Dimer assay is reported in ng/mL Fibrinogen Equivalent Units (FEU). Per entry level buyer's instructions for use, a value of less [...] probability assessment model for DVT or PE exclusion.)[facility]orial Health SystemUnTriHealth McCull[facility]-Hy[facility] Hospital Gas panel (BldV)Ordered By: Claudia Escobedo on [id number] excess Calc (BldV) [Moles/Vol]-1.2000 mmol/L-2.0 - 3.0 mmol/[facility] Medical CenterCO2 (BldV) [Partial pressure]35 mm[Hg][facility] SouthHCO3 (Bld) [Moles/Vol]22.7 mmol/L22.0 - 26.0 mmol/[facility] CenterInhaled oxygen yylyrrxkbmxnc21 %[facility] Interpretation and review of laboratory resultsAbnoSalem City HospitalOxygen (BldV) [Partial pressure]50 mm[Hg][facility] HospitalOxygen saturation in Venous blood80 %High45 - 75 %[facility]orial Health SystemOxyhemoglobin (BldV) [Mass fraction]74.7 %45.0 - 75.0 %[facility] Health SystempH (BldV)7.42 [pH]7.33 - 7.43 [facility] HospitalGas panel (BldV)on 69-87-1356Rxro excess Calc (BldV) [Moles/Vol]-1.2000 mmol/LNormal-2.0-3.0[facility] SystemComment on above:Performed By: #### 34403-5 #### LIAT Gregory ([id number]) [facility] ([facility]) [address] [place], [place] [address]ZE8 (BldV) [Partial pressure]35 mm NjNul44-14OcsxbiyuriOhioHealth Southeastern Medical CenterComment on above:Performed By: #### 28971-9 #### LIAT Gregory ([id number]) [facility] ([facility]) [address] [place] [address] 08927UYV9 (Bld) [Moles/Vol]22.7 mmol/AAdicia18.0-26.0Av[facility] Health SystemComment on above:Performed By: #### 93815-1 #### LIAT Gregory ([id number]) [facility] ([facility]) [address] [place] [address] 53346Niorbpv oxygen irnbpnlxzgihf99 %NormalUnOhioHealth Southeastern Medical CenterComment on above:Performed By: #### 29629-8 #### LIAT Gregory ([id number]) [facility] ([facility]) [address] [place] [address] 53952Zjwgxh (BldV) [Partial pressure]50 mm GrBvia48-57MhodpfpzhaOhioHealth Southeastern Medical CenterComment on above:Performed By: #### 38558-4 #### LIAT Gregory ([id number]) [facility] ([facility]) [address] [place] [address] 14021Sodjrh saturation in Venous blood80 %Ozvb04-51IclfxrvnrrOhioHealth Southeastern Medical CenterComment on above:Performed By: #### 60806-5 #### LIAT Gregory ([id number]) [facility] ([facility]) [address] [place] [address] 43726Ijjerwnrrveis (BldV) [Mass fraction]74.7 %Mcxksq67.0-75.0 [facility] SystemComment on above:Performed By: #### 56147-2 #### LIAT Gregory ([id number]) [facility] ([facility]) [address] [address] 41859tN (BldV)7.42 [pH]Normal7.33-7.43Av[facility] Health SystemComment on above:Performed By: #### 81952-5 #### LIAT Gregory ([id number]) [facility] ([facility]) [address] [place], [place] [address]Drblhxz Test strip manual (Bld) [Mass/Vol]on 07-28-2025 Glucose [Mass/Vol]348 mg/lWXwna66 - 99 mg/dLMemorial Health System Interpretation and review of laboratory resultsAbnoSalem City HospitalUnTriHealth McCullough-Hyde Memorial HospitalGlucose [Mass/Vol]348 mg/gQEqnz50-42 [facility] SystemComment on above:Performed By: #### 2341-6 #### LIAT Gregory ([id number]) [facility] [facility] ([facility]) [address] [place], [place] [address]Vfzpwzpgi virus A and B and SARS-CoV-2 (COVID-19) identified CODY+probe Nom (Resp)on [id number] RNA CODY+probe Ql (Resp)Not detectedNot DetectedUnTriHealth McCullough-Hyde Memorial HospitalFLUBV RNA CODY+probe Ql (Resp)Not detectedNot [facility] FloridaUnTriHealth McCullough-Hyde Memorial HospitalInterpretation and review of laboratory resultsNormVeterans Health AdministrationSARS-CoV-2 (COVID- 19) RNA CODY+probe Ql (Resp)Not detectedNot DetectedMemorial Health SystemThis assay is an FDA-cleared, in vitro diagnostic nucleic acid amplification test for the qualitative detection and differentiation of SARS CoV-2/ Influenza A/B from nasopharyngeal specimens collected from individuals with signs and symptoms of respiratory tract infections, and has been validated for use at [facility]. Negative results do not preclude COVID-19/ Influenza A/B infections and should not be used as the sole basis for diagnosis, treatment, or other managementdecisions. Testing for SARS CoV-2 is recommended only for patients who meet current clinical and/orepidemiological criteria defined by federal, state, or local public health directives.[facility] Mans[facility] HospitalFLUAV RNA CODY+probe Ql (Resp)Not detectedNormalNot [facility] CampusComment on above:Order Comment: This assay is an FDA-cleared, in vitro diagnostic nucleic acid amplification test for the qualitative detection and differentiation of SARS CoV-2/ Influenza A/B from nasopharyngeal specimens collected from individuals with signs and symptoms of respiratory tract infections, and has been validated for use at [facility]. Negative results do not preclude COVID-19/ Influenza A/B infections and should not be used as the sole basis for diagnosis, treatment, or other management decisions. Testing for SARS CoV-2 is recommended only for patients who meet current clinical and/or epidemiological criteria defined by federal, state, or [facility] public health directives.Performed By: #### 93279-6 #### LIAT Gregory ([id number]) [facility] ([facility]) [address] [place] [address] 25397CQGZI RNA CODY+probe Ql (Resp)Not detectedNormalNot Detected [facility] SystemComment on above:Order Comment: This assay is an FDA-cleared, in vitro diagnostic nucleic acid amplification test for the qualitative detection and differentiation of SARS CoV-2/ Influenza A/B from nasopharyngeal specimens collected from individuals with signs and symptoms of respiratory tract infections, and has been validated for use at [facility]. Negative results do not preclude COVID-19/ Influenza A/B infections and should not be used as the sole basis for diagnosis, treatment, or other management decisions. Testing for SARS CoV-2 is recommended only for patients who meet current clinical and/or epidemiological criteria defined by [facility], [facility], or [facility] directives.Performed By: #### 62633-3 #### LIAT Gregory ([id number]) [facility] ([facility]) [address] [place] [address] 37648JMGK-NbB-2 (COVID-19) RNA CODY+probe Ql (Resp)Not detected NormalNot DetectedAvita Health SystemComment on above: Order Comment: This assay is an FDA-cleared, in vitro diagnostic nucleic acid amplification test for the qualitative detection and differentiation of SARS CoV-2/ Influenza A/B from nasopharyngeal specimens collected from individuals with signs and symptoms of respiratory tract infections, and has been validated for use at [facility]. Negative results do not preclude COVID-19/ Influenza A/B infections and should not be used as the sole basis for diagnosis, treatment, or other management decisions. Testing for SARS CoV-2 is recommended only for patients who meet current clinical and/or epidemiological criteria defined by federal, state, or local public health directives.Performed By: #### 46954-7 #### LIAT Gregory ([id number]) [facility] ([facility]) [address] [place] [id number] - Hematology and Cell countson 35-18-0076Viqqznith RBC/100 WBC (Bld) [Ratio]0.0 %0.0 - 0.0 %[facility] Manual differential performed Ql (Bld)on 97-50-7053Ankg form neutrophils (Bld) [#/Vol]0.00 10*3/Holzer HospitalBand form neutrophils/100 WBC (Bld)0.0 %0.0 - 5.0 %[facility] Health SystemBasophils (Bld) [#/Vol]0.00 10*3/[facility] HospitalBasophils/100 WBC (Bld)0.0 % 0.0 - 2.0 %[facility]orial Health SystemBlasts Manual cnt (Bld) [#/Vol]0.00 [facility] Health SystemBlasts/100 WBC (Bld)0.0 %0.0 - 0.0 %[facility] Health SystemCells Counted Total (Bld) [#]116 {cells}[facility] Health SystemEosinophils (Bld) [#/Vol]0.12 10*3/[facility] HospitalEosinophils/100 WBC (Bld)0.9 %0.0 - 6.0 %[facility] Health SystemLymphocytes (Bld) [#/Vol]3.86 10*3/[facility] Lymphocytes/100 WBC (Bld)28.4 %13.0 - 44.0 %[facility] Metamyelocytes (Bld) [#/Vol]0.00 10*3/[facility] Metamyelocytes/100 WBC (Bld)0.0 %0.0 - 0.0 %[facility] Monocytes (Bld) [#/Vol]0.48 10*3/[facility] Monocytes/100 WBC (Bld)3.5 %2.0 - 10.0 %[facility] Myelocytes (Bld) [#/Vol]0.00 10*3/[facility] Myelocytes/100 WBC (Bld)0.0 %0.0 - 0.0 %[facility] Neutrophils (Bld) [#/Vol]6.45 10*3/[facility] HospitalPlasma cells (Bld) [#/Vol]0.00 10*3/[facility] HospitalPlasma cells/100 WBC Manual cnt (Bld)0.0 %0.00 - 0.00 %[facility] Promyelocytes (Bld) [#/Vol]0.00 10*3/[facility] Promyelocytes/100 WBC (Bld)0.0 %0.0 - 0.0 %[facility]orial Health SystemRB morphology finding Nom (Bld)See BelowMemorial Health SystemSegmented neutrophils (Bld) [#/Vol]6.45 10*3/[facility] HospitalSegmented neutrophils/100 WBC (Bld)47.4 %40.0 - 80.0 %[facility] Comment on above:WBC: Vacuolated Neutrophils Present Percent differential counts (%) should be interpreted in the context of the absolute cell counts (cells/uL). Target cells LM Ql (Bld)[facility] HospitalVarparkview health montpelier hospital lymphocytes (Bld) [#/Vol]2.69 10*3/[facility] CenterVarparkview health montpel[facility] hospital lymphocytes/100 WBC (Bld)19.8 %0.0 - 2.0 %[facility]orial Health SystemW other Manual cnt (Bld) [#/Vol]0.00x10*3/[facility] HospitalW other/100 WBC (Bld)0.0 %[facility] Health SystemBand form neutrophils (Bld) [#/Vol]0.00 x10*3/Normal0.00-0.70Av[facility] Health SystemComment on above:Performed By: #### 92479-1 #### LIAT Gregory ([id number]) [facility] ([facility]) [address] [place], [place] [address]Band form neutrophils/100 WBC (Bld)0.0 %Normal0.0-5.0 [facility] Health SystemComment on above:Performed By: #### 46118-6 #### LIAT Gregory ([id number]) [facility] ([facility]) [address] [place], [place] [address]Ggxqtfhvy (Bld) [#/Vol]0.00 x10*3/uLNormal0.00-0.10Av[facility] Health SystemComment on above:Performed By: #### 81535-2 #### LIAT Gregory ([id number]) [facility] ([facility]) [address] [place], [place] [address]Ihgefqoku/100 WBC (Bld)0.0 %Normal0.0-2.0UnOhioHealth Southeastern Medical CenterComment on above:Performed By: #### 01960-3 #### LIAT Gregory ([id number]) [facility] ([facility]) [address] [place], [place] [address]Aolfwe Manual cnt (Bld) [#/Vol]0.00 x10*3/uLNormal0.00-0.00 [facility] SystemComment on above:Performed By: #### 74668-7 #### LIAT Gregory ([id number]) [facility] ([facility]) [address] [place], [place] [address]Drguod/100 WBC (Bld)0.0 %Normal0.0-0.0[facility] Health SystemComment on above:Performed By: #### 25084-4 #### LIAT Gregory ([id number]) [facility] ([facility]) [address] [place], [place] [address]Lbfyp Counted Total (Bld) [#]116NormalUniMercy Health Perrysburg HospitalComment on above:Performed By: #### 42953-0 #### LIAT Gregory ([id number]) [facility] ([facility]) [address] [place], [place] [address]Gybrlunhltm (Bld) [#/Vol]0.12 x10*3/uLNormal0.00-0.70 [facility] Health SystemComment on above:Performed By: #### 90333-9 #### LIAT Gregory ([id number]) [facility] ([facility]) [address] [place], [place] [address]Xcaixyrsyov/100 WBC (Bld)0.9 %Normal0.0-6.0UnOhioHealth Southeastern Medical CenterComment on above:Performed By: #### 24005-2 #### LIAT Gregory ([id number]) [facility] ([facility]) [address] [place] [address] 4[address]Thbwrftksyi (Bld) [#/Vol]3.86 x10*3/uLNormal1.20-4.80 [facility] Health SystemComment on above:Performed By: #### 23650-4 #### LIAT Gregory ([id number]) [facility] ([facility]) [address] [place] [address]Uhrscsontto/100 WBC (Bld)28.4 %Xsyfzg78.0-44.0UnOhioHealth Southeastern Medical CenterComment on above:Performed By: #### 40641-5 #### LIAT Gregory ([id number]) [facility] ([facility]) [address] [place] [address] 427[address]Rkqrlktcgvpqkk (Bld) [#/Vol]0.00 x10*3/uLNormal0.00-0.00 [facility] SystemComment on above:Performed By: #### 08851-8 #### LIAT Gregory ([id number]) [facility] ([facility]) [address] [place], [place] [address]Bustemazzgkqnj/100 WBC (Bld)0.0 %Normal0.0-0.0UnOhioHealth Southeastern Medical CenterComment on above:Performed By: #### 92644-6 #### LIAT Gregory ([id number]) [facility] ([facility]) [address] [place] [address] 49[address]Cyhrltfiv (Bld) [#/Vol]0.48 x10*3/uLNormal0.10-1.00UnOhioHealth Southeastern Medical CenterComment on above:Performed By: #### 48483-4 #### LIAT Gregory ([id number]) [facility] ([facility]) [address] [place] [address] 23168Arwhhkocr/100 WBC (Bld)3.5 %Normal2.0-10.0UnOhioHealth Southeastern Medical CenterComment on above:Performed By: #### 37430-1 #### LIAT Gregory ([id number]) [facility] ([facility]) [address] [place] [address] 56332Pxhdrubdzy (Bld) [#/Vol]0.00 x10*3/uLNormal0.00-0.00 [facility] SystemComment on above:Performed By: #### 95706-4 #### LIAT Gregory ([id number]) [facility] ([facility]) [address] [place] [address] 06941Sgiektrthw/100 WBC (Bld)0.0 %Normal0.0-0.0UnOhioHealth Southeastern Medical CenterComment on above:Performed By: #### 67174-4 #### LIAT Gregory ([id number]) [facility] ([facility]) [address] [address] 10146Otmnnnwgmph (Bld) [#/Vol]6.45 x10*3/uLNormal1.20-7.70 [facility] SystemComment on above:Performed By: #### 71487-3 #### LIAT Gregory ([id number]) [facility] ([facility]) [address] [place] [address] 169[address]Xtmbzfzdc RBC/100 WBC (Bld) [Ratio]0.0 %Normal0.0-0.0 [facility] SystemComment on above:Performed By: #### 17134-9 #### LIAT Gregory ([id number]) [facility] ([facility]) [address] [place] [address] 83584Ncygrx cells (Bld) [#/Vol]0.00 x10*3/uLNormal0.00-0.00 [facility] SystemComment on above:Performed By: #### 93634-4 #### LIAT Gregory ([id number]) [facility] ([facility]) [address] [place] [address] 82532Nqnkfn cells/100 WBC Manual cnt (Bld)0.0 %Normal0.00-0.00 [facility] SystemComment on above:Performed By: #### 13140-5 #### LIAT Gregory ([id number]) [facility] ([facility]) [address] [place] [address] 20861Npecoqfqsqxzh (Bld) [#/Vol]0.00 x10*3/uLNormal0.00-0.00 [facility] SystemComment on above:Performed By: #### 18199-4 #### LIAT Gregory ([id number]) [facility] ([facility]) [address] [place] [address] 79563Uuerlujwfcjoc/100 WBC (Bld)0.0 %Normal0.0-0.0UnOhioHealth Southeastern Medical CenterComment on above:Performed By: #### 95752-8 #### LIAT Gregory ([id number]) [facility] ([facility]) [address] [place] [address] 50339IXT morphology finding Nom (Bld)See BelowNormalUniversPremier Health Atrium Medical CenterComment on above:Performed By: #### 57423-2 #### LIAT Gregory ([id number]) [facility] ([facility]) [address] [place] [address] 37808Maifqfdhy neutrophils (Bld) [#/Vol]6.45 x10*3/uLNormal 1.20-7.00[facility] Health SystemComment on above:Performed By: #### 80039-5 #### LIAT Gregory ([id number]) [facility] ([facility]) [address] [place] [address] 08182Fmkhddqbu neutrophils/100 WBC (Bld)47.4 %Siptzb09.0-80.0 [facility] Health SystemComment on above:Result Comment: WBC: Vacuolated Neutrophils Present Percent differential counts (%) should be interpreted in the context of the absolute cell counts (cells/uL).Performed By: #### 67091-4 #### LIAT Gregory ([id number]) [facility] ([facility]) [address] [place] [address] 06528Unuayq cells LM Ql (Bld)Henry County HospitalComment on above:Performed By: #### 58531-7 #### LIAT Gregory ([id number]) [facility] ([facility]) [address] [place] [address] 91036Icfdxtg lymphocytes (Bld) [#/Vol]2.69 x10*3/uLHigh0.00-0.50 [facility] Health SystemComment on above:Performed By: #### 37467-5 #### LIAT Gregory ([id number]) [facility] ([facility]) [address] [place] [address] 67256Ssaiefq lymphocytes/100 WBC (Bld)19.8 %Normal0.0-2.0 [facility] Health SystemComment on above:Performed By: #### 90460-9 #### LIAT Gregory ([id number]) [facility] ([facility]) [address] [place] [address] 944[address]QCA other Manual cnt (Bld) [#/Vol]0.00 x10*3/uLNoal [facility] Health SystemComment on above:Performed By: #### 40985-7 #### LIAT Gregory ([id number]) [facility] ([facility]) [address] [place] [address] 39382JVC other/100 WBC (Bld)0.0 %NormalAvita Health SystemComment on above:Performed By: #### 61543-1 #### LIAT Gregory ([id number]) [facility] ([facility]) [address] [place] [address] 62232Mn Panel Informationon 78-20-0996Ncnsokcvxhdsrd and review of laboratory resultsAbBrown Memorial HospitalPathologist review Pathologist comment (Bld) [Interp]on 07-28-2025 PATH REVIEW-CBC DIFFERENTIALMild lymphocytosis with frequent lymphocytes with moderately abundant granular cytoplasm, indented/convoluted nuclei with condensed chromatin. If lymphocytosis is persistent and otherwise unexplained (such as viral infection), consider flow cytometry.[facility]an Private HospitalComment on above:Result Comment: . By the signature on this report, the individual or group listed as making the Final Interpretation/Diagnosis certifies that they have reviewed this case. Performed By: #### 23523-4 #### LIAT Gregory ([id number]) [facility] ([facility]) [address] [place] [address] 85681DZ CHEST 2 VIEWSon 91-79-3967CQ CHEST 2 VIEWSSTUDY: Chest Radiographs; 07/28/2025 5:22PM INDICATION: Shortness of breath and congestion. COMPARISON: None Available ACCESSION NUMBER(S): [id number] ORDERING CLINICIAN: ALEX CID TECHNIQUE: Frontal and lateral chest. FINDINGS: CARDIOMEDIASTINAL SILHOUETTE: Cardiomediastinal silhouette is normal in size and configuration. LUNGS: Lungs are clear. ABDOMEN: No remarkable upper abdominal findings. BONES: No acute osseous changes. IMPRESSION: No focal regions of airspace consolidation. Signed by Evaristo Bales MDKeenan Private HospitalXR Chest 2 Viewson 71-72-6273Cg focal regions of airspace consolidation. Signed by Evaristo Bales MD TELERADIOLOGYSTUDY: Chest Radiographs; 07/28/2025 5:22PM INDICATION: Shortness of breath and congestion. COMPARISON: None Available ACCESSION NUMBER(S): [id number] ORDERING CLINICIAN: ALEX CID TECHNIQUE: Frontal and lateral chest. FINDINGS: CARDIOMEDIASTINAL SILHOUETTE: Cardiomediastinal silhouette is normal in size and configuration. LUNGS: Lungs are clear. ABDOMEN: No remarkable upper abdominal findings. BONES: No acute osseous changes. TELERADIOLOGYEvaristo Bales MD - 07/28/2025 STUDY: Chest Radiographs; 07/28/2025 5:22PM INDICATION: Shortness of breath and congestion. COMPARISON: None Available ACCESSION NUMBER(S): [id number] ORDERING CLINICIAN: ALEX CID TECHNIQUE: Frontal and lateral chest. FINDINGS: CARDIOMEDIASTINAL SILHOUETTE: Cardiomediastinal silhouette is normal in size and configuration. LUNGS: Lungs are clear. ABDOMEN: No remarkable upper abdominal findings. BONES: No acute osseous changes. IMPRESSION: No focal regions of airspace consolidation. Signed by Evaristo Bales MD [facility] Work Phone: Radiology Study observation (narrative)[facility] Work Phone: xr Chest 2 ViewsOrdered By: Evaristo Bales on 07-28-2025 [facility] Work Phone: Basic Metabolic Panelon 01-64-2076Ebyewdxbjn Clr Calc Tomgbreo938.52NoAtrium Health Stanly Physician GroupComment on above:Result Comment: PERFORMED BY: [place] [address] PATHOLOGIST RESEARCH LEADER ARIE AZEVEDO M.D.Performed By: #### BMP #### [facility] [address] [place] [address] USAGFR/1.73 sq M.predicted MDRD (S/P/Bld) [Vol rate/Area] mL/min/{1.73_m2}NormalThe [facility] Physician [facility] County HospitalComment on above:Performed By: #### BMP #### [facility] [address] [place] [address] USABasophils [#/volume] in Blood by Automated countOrdered By: JOSÉ RODRIGUEZ on 45-60-9426Dtzlxnjvy (Bld) [#/Vol]0.1 10*3/uLNormal0.0-0.[address] [facility] HospitalComment on above:Result Comment: PERFORMED BY: [facility] [address] [place] [address] PATHOLOGIST RESEARCH LEADER ARIE AZEVEDO M.D.Performed By: #### CBC #### [facility] [address] [id number] USABasophils/100 leukocytes in Blood by Automated count Ordered By: JOSÉ RODRIGUEZ on 62-34-4744Aztydrwkj/100 WBC (Bld)1.0 %Normal. [facility] HospitalComment on above:Performed By: #### CBC #### [facility] [address] [place] [address] USACalcium [Mass/volume] in Serum or PlasmaOrdered By: JOSÉ RODRIGUEZ on 94-73-7821Opshukn [Mass/Vol]8.6 mg/dLNormal8.6-10.3FKindred Hospital LimaComment on above:Performed By: #### BMP #### [facility] [address] [place] [address] USACapillary blood glucose measurement by glucometer (mass/volume)Ordered By: Derek Viera on 29-93-2692Tjdlhdk [Mass/Vol]178 mg/dL [facility] HospitalComment on above:Random Glucose Reference Range is dependent on time and content of last meal. Glucose of more than 200 mg/dL in a nonstressed, ambulatory subject supports the diagnosis of Diabetes Mellitus.Result Comment: Random Glucose Reference Range is dependent on time and content of last meal. Glucose of more than 200 mg/dL in a nonstressed, ambulatory subject supports the diagnosis of Diabetes Mellitus.Performed By: #### GLULS #### Point of Care testing ,Carbon dioxide, total [Moles/volume] in Serum or PlasmaOrdered By: JOSÉ RODRIGUEZ on 83-51-1143ZE2 [Moles/Vol]23.0 mmol/PQtqjex32.0-31.0[facility] Youngstown HospitalComment on above:Performed By: #### BMP #### [place] [id number] USAChloride [Moles/volume] in Serum or PlasmaOrdered By: JOSÉ RODRIGUEZ on 75-65-5979Ipvihkym [Moles/Vol]106 mmol/ASkuufx47-495YfplshqsaMercy Health St. Elizabeth Youngstown HospitalComment on above:Performed By: #### BMP #### [facility] [address] [place] [address] USAComplete Blood Count Auto Diffon 20-57-8658Yuyn Corpuscular HGB Conc34.4 g/fEDttezs41.0-35.0The [facility] Physician GroupComment on above:Performed By: #### CBC #### [facility] [address] [place] [address] USANRBC%0.0 /100{WBC}Normal0-0.5The [facility] Physician Group Comment on above:Performed By: #### CBC #### [facility] [address] [place] [address] USAWhite Blood Count11.9 [CFU]/mLHigh3.8-11.6The [facility] Physician [facility] County HospitalComment on above:Performed By: #### CBC #### [place] [address] USACreatinine [Mass/volume] in Serum or PlasmaOrdered By: JOSÉ RODRIGUEZ on 25-85-8677Bnutcxjlfb [Mass/Vol]0.48 mg/dLLow0.60-1.20[facility] HospitalComment on above:Performed By: #### BMP #### [place] [address] USAECG 12 lead ECGon 90-68-7005CKR 12 lead ECGMEDINA HOSPITAL [facility] [place] [address] [place] [address] Electrocardiograph Report Signed Patient: Gary Vigil MR#: [id number] : 1985 Acct:[id number] Age/Sex: 40 / F ADM Date: 06/28/25 Loc: [place] Room: Type: [facility] Attending Dr: Derek Viera MD Ordering Provider: JOSÉ RODRIGUEZ DO Date of Service: 06/28/2503/19/556 ECG/ECG 12 lead ECG: pre-op Copies to: Test Reason : Blood Pressure : */* mmHG Vent. Rate : 89 BPM Atrial Rate : 89 BPM P-R Int : 170 ms QRS Dur : 80 ms QT Int : 358 ms P-R-T Axes : 57 49 14 degrees QTcB Int : 435 ms Normal sinus rhythm Low voltage QRS Nonspecific T wave abnormality Abnormal ECG Confirmed by Lily Moreira ([id number]) on 06/28/2025 11:41:39 AM Referred By: Electronically Signed By: Lily Moreira Transcribed By: MUS Signed By Lily Moreira MD [address] [place] [address] Physician GroupEosinophils [#/volume] in Blood by Automated countOrdered By: JOSÉ RODRIGUEZ on 22-39-3932Ltbshbgqzdl (Bld) [#/Vol] 0.2 10*3/uLNormal0.0-0.45[facility] Young[facility] HospitalComment on above: Performed By: #### CBC #### [facility] [address] [place] [address] USAEosinophils/100 leukocytes in Blood by Automated count Ordered By: JOSÉ RODRIGUEZ on 41-66-4641Rzkafavpkjy/100 WBC (Bld)1.7 %Normal. [facility] HospitalComment on above:Performed By: #### CBC #### [facility] [address] [place] [address] USAErythrocyte distribution width [Ratio] by Automated count Ordered By: JOSÉ RODRIGUEZ on 41-72-0412Slcyefzykna distribution width (RBC) [Ratio]14.8 %Marqab82.9-15.3FKindred Hospital LimaComment on above: Performed By: #### CBC #### [facility] [address] [place] [address] USAErythrocytes [#/volume] in Blood by Automated countOrdered By: JOSÉ RODRIGUEZ on 11-32-7518FTN (Bld) [#/Vol]4.02 10*6/uLNormal3.60-5.[address] Elizabeth Young[facility] HospitalComment on above:Performed By: #### CBC #### [facility] [address] [place] [address] USAGLUCOSE POCT GLUCOMETERSon 89-95-3312XZXSRJX5Iug2: Cleaned MeterNOMS HealthcareGlucose [Mass/Vol]178 mg/dLNOMS HealthcareComment on above: Random Glucose Reference Range is dependent on time and content of last meal. Glucose of more than 200 mg/dL in a nonstressed, ambulatory subject supports the diagnosis of Diabetes Mellitus. NOMS HealthcareGlucose Poct Glucometerson 82-94-0065Xxtzeen6Gis5: Cleaned Meter NormalThe [facility] Hospital Physician GroupComment on above:Result Comment: PERFORMED BY: [place] [address] PATHOLOGIST RESEARCH LEADER ARIE AZEVEDO M.D.Performed By: #### GLULS #### Point of Care testing ,Glucose [Mass/volume] in Serum or PlasmaOrdered By: JOSÉ RODRIGUEZ on 06-28-2025 Glucose [Mass/Vol]167 mg/bGNhds73-560TfyjqokrmMercy Health St. Elizabeth Youngstown HospitalComment on above:ADA recommended reference rangeRandom Glucose Reference Range is dependent on time and content of last meal. Glucose of more than 200 mg/dL in a nonstressed, ambulatory subject supports the diagnosisof Diabetes Mellitus. Result Comment: Random Glucose Reference Range is dependent on time and content of last meal. Glucose of more than 200 mg/dL in a nonstressed, ambulatory subject supports the diagnosis of Diabetes Mellitus. ADA recommended reference rangePerformed By: #### BMP #### [facility] [address] [place] [address] USAHematocrit [Volume Fraction] of Blood by Automated count Ordered By: JOSÉ RODRIGUEZ on 82-52-2041Zwgqenstvi (Bld) [Volume fraction]37.0 % Enuvot79.0-46.4FKindred Hospital LimaComment on above:Performed By: #### CBC #### [facility] [address] [place], [place] [address] USAHemoglobin [Mass/volume] in BloodOrdered By: JOSÉ RODRIGUEZ on 53-12-8782Qekhmqupdk (Bld) [Mass/Vol]12.7 g/qWWycqon36.8-15.4FKindred Hospital LimaComment on above:Performed By: #### CBC #### [address] [address] USALon 06-28-2025L Specimen: [id number] Received: 06/28/25 Status: HILARY Shane Num: [id number] Spec Type: Surgical Subm Dr: Derek Viera MD Tissues: A Breast Biopsy/Mass Not Requiring Micro Eval of Margins (LEFT LATERAL BREAST) B Breast Biopsy/Mass Not Requiring Micro Eval of Margins (MEDIAL LEFT BREAST) C Breast Biopsy/Mass Not Requiring Micro Eval of Margins (RIGHT BREAST MASS) D Skin-Other than Cyst, tag, debridement or plastic repair (RIGHT BUTTOCK) E Skin-Other than Cyst, tag, debridement or plastic repair (LEFT BUTTOCK) Procedures: Meka KENNEDY/Girish L4/5 Age/ Patient Sex Location Account Attending Physician Gary Vigil 40/F [place] [id number] Derek Viera MD SPEC NUM: [id number] RECD: 06/28/25 STATUS: HILARY SHANE NUM: [id number] ZHENG: 06/28/25-[address]: Derek Viera MD ENTERED: 06/28/25 [facility] DR: SPEC TYPE: Surgical DEPT: S ENTERED BY: [id number] RECV BY: [id number] ORDERED: HE/10, Gross/Micro L4/5 ORDERED: HE/10, Gross/Micro L4/5 Pathological Diagnosis A. Left lateral breast, labeled as mass , excision: - Epidermal inclusion cyst with marked acute and chronic inflammation. - No breast tissue present. B. Left medial lateral breast, labeled as mass , excision: - Consistent with ruptured epidermal cyst with abscess formation. - No breast tissue present. C. Right breast, labeled as mass , excision: - Consistent with ruptured epidermal cyst with abscess formation. - No breast tissue present. D. Right buttock, labeled as mass , excision: - Epidermal inclusion cyst. E. Left buttock, labeled as mass , excision: - Ruptured epidermal cyst with marked mixed acute and chronic inflammation. Comment: Syndromes associated with multiple epidermal inclusion cysts include Gordillo syndrome, Gorlin syndrome and others. Specimen: [id number] Received: 06/28/25 Status: HILARY Shane Num: [id number] Spec Type: Surgical Subm Dr: Derek Viera MD Tissues: A Breast Biopsy/Mass Not Requiring Micro Eval of Margins (LEFT LATERAL BREAST) B Breast Biopsy/Mass Not Requiring Micro Eval of Margins (MEDIAL LEFT BREAST) C Breast Biopsy/Mass Not Requiring Micro Eval of Margins (RIGHT BREAST MASS) D Skin-Other than Cyst, tag, debridement or plastic repair (RIGHT BUTTOCK) E Skin-Other than Cyst, tag, debridement or plastic repair (LEFT BUTTOCK) Procedures: , Meka/Girish L4/5 Patient: Gary Vigil N [id number] (Continued) Specimen: [id number] Received: 06/28/25 (Continued) Pathological Diagnosis (Continued) Signed (signature on file) Vinay Middleton MD 06/29/25 1031 Specimen: [id number] Received: 06/28/25 Status: HILARY Shane Num: [id number] Spec Type: Surgical Subm Dr: Derek Viera MD Tissues: A Breast Biopsy/Mass Not Requiring Micro Eval of Margins (LEFT LATERAL BREAST) B Breast Biopsy/Mass Not Requiring Micro Eval of Margins (MEDIAL LEFT BREAST) C Breast Biopsy/Mass Not Requiring Micro Eval of Margins (RIGHT BREAST MASS) D Skin-Other than Cyst, tag, debridement or plastic repair (RIGHT BUTTOCK) E Skin-Other than Cyst, tag, debridement or plastic repair (LEFT BUTTOCK) Procedures: , Gross/Micro L4/5 Patient: Gary Vigil [place] [id number] (Continued) Specimen: [id number] Received: 06/28/25 (Continued) Pathological Diagnosis (Continued) Recommend clinical correlation and further studies as clinically indicated. Clinical Information Left and right breast masses, right back mass, two buttock masses Gross Description Part A is received in formalin labeled with the patients name, date of , and left lateral breast is a mcmullen-brown, wrinkled, non-oriented ellipse of skin, 0.8 x 1.5 cm, excised to a depth of 0.3 cm. Eccentrically located on the skin are 2 main-pink areas, 0.5 and 0.6 cm in greatest dimension that are situated 0.1 cm from the closest margin. One half of the specimen is inked green with the opposing half inked black. Serial sections reveal main-pink, glistening, and uniform (more content not included)...NormalThe Highsmith-[facility]ey Specialty Hospital Physician GroupLeukocytes [#/volume] corrected for nucleated erythrocytes in Blood by Automated counOrdered By: JOSÉ RODRIGUEZ on 06-28-2025 WBC corrected for nucl RBC Auto (Bld) [#/Vol]11.9 10*3/uLHigh3.8-11.6FKindred Hospital LimaLeukocytes [#/volume] in Blood by Automated countOrdered By: JOSÉ RODRIGUEZ on 06-20-6611LWR (Bld) [#/Vol]11.9 10*3/uLHigh3.8-11.[address] [facility] HospitalComment on above:Performed By: #### CBC #### [facility] [address] [place] [address] USALymphocytes [#/volume] in Blood by Automated countOrdered By: JOSÉ RODRIGUEZ on 12-29-7958Blgxszktili (Bld) [#/Vol]5.2 10*3/uLHigh1.00-4.[address] [facility] Young[facility] HospitalComment on above:Performed By: #### CBC #### [place] [address] USALymphocytes/100 leukocytes in Blood by Automated count Ordered By: JOSÉ RODRIGUEZ on 70-02-8974Nindffhwqae/100 WBC (Bld)44.1 %Normal. [facility] Youngstown HospitalComment on above:Performed By: #### CBC #### [address] [Entitic mass] by Automated countOrdered By: JOSÉ RODRIGUEZ on 73-02-3756GXM (RBC) [Entitic mass]31.6 thTvsfnp91.7-34.3FKindred Hospital LimaComment on above:Performed By: #### CBC #### [address] Auto (RBC) [Mass/Vol]Ordered By: JOSÉ RODRIGUEZ on 36-06-6148JELW (RBC) [Mass/Vol]34.4 g/dL32.0-35.0Mer[facility] St[facility] Youngstown HospitalMCV [Entitic volume] by Automated countOrdered By: JOSÉ RODRIGUEZ on 32-10-5517JPA (RBC) [Entitic vol]92.1 pWSdelgi28-241YgyofysleMercy Health St. Elizabeth Youngstown HospitalComment on above:Performed By: #### CBC #### [place] [address] USAMonocytes [#/volume] in Blood by Automated countOrdered By: JOSÉ RODRIGUEZ on 21-12-8129Uhjdibneq (Bld) [#/Vol]0.7 10*3/uLNormal0.0-0.[address] [facility] Youngstown HospitalComment on above:Performed By: #### CBC #### [facility] [address] [place] [address] USAMonocytes/100 leukocytes in Blood by Automated count Ordered By: JOSÉ RODRIGUEZ on 60-13-5969Iretgzpll/100 WBC (Bld)6.2 %Normal. [facility] Youngstown HospitalComment on above:Performed By: #### CBC #### [facility] [address] [place] [address] USANeutrophils [#/volume] in Blood by Automated countOrdered By: JOSÉ RODRIGUEZ on 56-93-8073Nghoyhwthtd (Bld) [#/Vol]5.6 10*3/uLNormal1.8-7.[address] [facility] HospitalComment on above:Performed By: #### CBC #### [facility] [address] [place] [address] USANeutrophils/100 leukocytes in Blood by Automated count Ordered By: JOSÉ RODRIGUEZ on 11-34-0050Zvyjahncmvx/100 WBC (Bld)47.0 %Normal. [facility] HospitalComment on above:Performed By: #### CBC #### [facility] [address] [place] [address] USANo Panel InformationOrdered By: JOSÉ RODRIGUEZ on 10-84-7439Wzvxpvsxu GFR (CKD-EPI)> 60.0 mL/MinMercy Health St. Elizabeth [facility] Hospital Pharm[facility] Creatinine Clearance (Jfvd905.52[facility] HospitalNo Panel InformationOrdered By: Derek Viera on 35-50-5262Kbatrci Glucose Comment Glu2: cleaned [facility] HospitalNucleated erythrocytes [Presence] in Blood by Automated countOrdered By: JOSÉ RODRIGUEZ on 06-28-2025 Nucleated RBC Auto Ql (Bld)0.0 /100{WBC}0-0.5FKindred Hospital Lima Platelet mean volume [Entitic volume] in Blood by Automated countOrdered By: JOSÉ RODRIGUEZ on 46-18-1747Kodhxlap mean volume (Bld) [Entitic vol]8.1 fLNormal 6.3-10.7FKindred Hospital LimaComment on above:Performed By: #### CBC #### [facility] [address] [place] [address] USAPlatelets [#/volume] in Blood by Automated countOrdered By: JOSÉ RODRIGUEZ on 93-21-9212Npaypalwv (Bld) [#/Vol]354 10*3/wKYimbpe065-[address] [facility] HospitalComment on above:Performed By: #### CBC #### [facility] [address] [place] [address] USAPotassium [Moles/volume] in Serum or PlasmaOrdered By: JOSÉ RODRIGUEZ on 74-64-1524Gkxrlajcy [Moles/Vol]3.1 mmol/LLow3.5-5.1FKindred Hospital LimaComment on above:Performed By: #### BMP #### [place] [address] USASerum or plasma anion gap determinationOrdered By: JOSÉ RODRIGUEZ on 42-12-7248Zmkbw gap [Moles/Vol]13.1 mmol/LNormal6.0-15.0[facility] St. [facility] Youngstown HospitalComment on above:Performed By: #### BMP #### [facility] [address] [place] [address] USASodium [Moles/volume] in Serum or PlasmaOrdered By: JOSÉ RODRIGUEZ on 74-39-4211Qnydzr [Moles/Vol]139 mmol/HPiwdue312-015BazhvkdmdMercy Health St. Elizabeth Youngstown HospitalComment on above:Performed By: #### BMP #### [place] [address] USAUS pelvic completeon 85-54-8407ZY pelvic completeMEDINA HOSPITAL [place] [address] [place] [address] Ultrasound Report Signed Patient: Gary Vigil MR#: [id number] : 1985 Acct:[id number] Age/Sex: 40 / F ADM Date: 06/28/25 Loc: Room: Type: [facility] Attending Dr: Kelsea Joseph APRN, BARROW WORKER HELPER-C Ordering Provider: Kelsea Joseph APRN, DRAPERY HEMMER AUTOMATIC Date of Service: 06/28/25 US/US pelvic complete: R10.2 ([id number]) US/US transvaginal: R10.2 Copies to: Kelsea Joseph APRN, CNP Pelvic ultrasound. Reason for exam: Pelvic pain with urination. Comparison: Ultrasound 04/24/2024 Technique: Transabdominal imaging of the uterus and ovaries was performed. Transvaginal imaging of the uterus and ovaries was also obtained. Additional spectral Doppler analysis of the ovaries was also obtained. Findings: Uterus has been removed. Right ovary has been removed. Left ovary measures 2.7 x 1.8 x 2.7 cm without evidence of mass or cyst. Normal arterial and venous Doppler waveforms. No free fluid. US/US transvaginal Impression: Unremarkable pelvic ultrasound. Impression dictated by: Raymon Ruelas Jr., D.O. 06/28/2025 2:03 PM Dictation Location: [place] [address] Tech: Taty Lerner Transcribed By: DESHAWN 06/28/25 1403 Dictated By: Raymon Ruelas Jr, DO 06/28/25 1356 Signed By: 06/28/25 1403[facility] Physician GroupUrea nitrogen [Mass/volume] in Serum or PlasmaOrdered By: JOSÉ RODRIGUEZ on 78-32-4649Bpnm nitrogen [Mass/Vol]8 mg/dLNoal06-18Mer[facility] St. Elizabeth Youngstown HospitalComment on above:Performed By: #### BMP #### [place] [address] USAMM diagnostic mammo BI w/CADon 87-38-4403AG diagnostic mammo BI w/[facility] [place] [address] [place] [address] Ultrasound Report Signed Patient: Gary Vigil MR#: [id number] : 1985 Acct:[id number] Age/Sex: 40 / F ADM Date: 06/16/25 Loc: [place] Room: Type: [facility] Attending Dr: Kelsea Joseph APRN, BARROW WORKER HELPER-C Ordering Provider: Kelsea Joseph APRN, CNP Date of Service: 06/16/25 MM/MM diagnostic mammo BI w/CAD: N64.4 ([id number]) US/US breast LT limited: ABNORMAL MAMM LEFT Copies to: Kelsea Joseph APRN, LILLY DIAGNOSTIC BILATERAL MAMMOGRAM - FULL FIELD DIGITAL WITH TOMOSYNTHESIS CLINICAL DATA: Pain Craniocaudal and mediolateral oblique views of the () breast were obtained using low-dose digital technique. Comparison is made to prior studies from 2022. This examination was reviewed with the aid [...] THERAPY. DERMATOLOGICAL CONSULTATION COULD ALSO BE CONSIDERED. RESULT CODE: 3 Probably Benign Finding Short Term Follow-Up DENSITY CODE: 2 (approximately 25-50% glandular) There are scattered areas of fibroglandular density. FOLLOW UP: 3M The false-negative rate of mammography is approximately 10-percent. Management of a palpable abnormality must be based on clinical grounds. Impression dictated by: Jan Maddox M.D. 06/16/2025 2:25 PM Dictation Location: [facility] Tech: Paola Martin Transcribed By: DESHAWN 06/16/25 142 Dictated By: Jan Maddox MD 06/16/25 1423 Signed By: 06/16/25 1425[facility] Physician GroupX-ray reportOrdered By: Jan Maddox on 25-99-1678Thzms reportMED[place] [address] XRay Report Signed Patient: Gary Vigil MR#: [id number] : 1985 Acct:[id number] Age/Sex: 40 / F ADM Date: 5 Loc: ER Room: Type: [facility] ER Attending Dr: Copies to: Hanane Rondon APRN~ Ordering Provider: Hanane Rondon APRN Date of Service: 06/02/25 XR/XR shoulder RT min 2V*: Neck Pain/Injury RIGHT SHOULDER - - 3 views CLINICAL HISTORY: Right shoulder pain with movement of arm COMPARISON: None FINDINGS: Mild glenohumeral degenerative change. No fracture or dislocation. Right lung apex clear. XR/XR shoulder RT min 2V* IMPRESSION: No acute bony process. Impression dictated by: Jan Maddox M.D. 06/02/2025 10:16 PM Dictation Location: [facility]29 Transcribed By: DESHAWN 06/02/252215 Dictated By: Jan Maddox MD 06/02/252215 Signed By: 06/02/2522[address] [facility] Work Phone: XR shoulder RT min 2V*on 34-95-9071GE shoulder RT min 2V*[facility] [place] [address] [place] [address] XRay Report Signed Patient: Gary Vigil MR#: [id number] : 1985 Acct:[id number] Age/Sex: 40 / F ADM Date: 06/02/25 Loc: ER Room: Type: [facility] ER Attending Dr: Copies to: Hanane Rondon APRN Ordering Provider: Hanane Rondon APRN Date of Service: 06/02/25 XR/XR shoulder RT min 2V*: Neck Pain/Injury RIGHT SHOULDER - - 3 views CLINICAL HISTORY: Right shoulder pain with movement of arm COMPARISON: None FINDINGS: Mild glenohumeral degenerative change. No fracture or dislocation. Right lung apex clear. XR/XR shoulder RT min 2V* IMPRESSION: No acute bony process. Impression dictated by: Jan Maddox M.D. 06/02/2025 10:16 PM Dictation Location: [facility]29 Transcribed By: DESHAWN 06/02/252215 Dictated By: Jan Maddox MD 06/02/252215 Signed By: 06/02/[address] [place] [address] Physician GroupIGP,APTIMA HPV,AGE GDLNon 36-23-8654YQG GDLN ACOG TESTINGNote.NOMS HealthcareComment on above:TESTS RESULT FLAG UNITS REF RANGE LAB Clinician Provided Cytology Information Source.............Cervix;Endocervix No. of containers..01 ThinPrep Vial Age Algo ACOG Ginna... FLAG LEGEND: L-Low Normal,H-High Normal,LL-Alert Low,HH-Alert High <-Panic Low,>-Panic High,A-Abnormal,AA-Critical Abnormal Performed at: 01 =[address] [place] [address] Carmelita Kunz MD, HPV APTIMANegativeNegativeNOMS HealthcareComment on above:This nucleic acid amplification test detects fourteen high- risk HPV types (16,18,31,33,35,39,45,51,52,56,58,59,66,68) without differentiation. Performed at: =[address] [id number] Erosion Control Specialist: Carmelita Kunz MD, Phone: [phone] Performed at: [address] [id number] [employer]ros[employer] Specialist: Carmelita Kunz MD, Phone: [phone] IGP, APTIMA HPV, RFX 16/18,45Note.[facility] HealthcareComment on above:TESTS RESULT FLAG UNITS REF RANGE LAB DIAGNOSIS: 02 NEGATIVE FOR INTRAEPITHELIAL LESION OR MALIGNANCY. Specimen adequacy: 02 Satisfactory for evaluation. No endocervical component is identified. Performed by: 02 Trinidad Abreu Driver/Sales Workers (ASCP) . 02 Note: Note 02 The Pap smear is a screening test designed to aid in the detection of premalignant and malignant conditions of the uterine cervix. It is not a diagnostic procedure and should not be used as the sole means of detecting cervical cancer. Both false-positive and false-negative reports do occur. Test Methodology: Note 02 This liquid based ThinPrep(R) pap test was screened with the use of an image guided system. HPV Genotype Reflex Note 02 Criteria not met, HPV Genotype not performed. FLAG LEGEND: L-Low Normal,H-High Normal,LL-Alert Low,HH-Alert High <-Panic Low,>-Panic High,A-Abnormal,AA-Critical Abnormal Performed at: 02 [address] [facility] [address] [place] [address] Carmelita Kunz MD, BRUSH-SPATULA CERVIX ENDOCERVIX CLINWILMINGTON HOSPITALNOWV PkpszvzgpaR2W with Estimated Average Gluon 17-53-4395Wizuvoq [Mass/Vol]137 mg/dLNoAtrium Health Stanly Physician GroupComment on above:Order Comment: DR KELSEA Schmidt Comment: PERFORMED BY: [place] [id number] PATHOLOGIST RESEARCH LEADER ARIE AZEVEDO M.D.Performed By: #### A1C [facility] eA #### [place] [id number] USABlood estimated average glucose determination by estimation from glycated hemoglobinOrdered By: NON STAFF on 19-45-2245Rqntfth glucose Estimated from glycated hemoglobin (Bld) [Mass/Vol]137 mg/dLMercy Health St. Elizabeth Youngstown HospitalHemoglobin A1c/Hemoglobin.total in BloodOrdered By: NON STAFF on 54-88-8162EuZ0y (Bld) [Mass fraction]6.4 %High4.3-5.6FKindred Hospital LimaComment on above:Increased risk for diabetes: 5.7 - 6.4diabetes: >6.4glycemic control for adults with diabetes: <7.0Order Comment: DR KELSEA Schmidt Comment: Increased risk for diabetes: 5.7 - 6.4 diabetes: >6.4 glycemic control for adults with diabetes: <7.0Performed By: #### A1C WT eA #### [place] [id number] USARECURRENT VAGINITIS (HTRX)on 86-22-6060RXUOGUQQM VAGINAE0 NOMS HealthcareATOPOBIUM VAGINAENot detectedNOMS HealthcareBVAB 2,3 (BACTERIAL VAGINOSIS ASSOCIATED BACTERIA 2, 3); MOBILUNCUS NPQ9DGFT HealthcareBVAB 2,3 (BACTERIAL VAGINOSIS ASSOCIATED BACTERIA 2, 3); MOBILUNCUS SPPNot detectedNOMS HealthcareCANDIDA ALBICANS, PARAPSILOSIS, OMVPZQILWE1YCHI HealthcareCANDIDA ALBICANS, PARAPSILOSIS, TROPICALISNot detectedNOMS HealthcareCANDIDA GLABRATA 26.172AbnormalNOMS HealthcareCANDIDA GLABRATADetectedAbnormalNOMS Healthcare SERENITY VXQAQE5RTOH HealthcareCANDIDA KRUSEINot detectedNOMS HealthcareCHLAMYDIA XZXSTHLBIBV2RRCX HealthcareCHLAMYDIA TRACHOMATISNot detectedNOMS HealthcareERMB, C; MEFA14.817AbnormalNOMS HealthcareERMB, C; MEFADetectedAbnormalNOMS Healthcare GARDNERELLA XVLXJOMZI00.857AbnormalNOMS HealthcareGARDNERELLA VAGINALISDetected AbnormalNOMS HealthcareInterpretation and review of laboratory resultsAbnormal NOMS HealthcareMEGASPHAERA (TYPES 1, 2)0NOMS HealthcareMEGASPHAERA (TYPES 1, 2) Not detectedNOMS HealthcareMYCOPLASMA USXCLMLYFD1XCOZ HealthcareMYCOPLASMA GENITALIUMNot detectedNOMS HealthcareNEISSERIA XJNBRSYOBGI1YBBN Healthcare NEISSERIA GONORRHOEAENot detectedNOMS HealthcareTET B, TET M15.141AbnormalNOMS HealthcareTET B, TET MDetectedAbnormalNOMS HealthcareTRICHOMONAS SWBWUXYFM04.644 AbnormalNOMS HealthcareTRICHOMONAS VAGINALISDetectedAbnormalNOMS HealthcareNOMS HealthcareUrinalysis macro (dipstick) panel (U)on 47-11-2989Jzyoeprcp, UA NegativeNegative - 4(70) +++ mg/dLNOMS HealthcareBlood, UANegativeNegative - 50 Slade/mcLNOMS HealthcareClarity, UAClearNOMS HealthcareColor, UAYellowNOMS HealthcareGlucose, UANegativeNegative - 1999(110) ++++ mg/dLNOWV Healthcare Interpretation and review of laboratory resultsNormalNOMS HealthcareKetones, UA NegativeNegative - 160(16) ++++ mg/dLNOWV HealthcareLeukocytes, UANegative Negative - 500+++ Sadie/mcLNOWV HealthcareNitrite, UANegativeNegative - Positive NOMS HealthcarepH, UA75 - 9NOMS HealthcareProtein, UANegativeNegative - 2000(20) ++++ mg/dLNOMS HealthcareSpec Grav, UA1.0151 - 1.03NOMS HealthcareUrobilinogen, UA0.20.2 - 12 mg/dLNOMS HealthcareNOMS HealthcareAlanine aminotransferase [Enzymatic activity/volume] in Serum or PlasmaOrdered By: Miquel Andrews on 91-99-0579FZV [Catalytic activity/Vol]Alanine aminotransferase [Enzymatic activity/volume] in Serum or Plasma7-52[facility] HospitalAlbumin [Mass/volume] in Serum or Plasma by Bromocresol green (BCG) dye binding metho Ordered By: Miquel Andrews on 65-13-3988Vvmpmlw BCG dye [Mass/Vol]Albumin [Mass/volume] in Serum or Plasma by Bromocresol green (BCG) dye binding metho 3.5-5.7FKindred Hospital LimaAlkaline phosphatase [Enzymatic activity/volume] in Serum or PlasmaOrdered By: Miquel Andrews on 33-94-9162JIN [Catalytic activity/Vol]Alkaline phosphatase [Enzymatic activity/volume] in Serum or Hrmgjw69-973MtxtlgfflMercy Health St. Elizabeth Youngstown HospitalAppearance of UrineOrdered By: Miquel Andrews on 98-89-3334Djnyrcnlst (U)Urine appearanceCleFostoria City HospitalAspartate aminotransferase [Enzymatic activity/volume] in Serum or PlasmaOrdered By: Miquel Andrews on 82-56-4846YNL [Catalytic activity/Vol]Aspartate aminotransferase [Enzymatic activity/volume] in Serum or XwmydqDpo94-70EpxmzaehjMercy Health St. Elizabeth Youngstown HospitalBacteria [Presence] in Urine by AutomatedOrdered By: Miquel Andrews on 54-13-1265Cnxgdbkv Auto Ql (U)Bacteria [Presence] in Urine by AutomatedNone SeenMercy Health St. Elizabeth [facility] Hospital Basophils Auto (Bld) [#/Vol]Ordered By: Miquel Andrews on 91-46-6618Qaqolmcch (Bld) [#/Vol]Automated basophil count0.0-0.2FKindred Hospital Lima Basophils/100 WBC Auto (Bld)Ordered By: Miquel Andrews on 91-57-9940Uxuttlskz/100 WBC (Bld)Automated basophil %.[facility] HospitalBilirubin Test strip Ql (U)Ordered By: Miquel Andrews on 78-52-1932Phetkkkko Ql (U) Bilirubin.total [Presence] in Urine by Test stripNegativeMercy Health St. Elizabeth Youngstown HospitalBilirubin.total [Mass/volume] in Serum or PlasmaOrdered By: Miquel Andrews on 07-14-8959Evrkjtzlr [Mass/Vol]Bilirubin.total [Mass/volume] in Serum or Plasma0.3-1.0[facility] HospitalCT abdomen pelvis wo conon 10-11-4668RS abdomen pelvis wo [facility] [address] [address] [address] Scan Report Signed Patient: Gary Vigil MR#: [id number] : 1985 Acct:[id number] Age/Sex: 39 / F ADM Date: 02/10/25 [...] Jan Maddox M.D.02/10/2025 3:41 PM Dictation Location: [place] [address] Transcribed By: [facility] 02/10/25 1541 Dictated By: Jan Maddox MD 02/10/25 1538 Signed By: 02/10/25 1541[facility] Physician GroupCalcium [Mass/volume] in Serum or PlasmaOrdered By: Miquel Andrews on 32-32-3989Titukqh [Mass/Vol]Calcium [Mass/volume] in Serum or Plasma8.6-10.3FKindred Hospital LimaCarbon dioxide, total [Moles/volume] in Serum or PlasmaOrdered By: Miquel Andrews on 24-93-5653DV4 [Moles/Vol]Carbon dioxide, total [Moles/volume] in Serum or Plasma 21.0-31.0[facility] HospitalChloride [Moles/volume] in Serum or PlasmaOrdered By: Miquel Andrews on 41-68-2462Xygbhref [Moles/Vol]Chloride [Moles/volume] in Serum or Ajmeqb94-454VggslenwkMercy Health St. Elizabeth Youngstown HospitalColor Auto (U)Ordered By: Miquel Andrews on 70-80-2291Eqorf (U)Color of Urine by Auto YellowMercy Health St. Elizabeth Youngstown HospitalComplete Blood Count Auto Diffon 09-44-7937Vwivwyvig (Bld) [#/Vol]0.1 10*3/uLNormal0.0-0.2The [facility] Physician GroupComment on above:Result Comment: PERFORMED BY: [place] [address] PATHOLOGIST RESEARCH LEADER RICARDO ANDRE M.D.Performed By: #### CMP, CBC #### [place] [address] USABasophils/100 WBC (Bld)1.3 %Normal.[facility] Physician GroupComment on above:Performed By: #### CMP, CBC #### [facility] [address] [place] [address] USAEosinophils (Bld) [#/Vol]0.1 10*3/uLNormal0.0-0.45The [facility] Physician GroupComment on above:Performed By: #### CMP, CBC #### [place] [address] USAEosinophils/100 WBC (Bld)0.9 %Normal.The [facility] Physician GroupComment on above:Performed By: #### CMP, CBC #### [place] [address] USAErythrocyte distribution width (RBC) [Ratio]15.2 %Normal 11.9-15.3The [facility] Physician GroupComment on above:Performed By: #### CMP, CBC #### [place] [address] USAHematocrit (Bld) [Volume fraction]38.8 %Ujmrom05.0-46.4The [facility] Physician GroupComment on above:Performed By: #### CMP, CBC #### [place] [address] USAHemoglobin (Bld) [Mass/Vol]13.2 g/yRFsrmkj16.8-15.4The [facility] Physician GroupComment on above:Performed By: #### CMP, CBC #### [place] [address] USALymphocytes (Bld) [#/Vol]4.0 10*3/uLNormal1.00-4.8The [facility] Physician GroupComment on above:Performed By: #### CMP, CBC #### [place] [address] USALymphocytes/100 WBC (Bld)41.5 %Normal.The [facility] Physician GroupComment on above:Performed By: #### CMP, CBC #### [place] [address] USAMCH (RBC) [Entitic mass]30.5 efPhdrke61.7-34.3The [facility] Physician GroupComment on above:Performed By: #### CMP, CBC #### [place] [address] USAMCV (RBC) [Entitic vol]89.7 jIZuhllq70-808Mqm [facility] Physician GroupComment on above:Performed By: #### CMP, CBC #### [place] [address] USAMean Corpuscular HGB Conc34.0 g/tKNuqwiz80.0-35.0The [facility] Physician GroupComment on above:Performed By: #### CMP, CBC #### [place] [address] USAMonocytes (Bld) [#/Vol]0.5 10*3/uLNormal0.0-0.8The [facility] Physician GroupComment on above:Performed By: #### CMP, CBC #### [address] [place] [address] USAMonocytes/100 WBC (Bld)19.83 %Normal0.00-20.00The [facility] Physician GroupComment on above:Performed By: #### CMP, CBC #### [facility] [address] [place] [address] USAMonocytes/100 WBC (Bld)5.2 %Normal.The [facility] Physician GroupComment on above:Performed By: #### CMP, CBC #### [facility] [address] [place] [address] USANeutrophils (Bld) [#/Vol]4.9 10*3/uLNormal1.8-7.7The [facility] Physician GroupComment on above:Performed By: #### CMP, CBC #### [place] [address] USANeutrophils/100 WBC (Bld)51.1 %Normal.The [facility] Physician GroupComment on above:Performed By: #### CMP, CBC #### [place] [address] USANRBC%0.1 /100{WBC}Normal0-0.5The [facility] Comment on above:Performed By: #### CMP, CBC #### [place] [address] USAPlatelet mean volume (Bld) [Entitic vol]8.3 fLNormal 6.3-10.7The [facility] Physician GroupComment on above:Performed By: #### CMP, CBC #### [facility] [address] [place] [address] USAPlatelets (Bld) [#/Vol]324 10*3/iBBnoijs205-872Igq [facility] Physician GroupComment on above:Performed By: #### CMP, CBC #### [place] [address] USARBC (Bld) [#/Vol]4.32 10*6/uLNormal3.60-5.00The [facility] Physician GroupComment on above:Performed By: #### CMP, CBC #### [facility] [address] [place] [address] USAWBC (Bld) [#/Vol]9.7 10*3/uLNormal3.8-11.6The [facility] Physician GroupComment on above:Performed By: #### CMP, CBC #### [place] [address] USAComprehensive Metabolic Panelon 17-94-2028Jiwlxzv [Mass/Vol]3.9 g/dLNormal3.5-5.7The [facility] Physician GroupComment on above: Performed By: #### CMP, CBC #### [place] [address] USAAlbumin/Globulin [Mass ratio]1.1 {ratio}NormalThe [facility] Physician GroupComment on above:Performed By: #### CMP, CBC #### [place] [address] USAALP [Catalytic activity/Vol]71 U/FLddwfa43-666Lre [facility] Physician GroupComment on above:Performed By: #### CMP, CBC #### [place] [address] USAALT [Catalytic activity/Vol]9 U/LNormal7-52The [facility] Physician GroupComment on above:Performed By: #### CMP, CBC #### [place] [address] USAAnion gap [Moles/Vol]10.2 mmol/LNormal6.0-15.0The [facility] Physician GroupComment on above:Performed By: #### CMP, CBC #### [place] [address] USAAST [Catalytic activity/Vol]10 U/KIsj98-78Pmd [facility] Physician GroupComment on above:Performed By: #### CMP, CBC #### [place] [address] USABilirubin [Mass/Vol]0.4 mg/dLNormal0.3-1.0The [facility] Physician GroupComment on above:Performed By: #### CMP, CBC #### [place] [address] USACalcium [Mass/Vol]8.7 mg/dLNormal8.6-10.3The [facility] Physician GroupComment on above:Performed By: #### CMP, CBC #### [place] [address] USAChloride [Moles/Vol]107 mmol/ASvjsum48-847Rto [facility] Physician GroupComment on above:Performed By: #### CMP, CBC #### [place] [address] USACO2 [Moles/Vol]25.1 mmol/VFbkkkt61.0-31.0The [facility] Physician GroupComment on above:Performed By: #### CMP, CBC #### [place] [address] USACreatinine [Mass/Vol]0.60 mg/dLNormal0.60-1.20The [facility] Physician GroupComment on above:Performed By: #### CMP, CBC #### [place] [address] USACreatinine Clr Calc Fjlxwbow174.08NoAtrium Health Stanly Physician GroupComment on above:Result Comment: PERFORMED BY: [place] [address] PATHOLOGIST RESEARCH LEADER RICARDO ANDRE M.D.Performed By: #### CMP, CBC #### [place] [address] USAGFR/1.73 sq M.predicted MDRD (S/P/Bld) [Vol rate/Area] mL/min/{1.73_m2}NormalThe [facility] Physician GroupComment on above:Performed By: #### CMP, CBC #### [place] [address] USAGlobulin (S) [Mass/Vol]3.4 g/dLNoAtrium Health Stanly Physician GroupComment on above:Performed By: #### CMP, CBC #### [place] [address] USAGlucose [Mass/Vol]91 mg/bGMtqbir63-371Gll [facility] Physician GroupComment on above:Result Comment: Random Glucose Reference Range is dependent on time and content of last meal. Glucose of more than 200 mg/dL in a nonstressed, ambulatory subject supports the diagnosis of Diabetes Mellitus. ADA recommended reference rangePerformed By: #### CMP, CBC #### [facility] [address] [place] [address] USAPotassium [Moles/Vol]3.3 mmol/LLow3.5-5.1The [facility] Physician GroupComment on above:Performed By: #### CMP, CBC #### [facility] [address] [place] [address] USAProtein [Mass/Vol]7.3 g/dLNormal6.4-8.9The [facility] Physician GroupComment on above:Performed By: #### CMP, CBC #### [facility] [address] [place] [address] USASodium [Moles/Vol]139 mmol/AXzmmys684-263Ntl [facility] Physician GroupComment on above:Performed By: #### CMP, CBC #### [facility] [address] [place] [address] USAUrea nitrogen [Mass/Vol]6 mg/dLLow7-25The [facility] Physician GroupComment on above:Performed By: #### CMP, CBC #### [facility] [address] [place] [address] USACreatinine [Mass/volume] in Serum or PlasmaOrdered By: Miquel Andrews on 37-51-9179Edvxvdzwvy [Mass/Vol]Creatinine [Mass/volume] in Serum or Plasma0.60-1.20[facility] HospitalDipstick and Microscopicon 82-00-3295Gwzbmowhqi (U)ClearNormalClearThe [facility] Physician GroupComment on above:Order Comment: Name Collection Type:: VoidedPerformed By: #### ADDONUAPLUS #### [facility] [address] [place] [address] USABacteria,UrineRareNormalNone SeenThe [facility] Physician GroupComment on above:Order Comment: Name Collection Type:: VoidedPerformed By: #### ADDONUAPLUS #### [place] [address] USABilirubin,UrineNegativeNormalNegativeKindred Hospital Bay Area-St. Petersburg Physician GroupComment on above:Order Comment: Name Collection Type:: Voided Performed By: #### ADDONUAPLUS #### [place] [id number] USAColor (U)YellowNormalYellowKindred Hospital Bay Area-St. Petersburg Physician Group Comment on above:Order Comment: Name Collection Type:: VoidedPerformed By: #### ADDONUAPLUS #### [place] [address] USAGlucose Ql (U)>=[facility] Comment on above:Order Comment: Name Collection Type:: VoidedPerformed By: #### ADDONUAPLUS #### [place] [address] USAHyaline Casts,UrineNoneNormal0-8The [facility] Physician GroupComment on above:Order Comment: Name Collection Type:: VoidedPerformed By: #### ADDONUAPLUS #### [place] [address] USAKetones Ql (U)NegativeNormalNegativeKindred Hospital [facility] Area-St. Petersburg Physician GroupComment on above:Order Comment: Name Collection Type:: Voided Performed By: #### ADDONUAPLUS #### [place] [address] USALeukocyte esterase Test strip Ql (U)NegativeNormalNegative [facility] Physician GroupComment on above:Order Comment: Name Collection Type:: VoidedPerformed By: #### ADDONUAPLUS #### [place] [address] USAMucus,UrineRareNormalKindred Hospital [facility] Area-St. Petersburg Physician GroupComment on above:Order Comment: Name Collection Type:: VoidedResult Comment: PERFORMED BY: [place] [address] PATHOLOGIST RESEARCH LEADER RICARDO ANDRE M.D.Performed By: #### ADDONUAPLUS #### [place] [id number] USANitrite,UrineNegativeNormalNegativeThe [facility] Physician GroupComment on above:Order Comment: Name Collection Type:: VoidedPerformed By: #### ADDONUAPLUS #### [place] [address] USAOccult Blood,UrineTraceHighNegativeThe [facility] Physician GroupComment on above:Order Comment: Name Collection Type:: VoidedResult Comment: PERFORMED BY: [place] [address] PATHOLOGIST RESEARCH LEADER RICARDO ANDRE M.D.Performed By: #### ADDONUAPLUS #### [place] [address] USApH (U)6.0 [pH]Normal5.0-9.0The [facility] Comment on above:Order Comment: Name Collection Type:: VoidedPerformed By: #### ADDONUAPLUS #### [place] [address] USAProtein,UrineTraceHighNegativeThe [facility] Physician [facility] County HospitalComment on above:Order Comment: Name Collection Type:: VoidedPerformed By: #### ADDONUAPLUS #### [place] [address] USARBC,Fqwkf7-0Hqlw3-2Cml [facility] Physician GroupComment on above:Order Comment: Name Collection Type:: VoidedPerformed By: #### ADDONUAPLUS #### [place] [address] USASpecificy [place],Urine1.544Cnsi6.001-1.030The [facility] Physician GroupComment on above:Order Comment: Name Collection Type:: Voided Performed By: #### ADDONUAPLUS #### [place] [address] USASquamous Epithelial Cell,Ychma5-2Ytzt2-5Yxr [facility] Physician GroupComment on above:Order Comment: Name Collection Type:: Voided Performed By: #### ADDONUAPLUS #### [facility] [address] [place] [id number] USAUrobilinogen,UrineNormalNormalNormalThe [facility] Physician GroupComment on above:Order Comment: Name Collection Type:: Voided Performed By: #### ADDONUAPLUS #### [facility] [address] [place] [id number] USAWBC,Ovxdr4-7Tqgumy5-2Deq [facility] Physician GroupComment on above:Order Comment: Name Collection Type:: VoidedPerformed By: #### ADDONUAPLUS #### [facility] [address] [place] [address] USAEosinophils Auto (Bld) [#/Vol]Ordered By: Miquel Andrews on 95-99-2892Rkomerejthb (Bld) [#/Vol]Automated eosinophil count0.0-0.45[facility] HospitalEosinophils/100 WBC Auto (Bld)Ordered By: Miquel Andrews on 42-25-1070Bfdpwuxwznp/100 WBC (Bld)Automated eosinophil %.[facility] HospitalEpithelial cells.squamous [#/area] in Urine sediment by Automated countOrdered By: Miquel Andrews on 68-05-7627Qeqoaokbsh cells.squamous Auto (Urine sed) [#/Area]Epithelial cells.squamous [#/area] in Urine sediment by Automated countHigh0-2FKindred Hospital LimaErythrocyte distribution width Auto (RBC) [Ratio]Ordered By: Miquel Andrews on 84-92-4185Vwmjrbegbgj distribution width (RBC) [Ratio]Erythrocyte distribution width [Ratio] by Automated count 11.9-15.3FKindred Hospital LimaErythrocytes [#/area] in Urine sediment by Automated countOrdered By: Miquel Andrews on 87-72-5400XTY Auto (Urine sed) [#/Area]Erythrocytes [#/area] in Urine sediment by Automated countHigh0-[address] [facility] HospitalGlobulin Calc (S) [Mass/Vol]Ordered By: Miquel Andrews on 51-80-8875Ibsxisxd (S) [Mass/Vol]Serum globulin measurement by calculation (mass/volume)[facility] HospitalGlucose [Mass/volume] in Serum or PlasmaOrdered By: Miquel Andrews on 32-11-3253Zovubyz [Mass/Vol] Glucose [Mass/volume] in Serum or Yumteh49-781JrldrsarcMercy Health St. Elizabeth [facility] Hospital Comment on above:ADA recommended reference rangeRandom Glucose Reference Range is dependent on time and content of last meal. Glucose of more than 200 mg/dL in a nonstressed, ambulatory subject supports the diagnosisof Diabetes Mellitus. Glucose [Mass/volume] in Urine by Test stripOrdered By: Miquel Andrews on 70-24-7749Vozragd Test strip (U) [Mass/Vol]Glucose [Mass/volume] in Urine by Test stripHighNormalMercy Health St. Elizabeth Youngstown HospitalHematocrit Auto (Bld) [Volume fraction]Ordered By: Miquel Andrews on 93-30-0333Swkcoopava (Bld) [Volume fraction]Hematocrit [Volume Fraction] of Blood by Automated count34.0-46.[address] [facility] HospitalHemoglobin Test strip Ql (U)Ordered By: Miquel Andrews on 03-10-3155Nwanhleuxb Ql (U)Hemoglobin [Presence] in Urine by Test strip HighNegParkview Health Bryan HospitalHemoglobin [Mass/volume] in Blood Ordered By: Miquel Andrews on 36-53-0436Korxxsjked (Bld) [Mass/Vol]Hemoglobin [Mass/volume] in Blood11.8-15.4FKindred Hospital LimaHyaline casts [#/area] in Urine sediment by Automated countOrdered By: Miquel Andrews on 83-78-2841Skvkodf casts Auto (Urine sed) [#/Area]Hyaline casts [#/area] in Urine sediment by Automated count0-8[facility] HospitalKetones Test strip Ql (U)Ordered By: Miquel Andrews on 56-13-6605Pwpmijv Ql (U)Ketones [Presence] in Urine by Test stripNegParkview Health Bryan Hospital Leukocyte esterase [Presence] in Urine by Test stripOrdered By: Miquel Andrews on 92-16-6117Ifeajmuey esterase Test strip Ql (U)Leukocyte esterase [Presence] in Urine by Test stripNegParkview Health Bryan HospitalLeukocytes [#/area] in Urine sediment by Automated countOrdered By: Miquel Andrews on 81-60-3136NSY Auto (Urine sed) [#/Area]Leukocytes [#/area] in Urine sediment by Automated count0-4FKindred Hospital LimaLeukocytes [#/volume] corrected for nucleated erythrocytes in Blood by Automated counOrdered By: Miquel Andrews on 63-02-4829DXV corrected for nucl RBC Auto (Bld) [#/Vol]Leukocytes [#/volume] corrected for nucleated erythrocytes in Blood by Automated coun3.8-11.6FKindred Hospital LimaLymphocytes Auto (Bld) [#/Vol]Ordered By: Miquel Andrews on 65-44-9138Bixfmxhnmoh (Bld) [#/Vol]Lymphocytes [#/volume] in Blood by Automated count1.00-4.8[facility] HospitalLymphocytes/100 WBC Auto (Bld)Ordered By: Miquel Andrews on 57-85-4399Eblwtzxfrik/100 WBC (Bld) Lymphocytes/100 leukocytes in Blood by Automated count.[facility] HospitalMCH Auto (RBC) [Entitic mass]Ordered By: Miquel Andrews on 82-63-2893OOQ (RBC) [Entitic mass]MCH [Entitic mass] by Automated count24.7-34.[address] [facility] HospitalMCHC Auto (RBC) [Mass/Vol]Ordered By: Miquel Andrews on 49-43-1114VLRQ (RBC) [Mass/Vol]MCHC [Mass/volume] by Automated count 32.0-35.0[facility] HospitalMCV Auto (RBC) [Entitic vol]Ordered By: Miquel Andrews on 39-67-0901MDV (RBC) [Entitic vol]MCV [Entitic volume] by Automated mrbri69-978VfobiiayjMercy Health St. Elizabeth Youngstown HospitalMonocyte distribution width [Entitic volume] in Blood by AutomatedOrdered By: Miquel Andrews on 27-40-9102Sxilyvlf distribution width Auto (Bld) [Entitic vol]Monocyte distribution width [Entitic volume] in Blood by Automated0.00-20.00[facility] HospitalMonocytes Auto (Bld) [#/Vol]Ordered By: Miquel Andrews on 56-88-2626Obswsxtge (Bld) [#/Vol]Automated blood monocyte count0.0-0.8[facility] HospitalMonocytes/100 WBC Auto (Bld)Ordered By: Miquel Andrews on 87-89-1523Iopvrrhll/100 WBC (Bld)Automated monocyte %.[facility] HospitalMucus [Presence] in Urine by AutomatedOrdered By: Miquel Andrews on 05-67-3497Tgzab Auto Ql (U)Mucus [Presence] in Urine by AutomatedMercy Health St. Elizabeth Youngstown HospitalNeutrophils Auto (Bld) [#/Vol]Ordered By: Miquel Andrews on 74-78-7462Buainfumthp (Bld) [#/Vol]Neutrophils [#/volume] in Blood by Automated count1.8-7.7FKindred Hospital LimaNeutrophils/100 WBC Auto (Bld) Ordered By: Miquel Andrews on 26-99-1042Awfdvswcfog/100 WBC (Bld)Automated neutrophil %.[facility] HospitalNitrite Test strip Ql (U)Ordered By: Miquel Andrews on 29-72-3155Sbuzqtp Ql (U)Nitrite [Presence] in Urine by Test stripNegativeMercy Health St. Elizabeth Youngstown HospitalNo Panel InformationOrdered By: Miquel Andrews on 43-95-3693Okbflaikb GFR (CKD-EPI)> 60.0 mL/MinMercy Health St. Elizabeth Youngstown HospitalPharmacy Creatinine Clearance (Cxng098.08[facility] HospitalNucleated erythrocytes [Presence] in Blood by Automated count Ordered By: Miquel Andrews on 16-13-4817Bqftrcqre RBC Auto Ql (Bld)Nucleated erythrocytes [Presence] in Blood by Automated count0-0.5FKindred Hospital LimaPlatelet mean volume Auto (Bld) [Entitic vol]Ordered By: Miquel Andrews on 70-71-5938Accjzlje mean volume (Bld) [Entitic vol]Platelet mean volume [Entitic volume] in Blood by Automated count6.3-10.7FKindred Hospital LimaPlatelets Auto (Bld) [#/Vol]Ordered By: Miquel Andrews on 02-10-2025 Platelets (Bld) [#/Vol]Platelets [#/volume] in Blood by Automated -[address] [facility] HospitalPotassium [Moles/volume] in Serum or Plasma Ordered By: Miquel Andrews on 57-88-6307Dnqnnzgqf [Moles/Vol]Potassium [Moles/volume] in Serum or PlasmaLow3.5-5.1FKindred Hospital Lima Protein Test strip (U) [Mass/Vol]Ordered By: Miquel Andrews on 84-58-6332Lnfjcbb (U) [Mass/Vol]Protein [Mass/volume] in Urine by Test stripHighNegativeMercy Health St. Elizabeth Youngstown HospitalProtein [Mass/volume] in Serum or PlasmaOrdered By: Miquel Andrews on 78-65-3868Qyhrtyd [Mass/Vol]Protein [Mass/volume] in Serum or Plasma6.4-8.9[facility] HospitalRBC Auto (Bld) [#/Vol]Ordered By: Miquel Andrews on 30-40-7567OLN (Bld) [#/Vol]Erythrocytes [#/volume] in Blood by Automated count3.60-5.00[facility] Medical Centererum or plasma albumin/globulin mass ratioOrdered By: Miquel Andrews on 02-10-2025 Albumin/Globulin [Mass ratio]Serum or plasma albumin/globulin mass ratio [facility] Centererum or plasma anion gap determinationOrdered By: Miquel Andrews on 45-66-0424Ubgxk gap [Moles/Vol]Serum or plasma anion gap determination6.0-15.0[facility] Medical Centerodium [Moles/volume] in Serum or PlasmaOrdered By: Miquel Andrews 32-62-1414Daugcu [Moles/Vol]Sodium [Moles/volume] in Serum or Mnmmou354-410GdqrskwvdMercy Health St. [facility] Hospital Specific gravity Test strip (U) [Rel density]Ordered By: Miquel Andrews on 99-94-0644Hwvymina gravity (U) [Rel density]Specific gravity of Urine by Test stripHigh1.001-1.030[facility] HospitalUrea nitrogen [Mass/volume] in Serum or PlasmaOrdered By: Miquel Andrews 03-69-9888Ubmv nitrogen [Mass/Vol]Urea nitrogen [Mass/volume] in Serum or PlasmaLow7-25[facility] HospitalUrobilinogen Test strip (U) [Mass/Vol]Ordered By: Miquel Andrews on 02-89-4068Nccqcpudohlp (U) [Mass/Vol]Urobilinogen [Mass/volume] in Urine by Test stripNormalMercy Health St. Elizabeth Youngstown HospitalWBC Auto (Bld) [#/Vol] Ordered By: Miquel Andrews on 05-78-1230LDD (Bld) [#/Vol]Leukocytes [#/volume] in Blood by Automated count3.8-11.6FKindred Hospital LimapH Test strip (U)Ordered By: Miquel Andrews on 76-43-8496wL (U)pH of Urine by Test strip5.0-9.[address] [facility] HospitalCNOVon 14-61-9797NOIPDjzjmw Visit (LOORRM) GARY VIGIL ([id number]) 1985 F Date Time Provider Department 01/04/25 [...] 50 mg by mouth daily at bedtime. Quik.io ULTRA TEST test strip twice daily. TEST [...] Hyperkeratosis plantar lateral LE (more content not included)...NormalSumma Health [facility] 11-30-2970AWAQZedcwq Visit (ALEJANDRAORRM) GARY VIGIL ([id number]) 1985 F Date Time Provider Department 12/04/24 [...] in a CD X-[facility] PCP: No primary care provider on [...] 50 mg by mouth daily at bedtime. built.ioTOUCH ULTRA TEST test strip twice daily. TEST [...] tenderness to palpation Hy (more content not included)...[facility] HospitalXR foot RT min 3V*on 99-84-8311ZE foot RT min 3V*[place] [address] XRay Report Signed Patient: Gary Vigil MR#: [id number] : 1985 Acct:[id number] Age/Sex: 39 / F ADM Date: 11/22/24 Loc: ER Room: Type: [facility] ER Attending Dr: Copies to: Be [...] Michael Montalvo M.D.11/22/2024 1:56 PM Dictation Location: [facility]20 Transcribed By: [facility] 11/22/24 1356 Dictated By: Michael Montalvo DO 11/22/24 1353 Signed By: 11/22/[address] [place] [address] Physician GroupCNCO 28-64-9256TPJFRclwmh Text [facility]uffton HospitalCNOVon 85-92-3026BAUGGwgdea Visit (LOORRM) GARY VIGIL ([id number]) 1985 F Date Time Provider Department 10/05/24 1:00 PM EULALIA FUENTES During your visit today, we [...] purpura, telangiectasia Musculoskeletal e (more content not included)...NormalPromedica [facility] Hospital X-ray reportOrdered By: Evaristo Easley on 59-54-6602Dimef reportFIRLIMA CITY HOSPITAL Main [address] [address] XRay Report Signed Patient: Gary Vigil MR#: [id number] : 1985 Acct:[id number] Age/Sex: 39 / F ADM Date: 4 Loc: ER Room: Type: [facility] ER Attending Dr: Copies to: Mk Parker [...] Evaristo Easley M.D.10/04/2024 11:15 AM Dictation Location: [place] [address] Transcribed By: [facility] 10/04/241114 Dictated By: Evaristo Easley II, MD 10/04/241113 Signed By: 10/04/[address] [facility] Work Phone: xr chest 1V portableon 51-62-2334GS chest 1V portable [facility] [place] [address] XRay Report Signed Patient: Gary Vigil MR#: [id number] : 1985 Acct:[id number] Age/Sex: 39 / F ADM Date: 10/03/24 Loc: ER Room: Type: [facility] ER Attending Dr: Copies to: Mk Parker [...] Evaristo Easley M.D.10/04/2024 11:15 AM Dictation Location: [place] [address] Transcribed By: [facility] 10/04/24 1115 Dictated By: Evaristo Easley II, MD 10/04/24 1114 Signed By: 10/04/24 1115[facility] Physician GroupAlanine aminotransferase [Enzymatic activity/volume] in Serum or PlasmaOrdered By: Mk Parker on 58-66-9886IAF [Catalytic activity/Vol]Alanine aminotransferase [Enzymatic activity/volume] in Serum or Plasma7-52[facility] HospitalAlbumin [Mass/volume] in Serum or Plasma by Bromocresol green (BCG) dye binding metho Ordered By: Mk Parker on 15-70-2895Szxmwjz BCG dye [Mass/Vol]Albumin [Mass/volume] in Serum or Plasma by Bromocresol green (BCG) dye binding metho 3.5-5.7FKindred Hospital LimaAlkaline phosphatase [Enzymatic activity/volume] in Serum or PlasmaOrdered By: Mk Parker on 76-89-1306PLK [Catalytic activity/Vol]Alkaline phosphatase [Enzymatic activity/volume] in Serum or Biuxls30-258KlawmhbnwMercy Health St. Elizabeth Youngstown HospitalAspartate aminotransferase [Enzymatic activity/volume] in Serum or PlasmaOrdered By: Mk Parker on 44-08-6210AIE [Catalytic activity/Vol]Aspartate aminotransferase [Enzymatic activity/volume] in Serum or VawlhfEzh58-59KjrtrztfvMercy Health St. Elizabeth Youngstown HospitalB- Type Natriuretic Peptideon 24-16-5814Zgozldfcyyy peptide B (Bld) [Mass/Vol]10.0 pg/mLNormal5-100The [facility] Physician GroupComment on above:Result Comment: PERFORMED BY: [place] [address] PATHOLOGIST RESEARCH LEADER ANGELA NORTON M.D.Performed By: #### CMP, CBC #### [place] [address] USABasic Metabolic Panelon 26-51-9012Qkbks gap [Moles/Vol] 12.6 mmol/LNormal6.0-15.0The [facility] Physician GroupComment on above:Performed By: #### CMP, CBC #### [place] [address] USACalcium [Mass/Vol]9.3 mg/dLNormal8.6-10.3The [facility] Physician GroupComment on above:Performed By: #### CMP, CBC #### [place] [address] USAChloride [Moles/Vol]106 mmol/YYsyqwn32-266Kfs [facility] Physician GroupComment on above:Performed By: #### CMP, CBC #### [facility] [address] [place] [address] USACO2 [Moles/Vol]22.7 mmol/HUcrakv58.0-31.0The [facility] Physician GroupComment on above:Performed By: #### CMP, CBC #### [facility] [address] [place] [address] USACreatinine [Mass/Vol]0.50 mg/dLLow0.60-1.20The [facility] Physician GroupComment on above:Performed By: #### CMP, CBC #### [facility] [address] [place] [address] USACreatinine Clr Calc Vflfrmuu032.64NormalThe [facility] Physician GroupComment on above:Result Comment: PERFORMED BY: [place] [address] PATHOLOGIST RESEARCH LEADER ANGELA NORTON M.D.Performed By: #### CMP, CBC #### [place] [address] USAGFR/1.73 sq M.predicted MDRD (S/P/Bld) [Vol rate/Area] mL/min/{1.73_m2}NormalThe [facility] Physician GroupComment on above:Performed By: #### CMP, CBC #### [place] [address] USAGlucose [Mass/Vol]133 mg/xAIuhl42-515Puu [facility] Physician GroupComment on above:Result Comment: Random Glucose Reference Range is dependent on time and content of last meal. Glucose of more than 200 mg/dL in a nonstressed, ambulatory subject supports the diagnosis of Diabetes Mellitus. ADA recommended reference rangePerformed By: #### CMP, CBC #### [place] [address] USAPotassium [Moles/Vol]3.3 mmol/LLow3.5-5.1The [facility] Physician GroupComment on above:Performed By: #### CMP, CBC #### [place] [address] USASodium [Moles/Vol]138 mmol/XTsbfmz762-509Bnn [facility] Physician GroupComment on above:Performed By: #### CMP, CBC #### [place] [address] USAUrea nitrogen [Mass/Vol]12 mg/dLNormal7-25The [facility] Physician GroupComment on above:Performed By: #### CMP, CBC #### [place] [address] USABasophils Auto (Bld) [#/Vol]Ordered By: Mk Parker on 21-67-9342Wikltaotp (Bld) [#/Vol]Automated basophil count0.0-0.2FKindred Hospital LimaBasophils/100 WBC Auto (Bld)Ordered By: Mk Parker on 55-88-7583Hleekuiyi/100 WBC (Bld)Automated basophil %.[facility] HospitalBilirubin.direct [Mass/volume] in Serum or PlasmaOrdered By: Mk Parker on 55-18-8699Bqmtcqbls.direct [Mass/Vol]Bilirubin.direct [Mass/volume] in Serum or PlasmaLow0.03-0.18FKindred Hospital LimaComment on above:If the DBIL is less than 0.1, IBIL is not able to becalculated.Bilirubin.total [Mass/volume] in Serum or PlasmaOrdered By: Mk Parker on 56-43-4549Dqaindflp [Mass/Vol]Bilirubin.total [Mass/volume] in Serum or PlasmaLow0.3-1.0[facility] HospitalCalcium [Mass/volume] in Serum or PlasmaOrdered By: Mk Parker on 35-76-7327Ypyymfv [Mass/Vol]Calcium [Mass/volume] in Serum or Plasma 8.6-10.3FKindred Hospital LimaCarbon dioxide, total [Moles/volume] in Serum or PlasmaOrdered By: Mk Parker on 43-88-6409CL0 [Moles/Vol]Carbon dioxide, total [Moles/volume] in Serum or Texylg99.0-31.0[facility] HospitalChloride [Moles/volume] in Serum or PlasmaOrdered By: Mk Parker on 73-98-0464Nnonrwni [Moles/Vol]Chloride [Moles/volume] in Serum or Plasma 98-107[facility] HospitalComplete Blood Count Auto Diffon 37-04-9920Jhivwrpaj (Bld) [#/Vol]0.1 10*3/uLNormal0.0-0.2The [facility] Physician GroupComment on above:Result Comment: PERFORMED BY: [place] [address] PATHOLOGIST RESEARCH LEADER ANGELA NORTON M.D.Performed By: #### CMP, CBC #### [place] [address] USABasophils/100 WBC (Bld)1.3 %Normal.The [facility] Physician GroupComment on above:Performed By: #### CMP, CBC #### [place] [address] USAEosinophils (Bld) [#/Vol]0.2 10*3/uLNormal0.0-0.45The [facility] Physician GroupComment on above:Performed By: #### CMP, CBC #### [place] [address] USAEosinophils/100 WBC (Bld)1.8 %Normal.The [facility] Physician GroupComment on above:Performed By: #### CMP, CBC #### [place] [address] USAErythrocyte distribution width (RBC) [Ratio]13.6 %Normal 11.9-15.3The [facility] Physician GroupComment on above:Performed By: #### CMP, CBC #### [place] [address] USAHematocrit (Bld) [Volume fraction]37.1 %Tohqlz03.0-46.4The [facility] Physician GroupComment on above:Performed By: #### CMP, CBC #### [place] [address] USAHemoglobin (Bld) [Mass/Vol]12.7 g/eKUuxngo72.8-15.4The [facility] Physician GroupComment on above:Performed By: #### CMP, CBC #### [place] [address] USALymphocytes (Bld) [#/Vol]5.7 10*3/uLHigh1.00-4.8The [facility] Physician GroupComment on above:Performed By: #### CMP, CBC #### [place] [address] USALymphocytes/100 WBC (Bld)47.3 %Normal.The [facility] Physician GroupComment on above:Performed By: #### CMP, CBC #### [place] [id number] USAMCH (RBC) [Entitic mass]30.8 frXlpkwl43.7-34.3The [facility] Physician GroupComment on above:Performed By: #### CMP, CBC #### [place] [address] USAV (RBC) [Entitic vol]89.9 iREjisuo52-144Fys [facility] Physician GroupComment on above:Performed By: #### CMP, CBC #### [place] [address] USAMean Corpuscular HGB Conc34.2 g/uTNforjf07.0-35.0The [facility] Physician GroupComment on above:Performed By: #### CMP, CBC #### [place] [address] USAMonocytes (Bld) [#/Vol]0.5 10*3/uLNormal0.0-0.8The [facility] Physician GroupComment on above:Performed By: #### CMP, CBC #### [place] [address] USAMonocytes/100 WBC (Bld)18.55 %Normal0.00-20.00The [facility] Physician GroupComment on above:Performed By: #### CMP, CBC #### [place] [address] USAMonocytes/100 WBC (Bld)4.5 %Normal.The [facility] Physician GroupComment on above:Performed By: #### CMP, CBC #### [place] [address] USANeutrophils (Bld) [#/Vol]5.4 10*3/uLNormal1.8-7.7The [facility] Physician GroupComment on above:Performed By: #### CMP, CBC #### [place] [address] USANeutrophils/100 WBC (Bld)45.1 %Normal.The [facility] Physician GroupComment on above:Performed By: #### CMP, CBC #### [facility] [address] [place] [address] USANRBC%0.1 /100{WBC}Normal0-0.5The [facility] Physician Group Comment on above:Performed By: #### CMP, CBC #### [facility] [address] [place] [address] USAPlatelet mean volume (Bld) [Entitic vol]8.3 fLNormal 6.3-10.7The [facility] Physician GroupComment on above:Performed By: #### CMP, CBC #### [facility] [address] [place] [address] USAPlatelets (Bld) [#/Vol]348 10*3/gJBswkbk045-675Sns [facility] Physician GroupComment on above:Performed By: #### CMP, CBC #### [facility] [address] [place] [address] USARBC (Bld) [#/Vol]4.12 10*6/uLNormal3.60-5.00The [facility] Physician GroupComment on above:Performed By: #### CMP, CBC #### [facility] [address] [place] [address] USAWBC (Bld) [#/Vol]12.0 10*3/uLHigh3.8-11.6The [facility] Physician GroupComment on above:Performed By: #### CMP, CBC #### [facility] [address] [place] [address] USACreatine Kinaseon 33-42-3756OI [Catalytic activity/Vol]79 U/KJcwwzk98-775Aij [facility] Physician GroupComment on above:Performed By: #### CMP, CBC #### [facility] [address] [place] [address] USACreatine kinase [Enzymatic activity/volume] in Serum or PlasmaOrdered By: Mk Parker on 24-18-9260RS [Catalytic activity/Vol]Creatine kinase [Enzymatic activity/volume] in Serum or Pqusxf65-668IarcmqxooMercy Health St. Elizabeth [facility]stown HospitalCreatinine [Mass/volume] in Serum or PlasmaOrdered By: Mk Parker on 97-56-8847Xapuzekmkz [Mass/Vol]Creatinine [Mass/volume] in Serum or Plasma Low0.60-1.20[facility] HospitalECG 12 lead ECGon 00-69-2783DDI 12 lead ECGMEDINA HOSPITAL Main [address] [address] Electrocardiograph Report Signed Patient: Gary Vigil MR#: [id number] : 1985 Acct:[id number] Age/Sex: 39 / F ADM Date: 10/03/24 Loc: ER Room: Type: [facility] ER Attending Dr: Ordering Provider: Mk Parker [...] Signed By Joe Meek MD 1 12/05/[address] [place] [address] Physician GroupEosinophils Auto (Bld) [#/Vol] Ordered By: Mk Parker on 37-39-7160Aytqxciauap (Bld) [#/Vol]Automated eosinophil count0.0-0.45[facility] HospitalEosinophils/100 WBC Auto (Bld)Ordered By: Mk Parker on 59-16-6102Uidsivnlbhb/100 WBC (Bld) Automated eosinophil %.[facility] HospitalErythrocyte distribution width Auto (RBC) [Ratio]Ordered By: Mk Parker on 97-97-0535Lsynqnkydwv distribution width (RBC) [Ratio]Erythrocyte distribution width [Ratio] by Automated count11.9-15.3FKindred Hospital LimaGlobulin Calc (S) [Mass/Vol]Ordered By: Mk Parker on 82-34-8641Zmqlpekl (S) [Mass/Vol]Serum globulin measurement by calculation (mass/volume)[facility] HospitalGlucose [Mass/volume] in Serum or PlasmaOrdered By: Mk Parker on 89-54-0519Jypsmic [Mass/Vol]Glucose [Mass/volume] in Serum or SfiiomIjzl54-[address] [facility] HospitalComment on above:ADA recommended reference rangeRandom Glucose Reference Range is dependent on time and content of last meal. Glucose of more than 200 mg/dL in a nonstressed, ambulatory subject supports the diagnosisof Diabetes Mellitus.Hematocrit Auto (Bld) [Volume fraction]Ordered By: Mk Parker on 32-37-0974Reyfxmdwbp (Bld) [Volume fraction] Hematocrit [Volume Fraction] of Blood by Automated count34.0-46.4FKindred Hospital LimaHemoglobin [Mass/volume] in BloodOrdered By: Mk Parker on 23-46-1100Qrpnzepywg (Bld) [Mass/Vol]Hemoglobin [Mass/volume] in Blood 11.8-15.4FKindred Hospital LimaHepatic Panelon 06-15-2411Fircxcx [Mass/Vol]4.0 g/dLNormal3.5-5.7The [facility] Physician GroupComment on above: Performed By: #### CMP, CBC #### [facility] [address] [place] [address] USAAlbumin/Globulin [Mass ratio]1.3 {ratio}NormalThe [facility] Physician GroupComment on above:Performed By: #### CMP, CBC #### [facility] [address] [place] [address] USAALP [Catalytic activity/Vol]69 U/BFhrkqi52-360Yrb [facility] Physician GroupComment on above:Performed By: #### CMP, CBC #### [facility] [address] [place] [address] USAALT [Catalytic activity/Vol]10 U/LNormal7-52The [facility] Physician GroupComment on above:Performed By: #### CMP, CBC #### [facility] [address] [place] [id number] USAAST [Catalytic activity/Vol]11 U/RIxv44-97Wke [facility] Physician GroupComment on above:Performed By: #### CMP, CBC #### [place] [address] USABilirubin [Mass/Vol]0.2 mg/dLLow0.3-1.0The [facility] Physician GroupComment on above:Performed By: #### CMP, CBC #### [place] [address] USABilirubin,Indirect0.2 mg/dLNormalThe [facility] Physician [facility] HospitalComment on above:Performed By: #### CMP, CBC #### [place] [address] USABilirubin.indirect [Mass/Vol]0.00 mg/dLLow0.03-0.18The [facility] Physician [facility] HospitalComment on above:Result Comment: If the DBIL is less than 0.1, IBIL is not able to be calculated.Performed By: #### CMP, CBC #### [place] [address] USAGlobulin (S) [Mass/Vol]3.1 g/dLNormSamaritan North Health Centere [facility] Physician [facility] HospitalComment on above:Performed By: #### CMP, CBC #### [place] [address] USAProtein [Mass/Vol]7.1 g/dLNormal6.4-8.9The [facility] Physician GroupComment on above:Performed By: #### CMP, CBC #### [place] [address] USAINR in Platelet poor plasma by Coagulation assayOrdered By: Mk Parker on 96-34-5597XUF Coag (PPP) [Relative time]INR in Platelet poor plasma by Coagulation assayMercy Health St. Elizabeth Youngstown HospitalComment on above:INR Therapeutic Range A) Pre- and Peroperative OAT started two weeks before surgery. NOT HIP SURGERY: 1.5 - 2.5 HIP SURGERY: 2 - 3B) Primary and secondary prevention of venous THROMBOSIS: 2 - 3C) Active venous thrombosis, pulmonary embolismand prevention of recurrent venous thrombosis: 2 - 3D) Prevention of arterial thromboembolismincluding patients with mechanical heart valves: 3 - 4.5 Leukocytes [#/volume] corrected for nucleated erythrocytes in Blood by Automated counOrdered By: Mk Parker on 27-68-0600LCN corrected for nucl RBC Auto (Bld) [#/Vol]Leukocytes [#/volume] corrected for nucleated erythrocytes in Blood by Automated counHigh3.8-11.6FKindred Hospital LimaLymphocytes Auto (Bld) [#/Vol]Ordered By: Mk Parker on 94-33-4871Sbqkniyknws (Bld) [#/Vol] Lymphocytes [#/volume] in Blood by Automated countHigh1.00-4.8[facility] HospitalLymphocytes/100 WBC Auto (Bld)Ordered By: Mk Parker on 17-71-0921Uqwpthobhik/100 WBC (Bld)Lymphocytes/100 leukocytes in Blood by Automated count.[facility] HospitalMCH Auto (RBC) [Entitic mass] Ordered By: Mk Parker on 45-96-6137WJS (RBC) [Entitic mass]MCH [Entitic mass] by Automated count24.7-34.3FKindred Hospital LimaMCHC Auto (RBC) [Mass/Vol]Ordered By: Mk Parker on 39-21-1279ZEPA (RBC) [Mass/Vol]MCHC [Mass/volume] by Automated count32.0-35.0[facility] HospitalMCV Auto (RBC) [Entitic vol]Ordered By: Mk Parker on 73-10-1636YJA (RBC) [Entitic vol]MCV [Entitic volume] by Automated mtoff03-683XliskpduzMercy Health St. Elizabeth Youngstown HospitalMonocyte distribution width [Entitic volume] in Blood by AutomatedOrdered By: Mk Parker on 24-47-9628Ieeafpsr distribution width Auto (Bld) [Entitic vol]Monocyte distribution width [Entitic volume] in Blood by Automated0.00-20.[address] [facility] HospitalMonocytes Auto (Bld) [#/Vol]Ordered By: Mk Parker on 14-46-0504Njducoyrl (Bld) [#/Vol]Automated blood monocyte count0.0-0.[address] [facility] HospitalMonocytes/100 WBC Auto (Bld)Ordered By: Mk Parker on 52-20-0292Nyvzxnste/100 WBC (Bld)Automated monocyte %.[facility] HospitalNatriuretic peptide B [Mass/Vol]Ordered By: Mk Parker on 86-63-9501Mbgzmplldbo peptide B (Bld) [Mass/Vol]BNP ser/plas5-100[facility] HospitalNeutrophils Auto (Bld) [#/Vol]Ordered By: Mk Parker on 41-41-6443Iojthvsbdpz (Bld) [#/Vol]Neutrophils [#/volume] in Blood by Automated count1.8-7.7FKindred Hospital LimaNeutrophils/100 WBC Auto (Bld) Ordered By: Mk Parker on 66-98-4397Ebwupgpjumr/100 WBC (Bld)Automated neutrophil %.[facility] HospitalNo Panel InformationOrdered By: Mk Parker on 12-22-3261Gfycwjekm GFR (CKD-EPI)> 60.0 mL/MinMercy Health St. Elizabeth Youngstown HospitalPharmacy Creatinine Clearance (Hdzn708.64[facility] HospitalNucleated erythrocytes [Presence] in Blood by Automated count Ordered By: Mk Parker on 26-09-2303Qngvjuecc RBC Auto Ql (Bld)Nucleated erythrocytes [Presence] in Blood by Automated count0-0.5FKindred Hospital LimaPlatelet mean volume Auto (Bld) [Entitic vol]Ordered By: Mk Parker on 24-49-3437Riabxawi mean volume (Bld) [Entitic vol]Platelet mean volume [Entitic volume] in Blood by Automated count6.3-10.7FKindred Hospital LimaPlatelets Auto (Bld) [#/Vol]Ordered By: Mk Parker on 16-24-1949Znsauvkgd (Bld) [#/Vol]Platelets [#/volume] in Blood by Automated annta617-594PtssqgvfgMercy Health St. Elizabeth Youngstown HospitalPotassium [Moles/volume] in Serum or PlasmaOrdered By: Mk Parker on 09-95-3586Asehtrati [Moles/Vol]Potassium [Moles/volume] in Serum or PlasmaLow3.5-5.1FKindred Hospital LimaProtein [Mass/volume] in Serum or PlasmaOrdered By: Mk Parker on 51-01-0102Uqtlnqj [Mass/Vol]Protein [Mass/volume] in Serum or Plasma6.4-8.9[facility] Prothrombin Time INRon 73-58-1028SZW Coag (PPP) [Relative time]1.0 {INR}Normal The [facility] Physician GroupComment on above:Result Comment: INR Therapeutic Range A) Pre- and [...] heart valves: 3 - 4.5 PERFORMED BY: [place] [address] PATHOLOGIST RESEARCH LEADER ANGELA NORTON M.D.Performed By: #### CMP, CBC #### [facility] [address] [place], [place] [address] USAPT Coag (PPP) [Time]11.6 sNormal9.0-12.9The [facility] Physician [facility] HospitalComment on above:Result Comment: A hematocrit value greater than 55% may lead to inaccurate results in coagulation testing. Patients having hematocrit values >55% require a special collection tube for coagulation studies. Please contact the laboratory at [phone] for redraw instructions.Performed By: #### CMP, CBC #### [facility] [address] [place], [place] [address] USAProthrombin time (PT)Ordered By: Mk Parker on 10-03-2024 PT Coag (PPP) [Time]Prothrombin time (PT)9.0-12.9[facility] HospitalComment on above:A hematocrit value greater than 55% may lead to inaccurate results in coagulation testing. Patientshaving hematocrit values >55% require a special collection tube for coagulation studies. Please contact the laboratory at [phone] for redraw instructions.RBC Auto (Bld) [#/Vol]Ordered By: Mk Parker on 52-29-9515CHY (Bld) [#/Vol]Erythrocytes [#/volume] in Blood by Automated count3.60-5.00[facility] Medical Centererum or plasma albumin/globulin mass ratioOrdered By: Mk Parker on 17-18-9272Czhynco/Globulin [Mass ratio]Serum or plasma albumin/globulin mass ratioTrumbull Regional Medical Centererum or plasma anion gap determinationOrdered By: Mk Parker on 30-87-7821Jdrpi gap [Moles/Vol]Serum or plasma anion gap determination6.0-15.0 [facility] Centererum or plasma non-glucuronidated bilirubin measurement (mass/volume)Ordered By: Mk Parker on 93-90-9498Tglujpgly.indirect [Mass/Vol]Serum or plasma non-glucuronidated bilirubin measurement (mass/volume)[facility] Centerodium [Moles/volume] in Serum or PlasmaOrdered By: Mk Parker on 10-59-4121Bdjmrf [Moles/Vol]Sodium [Moles/volume] in Serum or Kqphjg526-057XocnjqmejMercy Health St. [facility] Troponin I High Sensitivityon 50-39-3786Ozdfxpyj I High Sensitivity4.4 pg/mL Normal0.0-15.0The [facility] Physician GroupComment on above:Result Comment: PERFORMED BY: [place] [address] PATHOLOGIST RESEARCH LEADER ANGELA NORTON M.D.Performed By: #### CMP, CBC #### [place] [address] USATroponin I.cardiac [Mass/volume] in Serum or Plasma by Detection limit <= 0.01 ng/Ordered By: Mk Parker on 61-00-3587Kviyeaqx I.cardiac DL <= 0.01 ng/mL [Mass/Vol]Troponin I.cardiac [Mass/volume] in Serum or Plasma by Detection limit <= 0.01 ng/0.0-15.0[facility] HospitalUrea nitrogen [Mass/volume] in Serum or PlasmaOrdered By: Mk Parker on 74-18-1303Ckwu nitrogen [Mass/Vol]Urea nitrogen [Mass/volume] in Serum or Plasma 7-25[facility] HospitalWBC Auto (Bld) [#/Vol]Ordered By: Mk Parker on 96-79-6125DCQ (Bld) [#/Vol]Leukocytes [#/volume] in Blood by Automated countHigh3.8-11.6FKindred Hospital LimaALL CBC WITH AUTO DIFFon 36-70-9756TTNXOYECH ABSOLUTE AUTO0.1NOMS HealthcareBasophils/100 WBC (Bld)0.5 % 0.2 - 2.0 %NOMEllett Memorial HospitalEosinophils/100 WBC (Bld)1.5 %0.9 - 7.0 %[facility] HospitalErythrocyte distribution width (RBC) [Ratio]13.4 %11.0 - 15.0 %[facility] HospitalHematocrit (Bld) [Volume fraction]39.0 %36.0 - 48.0 %[facility] Hemoglobin (Bld) [Mass/Vol]13.0 g/dL12.0 - 16.0 g/dLPerry County Memorial HospitalIMMATURE GRANULOCYTES ABS AUTO0.03NOBoone Hospital CenterImmature granulocytes/100 WBC (Bld)0.2 % 0.0 - 0.5 %[facility] HospitalInterpretation and review of laboratory results AbnormalNOBoone Hospital CenterLYMPHOCYTES ABSOLUTE AUTO4.3HighPerry County Memorial Hospital Lymphocytes/100 WBC (Bld)34.8 %20.5 - 60.0 %[facility] HospitalH (RBC) [Entitic mass]30.2 pg26.7 - 34.0 pgSaint John's HospitalHC (RBC) [Mass/Vol]33.3 g/dL29.9 - 35.2 g/dLSaint John's HospitalV (RBC) [Entitic vol]90.7 fL81.0 - 99.0 fLPerry County Memorial HospitalMONOCYTES ABSOLUTE AUTO0.7NOBoone Hospital CenterMonocytes/100 WBC (Bld)5.9 % 1.7 - 12.0 %[facility] HospitalNEUTROPHILS ABSOLUTE AUTO7.0HighPerry County Memorial Hospital Neutrophils/100 WBC (Bld)57.1 %43.0 - 75.0 %[facility] HospitalPlatelet mean volume (Bld) [Entitic vol]10.2 fL9.5 - 13.5 fLPerry County Memorial HospitalTB EO #0.2[facility] TBH [id number] [facility] RBC4.30[facility] WBC12.2HMile Bluff Medical CenterCLINISYNCNBEAVER COUNTY MEMORIAL [facility] HealthcareLon 11-25-8655NOrrnxkbo: [id number] Received: 07/16/24 Status: HILARY Shane Num: [id number] Spec Type: Surgical Subm Dr: Rigoberto Montano Tissues: A Ovary - Cyst, Non-Neoplastic (OVARY, DERMOID CYST) Procedures: HE/3, Gross/Micro L4 Age/ Patient Sex Location Account Attending Physician Gary Vigil N 39/F [place] [id number] Rigoberto Montano SPEC NUM: [id number] RECD: 07/16/24 STATUS: HILARY SHANE NUM: [id number] ZHENG: 07/16/[address]: Rigoberto Montano ENTERED: 07/16/24 [facility] DR: SPEC TYPE: Surgical DEPT: GRISEL GELLER ENTERED BY: [id number] RECV BY: [id number] ORDERED: HE/3, Gross/Micro L4 ORDERED: HE/3, Gross/Micro L4 Pathological Diagnosis Ovarian cyst, excision: Mature cystic teratoma (dermoid cyst). Clinical Information Pelvic pain, dermoid cyst path pending Gross Description The specimen was received in formalin with the patient's name and ovary, dermoid cyst is a disrupted pink ovary measuring 4.5 x 3.3 x 2.5 cm. The exterior surface is mcmullen- pink nodular the specimen is serially sectioned revealing multiple cystic structures ranging in size from 0.1 to 3.0 cm in greatest dimension. The largest cyst is filled with a white cystic debris, fatty tissue, calcified material and hair. Bag Sealer sections are submitted in cassettes A1-A3. CPT Codes 73117 Specimen: [id number] Received: 07/16/24 Status: HILARY Shane Num: [id number] Spec Type: Surgical Subm Dr: Rigoberto Montano Tissues: A Ovary - Cyst, Non-Neoplastic (OVARY, DERMOID CYST) Procedures: HE/3, Gross/Micro L4 Patient: AldenNandinisandhya Reynoso [id number] (Continued) Signed (signature on file) Ricardo Andre MD 07/21/[address] [place] [address] [facility] 12-LEADon [id number], [place] [address] Electrocardiograph Report Signed Patient: GARY VIGIL Angeles MR#: [id number] : 1985 Acct:[id number] Age/Sex: 39 / F ADM Date: 07/02/24 Loc: PST Attending Dr: Rigoberto Montano D.O. Ordering Physician: Rigoberto Montano D.O. 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 Signed By: 07/02/242116 DD/ 6 TD/TT: Validation Technician:TBHRadiology, Radiologist, MD - 07/02/2024 [place] [address] Electrocardiograph Report Signed Patient: GARY VIGIL MR#: [id number] : 1985 Acct:[id number] Age/Sex: 39 / F ADM Date: 07/02/24 Loc: [facility] Attending Dr: Rigoberto Montano D.O. Ordering Physician: Rigoberto Montano D.O. 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 Signed By: 07/02/242116 DD/ 0937 TD/TT: Validation Technician: DUDLEY Peoples HospitalRadiology Study observation (narrative)[facility] 12-LEAD Ordered By: Radiologist Radiology on 15-79-4959[facility] Work Phone: HbA1c (Bld)on 46-02-0631Kpnvxer glucose Estimated from glycated hemoglobin (Bld) [Mass/Vol]189 mg/dLWayne HealthCare Main Campus on above: eAG: (Estimated average glucose) is a calculated value from HgbA1c and is food service representative of the average blood glucose level in the last 2-3 month period. HbA1c (Bld) [Mass fraction]8.2 %High4.3 - 5.6 %[facility] on above: [place] [employer] guidelines indicate that patients with HgbA1c in the range 5.7-6.4% are at increased risk for development of diabetes, and intervention by lifestyle modification may be beneficial. HgbA1c greater or equal to 6.5% is considered diagnostic of diabetes.Interpretation and review of laboratory resultsAbnormalCleveland Doctors HospitalXR Foot - left AP and Lateral and obliqueon 96-39-4539GBKEMLPEKQ: No acute osseous abnormality. Minimal degenerative changes, as described. Mild pes planus. Validation Technician: ANTOLIN Transcribe Date/Time: Nov 01 2023 12:36P Dictated by : LIBRADO ROJAS MD This examination was interpreted and the report reviewed and electronically signed by: LIBRADO ROJAS MD on Nov 01 2023 11:52PM [facility] DIVISION OF RADIOLOGY* * *Final Report* * * DATE OF [...] forefoot. Small posterior calcaneal enthesophyte. DIVISION OF RADIOLOGYProvider, [facility] [place] - 11/01/2023 * * *Final Report* * * DATE OF EXAM: Nov 01 2023 11:08AM AILYN 5336 - XR FOOT 3V AP/LAT/OBL LT [...] degenerative changes, as described. Mild pes planus. Validation Technician: ANTOLIN Transcribe Date/Time: Nov 01 2023 12:36P Dictated by : LIBRADO ROJAS MD This examination was interpreted and the report reviewed and electronically signed by: LIBRADO ROJAS MD on Nov 01 2023 11:52PM EST [facility] HospitalRadiology Study observation (narrative)[facility] HospitalXR Foot - left AP and Lateral and obliqueOrdered By: [facility] Provider on 11-65-7155Zzawxckgb ClinicAlanine aminotransferase [Enzymatic activity/volume] in Serum or Plasma Ordered By: Hanane Rondon on 95-07-7813THQ [Catalytic activity/Vol]19 U/L7-[address] [facility] HospitalAlbumin [Mass/volume] in Serum or Plasma by Bromocresol green (BCG) dye binding methoOrdered By: Hanane Rondon on 50-73-5826Xhskljb BCG dye [Mass/Vol]3.8 g/dL3.5-5.7FKindred Hospital LimaAlkaline phosphatase [Enzymatic activity/volume] in Serum or PlasmaOrdered By: Hanane Rondon on 70-40-1388PDY [Catalytic activity/Vol]83 U/L34-[address] [facility] HospitalAspartate aminotransferase [Enzymatic activity/volume] in Serum or PlasmaOrdered By: Hanane oRndon on 20-44-6966CVD [Catalytic activity/Vol]17 U/N09-79ZxbbsawynMercy Health St. Elizabeth Youngstown HospitalAutomated erythrocytes count in urine sediment (number/area)Ordered By: Hanane Rondon on 22-78-3847HKJ Auto (Urine sed) [#/Area]5-9 [HPF]0-4FKindred Hospital LimaAutomated leukocytes count in urine sediment (number/area)Ordered By: Hanane Rondon on 49-41-0442AGT Auto (Urine sed) [#/Area]10-19 [HPF]0-[address] [facility] HospitalAutomated urine hyaline casts count (number/volume)Ordered By: Hanane Rondon on 45-02-0425Otdiika casts Auto (U) [#/Vol]1-2 [LPF]0-1FKindred Hospital LimaBasophils Auto (Bld) [#/Vol] Ordered By: Hanane Rondon on 05-30-5688Rzfeyonpg (Bld) [#/Vol]0.1 10*3/uL 0.0-0.2FKindred Hospital LimaBasophils/100 WBC Auto (Bld)Ordered By: Hanane Rondon on 69-19-1621Hpxaatabw/100 WBC (Bld)0.8 %.[facility] [address] [facility] HospitalBilirubin Test strip Ql (U)Ordered By: Hanane Rondon on 17-33-7117Ymmltadtl Ql (U)NegativeNegativeMercy Health St. [facility] Hospital Bilirubin.total [Mass/volume] in Serum or PlasmaOrdered By: Hanane Rondon on 53-35-7335Tbyyqbmps [Mass/Vol]0.2 mg/dL0.3-1.0[facility] Calcium [Mass/volume] in Serum or PlasmaOrdered By: Hanane Rondon on 82-88-6793Tkixisi [Mass/Vol]8.7 mg/dL8.6-10.3FKindred Hospital Lima Carbon dioxide, total [Moles/volume] in Serum or PlasmaOrdered By: Hanane Rondon on 13-96-4563IP6 [Moles/Vol]22.1 mmol/L21.0-31.0[facility] HospitalCasts typing in urine sediment by light microscopyOrdered By: Hanane Rondon on 29-43-8909Asjbv LM Nom (Urine sed)None seen [LPF]None Seen [facility] HospitalChloride [Moles/volume] in Serum or Plasma Ordered By: Hanane Rondon on 85-59-7329Srhboblm [Moles/Vol]105 mmol/L98-[address] [facility] HospitalColor Auto (U)Ordered By: Hanane Rondon on 22-35-0661Ucgps (U)YellowYellowMercy Health St. Elizabeth Youngstown HospitalCreatinine [Mass/volume] in Serum or PlasmaOrdered By: Hanane Rondon on 10-23-2023 Creatinine [Mass/Vol]0.58 mg/dL0.60-1.20[facility] Eosinophils Auto (Bld) [#/Vol]Ordered By: Hanane Rondon on 10-23-2023 Eosinophils (Bld) [#/Vol]0.2 10*3/uL0.0-0.45[facility] Eosinophils/100 WBC Auto (Bld)Ordered By: Hanane Rondon on 10-23-2023 Eosinophils/100 WBC (Bld)2.2 %.[facility] HospitalErythrocyte distribution width Auto (RBC) [Ratio]Ordered By: Hanane Rondon on 10-23-2023 Erythrocyte distribution width (RBC) [Ratio]15.4 %11.9-15.3FKindred Hospital LimaGlobulin Calc (S) [Mass/Vol]Ordered By: Hanane Rondon on 88-94-6337Obtrimnh (S) [Mass/Vol]3.2 g/dLMercy Health St. [facility] Glucose [Mass/volume] in Serum or PlasmaOrdered By: Hanane Rondon on 13-79-0327Xyrgxlv [Mass/Vol]313 mg/dY97-272RmxlcmhegMercy Health St. [facility] Hospital Comment on above:ADA recommended reference rangeRandom Glucose Reference Range is dependent on time and content of last meal. Glucose of more than 200 mg/dL in a nonstressed, ambulatory subject supports the diagnosisof Diabetes Mellitus. HCG ( test) IA.rapid Ql (U)Ordered By: Hanane Rondon on 46-98-0946JRU ( test) Ql (U)NegativeMercy Health St. Elizabeth Youngstown HospitalHematocrit Auto (Bld) [Volume fraction]Ordered By: Hanane Rondon on 02-22-6786Iuzkmbdaxb (Bld) [Volume fraction]36.6 %34.0-46.4FKindred Hospital Lima Hemoglobin [Mass/volume] in BloodOrdered By: Hanane Rondon on 10-23-2023 Hemoglobin (Bld) [Mass/Vol]12.3 g/dL11.8-15.4FKindred Hospital Lima Ketones Auto test strip (U) [Mass/Vol]Ordered By: Hanane Rondon on 10-23-2023 Ketones (U) [Mass/Vol]TraceNegativeMercy Health St. Elizabeth Youngstown HospitalLeukocytes [#/volume] corrected for nucleated erythrocytes in Blood by Automated coun Ordered By: Hanane Rondon on 61-52-6303VIM corrected for nucl RBC Auto (Bld) [#/Vol]9.5 10*3/uL3.8-11.6FKindred Hospital LimaLipase [Enzymatic activity/volume] in Serum or PlasmaOrdered By: Hanane Rondon on 10-23-2023 Lipase [Catalytic activity/Vol]50.0 U/L11.0-82.0[facility] HospitalLymphocytes Auto (Bld) [#/Vol]Ordered By: Hanane Rondon on 10-23-2023 Lymphocytes (Bld) [#/Vol]4.8 10*3/uL1.00-4.8[facility] Lymphocytes/100 WBC Auto (Bld)Ordered By: Hanane Rondon on 10-23-2023 Lymphocytes/100 WBC (Bld)50.4 %.[facility] HospitalMCH Auto (RBC) [Entitic mass]Ordered By: Hanane Rondon on 75-03-5219UTN (RBC) [Entitic mass] 30.2 pg24.7-34.3FKindred Hospital LimaMCHC Auto (RBC) [Mass/Vol] Ordered By: Hanane Rondon on 36-04-3515KKEJ (RBC) [Mass/Vol]33.6 g/dL32.0-35.[address] [facility] HospitalMCV Auto (RBC) [Entitic vol]Ordered By: Hanane Rondon on 77-84-3234IYZ (RBC) [Entitic vol]89.7 dO63-587CcbnbrtyvMercy Health St. Elizabeth Youngstown HospitalMonocyte distribution width [Entitic volume] in Blood by AutomatedOrdered By: Hanane Rondon on 14-18-6621Smzvssou distribution width Auto (Bld) [Entitic vol]17.04 %0.00-20.00[facility] Monocytes Auto (Bld) [#/Vol]Ordered By: Hanane Rondon on 56-97-3911Iddmbvcko (Bld) [#/Vol]0.5 10*3/uL0.0-0.8[facility] HospitalMonocytes/100 WBC Auto (Bld)Ordered By: Hanane Rondon on 55-12-4205Byiznroub/100 WBC (Bld) 5.0 %.[facility] HospitalNeutrophils Auto (Bld) [#/Vol]Ordered By: Hanane Rondon on 34-29-8895Cstasvnnytt (Bld) [#/Vol]3.9 10*3/uL1.8-7.[address] [facility] HospitalNeutrophils/100 WBC Auto (Bld)Ordered By: Hanane Rondon on 12-33-5247Cphbxahvhio/100 WBC (Bld)41.6 %.[facility] HospitalNitrite Test strip Ql (U)Ordered By: Hanane Rondon on 10-23-2023 Nitrite Ql (U)NegativeNegativeMercy Health St. Elizabeth Youngstown HospitalNo Panel InformationOrdered By: Hanane Rondon on 75-46-2127Zcmfkesdd GFR (CKD-EPI)> 60.0 mL/MinMercy Health St. Elizabeth Youngstown HospitalPharmacy Creatinine Clearance (Chem [address] [place], [place] [address]Nucleated erythrocytes [Presence] in Blood by Automated countOrdered By: Hanane Rondon on 16-39-0119Ukaalikmb RBC Auto Ql (Bld)0.2 /100{WBC}0-0.5FKindred Hospital LimaPlatelet mean volume Auto (Bld) [Entitic vol]Ordered By: Hanane Rondon on 62-45-1232Nwgdojcw mean volume (Bld) [Entitic vol]8.2 fL6.3-10.7FKindred Hospital Lima Platelets Auto (Bld) [#/Vol]Ordered By: Hanane Rondon on 49-52-0075Zbjppibhz (Bld) [#/Vol]386 10*3/pE403-578ZpswzwzhdMercy Health St. Elizabeth Youngstown HospitalPotassium [Moles/volume] in Serum or PlasmaOrdered By: Hanane Rondon on 10-23-2023 Potassium [Moles/Vol]3.3 mmol/L3.5-5.1FKindred Hospital LimaProtein Auto test strip (U) [Mass/Vol]Ordered By: Hanane Rondon on 36-08-8067Kaxezqn (U) [Mass/Vol]Trace mg/dLNegativeMercy Health St. Elizabeth Youngstown HospitalProtein [Mass/volume] in Serum or PlasmaOrdered By: Hanane Rondon on 95-61-2197Vjknfby [Mass/Vol]7.0 g/dL6.4-8.9[facility] HospitalRBC Auto (Bld) [#/Vol]Ordered By: Hanane Rondon on 25-73-2209CNK (Bld) [#/Vol]4.07 10*6/uL 3.60-5.00[facility] Medical Centererum or plasma albumin/globulin mass ratioOrdered By: Hanane Rondon on 56-02-9129Esrpuwe/Globulin [Mass ratio]1.2 {ratio}[facility] Centererum or plasma anion gap determination Ordered By: Hanane Rondon on 35-31-3921Tmpmo gap [Moles/Vol]13.2 mmol/L 6.0-15.0[facility] Centerodium [Moles/volume] in Serum or PlasmaOrdered By: Hanane Rondon on 53-55-0933Ynulwl [Moles/Vol]137 mmol/L 136-145[facility] Medical Centerpecific gravity Auto test strip (U) [Rel density]Ordered By: Hanane Rondon on 27-57-8931Eiaqzciu gravity (U) [Rel density]1.0361.001-1.030[facility] Medical Centerquamous epithelial cells detection in urine sediment by light microscopyOrdered By: Hanane Rondon on 38-28-7973Jwxalnaecg cells.squamous LM Ql (Urine sed)10-19 [HPF]0-2FKindred Hospital LimaUrea nitrogen [Mass/volume] in Serum or PlasmaOrdered By: Hanane Rondon on 38-69-2609Zbza nitrogen [Mass/Vol]10 mg/dL7-25[facility] HospitalUrine bacteria detection by automated methodOrdered By: Hanane Rondon on 60-07-6234Bbfasxuu Auto Ql (U)1+None SeenMercy Health St. Elizabeth Youngstown HospitalUrine clarity by refractometry automatedOrdered By: Hanane Rondno on 15-33-4057Jauycyc Refractometry automated (U)CloudyCleFostoria City HospitalUrine glucose measurement by automated test strip (mass/volume)Ordered By: Hanane Rondon on 93-49-5077Icrhrrp Auto test strip (U) [Mass/Vol]>=1000 mg/dLNoSouthview Medical CenterUrine hemoglobin detection by automated test stripOrdered By: Hanane Rondon on 47-95-8429Emxesefsvy Auto test strip Ql (U)TraceNegParkview Health Bryan HospitalUrine leukocyte esterase detection by automated test stripOrdered By: Hanane Rondon on 36-32-8309Evlwozuqh esterase Auto test strip Ql (U) NegativeNegParkview Health Bryan HospitalUrobilinogen Auto test strip (U) [Mass/Vol]Ordered By: Hanane Rondon on 82-85-3187Ewjgmdzaakko (U) [Mass/Vol]Normal mg/dLNoSouthview Medical CenterWBC Auto (Bld) [#/Vol]Ordered By: Hanane Rondon on 60-89-8224NTQ (Bld) [#/Vol]9.5 10*3/uL 3.8-11.6FKindred Hospital LimapH Auto test strip (U)Ordered By: Hanane Rondon on 90-72-0692zQ (U)5.5 [pH]5.0-9.0[facility] HospitalCBC AUTO DIFFon 98-21-5085JVJO #0.0 103/ulNormal0.0-0.1The [facility] HospitalComment on above:Performed By: #### PT, PTT #### [facility] [address] [place] [address] Dr. Tati ReillyBasophils/100 WBC (Bld)0.4 %Normal0.2-2.0[facility] Comment on above:Performed By: #### PT, PTT #### [facility] [address] [place] [address] Dr. Tati Chance #0.1 103/ulNormal0.0-0.7The [facility] HospitalComment on above: Performed By: #### PT, PTT #### [facility] [address] [place] [address] Dr. Tati Bettencourtosinophils/100 WBC (Bld)1.5 %Normal0.9-7.0[facility] Comment on above:Performed By: #### PT, PTT #### [facility] [address] [place] [address] Dr. Tati Bettencourtrythrocyte distribution width (RBC) [Ratio]14.4 %Eyfxyn11.0-15.0 [facility] HospitalComment on above:Performed By: #### PT, PTT #### [facility] [address] [place] [address] Dr. Tati ReillyHematocrit (Bld) [Volume fraction]38.9 %Eylnje56.0-48.0The [facility] HospitalComment on above:Performed By: #### PT, PTT #### [facility] [address] [place] [address] Dr. Tati ReillyHemoglobin (Bld) [Mass/Vol]12.9 g/iJNmntha64.0-16.0The [facility] HospitalComment on above:Performed By: #### PT, PTT #### [facility] [address] [place] [address] Dr. Tati Brar #0.03 10e3/ulNormal0.00-0.03The [facility] HospitalComment on above:Performed By: #### PT, PTT #### [facility] [address] [place] [address] Dr. Tati Brar %0.3 %Normal0.0-0.5The [facility] HospitalComment on above: Performed By: #### PT, PTT #### [facility] [address] [place] [address] Dr. Tati Cruz #4.3 103/ulCritically high1.2-3.8[facility] Comment on above:Performed By: #### PT, PTT #### [facility] [address] [place] [address] Dr. Tati Landonhocytes/100 WBC (Bld)45.7 %Atiizi91.5-60.0The [facility] HospitalComment on above:Performed By: #### PT, PTT #### [facility] [address] [place] [address] Dr. Tati Ponce DIFF REQNONormalThe [facility] HospitalComment on above: Performed By: #### PT, PTT #### [facility] [address] [place] [address] Dr. Tati Sarmiento (RBC) [Entitic mass]28.9 qgQthhln04.7-34.0The [facility] HospitalComment on above:Performed By: #### PT, PTT #### [facility] [address] [place] [address] Dr. Tati Chavarria (RBC) [Mass/Vol]33.2 g/oTVnckyr68.9-35.2The [facility] HospitalComment on above:Performed By: #### PT, PTT #### [facility] [address] [place] [address] Dr. Tati Chavarria (RBC) [Entitic vol]87.0 gAZjprkz47.0-99.0The [facility] HospitalComment on above:Performed By: #### PT, PTT #### [facility] [address] [place] [address] Dr. Tati Leahy #0.4 103/ulNormal0.3-0.8The [facility] HospitalComment on above:Performed By: #### PT, PTT #### [facility] [address] [place] [address] Dr. Tati Omerocytes/100 WBC (Bld)4.6 %Normal1.7-12.0[facility] Comment on above:Performed By: #### PT, PTT #### [facility] [address] [place] [address] Dr. Tati HerediaUT #4.5 103/ulNormal1.4-6.5The [facility] HospitalComment on above:Performed By: #### PT, PTT #### [facility] [address] [place] [address] Dr. Tati Herediautrophils/100 WBC (Bld)47.5 %Acjmfz44.0-75.0The [facility] HospitalComment on above:Performed By: #### PT, PTT #### [facility] [address] [place] [address] Dr. Tati ReillyPlatelet mean volume (Bld) [Entitic vol]9.8 fLNormal9.5-13.5The [facility] HospitalComment on above:Performed By: #### PT, PTT #### [facility] [address] [place] [address] Dr. Tati ReillyPLT405 103/nuWkfbnr420-438Hzt [facility] HospitalComment on above: Performed By: #### PT, PTT #### [facility] [address] [place] [address] Dr. Tati ReillyRBC4.47 106/ulNormal4.20-5.40The [facility] HospitalComment on above:Performed By: #### PT, PTT #### [facility] [address] [place] [address] Dr. Tati ReillyWBC9.4 103/ulNormal4.0-11.0The [facility] HospitalComment on above: Performed By: #### PT, PTT #### [facility] [address] [place] [address] Dr. Tati ReillyGLYCOHEMOGLOBIN A1Con 58-25-2882GEU RECOMMENDATIONSEE BELOWNormal The [facility] HospitalComment on above:Result Comment: ADA RECOMMENDED LIMIT 4.0 - 6.0 ADA THERAPEUTIC TARGET < 7.0 ACTION SUGGESTED > 7.0Performed By: #### A1C #### [facility] [address] [address] [address] Tati ReillyGlucose [Mass/Vol]177 mg/dLNoWVUMedicine Barnesville HospitalComment on above:Performed By: #### A1C #### [facility] [address] [address] [address] Tati ReillyHbA1c (Bld) [Mass fraction]7.8 %Critically high4.5-6.2The [facility] HospitalComment on above:Performed By: #### A1C #### [facility] [address] [address] [address] Tati StarkID PROFILEon 21-22-7347DVOT-HDL RATIO NORMSEE BELOWOhioHealth Doctors HospitalComment on above:Result Comment: 3.3 - 4.4 LOW RISK 4.4 - 7.1 AVERAGE RISK 7.1 - 11.0 MODERATE RISK >11.0 HIGH RISKPerformed By: #### LIPID, CMP #### [facility] [address] [address] [address] Tati Dalyesterol [Mass/Vol]188 mg/dLNormal<=200[facility] Comment on above:Performed By: #### LIPID, CMP #### [facility] [address] [address] [address] Tati ReillyCholesterol in HDL [Mass/Vol]33 mg/dLCritically lmv15-10Jzf [facility] HospitalComment on above:Performed By: #### LIPID, CMP #### [facility] [address] [address] [address] Tati ReillyCholesterol in LDL [Mass/Vol]140.4 mg/dLOhioHealth Doctors HospitalComment on above:Performed By: #### LIPID, CMP #### [facility] [address] [place] [address] Dr. Tati Dalyesterol.total/Cholesterol in HDL [Mass ratio]5.7 {ratio} NormalThe [facility] HospitalComment on above:Performed By: #### LIPID, CMP #### [facility] [address] [address] [address] Tati Whitley NORMAL> or = 60 mg/dl - LOW CARDIOVASCULAR RISK <40 mg/dl - HIGH CARDIOVASCULAR RISKOhioHealth Doctors HospitalComment on above:Performed By: #### LIPID, CMP #### [facility] [address] [address] [address] Tati Manley CALC NORMALSEE BELOWNoWVUMedicine Barnesville HospitalComment on above:Result Comment: <100 mg/dl OPTIMAL 100 - 129 mg/dl NEAR OR ABOVE OPTIMAL 130 - 159 mg/dl BORDERLINE HIGH 160 - 189 mg/dl HIGH >190 mg/dl VERY HIGH Performed By: #### LIPID, CMP #### [facility] [address] [place] [address] Dr. Tati ReillyTriglyceride [Mass/Vol]73 mg/dLNormal<=150The [facility] Comment on above:Performed By: #### LIPID, CMP #### [facility] [address] [place] [address] Dr. Tati BergmanLDL CALC14.6 mg/dLNoWVUMedicine Barnesville HospitalComment on above: Performed By: #### LIPID, CMP #### [facility] [address] [place] [address] Dr. Tati Saul PROFILEon 74-64-0624LIC [Catalytic activity/Vol]79 U/L Kafchu41-060Ubj [facility] HospitalCombeaumont hospital on above:Performed By: #### LIVER #### [facility] [address] [address] [address] Tati Mullen [Catalytic activity/Vol]26 U/IKqiahs95-38Phr [facility] HospitalComment on above:Performed By: #### LIVER #### [facility] [address] [place] [address] Dr. Tati Lee [Catalytic activity/Vol]12 U/LCritically hui23-74Zke [facility] HospitalCombeaumont hospital on above:Performed By: #### LIVER #### [facility] [address] [place] [address] Dr. Yilan ChangBILI, CONJUGATED0.1 mg/dLNormal0.0-0.2The [facility] Comment on above:Performed By: #### LIVER #### [facility] [address] [place] [address] Dr. Tati Casillasirubin [Mass/Vol]0.2 mg/dLNormal0.2-1.0[facility] Comment on above:Performed By: #### LIVER #### [facility] [address] [place] [address] Dr. Tati ReillyPRODeandre 14(COMP METB)on 70-71-0406Xqeispt [Mass/Vol]3.5 g/dLNormal 3.4-5.0The [facility] HospitalComment on above:Performed By: #### LIPID, CMP #### [facility] [address] [place] [address] Dr. Tati ReillyPerformed By: #### LIVER #### [facility] [address] [place] [address] Dr. Tati ReillyAlbumin/Globulin [Mass ratio]0.7 {ratio}NormalThe [facility] HospitalComment on above:Performed By: #### LIPID, CMP #### [facility] [address] [place] [address] Dr. Tati ReillyPerformed By: #### LIVER #### [facility] [address] [place] [address] Dr. Tati Mai [Catalytic activity/Vol]77 U/SJwihgd25-422Gal [facility] HospitalComment on above:Performed By: #### LIPID, CMP #### [facility] [address] [place] [address] Dr. Tati Mullen [Catalytic activity/Vol]27 U/JCguxzj21-67Jfj [facility] HospitalComment on above:Performed By: #### LIPID, CMP #### [facility] [address] [place] [address] Dr. Tati Sanchez gap [Moles/Vol]12.6 mmol/LNormalThe [facility] Comment on above:Performed By: #### LIPID, CMP #### [facility] [address] [address] [address] Tati ReillyAST [Catalytic activity/Vol]11 U/LCritically lpw89-33Fjw [facility] HospitalComment on above:Performed By: #### LIPID, CMP #### [facility] [address] [address] [address] Tati ReillyBilirubin [Mass/Vol]0.1 mg/dLCritically low0.2-1.0The [facility] HospitalComment on above:Performed By: #### LIPID, CMP #### [facility] [address] [address] [address] Tati ReillyCalcium [Mass/Vol]9.3 mg/dLNormal8.5-10.1The [facility] Comment on above:Performed By: #### LIPID, CMP #### [facility] [address] [place] [address] Dr. Tati ReillyChloride [Moles/Vol]105 mmol/HOekitd52-709Rsf [facility] Comment on above:Performed By: #### LIPID, CMP #### [facility] [address] [address] [address] Tati ReillyCO2 [Moles/Vol]22.3 mmol/FKdxwjk75.0-32.0The [facility] Comment on above:Performed By: #### LIPID, CMP #### [facility] [address] [place] [address] Dr. Tati ReillyCreatinine [Mass/Vol]0.58 mg/dLNormal0.55-1.02The [facility] HospitalComment on above:Performed By: #### LIPID, CMP #### [facility] [address] [place] [address] Dr. Tati BettencourtGFR-AF DANISH>60Normal>=60The [facility] HospitalComment on above:Performed By: #### LIPID, CMP #### [facility] [address] [place] [address] Dr. Tati BettencourtGFR-NON AF DANISH>60Normal>=60The [facility] HospitalComment on above:Performed By: #### LIPID, CMP #### [facility] [address] [address] [address] Tati ReillyGlobulin (S) [Mass/Vol]4.8 g/dLNoWVUMedicine Barnesville HospitalComment on above:Performed By: #### LIPID, CMP #### [facility] [address] [place] [address] Dr. Tati ReillyPerformed By: #### LIVER #### [facility] [address] [place] [address] Dr. Tati ReillyGlucose [Mass/Vol]142 mg/dLCritically clcs71-066Phb [facility] HospitalComment on above:Performed By: #### LIPID, CMP #### [facility] [address] [place] [address] Dr. Tati ReillyPotassium [Moles/Vol]3.9 mmol/LNormal3.5-5.1The [facility] Comment on above:Performed By: #### LIPID, CMP #### [facility] [address] [place] [address] Dr. Tati ReillyProtein [Mass/Vol]8.3 g/dLCritically high6.4-8.2The [facility] HospitalComment on above:Performed By: #### LIPID, CMP #### [facility] [address] [place] [address] Dr. Tati ReillyPerformed By: #### LIVER #### [facility] [address] [place] [address] Dr. Tati ReillySodium [Moles/Vol]136 mmol/EHhamin776-630Qiy [facility] Comment on above:Performed By: #### LIPID, CMP #### [facility] [address] [place] [address] Dr. Tati ReillyUrea nitrogen [Mass/Vol]10.0 mg/dLNormal7.0-18.0The [facility] HospitalComment on above:Performed By: #### LIPID, CMP #### [facility] [address] [place] [address] Dr. Tati ReillyUrea nitrogen/Creatinine [Mass ratio]17.2 mg/mgNoWVUMedicine Barnesville HospitalComment on above:Performed By: #### LIPID, CMP #### [facility] [address] [address] [address] Tati RossIMEon 00-38-7400THM Coag (PPP) [Relative time]{INR}NormalThe [facility] on above:Performed By: #### PT, PTT #### [facility] [address] [address] [address] Tati Feliciano GUIDELINESSEE BELOWNoWVUMedicine Barnesville HospitalComment on above:Result Comment: DESIRED INR: 2.0 - 3.0 CONDITIONS NOT LISTED BELOW 2.5 - 3.5 FOR PROSTHETIC HEART VALVE REPLACEMENT 2.5 - 3.5 RECURRENT THROMBOSIS Performed By: #### PT, PTT #### [facility] [address] [place] [address] Dr. Tati ReillyPT Coag (PPP) [Time]9.8 sNormal9.0-11.6The [facility] Comment on above:Performed By: #### PT, PTT #### [facility] [address] [place] [address] Dr. Tati Willis 46-66-8598cLCZ Coag (Bld) [Time]31.0 fOfobcn90.3-36.2The [facility] HospitalComment on above:Performed By: #### PT, PTT #### [facility] [address] [place] [address] Dr. Tati Ang CARDIAC STRESS/REST INJECTIONon 59-29-0040VEM CARDIAC STRESS/REST INJECTIONMRN: [id number] Patient Name: GARY VIGIL STUDY: MYOCARDIAL PERFUSION STRESS TEST WITH EXERCISE Performing facility: [facility], [address] [place] [address], [address], [address] Provider: Krystal Koehler MD, FACC PCP: Dr. Alfonso MARQUES Supervising provider: Joe Meek MD INDICATION: R94.31: Abnormal EKG R07.89: Chest discomfort R06.02: Shortness of breath on exertion Pre-operative risk assessment for Hysterectomy scheduled at [place] on 04/12/23. HISTORY: Gender: F; Age: 37 y/o ; Height: 0 cm; Weight: 0 kg. High Cholesterol; Diabetes; Family HX CAD; Abnormal EKG; Chest Pain; SOB; Edema, Asthma Currently smoking. COMPARISON: No comparison. ACCESSION NUMBER(S): [id number]; [id number]; [id number] ORDERING CLINICIAN: KRYSTAL KOEHLER TECHNIQUE: TWO DAY [...] of the Flash protocol.. Electronically signed by: Bonifacio HORTONLincoln Community HospitalNo Panel Informationon 28-73-0015[address] [address] DO Work Phone: Echocardiogramon [phone]n[address] [address] TRANSTHORACIC ECHOCARDIOGRAM REPORT Patient Name: GARY VIGIL Reading [id number] Jonah Rodriguez MD Physician: Study Date: 02/21/2023 Referring KRYSTAL KOEHLER Physician: MRN/PID: [id number] PCP: Dawna Accession/Order#: [id number] [facility] Location: Date of : 1985 Fellow: Gender: F Nurse: Wendy Brown RN Admit Date: [employer] Operator: Smita Rincon RDCS, RVT Height: 167.64 cm CC Report to: Rigoberto Montano Weight: 104.33 kg Study Type: Echocardiogram BSA: 2.12 m2 Diagnosis/ICD: R07.89-Other chest pain; R94.31-Abnormal electrocardiogram [ECG] [EKG] Indication: Diabetes, Edema, HTN, POC-Hysterectomy with Dr. Erika Montano 04/03/2023, Tobacco Abuse, Bipolar Disorder, [place], Morbid Obesity, Hypokalemia, Anemia, Shortness of Breath Procedure/CPT: Echo Complete w Full Doppler-[id number] Study Detail: The following Echo studies were [...] normal. There is no indication of pulmonic valveregurgitation. Pericardium: There is no pericardial effusion noted. [...] 0.8 m/s (0.6-0.9m/s) PV Max P.7 mmHg [id number] Jonah Rodriguez MD Electronically signed on 02/24/2023 at 2:03:49 PM Final NormalUH Viera HospitalCalcium [Mass/volume] in Serum or PlasmaOrdered By: Krystal Koehler on 61-63-1750Mrplase [Mass/Vol]10.0 mg/dL8.6-10.[address] [facility] HospitalCarbon dioxide, total [Moles/volume] in Serum or PlasmaOrdered By: Krystal Koehler on 28-93-6122LK0 [Moles/Vol]23.9 mmol/L 21.0-31.0[facility] HospitalChloride [Moles/volume] in Serum or PlasmaOrdered By: Krystal Koehler on 56-20-0842Nokbuseq [Moles/Vol]103 mmol/L98-[address] [facility] HospitalCreatinine [Mass/volume] in Serum or Plasma Ordered By: Krystal Koehler on 05-85-9581Ilbzbkobnh [Mass/Vol]0.63 mg/dL0.60-1.[address] [facility] HospitalGlucose [Mass/volume] in Serum or PlasmaOrdered By: Krystal Koehler on 75-21-1638Nxptbki [Mass/Vol]155 mg/xI47-127AaqjcdbwcMercy Health St. Elizabeth Youngstown HospitalComment on above:ADA recommended reference rangeRandom Glucose Reference Range is dependent on time and content of last meal. Glucose of more than 200 mg/dL in a nonstressed, ambulatory subject supports the diagnosisof Diabetes Mellitus.Laboratory - Chemistry and Chemistry - challenge Ordered By: Krystal Koehler on 25-90-8659VYL/1.73 sq M.predicted MDRD (S/P/Bld) [Vol rate/Area]mL/min/{1.73_m2}[facility] HospitalNo Panel InformationOrdered By: Krystal Koehler on 46-26-5027Gxzcxlgc Creatinine Clearance (ChemN/AFKindred Hospital LimaNo Panel Informationon 02-18-2023> 60.0 NormalMP-[facility] DO Work Phone: [phone]\S\14.8Vrdnnn2.0-15.0MP-[facility] Heart-[place] [address] DO Work Phone: [phone]\S\10.8Iqcpfm9.6-10.3MP-[facility]-[place] [address] DO Work Phone: Comment on above:PERFORMED BY:[facility] [place], [place] [phone] MEDICAL DIRECTORANGELA NORTON M.D.23.9\S\23.8Rljckk98.0-31.0MP-[facility] DO Work Phone: [phone]\S\617Oworgc63-274SP-Wmhot [place] [facility]-[place] [address] DO Work Phone: [phone]\S\4.0Tnrtir8.5-5.1MP-[facility] Heart-[place] [address] DO Work Phone: [phone]\S\425Kuylaf951-536DD-Macrm [place] [facility]-[place] [address] DO Work Phone: [phone]\S\0.19Lsatvy1.60-1.20MP-[facility]-[place] [address] DO Work Phone: [phone]\S\50Pouqra1-18AW-Qdopz [place] [facility]-[place] [address] DO Work Phone: [phone]\S\155above high ndzvgihui34-946GF-Agnlh [place] [facility]-[place] [address] DO Work Phone: Comment on above:Random Glucose Reference Range is dependent on time and content of last meal. Glucose of more than 200 mg/dL in a nonstressed, ambulatory subject supports the diagnosis of Diabetes Mellitus. ADA recommended reference rangePotassium [Moles/volume] in Serum or PlasmaOrdered By: Krystal Koehler on 14-96-4230Kzmcasehw [Moles/Vol]4.1 mmol/L3.5-5.1FCleveland Clinic Medina Hospitalerum or plasma anion gap determinationOrdered By: Krystal Koehler on 81-52-0027Pdxar gap [Moles/Vol]14.2 mmol/L6.0-15.0[facility] Centerodium [Moles/volume] in Serum or PlasmaOrdered By: Krystal Koehler on 02-36-1314Acbenk [Moles/Vol]137 mmol/Y658-120IwsvtopetMercy Health St. Elizabeth Youngstown HospitalUrea nitrogen [Mass/volume] in Serum or PlasmaOrdered By: Krystal Koehler on 60-19-8298Jhur nitrogen [Mass/Vol]13 mg/dL7-25[facility] Office Visit (Cardiology)on 02-55-3603Ewjmrw-up visitDiagnoses/Problems Assessed Abnormal EKG (794.31) (R94.31) Chest discomfort [...] You need to quit smoking.; Status:Complete; Done: 11Feb2023 Tobacco Use Screening; Status:Complete; Done: 11Feb2023 You need to stop smoking. Though it is not easy, more than half of all adult smokers have quit. We encourage you to write down all the reasons you should quit smoking and set a quit date for yourself. Ask us how we can help. You may also call 5-547-RKHDNOW for free resources and assistance.; Status:Complete; Done: [...] a pressure/tightness that comes and goes without provocation.It is not always related to activity, it [...] hemoglobin of 11.2 hematocrit 34.3 MCV 88.5 RDW15.8 platelets 380 INR 1.0 sodium 134 potassium [...] baseline EKG abnormalities, perfusion (more content not included)...NormalUH TouchworksTobacco Screening.on 11-23-1002Mjtnf depression screening assessmentNoProvidence [facility] Hospital [address] 250 DO Work Phone: Fall risk assessmentc) Not medically indicatedProvidence Holy Family Hospital [address] 250 DO Work Phone: Tobacco use status CPHSb) NoM-[facility] [address] 250 DO Work Phone: Activated partial thromboplastin time (aPTT) in platelet poor plasma by coagulation aOrdered By: Aron Trevino on 01-13-2023 aPTT Coag (PPP) [Time]34.2 s25.1-36.5FKindred Hospital LimaBasophils Auto (Bld) [#/Vol]Ordered By: Aron Trevino on 60-73-7529Rywnvbkrq (Bld) [#/Vol]0.1 10*3/uL0.0-0.2FKindred Hospital LimaBasophils/100 WBC Auto (Bld)Ordered By: Aron Trevino on 29-72-0545Igybgirnp/100 WBC (Bld)0.[address] %. [facility] HospitalCreatine kinase.MB [Mass/volume] in Serum or PlasmaOrdered By: Aron Trevino on 66-66-3852XR.MB [Mass/Vol]1.3 ng/mL0.6-6.[address] [facility] HospitalCreatinine and Glomerular filtration rate.predicted panel (S/P/Bld)Ordered By: Aron Trevino on 01-13-2023 Creatinine [Mass/Vol]0.66 mg/dL0.44-1.03[facility] Eosinophils Auto (Bld) [#/Vol]Ordered By: Aron Trevino on 01-13-2023 Eosinophils (Bld) [#/Vol]0.2 10*3/uL0.0-0.45[facility] Eosinophils/100 WBC Auto (Bld)Ordered By: Aron Trevino on 01-13-2023 Eosinophils/100 WBC (Bld)1.6 %.[facility] HospitalErythrocyte distribution width Auto (RBC) [Ratio]Ordered By: Aron Trevino on 01-13-2023 Erythrocyte distribution width (RBC) [Ratio]15.8 %11.9-15.3FKindred Hospital LimaEstimated glomerular filtration rate (GFR) non- Ordered By: Aron Trevino on 24-33-3130MBO/1.73 sq M.predicted among non- blacks MDRD (S/P/Bld) [Vol rate/Area]> 60 mL/MinMercy Health St. Elizabeth Youngstown HospitalHematocrit Auto (Bld) [Volume fraction]Ordered By: Aron Trevino on 04-36-5243Mpbmeagajt (Bld) [Volume fraction]34.3 %34.0-46.4FKindred Hospital LimaHemoglobin [Mass/volume] in BloodOrdered By: Aron Trevino on 92-72-0289Gplbhmyrms (Bld) [Mass/Vol]11.2 g/dL11.8-15.4FKindred Hospital LimaLaboratory - Chemistry and Chemistry - challengeOrdered By: Aron Trevino on 41-58-7736Ylnshtsoprd peptide B (Bld) [Mass/Vol]22.0 pg/mL 5-100[facility] HospitalLaboratory - CoagulationOrdered By: Aron Trevino on 73-91-2872WG Coag (PPP) [Time]11.4 s9.0-12.9[facility] HospitalLeukocytes [#/volume] corrected for nucleated erythrocytes in Blood by Automated counOrdered By: Aron Trevino on 29-39-5618DCE corrected for nucl RBC Auto (Bld) [#/Vol]12.4 10*3/uL3.8-11.[address] [facility] HospitalLymphocytes Auto (Bld) [#/Vol]Ordered By: Aron Trevino on 90-96-9724Fxvaytpgcfe (Bld) [#/Vol]5.1 10*3/uL1.00-4.[address] [facility] HospitalLymphocytes/100 WBC Auto (Bld)Ordered By: Aron Trevino on 17-38-9889Wwyeuqrfxlj/100 WBC (Bld)41.4 %.[facility] HospitalH Auto (RBC) [Entitic mass]Ordered By: Aron Trevino on 01-77-5350ELA (RBC) [Entitic mass]29.0 pg24.7-34.3FKindred Hospital LimaMCHC Auto (RBC) [Mass/Vol]Ordered By: Aron Trevino on 29-74-6785SPHI (RBC) [Mass/Vol]32.7 g/dL32.0-35.0[facility] HospitalMCV Auto (RBC) [Entitic vol]Ordered By: Aron Trevino on 02-51-9672UZA (RBC) [Entitic vol]88.5 yA90-918GagpvzdhwMercy Health St. Elizabeth Youngstown HospitalMonocyte distribution width [Entitic volume] in Blood by AutomatedOrdered By: Aron Trevino on 01-13-2023 Monocyte distribution width Auto (Bld) [Entitic vol]18.05 %0.00-20.00[facility] HospitalMonocytes Auto (Bld) [#/Vol]Ordered By: Aron Trevino on 80-36-6763Vsghnftwe (Bld) [#/Vol]0.6 10*3/uL0.0-0.8[facility] HospitalMonocytes/100 WBC Auto (Bld)Ordered By: Aron Trevino on 01-13-2023 Monocytes/100 WBC (Bld)5.2 %.[facility] HospitalNeutrophils Auto (Bld) [#/Vol]Ordered By: Aron Trevino on 08-23-9700Cvjvdljcstg (Bld) [#/Vol] 6.3 10*3/uL1.8-7.7FKindred Hospital LimaNeutrophils/100 WBC Auto (Bld)Ordered By: Aron Trevino on 86-97-7817Npabeqouqqp/100 WBC (Bld)51.0 %. [facility] HospitalNo Panel InformationOrdered By: Aron Trevino on 84-83-4905H-Dimer Quantitative (PE/DVT)< 200 ng/mL0-243[facility] HospitalComment on above:The reference range for D-dimer is <243 ng/mL [...] be increased in hospitalized patients due toco-morbid conditions.Estimated GFR ()> 60 mL/MinMercy Health St. Elizabeth Youngstown HospitalComment on above: GFR estimated reference range: According to KDOQI guidelines, <60 ml/min/1.73m2 is sufficient todiagnose a patient with chronic kidney disease.Pharmacy Creatinine Clearance (Pith728.66[facility] HospitalNucleated erythrocytes [Presence] in Blood by Automated countOrdered By: Aron Trevino on 69-90-8665Kqcftzaog RBC Auto Ql (Bld)0.1 /100{WBC}0-0.5FKindred Hospital LimaPlatelet mean volume Auto (Bld) [Entitic vol]Ordered By: Aron Trevino on 30-21-7651Ufggogtb mean volume (Bld) [Entitic vol]7.4 fL6.3-10.[address] [facility] HospitalPlatelet poor plasma international normalized ratio (INR) by coagulation assay (relatOrdered By: Aron Trevino on 48-39-3353MKK Coag (PPP) [Relative time]1.0 {INR}[facility] HospitalComment on above:INR Therapeutic Range A) Pre- and Peroperative OAT started two weeks before surgery. NOT HIP SURGERY: 1.5 - 2.5 HIP SURGERY: 2 - 3B) Primary and secondary prevention of venous THROMBOSIS: 2 - 3C) Active venous thrombosis, pulmonary embolismand prevention of recurrent venous thrombosis: 2 - 3D) Prevention of arterial thromboembolismincluding patients with mechanical heart valves: 3 - 4.5Platelets Auto (Bld) [#/Vol]Ordered By: Aron Trevino on 90-81-1508Fuwvssfve (Bld) [#/Vol]380 10*3/bF139-616RfuweukoiMercy Health St. Elizabeth Youngstown HospitalRBC Auto (Bld) [#/Vol]Ordered By: Aron Trevino on 59-98-2271ODF (Bld) [#/Vol]3.88 10*6/uL3.60-5.00[facility] Medical Centererum or plasma anion gap determinationOrdered By: Aron Trevino on 95-34-0456Vzwzt gap [Moles/Vol]11.4 mmol/L6.0-15.0[facility] Medical Centererum or plasma calcium measurement (mass/volume)Ordered By: Aron Trevino on 01-13-2023 Calcium [Mass/Vol]8.7 mg/dL8.2-10.2FCleveland Clinic Medina Hospitalerum or plasma chloride measurement (moles/volume)Ordered By: Aron Trevino on 53-96-3169Wheufswn [Moles/Vol]104 mmol/V56-987IzfejwlozMercy Health St. [facility] Serum or plasma creatine kinase MB (CKMB)/total creatine kinase (CK) ratio by calculaOrdered By: Aron Trevino on 67-39-3910PE.MB Calc [Catalytic fraction] TNPMercy Health St. Elizabeth Youngstown HospitalComment on above:Test not performedSerum or plasma glucose measurement (mass/volume)Ordered By: Aron Trevino on 77-68-8439Vkiifyc [Mass/Vol]222 mg/oD70-640WcfoabqjeMercy Health St. [facility] Comment on above:ADA recommended reference rangeRandom Glucose Reference Range is dependent on time and content of last meal. Glucose of more than 200 mg/dL in a nonstressed, ambulatory subject supports the diagnosisof Diabetes Mellitus. Serum or plasma potassium measurement (moles/volume)Ordered By: Aron Trevino on 33-52-5325Tfshbnisa [Moles/Vol]3.0 mmol/L3.5-5.1FCleveland Clinic Medina Hospitalerum or plasma sodium measurement (moles/volume)Ordered By: Aron Trevino on 47-79-0917Cwsxtp [Moles/Vol]134 mmol/U474-549YlygyujrgTrumbull Regional Medical Centererum or plasma total carbon dioxide measurement (moles/volume) Ordered By: Aron Trevino on 98-35-6529LM6 [Moles/Vol]21.6 mmol/L22.0-30.0 [facility] Centererum or plasma urea nitrogen measurement (mass/volume)Ordered By: Aron Trevino on 65-37-4084Phqx nitrogen [Mass/Vol]5 mg/dL9-23[facility] HospitalTroponin I.cardiac [Mass/volume] in Serum or Plasma by High sensitivity methodOrdered By: Aron Trevino on 00-18-9372Mmlivdfs I.cardiac High sensitivity method [Mass/Vol]< 3 pg/mL0-[address] [facility] HospitalWBC Auto (Bld) [#/Vol]Ordered By: Aron Trevino on 25-01-1398BGT (Bld) [#/Vol]12.4 10*3/uL3.8-11.6FKindred Hospital LimaCBC AUTO DIFFon 49-41-5879EMUY #0.0 103/ulNormal0.0-0.1[facility] HospitalComment on above:Performed By: #### PT, PTT #### [facility] [address] [place] [address] Dr. Tati ReillyBasophils/100 WBC (Bld)0.3 %Normal0.2-2.0[facility] Comment on above:Performed By: #### PT, PTT #### [facility] [address] [place] [address] Dr. Tati Chance #0.1 103/ulNormal0.0-0.7The [facility] HospitalComment on above: Performed By: #### PT, PTT #### [facility] [address] [place] [address] Dr. Tati Bettencourtosinophils/100 WBC (Bld)1.9 %Normal0.9-7.0[facility] Comment on above:Performed By: #### PT, PTT #### [facility] [address] [place] [address] Dr. Tati Bettencourtrythrocyte distribution width (RBC) [Ratio]14.3 %Pdktka20.0-15.0 [facility] HospitalComment on above:Performed By: #### PT, PTT #### [facility] [address] [place] [address] Dr. Tati ReillyHematocrit (Bld) [Volume fraction]32.8 %Critically low36.0-48.0 [facility] HospitalComment on above:Performed By: #### PT, PTT #### [facility] [address] [place] [address] Dr. Tati ReillyHemoglobin (Bld) [Mass/Vol]12.1 g/yWSoiars05.0-16.0[facility] HospitalComment on above:Performed By: #### PT, PTT #### [facility] [address] [place] [address] Dr. Tati Brar #0.01 10e3/ulNormal0.00-0.03[facility] on above:Performed By: #### PT, PTT #### [facility] [address] [place] [address] Dr. Tati Brar %0.1 %Normal0.0-0.5The [facility] HospitalCombeaumont hospital on above: Performed By: #### PT, PTT #### [facility] [address] [place] [address] Dr. Tati Cruz #2.7 103/ulNormal1.2-3.8The [facility] HospitalComment on above:Performed By: #### PT, PTT #### [facility] [address] [place] [address] Dr. Tati Landonhocytes/100 WBC (Bld)39.6 %Vurfej30.5-60.0[facility] on above:Performed By: #### PT, PTT #### [facility] [address] [place] [address] Dr. Tati OdenUAL DIFF REQNONormalThe [facility] HospitalCombeaumont hospital on above: Performed By: #### PT, PTT #### [facility] [address] [place] [address] Dr. Tati Sarmiento (RBC) [Entitic mass]29.4 plJrewfi40.7-34.0[facility] on above:Performed By: #### PT, PTT #### [facility] [address] [place] [address] Dr. Tati Chavarria (RBC) [Mass/Vol]36.9 g/dLCritically high29.9-35.2[facility] on above:Performed By: #### PT, PTT #### [facility] [address] [place] [address] Dr. Tati Chavarria (RBC) [Entitic vol]79.6 fLCritically low81.0-99.0The [facility] HospitalComment on above:Performed By: #### PT, PTT #### [facility] [address] [place] [address] Dr. Tati Leahy #0.3 103/ulNormal0.3-0.8The [facility] Rita's Hospitalment on above:Performed By: #### PT, PTT #### [facility] [address] [place] [address] Dr. Tati Omerocytes/100 WBC (Bld)4.6 %Normal1.7-12.0[facility] Comment on above:Performed By: #### PT, PTT #### [facility] [address] [place] [address] Dr. Tati Davis #3.6 103/ulNormal1.4-6.5The [facility] Rita's Hospitalment on above:Performed By: #### PT, PTT #### [facility] [address] [place] [address] Dr. Tati Herediautrophils/100 WBC (Bld)53.5 %Nzryti64.0-75.0The [facility] HospitalComment on above:Performed By: #### PT, PTT #### [facility] [address] [place] [address] Dr. Tati Xavierlet mean volume (Bld) [Entitic vol]8.8 fLCritically low 9.5-13.5The [facility] Hospitalment on above:Performed By: #### PT, PTT #### [facility] [address] [place] [address] Dr. Tati ReillyPLT357 103/fnAtcihv028-529Hmh [facility] Hospitalment on above: Performed By: #### PT, PTT #### [facility] [address] [place] [address] Dr. Tati ReillyRBC4.12 106/ulCritically low4.20-5.40The [facility] on above:Performed By: #### PT, PTT #### [facility] [address] [place] [address] Dr. Tati ReillyWBC6.7 103/ulNormal4.0-11.0The [facility]ment on above: Performed By: #### PT, PTT #### [facility] [address] [address] [address] Tati Saul PROFILEon 41-06-3030Ialfxjn [Mass/Vol]3.5 g/dLNormal3.4-5.0 The [facility] HospitalComment on above:Performed By: #### LIVER, BMP #### [facility] [address] [place] [address] Dr. Tati ReillyAlbumin/Globulin [Mass ratio]0.9 {ratio}NormalThe [facility] HospitalComment on above:Performed By: #### LIVER, BMP #### [facility] [address] [place] [address] Dr. Tati Mai [Catalytic activity/Vol]77 U/CRokcmb01-140Dyn [facility] HospitalComment on above:Performed By: #### LIVER, BMP #### [facility] [address] [place] [address] Dr. Tati Mullen [Catalytic activity/Vol]22 U/TVfkqeu48-57Gey [facility] HospitalComment on above:Performed By: #### LIVER, BMP #### [facility] [address] [place] [address] Dr. Tati Lee [Catalytic activity/Vol]18 U/QHiyxtt59-93Myb [facility] Hospitalment on above:Performed By: #### LIVER, BMP #### [facility] [address] [place] [address] Dr. Ttai Shultz, CONJUGATED0.1 mg/dLNormal0.0-0.2[facility] Comment on above:Performed By: #### LIVER, BMP #### [facility] [address] [place] [address] Dr. Tati Casillasirubin [Mass/Vol]0.2 mg/dLNormal0.2-1.0[facility] Comment on above:Performed By: #### LIVER, BMP #### [facility] [address] [place] [address] Dr. Tati ReillyGlobulin (S) [Mass/Vol]3.9 g/dLNormalThe [facility] HospitalComment on above:Performed By: #### LIVER, BMP #### [facility] [address] [place] [address] Dr. Tati ReillyProtein [Mass/Vol]7.4 g/dLNormal6.4-8.2[facility] Comment on above:Performed By: #### LIVER, BMP #### [facility] [address] [place] [address] Dr. Tati ReillyPROF CHEM 8 (BAS METB)on 04-63-3121Azpzo gap [Moles/Vol]14.4 mmol/LNormalFort Hamilton HospitalComment on above:Performed By: #### LIVER, BMP #### [facility] [address] [place] [address] Dr. Tati ReillyCalcium [Mass/Vol]8.8 mg/dLNormal8.5-10.1[facility] Comment on above:Performed By: #### LIVER, BMP #### [facility] [address] [place] [address] Dr. Tati ReillyChloride [Moles/Vol]103 mmol/XFjioma41-676Qbr [facility] Comment on above:Performed By: #### LIVER, BMP #### [facility] [address] [place] [address] Dr. Tati ReillyCO2 [Moles/Vol]24.6 mmol/BYecitd43.0-32.0[facility] Comment on above:Performed By: #### LIVER, BMP #### [facility] [address] [place] [address] Dr. Tati ReillyCreatinine [Mass/Vol]0.61 mg/dLNormal0.55-1.02The [facility] HospitalComment on above:Performed By: #### LIVER, BMP #### [facility] [address] [place] [address] Dr. Duffy ChangEGFR-AF DANISH>60Normal>=60The [facility] HospitalComment on above:Performed By: #### LIVER, BMP #### [facility] [address] [address] [address] Tati BettencourtGFR-NON AF DANISH>60Normal>=60The [facility]ment on above:Performed By: #### LIVER, BMP #### [facility] [address] [place] [address] Dr. Tati ReillyGlucose [Mass/Vol]173 mg/dLCritically tznb17-207Bqh [facility] HospitalComment on above:Performed By: #### LIVER, BMP #### [facility] [address] [place] [address] Dr. Tati ReillyPotassium [Moles/Vol]3.0 mmol/LCritically low3.5-5.1The [facility] HospitalCombeaumont hospital on above:Performed By: #### LIVER, BMP #### [facility] [address] [place] [address] Dr. Tati ReillySodium [Moles/Vol]139 mmol/MVbrocc409-377Agm [facility] Comment on above:Performed By: #### LIVER, BMP #### [facility] [address] [place] [address] Dr. Tati ReillyUrea nitrogen [Mass/Vol]7.0 mg/dLNormal7.0-18.0[facility] on above:Performed By: #### LIVER, BMP #### [facility] [address] [place] [address] Dr. Tati Beebe nitrogen/Creatinine [Mass ratio]11.5 mg/mgNormalThe [facility] HospitalComment on above:Performed By: #### LIVER, BMP #### [facility] [address] [place] [address] Dr. Tati ReillyPROTIMEon 41-84-7789AWA Coag (PPP) [Relative time]0.97 {INR} NormalThe [facility] HospitalCombeaumont hospital on above:Performed By: #### PTT, PT #### [facility] [address] [place] [address] Dr. Tati Feliciano GUIDELINESSEE BELOWOhioHealth Doctors HospitalComment on above:Result Comment: DESIRED INR: 2.0 - 3.0 CONDITIONS NOT LISTED BELOW 2.5 - 3.5 FOR PROSTHETIC HEART VALVE REPLACEMENT 2.5 - 3.5 RECURRENT THROMBOSIS Performed By: #### PTT, PT #### [facility] [address] [place], [place] [address] Dr. Tati ReillyPT Coag (PPP) [Time]10.3 sNormal9.0-11.6The [facility] Comment on above:Performed By: #### PTT, PT #### [facility] [address] [place], [place] [address] Dr. Tati Willis 86-95-4835mUZJ Coag (Bld) [Time]29.1 jUsbenm47.3-36.2The [place] HospitalComment on above:Performed By: #### PTT, PT #### [facility] [address] [place], [place] [address] Dr. Tati ReillyActivated partial thromboplastin time (aPTT) in platelet poor plasma by coagulation aOrdered By: Rigoberto Montano on 17-99-0269rVYT Coag (PPP) [Time]33.3 s25.1-36.5FKindred Hospital LimaBasophils Auto (Bld) [#/Vol]Ordered By: Rigoberto Montano on 78-94-7138Vwvreonnl (Bld) [#/Vol]0.1 10*3/uL 0.0-0.2FKindred Hospital LimaBasophils/100 WBC Auto (Bld)Ordered By: Rigoberto Montano on 90-15-3962Pboqoecgc/100 WBC (Bld)0.8 %.[facility] HospitalEosinophils Auto (Bld) [#/Vol]Ordered By: Rigoberto Montano on 12-08-2022 Eosinophils (Bld) [#/Vol]0.2 10*3/uL0.0-0.45[facility] Eosinophils/100 WBC Auto (Bld)Ordered By: Rigoberto Montano on 12-08-2022 Eosinophils/100 WBC (Bld)2.4 %.[facility] HospitalErythrocyte distribution width Auto (RBC) [Ratio]Ordered By: Rigoberto Montano on 12-08-2022 Erythrocyte distribution width (RBC) [Ratio]16.1 %11.9-15.3FKindred Hospital LimaHematocrit Auto (Bld) [Volume fraction]Ordered By: Rigoberto Montano on 41-77-7013Tlflzegxtg (Bld) [Volume fraction]34.8 %34.0-46.4FKindred Hospital LimaHemoglobin [Mass/volume] in BloodOrdered By: Rigoberto Montano on 73-02-2289Emtcrsbeop (Bld) [Mass/Vol]11.5 g/dL11.8-15.4FKindred Hospital LimaLaboratory - CoagulationOrdered By: Rigoberto Montano on 68-89-2035DU Coag (PPP) [Time]11.4 s9.0-12.9[facility] HospitalLeukocytes [#/volume] corrected for nucleated erythrocytes in Blood by Automated coun Ordered By: Rigoberto Montano on 45-51-0285OIM corrected for nucl RBC Auto (Bld) [#/Vol]9.8 10*3/uL3.8-11.6FKindred Hospital LimaLymphocytes Auto (Bld) [#/Vol]Ordered By: Rigoberto Montano on 65-80-2105Wjqcbzwcdpb (Bld) [#/Vol]3.7 10*3/uL1.00-4.8[facility] HospitalLymphocytes/100 WBC Auto (Bld) Ordered By: Rigoberto Montano on 63-13-8696Dndeqkyjazq/100 WBC (Bld)38.1 %.[facility] HospitalMCH Auto (RBC) [Entitic mass]Ordered By: Rigoberto Montano on 97-16-5071NEW (RBC) [Entitic mass]29.2 pg24.7-34.3FKindred Hospital LimaMCHC Auto (RBC) [Mass/Vol]Ordered By: Rigoberto Montano on 75-61-8448TCYU (RBC) [Mass/Vol]33.0 g/dL32.0-35.0[facility] HospitalMCV Auto (RBC) [Entitic vol]Ordered By: Rigoberto Montano on 86-91-9469FTC (RBC) [Entitic vol]88.4 fL 80-100[facility] HospitalMonocytes Auto (Bld) [#/Vol]Ordered By: Rigoberto Montano on 17-12-6416Upijffdcv (Bld) [#/Vol]0.5 10*3/uL0.0-0.8[facility] HospitalMonocytes/100 WBC Auto (Bld)Ordered By: Rigoberto Montano on 73-73-7614Mtydrnoxa/100 WBC (Bld)5.3 %.[facility] Neutrophils Auto (Bld) [#/Vol]Ordered By: Rigoberto Montano on 06-66-1393Djroxsaqrqo (Bld) [#/Vol]5.2 10*3/uL1.8-7.7FKindred Hospital LimaNeutrophils/100 WBC Auto (Bld)Ordered By: Rigoberto Montano on 73-32-3920Twarjfjupnq/100 WBC (Bld)53.4 %.[facility] HospitalNucleated erythrocytes [Presence] in Blood by Automated countOrdered By: Rigoberto Montano on 74-54-1222Rqelqvmok RBC Auto Ql (Bld)0.1 /100{WBC}0-0.5FKindred Hospital LimaPlatelet mean volume Auto (Bld) [Entitic vol]Ordered By: Rigoberto Montano on 94-13-0059Dceskxsy mean volume (Bld) [Entitic vol]8.0 fL6.3-10.7FKindred Hospital Lima Platelet poor plasma international normalized ratio (INR) by coagulation assay (relatOrdered By: Rigoberto Montano on 54-37-5131DZC Coag (PPP) [Relative time]1.0 {INR}[facility] HospitalComment on above:INR Therapeutic Range A) Pre- and Peroperative OAT started two weeks before surgery. NOT HIP SURGERY: 1.5 - 2.5 HIP SURGERY: 2 - 3B) Primary and secondary prevention of venous THROMBOSIS: 2 - 3C) Active venous thrombosis, pulmonary embolismand prevention of recurrent venous thrombosis: 2 - 3D) Prevention of arterial thromboembolismincluding patients with mechanical heart valves: 3 - 4.5Platelets Auto (Bld) [#/Vol]Ordered By: Rigoberto Montano on 21-86-5301Trfamizit (Bld) [#/Vol] 362 10*3/cZ734-830MyzlsiveaMercy Health St. Elizabeth Youngstown HospitalRBC Auto (Bld) [#/Vol]Ordered By: Rigoberto Montano on 78-20-7370GOH (Bld) [#/Vol]3.94 10*6/uL3.60-5.00[facility] HospitalTSH DL <= 0.005 mIU/L QnOrdered By: Rigoberto Montano on 05-76-4206TFD Qn1.43 m[IU]/L0.45-5.33[facility] HospitalThyroxine (T4) free [Mass/volume] in Serum or PlasmaOrdered By: Rigoberto Montano on 12-08-2022 Free T4 [Mass/Vol]0.75 ng/dL0.61-1.12[facility] HospitalWBC Auto (Bld) [#/Vol]Ordered By: Rigoberto Montano on 84-12-3833ZHV (Bld) [#/Vol]9.8 10*3/uL 3.8-11.6FKindred Hospital LimaPap IG,rfx Aptima HPV all pthon 12-07-2022..NormalThe [facility] HospitalComment on above:Performed By: #### PT, PTT #### [facility] [address] [place] [address] Dr. Tati ReillyDIAGNOSIS:CommentNormDelaware County Hospitalment on above: Result Comment: NEGATIVE FOR INTRAEPITHELIAL LESION OR MALIGNANCY. PREDOMINANCE OF COCCOBACILLI CONSISTENT WITH SHIFT IN VAGINAL PATRIC IS PRESENT.Performed By: #### PT, PTT #### [facility] [address] [address] [address] Tati ReillyMethodology:CommentNormDelaware County Hospitalment on above: Result Comment: This liquid based ThinPrep(R) pap test was screened with the use of an image guided system.Performed By: #### PT, PTT #### [facility] [address] [address] [address] Tati ReillyNote:CommentNoLouis Stokes Cleveland VA Medical Centerment on above:Result Comment: The Pap smear is a screening test designed to aid in the detection of premalignant and malignant conditions of the uterine cervix. It is not a diagnostic procedure and should not be used as the sole means of detecting cervical cancer. Both false-positive and false-negative reports do occur. .Performed By: #### PT, PTT #### [facility] [address] [place] [address] Dr. Tati ReillyPerformed by:CommentMercy Health Kings Mills Hospital on above: Result Comment: Gladys Valerio, Professor Of Latin American Studies (ASCP)Performed By: #### PT, PTT #### [facility] [address] [place] [address] Dr. Tati ReillyReflex Criteria:[facility] on above:Result Comment: The HPV DNA reflex criteria were not met with this specimen result therefore, no HPV testing was performed. .Performed By: #### PT, PTT #### [facility] [address] [address] [address] Tati ReillySpecimen adequacy:[facility] on above:Result Comment: Satisfactory for evaluation. Endocervical and/or squamous metaplastic cells (endocervical component) are present.Performed By: #### PT, PTT #### [facility] [address] [place] [address] Dr. Tati ReillyGlucose mean value [Mass/volume] in Blood Estimated from glycated hemoglobinOrdered By: Rigoberto Montano on 81-95-9111Rqoyrdi glucose Estimated from glycated hemoglobin (Bld) [Mass/Vol]140 mg/dLMercy Health St. [facility] Hemoglobin A1c percentageOrdered By: Rigoberto Montano on 51-40-9889AkK1z (Bld) [Mass fraction]6.5 %4.3-5.6FKindred Hospital LimaComment on above:Increased risk for diabetes: 5.7 - 6.4diabetes: >6.4glycemic control for adults with diabetes: <7.0Activated partial thromboplastin time (aPTT) in platelet poor plasma by coagulation aOrdered By: Hanane Rondon on 83-09-3340jFHU Coag (PPP) [Time]34.9 s25.1-36.5FKindred Hospital LimaAnisocytosis LM Ql (Bld) Ordered By: Hanane Rondon on 62-63-6659Oozwhishyknt Ql (Bld)SlightMercy Health St. Elizabeth [facility] HospitalBasophils Auto (Bld) [#/Vol]Ordered By: Haanne Rondon on 33-38-6838Lzjsimffi (Bld) [#/Vol]0.1 10*3/uL0.0-0.2FKindred Hospital LimaBasophils/100 WBC Auto (Bld)Ordered By: Hanane Rondon on 09-21-2022 Basophils/100 WBC (Bld)1.1 %.[facility] HospitalCreatine kinase [Enzymatic activity/volume] in Serum or PlasmaOrdered By: Hanane Rondon on 69-64-2734AS [Catalytic activity/Vol]82 U/J53-742HjrweqsuzMercy Health St. Elizabeth Youngstown HospitalCreatinine and Glomerular filtration rate.predicted panel (S/P/Bld)Ordered By: Hanane Rondon on 01-93-9755Hxagbmgpsz [Mass/Vol]0.63 mg/dL0.44-1.[address] [facility] HospitalEosinophils Auto (Bld) [#/Vol]Ordered By: Hanane Rondon on 24-42-8737Ktkuemakdqp (Bld) [#/Vol]0.2 10*3/uL0.0-0.[address] [facility] HospitalEosinophils/100 WBC Auto (Bld)Ordered By: Hanane Rondon on 56-50-3360Lnzlusjxcym/100 WBC (Bld)2.3 %.[facility] HospitalErythrocyte distribution width Auto (RBC) [Ratio]Ordered By: Hanane Rondon on 24-77-6104Nqiedbsxniv distribution width (RBC) [Ratio]15.4 % 11.9-15.3FKindred Hospital LimaEstimated glomerular filtration rate (GFR) non- AmericanOrdered By: Hanane Rondon on 98-96-1924EXE/1.73 sq M.predicted among non-blacks MDRD (S/P/Bld) [Vol rate/Area]> 60 mL/MinMercy Health St. Elizabeth Youngstown HospitalHematocrit Auto (Bld) [Volume fraction]Ordered By: Hanane Rondon on 91-90-9200Dyqxjunmbl (Bld) [Volume fraction]34.8 %34.0-46.[address] [facility] HospitalHemoglobin [Mass/volume] in BloodOrdered By: Hanane Rondon on 16-95-0194Riclxptyba (Bld) [Mass/Vol]11.4 g/dL11.8-15.[address] [facility] HospitalLaboratory - Chemistry and Chemistry - challengeOrdered By: Hanane Rondon on 22-34-6595Wvsioycddas peptide B (Bld) [Mass/Vol]5.0 pg/mL5-100[facility] HospitalLaboratory - CoagulationOrdered By: Hanane Rondon on 76-36-1175PF Coag (PPP) [Time]11.6 s 9.0-12.9[facility] HospitalLaboratory - Hematology and Cell counts Ordered By: Hanane Rondon on 66-34-2187Vaxbkrgss RBC/100 WBC (Bld) [Ratio]0.1 %0-0.5FKindred Hospital LimaLeukocytes [#/volume] in Blood by Automated countOrdered By: Hanane Rondon on 43-41-0125AWR (Bld) [#/Vol]9.5 10*3/uL4.5-11.0[facility] HospitalLymphocytes Auto (Bld) [#/Vol] Ordered By: Hanane Rondon on 12-16-4440Dcevbmpvnjj (Bld) [#/Vol]4.1 10*3/uL 1.00-4.8[facility] HospitalLymphocytes/100 WBC Auto (Bld)Ordered By: Hanane Rondon on 61-67-2800Vzwgnerojtj/100 WBC (Bld)43.0 %.[facility] Auto (RBC) [Entitic mass]Ordered By: Hanane Rondon on 19-21-0625CBP (RBC) [Entitic mass]28.8 pg24.7-34.3FMemorial Health System Auto (RBC) [Mass/Vol]Ordered By: Hanane Rondon on 50-98-1538QPMT (RBC) [Mass/Vol]32.6 g/dL32.0-35.0[facility] HospitalMCV Auto (RBC) [Entitic vol]Ordered By: Hanane Rondon on 06-59-5818GYX (RBC) [Entitic vol]88.1 hT77-825JdzcovqlqMercy Health St. Elizabeth Youngstown HospitalMonocytes Auto (Bld) [#/Vol] Ordered By: Hanane Rondon on 47-25-1040Nzeryzxmg (Bld) [#/Vol]0.6 10*3/uL 0.0-0.8[facility] HospitalMonocytes/100 WBC Auto (Bld)Ordered By: Hanane Rondon on 46-18-7412Edyapnbkk/100 WBC (Bld)6.1 %.[facility] HospitalNeutrophils Auto (Bld) [#/Vol]Ordered By: Hanane Rondon on 44-49-6878Bjljeqthsie (Bld) [#/Vol]4.5 10*3/uL1.8-7.7FKindred Hospital LimaNeutrophils/100 WBC Auto (Bld)Ordered By: Hanane Rondon on 09-21-2022 Neutrophils/100 WBC (Bld)47.5 %.[facility] HospitalNo Panel InformationOrdered By: Hanane Rondon on 47-00-7366Bvhusbhtf GFR ()> 60 mL/MinMercy Health St. Elizabeth Youngstown HospitalComment on above:GFR estimated reference range: According to KDOQI guidelines, <60 ml/min/1.73m2 is sufficient todiagnose a patient with chronic kidney disease.Pharmacy Creatinine Clearance (Xnak890.43[facility] HospitalPlatelet adequacy [Presence] in Blood by Light microscopyOrdered By: Hanane Rondon on 09-21-2022 Platelets LM Ql (Bld)NormalNormalMercy Health St. Elizabeth Youngstown HospitalPlatelet mean volume Auto (Bld) [Entitic vol]Ordered By: Hanane Rondon on 20-57-8734Jywqnshy mean volume (Bld) [Entitic vol]8.3 fL6.3-10.7FKindred Hospital Lima Platelet morphology finding [Identifier] in BloodOrdered By: Hanane Rondon on 61-00-0558Uknprghu morphology finding Nom (Bld)NormalNormalMercy Health St. [facility] HospitalPlatelet poor plasma international normalized ratio (INR) by coagulation assay (relatOrdered By: Hanane Rondon on 21-90-2347LMS Coag (PPP) [Relative time]1.0 {INR}[facility] HospitalComment on above:INR Therapeutic Range A) Pre- and Peroperative OAT started two weeks before surgery. NOT HIP SURGERY: 1.5 - 2.5 HIP SURGERY: 2 - 3B) Primary and secondary prevention of venous THROMBOSIS: 2 - 3C) Active venous thrombosis, pulmonary embolismand prevention of recurrent venous thrombosis: 2 - 3D) Prevention of arterial thromboembolismincluding patients with mechanical heart valves: 3 - 4.5Platelets Auto (Bld) [#/Vol]Ordered By: Hanane Rondon on 53-39-8402Jkkprwkse (Bld) [#/Vol]393 10*3/mE613-675NkmfwyhcgMercy Health St. Elizabeth Youngstown HospitalRBC Auto (Bld) [#/Vol] Ordered By: Hanane Rondon on 88-19-0128IBD (Bld) [#/Vol]3.95 10*6/uL3.60-5.[address] [facility] HospitalRB morphologyOrdered By: Hanane Rondon on 30-54-7496YIP morphology finding Nom (Bld)N/AFKindred Hospital Lima Serum or plasma anion gap determinationOrdered By: Hanane Rondon on 09-21-2022 Anion gap [Moles/Vol]13.2 mmol/L6.0-15.0[facility] Centererum or plasma calcium measurement (mass/volume)Ordered By: Hanane Rondon on 72-50-1336Byxjfcb [Mass/Vol]9.1 mg/dL8.2-10.2FKindred Hospital Lima Serum or plasma chloride measurement (moles/volume)Ordered By: Hanane Rondon on 19-47-2741Zgydpoek [Moles/Vol]103 mmol/V12-685JykoqxkwcTrumbull Regional Medical Centererum or plasma creatine kinase MB (CKMB)/total creatine kinase (CK) ratio by calculaOrdered By: Hanane Rondon on 99-57-1100YQ.MB Calc [Catalytic fraction]1.2 %0.00-2.50[facility] Centererum or plasma creatine kinase MB measurement (mass/volume)Ordered By: Hanane Rondon on 09-21-2022 CK.MB [Mass/Vol]1.0 ng/mL0.6-6.3FCleveland Clinic Medina Hospitalerum or plasma glucose measurement (mass/volume)Ordered By: Hanane Rondon on 09-21-2022 Glucose [Mass/Vol]148 mg/jW33-540HmwqfanjvMercy Health St. Elizabeth Youngstown HospitalComment on above:ADA recommended reference rangeRandom Glucose Reference Range is dependent on time and content of last meal. Glucose of more than 200 mg/dL in a nonstressed, ambulatory subject supports the diagnosisof Diabetes Mellitus.Serum or plasma potassium measurement (moles/volume)Ordered By: Hanane Rondon on 11-02-0272Ghcakvjdh [Moles/Vol]3.2 mmol/L3.5-5.1FCleveland Clinic Medina Hospitalerum or plasma sodium measurement (moles/volume)Ordered By: Hanane Rondon on 85-20-0196Qrydpv [Moles/Vol]136 mmol/U197-885HjtzqnghgTrumbull Regional Medical Centererum or plasma total carbon dioxide measurement (moles/volume) Ordered By: Hanane Rondon on 03-40-7746OZ8 [Moles/Vol]23.0 mmol/L22.0-30.0 [facility] Centererum or plasma urea nitrogen measurement (mass/volume)Ordered By: Hanane Rondon on 59-76-0655Duzr nitrogen [Mass/Vol]9 mg/dL08-17[facility] HospitalTroponin I.cardiac [Mass/volume] in Serum or Plasma by High sensitivity methodOrdered By: Hanane Rondon on 38-29-3695Cgfflfeh I.cardiac High sensitivity method [Mass/Vol]< 3 pg/mL0-[address] [facility] HospitalUrine culture routineOrdered By: Ga Marques on 72-74-1500Dykgaidt identified Cx Nom (U)[address] Elizabeth [facility]stown HospitalAutomated erythrocytes count in urine sediment (number/area)Ordered By: Ga Marques on 47-68-3443HMM Auto (Urine sed) [#/Area]3-4 [HPF]0-4FKindred Hospital LimaAutomated leukocytes count in urine sediment (number/area)Ordered By: Ga Marques on 92-83-0246QYJ Auto (Urine sed) [#/Area] 3-4 [HPF]0-4FKindred Hospital LimaAutomated urine hyaline casts count (number/volume)Ordered By: Ga Marques on 07-74-5851Cfjxyxh casts Auto (U) [#/Vol]None seen [LPF]0-1FKindred Hospital LimaBilirubin Test strip Ql (U)Ordered By: Ga Marques on 16-85-8974Hqzuabtvj Ql (U)NegativeNegative [facility] HospitalCasts typing in urine sediment by light microscopyOrdered By: Ga Marques on 35-68-9775Ghxkz LM Nom (Urine sed)None seen [LPF]None [facility] DaytonColor Auto (U)Ordered By: Ga Marques on 66-14-5834Bmzhn (U)YellowYellowMercy Health St. [facility] Ketones Auto test strip (U) [Mass/Vol]Ordered By: Ga Marques on 08-15-2022 Ketones (U) [Mass/Vol]TraceNegativeMercy Health St. Elizabeth Youngstown HospitalNitrite Test strip Ql (U)Ordered By: Ga Marques on 24-89-7043Qeurefz Ql (U)Negative NegativeMercy Health St. Elizabeth Youngstown HospitalProtein Auto test strip (U) [Mass/Vol] Ordered By: Ga Marques on 57-05-3932Doaqijz (U) [Mass/Vol]Trace mg/dLNegative [facility] Centerpecific gravity Auto test strip (U) [Rel density]Ordered By: Ga Marques on 50-20-0032Fsxpflby gravity (U) [Rel density] 1.0251.001-1.030[facility] Medical Centerquamous epithelial cells detection in urine sediment by light microscopyOrdered By: Ga Marques on 43-23-7790Iiuqlrmuvw cells.squamous LM Ql (Urine sed)5-9 [HPF]0-2FKindred Hospital LimaUrine bacteria detection by automated methodOrdered By: Ga Marques on 25-24-2404Ptpuhyff Auto Ql (U)None seenNone [facility] DaytonUrine clarity by refractometry automatedOrdered By: Ga Marques on 27-33-4720Epmykcc Refractometry automated (U)ClearClearFKindred Hospital LimaUrine glucose measurement by automated test strip (mass/volume)Ordered By: Ga Marques on 80-48-4229Pkrcipb Auto test strip (U) [Mass/Vol]Normal mg/dLNormSalem City HospitalUrine hemoglobin detection by automated test stripOrdered By: Ga Marques on 08-15-2022 Hemoglobin Auto test strip Ql (U)NegativeNegativeMercy Health St. Elizabeth Youngstown HospitalUrine leukocyte esterase detection by automated test stripOrdered By: Ga Marques on 58-28-4797Pophtrpko esterase Auto test strip Ql (U)Negative NegativeMercy Health St. Elizabeth Youngstown HospitalUrobilinogen Auto test strip (U) [Mass/Vol]Ordered By: Ga Marques on 09-82-0993Lxspapufrsda (U) [Mass/Vol] Normal mg/dLNoSouthview Medical CenterpH Auto test strip (U)Ordered By: Ga Marques on 96-89-5115bR (U)5.5 [pH]5.0-9.0[facility] HospitalAlbumin [Mass/volume] in Serum or PlasmaOrdered By: Ga Marques on 65-62-8911Kppzuwt [Mass/Vol]3.3 g/dL3.2-5.5FKindred Hospital Lima Basophils Auto (Bld) [#/Vol]Ordered By: Ga Marques on 96-93-1664Pmgofvtbf (Bld) [#/Vol]0.1 10*3/uL0.0-0.2FKindred Hospital LimaBasophils/100 WBC Auto (Bld)Ordered By: Ga Marques on 96-78-2467Usdnlixof/100 WBC (Bld)0.8 % .[facility] HospitalBlood hemoglobin measurement (mass/volume) Ordered By: Ga Marques on 79-61-2425Lpuruqsxjo (Bld) [Mass/Vol]12.5 g/dL 11.8-15.4FKindred Hospital LimaBlood leukocytes automated count (number/volume)Ordered By: Ga Marques on 46-68-4212QMJ (Bld) [#/Vol]9.3 10*3/uL4.5-11.0[facility] HospitalCholesterol [Mass/volume] in Serum or PlasmaOrdered By: Ga Marques on 17-57-7689Raoyzarxbhg [Mass/Vol]189 mg/mU642-151UcelqqpnwMercy Health St. Elizabeth Young[facility] HospitalComment on above:Chol less than 200 mg/dl low risk Chol 201-239 mg/dl borderline risk Chol 240 mg/dl and greater high riskChol less than 200 mg/dl low riskChol 201- 239 mg/dl borderline riskChol 240 mg/dl and greater high riskCholesterol in LDL Calc [Mass/Vol]Ordered By: Ga Marques on 85-45-8453Kjsthzarytd in LDL [Mass/Vol]143 mg/dL0-100[facility] HospitalComment on above:LDL ATP III CLASSIFICATION LDL less than 100 mg/dL Optimal LDL 100-129 mg/dL Near or above optimal LDL 130-159 mg/dL Borderline high LDL 160-189 mg/dL High LDL greater than 189 mg/dL Very highLDL ATP III CLASSIFICATIONLDL less than 100 mg/dL OptimalLDL 100-129 mg/dL Near or above cclfmatMPQ231-711 mg/dL Borderline highLDL 160-189 mg/dL HighLDL greater than 189 mg/dL Very highCholesterol in VLDL Calc [Mass/Vol]Ordered By: Ga Marques on 24-93-8202Cshixyaexum in VLDL [Mass/Vol]15 mg/dLMercy Health St. Elizabeth [facility] HospitalCreatinine and Glomerular filtration rate.predicted panel (S/P/Bld)Ordered By: Ga Marques on 07-21-2022 Creatinine [Mass/Vol]0.58 mg/dL0.44-1.03[facility] Eosinophils Auto (Bld) [#/Vol]Ordered By: Ga Marques on 49-25-2818Deqskvbiwez (Bld) [#/Vol]0.2 10*3/uL0.0-0.45[facility] HospitalEosinophils/100 WBC Auto (Bld)Ordered By: Ga Marques on 35-80-7677Jispwetsfyo/100 WBC (Bld) 2.1 %.[facility] HospitalErythrocyte distribution width Auto (RBC) [Ratio]Ordered By: Ga Marques on 12-04-8790Hbhpymevmls distribution width (RBC) [Ratio]14.7 %11.9-15.3FKindred Hospital LimaEstimated glomerular filtration rate (GFR) non- AmericanOrdered By: Ga Marques on 68-52-4823WEB/1.73 sq M.predicted among non-blacks MDRD (S/P/Bld) [Vol rate/Area]> 60 mL/MinMercy Health [address] Elizabeth [facility] HospitalGlobulin Calc (S) [Mass/Vol]Ordered By: Ga Marques on 61-31-4913Udayqbsv (S) [Mass/Vol]3.4 g/dL [facility] HospitalHematocrit Auto (Bld) [Volume fraction]Ordered By: Ga Marques on 11-40-3725Hgdbgqrdiw (Bld) [Volume fraction]38.0 %34.0-46.[address] [facility] HospitalLaboratory - Hematology and Cell countsOrdered By: Ga Marques on 94-11-6660Dvdpweoxr RBC/100 WBC (Bld) [Ratio]0.1 %0-0.[address] [facility] HospitalLymphocytes Auto (Bld) [#/Vol]Ordered By: Ga Marques on 65-22-6265Lnixyujkoqo (Bld) [#/Vol]4.3 10*3/uL1.00-4.8[facility] HospitalLymphocytes/100 WBC Auto (Bld)Ordered By: Ga Marques on 63-93-6058Rawaxzjbsqh/100 WBC (Bld)46.6 %.[facility] HospitalH Auto (RBC) [Entitic mass]Ordered By: Ga Marques on 98-56-4182NWX (RBC) [Entitic mass]29.3 pg24.7-34.3FKindred Hospital LimaMCHC Auto (RBC) [Mass/Vol]Ordered By: Ga Marques on 21-39-0898EDUI (RBC) [Mass/Vol]32.9 g/dL 32.0-35.0[facility] HospitalMCV Auto (RBC) [Entitic vol]Ordered By: Ga Marques on 61-67-6591WHT (RBC) [Entitic vol]89.1 rH24-141UxhpqtpqiMercy Health St. Elizabeth [facility] HospitalMonocytes Auto (Bld) [#/Vol]Ordered By: Ga Marques on 12-20-0679Ackfoacma (Bld) [#/Vol]0.6 10*3/uL0.0-0.8[facility] HospitalMonocytes/100 WBC Auto (Bld)Ordered By: Ga Marques on 07-21-2022 Monocytes/100 WBC (Bld)6.1 %.[facility] HospitalNeutrophils Auto (Bld) [#/Vol]Ordered By: Ga Marques on 19-98-1306Mutqczasyku (Bld) [#/Vol]4.1 10*3/uL1.8-7.7FKindred Hospital LimaNeutrophils/100 WBC Auto (Bld) Ordered By: Ga Marques on 48-33-8487Xeamhajrfzr/100 WBC (Bld)44.4 %.[facility] HospitalNo Panel InformationOrdered By: Ga Marques on 50-07-1518Sfbkwayuj GFR ()> 60 mL/MinMercy Health St. Elizabeth Young[facility] HospitalComment on above:GFR estimated reference range: According to KDOQI guidelines, <60 ml/min/1.73m2 is sufficient todiagnose a patient with chronic kidney disease.Pharmacy Creatinine Clearance (ChemN/[facility] HospitalPlatelet mean volume Auto (Bld) [Entitic vol]Ordered By: Ga Marques on 39-12-1484Spqwzsmy mean volume (Bld) [Entitic vol]8.3 fL6.3-10.7FKindred Hospital LimaPlatelets Auto (Bld) [#/Vol]Ordered By: Ga Marques on 78-12-3170Azfkazqer (Bld) [#/Vol]414 10*3/nC048-166IorglpuatMercy Health St. Elizabeth [facility] HospitalProtein [Mass/volume] in Serum or PlasmaOrdered By: Ga Marques on 65-79-3295Kdnyodp [Mass/Vol]6.7 g/dL6.1-7.9[facility] HospitalRBC Auto (Bld) [#/Vol]Ordered By: Ga Marques on 89-78-7463XHH (Bld) [#/Vol]4.27 10*6/uL3.60-5.00[facility] Centererum or plasma alanine aminotransferase measurement without P-5'-P (enzymatic activiOrdered By: Ga Marques on 00-87-5525SXV No additional P-5'-P [Catalytic activity/Vol]20 U/L10-60 [facility] Centererum or plasma albumin/globulin mass ratio Ordered By: Ga Marques on 90-57-2114Pbgfbtg/Globulin [Mass ratio]1.0 {ratio} [facility] Centererum or plasma alkaline phosphatase measurement (enzymatic activity/volume)Ordered By: Ga Marques on 27-49-6645DVP [Catalytic activity/Vol]69 U/R19-71LlthkcmpfTrumbull Regional Medical Centererum or plasma aspartate aminotransferase measurement (enzymatic activity/volume)Ordered By: Ga Marques on 72-67-5944UHM [Catalytic activity/Vol]20 U/N74-60YdrdqicraTrumbull Regional Medical Centererum or plasma calcium measurement (mass/volume)Ordered By: Ga Marques on 99-39-2053Ndalmos [Mass/Vol]8.8 mg/dL8.2-10.2FCleveland Clinic Medina Hospitalerum or plasma chloride measurement (moles/volume) Ordered By: Ga Marques on 87-90-6316Qchvjpah [Moles/Vol]107 mmol/L95-114 [facility] Centererum or plasma glucose measurement (mass/volume)Ordered By: Ga Marques on 91-83-4541Vmcgsim [Mass/Vol]95 mg/dL 70-100[facility] HospitalComment on above:ADA recommended reference range Random Glucose Reference Range is dependent on time and content of last meal. Glucose of more than 200 mg/dL in a nonstressed, ambulatory subject supports the diagnosis of Diabetes Mellitus.ADA recommended reference rangeRandom Glucose Reference Range is dependent on time and content of last meal. Glucose of more than 200 mg/dL in a nonstressed, ambulatory subject supports the diagnosisof Diabetes Mellitus.Serum or plasma high density lipoprotein (HDL) cholesterol measurementOrdered By: Ga Marques on 28-55-6269Prxsqwxnllw in HDL [Mass/Vol]31 mg/dU68-57NarvjyseeMercy Health St. Elizabeth Youngstown HospitalComment on above:HDL CHOL ATP-III CLASSIFICATION Cardiovascular Risk HDL > or equal to 60 mg/dL LOW HDL < 40 mg/dL HIGHHDL CHOL ATP-III CLASSIFICATION Cardiovascular RiskHDL > or equal to 60 mg/dL LOWHDL < 40 mg/dL HIGHSerum or plasma potassium measurement (moles/volume)Ordered By: Ga Marques on 53-18-1901Ebystfuxq [Moles/Vol]3.2 mmol/L3.5-5.1FCleveland Clinic Medina Hospitalerum or plasma sodium measurement (moles/volume)Ordered By: Ga Marques on 99-60-0370Hbqmbm [Moles/Vol]139 mmol/M189-115EqjshurpeTrumbull Regional Medical Centererum or plasma total bilirubin measurement (mass/volume)Ordered By: Ga Marques on 07-56-1573Uduhcivmz [Mass/Vol]0.3 mg/dL0.3-1.2FCleveland Clinic Medina Hospitalerum or plasma total carbon dioxide measurement (moles/volume)Ordered By: Ga Marques on 07-21-2022 CO2 [Moles/Vol]23.3 mmol/L22.0-30.0[facility] Centererum or plasma total cholesterol/high density lipoprotein (HDL) cholesterol mass rat Ordered By: Ga Marques on 92-40-1516Vbeovgxjwpv.total/Cholesterol in HDL [Mass ratio]6.1 {ratio}<5.0[facility] Centererum or plasma urea nitrogen measurement (mass/volume)Ordered By: Ga Marques on 58-81-9634Brvr nitrogen [Mass/Vol]5 mg/dL9-23[facility] HospitalTS DL <= 0.005 mIU/L QnOrdered By: Ga Marques on 03-41-1591RBE Qn1.11 m[IU]/L0.45-5.[address] [facility] HospitalTriglyceride [Mass/volume] in Serum or Plasma Ordered By: Ga Marques on 55-78-5759Qdrzhdrthpzd [Mass/Vol]77 mg/tS18-[address] [facility] HospitalComment on above:TRIG ATP III CLASSIFICATION TRIG less than 150 mg/dL Normal TRIG 150-199 mg/dL Borderline high TRIG 200-500 mg/dL High TRIG greater than 500 mg/dL Very high Standard traceable to the Center for Disease Conrtrol and Prevention (CDC) test method.TRIG ATP III CLASSIFICATIONTRIG less than 150 mg/dL NormalTRIG 150-199 mg/dL Borderline highTRIG 200-500 mg/dL High TRIG greater than 500 mg/dL Very highStandard traceable to the Center for Disease Conrtrol and Prevention (CDC) test method.Glucose mean value [Mass/volume] in Blood Estimated from glycated hemoglobinOrdered By: Rigoberto Montano on 55-13-7676Kgjfpju glucose Estimated from glycated hemoglobin (Bld) [Mass/Vol]200 mg/dLMercy Health St. [facility] Hemoglobin A1c percentageOrdered By: Rigoberto Montano on 77-44-0990KwM9q (Bld) [Mass fraction]8.6 %4.3-5.6FKindred Hospital LimaComment on above:Increased risk for diabetes: 5.7 - 6.4 diabetes: >6.4 glycemic control for adults with diabetes: <7.0Increased risk for diabetes: 5.7 - 6.4diabetes: >6.4glycemic control for adults with diabetes: <7.0Glucose Glucometer (BldC) [Mass/Vol]Ordered By: Derek Viera on 05-40-7527Jqrkqyl [Mass/Vol]129 mg/dLMercy Health St. Elizabeth Youngstown HospitalComment on above:Random Glucose Reference Range is dependent on time and content of last meal. Glucose of more than 200 mg/dL in a nonstressed, ambulatory subject supports the diagnosis of Diabetes Mellitus.HCG ( test) IA.rapid Ql (U)Ordered By: Prateek Lee on 01-72-0536SSC ( test) Ql (U)NegativeMercy Health St. Elizabeth [facility] HospitalCOVID-19 Positive/NegativeOrdered By: Derek Viera on 96-72-0402WKVH-CoV-2 (COVID-19) N gene CODY+probe Ql (Resp)NegativeNegative [facility] HospitalComment on above:Testing for SARS-CoV-2 by RT-PCR This test was developed and its performance characteristics determined by [employer] ([employer]) and validated at the [facility]. This test has not been FDA [...] of time the declaration that circumstances exist ju stifying the authorization of the emergency use of in vitro diagnostic tests for detection of SARS-CoV-2 virus and/or diagnosis of COVID-19 infection under section 564(b)(1) of the Act, 21 U.S.C. 360bbb-3(b)(1), unless the authorization is terminated or revoked sooner.Basophils Auto (Bld) [#/Vol]Ordered By: Derek Viera on 12-39-0074Zcgqdlvab (Bld) [#/Vol]0.0 10*3/uL0.0-0.2FKindred Hospital LimaBasophils/100 WBC Auto (Bld)Ordered By: Derek Viera on 17-53-8020Qlkapsxlb/100 WBC (Bld)0.7 %.[facility] HospitalBlood hemoglobin measurement (mass/volume)Ordered By: eDrek Viera on 05-11-2022 Hemoglobin (Bld) [Mass/Vol]12.1 g/dL11.8-15.4FKindred Hospital Lima Blood leukocytes automated count (number/volume)Ordered By: Derek Viera on 09-36-5539SAY (Bld) [#/Vol]6.8 10*3/uL4.5-11.0[facility] Creatinine and Glomerular filtration rate.predicted panel (S/P/Bld)Ordered By: Derek Viera on 01-48-3357Vnqgnxehjt [Mass/Vol]0.62 mg/dL0.44-1.03[facility] HospitalEosinophils Auto (Bld) [#/Vol]Ordered By: Derek Viera on 97-55-4627Htuptimwoom (Bld) [#/Vol]0.2 10*3/uL0.0-0.45[facility] HospitalEosinophils/100 WBC Auto (Bld)Ordered By: Derek Viera on 99-19-2811Qvdaqsqzwqr/100 WBC (Bld)2.4 %.[facility] Erythrocyte distribution width Auto (RBC) [Ratio]Ordered By: Derek Viera on 79-82-0501Rwegsatqiyh distribution width (RBC) [Ratio]15.5 %11.9-15.3FKindred Hospital LimaEstimated glomerular filtration rate (GFR) non- AmericanOrdered By: Derek Viera on 73-81-2707WBC/1.73 sq M.predicted among non-blacks MDRD (S/P/Bld) [Vol rate/Area]> 60 mL/MinMercy Health St. Elizabeth [facility] HospitalHematocrit Auto (Bld) [Volume fraction]Ordered By: Derek Viera on 53-03-7493Bfiscdbabn (Bld) [Volume fraction]36.4 %34.0-46.4FKindred Hospital LimaLaboratory - Hematology and Cell countsOrdered By: Derek Viera on 81-11-2110Tlmllshdo RBC/100 WBC (Bld) [Ratio]0.1 %0-0.5FKindred Hospital LimaLymphocytes Auto (Bld) [#/Vol]Ordered By: Derek Viera on 70-63-6068Tchwpbqgpum (Bld) [#/Vol]2.8 10*3/uL1.00-4.8[facility] HospitalLymphocytes/100 WBC Auto (Bld)Ordered By: Derek Viera on 05-11-2022 Lymphocytes/100 WBC (Bld)41.9 %.[facility] Auto (RBC) [Entitic mass]Ordered By: Derek Viera on 20-49-8276CXJ (RBC) [Entitic mass] 29.5 pg24.7-34.3FDoctors HospitalHC Auto (RBC) [Mass/Vol] Ordered By: Derek Viera on 05-13-2170LSFD (RBC) [Mass/Vol]33.2 g/dL32.0-35.[address] [facility] HospitalMCV Auto (RBC) [Entitic vol]Ordered By: Derek Viera on 51-37-8939WSV (RBC) [Entitic vol]88.8 qX55-668MoihvqxwfMercy Health St. Elizabeth [facility] HospitalMonocytes Auto (Bld) [#/Vol]Ordered By: Derek Viera on 87-85-3058Ggvmvboyq (Bld) [#/Vol]0.5 10*3/uL0.0-0.8[facility] HospitalMonocytes/100 WBC Auto (Bld)Ordered By: Derek Viera on 05-11-2022 Monocytes/100 WBC (Bld)7.7 %.[facility] HospitalNeutrophils Auto (Bld) [#/Vol]Ordered By: Derek Viera on 37-73-0548Qpqjdmoraqe (Bld) [#/Vol]3.2 10*3/uL1.8-7.7FKindred Hospital LimaNeutrophils/100 WBC Auto (Bld) Ordered By: Derek Viera on 11-14-6487Zqvogvxipcv/100 WBC (Bld)47.3 %.[facility] HospitalNo Panel InformationOrdered By: Derek Viera on 62-78-9576Zkmaqniki GFR ()> 60 mL/MinMercy Health St. Elizabeth Young[facility] HospitalComment on above:GFR estimated reference range: According to KDOQI guidelines, <60 ml/min/1.73m2 is sufficient todiagnose a patient with chronic kidney disease.Pharmacy Creatinine Clearance (ChemN/[facility] HospitalPlatelet mean volume Auto (Bld) [Entitic vol]Ordered By: Derek Viera on 64-69-6776Cfjegcse mean volume (Bld) [Entitic vol]8.2 fL6.3-10.7FKindred Hospital LimaPlatelets Auto (Bld) [#/Vol]Ordered By: Derek Viera on 05-72-8933Pswdbzmwc (Bld) [#/Vol]408 10*3/cZ982-568VqzmxsphoMercy Health St. [facility] HospitalRBC Auto (Bld) [#/Vol]Ordered By: Derek Viera on 10-75-9522OYM (Bld) [#/Vol]4.10 10*6/uL3.60-5.00[facility] Centererum or plasma calcium measurement (mass/volume)Ordered By: Derek Viera on 62-04-2014Vetrjjm [Mass/Vol]9.4 mg/dL8.2-10.2FCleveland Clinic Medina Hospitalerum or plasma chloride measurement (moles/volume)Ordered By: Derek Viera on 05-11-2022 Chloride [Moles/Vol]104 mmol/V68-807SzefivbjhTrumbull Regional Medical Centererum or plasma glucose measurement (mass/volume)Ordered By: Derek Viera on 05-11-2022 Glucose [Mass/Vol]148 mg/vV31-877DeninjusxMercy Health St. Elizabeth [facility] HospitalComment on above:ADA recommended reference range Random Glucose Reference Range is dependent on time and content of last meal. Glucose of more than 200 mg/dL in a nonstressed, ambulatory subject supports the diagnosis of Diabetes Mellitus.Serum or plasma potassium measurement (moles/volume)Ordered By: Derek Viera on 50-79-5110Ulvliumhd [Moles/Vol]4.0 mmol/L3.5-5.1FCleveland Clinic Medina Hospitalerum or plasma sodium measurement (moles/volume)Ordered By: Derek Viera on 12-26-0178Pyzlkh [Moles/Vol]136 mmol/C305-678CebqafcajTrumbull Regional Medical Centererum or plasma total carbon dioxide measurement (moles/volume)Ordered By: Derek Viera on 48-85-0790GX7 [Moles/Vol]19.6 mmol/L22.0-30.0[facility] Centererum or plasma urea nitrogen measurement (mass/volume)Ordered By: Derek Viera on 05-11-2022 Urea nitrogen [Mass/Vol]5 mg/dL9-23[facility] HospitalAlbumin [Mass/volume] in Serum or PlasmaOrdered By: Ga Marques on 68-83-2328Cpqcumm [Mass/Vol]3.4 g/dL3.2-5.5FKindred Hospital LimaBasophils Auto (Bld) [#/Vol]Ordered By: Ga Marques on 57-29-7720Pgtedcbfs (Bld) [#/Vol]0.2 10*3/uL 0.0-0.2FKindred Hospital LimaBasophils/100 WBC Auto (Bld)Ordered By: Ga Marques on 26-64-0202Kcgxxldhd/100 WBC (Bld)1.6 %[facility] HospitalBlood hemoglobin measurement (mass/volume)Ordered By: Ga Marques on 28-33-5132Rbetbzzhfy (Bld) [Mass/Vol]12.7 g/dL11.8-15.4FKindred Hospital LimaBlood leukocytes automated count (number/volume)Ordered By: Ga Marques on 28-77-7514NQM (Bld) [#/Vol]10.9 10*3/uL4.5-11.0[facility] HospitalCholesterol [Mass/volume] in Serum or PlasmaOrdered By: Ga Marques on 31-37-3317Apxmyqtyern [Mass/Vol]194 mg/eA200-426NjrnjmhyaMercy Health St. Elizabeth [facility] HospitalComment on above:Chol less than 200 mg/dl low riskChol 201-239 mg/dl borderline riskChol 240 mg/dl and greater high riskChol less than 200 mg/dl low risk Chol 201-239 mg/dl borderline risk Chol 240 mg/dl and greater high riskCholesterol in LDL Calc [Mass/Vol]Ordered By: Ga Marques on 23-38-8872Cevzwrbtaln in LDL [Mass/Vol]132 mg/dL0-[address] [facility] HospitalComment on above:LDL ATP III CLASSIFICATIONLDL less than 100 mg/dL OptimalLDL 100-129 mg/dL Near or above derdpqdNPJ998-660 mg/dL Borderline highLDL 160-189 mg/dL HighLDL greater than 189 mg/dL Very high LDL ATP III CLASSIFICATION LDL less than 100 mg/dL Optimal LDL 100-129 mg/dL Near or above optimal LDL 130-159 mg/dL Borderline high LDL 160-189 mg/dL High LDL greater than 189 mg/dL Very highCholesterol in VLDL Calc [Mass/Vol]Ordered By: Ga Marques on 64-78-4448Lgvqrdefxiz in VLDL [Mass/Vol]16 mg/dLMercy Health St. [facility] HospitalCreatinine [Mass/volume] in UrineOrdered By: Ga Marques on 81-26-7897Trvbqwtogq (U) [Mass/Vol]122.2 mg/dLMercy Health St. Elizabeth Young[facility] HospitalComment on above:No reference range establishedCreatinine and Glomerular filtration rate.predicted panel (S/P/Bld)Ordered By: Ga Marques on 03-17-2022 Creatinine [Mass/Vol]0.59 mg/dL0.44-1.03[facility] Eosinophils Auto (Bld) [#/Vol]Ordered By: Ga Marques on 25-59-3938Wzxnxqkadeo (Bld) [#/Vol]0.2 10*3/uL0.0-0.45[facility] HospitalEosinophils/100 WBC Auto (Bld)Ordered By: Ga Marques on 63-00-1118Dcxpavfeppr/100 WBC (Bld) 1.5 %[facility] HospitalErythrocyte distribution width Auto (RBC) [Ratio]Ordered By: Ga Marques on 96-56-5767Rtphcckbrag distribution width (RBC) [Ratio]16.0 %11.9-15.3FKindred Hospital LimaEstimated glomerular filtration rate (GFR) non- AmericanOrdered By: Ga Marques on 48-47-0591XZK/1.73 sq M.predicted among non-blacks MDRD (S/P/Bld) [Vol rate/Area]> 60 mL/MinMercy Health St. Elizabeth [facility] HospitalGlobulin Calc (S) [Mass/Vol]Ordered By: Ga Marques on 46-33-5895Oyxjofxv (S) [Mass/Vol]3.5 g/dL [facility] HospitalGlucose mean value [Mass/volume] in Blood Estimated from glycated hemoglobinOrdered By: Ga Marques on 56-06-8018Mlpcuzc glucose Estimated from glycated hemoglobin (Bld) [Mass/Vol]163 mg/dLMercy Health St. Elizabeth [facility] HospitalHematocrit Auto (Bld) [Volume fraction]Ordered By: Ga Marques on 20-32-6410Tubkukwvej (Bld) [Volume fraction]38.4 %34.0-46.4FKindred Hospital LimaHemoglobin A1c percentageOrdered By: Ga Marques on 44-59-3793JmL6c (Bld) [Mass fraction]7.3 %4.3-5.6FKindred Hospital LimaComment on above:Increased risk for diabetes: 5.7 - 6.4 diabetes: >6.4 glycemic control for adults with diabetes: <7.0Laboratory - Hematology and Cell countsOrdered By: Ga Marques on 79-54-8189Wyqamgtdm RBC/100 WBC (Bld) [Ratio] 0.1 %0-0.5FKindred Hospital LimaLymphocytes Auto (Bld) [#/Vol]Ordered By: Ga Marques on 79-11-1001Pdqywfmsuga (Bld) [#/Vol]3.2 10*3/uL1.00-4.[address] [facility] HospitalLymphocytes/100 WBC Auto (Bld)Ordered By: Ga Marques on 00-93-8995Scpidokkncb/100 WBC (Bld)29.6 %[facility] HospitalH Auto (RBC) [Entitic mass]Ordered By: Ga Marques on 73-98-6755HKV (RBC) [Entitic mass]29.4 pg24.7-34.3FKindred Hospital LimaMCHC Auto (RBC) [Mass/Vol]Ordered By: Ga Marques on 99-29-7047RNKR (RBC) [Mass/Vol]33.0 g/dL32.0-35.0[facility] HospitalMCV Auto (RBC) [Entitic vol]Ordered By: Ga Marques on 49-08-9231QWR (RBC) [Entitic vol]89.0 fG41-545ThzufnhnhMercy Health St. [facility] HospitalMonocytes Auto (Bld) [#/Vol]Ordered By: Ga Marques on 57-11-3032Zaiwyuusx (Bld) [#/Vol]0.3 10*3/uL0.0-0.8[facility] HospitalMonocytes/100 WBC Auto (Bld)Ordered By: Ga Marques on 68-30-6302Exwuwyhdc/100 WBC (Bld)2.8 %[facility] Neutrophils Auto (Bld) [#/Vol]Ordered By: Ga Marques on 23-44-7276Uxdvsqzzate (Bld) [#/Vol]7.0 10*3/uL1.8-7.7FKindred Hospital LimaNeutrophils/100 WBC Auto (Bld)Ordered By: Ga Marques on 70-87-4439Gbdsesbrozq/100 WBC (Bld) 64.5 %[facility] HospitalNo Panel InformationOrdered By: Ga Marques on 28-40-0137Erpgthzye GFR ()> 60 mL/MinMercy Health St. Elizabeth [facility] HospitalComment on above:GFR estimated reference range: According to KDOQI guidelines, <60 ml/min/1.73m2 is sufficient todiagnose a patient with chronic kidney disease.Pharmacy Creatinine Clearance (ChemN/[facility] HospitalPlatelet mean volume Auto (Bld) [Entitic vol]Ordered By: Ga Marques on 13-23-4158Smczqobv mean volume (Bld) [Entitic vol]8.0 fL6.3-10.[address] [facility] HospitalPlatelets Auto (Bld) [#/Vol]Ordered By: Ga Marques on 42-86-6596Pwkfsvadm (Bld) [#/Vol]416 10*3/vU181-738LrnqzdodoMercy Health St. [facility] HospitalProtein [Mass/volume] in Serum or PlasmaOrdered By: Ga Marques on 71-44-6586Zzcwyfa [Mass/Vol]6.9 g/dL6.1-7.9[facility] RBC Auto (Bld) [#/Vol]Ordered By: Ga Marques on 03-84-7979BLH (Bld) [#/Vol] 4.32 10*6/uL3.60-5.00[facility] Centererum or plasma alanine aminotransferase measurement without P-5'-P (enzymatic activiOrdered By: Ga Marques on 18-63-8920KCR No additional P-5'-P [Catalytic activity/Vol]27 U/L10-60 [facility] Centererum or plasma albumin/globulin mass ratio Ordered By: Ga Marques on 50-31-3706Hjutbyv/Globulin [Mass ratio]1.0 {ratio} [facility] Centererum or plasma alkaline phosphatase measurement (enzymatic activity/volume)Ordered By: Ga Marques on 08-10-5971YAK [Catalytic activity/Vol]78 U/S39-10RvrptckkrTrumbull Regional Medical Centererum or plasma aspartate aminotransferase measurement (enzymatic activity/volume)Ordered By: Ga Marques on 91-47-7288HCW [Catalytic activity/Vol]24 U/W22-50ThirvatnqTrumbull Regional Medical Centererum or plasma calcium measurement (mass/volume)Ordered By: Ga Marques on 49-18-4639Wrrihrr [Mass/Vol]8.7 mg/dL8.2-10.2FCleveland Clinic Medina Hospitalerum or plasma chloride measurement (moles/volume) Ordered By: Ga Marques on 18-96-3835Xizwpspe [Moles/Vol]103 mmol/L95-114 [facility] Centererum or plasma glucose measurement (mass/volume)Ordered By: Ga Marques on 51-76-6056Okcgtiy [Mass/Vol]139 mg/dL 70-100[facility] HospitalComment on above:ADA recommended reference rangeRandom Glucose Reference Range is dependent on time and content of last meal. Glucose of more than 200 mg/dL in a nonstressed, ambulatory subject supports the diagnosisof Diabetes Mellitus.ADA recommended reference range Random Glucose Reference Range is dependent on time and content of last meal. Glucose of more than 200 mg/dL in a nonstressed, ambulatory subject supports the diagnosis of Diabetes Mellitus.Serum or plasma high density lipoprotein (HDL) cholesterol measurementOrdered By: Ga Marques on 58-99-4056Nbbemvzultu in HDL [Mass/Vol]45 mg/tE87-86JgfsihdgdMercy Health St. Elizabeth Youngstown HospitalComment on above:HDL CHOL ATP-III CLASSIFICATION Cardiovascular RiskHDL > or equal to 60 mg/dL LOWHDL < 40 mg/dL HIGHHDL CHOL ATP-III CLASSIFICATION Cardiovascular Risk HDL > or equal to 60 mg/dL LOW HDL < 40 mg/dL HIGHSerum or plasma potassium measurement (moles/volume)Ordered By: Ga Marques on 81-67-4399Lqoqjgvts [Moles/Vol]3.5 mmol/L3.5-5.1FCleveland Clinic Medina Hospitalerum or plasma sodium measurement (moles/volume)Ordered By: Ga Marques on 32-01-4868Ixkdar [Moles/Vol]135 mmol/D813-618KverenytxTrumbull Regional Medical Centererum or plasma total bilirubin measurement (mass/volume) Ordered By: Ga Marques on 80-56-0873Imodcxcco [Mass/Vol]0.4 mg/dL0.3-1.2 [facility] Centererum or plasma total carbon dioxide measurement (moles/volume)Ordered By: Ga Marques on 45-49-1743RI0 [Moles/Vol] 20.7 mmol/L22.0-30.0[facility] Centererum or plasma total cholesterol/high density lipoprotein (HDL) cholesterol mass ratOrdered By: Ga Marques on 02-86-4401Vyofdlcarlj.total/Cholesterol in HDL [Mass ratio]4.3 {ratio}[facility] Centererum or plasma urea nitrogen measurement (mass/volume)Ordered By: Ga Marques on 21-31-6875Nayy nitrogen [Mass/Vol]8 mg/dL9-[facility] HospitalTSH DL <= 0.005 mIU/L Qn Ordered By: Ga Marques on 86-56-1738DEP Qn1.19 m[IU]/L0.45-5.33[facility] HospitalTriglyceride [Mass/volume] in Serum or PlasmaOrdered By: Ga Marques on 40-46-6186Aqqjhxdxhzrw [Mass/Vol]84 mg/iB58-892YsqnbiymlMercy Health St. Elizabeth Youngstown HospitalComment on above:TRIG ATP III CLASSIFICATIONTRIG less than 150 mg/dL NormalTRIG 150-199 mg/dL Borderline highTRIG 200-500 mg/dL High TRIG greater than 500 mg/dL Very highStandard traceable to the Center for Disease Conrtrol and Prevention (CDC) test method.TRIG ATP III CLASSIFICATION TRIG less than 150 mg/dL Normal TRIG 150-199 mg/dL Borderline high TRIG 200-500 mg/dL High TRIG greater than 500 mg/dL Very high Standard traceable to the Center for Disease Conrtrol and Prevention (CDC) test method.Urine microalbumin measurement with detection limit of 20 mg/L or less (mass/volume)Ordered By: Ga Marques on 70-06-3085Vunhhbo DL <= 20 mg/L (U) [Mass/Vol]11.7 mg/dL0.0-1.8[facility] HospitalUrine microalbumin/creatinine mass ratioOrdered By: Ga Marques on 03-17-2022 Albumin/Creatinine DL <= 20 mg/L (U) [Mass ratio]95.0 mg/g0.0-30.0[facility] HospitalComment on above:30-300 mg/g indicates an increased risk for diabetic nephropathy. Greater than 300 mg/g is consistent with clinical nephropathy. (Am. J. Kidney Disease 1995, 25:107) Vital Signs Date TimeVital SignValuePerforming SyzwihlaiFalygvep02-33-1108 14:59-0400Body mass index (BMI) [Ratio]34.06 kg/m2Iris FONTENOT Work Phone: [facility] HospitalJnsemwrzmb83-84-7918 14:59-0400Body cwuzkw97.71 kgIris FONTENOT Work Phone: [facility] HospitalEgyibfgxne95-13-0923 14:59-0400Diastolic blood ayniiyqh93 mm[Hg]Iris FONTENOT Work Phone: [facility] HospitalMqiourfxqs17-66-1431 14:59-0400Systolic blood wpbsymlp622 mm[Hg]Iris FONTENOT Work Phone: [facility] HospitalYpbcfqwxfu89-61-5522 17:23-0400Body temperature 37.0Corey Dusty DO Work Phone: [facility]Com[facility] on above: NOTE: Patient Results are Not Corrected for Elqttbxhjcv77-43-5697 16:43-0400Body cabdxqwbdwa29.0 degrees CelsiusGEParkview HealthComment on above:Result Comment: NOTE: Patient Results are Not Corrected for TemperaturePerformed By: #### [id number] #### LIAT Gregory ([id number]) [facility] ([facility]) [id number] [place], [place] 1756309-03-2025 14:52-0400Body ykqipo775.6 cmCorey Dusty DO Work Phone: [facility]09-03-2025 14:52-0400 Body mass index (BMI) [Ratio]32.28 kg/y8Csvku Dusty DO Work Phone: [facility]09-03-2025 14:52-0400 Body atdbnixitsc85.6 [degF]Rigoberto Dusty DO Work Phone: [facility]09-03-2025 14:52-0400 Body lnviax55.72 kgCorey Dusty DO Work Phone: [facility]09-03-2025 14:52-0400 Diastolic blood gsaxiyfc91 mm[Hg]Rigoberto Dusty DO Work Phone: [facility]09-03-2025 14:52-0400 Heart szwa997 /minCorey Dusty DO Work Phone: [facility]09-03-2025 14:52-0400 Respiratory rate16 /minCorey Dusty DO Work Phone: [facility]09-03-2025 14:52-0400 SaO2% (BldA) [Mass fraction]97 %Rigoberto Morenoo DO Work Phone: [facility]09-03-2025 14:52-0400 Systolic blood htfcgsek529 mm[Hg]Rigoebrto Dusty DO Work Phone: [facility]08-04-2025 09:23-0400 Diastolic blood fnahixfm00 mm[Hg]PHYSICIAN [facility]08-04-2025 09:23-0400Heart rate90 /minPHYSICIAN [facility]08-04-2025 09:23-0400Respiratory rate16 /minPHYSICIAN [facility]08-04-2025 09:23-9028YgO7% (BldA) [Mass fraction]100 %PHYSICIAN NO [facility]08-04-2025 09:23-0400Systolic blood oamcdsyn547 mm[Hg]PHYSICIAN [facility]08-04-2025 05:55-0400Body kwxcyx284.[address] [facility]08-04-2025 05:55-0400Body qpverzqcgtq10.1 [degF]PHYSICIAN [facility]08-04-2025 05:55-0400 Body tttuij11.44 kgPHYSICIAN [facility] 06-18-2025 09:50-0400Body bqqgau497.6 Kayleigh Servin MD Work Phone: [facility] HospitalGistxjmqyz96-21-9371 09:50-0400Body mass index (BMI) [Ratio]32.77 kg/v4QxxhfrDerek Servin MD Work Phone: [facility] HospitalOqzmiphrsj04-38-5314 09:50-0400Body xvpuhi32.08 kgDerek Servin MD Work Phone: [facility] HospitalShtlxtoagl72-03-4582 17:28-0400Body .1 cmPHYSICIAN [facility]07-19-2025 17:28-0400Body vjkldtocqcw73.3 [degF]PHYSICIAN NO [facility] 06-12-2025 17:28-0400Body uclwok59.85 kgPHYSICIAN [facility]07-19-2025 17:28-0400Diastolic blood gzvvabgl57 mm[Hg]PHYSICIAN NO [facility]07-19-2025 17:28-0400Heart rate91 /min PHYSICIAN NO [facility]07-19-2025 17:28-0400 Respiratory rate18 /minPHYSICIAN [facility] 06-12-2025 17:28-4902VfE5% (BldA) [Mass fraction]100 %PHYSICIAN NO [facility]07-19-2025 17:28-0400Systolic blood mm[Hg]PHYSICIAN NO [facility]07-09-2025 21:32-0400 Body .1 cmPHYSICIAN [facility] 06-02-2025 21:32-0400Body ybseozqiclq51.7 [degF]PHYSICIAN NO [facility]07-09-2025 21:32-0400Body rcuuth56.15 kgPHYSICIAN [facility]07-09-2025 21:32-0400Diastolic blood zpunpspw09 mm[Hg]PHYSICIAN NO [facility]07-09-2025 21:32-0400Heart rate89 /minPHYSICIAN [facility] 06-02-2025 21:32-0400Respiratory rate18 /minPHYSICIAN [facility]07-09-2025 21:32-4937VnF4% (BldA) [Mass fraction]99 % PHYSICIAN NO [facility]07-09-2025 21:32-0400 Systolic blood spdhbuya315 mm[Hg]PHYSICIAN NO [facility]06-30-2025 11:08-0400Body mass index (BMI) [Ratio]32.2 kg/m2Iris FONTENOT Work Phone: 1(419)483-[address] [place], [place] [address]Qvwfmorvla22-03-7642 11:08-0400Body pioetm00.49 kgIris FONTENOT Work Phone: 1(075)536-[address] [place], [place] [address]Dqvxvpnjqi81-28-5628 11:08-0400Diastolic blood cqovnybq39 mm[Hg]Iris FONTENOT Work Phone: 1(332)839-[address] [place], [place] [address]Mlkxqjtmom39-81-8635 11:08-0400Systolic blood mm[Hg]Iris FONTENOT Work Phone: 1(323)[facility] [place], [place] [address]Febrrgngxz50-74-7615 11:38-0400Body mass index (BMI) [Ratio]32.44 kg/v5Uhpgg Dusty DO Work Phone: 1(843)[facility] [place], [place] [address]Bhcqqbcwor82-87-5237 11:38-0400Body hmzwho69.17 kgCorey Dusty DO Work Phone: 1(247)[facility] [place], [place] [address]Wwfnxxrfrg41-72-4898 11:38-0400Diastolic blood hyoqhtma83 mm[Hg]Rigoberto Morenoo DO Work Phone: 1(855)[facility] [place], [place] [address]Oaqdbtzlxj06-71-3286 11:38-0400Systolic blood imxtjnds254 mm[Hg]Rigoberto Montano DO Work Phone: 1(395)433-[address] [place], [place] [address]Jbjpzyyqxz35-29-7711 12:13-0400Body eiubeh005.[address] [facility]2025 12:13-0400Body nsutkm90.[address] [facility]2025 12:11-0400Body mnoyfdpdwju09.4 [degF][facility]2025 12:11-0400Diastolic blood oqmblpvo17 mm[Hg][facility]2025 12:11-0400Heart rate83 /[facility]2025 12:11-0400Respiratory rate18 /[facility]2025 12:11-3719CcG6% (BldA) [Mass fraction]100 %[facility]2025 12:11-0400 Systolic blood lgsugydf722 mm[Hg][facility]04-29-2025 08:24-0400Body ytsoownxxok13.9 [degF][facility]04-29-2025 08:24-0400Diastolic blood isebjwvn78 mm[Hg][facility] 03-23-2025 08:24-0400Heart rate80 /[facility] 03-23-2025 08:24-0400Respiratory rate16 /[facility] 03-23-2025 08:24-9721XgI9% (BldA) [Mass fraction]99 %[facility]04-29-2025 08:24-0400Systolic blood ppdeozvy913 mm[Hg][facility]04-26-2025 02:33-0400Diastolic blood gliosquq71 mm[Hg][facility]04-26-2025 02:33-0400Heart rate86 /[facility]04-26-2025 02:33-0400Respiratory rate20 /[facility]04-26-2025 02:33-8106PeT8% (BldA) [Mass fraction]99 %[facility]04-26-2025 02:33-0400Systolic blood rcgvocpp485 mm[Hg] [facility]04-26-2025 00:28-0400Body xyoqus894.[address] [facility]04-26-2025 00:28-0400Body ivqtilrxtom30.2 [degF][facility]04-26-2025 00:28-0400Body rlqfze[address] [facility]03-19-2025 14:07-0400Body allunl783.[address] [facility]03-19-2025 14:07-0400Body kaydsygifkm44.7 [degF][facility]03-19-2025 14:07-0400Body kg [facility]03-19-2025 14:07-0400Diastolic blood xkspyggp67 mm[Hg][facility]03-19-2025 14:07-0400Heart rate89 /min [facility]03-19-2025 14:07-0400Respiratory rate18 /min [facility]03-19-2025 14:07-7648InE7% (BldA) [Mass fraction]100 %[facility]03-19-2025 14:07-0400Systolic blood zxewauay716 mm[Hg][facility]02-17-2025 09:38-0500 Body eqkabx967.6 cmKrystal Koehler MD Work Phone: 1(084)821-[address] [place], [place] 0584302-17-2025 09:38-0500 Body mass index (BMI) [Ratio]33.57 kg/k2SxjqdiKrystal Koehler MD Work Phone: 1(759)[address]02-17-2025 09:38-0500 Body efpjem01.35 kgKrystal Koehler MD Work Phone: 1(182)[address]02-17-2025 09:38-0500 Diastolic blood sdbkumwq34 mm[Hg]Krystal Koehler MD Work Phone: 1(748)[address]02-17-2025 09:38-0500 Heart rate84 /minKrystal Koehler MD Work Phone: 1(420)[address] [place], [place] 0584302-17-2025 09:38-0500 Systolic blood arjliuad705 mm[Hg]Krystal Koehler MD Work Phone: 1(316)[address]12-29-2024 13:01-0500 Body momzsxobcvk29.4 [degF][facility]12-29-2024 13:01-0500Diastolic blood lhqivqiu25 mm[Hg][facility] 11-22-2024 13:01-0500Heart rate93 /[facility] 11-22-2024 13:01-0500Respiratory rate20 /[facility] 11-22-2024 13:01-5987KiP6% (BldA) [Mass fraction]99 %[facility]12-29-2024 13:01-0500Systolic blood avkqbufd143 mm[Hg][facility]12-29-2024 12:51-0500Body xfsyhe306.[address] [facility]12-29-2024 12:51-0500Body xutrqg[address] [facility]12-24-2024 00:47-0500Body .[address] [facility] 11-17-2024 00:47-0500Body oimnnleqpnr80.9 [degF][facility]12-24-2024 00:47-0500Body .[address] [facility] 11-17-2024 00:47-0500Diastolic blood uoetxpzg00 mm[Hg][facility]12-24-2024 00:47-0500Heart rate80 /minMer[facility] 11-17-2024 00:47-0500Respiratory rate18 /[facility] 11-17-2024 00:47-0508VzN2% (BldA) [Mass fraction]100 %[facility]12-24-2024 00:47-0500Systolic blood dmfysadf155 mm[Hg][facility]11-10-2024 00:30-0500Diastolic blood vhvofogd04 mm[Hg]Rigoberto Dusty DO Work Phone: 1(844)796-[address] [place], [place] 6194411-10-2024 00:30-0500 Heart rate81 /minCorey Dusty DO Work Phone: 1(806)408-[address] [place], [place] 6194411-10-2024 00:30-0500 Respiratory rate18 /minCorey Dusty DO Work Phone: 1(673)370-[address] [place], [place] 6194411-10-2024 00:30-0500 SaO2% (BldA) [Mass fraction]98 %Rigoberto Dusty DO Work Phone: 1(459)923-[facility]11-10-2024 00:30-0500 Systolic blood bxadrmnt666 mm[Hg]Rigoberto Dusty DO Work Phone: 4(243)147-[address] [place], [place] 6194411-09-2024 22:50-0500 Body evngcn747.64 cmCorey Dusty DO Work Phone: 6(302)268-[address] [place], [place] 6194411-09-2024 22:50-0500 Body jkfgqicqyii05.5 [degF]Rigoberto Dusty DO Work Phone: [facility]11-09-2024 22:50-0500 Body .25 kgCorey Dusty DO Work Phone: [facility]09-05-2024 11:24-0400 Body mass index (BMI) [Ratio]37.57 kg/m2Iris FONTENOT Work Phone: 1(843)612-[facility] HospitalPer[facility] HospitalAfpbmkkare69-79-7205 11:24-0400Body sttgsa816.6 kgAmy Mali PA Work Phone: 1(517)348-[address] [place], [place] [address]Czrqguojxz28-38-2100 11:24-0400Diastolic blood eonzvpwa49 mm[Hg]Iris FONTENOT Work Phone: [facility] HospitalNxmhuftxyr76-22-8024 11:24-0400Systolic blood orojlaar205 mm[Hg]Iris FONTENOT Work Phone: 1(884)964-[address] [place], [place] [address]Iwyivlhawb93-73-7672 10:08-0400Body djzqfi393.6 cmKrystal Koehler MD Work Phone: 1(701)[address]08-12-2024 10:08-0400 Body mass index (BMI) [Ratio]36.15 kg/p7TdgxuaKrystal Koehler MD Work Phone: 1(297)562-[address] [place], [place] 0584308-12-2024 10:08-0400 Body oivfwn728.61 kgKrystal Koehler MD Work Phone: 1(232)640-[address] [place], [place] 0584308-12-2024 10:08-0400 Diastolic blood bgbvwmbe24 mm[Hg]Krystal Koehler MD Work Phone: 1(583)946-[address] [place], [place] 0584308-12-2024 10:08-0400 Heart rate80 /minKrystal Koehler MD Work Phone: 1(238)[address]08-12-2024 10:08-0400 Systolic blood lhzuqsvq617 mm[Hg]Krystal Koehler MD Work Phone: 1(188)[address]05-12-2024 20:42-0400 Body cccakj782.1 cmPHYSICIAN NO [facility] 04-05-2024 20:42-0400Body chuldyowrwl57 [degF]PHYSICIAN [facility]05-12-2024 20:42-0400Body xnamft113.5 kgPHYSICIAN [facility]05-12-2024 20:42-0400Diastolic blood pnfzgzug09 mm[Hg]PHYSICIAN [facility]05-12-2024 20:42-0400Heart rate82 /minPHYSICIAN [facility] 04-05-2024 20:42-0400Respiratory rate18 /minPHYSICIAN [facility]05-12-2024 20:42-9877KaY0% (BldA) [Mass fraction]99 % PHYSICIAN [facility]05-12-2024 20:42-0400 Systolic blood djukydot469 mm[Hg]PHYSICIAN [facility]04-29-2024 08:58-0400Body qtnzdu968.1 cmKrystal Koehler MD Work Phone: 1(394)417-[address] [place], [place] 0584304-29-2024 08:58-0400 Body mass index (BMI) [Ratio]38.61 kg/m1GaytrrKrystal Koehler MD Work Phone: 1(104)461-[address] [place], [place] 0584304-29-2024 08:58-0400 Body owmjkf718.23 kgKrystal Koehler MD Work Phone: 1(632)414[address] [place], [place] 0584304-29-2024 08:58-0400 Diastolic blood ysnpfmxy21 mm[Hg]Krystal Koehler MD Work Phone: 1(497)[address] [place], [place] 0584304-29-2024 08:58-0400 Heart rate82 /minKrystal Koehler MD Work Phone: 1(445)[address]04-29-2024 08:58-0400 Systolic blood padxlgnd453 mm[Hg]Krystal Koehler MD Work Phone: 1(893)[address]04-26-2024 10:09-0400 Body scidni506.6 cmPacc 2 Work Phone: [facility]04-26-2024 10:09-0400Body mass index (BMI) [Ratio]36.65 kg/m2Pacc 2 Work Phone: [facility]04-26-2024 10:09-0400Body temperature 97.3 [degF]Pacc 2 Work Phone: [facility]04-26-2024 10:09-0400Body wasvlz685 kg Pacc 2 Work Phone: [facility]04-26-2024 10:09-0400Diastolic blood yhixmcwq42 mm[Hg]Pacc 2 Work Phone: [facility]04-26-2024 10:09-0400Heart rate97 /min Pacc 2 Work Phone: [facility]04-26-2024 10:09-0400Respiratory rate 16 /minPacc 2 Work Phone: [facility]04-26-2024 10:09-0956KcW2% (BldA) [Mass fraction]99 %Pacc 2 Work Phone: [facility]04-26-2024 10:09-0400Systolic blood hnriooyt345 mm[Hg]Pacc 2 Work Phone: [facility]11-29-2023 21:18-0500Diastolic blood ybikpncm77 mm[Hg]IVONE Marques Work Phone: [facility]11-29-2023 21:18-0500 Heart rate80 /minIVONE Marques Work Phone: [facility]11-29-2023 21:18-0500 Respiratory rate16 /minIVONE Marques Work Phone: [facility]11-29-2023 21:18-0500 SaO2% (BldA) [Mass fraction]99 %IVONE Marques Work Phone: [facility]11-29-2023 21:18-0500 Systolic blood ixewcghe712 mm[Hg]IVONE Marques Work Phone: 1(533)[address] [place] [employer], [place] 5820511-29-2023 17:23-0500 Body tlgtap718.64 cmPKrystalJosé Marques Work Phone: 1(626)[address] [place] [employer], [place] 5820511-29-2023 17:23-0500 Body lfugvgypkhn25.2 [degF]IVONE Marques Work Phone: 1(608)[address] [place] [employer], [place] 5820511-29-2023 17:23-0500 Body tlobac779.7 kgPAJosé Marques Work Phone: 1(320)[address] [place] [employer], [place] 5820511-29-2023 15:07-0500 Body .1 cmPJody Marques Work Phone: 1(690)[address] [place] [employer], [place] 5820511-29-2023 15:07-0500 Body hretogbmhha81.8 [degF]IVONE Marques Work Phone: 1(070)[address] [place] [employer], [place] 5820511-29-2023 15:07-0500 Body aftjlv684.65 kgPAJosé Marques Work Phone: 1(917)[address] [place] [employer], [place] 5820511-29-2023 15:07-0500 Diastolic blood pwueuyuw13 mm[Hg]IVONE Marques Work Phone: 1(573)[address] [place] [employer], [place] 5820511-29-2023 15:07-0500 Heart rate84 /minIVONE Marques Work Phone: 1(838)[address] [place] [employer], [place] 5820511-29-2023 15:07-0500 Respiratory rate22 /minIVONE Marques Work Phone: 1(689)[address] [place] [employer], [place] 5820511-29-2023 15:07-0500 SaO2% (BldA) [Mass fraction]100 %IVONE Marques Work Phone: 1(209)[address] [place] [employer], [place] 5820511-29-2023 15:07-0500 Systolic blood rvxrnjzu347 mm[Hg]IVONE Marques Work Phone: 1(690)[address] [place] [employer], [place] 5820509-26-2023 12:55-0400 Body .1 cmPA-C Ga Marques Work Phone: 1(890)[address] [place] [employer], [place] 5820509-26-2023 12:55-0400 Body nrkoaotqbmc18.5 [degF]IVONE Marques Work Phone: 1(419)[address] [place] [employer], [place] 5820509-26-2023 12:55-0400 Body zlhvya004.2 kgIVONE Marques Work Phone: [phone])[address] [place] [employer], [place] 5820509-26-2023 12:55-0400 Diastolic blood fyppialt99 mm[Hg]IVONE Marques Work Phone: 1(419)[address] [place] [employer], [place] 5820509-26-2023 12:55-0400 Heart rate86 /Jamil Marques Work Phone: 1(419)[address] [place] [employer], [place] 5820509-26-2023 12:55-0400 Respiratory rate20 /Jamil Marques Work Phone: 1(706)[address] [place] [employer], [place] 5820509-26-2023 12:55-0400 SaO2% (BldA) [Mass fraction]99 %IVONE Marques Work Phone: 1(714)[address] [place] [employer], [place] 5820509-26-2023 12:55-0400 Systolic blood akdatdip861 mm[Hg]IVONE Marques Work Phone: 1(464)[address] [place] [employer], [place] 5820508-07-2023 18:06-0400 Body ksgaby940.1 Anitra-Johanna Marques Work Phone: 1(577)[address] [place] [employer], [place] 5820508-07-2023 18:06-0400 Body ajuehgtzeax11.1 [degF]IVONE Marques Work Phone: 1(419)[address] [place] [employer], [place] 5820508-07-2023 18:06-0400 Body tuavgh946.15 kgIVONE Marques Work Phone: [phone])[address] [place] [employer], [place] 5820508-07-2023 18:06-0400 Diastolic blood kgujnfwd10 mm[Hg]IVONE Marques Work Phone: 1(265)[address] [place] [employer], [place] 5820508-07-2023 18:06-0400 Heart rate96 /minIVONE Marques Work Phone: 1(615)[address]08-07-2023 18:06-0400 Respiratory rate18 /minIVONE Marques Work Phone: 1(974)[address] [place] [employer], [place] 5820508-07-2023 18:06-0400 SaO2% (BldA) [Mass fraction]95 %IVONE Marques Work Phone: 1(200)[address] [place] [employer], [place] 5820508-07-2023 18:06-0400 Systolic blood mm[Hg]CORIE-Johanna Marques Work Phone: 1(419)[address] [place] [employer], [place] 5820506-29-2023 21:28-0400 Body tqzkes444.1 cmPA-C Ga Marques Work Phone: 1(769)[address] [place] [employer], [place] 5820506-29-2023 21:28-0400 Body gcybjnndyvh22.5 [degF]IVONE Marques Work Phone: 1(293)[address] [place] [employer], [place] 5820506-29-2023 21:28-0400 Body .7 kgPAJosé Marques Work Phone: 1(419)[address] [place] [employer], [place] 5820506-29-2023 21:28-0400 Diastolic blood chapxpbh25 mm[Hg]IVONE Marques Work Phone: 1(081)[address] [place] [employer], [place] 5820506-29-2023 21:28-0400 Heart rate96 /minIVONE Marques Work Phone: 1(213)[address] [place] [employer], [place] 5820506-29-2023 21:28-0400 Respiratory rate20 /minIVONE Marques Work Phone: 1(140)[address] [place] [employer], [place] 5820506-29-2023 21:28-0400 SaO2% (BldA) [Mass fraction]97 %IVONE Marques Work Phone: 1(580)[address] [place] [employer], [place] 5820506-29-2023 21:28-0400 Systolic blood apohoakq568 mm[Hg]IVONE Marques Work Phone: 1(591)[address] [place] [employer] [employer], [place] 5820504-07-2023 10:00-0400 72 1Ga Marques Work Phone: [id number]-Xuxym [facility] [address] [place] Work Phone: Comment on above:[id number] 1 Ga Marques Work Phone: [id number]-Smfbe [facility] [address] [place] Work Phone: Comment on above:[id number] 09:46-0400 Diastolic blood vprwisen48 mm[Hg]Ga Marques Work Phone: [id number]-Ppkaz [facility] [address] [place] Work Phone: 1(728) 583-862203-20-2023 09:46-0400Systolic blood woivrhwx781 mm[Hg] Ga Marques Work Phone: [id number]-Hjeog [facility] [address] Work Phone: 1(939) 673-878003-20-2023 09:45-0400Body rjhpim637.64 cmTabril Marques Work Phone: [id number]-Dyytf [facility] [address] Work Phone: 1(950) 539-617703-20-2023 09:45-0400Body mass index (BMI) [Ratio] 37.12 kg/n6CxzbtgGa Marques Work Phone: [id number]-Xchtm [facility] [address] Work Phone: 1(422) 851-799803-20-2023 09:45-0400Body surface area Derived from formula2.12 p4RzsbisGa Marques Work Phone: [id number]-Kpohd [facility] [address] Work Phone: 1(906) 514-950703-20-2023 09:45-0400Body leyiol396.33 kgGa Marques Work Phone: [phone]-Qocpo [facility] 250 DO Work Phone: 1(650) 489-959103-20-2023 09:45-0400Diastolic blood yradmisb21 mm[Hg] Ga Krystal Shelli Work Phone: [phone]-Lrdcv [facility] 250 DO Work Phone: 1(854) 246-710403-20-2023 09:45-0400Heart rate76 /minThomas Krystal Marques Work Phone: 1(941) [phone]-[facility]dpjnS[facility] 250 DO Work Phone: 1(820) 135-216703-20-2023 09:45-0400Systolic blood ihkrlxep628 mm[Hg] Ga Marques Work Phone: [phone]-DlcxoRed [facility] 250 DO Work Phone: 1(115) 401-224202-19-2023 03:00-0500Diastolic blood maoaitpm25 mm[Hg] IVONE Marques Work Phone: 1(659)013-[address] [place], [place] 8574202-19-2023 03:00-0500 Heart rate87 /minIVONE Marques Work Phone: 1(967)[address]02-19-2023 03:00-0500 Respiratory rate19 /minIVONE Marques Work Phone: 1(882)23979 [address]02-19-2023 03:00-0500 SaO2% (BldA) [Mass fraction]99 %IVONE Marques Work Phone: 1(491)981-[address] [place], [place] 8574202-19-2023 03:00-0500 Systolic blood mm[Hg]IVONE Marques Work Phone: 1(801)[address]02-19-2023 01:05-0500 Body .1 Lilia Marques Work Phone: 1(263)215-[address] [place], [place] 8574202-19-2023 01:05-0500 Body meurslfaiwi20.3 [degF]IVONE Marques Work Phone: 1(625)931-[address] [place], [place] 8574202-19-2023 01:05-0500 Body otxikn568 kgIVONE Marques Work Phone: 1(213)[address]02-10-2023 13:35-0500 Body ycjlrw603.1 Lilia Marques Work Phone: 1(942)002-[address] [place], [place] 8574202-10-2023 13:35-0500 Body simgdmjsjrb67.3 [degF]PA-C Ga Marques Work Phone: 1(814)[address] [place] [employer], [place] 5820502-10-2023 13:35-0500 Body kgPA-C Ga Marques Work Phone: 1(891)[address] [place] [employer], [place] 5820502-10-2023 13:35-0500 Diastolic blood hmsnkizg61 mm[Hg]PA-Johanna Marques Work Phone: 1(495)[address] [place] [employer], [place] 5820502-10-2023 13:35-0500 Heart rate95 /minIVONE Marques Work Phone: 1(778)[address] [place] [employer], [place] 5820502-10-2023 13:35-0500 Respiratory rate22 /minYOUNGC Ga Marques Work Phone: 1(393)[address] [place] [employer], [place] 5820502-10-2023 13:35-0500 SaO2% (BldA) [Mass fraction]98 %CORIE-Johanna Marques Work Phone: 1(024)[address] [place] [employer], [place] 5820502-10-2023 13:35-0500 Systolic blood srniivox284 mm[Hg]PA-Johanna Marques Work Phone: 1(653)[address] [place] [employer], [place] 5820501-06-2023 02:15-0500 Body .1 cmPA-C Ga Marques Work Phone: 1(529)[address] [place] [employer], [place] 5820501-06-2023 02:15-0500 Body bnujec361.05 kgPA-Johanna Marques Work Phone: 1(913)[address] [place] [employer], [place] 5820501-06-2023 02:14-0500 Body vmuaitxzqom53.5 [degF]IVONE Marques Work Phone: 1(687)[address] [place] [employer], [place] 5820501-06-2023 02:14-0500 Diastolic blood wfequwur78 mm[Hg]CORIE-Johanna Marques Work Phone: 1(388)[address] [place] [employer], [place] 5820501-06-2023 02:14-0500 Heart rate95 /minPAYeimiC Ga Marquse Work Phone: 1(151)[address] [place] [employer], [place] 5820501-06-2023 02:14-0500 Respiratory rate20 /minPA-C Ga Marques Work Phone: 1(864)[address] [place] [employer], [place] 5820501-06-2023 02:14-0500 SaO2% (BldA) [Mass fraction]99 %CORIE-C Ga Marques Work Phone: 1(794)[address] [place] [employer], [place] 5820501-06-2023 02:14-0500 Systolic blood ifcfrfij762 mm[Hg]CORIE-C Ga Marques Work Phone: 1(468)[address] [place] [employer], [place] 5820510-28-2022 17:16-0400 Diastolic blood uxakryon24 mm[Hg]PA-Johanna Marques Work Phone: 1(752)[address] [place] [employer], [place] 5820510-28-2022 17:16-0400 Heart rate72 /minIVONE Marques Work Phone: 1(410)[address] [place] [employer], [place] 5820510-28-2022 17:16-0400 Respiratory rate18 /minIVONE Marques Work Phone: 1(792)[address] [place] [employer], [place] 5820510-28-2022 17:16-0400 SaO2% (BldA) [Mass fraction]100 %IVONE Marques Work Phone: 1(243)[address] [place] [employer], [place] 5820510-28-2022 17:16-0400 Systolic blood zvkyvphi281 mm[Hg]CORIE-Johanna Marques Work Phone: 1(557)[address] [place] [employer], [place] 5820510-28-2022 15:58-0400 Body vhnigm718.1 AnitraJosé Marques Work Phone: 1(510)[address] [place] [employer], [place] 5820510-28-2022 15:58-0400 Body nciyuidqmcl94.3 [degF]IVNOE Marques Work Phone: 1(069)[address] [place] [employer], [place] 5820510-28-2022 15:58-0400 Body gsziur863.59 kgPAJosé Marques Work Phone: 1(809)[address] [place] [employer], [place] 5820510-20-2022 09:17-0400 Body mfffhi904.64 cmPKrystalJosé Marques Work Phone: 1(930)[address] [place] [employer], [place] 5820510-20-2022 09:17-0400 Body jtoxysjpfum16.6 [degF]IVONE Marques Work Phone: 1(816)[address] [place] [employer], [place] 5820510-20-2022 09:17-0400 Body sxchwe584.2 kgPA-C Ga Marques Work Phone: 1(922)[address] [place], [place] 5820510-20-2022 09:17-0400 Diastolic blood mm[Hg]PA-Johanna Marques Work Phone: 1(658)[address] [place] [employer], [place] 5820510-20-2022 09:17-0400 Heart rate85 /minYOUNGC Ga Marques Work Phone: 1(354)[address] [place], [place] 5820510-20-2022 09:17-0400 Respiratory rate18 /minYOUNGC Ga Marques Work Phone: 1(504)[address] [place], [place] 5820510-20-2022 09:17-0400 SaO2% (BldA) [Mass fraction]99 %IVONE Marques Work Phone: 1(457)[address] [place] [employer], [place] 5820510-20-2022 09:17-0400 Systolic blood qajuvvvc294 mm[Hg]IVONE Marques Work Phone: 1(189)[address] [place] [employer], [place] 5820509-09-2022 19:16-0400 Body .1 cmPA-C Ga Marques Work Phone: 1(296)[address] [place] [employer], [place] 5820509-09-2022 19:16-0400 Body abikpmwapdm95.5 [degF]IVONE Marques Work Phone: 1(507)[address] [place] [employer], [place] 5820509-09-2022 19:16-0400 Body .25 kgPA-Johanna Marques Work Phone: 1(184)[address] [place], [place] 5820509-09-2022 19:16-0400 Diastolic blood ozqxigho66 mm[Hg]IVONE Marques Work Phone: 1(464)[address] [place] [employer], [place] 5820509-09-2022 19:16-0400 Heart rate80 /minIVONE Marques Work Phone: 1(143)[address] [place] [employer], [place] 5820509-09-2022 19:16-0400 Respiratory rate18 /minIVONE Marques Work Phone: 1(946)[address] [place], [place] 5820509-09-2022 19:16-0400 SaO2% (BldA) [Mass fraction]98 %IVONE Marques Work Phone: 1(015)[address] [place] [employer], [place] 5820509-09-2022 19:16-0400 Systolic blood uuvhdouf454 mm[Hg]IVONE Marques Work Phone: 1(419)[address] [place], [place] 5820508-05-2022 19:16-0400 Body zeaxvb567.1 cmPA-C Ga Marques Work Phone: 1(419)[address] [place] [employer], [place] 5820508-05-2022 19:16-0400 Body kdrpbxupmbs96.5 [degF]IVONE Marques Work Phone: 1(419)[address] [place] [employer], [place] 5820508-05-2022 19:16-0400 Body gpgkma895.8 kgIVONE Marques Work Phone: 1(919)[address] [place], [place] 5820508-05-2022 19:16-0400 Diastolic blood gbklcybv46 mm[Hg]IVONE Marques Work Phone: 1(582)[address] [place] [employer], [place] 5820508-05-2022 19:16-0400 Heart rate81 /Jamil Marques Work Phone: 1(608)[address] [place] [employer], [place] 5820508-05-2022 19:16-0400 Respiratory rate18 /Jamil Marques Work Phone: 1(330)[address] [place] [employer], [place] 5820508-05-2022 19:16-0400 SaO2% (BldA) [Mass fraction]100 %IVONE Marques Work Phone: 1(782)[address] [place] [employer], [place] 5820508-05-2022 19:16-0400 Systolic blood kdilivkd525 mm[Hg]IVONE Marques Work Phone: 1(419)[address] [place] [employer], [place] 5820507-02-2022 23:21-0400 Heart rate82 /minYOUNGC Ga Marques Work Phone: 1(794)[address] [place] [employer], [place] 5820507-02-2022 23:21-0400 Respiratory rate18 /minYOUNGC Ga Marques Work Phone: 1(997)[address]07-02-2022 23:21-0400 SaO2% (BldA) [Mass fraction]99 %IVONE Marques Work Phone: 1(628)[address] [place] [employer], [place] 5820507-02-2022 21:17-0400 Body guodqo509.64 cmPAJosé Marques Work Phone: 1(392)[address]07-02-2022 21:17-0400 Body mass index (BMI) [Ratio]39.5 kg/m2IVONE Marques Work Phone: 1(227)[address] [place] [employer], [place] 5820507-02-2022 21:17-0400 Body yizulnnizzq76.2 [degF]IVONE Marques Work Phone: 1(801)[address] [place] [employer], [place] 5820507-02-2022 21:17-0400 Body dnwyoh033.13 kgIVONE Marques Work Phone: 1(904)[address] [place] [employer], [place] 5820507-02-2022 21:17-0400 Diastolic blood ulyryslc018 mm[Hg]IVONE Marques Work Phone: 1(872)[address] [place] [employer], [place] 5820507-02-2022 21:17-0400 Systolic blood mvghxhku928 mm[Hg]IVONE Marques Work Phone: 1(280)[address] [place] [employer], [place] 5820506-27-2022 14:45-0400 Diastolic blood btgheibq22 mm[Hg]IVONE Marques Work Phone: 1(405)[address]06-27-2022 14:45-0400 Heart rate98 /Jamil Marques Work Phone: 1(494)[address]06-27-2022 14:45-0400 Respiratory rate20 /minIVONE Marques Work Phone: 1(662)[address] [place] [employer], [place] 5820506-27-2022 14:45-0400 SaO2% (BldA) [Mass fraction]96 %IVONE Marques Work Phone: 1(663)[address] [place] [employer], [place] 5820506-27-2022 14:45-0400 Systolic blood mm[Hg]IVONE Marques Work Phone: [facility]06-27-2022 13:06-0400 Body yvicvm670.64 cmPAJosé Marques Work Phone: [facility]06-27-2022 13:06-0400 Body mass index (BMI) [Ratio]39.2 kg/m2IVONE Ga Marques Work Phone: [facility]06-27-2022 13:06-0400 Body hjujwn542.4 kgIVONE Marques Work Phone: [facility]06-27-2022 12:10-0400 Body ijfobpfqyhy63 [degF]IVONE Marques Work Phone: [facility]04-14-2022 10:54-0400 Body eyeexsrmuvv51.6 [degF][facility]04-14-2022 10:54-0400Diastolic blood kkozyntq27 mm[Hg][facility] 03-08-2022 10:54-0400Heart rate86 /[facility] 03-08-2022 10:54-0400Respiratory rate18 /[facility] 03-08-2022 10:54-4099BrB7% (BldA) [Mass fraction]97 %[facility]04-14-2022 10:54-0400Systolic blood ynysobpu839 mm[Hg][facility]04-14-2022 10:48-0400Body wjbnni914.[address] [facility]04-14-2022 10:48-0400Body mass index (BMI) [Ratio]39.7 kg/s9HsdwqnvpiMer[facility]04-14-2022 10:48-0400Body eykirb815.[address] [facility]03-29-2022 20:40-0400Body vxvrtfoooqa64.1 [degF][facility]03-29-2022 20:40-0400Diastolic blood sttfihep60 mm[Hg] [facility]03-29-2022 20:40-0400Heart rate87 /[facility]03-29-2022 20:40-0400Respiratory rate18 /[facility]03-29-2022 20:40-2330OmM1% (BldA) [Mass fraction]98 % [facility]03-29-2022 20:40-0400Systolic blood hwyrketa952 mm[Hg][facility]03-29-2022 20:38-0400Body kuwqcv159.[address] [facility]03-29-2022 20:38-0400Body mass index (BMI) [Ratio]40.2 kg/x7MwcolljbqMercy Health St[facility]03-29-2022 20:38-0400Body jhycfo977.[address] [facility]02-15-2022 23:43-0500Body height 165.[address] [facility]02-15-2022 23:43-0500Body mass index (BMI) [Ratio]39.6 kg/m3AgdjajlfpMercy Health St[facility]02-15-2022 23:43-0500 Body eqwligutntj02 [degF][facility]02-15-2022 23:43-0500 Body hpqxeo641.[address] [facility]02-15-2022 23:43-0500 Diastolic blood txgcryje16 mm[Hg][facility]02-15-2022 23:43-0500Heart rate91 /[facility]02-15-2022 23:43-0500Respiratory rate18 /[facility]02-15-2022 23:43-2617UmJ6% (BldA) [Mass fraction]100 %[facility] 01-09-2022 23:43-0500Systolic blood lzxozawb253 mm[Hg][facility] Encounters Encounter DateEncounter TypeCare ProviderFacilityStart: 09-27-2025 End: 45-88-5496rvgchfnqnbGXUP CANNFacility:[facility]art: 09-14-2025 End: 01-79-5267yguchhjhwiXYRB CANNFacility:[facility]art: 09-09-2025 End: 76-32-1431libkkbeoicHFMD CANNFacility:[facility] HospitalStart: 08-26-2025 End: 57-88-5285qvbooihqsaYVXDMIR M ARMBREHIGHLAND DISTRICT HOSPITALFacility:[facility] Hospitaltart: 77-55-6838Vteldswpn for other preprocedural examinationEULALIA FUENTESTimpanogos Regional Hospital Start: 08-11-2025 End: 29-78-1329Bmmbiw OnlyEulalia Fuentes DPM Work Phone: OrthopaedicsComment on above:Acquired dysmorphic toenail (Primary Dx); Pain in toes of both feet; Difficulty walking; Pain of toes of both feetStart: 08-10-2025 End: 30-47-2482Ywvqlkops encounterEulalia Fuentes DPM Work Phone: OrthopaedicsComment on above:Surgical FollowupStart: 08-10-2025 End: 19-62-3886Zdawamh encounter procedureEulalia Fuentes DPM Work Phone: PodiatryComment on above:Type 2 diabetes mellitus with diabetic polyneuropathy, 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 (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) (Primary Dx); Difficulty walking; BMI 39.0-39.9,adult; Eversion deformity of foot, left; Painful scar; Acquired dysmorphic toenail; Pain in toes of both feetStart: 08-10-2025 End: 06-44-2152jpqtobmefbPWYU CANNFacility:[facility] Hospitaltart: 08-04-2025 End: 60-57-6964nxbxbibsveVDV RAMEYNot AvailableStart: 08-04-2025 End: 83-15-4579Bbtpzq outpatient visit 15 minutesIris FONTENOT Work Phone: [facility] OBGYNComment on above:Encounter for consultationStart: 08-04-2025 End: 07-88-0228Thmahemonico FONTENOT Work Phone: [facility] [place] OBGYNStart: 08-04-2025 End: 09-71-7849Zaqvxomonico FONTENOT Work Phone: [facility] OBGYNStart: 07-28-2025 End: 47-24-5693Ubnzzrtcm department patient visitLORI LIONAstra Health Center Emergency MedicineComment on above:Shortness of breath (Primary Dx); Exacerbation of asthma, unspecified asthma severity, unspecified whether persistent (HHS-HCC); Upper respiratory tract infection, unspecified typeStart: 07-12-2025 End: 13-84-6102dvzhefgaliDMLKPM VARGAS VNot AvailableStart: 07-12-2025 End: 82-17-2052Npyzpk follow up visit related to original pxDerek Viera MD Work Phone: [facility]oms Surgical AssociatesComment on above:Epidermal inclusion cyst (Primary Dx); Left buttock abscessStart: 06-28-2025 End: 80-80-3099Ixdlwyzc Result EncounterDerek Viera MD Work Phone: noms External Department UnsolicitedStart: 06-28-2025 End: 32-15-8770Vcaxpory Result EncounterDerek Servin MD Work Phone: noms External Department UnsolicitedStart: 06-28-2025 End: 33-55-5274Fpojilx encounter procedureKelsea Joseph APRN [employer]-Ultrasound Main [place] Work Phone: Start: 06-28-2025 End: 20-30-0718wpzghkegspKMZXWTSMC NO [facility] Work Phone: Start: 06-28-2025 End: 82-69-7111Kcxrixhyh to same day surgery centerDerek Viera MD-[facility]Start: 06-28-2025 End: 82-18-5023ktmrymnmbaWDOSAHRSZ NO [facility] Work Phone: Start: 06-18-2025 End: 91-43-2832Swlzcw outpatient new 45 minutesDerek Viera MD Work Phone: noms ST GENSComment on above:Left breast abscess (Primary Dx); Mass of upper inner quadrant of left breast; Mass of buttock; Neoplasm of uncertain behavior of skin of back; Type 2 diabetes mellitus without complication, without long-term current use of insulin (HCC)Start: 06-18-2025 End: 39-02-0336uvichoutjlDKWFIS VARGAS VNot AvailableStart: 06-16-2025 End: 55-16-2486Wjpslik encounter procedureSemajjossue Jake [facility] Work Phone: Start: 06-16-2025 End: 28-96-4805pwiynwzrarPWQRLHPVY NO [facility] Work Phone: Start: 06-12-2025 End: 88-24-2230Ghupiqtlr department patient visitPHYSICIAN NO [facility] Work Phone: Start: 06-02-2025 End: 08-83-9180Croddoqlc department patient visitPHYSICIAN NO [facility] Work Phone: Start: 05-24-2025 End: 26-80-9248Korebo flowsheetIris FONTENOT Work Phone: noms BCP OBStart: 05-24-2025 End: 95-66-6956Bxprvj flowsheetIris FONTENOT Work Phone: noms BCP OBStart: 05-24-2025 End: 38-82-4274Fzsgyjvkd Result EncounterIris FONTENOT Work Phone: noms External Department UnsolicitedStart: 05-24-2025 End: 34-79-5861Yukhpiu encounter procedureIris FONTENOT Work Phone: noMS HealthcareStart: 05-24-2025 End: 95-61-8441Tltfawfd preventive med est patient 40-64yrsAmy Mali FONTENOT Work Phone: noms BCP OBComment on above:Breast tenderness in female (Primary Dx); Well woman exam with routine gynecological exam; Encounter for screening mammogram for malignant neoplasm of breastStart: 05-24-2025 End: 88-58-8110vqvfzfevyeCAW RAMEYNot AvailableStart: 05-06-2025 End: 01-42-9299Npocgbm encounter procedureKelsea Joseph APRN [employer]-Lab [facility] [place] Work Phone: Start: 05-06-2025 End: 95-12-3068zqndsjpwbhWdhxhbld EberlyFacility:[facility] Centertart: 05-03-2025 End: 11-17-3494Adispq flowsheetCorey Dusty DO Work Phone: noms BCP OBStart: 05-03-2025 End: 37-48-4363Cnifki flowsheetCorey Dusty DO Work Phone: noms BCP OBStart: 05-03-2025 End: 42-11-1085Wifatlls Result EncounterCorey Dusty DO Work Phone: noms External Department UnsolicitedStart: 05-03-2025 End: 95-84-5631Kplkjs outpatient visit 15 minutesCorey Dusty DO Work Phone: noms BCP OBComment on above:Type 2 diabetes mellitus with other skin complications (Primary Dx); Pelvic pain in female; Yeast infectionStart: 05-03-2025 End: 26-59-8002zowthikfhtIIDNI FAZIONot AvailableStart: 04-15-2025 End: 60-63-3914Ktjraphur department patient visitC[facility] Work Phone: Start: 03-23-2025 End: 29-43-0928Xtyawdoww department patient visitC[facility] Work Phone: Start: 03-20-2025 End: 92-19-8327Qikfywpcj department patient visitC[facility] Work Phone: Start: 02-10-2025 End: 54-57-8501Pyjimsdzu department patient visitC[facility] Work Phone: Start: 01-11-2025 End: 44-41-5053Fhxprh outpatient visit 25 minutesKrystal Koehler MD Work Phone: uh FirelandsComment on above:Primary hypertension; Diabetes mellitus type II, non insulin dependent (Multi); Mixed hyperlipidemia; Hypokalemia; BMI 33.0-33.9,adult; SmokerStart: 01-11-2025 End: 59-92-8827vajjfqvrmcRRENCVFlint River HospitalStart: 01-04-2025 End: 40-25-1775yxdhdvwxcgXLGL CANNFacility:[facility] Hospitaltart: 01-04-2025 End: 39-52-7414Wdekzxo encounter procedureEulalia Fuentes DPM Work Phone: OrthopaedicsComment on above:DM (diabetes mellitus), type 2 with neurological complications (HCC) (Primary Dx); Hyperkeratosis; Pain in both feet; Eversion deformity of foot, left; Acquired dysmorphic toenailStart: 12-04-2024 End: 56-36-0740xnnazauayrOXDL CANNFacility:[facility] Hospitaltart: 12-04-2024 End: 08-16-6619Abdwbia encounter procedureEulalia Fuentes DPM Work Phone: OrthopaedicsComment on above:Eversion deformity of foot, left (Primary Dx); Pain in both feet; Diabetes mellitus type 2 with neurological manifestations (HCC); Difficulty walking; Fibromyalgia; History of foot surgery; Hyperkeratosis; Chronic pain of left ankle; Neuralgia of left lower extremity; DM (diabetes mellitus), type 2 with neurological complications (HCC)Start: 11-22-2024 End: 08-77-2052Szzkjdbrd [facility] Work Phone: Start: 11-17-2024 End: 55-31-5520Njscrvxnf department patient visitChildren[facility] Work Phone: Start: 10-05-2024 End: 78-57-2464lyymizmyxoXOJB CANNFacility:[facility] Hospitaltart: 10-05-2024 End: 13-13-1890Evgfyiw encounter procedureEulalia Fuentes DPM Work Phone: OrthopaedicsComment on above:Painful scar (Primary Dx); DM (diabetes mellitus), type 2 with neurological complications (HCC); Neuralgia of left lower extremity; Chronic pain of left ankle; Hyperkeratosis; History of foot surgery; FibromyalgiaStart: 10-03-2024 End: 90-33-5605Lkjaerbgu department patient visitCorey Dusty DO Work Phone: [facility] Work Phone: Start: 08-31-2024 End: 11-22-3706Cesqivj encounter procedureEulalia Fuentes DPM Work Phone: OrthopaedicsComment on above:Left foot pain (Primary Dx); Post-operative state; Difficulty walking; Painful scar; Diabetes mellitus type 2 with neurological manifestations (HCC)Start: 08-20-2024 End: 75-85-2155dmuremdqtzNMDZE FAWILBERTOONot AvailableStart: 08-07-2024 End: 64-18-7570Kuahbazpa encounterEulalia Fuentes DPM Work Phone: OrthopaedicsComment on above:FMLA PaperworkStart: 07-30-2024 End: 91-75-2354Rugasl Angie FONTENOT Work Phone: noms BCP OBStart: 07-30-2024 End: 93-37-3775Mjjlwv Angie FONTENOT Work Phone: noms BCP OBStart: 07-30-2024 End: 22-52-9034Qrsskquhh encounterEulalia Fuentes DPM Work Phone: OrthopaedicsComment on above:Patient QuestionStart: 07-30-2024 End: 29-43-5266Cmqgai follow up visit related to original Jim FONTENOT Work Phone: noms BCP OBComment on above:Postoperative examination Start: 07-22-2024 End: 22-73-6537Vsfheou encounter Donte Fuentes DPM Work Phone: OrthopaedicsComment on above:Post-operative state (Primary Dx)Start: 07-16-2024 End: 90-01-7700Lpysnodzp Result EncounterCorey Dusty DO Work Phone: noms External Department UnsolicitedStart: 07-16-2024 End: 90-78-5632Iulvkqyjz Result EncounterCorey Dusty DO Work Phone: noms External Department UnsolicitedStart: 07-16-2024 End: 01-40-9815dvhuznfbitFVF [facility] Work Phone: Start: 07-16-2024 End: 32-08-3924Fgzdlcaj ReferredDO Rigoberto Dusty Work Phone: [facility]-LAB Path [facility] [place] HospStart: 84-90-0713Alwfcgodi encounterJohn Ruby DPM Work Phone: OrthopaedicsComment on above:DisabilityStart: 07-06-2024 End: 36-36-6402Kwmeoe outpatient visit 25 minutesKrystal Koehler MD Work Phone: uh FirelandsComment on above:Medication course changed (Primary Dx); Primary hypertension; Diabetes mellitus type II, non insulin dependent (Multi); Hyperlipidemia, unspecified hyperlipidemia type; Smoker; Preop cardiovascular examStart: 07-06-2024 End: 21-22-4524Ronilej encounter statusKrystal Koehler MD Work Phone: [facility] Work Phone: Start: 07-06-2024 End: 47-26-3451xopvwvexcwRKIDNZHaven [facility] AmbulatoryStart: 07-06-2024 End: 21-86-4826Xcurofars for preprocedural cardiovascular examinationGEHaven [facility]al [facility] AmbulatoryStart: 07-02-2024 End: 81-53-0032Cafwhntud Result EncounterCorey Dusty DO Work Phone: noms External Department UnsolicitedStart: 07-02-2024 End: 45-08-6873Flgifdyhs Result EncounterCorey Dusty DO Work Phone: noWV External Department UnsolicitedStart: 06-23-2024 End: 46-24-7073Sutuvrn encounter procedureEulalia Ruby DPM Work Phone: PodiatryComment on above:Post-operative state (Primary Dx)Start: 06-08-2024 End: 99-50-2368gkpoexwwvdJppp Ruby DPM Work Phone: OrthopaedicsComment on above:Post-operative state (Primary Dx)Start: 06-08-2024 End: 65-91-5340Ejdurtralloc consultation with Mundo Fuentes DPM Work Phone: OrthopaedicsStart: 66-27-6815Neusqouum encounterEulalia Ruby DPM Work Phone: OrthopaedicsComment on above:Patient UpdateStart: 84-42-7472iowdlbqtefHIVSS RUMSCHLAGFacility:[place] BellevueStart: 05-20-2024 End: 47-97-5664Nnakkdd encounter procedureEulalia Ruby DPM Work Phone: OrthopaedicsComment on above:Post-operative state (Primary Dx)Start: 49-84-1353Ggsplapkn encounterHenriettagopal Ruby DPM Work Phone: OrthopaedicsStart: 05-07-2024 End: 12-84-7700Klrqrne encounter procedureHenriettagopal Ruby DPM Work Phone: OrthopaedicsComment on above:Post-operative state (Primary Dx)Start: 84-69-1186Smyektpbx encounterEulalia Ruby DPM Work Phone: OrthopaedicsComment on above:FMLA PaperworkStart: 04-27-2024 End: 03-19-6862Lwzwkyk encounter procedureHenriettagopal Ruby DPM Work Phone: OrthopaedicsComment on above:Difficulty walking (Primary Dx); Right foot pain; Painful scar; Neuritis of left lower extremity; FibromyalgiaStart: 04-24-2024 End: 15-65-1443ybicanhpopXIPVRNWBY [facility] Work Phone: Start: 04-24-2024 End: 43-83-9845Mojtakx encounter procedurePHYSICIAN [facility] [place] Work Phone: Start: 32-39-3259Uzztpepqg encounterHca [facility] Work Phone: pre AnesthesiaStart: 55-58-4852Yauglxago encounterEulalia Fuentes DPM Work Phone: PodiatryComment on above:surgery question and infected toeStart: 04-05-2024 End: 35-20-8097Sfppfveqd department patient visitPHYSICIAN [facility] Work Phone: Start: 18-77-6734Bnqxzedhc encounterEulalia Fuentes DPM Work Phone: OrthopaedicsStart: 03-23-2024 End: 32-17-8371Nanunq outpatient visit 25 minutesKrystal Koehler MD Work Phone: uh [facility]st. anne hospitalComment on above:Medication course changed (Primary Dx); Diabetes mellitus type II, non insulin dependent (Multi); Anemia, unspecified type; Primary hypertension; BMI 38.0-38.9,adult; Smoker; Hyperlipidemia, unspecified hyperlipidemia typeStart: 03-20-2024 End: 60-03-4711Maylimfnp to [facility] 2 Work Phone: pre AnesthesiaStart: 03-20-2024 End: 31-77-7502Mwbehxaplr consultationHca [facility] 2 Work Phone: pre AnesthesiaComment on above:Pre-op evaluation (Primary Dx); Hyperlipidemia, unspecified hyperlipidemia type; Type 2 diabetes mellitus with other specified complication, without long-term current use of insulin ([facility]); Fibromyalgia; Migraine without status migrainosus, not intractable, unspecified migraine type; Cigarette nicotine dependence without complication; Mild intermittent asthma without complication; Obstructive sleep apnea of adult; Gastro-esophageal reflux disease without esophagitis; Class 2 severe obesity due to excess calories with serious comorbidity and body mass index (BMI) of36.0 to 36.9 in adult ([facility])Start: 03-20-2024 End: 91-64-9980Xcuxrhatcnlli examination [place] [address] Work Phone: [facility] Work Phone: Start: 00-08-9034gmyganimlaTevr Cann DPM Work Phone: OrthopaedicsComment on above:My toes look infected Start: 50-26-2578Twspgrxnz encounterEulalia Fuentes DPM Work Phone: [facility] Rheum InstituteComment on above:Patient Update; Patient QuestionStart: 03-11-2024 End: 14-32-1153ufpbmxzfxxDailsf Brackman PT, DPT Work Phone: [facility] TherapyComment on above:Type 2 diabetes mellitus with diabetic polyneuropathy, unspecified whether half-way insulin use ([facility]); BMI 39.0-39.9,adult; Difficulty walking; Eversion deformity of foot, left; Painful scarStart: 03-09-2024 End: 05-10-5347Nknvrmg encounter procedureEulalia Fuentes DPM Work Phone: OrthopaedicsComment on above:Ingrown toenail (Primary Dx); Pain in both feet; Acquired dysmorphic toenail; History of foot surgery; Diabetes mellitus type 2 with neurological manifestations ([facility]); BMI 39.0-39.9,adult; Fibromyalgia; Eversion deformity of foot, leftStart: 44-91-3022dqymzpcyilZlzc Cann DPM Work Phone: OrthopaedicsStart: 25-86-1958Hzjimzvhy encounterEulalia Fuentes DPM Work Phone: OrthopaedicsComment on above:Surgical FollowupStart: 02-03-2024 End: 73-18-3657Hvxcuub encounter Donte Fuentes DPM Work Phone: OrthopaedicsComment on above:Ingrown toenail (Primary Dx); History of foot surgery; Diabetes mellitus type 2 with neurological manifestations ([facility]); Painful scar; Acquired dysmorphic toenail; Eversion deformity of foot, left; HyperkeratosisStart: 01-25-2024 End: 48-06-4010Cfijbli encounter procedurePHYSICIAN TREY [facility] Main [place] Work Phone: Start: 60-89-6402Xhgypkemy encounterEulalia WHITFIELDMyles Work Phone: OrthopaedicsComment on above:Schedule SurgeryStart: 01-03-2024 End: 28-76-6224Lakoolx encounter procedureEulalia WHITFIELDMyles Work Phone: OrthopaedicsComment on above:History of foot surgery (Primary Dx); Eversion deformity of foot, left; Hyperkeratosis; Neuritis of left lower extremity; Diabetes mellitus type 2 with neurological manifestations (HCC); Difficulty walking; Painful scar; Pain in both feet; Neuralgia of left lower extremity; Chronic pain of left ankle; Acquired dysmorphic toenailStart: 11-20-2023 End: 61-43-3319vayyahhfgqXSIVONE Marques Work Phone: [facility] Work Phone: Start: 11-20-2023 End: 39-10-2182Jcsjhcz encounter Honorio Marques Work Phone: [facility] Work Phone: Start: 85-60-8433jbuntdospiLplcxu A Radman RT(R) RadiologyComment on above:Radiology XRStart: 11-01-2023 End: 14-42-9961Yhmshhs encounter Alli Pollard RT(R)JHONNY RIGGS Comment on above:Eversion deformity of foot, left (Primary Dx); Hyperkeratosis; Neuritis of left lower extremity; History of foot surgery; Diabetes mellitus type 2 with neurological manifestations (HCC); Difficulty walking; Painful scarStart: 11-01-2023 End: 11-59-9854Iheuyvhaqi hospital visit by Chuyita Lama Work Phone: RadiologyComment on above:Pain in left foot [M79.672] Start: 10-23-2023 End: 28-94-6250Mfqhxbbcr department patient visitPA-Johanna Marques Work Phone: [facility]-Emergency [facility] Work Phone: Start: 10-23-2023 End: 36-90-4455Kabrohbrj department patient visitPA-Johanna Marques Work Phone: [facility]-Emergency [facility] Work Phone: Start: 08-20-2023 End: 79-20-1477Wvlvijtsj department patient visitPA-Johanna Marques Work Phone: [facility]-Emergency [facility] Work Phone: Start: 07-01-2023 End: 19-11-8356Lorqwamuj department patient visitPA-Johanna Marques Work Phone: [facility]Emer[facility] Work Phone: Start: 05-23-2023 End: 47-93-7351Knfiwsbxt department patient visitPA-Johanna Marques Work Phone: [facility]-Emer[facility] Work Phone: Start: 23-64-3979Eghwrmmse for preprocedural laboratory examinationAYAKA [facility] Hospitaltart: 03-25-2023 End: 90-28-2730Aftoucdaq for preprocedural laboratory examinationHEALTH SERVICES FAMILYFacility:P7Ipcil: 03-25-2023 End: 54-51-9765uxktlvdeteLHXJZC SERVICES FAMILYFacility:S5Bcxxm: 97-22-1659Kotvw UpdateGa Krystal Shelli Work Phone: [phone]-Rtwzc [facility] 250 DO Work Phone: Start: 97-91-6019vzraucsjxcAtJey Koehler Facility:[id number]: 73-70-2473Ecgbkqw encounter procedureLoretaayaka Krystal Marques Work Phone: [phone]-Fzkzf [facility] [address] [place] Work Phone: Start: 06-67-7558kdzxktdinuCd. Krystal Koehler Facility:[id number]: 91-28-0621Fegoidg encounter procedureGa Marques Work Phone: [phone]-Kbaxi [facility] [address] [place] Work Phone: Start: 43-32-2975dptsngktzdHw. Krystal Koehler Facility:9844Start: 26-50-6152Jobee UpdateThayaka Rice Marques Work Phone: [phone]-Nqocg [facility] 250 DO Work Phone: Start: 02-18-2023 End: 27-68-2907xukrmxdpcvHJIVONE Marques Work Phone: [facility] Work Phone: Start: 02-18-2023 End: 99-59-7584Ednehwb encounter procedureIVONE Marques Work Phone: [facility]-Lab Main [place] Work Phone: Start: 94-18-7394SPWL, Provider: TITUS CHANEY ULTRASOUND 01,[id number], Status: Pen, Time: 10:45 AMThayaka Krystal Marques Work Phone: [facility] [facility] DO Work Phone: Start: 76-52-0745Nbjpqf consultation new/estab patient 60 minThaayka Krystal Marques Work Phone: [phone]-Ehmfe [facility] 250 DO Work Phone: Start: 01-13-2023 End: 67-21-9544Ilirgwnjy department patient visitPAJosé Marques Work Phone: [facility]-Emergency Room Work Phone: Start: 82-38-2077anjcsayusxPGABMH SERVICES FAMILY Facility:N0Fjcvu: 01-04-2023 End: 85-46-0234Wwphrlgil department patient visitPAJosé Marques Work Phone: [facility]-Emergency [facility] Work Phone: Start: 91-54-4034cbdfgajaigXT RIGOBERTO DUSTY .Facility:H1 Start: 12-28-2022 End: 19-62-6411bqhfkevmtrTI RIGOBERTO DUSTY .Facility:R9Fmive: 85-59-1598xnpcgnjolc DR RIGOBERTO DUSTY .Facility:P6Xtjjr: 12-08-2022 End: 13-08-6337bocytrzhfhGB-C Ga Marques Work Phone: [facility] Work Phone: Start: 12-08-2022 End: 20-62-5515Qijqiza encounter procedurePA-Johanna Marques Work Phone: [facility]-Ultrasound Main [place] Work Phone: Start: 12-04-2022 End: 66-29-5243knmbwtizqwKS RIGOBERTO DUSTY .Facility:N7Tojwf: 12-01-2022 End: 07-32-9725nwkhqpobobLJ-Johanna Marques Work Phone: [facility] Work Phone: Start: 12-01-2022 End: 11-03-3335Haayrti encounter procedurePAJosé Marques Work Phone: [facility]-Lab Main [place] Work Phone: Start: 11-30-2022 End: 04-82-8745Nkojbcxgx department patient visitPA-Johanna Marques Work Phone: [facility]-Emergency Room Work Phone: Start: 38-58-7745gunhwezzriJC RIGOBERTO DUSTY .Facility:H1 Start: 09-21-2022 End: 79-20-9572Bbnwmrggd department patient visitPA-Johanna Marques Work Phone: [facility]-Emergency RoomStart: 09-13-2022 End: 98-66-3870Wgmzyzhlb department patient visitIVONE Ga Marques Work Phone: [facility]-Emergency RoomStart: 08-15-2022 End: 31-57-5784Hgrporv encounter procedureIVONE Ga Marques Work Phone: [facility]-Lab Main CampusStart: 08-03-2022 End: 16-05-1797Dknqgmdze department patient visitIVONE Ga aMrques Work Phone: [facility]-Emergency RoomStart: 07-21-2022 End: 42-17-8888Kfxjdrx encounter procedureYOUNGJohanna Marques Work Phone: [facility]-Lab Main CampusStart: 07-09-2022 End: 49-04-9756Gobkjtg encounter procedureEulalia Fuentes DPM Work Phone: OrthopaedicsComment on above:Pain in both feet (Primary Dx); Hyperkeratosis; Neuritis of left lower extremity; Neuralgia of left lower extremity; History of foot surgery; Diabetes mellitus type 2 with neurological manifestations (HCC); Chronic pain of left ankle; Acquired dysmorphic toenail; Difficulty walkingStart: 06-29-2022 End: 65-35-1613Lblsvfogk department patient visitIVONE Ga Marques Work Phone: [facility]-Emergency RoomStart: 71-03-4882sjfiuudzmxQS COREY FAZIO .Facility:P2Zkknl: 06-15-2022 End: 72-78-9279Chvqwyf encounter procedureYOUNGJohanna Marques Work Phone: [facility]-Lab Main CampusStart: 05-26-2022 End: 06-02-8912Jljkxfjvk department patient visitIVONE Ga Marques Work Phone: [facility]-Emergency RoomStart: 05-21-2022 End: 07-06-9066Pbyokgdqw to same day surgery centerIVONE Marques Work Phone: [facility]-Surgery Center Main CampusStart: 05-17-2022 End: 24-17-9124Gcmsuac encounter procedureIVONE Marques Work Phone: [facility]-Pre-Surgical Testing Start: 05-11-2022 End: 58-94-5058Rqkndey encounter procedureIVONE Marques Work Phone: [facility]-Pre-Surgical Testing Start: 04-30-2022 End: 17-75-3478Uheqphc encounter procedureEulalia Fuentes DPM Work Phone: OrthopaedicsComment on above:Hyperkeratosis (Primary Dx); Neuritis of left lower extremity; Neuralgia of left lower extremity; History of foot surgery; Diabetes mellitus type 2 with neurological manifestations (HCC)Start: 03-17-2022 End: 59-23-1342Pcojfkh encounter procedureChildren[facility]Start: 03-08-2022 End: 66-27-8885Qyflcmhrh department patient visitChildren'S Hospital [facility]- Emergency RoomStart: 86-37-0614Nrorjosfp encounterEulalia Fuentes DPM Work Phone: [phone] InstituteComment on above:Patient QuestionStart: 02-20-2022 End: 95-87-1903Vdzsdfugb department patient visitChildren'S [facility]- Emergency RoomStart: 01-09-2022 End: 15-03-4401Wjscqjwfd department patient visitChildren'S Hospital [facility]- Emergency RoomPreoperative stateThayaka Rice Shelli Work Phone: [phone]-Ldznf [facility] 250 DO Work Phone: Procedures DateProcedureProcedure DetailPerforming ClinicianStart: 80-16-1124Gbdnplyfui exam chest 2 viewsCharles Johanna Gonzálese PA-C Work Phone: Start: 07-28-2025 End: 94-35-0998Vhiplvxybjygo metabolic panelCharles Johanna Cid PA-C Work Phone: Start: 15-11-7272Cskaj blood ph direct buzz xcpt pulse oximitryCharles Johanna Cid PA-C Work Phone: Start: 16-09-8933Vwpiczugn virus A and B and SARS-CoV-2 (COVID-19) identified in Respiratory specimen by CODY with probe detectionAlex Cid PA-C Work Phone: Start: 38-84-8162Texlwh echographyPHYSICIAN NO FAMILY Start: 10-28-9294Acynyzccjgbt echographyPHYSICIAN NO FAMILYStart: 06-28-2025 DebridementPHYSICIAN NO FAMILYStart: 29-63-8652HQOTTQR POCT GLUCOMETERSDerek Viera MD Work Phone: Start: 56-63-7890Lttbrqsufvdehgf of left breast PHYSICIAN NO FAMILYStart: 06-16-2025 End: 31-33-8257Ngwotlskz mammographyPHYSICIAN NO FAMILYStart: 86-65-1407Bxaqa X- ray of right shoulderPHYSICIAN NO FAMILYStart: 39-90-3284JVW,APTIMA HPV,AGE GDLN Iris FONTENOT Work Phone: Start: 03-36-4419Yzpdwclklaz observation [Identifier] in Cervix by Cyto stainCorey Pecabu DO Work Phone: Start: 48-01-2607ENZYSWEQW VAGINITIS (HTRX)Rigoberto Pecabu DO Work Phone: Start: 92-03-5512Gdwjj dip stick/tablet rgnt non-auto w/o micrscpCorey Dusty DO Work Phone: Start: 31-57-1873DT of abdomen and pelvis without contrastStart: 76-45-6137X-ray of right footStart: 00-72-5358FNJ CBC WITH AUTO DIFFCorey Pecabu DO Work Phone: Start: 38-46-9876STA 12-LEADCorey Pecabu DO Work Phone: Start: 60-15-1970Mwmazq echographyPHYSICIAN NO FAMILY Start: 83-19-4473Wkfcwpuxkqzj echographyPHYSICIAN NO FAMILYStart: 01-25-2024 Pelvic echographyPHYSICIAN NO FAMILYStart: 78-05-6987Mkizgblpq mammography of bilateral breastsPA-C Ga Marques Work Phone: Start: 15-41-7846Xplzy foot complete minimum 3 views Eulalia Fuentes DPM Work Phone: Start: 44-65-0443AW of abdomen and pelvis without contrastPA-C Ga Marques Work Phone: Start: 83-10-5467Rxhfx X-ray of bilateral femursPA-C Ga Marques Work Phone: Start: 33-38-1958OomavsoekdrhzhqfKnjjpz A Marques Work Phone: Start: 41-70-9339Ibuam chest X-rayPA-C Ga Marques Work Phone: Start: 35-08-4725Dotpsm echographyPA-C Ga Marques Work Phone: Start: 06-30-7616Qxgwmiocelc observation [Identifier] in Cervix by Alexis Koehler MD Work Phone: Start: 58-79-7537Vtxxz X-ray of left handPA-C Ga Marques Work Phone: Start: 84-32-6669Nibdp chest X-rayPA-C Ga Marques Work Phone: Start: 24-90-9829Xxowp X-ray of left shoulderPA-C Ga Marques Work Phone: Start: 17-10-1971Hllzp X-ray of left wristPA-C Ga Marques Work Phone: Start: 26-05-4028FK Wound Debridement/I&D/Hydradenitis (Right)PA-Johanna Ga Marques Work Phone: Start: 88-89-2650R-ray of lumbar spine, four or more viewsStart: 11-01-2021H/O: tubal ligationTubal ligation statusEulalia Fuentes DPM Work Phone: Excision of neoplasmThomas A Marques Work Phone: Ligation of fallopian tubeThomas A Marques Work Phone: Operation on gallbladderThomas A Marques Work Phone: Operative procedure on footThomas A Marques Work Phone: Procedure on abdomenThomas Krystal Marques Work Phone: Urine culturePA-C Ga Marques Work Phone: NEGATED: Highlighted row has not occurred!Colonoscopy Ga Marques Work Phone: Plan of Treatment DateCare ActivityDetailAuthorStart: 92-59-7554Fzzeqg Vaccines (1 of 2)Zoster Vaccines (1 of 2)[facility]: 23-71-9048YOaB/Tdap/Td Vaccines (2 - Td or Tdap)DTaP/Tdap/Td Vaccines (2 - Td or Tdap)[facility]: 09-16-2012Vfklu microalbumin profileDTaP,Tdap,Td Vaccine (2 - Td or Tdap)[facility]art: 84-67-8551Eolzdjayi for malignant neoplasm of cervixGalion Hospital: 00-41-0628Hsczfopmw for malignant neoplasm of cervixNOMS HealthcareStart: 54-62-6556Phagejblq for malignant neoplasm of breastNOMS HealthcareStart: 41-70-3736Zvwdsn Adult PhysicalYearly Adult PhysicalUnFort Hamilton Hospitalart: 12-27-2025 End: 04-98-9280Ycnffse encounter cdysieylt32/02/2026 10:00 AM EST Office Visit [facility] [address] [facility] [address] [place] [address] Krystal Koehler MD [address] [facility] [address] [place] [address] [facility]: 43-90-6656Rrjhalpff for malignant neoplasm of cervixUnDayton VA Medical Center: 51-20-8919Phsrptogbc A1c measurementDiabetes: Hemoglobin E9GPBZB HealthcareStart: 10-04-2025 End: 48-38-3810Llcyjlw encounter fvqmburld71/10/2025 1:20 PM EST Consult DUDLEY SILVEIRA [address] [place] [phone] Rigoberto Montano DO [address] [facility] [address] [place] [address] DUDLEY ROQUEtart: 09-14-2025 End: 88-66-7853Gplrpba encounter pzlwextja53/21/2025 10:15 AM EDT Office Visit Podiatry [address] [place] [address] Eulalia Fuentes DPM [address] [place] [address] Post op bilateral toes, SX 09/09/25PodiatryComment on above:Post op bilateral toes, SX 09/09/25Start: 09-09-2025 End: 66-85-4006Ujylwtvcz to same day surgery mcnban8909/09/2025 2:05 PM EDT - 09/09/2025 3:20 PM EDT Surgery Ambulatory Surgery [address] [facility] [place] [address] Eulalia Fuentes DPM [address] [place] [address] EXCISION OF NAIL & MATRIX FOR PERMANENT REMOVALAmbulatory SurgeryComment on above:EXCISION OF NAIL & MATRIX FOR PERMANENT REMOVALStart: 09-09-2025 End: 40-00-2823Ztaovtsl nail matrix permanent removalEXCISION OF NAIL & MATRIX FOR PERMANENT REMOVAL Acquired dysmorphic toenail Pain in toes of both feet Difficulty walking Pain of toes of both feet 09/09/2025 2:05 PM EDC MODESTA RIGGS Start: 59-04-2077Xvtfhbckfs hospital visit by azyggdcdi79/16/2025 2:05 PM EDT Hospital Encounter Ambulatory Surgery [address] [place] [address] Eulalia Fuentes DPM [address] [place] [address] 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], Pain in toes of both feet [M79.674, M79.675], Difficulty walking [R26.2], Pain of toes of both feet [M79.674, M79.675]Ambulatory SurgeryComment on above: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], Pain in toes of both feet [M79.674, M79.675], Difficulty walking [R26.2], Pain of toes of both feet [M79.674, M79.675]Start: 08-26-2025 End: 08-06-7685Ewonjnc encounter ikyffnudo27/02/2025 12:40 PM EDT PAT Pre Anesthesia [address] [place] [address] PAC bilateral toenails, SX 09/09/25Pre AnesthesiaComment on above:PACC bilateral toenails, SX 09/09/25Start: 49-25-6014EGWXY-19 Vaccine ( season) COVID-19 Vaccine ( season)[facility]: 89-63-1525YPXUY-19 Vaccine ( season)COVID-19 Vaccine ( season)[facility]Start: 42-43-8829Tiyhgvdmu vaccinationPerry County Memorial Hospital Start: 07-09-2025 End: 72-22-1836Mrvawfi encounter scoeneawu39/15/2025 10:30 AM EDT Office Visit [facility] [address] [address] Derek Viera MD [address] [address] [facility] AssociatesStart: 06-28-2025 End: 23-69-5275QueezkgdvTrumbull Regional Medical Centertart: 06-01-2025 End: 68-48-3931Csghteg encounter vdepmuinc91/08/2025 10:50 AM EDT Office Visit [facility] [address] [place] [phone] Rigoberto Montano, DO [address] [facility] [address] [place] [address] [facility] OBStart: 05-24-2025 End: 59-56-5186HT Breast - bilateral DiagnosticBilateral diagnostic mammogram Imaging Routine Breast tenderness in female Expected: 05/24/2025 (Approximate), Expires: 07/24/2026[facility] Work Phone: comment on above:Expected: 05/24/2025 (Approximate), Expires: 07/24/2026Start: 05-24-2025 End: 62-29-4065Njpzlwy encounter procedureNOMS BCP OBComment on above:Arrived Start: 05-03-2025 End: 85-89-8522Anykzietat A1c/Hemoglobin.total in BloodHemoglobin A1c Lab Routine Type 2 diabetes mellitus with other skin complications Expected: 05/03/2025 (Approximate), Expires: 05/03/2026NOMS HealthcareComment on above: Expected: 05/03/2025 (Approximate), Expires: 05/03/2026Start: 05-03-2025 End: 05-48-3924MD PelvisUS Pelvis w/ TV Imaging Routine Pelvic pain in female Expected: 05/03/2025, Expires: 11/02/2025[facility] Work Phone: Comment on above:Expected: 05/03/2025, Expires: 11/02/2025Start: 05-03-2025 End: 58-42-2413Gnmkwgh encounter oupclyzeu89/09/2025 11:10 AM EDT Office Visit [facility] [address] [place] [phone] Rigoberto Montano, DO [address] [facility] [address] [place] [address] ArrivedNOMS BCP OBComment on above:ArrivedStart: 02-08-2025 End: 23-92-5958Ssinltw encounter bkcoflnqz29/17/2025 9:30 AM EDT Office Visit Orthopaedics [address] [place] [address] Eulalia Fuentes DPM [address] [place] [address] Left foot follow upOrthopaedicsComment on above:Left foot follow upStart: 01-11-2025 End: 03-25-7054Imhcu metabolic 2000 panel - Serum or PlasmaBasic Metabolic Panel Lab Routine Primary hypertension Diabetes mellitus type II, non insulin depend ent (Multi) Mixed hyperlipidemia Hypokalemia Expected: 01/11/2025, Expires: 01/11/2026[facility] Work Phone: Comment on above:Expected: 01/11/2025, Expires: 01/11/2026Start: 01-11-2025 End: 92-24-6618Ksiiacmpwdpqs metabolic 1999 panel - Serum or PlasmaComprehensive Metabolic Panel Lab Routine Primary hypertension Diabetes mellitus type II, non insulin dependent (Multi) Mixed hyperlipidemia Hypokalemia Expected: 01/11/2025, Expires: 01/11/2026[facility] Work Phone: Comment on above:Expected: 01/11/2025, Expires: 01/11/2026Start: 01-11-2025 End: 72-74-6271Hjmcs 1996 panel - Serum or PlasmaLipid Panel Lab Routine Mixed hyperlipidemia Expected: 01/11/2025, Expires: 01/11/2026[facility] Service Area Work Phone: Comment on above:Expected: 01/11/2025, Expires: 01/11/2026Start: 01-11-2025 End: 78-20-5029Wdgkanx encounter rkhyuaxbj63/17/2025 10:00 AM EST Office Visit [facility] [address] [facility] [address] [place] [address] Krystal Koehler MD [address] [facility] [address] [place] [address] [facility] HealthStart: 01-04-2025 End: 34-63-5297Bdxnaqt encounter twtfvsiew85/10/2025 9:30 AM EST Office Visit Orthopaedics [address] [place] [address] Eulalia Fuentes DPM [address] [place] [address] Left foot follow upOrthopaedicsComment on above:Left foot follow upStart: 11-30-2024 End: 00-27-9111Ybkwete encounter emkkundpt71/06/2025 9:20 AM EST Office Visit [facility] [address] [place] [phone] Rigoberto Montano, [address] [facility] [address] [place] [address] [facility] OBStart: 11-06-2024 End: 38-23-9533Ozsvlce encounter tdbxdjufq75/13/2024 10:45 AM EST Office Visit Orthopaedics [address] [place] [address] Eulalia Fuentes DPM [address] [place] [address] Left foot follow upOrthopaedicsComment on above:Left foot follow upStart: 25-54-0715Souls chest X-rayXR chest 1V [facility] Start: 21-10-6602FW Chest Single [facility] Hospitaltart: 08-31-2024 End: 10-37-1586Ufckhkk encounter gtgaqsnwe85/07/2024 10:00 AM EDT Office Visit Orthopaedics [address] [place] [address] Eulalia Fuentes DPM [address] [place] [address] Post op 12 wks left foot, SX 05/01/24OrthopaedicsComment on above:Post op 12 wks left foot, SX 6/7/24Start: 07-30-2024 End: 18-08-0842Toffduh encounter ikqylmpne19/05/2024 10:40 AM EDT Office Visit [facility] [address] [place] [phone] Iris Samson PA [address] [facility] [place] [address] ArrivedNOMS BCP OBComment on above:ArrivedStart: 07-26-2024 COVID-19 Vaccine ( season)COVID-19 Vaccine ( season) [facility]: 13-82-0153Ghuhd-19 Vaccine ( season)Covid-19 Vaccine ( season)[facility]: 07-26-2024 Covid-19 Vaccine ()Covid-19 Vaccine () [facility]: 54-26-1231Ytqfbusls vaccinationUpper Valley Medical Centertart: 07-13-2024 End: 61-08-0130Kzhwbzq encounter procedureOrthopaedicsComment on above:Post op 12 wks left foot, SX 05/01/24Start: 07-06-2024 End: 91-17-4706Dpzcxwprhymmc metabolic 2000 panel - Serum or PlasmaComprehensive Metabolic Panel Lab Routine Primary hypertension Expected: 07/06/2024 (Approximate), Expires: 07/06/2025[facility] Service Area Work Phone: Comment on above:Expected: 07/06/2024 (Approximate), Expires: 07/06/2025Start: 07-06-2024 End: 14-43-4809Xcpey 1996 panel - Serum or PlasmaLipid Panel Lab Routine Hyperlipidemia, unspecified hyperlipidemia type Expected: 07/06/2024 (Approx imate), Expires: 07/06/2025[facility] Work Phone: Comment on above:Expected: 07/06/2024 (Approximate), Expires: 07/06/2025Start: 07-06-2024 End: 01-99-1230Mrpupzo encounter bfghoffeg73/12/2024 10:00 AM EDT Office Visit [facility] [address] [facility] [address] [place] [address] Krystal Koehler MD [address] [facility] [address] [place] [address] [facility] 06-29-2024 End: 40-52-5808Wqawsbw encounter cdafyohyx11/05/2024 1:15 PM EDT Office Visit Orthopa[facility] [address] [place] [address] Eulalia Fuentes DPM [address] [place] [address] Post Op 12 wks Left foot Sx 04/10/24OrthopaedicsComment on above:Post Op 12 wks Left foot Sx 04/10/24Start: 83-37-9489Zgfvhutoym A1c measurementUpper Valley Medical Centertart: 06-17-2024 End: 58-01-8538Cswrrcv encounter mqdfarytj35/24/2024 9:45 AM EDT Office Visit Orthopaedics [address] [place] [address] Eulalia Fuentes DPM [address] [place] [address] Post op 6 wks left foot, SX 05/01/24OrthopaedicsComment on above:Post op 6 wks left foot, SX 05/01/24Start: 06-08-2024 End: 87-61-7466Oxlicia encounter relaephvv49/15/2024 11:30 AM EDT Office Visit Orthopaedics [address] [place] [address] Eulalia Fuentes DPM [address] [place] [address] Post op 6 wks left foot, SX 05/01/24OrthopaedicsComment on above:Post op 6 wks left foot, SX 05/01/24Start: 06-08-2024 End: 42-76-8101awnebmytzy86/15/2024 8:15 AM EDT [facility] [address] [place] [address] Eulalia Fuentes DPM [address] [place] [address] Post op 6 wks left foot, SX 05/01/24OrthopaedicsComment on above:Post op 6 wks left foot, SX 05/01/24Start: 06-08-2024 End: 18-77-5655Qpicneu encounter /15/2024 8:15 AM EDT Office Visit Orthopaedics [address] [place] [address] Eulalia Fuentes DPM [address] [place] [address] Post op 6 wks left foot, SX 05/01/24OrthopaedicsComment on above:Post op 6 wks left foot, SX 05/01/24Start: 05-21-2024 End: 36-77-9127Ycxpjyy encounter prkmsylya52/27/2024 1:15 PM EDT Office Visit Orthopaedics [address] [place] [address] Eulalia Fuentes DPM [address] [place] [address] Post Op 6 wks Left foot Sx 04/10/24OrthopaedicsComment on above:Post Op 6 wks Left foot Sx 04/10/24Start: 05-20-2024 End: 71-42-4470Kuenfgs encounter dzbvmwvui16/26/2024 11:30 AM EDT Office Visit Orthopaedics [address] [place] [address] Eulalia Fuentse DPM [address] [place] [address] Post op 3 wks left foot, SX 05/01/24OrthopaedicsComment on above:Post op 3 wks left foot, SX 05/01/24Start: 05-07-2024 End: 57-77-5190Laseuhg encounter opgshyggs65/13/2024 10:15 AM EDT Office Visit Orthopaedics [address] [place] [phone] Eulalia Fuentes DPM [address] [place] [address] Post op left foot, SX 05/01/24OrthopaedicsComment on above:Post op left foot, SX 05/01/24Start: 05-04-2024 End: 37-33-3927Hvgwkxu encounter sxutokiky62/10/2024 1:15 PM EDT Office Visit Orthopaedics [address] [place] [address] Eulalia Fuentes DPM [address] [place] [address] Post Op 3 wks Left foot Sx 04/10/24OrthopaedicsComment on above:Post Op 3 wks Left foot Sx 04/10/24Start: 05-01-2024 End: 27-33-5875Cmbrvomfc to same day surgery cvxnhr7705/01/2024 7:30 AM EDT - 05/01/2024 9:10 AM EDT Surgery Ambulatory Surgery [address] [place] [address] Eulalia Fuentes DPM [address] [place] [address] EXCISION BENIGN CYST/MASS LESION LOWER EXTREMITY < 0.5CMAmbulatory SurgeryComment on above:EXCISION BENIGN CYST/MASS LESION LOWER EXTREMITY < 0.5CMStart: 05-01-2024 End: 67-54-2036Rpi b9 lesion mrgn xcp sk tg t/a/l 0.5 cm/<EXCISION BENIGN CYST/MASS LESION LOWER EXTREMITY < 0.5CM History of foot surgery DM (diabetes mellitus), 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 05/01/2024 7:30 [facility]EDCL[facility]IN[facility] L[facility]AINStart: 11-43-6946Vyznxqfxvz hospital visit by uynzsrkho62/07/2024 7:30 AM EDT Hospital Encounter Ambulatory Surgery [address] [place] [address] Eulalia Fuentes DPM [address] [place] [address] History of foot surgery [Z98.890]Ambulatory SurgeryComment on above:History of foot surgery [Z98.890]Start: 05-01-2024 End: 40-98-0893Uvhvzqi encounter /07/2024 7:00 AM EDT Office Visit Pre Admission Testing [address] [place] [address] Ruby- updatePre Admission TestingComment on above:Ruby- updateStart: 04-27-2024 End: 54-05-0383Edthrcp encounter dgwwkujlc50/03/2024 11:45 AM EDT Office Visit Orthopaedics [address] [place] [address] Eulalia Fuentes DPM [address] [place] [address] Pre-op per JOSSY Castellon on 05/01/24OrthopaedicsComment on above:Pre-op per JOSSY Castellon on 05/01/24Start: 04-15-2024 End: 05-29-0356Zenstsf encounter ohcvudipf03/22/2024 1:30 PM EDT Office Visit Orthopaedics [address] [place] [address] Eulalia Fuentes DPM [address] [place] [address] Post Op Left foot Sx 04/10/24OrthopaedicsComment on above:Post Op Left foot Sx 04/10/24Start: 04-10-2024 End: 29-71-5534Hsatfvmmx to same day surgery bnqtgd3004/10/2024 2:20 PM EDT - 04/10/2024 4:05 PM EDT Surgery Ambulatory Surgery [address] [facility] [place] [address] Eulalia Fuentes DPM [address] [place] [address] EXCISION BENIGN CYST/MASS LESION LOWER EXTREMITY < 0.5CMAmbulatory SurgeryComment on above:EXCISION BENIGN CYST/MASS LESION LOWER EXTREMITY < 0.5CMStart: 04-10-2024 End: 21-15-3025Kdk b9 lesion mrgn xcp sk tg t/a/l 0.5 cm/<EXCISION BENIGN CYST/MASS LESION LOWER EXTREMITY < 0.5CM History of foot surgery DM (diabetes mellitus), 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 04/10/2024 2:20 [facility] [place]Start: 93-62-2765Ynqcchxbmk hospital visit by dywigtknd66/17/2024 2:20 PM EDT Hospital Encounter Ambulatory Surgery [address] [place] [address] Eulalia Fuentes DPM [address] [place] [address] History of foot surgery [Z98.890]Ambulatory SurgeryComment on above:History of foot surgery [Z98.890]Start: 03-23-2024 End: 83-56-6739Bfmwy 1996 panel - Serum or PlasmaLipid Panel Lab Routine Diabetes mellitus type II, non insulin dependent (Multi) Hyperlipidemia, uns pecified hyperlipidemia type Expected: 03/23/2024 (Approximate), Expires: 03/23/2025[facility] Service Area Work Phone: Comment on above:Expected: 03/23/2024 (Approximate), Expires: 03/23/2025Start: 03-20-2024 End: 80-21-6316Afqektzfky /26/2024 10:20 AM EDT PAT Pre Anesthesia [address] [facility] [place] [address] 2,Pacc [place] [address] [place] [address] Pacc Left foot Sx 04/10/24Pre AnesthesiaComment on above:Pacc Left foot Sx 04/10/24Start: 31-14-5059Wjicpaamso Health ScreeningBehavioral Health ScreeningUpper Valley Medical Centertart: 11-25-2023 Depression AssessmentDepression AssessmentUpper Valley Medical Centertart: 07-26-2023 COVID-19 Vaccine ( season)COVID-19 Vaccine ( season) [facility]: 53-64-9872Opmwm-19 Vaccine ()Covid-19 Vaccine ()[facility]ertart: 07-26-2023 Influenza vaccinationInfluenza Vaccine (#1)[facility]: 05-23-2023 Plain X-ray of bilateral femursXR femur [facility] Start: 62-13-6824PS Femur - bilateral ViewsMercy Health St. [facility] Start: 38-88-0530SwtkjjkqywdHpbmylgrq ScreeningUpper Valley Medical Centertart: 2023 Screening for malignant neoplasm of breastUpper Valley Medical Centertart: 10-06-8996HFX, Provider: Krystal Koehler, Status: Pen, Time: 11:00 AMFUV, Provider: Krystal Koehler, Status: Pen, [facility]: 11:00 [facility] [address] DO Work Phone: Start: 67-55-4859Jpevklsmpn and management of inpatientInpatient EncounterFacility:G7Alubd: 62-83-4635tydzxmlgljGaagghdnde Facility:S8Oedhw: 62-86-4281ZDT, Provider: Krystal Koehler, Status: Pen, Time: 11:00 AMFUV, Provider: Krystal Koehler, Status: Pen, Time: 11:00 [facility] 250 DO Work Phone: Start: 51-42-4171HEDJ ONLY, Provider: TITUS ROWEI NUCLEAR ,[id number], Status: Pen, Time: 8:30 AMREST ONLY, Provider: TITUS HHVI NUCLEAR ,[id number], Status: Pen, Time: 8:30 [facility] 250 DO Work Phone: Start: 20-51-3063TNXIZJJXD4, Provider: TITUS HHVI NUCLEAR 01,[id number], Status: Pen, Time: 10:00 AMSTRESSNUC2, Provider: TITUS HHVI NUCLEAR 01,[id number], Status: Pen, Time: 10:00 AMMPRed [facility] Work Phone: Start: 44-04-7857PPRU, Provider: TITUS HHVI ULTRASOUND 01,[id number], Status: Pen, Time: 2:30 PMECHO, Provider: TITUS HHVI ULTRASOUND 01,[id number], Status: Pen, Time: 2:30 PMAitkin [facility]us[facility] 250 DO Work Phone: Start: 86-96-3369Oauop chest X-rayXR chest 1V portable [facility]: 93-69-3537ET Chest Single viewTrumbull Regional Medical Centertart: 43-89-9067Jrflv X-ray of left handXR hand LT min 3V*[facility]: 24-39-4399NE Hand - left GE 3 Views [facility]: 23-79-9309Rcchdsqsew Assessment Depression AssessmentUpper Valley Medical Centertart: 69-95-8933Ljfdyxjfk vaccination [facility]: 07-21-2022 End: 59-18-9246Muwohut encounter procedureDeparted ClinicalCleveland Clinic Eucl[facility]tr-Lab Main CampusStart: 49-73-3303PGAIR-19 VACCINE (3 - Booster for Pfizer series)COVID-19 VACCINE (3 - Booster for Pfizer series)[facility] Start: 36-37-9958EivkqwomkCleveland Clinic Euclid Hospital Ctr Work Phone: Start: 14-32-1328UfylbnhfeCleveland Clinic Euclid Hospital Ctr Work Phone: Start: 84-74-0342PTO TESTINGHPV TESTINGUpper Valley Medical Centertart: 76-24-8702Dlxxosyob for malignant neoplasm of cervixHPV Testing [facility]: 76-54-0354EXT Vaccine (1 - 3-dose SCDM series)HPV Vaccine (1 - 3-dose SCDM series)[facility]: 59-91-3858NBP Vaccines (1 - 3- dose standard series)[facility]: 13-36-3664HAR TESTINGPAP TESTINGUpper Valley Medical Centertart: 27-75-9602Qqiuoujwr for malignant neoplasm of cervixUpper Valley Medical Centertart: 69-12-8687ZQQZOGCEV B (1 of 3 - Risk 3- dose series)HEPATITIS B (1 of 3 - Risk 3-dose series)[facility]: 70-07-9790Ctnptdssq B Vaccine (1 of 3 - 19+ 3-dose series)Hepatitis B Vaccine (1 of 3 - 19+ 3-dose series)[facility]: 58-40-9267Vviuzbwib B Vaccines (1 of 3 - 19+ 3-dose series)Hepatitis B Vaccines (1 of 3 - 19+ 3-dose series) [facility]: 97-71-8382Jgcbkykqnvlv vaccination Pneumococcal Vaccine (1 of 2 - PCV)[facility]: 37-29-8542Bpgjixxktecm Vaccine: Pediatrics (0 to 5 Years) and At-Risk Patients (6 to 64 Years) (1 of 2 - PCV)Pneumococcal Vaccine: Pediatrics (0 to 5 Years) and At-Risk Patients (6 to 64 Years) (1 of 2 - PCV)[facility]: 51-95-3753Anonkltpobjb Vaccine: Pediatrics and At-Risk Adult Patients (1 of 2 - PCV)Pneumococcal Vaccine: Pediatrics and At-Risk Adult Patients (1 of 2 - PCV)[facility]: 81-67-4675Busdx microalbumin profileDTAP,TDAP,TD (1 - Tdap) [facility]: 38-02-3994Esigm screening for proteinDiabetes: Urine Protein ScreeningUnDayton VA Medical Center: 71-85-0550YBQCXZ PCP TEAM CHRONIC DISEASE VISITANNUAL PCP TEAM CHRONIC DISEASE VISITMagruder Hospital Start: 67-86-2720Aquzvnh ScreeningAnxiety ScreeningUpper Valley Medical Centertart: 23-13-4472Vwjwpcoepi ScreeningDepression ScreeningUpper Valley Medical Centertart: 06-26-3619Tzpaumyuu B surface antibody levelLDL CHOLESTEROLMagruder Hospital Start: 83-39-7184WGISSCZJV C SCREENINGHEPATITIS C SCREENINGMagruder Hospital Start: 42-07-0771Bhlgtvkto C screeningHepatitis C ScreeningMagruder Hospital Start: 40-90-7454BKY SCREENINGHIV SCREENINGUpper Valley Medical Centertart: 22-89-1560DYS screeningHIV ScreeningUpper Valley Medical Centertart: 68-95-3321IZMVFKBOVWGSNFQBJZYD [facility]: 08-71-5798KOQ PNEUMOVAX PRIOR TO AGE 65ONE PNEUMOVAX PRIOR TO AGE 65Upper [facility] Centertart: 57-02-6777Nugrefe of varicella vaccination Varicella Vaccines (1 of 2 - 13+ 2-dose series)[facility] HospitalStart: 1996 Varicella vaccinationVaricella Vaccines (1 of 2 - 13+ 2-dose series)[facility] SystemStbaileyton: 96-97-2369Cvpqg depression screening assessment DEPRESSION SCREENINGUpper Valley Medical Centertart: 05-22-19933 comp foot exam completed DIABETIC FOOT EXAMUpper Valley Medical Centertart: 49-70-2798Aocmasci foot examination [facility]: 51-40-1206Effziojz screeningUpper Valley Medical Centertart: 58-26-5688Qebepckwk B screeningURINE ALBUMIN:CREATININE RATIOMagruder Hospital Start: 17-29-5321Aumxlsnbw C antibody, confirmatory testDILATED RETINAL EXAM [facility]: 36-73-6097URuW/Tdap/Td Vaccines (1 - Tdap)DTaP/Tdap/Td Vaccines (1 - Tdap)[facility] HospitalStbaileyton: 58-68-5983EOMBULIEFJWG (1 - PCV) PNEUMOCOCCAL (1 - PCV)[facility]: 11-11-7393Aqlijdtfuryw vaccination [facility]: 33-52-8669Aekcsulwcour Vaccine: Pediatrics (0 to 5 Years) and At-Risk Patients (6 to 64 Years) (1 of 2 - PCV)Pneumococcal Vaccine: Pediatrics (0 to 5 Years) and At-Risk Patients (6 to 64 Years) (1 of 2 - PCV) [facility] SystemStbaileyton: 53-30-5023Iinqjrwafg A1c measurement BbG7PWmgqcclbjUpper Valley Medical Centertart: 29-05-9627Dunqcwvihq A1c/Hemoglobin.total in Blood CLJ2XYknjeuhjcUpper Valley Medical Centertart: 89-20-8207IGL Vaccines (1 of 1 - Standard series)MMR Vaccines (1 of 1 - Standard series)[facility]: 58-14-6382PEDTXIROT B (1 of 3 - 3-dose series)HEPATITIS B (1 of 3 - 3-dose series)[facility]: 99-74-9736Cczzyazsp B Vaccine (1 of 3 - 3-dose series)Hepatitis B Vaccine (1 of 3 - 3-dose series)[facility]: 82-03-2952KFA screeningHIV ScreeningUnDayton VA Medical Center: 99-49-5541Pnbki panelLipid PanelUnDayton VA Medical Center: 21-90-6841Nudek screening for proteinDiabetes: Urine Protein ScreeningGalion Hospital: 92-05-5759Knpega Adult PhysicalYearly Adult PhysicalUnTriHealth McCullough-Hyde Memorial HospitalBacteria identified in Urine by Culture [facility] HospitalCHLAMYDIA TRACHOMATIS (GENITO/STI)CHLAMYDIA TRACHOMATIS (GENITO/STI) Lab Routine Pelvic pain in female Ordered: 05/03/2025 NOMS HealthcareComment on above:Ordered: 05/03/2025 End: 27-30-0345Bsyfxvacqbigtlalnn ( test) [Presence] in UrinePOCT , urine Point of Care Testing STAT Once (Lab) for 1 Occurrences starting 07/28/2025 until 07/28/2025[facility] Service Area Work Phone: comment on above:Once (Lab) for 1 Occurrences starting 07/28/2025 until 07/28/2025 End: 42-91-0021MMZ 12 [facility] Service Area Work Phone: comment on above:Every 1 hour for 2 Occurrences starting 07/28/2025 until 07/28/2025Glucose measurement estimated from glycated hemoglobinChildren'S Hospital Of Columbus Work Phone: Hemoglobin A1c/Hemoglobin.total in BloodChildren'S Hospital Of Columbus Work Phone: Neisseria gonorrhoeae DNA [Presence] in Unspecified specimen by CODY with probe detectionNeisseria gonorrhea DNA probe, direct Lab Routine Pelvic pain in female Ordered: 05/03/2025NOWV HealthcareComment on above:Ordered: 05/03/2025 End: 24-44-2987Lwmchazughb review of Blood testsMemorial Health System Work Phone: Comment on above:Once (Lab) for 1 Occurrences starting 07/28/2025 until 07/28/2025, 1 completedPatient EducationCleveland Clinic Euclid Hospital Ctr Work Phone: Patient referralCleveland Clinic Euclid Hospital Ctr Work Phone: SURESWAB(R) ADVANCED VAGINITIS PLUS, TMASURESWAB(R) ADVANCED VAGINITIS PLUS, TMA Pathology and Cytology Routine Pelvic pain in female Ordered: 05/03/2025[employer] Work Phone: comment on above:Ordered: 05/03/2025THIN PREP TIS PAP AND HR HPV DNATHIN PREP TIS PAP AND HR HPV DNA Pathology and Cytology Routine Well woman exam with routine gynecological exam Ordered: 05/24/2025[employer] Work Phone: comment on above:Ordered: 05/24/2025[facility] Immunizations Immunization DateImmunizationNotesCare WarftfwxFgtpztos84-29-6730Mbprmqkmx 30 MCG/0.3ML Intramuscular SuspensionLoretaomas A Shelli Work Phone: [phone]-YnfgqChippewa City [facility] 250 DO Work Phone: [phone]qir toxoid, reduced diphtheria toxoid, and acellular pertussis vaccine, adsorbedLoretaomas A Shelli Work Phone: [facility]02-23-2022Comirnaty 30 MCG/0.3ML Intramuscular SuspensionThomas A Shelli Work Phone: mpElbow Lake Medical Centery 250 DO Work Phone: [phone]JNG-11 mRNA, Comirnaty (Pfizer)IVONE Marques Work Phone: [facility]02-23-2021COVID-19 mRNA, Comirnaty (Pfizer)IVONE Marques Work Phone: [facility] Payers DatePayer CategoryPayerPolicy [id number] 2022Medicaid (Managed Care)[employer] [id number] Health InsuranceCARESOCIMARRON [facility] Member Subscriber Plan / Payer (Effective 2021-Present) Name: Gary Vigil N Relation to Subscriber: Self Name: Gary Vigil N Payer ID: Not on file Group ID: [id number] Type: Not on file Address: [address] [place] [id number] 2020MedicaidCARESOURCE MEDICAID [facility] MEDICA[facility] [id number] 2020- [phone] [address] [place] [address] [id number] 2020Medicaid [id number] 01.10.840.1.606948.3.57[id number] 2.840.1.584494.3.57[id number] 2.840.1.989072.3.57[id number] 2.840.1.936331.3.57[id number] 2.0.1.674495.3.57[id number] 2.0.1.968294.3.579.2.48256-17-4379Wzlfjsd6849858 2..1.039418.3.57[id number] 2..1.144258.3.579.2.79770-74-1505Pyuicfk6603524 2..1.538043.3.579.2.27722-97-9603Zuszeke7237979 2..1.754278.3.579.2.38695-07-9913Luwzgxu7041752 2..1.212145.3.579.2.73001-86-0517Tajvrdj10569202 2..1.870950.3.579.2.588981-46-0011Irgvsdi20258389 2..1.357860.3.579.2.812270-85-7039Qegarhj94250758 2..1.763753.3.579.2.154527-22-5813Azsipbb08266850 2..1.518229.3.579.2.731218-02-0673Dddmzxl393927997 2.0.1.264574.3.579.2.159085-15-8707Dsrqaqz03158508 2.16.840.1.167096.3.579.2.244854-34-0769Uyrnrxj552599101 2..1.324522.3.57[id number] 2..1.690987.3.579.2.505037-94-7693Mumnhcx020883829 2..1.024856.3.579.2.167536-83-7698Gegoryt02238897 2..1.259498.3.579.2.320562-81-7732Shnwjmp15344450 2..1.832526.3.579.2.661243-34-8525Cqxqydz37233637 2..1.637405.3.579.2.578753-04-0202Grtbdvh26303493 2..1.283879.3.579.2.278511-80-3751Ppsxhib71233014 2..1.835248.3.579.2.785391-88-1481Bvlwehp1550682 2..1.906844.3.579.2.1259 [id number]-xfm 9280d59i-[id number]-bo98yct0695y08-28-0863Eeqwoct65310903362 8025d853-7112-19g5-4s40-95156852d0z0Thxegqz72320250 2..1.509843.3.579.2.151Yspstmq25089153 2..1.757425.3.579.2.531 Dnrmpcs12774199 2..1.079576.3.579.2.053Yzxmrql32363177 2.16.840.1.544569.3.579.2.439Bhnyvmw00937199 2.16.840.1.498529.3.579.2.531 Gdkctgr14852936 2.16.840.1.013328.3.579.2.607Lkmbvrq40581385 2.16.840.1.455175.3.579.2.001Wphyoly60296721 2.16.840.1.438359.3.579.2.531 Umizvgr58206769 2.16.840.1.129035.3.579.2.318Uzdceng19590454 2.16.840.1.034716.3.579.2.080Gsidewt61459472 2.16.840.1.197957.3.579.2.531 Alkhyqu43825884 2.16.840.1.712291.3.579.2.261Bcqaszv86979664 2.16.840.1.589212.3.579.2.715Nwbmbtm23933995 2.16.840.1.255398.3.579.2.531 Social History DateTypeDetailFacilityStart: 02-20-2022 End: 74-61-0027Awwhsqg smoking status NHISSmoker (finding)[facility]: 58-79-8498Qmt Assigned At BirthFeOhioHealth Dublin Methodist HospitalTobaselect [facility] [place] [facility] [place] smoking status NHISTobacco smoking consumption unknown [facility]: 15-05-3749Xae Assigned At BirthNot on fileUpper Valley Medical Centertart: 02-02-2022 End: 30-60-1758Wsxcnfaq to SARS-CoV-2 (event)Not sureUpper Valley Medical Centertart: 10-25-2023 End: 37-90-0473Aq alcohol useNo alcohol useMagruder HospitalComment on above:11-25;Start: 10-25-2023 End: 99-70-4448Wjxrgiz Health Questionnaire 2 item (PHQ-2) [Reported][facility]: 01-04-2023 End: 76-81-3279Mfiti Depression Screening Kiekvinxfd1Aayshsixb ClinicStart: 03-20-2024 End: 46-76-2612Pkdytpx smoking status NHISSmokes tobacco dailyMagruder Hospital Start: 41-13-5372Icxhzrk of tobacco useCigarette SmokerUpper Valley Medical Centertart: 03-20-2024 End: 91-37-2939Mnpobso use and exposureSmokeless tobacco non-userUpper Valley Medical Centertart: 60-59-3723Thopnjt intakeEx-drinker (finding)[facility]: 38-32-1247Nrfthdu CommentPatient states she was formerly smoking 6 packs per day until 2020. Has cut down to 1.5-2 packs perday now.[facility]: 03-23-2024 End: 79-62-7089Odplwwxks beverage intakeLifetime non-drinker (finding)[facility] Work Phone: Start: 10-04-2024 End: 34-30-1948CvyLmpiba (finding)[facility]: 36-39-2149Vhlhre identityIdentifies as female gender (finding)[facility] Start: 73-72-3025Hlkzzq orientationHeterosexual (finding)[facility] HealthcareStart: 92-58-0822Adjsdga smoking status NHISOccasional tobacco smokerUnTriHealth [facility] Work Phone: Start: 03-20-2025 End: [id number] smoking status NHISNever smoked tobacco (finding) [facility] HospitalNE[facility]: [facility]: [facility]ed [facility] Medical Equipment Procedure CodeEquipment CodeEquipment Original TextEquipment IdentifierDates twice daily. TEST TWICE [id number]: [id number] on above:twice daily. TEST TWICE DAILY Goals DatePatient GoalDesired Activity/StatePersonal health goal Functional Status Oe[id number] - suicide severity rating scale screener - recent [C-SSRS][facility] Work Phone: Clinical Notes 03-06-2022 to 09-27-2025 Note Date & [id number] NoteHNO ID: [id number] Author: EULALIA FUENTES DPM Service: ? Author Type: Physician Type: Progress Notes Filed: 09/27/2025 10:10 Note Text: This 40 year old female presents today for post-op visit. Gary Vigil Date of service: September 27, 2025 Pain Scales: Verbal (Numeric Rating or Visual Analog Scale) Pain Level: 10 Pain Location: Toe Description: Aching, Contraction, Cramping, Cutting, Incision, Itching, Numbness, Sharp, Shooting, Sore, Spasm, Stabbing, Stiffness, Tenderness, Throbbing, Tightness Duration Amount of Time: 3 Duration Units: Weeks (post op) Frequency: Continuous Intervention/Comfort measure: Cold, Massage, Pillow support, Positioning, Rocking/holding Comments: She is here for a 3 week post op of bilateral foot. Surgery performed on 09/09/25. HPI: Patient presents for postop follow up. Denies nausea, vomiting, fever, chills, sweats, shortness of breath. No new complaints. Pain controlled. Some pain at second toe amputation RIGHT FOOT O: Neurovascular status is grossly intact. Surgical site without signs of infection, no dehisence. Incisions well coapted. No pain out of proportion. Calf soft non tender, no evidence of Deep Venous Thrombosis. A: Progressing well post op P: Sutures removed. Continue protective measures for the next several days until complete healing and resolution of all symptoms. Plan return to work this SaturdaySeptember 29 Activity as tolerated if no symptoms Return to the office PRN. I gave out my personal mobile telephone number [phone] to call at anytime if needed. [facility]LL[facility]Ohio[facility] NoteHNO ID: [id number] Author: EULALIA FUENTES DPM Service: ? Author Type: Physician Type: Progress Notes Filed: 09/14/2025 11:25 Note Text: This 40 year old female presents today for post-op visit. Date of service: September 14, 2025 Patient presents with: Left Foot - Established Patient, Post Op Right Foot - Established Patient, Post Op /Pain Scales: Verbal (Numeric Rating or Visual Analog Scale) Pain Level: 10 Pain Location: (leeroy foot) Description: /, Aching, Contraction, Cramping, Cutting, Dressing Change, Incision, Itching, Numbness, Sharp, Shooting, Sore, Spasm, Stabbing, Stiffness, Tenderness, Throbbing, Tightness, Tingling, Wound Duration Amount of Time: 1 Duration Units: Weeks (post op) Frequency: Continuous Intervention/Comfort measure: Medication, Cold Comments: She is here for a 1 week post op of bilateral foot. Surgery performed on 09/09/25. HPI: Patient presents for postop follow up. Patient has been doing well with minimal discomfort. Denies nausea, vomiting, fever, chills, sweats, shortness of breath. No new complaints. O: Neurovascular status is grossly intact. Surgical site without signs of infection, no dehisence. Moderate residual edema consistent with surgical intervention. Incisions well coapted. No pain out of proportion. Alignment good. ROM as expected. Calf soft nontender, no signs of Deep Venous thrombosis. A: Progressing well post op P: Continue protective measures with support. New sterile dressings applied, post op shoe to allow very limited weight bearing. Return to the office in 2 weeks for reevaluation or sooner should problems arise. Call if any problems arise prior to next visit. I gave out my personal mobile telephone number [phone] to call at anytime if needed. 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 Eulalia Fuentes D.P.M.[facility]09-16-2025 Telephone encounter Note* Telephone Encounter - Sugar Gibbs - 08/10/2025 11:13 AM EDT ----- Message from Eulalia Fuentes DPM sent at 08/10/2025 10:44 AM EDT ----- Surgical Plan: RIGHT and LEFT FOOT Phenol partial matrixectomy of toenail second toe 19022 MAC (Monitored Anesthesia Care - IV sedation) 1 hour Special equipment needed Phenol E11.42 Type 2 diabetes mellitus with diabetic polyneuropathy, unspecified whether longshore equipment operator insulinuse (HCC) (primary encounter diagnosis) R26.2 Difficulty walking Z68.39 BMI 39.0-39.9,adult M21.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, left R52, L90.5 Painful scar L60.8 Acquired dysmorphic toenail M79.674, M79.675 Pain in toes of both feet [facility] Work Phone: 1(564) 716-797409-16-2025 Miscellaneous Notes* Telephone Encounter - Sugar Gibbs - 08/10/2025 11:13 AM EDT ----- Message from Eulalia Fuentes DPM sent at 08/10/2025 10:44 AM EDT ----- Surgical Plan: RIGHT and LEFT FOOT Phenol partial matrixectomy of toenail second toe 96873 MAC (Monitored Anesthesia Care - IV sedation) 1 hour Special equipment needed Phenol E11.42 Type 2 diabetes mellitus with diabetic polyneuropathy, unspecified whether half-way insulinuse (HCC) (primary encounter diagnosis) R26.2 Difficulty walking Z68.39 BMI 39.0-39.9,adult M21.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 Author Type: Physician Type: Progress Notes Filed: 08/10/2025 10:45 Note Text: Patient Visit for Gary Vigil 1985 40 year old female SUBJECTIVE: Chief Complaint: Patient presents with: Left Foot - Established Patient, Follow Up Right Foot - Established Patient, Follow Up Pain Scales: Verbal (Numeric Rating or Visual Analog Scale) Pain Level: 10 Pain Location: Foot-Left Description: Aching, Burning, Cramping, Crushing, Numbness, Pressure, Raw, Sharp, Shooting, Sore, Spasm, Stabbing, Stabbing/Not Incision, Throbbing, Tightness Duration Units: Months Frequency: Continuous Intervention/Comfort measure: Massage, Pillow support, Positioning Comments: She is here for a follow up of bilateral foot. Additional HPI: Complains of chronic painful second toenails bilateral Complains of recurrent hyperkeratosis plantar LEFT forefoot Stands on feet at work all day now at [employer] PCP: No primary care provider on file. [...] No family history on file. SOCIAL HISTORY[1] Tobacco Use: Types: Cigarettes REVIEW OF SYSTEMS: The remainder of the ROS was reviewed with the patient and is negative except as noted. OBJECTIVE: General: Pleasant in no acute distress Lower extremity exam: Vascular exam: Normal vascular exam, palpable pluses with brisk capillary fill Neurological exam: Normal neurological exam, gross epicritic sensation intact Dermatological exam: Dystrophic toenails second toe bilateral hypertrophic Deep hyperkeratosis with tenderness to palpation plantar fourth metatarsal head LEFT FOOT Normal exam without rashes or lesions of skin. No evidence of evidence of petechiae, purpura, telangiectasia Musculoskeletal exam: Pes plano valgus deformity Gross overall Manual muscle strength evaluation relatively intact LABS: Most recent labs reviewed LABORATORY STUDIES: Recent Labs 03/20/24 1053 HBA1C 8.2* ASSESSMENT: E11.42 Type 2 diabetes mellitus with diabetic polyneuropathy, unspecified whether half-way insulin use (HCC) (primary encounter diagnosis) R26.2 Difficulty (more content not included)...[facility] 08-10-2025 History of Present illness Narrative* Eulalia Fuentes DPM - 08/10/2025 10:30 AM EDT Patient Visit for Gary Vigil 1985 40 year old female SUBJECTIVE: Chief Complaint: Patient presents with: Left Foot - Established Patient, Follow Up Right Foot - Established Patient, Follow Up Pain Scales: Verbal (Numeric Rating or Visual Analog Scale) Pain Level: 10 Pain Location: Foot-Left Description: Aching, Burning, Cramping, Crushing, Numbness, Pressure, Raw, Sharp, Shooting, Sore, Spasm, Stabbing, Stabbing/Not Incision, Throbbing, Tightness Duration Units: Months Frequency: Continuous Intervention/Comfort measure: Massage, Pillow support, Positioning Comments: She is here for a follow up of bilateral foot. Additional HPI: Complains of chronic painful second toenails bilateral Complains of recurrent hyperkeratosis plantar LEFT forefoot Stands on feet at work all day now at [employer] PCP: No primary care provider on file. [...] 50 mg by mouth daily at bedtime. [employer] ULTRA TEST test strip twice daily. TEST [...] No family history on file. SOCIAL HISTORY[1] Tobacco Use: Types: Cigarettes REVIEW OF SYSTEMS: The remainder of the ROS was reviewed with the patient and is negative except as noted. OBJECTIVE: General: Pleasant in no acute distress Lower extremity exam: Vascular exam: Normal vascular exam, palpable pluses with brisk capillary fill Neurological exam: Normal neurological exam, gross epicritic sensation intact Dermatological exam: Dystrophic toenails second toe bilateral hypertrophic Deep hyperkeratosis with tenderness to palpation plantar fourth metatarsal head LEFT FOOT Normal exam without rashes or lesions of skin. No evidence of evidence of petechiae, purpura, telangiectasia Musculoskeletal exam: Pes plano valgus deformity Gross overall Manual muscle strength evaluation relatively intact LABS: Most recent labs reviewed LABORATORY STUDIES: Recent Labs 03/20/24 1053 HBA1C 8.2* ASSESSMENT: E11.42 Type 2 diabetes mellitus with diabetic polyneuropathy, unspecified whether half-way insulinuse (HCC) (primary encounter diagnosis) R26.2 Difficulty walking Z68.39 BMI 39.0-39.9,adult M21.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, left R52, L90.5 Painful scar L60.8 Acquired dysmorphic toenail M79.674, M79.675 Pain in toes of both feet PLAN: Explained to the patient etiology and treatment plan. Treatment options discussed at length In order to perform a complete physical exam, hyperkeratosis removed plantar LEFT forefoot with #15scalpel blade was performed. This incidental service is integral to the evaluation and management visit in order to appropriately manage and treat the patient (for their complaint or for this visit). Fit and dispense size 11 Power Step Protech OTC insoles Regarding dystrophic toenail second toe bilateral Treatment options discussed at length Risks Benefits Alternatives relative to procedure discussed Patient is very anxious about any in office procedure / injections Surgical Plan: RIGHT and LEFT FOOT Phenol partial matrixectomy of toenail second toe 43334 MAC (Monitored Anesthesia Care - IV sedation) Special equipment needed Phenol .42 Type 2 diabetes mellitus with diabetic polyneuropathy, unspecified whether half-way insulinuse (HCC) (primary encounter diagnosis) R26.2 Difficulty walking Z68.39 BMI 39.0-39.9,adult M21.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, left R52, L90.5 Painful scar L60.8 Acquired dysmorphic toenail M79.674, M79.675 Pain in toes of both feet All questions were answered. Gary Vigil appeared to be well informed. Greater than 50% of the visit was spent face to face counseling and/or coordinating care for the patient. Eulalia Fuentes DPM [1] Social History Tobacco Use Smoking status: Every Day Types: Cigarettes Start date: 1999 Smokeless tobacco: Never Tobacco comments: Patient states she was formerly smoking 6 packs per day until 2020. Has cut down to 1.5-2 packs perday now. Substance Use Topics Alcohol use: Not Currently Drug use: Not Currently documented [facility]09-[facility] History of Present illness Narrative* CORIE Chu - 08/04/2025 2:40 PM EDT Reason for Appointment: Patient ID: Gary Vigil is a 40 y.o. female who presents for Consult (Pt present today to discuss Left ovary pain.) Patient presents today for Follow up appointment to discuss results. MEDICATIONS Current Outpatient Medications Medication Instructions Acetaminophen [...] inclusion cyst 07/12/2025 Left buttock abscess 07/12/2025 Resolved Ambulatory Problems Diagnosis Date Noted No [...] plasty to left plantar foot. Dr Sawyer GrajedaPMich. CHOLECYSTECTOMY 06/17/2016 CYSTOSCOPY 08/28/2023 DILATION AND CURETTAGE [...] peroneal nerve release to LLE Dr Sawyer GrajedaPMich. ROBOTIC ASSISTED HYSTERECTOMY 08/28/2023 SALPINGECTOMY Bilateral 08/28/2023 [...] Objective: Physical Exam Constitutional: Appearance: Normal appearance. Genitourinary: Right Adnexa: not tender and no mass present. Left Adnexa: not tender and no mass present. No cervical discharge. Breasts: Breasts are soft. Right: Normal. Left: Normal. HENT: Head: Normocephalic. Nose: Nose normal. Mouth/Throat: Mouth: Mucous membranes are moist. Cardiovascular: Rate and Rhythm: Normal rate. Pulmonary: Effort: Pulmonary effort is normal. Abdominal: General: Bowel sounds are normal. Palpations: Abdomen is soft. Musculoskeletal: General: Normal range of motion. Cervical back: Normal range of motion. Neurological: General: No focal deficit present. Mental Status: She is alert. Skin: General: Skin is warm and dry. Psychiatric: Mood and Affect: Mood normal. Vitals and nursing note reviewed. Exam conducted with a script manager present. Vitals: Estimated body mass index is 34.06 kg/m as calculated from the following: Height as of 06/18/25: 5' 6 . Weight as of this encounter: 211 lb. BP: 124/78 No LMP recorded (lmp unknown). Patient has had a hysterectomy. ASSESSMENT & PLAN ICD-10-CM 1. Encounter for consultation Z71.9 Pt US discussed. Pt states she continues to have left lower quadrant pain and wishes to have left ovary removed. Patient has had previous right ovary and uterus removed. Pt wishes to discuss surgicaloptions with DR Montano for left oophrectomy Documented by CORIE Chu on behalf of: CORIE Chu documented in this encounterPerry County Memorial [id number] Hospital Discharge instructions* Discharge Instructions* Alex Cid PA-C - 07/28/2025 6:40 PM EDT Your chest x-ray was negative. Your blood work also looked very good. Your COVID and flu swabs werenegative however, these can commonly be negative even when they are actually positive. Medications were sent to her pharmacy to manage her symptoms moving forward. Stay hydrated and rest. Return to the emergency department for any new or worsening symptoms. [facility] Work Phone: 1(404) 210-476009-03-2025 Emergency department Triage note* Albino Garcia RN - 07/28/2025 2:51 PM EDT Patient to ED with c/o flu symptoms x Saturday. C/o sob, cough, congestion. Hx HTN, DM2, migraines,fibromyalgia, asthma. [facility] Work Phone: 1(878) 577-802909-03-2025 Emergency department Note* Albino Garcia RN - 07/28/2025 2:51 PM EDT Patient to ED with c/o flu symptoms x Saturday. C/o sob, cough, congestion. Hx HTN, DM2, migraines,fibromyalgia, asthma. [facility] in [facility]Mem[facility] Work Phone: 1(236) 451-621908-18-2025 History of Present illness Narrative* Derek Servin MD - 07/12/2025 11:30 AM EDT Images from the original note were not included. The patient is status post excision of 2 left breast, a right breast, left buttock, right buttock lesions. All of the pathology revealed epidermal inclusion cyst. The patient has pain from sutures placed in the left buttock. The patient also developed a new lesion in the proximal medial left buttock which is sore and has had a little bit of drainage. This started about 2 days ago. On examination, she is awake alert and in no acute distress. All the incision sites are clean and dry without evidence of infection. The sutures from the left buttock were removed and dry dressings placed. Superior to this area, there is a small raised pimple like area with some drainage. There is some tenderness to this area. 1. Epidermal inclusion cyst 2. Left buttock abscess Patient will be started on antibiotics for left buttock abscess. She will follow up in about 10 days. The patient does not have a primary care physician. documented in this encounterPerry County Memorial HospitalJzviekvfap99-17-0157 Radiology Diagnostic study [facility] [place] [address] Ultrasound Report Signed Patient: Gary Vigil MR#: [id number] : 1985 Acct:[id number] Age/Sex: 40 / F ADM Date: 5 Loc: Room: Type: [facility] Attending Dr: WENDY Nuno APRNC Ordering Provider: Kelsea Joseph APRN, CNP Date of Service: 06/28/25 US/US pelvic complete: R10.2 ([id number]) US/US transvaginal: R10.2 Copies to: Kelsea Joseph APRN, CNP~ Pelvic ultrasound. Reason for exam: Pelvic pain with urination. Comparison: Ultrasound 04/24/2024 Technique: Transabdominal imaging of the uterus and ovaries was performed. Transvaginal imaging of the uterus and ovaries was also obtained. Additional spectral Doppler analysis of the ovaries was also obtained. Findings: Uterus has been removed. Right ovary has been removed. Left ovary measures 2.7 x 1.8 x 2.7 cm without evidence of mass or cyst. Normal arterial and venous Doppler waveforms. No free fluid. US/US transvaginal Impression: Unremarkable pelvic ultrasound. Impression dictated by: Raymon Ruelas Jr., D.OJey 06/28/2025 2:03 PM Dictation Location: [place] [address] Tech: Taty Lerner Transcribed By: DESHAWN 06/28/25 1403 Dictated By: Raymon Ruelas Jr, DO 06/28/25 1356 Signed By: 06/28/[address] [facility]07-25-2025 History of Present illness Narrative * Derek Servin MD - 06/18/2025 10:00 AM EDT Images from the original note were not included. Gary Reynoso Vigil 1985 [place] Vigil is a 40 y.o. female presents with chief complaint of Follow-up (Lt breast wound- past '22 pt- Also has a spot on Left buttock and Right hip. Has gone to the ER several times and theyhave referred her back to us for evaluation.) HPI: The patient is a 40-year-old female who presents with a few lesions. She had developed a left breast abscess for which she went to the emergency room last week. She has also had a left buttocks abscess/ mass which appeared recently. She has had a right lower back/buttock mass which has been presentfor some time but has been enlarging. The patient has history of previous abscesses and likely hidradenitis. She is diabetic. She has lost about 100+ lb over the last few years secondary to medications. SUBJECTIVE: MEDICATIONS: ALLERGIES Current Outpatient Medications Medication Instructions Acetaminophen Extra [...] Ventolin HFA 108 (90 Base) MCG/ACT inhaler Allergies Allergen Reactions Tramadol Anaphylaxis and Unknown Other Reaction(s): Comments: Heart Stops Other Reaction(s): Other, Unknown Other Reaction(s): Anaphylaxis STOPS HEART Ketorolac Hives Other Reaction(s): Dermatitis Comments: Hives Other Reaction(s): Anaphylaxis Prednisone Hives and Unknown Other Reaction(s): angry rage Other Reaction(s): Agitation, extreme somnolence, Other, Unknown Other Reaction(s): Agitation, extreme somnolence MAKES ME CRAZY PAST MEDICAL HISTORY: SOCIAL HISTORY SURGICAL HISTORY: Past Medical History: Diagnosis Date Abdominal cramping [...] Topics Alcohol use: Never Drug use: Never Past Surgical History: Procedure Laterality Date ABLATION [...] of painful hardware, peroneal nerve release to OMA Jacques D.P.M. ROBOTIC ASSISTED HYSTERECTOMY 08/28/2023 SALPINGECTOMY Bilateral 08/28/2023 TUBAL LIGATION Bilateral 2009 division of fallopian tubes TUMOR REMOVAL 2016 abdominal REVIEW OF SYMPTOMS: Review of Systems Constitutional: Negative for fever. Respiratory: Negative for shortness of breath. Gastrointestinal: Positive for constipation. Negative for abdominal pain. Genitourinary: Negative for difficulty urinating. Skin: Positive for wound. Neurological: Negative for syncope. OBJECTIVE: Visit Vitals Ht 5' 6 Wt 203 lb LMP (LMP Unknown) Comment: still bleeding non stop BMI 32.77 kg/m OB Status Hysterectomy Smoking Status Every Day BSA 2.07 m Physical Exam Exam conducted with a script manager present. Constitutional: General: She is not in acute distress. HENT: Head: Atraumatic. Eyes: General: No scleral icterus. Cardiovascular: Rate and Rhythm: Normal rate and regular rhythm. Pulmonary: Breath sounds: Normal breath sounds. Chest: Comments: In the medial left breast, there are a couple open areas with underlying firmness and some light erythema. On compressing, no drainage is noted. There is also a small skin mass of the breast in the upper inner portion of the left breast. This measures less than 1 cm. Abdominal: General: There is no distension. Palpations: Abdomen is soft. Tenderness: There is no abdominal tenderness. Skin: General: Skin is warm and dry. Comments: In the left buttock region, there is an approximate 1 cm slightly raised firm mass. Currently, no open areas or erythema are noted. In the right lower back, there is a firm, darkly pigmented rounded skin lesion measuring about 8 mm. No ulceration is noted. Neurological: Mental Status: She is alert. ASSESSMENT AND PLAN: Assessment/Plan Diagnoses and all orders for this visit: Left breast abscess Mass of upper inner quadrant of left breast Mass of buttock Neoplasm of uncertain behavior of skin of back Type 2 diabetes mellitus without complication, without long-term current use of insulin (HCC) Patient is completing her course of antibiotics from the emergency room. Plan will be to incise anddrain and possibly excise the left breast abscess site. Also, the skin mass at the upper inner portion of the left breast may be excised. Plan also would be to excise the skin lesion of the right lower back as well as the mass of the left buttock. The procedures, benefits, risks including risks of bleeding, infection, wound healing problems discussed. Patient may require dressing changes for the left breast if there is active infection at the time of surgery. Patient currently does not have a primary care provider. documented in this encounterPerry County Memorial HospitalVjtdipkzkn37-51-2808 Radiology Diagnostic study [facility] [place] [address] [place] [address] Ultrasound Report Signed Patient: Gary Vigil MR#: [id number] : 1985 Acct:[id number] Age/Sex: 40 / F ADM Date: 5 Loc: [place] Room: Type: [facility] Attending Dr: Kelsea Joseph APRN, NP-C Ordering Provider: Kelsea Joseph APRN, CNP Date of Service: 06/16/25 MM/MM diagnostic mammo BI w/CAD: N64.4 ([id number]) US/US breast LT limited: ABNORMAL MAMM LEFT Copies to: Kelsea Joseph APRN, CNP~ DIAGNOSTIC BILATERAL MAMMOGRAM - FULL FIELD DIGITAL WITH TOMOSYNTHESIS CLINICAL DATA: Pain Craniocaudal and mediolateral oblique views of the () breast were obtained using low-dose digital technique. Comparison is made to prior studies from 2022. This examination was reviewed with the aid [...] BREAST 7:00 QUESTION DUE TO CELLULITIS OR SUBCUTANEOUSPROCESS. RECOMMEND 3 MONTH FOLLOW-UP FOLLOWING WITH ANTIBIOTIC THERAPY. DERMATOLOGICAL CONSULTATION COULD ALSO BE CONSIDERED. RESULT CODE: 3 Probably Benign Finding Short Term Follow-Up DENSITY CODE: 2 (approximately 25-50% glandular) There are scattered areas of fibroglandular density. FOLLOW UP: 3M The false-negative rate of mammography is approximately 10-percent. Management of a palpable abnormality must be based on clinical grounds. Impression dictated by: Jan Maddox M.D. 06/16/2025 2:25 PM Dictation Location: [facility] Tech: Paola Putnam; Nannette Martin Transcribed By: DESHAWN 06/16/25 142 Dictated By: Jna Maddox MD 06/16/251422 Signed By: 06/16/[address] [facility] Work Phone: 1(238) 501-732107-19-2025 Hospital Discharge instructions Additional Instructions Warm compresses several times a day to area affected Take antibiotic as instructed until gone Tylenol or Naprosyn if needed for pain Avoid picking, poking, popping area affected Follow-up with general surgery/PCP for recheck in the next 3 to 5 days [facility] Work Phone: 1(464) 559-733006-30-2025 History of Present illness Narrative* Kelsea Joseph, NELLIE - 05/24/2025 11:00 AM EDT Reason for Appointment: Patient ID: Gary Vigil [...] tablet by mouth three times a day withfood Ventolin HFA 108 (90 Base) MCG/ACT inhaler [...] plasty to left plantar foot. Dr Sawyer GrajedaPMich. CHOLECYSTECTOMY 06/17/2016 CYSTOSCOPY 08/28/2023 DILATION AND CURETTAGE [...] peroneal nerve release to LLE Dr Sawyer GrajedaPMich. ROBOTIC ASSISTED HYSTERECTOMY 08/28/2023 SALPINGECTOMY Bilateral 08/28/2023 [...] nursing note reviewed. Exam conducted with a script manager present. Vitals: Estimated body mass index is 32.2 kg/m as calculated from the following: Height as of 7/18/24: 5' 6 . Weight as of this [...] is to return in one year for annualunless needed otherwise. Documented by Kelsea Joseph NP on behalf of: CORIE Chu documented in this encounterPerry County Memorial [id number] History of Present illness Narrative* Kelsea Joseph NP - 05/03/2025 11:10 AM EDT Reason for Appointment: Patient ID: Gary Vigil is a 39 y.o. female who presents for Pelvic Pain (Pt present today forpelvic and lower back pain. Pt complains of [...] tablet by mouth three times a day withfood Ventolin HFA 108 (90 Base) MCG/ACT inhaler [...] disorder Cervicitis Depression (CMS/HCC) Depression (CMS/HCC) Diabetes ([facility]) Diabetic peripheral neuropathy associated with type 2 diabetes mellitus ([facility]/HCC) Fibromyalgia H/O psychiatric care Heart disease History of high blood pressure History of migraine headaches Hypercholesterolemia ([facility]/HCC) Hyperkalemia Hyperlipidemia ([facility]/HCC) Hypertension ([facility]/HCC) IBS (irritable bowel syndrome) Kidney disease Liver disease Menorrhagia Mood disorder ([facility]/HCC) Neuritis Obesity Smoker Thyroid disease ([facility]/HCC) Trichimoniasis Vaginal itching HISTORY PAST MEDICAL HISTORY SOCIAL HISTORY Past Medical History: Diagnosis Date Abdominal cramping Abnormal uterine bleeding Anemia Anxiety Asthma Bipolar disorder Cervicitis Depression ([facility]/HCC) Depression ([facility]/HCC) Diabetes ([facility]) Diabetic peripheral neuropathy associated with type 2 diabetes mellitus ([facility]/HCC) Fibromyalgia H/O psychiatric care Heart disease History of high blood pressure History of migraine headaches Hypercholesterolemia ([facility]/HCC) Hyperkalemia Hyperlipidemia ([facility]/HCC) Hypertension ([facility]/HCC) IBS (irritable bowel syndrome) Kidney disease Liver disease Menorrhagia Mood disorder ([facility]/HCC) Neuritis Obesity Smoker Thyroid disease ([facility]) Trichimoniasis Vaginal itching Social History Tobacco Use [...] plasty to left plantar foot. Dr Sawyer Burris.P.M. CHOLECYSTECTOMY 06/17/2016 CYSTOSCOPY 08/28/2023 DILATION AND CURETTAGE [...] nursing note reviewed. Exam conducted with a script manager present. Vitals: Estimated body mass index is 32.44 kg/m as calculated from the following: Height as of 7/18/24: 5' 6 . Weight as of this [...] is sent to her pharmacy. Documented by Kelsea Joseph NP on behalf of: Rigoberto Montano DO documented in this encounterPerry County Memorial [id number] Radiology Diagnostic study [facility] [place] [address] [place] [address] CT Scan Report Signed Patient: Gary Vigil MR#: [id number] : 1985 Acct:[id number] Age/Sex: 39 / F ADM Date: 5 Loc: ER Room: Type: PRE ER Attending Dr: Copies to: Miquel Andrews PA-C~ Ordering Provider: Miquel Andrews PA-C Date of Service: 02/10/25 CT/CT abdomen pelvis wo con: right side pain CT ABDOMEN AND PELVIS WITHOUT INTRAVENOUS CONTRAST: CLINICAL HISTORY: Right-sided abdominal pain COMPARISON: 10/23/2023 TECHNIQUE: Spiral images were obtained through the abdomen and pelvis without intravenous contrast.This CT exam was performed using one or [...] Jan Maddox M.D.02/10/2025 3:41 PM Dictation Location: [place] [address] Transcribed By: [facility] 02/10/25 1541 Dictated By: Jan Maddox MD 02/10/25 1538 Signed By: 02/10/[address] [facility] Work Phone: 1(468) 382-248402-17-2025 History of Present illness Narrative* Krystal Koehler MD - 01/11/2025 10:00 AM EST This is a 6-month follow-up visit. Patient [...] dyspnea dependent edema or claudication TIA or CVAtype symptoms or bleeding diathesis she is now [...] my direction and personally dictated by me. Lamine reviewed the chart and agree that the record accurately reflects my personal performance of the history, physical exam, discussion and plan. Scribe Attestation By signing my name below, I, Gillian Roman LPN attest that this documentation has been prepared under the direction and in the presence of Krystal Koehler MD. documented in [facility]Mem[facility] System Work Phone: 1(116) 682-924402-17-2025 Instructions* Patient Instructions* Malia Valdivia LPN - 01/11/2025 10:00 AM [...] Provided instructions on exercise. documented in this encounterMemorial [facility] System Work Phone: 1(484) 690-643402-10-2025 NoteHNO ID: [id number] Author: EULALIA FUENTES DPM Service: ? Author [...] hyperkeratosis Dystrophic toenails bilate (more content not included)...[facility]02-10-2025 History of Present illness Narrative* Eulalia FuentesWILL - 01/04/2025 10:28 AM EST Patient Visit for Gary Vigil 1985 39 [...] 2020. Has cut down to 1.5-2 packs perday now. Substance Use Topics Alcohol use: Not [...] patient. Eulalia Fuentes DPM documented in this encounterMagruder Hospital01-10-2025 NoteHNO ID: [id number] Author: EULALIA FUENTES DPM Service: ? Author Type: Physician Type: Progress Notes Filed: 12/04/2024 12:01 Note Text: Patient Visit for Gary Vigil [...] in a CD X-ray of feet from [facility] PCP: No primary care provider on [...] of multiple deep hyperkeratosi (more content not included)...[facility]01-10-2025 History of Present illness Narrative* Eulalia Fuentes DPM - 12/04/2024 11:43 AM EST Patient Visit for Gary Vigil 1985 39 [...] in a CD X-ray of feet from [facility] PCP: No primary care provider on [...] 50 mg by mouth daily at bedtime. Quik.io ULTRA TEST test strip twice daily. TEST [...] 2020. Has cut down to 1.5-2 packs perday now. Substance Use Topics Alcohol use: Not [...] limited symptoms All questions were answered. Gary [place] Vigil appeared to be well informed. Greater than 50% of the visit was spent face to face counseling and/or coordinating care for the patient. Eulalia Fuentes DPM documented in this encounterMagruder Hospital11-11-2024 NoteHNO ID: [id number] Author: EULALIA FUENTES DPM Service: ? Author [...] 50 mg by mouth daily at bedtime. Quik.io ULTRA TEST test strip twice daily. TEST [...] hallux valgus surgery Depress (more content not included)...[facility]11-11-2024 History of Present illness Narrative* Eulalia Fuentes DPM - 10/05/2024 1:38 PM EST Patient Visit for Gary Vigil 1985 39 [...] 2020. Has cut down to 1.5-2 packs perday now. Substance Use Topics Alcohol use: Not [...] mellitus), type 2 with neurological complications ([facility]) M79.2 Neuralgia of left lower extremity M25.572, [...] patient. Eulalia Fuentes DPM documented in this encounterMagruder Hospital10-07-2024 History of Present illness Narrative* Eulalia Fuentes DPM - 08/31/2024 10:35 AM EDT Patient Visit for Gary Vigil 1985 39 [...] 50 mg by mouth daily at bedtime. Quik.io ULTRA TEST test strip twice daily. TEST [...] 2020. Has cut down to 1.5-2 packs perday now. Substance Use Topics Alcohol use: Not [...] patient. Eulalia Fuentes DPM documented in this encounterMagruder Hospital09-13-2024 Telephone encounter Note * Telephone Encounter - Heavenly Dao - 08/07/2024 8:53 AM EDT Type of form: Short-term Disability Form received via walk in When form is completed, Form has been forwarded to handing off form directly to Margie Grubbs [facility]09-13-[facility]24 Miscellaneous Notes* Telephone Encounter - Heavenly Dao - 08/07/2024 8:53 AM EDT Type of form: Short-term Disability Form received via walk in When form is completed, Form has been forwarded to handing off form directly to Margie Grubbs documented in this encounterMagruder Hospital09-09-2024 Telephone encounter Note * Telephone Encounter - Margie Pa OCCA - 08/03/2024 4:59 PM EDT Form was obtained in [place]. It is being scanned into the chart and will be completed and faxed outtomorrow. [facility]09-09-[facility] Miscellaneous Notes* Telephone Encounter - Margie Pa OCCA - 08/03/2024 4:59 PM EDT Form was obtained in [place]. It is being scanned into the chart and will be completed and faxed outtomorrow. * Telephone Encounter - Margie Pa OCCA - 08/03/2024 4:40 PM EDT Called and informed patient we have not received a new fax from [employer]. She informed me they sentone 2 days ago and she sent one from her local library today. Informed patient I will reach out andsee if this paperwork was obtained. * Telephone Encounter - Yelena Momin - 08/03/2024 2:55 PM EDT Patient is calling again asking if you received the fax she sent today as mentioned below. Patient is asking for a call back today as she has not heard back since early last week. Please advise. * Telephone Encounter - Marley Pereira - 08/03/2024 10:22 AM EDT Patient calling again, advising that she is faxing in paperwork today that she needs filled out forher workplace [employer]. She is including the return fax # with that as well. She is also requesting most recent office notes from 07/22 to be faxed to [employer]. Please advise * Telephone Encounter - Sera Bynum - 07/30/2024 2:41 PM EDT Gary is calling Eulalia Fuentes DPM today with concern regarding dropping off paperwork tomorrow to office & have it filled out right away States this is Medical paperwork for her current workplace Please advise [phone] Patient has been identified by name and birthdate. Duration of symptoms: N/A Person calling: self Call patient at: on cell [phone] (home) [phone] (cell) Was an appointment scheduled: No Closing statement: Results or non-symptom based questions: Thank you for [facility], your call will be returned within the next business day. Sera Bynum documented in this encounterMagruder Hospital09-09-2024 Telephone encounter Note * Telephone Encounter - Margie Pa OCCA - 08/03/2024 4:40 PM EDT Called and informed patient we have not received a new fax from [employer]. She informed me they sentone 2 days ago and she sent one from her local library today. Informed patient I will reach out andsee if this paperwork was obtained. [facility]09-09-[facility] Telephone encounter Note* Telephone Encounter - Yelena Momin - 08/03/2024 2:55 PM EDT Patient is calling again asking if you received the fax she sent today as mentioned below. Patient is asking for a call back today as she has not heard back since early last week. Please advise. [facility]09-09-[facility] Telephone encounter Note* Telephone Encounter - Marley Pereira - 08/03/2024 10:22 AM EDT Patient calling again, advising that she is faxing in paperwork today that she needs filled out forher workplace [employer]. She is including the return fax # with that as well. She is also requesting most recent office notes from 07/22 to be faxed to [employer]. Please advise [facility]09-05-2024 Telephone encounter Note* Telephone Encounter - Sera Bynum - 07/30/2024 2:41 PM EDT Gary is calling Eulalia Fuentes DPM today with concern regarding dropping off paperwork tomorrow to office & have it filled out right away States this is Medical paperwork for her current workplace Please advise [phone] Patient has been identified by name and birthdate. Duration of symptoms: N/A Person calling: self Call patient at: on cell [phone] (home) [phone] (cell) Was an appointment scheduled: No Closing statement: Results or non-symptom based questions: Thank you for [facility], your call will be returned within the next business day. Sera Bynum [facility]09-05-2024 History of Present illness Narrative* CORIE Chu - 07/30/2024 10:40 AM EDT Reason for Appointment: Patient ID: Gary Vigil [...] tablet by mouth three times a day withfood Ventolin HFA 108 (90 Base) MCG/ACT inhaler [...] cramping Abnormal uterine bleeding Anemia Anxiety Asthma ([facility]) Bipolar disorder ([facility]) Cervicitis Depression ([facility]) Depression ([facility]/HCC) Diabetes ([facility]) Diabetic peripheral neuropathy associated with type 2 diabetes mellitus ([facility]) Fibromyalgia H/O psychiatric care Heart disease History of high blood pressure History of migraine headaches Hypercholesterolemia ([facility]) Hyperkalemia Hyperlipidemia ([facility]) Hypertension ([facility]) IBS (irritable bowel syndrome) Kidney disease Liver disease Menorrhagia Mood disorder ([facility]) Neuritis Obesity Smoker Thyroid disease ([facility]) Trichimoniasis Vaginal itching HISTORY PAST MEDICAL HISTORY SOCIAL HISTORY Past Medical History: Diagnosis Date Abdominal cramping Abnormal uterine bleeding Anemia Anxiety Asthma ([facility]) Bipolar disorder ([facility]) Cervicitis Depression ([facility]/HCC) Depression ([facility]) Diabetes ([facility]) Diabetic peripheral neuropathy associated with type 2 diabetes mellitus ([facility]) Fibromyalgia H/O psychiatric care Heart disease History of high blood pressure History of migraine headaches Hypercholesterolemia ([facility]) Hyperkalemia Hyperlipidemia ([facility]/HCC) Hypertension ([facility]) IBS (irritable bowel syndrome) Kidney disease Liver disease Menorrhagia Mood disorder ([facility]) Neuritis Obesity Smoker Thyroid disease ([facility]) Trichimoniasis Vaginal itching Social History Tobacco Use [...] plasty to left plantar foot. Dr Sawyer GrajedaPMich. CHOLECYSTECTOMY 06/17/2016 CYSTOSCOPY 08/28/2023 DILATION AND CURETTAGE [...] peroneal nerve release to LLE Dr Sawyer GrajedaPMich. ROBOTIC ASSISTED HYSTERECTOMY 08/28/2023 SALPINGECTOMY Bilateral 08/28/2023 [...] diagnostic lap, exam benign. Pt incisions healing well,abdomen soft. We will send in [place] for pain. Pathology not yet returned, we will follow up as needed Documented by CORIE Chu on behalf of: CORIE Chu documented in this encounterPerry County Memorial [id number] History of Present illness Narrative* Eulalia Fuentes DPM - 07/22/2024 11:39 AM EDT Gary Vigil 1985 July 22, 2024 HPI: [...] to the evaluation and management visit in orderto appropriately manage and treat the patient (for their complaint or for this visit). Bi laminent PPT insoles custom fabricated and dispensed Home care education and instructions discussed CeraVe topical cream emollient twice daily or equivalent Follow up 1 month Eulalia Fuentes DPM documented in this encounterMagruder Hospital08-16-2024 Telephone encounter Note * Telephone Encounter - Heavenly Dao - 07/10/2024 4:17 PM EDT Type of form: Short-term Disability Form received via fax When form is completed, Form has been forwarded to Dr. Fuentes's mail slot at [facility] check-out Heavenly Grubbs [facility]08-16-2024 Miscellaneous Notes* Telephone Encounter - Heavenly Dao - 07/10/2024 4:17 PM EDT Type of form: Short-term Disability Form received via fax When form is completed, Form has been forwarded to Dr. Fuentes's mail slot at [facility] check-out Heavenly Grubbs documented in this encounterMagruder Hospital08-12-2024 History of Present illness Narrative* Krystal Koehler MD - 07/06/2024 10:00 AM EDT Most recently seen February 2024. Subjective : [...] in 2 hours if unresolved. Do not aaddqd78 mg in 24 hours. rOPINIRole (REQUIP) 1 [...] my direction and personally dictated by me. Lamine reviewed the chart and agree that the record accurately reflects my personal performance of the history, physical exam, discussion and plan. documented in this encounterMemorial Health System Work Phone: 1(496) 911-130208-12-2024 Instructions* Patient Instructions* Marlys Mari LPN - 07/06/2024 10:00 AM [...] from a cardiac standpoint documented in this [facility] Work Phone: 1(834) 582-613107-30-2024 History of Present illness Narrative* Eulalia FuentesWILL - 06/23/2024 1:45 PM EDT This 39 year old female presents today for post-op visit. Gary Vigil Date of service: June 23, 2024 Patient presents with: Left Foot - Established Patient, Post Op Pain Scales: Verbal (Numeric Rating or Visual Analog Scale) Pain Level: 10 Pain Location: Foot-Left Description: Aching, Cramping, Cutting, Incision, Numbness, Pressure, Sharp, Shooting, Sore, Spasm,Stabbing, Tenderness, Throbbing, Tightness, Tingling Duration Amount of [...] gave out my personal mobile telephone number [phone] to call at anytime if needed. 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 Social : daughter is getting Aug 21 Eulalia Fuentes DPM documented in this encounterMagruder Hospital07-15-2024 History of Present illness Narrative* Eulalia Fuentes DPM - 06/08/2024 3:46 PM EDT Technical difficulty with virtual visit today. Virtual visit converted to telephone call. Follow up call to patient Still having symptoms plantar foot at site of surgery She will come in for in person visit as soon as possible. Eulalia Fuentes DPM documented in this encounterMagruder Hospital07-12-2024 Telephone encounter Note * Telephone Encounter - Margie Pa OCCA - 06/05/2024 2:00 PM EDT Called and left a voicemail switched appointment to virtual. [facility]-12-2024 Miscellaneous Notes* Telephone Encounter - Margie Pa OCCA - 06/05/2024 2:00 PM EDT Called and left a voicemail switched appointment to virtual. * Telephone Encounter - Alma Jimenez RN - 06/05/2024 1:28 PM EDT -Pt Verified by Name and Date of -pt calling to report has 'knot' under left pinkie toe that is sore to touch. Pt just noticed recently. -pt has OV 06/08/24 and will discuss with provider. -pt also thought she was able to do VV.--please advise when pt seen on 06/08/24. documented in this encounterMagruder Hospital07-12-2024 Telephone encounter Note * Telephone Encounter - Alma Jimenez RN - 06/05/2024 1:28 PM EDT -Pt Verified by Name and Date of -pt calling to report has 'knot' under left pinkie toe that is sore to touch. Pt just noticed recently. -pt has OV 06/08/24 and will discuss with provider. -pt also thought she was able to do VV.--please advise when pt seen on 06/08/24. [facility]06-26-[facility] History of Present illness Narrative* Eulalia Fuentes DPM - 05/20/2024 4:11 PM EDT This 38 year old female presents today [...] ointment for next few weeks to reduce bleinda Staphylococcus aureus colonization inflammation , reduce scar I gave out my personal mobile telephone number [phone] to call at anytime if needed. 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 Recommend off work for now due to delayed healing, post operative pain Diabetes related delayed healing Eulalia Fuentes DPM documented in this encounterMagruder Hospital06-18-2024 Telephone encounter Note * Telephone Encounter - Margie Pa OCCA - 05/12/2024 10:05 AM EDT spoke with the patient on the phone and provided guidance and treatment options. Instructedpatient to go to the emergency room if symptoms worse and she is schedule to be seen by the provider next week. [facility]06-18-2024 Miscellaneous Notes* Telephone Encounter - Margie Pa OCCA - 05/12/2024 10:05 AM EDT spoke with the patient on the phone and provided guidance and treatment options. Instructedpatient to go to the emergency room if symptoms worse and she is schedule to be seen by the provider next week. * Telephone Encounter - Betsy Doty RN - 05/11/2024 3:43 PM EDT Pt calls 6-7 foot surgery noted C/o [...] to assist with above documented in this encounterMagruder Hospital06-17-2024 Telephone encounter Note * Telephone Encounter - Betsy Doty RN - 05/11/2024 3:43 PM EDT Pt calls - foot surgery noted C/o [...] transferred to ortho to assist with above [facility]-13-[facility] History of Present illness Narrative* Eulalia Fuentes DPM - 05/07/2024 11:00 PM EDT This 38 year old female presents today [...] gave out my personal mobile telephone number [phone] to call at anytime if needed. 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 Eulalia Fuentes DPM documented in this encounterMagruder Hospital06-11-2024 Telephone encounter Note * Telephone Encounter - Margie Pa OCCA - 05/05/2024 3:15 PM EDT Called and spoke with patient new paperwork was suppose to be faxed over to the [place] office yesterday. Informed patient I will be in [place] tomorrow and will keep and eye out for the paperwork to be completed and sent out as soon as possible. Informed her we are allocated 7-10 business days to complete the forms. [facility]06-11-2024 Miscellaneous Notes* Telephone Encounter - Margie Pa OCCA - 05/05/2024 3:15 PM EDT Called and spoke with patient new paperwork was suppose to be faxed over to the [place] office yesterday. Informed patient I will be in [place] tomorrow and will keep and eye out for the paperwork to be completed and sent out as soon as possible. Informed her we are allocated 7-10 business days to complete the forms. * Telephone Encounter - Jael Fernandez - 05/05/2024 2:25 PM EDT Chastity is calling Eulalia Fuentes DPM today to request FMLA Paperwork to be updated and sent to her employer. Patient states her original surgery was cancelled and needs this done [employer]. Patient valentina just had the surgery on 05/01/24. Patient has been identified by name and birthdate. Duration of symptoms: N/A Person calling: self Call patient at: on cell [phone] (home) [phone] (cell) Was an appointment scheduled: No Closing statement: Results or non-symptom based questions: [facility], your call will be returned within the next business day. Jael Reese documented in this encounterMagruder Hospital06-11-2024 Telephone encounter Note * Telephone Encounter - Jael Fernandez - 05/05/2024 2:25 PM EDT Gary is calling Eulalia Fuentes DPM today to request FMLA Paperwork to be updated and sent to her employer. Patient states her original surgery was cancelled and needs this done [employer]. Patient valentina just had the surgery on 05/01/24. Patient has been identified by name and birthdate. Duration of symptoms: N/A Person calling: self Call patient at: on cell [phone] (home) [phone] (cell) Was an appointment scheduled: No Closing statement: Results or non-symptom based questions: Thank you for calling [facility], your call will be returned within the next business day. Jael Reese [facility]06-03-2024 History of Present illness Narrative* Eulalia Fuentes DPM - 04/27/2024 2:10 PM EDT Patient Visit for Gary Vigil 1985 38 [...] 2020. Has cut down to 1.5-2 packs perday now. Substance Use Topics Alcohol use: Not [...] to procedure discussed regarding excision painful scar plantarfourth inter metatarsal space LEFT FOOT and partial excision bone plantar medial great toe Patient understands the need for NWB (Non Weight Bearing) post operative All questions were answered. Gary Vigil appeared to be well informed. Greater than 50% of the visit was spent face to face counseling and/or coordinating care for the patient. Eulalia Fuentes DPM documented in this encounterMagruder Hospital05-21-2024 Telephone encounter Note * Telephone Encounter - Elodia Cobb LPN - 04/14/2024 8:46 AM EDT Patient had recent [facility] appt, 03/20. Per Elyse Bowden CNP, does not need to come in today and withbe DOS update. Called and spoke with patient. She still has instructions given at [facility] appt. No changes to medications or recent illnesses to report. Reviewed instructions with patient and is aware that she is not to take trulicity within one week of procedure. Elodia Cobb LPN April 14, 2024 8:51 AM [facility]-21-2024 Miscellaneous Notes* Telephone Encounter - Elodia Cobb LPN - 04/14/2024 8:46 AM EDT Patient had recent [facility] appt, 03/20. Per Elyse Bowden CNP, does not need to come in today and withbe DOS update. Called and spoke with patient. She still has instructions given at [facility] appt. No changes to medications or recent illnesses to report. Reviewed instructions with patient and is aware that she is not to take trulicity within one week of procedure. Elodia Cobb LPN April 14, 2024 8:51 AM documented in this encounterMagruder Hospital05-15-2024 Telephone encounter Note * Telephone Encounter - Sugar Gibbs - 04/08/2024 9:[address] Kline, I spoke to patient and [...] had to be rescheduled. Thank you, Sugar [facility] Work Phone: [phone] Miscellaneous Notes* Telephone Encounter - Sugar Gibbs - 04/08/2024 9:[address] Kline, I spoke to patient and [...] had to be rescheduled. Thank you, Sugar * Telephone Encounter - Nina Bernal RN - 04/06/2024 3:30 PM EDT The pt is calling, she just wanted to let you know that she went to [facility] ED yesterday and she has an infected right toe and is currently being treated with Clindamycin 300 mg 1 pill by mouth every 6 hours for 10 days. Pt is scheduled for surgery on her left foot on 04/10, She also wants to know if you can tell her what you will be doing during the surgery, she was underthe impression she was having the callous removed and having an arch implant, she wants to make sure this is still the case. You may call her back at the number listed in contacts and may leave any message. documented in this encounterMagruder Hospital05-13-2024 Telephone encounter Note * Telephone Encounter - Nina Bernal RN - 04/06/2024 3:30 PM EDT The pt is calling, she just wanted to let you know that she went to [facility] ED yesterday and she has an infected right toe and is currently being treated with Clindamycin 300 mg 1 pill by mouth every 6 hours for 10 days. Pt is scheduled for surgery on her left foot on 04/10, She also wants to know if you can tell her what you will be doing during the surgery, she was underthe impression she was having the callous removed and having an arch implant, she wants to make sure this is still the case. You may call her back at the number listed in contacts and may leave any message. [facility]04-30[facility]24 Telephone encounter Note* Telephone Encounter - Lissette Saleh - 03/24/2024 9:48 AM EDT Faxed FMLA form to [employer] [phone] Received fax confirmation Spoke with patient Will have scanned into records. [facility]04-30-2024 Miscellaneous Notes* Telephone Encounter - Lissette Saleh - 03/24/2024 9:48 AM EDT Faxed FMLA form to [employer] [phone] Received fax confirmation Spoke with patient Will have scanned into records. * Telephone Encounter - Lissette Saleh - 03/24/2024 9:44 AM EDT Type of form: FMLA Form received via fax When form is completed, Fax form to Form has been forwarded to [facility] Lissette Saleh documented in this encounterMagruder Hospital04-30-2024 Telephone encounter Note * Telephone Encounter - Lissette Saleh - 03/24/2024 9:44 AM EDT Type of form: FMLA Form received via fax When form is completed, Fax form to Form has been forwarded to [facility] Lissette Saleh [facility]04-29-2024 History of Present illness Narrative* Krystal Koehler MD - 03/23/2024 9:00 AM EDT This is a 1 year visit in patient with multiple risk factors as noted below. Interestingly at the last office visit I had suggested as needed follow-up. She presented at that time for preoperative cardiac risk assessment. Subjective : Interval review of systems is negative for chest discomfort pressure tightness heaviness palpitations lightheadedness orthopnea paroxysmal nocturnal dyspnea dependent edema or claudication TIA or CVAtype symptoms or bleeding diathesis No symptoms of [...] in 2 hours if unresolved. Do not ugawdn91 mg in 24 hours. rOPINIRole (REQUIP) 1 [...] (Multi) semaglutide (Ozempic) 0.25 mg or 0.5 mg(2 mg/3 mL) pen injector Lipid Panel 2. [...] my direction and personally dictated by me. Ihave reviewed the chart and agree that the record accurately reflects my personal performance of the history, physical exam, discussion and plan. Scribe Attestation By signing my name below, I, Gillian Finley LPN attest that this documentation has been prepared under the direction and in the presence of Krystal Koehler MD. documented in [facility] encounterMem[facility] Work Phone: 1(982) 849-457604-29-2024 Instructions* Patient Instructions* Malia Valdivia LPN - 03/23/2024 9:00 AM [...] time of your visit. documented in this encounterMemorial Health System Work Phone: 1(412) 466-403804-26-2024 History and physical note* Letty Virk APRN.LILLY - 03/20/2024 10:20 AM EDT Images from the original note were not [...] mass index (BMI) of36.0 to 36.9 in adult ([facility]) Assessment: Body mass index is 36.65 kg/m [...] Thick neck: no Lip Bite Test: II Microretrognathia/Micronagthia/Recessed Chin: No DENTAL Dental findings: teeth intact. [...] Patient Has had foot pain > 20 years.Hx of foot sx x2. Has elected for [...] 2020. Has cut down to 1.5-2 packs perday now. Substance Use Topics Alcohol use: Not [...] COVID-19 original vaccine, age 12+ yr, monovalent ([employer] [facility]) 01/17/2022 Imm Admin: COVID-19 original vaccine, age 12+ yr, monovalent ([employer] [facility]) 02/07/2021 Outside Immunization: COVID-19 mRNA, Comirnaty ([employer]) 01/17/2021 Outside Immunization: COVID-19 mRNA, Comirnaty ([employer]) REVIEW OF SYSTEMS: PAIN ASSESSMENT: Pain Pain Level: 8 Pain Location: Foot-Left Description: Aching, Sharp Duration Units: Years Frequency: Continuous Intervention/Comfort measure: Medication, Positioning General: No weight loss, malaise or fevers. Neuro: No history of TIA's, stroke, FEED ADVISER tumor, impaired sensorium, hemiplegia, paraplegia or quadraplegia. No neurological symptoms or problems. +Migraines Respiratory: Negative for Bronchitis, COPD, Current cough, Home O2 +Tobacco Use +KADEN +Asthma Cardiovascular: Negative for Recent MO, Angina, Chest Pain, PVD, DVT/PE +HLD GI: Negative for Nausea, Vomiting, Abdominal pain +GERD : Negative for dysuria, incontinence, hematuria, and hesitancy CLINICAL INFORMATICIST: Negative for abnormal vaginal bleeding, abnormal vaginal discharge. : Denies, No LMP recorded. Patient has had a hysterectomy. Endocrine: +Trulicity and Januvia DM2 Hematology: No history of bleeding or clotting disorder. Pt is not taking anti- coagulation or platelet medications. No history of hematological [...] instructions and voices comprehension and compliance. SIGNATURE: Letty Virk APRN.CNP PATIENT NAME: Gary Vigil DATE: 03/20/2024 TIME: 10:18 AM [facility]04-26-[facility] History and physical note* Letty Virk APRN.CNP - 03/20/2024 10:20 AM EDT Images from the original note were not [...] Follows with PCP Type 2 diabetes mellitus ([facility]) Assessment: On ity (Sundays) to hold 7 days prior to [...] mass index (BMI) of36.0 to 36.9 in adult ([facility]) Assessment: Body mass index is 36.65 kg/m [...] Thick neck: no Lip Bite Test: II Microretrognathia/Micronagthia/Recessed Chin: No DENTAL Dental findings: teeth intact. [...] Patient Has had foot pain > 20 years.Hx of foot sx x2. Has elected for [...] 2020. Has cut down to 1.5-2 packs perday now. Substance Use Topics Alcohol use: Not [...] Covid Immunization Dates Overdue - Covid-19 Vaccine () Overdue since 07/26/2023 02/07/2022 Imm Admin: COVID-19 original vaccine, age 12+ yr, monovalent ([employer] [facility]) 01/17/2022 Imm Admin: COVID-19 original vaccine, age 12+ yr, monovalent ([employer] [facility]) 02/07/2021 Outside Immunization: COVID-19 mRNA, Comirnaty ([facility]) 01/17/2021 Outside Immunization: COVID-19 mRNA, Comirnaty ([employer]) REVIEW OF SYSTEMS: PAIN ASSESSMENT: Pain Pain Level: 8 Pain Location: Foot-Left Description: Aching, Sharp Duration Units: Years Frequency: Continuous Intervention/Comfort measure: Medication, Positioning General: No weight loss, malaise or fevers. Neuro: No history of TIA's, stroke, FEED ADVISER tumor, impaired sensorium, hemiplegia, paraplegia or quadraplegia. No neurological symptoms or problems. +Migraines Respiratory: Negative for Bronchitis, COPD, Current cough, Home O2 +Tobacco Use +KADEN +Asthma Cardiovascular: Negative for Recent MO, Angina, Chest Pain, PVD, DVT/PE +HLD GI: Negative for Nausea, Vomiting, Abdominal pain +GERD : Negative for dysuria, incontinence, hematuria, and hesitancy CLINICAL INFORMATICIST: Negative for abnormal vaginal bleeding, abnormal vaginal discharge. : Denies, No LMP recorded. Patient has had a hysterectomy. Endocrine: +Trulicity and Januvia DM2 Hematology: No history of bleeding or clotting disorder. Pt is not taking anti- coagulation or platelet medications. No history of hematological [...] instructions and voices comprehension and compliance. SIGNATURE: Letty Virk APRN.CNP PATIENT NAME: Gary Vigil DATE: 03/20/2024 TIME: 10:18 AM documented in this encounterMagruder Hospital04-25-2024 Instructions* Patient Instructions* Letty Virk APRN.CNP - 03/19/2024 1:16 PM EDT PATIENT PREOPERATIVE INSTRUCTIONS You Surgeon has scheduled you for your procedure at this surgery center: [facility]: [phone] --[address] [place] [address]. Please read below carefully for your personalized [...] Procedures: - YOU MUST HAVE A RESPONSIBLE JIGSAW OPERATOR TAKE YOU HOME. A ASSISTANT MANAGER BILINGUAL OR SUTURE WINDER HAND CANNOT BE MADE A RESPONSIBLE JIGSAW OPERATOR. - We recommend that a responsible person stays with you overnight to take care of you. - You cannot stay in a hotel alone after outpatient surgery. You will not be permitted to have yoursurgery, if you do not have someone to [...] Advance Directive, please fax a copy to [phone] or email to for it to be added to your chart. If you do not have an Advance Directive, you can find the appropriate form and more information at [email or web address]. We recommend that youcomplete the Advance Directive form found on the website and bring it with you the day of your surgery. It can be witnessed and scanned into your chart that day. Letty Virk APRN.LILLY documented in this encounterMagruder Hospital04-23-2024 Telephone encounter Note * Telephone Encounter - Eulalia Fuentes DPM - 03/17/2024 1:46 PM EDT I discussed with the patient local topical wound care Recommend clean with sterile normal saline wound wash Use Honey (MEDIHONEY, HONEY,) 100 % paste topical Rx Cefadroxil (DURICEF) 500 mg capsule If not improved recommend follow up and further work up All questions were answered. Eulalia Fuentes DPM [facility]04-23-2024 Miscellaneous Notes* Telephone Encounter - Eulalia Fuentes DPM - 03/17/2024 1:46 PM EDT I discussed with the patient local topical wound care Recommend clean with sterile normal saline wound wash Use Honey (MEDIHONEY, HONEY,) 100 % paste topical Rx Cefadroxil (DURICEF) 500 mg capsule If not improved recommend follow up and further work up All questions were answered. Eulalia Fuentes DPM * Telephone Encounter - Darcie Henriquez - 03/17/2024 12:33 PM EDT Gary is calling Eulalia Fuentes DPM today [...] calling: self Call patient at: at home [phone] (home) [phone] (cell) Was an appointment scheduled: No Closing statement: Results or non-symptom based questions: Thank you for calling [facility], your call will be returned within the next business day. Darcie Henriquez documented in this encounterMagruder Hospital04-23-2024 Telephone encounter Note * Telephone Encounter - MartinezGueroDarcie - 03/17/2024 12:33 PM EDT Gary is calling Eulalia Fuentes DPM today [...] calling: self Call patient at: at home [phone] (home) [phone] (cell) Was an appointment scheduled: No Closing statement: Results or non-symptom based questions: Thank you for calling [facility], your call will be returned within the next business day. Darcie Henriquez [facility]04-17-2024 History of Present illness Narrative* Juhi Guidry PT, DPT - 03/11/2024 9:34 AM EDT Program_ID:[id number] Access Code: [email or web address] URL: [email or web address] Date: 03-11-2024 Prepared By: Juhi Guidry Program Notes Patient Education - Walking with Crutches: Non Weight-Bearing - Going Up and Down Stairs With Crutches (Ehn-Gyodkg-Pvwwfkw) - cc Gait Training Crutches Non Weight Bearing NWB - cc Gait Safety Crutch Fitting Sizing * Juhi Guidry PT, DPT - 03/11/2024 9:12 AM EDT Images from the original note were not included. Episode Visit Count: 1 Therapist That Will Accept/Oversee The Plan Of Care: Juhi Guidry Start of Care Date: 03/11/24 Onset Date: [...] Planned: 1 Planned Treatment Interventions: Therapeutic exercise (93906), Neuromuscular re- education (08690), Manual therapy (33457), Therapeutic activities (93632), Self- penitentiary management (58463), Patient/Family/Caregiver Education, Body Mechanics Training, Gait Training (71394) PLAN FOR NEXT VISIT: Discharge pre-operatively. Provided handouts with HEP regarding education components today. Patient demonstrates good understanding of plan of care and treatment. The above goals and plan of care were discussed and agreed upon by patient/family. SUBJECTIVE: Pt presents today pre-operatively for ankle surgery on 04/07/24. She did have ankle surgery in 2019.She will be nonweightbearing initially following surgery. 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 Self-Nursing Home Management: 1: reviewed precautions and NWB restrictions, [...] : 911 Session Stop Time : 0950 Juhi Guidry KRANTHI, DPT documented in this encounterMagruder Hospital04-15-2024 History of Present illness Narrative* Eulalia Fuentes DPM - 03/09/2024 9:06 AM EDT Patient Visit for Gary Vigil 1985 38 [...] , HBA1C , VITD25 in the last 62387 hours. ASSESSMENT: L60.0 Ingrown toenail (primary encounter [...] used further remove any additional local nail platespicules. The nail matrix was also debrided with a currette. Surrounding hypertrophic dermal tissuewas removed with a tissue nipper. A phenol swab was applied to the nail matrix area and nail borderfor 3 applications of 30 seconds each toenail [...] patient. Eulalia Fuentes DPM documented in this encounterMagruder Hospital03-12-2024 History of Present illness Narrative* Eulalia Fuentes DPM - 02/04/2024 5:12 PM EDT Patient called Requests overnight stay \ Not indicated at this time - should be out patient Recommend physical therapy for NWB (Non Weight Bearing) gait training Order placed Eulalia Fuentes DPM documented in this encounterMagruder Hospital03-12-2024 Miscellaneous Notes* Telephone Encounter - Lissette Saleh - 02/04/2024 9:08 AM EDT Spoke with patient and scheduled surgery with Dr. Fuentes on 04/10/24. Patient stated she needed to be in the hospital for 24hrs. I explained to patient that [facility] was an outpatient surgery center and advised her to discuss with Dr. Fuentes. Gave patient direct phone numbers. [phone] or [phone] documented in this encounterMagruder Hospital03-11-2024 History of Present illness Narrative* Eulalia Fuentes DPM - 02/03/2024 11:27 AM EDT Patient Visit for Gary Vigil 1985 38 [...] LEFT forefoot Difficulty walking She works at [employer] on feet at work all day Altered gait Pes plano valgus deformity symptoms Also complains of pain related to ingrown toenails great toe bilateral and medial border nail thirdtoe RIGHT FOOT Other Very complicated history of LEFT lower extremity symptoms with multiple surgeries Gary has had symptoms of her left foot for over 15 years states she was initially treated in [place]. In 2018 she moved to [place] was seen by Dr. Shad Jacques Previous [...] seen by Dr. Sheng Covington DPM at [facility] She is wearing slippers today PCP: [...] skin. No evidence of evidence of petechiae, purpura,telangiectasia Bilateral Ingrown toenail medial and lateral border [...] , HBA1C , VITD25 in the last 91227 hours. 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 Gary Vigil appeared to be well informed. Greater than 50% of the visit was spent face to face counseling and/or coordinating care for the patient. Eulalia Fuentes DPM documented in this encounterMagruder Hospital02-20-2024 Miscellaneous Notes* Telephone Encounter - Margie Pa OCCA - 01/14/2024 2:02 PM EST Called patient and informed her is out of the office. She states she has an appointment fora follow 02/03/24 but is eager to be scheduled for surgery as she knows he is booking a few months out. Patient also states she will have to stay in the hospital for 24 hours after her surgery. * Telephone Encounter - Samantha Pires - 01/14/2024 12:52 PM EST Gary is calling Eulalia Fuentes DPM today to request Schedule Surgery Patient calling to request to be contacted as soon as possible to schedule surgery. Please call patient at cell number. Patient has been identified by name and birthdate. Person calling: self Call patient at: on cell [phone] (cell) Was an appointment scheduled: No Closing statement: Results or non-symptom based questions: Thank you for [facility], your call will be returned within the next business day. Samantha Pires documented in this encounterMagruder Hospital02-09-2024 History of Present illness Narrative* Eulalia Fuentes DPM - 01/03/2024 9:23 AM EST Patient Visit for Gary Vigil 1985 38 year old female Date of Service: January 03, 2024 SUBJECTIVE: Chief Complaint: Date of Service: January 03, 2024 Additional HPI: Chief complaint today very painful hyperkeratosis plantar lateral LEFT forefoot Difficulty walking She works at [employer] on feet at work all day Altered gait Pes plano valgus deformity symptoms Other Very complicated history of LEFT lower extremity symptoms with multiple surgeries Gary has had symptoms of her left foot for over 15 years states she was initially treated in [place]. In 2018 she moved to [place] was seen by Dr. Shad Jacques Previous [...] seen by Dr. Sheng Covington DPM at [facility] She is wearing slippers today PCP: [...] skin. No evidence of evidence of petechiae, purpura,telangiectasia Musculoskeletal exam: Depressed arch height with weight [...] , HBA1C , VITD25 in the last 22814 hours. ASSESSMENT: Z98.890 History of foot surgery [...] patient. Eulalia Fuentes DPM documented in this encounterMagruder Hospital12-08-2023 History of Present illness Narrative* Eulalia Fuentes DPM - 11/01/2023 4:40 PM EST Patient Visit for Gary Vigil 1985 38 [...] LEFT forefoot Difficulty walking She works at [employer] on feet at work all day Altered gait Pes plano valgus deformity symptoms Other Very complicated history of LEFT lower extremity symptoms with multiple surgeries Gary has had symptoms of her left foot for over 15 years states she was initially treated in [place]. In 2018 she moved to [place] was seen by Dr. Shad Jacques Previous [...] seen by Dr. Sheng Covington DPM at [facility] She is wearing slippers today PCP: [...] skin. No evidence of evidence of petechiae, purpura,telangiectasia Musculoskeletal exam: Depressed arch height with weight [...] , HBA1C , VITD25 in the last 75561 hours. 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 Patient was asked to actively ambulate inthe orthosis and demonstrated today that symptoms were significantly improved with the use of the orthosis. Size 4 All questions were answered. Gary Vigil appeared to be well informed. Greater than 50% of the visit was spent face to face counseling and/or coordinating care for the patient. Eulalia Fuentes DPM documented in this encounterMagruder Hospital12-08-2023 History of Present illness Narrative* Julianna Pollard RT(R) - 11/01/2023 11:07 AM EST Radiology Service Progress Note PATIENT NAME: Gary Vigil DATE OF SERVICE: November 01, 2023 TIME: 11:07 AM PATIENT IDENTITY VERIFICATION COMPLETED USING TWO (2) IDENTIFIERS: Name and Date of confirmedby patient verbally. FALL SCREENING: Has the patient had 2 falls in the last year or 1 fall with injury or currently using an Ambulatory Assistive Device (Walker, Cane, Wheelchair, Crutches, etc.)? No PATIENT GENDER DATA: Female. status: : No status: N/A PATIENT RELEVANT IMPLANT DATA REVIEWED: Not Applicable RADIOLOGY DEPARTMENT: General X-ray: Exam(s) Completed: Lower Extremity X- Ray(s): Foot, Left and Wt. Bearing PERIPHERAL IV DATA: Not applicable SIGNED BY: RT Gi(R) November 01, 2023 11:07 AM documented in this encounterMagruder Hospital08-15-2022 History of Present illness Narrative* Eulalia Fuentes DPM - 07/09/2022 10:25 AM EDT Patient Visit for Gary Vigil 1985 37 [...] years states she was initially treated in [place]. In 2018 she moved to [place] was seen by Dr. Shad Jacques Previous [...] seen by Dr. Sheng Covington DPM at [facility] PCP: No primary care provider on [...] skin. No evidence of evidence of petechiae, purpura,telangiectasia Musculoskeletal exam: Patient tends to hold her left foot and ankle into varus position although can be reduced to normalshe states is quite uncomfortable Altered gait due [...] PROT, URICACID, HBA1C, VITD25 in the last 26411 hours. ASSESSMENT: M79.671, M79.672 Pain in both [...] orthotics prosthetics for custom molded Foot [facility] [phone] [facility] [phone] [facility] phone : [phone] Medically necessary for custom molded Foot Orthosis [...] patient. Eulalia Fuentes DPM documented in this encounterMagruder Hospital06-06-2022 History of Present illness Narrative* Eulalia Fuentes DPM - 04/30/2022 11:06 AM EDT Patient Visit for Gary Vigil 1985 36 [...] years states she was initially treated in [place]. In 2018 she moved to [place] was seen by Dr. Shad Jacques Previous [...] seen by Dr. 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 No evidence of evidence of petechiae, purpura,telangiectasia Musculoskeletal exam: Patient tends to hold her left foot and ankle into varus position although can be reduced to normalshe states is quite uncomfortable Altered gait due [...] PROT, URICACID, HBA1C, VITD25 in the last 93816 hours. ASSESSMENT: L85.9 Hyperkeratosis (primary encounter diagnosis) [...] toes, instructed on use and warned of risksof ulceration, irritation and potential vascular compromise. Additional Padding for fourth metatarsal head All questions were answered. Gary Vigil appeared to be well informed. Greater than 50% of the visit was spent face to face counseling and/or coordinating care for the patient. Eulalia Fuentes DPM documented in this encounterMagruder Hospital04-12-2022 Miscellaneous Notes* Telephone Encounter - Shana Howard MA - 03/06/2022 10:55 AM EDT Left a message. We have received the paperwork at the [place] office and it will be here when Dr Fuentes returns to the office. * Telephone Encounter - Tamika Lara - 02/23/2022 1:59 PM EDT Patient calling to see if [facility] ever sent over her records. Please call patient to inform. [phone] documented in this encounterMagruder HospitalEvaluation noteNo assessment information availableCleveland [facility] Work Phone: Evaluation note* Diagnosis Hyperkeratosis- Primary Acquired keratoderma Neuritis of left lower extremity Neuralgia of left lower extremity History of foot surgery Personal history of surgery to other organs Diabetes mellitus type 2 with neurological manifestations (HCC) Type II or unspecified type diabetes mellitus with neurological manifestations, not stated as uncontrolled [facility] Pain in both feet- [...] Difficulty in walking [facility] Diagnosis Eversion deformity of foot, left- [...] fibrosis of skin [facility] History of foot surgery- [...] disease of nail [facility] Diagnosis Ingrown toenail- Primary Ingrowing nail [...] Acquired keratoderma [facility] History of foot surgery- [...] Hyperkeratosis Acquired keratoderma documented in this encounter [facility] note* Diagnosis Type 2 diabetes mellitus with diabetic polyneuropathy, unspecified whether half-way insulin use (HCC)- Primary BMI 39.0-39.9,adult Body [...] Hyperkeratosis Acquired keratoderma documented in this encounter [facility] note* Diagnosis Ingrown toenail- Primary Ingrowing nail [...] Hyperkeratosis Acquired keratoderma documented in this encounter [facility] note* Diagnosis Type 2 diabetes mellitus with diabetic polyneuropathy, unspecified whether half-way insulin use (HCC) BMI 39.0-39.9,adult Body Mass [...] Hyperkeratosis Acquired keratoderma [facility] Diagnosis Pre-op evaluation- Primary Preoperative examination, unspecified Hyperlipidemia, unspecified hyperlipidemia type Type 2 diabetes mellitus with other specified complication, without long-term current use of insulin ([facility]) Fibromyalgia Mylagia and myositis, unspecified Migraine without [...] mass index (BMI) of36.0 to 36.9 in adult ([facility]) History of foot surgery Personal history of surgery to other organs DM (diabetes mellitus), type 2 with neurological complications (HCC) Type II or unspecified type diabetes mellitus with neurological manifestations, not stated as uncontrolled Painful scar Scar condition and fibrosis of skin Hyperkeratosis Acquired keratoderma * Assessment & Plan Note - Letty Virk APRN.CNP - 03/20/2024 10:47 AM EDT Associated Problem(s): Class 2 severe obesity due to excess calories with serious comorbidity and body mass index (BMI) of 36.0 to 36.9 in adult ([facility]) Assessment: Body mass index is 36.65 kg/m . * Assessment & Plan Note - Letty Virk APRN.CNP - 03/20/2024 10:45 AM EDT Associated Problem(s): Gastro-esophageal reflux disease without esophagitis Assessment: Controlled with PPI * Assessment & Plan Note - Letty Virk APRN.CNP - 03/20/2024 10:44 AM EDT Associated Problem(s): Obstructive sleep apnea of adult Assessment: Not currently using CPAP as hers was recalled and she has not gotten a new one yet * Assessment & Plan Note - Letty Virk APRN.CNP - 03/20/2024 10:44 AM EDT Associated Problem(s): Mild intermittent asthma without complication Assessment: Stable Albuterol if needed Follows with Family health services * Assessment & Plan Note - Letty Virk APRN.CNP - 03/20/2024 10:43 AM EDT Associated Problem(s): Cigarette nicotine dependence without complication Assessment: Smokes 1.5-2 PPD Cut back from 6 PPD in 2020 * Assessment & Plan Note - Letty Virk APRN.CNP - 03/20/2024 10:42 AM EDT Associated Problem(s): Migraines Assessment: Ajovy Monthly- Next Dose 03/24 Has rescue medication if needed * Assessment & Plan Note - Letty Virk APRN.CNP - 03/20/2024 10:42 AM EDT Associated Problem(s): Fibromyalgia Assessment: Controlled with Tylenol * Assessment & Plan Note - Letty Virk APRN.CNP - 03/20/2024 10:40 AM EDT Associated Problem(s): Type 2 diabetes mellitus (HCC) Assessment: On ity (Sundays) to hold 7 days prior to procedure On Follows with Family health services To get HGB A1C today * Assessment & Plan Note - Letty Virk APRN.CNP - 03/20/2024 10:28 AM EDT Associated Problem(s): Hyperlipidemia, unspecified Assessment: On Statin Follows with PCP documented in this encounter [facility] note* Diagnosis Medication course changed- Primary Diabetes mellitus type II, non insulin dependent (Multi) Type II or unspecified type diabetes mellitus without mention of complication, not stated as uncontrolled Anemia, unspecified type Primary hypertension Unspecified essential hypertension BMI 38.0-38.9,adult Smoker Tobacco use disorder Hyperlipidemia, unspecified hyperlipidemia type documented in this encounter [facility] Work Phone: Evaluation note* Diagnosis Difficulty walking- Primary Difficulty in walking Right foot pain Pain in limb Painful scar Scar condition and fibrosis of skin Neuritis of left lower extremity Fibromyalgia Mylagia and myositis, unspecified History of foot surgery Personal history of surgery to other organs DM (diabetes mellitus), type 2 with neurological complications ([facility]) Type II or unspecified type diabetes mellitus with neurological manifestations, not stated as uncontrolled Painful scar Scar condition and fibrosis of skin Hyperkeratosis Acquired keratoderma [facility]* Diagnosis Post-operative state- Primary Other postprocedural status documented in this encounter [facility] note* Diagnosis Post-operative state- Primary Other postprocedural status documented in this encounter [facility] note* Diagnosis Pre-op evaluation- Primary Preoperative examination, [...] mass index (BMI) of36.0 to 36.9 in adult (HCC) Post-operative state- Primary Other postprocedural status [facility]* Diagnosis Pain in left foot Pain [...] mass index (BMI) of36.0 to 36.9 in adult ([facility]) documented in this encounter [facility] note* Diagnosis Pre-op evaluation- Primary Preoperative examination, [...] mass index (BMI) of36.0 to 36.9 in adult ([facility]) Left foot pain- Primary Pain in limb Post-operative state Other postprocedural status Difficulty walking Difficulty in walking Painful scar Scar condition and fibrosis of skin Diabetes mellitus type 2 with neurological manifestations ([facility]) Type II or unspecified type diabetes mellitus with neurological manifestations, not stated as uncontrolled [facility]* Diagnosis Pre-op evaluation- Primary Preoperative examination, [...] mass index (BMI) of36.0 to 36.9 in adult ([facility]) Painful scar- Primary Scar condition and fibrosis [...] and myositis, unspecified [facility] Diagnosis Medication course changed- Primary Primary hypertension Unspecified essential hypertension Diabetes mellitus type II, non insulin dependent (Multi) Type II or unspecified type diabetes mellitus without mention of complication, not stated as uncontrolled Hyperlipidemia, unspecified hyperlipidemia type Smoker Tobacco use disorder Preop cardiovascular exam Pre-operative cardiovascular examination documented in this encounter [facility] Work Phone: Evaluation note* Diagnosis Postoperative examination Follow-up examination, following unspecified [facility] Pre-op evaluation- Primary Preoperative examination, unspecified Hyperlipidemia, unspecified hyperlipidemia type Type 2 diabetes mellitus with other specified complication, without long-term current use of insulin ([facility]) Fibromyalgia Mylagia and myositis, unspecified Migraine without [...] mass index (BMI) of36.0 to 36.9 in adult ([facility]) Eversion deformity of foot, left- Primary Pain [...] as uncontrolled [facility] Diagnosis Pre-op evaluation- Primary Preoperative [...] mass index (BMI) of36.0 to 36.9 in adult ([facility]) DM (diabetes mellitus), type 2 with neurological complications ([facility])- Primary Type II or unspecified type diabetes mellitus with neurological manifestations, not stated as uncontrolled Hyperkeratosis Acquired keratoderma Pain in both feet Pain in limb Eversion deformity of foot, left Acquired dysmorphic toenail Other specified disease of nail [facility] Primary hypertension Unspecified essential hypertension Diabetes mellitus type II, non insulin dependent (Multi) Type II or unspecified type diabetes mellitus without mention of complication, not stated as uncontrolled Mixed hyperlipidemia Hypokalemia Hypopotassemia BMI 33.0-33.9,adult Smoker Tobacco use disorder documented in this encounter [facility] Work Phone: Evaluation note* Diagnosis Type 2 diabetes mellitus with other skin complications- Primary Pelvic pain in female Unspecified symptom associated with female genital organs Yeast infection documented [facility]* Diagnosis Breast tenderness in female- Primary Well woman exam with routine gynecological exam Routine gynecological examination Encounter for screening mammogram for malignant neoplasm of breast documented in this encounter [facility]* Diagnosis Left breast abscess- Primary Mass of upper inner quadrant of left breast Mass of buttock Neoplasm of uncertain behavior of skin of back Type 2 diabetes mellitus without complication, without long-term current use of insulin ([facility]) documented in this encounter [facility]* Diagnosis Epidermal inclusion cyst- Primary Sebaceous cyst Left buttock abscess documented in this encounter [facility]* Diagnosis Shortness of breath- Primary Exacerbation of asthma, unspecified asthma severity, unspecified whether persistent ([facility]) Upper respiratory tract infection, unspecified type documented in this encounter [facility] Work Phone: Evaluation note* Diagnosis Encounter for consultation documented in this encounter [facility]* Diagnosis Pre-op evaluation- Primary Preoperative examination, unspecified Hyperlipidemia, unspecified hyperlipidemia type Type 2 diabetes mellitus with other specified complication, without long-term current use of insulin (HCC) Fibromyalgia Mylagia and myositis, unspecified Migraine without status migrainosus, not intractable, unspecified migraine type Cigarette nicotine dependence without complication Tobacco use disorder Mild intermittent asthma without complication (HCC) Unspecified asthma Obstructive sleep apnea of adult Obstructive sleep apnea (adult) (pediatric) Gastro-esophageal reflux disease without esophagitis Esophageal reflux Class 2 severe obesity due to excess calories with serious comorbidity and body mass index (BMI) of36.0 to 36.9 in adult ([facility]) Type 2 diabetes mellitus with diabetic polyneuropathy, 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 ([facility])- Primary Difficulty walking Difficulty in walking BMI 39.0-39.9,adult Body Mass Index 39.0-39.9, adult Eversion deformity of foot, left Painful scar Scar condition and fibrosis of skin Acquired dysmorphic toenail Other specified disease of nail Pain in toes of both feet documented in this encounter [facility] note* Diagnosis Pre-op evaluation- Primary Preoperative examination, unspecified Hyperlipidemia, unspecified hyperlipidemia type Type 2 diabetes mellitus with other specified complication, without long-term current use of insulin (HCC) Fibromyalgia Mylagia and myositis, unspecified Migraine without status migrainosus, not intractable, unspecified migraine type Cigarette nicotine dependence without complication Tobacco use disorder Mild intermittent asthma without complication (HCC) Unspecified asthma Obstructive sleep apnea of adult Obstructive sleep apnea (adult) (pediatric) Gastro-esophageal reflux disease without esophagitis Esophageal reflux Class 2 severe obesity due to excess calories with serious comorbidity and body mass index (BMI) of36.0 to 36.9 in adult ([facility]) Acquired dysmorphic toenail- Primary Other specified disease of nail Pain in toes of both feet Difficulty walking Difficulty in walking Pain of toes of both feet Acquired dysmorphic toenail Other specified disease of nail Pain in toes of both feet Difficulty walking Difficulty in walking Pain of toes of both feet [facility] Additional Instructions Ice to sore areas May take the naproxen twice a day for pain take with food May take the muscle relaxer cyclobenzaprine up to 3 times a day as needed for pain may make you sleepy Gentle stretching Follow-up with your family doctor for recheck as neededChildren[facility] Work Phone: [facility] instructions[facility] Work [facility]: Hospital Discharge instructions Additional Instructions Follow-up with your surgeon Return to the ED if develop worsening symptoms or concernsChildren[facility] Work Phone: Hospital Discharge instructions Additional Instructions Avoid smoking Rest Tylenol or Naprosyn if needed for pain Warm compresses to area affected Avoid heavy lifting for the next 2 days Return here if any problems persist or worsen including increased chest pain, shortness of breath, or any other concerns as needed discussedChildren'S [facility] Work Phone: Hospital Discharge instructions Additional Instructions Take [id number] ibuprofen or Tylenol for discomfort May apply warm compresses however that does not usually help sebaceous cyst Follow-up with dermatology for removal of the cyst Return to the ER if suddenly red warm pustule or any other concernsChildren'[facility] Work Phone: Hospital Discharge instructions Additional Instructions Use the Lidoderm pain patch as prescribed for your chest pain. Take Tylenol as needed for chest pain. Follow-up with your PCP for reevaluation in 5 to 7 days regarding your chest pain and also your abnormal EKG possible need for further outpatient cardiac testing.[facility] Work Phone: Hospital Discharge instructions Additional Instructions Warm compresses several times a day Take antibiotic as instructed until gone Avoid picking, poking, popping area affected Good hand hygiene Return here if any problems persist or worsenChildren'[facility] Work Phone: Hospital Discharge instructions Additional Instructions Push fluids Rest Tylenol if needed for pain Apply warm compresses to your abdomen is uncomfortable Take antibiotic as instructed until gone Follow-[facility] with your [facility] Work Phone: Hospital Discharge instructions Additional Instructions Follow-up with your primary care doctor Return to ED if develop worsening symptoms or concerns Double your dose of lasix for the next couple of days to help with your swelling, you will need to follow with your primary care doctor in the next week to monitor how your swelling is doing and your kidney functionC[facility] Work Phone: Hospital Discharge instructions Additional Instructions [...] abscess. This will be removed when you return.[facility] Work Phone: Hospital Discharge instructions Additional Instructions [...] a primary care provider, you can contact [facility] and ask about being established for primary care services. If you require specialist follow up, such as with an orthopedic physician, extractor operator solvent process, urologist, or other medical specialty, you should [...] should first take Tylenol or ibuprofen available [id number]. Medications, if prescribed to treat pain from [...] ED or if you have any other concernsC[facility] Work Phone: Hospital Discharge instructions Additional Instructions Avoid heavy lifting and packing for the next few days Flexeril for muscle spasms You cannot work or drive when taking Flexeril Added lidocaine patches to area affected Your pillows or positioning as me you discussed Gentle range of motion when you have muscle relaxers in your system Return here if any problems persist or worsen Ice for the next 24 hours and then rotate [facility] Work Phone: Hospital Discharge instructions Additional Instructions Avoid pressure or friction to incision sites. No driving if taking narcotic pain medicationC[facility] Work Phone: Reason for referral (narrative)* Diagnostic Procedure Only (Routine) - ClosedSpecialtyDiagnoses / ProceduresReferred By Contact Referred To ContactXR IMAGING Diagnoses Pain in left foot Procedures XR FOOT GENERAL 3V AP/LAT/OBL LEFT RADEX FOOT COMPLETE MINIMUM 3 VIEWS Eulalia Fuentes DPM [address] [place] [address] [place] [address] Referral IDStatusReasonStart DateExpiration DateVisits RequestedVisits [id number] Auto-Generated Referral / [facility] for referral (narrative)* Consultation (Routine) - AuthorizedSpecialtyDiagnoses / ProceduresReferred By ContactReferred To ContactCardiology Diagnoses Primary hypertension Procedures Follow Up In Cardiology Krystal Koehler MD [address] [place] [id number] Krystal Koehler MD [address] [place] [id number] Referral IDStatusReasonStart DateExpiration DateVisits RequestedVisits [id number] [facility] Work Phone: Reason for referral (narrative)No reason for referral information availableChildren'[facility] Work Phone: Reason for visit Narrative* Diagnostic Procedure Only (Routine) - ClosedSpecialtyDiagnoses / ProceduresReferred By ContactReferred To ContactXR IMAGING Diagnoses Pain in left foot Procedures XR FOOT GENERAL 3V AP/LAT/OBL LEFT RADEX FOOT COMPLETE MINIMUM 3 VIEWS Eulalia Fuentes DPM [address] [place] [address] [place] [address] Referral IDStatusReasonStart DateExpiration DateVisits RequestedVisits [id number] Auto-Generated Referral [facility] Chief Complaint and Reason for Visit Chief Complaint bump under rt arm pi t rt side facial/mouth pain Chief Complaint bump under rt arm pi t rt side facial/mouth pain Lower back injury_[employer] Chief Complaint bump under rt arm pi t rt side facial/mouth pain Lower back injury_[employer] E11.9 Chief Complaint rt side facial/mouth pain Lower back injury_[employer] E11.9 Right Axillary Abscess Chief Complaint rt side facial/mouth pain Lower back injury_[employer] E11.9 Right Axillary Abscess Right Axillary Abscess Chief Complaint rt side facial/mouth pain Lower back injury_[employer] E11.9 Right Axillary Abscess Right Axillary Abscess Right Axillary Abscess Chief Complaint Lower back injury_[facility] [employer] E11.9 Right Axillary Abscess Right Axillary [...] 0am personal April 15, 2025 12:08 pm Chief Complaint Admit Date lump on lt arm pit, painful March 20, 2025 12:23am suture removal March 23, 2025 8:2 0am personal April 15, 2025 12:08 pm E11.628 May 06, 2025 11:1 4am Rt side pain June 02, 2025 9:31p m Chief Complaint Admit Date lump on lt arm pit, painful March 20, 2025 12:23am suture removal March 23, 2025 8:2 0am personal April 15, 2025 12:08 pm E11.628 May 06, 2025 11:1 4am Rt side pain June 02, 2025 9:31p m wound on left breast June 12, 2025 5:0 3pm Chief Complaint Admit Date lump on lt arm pit, painful March 20, 2025 12:23am suture removal March 23, 2025 8:2 0am personal April 15, 2025 12:08 pm E11.628 May 06, 2025 11:1 4am Rt side pain June 02, 2025 9:31p m wound on left breast June 12, 2025 5:0 3pm N64.4 June 16, 2025 10:2 3am Chief Complaint Admit Date personal April 15, 2025 12:08 pm E11.628 May 06, 2025 11:1 4am Rt side pain June 02, 2025 9:31p m wound on left breast June 12, 2025 5:0 3pm N64.4 June 16, 2025 10:2 3am Left Breast Mass, Left Buttock Mass, Rig ht Back Ma June 28, 2025 5:43am R10.2 June 28, 2025 9:4 4am Advance Directives No Advanced Directives Records Found Advance Directive Response Recorded Date/ Time Advance Directives No July 3:09pm Advance Directive Response Recorded Date/ Time Advance Directives No July 2:09pm Family History No Family History Records Found Relationship Condition Age at Onset Recorded Date/T belgica Not Specified Diabetes mellitus Unknown HypertensionUnknownHyperlipidemiaUnknownChronic obstructive pulmonary disease UnknownAsthmaUnknown Unknown Family Member Name Dates Details Family history of cardiac di sorder: Mother(V17.49, Z82.49) Status:ActiveFamily history of hypertension: Mother(V17.49, Z82.49) Status:ActiveFamily history of diabetes mellitus: Mother(V18.0, Z83.3) Status:ActiveFamily history of hyperlipidemia: Mother(V18.19, Z83.438) Status:Active Unknown Family Member Name Dates Details Family history of cardiac di sorder: Mother(V17.49, Z82.49) Status:ActiveFamily history of hypertension: Mother(V17.49, Z82.49) Status:ActiveFamily history of diabetes mellitus: Mother(V18.0, Z83.3) Status:ActiveFamily history of hyperlipidemia: Mother(V18.19, Z83.438) Status:Active Unknown Family Member Name Dates Details Family history of cardiac di sorder: Mother(V17.49, Z82.49) Status:ActiveFamily history of hypertension: Mother(V17.49, Z82.49) Status:ActiveFamily history of diabetes mellitus: Mother(V18.0, Z83.3) Status:ActiveFamily history of hyperlipidemia: Mother(V18.19, Z83.438) Status:Active Unknown Family Member Name Dates Details Family history of hyperlipid emia: Mother(V18.19, Z83.438) Status:ActiveFamily history of diabetes mellitus: Mother(V18.0, Z83.3) Status:ActiveFamily history of hypertension: Mother(V17.49, Z82.49) Status:ActiveFamily history of cardiac disorder: Mother(V17.49, Z82.49) Status:Active Unknown Family Member Name Dates Details Family history of cardiac di sorder: Mother(V17.49, Z82.49) Status:ActiveFamily history of hypertension: Mother(V17.49, Z82.49) Status:ActiveFamily history of diabetes mellitus: Mother(V18.0, Z83.3) Status:ActiveFamily history of hyperlipidemia: Mother(V18.19, Z83.438) Status:Active Relationship Condition Age at Onset Recorded Date/T belgica mother Diabetes mellitus Unknown HypertensionUnknownHyperlipidemiaUnknownChronic obstructive pulmonary disease UnknownAsthmaUnknown Summary Purpose Reason for Referral SpecialtyDiagnoses / ProceduresReferred By ContactReferred To ContactREHAB AND SP[facility]TS [facility] Diagnoses Type 2 diabetes mellitus with diabetic polyneuropathy, unspecified whether half-way insulin use (HCC) BMI 39.0-39.9,adult Difficulty walking Eversion deformity of foot, left Painful scar Procedures CONSULT TO PHYSICAL THERAPY PHYSICAL THERAPY EVALUATION HIGH COMPLEX 45 MINS Eulalia Fuentes DPM [address] [place] [address] [facility] [place] [address] [place] [address] Referral IDStatusReasonStart DateExpiration DateVisits RequestedVisits [id number] Review Auto-Generated Referral [id number] / ProceduresReferred By ContactReferred To Contact Diagnoses Primary hypertension Krystal Koehler MD [address] [place] [address] Referral IDStatusReasonStart DateExpiration DateVisits RequestedVisits [id number] / ProceduresReferred By ContactReferred To Contact Diagnoses Diabetes mellitus type II, non insulin dependent (Multi) Hyperlipidemia, unspecified hyperlipidemia type Krystal Koehler MD [address] [place] [address]170 Referral IDStatusReasonStart DateExpiration DateVisits RequestedVisits [id number] / ProceduresReferred By ContactReferred To ContactCardiology Diagnoses Primary hypertension Procedures Follow Up In Cardiology Krystal Koehler MD [address] [place] [address] Krystal Koehler MD [address] [place] [address] Referral IDStatusReasonStart DateExpiration DateVisits RequestedVisits [id number] Additional Source Comments Care Teams (unrecognized sec tion and content) Team Status: Active Member Role Status Dates Ga Marques PA-C Primary Care Provider Activ e Team Status: Inactive Member Role Status Dates Ga Marques PA-C Primary Care Provider Activ e Efrain Jeffrey ProviderActive Team Status: Inactive Member Role Status Dates Ga Marques PA-C Primary Care Provider Activ e Efrain Robles ProviderActive Team Status: Inactive Member Role Status Dates Ga Marques PA-C Primary Care Provider Activ e Rigoberto Lozada ProviderActive Team Status: Inactive Member Role Status Dates Ga Marques PA-C Primary Care Provider Activ e Radha Stephens , FILLING HAULER-BCEmeharpreet ProviderActive Team Status: Inactive Member Role Status Dates Ga Marques PA-C Primary Care Provider Activ e Javier Carvajal ProviderActive Team Status: Inactive Member Role Status Dates Ga Marques PA-C Primary Care Provider Activ e Germaine Dumont ProviderActive Team Status: Inactive Member Role Status Dates NON STAFF Primary Care Provider Active Efrain Canas ProviderActiveTeam MemberRelationshipSpecialty Start DateEnd Date Jamia Johansen MD [address] [place] [address] ReferringOB/GYN01/12/20 Team Status: Inactive Member Role Status Dates Ga Marques PA-C Primary Care Provider, Atte nding Provider Active Team MemberRelationshipSpecialtyStart DateEnd Date Jamia Johansen MD [address] [place] [address] ReferringOB/GYN01/12/20 Team Status: Inactive Member Role Status Dates Ga Marques PA-C Primary Care Provider Activ e Javier Strickland ProviderActive Team Status: Inactive Member Role Status Dates Ga Marques PA-C Primary Care Provider Activ e Mk M Elena , DOEmergency ProviderActiveTeam MemberRelationshipSpecialtyStart DateEnd Date Jamia Johansen MD ReferringOB/GYN2/18/20 Team Status: Inactive Member Role Status Dates Ga Marques PA-C Primary Care Provider Activ geena Rondon , APRNEmergency ProviderActive Team Status: Inactive Member Role Status Dates Ga Marques PA-C Primary Care Provider Activ geena Laguna , APRNEmergency ProviderActiveTeam MemberRelationshipSpecialty Start DateEnd Date Jamia Johansen MD ReferringOB/GYN2/18/20Team MemberRelationshipSpecialtyStart DateEnd Date Jamia Johansen MD ReferringOB/GYN2/18/20Team MemberRelationshipSpecialtyStart DateEnd Date Jamia Johansen MD ReferringOb/Gyn2/18/20Team MemberRelationshipSpecialtyStart DateEnd Date Jamia Johansen MD ReferringOb/Gyn2/18/20Team MemberRelationshipSpecialtyStart DateEnd Date Jamia Johansen MD ReferringOb/Gyn2/18/20Team MemberRelationshipSpecialtyStart DateEnd Date Jamia Johansen MD ReferringOb/Gyn2/18/20Team MemberRelationshipSpecialtyStart DateEnd Date Jamia Johansen MD ReferringOb/Gyn2/18/20Team MemberRelationshipSpecialtyStart DateEnd Date Jamia Johansen MD ReferringOb/Gyn2/18/20Team MemberRelationshipSpecialtyStart DateEnd Date Jamia Johansen MD ReferringOb/Gyn2/20Team MemberRelationshipSpecialtyStart DateEnd Date Jamia Johansen MD ReferringOb/Gyn2/Team MemberRelationshipSpecialtyStart DateEnd Date Jamia Johansen MD ReferringOb/Gyn2/20Team MemberRelationshipSpecialtyStart DateEnd Date Ga Marques PA-C [address] [place] [address] PCP - General02/11/23 Rigoberto Montano DO [address] [place] [address] Physicians [facility] [address], [place] [address] Referring PhysicianObstetrics and Gynecology03/23/24Team MemberRelationship SpecialtyStart DateEnd Date Jamia Johansen MD ReferringOb/Gyn2/18/20 Team Status: Active Member Role Status Dates PHYSICIAN NO FAMILY Primary Care Provider Active Team Status: Inactive Member Role Status Dates Rigoberto Montano Attending Provider Active Start: [facility] 2023 End: January 24HYSICIAN NO FAMILYPrimary Care ProviderActiveStart: January 25, 2024 End: January 25, 2024 Team Status: Inactive Member Role Status Dates PHYSICIAN NO FAMILY Primary Care Provider Active Start: April 05, 2024 End: April 05rthuCORIE Gonzalez-Lupeergeanjel ProviderActiveStart: April 05, 2024 End: April 05, 2024Team MemberRelationshipSpecialtyStart DateEnd Date Jamia Johansen MD ReferringOb/Gyn2/18/20 Team Status: Active Member Role Status Dates NON STAFF Primary Care Provider Active Team Status: Inactive Member Role Status Dates Rigoberto Montano Attending Provider Active Start: [place] 2023 End: April 24, 2024NON STAFFPrimary Care ProviderActiveStart: April 24, 2024 End: April 24, 2024Team MemberRelationshipSpecialtyStart DateEnd Date Jamia Johansen MD ReferringOb/Gyn2/18/20Team MemberRelationshipSpecialtyStart DateEnd Date Jamia Johansen MD ReferringOb/Gyn2/18/20Team MemberRelationshipSpecialtyStart DateEnd Date Jamia Johansen MD ReferringOb/Gyn2/18/20Team MemberRelationshipSpecialtyStart DateEnd Date Jamia Johansen MD ReferringOb/Gyn2/18/20 Team Status: Inactive Member Role Status Dates Rigoberto Montano DO Attending Provider Active Start : April 24, 2024 End: April 24, 2024NON STAFFPrimary Care ProviderActiveStart: April 24, 2024 End: April 24, 2024 Team Status: Inactive Member Role Status Dates Rigoberto Montano DO Attending Provider Active Start : July 16, 2024 End: July 16, 2024Team MemberRelationshipSpecialtyStart DateEnd Date Jamia Johansen MD ReferringOb/Gyn2/18/20Team MemberRelationshipSpecialtyStart DateEnd Date Jamia Johansen MD ReferringOb/Gyn2/18/20Team MemberRelationshipSpecialtyStart DateEnd Date Jamia Johansen MD ReferringOb/Gyn2/18/20Team MemberRelationshipSpecialtyStart DateEnd Date Jamia Johansen MD ReferringOb/Gyn2/18/20Team MemberRelationshipSpecialtyStart DateEnd Date Jamia Johansen MD ReferringOb/Gyn2/18/20Team MemberRelationshipSpecialtyStart DateEnd Date Jamia Johansen MD ReferringOb/Gyn2/18/20 Team Status: Inactive Member Role Status Dates NON STAFF Primary Care Provider Active Start: October 03, 2024 End: October 04, 2024Jodominic Garcia DO RESActiveStart: October 03, 2024 End: October 04, 2024Efrain Martin ProviderActiveStart: October 03, 2024 End: October 04, 2024Team MemberRelationshipSpecialtyStart DateEnd Date Rigoberto Montano DO [address] [facility] [address] [address], [place] [address] Referring PhysicianObstetrics and Gynecology03/23/24Team MemberRelationship SpecialtyStart DateEnd Date Ga Marques PA-C [address] [place], [place] [id number] Primary Care ProviderFamily Medicine11/25/22Team MemberRelationshipSpecialtyStart DateEnd Date Ga Marques PA-C [address] [place], [place] [id number] Primary Care ProviderFamily Medicine11/25/22Team MemberRelationshipSpecialtyStart DateEnd Date Ga Marques PA-C [address] [place], [place] [id number] Primary Care ProviderFamily Medicine11/25/22Team MemberRelationshipSpecialtyStart DateEnd Date Jamia Johansen MD ReferringOb/Gyn01/12/20Team MemberRelationshipSpecialtyStart DateEnd Date Jamia Johansen MD ReferringOb/Gyn/Team MemberRelationshipSpecialtyStart DateEnd Date Rigoberto Montano DO [address] [facility] [address], [place] [address] Referring PhysicianObstetrics and Gynecology03/23/24 Team Status: Inactive Member Role Status Dates NON STAFF Primary Care Provider Active Start: November 17, 2024 End: November 17, 2024John A Javier Cobb ProviderActiveStart: November 17, 2024 End: November 17, 2024 Team Status: Inactive Member Role Status Dates NON STAFF Primary Care Provider Active Start: November 22, 2024 End: November 22, 2024Geovanni Reyes ProviderActiveStart: November 22, 2024 End: November 22, 2024 Team Status: Inactive Member Role Status Dates NON STAFF Primary Care Provider Active Start: February 10, 2025 End: February 10Germaine Brown ProviderActiveStart: February 10, 2025 End: February 10, 2025 Team Status: Inactive Member Role Status Dates PHYSICIAN NO FAMILY Primary Care Provider Active Start: March 20, 2025 End: March 20, 2025Javier Posada Jr ProviderActiveStart: March 20, 2025 End: March 20, 2025 Team Status: Inactive Member Role Status Dates PHYSICIAN NO FAMILY Primary Care Provider Active Start: March 23, 2025 End: March 23, 2025Efrain Jeffrey ProviderActiveStart: March 23, 2025 End: March 23, 2025 Team Status: Inactive Member Role Status Dates PHYSICIAN NO FAMILY Primary Care Provider Active Start: April 15, 2025 End: April 15, 2025Germaine Calvo ProviderActiveStart: April 15, 2025 End: April 15, 2025Team MemberRelationshipSpecialtyStart DateEnd Date Rigoberto Montano DO [address] [place] [address] [facility]11/25/24 Ga Marques PA-C [address] [place] [address] Primary [facility] ProviderP[facility]11/25/22Team MemberRelationshipSpecialtyStart DateEnd Date Rigoberto Montano DO [address] [place] [address] PCP [facility]11/25/24 Ga Marques PA-C [address] [place] [address] Primary Care ProviderFasancta maria hospital Medicine11/25/22Team MemberRelationshipSpecialtyStart DateEnd Date Lynn Montanoy, DO [facility] [place] [address] PCP [facility]11/25/24 Ga Marques PA-C [address] [place] [address] Primary Care ProviderP[facility]11/25/22Team MemberRelationshipSpecialtyStart DateEnd Date Rigoberto Montano, DO [address] [place] [address] PCP [facility]11/25/24 Ga Marques PA-C [address] [place] [address] Primary Care ProviderFaCity of Hope, [place]11/25/22 Team Status: Inactive Member Role Status Dates PHYSICIAN NO FAMILY Primary Care Provider Active Start: May 06, 2025 End: May 06, 2025Kelsea Joseph APRN BARROW WORKER HELPER-CAttending ProviderActiveStart: May 06, 2025 End: May 06, 2025 Team Status: Inactive Member Role Status Dates PHYSICIAN NO FAMILY Primary Care Provider Active Start: June 02, 2025 End: June 02Geovanni Escobar ProviderActiveStart: June 02, 2025 End: June 02, 2025 Team Status: Inactive Member Role Status Dates PHYSICIAN NO FAMILY Primary Care Provider Active Start: June 12, 2025 End: June 12Geovanni Escobar ProviderActiveStart: June 12, 2025 End: June 12, 2025 Team Status: Inactive Member Role Status Dates PHYSICIAN NO FAMILY Primary Care Provider Active Start: June 16, 2025 End: June 16, 2025Kelsea Joseph APRN BARROW WORKER HELPER-CAttending ProviderActiveStart: June 16, 2025 End: June 16, 2025Team MemberRelationshipSpecialtyStart DateEnd Date Rigoberto Montano, DO [address] [place] [address] PCP - [facility]11/25/24 Unallocated, Dudley ProviderMD [facility] [place] [address] PCP - [facility]06/18/25 Ga Marques PA-C [address] [place] [address] Primary Care ProviderPiedmont Eastside [facility] Center11/25/22Team MemberRelationshipSpecialtyStart DateEnd Date Rigoberto Montano, DO [address] [place] [address] PCP - [facility]11/25/24 Unallocated, Dudley Cook MD [address] [place] [address] PCP - [facility]06/18/25 Ga Marques PA-C [address] [place] [address] [facility]Federal [facility]11/25/22 Team Status: Inactive Member Role Status Dates PHYSICIAN NO FAMILY Primary Care Provider Active Start: June 28, 2025 End: June 28Javier Pan ProviderActiveStart: June 28, 2025 End: June 28, 2025 Team Status: Active Member Role Status Dates PHYSICIAN NO FAMILY Primary Care Provider Active Start: June 28, 2025 Kelsea Joseph APRN BARROW WORKER HELPER-CAttending ProviderActiveStart: June 28, 2025 Team Status: Inactive Member Role Status Dates PHYSICIAN NO FAMILY Primary Care Provider Active Start: June 28, 2025 End: June 28, 2025Kelsea Joseph APRN BARROW WORKER HELPER-CAttending ProviderActiveStart: June 28, 2025 End: June 28, 2025Team MemberRelationshipSpecialtyStart DateEnd Date Rigoberto Montano DO [address] [place] [address] PCP - [facility]11/25/24 Unallocated, [place] Provider, [address] [place] [address] PCP - [facility]06/18/25 Ga Marques PA-C [address] [place] [address] Primary Care ProviderFaCity of Hope, [place]11/25/22Team MemberRelationshipSpecialtyStart DateEnd Date Krystal Koehler MD [address] [facility] [address] [place] [address] PCP - [facility]03/25/25 Krystal Koehler MD [address] [place] [address] 2, [facility] [address] [place] [address] PCP - GeneralCardiology07/28/25 Rigoberto Montano DO [address] [facility] Physicians [facility] 1, [facility] [place] [address] Referring PhysicianObstetrics and Gynecology03/23/24Team MemberRelationship SpecialtyStart DateEnd Date Rigoberto Montano DO [address] [place] [address] PCP - [facility]11/25/24 Unallocated, Dudley ProviderMD [address] [place] [address] PCP - [facility]06/18/25 Ga Marques PA-C [address] [place] [address] Primary Care ProviderPiedmont Eastside Medical Center11/25/22Te MemberRelationshipSpecialtyStart DateEnd Date Rigoberto Montano, DO [facility] [address] [facility] [place] [address] PCP - [facility]11/25/24 Unallocated, Dudley Cook MD [address] [place] [address] PCP - [facility]06/18/25 Ga Marques PA-C [address] [place] [address] Primary Care ProviderPiedmont [facility] Center11/25/22Team MemberRelationshipSpecialtyStart DateEnd Date Jamia Johansen MD ReferringOb/Gyn2/Team MemberRelationshipSpecialtyStart DateEnd Date Jamia Johansen MD ReferringOb/Gyn2/Team MemberRelationshipSpecialtyStart DateEnd Date Rigoberto Montano, DO [facility] [place] [address] PCP - [facility]11/25/24 Unallocated, Noms Joyce, [address] [place], [place] [phone] PCP - [facility]06/18/25 Ga Marques PA-C [address] [place] [address] Primary Care ProviderFamily Medicine11/25/22 Goals (unrecognized section and content) Goals may [...] or prosecute any alcohol or drug abuse patient.[facility] HospitalIn the event this information is protected by the Federal Confidentiality of Alcohol and Drug Abuse Patient Records regulations: The Federal rules restrict any use of the information to criminally investigate or prosecute any alcohol or drug abuse patient.[facility] HospitalIn the event this information is protected by the Federal Confidentiality of Alcohol and Drug Abuse Patient Records regulations: The Federal rules restrict any use of the information to criminally investigate or prosecute any alcohol or drug abuse patient.[facility] HospitalIn the event this information is protected by the Federal Confidentiality of Alcohol and Drug Abuse Patient Records regulations: The Federal rules restrict any use of the information to criminally investigate or prosecute any alcohol or drug abuse patient.[facility] HospitalIn the event this information is protected by the Federal Confidentiality of Alcohol and Drug Abuse Patient Records regulations: The Federal rules restrict any use of the information to criminally investigate or prosecute any alcohol or drug abuse patient.[facility] HospitalIn the event this information is protected by the Federal Confidentiality of Alcohol and Drug Abuse Patient Records regulations: The Federal rules restrict any use of the information to criminally investigate or prosecute any alcohol or drug abuse patient.[facility] HospitalIn the event this information is protected by the Federal Confidentiality of Alcohol and Drug Abuse Patient Records regulations: The Federal rules restrict any use of the information to criminally investigate or prosecute any alcohol or drug abuse patient.[facility] HospitalIn the event this information is protected by the Federal Confidentiality of Alcohol and Drug Abuse Patient Records regulations: The Federal rules restrict any use of the information to criminally investigate or prosecute any alcohol or drug abuse patient.[facility] HospitalIn the event this information is protected by the Federal Confidentiality of Alcohol and Drug Abuse Patient Records regulations: The Federal rules restrict any use of the information to criminally investigate or prosecute any alcohol or drug abuse patient.[facility] HospitalIn the event this information is protected by the Federal Confidentiality of Alcohol and Drug Abuse Patient Records regulations: The Federal rules restrict any use of the information to criminally investigate or prosecute any alcohol or drug abuse patient.[facility] HospitalIn the event this information is protected by the Federal Confidentiality of Alcohol and Drug Abuse Patient Records regulations: The Federal rules restrict any use of the information to criminally investigate or prosecute any alcohol or drug abuse patient.[facility] HospitalIn the event this information is protected by the Federal Confidentiality of Alcohol and Drug Abuse Patient Records regulations: The Federal rules restrict any use of the information to criminally investigate or prosecute any alcohol or drug abuse patient.[facility] HospitalIn the event this information is protected by the Federal Confidentiality of Alcohol and Drug Abuse Patient Records regulations: The Federal rules restrict any use of the information to criminally investigate or prosecute any alcohol or drug abuse patient.[facility] HospitalIn the event this information is protected by the Federal Confidentiality of Alcohol and Drug Abuse Patient Records regulations: The Federal rules restrict any use of the information to criminally investigate or prosecute any alcohol or drug abuse patient.[facility] HospitalIn the event this information is protected by the Federal Confidentiality of Alcohol and Drug Abuse Patient Records regulations: The Federal rules restrict any use of the information to criminally investigate or prosecute any alcohol or drug abuse patient.[facility] HospitalIn the event this information is protected by the Federal Confidentiality of Alcohol and Drug Abuse Patient Records regulations: The Federal rules restrict any use of the information to criminally investigate or prosecute any alcohol or drug abuse patient.[facility] HospitalIn the event this information is protected by the Federal Confidentiality of Alcohol and Drug Abuse Patient Records regulations: The Federal rules restrict any use of the information to criminally investigate or prosecute any alcohol or drug abuse patient.[facility] HospitalIn the event this information is protected by the Federal Confidentiality of Alcohol and Drug Abuse Patient Records regulations: The Federal rules restrict any use of the information to criminally investigate or prosecute any alcohol or drug abuse patient.[facility] HospitalIn the event this information is protected by the Federal Confidentiality of Alcohol and Drug Abuse Patient Records regulations: The Federal rules restrict any use of the information to criminally investigate or prosecute any alcohol or drug abuse patient.[facility] HospitalIn the event this information is protected by the Federal Confidentiality of Alcohol and Drug Abuse Patient Records regulations: The Federal rules restrict any use of the information to criminally investigate or prosecute any alcohol or drug abuse patient.[facility] HospitalIn the event this information is protected by the Federal Confidentiality of Alcohol and Drug Abuse Patient Records regulations: The Federal rules restrict any use of the information to criminally investigate or prosecute any alcohol or drug abuse patient.[facility] HospitalIn the event this information is protected by the Federal Confidentiality of Alcohol and Drug Abuse Patient Records regulations: The Federal rules restrict any use of the information to criminally investigate or prosecute any alcohol or drug abuse patient.[facility] HospitalIn the event this information is protected by the Federal Confidentiality of Alcohol and Drug Abuse Patient Records regulations: The Federal rules restrict any use of the information to criminally investigate or prosecute any alcohol or drug abuse patient.[facility] HospitalIn the event this information is protected by the Federal Confidentiality of Alcohol and Drug Abuse Patient Records regulations: The Federal rules restrict any use of the information to criminally investigate or prosecute any alcohol or drug abuse patient.[facility] HospitalIn the event this information is protected by the Federal Confidentiality of Alcohol and Drug Abuse Patient Records regulations: The Federal rules restrict any use of the information to criminally investigate or prosecute any alcohol or drug abuse patient.[facility] HospitalIn the event this information is protected by the Federal Confidentiality of Alcohol and Drug Abuse Patient Records regulations: The Federal rules restrict any use of the information to criminally investigate or prosecute any alcohol or drug abuse patient.[facility] HospitalIn the event this information is protected by the Federal Confidentiality of Alcohol and Drug Abuse Patient Records regulations: The Federal rules restrict any use of the information to criminally investigate or prosecute any alcohol or drug abuse patient.[facility] HospitalIn the event this information is protected by the Federal Confidentiality of Alcohol and Drug Abuse Patient Records regulations: The Federal rules restrict any use of the information to criminally investigate or prosecute any alcohol or drug abuse patient.[facility] HospitalIn the event this information is protected by the Federal Confidentiality of Alcohol and Drug Abuse Patient Records regulations: The Federal rules restrict any use of the information to criminally investigate or prosecute any alcohol or drug abuse patient.[facility] HospitalIn the event this information is protected by the Federal Confidentiality of Alcohol and Drug Abuse Patient Records regulations: The Federal rules restrict any use of the information to criminally investigate or prosecute any alcohol or drug abuse patient.[facility] HospitalIn the event this information is protected by the Federal Confidentiality of Alcohol and Drug Abuse Patient Records regulations: The Federal rules restrict any use of the information to criminally investigate or prosecute any alcohol or drug abuse patient.[facility] HospitalIn the event this information is protected by the Federal Confidentiality of Alcohol and Drug Abuse Patient Records regulations: The Federal rules restrict any use of the information to criminally investigate or prosecute any alcohol or drug abuse patient.[facility] HospitalIn the event this information is protected by the Federal Confidentiality of Alcohol and Drug Abuse Patient Records regulations: The Federal rules restrict any use of the information to criminally investigate or prosecute any alcohol or drug abuse patient.[facility] HospitalIn the event this information is protected by the Federal Confidentiality of Alcohol and Drug Abuse Patient Records regulations: The Federal rules restrict any use of the information to criminally investigate or prosecute any alcohol or drug abuse patient.[facility] HospitalIn the event this information is protected by the Federal Confidentiality of Alcohol and Drug Abuse Patient Records regulations: The Federal rules restrict any use of the information to criminally investigate or prosecute any alcohol or drug abuse patient.[facility] HospitalIn the event this information is protected by the Federal Confidentiality of Alcohol and Drug Abuse Patient Records regulations: The Federal rules restrict any use of the information to criminally investigate or prosecute any alcohol or drug abuse patient.[facility] HospitalIn the event this information is protected by the Federal Confidentiality of Alcohol and Drug Abuse Patient Records regulations: The Federal rules restrict any use of the information to criminally investigate or prosecute any alcohol or drug abuse patient.[facility] HospitalIn the event this information is protected by the Federal Confidentiality of Alcohol and Drug Abuse Patient Records regulations: The Federal rules restrict any use of the information to criminally investigate or prosecute any alcohol or drug abuse patient.[facility] HospitalIn the event this information is protected by the Federal Confidentiality of Alcohol and Drug Abuse Patient Records regulations: The Federal rules restrict any use of the information to criminally investigate or prosecute any alcohol or drug abuse patient.[facility] Reason for Visit (unrecogniz ed section and content) ReasonCommentsPatient QuestionReasonCommentsEstablished PatientFollow UpPain ReasonCommentsEstablished PatientPainSwellingReasonCommentsRadiology XRReason CommentsSchedule SurgeryReasonCommentsSurgical FollowupReasonCommentsIngrown ToenailEstablished PatientReasonCommentsPT EvalPatient EducationPT Discharge SpecialtyDiagnoses / ProceduresReferred By ContactReferred To ContactREHAB AND SP[facility]TS THERAP[facility] Diagnoses Type 2 diabetes mellitus with diabetic polyneuropathy, unspecified whether half-way insulin use (HCC) BMI 39.0-39.9,adult Difficulty walking Eversion deformity of foot, left Painful scar Procedures CONSULT TO PHYSICAL THERAPY PHYSICAL THERAPY EVALUATION HIGH COMPLEX 45 MINS Eulalia Fuentes DPM [address] [place] [address] [facility] [place] [address] [place] [address] Referral IDStatusReasonStbaileyton DateExpiration DateVisits RequestedVisits [id number] Auto-Generated Referral [id number] UpdatePatient QuestionReasonComments Anesthesia ConsultReasonCommentsAnnual ExamReasonCommentssurgery question and infected toeReasonCommentsEstablished PatientPre-Op VisitReasonCommentsFMLA PaperworkReasonCommentsEstablished PatientPost OpReasonCommentsPatient Update ReasonCommentsPost NiQgcpoqHojucwpsOqcvjbgdyrUfaowoStyfiqvmLbivgi-zq9-0Bwqlkpniy Diagnoses / ProceduresReferred By ContactReferred To ContactCardiology Diagnoses Primary hypertension Procedures Follow Up In Cardiology Krystal Koehler MD [address] [place] [id number] Krystal Koehler MD [address] [address] Referral IDStatusReasonStart DateExpiration DateVisits RequestedVisits [id number]-hc VisitReason CommentsEstablished PatientFollow UpPainNewReasonCommentsFollow-up6 months SpecialtyDiagnoses / ProceduresReferred By ContactReferred To ContactCardiology Diagnoses Primary hypertension Procedures Follow Up In Cardiology Krystal Koehler MD [address] [facility] [address] [place] [address] Phone: tel: fax: Krystal Koehler MD [address] [facility] [address] [place] [address] Phone: tel: fax: Referral IDStatusReasonStart DateExpiration DateVisits RequestedVisits [id number] PainPt present today for pelvic and lower back pain. Pt complains of having frequent yeast infections. (Itching)ReasonCommentsWell Women VisitReasonCommentsFollow-up Lt breast wound- past ' pt- Also has a spot on Left buttock and Right hip. Has gone to the ER several times and they have referred her back to us for evaluation.JdmjecMxydgwos8su po Exc. & drain Lt breast, Lt buttock, Rt back massesReasonCommentsShortness of BreathFlu SymptomsReasonCommentsConsultPt present today to discuss Left ovary pain.ReasonCommentsEstablished PatientFollow Up INFORMATION SOURCE (unrecogn ized section and content) DATE CREATED AUTHOR 02/12/2023 [employer] DATE CREATED AUTHOR AUTHOR'S ORGANIZ ATION 03/29/2023 [facility] DATE CREATED AUTHOR AUTHOR'S ORGANIZ ATION 06/14/2023 [facility] DATE CREATED AUTHOR AUTHOR'S ORGANIZ ATION 05/27/[address] [facility] DATE CREATED AUTHOR AUTHOR'S ORGANIZ ATION 03/23/2025 [facility] DATE CREATED AUTHOR AUTHOR'S ORGANIZ ATION 07/05/2025 [facility] DATE CREATED AUTHOR AUTHOR'S ORGANIZ ATION 07/30/2025 [facility] DATE CREATED AUTHOR AUTHOR'S ORGANIZ ATION 08/02/2025 [facility] DATE CREATED AUTHOR AUTHOR'S ORGANIZ ATION 08/07/2025 [facility] DATE CREATED AUTHOR AUTHOR'S ORGANIZ ATION 08/31/2025 [facility] DATE CREATED AUTHOR AUTHOR'S ORGANIZ ATION 09/27/2025 [facility] Scheduled Active and Recently Administ ered Medications (unrecognized section and content) Medication Order acetaminophen (Tylenol) tablet 650 mg (COMPLETED) 650 mg, oral, Once, On Sat07/28/25 at 1545, For 1 dose, If ordered PRN for pain, nurse is permitted to administer this medication for higher pain scores based on patient preference? Yes * 1548 (Given - Provider: José Nguyen, CHRIS) guaiFENesin (Robitussin) 100 mg/5 mL syrup 200 mg (COMPLETED) 200 mg, oral, Once, On Sat07/28/25 at 1545, For 1 dose * 1549 (Given - Provider: José Nguyen, CHRIS) ipratropium-albuteroL (Duo-Neb) 0.5-2.5 mg/3 mL nebulizer solution 3 mL (COMPLETED) 3 mL, nebulization, Every 20 min, First dose on Sat07/28/25 at 1545, For 3 doses * 1549 (Given - Provider: José Nguyen, CHRIS) * 1601 (Given - Provider: José Nguyen, RN) * 1603 (Given - Provider: José Nguyen, CHRIS) magnesium sulfate 2 g in sterile water for injection 50 mL (COMPLETED) 2 g, intravenous, at 150 mL/hr, Administer over 20 Minutes, Once, On Sat07/28/25 at 1640, For 1 dose, Indication for rapid magnesium sulfate IV infusion: Asthma * 1645 (New Bag - Provider: José Nguyen, RN) * 1852 (Stopped - Provider: José Nguyen, RN) FOR RECORDS PERTAINING TO PATIENTS WHO ARE [...] BE BASED ON THE PRIMARY CLINICAL RECORDS. [employer] provides no warranty or guarantee of the accuracy or completeness of information in this document.
== END 2025-10-19 12:54 | disposition home or self-care (01) ==
LOC: PST 12:54
PROVIDERS: Visit Provider Obstetrics & Gynecology
DX: Z01.818 Encounter for other preprocedural examination (principal); N94.89 Other specified conditions associated with female genital organs and menstrual cycle; R10.30 Lower abdominal pain, unspecified
CPT/HCPCS: 80048

== ENCOUNTER 2025-10-29 09:00 | Day surgery (SDC) | payer OTHER, SELFPAY ==
[2025-10-19 13:29] VITALS: BP 117/79; PULSE 99; TEMP 36.6; O2SAT 100; BMI 34.2
[2025-10-29] VITALS (18 sets, daily range): BP systolic 118–180; BP diastolic 76–104; PULSE 81–97; TEMP 36.2–36.3; O2SAT 91–100; BMI 33.7
--- OUTSIDE RECORDS SUMMARY | 2025-10-29 09:08 | XMS_ITS | CCD ---
Author Organization [facility] Care Team Providers Care Professor Of Religion Name Role Phone NON STAFF Primary Care Provider DO Robert Singh Emergency Provider IVONE Marques Primary Care Provider IVONE Andrews Emergency Provider Corrina Escalona MD, Jamia Bueno Unavailable [phone] Angelo [facility] Radha Seay Emergency Provider IVONE Marques Attending Provider [phone] MD Derek Viera Attending Provider IVONE Marques Primary Care Provider DO Mk Parker Emergency Provider IVONE Marques Primary Care Provider Rigoberto Montano Attending Provider Corrina Escalona MD, [facility] Unavailable [phone] CASIE Rondon Emergency Provider IVONE Marques Attending Provider [phone] IVONE Andrews Emergency Provider IVONE Marques Primary Care Provider MD Derek Viera Attending Provider IVONE Marques Primary Care Provider CASIE Laguna Emergency Provider IVONE Marques Primary Care Provider Nita, DO Isidoro M Emergency Provider [phone] IVONE Marques Primary Care Provider CASIE Laguna Emergency Provider [phone] Tuwy, DO Isidoro M Emergency Provider Rigoberto Montano Attending Provider IVONE Marques Primary Care Provider [facility], DO PortilloIsidoro M Emergency Provider [facility] DO Aron Trevino Emergency Provider Ga Moran Unavailable Unavailable Unavailable IVONE Marques Primary Care Provider [facility], DO Isidoro Bueno Emergency Provider Rigoberto Montano [facility]ending [facility] E Emergency Provider DO Aron Trevino Emergency Provider Govind Koehler MD Krystal Attending Provider [facility] Primary Care Unavaila ble DUSTY ., DR JAMIL Attending Unavailable DUSTY ., DR JAMIL Admitting Unavailable DUSTY ., DR JAMIL Consulting Unavailable [facility] Primary Care Unavaila ble DUSTY ., DR JAMIL Attending Unavailable DUSTY ., DR JAMIL Admitting Unavailable DUSTY ., DR JAMIL Admitting Unavailable [facility] Primary Care Unavaila ble DUSTY ., DR JAMIL Attending Unavailable DUSTY ., DR JAMIL Consulting Unavailable DUSTY ., DR JAMIL Consulting Unavailable [facility] Primary Care Unavaila ble DUSTY ., DR JAMIL Attending Unavailable DUSTY ., DR JAMIL Admitting Unavailable DUSTY ., DR JAMIL Consulting Unavailable [facility] Primary Care Unavaila ble DUSTY [...] Attending Unavailable Koehler, Dr. Rice Attending Unavailable Safnve, CASIE Reynoso Emergency Provider [phone] IVONE Marques Primary Care Provider Alcon PLAN NURSEAngeles ChristineHanane N Emergency Provider [phone] DO Isidoro Moya Emergency Provider Jamia Johansen MD Unavailable IVONE Marques Primary Care Provider CASIE Rondon Emergency Provider IVONE Marques Attending Provider [phone] Ga Marques PA-C Primary Care Provider Rigoberto Montano DO Unavailable Rigoberto Montano Attending Provider NO FAMILY, PHYSICIAN Primary Care Provider Unava ilable IVONE Andrews Emergency Provider NO FAMILY, PHYSICIAN Primary Care Provider Unava ilable Dusty, Rigoberto Attending Provider NON STAFF Primary Care Provider Unavailabl e ARMIN CARBAJAL Primary Care Unavailable Dusty, DO Rigoberto Attending Provider Dusty DO, Rigoberto Attending Provider NON STAFF Primary Care Provider Unavailabl e Mk Parker DO Emergency Provider Unavailable Primary Care Provider Unavailabl e Dusty DOLynny Steffen Unavailable NON STAFF Primary Care Provider Unavailabl e Eulalia Cobb MD Emergency Provider [phone] Be Laguna APRN Emergency Provider [phone] Miquel Andrews PA-C Emergency Provider NON STAFF Primary Care Provider Unavailabl e NO FAMILY, PHYSICIAN Primary Care Provider Unava ilable Luis Miguel SANCHEZ, Ga Burris Emergency Provider [phone] Aron Trevino DO Emergency Provider Unavai KRYSTAL Castro Attending Unavailable KRYSTAL KOEHLER Referring Unavailable GA MARQUES Primary Care Unavailable KRYSTAL KOEHLER Attending Unavailable KRYSTAL KOEHLER Referring Unavailable Momo York PA-C Emergency Provider Dusty DO Rigoberto Unavailable Aron Trevino DO Emergency Provider UnavaKelsea Villeda APRN Attending Provider Hanane Rondon APRN Emergency Provider [phone] Unallocated Dudley SANCHEZ Provider Primary Care Provi [...] NON STAFF Primary Care Unavailable Rodo SANCHEZ [facility] Unavailable Rodo SANCHEZ Krystal Primary Care Provider KOEHLER, KRYSTAL Primary Care Unavailable LORI LION Referring Unavailable [facility] Primary Care Unavailable LORI LION Referring Unavailable [facility] Primary Care Unavailable RIGOBERTO MONTANO Attending Unavailable [...] Allergen(s)Allergy TypeDate of OnsetReaction(s) FacilityCorticosteroids (2 sources)predniSONEDrug Wcifrro59-49-8917Qndgl: See CommentsCincinnati Va [facility] Center NSAIDs (2 sources)KetorolacDrug [id number] ClinicOpioid Agonists (2 sources)traMADolDrug Ktdwmja45-92-5204Olybw: See CommentsCincinnati Va Medical Center (20 sources)Ketorolac; Translations: [KETOROLAC]Drug Qxowcud39-81-7318EktyrSelect [facility] (20 sources)predniSONE; Translations: [prednisone]Drug Vknmmvh44-55-1987Gmquu: See Comments, Hives, Other, [facility] LimaComment on above:MAKES ME CRAZY (20 sources)traMADol; Translations: [tramadol]Drug Obroeob91-40-8827Qdhfy: See Comments, Anaphylaxis, Other, [facility] LimaComment on above:STOPS HEART (1 source)KetorolacDrug AllergyThe [facility] Medications Current Medications MedicationDrug Class(es)DatesSig (Normalized)Sig (Original)acetaminophen 325 mg / HYDROcodone bitartrate 5 mg oral tablet (20 sources)Opioid AgonistStart: 59-52-7493qfhl 1 tablet by mouth every six hours as needed for painStart: 04-15-2025 End: 34-96-6477pfby 1 tablet by mouth every four to six hours as needed for pain Hydrocodone-Acetaminophen 5-325 mg tablet Discontinued 1 TAB PO EVERY 4-6 HOURS as needed for pain 7 3 April 15, 2025 June 12, 2025 5:27pmStart: 02-10-2025 End: 10-74-5248wevh 1 tablet by mouth every six hours as needed for pain Hydrocodone-Acetaminophen 5-325 mg tablet Discontinued 1 - 2 TAB PO Q6H as needed for pain 15 3 March 20, 2025 June 12, 2025 5:27pmStart: 05-23-2023 End: 95-72-0570ezpq 1 tablet by mouth every six hours as needed for pain Hydrocodone-Acetaminophen 5-325 mg tablet Discontinued 1 TAB PO Q6H as needed for pain 8 3 July 01, 2023 October 23, 2023 8:16pmStart: 05-21-2022 End: 72-22-3524vbgt 1 tablet by mouth every six hours as needed for pain Hydrocodone-Acetaminophen 5-325 mg tablet Discontinued 1 TAB PO Q6H as needed for pain 28 May 21, 2022 September 13, 2022 9:21amStart: 02-20-2022 End: 30-36-8501uznd 1 tablet by mouth every six hours as needed for pain Hydrocodone-Acetaminophen 5-325 mg tablet Discontinued 1 TAB PO Q6H as needed for pain 12 3 February 20, 2022 March 08, 2022 10:50amacetaminophen 325 mg / oxyCODONE hydrochloride 5 mg oral tablet (1 source)Opioid AgonistStart: 05-01-2024 End: 86-45-7804eyqf 1 tablet by mouth every six hours as needed for pain oxyCODONE-acetaminophen (PERCOCET) 5-325 mg tablet Indications: pain Take 1 tablet by mouth every 6hours as needed for pain for up to 5 days. 20 tablet 0 05/01/2024 05/06/2024 [id number] 200 actuat albuterol 0.09 mg/actuat metered dose inhaler (20 sources)beta2-Adrenergic AgonistStart: 07-28-2025 End: 62-89-6129uima 2 puff(s) by inhalation every four hours for wheezing albuterol 90 mcg/actuation inhaler Indications: Exacerbation of asthma, unspecified asthma severity, unspecified whether persistent ([facility]) Inhale 2 puffs every 4 hours if needed for wheezing. 18 g007/28/2025 08/27/2025 Active Start: 17-09-2552Tjbdpcbi HFA 108 (90 Base) MCG/ACT inhaler 06/02/2023 Active Start: 02-07-2022 End: 69-81-6243ryhn 2 puff(s) by mouth every four hoursVENTOLIN HFA 90 mcg/actuation inhaler inhale 2 puffs by mouth and INTO THE LUNGS every 4 hours if needed 0 02/07/2022 03/20/2024 Discontinued (Course of therapy completed) Start: 80-02-5815mxxc 2 puff(s) by inhalation every six hours [...] 50 mg oral tablet (20 sources)Tricyclic AntidepressantStart: 00-56-6313fmdh 1 tablet by mouth once daily at bedtimeamitriptyline (ELAVIL) 50 mg tablet Take 50 mg by mouth daily at bedtime. 10/16/2021 ActiveComment on above:Take 50 mg by mouth daily at bedtime.atorvastatin (20 sources)HMG-CoA Reductase Inhibitoratorvastatin calcium (ATORVASTATIN ORAL) Take by mouth once daily. Activeatorvastatin calcium (ATORVASTATIN ORAL) Take by mouth once daily. 0 ActiveBoric Acid 600 MG suppository (12 sources)Start: 32-68-8282Zlhhd Acid 600 MG suppository Indications: Yeast infection Insert 600 mg into the vagina Daily 14 suppository 05/06/2025 Active cariprazine 4.5 mg oral capsule (20 sources)Atypical AntipsychoticStart: 89-00-3201yjhk 1 capsule by mouth once dailyVRAYLAR 4.5 mg capsule take 1 take by mouth once daily 10/17/2021 Active Comment on above:take 1 take by mouth once dailycefadroxil 500 mg oral capsule (3 sources)Cephalosporin AntibacterialStart: 03-17-2024 End: 52-37-0401ndxw 1 capsule by mouth twice dailycefADROxil (DURICEF) 500 mg capsule Take 1 capsule by mouth two times a day for 7 days. 14 capsule 0 03/17/2024 03/24/2024 Activecephalexin 500 mg oral capsule (20 sources)Cephalosporin AntibacterialStart: 07-12-2025 End: 50-26-0694vmkm 1 capsule by mouth every eight hourscephalexin (Keflex) 500 MG capsule Indications: Left buttock abscess Take 1 capsule (500 mg) by mouth every 8 (eight) hours for 7 days 21 capsule 07/12/2025 07/19/2025 ActiveStart: 04-15-2025 End: 01-60-5115llbb 2 capsules by mouth twice dailyCephalexin 500 mg capsule Discontinued 1000 MG PO Twice daily 21 06April 15, 2025 12:00am June 12, 2025 5:26pmStart: 10-23-2023 End: 86-53-2408aiez 1 capsule by mouth three times dailyCephalexin 500 mg capsule Discontinued 500 MG PO Three times daily 14 06October 23, 2023 1:00am November 22, 2024 1:52pmStart: 07-01-2023 End: 67-43-2747dzne 1 capsule by mouth every eight hoursCephalexin 500 mg capsule Discontinued 500 MG PO Q8H 30 July 01, 2023 12:00am October 23, 2023 8:16pmStart: 08-03-2022 End: 83-33-5559ahyk 1 capsule by mouth every eight hoursCephalexin 500 mg capsule Discontinued 500 MG PO Q8H 23 09August 03, 2022 12:00am January 04, 2023 2:35pmcetirizine hydrochloride 10 mg oral tablet (9 sources)Histamine-1 Receptor AntagonistStart: 64-94-3704nptm 1 tablet by mouth once dailycitalopram 20 mg oral tablet (20 sources)Serotonin Reuptake InhibitorStart: 07-94-0391fynn 1 tablet by mouth once daily at bedtimecitalopram (CELEXA) 20 mg tablet Take 20 mg by mouth daily at bedtime. 10/16/2021 ActiveComment on above:Take 20 mg by mouth daily at bedtime.cyclobenzaprine hydrochloride 10 mg oral tablet (20 sources)Muscle RelaxantStart: 54-35-5047bhbebxggyandqvr (Flexeril) 10 MG tablet 10/04/2022 ActiveStart: 03-08-2022 End: 30-67-6230ujko 1 tablet by mouth three times daily as needed for muscle spasmsCyclobenzaprine 10 mg tablet Discontinued 10 MG PO Three times daily as needed for muscle spasm June 02, 2025 12:00am June 12, 2025 5:27pm empagliflozin 25 mg oral tablet (17 sources)Sodium-Glucose Cotransporter 2 InhibitorStart: 53-65-8493pksy 1 tablet by mouth once daily24 hr etodolac 500 mg extended release oral tablet (20 sources)Nonsteroidal Anti-inflammatory DrugStart: 46-91-9815bhje 1 tablet by mouth once daily as needed for painetodolac (LODINE-XL) 500 mg 24 hr tablet take 1 tablet by mouth once daily NEEDED FOR PAIN with food 10/20/2021 Active Comment on above:take 1 tablet by mouth once daily NEEDED FOR PAIN with food fluconazole 150 mg oral tablet (2 sources)Azole AntifungalStart: 05-03-2025 End: 72-60-5722otal 1 tablet by mouth once, then take 1 tablet by mouth once fluconazole (Diflucan) 150 MG tablet Indications: Yeast infection Take 1 tablet (150 mg) by mouth 1(one) time for 1 dose This is a 1 time dose, take single tablet by mouth. 1 tablet 1 05/03/2025 05/03/2025 Teknqa917 actuat fluticasone propionate 0.11 mg/actuat metered dose inhaler (20 sources)CorticosteroidStart: 85-61-8691qerm 2 puff(s) by mouth twice daily FLOVENT HFA 110 mcg/actuation inhaler inhale 2 puffs by mouth and INTO THE LUNGS twice a day 01/11/2022 ActiveStart: 00-28-6450vkoa 1 spray(s) nasal route twice dailyfluticasone (FLONASE) [...] ml fremanezumab-vfrm 150 mg/ml auto-injector (20 sources)Start: 58-54-1855Tnnxyrmwnawu-Vfrm (Ajovy Autoinjector) 225 mg/1.5 mL auto-injector Active MG SUBCUT March 08, 2022 10:50amStart: 03-08-2022 End: 95-90-4286Hqxoblvshwsz-Vfrm (Ajovy Autoinjector) 225 mg/1.5 mL auto- injector Discontinued 225 MG SUBCUT everymonth March 08, 2022 12:00am February 10, 2025 2:58pmStart: 55-88-3385Jdmhb 225 MG/1.5ML auto-injector 06/02/2023 Activefremanezumab (Ajovy Autoinjector) 225 mg/1.5 mL auto-injector Inject 1 Pen (225 mg) under the skin every 30 (thirty) days. ActiveAjovy 225 MG/1.5ML Subcutaneous Solution Auto-injector once monthly Quantity: 0 Refills: 0 Ordered: 11-Feb-2023 DO ActiveComment on above:inject subcutaneously as directed furosemide 20 mg oral tablet (20 sources)Loop DiureticStart: 02-11-2023 End: 82-03-0299mifgnqmeyq (Lasix) 20 MG tablet 06/02/2023 ActiveStart: 71-50-1904Yonhiyxuaj Active MG TABLET March 08, 2022 10:50amStart: 01-10-2022 take 1 tablet by mouth once dailyfurosemide (LASIX) 40 mg tablet take 1 tablet by mouth once daily if needed for SWELLING 01/10/2022ctiveComment on above:take 1 tablet by mouth once daily if needed for SWELLINGlidocaine 0.04 mg/mg medicated patch (20 sources)Antiarrhythmic, Amide Local AnestheticStart: 18-41-2774cnhzh 1 dose topically once daily as needed for painStart: 02-10-2025 End: 88-68-9133vatoj 1 dose topically every twenty-four hoursLidocaine 5 % adhesive patch,medicated Discontinued 1 PATCH TOPICAL Q24H February 10, 2025 12:00am June 12, 2025 5:27pm leave on most painful area for up to 12 hrsStart: 01-13-2023 End: 14-04-4118ssxlb 1 dose topically once daily as needed for painLidocaine (Lidoderm) 5 % adhesive patch,medicated Discontinued 1 PATCH TOPICAL Daily as needed for chest pain January 13, 2023 3:34am October 23, 2023 8:16pm leave on most painful area for up to 12 hrsStart: 81-88-0220qhswg 1 dose transdermal route every twenty-four hourslidocaine (SALONPAS) 4 % patch Apply 1 Patch as directed q 24 HR. 06/24/2020 ActiveComment on above:Apply 1 Patch as directed q 24 HR.loratadine 10 mg oral tablet (20 sources)Start: 02-59-6245wxro 1 tablet by mouth once dailyloratadine (CLARITIN) [...] hydrochloride 1000 mg oral tablet (20 sources)BiguanideStart: 02-10-4078Ayxktlgig Active MG TABLET March 08, 2022 10:50amStart: 01-09-2022 End: 27-00-4518jhsg 1 tablet by mouth twice dailyMetformin 1,000 [...] mg oral tablet (20 sources)Leukotriene Receptor AntagonistStart: 59-74-2168Dvnkwhtmxku Active MG TABLET March 08, 2022 10:50amStart: 98-22-7111ptbp 1 tablet by mouth once dailymontelukast (Singulair) 10 MG tablet Take 10 mg by mouth Daily 04/04/2023 ActiveComment on above:Take 10 mg by mouth.mupirocin 0.02 mg/mg topical ointment (20 sources)RNA Synthetase Inhibitor AntibacterialStart: 32-17-0635lujcdxwcx (BACTROBAN) 2 % ointment Apply 1 application to affected area two times a day. 22 g 3 05/20/2024 ActiveComment on above:Apply 1 application to affected area two times a day.omeprazole 20 mg delayed release oral capsule (20 sources)Proton Pump InhibitorStart: 15-18-2580aisg 1 capsule by mouth once dailyomeprazole (PRILOSEC) [...] mL) pen injector (1 source)Start: 05-21-2024 End: 93-73-0276uopmjf 0.5 mg by subcutaneous injection every weekOzempic 0.25 mg or 0.5 mg (2 mg/3 mL) pen injector Indications: Diabetes mellitus type II, non insulin dependent (Multi) , Hyperlipidemia, unspecified hyperlipidemia type DIAL AND INJECT UNDER THE SKIN 0.5 MG WEEKLY 3 mL 3 05/21/2024 07/06/2024 DiscontinuedOzempic, 0.25 or 0.5 MG/DOSE, 2 MG/3ML solution pen-injector (12 sources)Start: 03-23-2024 End: 24-84-2091psyqwl 0.5 mg by subcutaneous injection every weekOzempic, 0.25 or 0.5 MG/DOSE, 2 MG/3ML solution pen-injector Inject 0.5 mg under the skin once a week 03/23/2024 06/18/2025 Discontinued (Therapy completed)Start: 03-23-2024 inject 0.5 mg by subcutaneous injection every weekOzempic, 0.25 or 0.5 MG/DOSE, 2 MG/3ML solution pen-injector Inject 0.5 mg under the skin once a week 03/23/2024 ActiveStart: 03-23-2024 End: 74-25-1055iqdfzs 0.5 mg by subcutaneous injection every weekOzempic, 0.25 or 0.5 MG/DOSE, 2 MG/3ML solution pen-injector Inject 0.5 mg under the skin once a week 03/23/2024 03/23/2025 Activemicroencapsulated potassium chloride 20 meq extended release oral tablet (20 sources)Start: 46-23-4971vqev 1 tablet by mouth three times daily at mealtimepotassium chloride CR (Klor-Con M20) 20 MEQ ER tablet take 1 tablet by mouth three times a day withfood 03/15/2023 ActiveStart: 01-10-2022 End: 22-68-5065gdkveaxva chloride CR (Klor-Con M20) 20 MEQ ER tablet 03/15/2023 Activetake 1 tablet by mouth once dailyPotassium Chloride ER 20 MEQ Oral Tablet Extended Release Take 1 tablet daily Quantity: 90 Refills:3 Ordered: 11-Feb-2023 DO ActiveComment on above:Take 20 mEq by mouth.prazosin 5 mg oral capsule (20 sources)alpha-Adrenergic BlockerStart: 85-93-0957oiph 1 capsule by mouth once dailyprazosin (MINIPRESS) 5 mg cap Take 5 mg by mouth once daily. 10/16/2021 ActiveComment on above:Take 5 mg by mouth once daily.rizatriptan 5 mg oral tablet (20 sources)Serotonin-1b and Serotonin-1d Receptor AgonistStart: 03-08-2022 Rizatriptan Active MG TABLET March 08, 2022 10:50amStart: 02-07-2022 End: 82-30-6186ygquvtqerup (MAXALT) 5 mg tablet take 1 tablet [...] semaglutide 1.34 mg/ml pen injector (10 sources)Start: 29-32-8594yadwrykbrlr (Ozempic) 2 MG/1.5ML solution pen- injector .week 11/22/2024 Activesemaglutide (Ozempic) 0.25 mg or 0.5 mg(2 mg/1.5 mL) pen injector Inject under the skin 1 (one) time per week. ActiveSemaglutide (9 sources)Start: 59-92-2574itrhwo 1 mg by subcutaneous injection once Semaglutide (Ozempic) 1 mg/dose (4 mg/3 mL) pen injector Active 1 MG SUBCUT .week November 22, 2024 1:00am Complies with drug therapyStart: 11-22-2024 inject 1 mg by subcutaneous injection onceStart: 27-22-6162otibhb 1 mg by subcutaneous injection onceSemaglutide (Ozempic) 1 mg/dose (4 mg/3 mL) pen injector Active 1 MG SUBCUT .week November 22, 2024 1:00amsemaglutide (Ozempic) 0.25 mg or 0.5 mg (2 mg/3 mL) pen injector (2 sources)Start: 07-12-2024 End: 46-57-9185kdzvkplrars (Ozempic) 0.25 mg or 0.5 mg (2 mg/3 mL) pen injector Indications: Diabetes mellitus type II, non insulin dependent (Multi) Inject 1 mg under the skin 1 (one) time per week. 6 mL 3 07/12/2024 11/01/2024 Active Start: 03-23-2024 End: 54-17-0670batdkdcltto (Ozempic) 0.25 mg or 0.5 mg (2 mg/3 mL) pen injector Indications: Diabetes mellitus type II, non insulin dependent (Multi) , Hyperlipidemia, unspecified hyperlipidemia type Inject 0.5 mg under the skin every 7 days. 0.2 mL 1 03/23/2024 03/23/2025 Activesemaglutide (OZEMPIC) 1 mg/dose (4 mg/3 mL) pen (6 sources)Start: 05-69-7732auvaab 1 mg by subcutaneous injection every week semaglutide (OZEMPIC) 1 mg/dose (4 mg/3 mL) pen Inject 1 mg subcutaneously one time a week. 10/05/2024 ActiveSITagliptin 100 mg oral tablet (20 sources)Dipeptidyl Peptidase 4 InhibitorStart: 98-66-4366zpfs 1 tablet by mouth once dailysitagliptin phosphate (JANUVIA ORAL) Take by mouth once daily. Activesitagliptin phosphate (JANUVIA ORAL) Take by mouth once daily. 0 Active sodium chloride 0.111 meq/ml nasal spray (2 sources)Start: 07-28-2025 End: 16-54-9465bihqet chloride ([place]) 0.65 % nasal spray Indications: Exacerbation of asthma, unspecified asthma severity, unspecified whether persistent ([facility]) Administer 1 spray into each nostril if needed for congestion. 30 mL 07/28/2025 07/28/2026 Activespironolactone 50 mg oral tablet (20 sources)Aldosterone AntagonistStart: 02-11-2023 End: 17-22-4825qsslwgojkwjcbn (ALDACTONE) 50 mg tablet Take 50 mg by mouth. 02/11/2023 Activeterconazole 4 mg/ml vaginal cream (3 sources)Azole AntifungalStart: 05-03-2025 End: 28-65-0560gvjptjrstco (Terazol 7) 0.4 % vaginal cream Indications: Yeast infection Insert 1 applicator into the vagina at bedtime for 7 days 45 g 1 05/03/2025 05/10/2025 ActivetraZODone hydrochloride 300 mg oral tablet (20 sources)Serotonin Reuptake InhibitorStart: 36-97-2621ayxo 1 tablet by mouth once dailytraZODone HCl 300 mg tablet Take 300 mg by mouth once daily. 10/16/2021 Active End: 64-62-1400zdgt 1 tablet by mouth once daily at [...] mg oral tablet (20 sources)Start: 07-28-2025 End: 76-45-9390jzwt 650 mg by mouth once as needed for igdy046 mg, oral, Once, On Sat07/28/25 at 1545, For 1 dose, If ordered PRN for pain, nurse is permitted t o administer this medication for higher pain scores based on patient preference? YesStart: 07-28-2025 End: 02-65-1894mjhd 2 tablets by mouth every six hours for painacetaminophen (Tylenol) 500 mg tablet Indications: Exacerbation of asthma, unspecified asthma severity, unspecified whether persistent ([facility]) Take 2 tablets (1,000 mg) by mouth every 6 hours if needed for mild pain (1 - 3) for up to 10 days. 30 tablet 07/28/2025 08/07/2025 ActiveStart: 02-10-2025 End: 20-49-6950strx 2 tablets by mouth three times dailyAcetaminophen 500 mg tablet Discontinued 1000 MG PO Three times daily February 10, 2025 12:00am June 12, 2025 5:26pmStart: 06-06-2023 End: 83-87-4692Agyhtjmevblve Extra Strength 500 MG tablet 06/06/2023 Active Start: 27-78-1610abhj 2 tablets by mouth every eight hoursacetaminophen [...] oral tablet (8 sources)Penicillin-class AntibacterialStart: 03-20-2025 End: 69-32-9184oyvl 1 tablet by mouth twice dailyAmoxicillin-Pot Clavulanate 875-125 mg tablet Discontinued 1 TAB PO Twice daily 14 7 March 20, 2025 12:00am June 12, 2025 5:26pmbiotin 10 mg oral capsule (6 sources)Start: 11-29-2020 End: 06-89-5230gsxp 1 capsule by mouth once dailyBiotin 10,000 mcg cap Take 1 capsule by mouth once daily. 0 11/29/2020 01/03/2024 Discontinued (Course of therapy completed)Comment on above:Take 1 capsule by mouth once daily. cholecalciferol 1.25 mg oral capsule (6 sources)Vitamin DStart: 03-06-2021 End: 64-92-1654cwvavmvifwktxzj, Vitamin D3, (VITAMIN D3) 1,250 mcg (50,000 unit) cap capsule One capsule weekly for 8 weeks then q.month 0 03/06/2021 01/03/2024 Discontinued (Course of therapy completed)Comment on above:One capsule weekly for 8 weeks then q.monthclindamycin 300 mg oral capsule (20 sources)Lincosamide AntibacterialStart: 04-15-2025 End: 48-79-7381dltf 1 capsule by mouth every eight hoursClindamycin Hcl 300 mg capsule Discontinued 300 MG PO Every 8 hours 14 06April 15, 2025 12:00am June 12, 2025 5:27pmStart: 04-05-2024 End: 83-77-7743eels 2 capsules by mouth every six hoursClindamycin Hcl 150 mg capsule Discontinued 300 MG PO Q6H 80 April 05, 2024 12:00am November 22, 2024 1:52pmStart: 24-82-5341bmdq 300 mg by mouth every six hoursClindamycin Hcl Active 300 MG PO Q6H 80 April 05, 2024 12:00amStart: 02-20-2022 End: 17-19-9980ikjr 2 capsules by mouth every six hoursClindamycin Hcl 150 mg capsule Discontinued 300 MG PO Q6H 80 February 20, 2022 12:00am March 08, 2022 10:50amStart: 02-20-2022 End: 61-12-0210kiem 300 mg by mouth every six hoursClindamycin Hcl Discontinued 300 MG PO Q6H 80 February 20, 2022 12:00am March 08, 2022 10:50amdoxycycline hyclate 100 mg oral tablet (20 sources)Tetracycline-class DrugStart: 03-20-2025 End: 96-09-1384uflg 1 capsule by mouth twice dailyDoxycycline Hyclate 100 mg capsule Discontinued 100 MG PO Twice daily 14 March 20, 2025 12:00amJuly 2024 5:27pmStart: 01-09-2022 End: 05-92-3421dsag 1 tablet by mouth twice dailydoxycycline (VIBRA-TABS) 100 mg tablet take 1 tablet by mouth twice a day for 10 days 01/09/2022 ActiveComment on above:take 1 tablet by mouth twice a day for 10 days0.5 ml dulaglutide 3 mg/ml auto-injector (20 sources)GLP-1 Receptor AgonistStart: 10-23-2023 End: 32-65-5433ygsuyveyhzc (TRULICITY) 1.5 mg/0.5 mL pen injector Inject [...] HOME TEST kit (16 sources)Start: 01-10-2022 End: 43-51-0214HRHCVQXC COVID-19 AG HOME TEST kitStart: 87-76-8480DCIGIRAK COVID-19 AG HOME TEST kitguaiFENesin 20 mg/ml oral solution (1 source)Start: 07-28-2025 End: 40-16-4185isgj 200 mg by mouth qjke560 mg, oral, Once, On Sat07/28/25 at 1545, For 1 doseibuprofen 800 mg oral tablet (20 sources)Nonsteroidal Anti-inflammatory DrugStart: 11-30-2022 End: 33-15-5395rkgc 1 tablet by mouth three times daily [...] tablet (20 sources)Nonsteroidal Anti-inflammatory DrugStart: 10-16-2021 End: 71-15-6803goeg 1 tablet by mouth once dailymeloxicam (MOBIC) 15 mg tablet Take 15 mg by mouth once daily. 0 10/16/2021 03/20/2024 Discontinued(Course of therapy completed) End: 29-86-8646ixbo 1 capsule by mouth once dailymeloxicam submicronized 5 mg capsule Take 5 mg by mouth once daily. 03/23/2024 Discontinued (Therapy completed)Comment on above:Take 15 mg by mouth once daily.methocarbamol 750 mg oral tablet (9 sources)Muscle RelaxantStart: 02-10-2025 End: 41-00-8653fddg 1 tablet by mouth three times dailyMethocarbamol 750 mg tablet Discontinued 750 MG PO Three times daily February 10, 2025 12:00am June 02, 2025 10:08pmnaproxen 500 mg oral tablet (20 sources)Nonsteroidal Anti-inflammatory DrugStart: 10-23-2023 End: 12-53-5032beak 1 tablet by mouth twice dailyNaproxen (Naprosyn) 500 mg tablet Discontinued 500 MG PO Twice daily November 22, 2024 1:00am February 10, 2025 2:58pmStart: 09-21-2022 End: 70-55-5229sekb 1 tablet by mouth twice daily as needed for painNaproxen (Naprosyn) 500 mg tablet Discontinued 500 MG PO Twice daily as needed for pain September 21, 2022 12:00am January 13, 2023 2:48amStart: 06-29-2022 End: 29-40-3131xehq 1 tablet by mouth twice daily as needed for painNaproxen (Naprosyn) 500 mg tablet Discontinued 500 MG PO Twice daily as needed for pain June 29, 2022 12:00am September 13, 2022 9:21amStart: 03-08-2022 End: 84-35-5369hyja 1 tablet by mouth twice daily as needed for painNaproxen 500 mg tablet Discontinued 500 MG PO Twice daily as needed for pain March 08, 2022 12:00am May 11, 2022 10:31am administer with food or milknorethindrone 0.35 mg oral tablet (20 sources)Start: 05-11-2022 End: 55-09-5117cixh 1 tablet by mouth once dailyNorethindrone (Contraceptive) 0.35 mg tablet Discontinued 0.35 MG PO Daily May 11, 2022 12:00am October 23, 2023 8:16pmpregabalin 75 mg oral capsule (16 sources)Start: 10-16-2021 End: 48-23-7576gshm 1 capsule by mouth twice dailypregabalin (LYRICA) 75 mg capsule Take 75 mg by mouth twice daily. 0 10/16/2021 03/20/2024 Discontinued (Course of therapy completed)Comment on above:Take 75 mg by mouth twice daily.24 hr propranolol hydrochloride 80 mg extended release oral capsule (16 sources)beta-Adrenergic BlockerStart: 02-27-2020 End: 62-47-6242strw 1 capsule by mouth every twenty-four hourspropranolol ER (INDERAL LA) 80 mg 24 hr capsule Take 80 mg by mouth. 0 02/27/2020 03/20/2024 Discontinued (Course of therapy completed)Comment on above:Take 80 mg by mouth. risperiDONE 1 mg oral tablet (16 sources)Atypical AntipsychoticStart: 10-16-2021 End: 31-33-0967uwvp 1 tablet by mouth twice dailyrisperiDONE (RISPERDAL) 1 mg tablet Take 1 mg by mouth twice daily. 0 10/16/2021 03/20/2024 Discontinued (Course of therapy completed)Comment on above:Take 1 mg by mouth twice daily. semaglutide, weight loss, (WEGOVY) 0.25 mg/0.5 mL pen injector (1 source)Start: 07-23-2024 End: 90-70-1937soorykzdqdo, weight loss, (WEGOVY) 0.25 mg/0.5 mL pen injector Indications: Diabetes mellitus type II, non insulin dependent (Multi) , BMI 38.0-38.9,adult Inject 0.25 mg under the skin every 7 days. 6 mL 1 07/23/2024 01/23/2025 Discontinued (Therapy completed)sulfamethoxazole 800 mg / trimethoprim 160 mg oral tablet (20 sources)Dihydrofolate Reductase Inhibitor Antibacterial, Sulfonamide AntimicrobialStart: 11-17-2024 End: 93-59-5833rdmf 1 tablet by mouth twice dailySulfamethoxazole-Trimethoprim (Bactrim Ds) 800-160 mg tablet Discontinued 1 TAB PO Twice daily November 17, 2024 1:00am February 10, 2025 2:59pmStart: 08-20-2023 End: 78-99-6657ngvm 1 tablet by mouth twice dailySulfamethoxazole-Trimethoprim (Bactrim Ds) 800-160 mg tablet Discontinued 1 TAB PO Twice daily 13 09August 20, 2023 12:00am October 23, 2023 8:17pmStart: 07-01-2023 End: 44-52-8507atlp 1 tablet by mouth every twelve hoursSulfamethoxazole- Trimethoprim (Bactrim Ds) 800-160 mg tablet Discontinued 1 TAB PO Q12H 13 09July 01, 2023 12:00am October 23, 2023 8:17pmStart: 08-03-2022 End: 39-74-1090rhnm 1 tablet by mouth every twelve hoursSulfamethoxazole- Trimethoprim (Bactrim Ds) 800-160 mg tablet Discontinued 1 TAB PO Q12H 13 09August 03, 2022 12:00am September 13, 2022 9:22amStart: 01-10-2022 End: 35-18-3621qlpe 1 tablet by mouth twice dailySulfamethoxazole-Trimethoprim (Bactrim Ds) 800-160 mg tablet Discontinued 1 TAB PO Twice daily January 10, 2022 1:00am March 08, 2022 10:50amSUMAtriptan 100 mg oral tablet (20 sources)Serotonin-1b and Serotonin-1d Receptor AgonistStart: 03-08-2022 End: 27-48-2617Uhhvwvtekfs Succinate Discontinued MG PO March 08, 2022 12:00am May 11, 2022 10:20amStart: 01-02-2022 End: 76-56-5776vetc 1 tablet by mouth once dailySUMAtriptan (IMITREX) 100 mg tablet take 1 tablet by mouth if needed to ABORT MIGRAINE once daily 30 DAY SUPPLY 01/02/2022 ActiveComment on above:take 1 tablet by mouth if needed to ABORT MIGRAINE once daily 30 DAY SUPPLYtiZANidine 4 mg oral tablet (16 sources)Central alpha-2 Adrenergic AgonistStart: 10-16-2021 End: 80-82-0639bbaj 1 tablet by mouth once dailytiZANidine (ZANAFLEX) 4 mg tablet take 1 tablet by mouth AT 8PM EVERY NIGHT 0 10/16/2021 03/20/2024 Discontinued (Course of therapy completed)Comment on above:take 1 tablet by mouth AT 8PM EVERY NIGHTtriamcinolone acetonide 1 mg/ml topical cream (20 sources)CorticosteroidStart: 11-30-2022 End: 75-62-0020Bvefmolvoofje Acetonide 0.1 % cream Discontinued 1 APPLIC TOPICAL Daily November 30, 2022 1:00amNove2022 8:17pmStart: 06-01-2020 triamcinolone acetonide (NASACORT AQ) 55 mcg nasal inhaler Use 2 Sprays in the nose. 06/01/2020 ActiveComment on above:Use 2 Sprays in the nose.verapamil hydrochloride 180 mg extended release oral tablet (16 sources)Calcium Channel BlockerStart: 10-21-2021 End: 13-27-2210iggi 1 tablet by mouth once dailyverapamil SR (CALAN SR, ISOPTIN SR) 180 mg CR tablet Take 180 mg by mouth once daily. 0 10/21/2021 03/20/2024 Discontinued (Course of therapy completed)Comment on above:Take 180 mg by mouth once daily. Problems Active Problems Problem ClassificationProblemDateDocumented DateEpisodic/ChronicAllergic reactions (20 sources)Eczema; Translations: [Dermatitis, unspecified]47-12-4985Jqrphwhi Asthma (20 sources)Mild intermittent asthma; Translations: [Mild intermittent asthma, uncomplicated]Onset: 069783-31-2330TttvtwqYxpjrjvijd and other anemia (1 source)Anemia, unspecified; Translations: [ANEMIA UNSPECIFIED]Onset: 11-83-0238ZneyusvpZxklyinc mellitus with complications (20 sources)Disorder of nervous system due to type 2 diabetes mellitus; Translations: [Type 2 diabetes mellituswith other diabetic neurological complication]Onset: 45-53-1209UezumnqIeeoygih mellitus without complication (20 sources)Type 2 diabetes mellitus; Translations: [Type 2 diabetes mellitus without complications]Onset: 003660-64-1910CeudzvcFlbbwpfyw of lipid metabolism (20 sources)Hyperlipidemia; Translations: [Hyperlipidemia, unspecified]Onset: 137828-91-6502LdvsqnzCvnuwawyxr disorders (20 sources)Gastroesophageal reflux disease without esophagitis; Translations: [Gastro-esophageal reflux disease without esophagitis]Onset: 11-01-2021 05-82-6535WkiflncAqjbvfsit hypertension (15 sources)Essential hypertension; Translations: [Unspecified essential hypertension]Onset: 854213-34-8158MgtixsqQeqvqrol; including migraine (20 sources)Migraine; Translations: [Migraine, unspecified, without mention of intractable migraine without mention of status migrainosus]Onset: 12-30-2023 21-25-6110MbmhvpbKijuwnsjdkqm diseases of female pelvic organs (1 source)Inflammatory disease of cervix uteri; Translations: [INFLAMMATORY DISEASE CERVIX UTERI]Onset: 41-28-9226LxcaljlgYxxzxtryk disorders (20 sources)Menorrhagia; Translations: [Excessive and frequent menstruation with regular cycle]Onset: 083837-38-4026JtncgiiMpva disorders (5 sources)Bipolar disorder, most recent episode depression; Translations: [Bipolar I disorder, most recent episode (or current) depressed, unspecified] ChronicMycoses (2 sources)Mycosis; Translations: [Candidiasis, unspecified]82-22-3995Cligqoyn Nonspecific chest pain (20 sources)Chest wall pain; Translations: [Other chest pain]Onset: 03-01-2023 43-11-0469OszppivvAttiwhcqhgnsyo (9 sources)Disorder of joint of foot; Translations: [Primary osteoarthritis, unspecified ankle and foot]34-03-7308XjavaxpOkpxm aftercare (7 sources)Abscess; Translations: [Encounter for follow-up examination after completed treatment for conditions other than malignant neoplasm]03-23-2025 EpisodicOther connective tissue disease (20 sources)Flexor tenosynovitis of finger; Translations: [Synovitis and tenosynovitis, unspecified]13-54-7361BcqxlgpdYmabs connective tissue disease (6 sources)Pain of toes of bilateral feet; Translations: [Pain in right toe(s)] Onset: 498629-17-8310PlwpptexStbgg connective tissue disease (2 sources)Pain in right toe(s); Translations: [Pain of toes of both feet]Onset: 32-29-3315QrobrhmgNakxp connective tissue disease (2 sources)Pain in left toe(s); Translations: [Pain of toes of both feet]Onset: 71-72-2462FpcuitktNfzae female genital disorders (1 source)Abnormal uterine and vaginal bleeding, unspecified; Translations: [ABNORMAL UTERINE VAGINAL BLEED UNS]Onset: 03-22-3769TuazdniNhvov gastrointestinal disorders (20 sources)Irritable bowel syndrome; Translations: [Irritable bowel syndrome without diarrhea]Onset: 419697-96-8990SuilsgoTdtxm lower respiratory disease (5 sources)Dyspnea on exertion; Translations: [Shortness of breath]EpisodicOther lower respiratory disease (6 sources)Shortness of breath; Translations: [Shortness of breath]Onset: 55-09-2240QxdltmpxYurid lower respiratory disease (5 sources)Dyspnea; Translations: [Shortness of breath]Onset: 12-30-2023 23-31-1405KrocegzzMloeo nervous system disorders (20 sources)Left tarsal tunnel syndrome; Translations: [Tarsal tunnel syndrome, left lower limb]Onset: 664410-46-3165LlibpecPlceq nervous system disorders (20 sources)Neuropathy of lower limb; Translations: [Unspecified mononeuropathy of left lower limb]Onset: 34-99-0315OyfbwzlQxnxz nervous system disorders (20 sources)Difficulty walking; Translations: [Difficulty in walking, not elsewhere classified]Onset: 05-17-5545XlboglrIzljg nervous system disorders (1 source)Difficulty in walking, not elsewhere classified; Translations: [Difficulty walking]Onset: 06-06-5629YcpinvnYayuo nervous system disorders (20 sources)Postoperative pain ; Translations: [Other acute postprocedural pain] 27-64-1524BvxnfuaiNneck nervous system disorders (20 sources)H/O: Disorder; Translations: [Personal history of other diseases of the nervous system and sense organs]57-78-8272AibcstxtOabes nervous system disorders (2 sources)Other acute postprocedural pain; Translations: [Other acute postprocedural pain]Onset: 63-91-8982PqjzxhimQlejf non-traumatic joint disorders (20 sources)Pain in wrist; Translations: [Pain in left wrist]23-52-1298Kvtvbfef Other non-traumatic joint disorders (5 sources)Pain of left wrist; Translations: [Pain in left wrist]06-29-2022 EpisodicOther nutritional; endocrine; and metabolic disorders (20 sources)Body mass index 30+ - obesity; Translations: [Body mass index (BMI) 39.0-39.9, adult]Onset: 628450-12-0464DzzysyhEispe nutritional; endocrine; and metabolic disorders (5 sources)Obesity; Translations: [Obesity, unspecified]ChronicOther nutritional; endocrine; and metabolic disorders (20 sources)Severe obesity; Translations: [Morbid (severe) obesity due to excess calories]Onset: 104044-31-6907KshchqnDoczu nutritional; endocrine; and metabolic disorders (2 sources)Body mass index (BMI) 33.0-33.9, adult; Translations: [Body mass index (BMI) 33.0-33.9, adult]Onset: 12-81-3384ThdjddrHprgw nutritional; endocrine; and metabolic disorders (1 source)Body mass index (BMI) 36.0-36.9, adult; Translations: [Class 2 severe obesity due to excess calories with serious comorbidity and body mass index (BMI) of 36.0 to 36.9 in adult]Onset: 52-79-9878MypleytXznpb nutritional; endocrine; and metabolic disorders (1 source)Body mass index (BMI) 39.0-39.9, adult; Translations: [BMI 39.0-39.9,adult]Onset: 05-27-5064XiabeitRsofi skin disorders (20 sources)Abnormality of nail of toe; Translations: [Other nail disorders] Onset: 95-76-4718IfpixqezPlqmw skin disorders (20 sources)Sebaceous cyst of skin; Translations: [Sebaceous cyst]01-04-2023 EpisodicOther skin disorders (2 sources)Ingrowing toenail; Translations: [Ingrowing nail]42-17-1222Nqtmgwqg Other skin disorders (8 sources)Hidradenitis suppurativa; Translations: [Hidradenitis suppurativa] 82-76-4992TvmdwlcpOxoop skin disorders (8 sources)Epidermoid cyst; Translations: [Epidermal cyst]Onset: 07-12-2025 42-26-6210JdivdmweJmkxw upper respiratory infections (3 sources)Upper respiratory infection; Translations: [Acute upper respiratory infection, unspecified]Onset: 504793-17-9177FwhdprluIeamyy media and related conditions (20 sources)Acute right otitis media; Translations: [Otitis media, unspecified, right ear]42-56-5026NcgshgfyDdmdado cyst (15 sources)Cyst of ovary; Translations: [Unspecified ovarian cyst, unspecified side]70-81-2607EjvyheywGupyrubqqoa and intestinal abscess (9 sources)Abdominal gwibbzg60-67-5028HahyexanQntvhazp codes; unclassified (20 sources)Obstructive sleep apnea of adult; Translations: [Obstructive sleep apnea (adult) (pediatric)]Onset: 753549-93-5439FdkapeoVegjmlfq codes; unclassified (20 sources)Hypersomnia; Translations: [Other hypersomnia]Onset: 11-15-2020 24-67-9619AjinufoXpulmbmi codes; unclassified (1 source)Obstructive sleep apnea (adult) (pediatric); Translations: [Obstructive sleep apnea of adult]Onset: 80-61-1733ZefozynFpuaicxm codes; unclassified (5 sources)Edema of lower extremity; Translations: [Edema]EpisodicResidual codes; unclassified (2 sources)Other specified postprocedural states; Translations: [OTH SPECIFIED POSTPROCEDURAL STATES]Onset: 66-87-3433GzxgrmiaVqtgsdmk codes; unclassified (6 sources)Postoperative state; Translations: [Other specified postprocedural states]01-93-6223MfaanwlfKfszaeqv codes; unclassified (10 sources)Dependent edema; Translations: [Edema, unspecified]10-03-2024 EpisodicSkin and subcutaneous tissue infections (20 sources)Infected face; Translations: [Local infection of the skin and subcutaneous tissue, unspecified]Onset: 958104-06-6863YfbpwmeaJabombwjehm; intervertebral disc disorders; other back problems (11 sources)Torticollis; Translations: [Torticollis]Onset: EpisodicSprains and strains (20 sources)Low back strain; Translations: [Strain of muscle, fascia and tendon of lower back, initial encounter]63-42-0542PuambcxfJqnvnfkcy-related disorders (20 sources)Nicotine dependence; Translations: [Nicotine dependence, cigarettes, uncomplicated]Onset: 763294-42-1245AkqiszsDkiczke on above:11-25; Superficial injury; contusion (20 sources)Contusion of thigh; Translations: [Contusion of unspecified thigh, initial encounter]79-23-1719MhlyqozbGbsnhawajbpw (6 sources)drain removalUnclassified (1 source)Autogenerated ProblemOnset: 132766-94-9529Etfskvssmeze (1 source)Class 2 severe obesity due to excess calories with serious comorbidity and body mass index (BMI) of36.0 to 36.9 in adult; Translations: [Class 2 severe obesity due to excess calories with serious comorbidity and body mass index (BMI) of 36.0 to 36.9 in adult]Onset: 31-78-8596Pjikittrjhfo (1 source)Established PatientOnset: 07-45-6168Ttuajgb tract infections (15 sources)Urinary tract infectious disease; Translations: [Urinary tract infection, site not specified]40-24-4414Rwvcmoht Past or Other Problems Problem ClassificationProblemDateDocumented DateEpisodic/ChronicAbdominal pain (20 sources)Pain in female pelvis; Translations: [Pelvic and perineal pain] Onset: 982064-90-0305FenpddstHlwuuehq foot deformities (20 sources)Abduction deformity of foot; Translations: [Valgus deformity, not elsewhere classified, left ankle]Onset: 952493-12-9374XllnmsyeKliyge of cervix (1 source)Low grade squamous intraepithelial lesion on cytologic smear of cervix (LGSIL); Translations: [LGSIL ON CYTOLOGIC SMEAR OF CERVIX]Onset: 12-06-2022 EpisodicComplication of device; implant or graft (20 sources)Pain due to internal prosthetic device; Translations: [Pain due to internal orthopedic prosthetic devices, implants and grafts, initial encounter] Onset: 114614-26-1897KcnazqjtTohtvzccfv and other anemia (10 sources)Anemia; Translations: [Anemia, unspecified]Onset: 12-30-2023 51-35-6158TkhutadzBfvehrkj mellitus without complication (20 sources)Impaired fasting glycemia; Translations: [Impaired fasting glucose] Onset: 689856-96-7747TvqqbidpCrtbj and electrolyte disorders (20 sources)Acute hypokalemia; Translations: [Hypokalemia]Onset: 01-11-2025 86-05-0249IfqarkazBlgnibwsevsiq and screening for infectious disease (20 sources)Patient encounter status; Translations: [Encounter for screening for human papillomavirus (HPV)]Onset: 10-28-2021 Resolved: 312083-04-8584ThmgacntEpmqkuzln of unspecified nature or uncertain behavior (11 sources)Neoplasm of uncertain behavior of skin of back; Translations: [Neoplasm of uncertain behavior of skin]Onset: 784192-22-6782Jgkyrhug Nonmalignant breast conditions (20 sources)Breast tenderness; Translations: [Mastodynia]Onset: 06-12-2025 29-37-8511DldiijzzNswoh aftercare (20 sources)Long-term current use of oral hypoglycemic medication; Translations: [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]Onset: 581517-01-9058 EpisodicOther aftercare (6 sources)Treatment changed; Translations: [Other prison (current) drug therapy]Onset: 503709-07-9803EzzsgzvbNfshe aftercare (2 sources)Surgical follow-up; Translations: [Encounter for follow-up examination after completed treatment for conditions other than malignant neoplasm]80-56-0896XlbepfynSykrg aftercare (2 sources)Other prison (current) drug therapy; Translations: [Other prison (current) drug therapy]Onset: 48-73-5434LpaoghmqPdytw aftercare (1 source)Encounter for change or removal of surgical wound dressing; Translations: [Encounter for change or removal of surgical wound dressing]Onset: 74-64-2210IfduexilFfiny circulatory disease (20 sources)Other specified symptoms and signs involving the circulatory and respiratory systems; Translations:[Other symptoms involving cardiovascular system]Onset: 588345-09-4947HhsxmqqhSzkqf connective tissue disease (20 sources)Fibromyalgia; Translations: [Fibromyalgia]Onset: 02-10-2021 23-88-4627NsawjddoGsowr connective tissue disease (20 sources)Pain in left foot; Translations: [Pain in left foot]Onset: 911705-49-7259VqtkpjpyHhojo connective tissue disease (20 sources)Pain in right foot; Translations: [Pain in right foot]Onset: 262594-27-3354WnvlavlyCslin connective tissue disease (20 sources)Neuralgia of nerve of left lower limb; Translations: [Neuralgia and neuritis, unspecified]Onset: 60-73-0516GqhdaawlJeoii connective tissue disease (20 sources)Pain in both feet; Translations: [Pain in right foot]Onset: 38-11-3024UnrfaermMzrpd connective tissue disease (1 source)Pain in right foot; Translations: [Pain in right foot]Onset: 00-82-3611UhohjmfnEyzfh hematologic conditions (20 sources)ESR raised; Translations: [Elevated erythrocyte sedimentation rate] Onset: 771199-92-9101MvzeqpvbMyvof nervous system disorders (20 sources)Acute postoperative pain; Translations: [Other acute postprocedural pain]Onset: 242700-71-3361CjhqdxuoDgcqc non-traumatic joint disorders (20 sources)Chronic ankle pain; Translations: [Pain in left ankle and joints of left foot]Onset: 16-11-2954YwmfpfipOzgdt screening for suspected conditions (not mental disorders or infectious disease) (17 sources)Electrocardiogram abnormal; Translations: [Nonspecific abnormal electrocardiogram [ECG] [EKG]]Onset: 71-52-7205AvjtvmeqRwcvz skin disorders (20 sources)Keratosis; Translations: [Epidermal thickening, unspecified]Onset: 46-35-9178AvehzsdiCohkb skin disorders (12 sources)Localized swelling, mass and lump, trunk; Translations: [Localized superficial swelling, mass, or lump]Onset: 031029-14-2483IiwohkqzCkbvk skin disorders (1 source)Scar conditions and fibrosis of skin; Translations: [Painful scar] Onset: 76-12-7427PwbdkbhwVxzkq skin disorders (1 source)Other nail disorders; Translations: [Acquired dysmorphic toenail] Onset: 33-66-0288WfidimeyKrsyolbx codes; unclassified (20 sources)Disorder of digestive tract; Translations: [Acquired absence of other specified parts of digestive tract]Onset: 249823-48-0649Cplcmbxi Residual codes; unclassified (20 sources)Postprocedural state finding; Translations: [Other specified postprocedural states]Onset: 139509-78-8879QusjjzpbBdglpajy codes; unclassified (20 sources)History of operative procedure on foot; Translations: [Other specified postprocedural states]Onset: 93-25-3316ZfixzrngLeqhhfde codes; unclassified (20 sources)Painful scar; Translations: [Pain, unspecified]Onset: 11-01-2023 87-84-4293FscrzjieKeqeefeo codes; unclassified (1 source)Localized edema; Translations: [Localized edema]Onset: 10-03-2024 EpisodicResidual codes; unclassified (1 source)Pain, unspecified; Translations: [Painful scar]Onset: 11-01-2023 EpisodicThyroid disorders (20 sources)Disorder of thyroid gland; Translations: [Disorder of thyroid, unspecified]Onset: 582209-45-4524OtmdwbtsDorhvyfpdzwe (9 sources)Abdominal abscess; Translations: [Abdominal abscess]07-01-2023 Unclassified (3 sources)Onset: 645525-61-0169 Results Test NameValueInterpretationReference RangeFacilityCNOVon 34-07-7788GZNIOgknwj Visit (LOORRM) GARY VIGIL ([id number]) 1985 F Date Time Provider Department 09/27/25 [...] gave out my personal mobile telephone number [phone] to call at anytime if needed. Eulalia [...] unspecified [E07.9] 11/01/2021 ESR (more content not included)...[facility] 12-17-3598XWNDGzmcml Visit (PDAVON) GARY VIGIL ([id number]) 1985 F Date Time Provider Department 09/14/25 [...] Level: 10 Pain Location: (leeroy foot) Description: /Infant, Aching, Contraction, Cramping, Cutting, Dressing Change, Incision, [...] gave out my personal mobile telephone number [phone] to call at anytime if needed. Instructed that if I am not available should contact the motion picture narrator sample hand or go to the emergency room. Taras [...] (REFER TO PRESCRIPTION NOTES) (more content not included)...[facility] POSTPROC EVALon 18-16-9326KNTA POSTPROC EVALHNO ID: [id number] Author: PASCUAL MAIN II, DO Service: Anesthesiology Author Type: Anesthesiologist Type: Anesthesia Postprocedure Evaluation Filed: 09/09/2025 11:58 Note Text: POST ANESTHESIA EVALUATION NOTE : 1985 Procedure Summary Date: 09/09/25 Room / Location: [address] Anesthesia Start: 948 Anesthesia Stop: 1050 [...] Surgeons: Eulalia Fuentes DPM Responsible Provider: Pascual Main II, DO Anesthesia Type: MAC ASA Status: [...] September 09, 2025 TIME: 11:58 AM CSN: [id number] [facility] PRE-OPon 60-32-7612NFLZ PRE-OPHNO ID: [id number] Author: PASCUAL MAIN II, DO Service: Anesthesiology Author Type: Anesthesiologist Type: Anesthesia Preprocedure Evaluation Filed: 09/09/2025 09:18 Note Text: ANESTHESIOLOGY DAY OF SURGERY NOTE : 1985 Procedure Information Date/Time: 09/09/25929 Procedure: EXCISION OF NAIL AND MATRIX FOR PERMANENT REMOVAL (Bilateral: Toe second ) Location: [place] [address] / [facility] Surgeons: Eulalia Fuentes DPM Estimated body mass [...] and consent discussed: yes. Patient / Responsible Alliance Party agrees to proceed: yes Patient / [...] 50 mg by mouth daily at bedtime. [place] Self Representation Document PreparationTOUCH ULTRA TEST test strip twice daily. TEST [...] 5 mg by (more content not included)...Normal [facility] Winifred Snowden [id number] OP RAMOS ID: [id number] Author: EULALIA FUENTES DPM Service: Podiatry Author Type: Physician Type: Brief Op Note Filed: 09/10/2025 14:51 Note Text: OPERATIVE/PROCEDURE REPORT LOG ID: [id number] SURGERY/PROCEDURE DATE: 09/09/2025 INCISION/PROCEDURE START TIME: 10:13 AM INCISION CLOSE/PROCEDURE END TIME: 10:41 AM SURGEON(S)/PROCEDURALIST(S) AND CLOTH SPONGER(S): Surgeons and Role: * Eulalia Fuentes DPM [...] and postoperative disposition w (more content not included)...Normal[facility] NOTHNO ID: [id number] Author: EULALIA FUENTES DPM Service: Podiatry Author Type: Physician Type: Brief Op Note Filed: 09/09/2025 10:43 Note Text: BRIEF OPERATIVE / PROCEDURE NOTE LOG ID: [id number] SURGERY/PROCEDURE DATE: 09/09/2025 INCISION/PROCEDURE START TIME: 10:13 AM INCISION CLOSE/PROCEDURE END TIME: 10:41 AM SURGEON(S)/PROCEDURALIST(S) AND CLOTH SPONGER(S): Surgeons and Role: * Eulalia Fuentes DPM [...] Vigil DATE: September 09, 2025 TIME: 10:[address] [facility] NOon [id number] NOHNO ID: [id number] Author: EULALIA FUENTES DPM Service: Podiatry Author Type: Physician Type: Operative Report Filed: 09/17/2025 18:20 Note Text: OPERATIVE/PROCEDURE REPORT LOG ID: [id number] SURGERY/PROCEDURE DATE: 09/09/2025 INCISION/PROCEDURE START TIME: 10:13 AM INCISION CLOSE/PROCEDURE END TIME: 10:41 AM SURGEON(S)/PROCEDURALIST(S) AND CLOTH SPONGER(S): Surgeons and Role: * Eulalia Fuentes DPM [...] intraoperative and postoperative dispositio (more content not included)...NormalAdena Pike Medical CenterPathology biopsy report Paul (Tiss)on [id number] DISCLAIMERNormalCFulton County Health CenterComment on above:Order Comment: Specimen Type: TISSUE SPECIMENOrdering Facility: [facility] Address: [address] [place], [place] [address]Result Comment: Laboratory Developed Test (LDT) Disclaimer: Performance characteristics of immunohistochemical, immunofluorescent, and chromogenic in-situ hybridization tests have been determined by the performing laboratory within the [facility] Department of Pathology and Laboratory Medicine ([facility], [facility], [facility], [facility], [facility], [facility], or [facility]) in a manner consistent with CLIA requirements. One or more of these tests may not have been cleared or approved by the FDA. The [facility] Department of Pathology and Laboratory Medicineis regulated under CLIA as qualified to perform high-complexity testing. These tests are used for clinical purposes. These should not be regarded as investigational or for research. Positive and negative controls stain appropriately.Performed By: #### 01080-6 ####[facility] LABIA [id number] [place] [id number] [facility] HOSPITALCASE REPORTNormMercy Health Fairfield HospitalComment on above:Order Comment: Specimen Type: TISSUE SPECIMENOrdering Facility: [facility] Address: [address] [place], [place] [address]Result Comment: Surgical Pathology Report Case: [id number] Authorizing Provider: Eulalia Fuentes DPM Collected: 09/09/2025 10:25 AM Ordering Location: Ambulatory Surgery Received: 09/09/2025 01:52 PM Pathologist: Martina Handy MD Specimens: A) - Digit, Left Foot, Second, partial B) - Digit, Right Foot, Second, partialPerformed By: #### 99332-4 ####[facility] LABIA [id number] [address] OF HOLZER HOSPITALCLINICAL HISTORYNoRegency Hospital Cleveland East on above:Order Comment: Specimen Type: TISSUE SPECIMENOrdering Facility: [facility] Address: [address] [place], [place] [address]Htgmfu Comment: Pre-op diagnosis: 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] Pain in toes of both feet [M79.674, M79.675] Difficulty walking [R26.2] Pain of toes of both feet [M79.674, M79.675] Associated Diagnoses: L60.8 - Acquired dysmorphic toenail M79.674, M79.675 - Pain in toes of both feet R26.2 - Difficulty walking M79.674, M79.675 - Pain of toes of both feetPerformed By: #### 19431-8 ####[facility] LABCLIA [id number] [place] [id number] [facility] on above:Order Comment: Specimen Type: TISSUE SPECIMENOrdering Facility: [facility] Address: [address] [place], [place] [address]Result Comment: A. Digit, second, left foot, partial excision: - Bone and soft tissue with degenerative and reactive changes. B. Digit, second, right foot, partial excision: - Bone and soft tissue with degenerative and reactive changes. at 1204 EDTPerformed By: #### 17292-6 ####[facility] LABCLIA [id number] [place] [id number] [facility] PERFORMING LABNormal [facility] on above:Order Comment: Specimen Type: TISSUE SPECIMENOrdering Facility: [facility] Address: [address] [place], [place] [address]Result Comment: Diagnostic interpretation performed at: [facility], [address] [place] [address] CLIA# [id number] Alteration Workroom Supervisor: ADINA Barneserformed By: #### 17689-5 ####[facility] LABIA [id number] [address] DESCRIPTIONAdams County Regional Medical Center on above: Order Comment: Specimen Type: TISSUE SPECIMENOrdering Facility: [facility] Address: [address] [place], [place] [address]Result Comment: A. Digit, Left Foot, Second Received in formalin labeled digit, left foot, second, partial consist of a portion of distal digit (2.0x 1.5 x 1.4 cm). The segment contains pink rubbery skin, and a thickened brown nail. Sectioning reveals firm yellow-mcmullen bone, and yellow-mcmullen soft tissue. Press Cleaner sections are submitted in cassette A1, following decalcification in formic acid. B. Digit, Right Foot, Second Received in formalin labeled Digit, right foot, second of a portion of distal digit (1.9 x 1.5 x 2 cm). The segment contains pink rubbery skin, and thickened brown nail. Sectioning reveals firm yellow bone and yellow-mcmullen soft tissue. Press Cleaner sections are submitted in cassette B1, followingdecalcification in formic acid MBB/MLG 09/10/25 11:24 AM Gross examination at [facility], [address] [place], [place], [address]Bkkaquvre By: #### 62129-9 ####[facility] LABCLIA [id number] [address]ETHISTORY PHYSICALon [id number] PHYSICALHNO ID: [id number] Author: SEFERINO GOLD PA-C Service: ? Author Type: Physician Hander In Type: H&P Filed: 08/27/2025 07:09 Note Text: [...] Hyperlipidemia, unspecified hyperlipidemia type Denies Hx of AR, chest pain, carotid disease, or peripheral vascular [...] this time. The Followi (more content not included)...NormalBlue Mountain HospitalHbA1c (Bld)on 93-04-5033Ganpjbz glucose Estimated from glycated hemoglobin (Bld) [Mass/Vol]186 mg/dLEast Orange General Hospital HospitalComment on above:Order Comment: Specimen Type: BLOOD SPECIMEN [facility]ing [facility] Address: [address] [place], [place] [address]Result Comment: eAG: (Estimated average glucose) is a calculated value from HgbA1c and is registration representative of the average blood glucose level in the last 2-3 month period.Performed By: #### 18710-5 #### [facility] CLIA [id number] [address] [place] [address] [place] UBXFAXDNlO9r (Bld) [Mass fraction] 8.1 %High4.3-5.6ACedar City HospitalComment on above:Order Comment: Specimen Type: BLOOD SPECIMEN [facility]ing Facility: [facility] Address: [address] [place], [place] [address]Result Comment: [place] Diabetes Association guidelines indicate that patients with HgbA1c in the range 5.7-6.4% are at increased risk for development of diabetes, and intervention by lifestyle modification may be beneficial. HgbA1c greater or equal to 6.5% is considered diagnostic of diabetes.Performed By: #### 35825-7 #### [facility] CLIA [id number] [address] [place] [address] OF HOLZER HOSPITALCNOVon [id number] Visit (PDAVON) GARY VIGIL ([id number]) 1985 F Date Time Provider Department 08/10/25 [...] 50 mg by mouth daily at bedtime. [place] Self Representation Document PreparationTOUCH ULTRA TEST test strip twice daily. TEST [...] Recent Labs 03/20/24 1053 (more content not included)...NormalAdena Pike Medical CenterCNPNon [id number] (FLAVIO) GARY VIGIL ([id number]) 1985 F Date Time Provider Department 08/10/25 EULALIA FUENTES During your visit today, we recorded the following information about you: Sugar Gibbs 08/10/2025 11:13 AM Signed ----- Message from Eulalia Fuentes DPM sent at 08/10/2025 10:44 AM EDT ----- Surgical Plan: RIGHT and LEFT FOOT Phenol partial matrixectomy of toenail second toe 15149 MAC (Monitored Anesthesia Care - IV sedation) 1 hour Special equipment needed Phenol E11.42 Type 2 diabetes mellitus with diabetic polyneuropathy, unspecified whether continuous 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 insulin use (HCC) (primary encounter diagnosis) R26.2 [...] [R73.01] 11/23/2020 Cigarette nicotine dependence without complicat*11/01/2021 custodial (current) use of oral hypoglycemic dr*11/01/2021 Other specified postprocedural states [Z98.890] 04/03/2021 Other specified symptoms and signs involving th*01/06/2021 BMI 39.0-39.9,adult [Z68.39] 02/10/2021 Contact with and (suspected) exposure to covid-*10/28/2021 Fibromyalgia [M79.7] 02/10/2021 Type 2 diabetes karol (more content not included)...NormalHenry [facility] W Auto Differential panel (Bld)on 74-44-8494Kyhafjckgcz distribution width (RBC) [Ratio]13.2 %11.5 - 14.5 %[facility]view Medical CenterHematocrit (Bld) [Volume fraction]39.3 %36.0 - 46.0 %[facility] Medical CenterHemoglobin (Bld) [Mass/Vol]13.9 g/dL12.0 - 16.0 g/dL [facility] CenterImfreeman health system granulocytes (Bld) [#/Vol]0.04 10*3/uL [facility] granulocytes/100 WBC (Bld)0.3 %0.0 - 0.9 %[facility] Medical CenterComment on above:Immature Granulocyte Count (IG) includes promyelocytes, myelocytes and metamyelocytes but does not i nclude bands. Percent differential counts (%) should be interpreted in the context of the absolute cell counts (cells/UL).MCH (RBC) [Entitic mass]31.2 pg 26.0 - 34.0 pgUnCincinnati Shriners HospitalMCHC (RBC) [Mass/Vol]35.4 g/dL 32.0 - 36.0 g/dLUnCincinnati Shriners HospitalMCV (RBC) [Entitic vol]88 fL80 - 100 fLUniCleveland Clinic Avon HospitalPlatelets (d) [#/Vol]343 10*3/uL [facility] Medical CenterRB (d) [#/Vol]4.45 10*6/uLSouthview Medical CenterWBC (Bld) [#/Vol]13.6 10*3/uLHenry County HospitalThe previously reported component Neutrophils % is [...] component Absolute Basophils is no longer being reported.[facility]view Medical CenterErythrocyte distribution width (RBC) [Ratio]13.2 %Vutkhv22.5-14.5 [facility] HospitalComment on above:Order Comment: The previously reported component [...] is no longer being reported.Performed By: #### 85155-4 #### LIAT Gregory ([id number]) [facility] ([facility]) [address] [place] [address]Kzdeukvuii (Bld) [Volume fraction]39.3 %Bievve93.0-46.0 [facility] Community HospitalComment on above:Order Comment: The previously reported component [...] is no longer being reported.Performed By: #### 43917-5 #### LIAT Gregory ([id number]) [facility] ([facility]) [address] [place] [address] 92487Ziojpyyxpx (Bld) [Mass/Vol]13.9 g/xMRweqtu37.0-16.0[facility] HospitalComment on above:Order Comment: The previously reported component [...] is no longer being reported.Performed By: #### 24307-2 #### LIAT Gregory ([id number]) [facility] ([facility]) [address] [place] [address]Kcxoiqor granulocytes (Bld) [#/Vol]0.04 x10*3/uLNormal 0.00-0.70[facility] HospitalComment on above:Order Comment: The previously reported component [...] is no longer being reported.Performed By: #### 24273-4 #### LIAT Gregory ([id number]) [facility] ([facility]) [address] [place] [address]Iptdkwng granulocytes/100 WBC (Bld)0.3 %Normal0.0-0.9 [facility] HospitalComment on above:Order Comment: The previously reported component [...] the absolute cell counts (cells/UL).Performed By: #### 03202-2 #### LIAT Gregory ([id number]) [facility] ([facility]) [address] [place] [address] 64[address]HKT (RBC) [Entitic mass]31.2 pkRmvetx93.0-34.0[facility] HospitalComment on above:Order Comment: The previously reported component [...] is no longer being reported.Performed By: #### 90205-6 #### LIAT Gregory ([id number]) [facility] ([facility]) [address] [place], [place] [address]MKAY (RBC) [Mass/Vol]35.4 g/yLBkoyyo06.0-36.0UnMagruder Memorial HospitalComment on above:Order Comment: The previously reported component [...] is no longer being reported.Performed By: #### 98843-8 #### LIAT Gregory ([id number]) [facility] ([facility]) [address] [place] [address] 608[address]DBZ (RBC) [Entitic vol]88 gLKudsvz37-099ObrjqtitspMagruder Memorial HospitalComment on above:Order Comment: The previously reported component [...] is no longer being reported.Performed By: #### 60703-1 #### LIAT Gregory ([id number]) [facility] ([facility]) [address] [place], [place] [address]Otxkqcsom RBC/100 WBC (Bld) [Ratio]0.0 /100 WBCsNormal0.0-0.0 [facility] Community HospitalComment on above:Order Comment: The previously reported component [...] is no longer being reported.Performed By: #### 49799-1 #### LIAT HARITHATZER L ([id number]) [facility] ([facility]) [address] [place] [address] 69[address]Jvbdswduv (Bld) [#/Vol]343 x10*3/rEAbvkqk298-301FrcicgzjkpMagruder Memorial HospitalComment on above:Order Comment: The previously reported component [...] is no longer being reported.Performed By: #### 62504-5 #### LIAT HARITHATZER L ([id number]) [facility] ([facility]) [address] [place] [address] 42868AZT (Bld) [#/Vol]4.45 x10*6/uLNormal4.00-5.20[facility] HospitalComment on above:Order Comment: The previously reported component [...] is no longer being reported.Performed By: #### 17829-7 #### LIAT Gregory ([id number]) [facility] ([facility]) [address] [place] [address] 29[address]KSA (Bld) [#/Vol]13.6 x10*3/uLHigh4.4-11.3UnMagruder Memorial HospitalComment on above:Order Comment: The previously reported component [...] is no longer being reported.Performed By: #### 14606-2 #### LIAT Gregory ([id number]) [facility] ([facility]) [address] [place], [place] [address]Cesaazaihqenp metabolic 2000 panelon 86-25-2220Ulzrmcp BCP dye [Mass/Vol]4.1 g/dL3.4 - 5.0 g/dLUnCincinnati Shriners HospitalALP [Catalytic activity/Vol]85 U/L33 - 110 U/[facility]ers HospitalALT With P-5'-P [Catalytic activity/Vol]13 U/L7 - 45 U/[facility] HospitalComment on above:Patients treated with Sulfasalazine may generate falsely decreased results for ALT.Anion gap [Moles/Vol]15 mmol/L10 - 20 mmol/L [facility] CenterAST With P-5'-P [Catalytic activity/Vol]11 U/L9 - 39 U/[facility] HospitalBilirubin [Mass/Vol]0.2 mg/dL0.0 - 1.2 mg/dLUnCincinnati Shriners HospitalCalcium [Mass/Vol]9.5 mg/dL8.6 - 10.6 mg/dLUniversity Hospitals of ClevelandChloride [Moles/Vol]101 mmol/L98 - 107 mmol/[facility] HospitalCO2 [Moles/Vol]23 mmol/L21 - 32 mmol/L [facility] CenterCreatinine [Mass/Vol]0.48 mg/dLLow0.50 - 1.05 mg/dLUnCincinnati Shriners HospitaleGFR- PINFUniCleveland Clinic Avon HospitalComment on above:Calculations of estimated GFR are performed using the 2020 CKD-EPI Study Refit equation without therace variable for the IDMS- Traceable creatinine methods. https://jasn.asnjournals.org/content/early/ASN.2145455584 Glucose [Mass/Vol]313 mg/uLMkwo11 - 99 mg/dLUnCincinnati Shriners Hospital Interpretation and review of laboratory resultsAbnoSamaritan North Health CenterPotassium [Moles/Vol]3.9 mmol/L3.5 - 5.3 mmol/[facility] HospitalProtein [Mass/Vol]7.5 g/dL6.4 - 8.2 g/dLUnCincinnati Shriners HospitalSodium [Moles/Vol]135 mmol/VTsu977 - 145 mmol/[facility]riners HospitalUrea nitrogen [Mass/Vol]8 mg/dL6 - 23 mg/dLUnCincinnati Shriners HospitalUnCincinnati Shriners HospitalAlbumin BCP dye [Mass/Vol]4.1 g/dL Normal3.4-5.0UnMagruder Memorial HospitalComment on above: Performed By: #### 80914-1 #### LIAT Gregory ([id number]) [facility] ([facility]) [address] [place] [address] 55150RNJ [Catalytic activity/Vol]85 U/GOshbxa58-370TsaisjvofdMagruder Memorial HospitalComment on above:Performed By: #### 22830-5 #### LIAT Gregory ([id number]) [facility] ([facility]) [address] [place] [address] 43497YJT With P-5'-P [Catalytic activity/Vol]13 U/LNormal7-45 [facility] HospitalComment on above:Result Comment: Patients treated with Sulfasalazine may generate falsely decreased results for ALT.Performed By: #### 12264-2 #### LIAT Gregory ([id number]) [facility] ([facility]) [address] [place] [address] 23730Bskao gap [Moles/Vol]15 mmol/KLvdtrr27-82YqwskdngdbMagruder Memorial HospitalComment on above:Performed By: #### 13961-9 #### LIAT Gregory ([id number]) [facility] ([facility]) [address] [place] [address] 27492TNH With P-5'-P [Catalytic activity/Vol]11 U/LNormal9-39 [facility] HospitalComment on above:Performed By: #### 17514-4 #### LIAT Gregory ([id number]) [facility] ([facility]) [address] [place] [address] 36121Vlzskojhz [Mass/Vol]0.2 mg/dLNormal0.0-1.2W[facility]umed[facility] Harrison Community HospitalComment on above:Performed By: #### 84608-1 #### LIAT Gregory ([id number]) [facility] ([facility]) [address] [place] [address] 42837Saknrew [Mass/Vol]9.5 mg/dLNormal8.6-10.6W[facility] Community HospitalComment on above:Performed By: #### 82996-7 #### LIAT Gregory ([id number]) [facility] ([facility]) [address] [place] [address] 03431Cowcdkmv [Moles/Vol]101 mmol/GVjbalv19-327NdrkobhzhbMagruder Memorial HospitalComment on above:Performed By: #### 43407-1 #### LIAT Gregory ([id number]) [facility] ([facility]) [address] [place] [address] 08846QH9 [Moles/Vol]23 mmol/WAkipqp81-76YzuetdodreMagruder Memorial HospitalComment on above:Performed By: #### 10558-0 #### LIAT Gregory ([id number]) [facility] ([facility]) [address] [place], [place] [address]Spkioyyyii [Mass/Vol]0.48 mg/dLLow0.50-1.05[facility] Community HospitalComment on above:Performed By: #### 88635-8 #### LIAT Gregory ([id number]) [facility] ([facility]) [address] [place] [address] 73852Yldmylxdhe filtration rate>90Normal>60UnMagruder Memorial HospitalComment on above:Result Comment: Calculations of estimated GFR are performed using the 2020 CKD-EPI Study Refit equation without the race variable for the IDMS-Traceable creatinine methods. https://jasn.asnjournals.org/content/early/ASN.3450400258Yjhtgwfpc By: #### 20510-8 #### LIAT Gregory ([id number]) [facility] ([facility]) [address] [place] [address] 29161Tohqmjm [Mass/Vol]313 mg/uNHlpx08-83ZocwnozfyqMagruder Memorial HospitalComment on above:Performed By: #### 74050-1 #### LIAT Gregory ([id number]) [facility] ([facility]) [address] [place] [address] 57445Hcvwpyecb [Moles/Vol]3.9 mmol/LNormal3.5-5.3W[facility]umed[facility] Harrison Community HospitalComment on above:Performed By: #### 16309-5 #### LIAT Gregory ([id number]) [facility] ([facility]) [address] [place] [address] 32975Rqosacl [Mass/Vol]7.5 g/dLNormal6.4-8.2UnMagruder Memorial HospitalComment on above:Performed By: #### 39142-1 #### LIAT Gregory ([id number]) [facility] ([facility]) [address] [place] [address] 68700Caneix [Moles/Vol]135 mmol/IRxs552-357PoojudxhybMagruder Memorial HospitalComment on above:Performed By: #### 83267-9 #### LIAT Gregory ([id number]) [facility] ([facility]) [address] [place], [place] [address]Kkhu nitrogen [Mass/Vol]8 mg/dLNormal6-23[facility]umed[facility] Community HospitalComment on above:Performed By: #### 22458-7 #### LIAT Gregory ([id number]) [facility] ([facility]) [address] [place], [place] [address]U-Nevqo, VTE Exclusionon 87-96-5429Uophqq D-dimer FEU (PPP) [Mass/Vol]272NINFSouthview Medical CenterECG 12-LEADon 66-04-2344VZH 12-LEADVentricular Rate 112 Atrial Rate 112 P-R Interval 148 QRS Duration 72 Q-T Interval 320 QTC Calculation(Bazett) 436 P Oliver 31 R Oliver 14 T Oliver -25 QRS Count 18 Q Onset 225 P Onset 151 P Offset 219 T Offset 385 QTC Fredericia 394 Diagnosis Sinus tachycardia Septal infarct , age undetermined T wave abnormality, consider inferior ischemia Abnormal ECG No previous ECGs available See ED provider note for full interpretation and clinical correlation Confirmed by Karli Chino ([id number]) on 07/29/2025 1:01:42 AMNormalRobert Wood Johnson University Hospital at HamiltonFibrin D-dimeron 69-78-6676Dqmukl D-dimer FEU (PPP) [Mass/Vol]272 ng/mL FEUNormal<=500Wvumed[facility] Harrison Community HospitalComment on above:Order Comment: The VTE Exclusion D-Dimer assay is reported in ng/mL Fibrinogen Equivalent Units (FEU). Per imaging technologist's instructions for use, a value of less [...] for DVT or PE exclusion.)Performed By: #### 98588-9 #### LIAT Gregory ([id number]) [facility] ([facility]) [address] [place], [place] [address]Dwtzmp D-dimer FEU (PPP) [Mass/Vol]on 07-28-2025 Interpretation and review of laboratory resultsNoSamaritan North Health CenterThe VTE Exclusion D-Dimer assay is reported in ng/mL Fibrinogen Equivalent Units (FEU). Per imaging technologist's instructions for use, a value of less [...] probability assessment model for DVT or PE exclusion.)Southview Medical CenterUnCincinnati Shriners Hospital Gas panel (BldV)Ordered By: Claudia Escobedo on 68-38-0484Cuiz excess Calc (BldV) [Moles/Vol]-1.2000 mmol/L-2.0 - 3.0 mmol/[facility] HospitalCO2 (BldV) [Partial pressure]35 mm[Hg]Kindred HealthcareHCO3 (Bld) [Moles/Vol]22.7 mmol/L22.0 - 26.0 mmol/[place] HospitalInhaled oxygen jrwihmffljyxy01 %[facility] Interpretation and review of laboratory resultsAbnoSamaritan North Health CenterOxygen (BldV) [Partial pressure]50 mm[Hg][facility] HospitalOxygen saturation in Venous blood80 %High45 - 75 %[facility] CenterOxyhemoglobin (BldV) [Mass fraction]74.7 %45.0 - 75.0 %[facility] Medical CenterpH (BldV)7.42 [pH]7.33 - 7.43 [facility] HospitalGas panel (BldV)on 48-03-4755Obpw excess Calc (BldV) [Moles/Vol]-1.2000 mmol/LNormal-2.0-3.0[facility] Community HospitalComment on above:Performed By: #### 64136-6 #### LIAT Gregory ([id number]) [facility] ([facility]) [address] [place], [place] [address]CC3 (BldV) [Partial pressure]35 mm KsPnq76-90PyagbvkzhwMagruder Memorial HospitalComment on above:Performed By: #### 18178-4 #### LIAT Gregory ([id number]) [facility] ([facility]) [address] [place] [address] 47511RIO2 (Bld) [Moles/Vol]22.7 mmol/XXkuiwo46.0-26.0[facility] Community HospitalComment on above:Performed By: #### 93571-9 #### LIAT Gregory ([id number]) [facility] ([facility]) [address] [place] [address] 75148Offxynn oxygen petyvvtqugtix17 %NormalUnMagruder Memorial HospitalComment on above:Performed By: #### 28061-0 #### LIAT Gregory ([id number]) [facility] ([facility]) [address] [place] [address] 92823Vittjr (BldV) [Partial pressure]50 mm QeNkei31-04PanspwzsbbMagruder Memorial HospitalComment on above:Performed By: #### 15669-3 #### LIAT Gregory ([id number]) [facility] ([facility]) [address] [place] [address] 30680Ufozxo saturation in Venous blood80 %Hbhv15-53KjmwgvcnqcMagruder Memorial HospitalComment on above:Performed By: #### 52721-5 #### LIAT Gregory ([id number]) [facility] ([facility]) [address] [place] [address] 40792Sokybvkmllxtk (BldV) [Mass fraction]74.7 %Vngtys22.0-75.0 [facility] HospitalComment on above:Performed By: #### 14568-7 #### LIAT Gregory ([id number]) [facility] ([facility]) [address] [place] [address] 54070kP (BldV)7.42 [pH]Normal7.33-7.43W[facility]umed[facility] Harrison Community HospitalComment on above:Performed By: #### 44217-3 #### LIAT Gregory ([id number]) [facility] ([facility]) [address] [place], [place] [address]Zpvqqwg Test strip manual (Bld) [Mass/Vol]on 07-28-2025 Glucose [Mass/Vol]348 mg/vNDlzc63 - 99 mg/dLSouthview Medical Center Interpretation and review of laboratory resultsAbnoSamaritan North Health CenterUnCincinnati Shriners HospitalGlucose [Mass/Vol]348 mg/fSCktc16-95 [facility] HospitalComment on above:Performed By: #### 2341-6 #### LIAT Gregory ([id number]) [facility] ([facility]) [address] [place], [place] [address]Ffdfnhgfz virus A and B and SARS-CoV-2 (COVID-19) identified CODY+probe Nom (Resp)on 40-53-2263KXZNV RNA CODY+probe Ql (Resp)Not detectedNot DetectedUnCincinnati Shriners HospitalFLUBV RNA CODY+probe Ql (Resp)Not detectedNot [facility] HospitalUnC[facility] Shriners HospitalInterpretation and review of laboratory resultsNormSelect Medical Specialty Hospital - Southeast OhioSARS-CoV-2 (COVID- 19) RNA CODY+probe Ql (Resp)Not detectedNot DetectedSouthview Medical CenterThis assay is an FDA-cleared, in vitro diagnostic nucleic acid amplification test for the qualitative detection and differentiation of SARS CoV-2/ Influenza A/B from nasopharyngeal specimens collected from individuals with signs and symptoms of respiratory tract infections, and has been validated for use at [facility]. Negative results do not preclude COVID-19/ Influenza A/B infections and should not be used as the sole basis for diagnosis, treatment, or other managementdecisions. Testing for SARS CoV-2 is recommended only for patients who meet current clinical and/orepidemiological criteria defined by federal, state, or local public health directives.[facility] Fairfield HospitalFLUAV RNA CODY+probe Ql (Resp)Not detectedNormalNot [facility] Galion HospitalComment on above:Order Comment: This assay is an FDA-cleared, in vitro diagnostic nucleic acid amplification test for the qualitative detection and differentiation of SARS CoV-2/ Influenza A/B from nasopharyngeal specimens collected from individuals with signs and symptoms of respiratory tract infections, and has been validated for use at [facility]. Negative results do not preclude COVID-19/ Influenza A/B infections and should not be used as the sole basis for diagnosis, treatment, or other management decisions. Testing for SARS CoV-2 is recommended only for patients who meet current clinical and/or epidemiological criteria defined by federal, state, or [facility] public health directives.Performed By: #### 75379-0 #### LIAT Gregory ([id number]) [facility] ([facility]) [address] [place] [address] 29698UNJAE RNA CODY+probe Ql (Resp)Not detectedNormalNot Detected [facility] HospitalComment on above:Order Comment: This assay is an FDA-cleared, in vitro diagnostic nucleic acid amplification test for the qualitative detection and differentiation of SARS CoV-2/ Influenza A/B from nasopharyngeal specimens collected from individuals with signs and symptoms of respiratory tract infections, and has been validated for use at [facility]. Negative results do not preclude COVID-19/ Influenza A/B infections and should not be used as the sole basis for diagnosis, treatment, or other management decisions. Testing for SARS CoV-2 is recommended only for patients who meet current clinical and/or epidemiological criteria defined by [facility], [facility], or [facility] directives.Performed By: #### 75114-5 #### LIAT Gregory ([id number]) [facility] ([facility]) [address] [place] [address] 63552FXIC-QpR-3 (COVID-19) RNA CODY+probe Ql (Resp)Not detected NormalNot DetectedWvumedicine Harrison Community HospitalComment on above: Order Comment: This assay is an FDA-cleared, in vitro diagnostic nucleic acid amplification test for the qualitative detection and differentiation of SARS CoV-2/ Influenza A/B from nasopharyngeal specimens collected from individuals with signs and symptoms of respiratory tract infections, and has been validated for use at [facility]. Negative results do not preclude COVID-19/ Influenza A/B infections and should not be used as the sole basis for diagnosis, treatment, or other management decisions. Testing for SARS CoV-2 is recommended only for patients who meet current clinical and/or epidemiological criteria defined by federal, state, or local public health directives.Performed By: #### 55081-2 #### LIAT Gregory ([id number]) [facility] ([facility]) [address] [place] [id number] - Hematology and Cell countson 58-48-0615Fqafbsugr RBC/100 WBC (Bld) [Ratio]0.0 %0.0 - 0.0 %[facility] Manual differential performed Ql (Bld)on 22-53-0380Ufac form neutrophils (Bld) [#/Vol]0.00 10*3/[facility] GlenbeighBand form neutrophils/100 WBC (Bld)0.0 %0.0 - 5.0 %[facility] CenterBasophils (Bld) [#/Vol]0.00 10*3/[facility] GlenbeighBasophils/100 WBC (Bld)0.0 % 0.0 - 2.0 %[facility] Medical CenterBlasts Manual cnt (Bld) [#/Vol]0.00 [facility] CenterBlasts/100 WBC (Bld)0.0 %0.0 - 0.0 %[facility] CenterCells Counted Total (Bld) [#]116 {cells}[facility] CenterEosinophils (Bld) [#/Vol]0.12 10*3/[facility] GlenbeighEosinophils/100 WBC (Bld)0.9 %0.0 - 6.0 %[facility] Medical CenterLymphocytes (Bld) [#/Vol]3.86 10*3/[facility] Lymphocytes/100 WBC (Bld)28.4 %13.0 - 44.0 %[facility] Metamyelocytes (Bld) [#/Vol]0.00 10*3/[facility] Metamyelocytes/100 WBC (Bld)0.0 %0.0 - 0.0 %[facility] Monocytes (Bld) [#/Vol]0.48 10*3/[facility] Monocytes/100 WBC (Bld)3.5 %2.0 - 10.0 %[facility] Myelocytes (Bld) [#/Vol]0.00 10*3/[facility] Myelocytes/100 WBC (Bld)0.0 %0.0 - 0.0 %[facility] Neutrophils (Bld) [#/Vol]6.45 10*3/[facility] GlenbeighPlasma cells (Bld) [#/Vol]0.00 10*3/[facility] GlenbeighPlasma cells/100 WBC Manual cnt (Bld)0.0 %0.00 - 0.00 %[facility] Promyelocytes (Bld) [#/Vol]0.00 10*3/[facility] Promyelocytes/100 WBC (Bld)0.0 %0.0 - 0.0 %[facility] CenterRB morphology finding Nom (Bld)See BelowSouthview Medical CenterSegmented neutrophils (Bld) [#/Vol]6.45 10*3/[facility] GlenbeighSegmented neutrophils/100 WBC (Bld)47.4 %40.0 - 80.0 %[facility] Comment on above:WBC: Vacuolated Neutrophils Present Percent differential counts (%) should be interpreted in the context of the absolute cell counts (cells/uL). Target cells LM Ql (Bld)[facility] CenterVarsycamore medical center lymphocytes (Bld) [#/Vol]2.69 10*3/[facility] CenterVarsycamore medical center lymphocytes/100 WBC (Bld)19.8 %0.0 - 2.0 %[facility] CenterW other Manual cnt (Bld) [#/Vol]0.00x10*3/[facility] Glen[facility]ighW other/100 WBC (Bld)0.0 %[facility] CenterBand form neutrophils (Bld) [#/Vol]0.00 x10*3/Normal0.00-0.70[facility] HospitalComment on above:Performed By: #### 15213-4 #### LIAT Gregory ([id number]) [facility] ([facility]) [address] [place], [place] [address]Band form neutrophils/100 WBC (Bld)0.0 %Normal0.0-5.0 [facility] HospitalComment on above:Performed By: #### 96715-2 #### LIAT Gregory ([id number]) [facility] ([facility]) [address] [place], [place] [address]Grxbtkels (Bld) [#/Vol]0.00 x10*3/uLNormal0.00-0.10[facility] Community HospitalComment on above:Performed By: #### 72463-8 #### LIAT Gregory ([id number]) [facility] ([facility]) [address] [place], [place] [address]Rojqrjczk/100 WBC (Bld)0.0 %Normal0.0-2.0UnMagruder Memorial HospitalComment on above:Performed By: #### 05158-3 #### LIAT Gregory ([id number]) [facility] ([facility]) [address] [place], [place] [address]Upjqzr Manual cnt (Bld) [#/Vol]0.00 x10*3/uLNormal0.00-0.00 [facility] HospitalComment on above:Performed By: #### 99200-6 #### LIAT Gregory ([id number]) [facility] ([facility]) [address] [place], [place] [address]Wvlfce/100 WBC (Bld)0.0 %Normal0.0-0.0[facility] HospitalComment on above:Performed By: #### 52096-8 #### LIAT Gregory ([id number]) [facility] ([facility]) [address] [place], [place] [address]Huqww Counted Total (Bld) [#]116NormalUniWayne HealthCare Main CampusComment on above:Performed By: #### 84286-7 #### LIAT Gregory ([id number]) [facility] ([facility]) [address] [place], [place] [address]Wuiszjknmjo (Bld) [#/Vol]0.12 x10*3/uLNormal0.00-0.70 [facility] HospitalComment on above:Performed By: #### 00764-7 #### LIAT Gregory ([id number]) [facility] ([facility]) [address] [place], [place] [address]Naljnwutwsz/100 WBC (Bld)0.9 %Normal0.0-6.0UnMagruder Memorial HospitalComment on above:Performed By: #### 25994-0 #### LIAT Gregory ([id number]) [facility] ([facility]) [address] [place] [address]Vnyiinnldoi (Bld) [#/Vol]3.86 x10*3/uLNormal1.20-4.80 [facility] HospitalComment on above:Performed By: #### 44246-1 #### LIAT Gregory ([id number]) [facility] ([facility]) [address] [place] [address]78[address]Wandmjuxphj/100 WBC (Bld)28.4 %Nunpjw83.0-44.0UnMagruder Memorial HospitalComment on above:Performed By: #### 45426-0 #### LIAT Gregory ([id number]) [facility] ([facility]) [address] [place] [address] 05[address]Xjxuabsjmmegtv (Bld) [#/Vol]0.00 x10*3/uLNormal0.00-0.00 [facility] HospitalComment on above:Performed By: #### 70923-7 #### LIAT Gregory ([id number]) [facility] ([facility]) [address] [place], [place] [address]Einhnfbsknwuba/100 WBC (Bld)0.0 %Normal0.0-0.0UnMagruder Memorial HospitalComment on above:Performed By: #### 63788-0 #### LIAT Gregory ([id number]) [facility] ([facility]) [address] [place] [address] 080[address]Jaxhejmoh (Bld) [#/Vol]0.48 x10*3/uLNormal0.10-1.00UnMagruder Memorial HospitalComment on above:Performed By: #### 13743-5 #### LIAT Gregory ([id number]) [facility] ([facility]) [address] [place] [address] 46482Mmxhsmhca/100 WBC (Bld)3.5 %Normal2.0-10.0UnMagruder Memorial HospitalComment on above:Performed By: #### 90767-9 #### LIAT Gregory ([id number]) [facility] ([facility]) [address] [place] [address] 11276Lhvoygpmhf (Bld) [#/Vol]0.00 x10*3/uLNormal0.00-0.00 [facility] HospitalComment on above:Performed By: #### 88849-4 #### LIAT Gregory ([id number]) [facility] ([facility]) [address] [place] [address] 41061Scrvzdcozx/100 WBC (Bld)0.0 %Normal0.0-0.0UnMagruder Memorial HospitalComment on above:Performed By: #### 25821-8 #### LIAT Gregory ([id number]) [facility] ([facility]) [address] [place] [address] 82754Whejiywbaeo (Bld) [#/Vol]6.45 x10*3/uLNormal1.20-7.70 [facility] HospitalComment on above:Performed By: #### 10364-4 #### LIAT Gregory ([id number]) [facility] ([facility]) [address] [place] [address] 29021Eflaylzgj RBC/100 WBC (Bld) [Ratio]0.0 %Normal0.0-0.0 [facility] HospitalComment on above:Performed By: #### 44166-7 #### LIAT Gregory ([id number]) [facility] ([facility]) [address] [place] [address] 28678Tciwnr cells (Bld) [#/Vol]0.00 x10*3/uLNormal0.00-0.00 [facility] HospitalComment on above:Performed By: #### 10592-8 #### LIAT Gregory (77450) [facility] ([facility]) [address] [place] [address] 84763Gekbpe cells/100 WBC Manual cnt (Bld)0.0 %Normal0.00-0.00 [facility] HospitalComment on above:Performed By: #### 38993-8 #### LIAT Gregory ([id number]) [facility] ([facility]) [address] [place] [address] 51279Deamzlkbsexcz (Bld) [#/Vol]0.00 x10*3/uLNormal0.00-0.00 [facility] HospitalComment on above:Performed By: #### 61178-7 #### LIAT Gregory ([id number]) [facility] ([facility]) [address] [place] [address] 26294Pjfakfyqdskxl/100 WBC (Bld)0.0 %Normal0.0-0.0UnMagruder Memorial HospitalComment on above:Performed By: #### 33119-3 #### LIAT Gregory ([id number]) [facility] ([facility]) [address] [place] [address] 43764BMR morphology finding Nom (Bld)See BelowNormalUniversCleveland ClinicComment on above:Performed By: #### 47605-2 #### LIAT Gregory ([id number]) [facility] ([facility]) [address] [place] [address] 59169Qxyzifvcr neutrophils (Bld) [#/Vol]6.45 x10*3/uLNormal 1.20-7.00[facility] HospitalComment on above:Performed By: #### 40638-5 #### LIAT Gregory ([id number]) [facility] ([facility]) [address] [place] [address] 65759Ybgaedpnl neutrophils/100 WBC (Bld)47.4 %Xfgzcq83.0-80.0 [facility] HospitalComment on above:Result Comment: WBC: Vacuolated Neutrophils Present Percent differential counts (%) should be interpreted in the context of the absolute cell counts (cells/uL).Performed By: #### 79230-4 #### LIAT Gregory ([id number]) [facility] ([facility]) [address] [place] [address] 15512Abxbdh cells LM Ql (Bld)UC HealthComment on above:Performed By: #### 95172-4 #### LIAT Gregory ([id number]) [facility] ([facility]) [address] [place] [address] 39048Clljcbm lymphocytes (Bld) [#/Vol]2.69 x10*3/uLHigh0.00-0.50 [facility] HospitalComment on above:Performed By: #### 85647-9 #### LIAT Gregory ([id number]) [facility] ([facility]) [address] [place] [address] 40004Ekfuhks lymphocytes/100 WBC (Bld)19.8 %Normal0.0-2.0 [facility] HospitalComment on above:Performed By: #### 72067-1 #### LIAT Gregory ([id number]) [facility] ([facility]) [address] [place] [address] 79538PHB other Manual cnt (Bld) [#/Vol]0.00 x10*3/uLNoal [facility] HospitalComment on above:Performed By: #### 68264-4 #### LIAT Gregory ([id number]) [facility] ([facility]) [address] [place] [address] 12802STC other/100 WBC (Bld)0.0 %NormalWvumedicine Harrison Community HospitalComment on above:Performed By: #### 84581-7 #### LIAT Gregory ([id number]) [facility] ([facility]) [address] [place] [address] 05366Gy Panel Informationon 78-11-7363Mopspvbcqthfbb and review of laboratory resultsAbMansfield HospitalPathologist review Pathologist comment (Bld) [Interp]on 07-28-2025 PATH REVIEW-CBC DIFFERENTIALMild lymphocytosis with frequent lymphocytes with moderately abundant granular cytoplasm, indented/convoluted nuclei with condensed chromatin. If lymphocytosis is persistent and otherwise unexplained (such as viral infection), consider flow cytometry.[facility] Willard HospitalComment on above:Result Comment: . By the signature on this report, the individual or group listed as making the Final Interpretation/Diagnosis certifies that they have reviewed this case. Performed By: #### 47959-6 #### LIAT Gregory ([id number]) [facility] ([facility]) [address] [place] [address] 60776RV CHEST 2 VIEWSon 10-71-9276VO CHEST 2 VIEWSSTUDY: Chest Radiographs; 07/28/2025 5:22PM INDICATION: Shortness of breath and congestion. COMPARISON: None Available ACCESSION NUMBER(S): [id number] ORDERING CLINICIAN: ALEX CID TECHNIQUE: Frontal and lateral chest. FINDINGS: CARDIOMEDIASTINAL SILHOUETTE: Cardiomediastinal silhouette is normal in size and configuration. LUNGS: Lungs are clear. ABDOMEN: No remarkable upper abdominal findings. BONES: No acute osseous changes. IMPRESSION: No focal regions of airspace consolidation. Signed by Evaristo Bales MDMercy Health Willard HospitalXR Chest 2 Viewson 90-94-4245Xu focal regions of airspace consolidation. Signed by Evaristo Bales MD TELERADIOLOGYSTUDY: Chest Radiographs; 07/28/2025 5:22PM INDICATION: Shortness of breath and congestion. COMPARISON: None Available ACCESSION NUMBER(S): [id number] ORDERING CLINICIAN: ALEX CID TECHNIQUE: Frontal and lateral chest. FINDINGS: CARDIOMEDIASTINAL SILHOUETTE: Cardiomediastinal silhouette is normal in size and configuration. LUNGS: Lungs are clear. ABDOMEN: No remarkable upper abdominal findings. BONES: No acute osseous changes. TELERADIOLOGYEvaristo Bales MD - 07/28/2025 STUDY: Chest Radiographs; 07/28/2025 5:22PM INDICATION: Shortness of breath and congestion. COMPARISON: None Available ACCESSION NUMBER(S): [id number] ORDERING CLINICIAN: ALEX CID TECHNIQUE: Frontal and lateral chest. FINDINGS: CARDIOMEDIASTINAL SILHOUETTE: Cardiomediastinal silhouette is normal in size and configuration. LUNGS: Lungs are clear. ABDOMEN: No remarkable upper abdominal findings. BONES: No acute osseous changes. IMPRESSION: No focal regions of airspace consolidation. Signed by Evaristo Bales MD [facility] Work Phone: Radiology Study observation (narrative)[facility] Work Phone: xr Chest 2 ViewsOrdered By: Evaristo Bales on 07-28-2025 [facility] Work Phone: Basic Metabolic Panelon 58-71-1919Ftryumwzli Clr Calc Ksqpvqvf208.52NoSwain Community Hospital Physician GroupComment on above:Result Comment: PERFORMED BY: [place] [address] PATHOLOGIST DIAMOND DIE DRILLER ARIE AZEVEDO M.D.Performed By: #### BMP #### [facility] [address] [place] [address] USAGFR/1.73 sq M.predicted MDRD (S/P/Bld) [Vol rate/Area] mL/min/{1.73_m2}NormalThe Critical Access Hospital Physician [facility] Hospital At Stone CountyComment on above:Performed By: #### BMP #### [facility] [address] [place] [address] USABasophils [#/volume] in Blood by Automated countOrdered By: JOSÉ RODRIGUEZ on 55-02-0812Eihozdqat (Bld) [#/Vol]0.1 10*3/uLNormal0.0-0.2 [facility] HospitalComment on above:Result Comment: PERFORMED BY: [facility] [address] [place] [address] PATHOLOGIST DIAMOND DIE DRILLER ARIE AZEVEDO M.D.Performed By: #### CBC #### [facility] [address] [place] [id number] USABasophils/100 leukocytes in Blood by Automated count Ordered By: JOSÉ RODRIGUEZ on 40-52-9447Dvwztknmu/100 WBC (Bld)1.0 %Normal. [facility] HospitalComment on above:Performed By: #### CBC #### [facility] [address] [place] [address] USACalcium [Mass/volume] in Serum or PlasmaOrdered By: JOSÉ RODRIGUEZ on 50-18-4866Mwgkhqk [Mass/Vol]8.6 mg/dLNormal8.6-10.3FGlenbeigh HospitalComment on above:Performed By: #### BMP #### [facility] [address] [place] [address] USACapillary blood glucose measurement by glucometer (mass/volume)Ordered By: Derek Viera on 72-68-7107Rstatpp [Mass/Vol]178 mg/dL [facility] HospitalComment on above:Random Glucose Reference Range is [...] Serum or PlasmaOrdered By: JOSÉ RODRIGUEZ on 92-28-8903CL2 [Moles/Vol]23.0 mmol/MVmwgfc77.0-31.0[facility] HospitalComment on above:Performed By: #### BMP #### [place] [id number] USAChloride [Moles/volume] in Serum or PlasmaOrdered By: JOSÉ RODRIGUEZ on 93-32-7206Cuzsiflb [Moles/Vol]106 mmol/WRhovzp16-756QtgxkxweaMercy Health Kings Mills HospitalComment on above:Performed By: #### BMP #### [facility] [address] [place] [address] USAComplete Blood Count Auto Diffon 77-96-2712Vhyr Corpuscular HGB Conc34.4 g/dMFktqxs88.0-35.0The [facility] Access Hospital Physician GroupComment on above:Performed By: #### CBC #### [facility] [address] [place] [address] USANRBC%0.0 /100{WBC}Normal0-0.5[facility] Comment on above:Performed By: #### CBC #### [facility] [address] [place] [address] USAWhite Blood Count11.9 [CFU]/mLHigh3.8-11.6[facility] Physician [facility] At Stone CountyComment on above:Performed By: #### CBC #### [place] [address] USACreatinine [Mass/volume] in Serum or PlasmaOrdered By: JOSÉ RODRIGUEZ on 95-10-8291Bwcsamjtnk [Mass/Vol]0.48 mg/dLLow0.60-1.20[facility] HospitalComment on above:Performed By: #### BMP #### [place] [address] USAECG 12 lead ECGon 51-04-1037SSZ 12 lead ECGPARKVIEW [facility] Main [place] [address] [place] [address] Electrocardiograph Report Signed Patient: Gary Vigil MR#: [id number] : 1985 Acct:[id number] Age/Sex: 40 / F ADM Date: 06/28/25 Loc: [place] Room: Type: [facility] Attending Dr: Derek Viera MD Ordering Provider: [...] abnormality Abnormal ECG Confirmed by Lily Moreira ([id number]) on 06/28/2025 11:41:39 AM Referred By: Electronically Signed By: Lily Moreira Transcribed By: MUS Signed By Lily Moreira MD [address] [place] [address] Physician GroupEosinophils [#/volume] in Blood by Automated countOrdered By: JOSÉ RODRIGUEZ on 04-47-3469Blklnzoafst (Bld) [#/Vol] 0.2 10*3/uLNormal0.0-0.45[facility] HospitalComment on above: Performed By: #### CBC #### [facility] [address] [place] [address] USAEosinophils/100 leukocytes in Blood by Automated count Ordered By: JOSÉ RODRIGUEZ on 27-20-5673Bytouwylmdp/100 WBC (Bld)1.7 %Normal. [facility] HospitalComment on above:Performed By: #### CBC #### [facility] [address] [place] [address] USAErythrocyte distribution width [Ratio] by Automated count Ordered By: JOSÉ RODRIGUEZ on 44-15-8927Qjuhurqezrj distribution width (RBC) [Ratio]14.8 %Sonywq08.9-15.3FGlenbeigh HospitalComment on above: Performed By: #### CBC #### [facility] [address] [place] [address] USAErythrocytes [#/volume] in Blood by Automated countOrdered By: JOSÉ RODRIGUEZ on 44-03-7610YNA (Bld) [#/Vol]4.02 10*6/uLNormal3.60-5.00 [facility] HospitalComment on above:Performed By: #### CBC #### [facility] [address] [place] [address] USAGLUCOSE POCT GLUCOMETERSon 87-90-4077CYWPIAY2Mjs3: Cleaned MeterNOMS HealthcareGlucose [Mass/Vol]178 mg/dLNOMS HealthcareComment on above: Random Glucose Reference Range is dependent on time and content of last meal. Glucose of more than 200 mg/dL in a nonstressed, ambulatory subject supports the diagnosis of Diabetes Mellitus. NOMS HealthcareGlucose Poct Glucometerson 91-28-8916Hzzwqrv0Djh7: Cleaned Meter NormalThe Critical Access Hospital Physician GroupComment on above:Result Comment: PERFORMED BY: [place] [address] PATHOLOGIST DIAMOND DIE DRILLER ARIE AZEVEDO M.D.Performed By: #### GLULS #### Point of Care testing ,Glucose [Mass/volume] in Serum or PlasmaOrdered By: JOSÉ RODRIGUEZ on 06-28-2025 Glucose [Mass/Vol]167 mg/tOFapa24-688QkwfquxagMercy Health Kings Mills HospitalComment on above:ADA recommended reference rangeRandom Glucose [...] recommended reference rangePerformed By: #### BMP #### [facility] [address] [place] [address] USAHematocrit [Volume Fraction] of Blood by Automated count Ordered By: JOSÉ RODRIGUEZ on 76-61-7273Yduncsmtwm (Bld) [Volume fraction]37.0 % Wtvtqx53.0-46.4FGlenbeigh HospitalComment on above:Performed By: #### CBC #### [facility] [address] [place], [place] [address] USAHemoglobin [Mass/volume] in BloodOrdered By: JOSÉ RODRIGUEZ on 02-40-3097Dkwjarhfrz (Bld) [Mass/Vol]12.7 g/eTRzotku32.8-15.4FGlenbeigh HospitalComment on above:Performed By: #### CBC #### [address] [address] USALon 06-28-2025L Specimen: [id number] Received: 06/28/25 Status: HILARY Shane Num: [id number] Spec Type: Surgical Subm Dr: Derek Viera [...] Location Account Attending Physician Gary Vigil 40/F [place] [id number] Derek Viera MD SPEC NUM: [id number] RECD: 06/28/25 STATUS: HILARY SHANE NUM: [id number] ZHENG: 06/28/25-[address]: Derek Viera MD ENTERED: 06/28/[address] [facility] DR: SPEC TYPE: Surgical DEPT: S ENTERED BY: [id number] RECV BY: [id number] ORDERED: HE/10, Gross/Micro L4/5 ORDERED: HE/10, Gross/Micro [...] Gordillo syndrome, Gorlin syndrome and others. Specimen: [id number] Received: 06/28/25 Status: HILARY Shane Num: [id number] Spec Type: Surgical Subm Dr: Derek Viera [...] , Meka/Girish L4/5 Patient: Gary Vigil N [id number] (Continued) Specimen: [id number] Received: 06/28/25 (Continued) Pathological Diagnosis (Continued) Signed (signature on file) Vinay Middleton MD 06/29/25 1031 Specimen: [id number] Received: 06/28/25 Status: HILARY Shane Num: [id number] Spec Type: Surgical Subm Dr: Derek Viera [...] , Gross/Micro L4/5 Patient: Gary Vigil [place] [id number] (Continued) Specimen: [id number] Received: 06/28/25 (Continued) Pathological Diagnosis (Continued) Recommend [...] glistening, and uniform (more content not included)...NormalThe Critical Access Hospital Physician GroupLeukocytes [#/volume] corrected for nucleated erythrocytes in Blood by Automated counOrdered By: JOSÉ RODRIGUEZ on 06-28-2025 WBC corrected for nucl RBC Auto (Bld) [#/Vol]11.9 10*3/uLHigh3.8-11.6FGlenbeigh HospitalLeukocytes [#/volume] in Blood by Automated countOrdered By: JOSÉ RODRIGUEZ on 76-03-1581ZGK (Bld) [#/Vol]11.9 10*3/uLHigh3.8-11.6 [facility] HospitalComment on above:Performed By: #### CBC #### [facility] [address] [place] [address] USALymphocytes [#/volume] in Blood by Automated countOrdered By: JOSÉ RODRIGUEZ on 88-63-8499Yfcxxizijyc (Bld) [#/Vol]5.2 10*3/uLHigh1.00-4.8 [facility] HospitalComment on above:Performed By: #### CBC #### [place] [address] USALymphocytes/100 leukocytes in Blood by Automated count Ordered By: JOSÉ RODRIGUEZ on 90-90-1557Dqmetjflpfo/100 WBC (Bld)44.1 %Normal. [facility] HospitalComment on above:Performed By: #### CBC #### [address] [Entitic mass] by Automated countOrdered By: JOSÉ RODRIGUEZ on 58-16-5947MTN (RBC) [Entitic mass]31.6 yjAojmfp86.7-34.3FGlenbeigh HospitalComment on above:Performed By: #### CBC #### [address] Auto (RBC) [Mass/Vol]Ordered By: JOSÉ RODRIGUEZ on 31-30-2225OELP (RBC) [Mass/Vol]34.4 g/dL32.0-35.0[facility] HospitalMCV [Entitic volume] by Automated countOrdered By: JOSÉ RODRIGUEZ on 04-07-0287SLK (RBC) [Entitic vol]92.1 rSGypkbv04-263OoncvansnMercy Health Kings Mills HospitalComment on above:Performed By: #### CBC #### [place] [address] USAMonocytes [#/volume] in Blood by Automated countOrdered By: JOSÉ RODRIGUEZ on 37-04-2613Upcufysuq (Bld) [#/Vol]0.7 10*3/uLNormal0.0-0.8 [facility] HospitalComment on above:Performed By: #### CBC #### [facility] [address] [place] [address] USAMonocytes/100 leukocytes in Blood by Automated count Ordered By: JOSÉ RODRIGUEZ on 46-52-6304Xkbbjtbpf/100 WBC (Bld)6.2 %Normal. [facility] HospitalComment on above:Performed By: #### CBC #### [facility] [address] [place] [address] USANeutrophils [#/volume] in Blood by Automated countOrdered By: JOSÉ RODRIGUEZ on 05-86-9648Mzirqrqwvym (Bld) [#/Vol]5.6 10*3/uLNormal1.8-7.7 [facility] HospitalComment on above:Performed By: #### CBC #### [facility] [address] [place] [address] USANeutrophils/100 leukocytes in Blood by Automated count Ordered By: JOSÉ RODRIGUEZ on 75-40-0365Gmtrvbaeuck/100 WBC (Bld)47.0 %Normal. [facility] HospitalComment on above:Performed By: #### CBC #### [facility] [address] [place] [address] USANo Panel InformationOrdered By: JOSÉ RODRIGUEZ on 54-61-1296Yxvvxovjp GFR (CKD-EPI)> 60.0 mL/MinMercy Health Kings Mills Hospital Pharmacy Creatinine Clearance (Dwwl426.52[facility] HospitalNo Panel InformationOrdered By: Derek Viera on 30-98-9644Uexfrki Glucose Comment Glu2: cleaned [facility] Medical CenterNucleated erythrocytes [Presence] in Blood by Automated countOrdered By: JOSÉ RODRIGUEZ on 06-28-2025 Nucleated RBC Auto Ql (Bld)0.0 /100{WBC}0-0.5FGlenbeigh Hospital Platelet mean volume [Entitic volume] in Blood by Automated countOrdered By: JOSÉ RODRIGUEZ on 02-83-8739Rvhiyaai mean volume (Bld) [Entitic vol]8.1 fLNormal 6.3-10.7FGlenbeigh HospitalComment on above:Performed By: #### CBC #### [facility] [address] [place] [address] USAPlatelets [#/volume] in Blood by Automated countOrdered By: JOSÉ RODRIGUEZ on 92-49-1618Ppbaarxmk (Bld) [#/Vol]354 10*3/uUVsvgxw342-813 [facility] HospitalComment on above:Performed By: #### CBC #### [facility] [address] [place] [address] USAPotassium [Moles/volume] in Serum or PlasmaOrdered By: JOSÉ RODRIGUEZ on 76-71-1307Afrapseai [Moles/Vol]3.1 mmol/LLow3.5-5.1FGlenbeigh HospitalComment on above:Performed By: #### BMP #### [place] [address] USASerum or plasma anion gap determinationOrdered By: JOSÉ RODRIGUEZ on 43-48-5640Nqebd gap [Moles/Vol]13.1 mmol/LNormal6.0-15.0[facility] HospitalComment on above:Performed By: #### BMP #### [facility] [address] [place] [address] USASodium [Moles/volume] in Serum or PlasmaOrdered By: JOSÉ RODRIGUEZ on 99-73-2741Lkfjtj [Moles/Vol]139 mmol/GAxjmph404-070KswndydtyMercy Health Kings Mills HospitalComment on above:Performed By: #### BMP #### [place] [address] USAUS pelvic completeon 07-23-7482ZS pelvic completePARKVIEW [facility]ALTH [facility] Main [place] [address] [place] [address] Ultrasound Report Signed Patient: Gary Vigil MR#: [id number] : 1985 Acct:[id number] Age/Sex: 40 / F ADM Date: 06/28/25 Loc: Room: Type: [facility] Attending Dr: Kelsea Joseph APRN, INTERACTIVE DESIGNER-C Ordering Provider: Kelsea Joseph APRN, BEACH EXPERT Date of Service: 06/28/25 US/US pelvic complete: R10.2 ([id number]) US/US transvaginal: R10.2 Copies to: Kelsea Joseph [...] Jr., D.O. 06/28/2025 2:03 PM Dictation Location: [place] [address] Tech: Taty Lerner Transcribed By: DESHAWN 06/28/25 1403 Dictated By: Raymon Ruelas Jr, DO 06/28/25 1356 Signed By: 06/28/25 1403[facility] Physician GroupUrea nitrogen [Mass/volume] in Serum or PlasmaOrdered By: JOSÉ RODRIGUEZ on 72-26-1028Kvby nitrogen [Mass/Vol]8 mg/dLNoal06-18[facility] HospitalComment on above:Performed By: #### BMP #### [place] [address] USAMM diagnostic mammo BI w/CADon 55-44-1635NE diagnostic mammo BI w/[facility] Main [place] [address] [place] [address] Ultrasound Report Signed Patient: Gary Vigil MR#: [id number] : 1985 Acct:[id number] Age/Sex: 40 / F ADM Date: 06/16/25 Loc: [place] Room: Type: [facility] Attending Dr: Kelsea Joseph APRN, INTERACTIVE DESIGNER-C Ordering Provider: Kelsea Joseph APRN, CNP Date of Service: 06/16/25 MM/MM diagnostic mammo BI w/CAD: N64.4 ([id number]) US/US breast LT limited: ABNORMAL MAMM LEFT [...] Maddox M.D. 06/16/2025 2:25 PM Dictation Location: [facility] Tech: Paola Martin Transcribed By: DESHAWN 06/16/25 142 Dictated By: Jan Maddox MD 06/16/25 1423 Signed By: 06/16/25 1425[facility] Physician GroupX-ray reportOrdered By: Jan Maddox on 16-77-6443Oolkm reportPARKVIEW HEALTH [facility]ONTPELIER [place] [address] XRay Report Signed Patient: Gary Vigil MR#: [id number] : 1985 Acct:[id number] Age/Sex: 40 / F ADM Date: 5 Loc: ER Room: Type: [facility] ER Attending Dr: Copies to: Hanane [...] MD 06/02/252215 Signed By: 06/02/252215 [facility] Work Phone: XR shoulder RT min 2V*on 26-63-1405JG shoulder RT min 2V*[facility] Main [place] [address] [place] [address] XRay Report Signed Patient: Gary Vigil MR#: [id number] : 1985 Acct:[id number] Age/Sex: 40 / F ADM Date: 06/02/25 Loc: ER Room: Type: [facility] ER Attending Dr: Copies to: Hanane [...] Jan Maddox MD 06/02/252215 Signed By: 06/02/[address] [place] [address] Physician GroupIGP,APTIMA HPV,AGE GDLNon 05-19-9002NDC GDLN ACOG TESTINGNote.NOMS HealthcareComment on above:TESTS RESULT FLAG UNITS REF RANGE LAB Clinician Provided Cytology Information Source.............Cervix;Endocervix No. of containers..01 ThinPrep Vial Age Algo ACOG Ginna... FLAG LEGEND: L-Low Normal,H-High Normal,LL-Alert Low,HH-Alert High <-Panic Low,>-Panic High,A-Abnormal,AA-Critical Abnormal Performed at: 01 =[address] [place] [address] Carmelita Kunz MD, HPV APTIMANegativeNegativeNOMS HealthcareComment on above:This nucleic acid amplification test detects fourteen high- risk HPV types (16,18,31,33,35,39,45,51,52,56,58,59,66,68) without differentiation. Performed at: =[address] [id number] Automatic Pinsetter Adjuster: Carmelita Kunz MD, Phone: [phone] Performed at: [address] [id number] Automatic Pinsetter Adjuster: Carmelita Kunz MD, Phone: [phone] IGP, APTIMA HPV, RFX 16/18,45Note.[facility] HealthcareComment on above:TESTS RESULT FLAG UNITS REF RANGE LAB DIAGNOSIS: 02 NEGATIVE FOR INTRAEPITHELIAL LESION OR MALIGNANCY. Specimen adequacy: 02 Satisfactory for evaluation. No endocervical component is identified. Performed by: 02 Trinidad Abreu Shopper Insights Manager (ASCP) . 02 Note: Note 02 The [...] High,A-Abnormal,AA-Critical Abnormal Performed at: 02 [facility] [address] [place] [address] Carmelita Kunz MD, BRUSH-SPATULA CERVIX ENDOCERVIX [facility] KsdotxbnwvS4D with Estimated Average Gluon 15-45-0942Wnjwktt [Mass/Vol]137 mg/dLNoSwain Community Hospital Physician GroupComment on above:Order Comment: DR KELSEA Schmidt Comment: PERFORMED BY: [place] [id number] PATHOLOGIST DIAMOND DIE DRILLER ARIE AZEVEDO M.D.Performed By: #### A1C [facility] eA #### [place] [id number] USABlood estimated average glucose determination by estimation from glycated hemoglobinOrdered By: NON STAFF on 78-68-7467Ptgehib glucose Estimated from glycated hemoglobin (Bld) [Mass/Vol]137 mg/dLMercy Health Kings Mills HospitalHemoglobin A1c/Hemoglobin.total in BloodOrdered By: NON STAFF on 05-70-0134OsC9j (Bld) [Mass fraction]6.4 %High4.3-5.6FGlenbeigh HospitalComment on above:Increased risk for diabetes: 5.7 - 6.4diabetes: >6.4glycemic control for adults with diabetes: <7.0Order Comment: DR KELSEA Schmidt Comment: Increased risk for diabetes: 5.7 - 6.4 diabetes: >6.4 glycemic control for adults with diabetes: <7.0Performed By: #### A1C WT eA #### [place] [id number] USARECURRENT VAGINITIS (HTRX)on 75-63-2986BILZRPCGI VAGINAE0 NOMS HealthcareATOPOBIUM VAGINAENot detectedNOMS HealthcareBVAB 2,3 (BACTERIAL VAGINOSIS ASSOCIATED BACTERIA 2, 3); MOBILUNCUS GEL0FTOK HealthcareBVAB 2,3 (BACTERIAL VAGINOSIS ASSOCIATED BACTERIA 2, 3); MOBILUNCUS SPPNot detectedNOMS HealthcareCANDIDA ALBICANS, PARAPSILOSIS, DQZLXTXMIQ2KBVT HealthcareCANDIDA ALBICANS, PARAPSILOSIS, TROPICALISNot detectedNOMS HealthcareCANDIDA GLABRATA 26.172AbnormalNOMS HealthcareCANDIDA GLABRATADetectedAbnormalNOMS Healthcare SERENITY DKAVNY3HUQT HealthcareCANDIDA KRUSEINot detectedNOMS HealthcareCHLAMYDIA KQJKHFCLYOG7KSTO HealthcareCHLAMYDIA TRACHOMATISNot detectedNOMS HealthcareERMB, C; MEFA14.817AbnormalNOMS HealthcareERMB, C; MEFADetectedAbnormalNOMS Healthcare GARDNERELLA GJSCDDWPP05.857AbnormalNOMS HealthcareGARDNERELLA VAGINALISDetected AbnormalNOMS HealthcareInterpretation and review of laboratory resultsAbnormal NOMS HealthcareMEGASPHAERA (TYPES 1, 2)0NOMS HealthcareMEGASPHAERA (TYPES 1, 2) Not detectedNOMS HealthcareMYCOPLASMA JVNLDOUDEP3IETP HealthcareMYCOPLASMA GENITALIUMNot detectedNOMS HealthcareNEISSERIA BAJKGIFLJCW3URMO Healthcare NEISSERIA GONORRHOEAENot detectedNOMS HealthcareTET B, TET M15.141AbnormalNOMS HealthcareTET B, TET MDetectedAbnormalNOMS HealthcareTRICHOMONAS GHMXELBAA04.644 AbnormalNOMS HealthcareTRICHOMONAS VAGINALISDetectedAbnormalNOMS HealthcareNOMS HealthcareUrinalysis macro (dipstick) panel (U)on 21-29-8855Gjsfiminb, UA NegativeNegative - 4(70) +++ mg/dLNOMS HealthcareBlood, UANegativeNegative - 50 Slade/mcLNOMS HealthcareClarity, UAClearNOMS HealthcareColor, UAYellowNOMS HealthcareGlucose, UANegativeNegative - 1999(110) ++++ mg/dLNOIL Healthcare Interpretation and review of laboratory resultsNormalNOMS HealthcareKetones, UA NegativeNegative - 160(16) ++++ mg/dLNOIL HealthcareLeukocytes, UANegative Negative - 500+++ Sadie/mcLNOIL HealthcareNitrite, UANegativeNegative - Positive NOMS HealthcarepH, UA75 - 9NOMS HealthcareProtein, UANegativeNegative - 2000(20) ++++ mg/dLNOMS HealthcareSpec Grav, UA1.0151 - 1.03NOMS HealthcareUrobilinogen, UA0.20.2 - 12 mg/dLNOMS HealthcareNOMS HealthcareAlanine aminotransferase [Enzymatic activity/volume] in Serum or PlasmaOrdered By: Miquel Andrews on 40-94-3656OSR [Catalytic activity/Vol]Alanine aminotransferase [Enzymatic activity/volume] in Serum or Plasma7-52[facility] HospitalAlbumin [Mass/volume] in Serum or Plasma by Bromocresol green (BCG) dye binding metho Ordered By: Miquel Andrews on 74-44-0549Injtrvo BCG dye [Mass/Vol]Albumin [Mass/volume] in Serum or Plasma by Bromocresol green (BCG) dye binding metho 3.5-5.7FGlenbeigh HospitalAlkaline phosphatase [Enzymatic activity/volume] in Serum or PlasmaOrdered By: Miquel Andrews on 60-08-7846DMT [Catalytic activity/Vol]Alkaline phosphatase [Enzymatic activity/volume] in Serum or Loqlbo27-442OhngzlpauMercy Health Kings Mills HospitalAppearance of UrineOrdered By: Miquel Andrews on 27-29-0749Evqsgkjedl (U)Urine appearanceClePremier Health Miami Valley Hospital SouthAspartate aminotransferase [Enzymatic activity/volume] in Serum or PlasmaOrdered By: Miquel Andrews on 11-01-3379DOW [Catalytic activity/Vol]Aspartate aminotransferase [Enzymatic activity/volume] in Serum or WqiibvBbq24-91TdydnlyeeMercy Health Kings Mills HospitalBacteria [Presence] in Urine by AutomatedOrdered By: Miquel Andrews on 34-41-3982Wyiyjejp Auto Ql (U)Bacteria [Presence] in Urine by AutomatedNone SeenMercy Health Kings Mills Hospital Basophils Auto (Bld) [#/Vol]Ordered By: Miquel Andrews on 85-87-9975Uaandnwhk (Bld) [#/Vol]Automated basophil count0.0-0.2FGlenbeigh Hospital Basophils/100 WBC Auto (Bld)Ordered By: Miquel Andrews on 72-75-4435Imdcecsne/100 WBC (Bld)Automated basophil %.[facility] HospitalBilirubin Test strip Ql (U)Ordered By: Miquel Andrews on 30-28-3421Izihuzzbk Ql (U) Bilirubin.total [Presence] in Urine by Test stripNegativeMercy Health Kings Mills HospitalBilirubin.total [Mass/volume] in Serum or PlasmaOrdered By: Miquel Andrews on 90-93-6599Qbavekxcg [Mass/Vol]Bilirubin.total [Mass/volume] in Serum or Plasma0.3-1.0[facility] HospitalCT abdomen pelvis wo conon 95-83-5465EA abdomen pelvis wo [facility] Main [address] [address] [address] Scan Report Signed Patient: Gary Vigil MR#: [id number] : 1985 Acct:[id number] Age/Sex: 39 / F ADM Date: 02/10/25 [...] Jan Maddox M.D.02/10/2025 3:41 PM Dictation Location: [place] [address] Transcribed By: [facility] 02/10/25 1541 Dictated By: Jan Maddox MD 02/10/25 1538 Signed By: 02/10/25 1541[facility] Physician GroupCalcium [Mass/volume] in Serum or PlasmaOrdered By: Miquel Andrews on 24-03-6450Upqcjbo [Mass/Vol]Calcium [Mass/volume] in Serum or Plasma8.6-10.3FGlenbeigh HospitalCarbon dioxide, total [Moles/volume] in Serum or PlasmaOrdered By: Miquel Andrews on 28-40-1469AQ5 [Moles/Vol]Carbon dioxide, total [Moles/volume] in Serum or Plasma 21.0-31.0[facility] HospitalChloride [Moles/volume] in Serum or PlasmaOrdered By: Miquel Andrews on 20-29-2091Oufeocnl [Moles/Vol]Chloride [Moles/volume] in Serum or Mfnjyn59-674JwtwrlucsMercy Health Kings Mills HospitalColor Auto (U)Ordered By: Miquel Andrews on 01-78-4740Mamzd (U)Color of Urine by Auto YellowMercy Health Kings Mills HospitalComplete Blood Count Auto Diffon 00-66-3983Klmmzdfiv (Bld) [#/Vol]0.1 10*3/uLNormal0.0-0.2The [facility] Hospital Physician GroupComment on above:Result Comment: PERFORMED BY: [place] [address] PATHOLOGIST DIAMOND DIE DRILLER RICARDO ANDRE M.D.Performed By: #### CMP, CBC #### [place] [address] USABasophils/100 WBC (Bld)1.3 %Normal.The [facility] Access Hospital Physician GroupComment on above:Performed By: #### CMP, CBC #### [facility] [address] [place] [address] USAEosinophils (Bld) [#/Vol]0.1 10*3/uLNormal0.0-0.45The [facility] Access Hospital Physician GroupComment on above:Performed By: #### CMP, CBC #### [place] [address] USAEosinophils/100 WBC (Bld)0.9 %Normal.The [facility] Hospital Physician GroupComment on above:Performed By: #### CMP, CBC #### [place] [address] USAErythrocyte distribution width (RBC) [Ratio]15.2 %Normal 11.9-15.3The [facility] Access Hospital Physician GroupComment on above:Performed By: #### CMP, CBC #### [place] [address] USAHematocrit (Bld) [Volume fraction]38.8 %Mqqdew77.0-46.4The [facility] Access Hospital Physician GroupComment on above:Performed By: #### CMP, CBC #### [place] [address] USAHemoglobin (Bld) [Mass/Vol]13.2 g/oHTgvzrt13.8-15.4The [facility] Access Hospital Physician GroupComment on above:Performed By: #### CMP, CBC #### [place] [address] USALymphocytes (Bld) [#/Vol]4.0 10*3/uLNormal1.00-4.8The [facility] Access Hospital Physician GroupComment on above:Performed By: #### CMP, CBC #### [place] [address] USALymphocytes/100 WBC (Bld)41.5 %Normal.The [facility] Hospital Physician GroupComment on above:Performed By: #### CMP, CBC #### [place] [address] USAMCH (RBC) [Entitic mass]30.5 kiCfnuut60.7-34.3The [facility] Access Hospital Physician GroupComment on above:Performed By: #### CMP, CBC #### [place] [address] USAMCV (RBC) [Entitic vol]89.7 xIAijbyr02-665Wjd [facility] Hospital Physician GroupComment on above:Performed By: #### CMP, CBC #### [place] [address] USAMean Corpuscular HGB Conc34.0 g/iAIbmahs00.0-35.0The [facility] Hospital Physician GroupComment on above:Performed By: #### CMP, CBC #### [place] [address] USAMonocytes (Bld) [#/Vol]0.5 10*3/uLNormal0.0-0.8The [facility] Access Hospital Physician GroupComment on above:Performed By: #### CMP, CBC #### [address] [place] [address] USAMonocytes/100 WBC (Bld)19.83 %Normal0.00-20.00The [facility] Access Hospital Physician GroupComment on above:Performed By: #### CMP, CBC #### [facility] [address] [place] [address] USAMonocytes/100 WBC (Bld)5.2 %Normal.The [facility] Hospital Physician GroupComment on above:Performed By: #### CMP, CBC #### [facility] [address] [place] [address] USANeutrophils (Bld) [#/Vol]4.9 10*3/uLNormal1.8-7.7The [facility] Access Hospital Physician GroupComment on above:Performed By: #### CMP, CBC #### [place] [address] USANeutrophils/100 WBC (Bld)51.1 %Normal.The [facility] Hospital Physician GroupComment on above:Performed By: #### CMP, CBC #### [place] [address] USANRBC%0.1 /100{WBC}Normal0-0.5The [facility] Physician Group Comment on above:Performed By: #### CMP, CBC #### [place] [address] USAPlatelet mean volume (Bld) [Entitic vol]8.3 fLNormal 6.3-10.7The [facility] Access Hospital Physician GroupComment on above:Performed By: #### CMP, CBC #### [facility] [address] [place] [address] USAPlatelets (Bld) [#/Vol]324 10*3/eJXjndok864-032Phz [facility] Physician GroupComment on above:Performed By: #### CMP, CBC #### [place] [address] USARBC (Bld) [#/Vol]4.32 10*6/uLNormal3.60-5.00The [facility] Physician GroupComment on above:Performed By: #### CMP, CBC #### [facility] [address] [place] [address] USAWBC (Bld) [#/Vol]9.7 10*3/uLNormal3.8-11.6The [facility] Hospital Physician GroupComment on above:Performed By: #### CMP, CBC #### [place] [address] USAComprehensive Metabolic Panelon 22-25-1371Gqntcxv [Mass/Vol]3.9 g/dLNormal3.5-5.7The [facility] Hospital Physician GroupComment on above: Performed By: #### CMP, CBC #### [place] [address] USAAlbumin/Globulin [Mass ratio]1.1 {ratio}NormalThe [facility] Access Hospital Physician GroupComment on above:Performed By: #### CMP, CBC #### [place] [address] USAALP [Catalytic activity/Vol]71 U/LThggvn34-801Vvj [facility] Physician GroupComment on above:Performed By: #### CMP, CBC #### [place] [address] USAALT [Catalytic activity/Vol]9 U/LNormal7-52The [facility] Hospital Physician GroupComment on above:Performed By: #### CMP, CBC #### [place] [address] USAAnion gap [Moles/Vol]10.2 mmol/LNormal6.0-15.0The [facility] Physician GroupComment on above:Performed By: #### CMP, CBC #### [place] [address] USAAST [Catalytic activity/Vol]10 U/WFvf23-65Qmi [facility] Physician GroupComment on above:Performed By: #### CMP, CBC #### [place] [address] USABilirubin [Mass/Vol]0.4 mg/dLNormal0.3-1.0The [facility] Physician GroupComment on above:Performed By: #### CMP, CBC #### [place] [address] USACalcium [Mass/Vol]8.7 mg/dLNormal8.6-10.3The [facility] Physician GroupComment on above:Performed By: #### CMP, CBC #### [place] [address] USAChloride [Moles/Vol]107 mmol/KBsttvh65-686Win [facility] Physician GroupComment on above:Performed By: #### CMP, CBC #### [place] [address] USACO2 [Moles/Vol]25.1 mmol/RKvopoo65.0-31.0The [facility] Physician GroupComment on above:Performed By: #### CMP, CBC #### [place] [address] USACreatinine [Mass/Vol]0.60 mg/dLNormal0.60-1.20The [facility] Physician GroupComment on above:Performed By: #### CMP, CBC #### [place] [address] USACreatinine Clr Calc Krqfmtrl250.08NoSwain Community Hospital Physician GroupComment on above:Result Comment: PERFORMED BY: [place] [address] PATHOLOGIST DIAMOND DIE DRILLER RICARDO ANDRE M.D.Performed By: #### CMP, CBC #### [place] [address] USAGFR/1.73 sq M.predicted MDRD (S/P/Bld) [Vol rate/Area] mL/min/{1.73_m2}NormalThe [facility] Access Hospital Physician GroupComment on above:Performed By: #### CMP, CBC #### [place] [address] USAGlobulin (S) [Mass/Vol]3.4 g/dLNoSwain Community Hospital Physician GroupComment on above:Performed By: #### CMP, CBC #### [place] [address] USAGlucose [Mass/Vol]91 mg/gYQzgypc04-523Odr [facility] Physician GroupComment on above:Result Comment: Random Glucose Reference Range is dependent on time and content of last meal. Glucose of more than 200 mg/dL in a nonstressed, ambulatory subject supports the diagnosis of Diabetes Mellitus. ADA recommended reference rangePerformed By: #### CMP, CBC #### [facility] [address] [place] [address] USAPotassium [Moles/Vol]3.3 mmol/LLow3.5-5.1The [facility] Hospital Physician GroupComment on above:Performed By: #### CMP, CBC #### [facility] [address] [place] [address] USAProtein [Mass/Vol]7.3 g/dLNormal6.4-8.9The [facility] Hospital Physician GroupComment on above:Performed By: #### CMP, CBC #### [facility] [address] [place] [address] USASodium [Moles/Vol]139 mmol/FEhzrwk200-786Pnk [facility] Physician GroupComment on above:Performed By: #### CMP, CBC #### [facility] [address] [place] [address] USAUrea nitrogen [Mass/Vol]6 mg/dLLow7-25The [facility] Hospital Physician GroupComment on above:Performed By: #### CMP, CBC #### [facility] [address] [place] [address] USACreatinine [Mass/volume] in Serum or PlasmaOrdered By: Miquel Andrews on 11-50-6574Kxmarvwmwo [Mass/Vol]Creatinine [Mass/volume] in Serum or Plasma0.60-1.20[facility] HospitalDipstick and Microscopicon 00-68-4692Kguvzfiklf (U)ClearNormalClearThe Critical Access Hospital Physician GroupComment on above:Order Comment: Name Collection Type:: VoidedPerformed By: #### ADDONUAPLUS #### [facility] [address] [place] [address] USABacteria,UrineRareNormalNone SeenThe Critical Access Hospital Physician GroupComment on above:Order Comment: Name Collection Type:: VoidedPerformed By: #### ADDONUAPLUS #### [place] [address] USABilirubin,UrineNegativeNormalNegativeBaycare Alliant Hospital Physician GroupComment on above:Order Comment: Name Collection Type:: Voided Performed By: #### ADDONUAPLUS #### [place] [id number] USAColor (U)YellowNormalYellowBaycare Alliant Hospital Physician Group Comment on above:Order Comment: Name Collection Type:: VoidedPerformed By: #### ADDONUAPLUS #### [place] [address] USAGlucose Ql (U)>=[facility] Comment on above:Order Comment: Name Collection Type:: VoidedPerformed By: #### ADDONUAPLUS #### [place] [address] USAHyaline Casts,UrineNoneNormal0-8The [facility] Hospital Physician GroupComment on above:Order Comment: Name Collection Type:: VoidedPerformed By: #### ADDONUAPLUS #### [place] [address] USAKetones Ql (U)NegativeNormalNegativeBaycare Alliant Hospital Physician GroupComment on above:Order Comment: Name Collection Type:: Voided Performed By: #### ADDONUAPLUS #### [place] [address] USALeukocyte esterase Test strip Ql (U)NegativeNormalNegative [facility] Physician GroupComment on above:Order Comment: Name Collection Type:: VoidedPerformed By: #### ADDONUAPLUS #### [place] [address] USAMucus,UrineRareNormalBaycare Alliant Hospital Physician GroupComment on above:Order Comment: Name Collection Type:: VoidedResult Comment: PERFORMED BY: [place] [address] PATHOLOGIST DIAMOND DIE DRILLER RICARDO ANDRE M.D.Performed By: #### ADDONUAPLUS #### [place] [id number] USANitrite,UrineNegativeNormalNegativeThe [facility] Access Hospital Physician GroupComment on above:Order Comment: Name Collection Type:: VoidedPerformed By: #### ADDONUAPLUS #### [place] [address] USAOccult Blood,UrineTraceHighNegativeThe Critical Access Hospital Physician GroupComment on above:Order Comment: Name Collection Type:: VoidedResult Comment: PERFORMED BY: [place] [address] PATHOLOGIST DIAMOND DIE DRILLER RICARDO ANDRE M.D.Performed By: #### ADDONUAPLUS #### [place] [address] USApH (U)6.0 [pH]Normal5.0-9.0The [facility]ician Group Comment on above:Order Comment: Name Collection Type:: VoidedPerformed By: #### ADDONUAPLUS #### [place] [address] USAProtein,UrineTraceHighNegativeThe [facility] Hospital Physician [facility] Stone CountyComment on above:Order Comment: Name Collection Type:: VoidedPerformed By: #### ADDONUAPLUS #### [place] [address] USARBC,Wbugb2-4Mwid7-4Qwy [facility] Physician GroupComment on above:Order Comment: Name Collection Type:: VoidedPerformed By: #### ADDONUAPLUS #### [place] [address] USASpecificy Leslie,Urine1.523Wyck4.001-1.030The [facility] Hospital Physician GroupComment on above:Order Comment: Name Collection Type:: Voided Performed By: #### ADDONUAPLUS #### [place] [address] USASquamous Epithelial Cell,Hndyb9-6Ahjg6-9Hbu [facility] Physician GroupComment on above:Order Comment: Name Collection Type:: Voided Performed By: #### ADDONUAPLUS #### [facility] [address] [place] [id number] USAUrobilinogen,UrineNormalNormalNormalThe [facility] Access Hospital Physician GroupComment on above:Order Comment: Name Collection Type:: Voided Performed By: #### ADDONUAPLUS #### [facility] [address] [place] [id number] USAWBC,Ejrct4-1Grecqm4-5Vyi [facility] Physician GroupComment on above:Order Comment: Name Collection Type:: VoidedPerformed By: #### ADDONUAPLUS #### [facility] [address] [place] [address] USAEosinophils Auto (Bld) [#/Vol]Ordered By: Miquel Andrews on 86-01-9199Ukmibbvkuaj (Bld) [#/Vol]Automated eosinophil count0.0-0.45[facility] HospitalEosinophils/100 WBC Auto (Bld)Ordered By: Miquel Andrews on 20-04-4731Gkqbkrhkwqs/100 WBC (Bld)Automated eosinophil %.[facility] HospitalEpithelial cells.squamous [#/area] in Urine sediment by Automated countOrdered By: Miquel Andrews on 94-07-2003Aifoqhlskx cells.squamous Auto (Urine sed) [#/Area]Epithelial cells.squamous [#/area] in Urine sediment by Automated countHigh0-2FGlenbeigh HospitalErythrocyte distribution width Auto (RBC) [Ratio]Ordered By: Miquel Andrews on 85-00-4977Dflwypxpcdm distribution width (RBC) [Ratio]Erythrocyte distribution width [Ratio] by Automated count 11.9-15.3FGlenbeigh HospitalErythrocytes [#/area] in Urine sediment by Automated countOrdered By: Miquel Andrews on 54-37-6086JOH Auto (Urine sed) [#/Area]Erythrocytes [#/area] in Urine sediment by Automated countHigh0-4 [facility] HospitalGlobulin Calc (S) [Mass/Vol]Ordered By: Miquel Andrews on 29-39-1714Vugkwucr (S) [Mass/Vol]Serum globulin measurement by calculation (mass/volume)[facility] HospitalGlucose [Mass/volume] in Serum or PlasmaOrdered By: Miquel Andrews on 00-27-4595Gnkaszl [Mass/Vol] Glucose [Mass/volume] in Serum or Oxbauh54-768XvczelgbuMercy Health Kings Mills Hospital Comment on above:ADA recommended reference rangeRandom Glucose Reference Range is dependent on time and content of last meal. Glucose of more than 200 mg/dL in a nonstressed, ambulatory subject supports the diagnosisof Diabetes Mellitus. Glucose [Mass/volume] in Urine by Test stripOrdered By: Miquel Andrews on 03-32-2461Ybviddh Test strip (U) [Mass/Vol]Glucose [Mass/volume] in Urine by Test stripHighNormalMercy Health Kings Mills HospitalHematocrit Auto (Bld) [Volume fraction]Ordered By: Miquel Andrews on 54-45-3989Xomekxugpr (Bld) [Volume fraction]Hematocrit [Volume Fraction] of Blood by Automated count34.0-46.4 [facility] HospitalHemoglobin Test strip Ql (U)Ordered By: Miquel Andrews on 49-52-7235Kfhmhunpbn Ql (U)Hemoglobin [Presence] in Urine by Test strip HighNegTriHealth Bethesda North HospitalHemoglobin [Mass/volume] in Blood Ordered By: Miquel Andrews on 38-01-6519Mphvbaftxk (Bld) [Mass/Vol]Hemoglobin [Mass/volume] in Blood11.8-15.4FGlenbeigh HospitalHyaline casts [#/area] in Urine sediment by Automated countOrdered By: Miquel Andrews on 33-77-1567Ybaiiji casts Auto (Urine sed) [#/Area]Hyaline casts [#/area] in Urine sediment by Automated count0-8[facility] HospitalKetones Test strip Ql (U)Ordered By: Miquel Andrews on 21-60-1087Oljahfh Ql (U)Ketones [Presence] in Urine by Test stripNegTriHealth Bethesda North Hospital Leukocyte esterase [Presence] in Urine by Test stripOrdered By: Miquel Andrews on 21-49-9058Aqatabmhg esterase Test strip Ql (U)Leukocyte esterase [Presence] in Urine by Test stripNegTriHealth Bethesda North HospitalLeukocytes [#/area] in Urine sediment by Automated countOrdered By: Miquel Andrews on 34-01-1966IEM Auto (Urine sed) [#/Area]Leukocytes [#/area] in Urine sediment by Automated count0-4FGlenbeigh HospitalLeukocytes [#/volume] corrected for nucleated erythrocytes in Blood by Automated counOrdered By: Miquel Andrews on 06-37-7843RRC corrected for nucl RBC Auto (Bld) [#/Vol]Leukocytes [#/volume] corrected for nucleated erythrocytes in Blood by Automated coun3.8-11.6FGlenbeigh HospitalLymphocytes Auto (Bld) [#/Vol]Ordered By: Miquel Andrews on 01-15-6514Wyzxwegamke (Bld) [#/Vol]Lymphocytes [#/volume] in Blood by Automated count1.00-4.8[facility] HospitalLymphocytes/100 WBC Auto (Bld)Ordered By: Miquel Andrews on 46-45-4951Omqxsqdnjwh/100 WBC (Bld) Lymphocytes/100 leukocytes in Blood by Automated count.[facility] HospitalMCH Auto (RBC) [Entitic mass]Ordered By: Miquel Andrews on 33-71-9089NFB (RBC) [Entitic mass]MCH [Entitic mass] by Automated count24.7-34.3 [facility] HospitalMCHC Auto (RBC) [Mass/Vol]Ordered By: Miquel Andrews on 76-08-7226STAE (RBC) [Mass/Vol]MCHC [Mass/volume] by Automated count 32.0-35.0[facility] HospitalMCV Auto (RBC) [Entitic vol]Ordered By: Miquel Andrews on 20-05-2320OIH (RBC) [Entitic vol]MCV [Entitic volume] by Automated dbram79-211ClqsmqvhfMercy Health Kings Mills HospitalMonocyte distribution width [Entitic volume] in Blood by AutomatedOrdered By: Miquel Andrews on 56-02-7014Dthvtenl distribution width Auto (Bld) [Entitic vol]Monocyte distribution width [Entitic volume] in Blood by Automated0.00-20.00[facility] HospitalMonocytes Auto (Bld) [#/Vol]Ordered By: Miquel Andrews on 15-53-0517Gwpmkyqnm (Bld) [#/Vol]Automated blood monocyte count0.0-0.8[facility] HospitalMonocytes/100 WBC Auto (Bld)Ordered By: Miquel Andrews on 64-86-8148Diigxiwyo/100 WBC (Bld)Automated monocyte %.[facility] HospitalMucus [Presence] in Urine by AutomatedOrdered By: Miquel Andrews on 44-51-3347Tslwz Auto Ql (U)Mucus [Presence] in Urine by AutomatedMercy Health Kings Mills HospitalNeutrophils Auto (Bld) [#/Vol]Ordered By: Miquel Andrews on 66-26-3623Bbejmzepezg (Bld) [#/Vol]Neutrophils [#/volume] in Blood by Automated count1.8-7.7FGlenbeigh HospitalNeutrophils/100 WBC Auto (Bld) Ordered By: Miquel Andrews on 72-03-8367Hwmuwgwahfj/100 WBC (Bld)Automated neutrophil %.[facility] HospitalNitrite Test strip Ql (U)Ordered By: Miquel Andrews on 88-33-6995Qjwldtf Ql (U)Nitrite [Presence] in Urine by Test stripNegativeMercy Health Kings Mills HospitalNo Panel InformationOrdered By: Miquel Andrews on 74-57-5986Nuqknfyaz GFR (CKD-EPI)> 60.0 mL/MinMercy Health Kings Mills HospitalPharmacy Creatinine Clearance (Wgru862.08[facility] HospitalNucleated erythrocytes [Presence] in Blood by Automated count Ordered By: Miquel Andrews on 62-96-9861Fdtkzcudp RBC Auto Ql (Bld)Nucleated erythrocytes [Presence] in Blood by Automated count0-0.5FGlenbeigh HospitalPlatelet mean volume Auto (Bld) [Entitic vol]Ordered By: Miquel Andrews on 43-98-2217Rwrtfesp mean volume (Bld) [Entitic vol]Platelet mean volume [Entitic volume] in Blood by Automated count6.3-10.7FGlenbeigh HospitalPlatelets Auto (Bld) [#/Vol]Ordered By: Miquel Andrews on 02-10-2025 Platelets (Bld) [#/Vol]Platelets [#/volume] in Blood by Automated kqsyk252-725 [facility] HospitalPotassium [Moles/volume] in Serum or Plasma Ordered By: Miquel Andrews on 56-90-0756Jornisfpg [Moles/Vol]Potassium [Moles/volume] in Serum or PlasmaLow3.5-5.1FGlenbeigh Hospital Protein Test strip (U) [Mass/Vol]Ordered By: Miquel Andrews on 56-11-5630Oslttwi (U) [Mass/Vol]Protein [Mass/volume] in Urine by Test stripHighNegativeMercy Health Kings Mills HospitalProtein [Mass/volume] in Serum or PlasmaOrdered By: Miquel Andrews on 27-24-5278Tcqcuxm [Mass/Vol]Protein [Mass/volume] in Serum or Plasma6.4-8.9[facility] HospitalRBC Auto (Bld) [#/Vol]Ordered By: Miquel Andrews on 02-35-2224SES (Bld) [#/Vol]Erythrocytes [#/volume] in Blood by Automated count3.60-5.00[facility] Hospitalerum or plasma albumin/globulin mass ratioOrdered By: Miquel Andrews on 02-10-2025 Albumin/Globulin [Mass ratio]Serum or plasma albumin/globulin mass ratio [facility] Hospitalerum or plasma anion gap determinationOrdered By: Miquel Anderws on 89-54-2730Jdatu gap [Moles/Vol]Serum or plasma anion gap determination6.0-15.0[facility] Hospitalodium [Moles/volume] in Serum or PlasmaOrdered By: Miquel Andrews 28-45-7990Qjljhl [Moles/Vol]Sodium [Moles/volume] in Serum or Qmvrbw183-482JgcphdvxgMercy Health Kings Mills Hospital Specific gravity Test strip (U) [Rel density]Ordered By: Miquel Andrews on 03-19-3514Uwusitez gravity (U) [Rel density]Specific gravity of Urine by Test stripHigh1.001-1.030[facility] HospitalUrea nitrogen [Mass/volume] in Serum or PlasmaOrdered By: Miquel Andrews 17-38-5665Ratj nitrogen [Mass/Vol]Urea nitrogen [Mass/volume] in Serum or PlasmaLow7-25[facility] HospitalUrobilinogen Test strip (U) [Mass/Vol]Ordered By: Miquel Andrews on 13-15-1435Rwctmtnrjgmi (U) [Mass/Vol]Urobilinogen [Mass/volume] in Urine by Test stripNormalMercy Health Kings Mills HospitalWBC Auto (Bld) [#/Vol] Ordered By: Miquel Andrews on 65-25-7114VEB (Bld) [#/Vol]Leukocytes [#/volume] in Blood by Automated count3.8-11.6FGlenbeigh HospitalpH Test strip (U)Ordered By: Miquel Andrews on 59-77-1958yH (U)pH of Urine by Test strip5.0-9.0 [facility] HospitalCNOVon 96-84-5483NKPYMwrccp Visit (LOORRM) GARY VIGIL ([id number]) 1985 F Date Time Provider Department 01/04/25 [...] 50 mg by mouth daily at bedtime. WiseBanyan ULTRA TEST test strip twice daily. TEST [...] Hyperkeratosis plantar lateral LE (more content not included)...NormalMercy Health St. [facility] 92-39-8569XASIZnlxrg Visit (ALEJANDRAORRM) GARY VIGIL ([id number]) 1985 F Date Time Provider Department 12/04/24 [...] CD [facility] PCP: No primary care provider on [...] 50 mg by mouth daily at bedtime. [place] Self Representation Document PreparationTOUCH ULTRA TEST test strip twice daily. TEST [...] tenderness to palpation Hy (more content not included)...[facility] HospitalXR foot RT min 3V*on 60-70-2871DU foot RT min 3V*[facility] [place] [address] XRay Report Signed Patient: Gary Vigil MR#: [id number] : 1985 Acct:[id number] Age/Sex: 39 / F ADM Date: 11/22/24 Loc: ER Room: Type: [facility] ER Attending Dr: Copies to: Be [...] Michael Montalvo M.D.11/22/2024 1:56 PM Dictation Location: [facility]-20 Transcribed By: [facility] 11/22/24 1356 Dictated By: Michael Montalvo DO 11/22/24 1353 Signed By: 11/22/[address] [place] [place] [address] Physician GroupCNCO 17-15-5937AUYIEvsoxj Text [facility] HospitalCNOVon 81-65-3188UROSJydryb Visit (LOORRM) GARY VIGIL ([id number]) 1985 F Date Time Provider Department 10/05/24 [...] purpura, telangiectasia Musculoskeletal e (more content not included)...[facility] X-ray reportOrdered By: Evaristo Easley on 90-70-7771Ffiwk reportFIRCLEVELAND CLINIC [facility] Main [address] [address] XRay Report Signed Patient: Gary Vigil MR#: [id number] : 1985 Acct:[id number] Age/Sex: 39 / F ADM Date: 4 Loc: ER Room: Type: [facility] ER Attending Dr: Copies to: Mk [...] Evaristo Easley M.D.10/04/2024 11:15 AM Dictation Location: [place] [address] Transcribed By: [facility] 10/04/241114 Dictated By: Evaristo Easley II, MD 10/04/241113 Signed By: 10/04/24 111 [facility] Work Phone: xr chest 1V portableon 29-19-9190JC chest 1V portable [facility] [place] [address] XRay Report Signed Patient: Gary Vigil MR#: [id number] : 1985 Acct:[id number] Age/Sex: 39 / F ADM Date: 10/03/24 Loc: ER Room: Type: [facility] ER Attending Dr: Copies to: Mk [...] Evaristo Easley M.D.10/04/2024 11:15 AM Dictation Location: [place] [address] Transcribed By: [facility] 10/04/24 1115 Dictated By: Evaristo Easley II, MD 10/04/24 1114 Signed By: 10/04/24 1115[facility] Physician GroupAlanine aminotransferase [Enzymatic activity/volume] in Serum or PlasmaOrdered By: Mk Parker on 99-15-3626INA [Catalytic activity/Vol]Alanine aminotransferase [Enzymatic activity/volume] in Serum or Plasma7-52[facility] HospitalAlbumin [Mass/volume] in Serum or Plasma by Bromocresol green (BCG) dye binding metho Ordered By: Mk Parker on 27-96-3721Qeqdpfd BCG dye [Mass/Vol]Albumin [Mass/volume] in Serum or Plasma by Bromocresol green (BCG) dye binding metho 3.5-5.7FGlenbeigh HospitalAlkaline phosphatase [Enzymatic activity/volume] in Serum or PlasmaOrdered By: Mk Parker on 76-18-3452IVW [Catalytic activity/Vol]Alkaline phosphatase [Enzymatic activity/volume] in Serum or Oeehjg15-990BjuefdgaaMercy Health Kings Mills HospitalAspartate aminotransferase [Enzymatic activity/volume] in Serum or PlasmaOrdered By: Mk Parker on 77-51-9787TJM [Catalytic activity/Vol]Aspartate aminotransferase [Enzymatic activity/volume] in Serum or PukvmdFkm99-02NjvzplmhaMercy Health Kings Mills HospitalB- Type Natriuretic Peptideon 23-83-5268Fikinwqejer peptide B (Bld) [Mass/Vol]10.0 pg/mLNormal5-100The [facility] Hospital Physician GroupComment on above:Result Comment: PERFORMED BY: [place] [address] PATHOLOGIST DIAMOND DIE DRILLER ANGELA NORTON M.D.Performed By: #### CMP, CBC #### [place] [address] USABasic Metabolic Panelon 38-42-9926Jehdk gap [Moles/Vol] 12.6 mmol/LNormal6.0-15.0The [facility] Physician GroupComment on above:Performed By: #### CMP, CBC #### [place] [address] USACalcium [Mass/Vol]9.3 mg/dLNormal8.6-10.3The [facility] Hospital Physician GroupComment on above:Performed By: #### CMP, CBC #### [place] [address] USAChloride [Moles/Vol]106 mmol/SRkitcg81-834Uxd [facility] Physician GroupComment on above:Performed By: #### CMP, CBC #### [facility] [address] [place] [address] USACO2 [Moles/Vol]22.7 mmol/ZUohfxo04.0-31.0The [facility] Physician GroupComment on above:Performed By: #### CMP, CBC #### [facility] [address] [place] [address] USACreatinine [Mass/Vol]0.50 mg/dLLow0.60-1.20The [facility] Hospital Physician GroupComment on above:Performed By: #### CMP, CBC #### [facility] [address] [place] [address] USACreatinine Clr Calc Ttdteatn610.64NormalThe Critical Access Hospital Physician GroupComment on above:Result Comment: PERFORMED BY: [place] [address] PATHOLOGIST DIAMOND DIE DRILLER ANGELA NORTON M.D.Performed By: #### CMP, CBC #### [place] [address] USAGFR/1.73 sq M.predicted MDRD (S/P/Bld) [Vol rate/Area] mL/min/{1.73_m2}NormalThe Critical Access Hospital Physician GroupComment on above:Performed By: #### CMP, CBC #### [place] [address] USAGlucose [Mass/Vol]133 mg/gQMwav77-427Ygr [facility] Physician GroupComment on above:Result Comment: Random Glucose Reference Range is dependent on time and content of last meal. Glucose of more than 200 mg/dL in a nonstressed, ambulatory subject supports the diagnosis of Diabetes Mellitus. ADA recommended reference rangePerformed By: #### CMP, CBC #### [place] [address] USAPotassium [Moles/Vol]3.3 mmol/LLow3.5-5.1The [facility] Hospital Physician GroupComment on above:Performed By: #### CMP, CBC #### [place] [address] USASodium [Moles/Vol]138 mmol/XMxjluo438-605Osz [facility] Physician GroupComment on above:Performed By: #### CMP, CBC #### [place] [address] USAUrea nitrogen [Mass/Vol]12 mg/dLNormal7-25The [facility] Hospital Physician GroupComment on above:Performed By: #### CMP, CBC #### [place] [address] USABasophils Auto (Bld) [#/Vol]Ordered By: Mk Parker on 25-51-6878Rdithcgyf (Bld) [#/Vol]Automated basophil count0.0-0.2FGlenbeigh HospitalBasophils/100 WBC Auto (Bld)Ordered By: Mk Parker on 33-25-2517Mislozwou/100 WBC (Bld)Automated basophil %.[facility] HospitalBilirubin.direct [Mass/volume] in Serum or PlasmaOrdered By: Mk Parker on 98-24-6457Vxgsigyau.direct [Mass/Vol]Bilirubin.direct [Mass/volume] in Serum or PlasmaLow0.03-0.18FGlenbeigh HospitalComment on above:If the DBIL is less than 0.1, IBIL is not able to becalculated.Bilirubin.total [Mass/volume] in Serum or PlasmaOrdered By: Mk Parker on 68-02-7342Iwzpvuszh [Mass/Vol]Bilirubin.total [Mass/volume] in Serum or PlasmaLow0.3-1.0[facility] HospitalCalcium [Mass/volume] in Serum or PlasmaOrdered By: Mk Parker on 52-18-4522Tyrahpe [Mass/Vol]Calcium [Mass/volume] in Serum or Plasma 8.6-10.3FGlenbeigh HospitalCarbon dioxide, total [Moles/volume] in Serum or PlasmaOrdered By: Mk Parker on 87-53-6385LM3 [Moles/Vol]Carbon dioxide, total [Moles/volume] in Serum or Cjebby00.0-31.0[facility] HospitalChloride [Moles/volume] in Serum or PlasmaOrdered By: Mk Parker on 82-90-0467Nghzjhoe [Moles/Vol]Chloride [Moles/volume] in Serum or Plasma 98-107[facility] HospitalComplete Blood Count Auto Diffon 06-46-4095Otadtbvbh (Bld) [#/Vol]0.1 10*3/uLNormal0.0-0.2The [facility] Hospital Physician GroupComment on above:Result Comment: PERFORMED BY: [place] [address] PATHOLOGIST DIAMOND DIE DRILLER ANGELA NORTON M.D.Performed By: #### CMP, CBC #### [place] [address] USABasophils/100 WBC (Bld)1.3 %Normal.The [facility] Access Hospital Physician GroupComment on above:Performed By: #### CMP, CBC #### [place] [address] USAEosinophils (Bld) [#/Vol]0.2 10*3/uLNormal0.0-0.45The [facility] Access Hospital Physician GroupComment on above:Performed By: #### CMP, CBC #### [place] [address] USAEosinophils/100 WBC (Bld)1.8 %Normal.The [facility] Hospital Physician GroupComment on above:Performed By: #### CMP, CBC #### [place] [address] USAErythrocyte distribution width (RBC) [Ratio]13.6 %Normal 11.9-15.3The [facility] Hospital Physician GroupComment on above:Performed By: #### CMP, CBC #### [place] [address] USAHematocrit (Bld) [Volume fraction]37.1 %Tcxxou74.0-46.4The [facility] Access Hospital Physician GroupComment on above:Performed By: #### CMP, CBC #### [place] [address] USAHemoglobin (Bld) [Mass/Vol]12.7 g/ySDoqgyb40.8-15.4The [facility] Hospital Physician GroupComment on above:Performed By: #### CMP, CBC #### [place] [address] USALymphocytes (Bld) [#/Vol]5.7 10*3/uLHigh1.00-4.8The [facility] Access Hospital Physician GroupComment on above:Performed By: #### CMP, CBC #### [place] [address] USALymphocytes/100 WBC (Bld)47.3 %Normal.The [facility] Hospital Physician GroupComment on above:Performed By: #### CMP, CBC #### [place] [id number] USAMCH (RBC) [Entitic mass]30.8 owAgaots96.7-34.3The [facility] Access Hospital Physician GroupComment on above:Performed By: #### CMP, CBC #### [place] [address] USAV (RBC) [Entitic vol]89.9 uWDkuaxa86-953Uit [facility] Hospital Physician GroupComment on above:Performed By: #### CMP, CBC #### [place] [address] USAMean Corpuscular HGB Conc34.2 g/dKHteesr84.0-35.0The [facility] Access Hospital Physician GroupComment on above:Performed By: #### CMP, CBC #### [place] [address] USAMonocytes (Bld) [#/Vol]0.5 10*3/uLNormal0.0-0.8The [facility] Access Hospital Physician GroupComment on above:Performed By: #### CMP, CBC #### [place] [address] USAMonocytes/100 WBC (Bld)18.55 %Normal0.00-20.00The [facility] Access Hospital Physician GroupComment on above:Performed By: #### CMP, CBC #### [place] [address] USAMonocytes/100 WBC (Bld)4.5 %Normal.The [facility] Access Hospital Physician GroupComment on above:Performed By: #### CMP, CBC #### [place] [address] USANeutrophils (Bld) [#/Vol]5.4 10*3/uLNormal1.8-7.7The [facility] Access Hospital Physician GroupComment on above:Performed By: #### CMP, CBC #### [place] [address] USANeutrophils/100 WBC (Bld)45.1 %Normal.The [facility] Access Hospital Physician GroupComment on above:Performed By: #### CMP, CBC #### [facility] [address] [place] [address] USANRBC%0.1 /100{WBC}Normal0-0.5The [facility]ician Group Comment on above:Performed By: #### CMP, CBC #### [facility] [address] [place] [address] USAPlatelet mean volume (Bld) [Entitic vol]8.3 fLNormal 6.3-10.7The Critical Access Hospital Physician GroupComment on above:Performed By: #### CMP, CBC #### [facility] [address] [place] [address] USAPlatelets (Bld) [#/Vol]348 10*3/sNAunewa909-761Vga Critical Access Hospital Physician GroupComment on above:Performed By: #### CMP, CBC #### [facility] [address] [place] [address] USARBC (Bld) [#/Vol]4.12 10*6/uLNormal3.60-5.00The Critical Access Hospital Physician GroupComment on above:Performed By: #### CMP, CBC #### [facility] [address] [place] [address] USAWBC (Bld) [#/Vol]12.0 10*3/uLHigh3.8-11.6The Critical Access Hospital Physician GroupComment on above:Performed By: #### CMP, CBC #### [facility] [address] [place] [address] USACreatine Kinaseon 90-59-5029RO [Catalytic activity/Vol]79 U/USeiiye09-497Uzc Critical Access Hospital Physician GroupComment on above:Performed By: #### CMP, CBC #### [facility] [address] [place] [address] USACreatine kinase [Enzymatic activity/volume] in Serum or PlasmaOrdered By: Mk Parker on 31-99-5738JQ [Catalytic activity/Vol]Creatine kinase [Enzymatic activity/volume] in Serum or Utuhte79-823MtgwxcxtoMercy Health Kings Mills HospitalCreatinine [Mass/volume] in Serum or PlasmaOrdered By: Mk Parker on 17-53-6047Usopwhiwkd [Mass/Vol]Creatinine [Mass/volume] in Serum or Plasma Low0.60-1.20[facility] HospitalECG 12 lead ECGon 90-30-9053TAS 12 lead ECGPARKVIEW HEALTH [facility] [address] [address] Electrocardiograph Report Signed Patient: Gary Vigil MR#: [id number] : 1985 Acct:[id number] Age/Sex: 39 / F ADM Date: 10/03/24 Loc: ER Room: Type: [facility] ER Attending Dr: Ordering Provider: Mk [...] Signed By Joe Meek MD 1 12/05/[address] [place] [address] Physician GroupEosinophils Auto (Bld) [#/Vol] Ordered By: Mk Parker on 04-71-7929Albkwqueasa (Bld) [#/Vol]Automated eosinophil count0.0-0.45[facility] HospitalEosinophils/100 WBC Auto (Bld)Ordered By: Mk Parker on 36-33-9344Oyyknafksfd/100 WBC (Bld) Automated eosinophil %.[facility] HospitalErythrocyte distribution width Auto (RBC) [Ratio]Ordered By: Mk Parker on 80-84-6633Iicnvxxeajb distribution width (RBC) [Ratio]Erythrocyte distribution width [Ratio] by Automated count11.9-15.3FGlenbeigh HospitalGlobulin Calc (S) [Mass/Vol]Ordered By: Mk Parker on 22-38-2152Swdlpnac (S) [Mass/Vol]Serum globulin measurement by calculation (mass/volume)[facility] HospitalGlucose [Mass/volume] in Serum or PlasmaOrdered By: Mk Parker on 94-43-1835Vtmgwku [Mass/Vol]Glucose [Mass/volume] in Serum or EzeaboEjyt73-815 [facility] HospitalComment on above:ADA recommended reference rangeRandom Glucose Reference Range is dependent on time and content of last meal. Glucose of more than 200 mg/dL in a nonstressed, ambulatory subject supports the diagnosisof Diabetes Mellitus.Hematocrit Auto (Bld) [Volume fraction]Ordered By: Mk Parker on 95-00-3091Uokholkbgq (Bld) [Volume fraction] Hematocrit [Volume Fraction] of Blood by Automated count34.0-46.4FGlenbeigh HospitalHemoglobin [Mass/volume] in BloodOrdered By: Mk Parker on 08-25-5925Qbanvwgzdc (Bld) [Mass/Vol]Hemoglobin [Mass/volume] in Blood 11.8-15.4FGlenbeigh HospitalHepatic Panelon 52-16-9051Qyuqtck [Mass/Vol]4.0 g/dLNormal3.5-5.7The Critical Access Hospital Physician GroupComment on above: Performed By: #### CMP, CBC #### [facility] [address] [place] [address] USAAlbumin/Globulin [Mass ratio]1.3 {ratio}NormalThe Critical Access Hospital Physician GroupComment on above:Performed By: #### CMP, CBC #### [facility] [address] [place] [address] USAALP [Catalytic activity/Vol]69 U/AHqpyeo34-208Dhg Critical Access Hospital Physician GroupComment on above:Performed By: #### CMP, CBC #### [facility] [address] [place] [address] USAALT [Catalytic activity/Vol]10 U/LNormal7-52The Critical Access Hospital Physician GroupComment on above:Performed By: #### CMP, CBC #### [facility] [address] [place] [id number] USAAST [Catalytic activity/Vol]11 U/HSsb25-71Kmz Critical Access Hospital Physician GroupComment on above:Performed By: #### CMP, CBC #### [place] [address] USABilirubin [Mass/Vol]0.2 mg/dLLow0.3-1.0The Critical Access Hospital Physician GroupComment on above:Performed By: #### CMP, CBC #### [place] [address] USABilirubin,Indirect0.2 mg/dLNormalThe Critical Access Hospital Physician [facility] CountyComment on above:Performed By: #### CMP, CBC #### [place] [address] USABilirubin.indirect [Mass/Vol]0.00 mg/dLLow0.03-0.18The [facility] Physician [facility] Stone CountyComment on above:Result Comment: If the DBIL is less than 0.1, IBIL is not able to be calculated.Performed By: #### CMP, CBC #### [place] [address] USAGlobulin (S) [Mass/Vol]3.1 g/dLNormCrystal Clinic Orthopedic Centere Critical Access Hospital Physician [facility] Stone CountyComment on above:Performed By: #### CMP, CBC #### [place] [address] USAProtein [Mass/Vol]7.1 g/dLNormal6.4-8.9The [facility] Access Hospital Physician GroupComment on above:Performed By: #### CMP, CBC #### [place] [address] USAINR in Platelet poor plasma by Coagulation assayOrdered By: Mk Parker on 55-97-5099DOO Coag (PPP) [Relative time]INR in Platelet poor plasma by Coagulation assayMercy Health Kings Mills HospitalComment on above:INR Therapeutic Range A) Pre- [...] by Automated counOrdered By: Mk Parker on 31-70-3316OIX corrected for nucl RBC Auto (Bld) [#/Vol]Leukocytes [#/volume] corrected for nucleated erythrocytes in Blood by Automated counHigh3.8-11.6FGlenbeigh HospitalLymphocytes Auto (Bld) [#/Vol]Ordered By: Mk Parker on 79-52-2886Qquzgnjyjwm (Bld) [#/Vol] Lymphocytes [#/volume] in Blood by Automated countHigh1.00-4.8[facility] HospitalLymphocytes/100 WBC Auto (Bld)Ordered By: Mk Parker on 17-42-6437Ufphhlzjmsc/100 WBC (Bld)Lymphocytes/100 leukocytes in Blood by Automated count.[facility] HospitalMCH Auto (RBC) [Entitic mass] Ordered By: Mk Parker on 64-26-9049UKR (RBC) [Entitic mass]MCH [Entitic mass] by Automated count24.7-34.3FGlenbeigh HospitalMCHC Auto (RBC) [Mass/Vol]Ordered By: Mk Parker on 60-42-5518IUQQ (RBC) [Mass/Vol]MCHC [Mass/volume] by Automated count32.0-35.0[facility] HospitalMCV Auto (RBC) [Entitic vol]Ordered By: Mk Parker on 90-60-6418GML (RBC) [Entitic vol]MCV [Entitic volume] by Automated xuqli12-598JospmhohdMercy Health Kings Mills HospitalMonocyte distribution width [Entitic volume] in Blood by AutomatedOrdered By: Mk Parker on 11-50-9916Jgjfwwgc distribution width Auto (Bld) [Entitic vol]Monocyte distribution width [Entitic volume] in Blood by Automated0.00-20.00 [facility] HospitalMonocytes Auto (Bld) [#/Vol]Ordered By: Mk Parker on 51-99-1752Uqgdngxxx (Bld) [#/Vol]Automated blood monocyte count0.0-0.8 [facility] HospitalMonocytes/100 WBC Auto (Bld)Ordered By: Mk Parker on 77-22-6904Zyrzvyagi/100 WBC (Bld)Automated monocyte %.[facility] HospitalNatriuretic peptide B [Mass/Vol]Ordered By: Mk Parker on 73-87-2700Mebqeuyaqks peptide B (Bld) [Mass/Vol]BNP ser/plas5-100Mer[facility] HospitalNeutrophils Auto (Bld) [#/Vol]Ordered By: Mk Parker on 97-63-5352Bedzxgrrzmx (Bld) [#/Vol]Neutrophils [#/volume] in Blood by Automated count1.8-7.7FGlenbeigh HospitalNeutrophils/100 WBC Auto (Bld) Ordered By: Mk Parker on 29-81-5963Dgznuuicest/100 WBC (Bld)Automated neutrophil %.[facility] HospitalNo Panel InformationOrdered By: Mk Parker on 83-46-7401Cfthmvhxm GFR (CKD-EPI)> 60.0 mL/MinMercy Health Kings Mills HospitalPharmacy Creatinine Clearance (Tkhd668.64Mer[facility] HospitalNucleated erythrocytes [Presence] in Blood by Automated count Ordered By: Mk Parker on 22-44-0223Brlwwmtog RBC Auto Ql (Bld)Nucleated erythrocytes [Presence] in Blood by Automated count0-0.5FGlenbeigh HospitalPlatelet mean volume Auto (Bld) [Entitic vol]Ordered By: Mk Parker on 34-35-1235Rchnnscs mean volume (Bld) [Entitic vol]Platelet mean volume [Entitic volume] in Blood by Automated count6.3-10.7FGlenbeigh HospitalPlatelets Auto (Bld) [#/Vol]Ordered By: Mk Parker on 37-04-8961Oszqgnijv (Bld) [#/Vol]Platelets [#/volume] in Blood by Automated -125GedsqokjeMercy Health Kings Mills HospitalPotassium [Moles/volume] in Serum or PlasmaOrdered By: Mk Parker on 34-85-4821Budjppvit [Moles/Vol]Potassium [Moles/volume] in Serum or PlasmaLow3.5-5.1FGlenbeigh HospitalProtein [Mass/volume] in Serum or PlasmaOrdered By: Mk Parker on 33-96-6128Bbcilax [Mass/Vol]Protein [Mass/volume] in Serum or Plasma6.4-8.9[facility] Prothrombin Time INRon 59-49-5519XMO Coag (PPP) [Relative time]1.0 {INR}Normal The [facility] Access Hospital Physician GroupComment on above:Result Comment: INR [...] heart valves: 3 - 4.5 PERFORMED BY: [place] [address] PATHOLOGIST DIAMOND DIE DRILLER ANGELA NORTON M.D.Performed By: #### CMP, CBC #### [facility] [address] [place], [place] [address] USAPT Coag (PPP) [Time]11.6 sNormal9.0-12.9The [facility] Physician [facility] CountyComment on above:Result Comment: A hematocrit value greater than 55% may lead to inaccurate results in coagulation testing. Patients having hematocrit values >55% require a special collection tube for coagulation studies. Please contact the laboratory at [phone] for redraw instructions.Performed By: #### CMP, CBC #### [facility] [address] [place], [place] [address] USAProthrombin time (PT)Ordered By: Mk Parker on 10-03-2024 PT Coag (PPP) [Time]Prothrombin time (PT)9.0-12.9[facility] HospitalComment on above:A hematocrit value greater than 55% may lead to inaccurate results in coagulation testing. Patientshaving hematocrit values >55% require a special collection tube for coagulation studies. Please contact the laboratory at [phone] for redraw instructions.RBC Auto (Bld) [#/Vol]Ordered By: Mk Parker on 67-25-4901QJR (Bld) [#/Vol]Erythrocytes [#/volume] in Blood by Automated count3.60-5.00[facility] Health West Hospitalerum or plasma albumin/globulin mass ratioOrdered By: Mk Parker on 20-14-8032Yqdheyd/Globulin [Mass ratio]Serum or plasma albumin/globulin mass ratioMercy Health West Hospitalerum or plasma anion gap determinationOrdered By: Mk Parker on 72-04-9226Zjrgs gap [Moles/Vol]Serum or plasma anion gap determination6.0-15.0 [facility] Hospitalerum or plasma non-glucuronidated bilirubin measurement (mass/volume)Ordered By: Mk Parker on 38-09-4362Idiodurmv.indirect [Mass/Vol]Serum or plasma non-glucuronidated bilirubin measurement (mass/volume)[facility] West Hospitalodium [Moles/volume] in Serum or PlasmaOrdered By: Mk Parkre on 33-37-6384Dehmdw [Moles/Vol]Sodium [Moles/volume] in Serum or Rlbjnt451-726KdumitksfMercy Health Kings Mills Hospital Troponin I High Sensitivityon 07-18-0738Zlpjwliz I High Sensitivity4.4 pg/mL Normal0.0-15.0The [facility] Access Hospital Physician GroupComment on above:Result Comment: PERFORMED BY: [place] [address] PATHOLOGIST DIAMOND DIE DRILLER ANGEAL NORTON M.D.Performed By: #### CMP, CBC #### [place] [address] USATroponin I.cardiac [Mass/volume] in Serum or Plasma by Detection limit <= 0.01 ng/Ordered By: Mk Parker on 39-18-7097Sxbpbgxw I.cardiac DL <= 0.01 ng/mL [Mass/Vol]Troponin I.cardiac [Mass/volume] in Serum or Plasma by Detection limit <= 0.01 ng/0.0-15.0[facility] HospitalUrea nitrogen [Mass/volume] in Serum or PlasmaOrdered By: Mk Parker on 80-90-3184Nanw nitrogen [Mass/Vol]Urea nitrogen [Mass/volume] in Serum or Plasma 7-25Mer[facility] HospitalWBC Auto (Bld) [#/Vol]Ordered By: Mk Parker on 27-37-1592NVD (Bld) [#/Vol]Leukocytes [#/volume] in Blood by Automated countHigh3.8-11.6FGlenbeigh HospitalALL CBC WITH AUTO DIFFon 18-37-9345DBEQHSLWI ABSOLUTE AUTO0.1NOMS HealthcareBasophils/100 WBC (Bld)0.5 % 0.2 - 2.0 %NOMRusk Rehabilitation CenterEosinophils/100 WBC (Bld)1.5 %0.9 - 7.0 %[facility] Health CareErythrocyte distribution width (RBC) [Ratio]13.4 %11.0 - 15.0 %[facility] CareHematocrit (Bld) [Volume fraction]39.0 %36.0 - 48.0 %[facility] Hemoglobin (Bld) [Mass/Vol]13.0 g/dL12.0 - 16.0 g/dLUniversity of Missouri Health CareIMMATURE GRANULOCYTES ABS AUTO0.03NOHeartland Behavioral Health ServicesImmature granulocytes/100 WBC (Bld)0.2 % 0.0 - 0.5 %[facility] CareInterpretation and review of laboratory results AbnormalNOHeartland Behavioral Health ServicesLYMPHOCYTES ABSOLUTE AUTO4.3HighUniversity of Missouri Health Care Lymphocytes/100 WBC (Bld)34.8 %20.5 - 60.0 %[facility] CenterH (RBC) [Entitic mass]30.2 pg26.7 - 34.[address] pgMercy Hospital South, formerly [address] Anthony's Medical CenterHC (RBC) [Mass/Vol]33.3 g/dL29.9 - 35.2 g/dLMercy Hospital South, formerly St. Anthony's Medical CenterV (RBC) [Entitic vol]90.7 fL81.0 - 99.0 fLUniversity of Missouri Health CareMONOCYTES ABSOLUTE AUTO0.7NOHeartland Behavioral Health ServicesMonocytes/100 WBC (Bld)5.9 % 1.7 - 12.0 %[facility] CareNEUTROPHILS ABSOLUTE AUTO7.0HighUniversity of Missouri Health Care Neutrophils/100 WBC (Bld)57.1 %43.0 - 75.0 %[facility] CarePlatelet mean volume (Bld) [Entitic vol]10.2 fL9.5 - 13.5 fLUniversity of Missouri Health CareTB EO #0.2[facility] TBH [id number] [facility] RBC4.30[facility] WBC12.2HFroedtert West Bend HospitalCLINISYNCNCARNEGIE TRI-COUNTY [facility] [place] HealthcareLon 11-53-6812USropearm: [id number] Received: 07/16/24 Status: HILARY Shane Num: [id number] Spec Type: Surgical Subm Dr: Rigoberto Montano Tissues: A Ovary - Cyst, Non-Neoplastic (OVARY, DERMOID CYST) Procedures: HE/3, Gross/Micro L4 Age/ Patient Sex Location Account Attending Physician Gary Vigil N 39/F LABELL [id number] Rigoberto Montano SPEC NUM: [id number] RECD: 07/16/24 STATUS: HILARY SHANE NUM: [id number] ZHENG: 07/16/[address]: Rigoberto Montano ENTERED: 07/16/[address] [facility] DR: SPEC TYPE: Surgical DEPT: GRISEL GELLER ENTERED BY: [id number] RECV BY: [id number] ORDERED: HE/3, Gross/Micro L4 ORDERED: HE/3, Gross/Micro [...] debris, fatty tissue, calcified material and hair. Press Cleaner sections are submitted in cassettes A1-A3. CPT Codes 22615 Specimen: [id number] Received: 07/16/24 Status: HILARY Shane Num: [id number] Spec Type: Surgical Subm Dr: Rigoberto Montano Tissues: A Ovary - Cyst, Non-Neoplastic (OVARY, DERMOID CYST) Procedures: HE/3, Gross/Micro L4 Patient: AldenNandinisandhya Reynoso [id number] (Continued) Signed (signature on file) Ricardo Andre MD 07/21/[address] [place] [address] Physician GroupECG 12-LEADon 72-18-1826[place] [address] Electrocardiograph Report Signed Patient: GARY VIGIL [place] MR#: [id number] : 1985 Acct:[id number] Age/Sex: 39 / F ADM Date: 07/02/24 Loc: PST Attending Dr: Rigoberto Montano D.O. Ordering Physician: Rigoberto Montano D.O. 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 Signed By: 07/02/242116 DD/ 6 TD/TT: Sewer Builder:TBHRadiology, Radiologist, MD - 07/02/2024 [place] [address] Electrocardiograph Report Signed Patient: GARY VIGIL MR#: [id number] : 1985 Acct:[id number] Age/Sex: 39 / F ADM Date: 07/02/24 Loc: [facility] Attending Dr: Rigoberto Montano D.O. Ordering Physician: Rigoberto Montano D.O. 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 Signed By: 07/02/242116 DD/ 0937 TD/TT: Sewer Builder: DUD[place] [facility] HospitalRadiology Study observation (narrative)[facility] 12-LEAD Ordered By: Radiologist Radiology on 59-36-7209GAQJ [facility] Work Phone: HbA1c (Bld)on 75-85-2891Yobmzqi glucose Estimated from glycated hemoglobin (Bld) [Mass/Vol]189 mg/dLDayton Osteopathic Hospital on above: eAG: (Estimated average glucose) is a calculated value from HgbA1c and is registration representative of the average blood glucose level in the last 2-3 month period. HbA1c (Bld) [Mass fraction]8.2 %High4.3 - 5.6 %[facility] on above: [place] Diabetes Association guidelines indicate that patients with HgbA1c in the range 5.7-6.4% are at increased risk for development of diabetes, and intervention by lifestyle modification may be beneficial. HgbA1c greater or equal to 6.5% is considered diagnostic of diabetes.Interpretation and review of laboratory resultsAbnormalCleveland MetroHealth Parma Medical CenterXR Foot - left AP and Lateral and obliqueon 41-76-0693PWAVZLQDWD: No acute osseous abnormality. Minimal degenerative changes, as described. Mild pes planus. Sewer Builder: ANTOLIN Transcribe Date/Time: Nov 01 2023 12:36P Dictated by : LIBRADO ROJAS MD This examination was interpreted and the report reviewed and electronically signed by: LIBRADO ROJAS MD on Nov 01 2023 11:52PM [facility] DIVISION OF RADIOLOGY* * *Final Report* [...] Small posterior calcaneal enthesophyte. DIVISION OF RADIOLOGYProvider, [facility] [place] - 11/01/2023 * * *Final Report* * [...] degenerative changes, as described. Mild pes planus. Sewer Builder: ANTOLIN Transcribe Date/Time: Nov 01 2023 12:36P Dictated by : LIBRADO ROJAS MD This examination was interpreted and the report reviewed and electronically signed by: LIBRADO ROJAS MD on Nov 01 2023 11:52PM EST [facility] CenterRadiology Study observation (narrative)[facility] CenterXR Foot - left AP and Lateral and obliqueOrdered By: [facility] Provider on 61-87-0199Ryloyyrtq ClinicAlanine aminotransferase [Enzymatic activity/volume] in Serum or Plasma Ordered By: Hanane Rondon on 36-08-6857HSV [Catalytic activity/Vol]19 U/L7-52 [facility] HospitalAlbumin [Mass/volume] in Serum or Plasma by Bromocresol green (BCG) dye binding methoOrdered By: Hanane Rondon on 57-89-9274Gkbzuff BCG dye [Mass/Vol]3.8 g/dL3.5-5.7FGlenbeigh HospitalAlkaline phosphatase [Enzymatic activity/volume] in Serum or PlasmaOrdered By: Hanane Rondon on 54-17-5994QSK [Catalytic activity/Vol]83 U/L34-104 [facility] HospitalAspartate aminotransferase [Enzymatic activity/volume] in Serum or PlasmaOrdered By: Hanane Rondon on 83-03-3184DYS [Catalytic activity/Vol]17 U/L95-25PawxpmvnpMercy Health Kings Mills HospitalAutomated erythrocytes count in urine sediment (number/area)Ordered By: Hanane Rondon on 39-38-2595OZA Auto (Urine sed) [#/Area]5-9 [HPF]0-4FGlenbeigh HospitalAutomated leukocytes count in urine sediment (number/area)Ordered By: Hanane Rondon on 95-51-0613ZXA Auto (Urine sed) [#/Area]10-19 [HPF]0-4 [facility] HospitalAutomated urine hyaline casts count (number/volume)Ordered By: Hanane Rondon on 45-23-6229Znevoto casts Auto (U) [#/Vol]1-2 [LPF]0-1FGlenbeigh HospitalBasophils Auto (Bld) [#/Vol] Ordered By: Hanane Rondon on 54-11-8958Ycgnjespy (Bld) [#/Vol]0.1 10*3/uL 0.0-0.2FGlenbeigh HospitalBasophils/100 WBC Auto (Bld)Ordered By: Hanane Rondon on 60-81-1844Ooacbxdre/100 WBC (Bld)0.8 %.[facility] HospitalBilirubin Test strip Ql (U)Ordered By: Hanane Rondon on 80-93-0128Kpjgjlznj Ql (U)NegativeNegativeMercy Health [facility] Bilirubin.total [Mass/volume] in Serum or PlasmaOrdered By: Hanane Rondon on 79-58-4854Iqfuzkcpb [Mass/Vol]0.2 mg/dL0.3-1.0[facility] Calcium [Mass/volume] in Serum or PlasmaOrdered By: Hanane Rondon on 47-94-9627Kudypgi [Mass/Vol]8.7 mg/dL8.6-10.3FGlenbeigh Hospital Carbon dioxide, total [Moles/volume] in Serum or PlasmaOrdered By: Hanane Rondon on 48-88-4004US2 [Moles/Vol]22.1 mmol/L21.0-31.0[facility] HospitalCasts typing in urine sediment by light microscopyOrdered By: Hanane Rondon on 86-20-9201Vhapv LM Nom (Urine sed)None seen [LPF]None Seen [facility] HospitalChloride [Moles/volume] in Serum or Plasma Ordered By: Hanane Rondon on 92-00-6267Qerqgtbd [Moles/Vol]105 mmol/L98-107 [facility] HospitalColor Auto (U)Ordered By: Hanane Rondon on 12-57-7651Xoqxi (U)YellowYellowMercy Health Kings Mills HospitalCreatinine [Mass/volume] in Serum or PlasmaOrdered By: Hanane Rondon on 10-23-2023 Creatinine [Mass/Vol]0.58 mg/dL0.60-1.20[facility] Eosinophils Auto (Bld) [#/Vol]Ordered By: Hanane Rondon on 10-23-2023 Eosinophils (Bld) [#/Vol]0.2 10*3/uL0.0-0.45[facility] Eosinophils/100 WBC Auto (Bld)Ordered By: Hanane Rondon on 10-23-2023 Eosinophils/100 WBC (Bld)2.2 %.[facility] HospitalErythrocyte distribution width Auto (RBC) [Ratio]Ordered By: Hanane Rondon on 10-23-2023 Erythrocyte distribution width (RBC) [Ratio]15.4 %11.9-15.3FGlenbeigh HospitalGlobulin Calc (S) [Mass/Vol]Ordered By: Hanane Rondon on 58-35-3633Vsmnkyrb (S) [Mass/Vol]3.2 g/dLMercy Health Kings Mills Hospital Glucose [Mass/volume] in Serum or PlasmaOrdered By: Hanane Rondon on 61-76-0463Kmjnjxe [Mass/Vol]313 mg/yM81-120CcmvlbsiuMercy Health Kings Mills Hospital Comment on above:ADA recommended reference rangeRandom Glucose Reference Range is dependent on time and content of last meal. Glucose of more than 200 mg/dL in a nonstressed, ambulatory subject supports the diagnosisof Diabetes Mellitus. HCG ( test) IA.rapid Ql (U)Ordered By: Hanane Rondon on 03-04-4616UWW ( test) Ql (U)NegativeMercy Health Kings Mills HospitalHematocrit Auto (Bld) [Volume fraction]Ordered By: Hanane Rondon on 48-23-3448Zfkegfspmy (Bld) [Volume fraction]36.6 %34.0-46.4FGlenbeigh Hospital Hemoglobin [Mass/volume] in BloodOrdered By: Hanane Rondon on 10-23-2023 Hemoglobin (Bld) [Mass/Vol]12.3 g/dL11.8-15.4FGlenbeigh Hospital Ketones Auto test strip (U) [Mass/Vol]Ordered By: Hanane Rondon on 10-23-2023 Ketones (U) [Mass/Vol]TraceNegativeMercy Health Kings Mills HospitalLeukocytes [#/volume] corrected for nucleated erythrocytes in Blood by Automated coun Ordered By: Hanane Rondon on 23-48-7619QFY corrected for nucl RBC Auto (Bld) [#/Vol]9.5 10*3/uL3.8-11.6FGlenbeigh HospitalLipase [Enzymatic activity/volume] in Serum or PlasmaOrdered By: Hanane Rondon on 10-23-2023 Lipase [Catalytic activity/Vol]50.0 U/L11.0-82.0[facility] HospitalLymphocytes Auto (Bld) [#/Vol]Ordered By: Hanane Rondon on 10-23-2023 Lymphocytes (Bld) [#/Vol]4.8 10*3/uL1.00-4.8[facility] Lymphocytes/100 WBC Auto (Bld)Ordered By: Hanane Rondon on 10-23-2023 Lymphocytes/100 WBC (Bld)50.4 %.[facility] HospitalMCH Auto (RBC) [Entitic mass]Ordered By: Hanane Rondon on 86-80-5818WXF (RBC) [Entitic mass] 30.2 pg24.7-34.3FGlenbeigh HospitalMCHC Auto (RBC) [Mass/Vol] Ordered By: Hanane Rondon on 51-53-8214TUPO (RBC) [Mass/Vol]33.6 g/dL32.0-35.0 [facility] HospitalMCV Auto (RBC) [Entitic vol]Ordered By: Hanane Rondon on 27-09-6539OHI (RBC) [Entitic vol]89.7 lQ90-954SstaguzobMercy Health Kings Mills HospitalMonocyte distribution width [Entitic volume] in Blood by AutomatedOrdered By: Hanane Rondon on 17-02-4489Zsgzvjct distribution width Auto (Bld) [Entitic vol]17.04 %0.00-20.00[facility] Monocytes Auto (Bld) [#/Vol]Ordered By: Hanane Rondon on 40-45-0850Xrymkzigm (Bld) [#/Vol]0.5 10*3/uL0.0-0.8[facility] HospitalMonocytes/100 WBC Auto (Bld)Ordered By: Hanane Rondon on 91-38-2436Wuufabilz/100 WBC (Bld) 5.0 %.[facility] HospitalNeutrophils Auto (Bld) [#/Vol]Ordered By: Hanane Rondon on 29-56-2291Fftiznxrcql (Bld) [#/Vol]3.9 10*3/uL1.8-7.7 [facility] HospitalNeutrophils/100 WBC Auto (Bld)Ordered By: Hanane Rondon on 21-47-2032Laquhzwhxlj/100 WBC (Bld)41.6 %.[facility] HospitalNitrite Test strip Ql (U)Ordered By: Hanane Rondon on 10-23-2023 Nitrite Ql (U)NegativeNegativeMercy Health Kings Mills HospitalNo Panel InformationOrdered By: Hanane Rondon on 58-78-4894Yspjwgbxu GFR (CKD-EPI)> 60.0 mL/MinMercy Health Kings Mills HospitalPharmacy Creatinine Clearance (Chem [address] [place], [place] [address]Nucleated erythrocytes [Presence] in Blood by Automated countOrdered By: Hanane Rondon on 96-87-9606Dlopfaubv RBC Auto Ql (Bld)0.2 /100{WBC}0-0.5FGlenbeigh HospitalPlatelet mean volume Auto (Bld) [Entitic vol]Ordered By: Hanane Rondon on 70-14-3853Nytktgmx mean volume (Bld) [Entitic vol]8.2 fL6.3-10.7FGlenbeigh Hospital Platelets Auto (Bld) [#/Vol]Ordered By: Hanane Rondon on 45-23-1976Ddjqhsson (Bld) [#/Vol]386 10*3/vV385-474TfotqxzxnMercy Health Kings Mills HospitalPotassium [Moles/volume] in Serum or PlasmaOrdered By: Hanane Rondon on 10-23-2023 Potassium [Moles/Vol]3.3 mmol/L3.5-5.1FGlenbeigh HospitalProtein Auto test strip (U) [Mass/Vol]Ordered By: Hanane Rondon on 93-27-4410Dmxifpc (U) [Mass/Vol]Trace mg/dLNegativeMercy Health Kings Mills HospitalProtein [Mass/volume] in Serum or PlasmaOrdered By: Hanane Rondon on 35-04-9412Godzhgl [Mass/Vol]7.0 g/dL6.4-8.9[facility] HospitalRBC Auto (Bld) [#/Vol]Ordered By: Hanane Rondon on 35-23-1940MZM (Bld) [#/Vol]4.07 10*6/uL 3.60-5.00[facility] Hospitalerum or plasma albumin/globulin mass ratioOrdered By: Hanane Rondon on 90-62-1488Ezyyzax/Globulin [Mass ratio]1.2 {ratio}[facility] Hospitalerum or plasma anion gap determination Ordered By: Hanane Rondon on 56-94-4182Fcksw gap [Moles/Vol]13.2 mmol/L 6.0-15.0[facility] Hospitalodium [Moles/volume] in Serum or PlasmaOrdered By: Hanane Rondon on 20-49-4722Tcbgqu [Moles/Vol]137 mmol/L 136-145[facility] Hospitalpecific gravity Auto test strip (U) [Rel density]Ordered By: Hanane Rondon on 54-10-2244Oqqsyuxw gravity (U) [Rel density]1.0361.001-1.030[facility] Hospitalquamous epithelial cells detection in urine sediment by light microscopyOrdered By: Hanane Rondon on 92-29-5743Vydibpksgi cells.squamous LM Ql (Urine sed)10-19 [HPF]0-2FGlenbeigh HospitalUrea nitrogen [Mass/volume] in Serum or PlasmaOrdered By: Hanane Rondon on 58-16-2939Nyzi nitrogen [Mass/Vol]10 mg/dL7-25[facility] HospitalUrine bacteria detection by automated methodOrdered By: Hanane Rondon on 42-59-9662Aroasokn Auto Ql (U)1+None SeenMercy Health Kings Mills HospitalUrine clarity by refractometry automatedOrdered By: Hanane Rondon on 38-06-5346Xlwgghh Refractometry automated (U)CloudyClePremier Health Miami Valley Hospital SouthUrine glucose measurement by automated test strip (mass/volume)Ordered By: Hanane Rondon on 25-54-9346Ymdvfie Auto test strip (U) [Mass/Vol]>=1000 mg/dLNoOur Lady of Mercy HospitalUrine hemoglobin detection by automated test stripOrdered By: Hanane Rondon on 60-98-4461Tpambewmay Auto test strip Ql (U)TraceNegTriHealth Bethesda North HospitalUrine leukocyte esterase detection by automated test stripOrdered By: Hanane Rondon on 62-21-4093Qdnbnvzvn esterase Auto test strip Ql (U) NegativeNegTriHealth Bethesda North HospitalUrobilinogen Auto test strip (U) [Mass/Vol]Ordered By: Hanane Rondon on 75-45-9914Mbemaceovjnp (U) [Mass/Vol]Normal mg/dLNoOur Lady of Mercy HospitalWBC Auto (Bld) [#/Vol]Ordered By: Hanane Rondon on 69-01-8626OZV (Bld) [#/Vol]9.5 10*3/uL 3.8-11.6FGlenbeigh HospitalpH Auto test strip (U)Ordered By: Hanane Rondon on 25-67-2036eU (U)5.5 [pH]5.0-9.0[facility] HospitalCBC AUTO DIFFon 42-28-6135ETJD #0.0 103/ulNormal0.0-0.1The [facility] CenterComment on above:Performed By: #### PT, PTT #### [facility] [address] [place] [address] Dr. Tati ReillyBasophils/100 WBC (Bld)0.4 %Normal0.2-2.0[facility] Comment on above:Performed By: #### PT, PTT #### [facility] [address] [place] [address] Dr. Tati Chance #0.1 103/ulNormal0.0-0.7The [facility] CenterComment on above: Performed By: #### PT, PTT #### [facility] [address] [place] [address] Dr. Tati Bettencourtosinophils/100 WBC (Bld)1.5 %Normal0.9-7.0[facility] Comment on above:Performed By: #### PT, PTT #### [facility] [address] [place] [address] Dr. Tati Bettencourtrythrocyte distribution width (RBC) [Ratio]14.4 %Ahlran68.0-15.0 The [facility] CenterComment on above:Performed By: #### PT, PTT #### [facility] [address] [place] [address] Dr. Tati ReillyHematocrit (Bld) [Volume fraction]38.9 %Qhzsuf39.0-48.0The [facility] CenterComment on above:Performed By: #### PT, PTT #### [facility] [address] [place] [address] Dr. Tati ReillyHemoglobin (Bld) [Mass/Vol]12.9 g/cQYhfuil34.0-16.0The [facility] CenterComment on above:Performed By: #### PT, PTT #### [facility] [address] [place] [address] Dr. Tati Brar #0.03 10e3/ulNormal0.00-0.03The [facility] CenterComment on above:Performed By: #### PT, PTT #### [facility] [address] [place] [address] Dr. Tati Brar %0.3 %Normal0.0-0.5The [facility] CenterComment on above: Performed By: #### PT, PTT #### [facility] [address] [place] [address] Dr. Tati Cruz #4.3 103/ulCritically high1.2-3.8The [facility] Comment on above:Performed By: #### PT, PTT #### [facility] [address] [place] [address] Dr. Tati Landonhocytes/100 WBC (Bld)45.7 %Yirtwb27.5-60.0The [facility] CenterComment on above:Performed By: #### PT, PTT #### [facility] [address] [place] [address] Dr. Tati Ponce DIFF REQNONormalThe [facility] Medical CenterComment on above: Performed By: #### PT, PTT #### [facility] [address] [place] [address] Dr. Tati Sarmietno (RBC) [Entitic mass]28.9 zuCgykqu45.7-34.0The [facility] CenterComment on above:Performed By: #### PT, PTT #### [facility] [address] [place] [address] Dr. Tati Chavarria (RBC) [Mass/Vol]33.2 g/bBQokuwp73.9-35.2The [facility] CenterComment on above:Performed By: #### PT, PTT #### [facility] [address] [place] [address] Dr. Tati Chavarria (RBC) [Entitic vol]87.0 xQTqgizc29.0-99.0The [facility] CenterComment on above:Performed By: #### PT, PTT #### [facility] [address] [place] [address] Dr. Tati Leahy #0.4 103/ulNormal0.3-0.8The [facility] CenterComment on above:Performed By: #### PT, PTT #### [facility] [address] [place] [address] Dr. Tati Omerocytes/100 WBC (Bld)4.6 %Normal1.7-12.0[facility] Comment on above:Performed By: #### PT, PTT #### [facility] [address] [place] [address] Dr. Tati HerediaUT #4.5 103/ulNormal1.4-6.5The [facility] CenterComment on above:Performed By: #### PT, PTT #### [facility] [address] [place] [address] Dr. Tati Herediautrophils/100 WBC (Bld)47.5 %Tzsrvn77.0-75.0The [facility] CenterComment on above:Performed By: #### PT, PTT #### [facility] [address] [place] [address] Dr. Tati ReillyPlatelet mean volume (Bld) [Entitic vol]9.8 fLNormal9.5-13.5The [facility] CenterComment on above:Performed By: #### PT, PTT #### [facility] [address] [place] [address] Dr. Tati ReillyPLT405 103/lgFxiibu951-062Tfa [facility] CenterComment on above: Performed By: #### PT, PTT #### [facility] [address] [place] [address] Dr. Tati ReillyRBC4.47 106/ulNormal4.20-5.40The [facility] CenterComment on above:Performed By: #### PT, PTT #### [facility] [address] [place] [address] Dr. Tati ReillyWBC9.4 103/ulNormal4.0-11.0The [facility] CenterComment on above: Performed By: #### PT, PTT #### [facility] [address] [place] [address] Dr. Tati ReillyGLYCOHEMOGLOBIN A1Con 25-59-3004VUV RECOMMENDATIONSEE BELOWNormal The [facility] Medical CenterComment on above:Result Comment: ADA RECOMMENDED LIMIT 4.0 - 6.0 ADA THERAPEUTIC TARGET < 7.0 ACTION SUGGESTED > 7.0Performed By: #### A1C #### [facility] [address] [address] [address] Tati ReillyGlucose [Mass/Vol]177 mg/dLNoFlower HospitalComment on above:Performed By: #### A1C #### [facility] [address] [address] [address] Tati ReillyHbA1c (Bld) [Mass fraction]7.8 %Critically high4.5-6.2The [facility] CenterComment on above:Performed By: #### A1C #### [facility] [address] [address] [address] Tati StarkID PROFILEon 88-24-2369VDJE-HDL RATIO NORMSEE BELOWUniversity Hospitals Elyria Medical CenterComment on above:Result Comment: 3.3 - 4.4 LOW RISK 4.4 - 7.1 AVERAGE RISK 7.1 - 11.0 MODERATE RISK >11.0 HIGH RISKPerformed By: #### LIPID, CMP #### [facility] [address] [address] [address] Tati Dalyesterol [Mass/Vol]188 mg/dLNormal<=200The [facility] Comment on above:Performed By: #### LIPID, CMP #### [facility] [address] [address] [address] Tati ReillyCholesterol in HDL [Mass/Vol]33 mg/dLCritically kvo35-48Znj [facility] CenterComment on above:Performed By: #### LIPID, CMP #### [facility] [address] [address] [address] Tati ReillyCholesterol in LDL [Mass/Vol]140.4 mg/dLUniversity Hospitals Elyria Medical CenterComment on above:Performed By: #### LIPID, CMP #### [facility] [address] [place] [address] Dr. Tati Dalyesterol.total/Cholesterol in HDL [Mass ratio]5.7 {ratio} NormalThe [facility] Medical CenterComment on above:Performed By: #### LIPID, CMP #### [facility] [address] [address] [address] Tati Whitley NORMAL> or = 60 mg/dl - LOW CARDIOVASCULAR RISK <40 mg/dl - HIGH CARDIOVASCULAR RISKUniversity Hospitals Elyria Medical CenterComment on above:Performed By: #### LIPID, CMP #### [facility] [address] [address] [address] Tati Manley CALC NORMALSEE BELOWNoFlower HospitalComment on above:Result Comment: <100 mg/dl OPTIMAL 100 - 129 mg/dl NEAR OR ABOVE OPTIMAL 130 - 159 mg/dl BORDERLINE HIGH 160 - 189 mg/dl HIGH >190 mg/dl VERY HIGH Performed By: #### LIPID, CMP #### [facility] [address] [place] [address] Dr. Tati ReillyTriglyceride [Mass/Vol]73 mg/dLNormal<=150The [facility] Comment on above:Performed By: #### LIPID, CMP #### [facility] [address] [place] [address] Dr. Tati BergmanLDL CALC14.6 mg/dLNoFlower HospitalComment on above: Performed By: #### LIPID, CMP #### [facility] [address] [place] [address] Dr. Tati Saul PROFILEon 89-10-7677ZXM [Catalytic activity/Vol]79 U/L Vzrfxb05-645Zgk [facility] CenterCommunising memorial hospital on above:Performed By: #### LIVER #### [facility] [address] [address] [address] Tati Mullen [Catalytic activity/Vol]26 U/FKzflyq77-82Bhd [facility] CenterComment on above:Performed By: #### LIVER #### [facility] [address] [place] [address] Dr. Tati Lee [Catalytic activity/Vol]12 U/LCritically yzf84-91Zxt [facility] CenterCommunising memorial hospital on above:Performed By: #### LIVER #### [facility] [address] [place] [address] Dr. Yilan ChangBILI, CONJUGATED0.1 mg/dLNormal0.0-0.2The [facility] Comment on above:Performed By: #### LIVER #### [facility] [address] [place] [address] Dr. Tati Casillasirubin [Mass/Vol]0.2 mg/dLNormal0.2-1.0The [facility] Comment on above:Performed By: #### LIVER #### [facility] [address] [place] [address] Dr. Tati ReillyPRODeandre 14(COMP METB)on 28-63-2437Pcqzjcu [Mass/Vol]3.5 g/dLNormal 3.4-5.0The [facility] CenterComment on above:Performed By: #### LIPID, CMP #### [facility] [address] [place] [address] Dr. Tati ReillyPerformed By: #### LIVER #### [facility] [address] [place] [address] Dr. Tati ReillyAlbumin/Globulin [Mass ratio]0.7 {ratio}NormalThe [facility] Medical CenterComment on above:Performed By: #### LIPID, CMP #### [facility] [address] [place] [address] Dr. Tati ReillyPerformed By: #### LIVER #### [facility] [address] [place] [address] Dr. Tati Mai [Catalytic activity/Vol]77 U/MYojyxy18-573Uut [facility] CenterComment on above:Performed By: #### LIPID, CMP #### [facility] [address] [place] [address] Dr. Tati Mullen [Catalytic activity/Vol]27 U/FYbplqq01-37Kjs [facility] CenterComment on above:Performed By: #### LIPID, CMP #### [facility] [address] [place] [address] Dr. Tati Sanchez gap [Moles/Vol]12.6 mmol/LNormalThe [facility] Comment on above:Performed By: #### LIPID, CMP #### [facility] [address] [address] [address] Tati ReillyAST [Catalytic activity/Vol]11 U/LCritically umo17-41Wzy [facility] CenterComment on above:Performed By: #### LIPID, CMP #### [facility] [address] [address] [address] Tati ReillyBilirubin [Mass/Vol]0.1 mg/dLCritically low0.2-1.0The [facility] CenterComment on above:Performed By: #### LIPID, CMP #### [facility] [address] [address] [address] Tati ReillyCalcium [Mass/Vol]9.3 mg/dLNormal8.5-10.1The [facility] Comment on above:Performed By: #### LIPID, CMP #### [facility] [address] [place] [address] Dr. Tati ReillyChloride [Moles/Vol]105 mmol/JGhgvja25-069Hms [facility] Comment on above:Performed By: #### LIPID, CMP #### [facility] [address] [address] [address] Tati ReillyCO2 [Moles/Vol]22.3 mmol/AFsosli64.0-32.0The [facility] Comment on above:Performed By: #### LIPID, CMP #### [facility] [address] [place] [address] Dr. Tati ReillyCreatinine [Mass/Vol]0.58 mg/dLNormal0.55-1.02The [facility] CenterComment on above:Performed By: #### LIPID, CMP #### [facility] [address] [place] [address] Dr. Tati BettencourtGFR-AF CITIZEN [place]>60Normal>=60The [facility] Medical CenterComment on above:Performed By: #### LIPID, CMP #### [facility] [address] [place] [address] Dr. Tati BettencourtGFR-NON AF CITIZEN OF [place]>60Normal>=60The [facility] CenterComment on above:Performed By: #### LIPID, CMP #### [facility] [address] [address] [address] Tati ReillyGlobulin (S) [Mass/Vol]4.8 g/dLNoFlower HospitalComment on above:Performed By: #### LIPID, CMP #### [facility] [address] [place] [address] Dr. Tati ReillyPerformed By: #### LIVER #### [facility] [address] [place] [address] Dr. Tati ReillyGlucose [Mass/Vol]142 mg/dLCritically mzms11-008Bfv [facility] CenterComment on above:Performed By: #### LIPID, CMP #### [facility] [address] [place] [address] Dr. Tati ReillyPotassium [Moles/Vol]3.9 mmol/LNormal3.5-5.1The [facility] Comment on above:Performed By: #### LIPID, CMP #### [facility] [address] [place] [address] Dr. Tati ReillyProtein [Mass/Vol]8.3 g/dLCritically high6.4-8.2The [facility] CenterComment on above:Performed By: #### LIPID, CMP #### [facility] [address] [place] [address] Dr. Tati ReillyPerformed By: #### LIVER #### [facility] [address] [place] [address] Dr. Tati ReillySodium [Moles/Vol]136 mmol/MLzztko798-159Phq [facility] Comment on above:Performed By: #### LIPID, CMP #### [facility] [address] [place] [address] Dr. Tati ReillyUrea nitrogen [Mass/Vol]10.0 mg/dLNormal7.0-18.0The [facility] CenterComment on above:Performed By: #### LIPID, CMP #### [facility] [address] [place] [address] Dr. Tati ReillyUrea nitrogen/Creatinine [Mass ratio]17.2 mg/mgNoFlower HospitalComment on above:Performed By: #### LIPID, CMP #### [facility] [address] [address] [address] Tati RossIMEon [id number] Coag (PPP) [Relative time]{INR}NormalThe [facility] on above:Performed By: #### PT, PTT #### [facility] [address] [address] [address] Tati Feliciano GUIDELINESSEE BELOWNoFlower HospitalComment on above:Result Comment: DESIRED INR: 2.0 - 3.0 CONDITIONS NOT LISTED BELOW 2.5 - 3.5 FOR PROSTHETIC HEART VALVE REPLACEMENT 2.5 - 3.5 RECURRENT THROMBOSIS Performed By: #### PT, PTT #### [facility] [address] [place] [address] Dr. Tati ReillyPT Coag (PPP) [Time]9.8 sNormal9.0-11.6[facility] Comment on above:Performed By: #### PT, PTT #### [facility] [address] [place] [address] Dr. Tati Willis [id number] Coag (Bld) [Time]31.0 jQzrqcy60.3-36.2The [facility] Medical CenterComment on above:Performed By: #### PT, PTT #### [facility] [address] [place] [address] Dr. Tati Ang CARDIAC STRESS/REST INJECTIONon 23-99-8812RPK CARDIAC STRESS/REST INJECTIONMRN: [id number] Patient Name: GARY VIGIL STUDY: MYOCARDIAL PERFUSION STRESS TEST WITH EXERCISE Performing facility: [facility], [address] [place] [address], [address], [address] Provider: Krystal Koehler MD, FACC PCP: Dr. Alfonso MARQUES Supervising provider: Joe Meek MD INDICATION: R94.31: Abnormal EKG R07.89: Chest discomfort R06.02: Shortness of breath on exertion Pre-operative risk assessment for Hysterectomy scheduled at [facility] on 04/12/23. HISTORY: Gender: F; Age: 37 y/o ; Height: 0 cm; Weight: 0 kg. High Cholesterol; Diabetes; Family HX CAD; Abnormal EKG; Chest Pain; SOB; Edema, Asthma Currently smoking. COMPARISON: No comparison. ACCESSION NUMBER(S): [id number]; [id number]; [id number] ORDERING CLINICIAN: KRYSTAL KOEHLER TECHNIQUE: TWO DAY [...] the Flash protocol.. Electronically signed by: Bonifacio HORTONSaint Joseph HospitalNo Panel Informationon 84-46-2882VxzrgyGXBenjamin [place]ille [address] DO Work Phone: Echocardiogramon 30-90-5429NpgcswluvnagfhlfRieqiJoseph Ville [address] TRANSTHORACIC ECHOCARDIOGRAM REPORT Patient Name: GARY VIGIL Reading [id number] Jonah Rodriguez MD Physician: Study Date: 02/21/2023 Referring KRYSTAL KOEHLER Physician: MRN/PID: [id number] PCP: Dawna Accession/Order#: [id number] [facility] Location: Date of : 1985 Fellow: Gender: F Nurse: Wendy Brown RN Admit Date: Cellophane Bag Machine Operator: Smita Rincon RDCS, RVT Height: 167.64 cm CC Report to: Rigoberto Montano Weight: 104.33 kg Study Type: Echocardiogram BSA: 2.12 m2 Diagnosis/ICD: R07.89-Other chest pain; R94.31-Abnormal electrocardiogram [ECG] [EKG] Indication: Diabetes, Edema, HTN, POC-Hysterectomy with Dr. Erika Montano 04/03/2023, Tobacco Abuse, Bipolar Disorder, [place], Morbid Obesity, Hypokalemia, Anemia, Shortness of Breath Procedure/CPT: Echo Complete w Full Doppler-[id number] Study Detail: The following Echo studies were [...] 0.8 m/s (0.6-0.9m/s) PV Max P.7 mmHg [id number] Jonah Rodriguez MD Electronically signed on 02/24/2023 at 2:03:49 PM Final NormalUH [facility] HospitalCalcium [Mass/volume] in Serum or PlasmaOrdered By: Krystal Koehler on 83-04-5741Rvvsgvv [Mass/Vol]10.0 mg/dL8.6-10.3 [facility] HospitalCarbon dioxide, total [Moles/volume] in Serum or PlasmaOrdered By: Krystal Koehler on 85-55-2263WA7 [Moles/Vol]23.9 mmol/L 21.0-31.0[facility] HospitalChloride [Moles/volume] in Serum or PlasmaOrdered By: Krystal Koehler on 54-02-0204Njsvaxbi [Moles/Vol]103 mmol/L98-107 [facility] HospitalCreatinine [Mass/volume] in Serum or Plasma Ordered By: Krystal Koehler on 57-93-2056Ddsgpdkgnp [Mass/Vol]0.63 mg/dL0.60-1.20 [facility] HospitalGlucose [Mass/volume] in Serum or PlasmaOrdered By: Krystal Koehler on 92-36-8410Wfshwau [Mass/Vol]155 mg/zZ18-467OgcrpsvckMercy Health Kings Mills HospitalComment on above:ADA recommended reference rangeRandom Glucose Reference Range is dependent on time and content of last meal. Glucose of more than 200 mg/dL in a nonstressed, ambulatory subject supports the diagnosisof Diabetes Mellitus.Laboratory - Chemistry and Chemistry - challenge Ordered By: Krystal Koehler on 71-97-6514XEJ/1.73 sq M.predicted MDRD (S/P/Bld) [Vol rate/Area]mL/min/{1.73_m2}[facility] HospitalNo Panel InformationOrdered By: Krystal Koehler on 37-66-1582Qnselltg Creatinine Clearance (ChemN/AFGlenbeigh HospitalNo Panel Informationon 02-18-2023> 60.0 NormalMP-[facility] [address] DO Work Phone: [phone]\S\14.1Fasvsz9.0-15.0MP-[facility] [address] DO Work Phone: [phone]\S\10.5Wgbkrb4.6-10.3MP-[facility] [address] DO Work Phone: Comment on above:PERFORMED BY:[facility] [place], [place] [phone] MEDICAL DIRECTORANGELA NORTON M.D.23.9\S\23.2Immqhk16.0-31.0MP-[facility] [address] DO Work Phone: [phone]\S\773Ltimrl26-374QY-[facility] [place] [facility] [address] DO Work Phone: [phone]\S\4.5Mzqlux1.5-5.1MP-[facility] [address] DO Work Phone: [phone]\S\377Igdule347-946RO-Rodsy [place] [facility] [address] DO Work Phone: [phone]\S\0.58Ntjhsk7.60-1.20MP-[facility] [address] DO Work Phone: [phone]\S\37Bldxgr1-69HN-F[facility] [place] [facility] [address] DO Work Phone: [phone]\S\155above high tosvdvhiv24-243NF-Mnqbn [place] [facility] [address] DO Work Phone: Comment on above:Random Glucose Reference Range is dependent on time and content of last meal. Glucose of more than 200 mg/dL in a nonstressed, ambulatory subject supports the diagnosis of Diabetes Mellitus. ADA recommended reference rangePotassium [Moles/volume] in Serum or PlasmaOrdered By: Krystal Koehler on 03-28-5242Jhnqhqyzs [Moles/Vol]4.1 mmol/L3.5-5.1FCentervilleerum or plasma anion gap determinationOrdered By: Krystal Koehler on 22-38-0000Ozjrx gap [Moles/Vol]14.2 mmol/L6.0-15.0[facility] Hospitalodium [Moles/volume] in Serum or PlasmaOrdered By: Krystal Koehler on 23-36-9371Mnhsgr [Moles/Vol]137 mmol/Y991-004AuyorttjmMercy Health Kings Mills HospitalUrea nitrogen [Mass/volume] in Serum or PlasmaOrdered By: Krystal Koehler on 50-63-0483Xopz nitrogen [Mass/Vol]13 mg/dL7-25[facility] Office Visit (Cardiology)on 00-30-4086Gajipf-up visitDiagnoses/Problems Assessed Abnormal EKG (794.31) (R94.31) Chest [...] we can help. You may also call [phone] for free resources and assistance.; Status:Complete; Done: [...] perfusion (more content not included)...NormalUH TouchworksTobacco Screening.on 90-85-3576Zlqks depression screening assessmentNoLifePoint Health [employer] 250 DO Work Phone: Fall risk assessmentc) Not medically indicatedLifePoint Health [employer] 250 DO Work Phone: Tobacco use status CPHSb) NoM-[facility] [address] DO Work Phone: Activated partial thromboplastin time (aPTT) in platelet poor plasma by coagulation aOrdered By: Aron Trevino on 01-13-2023 aPTT Coag (PPP) [Time]34.2 s25.1-36.5FGlenbeigh HospitalBasophils Auto (Bld) [#/Vol]Ordered By: Aron Trevino on 44-14-9099Lonnzkghe (Bld) [#/Vol]0.1 10*3/uL0.0-0.2FGlenbeigh HospitalBasophils/100 WBC Auto (Bld)Ordered By: Aron Trevino on 33-64-5124Cilvtzqvp/100 WBC (Bld)0.8 %. [facility] HospitalCreatine kinase.MB [Mass/volume] in Serum or PlasmaOrdered By: Aron Trevino on 41-02-0130GW.MB [Mass/Vol]1.3 ng/mL0.6-6.3 [facility] HospitalCreatinine and Glomerular filtration rate.predicted panel (S/P/Bld)Ordered By: rAon Trevino on 01-13-2023 Creatinine [Mass/Vol]0.66 mg/dL0.44-1.03[facility] Eosinophils Auto (Bld) [#/Vol]Ordered By: Aron Trevino on 01-13-2023 Eosinophils (Bld) [#/Vol]0.2 10*3/uL0.0-0.45[facility] Eosinophils/100 WBC Auto (Bld)Ordered By: Aron Trevino on 01-13-2023 Eosinophils/100 WBC (Bld)1.6 %.[facility] HospitalErythrocyte distribution width Auto (RBC) [Ratio]Ordered By: Aron Trevino on 01-13-2023 Erythrocyte distribution width (RBC) [Ratio]15.8 %11.9-15.3FGlenbeigh HospitalEstimated glomerular filtration rate (GFR) non- Ordered By: Aron Trevino on 80-07-5702RWC/1.73 sq M.predicted among non- blacks MDRD (S/P/Bld) [Vol rate/Area]> 60 mL/MinMercy Health Kings Mills HospitalHematocrit Auto (Bld) [Volume fraction]Ordered By: Aron Trevino on 03-57-1028Bnoibbzrgd (Bld) [Volume fraction]34.3 %34.0-46.4FGlenbeigh HospitalHemoglobin [Mass/volume] in BloodOrdered By: Aron Trevino on 14-42-9782Apizddkujr (Bld) [Mass/Vol]11.2 g/dL11.8-15.4FGlenbeigh HospitalLaboratory - Chemistry and Chemistry - challengeOrdered By: Aron Trevino on 25-82-8344Lrmuzsdanvp peptide B (Bld) [Mass/Vol]22.0 pg/mL 5-100[facility] HospitalLaboratory - CoagulationOrdered By: Aron Trevino on 33-27-7063RJ Coag (PPP) [Time]11.4 s9.0-12.9[facility] HospitalLeukocytes [#/volume] corrected for nucleated erythrocytes in Blood by Automated counOrdered By: Aron Trevino on 49-11-1492STK corrected for nucl RBC Auto (Bld) [#/Vol]12.4 10*3/uL3.8-11.6 [facility] HospitalLymphocytes Auto (Bld) [#/Vol]Ordered By: Aron Trevino on 26-84-0875Imagkrovomq (Bld) [#/Vol]5.1 10*3/uL1.00-4.8 [facility] HospitalLymphocytes/100 WBC Auto (Bld)Ordered By: Aron Trevino on 08-07-6444Ozjqpkuhlbu/100 WBC (Bld)41.4 %.[facility] HospitalH Auto (RBC) [Entitic mass]Ordered By: Aron Trevino on 49-49-8036LVG (RBC) [Entitic mass]29.0 pg24.7-34.3FGlenbeigh HospitalMCHC Auto (RBC) [Mass/Vol]Ordered By: Aron Trevino on 56-67-8644FYWI (RBC) [Mass/Vol]32.7 g/dL32.0-35.0[facility] HospitalMCV Auto (RBC) [Entitic vol]Ordered By: Aron Trevino on 62-29-5518KSB (RBC) [Entitic vol]88.5 wV12-035UuscccsvyMercy Health Kings Mills HospitalMonocyte distribution width [Entitic volume] in Blood by AutomatedOrdered By: Aron Trevino on 01-13-2023 Monocyte distribution width Auto (Bld) [Entitic vol]18.05 %0.00-20.00[facility] HospitalMonocytes Auto (Bld) [#/Vol]Ordered By: Aron Trevino on 76-65-3418Glbpqyjio (Bld) [#/Vol]0.6 10*3/uL0.0-0.8[facility] HospitalMonocytes/100 WBC Auto (Bld)Ordered By: Aron Trevino on 01-13-2023 Monocytes/100 WBC (Bld)5.2 %.[facility] HospitalNeutrophils Auto (Bld) [#/Vol]Ordered By: Aron Trevino on 07-49-7713Vrplnyvpmgs (Bld) [#/Vol] 6.3 10*3/uL1.8-7.7FGlenbeigh HospitalNeutrophils/100 WBC Auto (Bld)Ordered By: Aron Trevino on 46-55-0654Ckiictqvtpa/100 WBC (Bld)51.0 %. [facility] HospitalNo Panel InformationOrdered By: Aron Trevino on 61-09-1935Q-Dimer Quantitative (PE/DVT)< 200 ng/mL0-243[facility] HospitalComment on above:The reference range for D-dimer [...] toco-morbid conditions.Estimated GFR ()> 60 mL/MinMercy Health Kings Mills HospitalComment on above: GFR estimated reference range: According to KDOQI guidelines, <60 ml/min/1.73m2 is sufficient todiagnose a patient with chronic kidney disease.Pharmacy Creatinine Clearance (Dwyv428.66[facility] HospitalNucleated erythrocytes [Presence] in Blood by Automated countOrdered By: Aron Trevino on 83-73-0278Dungwxawj RBC Auto Ql (Bld)0.1 /100{WBC}0-0.5FGlenbeigh HospitalPlatelet mean volume Auto (Bld) [Entitic vol]Ordered By: Aron Trevino on 86-02-7946Rbvogerx mean volume (Bld) [Entitic vol]7.4 fL6.3-10.7 [facility] HospitalPlatelet poor plasma international normalized ratio (INR) by coagulation assay (relatOrdered By: Aron Trevino on 29-04-1238BVS Coag (PPP) [Relative time]1.0 {INR}[facility] HospitalComment on above:INR Therapeutic Range A) Pre- [...] Auto (Bld) [#/Vol]Ordered By: Aron Trevino on 33-03-9277Ncoysuymi (Bld) [#/Vol]380 10*3/aH348-490KahvjkzveMercy Health Kings Mills HospitalRBC Auto (Bld) [#/Vol]Ordered By: Aron Trevino on 34-76-2582GDC (Bld) [#/Vol]3.88 10*6/uL3.60-5.00[facility] Hospitalerum or plasma anion gap determinationOrdered By: Aron Trevino on 22-54-5584Lfiff gap [Moles/Vol]11.4 mmol/L6.0-15.0[facility] Hospitalerum or plasma calcium measurement (mass/volume)Ordered By: Aron Trevino on 01-13-2023 Calcium [Mass/Vol]8.7 mg/dL8.2-10.2FCentervilleerum or plasma chloride measurement (moles/volume)Ordered By: Aron Trevino on 21-96-6553Xvagrxik [Moles/Vol]104 mmol/V75-846VvdvsxwxgMercy Health Kings Mills Hospital Serum or plasma creatine kinase MB (CKMB)/total creatine kinase (CK) ratio by calculaOrdered By: Aron Trevino on 75-73-6991KM.MB Calc [Catalytic fraction] TNPMercy Health Kings Mills HospitalComment on above:Test not performedSerum or plasma glucose measurement (mass/volume)Ordered By: Aron Trevino on 61-10-3129Ufvktpx [Mass/Vol]222 mg/iT26-750GvwnacbyxMercy Health Kings Mills Hospital Comment on above:ADA recommended reference rangeRandom Glucose Reference Range is dependent on time and content of last meal. Glucose of more than 200 mg/dL in a nonstressed, ambulatory subject supports the diagnosisof Diabetes Mellitus. Serum or plasma potassium measurement (moles/volume)Ordered By: Aron Trevino on 44-58-2350Ddrgzlrda [Moles/Vol]3.0 mmol/L3.5-5.1FCentervilleerum or plasma sodium measurement (moles/volume)Ordered By: Aron Trevino on 47-59-9010Sryglg [Moles/Vol]134 mmol/P341-110CnpmuqqsoMercy Health West Hospitalerum or plasma total carbon dioxide measurement (moles/volume) Ordered By: Aron Trevino on 46-03-1325CD8 [Moles/Vol]21.6 mmol/L22.0-30.0 [facility] Hospitalerum or plasma urea nitrogen measurement (mass/volume)Ordered By: Aron Trevino on 47-26-7008Iofu nitrogen [Mass/Vol]5 mg/dL9-23[facility] HospitalTroponin I.cardiac [Mass/volume] in Serum or Plasma by High sensitivity methodOrdered By: Aron Trevino on 58-74-2633Kadlmhya I.cardiac High sensitivity method [Mass/Vol]< 3 pg/mL0-15 [facility] HospitalWBC Auto (Bld) [#/Vol]Ordered By: Aron Trevino on 86-13-3088LZW (Bld) [#/Vol]12.4 10*3/uL3.8-11.6FGlenbeigh HospitalCBC AUTO DIFFon 13-22-2792AWAU #0.0 103/ulNormal0.0-0.1[facility] HospitalComment on above:Performed By: #### PT, PTT #### [facility] [address] [place] [address] Dr. Tati ReillyBasophils/100 WBC (Bld)0.3 %Normal0.2-2.0[facility] Comment on above:Performed By: #### PT, PTT #### [facility] [address] [place] [address] Dr. Tati Chance #0.1 103/ulNormal0.0-0.7The [facility] CenterComment on above: Performed By: #### PT, PTT #### [facility] [address] [place] [address] Dr. Tati Bettencourtosinophils/100 WBC (Bld)1.9 %Normal0.9-7.0[facility] Comment on above:Performed By: #### PT, PTT #### [facility] [address] [place] [address] Dr. Tati Bettencourtrythrocyte distribution width (RBC) [Ratio]14.3 %Acfzaa97.0-15.0 [facility] HospitalComment on above:Performed By: #### PT, PTT #### [facility] [address] [place] [address] Dr. Tati ReillyHematocrit (Bld) [Volume fraction]32.8 %Critically low36.0-48.0 [facility] HospitalComment on above:Performed By: #### PT, PTT #### [facility] [address] [place] [address] Dr. Tati ReillyHemoglobin (Bld) [Mass/Vol]12.1 g/rTLjrqth41.0-16.0[facility] HospitalComment on above:Performed By: #### PT, PTT #### [facility] [address] [place] [address] Dr. Tati Brar #0.01 10e3/ulNormal0.00-0.03The [facility] on above:Performed By: #### PT, PTT #### [facility] [address] [place] [address] Dr. Tati Brar %0.1 %Normal0.0-0.5The [facility] CenterCommunising memorial hospital on above: Performed By: #### PT, PTT #### [facility] [address] [place] [address] Dr. Tati Cruz #2.7 103/ulNormal1.2-3.8The [facility] CenterComment on above:Performed By: #### PT, PTT #### [facility] [address] [place] [address] Dr. Tati Landonhocytes/100 WBC (Bld)39.6 %Uyiljj94.5-60.0The [facility] on above:Performed By: #### PT, PTT #### [facility] [address] [place] [address] Dr. Tati OdenUAL DIFF REQNONormalThe [facility] CenterCommunising memorial hospital on above: Performed By: #### PT, PTT #### [facility] [address] [place] [address] Dr. Tati Sarmiento (RBC) [Entitic mass]29.4 daTzonhj01.7-34.0The [facility] on above:Performed By: #### PT, PTT #### [facility] [address] [place] [address] Dr. Tati Chavarria (RBC) [Mass/Vol]36.9 g/dLCritically high29.9-35.2The [facility] on above:Performed By: #### PT, PTT #### [facility] [address] [place] [address] Dr. Tati Chavarria (RBC) [Entitic vol]79.6 fLCritically low81.0-99.0The [facility] CenterComment on above:Performed By: #### PT, PTT #### [facility] [address] [place] [address] Dr. Tati Leahy #0.3 103/ulNormal0.3-0.8The The Jewish Hospitalment on above:Performed By: #### PT, PTT #### [facility] [address] [place] [address] Dr. Tati Omerocytes/100 WBC (Bld)4.6 %Normal1.7-12.0The [facility] Comment on above:Performed By: #### PT, PTT #### [facility] [address] [place] [address] Dr. Tati aDvis #3.6 103/ulNormal1.4-6.5The The [facility] Hospitalment on above:Performed By: #### PT, PTT #### [facility] [address] [place] [address] Dr. Tati Herediautrophils/100 WBC (Bld)53.5 %Icrzbp65.0-75.0The [facility] CenterComment on above:Performed By: #### PT, PTT #### [facility] [address] [place] [address] Dr. Tati Xavierlet mean volume (Bld) [Entitic vol]8.8 fLCritically low 9.5-13.5The [facility] Hospitalment on above:Performed By: #### PT, PTT #### [facility] [address] [place] [address] Dr. Tati ReillyPLT357 103/nxWobjck393-831Dpa The [facility] Hospitalment on above: Performed By: #### PT, PTT #### [facility] [address] [place] [address] Dr. Tati ReillyRBC4.12 106/ulCritically low4.20-5.40The [facility] on above:Performed By: #### PT, PTT #### [facility] [address] [place] [address] Dr. Tati ReillyWBC6.7 103/ulNormal4.0-11.0The [facility] Hospitalment on above: Performed By: #### PT, PTT #### [facility] [address] [address] [address] Tati Saul PROFILEon 06-81-9179Tibeixb [Mass/Vol]3.5 g/dLNormal3.4-5.0 The [facility] CenterComment on above:Performed By: #### LIVER, BMP #### [facility] [address] [place] [address] Dr. Tati ReillyAlbumin/Globulin [Mass ratio]0.9 {ratio}NormalThe [facility] Medical CenterComment on above:Performed By: #### LIVER, BMP #### [facility] [address] [place] [address] Dr. Tati Mai [Catalytic activity/Vol]77 U/HCapmtj47-019Dxp [facility] CenterComment on above:Performed By: #### LIVER, BMP #### [facility] [address] [place] [address] Dr. Tati Mullen [Catalytic activity/Vol]22 U/UAychzq17-21Hmb [facility] CenterComment on above:Performed By: #### LIVER, BMP #### [facility] [address] [place] [address] Dr. Tati Lee [Catalytic activity/Vol]18 U/KFyahsa86-11Qef [facility] Hospitalment on above:Performed By: #### LIVER, BMP #### [facility] [address] [place] [address] Dr. Tati Shultz, CONJUGATED0.1 mg/dLNormal0.0-0.2The [facility] Comment on above:Performed By: #### LIVER, BMP #### [facility] [address] [place] [address] Dr. Tati Casillasirubin [Mass/Vol]0.2 mg/dLNormal0.2-1.0The [facility] Comment on above:Performed By: #### LIVER, BMP #### [facility] [address] [place] [address] Dr. Tati ReillyGlobulin (S) [Mass/Vol]3.9 g/dLNormalThe [facility] CenterComment on above:Performed By: #### LIVER, BMP #### [facility] [address] [place] [address] Dr. Tati ReillyProtein [Mass/Vol]7.4 g/dLNormal6.4-8.2[facility] Comment on above:Performed By: #### LIVER, BMP #### [facility] [address] [place] [address] Dr. Tati ReillyPROF CHEM 8 (BAS METB)on 00-87-5858Uwoij gap [Moles/Vol]14.4 mmol/LNormalOhio State East HospitalComment on above:Performed By: #### LIVER, BMP #### [facility] [address] [place] [address] Dr. Tati ReillyCalcium [Mass/Vol]8.8 mg/dLNormal8.5-10.1The [facility] Comment on above:Performed By: #### LIVER, BMP #### [facility] [address] [place] [address] Dr. Tati ReillyChloride [Moles/Vol]103 mmol/QBunofi93-371Rzu [facility] Comment on above:Performed By: #### LIVER, BMP #### [facility] [address] [place] [address] Dr. Tati ReillyCO2 [Moles/Vol]24.6 mmol/KOxrclp91.0-32.0[facility] Comment on above:Performed By: #### LIVER, BMP #### [facility] [address] [place] [address] Dr. Tati ReillyCreatinine [Mass/Vol]0.61 mg/dLNormal0.55-1.02The [facility] Medical CenterComment on above:Performed By: #### LIVER, BMP #### [facility] [address] [place] [address] Dr. Duffy ChangEGFR-AF CITIZEN [place]>60Normal>=60The [facility] Medical CenterComment on above:Performed By: #### LIVER, BMP #### [facility] [address] [address] [address] Tati BettencourtGFR-NON AF CITIZEN OF [place]>60Normal>=60The The [facility] Hospitalment on above:Performed By: #### LIVER, BMP #### [facility] [address] [place] [address] Dr. Tati ReillyGlucose [Mass/Vol]173 mg/dLCritically fgnz71-527Hpj [facility] CenterComment on above:Performed By: #### LIVER, BMP #### [facility] [address] [place] [address] Dr. Tati ReillyPotassium [Moles/Vol]3.0 mmol/LCritically low3.5-5.1The [facility] CenterCommunising memorial hospital on above:Performed By: #### LIVER, BMP #### [facility] [address] [place] [address] Dr. Tati ReillySodium [Moles/Vol]139 mmol/LWvceem211-376Dsr [facility] Comment on above:Performed By: #### LIVER, BMP #### [facility] [address] [place] [address] Dr. Tati ReillyUrea nitrogen [Mass/Vol]7.0 mg/dLNormal7.0-18.0The [facility] on above:Performed By: #### LIVER, BMP #### [facility] [address] [place] [address] Dr. Tati Beebe nitrogen/Creatinine [Mass ratio]11.5 mg/mgNormalThe [facility] Children'S Hospital Medical CenterComment on above:Performed By: #### LIVER, BMP #### [facility] [address] [place] [address] Dr. Tati ReillyPROTIMEon 03-15-4400LJT Coag (PPP) [Relative time]0.97 {INR} NormalThe [facility]S Hospital Medical CenterCommunising memorial hospital on above:Performed By: #### PTT, PT #### [facility] [address] [place] [address] Dr. Tati Feliciano GUIDELINESSEE BELOWUniversity Hospitals Elyria Medical CenterComment on above:Result Comment: DESIRED INR: 2.0 - 3.0 CONDITIONS NOT LISTED BELOW 2.5 - 3.5 FOR PROSTHETIC HEART VALVE REPLACEMENT 2.5 - 3.5 RECURRENT THROMBOSIS Performed By: #### PTT, PT #### [facility] [address], [place] [address] Dr. Tati ReillyPT Coag (PPP) [Time]10.3 sNormal9.0-11.6The [facility] Comment on above:Performed By: #### PTT, PT #### [facility] [address], [place] [address] Dr. Tati Willis 89-89-9704sMMW Coag (Bld) [Time]29.1 sMtzhya03.3-36.2The [facility] Hospital Medical CenterComment on above:Performed By: #### PTT, PT #### [facility] [address], [place] [address] Dr. Tati ReillyActivated partial thromboplastin time (aPTT) in platelet poor plasma by coagulation aOrdered By: Rigoberto Montano on 25-46-3076hDVJ Coag (PPP) [Time]33.3 s25.1-36.5FGlenbeigh HospitalBasophils Auto (Bld) [#/Vol]Ordered By: Rigoberto Montano on 66-61-1520Zpvrhhdpb (Bld) [#/Vol]0.1 10*3/uL 0.0-0.2FGlenbeigh HospitalBasophils/100 WBC Auto (Bld)Ordered By: Rigoberto Montano on 90-62-4698Ltxjebxoe/100 WBC (Bld)0.8 %.[facility] HospitalEosinophils Auto (Bld) [#/Vol]Ordered By: Rigoberto Montano on 12-08-2022 Eosinophils (Bld) [#/Vol]0.2 10*3/uL0.0-0.45[facility] Eosinophils/100 WBC Auto (Bld)Ordered By: Rigoberto Montano on 12-08-2022 Eosinophils/100 WBC (Bld)2.4 %.[facility] HospitalErythrocyte distribution width Auto (RBC) [Ratio]Ordered By: Rigoberto Montano on 12-08-2022 Erythrocyte distribution width (RBC) [Ratio]16.1 %11.9-15.3FGlenbeigh HospitalHematocrit Auto (Bld) [Volume fraction]Ordered By: Rigoberto Montano on 43-54-9073Ptymlhsixj (Bld) [Volume fraction]34.8 %34.0-46.4FGlenbeigh HospitalHemoglobin [Mass/volume] in BloodOrdered By: Rigoberto Montano on 84-34-9695Krxjgfwkxg (Bld) [Mass/Vol]11.5 g/dL11.8-15.4FGlenbeigh HospitalLaboratory - CoagulationOrdered By: Rigoberto Montano on 15-95-7427YF Coag (PPP) [Time]11.4 s9.0-12.9[facility] HospitalLeukocytes [#/volume] corrected for nucleated erythrocytes in Blood by Automated coun Ordered By: Rigoberto Montano on 58-62-6212RDQ corrected for nucl RBC Auto (Bld) [#/Vol]9.8 10*3/uL3.8-11.6FGlenbeigh HospitalLymphocytes Auto (Bld) [#/Vol]Ordered By: Rigoberto Montano on 34-20-7843Muirstrynjb (Bld) [#/Vol]3.7 10*3/uL1.00-4.8[facility] HospitalLymphocytes/100 WBC Auto (Bld) Ordered By: Rigoberto Montano on 72-68-8989Tzrgtkqmqhl/100 WBC (Bld)38.1 %.[facility] HospitalMCH Auto (RBC) [Entitic mass]Ordered By: Rigoberto Montano on 14-74-7439RXD (RBC) [Entitic mass]29.2 pg24.7-34.3FGlenbeigh HospitalMCHC Auto (RBC) [Mass/Vol]Ordered By: Rigoberto Montano on 79-30-1531AOUO (RBC) [Mass/Vol]33.0 g/dL32.0-35.0[facility] HospitalMCV Auto (RBC) [Entitic vol]Ordered By: Rigoberto Montano on 21-10-5923TXT (RBC) [Entitic vol]88.4 fL 80-100[facility] HospitalMonocytes Auto (Bld) [#/Vol]Ordered By: Rigoberto Montano on 68-76-3226Znsjpyzae (Bld) [#/Vol]0.5 10*3/uL0.0-0.8[facility] HospitalMonocytes/100 WBC Auto (Bld)Ordered By: Rigoberto Montano on 77-41-1949Wwwvzahul/100 WBC (Bld)5.3 %.[facility] Neutrophils Auto (Bld) [#/Vol]Ordered By: Rigoberto Montano on 55-89-1616Lsjcridbkvz (Bld) [#/Vol]5.2 10*3/uL1.8-7.7FGlenbeigh HospitalNeutrophils/100 WBC Auto (Bld)Ordered By: Rigoberto Montano on 23-44-7662Irmjgpzuprp/100 WBC (Bld)53.4 %.[facility] HospitalNucleated erythrocytes [Presence] in Blood by Automated countOrdered By: Rigoberto Montano on 84-02-9797Ompzznvmd RBC Auto Ql (Bld)0.1 /100{WBC}0-0.5FGlenbeigh HospitalPlatelet mean volume Auto (Bld) [Entitic vol]Ordered By: Rigoberto Montano on 45-70-1435Bbvkxbxa mean volume (Bld) [Entitic vol]8.0 fL6.3-10.7FGlenbeigh Hospital Platelet poor plasma international normalized ratio (INR) by coagulation assay (relatOrdered By: Rigoberto Montano on 72-67-8486TCO Coag (PPP) [Relative time]1.0 {INR}[facility] HospitalComment on above:INR Therapeutic Range A) Pre- [...] Auto (Bld) [#/Vol]Ordered By: Rigoberto Montano on 49-51-9792Rxstgcaao (Bld) [#/Vol] 362 10*3/mN165-841XhglnfieuMercy Health Kings Mills HospitalRBC Auto (Bld) [#/Vol]Ordered By: Rigoberto Montano on 12-59-1346EFP (Bld) [#/Vol]3.94 10*6/uL3.60-5.00[facility] HospitalTSH DL <= 0.005 mIU/L QnOrdered By: Rigoberto Montano on 53-05-7968CIB Qn1.43 m[IU]/L0.45-5.33[facility] HospitalThyroxine (T4) free [Mass/volume] in Serum or PlasmaOrdered By: Rgioberto Montano on 12-08-2022 Free T4 [Mass/Vol]0.75 ng/dL0.61-1.12[facility] HospitalWBC Auto (Bld) [#/Vol]Ordered By: Rigoberto Montano on 30-11-3887GSR (Bld) [#/Vol]9.8 10*3/uL 3.8-11.6FGlenbeigh HospitalPap IG,rfx Aptima HPV all pthon 12-07-2022..NormalThe Cincinnati Children'S Hospital Medical CenterComment on above:Performed By: #### PT, PTT #### [facility] [address] [place] [address] Dr. Tati ReillyDIAGNOSIS:CommentNormOhioHealth Nelsonville Health Centerment on above: Result Comment: NEGATIVE FOR INTRAEPITHELIAL LESION OR MALIGNANCY. PREDOMINANCE OF COCCOBACILLI CONSISTENT WITH SHIFT IN VAGINAL PATRIC IS PRESENT.Performed By: #### PT, PTT #### [facility] [address] [place] [address] [address] Tati ReillyMethodology:CommentNormOhioHealth Nelsonville Health Centerment on above: Result Comment: This liquid based ThinPrep(R) pap test was screened with the use of an image guided system.Performed By: #### PT, PTT #### [facility] [address] [address] [address] Tati ReillyNote:CommentNoOhioHealth Grady Memorial Hospitalment on above:Result Comment: The Pap smear is a screening test designed to aid in the detection of premalignant and malignant conditions of the uterine cervix. It is not a diagnostic procedure and should not be used as the sole means of detecting cervical cancer. Both false-positive and false-negative reports do occur. .Performed By: #### PT, PTT #### [facility] [address] [place] [address] Dr. Tati ReillyPerformed by:CommentKindred Healthcare on above: Result Comment: Gladys Valerio, Radial Arm Saw Operator (ASCP)Performed By: #### PT, PTT #### [facility] [address] [place] [address] Dr. Tati ReillyReflex Criteria:[facility] on above:Result Comment: The HPV DNA reflex criteria were not met with this specimen result therefore, no HPV testing was performed. .Performed By: #### PT, PTT #### [facility] [address] [address] [address] Tati ReillySpecimen adequacy:[facility] on above:Result Comment: Satisfactory for evaluation. Endocervical and/or squamous metaplastic cells (endocervical component) are present.Performed By: #### PT, PTT #### [facility] [address] [place] [address] Dr. Tati ReillyGlucose mean value [Mass/volume] in Blood Estimated from glycated hemoglobinOrdered By: Rigoberto Montano on 78-29-2795Pngjsvq glucose Estimated from glycated hemoglobin (Bld) [Mass/Vol]140 mg/dLMercy Health Kings Mills Hospital Hemoglobin A1c percentageOrdered By: Rigoberto Montano on 87-76-8653MbQ1y (Bld) [Mass fraction]6.5 %4.3-5.6FGlenbeigh HospitalComment on above:Increased risk for diabetes: 5.7 - 6.4diabetes: >6.4glycemic control for adults with diabetes: <7.0Activated partial thromboplastin time (aPTT) in platelet poor plasma by coagulation aOrdered By: Hanane Rondon on 46-18-8745gOPS Coag (PPP) [Time]34.9 s25.1-36.5FGlenbeigh HospitalAnisocytosis LM Ql (Bld) Ordered By: Hanane Rondon on 34-02-4826Uoweriamftir Ql (Bld)SlightMercy Health Kings Mills HospitalBasophils Auto (Bld) [#/Vol]Ordered By: Hanane Rondon on 65-56-7008Ynelscflr (Bld) [#/Vol]0.1 10*3/uL0.0-0.2FGlenbeigh HospitalBasophils/100 WBC Auto (Bld)Ordered By: Hanane Rondon on 09-21-2022 Basophils/100 WBC (Bld)1.1 %.[facility] HospitalCreatine kinase [Enzymatic activity/volume] in Serum or PlasmaOrdered By: Hanane Rondon on 17-11-4669AR [Catalytic activity/Vol]82 U/Q63-664ZigmyvpzpMercy Health Kings Mills HospitalCreatinine and Glomerular filtration rate.predicted panel (S/P/Bld)Ordered By: Hanane Rondon on 47-84-2439Gwokxydjvo [Mass/Vol]0.63 mg/dL0.44-1.03 [facility] HospitalEosinophils Auto (Bld) [#/Vol]Ordered By: Hanane Rondon on 25-18-0031Vorsxsmszyn (Bld) [#/Vol]0.2 10*3/uL0.0-0.45 [facility] HospitalEosinophils/100 WBC Auto (Bld)Ordered By: Hanane Rondon on 99-88-3367Kzztwcxmcdh/100 WBC (Bld)2.3 %.[facility] HospitalErythrocyte distribution width Auto (RBC) [Ratio]Ordered By: Hanane Rondon on 23-62-8913Zstxvbcejkp distribution width (RBC) [Ratio]15.4 % 11.9-15.3FGlenbeigh HospitalEstimated glomerular filtration rate (GFR) non- AmericanOrdered By: Hanane Rondon on 52-88-5837ETE/1.73 sq M.predicted among non-blacks MDRD (S/P/Bld) [Vol rate/Area]> 60 mL/MinMercy Health Kings Mills HospitalHematocrit Auto (Bld) [Volume fraction]Ordered By: Hanane Rondon on 16-57-0528Wackkldmzn (Bld) [Volume fraction]34.8 %34.0-46.4 [facility] HospitalHemoglobin [Mass/volume] in BloodOrdered By: Hanane Rondon on 60-75-0395Afilnwphkd (Bld) [Mass/Vol]11.4 g/dL11.8-15.4 [facility] HospitalLaboratory - Chemistry and Chemistry - challengeOrdered By: Hanane Rondon on 38-66-0671Xkxwizzphku peptide B (Bld) [Mass/Vol]5.0 pg/mL5-100[facility] HospitalLaboratory - CoagulationOrdered By: Hanane Rondon on 57-69-3627GK Coag (PPP) [Time]11.6 s 9.0-12.9[facility] HospitalLaboratory - Hematology and Cell counts Ordered By: Hanane Rondon on 13-66-9438Pkapzrerf RBC/100 WBC (Bld) [Ratio]0.1 %0-0.5FGlenbeigh HospitalLeukocytes [#/volume] in Blood by Automated countOrdered By: Hanane Rondon on 58-16-1195GYS (Bld) [#/Vol]9.5 10*3/uL4.5-11.0[facility] HospitalLymphocytes Auto (Bld) [#/Vol] Ordered By: Hanane Rondon on 13-10-8881Wkaukpzyrmg (Bld) [#/Vol]4.1 10*3/uL 1.00-4.8[facility] HospitalLymphocytes/100 WBC Auto (Bld)Ordered By: Hanane Rondon on 43-38-7464Xgwogeusxdu/100 WBC (Bld)43.[address] Auto (RBC) [Entitic mass]Ordered By: Hanane Rondon on 89-00-5033EWQ (RBC) [Entitic mass]28.8 pg24.7-34.3FMetroHealth Parma Medical Center Auto (RBC) [Mass/Vol]Ordered By: Hanane Rondon on 50-07-8814OVWA (RBC) [Mass/Vol]32.6 g/dL32.0-35.0[facility] HospitalMCV Auto (RBC) [Entitic vol]Ordered By: Hanane Rondon on 55-13-4785JMA (RBC) [Entitic vol]88.1 pS70-344RfzoxlaqwMercy Health Kings Mills HospitalMonocytes Auto (Bld) [#/Vol] Ordered By: Hanane Rondon on 99-61-7501Wlgwgsiwp (Bld) [#/Vol]0.6 10*3/uL 0.0-0.8[facility] HospitalMonocytes/100 WBC Auto (Bld)Ordered By: Hanane Rondon on 99-00-6197Sxrhtxmtb/100 WBC (Bld)6.1 %.[facility] HospitalNeutrophils Auto (Bld) [#/Vol]Ordered By: Hanane Rondon on 97-57-7521Nbdgwhdqeuq (Bld) [#/Vol]4.5 10*3/uL1.8-7.7FGlenbeigh HospitalNeutrophils/100 WBC Auto (Bld)Ordered By: Hanane Rondon on 09-21-2022 Neutrophils/100 WBC (Bld)47.5 %.[facility] HospitalNo Panel InformationOrdered By: Hanane Rondon on 33-27-3275Kocsytfoj GFR ()> 60 mL/MinMercy Health Kings Mills HospitalComment on above:GFR estimated reference range: According to KDOQI guidelines, <60 ml/min/1.73m2 is sufficient todiagnose a patient with chronic kidney disease.Pharmacy Creatinine Clearance (Btrf723.43[facility] HospitalPlatelet adequacy [Presence] in Blood by Light microscopyOrdered By: Hanane Rondon on 09-21-2022 Platelets LM Ql (Bld)NormalNormalMercy Health Kings Mills HospitalPlatelet mean volume Auto (Bld) [Entitic vol]Ordered By: Hanane Rondon on 00-31-6655Fvurxqgd mean volume (Bld) [Entitic vol]8.3 fL6.3-10.7FGlenbeigh Hospital Platelet morphology finding [Identifier] in BloodOrdered By: Hanane Rondon on 28-74-1890Rtqrarbs morphology finding Nom (Bld)NormalNormalMercy Health Kings Mills HospitalPlatelet poor plasma international normalized ratio (INR) by coagulation assay (relatOrdered By: Hanane Rondon on 17-44-9904CGI Coag (PPP) [Relative time]1.0 {INR}[facility] HospitalComment on above:INR Therapeutic Range A) Pre- [...] Auto (Bld) [#/Vol]Ordered By: Hanane Rondon on 69-86-2973Fhedqrmqq (Bld) [#/Vol]393 10*3/iC941-120TbbjrantuMercy Health Kings Mills HospitalRBC Auto (Bld) [#/Vol] Ordered By: Hanane Rondon on 07-42-2871IOQ (Bld) [#/Vol]3.95 10*6/uL3.60-5.00 [facility] HospitalRB morphologyOrdered By: Hanane Rondon on 36-94-0840UXB morphology finding Nom (Bld)N/AFGlenbeigh Hospital Serum or plasma anion gap determinationOrdered By: Hanane Rondon on 09-21-2022 Anion gap [Moles/Vol]13.2 mmol/L6.0-15.0[facility] Hospitalerum or plasma calcium measurement (mass/volume)Ordered By: Hanane Rondon on 41-82-3203Jpbwjtq [Mass/Vol]9.1 mg/dL8.2-10.2FGlenbeigh Hospital Serum or plasma chloride measurement (moles/volume)Ordered By: Hanane Rondon on 63-22-7853Vuudnsks [Moles/Vol]103 mmol/J01-548RbrkzwabtMercy Health West Hospitalerum or plasma creatine kinase MB (CKMB)/total creatine kinase (CK) ratio by calculaOrdered By: Hanane Rondon on 65-59-8314HN.MB Calc [Catalytic fraction]1.2 %0.00-2.50[facility] Hospitalerum or plasma creatine kinase MB measurement (mass/volume)Ordered By: Hanane Rondon on 09-21-2022 CK.MB [Mass/Vol]1.0 ng/mL0.6-6.3FCentervilleerum or plasma glucose measurement (mass/volume)Ordered By: Hanane Rondon on 09-21-2022 Glucose [Mass/Vol]148 mg/kU06-686MyccgisaiMercy Health Kings Mills HospitalComment on above:ADA recommended reference rangeRandom Glucose Reference Range is dependent on time and content of last meal. Glucose of more than 200 mg/dL in a nonstressed, ambulatory subject supports the diagnosisof Diabetes Mellitus.Serum or plasma potassium measurement (moles/volume)Ordered By: Hanane Rondon on 35-95-8779Eeqrloigw [Moles/Vol]3.2 mmol/L3.5-5.1FCentervilleerum or plasma sodium measurement (moles/volume)Ordered By: Hanane Rondon on 68-00-3604Rqfnfr [Moles/Vol]136 mmol/E208-830EgfqlhfcfMercy Health West Hospitalerum or plasma total carbon dioxide measurement (moles/volume) Ordered By: Hanane Rondon on 24-77-7454CZ3 [Moles/Vol]23.0 mmol/L22.0-30.0 [facility] Hospitalerum or plasma urea nitrogen measurement (mass/volume)Ordered By: Hanane Rondon on 84-58-0201Uasc nitrogen [Mass/Vol]9 mg/dL08-17[facility] HospitalTroponin I.cardiac [Mass/volume] in Serum or Plasma by High sensitivity methodOrdered By: Hanane Rondon on 59-85-0319Fbbqbeow I.cardiac High sensitivity method [Mass/Vol]< 3 pg/mL0-15 [facility] HospitalUrine culture routineOrdered By: Ga Marques on 14-50-0400Hetuorhn identified Cx Nom (U)2 DaysMercy Health Kings Mills HospitalAutomated erythrocytes count in urine sediment (number/area)Ordered By: Ga Marques on 35-68-3147STX Auto (Urine sed) [#/Area]3-4 [HPF]0-4FGlenbeigh HospitalAutomated leukocytes count in urine sediment (number/area)Ordered By: Ga Marques on 65-53-6490NYP Auto (Urine sed) [#/Area] 3-4 [HPF]0-4FGlenbeigh HospitalAutomated urine hyaline casts count (number/volume)Ordered By: Ga Marques on 60-93-2424Kxybury casts Auto (U) [#/Vol]None seen [LPF]0-1FGlenbeigh HospitalBilirubin Test strip Ql (U)Ordered By: Ga Marques on 12-23-8545Bqhbfufdm Ql (U)NegativeNegative [facility] HospitalCasts typing in urine sediment by light microscopyOrdered By: Ga Marques on 16-12-4663Hlzsc LM Nom (Urine sed)None seen [LPF]None [facility] SystemColor Auto (U)Ordered By: Ga Marques on 81-50-8419Wrbdh (U)YellowYellowMercy Health Kings Mills Hospital Ketones Auto test strip (U) [Mass/Vol]Ordered By: Ga Marques on 08-15-2022 Ketones (U) [Mass/Vol]TraceNegativeMercy Health Kings Mills HospitalNitrite Test strip Ql (U)Ordered By: Ga Marques on 58-17-9235Ytpsonn Ql (U)Negative NegativeMercy Health Kings Mills HospitalProtein Auto test strip (U) [Mass/Vol] Ordered By: Ga Marques on 06-87-2345Wlwcror (U) [Mass/Vol]Trace mg/dLNegative [facility] Hospitalpecific gravity Auto test strip (U) [Rel density]Ordered By: Ga Marques on 34-56-4389Nvgakqew gravity (U) [Rel density] 1.0251.001-1.030[facility] Hospitalquamous epithelial cells detection in urine sediment by light microscopyOrdered By: Ga Marques on 09-87-9003Kyempfjztk cells.squamous LM Ql (Urine sed)5-9 [HPF]0-2FGlenbeigh HospitalUrine bacteria detection by automated methodOrdered By: Ga Marques on 78-40-7190Dbpqfbzh Auto Ql (U)None seenNone [facility] SystemUrine clarity by refractometry automatedOrdered By: Ga Marques on 52-42-0572Hhnacwy Refractometry automated (U)ClearClearFGlenbeigh HospitalUrine glucose measurement by automated test strip (mass/volume)Ordered By: Ga Marques on 47-04-3342Repzbpj Auto test strip (U) [Mass/Vol]Normal mg/dLNormMartin Memorial HospitalUrine hemoglobin detection by automated test stripOrdered By: Ga Marques on 08-15-2022 Hemoglobin Auto test strip Ql (U)NegativeNegativeMercy Health Kings Mills HospitalUrine leukocyte esterase detection by automated test stripOrdered By: Ga Marques on 44-17-8859Opojktcmn esterase Auto test strip Ql (U)Negative NegativeMercy Health Kings Mills HospitalUrobilinogen Auto test strip (U) [Mass/Vol]Ordered By: Ga Marques on 45-19-4113Cjputoxvffww (U) [Mass/Vol] Normal mg/dLNoOur Lady of Mercy HospitalpH Auto test strip (U)Ordered By: Ga Marques on 31-61-1902uZ (U)5.5 [pH]5.0-9.0[facility] HospitalAlbumin [Mass/volume] in Serum or PlasmaOrdered By: Ga Marques on 77-16-1737Jlwqicj [Mass/Vol]3.3 g/dL3.2-5.5FGlenbeigh Hospital Basophils Auto (Bld) [#/Vol]Ordered By: Ga Marques on 04-64-2041Tjnzahhre (Bld) [#/Vol]0.1 10*3/uL0.0-0.2FGlenbeigh HospitalBasophils/100 WBC Auto (Bld)Ordered By: Ga Marques on 91-56-9474Vgfxbttwq/100 WBC (Bld)0.8 % .[facility] HospitalBlood hemoglobin measurement (mass/volume) Ordered By: Ga Marques on 45-95-1823Gvsvtbifwc (Bld) [Mass/Vol]12.5 g/dL 11.8-15.4FGlenbeigh HospitalBlood leukocytes automated count (number/volume)Ordered By: Ga Marques on 57-92-8373QGG (Bld) [#/Vol]9.3 10*3/uL4.5-11.0[facility] HospitalCholesterol [Mass/volume] in Serum or PlasmaOrdered By: Ga Marques on 63-00-0261Behslyksfxr [Mass/Vol]189 mg/xM669-728VwxfjqwtnMercy Health Kings Mills HospitalComment on above:Chol less than 200 mg/dl low risk Chol 201-239 mg/dl borderline risk Chol 240 mg/dl and greater high riskChol less than 200 mg/dl low riskChol 201- 239 mg/dl borderline riskChol 240 mg/dl and greater high riskCholesterol in LDL Calc [Mass/Vol]Ordered By: Ga Marques on 74-60-4957Gftttnkzuxp in LDL [Mass/Vol]143 mg/dL0-100[facility] HospitalComment on above:LDL ATP III CLASSIFICATION LDL less than 100 mg/dL Optimal LDL 100-129 mg/dL Near or above optimal LDL 130-159 mg/dL Borderline high LDL 160-189 mg/dL High LDL greater than 189 mg/dL Very highLDL ATP III CLASSIFICATIONLDL less than 100 mg/dL OptimalLDL 100-129 mg/dL Near or above skvnmurFEM126-968 mg/dL Borderline highLDL 160-189 mg/dL HighLDL greater than 189 mg/dL Very highCholesterol in VLDL Calc [Mass/Vol]Ordered By: Ga Marques on 78-09-9595Gaazanswoug in VLDL [Mass/Vol]15 mg/dLMercy Health Kings Mills HospitalCreatinine and Glomerular filtration rate.predicted panel (S/P/Bld)Ordered By: Ga Marques on 07-21-2022 Creatinine [Mass/Vol]0.58 mg/dL0.44-1.03[facility] Eosinophils Auto (Bld) [#/Vol]Ordered By: Ga Marques on 35-13-7535Iyilvzuqfhl (Bld) [#/Vol]0.2 10*3/uL0.0-0.45[facility] HospitalEosinophils/100 WBC Auto (Bld)Ordered By: Ga Marques on 63-65-4051Qxabjjaojqv/100 WBC (Bld) 2.1 %.[facility] HospitalErythrocyte distribution width Auto (RBC) [Ratio]Ordered By: Ga Marques on 68-65-0929Wxpscbugbyu distribution width (RBC) [Ratio]14.7 %11.9-15.3FGlenbeigh HospitalEstimated glomerular filtration rate (GFR) non- AmericanOrdered By: Ga Marques on 56-87-7879GZO/1.73 sq M.predicted among non-blacks MDRD (S/P/Bld) [Vol rate/Area]> 60 mL/MinMercy Health Kings Mills HospitalGlobulin Calc (S) [Mass/Vol]Ordered By: Ga Marques on 06-61-0834Nnrtubym (S) [Mass/Vol]3.4 g/dL [facility] HospitalHematocrit Auto (Bld) [Volume fraction]Ordered By: Ga Marques on 88-45-3852Ipqrhglgbx (Bld) [Volume fraction]38.0 %34.0-46.4 [facility] HospitalLaboratory - Hematology and Cell countsOrdered By: Ga Marques on 34-80-5223Eumfcmrjm RBC/100 WBC (Bld) [Ratio]0.1 %0-0.5 [facility] HospitalLymphocytes Auto (Bld) [#/Vol]Ordered By: Ga Marques on 96-20-5891Eeiilqoluut (Bld) [#/Vol]4.3 10*3/uL1.00-4.8[facility] HospitalLymphocytes/100 WBC Auto (Bld)Ordered By: Ga Marques on 99-27-7175Psnqtceshuk/100 WBC (Bld)46.6 %.[facility] HospitalH Auto (RBC) [Entitic mass]Ordered By: Ga Marques on 14-70-4171TWZ (RBC) [Entitic mass]29.3 pg24.7-34.3FGlenbeigh HospitalMCHC Auto (RBC) [Mass/Vol]Ordered By: Ga Marques on 12-22-5707RNZA (RBC) [Mass/Vol]32.9 g/dL 32.0-35.0[facility] HospitalMCV Auto (RBC) [Entitic vol]Ordered By: Ga Marques on 78-42-7118UJL (RBC) [Entitic vol]89.1 xJ40-211RcefgqppbMercy Health Kings Mills HospitalMonocytes Auto (Bld) [#/Vol]Ordered By: Ga Marques on 31-66-7541Sizvxlqlw (Bld) [#/Vol]0.6 10*3/uL0.0-0.8[facility] HospitalMonocytes/100 WBC Auto (Bld)Ordered By: Ga Marques on 07-21-2022 Monocytes/100 WBC (Bld)6.1 %.[facility] HospitalNeutrophils Auto (Bld) [#/Vol]Ordered By: Ga Marques on 84-99-3021Kgrsuwfhxmr (Bld) [#/Vol]4.1 10*3/uL1.8-7.7FGlenbeigh HospitalNeutrophils/100 WBC Auto (Bld) Ordered By: Ga Marques on 20-44-1035Qozlsxdvkqp/100 WBC (Bld)44.4 %.[facility] HospitalNo Panel InformationOrdered By: Ga Marques on 12-41-7972Yshikwayi GFR ()> 60 mL/MinMercy Health Kings Mills HospitalComment on above:GFR estimated reference range: According to KDOQI guidelines, <60 ml/min/1.73m2 is sufficient todiagnose a patient with chronic kidney disease.Pharmacy Creatinine Clearance (ChemN/[facility] HospitalPlatelet mean volume Auto (Bld) [Entitic vol]Ordered By: Ga Marques on 57-99-6522Jtcgtxyr mean volume (Bld) [Entitic vol]8.3 fL6.3-10.7FGlenbeigh HospitalPlatelets Auto (Bld) [#/Vol]Ordered By: Ga Marques on 99-75-1629Incdpotky (Bld) [#/Vol]414 10*3/zV843-267LmlqlwpfoMercy Health Kings Mills HospitalProtein [Mass/volume] in Serum or PlasmaOrdered By: Ga Marques on 12-23-8323Vtolbma [Mass/Vol]6.7 g/dL6.1-7.9[facility] HospitalRBC Auto (Bld) [#/Vol]Ordered By: Ga Marques on 99-66-6583XMF (Bld) [#/Vol]4.27 10*6/uL3.60-5.00[facility] Hospitalerum or plasma alanine aminotransferase measurement without P-5'-P (enzymatic activiOrdered By: Ga Marques on [id number] No additional P-5'-P [Catalytic activity/Vol]20 U/L10-60 [facility] Hospitalerum or plasma albumin/globulin mass ratio Ordered By: Ga Marques on [id number]/Globulin [Mass ratio]1.0 {ratio} [facility] Hospitalerum or plasma alkaline phosphatase measurement (enzymatic activity/volume)Ordered By: Ga Marques on 11-28-3073TXE [Catalytic activity/Vol]69 U/I57-07YzguvgfykMercy Health West Hospitalerum or plasma aspartate aminotransferase measurement (enzymatic activity/volume)Ordered By: Ga Marques on 05-31-9345LSP [Catalytic activity/Vol]20 U/U22-34QcktrxbnnMercy Health West Hospitalerum or plasma calcium measurement (mass/volume)Ordered By: Ga Marques on 03-44-3165Npwjxas [Mass/Vol]8.8 mg/dL8.2-10.2FCentervilleerum or plasma chloride measurement (moles/volume) Ordered By: Ga Marques on 87-97-1148Camvvcji [Moles/Vol]107 mmol/L95-114 [facility] Hospitalerum or plasma glucose measurement (mass/volume)Ordered By: Ga Marques on 57-34-0976Uqxjeop [Mass/Vol]95 mg/dL 70-100[facility] HospitalComment on above:ADA recommended reference range Random [...] (HDL) cholesterol measurementOrdered By: Ga Marques on 24-66-4247Eramgmrqudf in HDL [Mass/Vol]31 mg/pY56-29TaojtozdkMercy Health Kings Mills HospitalComment on above:HDL CHOL ATP-III CLASSIFICATION Cardiovascular Risk HDL > or equal to 60 mg/dL LOW HDL < 40 mg/dL HIGHHDL CHOL ATP-III CLASSIFICATION Cardiovascular RiskHDL > or equal to 60 mg/dL LOWHDL < 40 mg/dL HIGHSerum or plasma potassium measurement (moles/volume)Ordered By: Ga Marques on 27-78-8227Glvtgegro [Moles/Vol]3.2 mmol/L3.5-5.1FCentervilleerum or plasma sodium measurement (moles/volume)Ordered By: Ga Marques on 15-98-8130Wsnbxn [Moles/Vol]139 mmol/B284-727XaeibpjqyMercy Health West Hospitalerum or plasma total bilirubin measurement (mass/volume)Ordered By: Ga Marques on 18-93-9208Sythjxrul [Mass/Vol]0.3 mg/dL0.3-1.2FCentervilleerum or plasma total carbon dioxide measurement (moles/volume)Ordered By: Ga Marques on 07-21-2022 CO2 [Moles/Vol]23.3 mmol/L22.0-30.0[facility] Hospitalerum or plasma total cholesterol/high density lipoprotein (HDL) cholesterol mass rat Ordered By: Ga Marques on 89-04-1824Tvmfnxiyjwp.total/Cholesterol in HDL [Mass ratio]6.1 {ratio}<5.0[facility] Hospitalerum or plasma urea nitrogen measurement (mass/volume)Ordered By: Ga Marques on 40-90-7079Xubm nitrogen [Mass/Vol]5 mg/dL9-23[facility] HospitalTS DL <= 0.005 mIU/L QnOrdered By: Ga Marques on 88-34-6048QVF Qn1.11 m[IU]/L0.45-5.33 [facility] HospitalTriglyceride [Mass/volume] in Serum or Plasma Ordered By: Ga Marques on 28-59-4885Gqstbtqyxlac [Mass/Vol]77 mg/iF15-129 [facility] HospitalComment on above:TRIG ATP III CLASSIFICATION TRIG [...] from glycated hemoglobinOrdered By: Rigoberto Montano on 32-79-9404Irbebtg glucose Estimated from glycated hemoglobin (Bld) [Mass/Vol]200 mg/dLMercy Health Kings Mills Hospital Hemoglobin A1c percentageOrdered By: Rigoberto Montano on 74-94-4302XcG9y (Bld) [Mass fraction]8.6 %4.3-5.6FGlenbeigh HospitalComment on above:Increased risk for diabetes: 5.7 - 6.4 diabetes: >6.4 glycemic control for adults with diabetes: <7.0Increased risk for diabetes: 5.7 - 6.4diabetes: >6.4glycemic control for adults with diabetes: <7.0Glucose Glucometer (BldC) [Mass/Vol]Ordered By: Derek Viera on 06-77-7106Zwpxhdk [Mass/Vol]129 mg/dLMercy Health Kings Mills HospitalComment on above:Random Glucose Reference Range is dependent on time and content of last meal. Glucose of more than 200 mg/dL in a nonstressed, ambulatory subject supports the diagnosis of Diabetes Mellitus.HCG ( test) IA.rapid Ql (U)Ordered By: Prateek Lee on 20-56-4581WQD ( test) Ql (U)NegativeMercy Health Kings Mills HospitalCOVID-19 Positive/NegativeOrdered By: Derek Viera on 52-27-6513WQBS-CoV-2 (COVID-19) N gene COYD+probe Ql (Resp)NegativeNegative [facility] HospitalComment on above:Testing for SARS-CoV-2 by RT-PCR This test was developed and its performance characteristics determined by [employer] ([employer] and validated at the [facility]. This test has not been FDA [...] Auto (Bld) [#/Vol]Ordered By: Derek Viera on 05-02-4623Hxwzwyauk (Bld) [#/Vol]0.0 10*3/uL0.0-0.2FGlenbeigh HospitalBasophils/100 WBC Auto (Bld)Ordered By: Derek Viera on 35-91-8710Dayibnehv/100 WBC (Bld)0.7 %.[facility] HospitalBlood hemoglobin measurement (mass/volume)Ordered By: Derek Viera on 05-11-2022 Hemoglobin (Bld) [Mass/Vol]12.1 g/dL11.8-15.4FGlenbeigh Hospital Blood leukocytes automated count (number/volume)Ordered By: Derek Viera on 50-56-0236BIH (Bld) [#/Vol]6.8 10*3/uL4.5-11.0[facility] Creatinine and Glomerular filtration rate.predicted panel (S/P/Bld)Ordered By: Derek Viera on 60-77-9029Wvwmfkvekp [Mass/Vol]0.62 mg/dL0.44-1.03[facility] HospitalEosinophils Auto (Bld) [#/Vol]Ordered By: Derek Viera on 90-90-5784Uwxaajdejrx (Bld) [#/Vol]0.2 10*3/uL0.0-0.45[facility] HospitalEosinophils/100 WBC Auto (Bld)Ordered By: Derek Viera on 56-38-1230Wwajmebgpsj/100 WBC (Bld)2.4 %.[facility] Erythrocyte distribution width Auto (RBC) [Ratio]Ordered By: Derek Viera on 12-64-0266Ykucfagpkpc distribution width (RBC) [Ratio]15.5 %11.9-15.3FGlenbeigh HospitalEstimated glomerular filtration rate (GFR) non- AmericanOrdered By: Derek Viera on 92-00-5337EWZ/1.73 sq M.predicted among non-blacks MDRD (S/P/Bld) [Vol rate/Area]> 60 mL/MinMercy Health Kings Mills HospitalHematocrit Auto (Bld) [Volume fraction]Ordered By: Derek Viera on 14-55-6336Opldeyyqms (Bld) [Volume fraction]36.4 %34.0-46.4FGlenbeigh HospitalLaboratory - Hematology and Cell countsOrdered By: Derek Viera on 33-61-8321Wuhfggntm RBC/100 WBC (Bld) [Ratio]0.1 %0-0.5FGlenbeigh HospitalLymphocytes Auto (Bld) [#/Vol]Ordered By: Derek Viera on 62-22-7015Zkhusktfgxi (Bld) [#/Vol]2.8 10*3/uL1.00-4.8[facility] HospitalLymphocytes/100 WBC Auto (Bld)Ordered By: Derek Viera on 05-11-2022 Lymphocytes/100 WBC (Bld)41.[address] Auto (RBC) [Entitic mass]Ordered By: Derek Viera on 45-83-0793QTN (RBC) [Entitic mass] 29.5 pg24.7-34.3FUC HealthHC Auto (RBC) [Mass/Vol] Ordered By: Derek Viera on 96-89-1808NJKQ (RBC) [Mass/Vol]33.2 g/dL32.0-35.0 [facility] HospitalMCV Auto (RBC) [Entitic vol]Ordered By: Derek Viera on 55-00-5892LJF (RBC) [Entitic vol]88.8 pU22-092NdkltlaviMercy Health Kings Mills HospitalMonocytes Auto (Bld) [#/Vol]Ordered By: Derek Viera on 67-96-0780Nqyugycif (Bld) [#/Vol]0.5 10*3/uL0.0-0.8[facility] HospitalMonocytes/100 WBC Auto (Bld)Ordered By: Derek Viera on 05-11-2022 Monocytes/100 WBC (Bld)7.7 %.[facility] HospitalNeutrophils Auto (Bld) [#/Vol]Ordered By: Derek Viera on 85-65-4518Bzyqzmboucv (Bld) [#/Vol]3.2 10*3/uL1.8-7.7FGlenbeigh HospitalNeutrophils/100 WBC Auto (Bld) Ordered By: Derek Viera on 67-57-0837Eqdhmcnlwcz/100 WBC (Bld)47.3 %.[facility] HospitalNo Panel InformationOrdered By: Derek Viera on 12-16-6952Yyyqivvdz GFR ()> 60 mL/MinMercy Health Kings Mills HospitalComment on above:GFR estimated reference range: According to KDOQI guidelines, <60 ml/min/1.73m2 is sufficient todiagnose a patient with chronic kidney disease.Pharmacy Creatinine Clearance (ChemN/[facility] HospitalPlatelet mean volume Auto (Bld) [Entitic vol]Ordered By: Derek Viera on 89-16-1340Zegrysqo mean volume (Bld) [Entitic vol]8.2 fL6.3-10.7FGlenbeigh HospitalPlatelets Auto (Bld) [#/Vol]Ordered By: Derek Viera on 41-93-7515Rivemwwtf (Bld) [#/Vol]408 10*3/aB825-806XaukndaxcMercy Health Kings Mills HospitalRBC Auto (Bld) [#/Vol]Ordered By: Derek Viera on 35-61-8451NQM (Bld) [#/Vol]4.10 10*6/uL3.60-5.00[facility] Hospitalerum or plasma calcium measurement (mass/volume)Ordered By: Derek Viera on 42-26-7343Cwbijhc [Mass/Vol]9.4 mg/dL8.2-10.2FCentervilleerum or plasma chloride measurement (moles/volume)Ordered By: Derek Viera on 05-11-2022 Chloride [Moles/Vol]104 mmol/T52-259AubxsofqfMercy Health West Hospitalerum or plasma glucose measurement (mass/volume)Ordered By: Derek Viera on 05-11-2022 Glucose [Mass/Vol]148 mg/aD22-907PdmzyxpysMercy Health Kings Mills HospitalComment on above:ADA recommended reference range Random Glucose Reference Range is dependent on time and content of last meal. Glucose of more than 200 mg/dL in a nonstressed, ambulatory subject supports the diagnosis of Diabetes Mellitus.Serum or plasma potassium measurement (moles/volume)Ordered By: Derek Viera on 40-67-9708Cuqmkavny [Moles/Vol]4.0 mmol/L3.5-5.1FCentervilleerum or plasma sodium measurement (moles/volume)Ordered By: Derek Viera on 98-75-8688Hbnkej [Moles/Vol]136 mmol/X520-610QzijzjfcsMercy Health West Hospitalerum or plasma total carbon dioxide measurement (moles/volume)Ordered By: Derek Viera on 18-81-4032RM5 [Moles/Vol]19.6 mmol/L22.0-30.0[facility] Hospitalerum or plasma urea nitrogen measurement (mass/volume)Ordered By: Derek Viera on 05-11-2022 Urea nitrogen [Mass/Vol]5 mg/dL9-23[facility] HospitalAlbumin [Mass/volume] in Serum or PlasmaOrdered By: Ga Marques on 39-25-5301Gismbul [Mass/Vol]3.4 g/dL3.2-5.5FGlenbeigh HospitalBasophils Auto (Bld) [#/Vol]Ordered By: Ga Marques on 09-60-1365Uyhipailq (Bld) [#/Vol]0.2 10*3/uL 0.0-0.2FGlenbeigh HospitalBasophils/100 WBC Auto (Bld)Ordered By: Ga Marques on 96-67-5321Xiavcptwr/100 WBC (Bld)1.6 %[facility] HospitalBlood hemoglobin measurement (mass/volume)Ordered By: Ga Marques on 82-59-8810Etoafgjurh (Bld) [Mass/Vol]12.7 g/dL11.8-15.4FGlenbeigh HospitalBlood leukocytes automated count (number/volume)Ordered By: Ga Marques on 92-64-9836ZBD (Bld) [#/Vol]10.9 10*3/uL4.5-11.0[facility] HospitalCholesterol [Mass/volume] in Serum or PlasmaOrdered By: Ga Marques on 43-43-9218Hgahbxmdimn [Mass/Vol]194 mg/zP985-736XfnzbejhjMercy Health Kings Mills HospitalComment on above:Chol less than 200 mg/dl low riskChol 201-239 mg/dl borderline riskChol 240 mg/dl and greater high riskChol less than 200 mg/dl low risk Chol 201-239 mg/dl borderline risk Chol 240 mg/dl and greater high riskCholesterol in LDL Calc [Mass/Vol]Ordered By: Ga Marques on 64-14-4043Kilntozlnek in LDL [Mass/Vol]132 mg/dL0-100 [facility] HospitalComment on above:LDL ATP III CLASSIFICATIONLDL less than 100 mg/dL OptimalLDL 100-129 mg/dL Near or above iqbllhaQNP515-368 mg/dL Borderline highLDL 160-189 mg/dL HighLDL greater than 189 mg/dL Very high LDL ATP III CLASSIFICATION LDL less than 100 mg/dL Optimal LDL 100-129 mg/dL Near or above optimal LDL 130-159 mg/dL Borderline high LDL 160-189 mg/dL High LDL greater than 189 mg/dL Very highCholesterol in VLDL Calc [Mass/Vol]Ordered By: Ga Marques on 16-29-2254Uemhpijyisa in VLDL [Mass/Vol]16 mg/dLMercy Health Kings Mills HospitalCreatinine [Mass/volume] in UrineOrdered By: Ga Marques on 79-84-5107Kcfbdwdeai (U) [Mass/Vol]122.2 mg/dLMercy Health Kings Mills HospitalComment on above:No reference range establishedCreatinine and Glomerular filtration rate.predicted panel (S/P/Bld)Ordered By: Ga Marques on 03-17-2022 Creatinine [Mass/Vol]0.59 mg/dL0.44-1.03[facility] Eosinophils Auto (Bld) [#/Vol]Ordered By: Ga Marques on 32-56-9115Aexcictmgqs (Bld) [#/Vol]0.2 10*3/uL0.0-0.45[facility] HospitalEosinophils/100 WBC Auto (Bld)Ordered By: Ga Marques on 61-54-8190Ycxlesaimuc/100 WBC (Bld) 1.5 %[facility] HospitalErythrocyte distribution width Auto (RBC) [Ratio]Ordered By: Ga Marques on 68-58-4627Nzfinnwxtlf distribution width (RBC) [Ratio]16.0 %11.9-15.3FGlenbeigh HospitalEstimated glomerular filtration rate (GFR) non- AmericanOrdered By: Ga Marques on 39-50-4185XWR/1.73 sq M.predicted among non-blacks MDRD (S/P/Bld) [Vol rate/Area]> 60 mL/MinMercy Health Kings Mills HospitalGlobulin Calc (S) [Mass/Vol]Ordered By: Ga Marques on 85-58-0031Zfmrrvjz (S) [Mass/Vol]3.5 g/dL [facility] HospitalGlucose mean value [Mass/volume] in Blood Estimated from glycated hemoglobinOrdered By: Ga Marques on 65-46-4831Wbcsqjb glucose Estimated from glycated hemoglobin (Bld) [Mass/Vol]163 mg/dLMercy Health Kings Mills HospitalHematocrit Auto (Bld) [Volume fraction]Ordered By: Ga Marques on 58-64-7724Qbkbhmwkef (Bld) [Volume fraction]38.4 %34.0-46.4FGlenbeigh HospitalHemoglobin A1c percentageOrdered By: Ga Marques on 85-76-8315GaJ4x (Bld) [Mass fraction]7.3 %4.3-5.6FGlenbeigh HospitalComment on above:Increased risk for diabetes: 5.7 - 6.4 diabetes: >6.4 glycemic control for adults with diabetes: <7.0Laboratory - Hematology and Cell countsOrdered By: Ga Marques on 93-55-5366Ltlistvok RBC/100 WBC (Bld) [Ratio] 0.1 %0-0.5FGlenbeigh HospitalLymphocytes Auto (Bld) [#/Vol]Ordered By: Ga Marques on 94-20-8762Fafgwloebfv (Bld) [#/Vol]3.2 10*3/uL1.00-4.8 [facility] HospitalLymphocytes/100 WBC Auto (Bld)Ordered By: Ga Marques on 20-78-8090Fphgqpcpuox/100 WBC (Bld)29.6 %[facility] HospitalH Auto (RBC) [Entitic mass]Ordered By: Ga Marques on 86-19-0079RPX (RBC) [Entitic mass]29.4 pg24.7-34.3FGlenbeigh HospitalMCHC Auto (RBC) [Mass/Vol]Ordered By: Ga Marques on 37-92-3242ZQQQ (RBC) [Mass/Vol]33.0 g/dL32.0-35.0[facility] HospitalMCV Auto (RBC) [Entitic vol]Ordered By: Ga Marques on 27-34-0684BXW (RBC) [Entitic vol]89.0 fG00-312KlydsetvnMercy Health Kings Mills HospitalMonocytes Auto (Bld) [#/Vol]Ordered By: Ga Marques on 09-26-2854Ixfweklea (Bld) [#/Vol]0.3 10*3/uL0.0-0.8[facility] HospitalMonocytes/100 WBC Auto (Bld)Ordered By: Ga Marques on 62-74-5612Ktxoogsgt/100 WBC (Bld)2.8 %[facility] Neutrophils Auto (Bld) [#/Vol]Ordered By: Ga Marques on 15-28-6156Vbbjdtwitmb (Bld) [#/Vol]7.0 10*3/uL1.8-7.7FGlenbeigh HospitalNeutrophils/100 WBC Auto (Bld)Ordered By: Ga Marques on 94-70-8015Pwhcinlahyg/100 WBC (Bld) 64.5 %[facility] HospitalNo Panel InformationOrdered By: Ga Marques on 43-38-9396Frtidqlae GFR ()> 60 mL/MinMercy Health Kings Mills HospitalComment on above:GFR estimated reference range: According to KDOQI guidelines, <60 ml/min/1.73m2 is sufficient todiagnose a patient with chronic kidney disease.Pharmacy Creatinine Clearance (ChemN/[facility] HospitalPlatelet mean volume Auto (Bld) [Entitic vol]Ordered By: Ga Marques on 76-09-3617Cyxfoqay mean volume (Bld) [Entitic vol]8.0 fL6.3-10.7 [facility] HospitalPlatelets Auto (Bld) [#/Vol]Ordered By: Ga Marques on 94-95-3200Dnwzuromj (Bld) [#/Vol]416 10*3/iC395-766WrzbfpgglMercy Health Kings Mills HospitalProtein [Mass/volume] in Serum or PlasmaOrdered By: Ga Marques on 40-05-0193Ugcxsrl [Mass/Vol]6.9 g/dL6.1-7.9[facility] RBC Auto (Bld) [#/Vol]Ordered By: Ga Marques on 31-18-4979KGC (Bld) [#/Vol] 4.32 10*6/uL3.60-5.00[facility] Hospitalerum or plasma alanine aminotransferase measurement without P-5'-P (enzymatic activiOrdered By: Ga Marques on 14-71-4949HEI No additional P-5'-P [Catalytic activity/Vol]27 U/L10-60 [facility] Hospitalerum or plasma albumin/globulin mass ratio Ordered By: Ga Marques on 46-14-7459Ffsvbad/Globulin [Mass ratio]1.0 {ratio} [facility] Hospitalerum or plasma alkaline phosphatase measurement (enzymatic activity/volume)Ordered By: Ga Marques on 23-37-2361SYX [Catalytic activity/Vol]78 U/S25-48RfcwkxlgqMercy Health West Hospitalerum or plasma aspartate aminotransferase measurement (enzymatic activity/volume)Ordered By: Ga Marques on 77-93-5063IQC [Catalytic activity/Vol]24 U/L67-09CizngfnqqMercy Health West Hospitalerum or plasma calcium measurement (mass/volume)Ordered By: Ga Marques on 16-55-7881Kjwcvkl [Mass/Vol]8.7 mg/dL8.2-10.2FCentervilleerum or plasma chloride measurement (moles/volume) Ordered By: Ga Marques on 08-81-1275Fmuuixrn [Moles/Vol]103 mmol/L95-114 [facility] Hospitalerum or plasma glucose measurement (mass/volume)Ordered By: Ga Marques on 05-19-6512Drwhtad [Mass/Vol]139 mg/dL 70-100[facility] HospitalComment on above:ADA recommended reference rangeRandom Glucose [...] (HDL) cholesterol measurementOrdered By: Ga Marques on 64-35-4941Driauraqwzp in HDL [Mass/Vol]45 mg/jI39-61TffgsdxmqMercy Health Kings Mills HospitalComment on above:HDL CHOL ATP-III CLASSIFICATION Cardiovascular RiskHDL > or equal to 60 mg/dL LOWHDL < 40 mg/dL HIGHHDL CHOL ATP-III CLASSIFICATION Cardiovascular Risk HDL > or equal to 60 mg/dL LOW HDL < 40 mg/dL HIGHSerum or plasma potassium measurement (moles/volume)Ordered By: Ga Marques on 62-84-6989Ftkxkbfje [Moles/Vol]3.5 mmol/L3.5-5.1FCentervilleerum or plasma sodium measurement (moles/volume)Ordered By: Ga Marques on 56-07-0203Ljdrow [Moles/Vol]135 mmol/J284-448EryrdzdgmMercy Health West Hospitalerum or plasma total bilirubin measurement (mass/volume) Ordered By: Ga Marques on 69-62-6475Vfgftcosg [Mass/Vol]0.4 mg/dL0.3-1.2 [facility] Hospitalerum or plasma total carbon dioxide measurement (moles/volume)Ordered By: Ga Marques on 92-21-9220NH3 [Moles/Vol] 20.7 mmol/L22.0-30.0[facility] Hospitalerum or plasma total cholesterol/high density lipoprotein (HDL) cholesterol mass ratOrdered By: Ga Marques on 00-21-6591Mefwwykbehn.total/Cholesterol in HDL [Mass ratio]4.3 {ratio}[facility] Hospitalerum or plasma urea nitrogen measurement (mass/volume)Ordered By: Ga Marques on 79-40-2343Auii nitrogen [Mass/Vol]8 mg/dL9-[facility] HospitalTSH DL <= 0.005 mIU/L Qn Ordered By: Ga Marques on 86-44-4569OVT Qn1.19 m[IU]/L0.45-5.33[facility] HospitalTriglyceride [Mass/volume] in Serum or PlasmaOrdered By: Ga Marques on 02-90-2858Ezprheipyybv [Mass/Vol]84 mg/jU47-342TpvzeqonxMercy Health Kings Mills HospitalComment on above:TRIG ATP III CLASSIFICATIONTRIG less [...] or less (mass/volume)Ordered By: Ga Marques on 81-85-2089Azsoupu DL <= 20 mg/L (U) [Mass/Vol]11.7 mg/dL0.0-1.8[facility] HospitalUrine microalbumin/creatinine mass ratioOrdered By: Ga Marques on 03-17-2022 Albumin/Creatinine DL <= 20 mg/L (U) [Mass ratio]95.0 mg/g0.0-30.0[facility] HospitalComment on above:30-300 mg/g indicates an increased risk for diabetic nephropathy. Greater than 300 mg/g is consistent with clinical nephropathy. (Am. J. Kidney Disease 1995, 25:107) Vital Signs Date TimeVital SignValuePerforming RdvwbzmjvJdmyruzq09-46-5175 14:59-0400Body mass index (BMI) [Ratio]34.06 kg/m2Iris FONTENOT Work Phone: [facility] CareIebbgddytu63-13-7867 14:59-0400Body yjbshc98.71 kgIris FONTENOT Work Phone: [facility] CareFpwmhwotpl99-51-7415 14:59-0400Diastolic blood evpxoyan46 mm[Hg]Iris FONTENOT Work Phone: [facility] CareWekwcadhxb74-58-1509 14:59-0400Systolic blood qdhywkwk729 mm[Hg]Iris FONTENOT Work Phone: [facility] CareFwmggydnzk15-52-5799 17:23-0400Body temperature 37.0Corey Dusty DO Work Phone: [facility]Commun[facility] on above: NOTE: Patient Results are Not Corrected for Czibwfliaoh15-83-9644 16:43-0400Body joexmueqovp46.0 degrees CelsiusGECleveland Clinic Mentor HospitalComment on above:Result Comment: NOTE: Patient Results are Not Corrected for TemperaturePerformed By: #### [id number] #### LIAT Gregory ([id number]) [facility] ([facility]) [id number] [place], [place] 6686409-03-2025 14:52-0400Body jzjeby824.6 cmCorey Dusty DO Work Phone: [facility]09-03-2025 14:52-0400 Body mass index (BMI) [Ratio]32.28 kg/i0Npabg Dusty DO Work Phone: [facility]09-03-2025 14:52-0400 Body lsfnnlzmkha20.6 [degF]Rigoberto Dusty DO Work Phone: [facility]09-03-2025 14:52-0400 Body .72 kgCorey Dusty DO Work Phone: [facility]09-03-2025 14:52-0400 Diastolic blood gwpkudpe42 mm[Hg]Rigoberto Dusty DO Work Phone: [facility]09-03-2025 14:52-0400 Heart nwwu064 /minCorey Dusty DO Work Phone: [facility]09-03-2025 14:52-0400 Respiratory rate16 /minCorey Dusty DO Work Phone: [facility]09-03-2025 14:52-0400 SaO2% (BldA) [Mass fraction]97 %Rigoberto Morenoo DO Work Phone: [facility]09-03-2025 14:52-0400 Systolic blood myhgybsm435 mm[Hg]Rigoberto Dusty DO Work Phone: [facility]08-04-2025 09:23-0400 Diastolic blood yqkrqtzo00 mm[Hg]PHYSICIAN [facility]08-04-2025 09:23-0400Heart rate90 /minPHYSICIAN [facility]08-04-2025 09:23-0400Respiratory rate16 /minPHYSICIAN [facility]08-04-2025 09:23-2140JqE8% (BldA) [Mass fraction]100 %PHYSICIAN NO [facility]08-04-2025 09:23-0400Systolic blood dakroraj849 mm[Hg]PHYSICIAN [facility]08-04-2025 05:55-0400Body zzrbea160.1 cmPHYSICIAN [facility]08-04-2025 05:55-0400Body nnowxpcrsum27.1 [degF]PHYSICIAN [facility]08-04-2025 05:55-0400 Body mnbnda73.44 kgPHYSICIAN [facility] 06-18-2025 09:50-0400Body ifihzh012.6 Kayleigh Servin MD Work Phone: [facility] CareNuvcqsrvtg99-11-9008 09:50-0400Body mass index (BMI) [Ratio]32.77 kg/f0BfzghpDerek Servin MD Work Phone: [facility] CareEiikxqefqe53-93-7542 09:50-0400Body zqxcix46.08 kgDerek Servin MD Work Phone: [facility] CareRgeaucnsjz90-99-8487 17:28-0400Body teyryl716.1 cmPHYSICIAN [facility]07-19-2025 17:28-0400Body nquoqdozlvn21.3 [degF]PHYSICIAN NO [facility] 06-12-2025 17:28-0400Body kewcss82.85 kgPHYSICIAN [facility]07-19-2025 17:28-0400Diastolic blood vgaykwvo90 mm[Hg]PHYSICIAN NO [facility]07-19-2025 17:28-0400Heart rate91 /min PHYSICIAN NO [facility]07-19-2025 17:28-0400 Respiratory rate18 /minPHYSICIAN [facility] 06-12-2025 17:28-6891FvP5% (BldA) [Mass fraction]100 %PHYSICIAN NO [facility]07-19-2025 17:28-0400Systolic blood wdpmekds342 mm[Hg]PHYSICIAN NO [facility]07-09-2025 21:32-0400 Body cqboly061.1 cmPHYSICIAN [facility] 06-02-2025 21:32-0400Body jsiqerhrdqn51.7 [degF]PHYSICIAN NO [facility]07-09-2025 21:32-0400Body .15 kgPHYSICIAN [facility]07-09-2025 21:32-0400Diastolic blood qevjtcdj36 mm[Hg]PHYSICIAN NO [facility]07-09-2025 21:32-0400Heart rate89 /minPHYSICIAN [facility] 06-02-2025 21:32-0400Respiratory rate18 /minPHYSICIAN [facility]07-09-2025 21:32-0072VnN2% (BldA) [Mass fraction]99 % PHYSICIAN NO [facility]07-09-2025 21:32-0400 Systolic blood wzgukcpx135 mm[Hg]PHYSICIAN NO [facility]06-30-2025 11:08-0400Body mass index (BMI) [Ratio]32.2 kg/m2Iris FONTENOT Work Phone: [phone] [place], [place] [address]Oppuzfsltw99-02-9798 11:08-0400Body rsaedr79.49 kgIris FONTENOT Work Phone: [phone] [place], [place] [address]Xtjdjtwdvo75-70-4483 11:08-0400Diastolic blood plirltqd94 mm[Hg]Iris FONTENOT Work Phone: [phone] [place], [place] [address]Rqjvtmukhm90-13-9083 11:08-0400Systolic blood ajeqfnss545 mm[Hg]Iris FONTENOT Work Phone: [phone])[facility] [place], [place] [id number] 11:38-0400Body mass index (BMI) [Ratio]32.44 kg/r7Uapeg Dusty DO Work Phone: 1(078)[facility] [place], [place] [id number] 11:38-0400Body naovmc17.17 kgCorey Dusty DO Work Phone: 1(710)[facility] [place], [place] [id number] 11:38-0400Diastolic blood ogdbrkil18 mm[Hg]Rigoberto Morenoo DO Work Phone: 1(716)[facility] [place], [place] [id number] 11:38-0400Systolic blood bzrivtzk728 mm[Hg]Rigoberto Montano DO Work Phone: [phone] [place], [place] [id number] 12:13-0400Body eqievq804.1 [facility] 12:13-0400Body lxhijw62.6 kg [facility]2025 12:11-0400Body ltqekcdnazm13.4 [degF][facility]2025 12:11-0400Diastolic blood ngwzjcro23 mm[Hg][facility]2025 12:11-0400Heart rate83 /[facility]2025 12:11-0400Respiratory rate18 /[facility]2025 12:11-8391XpW8% (BldA) [Mass fraction]100 %[facility]2025 12:11-0400 Systolic blood uiileswe514 mm[Hg][facility]04-29-2025 08:24-0400Body xkwedbzffsq75.9 [degF][facility]04-29-2025 08:24-0400Diastolic blood thnomawf97 mm[Hg][facility] 03-23-2025 08:24-0400Heart rate80 /[facility] 03-23-2025 08:24-0400Respiratory rate16 /[facility] 03-23-2025 08:24-3808SzI4% (BldA) [Mass fraction]99 %[facility]04-29-2025 08:24-0400Systolic blood aijxzasc389 mm[Hg][facility]04-26-2025 02:33-0400Diastolic blood xrxgezsa00 mm[Hg][facility]04-26-2025 02:33-0400Heart rate86 /[facility]04-26-2025 02:33-0400Respiratory rate20 /[facility]04-26-2025 02:33-8921TlD5% (BldA) [Mass fraction]99 %[facility]04-26-2025 02:33-0400Systolic blood fltlmemo269 mm[Hg] [facility]04-26-2025 00:28-0400Body fyqxjw971.64 cm [facility]04-26-2025 00:28-0400Body .2 [degF][facility]04-26-2025 00:28-0400Body fakorz18 kg [facility]03-19-2025 14:07-0400Body .1 cm [facility]03-19-2025 14:07-0400Body tbmmzvcvxex37.7 [degF][facility]03-19-2025 14:07-0400Body fystfr31 kg [facility]03-19-2025 14:07-0400Diastolic blood nqnfwcul06 mm[Hg][facility]03-19-2025 14:07-0400Heart rate89 /min [facility]03-19-2025 14:07-0400Respiratory rate18 /min [facility]03-19-2025 14:07-1107KnR8% (BldA) [Mass fraction]100 %[facility]03-19-2025 14:07-0400Systolic blood ejddsmlq145 mm[Hg][facility]02-17-2025 09:38-0500 Body .6 cmKrystal Koehler MD Work Phone: 1(211)915-[address] [place], [place] 5575302-17-2025 09:38-0500 Body mass index (BMI) [Ratio]33.57 kg/l0ZmpzieKrystal Koehler MD Work Phone: 1(175)[address]02-17-2025 09:38-0500 Body yfalre10.35 kgKrystal Koehler MD Work Phone: 1(302)[address]02-17-2025 09:38-0500 Diastolic blood jetmkaye59 mm[Hg]Krystal Koehler MD Work Phone: 1(447)[address]02-17-2025 09:38-0500 Heart rate84 /minKrystal Koehler MD Work Phone: 1(940)[address] [place], [place] 5575302-17-2025 09:38-0500 Systolic blood szfccqok074 mm[Hg]Krystal Koehler MD Work Phone: 1(516)[address]12-29-2024 13:01-0500 Body .4 [degF][facility]12-29-2024 13:01-0500Diastolic blood mecjjstq11 mm[Hg][facility] 11-22-2024 13:01-0500Heart rate93 /[facility] 11-22-2024 13:01-0500Respiratory rate20 /[facility] 11-22-2024 13:01-8956MiO2% (BldA) [Mass fraction]99 %[facility]12-29-2024 13:01-0500Systolic blood jfelqllm560 mm[Hg][facility]12-29-2024 12:51-0500Body mwbsio218.37 [facility]12-29-2024 12:51-0500Body biveox23 kg[facility]12-24-2024 00:47-0500Body .1 [facility] 11-17-2024 00:47-0500Body giutwgghjtg17.9 [degF][facility]12-24-2024 00:47-0500Body .1 [facility] 11-17-2024 00:47-0500Diastolic blood tosyntjx43 mm[Hg][facility]12-24-2024 00:47-0500Heart rate80 /[facility] 11-17-2024 00:47-0500Respiratory rate18 /[facility] 11-17-2024 00:47-3128VcG2% (BldA) [Mass fraction]100 %[facility]12-24-2024 00:47-0500Systolic blood dvmqvahr267 mm[Hg][facility]11-10-2024 00:30-0500Diastolic blood mm[Hg]Rigoberto Dusty DO Work Phone: 1(315)045-[address] [place], [place] 1843711-10-2024 00:30-0500 Heart rate81 /minCorey Dusty DO Work Phone: 1(969)708-[address] [place], [place] 1843711-10-2024 00:30-0500 Respiratory rate18 /minCorey Dusty DO Work Phone: 1(324)913-[address] [place], [place] 1843711-10-2024 00:30-0500 SaO2% (BldA) [Mass fraction]98 %Rigoberto Dusty DO Work Phone: 1(002)742-[facility]11-10-2024 00:30-0500 Systolic blood bixilbcn499 mm[Hg]Rigoberto Dusty DO Work Phone: 1(580)136-[address] [place], [place] 1843711-09-2024 22:50-0500 Body brocny960.64 cmCorey Dusty DO Work Phone: 4(810)873-[address] [place], [place] 1843711-09-2024 22:50-0500 Body znyjhcjzzzy37.5 [degF]Rigoberto Dusty DO Work Phone: [facility]11-09-2024 22:50-0500 Body .25 kgCorey Dusty DO Work Phone: [facility]09-05-2024 11:24-0400 Body mass index (BMI) [Ratio]37.57 kg/m2Iris FONTENOT Work Phone: 1(178)219-[facility] CareAjkuwqgxll26-78-2261 11:24-0400Body dmysyr178.6 kgAmy Mali PA Work Phone: 1(395)486-[address] [place], [place] [address]Cmweeioogv99-94-0330 11:24-0400Diastolic blood boaciocm64 mm[Hg]Iris FONTENOT Work Phone: [facility] CareWsxmixigum82-68-7307 11:24-0400Systolic blood susdhxnd208 mm[Hg]Iris FONTENOT Work Phone: 1(081)137-[address] [place], [place] [address]Euevhcfwwx30-70-3569 10:08-0400Body senbkk249.6 cmKrystal Koehler MD Work Phone: 1(349)[address]08-12-2024 10:08-0400 Body mass index (BMI) [Ratio]36.15 kg/l9ZewmvbKrystal Koehler MD Work Phone: 1(919)139-[address] [place], [place] 5575308-12-2024 10:08-0400 Body flfiel828.61 kgKrystal Koehler MD Work Phone: 1(710)935-[address] [place], [place] 5575308-12-2024 10:08-0400 Diastolic blood qhmaqotp82 mm[Hg]Krystal Koehler MD Work Phone: 1(187)955-[address] [place], [place] 5575308-12-2024 10:08-0400 Heart rate80 /minKrystal Koehler MD Work Phone: 1(541)856[address]08-12-2024 10:08-0400 Systolic blood vzizyhgm003 mm[Hg]Krystal Koehler MD Work Phone: 1(890)[address]05-12-2024 20:42-0400 Body ifcjkz640.1 cmPHYSICIAN NO [facility]Fire[facility] 04-05-2024 20:42-0400Body xryntiuajnu27 [degF]PHYSICIAN [facility]05-12-2024 20:42-0400Body tepyjn023.5 kgPHYSICIAN [facility]05-12-2024 20:42-0400Diastolic blood judsauhj02 mm[Hg]PHYSICIAN [facility]05-12-2024 20:42-0400Heart rate82 /minPHYSICIAN [facility] 04-05-2024 20:42-0400Respiratory rate18 /minPHYSICIAN [facility]05-12-2024 20:42-6281UcL7% (BldA) [Mass fraction]99 % PHYSICIAN [facility]05-12-2024 20:42-0400 Systolic blood zpmsmbyw977 mm[Hg]PHYSICIAN [facility]04-29-2024 08:58-0400Body .1 cmKrystal Koehler MD Work Phone: 1(949)303-[address] [place], [place] 5575304-29-2024 08:58-0400 Body mass index (BMI) [Ratio]38.61 kg/m6KuokhaKrystal Koehler MD Work Phone: 1(774)247-[address] [place], [place] 5575304-29-2024 08:58-0400 Body vbvwib871.23 kgKrystal Koehler MD Work Phone: 1(125)[address] [place], [place] 5575304-29-2024 08:58-0400 Diastolic blood kergceul15 mm[Hg]Krystal Koehler MD Work Phone: 1(206)[address] [place], [place] 5575304-29-2024 08:58-0400 Heart rate82 /minKrystal Koehler MD Work Phone: 1(394)41470 [address]04-29-2024 08:58-0400 Systolic blood nmsyzkax803 mm[Hg]Krystal Koehler MD Work Phone: 1(976)414[address]04-26-2024 10:09-0400 Body nfquvq417.6 cmPacc 2 Work Phone: [facility]04-26-2024 10:09-0400Body mass index (BMI) [Ratio]36.65 kg/m2Pacc 2 Work Phone: [facility]04-26-2024 10:09-0400Body temperature 97.3 [degF]Pacc 2 Work Phone: [facility]04-26-2024 10:09-0400Body fntirl398 kg Pacc 2 Work Phone: [facility]04-26-2024 10:09-0400Diastolic blood noocxsyh42 mm[Hg]Pacc 2 Work Phone: [facility]04-26-2024 10:09-0400Heart rate97 /min Pacc 2 Work Phone: [facility]04-26-2024 10:09-0400Respiratory rate 16 /minPacc 2 Work Phone: [facility]04-26-2024 10:09-7208PnV6% (BldA) [Mass fraction]99 %Pacc 2 Work Phone: [facility]04-26-2024 10:09-0400Systolic blood mm[Hg]Pacc 2 Work Phone: [facility]11-29-2023 21:18-0500Diastolic blood oqnaifid49 mm[Hg]IVONE Marques Work Phone: [facility]11-29-2023 21:18-0500 Heart rate80 /minIVONE Marques Work Phone: [facility]11-29-2023 21:18-0500 Respiratory rate16 /minIVONE Marques Work Phone: [facility]11-29-2023 21:18-0500 SaO2% (BldA) [Mass fraction]99 %IVONE Marques Work Phone: [facility]11-29-2023 21:18-0500 Systolic blood kynrvxzp445 mm[Hg]IVONE Marques Work Phone: 1(333)[address] [place], [place] 2486211-29-2023 17:23-0500 Body .64 cmPKrystalJosé Marques Work Phone: 1(309)[address] [place], [place] 2486211-29-2023 17:23-0500 Body .2 [degF]IVONE Marques Work Phone: 1(663)[address] [place], [place] 2486211-29-2023 17:23-0500 Body ybylfm209.7 kgPAJosé Marques Work Phone: 1(941)[address] [place], [place] 2486211-29-2023 15:07-0500 Body omxqau678.1 cmPJody Marques Work Phone: 1(045)[address] [place], [place] 2486211-29-2023 15:07-0500 Body dqfmsphxbio20.8 [degF]IVONE Marques Work Phone: 1(921)[address] [place], [place] 2486211-29-2023 15:07-0500 Body asmonu474.65 kgPAJosé Marques Work Phone: 1(523)[address] [place], [place] 2486211-29-2023 15:07-0500 Diastolic blood rdmmonse17 mm[Hg]IVONE Marques Work Phone: 1(815)[address] [place], [place] 2486211-29-2023 15:07-0500 Heart rate84 /minIVONE Marques Work Phone: 1(528)[address] [place], [place] 2486211-29-2023 15:07-0500 Respiratory rate22 /minIVONE Marques Work Phone: 1(008)[address] [place], [place] 2486211-29-2023 15:07-0500 SaO2% (BldA) [Mass fraction]100 %IVONE Marques Work Phone: 1(667)[address] [place], [place] 2486211-29-2023 15:07-0500 Systolic blood blkaikdf898 mm[Hg]IVONE Marques Work Phone: 1(921)[address] [place], [place] 2486209-26-2023 12:55-0400 Body ggkreb270.1 cmPA-C Ga Marques Work Phone: 1(809)[address] [place], [place] 2486209-26-2023 12:55-0400 Body puauevoqran44.5 [degF]IVONE Marques Work Phone: 1(419)[address] [place], [place] 2486209-26-2023 12:55-0400 Body hdqeur096.2 kgIVONE Marques Work Phone: 1419)[address] [place], [place] 2486209-26-2023 12:55-0400 Diastolic blood knyyfvuu16 mm[Hg]IVONE Marques Work Phone: 1(419)[address] [place], [place] 2486209-26-2023 12:55-0400 Heart rate86 /Jamil Marques Work Phone: 1(419)[address] [place], [place] 2486209-26-2023 12:55-0400 Respiratory rate20 /Jamil Marques Work Phone: 1(768)[address] [place], [place] 2486209-26-2023 12:55-0400 SaO2% (BldA) [Mass fraction]99 %IVONE Marques Work Phone: 1(969)[address] [place], [place] 2486209-26-2023 12:55-0400 Systolic blood klslicdy898 mm[Hg]IVONE Marques Work Phone: 1(050)[address] [place], [place] 2486208-07-2023 18:06-0400 Body rmkixj953.1 Anitra-Johanna Marques Work Phone: 1(309)[address] [place], [place] 2486208-07-2023 18:06-0400 Body bhcyrqgizrz10.1 [degF]IVONE Marques Work Phone: 1(419)[address] [place], [place] 2486208-07-2023 18:06-0400 Body owtjeq288.15 kgIVONE Marques Work Phone: 1419)[address] [place], [place] 2486208-07-2023 18:06-0400 Diastolic blood mm[Hg]IVONE Marques Work Phone: 1(066)[address] [place], [place] 2486208-07-2023 18:06-0400 Heart rate96 /minIVONE Marques Work Phone: 1(713)52424 [address]08-07-2023 18:06-0400 Respiratory rate18 /minIVONE Marques Work Phone: 1(925)[address] [place], [place] 2486208-07-2023 18:06-0400 SaO2% (BldA) [Mass fraction]95 %IVONE Marques Work Phone: 1(516)[address] [place], [place] 2486208-07-2023 18:06-0400 Systolic blood mm[Hg]CORIE-Johanna Marques Work Phone: 1(419)[address] [place], [place] 2486206-29-2023 21:28-0400 Body nulljh934.1 cmPA-C Ga Marques Work Phone: 1(071)[address] [place], [place] 2486206-29-2023 21:28-0400 Body ubhfmkpjnxt37.5 [degF]IVONE Marques Work Phone: 1(527)[address] [place], [place] 2486206-29-2023 21:28-0400 Body kopbcu323.7 kgPAJosé Marques Work Phone: 1(419)[address] [place], [place] 2486206-29-2023 21:28-0400 Diastolic blood mm[Hg]IVONE Marques Work Phone: 1(087)[address] [place], [place] 2486206-29-2023 21:28-0400 Heart rate96 /minIVONE Marques Work Phone: 1(506)[address] [place], [place] 2486206-29-2023 21:28-0400 Respiratory rate20 /minIVONE Marques Work Phone: 1(693)[address] [place], [place] 2486206-29-2023 21:28-0400 SaO2% (BldA) [Mass fraction]97 %IVONE Marques Work Phone: 1(056)[address] [place], [place] 2486206-29-2023 21:28-0400 Systolic blood pzyrnpxq660 mm[Hg]IVONE Marques Work Phone: 1(138)[address] [place], [place] 2486204-07-2023 10:00-0400 72 1Ga Marques Work Phone: [id number]-[facility] [address] [place] Work Phone: Comment on above:[id number] 14:30-190975 1 Ga Marques Work Phone: [id number]-Elfel [facility] [address] [place] Work Phone: Comment on above:[id number] 09:46-0400 Diastolic blood mhhwatkw46 mm[Hg]Ga Marques Work Phone: [id number]-Trytl [facility] [address] DO Work Phone: 1(669) 261-694803-20-2023 09:46-0400Systolic blood fbgxxuhn392 mm[Hg] Ga Marques Work Phone: mp059-0490WB-Ioxas [facility] [address] DO Work Phone: 1(174) 451-182903-20-2023 09:45-0400Body ubyioa202.64 cmTabril Marques Work Phone: [id number]-Mmxdc [facility] [address] DO Work Phone: 1(587) 376-112203-20-2023 09:45-0400Body mass index (BMI) [Ratio] 37.12 kg/g5ChgajyGa Marques Work Phone: [id number]-Oweuz [facility] [address] DO Work Phone: 1(809) 160-596903-20-2023 09:45-0400Body surface area Derived from formula2.12 s1YlwwbhGa Marques Work Phone: [id number]-Uxizx [facility] [address] DO Work Phone: 1(861) 112-444703-20-2023 09:45-0400Body unmlgu669.33 kgGa Marques Work Phone: mp124-7918RM-Huglw [facility] [address] DO Work Phone: 1(911) 932-634203-20-2023 09:45-0400Diastolic blood xszpyxwk00 mm[Hg] Ga Krystal Shelli Work Phone: mp165-9675JE-Vrlff [facility] [address] DO Work Phone: 1(925) 996-382003-20-2023 09:45-0400Heart rate76 /minThomas Krystal Marques Work Phone: 1(683) 161-3278756-8130SH[facility] [facility] [place] Work Phone: 1(117) 419-826403-20-2023 09:45-0400Systolic blood sjdrekfu098 mm[Hg] Ga Marques Work Phone: mp193-2457UN[facility] [facility] Work Phone: 1(333) 926-671602-19-2023 03:00-0500Diastolic blood bgnxsyjk64 mm[Hg] IVONE Marques Work Phone: 1(693)001-[address] [place], [place] 1535802-19-2023 03:00-0500 Heart rate87 /minIVONE Marques Work Phone: 1(046)[address]02-19-2023 03:00-0500 Respiratory rate19 /minIVONE Marques Work Phone: 1(838)28224 [address]02-19-2023 03:00-0500 SaO2% (BldA) [Mass fraction]99 %IVONE Marques Work Phone: 1(011)912-[address] [place], [place] 1535802-19-2023 03:00-0500 Systolic blood mm[Hg]IVONE Marques Work Phone: 1(176)[address]24 [address]02-19-2023 01:05-0500 Body qiaysi870.1 Lilia Marques Work Phone: 1(830)557-[address] [place], [place] 1535802-19-2023 01:05-0500 Body uasdfbwnnky52.3 [degF]IVONE Marques Work Phone: 1(997)404-[address] [place], [place] 1535802-19-2023 01:05-0500 Body ogkpxb825 kgIVONE Marques Work Phone: 1(526)32124 [address]02-10-2023 13:35-0500 Body txolas399.1 Lilia Marques Work Phone: 1(082)166-[address] [place], [place] 1535802-10-2023 13:35-0500 Body rciarwzlfqt82.3 [degF]PA-C Ga Marques Work Phone: 1(725)[address] [place], [place] 2486202-10-2023 13:35-0500 Body kgPA-C Ga Marques Work Phone: 1(281)[address] [place], [place] 2486202-10-2023 13:35-0500 Diastolic blood mm[Hg]PA-Johanna Marques Work Phone: 1(282)[address] [place], [place] 2486202-10-2023 13:35-0500 Heart rate95 /minIVONE Marques Work Phone: 1(460)[address] [place], [place] 2486202-10-2023 13:35-0500 Respiratory rate22 /minYOUNGC Ga Marques Work Phone: 1(686)[address] [place], [place] 2486202-10-2023 13:35-0500 SaO2% (BldA) [Mass fraction]98 %CORIE-Johanna Marques Work Phone: 1(870)[address] [place], [place] 2486202-10-2023 13:35-0500 Systolic blood mm[Hg]PA-Johanna Marques Work Phone: 1(403)[address] [place], [place] 2486201-06-2023 02:15-0500 Body dcacht769.1 cmPA-C Ga Marques Work Phone: 1(412)[address] [place], [place] 2486201-06-2023 02:15-0500 Body bijrel256.05 kgPA-Johanna Marques Work Phone: 1(775)[address] [place], [place] 2486201-06-2023 02:14-0500 Body cvfdkqsequn56.5 [degF]IVONE Marques Work Phone: 1(693)[address] [place], [place] 2486201-06-2023 02:14-0500 Diastolic blood xytpuizr75 mm[Hg]CORIE-Johanna Marques Work Phone: 1(216)[address] [place], [place] 2486201-06-2023 02:14-0500 Heart rate95 /minPAYeimiC Ga Marques Work Phone: 1(166)[address] [place], [place] 2486201-06-2023 02:14-0500 Respiratory rate20 /minPA-C Ga Marques Work Phone: 1(036)[address] [place], [place] 2486201-06-2023 02:14-0500 SaO2% (BldA) [Mass fraction]99 %CORIE-C Ga Marques Work Phone: 1(747)[address] [place], [place] 2486201-06-2023 02:14-0500 Systolic blood ypnzcbjv161 mm[Hg]CORIE-C Ga Marques Work Phone: 1(031)[address] [place], [place] 2486210-28-2022 17:16-0400 Diastolic blood wezzcshy19 mm[Hg]PA-Johanna Marques Work Phone: 1(758)[address] [place], [place] 2486210-28-2022 17:16-0400 Heart rate72 /minIVONE Marques Work Phone: 1(319)[address] [place], [place] 2486210-28-2022 17:16-0400 Respiratory rate18 /minIVONE Marques Work Phone: 1(905)[address] [place], [place] 2486210-28-2022 17:16-0400 SaO2% (BldA) [Mass fraction]100 %IVONE Marques Work Phone: 1(429)[address] [place], [place] 2486210-28-2022 17:16-0400 Systolic blood zoiomdmr967 mm[Hg]CORIE-Johanna Marques Work Phone: 1(298)[address] [place], [place] 2486210-28-2022 15:58-0400 Body okfexu467.1 AnitraJosé Marques Work Phone: 1(663)[address] [place], [place] 2486210-28-2022 15:58-0400 Body tugfldfsjmk03.3 [degF]IVOEN Marques Work Phone: 1(605)[address] [place], [place] 2486210-28-2022 15:58-0400 Body okwgqs141.59 kgPAJosé Marques Work Phone: 1(983)[address] [place], [place] 2486210-20-2022 09:17-0400 Body dyauuy962.64 cmPKrystalJosé Marques Work Phone: 1(028)[address] [place], [place] 2486210-20-2022 09:17-0400 Body qqorsvcwdtj46.6 [degF]IVONE Marques Work Phone: 1(120)[address] [place], [place] 2486210-20-2022 09:17-0400 Body gbovjz840.2 kgPA-C Ga Marques Work Phone: 1(041)[address] [place], [place] 2486210-20-2022 09:17-0400 Diastolic blood mm[Hg]PA-Johanna Marques Work Phone: 1(376)[address] [place], [place] 2486210-20-2022 09:17-0400 Heart rate85 /minYOUNGC Ga Marques Work Phone: 1(242)[address] [place], [place] 2486210-20-2022 09:17-0400 Respiratory rate18 /minYOUNGC Ga Marques Work Phone: 1(848)[address] [place], [place] 2486210-20-2022 09:17-0400 SaO2% (BldA) [Mass fraction]99 %IVONE Marques Work Phone: 1(262)[address] [place], [place] 2486210-20-2022 09:17-0400 Systolic blood mm[Hg]IVONE Marques Work Phone: 1(717)[address] [place], [place] 2486209-09-2022 19:16-0400 Body gswxex832.1 cmPA-C Ga Marques Work Phone: 1(739)[address] [place], [place] 2486209-09-2022 19:16-0400 Body hvbrqjefboj81.5 [degF]IVONE Marques Work Phone: 1(728)[address] [place], [place] 2486209-09-2022 19:16-0400 Body oksxss321.25 kgPA-Johanna Marques Work Phone: 1(730)[address] [place], [place] 2486209-09-2022 19:16-0400 Diastolic blood qcoljoft24 mm[Hg]IVONE Marques Work Phone: 1(974)[address] [place], [place] 2486209-09-2022 19:16-0400 Heart rate80 /minIVONE Marques Work Phone: 1(179)[address] [place], [place] 2486209-09-2022 19:16-0400 Respiratory rate18 /minIVONE Marques Work Phone: 1(321)[address] [place], [place] 2486209-09-2022 19:16-0400 SaO2% (BldA) [Mass fraction]98 %IVONE Marques Work Phone: 1(945)[address] [place], [place] 2486209-09-2022 19:16-0400 Systolic blood fvqlowaa783 mm[Hg]IVONE Marques Work Phone: 1(419)[address] [place], [place] 2486208-05-2022 19:16-0400 Body ydwbyz033.1 cmPA-C Ga Marques Work Phone: 1(419)[address] [place], [place] 2486208-05-2022 19:16-0400 Body oktitsemrmv27.5 [degF]IVONE Marques Work Phone: 1(419)[address] [place], [place] 2486208-05-2022 19:16-0400 Body qezlfh703.8 kgIVONE Marques Work Phone: 1(526)[address] [place], [place] 2486208-05-2022 19:16-0400 Diastolic blood kxaejkay57 mm[Hg]IVONE Marques Work Phone: 1(813)[address] [place], [place] 2486208-05-2022 19:16-0400 Heart rate81 /Jamil Marques Work Phone: 1(250)[address] [place], [place] 2486208-05-2022 19:16-0400 Respiratory rate18 /Jamil Marques Work Phone: 1(745)[address] [place], [place] 2486208-05-2022 19:16-0400 SaO2% (BldA) [Mass fraction]100 %IVONE Marques Work Phone: 1(618)[address] [place], [place] 2486208-05-2022 19:16-0400 Systolic blood xzgqjxva276 mm[Hg]IVONE Marques Work Phone: 1(419)[address] [place], [place] 2486207-02-2022 23:21-0400 Heart rate82 /minYOUNGC Ga Marques Work Phone: 1(918)[address] [place], [place] 2486207-02-2022 23:21-0400 Respiratory rate18 /minYOUNGC Ga Marques Work Phone: 1(518)[address]07-02-2022 23:21-0400 SaO2% (BldA) [Mass fraction]99 %IVONE Marques Work Phone: 1(652)[address] [place], [place] 2486207-02-2022 21:17-0400 Body leaeko066.64 cmPAJosé Marques Work Phone: 1(435)97324 [address]07-02-2022 21:17-0400 Body mass index (BMI) [Ratio]39.5 kg/m2IVONE Marques Work Phone: 1(713)[address] [place], [place] [id number] 21:17-0400 Body qbzvavzrnxp13.2 [degF]IVONE Marques Work Phone: 1(666)[address] [place], [place] [id number] 21:17-0400 Body ausqak293.13 kgIVONE Marques Work Phone: 1(931)[address] [place], [place] [id number] 21:17-0400 Diastolic blood vffelczr930 mm[Hg]IVONE Marques Work Phone: 1(945)[address] [place], [place] [id number] 21:17-0400 Systolic blood mm[Hg]IVONE Marques Work Phone: 1(409)[address] [place], [place] [id number] 14:45-0400 Diastolic blood dzfusuzr16 mm[Hg]IVONE Marques Work Phone: 1(021)[address]06-27-2022 14:45-0400 Heart rate98 /Jamil Marques Work Phone: 1(992)[address]06-27-2022 14:45-0400 Respiratory rate20 /minIVONE Marques Work Phone: 1(695)[address] [place], [place] 2486206-27-2022 14:45-0400 SaO2% (BldA) [Mass fraction]96 %IVONE Marques Work Phone: 1(678)[address] [place], [place] 2486206-27-2022 14:45-0400 Systolic blood uvfpefuf314 mm[Hg]IVONE Marques Work Phone: [facility]06-27-2022 13:06-0400 Body .64 cmPAJosé Marques Work Phone: [facility]06-27-2022 13:06-0400 Body mass index (BMI) [Ratio]39.2 kg/m2IVONE Ga Marques Work Phone: [facility]06-27-2022 13:06-0400 Body ylkfrb798.4 kgIVONE Marques Work Phone: [facility]06-27-2022 12:10-0400 Body jxgdnhduyst84 [degF]IVONE Marques Work Phone: [facility]04-14-2022 10:54-0400 Body ofqfvkjqexf88.6 [degF][facility]04-14-2022 10:54-0400Diastolic blood azyihtvp15 mm[Hg][facility] 03-08-2022 10:54-0400Heart rate86 /[facility] 03-08-2022 10:54-0400Respiratory rate18 /[facility] 03-08-2022 10:54-8249HqO5% (BldA) [Mass fraction]97 %[facility]04-14-2022 10:54-0400Systolic blood cshiexvn981 mm[Hg][facility]04-14-2022 10:48-0400Body gkclau674.1 [facility]14-2022 10:48-0400Body mass index (BMI) [Ratio]39.7 kg/f3BwyweefypMer[facility]04-14-2022 10:48-0400Body xyxavw284.4 kgMer[facility]03-29-2022 20:40-0400Body gliwpaubxwv47.1 [degF][facility]03-29-2022 20:40-0400Diastolic blood hzzoybca22 mm[Hg] [facility]03-29-2022 20:40-0400Heart rate87 /[facility]03-29-2022 20:40-0400Respiratory rate18 /[facility]03-29-2022 20:40-7858VmR6% (BldA) [Mass fraction]98 % [facility]03-29-2022 20:40-0400Systolic blood iswaprja240 mm[Hg][facility]03-29-2022 20:38-0400Body qpqrso744.1 cm [facility]03-29-2022 20:38-0400Body mass index (BMI) [Ratio]40.2 kg/a8QvveknsxiMercy Health [facility] Hospital03-29-2022 20:38-0400Body etiagn687.76 kgMercy Health [facility]02-15-2022 23:43-0500Body height 165.1 cmMer[facility] Health [facility]02-15-2022 23:43-0500Body mass index (BMI) [Ratio]39.6 kg/x6ZupylznwmMercy Health [facility] Hospital02-15-2022 23:43-0500 Body tijddwfskba08 [degF][facility]02-15-2022 23:43-0500 Body .95 kgMer[facility] Health [facility]02-15-2022 23:43-0500 Diastolic blood vykjavxg66 mm[Hg][facility]02-15-2022 23:43-0500Heart rate91 /[facility]02-15-2022 23:43-0500Respiratory rate18 /[facility]02-15-2022 23:43-3998OdO4% (BldA) [Mass fraction]100 %[facility] 01-09-2022 23:43-0500Systolic blood mbaghlbm375 mm[Hg][facility] Encounters Encounter DateEncounter TypeCare ProviderFacilityStart: 09-27-2025 End: 09-82-4507acyuhpdrgqWHKL CANNFacility:[facility]tart: 09-14-2025 End: 55-64-4937fedwylpkbcBBAT CANNFacility:[facility]tart: 09-09-2025 End: 61-16-0210ewrrzyeczuEWMT CANNFacility:[facility] HospitalStart: 08-26-2025 End: 71-47-8897wyqoqfqndmURYXYQU M ARMBREKETTERING HEALTH GREENE MEMORIALFacility:[facility] Campustart: 47-62-3690Faqjmedrv for other preprocedural examinationEULALIA FUENTESBlue Mountain Hospital Start: 08-11-2025 End: 64-37-2813Vgoepa OnlyEulalia Fuentes DPM Work Phone: OrthopaedicsComment on above:Acquired dysmorphic toenail (Primary Dx); Pain in toes of both feet; Difficulty walking; Pain of toes of both feetStart: 08-10-2025 End: 68-21-2693Fkbewjfzx encounterEulalia Fuentes DPM Work Phone: OrthopaedicsComment on above:Surgical FollowupStart: 08-10-2025 End: 27-00-9203Mdxjwop encounter procedureEulalia Fuentes DPM Work Phone: PodiatryComment on above:Type 2 diabetes mellitus with diabetic polyneuropathy, unspecified whether continuous 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 insulin use (HCC) (Primary Dx); Difficulty walking; BMI 39.0-39.9,adult; Eversion deformity of foot, left; Painful scar; Acquired dysmorphic toenail; Pain in toes of both feetStart: 08-10-2025 End: 61-01-7306dhsowumchtTGWW CANNFacility:[facility] Hospitaltart: 08-04-2025 End: 78-77-8061jtlvjounjeXCZ RAMEYNot AvailableStart: 08-04-2025 End: 51-22-0352Muecuc outpatient visit 15 minutesIris FONTENOT Work Phone: [facility] OBGYNComment on above:Encounter for consultationStart: 08-04-2025 End: 32-86-2331Uuujnimonico FONTENOT Work Phone: [facility] [place] OBGYNStart: 08-04-2025 End: 38-92-5796Psdsiamonico FONTENOT Work Phone: [facility] [place] OBGYNStart: 07-28-2025 End: 51-18-9369Ifygfkgvn department patient visitLORI LIONRobert Wood Johnson University Hospital at Hamilton Emergency MedicineComment on above:Shortness of breath (Primary Dx); Exacerbation of asthma, unspecified asthma severity, unspecified whether persistent (HHS-HCC); Upper respiratory tract infection, unspecified typeStart: 07-12-2025 End: 39-65-0397brpkxnbydkJRTKKQ VARGAS VNot AvailableStart: 07-12-2025 End: 01-89-6047Ysqebn follow up visit related to original pxDerek Viera MD Work Phone: noms Surgical AssociatesComment on above:Epidermal inclusion cyst (Primary Dx); Left buttock abscessStart: 06-28-2025 End: 27-84-8546Fnyxbtud Result EncounterDerek Viera MD Work Phone: noms External Department UnsolicitedStart: 06-28-2025 End: 36-53-2017Bnoeajji Result EncounterDerek Servin MD Work Phone: noms External Department UnsolicitedStart: 06-28-2025 End: 43-31-8537Imnvzgw encounter procedureKelsea Joseph APRN [employer]-Ultrasound [place] Work Phone: Start: 06-28-2025 End: 22-05-9924otatbfqjmpAYUSKMJBO NO [facility] Work Phone: Start: 06-28-2025 End: 91-84-5229Rdjrgkrpy to same day surgery centerDerek Viera MD-[facility] CenterStart: 06-28-2025 End: 60-28-2880mrfcdymbqcDDBEOJKDT NO [facility] Work Phone: Start: 06-18-2025 End: 06-14-7159Jzdwjt outpatient new 45 minutesDerek Viera MD Work Phone: noms ST GENSComment on above:Left breast abscess (Primary Dx); Mass of upper inner quadrant of left breast; Mass of buttock; Neoplasm of uncertain behavior of skin of back; Type 2 diabetes mellitus without complication, without long-term current use of insulin (HCC)Start: 06-18-2025 End: 36-59-6687obpnfqkgqoFVZMCC VARGAS VNot AvailableStart: 06-16-2025 End: 95-82-8325Ukobbrr encounter procedureSemajjossue Jake JASON [facility] Work Phone: Start: 06-16-2025 End: 63-47-2562kvuipyibocNMXGDOJLR NO [facility] Work Phone: Start: 06-12-2025 End: 95-52-6088Fbhnbywsb department patient visitPHYSICIAN NO [facility]-Emergency Room Work Phone: Start: 06-02-2025 End: 02-27-0047Rgjunbtpb department patient visitPHYSICIAN NO [facility]gency [facility] Work Phone: Start: 05-24-2025 End: 86-57-3212Hdhvbi flowsheetIris FONTENOT Work Phone: noms BCP OBStart: 05-24-2025 End: 24-43-9323Ucxxhh flowsheetIris FONTENOT Work Phone: noms BCP OBStart: 05-24-2025 End: 62-07-2926Hjkuluyoa Result EncounterIris FONTENOT Work Phone: noms External Department UnsolicitedStart: 05-24-2025 End: 03-70-8114Ftvjhpk encounter procedureIris FONTENOT Work Phone: noMS HealthcareStart: 05-24-2025 End: 56-67-6237Iikgztpr preventive med est patient 40-64yrsAmy Mali FONTENOT Work Phone: noms BCP OBComment on above:Breast tenderness in female (Primary Dx); Well woman exam with routine gynecological exam; Encounter for screening mammogram for malignant neoplasm of breastStart: 05-24-2025 End: 24-87-4237grjaudxrotGLR RAMEYNot AvailableStart: 05-06-2025 End: 84-91-2478Ppzwowg encounter procedureKelsea Joseph APRN [employer]-Lab [place] Work Phone: Start: 05-06-2025 End: 69-93-8361dqrnoqgekoBopirauu EberlyFacility:[facility] Hospitaltart: 05-03-2025 End: 92-27-4976Cdpere flowsheetCorey Dusty DO Work Phone: noms BCP OBStart: 05-03-2025 End: 54-84-0826Ykrfpp flowsheetCorey Dusty DO Work Phone: noms BCP OBStart: 05-03-2025 End: 66-41-4336Vbxbvkgh Result EncounterCorey Dusty DO Work Phone: noms External Department UnsolicitedStart: 05-03-2025 End: 56-59-1346Llnskr outpatient visit 15 minutesCorey Dusty DO Work Phone: noms BCP OBComment on above:Type 2 diabetes mellitus with other skin complications (Primary Dx); Pelvic pain in female; Yeast infectionStart: 05-03-2025 End: 00-30-1016unwsxwrnobCFVPV FAZIONot AvailableStart: 04-15-2025 End: 07-89-6884Knvacgois department patient visitOhio[facility] Work Phone: Start: 03-23-2025 End: 49-42-0247Cnfrncsjn department patient visitOhio[facility] Work Phone: Start: 03-20-2025 End: 58-95-6901Acwnmrzkf department patient visitOhio[facility] Work Phone: Start: 02-10-2025 End: 12-78-2106Rnzfxmthf department patient visitOhiohealth [facility]- [facility] Work Phone: Start: 01-11-2025 End: 84-90-5030Duvrrn outpatient visit 25 minutesKrystal Koehler MD Work Phone: uh FirelandsComment on above:Primary hypertension; Diabetes mellitus type II, non insulin dependent (Multi); Mixed hyperlipidemia; Hypokalemia; BMI 33.0-33.9,adult; SmokerStart: 01-11-2025 End: 13-48-5524mtcdnfhlrsOSYEGFNortheast Georgia Medical Center LumpkinStart: 01-04-2025 End: 84-80-6207mfdciqfmdaMLMQ CANNFacility:[facility] Hospitaltart: 01-04-2025 End: 86-90-5295Kobftvj encounter procedureEulalia Fuentes DPM Work Phone: OrthopaedicsComment on above:DM (diabetes mellitus), type 2 with neurological complications (HCC) (Primary Dx); Hyperkeratosis; Pain in both feet; Eversion deformity of foot, left; Acquired dysmorphic toenailStart: 12-04-2024 End: 19-65-2746waysvwwtqmMYGG CANNFacility:[facility] Hospitaltart: 12-04-2024 End: 26-65-4013Tlvlymm encounter procedureEulalia Fuentes DPM Work Phone: OrthopaedicsComment on above:Eversion deformity of foot, left (Primary Dx); Pain in both feet; Diabetes mellitus type 2 with neurological manifestations (HCC); Difficulty walking; Fibromyalgia; History of foot surgery; Hyperkeratosis; Chronic pain of left ankle; Neuralgia of left lower extremity; DM (diabetes mellitus), type 2 with neurological complications (HCC)Start: 11-22-2024 End: 60-93-1864Svhycfwus department patient visitJ.W. [facility]- [facility] Work Phone: Start: 11-17-2024 End: 56-09-3120Syaxcprar department patient visitJ.W. [facility]- [facility] Work Phone: Start: 10-05-2024 End: 33-28-1169sawzwoevejSJUL CANNFacility:[facility] Hospitaltart: 10-05-2024 End: 79-57-2298Vjgumhp encounter procedureEulalia Fuentes DPM Work Phone: OrthopaedicsComment on above:Painful scar (Primary Dx); DM (diabetes mellitus), type 2 with neurological complications (HCC); Neuralgia of left lower extremity; Chronic pain of left ankle; Hyperkeratosis; History of foot surgery; FibromyalgiaStart: 10-03-2024 End: 29-22-1350Wzkvchyrw department patient visitCorey Dusty DO Work Phone: [facility] Work Phone: Start: 08-31-2024 End: 38-56-9172Dnknmvs encounter procedureEulalia Fuentes DPM Work Phone: OrthopaedicsComment on above:Left foot pain (Primary Dx); Post-operative state; Difficulty walking; Painful scar; Diabetes mellitus type 2 with neurological manifestations (HCC)Start: 08-20-2024 End: 75-14-7354kpmapmdjksXCTYT FAWILBERTOONot AvailableStart: 08-07-2024 End: 23-33-5041Hfzfdffwo encounterEulalia Fuentes DPM Work Phone: OrthopaedicsComment on above:FMLA PaperworkStart: 07-30-2024 End: 82-39-2905Ucsqju Angie FONTENOT Work Phone: noms BCP OBStart: 07-30-2024 End: 99-30-6849Xyqgmh Angie FONTENOT Work Phone: noms BCP OBStart: 07-30-2024 End: 72-22-8935Hkwjshlhg encounterEulalia Fuentes DPM Work Phone: OrthopaedicsComment on above:Patient QuestionStart: 07-30-2024 End: 81-10-8104Qxupmb follow up visit related to original Jim FONTENOT Work Phone: noms BCP OBComment on above:Postoperative examination Start: 07-22-2024 End: 75-39-3996Epyzfba encounter Donte Fuentes DPM Work Phone: OrthopaedicsComment on above:Post-operative state (Primary Dx)Start: 07-16-2024 End: 94-59-1157Cpaszqiha Result EncounterCorey Dusty DO Work Phone: noms External Department UnsolicitedStart: 07-16-2024 End: 87-43-2487Hkznbjmoz Result EncounterCorey Dusty DO Work Phone: noms External Department UnsolicitedStart: 07-16-2024 End: 58-18-3637okdcsuthacGOT [facility] Work Phone: Start: 07-16-2024 End: 81-57-1451Bumicflb ReferredDO Rigoberto Dusty Work Phone: [facility]-LAB Path Spec [facility] HospStart: 99-90-0132Vlmravyys encounterJohn Ruby DPM Work Phone: OrthopaedicsComment on above:DisabilityStart: 07-06-2024 End: 77-75-8202Qkdkoz outpatient visit 25 minutesKrystal Koehler MD Work Phone: uh FirelandsComment on above:Medication course changed (Primary Dx); Primary hypertension; Diabetes mellitus type II, non insulin dependent (Multi); Hyperlipidemia, unspecified hyperlipidemia type; Smoker; Preop cardiovascular examStart: 07-06-2024 End: 63-38-9356Pkgelkj encounter statusKrystal Koehler MD Work Phone: [facility] Work Phone: Start: 07-06-2024 End: 96-73-3514ibsqwkgelzFSLXUOPenn State Health Rehabilitation Hospital AmbulatoryStart: 07-06-2024 End: 05-23-9783Xvxuxxics for preprocedural cardiovascular examinationGEPenn State Health Rehabilitation Hospital AmbulatoryStart: 07-02-2024 End: 54-67-0778Pafefzrcz Result EncounterCorey Dusty DO Work Phone: noms External Department UnsolicitedStart: 07-02-2024 End: 09-97-4001Pqjxcecrd Result EncounterCorey Dusty DO Work Phone: noIL External Department UnsolicitedStart: 06-23-2024 End: 37-40-8737Weuocdd encounter procedureEulalia Ruby DPM Work Phone: PodiatryComment on above:Post-operative state (Primary Dx)Start: 06-08-2024 End: 83-66-7128eefmuzwzirUnzq Ruby DPM Work Phone: OrthopaedicsComment on above:Post-operative state (Primary Dx)Start: 06-08-2024 End: 92-82-9878Hkdgrwcsglyw consultation with Mundo Fuentes DPM Work Phone: OrthopaedicsStart: 38-74-5146Xymvbeuiw encounterEulalia Ruby DPM Work Phone: OrthopaedicsComment on above:Patient UpdateStart: 44-63-1770keakxeggzwACVHP RUMSCHLAGFacility:EU BellevueStart: 05-20-2024 End: 26-42-9376Gnpywye encounter procedureEulalia Ruby DPM Work Phone: OrthopaedicsComment on above:Post-operative state (Primary Dx)Start: 15-84-2448Dsynqzwie encounterHenriettagopal Ruby DPM Work Phone: OrthopaedicsStart: 05-07-2024 End: 98-57-8204Vxwlvul encounter procedureHenriettagopal Ruby DPM Work Phone: OrthopaedicsComment on above:Post-operative state (Primary Dx)Start: 13-27-1728Ovvvqxwcs encounterEulalia Ruby DPM Work Phone: OrthopaedicsComment on above:FMLA PaperworkStart: 04-27-2024 End: 81-72-8450Qowrhdw encounter procedureHenriettagopal Ruby DPM Work Phone: OrthopaedicsComment on above:Difficulty walking (Primary Dx); Right foot pain; Painful scar; Neuritis of left lower extremity; FibromyalgiaStart: 04-24-2024 End: 82-08-8991avfkfpuuiaFIVEVIYKK [facility] Work Phone: Start: 04-24-2024 End: 44-25-6029Eypxsqb encounter procedurePHYSICIAN [facility] [place] Work Phone: Start: 85-68-4078Ttvbhpchm encounterBroward Health North 1 Work Phone: pre AnesthesiaStart: 09-58-4010Yfpwcjloz encounterEulalia Fuentes DPM Work Phone: PodiatryComment on above:surgery question and infected toeStart: 04-05-2024 End: 85-68-9399Osptglrmk department patient visitPHYSICIAN [facility]-Emergency [facility] Work Phone: Start: 33-76-1189Nmcahmgii encounterEulalia Fuentes DPM Work Phone: OrthopaedicsStart: 03-23-2024 End: 25-29-1389Lipbsb outpatient visit 25 minutesKrystal Koehler MD Work Phone: uh Firepullman regional hospitalComment on above:Medication course changed (Primary Dx); Diabetes mellitus type II, non insulin dependent (Multi); Anemia, unspecified type; Primary hypertension; BMI 38.0-38.9,adult; Smoker; Hyperlipidemia, unspecified hyperlipidemia typeStart: 03-20-2024 End: 89-15-3130Wasacgahu to [facility] 2 Work Phone: pre AnesthesiaStart: 03-20-2024 End: 60-38-3167Wydmgmyhiz consultationBroward Health North 2 Work Phone: pre AnesthesiaComment on above:Pre-op evaluation (Primary Dx); Hyperlipidemia, unspecified hyperlipidemia type; Type 2 diabetes mellitus with other specified complication, without long-term current use of insulin ([facility]); Fibromyalgia; Migraine without status migrainosus, not intractable, unspecified migraine type; Cigarette nicotine dependence without complication; Mild intermittent asthma without complication; Obstructive sleep apnea of adult; Gastro-esophageal reflux disease without esophagitis; Class 2 severe obesity due to excess calories with serious comorbidity and body mass index (BMI) of36.0 to 36.9 in adult ([facility])Start: 03-20-2024 End: 43-55-6941Htyezmojgiimz examination [place] [address] Work Phone: [facility] Work Phone: Start: 50-41-6248fgszkmmkuwPffw Cann DPM Work Phone: OrthopaedicsComment on above:My toes look infected Start: 99-22-0605Pshzfuxsy encounterEulalia Fuentes DPM Work Phone: [facility] Rheum InstituteComment on above:Patient Update; Patient QuestionStart: 03-11-2024 End: 89-92-9732ydjnkukjzrBcjkpe Brackman PT, DPT Work Phone: [place] TherapyComment on above:Type 2 diabetes mellitus with diabetic polyneuropathy, unspecified whether continuous 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 insulin use ([facility]); BMI 39.0-39.9,adult; Difficulty walking; Eversion deformity of foot, left; Painful scarStart: 03-09-2024 End: 56-75-2132Vunuqyy encounter procedureEulalia Fuentes DPM Work Phone: OrthopaedicsComment on above:Ingrown toenail (Primary Dx); Pain in both feet; Acquired dysmorphic toenail; History of foot surgery; Diabetes mellitus type 2 with neurological manifestations ([facility]); BMI 39.0-39.9,adult; Fibromyalgia; Eversion deformity of foot, leftStart: 72-54-9192wmtvesnduaKuij Cann DPM Work Phone: OrthopaedicsStart: 76-84-4861Pvhbegcku encounterEulalia Fuentes DPM Work Phone: OrthopaedicsComment on above:Surgical FollowupStart: 02-03-2024 End: 10-29-4338Syyjuii encounter Donte Fuentes DPM Work Phone: OrthopaedicsComment on above:Ingrown toenail (Primary Dx); History of foot surgery; Diabetes mellitus type 2 with neurological manifestations ([facility]); Painful scar; Acquired dysmorphic toenail; Eversion deformity of foot, left; HyperkeratosisStart: 01-25-2024 End: 15-00-9021Nnahkmg encounter procedurePHYSICIAN TREY [facility]-Ultrasound [place] Work Phone: Start: 96-33-8700Geiwpzlio encounterEulalia WHITFIELDMyles Work Phone: OrthopaedicsComment on above:Schedule SurgeryStart: 01-03-2024 End: 95-87-9328Msbifjj encounter procedureEulalia WHITFIELDMyles Work Phone: OrthopaedicsComment on above:History of foot surgery (Primary Dx); Eversion deformity of foot, left; Hyperkeratosis; Neuritis of left lower extremity; Diabetes mellitus type 2 with neurological manifestations (HCC); Difficulty walking; Painful scar; Pain in both feet; Neuralgia of left lower extremity; Chronic pain of left ankle; Acquired dysmorphic toenailStart: 11-20-2023 End: 73-00-2364kcnfuxowotUAIVONE Marques Work Phone: [facility] Work Phone: Start: 11-20-2023 End: 59-04-9647Cfeidtb encounter Honorio Marques Work Phone: [facility] Work Phone: Start: 50-97-3745bgagusqbxxNvprqu A Radman RT(R) RadiologyComment on above:Radiology XRStart: 11-01-2023 End: 73-11-7314Nfkqhzt encounter Alli Pollard RT(R)JHONNY RIGGS Comment on above:Eversion deformity of foot, left (Primary Dx); Hyperkeratosis; Neuritis of left lower extremity; History of foot surgery; Diabetes mellitus type 2 with neurological manifestations (HCC); Difficulty walking; Painful scarStart: 11-01-2023 End: 24-61-9342Kwdidljvqw hospital visit by Chuyita Lama Work Phone: RadiologyComment on above:Pain in left foot [M79.672] Start: 10-23-2023 End: 75-71-7897Eoqzkkqzl department patient visitPA-Johanna Marques Work Phone: [facility]-Emergency Room Work Phone: Start: 10-23-2023 End: 91-72-3243Uuhbuszan department patient visitPA-Johanna Marques Work Phone: [facility]-Emergency Room Work Phone: Start: 08-20-2023 End: 46-41-7882Atoinupwd department patient visitPA-Johanna Marques Work Phone: [facility]-Emergency Room Work Phone: Start: 07-01-2023 End: 88-08-7797Ogiengylx department patient visitPA-Johanna Marques Work Phone: [facility]-Emergency Room Work Phone: Start: 05-23-2023 End: 56-61-7020Hlywfsbsi department patient visitPA-Johanna Marques Work Phone: [facility]-Emergency Room Work Phone: Start: 21-22-8140Myoknmnby for preprocedural laboratory examinationAYAKA [facility] Akrontart: 03-25-2023 End: 46-01-9834Uuniselug for preprocedural laboratory examinationHEALTH SERVICES FAMILYFacility:Z0Hkime: 03-25-2023 End: 68-79-0846izeuepmcmnPTJWVO SERVICES FAMILYFacility:U6Jwcjk: 15-28-0244Omxte UpdateGa Krystal Shelli Work Phone: [phone]-Uogqk [facility] DO Work Phone: Start: 74-19-8055cqwbrihhjuHcJey Koehler Facility:[id number]: 32-71-3295Wlzxudd encounter procedureLoretaayaka Krystal Marques Work Phone: [phone]-Vnigl [facility] [address] [place] Work Phone: Start: 64-90-0947molhtixhckAl. Krystal Koehler Facility:[id number]: 34-94-0996Iqkrwin encounter procedureGa Marques Work Phone: [phone]-Yiorf [facility] [address] [place] Work Phone: Start: 60-99-7969nnygpzijlmFi. Krystal Koehler Facility:[id number]: 46-87-7539Qontg UpdateThayaka Rice Marques Work Phone: [phone]-Kuxgz [facility] [address] DO Work Phone: Start: 02-18-2023 End: 92-66-6955rsvkrwjqcgRJIVONE Marques Work Phone: [facility] Work Phone: Start: 02-18-2023 End: 42-68-3122Nedxnqv encounter procedureIVONE Marques Work Phone: [facility]-Lab [place] Work Phone: Start: 73-02-7348QRRW, Provider: TITUS CHANEY ULTRASOUND 01,[id number], Status: Pen, Time: 10:45 AMThayaka Krystal Marques Work Phone: [facility] [address] [facility] Work Phone: Start: 27-44-3082Kaudaw consultation new/estab patient 60 minThayaka Krystal Marques Work Phone: [phone]-Tvzcw [facility] DO Work Phone: Start: 01-13-2023 End: 34-14-8769Zuankwarz department patient visitPAJosé Marques Work Phone: [facility]-Emergency Room Work Phone: Start: 18-45-5380kjgcbyyvdnAKYORJ SERVICES FAMILY Facility:L6Mzvsb: 01-04-2023 End: 47-11-9613Sbwivuzae department patient visitPAJosé Marques Work Phone: [facility]-Emergency Room Work Phone: Start: 35-72-4608rpdschvqjkBN RIGOBERTO DUSTY .Facility:H1 Start: 12-28-2022 End: 32-74-5350wwmdoquvyjGW RIGOBERTO DUSTY .Facility:Q8Axqfi: 17-34-1096rmwjrvoemd DR RIGOBERTO DUSTY .Facility:T3Nifiu: 12-08-2022 End: 87-95-5237qkzxzgqfmoVD-C Ga Marques Work Phone: [facility] Work Phone: Start: 12-08-2022 End: 14-77-9465Ulnzknx encounter procedurePA-Johanna Marques Work Phone: [facility]-Ultrasound [place] Work Phone: Start: 12-04-2022 End: 33-88-0959vmyzydihpfTL RIGOBERTO DUSTY .Facility:N3Qmpor: 12-01-2022 End: 66-45-9325bpyeuafmylRK-Johanna Marques Work Phone: [facility] Work Phone: Start: 12-01-2022 End: 35-92-0639Ltzssom encounter procedurePAJosé Marques Work Phone: [facility]-Lab [place] Work Phone: Start: 11-30-2022 End: 91-39-5695Razlyfzzz department patient visitPA-Johanna Marques Work Phone: [facility]-Emergency Room Work Phone: Start: 69-81-7214pwnemgoxeiWG RIGOBERTO DUSTY .Facility:H1 Start: 09-21-2022 End: 33-99-4744Jpdkuwjmn department patient visitPA-Johanna Marques Work Phone: [facility]-Emergency RoomStart: 09-13-2022 End: 95-06-4865Hjojdywuk department patient visitIVONE Ga Marques Work Phone: [facility]-Emergency RoomStart: 08-15-2022 End: 09-81-8956Csxbufw encounter procedureIVONE Ga Marques Work Phone: [facility]-Lab Main CampusStart: 08-03-2022 End: 27-06-6783Ffheoolqw department patient visitIVONE Ga Marques Work Phone: [facility]-Emergency RoomStart: 07-21-2022 End: 12-17-8122Pecjpeo encounter procedureYOUNGJohanna Marques Work Phone: [facility]-Lab Main CampusStart: 07-09-2022 End: 15-09-7034Vntiajv encounter procedureEulalia Fuentes DPM Work Phone: OrthopaedicsComment on above:Pain in both feet (Primary Dx); Hyperkeratosis; Neuritis of left lower extremity; Neuralgia of left lower extremity; History of foot surgery; Diabetes mellitus type 2 with neurological manifestations (HCC); Chronic pain of left ankle; Acquired dysmorphic toenail; Difficulty walkingStart: 06-29-2022 End: 79-50-7361Sqrcbaihe department patient visitIVONE Ga Marques Work Phone: [facility]-Emergency RoomStart: 88-40-3474ztvqraautvKG COREY FAZIO .Facility:Q5Cusjn: 06-15-2022 End: 41-23-0655Sebrfyp encounter procedureYOUNGJohanna Marques Work Phone: [facility]-Lab Main CampusStart: 05-26-2022 End: 79-56-4971Vdddspwix department patient visitIVONE Ga Marques Work Phone: [facility]-Emergency RoomStart: 05-21-2022 End: 83-61-2042Ifxthpomd to same day surgery centerIVONE Marques Work Phone: [facility]-Surgery Center Main CampusStart: 05-17-2022 End: 15-20-7722Jsjvpay encounter procedureIVONE Marques Work Phone: [facility]-Pre-Surgical Testing Start: 05-11-2022 End: 80-76-5767Rqcqgbx encounter procedureIVONE Marques Work Phone: [facility] [facility] Start: 04-30-2022 End: 48-53-5740Tgetjse encounter procedureEulalia Fuentes DPM Work Phone: OrthopaedicsComment on above:Hyperkeratosis (Primary Dx); Neuritis of left lower extremity; Neuralgia of left lower extremity; History of foot surgery; Diabetes mellitus type 2 with neurological manifestations (HCC)Start: 03-17-2022 End: 67-33-9810Wkgoopc encounter procedureJ.W. [facility] CenterStart: 03-08-2022 End: 69-83-3304Wmfjaiagv department patient visitJ.W. [facility]- Emergency RoomStart: 40-41-2456Satpgbevj encounterEulalia Fuentes DPM Work Phone: [phone] InstituteComment on above:Patient QuestionStart: 02-20-2022 End: 61-51-9510Qbxxuowpf department patient visitJ.W. [facility]- Emergency RoomStart: 01-09-2022 End: 97-51-2515Cbhxsvjhj department patient visitJ.W. [facility]- Emergency RoomPreoperative stateThayaka Rice Shelli Work Phone: [phone]-Uxpgl [facility] [address] DO Work Phone: Procedures DateProcedureProcedure DetailPerforming ClinicianStart: 43-50-2238Qmsuuyxwsj exam chest 2 viewsCharles Johanna Gonzálese PA-C Work Phone: Start: 07-28-2025 End: 87-62-7169Kzrbfszyllfpb metabolic panelCharles Jhoanna Cid PA-C Work Phone: Start: 95-34-7794Zqrwl blood ph direct buzz xcpt pulse oximitryCharles Johanna Cid PA-C Work Phone: Start: 42-15-9323Sywmosnqy virus A and B and SARS-CoV-2 (COVID-19) identified in Respiratory specimen by CODY with probe detectionAlex Cid PA-C Work Phone: Start: 16-42-5200Cyrzwy echographyPHYSICIAN NO FAMILY Start: 99-81-4183Xjwymqfsqllt echographyPHYSICIAN NO FAMILYStart: 06-28-2025 DebridementPHYSICIAN NO FAMILYStart: 09-49-0845WUARLDE POCT GLUCOMETERSDeerk Viera MD Work Phone: Start: 30-05-4269Bkttbqfjnbjsnyr of left breast PHYSICIAN NO FAMILYStart: 06-16-2025 End: 01-49-7084Ypnstrksn mammographyPHYSICIAN NO FAMILYStart: 82-63-9377Qwfrn X- ray of right shoulderPHYSICIAN NO FAMILYStart: 53-31-6898MAP,APTIMA HPV,AGE GDLN Iris FONTENOT Work Phone: Start: 70-61-1810Earfvvsjxzb observation [Identifier] in Cervix by Cyto stainCorey [employer] DO Work Phone: Start: 71-62-7748TUBJFYGAY VAGINITIS (HTRX)Rigoberto [employer] DO Work Phone: Start: 64-21-7420Kpiap dip stick/tablet rgnt non-auto w/o micrscpCorey Dusty DO Work Phone: Start: 82-28-4237YA of abdomen and pelvis without contrastStart: 00-02-7379W-ray of right footStart: 85-15-7056MRQ CBC WITH AUTO DIFFCorey [employer] DO Work Phone: Start: 37-85-9392GUA 12-LEADCorey [employer] DO Work Phone: Start: 46-13-3069Arhfuo echographyPHYSICIAN NO FAMILY Start: 93-87-5821Ggijicehvusq echographyPHYSICIAN NO FAMILYStart: 01-25-2024 Pelvic echographyPHYSICIAN NO FAMILYStart: 93-76-2326Afzabbcvo mammography of bilateral breastsPA-C Ga Marques Work Phone: Start: 52-27-6182Uloob foot complete minimum 3 views Eulalia Fuentes DPM Work Phone: Start: 28-78-4938HI of abdomen and pelvis without contrastPA-C Ga Marques Work Phone: Start: 07-55-1940Fvqdh X-ray of bilateral femursPA-C Ga Marques Work Phone: Start: 70-27-9422FappksnixhjcfosgDjzjxq A Marques Work Phone: Start: 56-98-4983Pextg chest X-rayPA-C Ga Marques Work Phone: Start: 41-13-7780Tdauyq echographyPA-C Ga Marques Work Phone: Start: 26-98-2325Vbbaeuzvpyf observation [Identifier] in Cervix by Alexis Koehler MD Work Phone: Start: 96-39-6693Ykmdt X-ray of left handPA-C Ga Marques Work Phone: Start: 67-92-0881Qppwg chest X-rayPA-C Ga Marques Work Phone: Start: 82-65-6424Gbavu X-ray of left shoulderPA-C Ga Marques Work Phone: Start: 15-58-6711Uddgz X-ray of left wristPA-C Ga Marques Work Phone: Start: 10-47-2018VU Wound Debridement/I&D/Hydradenitis (Right)PA-Johanna Ga Marques Work Phone: Start: 00-75-7014F-ray of lumbar spine, four or more viewsStart: [...] Work Phone: Plan of Treatment DateCare ActivityDetailAuthorStart: 90-53-7354Chhlrw Vaccines (1 of 2)Zoster Vaccines (1 of 2)[facility]: 85-19-5046JRcH/Tdap/Td Vaccines (2 - Td or Tdap)DTaP/Tdap/Td Vaccines (2 - Td or Tdap)[facility]: 71-51-5196Hlses microalbumin profileDTaP,Tdap,Td Vaccine (2 - Td or Tdap)[facility]: 52-58-8481Ojwwthjyt for malignant neoplasm of cervixSelect [facility]ty [facility]: 56-62-3249Yibatepoe for malignant neoplasm of cervixNOMS HealthcareStart: 70-02-3694Iobufuhzo for malignant neoplasm of breastNOMS HealthcareStart: 75-60-2866Qwixuy Adult PhysicalYearly Adult PhysicalUnDetwiler Memorial Hospitalart: 12-27-2025 End: 62-43-3422Ffayrlw encounter eslwvdndz13/02/2026 10:00 AM EST Office Visit [facility] [address] [facility] [address] [place] [address] Krystal Koehler MD [address] [facility] [address] [place] [address] [facility]: 83-10-7884Kvhnxjilu for malignant neoplasm of cervixUnKettering Health Greene [facility]: 38-09-3945Jijduirxuz A1c measurementDiabetes: Hemoglobin X9ZOPWX HealthcareStart: 10-04-2025 End: 77-53-4140Sqxoaat encounter ybktbnwvb17/10/2025 1:20 PM EST Consult DUDLEY SILVEIRA [address] [facility] [place] [address] Rigoberto Montano DO [address] [facility] [place] [address] DUDLEY ROQUEtart: 09-14-2025 End: 58-89-4318Ctxgdap encounter kltrcvqiy77/21/2025 10:15 AM EDT Office Visit Podiatry [address] [place] [address] Eulalia Fuentes DPM [address] [place] [address] Post op bilateral toes, SX 09/09/25PodiatryComment on above:Post op bilateral toes, SX 09/09/25Start: 09-09-2025 End: 91-65-0090Qjtzlszms to same day surgery rtbhyp3909/09/2025 2:05 PM EDT - 09/09/2025 3:20 PM EDT Surgery Ambulatory Surgery [address] [facility] [place] [address] Eulalia Fuentes DPM [address] [place] [address] EXCISION OF NAIL & MATRIX FOR PERMANENT REMOVALAmbulatory SurgeryComment on above:EXCISION OF NAIL & MATRIX FOR PERMANENT REMOVALStart: 09-09-2025 End: 65-56-8983Esxbergx nail matrix permanent removalEXCISION OF NAIL & MATRIX FOR PERMANENT REMOVAL Acquired dysmorphic toenail Pain in toes of both feet Difficulty walking Pain of toes of both feet 09/09/2025 2:05 PM EDC [facility] [place] Start: 42-56-2285Xehoowmviq hospital visit by mqyjcnkkt32/16/2025 2:05 PM EDT Hospital Encounter Ambulatory Surgery [address] [place] [address] Eulalia Fuentes DPM [address] [place] [address] 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], Pain in toes of both feet [M79.674, M79.675], Difficulty walking [R26.2], Pain of toes of both feet [M79.674, M79.675]Ambulatory SurgeryComment on above: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], Pain in toes of both feet [M79.674, M79.675], Difficulty walking [R26.2], Pain of toes of both feet [M79.674, M79.675]Start: 08-26-2025 End: 13-83-7858Rmxalxn encounter tcbsfpymm70/02/2025 12:40 PM EDT PAT Pre Anesthesia [address] [place] [address] PAC bilateral toenails, SX 09/09/25Pre AnesthesiaComment on above:PACC bilateral toenails, SX 09/09/25Start: 69-76-5487ZGGWT-19 Vaccine ( season) COVID-19 Vaccine ( season)[facility]: 36-68-1575SBAJU-19 Vaccine ( season)COVID-19 Vaccine ( season)[facility]: 60-26-1543Tjrrijxtb vaccinationUniversity of Missouri Health Care Start: 07-09-2025 End: 87-73-2125Mbymlhk encounter pmqvfafxf37/15/2025 10:30 AM EDT Office Visit [facility] [address] [address] Derek Viera MD [address] [address] [facility] AssociatesStart: 06-28-2025 End: 32-72-5663GlmwakusqMercy Health West Hospitaltart: 06-01-2025 End: 80-44-7678Zktdphg encounter jdpgcfoul05/08/2025 10:50 AM EDT Office Visit [facility] [address] [facility] [place] [phone] Rigoberto Montano, DO [address] [facility] [place] [address] [facility] OBStart: 05-24-2025 End: 32-48-2437WF Breast - bilateral DiagnosticBilateral diagnostic mammogram Imaging Routine Breast tenderness in female Expected: 05/24/2025 (Approximate), Expires: 07/24/2026[facility] Work Phone: comment on above:Expected: 05/24/2025 (Approximate), Expires: 07/24/2026Start: 05-24-2025 End: 15-27-3705Xxykibh encounter procedureNOMS BCP OBComment on above:Arrived Start: 05-03-2025 End: 71-14-2600Mhjpbygiwk A1c/Hemoglobin.total in BloodHemoglobin A1c Lab Routine Type 2 diabetes mellitus with other skin complications Expected: 05/03/2025 (Approximate), Expires: 05/03/2026NOMS HealthcareComment on above: Expected: 05/03/2025 (Approximate), Expires: 05/03/2026Start: 05-03-2025 End: 30-15-1815ZS PelvisUS Pelvis w/ TV Imaging Routine Pelvic pain in female Expected: 05/03/2025, Expires: 11/02/2025[facility] Work Phone: Comment on above:Expected: 05/03/2025, Expires: 11/02/2025Start: 05-03-2025 End: 60-95-9798Ttsrnni encounter mgmheglqx98/09/2025 11:10 AM EDT Office Visit [facility] [address] [facility] [address] [phone] Rigoberto Montano, DO [address] [facility] [place] [address] ArrivedNOMS BCP OBComment on above:ArrivedStart: 02-08-2025 End: 20-82-6672Sgxihap encounter vfcrpyfbg98/17/2025 9:30 AM EDT Office Visit Orthopaedics [address] [place] [address] Eulalia Fuentes DPM [address] [place] [address] Left foot follow upOrthopaedicsComment on above:Left foot follow upStart: 01-11-2025 End: 82-13-7075Zljyb metabolic 2000 panel - Serum or PlasmaBasic Metabolic Panel Lab Routine Primary hypertension Diabetes mellitus type II, non insulin depend ent (Multi) Mixed hyperlipidemia Hypokalemia Expected: 01/11/2025, Expires: 01/11/2026[facility] Work Phone: Comment on above:Expected: 01/11/2025, Expires: 01/11/2026Start: 01-11-2025 End: 85-41-7092Tahqjixllodkk metabolic 1999 panel - Serum or PlasmaComprehensive Metabolic Panel Lab Routine Primary hypertension Diabetes mellitus type II, non insulin dependent (Multi) Mixed hyperlipidemia Hypokalemia Expected: 01/11/2025, Expires: 01/11/2026[facility] Work Phone: Comment on above:Expected: 01/11/2025, Expires: 01/11/2026Start: 01-11-2025 End: 81-61-0588Gnuun 1996 panel - Serum or PlasmaLipid Panel Lab Routine Mixed hyperlipidemia Expected: 01/11/2025, Expires: 01/11/2026[facility] Service Area Work Phone: Comment on above:Expected: 01/11/2025, Expires: 01/11/2026Start: 01-11-2025 End: 08-08-9950Fsmpmgo encounter inkkgzuio95/17/2025 10:00 AM EST Office Visit [facility] [address] [facility] [address] [place] [address] Krystal Koehler MD [address] [facility] [address] [place] [address] [facility]: 01-04-2025 End: 77-63-7669Uttbxsv encounter pplmaikhx44/10/2025 9:30 AM EST Office Visit Orthopaedics [address] [facility] [place] [address] Eulalia Fuentes DPM [address] [place] [address] Left foot follow upOrthopaedicsComment on above:Left foot follow upStart: 11-30-2024 End: 97-78-2014Hpcvgee encounter hramofarj48/06/2025 9:20 AM EST Office Visit [facility] [address] [facility] [place] [phone] Rigoberto Montano, [address] [facility] [place] [address] [facility] OBStart: 11-06-2024 End: 09-41-6762Rnlacue encounter uicqvkklz62/13/2024 10:45 AM EST Office Visit Orthopaedics [address] [place] [address] Eulalia Fuentes DPM [address] [place] [address] Left foot follow upOrthopaedicsComment on above:Left foot follow upStart: 14-21-0902Yxrcg chest X-rayXR chest 1V [facility] Start: 48-80-4840MR Chest Single [facility]: 08-31-2024 End: 05-31-0740Relggxl encounter adwsnxabl02/07/2024 10:00 AM EDT Office Visit Orthopaedics [address] [place] [address] Eulalia Fuentes DPM [address] [place] [address] Post op 12 wks left foot, SX 05/01/24OrthopaedicsComment on above:Post op 12 wks left foot, SX 6/7/24Start: 07-30-2024 End: 40-53-7644Fjiliui encounter gdxbjjiuk85/05/2024 10:40 AM EDT Office Visit [facility] [address] [facility] [place] [phone] Iris Samson PA [address] [facility] [place] [address] ArrivedNOMS BCP OBComment on above:ArrivedStart: 07-26-2024 COVID-19 Vaccine ( season)COVID-19 Vaccine ( season) [facility]: 10-81-3613Xfdbv-19 Vaccine ( season)Covid-19 Vaccine ( season)[facility]: 07-26-2024 Covid-19 Vaccine ()Covid-19 Vaccine () [facility]: 42-56-2680Xxsekqqzs vaccinationOhioHealth Grant Medical Centertart: 07-13-2024 End: 73-60-8159Ddkrxwf encounter procedureOrthopaedicsComment on above:Post op 12 wks left foot, SX 05/01/24Start: 07-06-2024 End: 94-43-7197Kpzyjyrciueov metabolic 2000 panel - Serum or PlasmaComprehensive Metabolic Panel Lab Routine Primary hypertension Expected: 07/06/2024 (Approximate), Expires: 07/06/2025[facility] Service Area Work Phone: Comment on above:Expected: 07/06/2024 (Approximate), Expires: 07/06/2025Start: 07-06-2024 End: 31-94-2342Lkabd 1996 panel - Serum or PlasmaLipid Panel Lab Routine Hyperlipidemia, unspecified hyperlipidemia type Expected: 07/06/2024 (Approx imate), Expires: 07/06/2025[facility] Work Phone: Comment on above:Expected: 07/06/2024 (Approximate), Expires: 07/06/2025Start: 07-06-2024 End: 22-69-8830Kxiwesg encounter jogvgjleb79/12/2024 10:00 AM EDT Office Visit [facility] [address] [facility] [address] [place] [address] Krystal Koehler MD [address] [facility] [address] [place] [address] [facility]: 06-29-2024 End: 66-28-8477Uqosobd encounter viercikjb95/05/2024 1:15 PM EDT Office Visit Orthopaedics [address] [place] [address] Eulalia Fuentes DPM [address] [place] [address] Post Op 12 wks Left foot Sx 04/10/24OrthopaedicsComment on above:Post Op 12 wks Left foot Sx 04/10/24Start: 24-58-6421Fzuywkrqlb A1c measurementOhioHealth Grant Medical Centertart: 06-17-2024 End: 12-99-2033Euvkrnr encounter voynovlgv86/24/2024 9:45 AM EDT Office Visit Orthopaedics [address] [place] [address] Eulalia Fuentes DPM [address] [place] [address] Post op 6 wks left foot, SX 05/01/24OrthopaedicsComment on above:Post op 6 wks left foot, SX 05/01/24Start: 06-08-2024 End: 38-16-7597Gfbsapa encounter /15/2024 11:30 AM EDT Office Visit Orthopaedics [address] [place] [address] Eulalia Fuentes DPM [address] [place] [address] Post op 6 wks left foot, SX 05/01/24OrthopaedicsComment on above:Post op 6 wks left foot, SX 05/01/24Start: 06-08-2024 End: 80-65-8452hjxhujmxxv01/15/2024 8:15 AM EDT [facility] Orthopaed[facility] [address] [place] [address] Eulalia Fuentes DPM [address] [place] [address] Post op 6 wks left foot, SX 05/01/24OrthopaedicsComment on above:Post op 6 wks left foot, SX 05/01/24Start: 06-08-2024 End: 87-17-3128Puaqdyi encounter unzgadlqb57/15/2024 8:15 AM EDT Office Visit Orthopaedics [address] [place] [address] Eulalia Fuentes DPM [address] [place] [address] Post op 6 wks left foot, SX 05/01/24OrthopaedicsComment on above:Post op 6 wks left foot, SX 05/01/24Start: 05-21-2024 End: 70-20-6200Rblsrrc encounter idxqbqlhd32/27/2024 1:15 PM EDT Office Visit Orthopaedics [address] [place] [address] Eulalia Fuentes DPM [address] [place] [address] Post Op 6 wks Left foot Sx 04/10/24OrthopaedicsComment on above:Post Op 6 wks Left foot Sx 04/10/24Start: 05-20-2024 End: 14-56-3661Pgxgctd encounter kkinuyaes01/26/2024 11:30 AM EDT Office Visit Orthopaedics [address] [place] [address] Eulalia Fuentes DPM [address] [place] [address] Post op 3 wks left foot, SX 05/01/24OrthopaedicsComment on above:Post op 3 wks left foot, SX 05/01/24Start: 05-07-2024 End: 14-52-6832Vfuubwk encounter xksigkgzy74/13/2024 10:15 AM EDT Office Visit Orthopaedics [address] [place] [phone] Eulalia Fuentes DPM [address] [place] [address] Post op left foot, SX 05/01/24OrthopaedicsComment on above:Post op left foot, SX 05/01/24Start: 05-04-2024 End: 90-96-6168Zmymfyn encounter qpkaetjsu75/10/2024 1:15 PM EDT Office Visit Orthopaedics [address] [place] [address] Eulalia Fuentes DPM [address] [place] [address] Post Op 3 wks Left foot Sx 04/10/24OrthopaedicsComment on above:Post Op 3 wks Left foot Sx 04/10/24Start: 05-01-2024 End: 76-64-3331Dybvcblyd to same day surgery eevqdm9205/01/2024 7:30 AM EDT - 05/01/2024 9:10 AM EDT Surgery Ambulatory Surgery [address] [place] [address] Eulalia Fuentes DPM [address] [place] [address] EXCISION BENIGN CYST/MASS LESION LOWER EXTREMITY < 0.5CMAmbulatory SurgeryComment on above:EXCISION BENIGN CYST/MASS LESION LOWER EXTREMITY < 0.5CMStart: 05-01-2024 End: 71-65-6518Mym b9 lesion mrgn xcp sk tg t/a/l 0.5 cm/<EXCISION BENIGN CYST/MASS LESION LOWER EXTREMITY < 0.5CM History of foot surgery DM (diabetes mellitus), 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 05/01/2024 7:30 AMEDSELECT SPECIALTY HOSPITAL-QU[facility] CIT[facility] LORAINStart: 95-17-6140Hxuekcwvss hospital visit by vpsihxwdm96/07/2024 7:30 AM EDT Hospital Encounter Ambulatory Surgery [address] [place] [address] Eulalia Fuentes DPM [address] [place] [address] History of foot surgery [Z98.890]Ambulatory SurgeryComment on above:History of foot surgery [Z98.890]Start: 05-01-2024 End: 57-50-0392Fuqjknj encounter akkuqecth31/07/2024 7:00 AM EDT Office Visit Pre Admission Testing [address] [place] [address] Ruby- updatePre Admission TestingComment on above:Ruby- updateStart: 04-27-2024 End: 26-16-2981Agsaieh encounter lmnrzcrni62/03/2024 11:45 AM EDT Office Visit Orthopaedics [address] [place] [address] Eulalia Fuentes DPM [address] [place] [address] Pre-op per JOSSY Castellon on 05/01/24OrthopaedicsComment on above:Pre-op per JOSSY Castellon on 05/01/24Start: 04-15-2024 End: 76-55-9776Usjrgkv encounter pqggcegbv37/22/2024 1:30 PM EDT Office Visit Orthopaedics [address] [place] [address] Eulalia Fuentes DPM [address] [place] [address] Post Op Left foot Sx 04/10/24OrthopaedicsComment on above:Post Op Left foot Sx 04/10/24Start: 04-10-2024 End: 04-15-3377Xoqcogfrg to same day surgery wsxtat6204/10/2024 2:20 PM EDT - 04/10/2024 4:05 PM EDT Surgery Ambulatory Surgery [address] [place] [address] Eulalia Fuentes DPM [address] [facility] [place] [address] EXCISION BENIGN CYST/MASS LESION LOWER EXTREMITY < 0.5CMAmbulatory SurgeryComment on above:EXCISION BENIGN CYST/MASS LESION LOWER EXTREMITY < 0.5CMStart: 04-10-2024 End: 06-30-7509Srk b9 lesion mrgn xcp sk tg t/a/l 0.5 cm/<EXCISION BENIGN CYST/MASS LESION LOWER EXTREMITY < 0.5CM History of foot surgery DM (diabetes mellitus), 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 04/10/2024 2:20 [facility] [place]AINStart: 38-76-2023Tqkmxfgsii hospital visit by hvymhlgzx29/17/2024 2:20 PM EDT Hospital Encounter Ambulatory Surgery [address] [place] [address] Eulalia Fuentes DPM [address] [place] [address] History of foot surgery [Z98.890]Ambulatory SurgeryComment on above:History of foot surgery [Z98.890]Start: 03-23-2024 End: 38-62-3990Rwqfw 1996 panel - Serum or PlasmaLipid Panel Lab Routine Diabetes mellitus type II, non insulin dependent (Multi) Hyperlipidemia, uns pecified hyperlipidemia type Expected: 03/23/2024 (Approximate), Expires: 03/23/2025[facility] Service Area Work Phone: Comment on above:Expected: 03/23/2024 (Approximate), Expires: 03/23/2025Start: 03-20-2024 End: 36-60-4782Mrimjaepqx qbtoksunqktm99/26/2024 10:20 AM EDT PAT Pre Anesthesia [address] [facility] [place] [address] 2,Pacc Hephzibah [address] [place] [address] Pacc Left foot Sx 04/10/24Pre AnesthesiaComment on above:Pacc Left foot Sx 04/10/24Start: 57-31-9771Qyzgqtlmmg Health ScreeningBehavioral Health ScreeningOhioHealth Grant Medical Centertart: 11-25-2023 Depression AssessmentDepression AssessmentOhioHealth Grant Medical Centertart: 07-26-2023 COVID-19 Vaccine ( season)COVID-19 Vaccine ( season) [facility]: 64-79-8162Rnurc-19 Vaccine ()Covid-19 Vaccine ()[facility]: 07-26-2023 Influenza vaccinationInfluenza Vaccine (#1)[facility]: 05-23-2023 Plain X-ray of bilateral femursXR femur [facility] Start: 15-61-1799EI Femur - bilateral ViewsMercy Health [facility] Start: 86-40-4727PnpdfytppoiAoxynwurs ScreeningOhioHealth Grant Medical Centertart: 2023 Screening for malignant neoplasm of breastOhioHealth Grant Medical Centertart: 79-60-5559LTI, Provider: Krystal Koehler, Status: Pen, Time: 11:00 AMFUV, Provider: Krystal Koehler, Status: Pen, [facility]: 11:00 [facility] 250 DO Work Phone: Start: 64-38-1052Mjucaxabwl and management of inpatientInpatient EncounterFacility:H8Onjzt: 31-18-6642bcxjupibudWydfhddgau Facility:U7Hbori: 78-87-1581QTT, Provider: Krystal Koehler, Status: Pen, Time: 11:00 AMFUV, Provider: Krystal Koehler, Status: Pen, Time: 11:00 [facility] 250 DO Work Phone: Start: 80-25-4232WOIR ONLY, Provider: TITUS ROWEI NUCLEAR ,[id number], Status: Pen, Time: 8:30 AMREST ONLY, Provider: TITUS HHVI NUCLEAR ,[id number], Status: Pen, Time: 8:30 AM[facility] 250 DO Work Phone: Start: 07-87-7978PCVABTLLY7, Provider: TITUS HHVI NUCLEAR 01,[id number], Status: Pen, Time: 10:00 AMSTRESSNUC2, Provider: TITUS HHVI NUCLEAR 01,[id number], Status: Pen, Time: 10:00 AMMPWinona [facility] [place] 250 DO Work Phone: Start: 69-17-8913VDJR, Provider: TITUS HHVI ULTRASOUND 01,[id number], Status: Pen, Time: 2:30 PMECHO, Provider: TITUS HHVI ULTRASOUND 01,[id number], Status: Pen, Time: 2:30 PMJackson [facility] Centerusky 250 DO Work Phone: Start: 45-06-5155Mdymb chest X-rayXR chest 1V portable [facility] Hospitaltart: 19-11-2742JX Chest Single viewMercy Health West Hospitaltart: 83-51-3135Ponds X-ray of left handXR hand LT min 3V*[facility] Hospitaltart: 62-16-7616RL Hand - left GE 3 Views [facility]: 56-25-2951Wxcoyqoyer Assessment Depression AssessmentOhioHealth Grant Medical Centertart: 69-66-8912Zgmuzmrfi vaccination [facility]art: 07-21-2022 End: 16-36-8517Ujjdzyd encounter procedureDeparted ClinicalOhiohealth Dublin [facility] Ctr-Lab Main CampusStart: 88-92-8234YSKAV-19 VACCINE (3 - Booster for Pfizer series)COVID-19 VACCINE (3 - Booster for Pfizer series)[facility] Start: 65-40-3072CbprgtruhOhiohealth Dublin Methodist Hospital Ctr Work Phone: Start: 92-02-4649CpxqfttmlOhiohealth Dublin Methodist Hospital Ctr Work Phone: Start: 63-01-3911QBN TESTINGHPV TESTINGOhioHealth Grant Medical Centertart: 19-29-6505Getbuttls for malignant neoplasm of cervixHPV Testing [facility]ertart: 17-58-0915QGF Vaccine (1 - 3-dose SCDM series)HPV Vaccine (1 - 3-dose SCDM series)[facility]: 34-09-0321MOG Vaccines (1 - 3- dose standard series)[facility]: 26-27-4301MSU TESTINGPAP TESTINGOhioHealth Grant Medical Centertart: 07-74-5594Flhkngijx for malignant neoplasm of cervixOhioHealth Grant Medical Centertart: 37-42-3229CNNPTEPOR B (1 of 3 - Risk 3- dose series)HEPATITIS B (1 of 3 - Risk 3-dose series)[facility]: [phone] B Vaccine (1 of 3 - 19+ 3-dose series)Hepatitis B Vaccine (1 of 3 - 19+ 3-dose series)[facility]: [phone] B Vaccines (1 of 3 - 19+ 3-dose series)Hepatitis B Vaccines (1 of 3 - 19+ 3-dose series) [facility]: [phone] vaccination Pneumococcal Vaccine (1 of 2 - PCV)[facility]: [phone] Vaccine: Pediatrics (0 to 5 Years) and At-Risk Patients (6 to 64 Years) (1 of 2 - PCV)Pneumococcal Vaccine: Pediatrics (0 to 5 Years) and At-Risk Patients (6 to 64 Years) (1 of 2 - PCV)[facility]: [id number] Vaccine: Pediatrics and At-Risk Adult Patients (1 of 2 - PCV)Pneumococcal Vaccine: Pediatrics and At-Risk Adult Patients (1 of 2 - PCV)[facility]: 50-12-0530Tlcbc microalbumin profileDTAP,TDAP,TD (1 - Tdap) [facility]: 31-53-4837Oxeeh screening for proteinDiabetes: Urine Protein ScreeningUnKettering Health Greene Memorial: 62-82-1812DHCYMZ PCP TEAM CHRONIC DISEASE VISITANNUAL PCP TEAM CHRONIC DISEASE VISITCincinnati Va Medical Center Start: 49-71-5964Kyoiqps ScreeningAnxiety ScreeningOhioHealth Grant Medical Centertart: 95-56-3271Ikofrfefue ScreeningDepression ScreeningOhioHealth Grant Medical Centertart: 54-85-6668Fmvfmqjqk B surface antibody levelLDL CHOLESTEROLCincinnati Va Medical Center Start: 16-16-6015EPCODGYLC C SCREENINGHEPATITIS C SCREENINGCincinnati Va Medical Center Start: 96-04-5423Ipkuwabbk C screeningHepatitis C ScreeningCincinnati Va Medical Center Start: 88-89-2965TVL SCREENINGHIV SCREENINGOhioHealth Grant Medical Centertart: 75-46-1251VLL screeningHIV ScreeningOhioHealth Grant Medical Centertart: 62-91-0999XUNZZPNMXNYIJHOURYLZ [facility]: 16-14-6473GKJ PNEUMOVAX PRIOR TO AGE 65ONE PNEUMOVAX PRIOR TO AGE 65[facility]: 50-01-1080Elcqdsp of varicella vaccination Varicella Vaccines (1 of 2 - 13+ 2-dose series)[facility] Care[facility] Varicella vaccinationVaricella Vaccines (1 of 2 - 13+ 2-dose series)[facility]: 45-07-0660Mutox depression screening assessment DEPRESSION SCREENINGOhioHealth Grant Medical Centertart: 05-22-19933 comp foot exam completed DIABETIC FOOT EXAMOhioHealth Grant Medical Centertart: 20-89-5439Wqigittm foot examination [facility]: 57-84-2141Haqartvk screeningOhioHealth Grant Medical Centertart: 56-60-0061Vuedvsusp B screeningURINE ALBUMIN:CREATININE RATIOCincinnati Va Medical Center Start: 55-99-6926Lzyspuemf C antibody, confirmatory testDILATED RETINAL EXAM [facility]: 66-53-2973HUvV/Tdap/Td Vaccines (1 - Tdap)DTaP/Tdap/Td Vaccines (1 - Tdap)[facility] Care[facility]: 32-65-4899ESIGNNMNZVZY (1 - PCV) PNEUMOCOCCAL (1 - PCV)[facility]: 10-47-1577Srzgfcliravj vaccination [facility]: 41-19-5324Gmjnzpjzgcmc Vaccine: Pediatrics (0 to 5 Years) and At-Risk Patients (6 to 64 Years) (1 of 2 - PCV)Pneumococcal Vaccine: Pediatrics (0 to 5 Years) and At-Risk Patients (6 to 64 Years) (1 of 2 - PCV) [facility]: 73-93-1206Iabckaellx A1c measurement FkK4NRpwujbjocOhioHealth Grant Medical Centertart: 78-74-7447Eahhyyozua A1c/Hemoglobin.total in Blood JAW0ERpfttsvmmOhioHealth Grant Medical Centertart: 69-01-2167LJX Vaccines (1 of 1 - Standard series)MMR Vaccines (1 of 1 - Standard series)[facility]: 68-33-9304JGWXKVWNR B (1 of 3 - 3-dose series)HEPATITIS B (1 of 3 - 3-dose series)[facility]: 20-49-2739Zmzavkgvv B Vaccine (1 of 3 - 3-dose series)Hepatitis B Vaccine (1 of 3 - 3-dose series)[facility]: 45-95-5344LWK screeningHIV ScreeningUnKettering Health Greene Memorial: 94-77-7190Gxfhp panelLipid PanelUnKettering Health Greene Memorial: 54-27-6851Vmeme screening for proteinDiabetes: Urine Protein ScreeningSelect [facility]ty [facility] [place]: 54-01-2988Wmupha Adult PhysicalYearly Adult PhysicalUnCincinnati Shriners HospitalBacteria identified in Urine by Culture [facility] HospitalCHLAMYDIA TRACHOMATIS (GENITO/STI)CHLAMYDIA TRACHOMATIS (GENITO/STI) Lab Routine Pelvic pain in female Ordered: 05/03/2025 NOMS HealthcareComment on above:Ordered: 05/03/2025 End: 31-66-2667Owkyepizpizcldozii ( test) [Presence] in UrinePOCT , urine Point of Care Testing STAT Once (Lab) for 1 Occurrences starting 07/28/2025 until 07/28/2025[facility] Work Phone: comment on above:Once (Lab) for 1 Occurrences starting 07/28/2025 until 07/28/2025 End: 34-68-0478IFF 12 [facility] Service Area Work Phone: comment on above:Every 1 hour for 2 Occurrences starting 07/28/2025 until 07/28/2025Glucose measurement estimated from glycated hemoglobinJ.W. Ruby Memorial Hospital Work Phone: Hemoglobin A1c/Hemoglobin.total in BloodJ.W. Ruby Memorial Hospital Work Phone: Neisseria gonorrhoeae DNA [Presence] in Unspecified specimen by CODY with probe detectionNeisseria gonorrhea DNA probe, direct Lab Routine Pelvic pain in female Ordered: 05/03/2025NOIL HealthcareComment on above:Ordered: 05/03/2025 End: 07-56-4482Ximwoozyaeg review of Blood testsSouthview Medical Center Work Phone: Comment on above:Once (Lab) for 1 Occurrences starting 07/28/2025 until 07/28/2025, 1 completedPatient EducationOhiohealth Dublin Methodist Hospital Ctr Work Phone: Patient referralOhiohealth Dublin Methodist Hospital Ctr Work Phone: SURESWAB(R) ADVANCED VAGINITIS PLUS, TMASURESWAB(R) ADVANCED VAGINITIS PLUS, TMA Pathology and Cytology Routine Pelvic pain in female Ordered: 05/03/2025[facility] Work Phone: comment on above:Ordered: 05/03/2025THIN PREP TIS PAP AND HR HPV DNATHIN PREP TIS PAP AND HR HPV DNA Pathology and Cytology Routine Well woman exam with routine gynecological exam Ordered: 05/24/2025[facility] Work Phone: comment on above:Ordered: 05/24/2025[facility] Immunizations Immunization DateImmunizationNotesCare FmjgipczIeybndfu28-57-9705Fhxeuoqtd 30 MCG/0.3ML Intramuscular SuspensionLoretaomas A Shelli Work Phone: [phone]-MdnhcMadelia Community Hospital 250 DO Work Phone: [phone]) [phone]vgsn toxoid, reduced diphtheria toxoid, and acellular pertussis vaccine, adsorbedLoretaomas A Shelli Work Phone: [facility]02-23-2022Comirnaty 30 MCG/0.3ML Intramuscular SuspensionThomas A Shelli Work Phone: mpTwo Twelve Medical Centery 250 DO Work Phone: [phone]) 545-795203-488472-86-8475RLOAV-30 mRNA, Comirnaty (Pfizer)IVONE Marques Work Phone: [facility]02-23-2021COVID-19 mRNA, Comirnaty (Pfizer)IVONE Marques Work Phone: [facility] Payers DatePayer CategoryPayerPolicy [id number] 2022Medicaid (Managed Care)[employer] [id number] Health InsuranceCARESOFAIRVIEW REG[facility] Member Subscriber Plan / Payer (Effective 2021-Present) Name: Gary Vigil N Relation to Subscriber: Self Name: Gary Vigil N Payer ID: Not on file Group ID: [id number] Type: Not on file Address: [address] [place] [id number] 2020MedicaidCARESOURCE MEDICAID [facility] MEDICAID [id number] 2020- [phone] [address] [place] [address] [id number] 2020Medicaid [id number] 01.10.840.1.104469.3.57[id number] 2.840.1.580531.3.57[id number] 2.840.1.560369.3.57[id number] 2.840.1.214739.3.579.2.59570-98-0939Sonvhxq3527566 2.0.1.257527.3.579.2.20117-63-3411Xmojtqw8011471 2.0.1.218533.3.579.2.08920-79-9358Zzclnlb1258495 2..1.418760.3.579.2.00045-03-6827Ijzikcj7395629 2..1.947566.3.579.2.19821-23-5649Ovpznmk6257498 2..1.924083.3.579.2.13290-89-9237Yyackdy0532424 2..1.049337.3.579.2.52742-16-3774Rtovngb2362738 2..1.473668.3.579.2.34634-63-4034Dvkzapv44488116 2..1.129715.3.579.2.985434-84-0684Letrkwl28383458 2..1.366098.3.579.2.373469-48-6802Gmhenxu15860992 2..1.002983.3.579.2.932110-39-8926Vjlghad35521801 2..1.339240.3.579.2.325697-80-8438Atogffi183901261 2.0.1.222103.3.579.2.404849-39-2381Nzjybid10315095 2.16.840.1.237991.3.579.2.558294-98-9762Pzdqnkf174425720 2..1.963798.3.579.2.146574-11-6356Wzwkoxc357611229 2..1.332304.3.579.2.822826-38-6433Tyshfmb833990916 2..1.660439.3.579.2.522206-59-6575Pzzwsnz56851042 2..1.692922.3.579.2.650352-71-9056Mdegjun67012050 2..1.655099.3.579.2.703679-67-1095Uuqejdg38988941 2..1.570651.3.579.2.649724-88-2083Wplqsue25394953 2..1.101140.3.579.2.592258-59-0657Vwfxxww64886114 2..1.914815.3.579.2.731132-64-7837Fzkuljz9281790 2..1.294752.3.579.2.1259 [id number]-mfx 0982h42b-z999-2zc7-0q3g-bl14mxz1248g8[id number] 6561r313-7826-62i0-6e10-00445847c7s1Manodsn40347768 2..1.026323.3.579.2.452Mqewsrt97045670 2..1.217883.3.579.2.531 Rhshahi91180403 2..1.361126.3.579.2.855Mytxwov97412933 2.16.840.1.434155.3.579.2.119Vvkzgoe25010806 2.16.840.1.492216.3.579.2.531 Bzsnbjl29948880 2.16.840.1.235495.3.579.2.619Pfqyujc23928273 2.16.840.1.315302.3.579.2.782Vsihhrx73679309 2.16.840.1.519597.3.579.2.531 Lpsigxg93030273 2.16.840.1.269727.3.579.2.574Smvqvjq56694052 2.16.840.1.741653.3.579.2.901Nmkxpjn99514372 2.16.840.1.417780.3.579.2.531 Xwxjwec91814751 2.16.840.1.018149.3.579.2.394Fdlfgzh35575359 2.16.840.1.757494.3.579.2.458Usjqcsz33053837 2.16.840.1.514904.3.579.2.531 Social History DateTypeDetailFacilityStart: 02-20-2022 End: 02-55-2516Abkyver smoking status NHISSmoker (finding)[facility]tart: 84-14-5043Tns Assigned At BirthFeMary Rutan HospitalTobacimarron memorial hospital [facility] smoking status NHISTobacco smoking consumption unknown [facility]: 04-73-7797Rah Assigned At BirthNot on fileOhioHealth Grant Medical Centertart: 02-02-2022 End: 45-40-8844Xbnlchwb to SARS-CoV-2 (event)Not sureOhioHealth Grant Medical Centertart: 10-25-2023 End: 01-24-6905Is alcohol useNo alcohol useCincinnati Va Medical CenterComment on above:11-25;Start: 10-25-2023 End: 90-56-1745Xxknhme Health Questionnaire 2 item (PHQ-2) [Reported][facility]: 01-04-2023 End: 47-31-5883Qbpso Depression Screening Ddlkgjyfvk7Fwzvvvqqb ClinicStart: 03-20-2024 End: 26-98-0066Lwssugx smoking status NHISSmokes tobacco dailyCincinnati Va Medical Center Start: 00-97-4013Hcfpapj of tobacco useCigarette SmokerOhioHealth Grant Medical Centertart: 03-20-2024 End: 87-36-9051Jlxzmhx use and exposureSmokeless tobacco non-userOhioHealth Grant Medical Centertart: 81-11-9567Rpwqdsu intakeEx-drinker (finding)[facility]: 89-86-8937Hatborm CommentPatient states she was formerly smoking 6 packs per day until 2020. Has cut down to 1.5-2 packs perday now.[facility]: 03-23-2024 End: 44-54-9816Gmzrchvoo beverage intakeLifetime non-drinker (finding)[facility] Work Phone: Start: 10-04-2024 End: 08-61-9545SbqAigsec (finding)[facility] Hospitaltart: 33-69-5129Dujfhp identityIdentifies as female gender (finding)[facility] Start: 37-70-4699Eotmlc orientationHeterosexual (finding)[facility] HealthcareStart: 14-96-8178Nrhgiqk smoking status NHISOccasional tobacco smokerUnCincinnati Shriners Hospital Work Phone: Start: 03-20-2025 End: 71-89-6954Dbobdee smoking status NHISNever smoked tobacco (finding) [facility] HospitalNEGATED: Highlighted [facility] HospitalNEGATED: Highlighted [facility] Medical Equipment Procedure CodeEquipment CodeEquipment Original TextEquipment IdentifierDates twice daily. TEST TWICE [id number]: 19-14-4798Zlwjvfs on above:twice daily. TEST TWICE DAILY Goals DatePatient GoalDesired Activity/StatePersonal health goal Functional Status BckhAqmzowghkxAigivmLybnzpud50-12-0475Yhyugcxa - suicide severity rating scale screener - recent [C-SSRS][facility] Work Phone: Clinical Notes 03-06-2022 to 09-27-2025 Note Date & QlugVkssEkykofgi51-43-2289 NoteHNO ID: [id number] Author: EULALIA FUENTES DPM Service: ? Author [...] gave out my personal mobile telephone number [phone] to call at anytime if needed. ANABELLA StephensFulton County Health Center10-21-2025 NoteHNO ID: [id number] Author: EULALIA FUENTES DPM Service: ? Author [...] Level: 10 Pain Location: (leeroy foot) Description: /Infant, Aching, Contraction, Cramping, Cutting, Dressing Change, Incision, [...] gave out my personal mobile telephone number [phone] to call at anytime if needed. Instructed that if I am not available should contact the motion picture narrator sample hand or go to the emergency room. Eulalia Fuentes D.P.M.[facility]09-16-2025 Telephone encounter Note* Telephone Encounter - Sugar Gibbs - 08/10/2025 11:13 AM EDT ----- Message from Eulalia Fuentes DPM sent at 08/10/2025 10:44 AM EDT ----- Surgical Plan: RIGHT and LEFT FOOT Phenol partial matrixectomy of toenail second toe 11695 MAC (Monitored Anesthesia Care - IV sedation) 1 hour Special equipment needed Phenol E11.42 Type 2 diabetes mellitus with diabetic polyneuropathy, unspecified whether prison insulinuse (HCC) (primary encounter diagnosis) R26.2 Difficulty walking Z68.39 BMI 39.0-39.9,adult M21.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, left R52, L90.5 Painful scar L60.8 Acquired dysmorphic toenail M79.674, M79.675 Pain in toes of both feet [facility] Work Phone: 1(802) 516-668909-16-2025 Miscellaneous Notes* Telephone Encounter - Sugar Gibbs - 08/10/2025 11:13 AM EDT ----- Message from Eulalia Fuentes DPM sent at 08/10/2025 10:44 AM EDT ----- Surgical Plan: RIGHT and LEFT FOOT Phenol partial matrixectomy of toenail second toe 30119 MAC (Monitored Anesthesia Care - IV sedation) 1 hour Special equipment needed Phenol E11.42 Type 2 diabetes mellitus with diabetic polyneuropathy, unspecified whether continuous 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 insulinuse (HCC) (primary encounter diagnosis) R26.2 Difficulty walking Z68.39 BMI 39.0-39.9,adult M21.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, left R52, L90.5 Painful scar L60.8 Acquired dysmorphic toenail M79.674, M79.675 Pain in toes of both feet documented in this encounterCincinnati Va Medical Center09-16-2025 NoteHNO ID: [id number] Author: EULALIA FUENTES DPM Service: ? Author [...] diabetes mellitus with diabetic polyneuropathy, unspecified whether continuous 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 insulin use (HCC) (primary encounter diagnosis) R26.2 Difficulty (more content not included)...[facility] 08-10-2025 History of Present illness Narrative* Eulalia [...] feet at work all day now at [employer] PCP: No primary care provider on file. [...] 50 mg by mouth daily at bedtime. WiseBanyan ULTRA TEST test strip twice daily. TEST [...] diabetes mellitus with diabetic polyneuropathy, unspecified whether continuous 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 insulinuse (HCC) (primary encounter diagnosis) R26.2 Difficulty [...] Phenol partial matrixectomy of toenail second toe 00403 MAC (Monitored Anesthesia Care - IV sedation) Special equipment needed Phenol .42 Type 2 diabetes mellitus with diabetic polyneuropathy, unspecified whether continuous 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 insulinuse (HCC) (primary encounter diagnosis) R26.2 Difficulty [...] Drug use: Not Currently documented in this encounterCincinnati Va Medical Center09-10-2025 History of Present illness Narrative* CORIE Chu [...] nursing note reviewed. Exam conducted with a bulk intake worker present. Vitals: Estimated body mass index is [...] behalf of: CORIE Chu documented in this encounterUniversity of Missouri Health CareBytzjldkwz94-33-2356 Hospital Discharge instructions* Discharge Instructions* Alex Cid [...] new or worsening symptoms. documented in this encounterSouthview [facility] Center Work Phone: 1(503) 174-257609-03-2025 Emergency department Triage note* Albino Garcia RN - 07/28/2025 2:51 PM EDT Patient to ED with c/o flu symptoms x Saturday. C/o sob, cough, congestion. Hx HTN, DM2, migraines,fibromyalgia, asthma. [facility] Work Phone: 1(472) 107-464209-03-2025 Emergency department Note* Albino Garcia RN - 07/28/2025 2:51 PM EDT Patient to ED with c/o flu symptoms x Saturday. C/o sob, cough, congestion. Hx HTN, DM2, migraines,fibromyalgia, asthma. documented in this encounterSouthview Medical Center Work Phone: 1(418) 379-655408-18-2025 History of Present illness Narrative* Derek Servin [...] a primary care physician. documented in this encounterUniversity of Missouri Health CareUouzexhxae16-61-0554 Radiology Diagnostic study [facility] [place] [address] Ultrasound Report Signed Patient: Gary Vigil MR#: [id number] : 1985 Acct:[id number] Age/Sex: 40 / F ADM Date: 5 Loc: Room: Type: [facility] Attending Dr: WENDY Nuno APRNC Ordering Provider: Kelsea Joseph APRN, CNP Date of Service: 06/28/25 US/US pelvic complete: R10.2 ([id number]) US/US transvaginal: R10.2 Copies to: Kelsea Joseph [...] Jr., D.OJey 06/28/2025 2:03 PM Dictation Location: [place] [address] Tech: Taty Lerner Transcribed By: DESHAWN 06/28/25 1403 Dictated By: Raymon Ruelas Jr, DO 06/28/25 1356 Signed By: 06/28/25 1403 [facility]07-25-2025 History of Present illness Narrative * [...] m Physical Exam Exam conducted with a bulk intake worker present. Constitutional: General: She is not in [...] a primary care provider. documented in this encounterUniversity of Missouri Health CareYtbgwsiyoz03-52-7452 Radiology Diagnostic study [facility] [place] [address] [place] [address] Ultrasound Report Signed Patient: Gary Vigil MR#: [id number] : 1985 Acct:[id number] Age/Sex: 40 / F ADM Date: 5 Loc: [place] Room: Type: [facility] Attending Dr: Kelsea Joseph APRN, NP-C Ordering Provider: Kelsea Joseph APRN, CNP Date of Service: 06/16/25 MM/MM diagnostic mammo BI w/CAD: N64.4 ([id number]) US/US breast LT limited: ABNORMAL MAMM LEFT [...] Maddox M.D. 06/16/2025 2:25 PM Dictation Location: [facility] Tech: Paola Putnam; Nannette Martin Transcribed By: DESHAWN 06/16/25 142 Dictated By: Jan Maddox MD 06/16/251422 Signed By: 06/16/25 142 [facility] Work Phone: 1(450) 423-558307-19-2025 Hospital Discharge instructions Additional Instructions Warm compresses several times a day to area affected Take antibiotic as instructed until gone Tylenol or Naprosyn if needed for pain Avoid picking, poking, popping area affected Follow-up with general surgery/PCP for recheck in the next 3 to 5 days General surgery's name and numbers providedJ.W. Ruby Memorial Hospital Work Phone: 1(781) 226-157606-30-2025 History of Present illness Narrative* Kelsea Joseph, [...] nursing note reviewed. Exam conducted with a bulk intake worker present. Vitals: Estimated body mass index is [...] behalf of: CORIE Chu documented in this encounterUniversity of Missouri Health CareEtkzdxxcbz25-48-7940 History of Present illness Narrative* Kelsea Joseph [...] disorder Cervicitis Depression (CMS/HCC) Depression (CMS/HCC) Diabetes ([facility]) Diabetic peripheral neuropathy associated with type 2 diabetes mellitus ([facility]/HCC) Fibromyalgia H/O psychiatric care Heart disease History of high blood pressure History of migraine headaches Hypercholesterolemia ([facility]/HCC) Hyperkalemia Hyperlipidemia ([facility]/HCC) Hypertension ([facility]/HCC) IBS (irritable bowel syndrome) Kidney disease Liver disease Menorrhagia Mood disorder ([facility]/HCC) Neuritis Obesity Smoker Thyroid disease ([facility]/HCC) Trichimoniasis Vaginal itching HISTORY PAST MEDICAL HISTORY SOCIAL HISTORY Past Medical History: Diagnosis Date Abdominal cramping Abnormal uterine bleeding Anemia Anxiety Asthma Bipolar disorder Cervicitis Depression ([facility]/HCC) Depression ([facility]/HCC) Diabetes ([facility]) Diabetic peripheral neuropathy associated with type 2 diabetes mellitus ([facility]/HCC) Fibromyalgia H/O psychiatric care Heart disease History of high blood pressure History of migraine headaches Hypercholesterolemia ([facility]/HCC) Hyperkalemia Hyperlipidemia ([facility]/HCC) Hypertension ([facility]/HCC) IBS (irritable bowel syndrome) Kidney disease Liver disease Menorrhagia Mood disorder ([facility]/HCC) Neuritis Obesity Smoker Thyroid disease ([facility]) Trichimoniasis Vaginal itching Social History Tobacco Use [...] nursing note reviewed. Exam conducted with a bulk intake worker present. Vitals: Estimated body mass index is [...] of: Rigoberto Montano DO documented in this encounterUniversity of Missouri Health CareAhpmgwgvkf13-55-0794 Radiology Diagnostic study [facility] [place] [address] [place] [address] CT Scan Report Signed Patient: Gary Vigil MR#: [id number] : 1985 Acct:[id number] Age/Sex: 39 / F ADM Date: 5 [...] Jan Maddox M.D.02/10/2025 3:41 PM Dictation Location: [place] [address] Transcribed By: [facility] 02/10/25 1541 Dictated By: Jan Maddox MD 02/10/25 1538 Signed By: 02/10/25 1541 [facility] Work Phone: 1(182) 412-255302-17-2025 History of Present illness Narrative* Krystal Koehler [...] of Krystal Koehler MD. documented in this encounterSouthview Medical Center Work Phone: 1(889) 700-346802-17-2025 Instructions* Patient Instructions* Malia Valdivia LPN - [...] Provided instructions on exercise. documented in this encounterSouthview Medical Center Work Phone: 1(809) 720-243902-10-2025 NoteHNO ID: [id number] Author: EULALIA FUENTES DPM Service: ? Author [...] hyperkeratosis Dystrophic toenails bilate (more content not included)...[facility]02-10-2025 History of Present illness Narrative* Eulalia FuentesWILL [...] patient. Eulalia Fuentes DPM documented in this encounterCincinnati Va Medical Center01-10-2025 NoteHNO ID: [id number] Author: EULALIA FUENTES DPM Service: ? Author [...] CD X-ray of feet from [facility] PCP: No primary care provider on [...] of multiple deep hyperkeratosi (more content not included)...[facility]01-10-2025 History of Present illness Narrative* Eulalia Fuentes [...] CD X-ray of feet from [facility] PCP: No primary care provider on [...] 50 mg by mouth daily at bedtime. WiseBanyan ULTRA TEST test strip twice daily. TEST [...] patient. Eulalia Fuentes DPM documented in this encounterCincinnati Va Medical Center11-11-2024 NoteHNO ID: [id number] Author: EULALIA FUENTES DPM Service: ? Author [...] 50 mg by mouth daily at bedtime. WiseBanyan ULTRA TEST test strip twice daily. TEST [...] hallux valgus surgery Depress (more content not included)...[facility]11-11-2024 History of Present illness Narrative* Eulalia Fuentes [...] (diabetes mellitus), type 2 with neurological complications ([facility]) M79.2 Neuralgia of left lower extremity M25.572, [...] patient. Eulalia Fuentes DPM documented in this encounterCincinnati Va Medical Center10-07-2024 History of Present illness Narrative* Eulalia Fuentes [...] 50 mg by mouth daily at bedtime. WiseBanyan ULTRA TEST test strip twice daily. TEST [...] patient. Eulalia Fuentes DPM documented in this encounterCincinnati Va Medical Center09-13-2024 Telephone encounter Note * Telephone Encounter - Heavenly Dao - 08/07/2024 8:53 AM EDT Type of form: Short-term Disability Form received via walk in When form is completed, Form has been forwarded to handing off form directly to Margie Grubbs [facility]09-13-2024 Miscellaneous Notes* Telephone Encounter - Heavenly Dao - 08/07/2024 8:53 AM EDT Type of form: Short-term Disability Form received via walk in When form is completed, Form has been forwarded to handing off form directly to Margie Grubbs documented in this encounterCincinnati Va Medical Center09-09-2024 Telephone encounter Note * Telephone Encounter - Margie Pa OCCA - 08/03/2024 4:59 PM EDT Form was obtained in [place]. It is being scanned into the chart and will be completed and faxed outtomorrow. [facility]09-09-2024 Miscellaneous Notes* Telephone Encounter - Margie Pa OCCA - 08/03/2024 4:59 PM EDT Form was obtained in [place]. It is being scanned into the chart and will be completed and faxed outtomorrow. * Telephone Encounter - Margie Pa OCCA - 08/03/2024 4:40 PM EDT Called and informed patient we have not received a new fax from [employer]. She informed me they sentone 2 days [...] notes from 07/22 to be faxed to [employer]. Please advise * Telephone Encounter - Sera Bynum - 07/30/2024 2:41 PM EDT Gary is calling Eulalia Fuentes DPM today with concern regarding dropping off paperwork tomorrow to office & have it filled out right away States this is Medical paperwork for her current workplace Please advise [phone] Patient has been identified by name and birthdate. Duration of symptoms: N/A Person calling: self Call patient at: on cell [phone] (home) [phone] (cell) Was an appointment scheduled: No Closing statement: Results or non-symptom based questions: Thank you for calling [facility], your call will be returned within the next business day. Sera Bynum documented in this encounterCincinnati [facility] Center09-09-2024 Telephone encounter Note * Telephone Encounter - Margie Pa OCCA - 08/03/2024 4:40 PM EDT Called and informed patient we have not received a new fax from [employer]. She informed me they sentone 2 days ago and she sent one from her local library today. Informed patient I will reach out andsee if this paperwork was obtained. [facility]09-09-2024 Telephone encounter Note* Telephone Encounter - Yelena Momin - 08/03/2024 2:55 PM EDT Patient is calling again asking if you received the fax she sent today as mentioned below. Patient is asking for a call back today as she has not heard back since early last week. Please advise. [facility]09-09-2024 Telephone encounter Note* Telephone Encounter - Marley Pereira - 08/03/2024 10:22 AM EDT Patient calling again, advising that she is faxing in paperwork today that she needs filled out forher workplace [employer]. She is including the return fax # with that as well. She is also requesting most recent office notes from 07/22 to be faxed to [facility]. Please advise [facility]09-05-2024 Telephone encounter Note* Telephone Encounter - Sera Bynum - 07/30/2024 2:41 PM EDT Gary is calling Eulalia Fuentes DPM today with concern regarding dropping off paperwork tomorrow to office & have it filled out right away States this is Medical paperwork for her current workplace Please advise [phone] Patient has been identified by name and birthdate. Duration of symptoms: N/A Person calling: self Call patient at: on cell [phone] (home) [phone] (cell) Was an appointment scheduled: No Closing statement: Results or non-symptom based questions: Thank you for calling [facility], your call will be returned within the next business day. Sera Bynum [facility]09-05-2024 History of Present illness Narrative* CORIE Chu [...] cramping Abnormal uterine bleeding Anemia Anxiety Asthma ([facility]) Bipolar disorder ([facility]) Cervicitis Depression ([facility]) Depression ([facility]) Diabetes ([facility]) Diabetic peripheral neuropathy associated with type 2 diabetes mellitus ([facility]) Fibromyalgia H/O psychiatric care Heart disease History of high blood pressure History of migraine headaches Hypercholesterolemia ([facility]) Hyperkalemia Hyperlipidemia ([facility]) Hypertension ([facility]) IBS (irritable bowel syndrome) Kidney disease Liver disease Menorrhagia Mood disorder ([facility]) Neuritis Obesity Smoker Thyroid disease ([facility]) Trichimoniasis Vaginal itching HISTORY PAST MEDICAL HISTORY SOCIAL HISTORY Past Medical History: Diagnosis Date Abdominal cramping Abnormal uterine bleeding Anemia Anxiety Asthma ([facility]) Bipolar disorder ([facility]) Cervicitis Depression ([facility]) Depression ([facility]) Diabetes ([facility]) Diabetic peripheral neuropathy associated with type 2 diabetes mellitus ([facility]) Fibromyalgia H/O psychiatric care Heart disease History of high blood pressure History of migraine headaches Hypercholesterolemia ([facility]) Hyperkalemia Hyperlipidemia ([facility]) Hypertension ([facility]) IBS (irritable bowel syndrome) Kidney disease Liver disease Menorrhagia Mood disorder ([facility]) Neuritis Obesity Smoker Thyroid disease ([facility]) Trichimoniasis Vaginal itching Social History Tobacco Use [...] healing well,abdomen soft. We will send in [place] for pain. Pathology not yet returned, we will follow up as needed Documented by CORIE Chu on behalf of: CORIE Chu documented in this encounterUniversity of [place] Health [id number] History of Present illness Narrative* Eulalia Fuentes [...] month Eulalia Fuentes DPM documented in this encounterCincinnati [facility] Center08-16-2024 Telephone encounter Note * Telephone Encounter - Heavenly Dao - 07/10/2024 4:17 PM EDT Type of form: Short-term Disability Form received via fax When form is completed, Form has been forwarded to Dr. Fuentes's mail slot at [facility] check-out Heavenly Grubbs [facility]08-16-2024 Miscellaneous Notes* Telephone Encounter - Heavenly Dao - 07/10/2024 4:17 PM EDT Type of form: Short-term Disability Form received via fax When form is completed, Form has been forwarded to Dr. Fuentes's mail slot at [facility] check-out Heavenly Grubbs documented in this encounterCincinnati Va Medical Center08-12-2024 History of Present illness Narrative* Krystal Koehler [...] in 2 hours if unresolved. Do not mg in 24 hours. rOPINIRole (REQUIP) 1 [...] exam, discussion and plan. documented in this encounterSouth[facility] Work Phone: 1(202) 444-979008-12-2024 Instructions* Patient Instructions* Marlys Mari LPN - [...] from a cardiac standpoint documented in this [facility] Work Phone: 1(850) 318-139207-30-2024 History of Present illness Narrative* Eulalia FuentesWILL [...] gave out my personal mobile telephone number [phone] to call at anytime if needed. Instructed that if I am not available should contact the motion picture narrator sample hand or go to the emergency room. Social : daughter is getting Aug 21 Eulalia Fuentes DPM documented in this encounterCincinnati [facility] Medical Center07-15-2024 History of Present illness Narrative* Eulalia Fuentes DPM - 06/08/2024 3:46 PM EDT Technical difficulty with virtual visit today. Virtual visit converted to telephone call. Follow up call to patient Still having symptoms plantar foot at site of surgery She will come in for in person visit as soon as possible. Eulalia Fuentes DPM documented in this encounterCincinnati [facility] Medical Center07-12-2024 Telephone encounter Note * Telephone Encounter - Margie Pa OCCA - 06/05/2024 2:00 PM EDT Called and left a voicemail switched appointment to virtual. [facility]07-12-2024 Miscellaneous Notes* Telephone Encounter - Margie Pa [...] pt seen on 06/08/24. documented in this encounterCincinnati [facility] Medical Center07-12-2024 Telephone encounter Note * Telephone Encounter - [...] VV.--please advise when pt seen on 06/08/24. [facility]06-26-[facility] History of Present illness Narrative* Eulalia Fuentes [...] gave out my personal mobile telephone number [phone] to call at anytime if needed. Instructed that if I am not available should contact the motion picture narrator sample hand or go to the emergency room. Recommend off work for now due to delayed healing, post operative pain Diabetes related delayed healing Eulalia Fuentes DPM documented in this encounterCincinnati [facility] Center06-18-2024 Telephone encounter Note * Telephone Encounter - Margie Pa OCCA - 05/12/2024 10:05 AM EDT spoke with the patient on the phone and provided guidance and treatment options. Instructedpatient to go to the emergency room if symptoms worse and she is schedule to be seen by the provider next week. [facility]06-18-2024 Miscellaneous Notes* Telephone Encounter - Margie Pa [...] to assist with above documented in this encounterCincinnati [facility] Center06-17-2024 Telephone encounter Note * Telephone Encounter - [...] transferred to ortho to assist with above [facility]06-13-2024 History of Present illness Narrative* Eulalia Fuentes [...] gave out my personal mobile telephone number [phone] to call at anytime if needed. Instructed that if I am not available should contact the motion picture narrator sample hand or go to the emergency room. Eulalia Fuentes DPM documented in this encounterCincinnati [facility] Medical Center06-11-2024 Telephone encounter Note * Telephone Encounter - Margie Pa OCCA - 05/05/2024 3:15 PM EDT Called and spoke with patient new paperwork was suppose to be faxed over to the [place] office yesterday. Informed patient I will be in [place] tomorrow and will keep and eye out for the paperwork to be completed and sent out as soon as possible. Informed her we are allocated 7-10 business days to complete the forms. [facility]06-11-2024 Miscellaneous Notes* Telephone Encounter - Margie Pa OCCA - 05/05/2024 3:15 PM EDT Called and spoke with patient new paperwork was suppose to be faxed over to the [place] office yesterday. Informed patient I will be in [place] tomorrow and will keep and eye out [...] calling: self Call patient at: on cell [phone] (home) [phone] (cell) Was an appointment scheduled: No Closing statement: Results or non-symptom based questions: Thank you for calling [facility], your call will be returned within the next business day. Jael Reese documented in this encounterCincinnati [facility] Center06-11-2024 Telephone encounter Note * Telephone Encounter - [...] calling: self Call patient at: on cell [phone] (home) [phone] (cell) Was an appointment scheduled: No Closing statement: Results or non-symptom based questions: Thank you for calling [facility], your call will be returned within the next business day. Jael Reese [facility]06-03-2024 History of Present illness Narrative* Eulalia Fuentes [...] patient. Eulalia Fuentes DPM documented in this encounterCincinnati Va Medical Center05-21-2024 Telephone encounter Note * Telephone Encounter - [...] Cobb LPN April 14, 2024 8:51 AM [facility]05-21-2024 Miscellaneous Notes* Telephone Encounter - Elodia Cobb [...] 14, 2024 8:51 AM documented in this encounterCincinnati [facility] Medical Center05-15-2024 Telephone encounter Note * Telephone Encounter - [...] had to be rescheduled. Thank you, Sugar [facility] Work Phone: [phone] Miscellaneous Notes* Telephone Encounter - Sugar Gibbs [...] let you know that [facility] and she has an [...] may leave any message. documented in this encounterCincinnati [facility] Medical Center05-13-2024 Telephone encounter Note * Telephone Encounter - Nina Bernal RN - 04/06/2024 3:30 PM EDT The pt is calling, she just wanted to let you know that she [facility] and she has an [...] in contacts and may leave any message. [facility]04-30-2024 Telephone encounter Note* Telephone Encounter - Lissette Saleh - 03/24/2024 9:48 AM EDT Faxed FMLA form to [employer] [phone] Received fax confirmation Spoke with patient Will have scanned into records. [facility]04-30-2024 Miscellaneous Notes* Telephone Encounter - Lissette Saleh - 03/24/2024 9:48 AM EDT Faxed FMLA form to [employer] [phone] Received fax confirmation Spoke with patient Will have scanned into records. * Telephone Encounter - Lissette Saleh - 03/24/2024 9:44 AM EDT Type of form: FMLA Form received via fax When form is completed, Fax form to Form [place] [facility] [place] Saleh documented in this encounterCincinnati [facility] Center04-30-2024 Telephone encounter Note * Telephone Encounter - Lissette Saleh - 03/24/2024 9:44 AM EDT Type of form: FMLA Form received via fax When form is completed, Fax form to Form has been [place] [facility] [place]issette Saleh [facility]04-29-2024 History of Present illness Narrative* Krystal Koehler [...] in 2 hours if unresolved. Do not hkywab75 mg in 24 hours. rOPINIRole (REQUIP) 1 [...] of Krystal Koehler MD. documented in this encounterSouthview Medical Center Work Phone: 1(756) 276-220004-29-2024 Instructions* Patient Instructions* Malia Valdivia LPN - [...] time of your visit. documented in this encounterSouthview Medical Center Work Phone: 1(326) 410-401504-26-2024 History and physical note* Letty Virk APRN.LILLY [...] index (BMI) of36.0 to 36.9 in adult ([facility]) Assessment: Body mass index is 36.65 kg/m [...] COVID-19 original vaccine, age 12+ yr, monovalent ([employer] [facility]) 01/17/2022 Imm Admin: COVID-19 original vaccine, age 12+ yr, monovalent ([employer] [facility]) 02/07/2021 Outside Immunization: COVID-19 mRNA, Comirnaty ([employer]) 01/17/2021 Outside Immunization: COVID-19 mRNA, Comirnaty ([employer]) REVIEW OF SYSTEMS: PAIN ASSESSMENT: Pain Pain Level: 8 Pain Location: Foot-Left Description: Aching, Sharp Duration Units: Years Frequency: Continuous Intervention/Comfort measure: Medication, Positioning General: No weight loss, malaise or fevers. Neuro: No history of TIA's, stroke, HEART COORDINATOR tumor, impaired sensorium, hemiplegia, paraplegia or quadraplegia. No neurological symptoms or problems. +Migraines Respiratory: Negative for Bronchitis, COPD, Current cough, Home O2 +Tobacco Use +KADEN +Asthma Cardiovascular: Negative for Recent AR, Angina, Chest Pain, PVD, DVT/PE +HLD GI: Negative for Nausea, Vomiting, Abdominal pain +GERD : Negative for dysuria, incontinence, hematuria, and hesitancy NOZZLEMAN: Negative for abnormal vaginal bleeding, abnormal vaginal [...] Gary Vigil DATE: 03/20/2024 TIME: 10:18 AM [facility]04-26-2024 History and physical note* Letty Virk APRN.CNP [...] Follows with PCP Type 2 diabetes mellitus ([facility]) Assessment: On ity (Sundays) to hold 7 [...] index (BMI) of36.0 to 36.9 in adult ([facility]) Assessment: Body mass index is 36.65 kg/m [...] COVID-19 original vaccine, age 12+ yr, monovalent ([employer] [facility] [employer] - [facility]) 01/17/2022 Imm Admin: COVID-19 original vaccine, age 12+ yr, monovalent ([employer] [facility] [facility]) 02/07/2021 Outside Immunization: COVID-19 mRNA, Comirnaty ([employer]) 01/17/2021 Outside Immunization: COVID-19 mRNA, Comirnaty ([employer]) REVIEW OF SYSTEMS: PAIN ASSESSMENT: Pain Pain Level: 8 Pain Location: Foot-Left Description: Aching, Sharp Duration Units: Years Frequency: Continuous Intervention/Comfort measure: Medication, Positioning General: No weight loss, malaise or fevers. Neuro: No history of TIA's, stroke, HEART COORDINATOR tumor, impaired sensorium, hemiplegia, paraplegia or quadraplegia. No neurological symptoms or problems. +Migraines Respiratory: Negative for Bronchitis, COPD, Current cough, Home O2 +Tobacco Use +KADEN +Asthma Cardiovascular: Negative for Recent AR, Angina, Chest Pain, PVD, DVT/PE +HLD GI: Negative for Nausea, Vomiting, Abdominal pain +GERD : Negative for dysuria, incontinence, hematuria, and hesitancy NOZZLEMAN: Negative for abnormal vaginal bleeding, abnormal vaginal [...] 03/20/2024 TIME: 10:18 AM documented in this encounterCinc[facility] Center04-25-2024 Instructions* Patient Instructions* Letty Virk APRN.CNP - 03/19/2024 1:16 PM EDT PATIENT PREOPERATIVE INSTRUCTIONS You Surgeon has scheduled you for your procedure at this surgery center: [facility]: [phone] --[address] [place] [address]. Please read below carefully for your personalized [...] Procedures: - YOU MUST HAVE A RESPONSIBLE IT APPLICATION ARCHITECT TAKE YOU HOME. A SAIL REPAIR PERSON OR CAGE SUPERVISOR CANNOT BE MADE A RESPONSIBLE IT APPLICATION ARCHITECT. - We recommend that a responsible person [...] Advance Directive, please fax a copy to [phone] or email to for it to be [...] day. Letty Virk APRN.LILLY documented in this encounterCinc[facility] Center04-23-2024 Telephone encounter Note * Telephone Encounter - Eulalia Fuentes DPM - 03/17/2024 1:46 PM EDT I discussed with the patient local topical wound care Recommend clean with sterile normal saline wound wash Use Honey (MEDIHONEY, HONEY,) 100 % paste topical Rx Cefadroxil (DURICEF) 500 mg capsule If not improved recommend follow up and further work up All questions were answered. Eulalia Fuentes DPM [facility]04-23-2024 Miscellaneous Notes* Telephone Encounter - Eulalia Fuentes [...] calling: self Call patient at: at home [phone] (home) [phone] (cell) Was an appointment scheduled: No Closing statement: Results or non-symptom based questions: Thank you for calling [facility], your call will be returned within the next business day. Darcie Henriquez documented in this encounterCinc[facility] Center04-23-2024 Telephone encounter Note * Telephone Encounter - MartinezGueroDarcie - 03/17/2024 12:33 PM EDT Gary is calling Eulaila Fuentes DPM today to request a knee [...] calling: self Call patient at: at home [phone] (home) [phone] (cell) Was an appointment scheduled: No Closing statement: Results or non-symptom based questions: Thank you for calling [facility], your call will be returned within the next business day. Darcie Henriquez [facility]04-17-2024 History of Present illness Narrative* Juhi Guidry PT, DPT - 03/11/2024 9:34 AM EDT Program_ID:[id number] Access Code: [email or web address] URL: [email or web address] Date: 03-11-2024 Prepared By: Juhi Guidry Program Notes Patient Education - Walking with Crutches: Non Weight-Bearing - Going Up and Down Stairs With Crutches ([id number]-Mdrwoi-Ynrolzc) - cc Gait Training Crutches Non Weight [...] Planned: 1 Planned Treatment Interventions: Therapeutic exercise (26543), Neuromuscular re- education (85359), Manual therapy (29405), Therapeutic activities (11011), Self- group home management (97948), Patient/Family/Caregiver Education, Body Mechanics Training, Gait Training (23900) PLAN FOR NEXT VISIT: Discharge pre-operatively. 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 Self-Assisted Management: 1: reviewed precautions and NWB restrictions, [...] Juhi Guidry KRANTHI, DPT documented in this encounterCincinnati [facility] Medical Center04-15-2024 History of Present illness Narrative* Eulalia Fuentes [...] , HBA1C , VITD25 in the last 41846 hours. ASSESSMENT: L60.0 Ingrown toenail (primary encounter [...] patient. Eulalia Fuentes DPM documented in this encounterCincinnati [facility] Medical Center03-12-2024 History of Present illness Narrative* Eulalia Fuentes DPM - 02/04/2024 5:12 PM EDT Patient called Requests overnight stay \ Not indicated at this time - should be out patient Recommend physical therapy for NWB (Non Weight Bearing) gait training Order placed Eulalia Fuentes DPM documented in this encounterCincinnati [facility] Medical Center03-12-2024 Miscellaneous Notes* Telephone Encounter - Lissette Saleh - 02/04/2024 9:08 AM EDT Spoke with patient and scheduled surgery with Dr. Fuentes on 04/10/24. Patient stated she needed to be in the hospital for 24hrs. I explained to patient that [place] was an outpatient surgery center and advised her to discuss with Dr. Fuentes. Gave patient direct phone numbers. [phone] or [phone] documented in this encounterCincinnati Va Medical Center03-11-2024 History of Present illness Narrative* Eulalia Fuentes [...] LEFT forefoot Difficulty walking She works at [employer] St[employer] on feet at work all day Altered gait Pes plano valgus deformity symptoms Also complains of pain related to ingrown toenails great toe bilateral and medial border nail thirdtoe RIGHT FOOT Other Very complicated history of LEFT lower extremity symptoms with multiple surgeries Gary has had symptoms of her left foot for over 15 years states she was initially treated in [place]. In 2018 she moved to [place] was seen by Dr. Shad Jacques Previous [...] seen by Dr. Sheng Covington DPM at [facility] She is wearing slippers today PCP: No [...] , HBA1C , VITD25 in the last 24819 hours. 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 Gary Vigil appeared to be well informed. Greater than 50% of the visit was spent face to face counseling and/or coordinating care for the patient. Eulalia Fuentes DPM documented in this encounterCinc[facility] Center02-20-2024 Miscellaneous Notes* Telephone Encounter - Margie Pa [...] calling: self Call patient at: on cell [phone] (cell) Was an appointment scheduled: No Closing statement: Results or non-symptom based questions: Thank you for calling [facility], your call will be returned within the next business day. Samantha Pires documented in this encounterCincinnati [facility] Medical Center02-09-2024 History of Present illness Narrative* Eulalia Fuentes DPM - 01/03/2024 9:23 AM EST Patient Visit for Gary Vigil 1985 38 year old female Date of Service: January 03, 2024 SUBJECTIVE: Chief Complaint: Date of Service: January 03, 2024 Additional HPI: Chief complaint today very painful hyperkeratosis plantar lateral LEFT forefoot Difficulty walking She works at [employer] Stands on feet at work all day Altered gait Pes plano valgus deformity symptoms Other Very complicated history of LEFT lower extremity symptoms with multiple surgeries Gary has had symptoms of her left foot for over 15 years states she was initially treated in [place]. In 2018 she moved to [place] was seen by Dr. Shad Jacques Previous [...] seen by Dr. Sheng Covington DPM at [facility] She is wearing slippers today PCP: No [...] , HBA1C , VITD25 in the last 87337 hours. ASSESSMENT: Z98.890 History of foot surgery [...] patient. Eulalia Fuentes DPM documented in this encounterCincinnati [facility] Medical Center12-08-2023 History of Present illness Narrative* Eulalia Fuentes [...] LEFT forefoot Difficulty walking She works at [employer] Stands on feet at work all day Altered gait Pes plano valgus deformity symptoms Other Very complicated history of LEFT lower extremity symptoms with multiple surgeries Gary has had symptoms of her left foot for over 15 years states she was initially treated in [place]. In 2018 she moved to [place] was seen by Dr. Shad Jacques Previous [...] seen by Dr. Sheng Covington DPM at [facility] She is wearing slippers today PCP: No [...] , HBA1C , VITD25 in the last 56399 hours. 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 Eulalia Fuentes DPM [facility] History of Present illness Narrative* Julianna Pollard [...] 01, 2023 11:07 AM documented in [facility] History of Present illness Narrative* Eulalia Fuentes [...] years states she was initially treated in [place]. In 2018 she moved to [place] was seen by Dr. Shad Jacques Previous [...] seen by Dr. Sheng Covington DPM at [facility] PCP: No primary care provider on file. [...] PROT, URICACID, HBA1C, VITD25 in the last 45985 hours. ASSESSMENT: M79.671, M79.672 Pain in both [...] orthotics prosthetics for custom molded Foot [facility] [phone] [facility] [phone] [facility] phone : [phone] Medically necessary for custom molded Foot Orthosis [...] patient. Eulalia Fuentes DPM documented in this encounterC[facility]06[facility] History of Present illness Narrative* Eulalia Fuentes [...] years states she was initially treated in [place]. In 2018 she moved to [place] was seen by Dr. Shad Jacques Previous [...] seen by Dr. 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 ASSESSMENT: L85.9 Hyperkeratosis (primary encounter diagnosis) [...] patient. Eulalia Fuentes DPM documented in this encounterC[facility]04[facility]12-[facility]22 Miscellaneous Notes* Telephone Encounter - Shana Howard MA - 03/06/2022 10:55 AM EDT Left a message. We have received the paperwork at the [place] office and it will be here when Dr Fuentes returns to the office. * Telephone Encounter - Tamika Lara - 02/23/2022 1:59 PM EDT Patient calling to see if [facility] ever sent over her records. Please call patient to inform. [phone] documented in this encounterCincinnati [facility] CenterEvaluation noteNo assessment information availableOhiohealth Dublin Methodist Hospital Ctr Work Phone: Evaluation note* Diagnosis Hyperkeratosis- Primary Acquired keratoderma Neuritis of left lower extremity Neuralgia of left lower extremity History of foot surgery Personal history of surgery to other organs Diabetes mellitus type 2 with neurological manifestations (HCC) Type II or unspecified type diabetes mellitus with neurological manifestations, not stated as uncontrolled [facility] Diagnosis Pain in both feet- Primary [...] Difficulty in walking [facility]* Diagnosis Eversion deformity of foot, left- [...] fibrosis of skin [facility]* Diagnosis History of foot surgery- Primary [...] disease of nail [facility]* Diagnosis Ingrown toenail- Primary Ingrowing nail [...] Hyperkeratosis Acquired keratoderma [facility]* Diagnosis History of foot surgery- Primary [...] Hyperkeratosis Acquired keratoderma documented in this encounter [facility] note* Diagnosis Type 2 diabetes mellitus with diabetic polyneuropathy, unspecified whether continuous 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 insulin 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 (HCC)- Primary BMI 39.0-39.9,adult Body [...] Hyperkeratosis Acquired keratoderma documented in this encounter [facility] note* Diagnosis Ingrown toenail- Primary Ingrowing nail [...] Hyperkeratosis Acquired keratoderma documented in this encounter [facility] note* Diagnosis Type 2 diabetes mellitus with diabetic polyneuropathy, unspecified whether prison insulin use (HCC) BMI 39.0-39.9,adult Body Mass [...] keratoderma [facility] Diagnosis Pre-op evaluation- Primary Preoperative examination, unspecified Hyperlipidemia, unspecified hyperlipidemia type Type 2 diabetes mellitus with other specified complication, without long-term current use of insulin ([facility]) Fibromyalgia Mylagia and myositis, unspecified Migraine without [...] index (BMI) of36.0 to 36.9 in adult ([facility]) History of foot surgery Personal history of [...] (BMI) of 36.0 to 36.9 in adult ([facility]) Assessment: Body mass index is 36.65 kg/m [...] Follows with PCP documented in this encounter [facility] note* Diagnosis Medication course changed- Primary Diabetes mellitus type II, non insulin dependent (Multi) Type II or unspecified type diabetes mellitus without mention of complication, not stated as uncontrolled Anemia, unspecified type Primary hypertension Unspecified essential hypertension BMI 38.0-38.9,adult Smoker Tobacco use disorder Hyperlipidemia, unspecified hyperlipidemia type documented in this encounter [facility] Work Phone: Evaluation note* Diagnosis Difficulty walking- Primary Difficulty in walking Right foot pain Pain in limb Painful scar Scar condition and fibrosis of skin Neuritis of left lower extremity Fibromyalgia Mylagia and myositis, unspecified History of foot surgery Personal history of surgery to other organs DM (diabetes mellitus), type 2 with neurological complications ([facility]) Type II or unspecified type diabetes mellitus with neurological manifestations, not stated as uncontrolled Painful scar Scar condition and fibrosis of skin Hyperkeratosis Acquired keratoderma [facility] Diagnosis Post-operative state- Primary Other postprocedural status documented in this encounter [facility] note* Diagnosis Post-operative state- Primary Other postprocedural status documented in this encounter [facility] note* Diagnosis Pre-op evaluation- Primary Preoperative [...] Other postprocedural status [facility]* Diagnosis Pain in left foot Pain [...] index (BMI) of36.0 to 36.9 in adult ([facility]) documented in this encounter [facility] note* Diagnosis Pre-op evaluation- Primary Preoperative [...] index (BMI) of36.0 to 36.9 in adult ([facility]) Left foot pain- Primary Pain in limb Post-operative state Other postprocedural status Difficulty walking Difficulty in walking Painful scar Scar condition and fibrosis of skin Diabetes mellitus type 2 with neurological manifestations ([facility]) Type II or unspecified type diabetes mellitus with neurological manifestations, not stated as uncontrolled [facility]* Diagnosis Pre-op evaluation- Primary Preoperative examination, [...] index (BMI) of36.0 to 36.9 in adult ([facility]) Painful scar- Primary Scar condition and fibrosis [...] and myositis, unspecified [facility] Diagnosis Medication course changed- Primary Primary hypertension Unspecified essential hypertension Diabetes mellitus type II, non insulin dependent (Multi) Type II or unspecified type diabetes mellitus without mention of complication, not stated as uncontrolled Hyperlipidemia, unspecified hyperlipidemia type Smoker Tobacco use disorder Preop cardiovascular exam Pre-operative cardiovascular examination documented in this encounter [facility] Work Phone: Evaluation note* Diagnosis Postoperative examination Follow-up examination, following unspecified surgery [facility] [place] [facility] Diagnosis Pre-op evaluation- Primary Preoperative examination, unspecified Hyperlipidemia, unspecified hyperlipidemia type Type 2 diabetes mellitus with other specified complication, without long-term current use of insulin ([facility]) Fibromyalgia Mylagia and myositis, unspecified Migraine without [...] index (BMI) of36.0 to 36.9 in adult ([facility]) Eversion deformity of foot, left- Primary Pain [...] stated as uncontrolled [facility]* Diagnosis Pre-op evaluation- Primary Preoperative examination, [...] index (BMI) of36.0 to 36.9 in adult ([facility]) DM (diabetes mellitus), type 2 with neurological complications ([facility])- Primary Type II or unspecified type diabetes mellitus with neurological manifestations, not stated as uncontrolled Hyperkeratosis Acquired keratoderma Pain in both feet Pain in limb Eversion deformity of foot, left Acquired dysmorphic toenail Other specified disease of nail [facility]* Diagnosis Primary hypertension Unspecified essential hypertension Diabetes mellitus type II, non insulin dependent (Multi) Type II or unspecified type diabetes mellitus without mention of complication, not stated as uncontrolled Mixed hyperlipidemia Hypokalemia Hypopotassemia BMI 33.0-33.9,adult Smoker Tobacco use disorder documented in this encounter [facility] Work Phone: Evaluation note* Diagnosis Type 2 diabetes mellitus with other skin complications- Primary Pelvic pain in female Unspecified symptom associated with female genital organs Yeast infection documented in this encounter [facility]* Diagnosis Breast tenderness in female- Primary Well woman exam with routine gynecological exam Routine gynecological examination Encounter for screening mammogram for malignant neoplasm of breast documented in this encounter [facility]* Diagnosis Left breast abscess- Primary Mass of upper inner quadrant of left breast Mass of buttock Neoplasm of uncertain behavior of skin of back Type 2 diabetes mellitus without complication, without long-term current use of insulin ([facility]) documented in this encounter [facility]* Diagnosis Epidermal inclusion cyst- Primary Sebaceous cyst Left buttock abscess documented in this encounter [facility]* Diagnosis Shortness of breath- Primary Exacerbation of asthma, unspecified asthma severity, unspecified whether persistent ([facility]) Upper respiratory tract infection, unspecified type documented in this encounter [facility] Work Phone: Evaluation note* Diagnosis Encounter for consultation documented in this encounter [facility]* Diagnosis Pre-op evaluation- Primary [...] index (BMI) of36.0 to 36.9 in adult ([facility]) Type 2 diabetes mellitus with diabetic polyneuropathy, unspecified whether prison insulin use ([facility])- Primary Difficulty walking Difficulty in walking BMI 39.0-39.9,adult Body Mass Index 39.0-39.9, adult Eversion deformity of foot, left Painful scar Scar condition and fibrosis of skin Acquired dysmorphic toenail Other specified disease of nail Pain in toes of both feet documented in this encounter [facility] note* Diagnosis Pre-op evaluation- Primary Preoperative [...] index (BMI) of36.0 to 36.9 in adult ([facility]) Acquired dysmorphic toenail- Primary Other specified disease of nail Pain in toes of both feet Difficulty walking Difficulty in walking Pain of toes of both feet Acquired dysmorphic toenail Other specified disease of nail Pain in toes of both feet Difficulty walking Difficulty in walking Pain of toes of both feet [facility] Work Phone: Hospital Discharge instructions Additional Instructions Ice to sore areas May take the naproxen twice a day for pain take with food May take the muscle relaxer cyclobenzaprine up to 3 times a day as needed for pain may make you sleepy Gentle stretching Follow-up with your family doctor for recheck as neededJ.W. [facility] Work Phone: Hospital Discharge instructionsJ.W. [facility] Work Phone: Hospital Discharge instructions Additional Instructions Follow-up with your surgeon Return to the ED if develop worsening symptoms or concernsJ.W. [facility] Hospital Work Phone: Hospital Discharge instructions Additional Instructions Avoid smoking Rest Tylenol or Naprosyn if needed for pain Warm compresses to area affected Avoid heavy lifting for the next 2 days Return here if any problems persist or worsen including increased chest pain, shortness of breath, or any other concerns as needed discussedJ.W. [facility] Work Phone: Hospital Discharge instructions Additional Instructions Take [id number] ibuprofen or Tylenol for discomfort May apply warm compresses however that does not usually help sebaceous cyst Follow-up with dermatology for removal of the cyst Return to the ER if suddenly red warm pustule or any other concernsJ.W. [facility] Work Phone: Hospital Discharge instructions Additional Instructions Use the Lidoderm pain patch as prescribed for your chest pain. Take Tylenol as needed for chest pain. Follow-up with your PCP for reevaluation in 5 to 7 days regarding your chest pain and also your abnormal EKG possible need for further outpatient cardiac testing.[facility] Work Phone: Hospital Discharge instructions Additional Instructions Warm compresses several times a day Take antibiotic as instructed until gone Avoid picking, poking, popping area affected Good hand hygiene Return here if any problems persist or worsenJ.W. [facility] Work Phone: Hospital Discharge instructions Additional Instructions Push fluids Rest Tylenol if needed for pain Apply warm compresses to your abdomen is uncomfortable Take antibiotic as instructed until gone Follow-up with your OB/GYNJ.[facility]. [facility] Work Phone: Hospital Discharge instructions Additional Instructions Follow-up with your primary care doctor Return to ED if develop worsening symptoms or concerns Double your dose of lasix for the next couple of days to help with your swelling, you will need to follow with your primary care doctor in the next week to monitor how your swelling is doing and your kidney functionOhiohealth Dublin [facility]tr Work Phone: Hospital Discharge instructions [...] abscess. This will be removed when you return.[facility] Work Phone: Hospital Discharge instructions [...] a primary care provider, you can contact [facility] and ask about being established for primary care services. If you require specialist follow up, such as with an orthopedic physician, post anesthesia care unit nurse, urologist, or other medical specialty, you should [...] should first take Tylenol or ibuprofen available [id number]. Medications, if prescribed to treat pain from [...] or if you have any other concernsOhiohealth Dublin [facility] Hospital Ctr Work Phone: Hospital Discharge instructions [...] the next 24 hours and then rotate [facility] Work Phone: Hospital Discharge instructions Additional Instructions Avoid pressure or friction to incision sites. No driving if taking narcotic pain medicationOhiohealth Dublin [facility] Work Phone: Reason for referral (narrative)* Diagnostic Procedure Only (Routine) - ClosedSpecialtyDiagnoses / ProceduresReferred By Contact Referred To ContactXR IMAGING Diagnoses Pain in left foot Procedures XR FOOT GENERAL 3V AP/LAT/OBL LEFT RADEX FOOT COMPLETE MINIMUM 3 VIEWS Eulalia Fuentes DPM [address] [place] [address] [place] [address] Referral IDStatusReasonStart DateExpiration DateVisits RequestedVisits [id number] Auto-Generated Referral / [facility] for referral (narrative)* Consultation (Routine) - AuthorizedSpecialtyDiagnoses / ProceduresReferred By ContactReferred To ContactCardiology Diagnoses Primary hypertension Procedures Follow Up In Cardiology Krystal Koehler MD [address] [place] [phone] Krystal Koehler MD [address] [place] [address] Referral IDStatusReasonStart DateExpiration DateVisits RequestedVisits [id number] [facility] Work Phone: Reason for referral (narrative)No reason for referral information availableJ.W. [facility] Work Phone: Reason for visit Narrative* Diagnostic Procedure Only (Routine) - ClosedSpecialtyDiagnoses / ProceduresReferred By ContactReferred To ContactXR IMAGING Diagnoses Pain in left foot Procedures XR FOOT GENERAL 3V AP/LAT/OBL LEFT RADEX FOOT COMPLETE MINIMUM 3 VIEWS Eulalia Fuentes DPM [address] [place] [address] [place] [address] Referral IDStatusReasonStart DateExpiration DateVisits RequestedVisits [id number] Auto-Generated Referral [facility] Chief Complaint and Reason for Visit Chief Complaint bump under rt arm pi t rt side facial/mouth pain Chief Complaint bump under rt arm pi t rt side facial/mouth pain Lower back injury_[facility] [place] Chief Complaint bump under rt arm pi t rt side facial/mouth pain Lower back injury_[facility] [place] E11.9 Chief Complaint rt side facial/mouth pain Lower back injury_[facility] [place] E11.9 Right Axillary Abscess Chief Complaint rt side facial/mouth pain Lower back injury_[facility] [place] E11.9 Right Axillary Abscess Right Axillary Abscess Chief Complaint rt side facial/mouth pain Lower back injury_[facility] [place] E11.9 Right Axillary Abscess Right Axillary Abscess Right Axillary Abscess Chief Complaint Lower back injury_IC [facility] [place] E11.9 Right Axillary Abscess Right Axillary [...] diabetes mellitus with diabetic polyneuropathy, unspecified whether prison insulin use (HCC) BMI 39.0-39.9,adult Difficulty walking Eversion deformity of foot, left Painful scar Procedures CONSULT TO PHYSICAL THERAPY PHYSICAL THERAPY EVALUATION HIGH COMPLEX 45 MINS Eulalia Fuentes DPM [address] [place] [address] [facility] [place] [address] [place] [address] Referral IDStatusReasonStart DateExpiration DateVisits RequestedVisits [id number] Auto-Generated Referral [id number] / ProceduresReferred By ContactReferred To Contact Diagnoses Primary hypertension Krystal Koehler MD [address] [place] [address] Referral IDStatusReasonStart DateExpiration DateVisits RequestedVisits [id number] / ProceduresReferred By ContactReferred To Contact Diagnoses Diabetes mellitus type II, non insulin dependent (Multi) Hyperlipidemia, unspecified hyperlipidemia type Krystal Koehler MD [address] [place] [address] Referral IDStatusReasonStart DateExpiration DateVisits RequestedVisits [id number] / ProceduresReferred By ContactReferred To ContactCardiology Diagnoses Primary hypertension Procedures Follow Up In Cardiology Krystal Koehler MD [address] [place] [address] Krystal Koehler MD [address] [place] [address] Referral IDStatusReasonStart DateExpiration DateVisits RequestedVisits [id number]/29/[id number]/[id number] Additional Source Comments Care Teams (unrecognized sec [...] Care Provider Activ e Radha Stephens , SUPER[employer]OR [employer]-BCEmeharpreet ProviderActive Team Status: Inactive Member Role Status Dates Ga Marques PA-C Primary Care Provider Activ e Javier Carvajal ProviderActive Team Status: Inactive Member Role Status Dates Ga Marques PA-C Primary Care Provider Activ e Germaine Dumont ProviderActive Team Status: Inactive Member Role Status Dates NON STAFF Primary Care Provider Active Efrain Canas ProviderActiveTeam MemberRelationshipSpecialty Start DateEnd Date Jamia Johansen MD [address] [place] [address] ReferringOB/GYN01/12/20 Team Status: Inactive Member Role Status Dates Ga Marques PA-C Primary Care Provider, Atte nding Provider Active Team MemberRelationshipSpecialtyStart DateEnd Date Jamia Johansen MD [address] [place] [address] ReferringOB/GYN01/12/20 Team Status: Inactive Member Role Status [...] MemberRelationshipSpecialtyStart DateEnd Date Ga Marques PA-C [address] [place] [address] PCP - General02/11/23 Rigoberto Montano DO [address] [place] [address] Physicians [facility] [address], [place] [address] Referring PhysicianObstetrics and Gynecology03/23/24Team MemberRelationship SpecialtyStart DateEnd Date Jamia Johansen MD ReferringOb/Gyn2/18/20 Team Status: Active Member Role Status Dates PHYSICIAN NO FAMILY Primary Care Provider Active Team Status: Inactive Member Role Status Dates Rigoberto Montano Attending Provider Active Start: [facility] 2023 End: January 24HYSICIAN NO [...] DateEnd Date Rigoberto Montano DO [address] [facility] [address], [place] [address] Referring PhysicianObstetrics and Gynecology03/23/24Team MemberRelationship SpecialtyStart DateEnd Date Ga Marques PA-C [address] [place], [place] [id number] Primary Care ProviderFamily Medicine11/25/22Team MemberRelationshipSpecialtyStart DateEnd Date Ga Marques PA-C [address] [place], [place] [id number] Primary Care ProviderFamily Medicine11/25/22Team MemberRelationshipSpecialtyStart DateEnd Date Ga Marques PA-C [address] [place], [place] [id number] Primary Care ProviderFamily Medicine11/25/22Team MemberRelationshipSpecialtyStart DateEnd Date Jamia Johansen MD ReferringOb/Gyn01/12/20Team MemberRelationshipSpecialtyStart DateEnd Date Jamia Johansen MD ReferringOb/Gyn/Team MemberRelationshipSpecialtyStart DateEnd Date Rigoberto Montano DO [address] [facility] [address], [place] [address] Referring PhysicianObstetrics and Gynecology03/23/24 Team Status: Inactive [...] End: April 15, 2025Team MemberRelationshipSpecialtyStart DateEnd Date Riogberto Montano DO [address] [place] [address] [facility]11/25/24 Ga Marques PA-C [address] [place] [address] Primary Care ProviderMountain Lakes Medical Center11/25/22Team MemberRelationshipSpecialtyStart DateEnd Date Rigoberto Montano DO [address] [place] [address] PCP [facility]11/25/24 Ga Marques PA-C [address] [place] [address] Primary Care ProviderFalowell general hospital Medicine11/25/22Team MemberRelationshipSpecialtyStart DateEnd Date Lynn Montanoy, DO [facility] [place] [address] PCP [facility]11/25/24 Ga Marques PA-C [address] [place] [address] Primary Care ProviderMountain Lakes Medical Center11/25/22Team MemberRelationshipSpecialtyStart DateEnd Date Rigoberto Montano, DO [address] [place] [address] PCP [facility]11/25/24 Ga Marques PA-C [address] [place] [address] Primary Care ProviderFaSouth Georgia Medical Center [facility]11/25/22 Team Status: Inactive Member Role Status Dates PHYSICIAN NO FAMILY Primary Care Provider Active Start: May 06, 2025 End: May 06, 2025Kelsea Joseph APRN INTERACTIVE DESIGNER-CAttending ProviderActiveStart: May 06, 2025 End: May 06, [...] 2025 End: June 16, 2025Kelsea Joseph APRN INTERACTIVE DESIGNER-CAttending ProviderActiveStart: June 16, 2025 End: June 16, 2025Team MemberRelationshipSpecialtyStart DateEnd Date Rigoberto Montano, DO [address] [place] [address] PCP - [facility]11/25/24 Unallocated, [place] ProviderMD [facility] [place] [address] PCP - [facility]06/18/25 Ga Marques PA-C [address] [place] [address] Primary Care ProviderMountain Lakes Medical Center11/25/22Team MemberRelationshipSpecialtyStart DateEnd Date Rigoberto Montano, DO [address] [place] [address] PCP - [facility]11/25/24 Unallocated, Dudley Cook MD [address] [place] [address] PCP - [facility]06/18/25 Ga Marques PA-C [address] [place] [address] [facility] ProviderB[facility] Medicine11/25/22 Team Status: Inactive Member Role Status Dates PHYSICIAN NO FAMILY Primary Care Provider Active Start: June 28, 2025 End: June 28Javier Pan ProviderActiveStart: June 28, 2025 End: June 28, 2025 Team Status: Active Member Role Status Dates PHYSICIAN NO FAMILY Primary Care Provider Active Start: June 28, 2025 Kelsea Joseph APRN INTERACTIVE DESIGNER-CAttending ProviderActiveStart: June 28, 2025 Team Status: Inactive Member Role Status Dates PHYSICIAN NO FAMILY Primary Care Provider Active Start: June 28, 2025 End: June 28, 2025Kelsea Joseph APRN INTERACTIVE DESIGNER-CAttending ProviderActiveStart: June 28, 2025 End: June 28, 2025Team MemberRelationshipSpecialtyStart DateEnd Date Rigoberto Montano DO [address] [place] [address] PCP - [facility]11/25/24 Unallocated, Noms Provider, [address] [place] [address] [facility] - [facility] Ga Marques PA-C [address] [place] [address] Primary Care ProviderFaSouth [facility]11/25/22Team MemberRelationshipSpecialtyStart DateEnd Date Krystal Koehler MD [address] [facility] [address] [place] [address] PCP - [facility]03/25/25 Krystal Koehler MD [address] [place] [address] 2, [facility] [address] [place] [address] PCP - GeneralCardiology07/28/25 Rigoberto Montano DO [address] [facility] Physicians [facility] 1, [place] [address] Referring PhysicianObstetrics and Gynecology03/23/24Team MemberRelationship SpecialtyStart DateEnd Date Rigoberto Montano DO [address] [place] [address] PCP - [facility]11/25/24 Unallocated, Dudley ProviderMD [address] [place] [address] PCP - [facility]06/18/25 Ga Marques PA-C [address] [place] [address] Primary [facility]11/25/22Te MemberRelationshipSpecialtyStart DateEnd Date Rigoberto Montano, DO [facility] [address] [facility] [place] [address] PCP - [facility]11/25/24 Unallocated, Dudley Cook MD [address] [place] [address] PCP - [facility]06/18/25 Ga Marques PA-C [address] [place] [address] Primary Care ProviderMountain Lakes [facility] Center11/25/22Team MemberRelationshipSpecialtyStart DateEnd Date Jamia Johansen MD ReferringOb/Gyn2/Team MemberRelationshipSpecialtyStart DateEnd Date Jamia Johansen MD ReferringOb/Gyn2/Team MemberRelationshipSpecialtyStart DateEnd Date Rigoberto Montano, DO [facility] [place] [address] PCP - [facility]11/25/24 Unallocated, Noms Joyce, [address] [place], [place] [id number] PCP - [facility]06/18/25 Ga Marques PA-C [address] [place] [address] Primary Care ProviderFamily Medicine11/25/22 Goals [...] or prosecute any alcohol or drug abuse patient.[facility] CenterIn the event this information is protected by the Federal Confidentiality of Alcohol and Drug Abuse Patient Records regulations: The Federal rules restrict any use of the information to criminally investigate or prosecute any alcohol or drug abuse patient.[facility] CenterIn the event this information is protected by the Federal Confidentiality of Alcohol and Drug Abuse Patient Records regulations: The Federal rules restrict any use of the information to criminally investigate or prosecute any alcohol or drug abuse patient.[facility] CenterIn the event this information is protected by the Federal Confidentiality of Alcohol and Drug Abuse Patient Records regulations: The Federal rules restrict any use of the information to criminally investigate or prosecute any alcohol or drug abuse patient.[facility] CenterIn the event this information is protected by the Federal Confidentiality of Alcohol and Drug Abuse Patient Records regulations: The Federal rules restrict any use of the information to criminally investigate or prosecute any alcohol or drug abuse patient.[facility] CenterIn the event this information is protected by the Federal Confidentiality of Alcohol and Drug Abuse Patient Records regulations: The Federal rules restrict any use of the information to criminally investigate or prosecute any alcohol or drug abuse patient.[facility] CenterIn the event this information is protected by the Federal Confidentiality of Alcohol and Drug Abuse Patient Records regulations: The Federal rules restrict any use of the information to criminally investigate or prosecute any alcohol or drug abuse patient.[facility] CenterIn the event this information is protected by the Federal Confidentiality of Alcohol and Drug Abuse Patient Records regulations: The Federal rules restrict any use of the information to criminally investigate or prosecute any alcohol or drug abuse patient.[facility] CenterIn the event this information is protected by the Federal Confidentiality of Alcohol and Drug Abuse Patient Records regulations: The Federal rules restrict any use of the information to criminally investigate or prosecute any alcohol or drug abuse patient.[facility] CenterIn the event this information is protected by the Federal Confidentiality of Alcohol and Drug Abuse Patient Records regulations: The Federal rules restrict any use of the information to criminally investigate or prosecute any alcohol or drug abuse patient.[facility] CenterIn the event this information is protected by the Federal Confidentiality of Alcohol and Drug Abuse Patient Records regulations: The Federal rules restrict any use of the information to criminally investigate or prosecute any alcohol or drug abuse patient.[facility] CenterIn the event this information is protected by the Federal Confidentiality of Alcohol and Drug Abuse Patient Records regulations: The Federal rules restrict any use of the information to criminally investigate or prosecute any alcohol or drug abuse patient.[facility] CenterIn the event this information is protected by the Federal Confidentiality of Alcohol and Drug Abuse Patient Records regulations: The Federal rules restrict any use of the information to criminally investigate or prosecute any alcohol or drug abuse patient.[facility] CenterIn the event this information is protected by the Federal Confidentiality of Alcohol and Drug Abuse Patient Records regulations: The Federal rules restrict any use of the information to criminally investigate or prosecute any alcohol or drug abuse patient.[facility] CenterIn the event this information is protected by the Federal Confidentiality of Alcohol and Drug Abuse Patient Records regulations: The Federal rules restrict any use of the information to criminally investigate or prosecute any alcohol or drug abuse patient.[facility] CenterIn the event this information is protected by the Federal Confidentiality of Alcohol and Drug Abuse Patient Records regulations: The Federal rules restrict any use of the information to criminally investigate or prosecute any alcohol or drug abuse patient.[facility] CenterIn the event this information is protected by the Federal Confidentiality of Alcohol and Drug Abuse Patient Records regulations: The Federal rules restrict any use of the information to criminally investigate or prosecute any alcohol or drug abuse patient.[facility] CenterIn the event this information is protected by the Federal Confidentiality of Alcohol and Drug Abuse Patient Records regulations: The Federal rules restrict any use of the information to criminally investigate or prosecute any alcohol or drug abuse patient.[facility] CenterIn the event this information is protected by the Federal Confidentiality of Alcohol and Drug Abuse Patient Records regulations: The Federal rules restrict any use of the information to criminally investigate or prosecute any alcohol or drug abuse patient.[facility] CenterIn the event this information is protected by the Federal Confidentiality of Alcohol and Drug Abuse Patient Records regulations: The Federal rules restrict any use of the information to criminally investigate or prosecute any alcohol or drug abuse patient.[facility] CenterIn the event this information is protected by the Federal Confidentiality of Alcohol and Drug Abuse Patient Records regulations: The Federal rules restrict any use of the information to criminally investigate or prosecute any alcohol or drug abuse patient.[facility] CenterIn the event this information is protected by the Federal Confidentiality of Alcohol and Drug Abuse Patient Records regulations: The Federal rules restrict any use of the information to criminally investigate or prosecute any alcohol or drug abuse patient.[facility] CenterIn the event this information is protected by the Federal Confidentiality of Alcohol and Drug Abuse Patient Records regulations: The Federal rules restrict any use of the information to criminally investigate or prosecute any alcohol or drug abuse patient.[facility] CenterIn the event this information is protected by the Federal Confidentiality of Alcohol and Drug Abuse Patient Records regulations: The Federal rules restrict any use of the information to criminally investigate or prosecute any alcohol or drug abuse patient.[facility] CenterIn the event this information is protected by the Federal Confidentiality of Alcohol and Drug Abuse Patient Records regulations: The Federal rules restrict any use of the information to criminally investigate or prosecute any alcohol or drug abuse patient.[facility] CenterIn the event this information is protected by the Federal Confidentiality of Alcohol and Drug Abuse Patient Records regulations: The Federal rules restrict any use of the information to criminally investigate or prosecute any alcohol or drug abuse patient.[facility] CenterIn the event this information is protected by the Federal Confidentiality of Alcohol and Drug Abuse Patient Records regulations: The Federal rules restrict any use of the information to criminally investigate or prosecute any alcohol or drug abuse patient.[facility] CenterIn the event this information is protected by the Federal Confidentiality of Alcohol and Drug Abuse Patient Records regulations: The Federal rules restrict any use of the information to criminally investigate or prosecute any alcohol or drug abuse patient.[facility] CenterIn the event this information is protected by the Federal Confidentiality of Alcohol and Drug Abuse Patient Records regulations: The Federal rules restrict any use of the information to criminally investigate or prosecute any alcohol or drug abuse patient.[facility] CenterIn the event this information is protected by the Federal Confidentiality of Alcohol and Drug Abuse Patient Records regulations: The Federal rules restrict any use of the information to criminally investigate or prosecute any alcohol or drug abuse patient.[facility] CenterIn the event this information is protected by the Federal Confidentiality of Alcohol and Drug Abuse Patient Records regulations: The Federal rules restrict any use of the information to criminally investigate or prosecute any alcohol or drug abuse patient.[facility] CenterIn the event this information is protected by the Federal Confidentiality of Alcohol and Drug Abuse Patient Records regulations: The Federal rules restrict any use of the information to criminally investigate or prosecute any alcohol or drug abuse patient.[facility] CenterIn the event this information is protected by the Federal Confidentiality of Alcohol and Drug Abuse Patient Records regulations: The Federal rules restrict any use of the information to criminally investigate or prosecute any alcohol or drug abuse patient.[facility] CenterIn the event this information is protected by the Federal Confidentiality of Alcohol and Drug Abuse Patient Records regulations: The Federal rules restrict any use of the information to criminally investigate or prosecute any alcohol or drug abuse patient.[facility] CenterIn the event this information is protected by the Federal Confidentiality of Alcohol and Drug Abuse Patient Records regulations: The Federal rules restrict any use of the information to criminally investigate or prosecute any alcohol or drug abuse patient.[facility] CenterIn the event this information is protected by the Federal Confidentiality of Alcohol and Drug Abuse Patient Records regulations: The Federal rules restrict any use of the information to criminally investigate or prosecute any alcohol or drug abuse patient.[facility] CenterIn the event this information is protected by the Federal Confidentiality of Alcohol and Drug Abuse Patient Records regulations: The Federal rules restrict any use of the information to criminally investigate or prosecute any alcohol or drug abuse patient.[facility] CenterIn the event this information is protected by the Federal Confidentiality of Alcohol and Drug Abuse Patient Records regulations: The Federal rules restrict any use of the information to criminally investigate or prosecute any alcohol or drug abuse patient.[facility] CenterIn the event this information is protected by the Federal Confidentiality of Alcohol and Drug Abuse Patient Records regulations: The Federal rules restrict any use of the information to criminally investigate or prosecute any alcohol or drug abuse patient.[facility] Reason for Visit (unrecogniz ed section and content) ReasonCommentsPatient QuestionReasonCommentsEstablished PatientFollow UpPain ReasonCommentsEstablished PatientPainSwellingReasonCommentsRadiology XRReason CommentsSchedule SurgeryReasonCommentsSurgical FollowupReasonCommentsIngrown ToenailEstablished PatientReasonCommentsPT EvalPatient EducationPT Discharge SpecialtyDiagnoses / ProceduresReferred By ContactReferred To ContactREHAB AND SPORTS THERAPY INS Diagnoses Type 2 diabetes mellitus with diabetic polyneuropathy, unspecified whether prison insulin use (HCC) BMI 39.0-39.9,adult Difficulty walking Eversion deformity of foot, left Painful scar Procedures CONSULT TO PHYSICAL THERAPY PHYSICAL THERAPY EVALUATION HIGH COMPLEX 45 MINS Eulalia Fuentes DPM [address] [place] [address] [facility] [place] [address] [place] [address] Referral IDStatusReasonStwinchester DateExpiration DateVisits RequestedVisits [id number] Auto-Generated Referral [id number] UpdatePatient QuestionReasonComments Anesthesia ConsultReasonCommentsAnnual ExamReasonCommentssurgery question and infected toeReasonCommentsEstablished PatientPre-Op VisitReasonCommentsFMLA PaperworkReasonCommentsEstablished PatientPost OpReasonCommentsPatient Update ReasonCommentsPost VyRoskctDvekopohBxnriwezlcJeyzvuMyvuzhetBvspzd-[id number] Diagnoses / ProceduresReferred By ContactReferred To ContactCardiology Diagnoses Primary hypertension Procedures Follow Up In Cardiology Krystal Koehler MD [address] [place] [address] Krystal Koehler MD [address] [address] Referral IDStatusReasonStart DateExpiration DateVisits RequestedVisits [id number]-to VisitReason CommentsEstablished PatientFollow UpPainNewReasonCommentsFollow-up6 months SpecialtyDiagnoses / ProceduresReferred By ContactReferred To ContactCardiology Diagnoses Primary hypertension Procedures Follow Up In Cardiology Krystal Koehler MD [address] [facility] [address] [place] [address] Phone: tel: fax: Krystal Koehler MD [address] [facility] [address] [place] [address] Phone: tel: fax: Referral IDStatusReasonStart DateExpiration DateVisits RequestedVisits [id number]/[id number]/[id number] PainPt present today for pelvic and lower back pain. Pt complains of having frequent yeast infections. (Itching)ReasonCommentsWell Women VisitReasonCommentsFollow-up Lt breast wound- past ' pt- Also has a spot on Left buttock and Right hip. Has gone to the ER several times and they have referred her back to us for evaluation.[id number] po Exc. & drain Lt breast, Lt buttock, Rt back massesReasonCommentsShortness of BreathFlu SymptomsReasonCommentsConsultPt present today to discuss Left ovary pain.ReasonCommentsEstablished PatientFollow Up INFORMATION SOURCE (unrecogn ized section and content) DATE CREATED AUTHOR 02/12/2023 [employer] DATE CREATED AUTHOR AUTHOR'S ORGANIZ ATION 03/29/2023 [facility] DATE CREATED AUTHOR AUTHOR'S ORGANIZ ATION 06/14/2023 [facility] DATE CREATED AUTHOR AUTHOR'S ORGANIZ ATION 05/27/2024 [facility] DATE CREATED AUTHOR AUTHOR'S ORGANIZ ATION 03/23/2025 [facility] DATE CREATED AUTHOR AUTHOR'S ORGANIZ ATION 07/05/2025 [facility] DATE CREATED AUTHOR AUTHOR'S ORGANIZ ATION 07/30/2025 [facility] DATE CREATED AUTHOR AUTHOR'S ORGANIZ ATION 08/02/2025 [facility] DATE CREATED AUTHOR AUTHOR'S ORGANIZ ATION 08/07/2025 [facility] DATE CREATED AUTHOR AUTHOR'S ORGANIZ ATION 08/31/2025 [facility] DATE CREATED AUTHOR AUTHOR'S ORGANIZ ATION 09/27/2025 [facility] Scheduled Active and Recently Administ ered Medications [...] BE BASED ON THE PRIMARY CLINICAL RECORDS. [employer] provides no warranty or guarantee of the accuracy or completeness of information in this document.
[2025-10-29 09:12] LABS: Hematocrit 39.4 % (36.0-48.0); Hemoglobin 13.5 g/dL (12.0-16.0); Immature Granulocytes Abs Auto 0.03 10^3/uL (0.00-0.03); Immature Granulocytes Pct Auto 0.3 % (0.0-0.5); Lymphocytes Absolute Auto 4.1 10^3/uL (1.2-3.8); Mean Corpuscular HGB Conc 34.3 g/dL (29.9-35.2); Mean Corpuscular Hemoglobin 31.5 pg (26.7-34.0); Mean Corpuscular Volume 92.1 fL (81.0-99.0); Platelet Count 383 10^3/uL (150-450); Red Blood Count 4.28 10^6/uL (4.20-5.40); White Blood Count 9.7 10^3/uL (4.0-11.0)
--- NOTE | 2025-10-29 12:02 | P.ON_ITS ---
Brief Operative Note Date of procedure: 10/29/25 Pre-op diagnosis general: pelvic pain, lt ovarian cysts Post-op diagnosis: same as pre-op Procedure: NAME OF PROCEDURE: robotic assisted Laparoscopic lt oopherectomy PROCEDURE: A wet sponge stick was placed into the patient's vagina. Attention was then turned to the patient's abdomen, where a scalpel was used to make a small infraumbilical incision. The S retractors were then used to dissect the underlying layers until the fascia could be seen. The fascia was then grasped with Jorge clamps and tented up. A knife was then used to make a small incision to the fascia. The muscle was identified, at that time two sutures of #0 Vicryl on a GI needlewas then used and placed through the fascia. The peritoneum was then identified and entered bluntly. The 10-4 Irma was then placed into the patient's abdomen. This was confirmed with direct visualization of the bowel, using the laparoscope. The patient's abdomen was then insufflated using approximately 4 liters of CO2 gas. Survey of the patient's abdomen demonstrated normal appearing ovaries, uterus and tubes. A second and third lateral robotic ports, which was 8mm in size, was then placed laterally after incision was made in the skin under direct visualization. the robotic arms were engaged. The patient's has absent tubes and uterus and rt ovary, lt ovary normal in appereance, the vessel sealer was used to come across the lt infundibular pelvic ligament, excellent hemostasis the lt ovary was removed using the endocath. s? Excellent hemostasis was noted. The lateral ports were then moved under direct visualization with excellent hemostasis. The abdomen was deinsufflated. All instruments were removed from the patient's abdomen. The fascia was closed using the #0 Vicryl on GI needle. The skin was closed using 4-0 Vicryl subcuticularly. All instruments were removed from the patient's vagina as well. The patient was taken out of the dorsal lithotomy position and placed in the supine position and taken to recovery in stable condition. Sponge, lap and needle counts were correct x2. ??? Anesthesia: ERIK Surgeon: Rigoberto Montano Production Supervisor Trainee: Cari Das Estimated blood loss (mL): 5 Pathology: other (lt ovary) Condition: stable Disposition: PACU Urinary Catheter Management Urinary Catheter Management Urethral: Cath placed during this visit: no
[2025-10-29] MEDS: HYDROCODONE/ACET 5-325 MG TABLET 1 TAB PO (13:15)
--- NOTE | 2025-10-29 15:37 | PC.NURSE ---
patient in stable condition sitting here waiting on her ride due to restaurant delivery driver cancelled on her at the last minute
--- NOTE | 2025-10-29 15:39 | PC.NURSE ---
[facility] her ride. 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 Spoke to Norma Wallace for permission for patient to await her ride over on med surg and approved as long as staff on med surg was ok with it and all were ok. Patient in stable condition sitting in wheelchair in room 218 at 1543
== END 2025-10-29 15:33 | disposition home or self-care (01) ==
PROVIDERS: Visit Provider Obstetrics & Gynecology
PROC: (CPT 840; principal; 2025-10-29 10:10)
DX: N83.202 Unspecified ovarian cyst, left side (principal); R10.20 Pelvic and perineal pain unspecified side; N94.89 Other specified conditions associated with female genital organs and menstrual cycle; F17.210 Nicotine dependence, cigarettes, uncomplicated; G47.33 Obstructive sleep apnea (adult) (pediatric); Z90.49 Acquired absence of other specified parts of digestive tract; Z98.51 Tubal ligation status; J45.909 Unspecified asthma, uncomplicated; E78.5 Hyperlipidemia, unspecified; M79.7 Fibromyalgia; K21.9 Gastro-esophageal reflux disease without esophagitis; E11.9 Type 2 diabetes mellitus without complications; Z79.84 Long term (current) use of oral hypoglycemic drugs; Z79.85 Long-term (current) use of injectable non-insulin antidiabetic drugs
CPT/HCPCS: 58661; 36415; 82948; 84702; 85025; 88305; J1100; J1171; J1200; J2250; J2405; J2704; J3010